=== PATIENT | female | born 1945 | race Caucasian/White ===

== ENCOUNTER 2020-04-08 09:17 | Inpatient (IN) | payer OTHER ==
[2020-04-08] MEDS ORDERED: SODIUM CHLORIDE 1,000 ML IV STA ×2 (09:29→12:26)
--- NOTE | 2020-04-08 09:40 | PDOC ---
History of Present Illness - General Chief Complaint: Altered Mental Status Stated Complaint: UNRESPONSIVE Time Seen by Provider: 04/08/20 09:33 - History of Present Illness Initial Comments: Limited 2/2 patient clinical condition. Slime Mcadams is a 74 y/o female with PMH significant for ESRD on dialysis (), a-fib, COPD, hypothyroidism, ?bipolar, ?schizoaffective, BIBEMS today [facility]. Unsure of when she was last seen well. She went to dialysis on and was at her baseline. Seen at this facility night s/p fall. CT head/neck/pelvis was wnl. Past History - Medical History Allergies/Adverse Reactions: Allergies Allergy/AdvReac Type Severity Reaction Status Date / Time ciprofloxacin Allergy Verified 04/08/20 09:39 denosumab Allergy Verified 04/08/20 09:39 gabapentin Allergy Verified 04/08/20 09:39 levofloxacin Allergy Verified 04/08/20 09:39 NSAIDS (Non-Steroidal Allergy Verified 04/08/20 09:39 Anti-Inflamma sulfamethoxazole Allergy Verified 04/08/20 09:39 trimethoprim Allergy Verified 04/08/20 09:39 tape AdvReac Uncoded 04/08/20 09:39 Home Medications: Ambulatory Orders Acetaminophen [Non-Aspirin Extra Strength] 1,000 mg PO BID 04/08/20 Amlodipine Besylate [Norvasc -] 10 mg PO DAILY 04/08/20 Aripiprazole 30 mg PO DAILY 04/08/20 Calcium Acetate 2 tab PO DAILY 04/08/20 Carbamazepine [Carbamazepine ER] 300 mg PO BID 04/08/20 Cyclobenzaprine HCl 2 tab PO DAILY 04/08/20 Febuxostat [Uloric -] 80 mg PO DAILY 04/08/20 Furosemide 80 mg PO DAILY 04/08/20 Multivitamin 1 each PO DAILY 04/08/20 Pantoprazole Sodium [Protonix] 40 mg PO DAILY 04/08/20 Pramipexole Di-HCl [Mirapex] 0.5 mg PO TID 04/08/20 Pravastatin Sodium [Pravachol (Nf)] 40 mg PO HS 04/08/20 Quetiapine Fumarate [Quetiapine Fumarate ER] 200 mg PO DAILY 04/08/20 Quetiapine Fumarate [Seroquel -] 100 mg PO DAILY 04/08/20 Quetiapine Fumarate [Seroquel -] 400 mg PO HS 04/08/20 Sevelamer Carbonate 800 mg PO DAILY 04/08/20 hydrOXYzine PAMOATE [Vistaril -] 50 mg PO TID 04/08/20 propRANOLol HCL [Propranolol HCl ER] 120 mg PO BID 04/08/20 Cancer: Yes Cardiac Disorders: Yes CVA: Yes COPD: Yes CHF: Yes HTN: Yes Hypercholesterolemia: Yes - Reproductive History Is Patient Now?: No - Immunization History Immunization Up to Date: No - Psycho-Social/Smoking History Smoking History: Unknown if ever smoked Have you smoked in the past 12 months: No - Substance Abuse Hx (Audit-C & DAST Scrn) In the last yr the pt used illegal drug/Rx for NonMed reason: No Score: Yes response is considered Positive: 0 Screen Result (Positive result requires Nsg. DAST-10): Negative Review of Systems - Review of Systems Able to Perform ROS?: No (AMS, clinical condition) *Physical Exam - Vital Signs Last Vital Signs Temp Pulse Resp BP Pulse Ox 95.8 F L 16 L 75 H 126/90 04/08/20 09:24 04/08/20 09:24 04/08/20 09:24 04/08/20 09:24 - Physical Exam GENERAL: Arousable to painful stimuli, in no obvious distress HEAD: No signs of trauma, normocephalic, atraumatic, no racoon's eyes or sky signs. EYES: PERRLA, sclera anicteric, conjunctiva clear_ ENT: nares patent, oropharynx clear without exudates. No uvular deviation. Moist mucosa_ NECK: Normal ROM, supple, no lymphadenopathy, JVD, or masses. No obvious neck trauma. LUNGS: No distress, diffuse wheezes in bilateral lung connell. HEART: Regular rate and rhythm, normal S1 and S2, no murmurs appreciated, peripheral pulses normal and equal bilaterally._ ABDOMEN: Soft, obese, nontender. No guarding, no rebound. No masses_ EXTREMITIES: Large ecchymosis overlying left hip. NEUROLOGICAL: Unable to assess SKIN: Warm, Dry ED Treatment Course - LABORATORY CBC & Chemistry Diagram: 04/09/20 02:42 04/08/20 09:30 Medical Decision Making - Medical Decision Making 04/08/20 09:40 74F on dialysis, hx of a-fib, BIBEMS today for altered mental status and lethargy. -cbc, cmp -ekg, trop, cxr -CT head/neck -CT chest/abd/pelv -lactic -tsh -coags -abg 04/08/20 10:11 EKG shows 71 bpm, a-fib, no axis deviation, QRS 96, QTc 497, no ST elevation/depression. Prior EKG 04/07/2020 reviewed, no significant interval change. 04/08/20 10:26 D/w [place] Pending sale to [facility]. Left arm is safe to use for access. Last seen well at 7am. Altered around 8:45am. [facility] ([phone]) 04/08/20 11:27 Labs reviewed. Will transfuse 1 u pRBC Laboratory Last Values WBC 6.4 K/mm3 (4.0-10.0) 04/08/20 09:30 RBC 1.69 M/mm3 (3.60-5.2) L 04/08/20 09:30 Hgb 5.6 GM/dL (10.7-15.3) L* 04/08/20 09:30 Hct 17.5 % (32.4-45.2) L 04/08/20 09:30 MCV 103.8 fl (80-96) H 04/08/20 09:30 MCH 33.1 pg (25.7-33.7) 04/08/20 09:30 MCHC 31.8 g/dl (32.0-36.0) L 04/08/20 09:30 RDW 17.9 % (11.6-15.6) H 04/08/20 09:30 Plt Count 92 K/MM3 (134-434) L 04/08/20 09:30 MPV 11.0 fl (7.5-11.1) 04/08/20 09:30 Absolute Neuts (auto) 5.0 K/mm3 (1.5-8.0) 04/08/20 09:30 Neutrophils % 77.7 % (42.8-82.8) 04/08/20 09:30 Lymphocytes % 10.2 % (8-40) 04/08/20 09:30 Monocytes % 9.4 % (3.8-10.2) 04/08/20 09:30 Eosinophils % 1.7 % (0-4.5) 04/08/20 09:30 Basophils % 1.0 % (0-2.0) 04/08/20 09:30 Nucleated RBC % 0 % (0-0) 04/08/20 09:30 PT with INR 14.50 SEC (9.7-13.0) H 04/08/20 09:30 INR 1.23 (0.83-1.09) H 04/08/20 09:30 PTT (Actin FS) 29.9 SECONDS (25.2-36.5) 04/08/20 09:30 Anticoagulation Therapy No Result Required. 04/08/20 09:30 Puncture Site No Result Required. 04/08/20 09:30 Patient Temperature No Result Required. 04/08/20 09:30 ABG pH 7.386 (7.350-7.450) 04/08/20 09:30 ABG pCO2 42.50 mmHg (35-45) 04/08/20 09:30 ABG pO2 87.0 mmHg (80-100) 04/08/20 09:30 ABG HCO3 24.9 mmol/L (22-27) 04/08/20 09:30 ABG O2 Sat (Measured) 96.5 mmHg (95-98) 04/08/20 09:30 ABG O2 Content No Result Required. 04/08/20 09:30 ABG Base Excess -0.1 mmol/L (-2-2) 04/08/20 09:30 Sean Test No Result Required. 04/08/20 09:30 Patient On Oxygen No Result Required. 04/08/20 09:30 O2 Delivery Device No Result Required. 04/08/20 09:30 Oxygen Flow Rate No Result Required. 04/08/20 09:30 Vent Mode No Result Required. 04/08/20 09:30 Vent Rate No Result Required. 04/08/20 09:30 Mechanical Rate No Result Required. 04/08/20 09:30 PEEP No Result Required. 04/08/20 09:30 Pressure Support Vent No Result Required. 04/08/20 09:30 Sodium 138 mmol/L (136-145) 04/08/20 09:30 Potassium 4.0 mmol/L (3.5-5.1) 04/08/20 09:30 Chloride 102 mmol/L (98-107) 04/08/20 09:30 Carbon Dioxide 29 mmol/L (21-32) 04/08/20 09:30 Anion Gap 8 MMOL/L (8-16) 04/08/20 09:30 BUN 42.9 mg/dL (7-18) H 04/08/20 09:30 Creatinine 6.7 mg/dL (0.55-1.3) H 04/08/20 09:30 Est GFR (CKD-EPI)AfAm 6.54 04/08/20 09:30 Est GFR (CKD-EPI)NonAf 5.64 04/08/20 09:30 Random Glucose 94 mg/dL (74-106) 04/08/20 09:30 Calcium 7.4 mg/dL (8.5-10.1) L 04/08/20 09:30 Total Bilirubin 1.0 mg/dL (0.2-1) 04/08/20 09:30 AST 14 U/L (15-37) L 04/08/20 09:30 ALT 11 U/L (13-61) L 04/08/20 09:30 Alkaline Phosphatase 64 U/L (45-117) 04/08/20 09:30 Creatine Kinase 45 U/L (26-192) 04/08/20 09:30 Troponin I 0.03 ng/ml (0.00-0.05) 04/08/20 09:30 Total Protein 4.8 g/dl (6.4-8.2) L 04/08/20 09:30 Albumin 2.3 g/dl (3.4-5.0) L 04/08/20 09:30 TSH 4.23 uIU/ml (0.358-3.74) H 04/08/20 09:30 CXR shows no acute intrathoracic pathology and no significant interval change compared to prior on 04/07/2020. 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 Lemus [phone] 04/08/20 13:00 Labs reviewed. Laboratory Last Values WBC 6.3 K/mm3 (4.0-10.0) 04/08/20 11:45 RBC 1.67 M/mm3 (3.60-5.2) L 04/08/20 11:45 Hgb 5.7 GM/dL (10.7-15.3) L* 04/08/20 11:45 Hct 17.6 % (32.4-45.2) L 04/08/20 11:45 MCV 105.5 fl (80-96) H 04/08/20 11:45 MCH 34.2 pg (25.7-33.7) H 04/08/20 11:45 MCHC 32.4 g/dl (32.0-36.0) 04/08/20 11:45 RDW 17.9 % (11.6-15.6) H 04/08/20 11:45 Plt Count 88 K/MM3 (134-434) L 04/08/20 11:45 MPV 11.4 fl (7.5-11.1) H 04/08/20 11:45 Absolute Neuts (auto) 4.6 K/mm3 (1.5-8.0) 04/08/20 11:45 Neutrophils % 72.2 % (42.8-82.8) 04/08/20 11:45 Lymphocytes % 13.1 % (8-40) D 04/08/20 11:45 Monocytes % 12.2 % (3.8-10.2) H 04/08/20 11:45 Eosinophils % 1.7 % (0-4.5) 04/08/20 11:45 Basophils % 0.8 % (0-2.0) 04/08/20 11:45 Nucleated RBC % 1 % (0-0) H 04/08/20 11:45 PT with INR 14.50 SEC (9.7-13.0) H 04/08/20 09:30 INR 1.23 (0.83-1.09) H 04/08/20 09:30 PTT (Actin FS) 29.9 SECONDS (25.2-36.5) 04/08/20 09:30 Anticoagulation Therapy No Result Required. 04/08/20 09:30 Puncture Site No Result Required. 04/08/20 09:30 Patient Temperature No Result Required. 04/08/20 09:30 ABG pH 7.386 (7.350-7.450) 04/08/20 09:30 ABG pCO2 42.50 mmHg (35-45) 04/08/20 09:30 ABG pO2 87.0 mmHg (80-100) 04/08/20 09:30 ABG HCO3 24.9 mmol/L (22-27) 04/08/20 09:30 ABG O2 Sat (Measured) 96.5 mmHg (95-98) 04/08/20 09:30 ABG O2 Content No Result Required. 04/08/20 09:30 ABG Base Excess -0.1 mmol/L (-2-2) 04/08/20 09:30 Sean Test No Result Required. 04/08/20 09:30 Patient On Oxygen No Result Required. 04/08/20 09:30 O2 Delivery Device No Result Required. 04/08/20 09:30 Oxygen Flow Rate No Result Required. 04/08/20 09:30 Vent Mode No Result Required. 04/08/20 09:30 Vent Rate No Result Required. 04/08/20 09:30 Mechanical Rate No Result Required. 04/08/20 09:30 PEEP No Result Required. 04/08/20 09:30 Pressure Support Vent No Result Required. 04/08/20 09:30 Sodium 138 mmol/L (136-145) 04/08/20 09:30 Potassium 4.0 mmol/L (3.5-5.1) 04/08/20 09:30 Chloride 102 mmol/L (98-107) 04/08/20 09:30 Carbon Dioxide 29 mmol/L (21-32) 04/08/20 09:30 Anion Gap 8 MMOL/L (8-16) 04/08/20 09:30 BUN 42.9 mg/dL (7-18) H 04/08/20 09:30 Creatinine 6.7 mg/dL (0.55-1.3) H 04/08/20 09:30 Est GFR (CKD-EPI)AfAm 6.54 04/08/20 09:30 Est GFR (CKD-EPI)NonAf 5.64 04/08/20 09:30 Random Glucose 94 mg/dL (74-106) 04/08/20 09:30 Calcium 7.4 mg/dL (8.5-10.1) L 04/08/20 09:30 Total Bilirubin 1.0 mg/dL (0.2-1) 04/08/20 09:30 AST 14 U/L (15-37) L 04/08/20 09:30 ALT 11 U/L (13-61) L 04/08/20 09:30 Alkaline Phosphatase 64 U/L (45-117) 04/08/20 09:30 Creatine Kinase 45 U/L (26-192) 04/08/20 09:30 Troponin I 0.03 ng/ml (0.00-0.05) 04/08/20 09:30 Total Protein 4.8 g/dl (6.4-8.2) L 04/08/20 09:30 Albumin 2.3 g/dl (3.4-5.0) L 04/08/20 09:30 TSH 4.23 uIU/ml (0.358-3.74) H 04/08/20 09:30 Blood Type O POSITIVE 04/08/20 11:45 Crossmatch See Detail 04/08/20 11:45 04/08/20 15:39 Conrad (brother) [phone] 04/08/20 15:47 D/w [employer] Cecil. Will repeat CBC after transfusion 04/08/20 17:00 Labs reviewed. Laboratory Last Values WBC 8.6 K/mm3 (4.0-10.0) 04/08/20 16:20 RBC 2.10 M/mm3 (3.60-5.2) L 04/08/20 16:20 Hgb 6.9 GM/dL (10.7-15.3) L* 04/08/20 16:20 Hct 20.9 % (32.4-45.2) L D 04/08/20 16:20 MCV 99.3 fl (80-96) H D 04/08/20 16:20 MCH 33.0 pg (25.7-33.7) 04/08/20 16:20 MCHC 33.3 g/dl (32.0-36.0) 04/08/20 16:20 RDW 18.9 % (11.6-15.6) H 04/08/20 16:20 Plt Count 92 K/MM3 (134-434) L 04/08/20 16:20 MPV 11.0 fl (7.5-11.1) 04/08/20 16:20 Absolute Neuts (auto) 6.7 K/mm3 (1.5-8.0) 04/08/20 16:20 Neutrophils % 78.1 % (42.8-82.8) 04/08/20 16:20 Lymphocytes % 9.7 % (8-40) D 04/08/20 16:20 Monocytes % 11.0 % (3.8-10.2) H 04/08/20 16:20 Eosinophils % 0.8 % (0-4.5) 04/08/20 16:20 Basophils % 0.4 % (0-2.0) 04/08/20 16:20 Nucleated RBC % 0 % (0-0) 04/08/20 16:20 Hypochromia 0 04/08/20 11:45 Platelet Estimate Decreased 04/08/20 11:45 Polychromasia 1+ 04/08/20 11:45 Poikilocytosis 1+ 04/08/20 11:45 Anisocytosis 2+ 04/08/20 11:45 Microcytosis 2+ 04/08/20 11:45 Macrocytosis 0 04/08/20 11:45 PT with INR 14.50 SEC (9.7-13.0) H 04/08/20 09:30 INR 1.23 (0.83-1.09) H 04/08/20 09:30 PTT (Actin FS) 29.9 SECONDS (25.2-36.5) 04/08/20 09:30 Anticoagulation Therapy No Result Required. 04/08/20 09:30 Puncture Site No Result Required. 04/08/20 09:30 Patient Temperature No Result Required. 04/08/20 09:30 ABG pH 7.386 (7.350-7.450) 04/08/20 09:30 ABG pCO2 42.50 mmHg (35-45) 04/08/20 09:30 ABG pO2 87.0 mmHg (80-100) 04/08/20 09:30 ABG HCO3 24.9 mmol/L (22-27) 04/08/20 09:30 ABG O2 Sat (Measured) 96.5 mmHg (95-98) 04/08/20 09:30 ABG O2 Content No Result Required. 04/08/20 09:30 ABG Base Excess -0.1 mmol/L (-2-2) 04/08/20 09:30 Sean Test No Result Required. 04/08/20 09:30 Patient On Oxygen No Result Required. 04/08/20 09:30 O2 Delivery Device No Result Required. 04/08/20 09:30 Oxygen Flow Rate No Result Required. 04/08/20 09:30 Vent Mode No Result Required. 04/08/20 09:30 Vent Rate No Result Required. 04/08/20 09:30 Mechanical Rate No Result Required. 04/08/20 09:30 PEEP No Result Required. 04/08/20 09:30 Pressure Support Vent No Result Required. 04/08/20 09:30 Sodium 138 mmol/L (136-145) 04/08/20 09:30 Potassium 4.0 mmol/L (3.5-5.1) 04/08/20 09:30 Chloride 102 mmol/L (98-107) 04/08/20 09:30 Carbon Dioxide 29 mmol/L (21-32) 04/08/20 09:30 Anion Gap 8 MMOL/L (8-16) 04/08/20 09:30 BUN 42.9 mg/dL (7-18) H 04/08/20 09:30 Creatinine 6.7 mg/dL (0.55-1.3) H 04/08/20 09:30 Est GFR (CKD-EPI)AfAm 6.54 04/08/20 09:30 Est GFR (CKD-EPI)NonAf 5.64 04/08/20 09:30 Random Glucose 94 mg/dL (74-106) 04/08/20 09:30 Calcium 7.4 mg/dL (8.5-10.1) L 04/08/20 09:30 Total Bilirubin 1.0 mg/dL (0.2-1) 04/08/20 09:30 AST 14 U/L (15-37) L 04/08/20 09:30 ALT 11 U/L (13-61) L 04/08/20 09:30 Alkaline Phosphatase 64 U/L (45-117) 04/08/20 09:30 Creatine Kinase 45 U/L (26-192) 04/08/20 09:30 Troponin I 0.03 ng/ml (0.00-0.05) 04/08/20 09:30 Total Protein 4.8 g/dl (6.4-8.2) L 04/08/20 09:30 Albumin 2.3 g/dl (3.4-5.0) L 04/08/20 09:30 TSH 4.23 uIU/ml (0.358-3.74) H 04/08/20 09:30 Blood Type O POSITIVE 04/08/20 11:45 Antibody Screen Negative 04/08/20 11:45 Crossmatch See Detail 04/08/20 11:45 04/08/20 18:10 Case d/w [employer] Cecil White and Dr. Melara. Pt will go to ICU. 04/08/20 18:29 CT head negative for acute intracranial pathology. 04/08/20 18:47 CT chest: Scattered atelectasis and fibrotic changes throughout the lungs. No acute lung contusion or pneumothorax. No significant pleural effusions. Cardiomegaly without significant pericardial effusion. Right axillary stent. No acute fracture. Surgical changes in left breast. Moderate kyphosis. CT abdomen and pelvis: Prior gastric bypass surgery. Mild perihepatic fluid. Distended gallbladder with small layering gallstones. Pancreatic atrophy with steatosis. Adrenal glands and spleen are unremarkable. Bilateral renal atrophy with nonobstructing bilateral intrarenal calculi. No ureteral calculi or hydronephrosis. No AAA. Indwelling Tran catheter in the bladder. Rectal catheter. No obvious diverticulitis. No small bowel obstruction or free air. Moderate anasarca. *Moderate hematomas in the left gluteal subcutaneous fat. *9.5 cm x 4.8 cm well-circumscribed fluid collection in the right groin, incompletely visualized. It may represent a hematoma, seroma, or abscess. No acute fracture visualized. Discharge - Discharge Information Problems reviewed: Yes Clinical Impression/Diagnosis: Altered mental status, Anemia Condition: Guarded - Admission Yes - Follow up/Referral - Patient Discharge Instructions - Post Discharge Activity
--- NOTE | 2020-04-08 09:54 | PDOC ---
Documentation entered by Fozia Alvarez SCRIBE, acting as scribe for Lyric Cedillo MD. Lyric Cedillo MD: This documentation has been prepared by the scribe, Fozia Noble SCRIBE, under my direction and personally reviewed by me in its entirety. I confirm that the documentation accurately reflects all work, treatment, procedures, and medical decision making performed by me. Attending Attestation - Resident Resident Name: Bakari Keyes - ED Attending Attestation I have performed the following: I have examined & evaluated the patient, The case was reviewed & discussed with the resident, I agree w/resident's findings & plan, Exceptions are as noted - HPI HPI: 04/08/20 10:09 The patient is a 74 year old female with a significant PMH of ESRD (), afib, COPD, hypothyroidism and schizophrenia who presents to the ED [facility] from [facility] for evaluation of hypotension after found to be altered at [place]. Last known well is unknown. Patient was in the ED yesterday (came in night) for evaluation of "difficulty breathing" and a fall 3 days ago, all CT scans were negative. Patient was seen at baseline on at Dialysis. Patient is a poor historian due to clinial condition, unable to give history. Proxy (brother) - Conrad Mcadams Allergies:Per EMR PCP: Rose - Physicial Exam PE: GENERAL: Awake, appears uncomfortable. Answers some questions, limited responses, however. Appears pale HEAD: No signs of trauma EYES: PERRLA, EOMI, sclera anicteric, conjunctiva clear ENT: Auricles normal inspection, hearing grossly normal, nares patent, oropharynx clear without exudates. Dry mucosa NECK: Normal ROM, supple, no lymphadenopathy, JVD, or masses LUNGS: Breath sounds equal, clear to auscultation bilaterally. No wheezes, and no crackles HEART: Irregularly irregular, normal S1 and S2, no murmurs, rubs or gallops ABDOMEN: Soft, nontender, normoactive bowel sounds. No guarding, no rebound. No masses EXTREMITIES: Normal range of motion, no edema. No clubbing or cyanosis. No cords. +Large ecchymosis to the L thigh and buttock, firm to palpation. R upper arm with palpable firm AVF, no thrill. L upper arm with AVF, +palpable thrill. IV in place to L AC (placed prior to arrival by EMS) NEUROLOGICAL: Cranial nerves II through XII grossly intact. Limited speech. Motor and sensation intact SKIN: Warm, dry, normal turgor, no rashes. - Medical Decision Making 04/08/20 09:52 Pt noted to be hypothermic. Hypotensive on EMS arrival at the [facility]. Sepsis workup initiated. Will check CK due to large ecchymosis to the L thigh, r/o rhabdomyolysis. 04/08/20 16:25 Late entry. Patient with anemia, likely due to large hematoma to the L thigh. Pt has had multiple instances of hypotension. Will add CT chest and a/p in light of recent trauma. As the fall was 4 days ago, unlikely that it will be positive. The hematoma and sepsis are more likely causes of hypotension, however, must r/o free fluid in the chest and abdomen. Bedside FAST is negative. Discharge - Discharge Information Problems reviewed: Yes Clinical Impression/Diagnosis: Altered mental status Qualifiers: Altered mental status type: unspecified Qualified Code(s): R41.82 - Altered mental status, unspecified Anemia Qualifiers: Anemia type: unspecified type Qualified Code(s): D64.9 - Anemia, unspecified Condition: Guarded - Follow up/Referral - Patient Discharge Instructions - Post Discharge Activity
[2020-04-08 10:24] LABS: INR 1.23 (0.83-1.09); PROTHROMBIN TIME (PATIENT) 14.5 SEC (9.7-13.0)
[2020-04-08 10:27] LABS: ACTIVATED PTT 29.9 SECONDS (25.2-36.5)
[2020-04-08 10:44] LABS: ARTERIAL BLD GAS O2 SATURATION 96.5 mmHg (95-98); ARTERIAL BLOOD GAS BASE EXCESS -0.1 mmol/L (-2-2); ARTERIAL BLOOD GAS pH 7.386 (7.350-7.450)
[2020-04-08 10:46] LABS: ALBUMIN 2.3 g/dl (3.4-5.0); BLOOD UREA NITROGEN 42.9 mg/dL (7-18); CALCIUM 7.4 mg/dL (8.5-10.1); CREATININE 6.7 mg/dL (0.55-1.3); TOT PROT 4.8 g/dl (6.4-8.2)
[2020-04-08 11:02] LABS: EOS % 1.7 % (0-4.5); HEMATOCRIT 17.5 % (32.4-45.2); LYMPH % 10.2 % (8-40); MCH 33.1 pg (25.7-33.7); MCHC 31.8 g/dl (32.0-36.0); MEAN CELL VOLUME 103.8 fl (80-96); MONO % 9.4 % (3.8-10.2); NEUT % 77.7 % (42.8-82.8); PLATELET COUNT 92 K/MM3 (134-434); RBC 1.69 M/mm3 (3.60-5.2); RDW 17.9 % (11.6-15.6); WHITE BLOOD COUNT 6.4 K/mm3 (4.0-10.0)
[2020-04-08 11:15] LABS: HEMOGLOBIN 5.6 GM/dL (10.7-15.3)
[2020-04-08 12:09] LABS: BASO % 0.8 % (0-2.0); EOS % 1.7 % (0-4.5); HEMATOCRIT 17.6 % (32.4-45.2); LYMPH % 13.1 % (8-40); MCH 34.2 pg (25.7-33.7); MCHC 32.4 g/dl (32.0-36.0); MEAN CELL VOLUME 105.5 fl (80-96); MEAN PLT VOLUME 11.4 fl (7.5-11.1); MONO % 12.2 % (3.8-10.2); NEUT % 72.2 % (42.8-82.8); PLATELET COUNT 88 K/MM3 (134-434); RBC 1.67 M/mm3 (3.60-5.2); RDW 17.9 % (11.6-15.6); WHITE BLOOD COUNT 6.3 K/mm3 (4.0-10.0)
[2020-04-08 12:25] LABS: HEMOGLOBIN 5.7 GM/dL (10.7-15.3)
[2020-04-08 14:32] LABS: ANISOCYTOSIS 2+; MACROCYTOSIS 0; PLATELET ESTIMATE DECREASED
[2020-04-08 16:50] LABS: BASO % 0.4 % (0-2.0); EOS % 0.8 % (0-4.5); HEMATOCRIT 20.9 % (32.4-45.2); LYMPH % 9.7 % (8-40); MCHC 33.3 g/dl (32.0-36.0); MEAN CELL VOLUME 99.3 fl (80-96); NEUT % 78.1 % (42.8-82.8); PLATELET COUNT 92 K/MM3 (134-434); RDW 18.9 % (11.6-15.6); WHITE BLOOD COUNT 8.6 K/mm3 (4.0-10.0)
[2020-04-08 16:54] LABS: HEMOGLOBIN 6.9 GM/dL (10.7-15.3)
--- NOTE | 2020-04-08 17:19 | CONSULT ---
Consult - text type - Consultation Consultation Note: CCM consult for ICU request Request from Dr Keyes, ER Resident Reason for ICU consult: hypotension and anemia CC: L thigh/hip pain HPI: Briefly Ms Mcadams is a 74 y/o female with PMH significant for ESRD on dialysis (//), a-fib not on anticoagulation, COPD, hypothyroidism, psych hx who ambulates with walker today sent in from [facility] via ambulance for altered mentation. Apparently pt had a mechanical fall on this week, landing on her L side. CT head/neck and pelvis were wnl. She was able to tolerate dialysis on . Today she seemed more lethargic prompting [place] to send her to ER. In ED pt was afebrile, pale, noted to have large ecchymosis on L hip to mid thigh. BP was labile and difficult to determine accuracy (taken on legs due to AVF in both arms) but often in 70/30 range. IV access was obtained and pt given 1 L IVF with some improvement. Hgb was 5.6 (down from unk baseline but pt relates chronic anemia) and confirmed on repeat. There was no hx of melena, BRBPR, hematemesis or other hx for occult bleeding. PRBC ordered and transfused with appropriate bump to 6.9, another unit being ordered. BP cont to be labile but improved and pt mental status improved markedly. She is not in distress, not tachycardic, denies worsening pain, denies SOB or dizziness. Discussed plan with senior resident who agrees that patient can be admitted to floor with plan for another PRBC to be infused. [facility] medicine available for reconsultation if patient worsens, fails to respond to transfusion. Vital Signs Temp 98.3 F 04/08/20 16:45 Pulse 76 04/08/20 16:45 Resp 17 04/08/20 16:45 BP 65/48 L 04/08/20 16:45 Pulse Ox 98 04/08/20 14:11 Intake & Output 04/07/20 04/08/20 04/08/20 23:59 11:59 23:59 Intake Total 1200 1400 Balance 1200 1400 Weight 77.564 kg Intake: IV 1200 1000 Normal Saline - 1,000 ml 1200 @ 1000 mls/hr IV ASDIR STA Rx#:[id number] Normal Saline - 1,000 ml 1000 @ 1000 mls/hr IV ASDIR STA Rx#:[id number] IVPB 50 Packed Cells 350 Other: Height 5 ft 2 in Body Mass Index (BMI) 31.2 Allergies Allergy/AdvReac Type Severity Reaction Status Date / Time ciprofloxacin Allergy Verified 04/08/20 09:39 denosumab Allergy Verified 04/08/20 09:39 gabapentin Allergy Verified 04/08/20 09:39 levofloxacin Allergy Verified 04/08/20 09:39 NSAIDS (Non-Steroidal Allergy Verified 04/08/20 09:39 Anti-Inflamma sulfamethoxazole Allergy Verified 04/08/20 09:39 trimethoprim Allergy Verified 04/08/20 09:39 tape AdvReac Uncoded 04/08/20 09:39 Ambulatory Orders Acetaminophen [Non-Aspirin Extra Strength] 1,000 mg PO BID 04/08/20 Amlodipine Besylate [Norvasc -] 10 mg PO DAILY 04/08/20 Aripiprazole 30 mg PO DAILY 04/08/20 Calcium Acetate 2 tab PO DAILY 04/08/20 Carbamazepine [Carbamazepine ER] 300 mg PO BID 04/08/20 Cyclobenzaprine HCl 2 tab PO DAILY 04/08/20 Febuxostat [Uloric -] 80 mg PO DAILY 04/08/20 Furosemide 80 mg PO DAILY 04/08/20 Multivitamin 1 each PO DAILY 04/08/20 Pantoprazole Sodium [Protonix] 40 mg PO DAILY 04/08/20 Pramipexole Di-HCl [Mirapex] 0.5 mg PO TID 04/08/20 Pravastatin Sodium [Pravachol (Nf)] 40 mg PO HS 04/08/20 Quetiapine Fumarate [Quetiapine Fumarate ER] 200 mg PO DAILY 04/08/20 Quetiapine Fumarate [Seroquel -] 100 mg PO DAILY 04/08/20 Quetiapine Fumarate [Seroquel -] 400 mg PO DAILY 04/08/20 Quetiapine Fumarate [Seroquel -] 800 mg PO HS 04/08/20 Sevelamer Carbonate 800 mg PO DAILY 04/08/20 hydrOXYzine PAMOATE [Vistaril -] 50 mg PO TID 04/08/20 propRANOLol HCL [Propranolol HCl ER] 120 mg PO BID 04/08/20 CBC, BMP 04/08/20 16:20 04/08/20 09:30 ROS: -not fully able to participate but denies chest pain, shortness of breath, syncope. PE: Gen; pale but non toxic, non distressed woman HEENT: L conjunctival hemmorage (pt relates been since fall), grossly atraumatic, neck supple to baseline, PERRL PULM: clear anterior, diminished bases CV: irreg, no m/r/g appreciated ABD: obese, mild diffuse tender, no rebound or guarding Pelvis: ecchymosis at L mid thigh to illiac crest, no instablilty Ext: dependent edema, 1+ pulses Neuro: awake, slightly disoriented and argumentative but able to maintain conversation (unclear but seems likely her psych baseline) A/ 74 y/o woman erma acute on chronic anemia from mechanical fall on with ecchymosis at L hip. Pt has appropriate response to transfusion, is clinically improved and likely no longer actively bleeding -transfuse 1 more PRBC with repeat CBC -repeat imaging for fx/source of bleeding -pain management -restart psych meds - hold propranolol -rest of care per primary team CCM available for acute changes/deterioration
--- NOTE | 2020-04-08 19:42 | CONSULT ---
Consult Consult Specialty:: Pulm/CCM Reason for Consultation:: Anemia; HYpotension - History of Present Illness Chief Complaint: Left hip and thigh pain History of Present Illness: Briefly Ms Mcadams is a 74 y/o female with PMH significant for ESRD on dialysis (), a-fib not on anticoagulation, COPD, hypothyroidism, psych hx who ambulates with walker. Today sent in from [facility] via ambulance for altered mentation. Pt had a mechanical fall on this week, landing on her L side. CT head/neck and pelvis were wnl. She was able to tolerate dialysis on . Today she seemed more lethargic prompting NM to send her to ER. In ED pt was afebrile, pale, noted to have large ecchymosis on L hip to mid thigh. BP was labile and difficult to determine accuracy (taken on legs due to AVF in both arms) but often in 70/30 range. IV access was obtained and pt given 1 L IVF with some improvement. Hgb was 5.6 (down from unk baseline but pt r elates chronic anemia) and confirmed on repeat. There was no hx of melena, BRBPR, hematemesis or other hx for occult bleeding. PRBC ordered and transfused with appropriate bump to 6.9, another unit being ordered. BP cont to be labile but improved and pt mental status improved markedly. She is not in distress, not tachycardic, denies worsening pain, denies SOB or dizziness. Discussed plan with senior resident who initially agreed that patient can be admitted to floor with plan for another PRBC to be infused. Given persistent anemia and hypotension put was transferred to the ICU. - History Source History Provided By: Patient, Medical Record Limitations to Obtaining History: Poor Historian - Past Medical History Cardio/Vascular: Yes: AFIB, HTN, Hyperlipdemia Pulmonary: Yes: COPD Gastrointestinal: Yes: GERD, Peptic Ulcer Disease Renal/: Yes: Renal Failure, Hemodialysis ...LMP: 04/08/20 ...: No Heme/Onc: Yes: Anemia, Other (Breast Cancer s/p bilat lumpectomy) Psych: Yes: Bipolar, Other Musculoskeletal: Yes: Chronic low back pain Endocrine: Yes: Hypothyroidism - Smoking History Smoking history: Unknown if ever smoked Have you smoked in the past 12 months: No Home Medications - Allergies Allergies/Adverse Reactions: Allergies Allergy/AdvReac Type Severity Reaction Status Date / Time ciprofloxacin Allergy Verified 04/08/20 09:39 denosumab Allergy Verified 04/08/20 09:39 gabapentin Allergy Verified 04/08/20 09:39 levofloxacin Allergy Verified 04/08/20 09:39 NSAIDS (Non-Steroidal Allergy Verified 04/08/20 09:39 Anti-Inflamma sulfamethoxazole Allergy Verified 04/08/20 09:39 trimethoprim Allergy Verified 04/08/20 09:39 tape AdvReac Uncoded 04/08/20 09:39 - Home Medications Home Medications: Ambulatory Orders Acetaminophen [Non-Aspirin Extra Strength] 1,000 mg PO BID 04/08/20 Amlodipine Besylate [Norvasc -] 10 mg PO DAILY 04/08/20 Aripiprazole 30 mg PO DAILY 04/08/20 Calcium Acetate 2 tab PO DAILY 04/08/20 Carbamazepine [Carbamazepine ER] 300 mg PO BID 04/08/20 Cyclobenzaprine HCl 2 tab PO DAILY 04/08/20 Febuxostat [Uloric -] 80 mg PO DAILY 04/08/20 Furosemide 80 mg PO DAILY 04/08/20 Multivitamin 1 each PO DAILY 04/08/20 Pantoprazole Sodium [Protonix] 40 mg PO DAILY 04/08/20 Pramipexole Di-HCl [Mirapex] 0.5 mg PO TID 04/08/20 Pravastatin Sodium [Pravachol (Nf)] 40 mg PO HS 04/08/20 Quetiapine Fumarate [Quetiapine Fumarate ER] 200 mg PO DAILY 04/08/20 Quetiapine Fumarate [Seroquel -] 100 mg PO DAILY 04/08/20 Quetiapine Fumarate [Seroquel -] 400 mg PO HS 04/08/20 Sevelamer Carbonate 800 mg PO DAILY 04/08/20 hydrOXYzine PAMOATE [Vistaril -] 50 mg PO TID 04/08/20 propRANOLol HCL [Propranolol HCl ER] 120 mg PO BID 04/08/20 Family Medical History Family History: Unable to Obtain Review of Systems - Review of Systems Constitutional: reports: No Symptoms Eyes: reports: No Symptoms, Other (Left eye conjunctiva hemorrhage) Neck: reports: Stiffness Cardiovascular: reports: No Symptoms, Shortness of Breath (SOB with exertion) Respiratory: reports: No Symptoms, SOB on Exertion Gastrointestinal: reports: Abdominal Pain Genitourinary: reports: No Symptoms Breasts: reports: No Symptoms Reported Musculoskeletal: reports: Other (Restless legs with iHD) Integumentary: reports: Bruising (Lt hip and upper thigh bruising) Neurological: reports: No Symptoms Endocrine: reports: No Symptoms Hematology/Lymphatic: reports: Easily Bruised Psychiatric: reports: Altered Sleep Pattern, Hallucinations Pain Intensity: 7 Physical Exam Vital Signs: Vital Signs Temperature 98.1 F 04/08/20 18:53 Pulse Rate 80 04/08/20 18:53 Respiratory Rate 14 04/08/20 18:53 Blood Pressure 91/60 04/08/20 18:53 O2 Sat by Pulse Oximetry (%) 95 04/08/20 18:18 Intake & Output 04/05/20 04/06/20 04/07/20 04/08/20 23:59 23:59 23:59 23:59 Intake Total 2600 Balance 2600 Weight 77.564 kg Constitutional: Yes: No Distress, Calm, Pallor Eyes: Yes: Other (Lt eye sclera injected) HENT: Yes: Atraumatic, Normocephalic Neck: Yes: Trachea Midline, Other (stiff) Cardiovascular: Yes: Pulse Irregular, S1, S2 Respiratory: Yes: Regular, Diminished, On Nasal O2 Gastrointestinal: Yes: Soft, Abdomen, Obese ...Rectal Exam: Yes: Deferred Renal/: Yes: Tran Present Breast(s): Yes: Other (scars) Musculoskeletal: Yes: Back Pain, Joint Stiffness, Other (Lt hip pain Bilat A-V fistulas; right non-functioning) Extremities: Yes: Cool Edema: No Peripheral Pulses WNL: Yes Neurological: Yes: Alert, Oriented (Oriented x2; Rambling speech), Lethargy, Other Psychiatric: Yes: Other (Awakens easily) Labs: CBC, BMP 04/08/20 16:20 04/08/20 09:30 CBC,CMP WBC 8.6 K/mm3 (4.0-10.0) 04/08/20 16:20 RBC 2.10 M/mm3 (3.60-5.2) L 04/08/20 16:20 Hgb 6.9 GM/dL (10.7-15.3) L* 04/08/20 16:20 Hct 20.9 % (32.4-45.2) L D 04/08/20 16:20 MCV 99.3 fl (80-96) H D 04/08/20 16:20 MCH 33.0 pg (25.7-33.7) 04/08/20 16:20 MCHC 33.3 g/dl (32.0-36.0) 04/08/20 16:20 RDW 18.9 % (11.6-15.6) H 04/08/20 16:20 Plt Count 92 K/MM3 (134-434) L 04/08/20 16:20 MPV 11.0 fl (7.5-11.1) 04/08/20 16:20 Absolute Neuts (auto) 6.7 K/mm3 (1.5-8.0) 04/08/20 16:20 Neutrophils % 78.1 % (42.8-82.8) 04/08/20 16:20 Lymphocytes % 9.7 % (8-40) D 04/08/20 16:20 Monocytes % 11.0 % (3.8-10.2) H 04/08/20 16:20 Eosinophils % 0.8 % (0-4.5) 04/08/20 16:20 Basophils % 0.4 % (0-2.0) 04/08/20 16:20 Nucleated RBC % 0 % (0-0) 04/08/20 16:20 Hypochromia 0 04/08/20 11:45 Platelet Estimate Decreased 04/08/20 11:45 Polychromasia 1+ 04/08/20 11:45 Poikilocytosis 1+ 04/08/20 11:45 Anisocytosis 2+ 04/08/20 11:45 Microcytosis 2+ 04/08/20 11:45 Macrocytosis 0 04/08/20 11:45 Sodium 138 mmol/L (136-145) 04/08/20 09:30 Potassium 4.0 mmol/L (3.5-5.1) 04/08/20 09:30 Chloride 102 mmol/L (98-107) 04/08/20 09:30 Carbon Dioxide 29 mmol/L (21-32) 04/08/20 09:30 Anion Gap 8 MMOL/L (8-16) 04/08/20 09:30 BUN 42.9 mg/dL (7-18) H 04/08/20 09:30 Creatinine 6.7 mg/dL (0.55-1.3) H 04/08/20 09:30 Est GFR (CKD-EPI)AfAm 6.54 04/08/20 09:30 Est GFR (CKD-EPI)NonAf 5.64 04/08/20 09:30 Random Glucose 94 mg/dL (74-106) 04/08/20 09:30 Calcium 7.4 mg/dL (8.5-10.1) L 04/08/20 09:30 Total Bilirubin 1.0 mg/dL (0.2-1) 04/08/20 09:30 AST 14 U/L (15-37) L 04/08/20 09:30 ALT 11 U/L (13-61) L 04/08/20 09:30 Alkaline Phosphatase 64 U/L (45-117) 04/08/20 09:30 Creatine Kinase 45 U/L (26-192) 04/08/20 09:30 Troponin I 0.03 ng/ml (0.00-0.05) 04/08/20 09:30 Total Protein 4.8 g/dl (6.4-8.2) L 04/08/20 09:30 Albumin 2.3 g/dl (3.4-5.0) L 04/08/20 09:30 TSH 4.23 uIU/ml (0.358-3.74) H 04/08/20 09:30 Problem List - Problems (1) Anemia Code(s): D64.9 - ANEMIA, UNSPECIFIED (2) Pain in hip joint Code(s): M25.559 - PAIN IN UNSPECIFIED HIP (3) Fall Code(s): W19.XXXA - UNSPECIFIED FALL, INITIAL ENCOUNTER (4) Hematoma of thigh Code(s): S70.10XA - CONTUSION OF UNSPECIFIED THIGH, INITIAL ENCOUNTER Assessment/Plan A/ 74 y/o woman with m/l acute on chronic anemia from mechanical fall on with ecchymosis at L hip. Also with hypotension in setting of possible hemorrhage +/- inaccurate monitoring. -Phenylephrine drip prn for MAP>60 -Transfuse 1 more PRBC with repeat CBC -repeat imaging for fx/source of bleeding -Continue PPI and Carafate for peptic ulcers -Monitor for melena -pain management -restart psych meds -hold propranolol and amlodipine Neli Neumann, ACNP
[2020-04-08] MEDS ORDERED: ACETAMINOPHEN 1000 MG/100 ML VIAL (NON FORMULARY) IVPB PRN (21:05)
[2020-04-08] MEDS ORDERED: QUEtiapine FUMARATE 200 MG TABLET PO ONE (22:33)
[2020-04-09] MEDS: PHENYLEPHRINE NS PREMIX 25,000 MCG/250 ML BAG CVP SCH (03:00)
[2020-04-09 03:36] LABS: BASO % 0.4 % (0-2.0); EOS % 0.8 % (0-4.5); HEMATOCRIT 23.1 % (32.4-45.2); HEMOGLOBIN 7.7 GM/dL (10.7-15.3); LYMPH % 8.5 % (8-40); MCH 31.8 pg (25.7-33.7); MCHC 33.1 g/dl (32.0-36.0); MEAN CELL VOLUME 96.2 fl (80-96); MEAN PLT VOLUME 10.5 fl (7.5-11.1); MONO % 10.2 % (3.8-10.2); NEUT % 80.1 % (42.8-82.8); PLATELET COUNT 89 K/MM3 (134-434); RDW 20.1 % (11.6-15.6); WHITE BLOOD COUNT 8.4 K/mm3 (4.0-10.0)
[2020-04-09] MEDS ORDERED: QUEtiapine FUMARATE 200 MG TABLET PO ONE (06:00)
[2020-04-09] MEDS ORDERED: PHENYLEPHRINE HCL 10 MG/1 ML SINGLE DOSE VIAL ONE ×2 (07:19→19:15)
[2020-04-09] MEDS ORDERED: VASOPRESSIN 20 UNITS/ML VIAL IV ONE (08:31)
[2020-04-09] MEDS: VASOPRESSIN 40 UNITS in SODIUM CHLORIDE 98 ML IVPB SCH (09:07)
--- NOTE | 2020-04-09 09:33 | EKG ---
Test Reason : Blood Pressure : / mmHG Vent. Rate : 071 BPM Atrial Rate : 060 BPM P-R Int : 000 ms QRS Dur : 096 ms QT Int : 458 ms P-R-T Axes : 000 -01 192 degrees QTc Int : 497 ms ATRIAL FIBRILLATION CANNOT RULE OUT ANTERIOR INFARCT , AGE UNDETERMINED ABNORMAL ECG WHEN COMPARED WITH ECG OF 07-APR-2020 03:49, QT HAS LENGTHENED Confirmed by Dorita Botello ([id number]) on 04/09/2020 9:33:05 AM Referred By: Confirmed By:Dorita Botello
--- NOTE | 2020-04-09 10:21 | CON.ID ---
Consult Referred by:: instrument designer Reason for Consultation:: positive blood culture - History of Present Illness Chief Complaint: hypotension , weakness History of Present Illness: 74 yo female recently admitted to [place] 04/01 from [facility] after admission for suiciadl idation and refusing dialysis she had a fall and was seen in the ED on 04/07 now she has returned with weakness on low dose pressors no fever or chills notes pain left leg site of fall thinks weakness is form over medication of her psych meds imaging studies on 04/07 negative imaging 04/08 all pending (prelim in ED notes negative) have called radiology and asked to expedite - Past Medical History CHEMICAL PUMPER: Yes: Other (restless legs syndrome) Cardio/Vascular: Yes: AFIB, CAD (nonobstructuve), HTN, Hyperlipdemia Pulmonary: Yes: COPD Gastrointestinal: Yes: GERD, Peptic Ulcer Disease, Other (pud, pancreatic insufficiency) Renal/: Yes: Renal Failure, Hemodialysis ...LMP: 04/08/20 ...: No Heme/Onc: Yes: Cancer (breast) Psych: Yes: Bipolar, Other Musculoskeletal: Yes: Chronic low back pain Endocrine: Yes: Hypothyroidism - Past Surgical History Past Surgical History: Yes: Appendectomy, Tonsillectomy Additional Surgical History: left avg thrombectomy, left breast lumpectomy and node issection. RUE surgerics for vascular access, ORIF right wrist left roattor cuff surgery. cardiac cath 2011, right eye surgery. gastric bypass - Smoking History Smoking history: Unknown if ever smoked Have you smoked in the past 12 months: No - Social History Usual Living Arrangement: [facility]dc ADL: Support Services History of Recent Travel: No Home Medications - Allergies Allergies/Adverse Reactions: Allergies Allergy/AdvReac Type Severity Reaction Status Date / Time ciprofloxacin Allergy Verified 04/08/20 09:39 denosumab Allergy Verified 04/08/20 09:39 gabapentin Allergy Verified 04/08/20 09:39 levofloxacin Allergy Verified 04/08/20 09:39 NSAIDS (Non-Steroidal Allergy Verified 04/08/20 09:39 Anti-Inflamma sulfamethoxazole Allergy Verified 04/08/20 09:39 trimethoprim Allergy Verified 04/08/20 09:39 tape AdvReac Uncoded 04/08/20 09:39 - Home Medications Home Medications: Ambulatory Orders Acetaminophen [Non-Aspirin Extra Strength] 1,000 mg PO BID 04/08/20 Amlodipine Besylate [Norvasc -] 10 mg PO DAILY 04/08/20 Aripiprazole 30 mg PO DAILY 04/08/20 Calcium Acetate 2 tab PO DAILY 04/08/20 Carbamazepine [Carbamazepine ER] 300 mg PO BID 04/08/20 Cyclobenzaprine HCl 2 tab PO DAILY 04/08/20 Febuxostat [Uloric -] 80 mg PO DAILY 04/08/20 Furosemide 80 mg PO DAILY 04/08/20 Multivitamin 1 each PO DAILY 04/08/20 Pantoprazole Sodium [Protonix] 40 mg PO DAILY 04/08/20 Pramipexole Di-HCl [Mirapex] 0.5 mg PO TID 04/08/20 Pravastatin Sodium [Pravachol (Nf)] 40 mg PO HS 04/08/20 Quetiapine Fumarate [Quetiapine Fumarate ER] 200 mg PO DAILY 04/08/20 Quetiapine Fumarate [Seroquel -] 100 mg PO DAILY 04/08/20 Quetiapine Fumarate [Seroquel -] 400 mg PO HS 04/08/20 Sevelamer Carbonate 800 mg PO DAILY 04/08/20 hydrOXYzine PAMOATE [Vistaril -] 50 mg PO TID 04/08/20 propRANOLol HCL [Propranolol HCl ER] 120 mg PO BID 04/08/20 Family Medical History Family History: Unable to Obtain Family Hx Cancer: Father (lung) Family Hx Diabetes: Father Review of Systems - Review of Systems Constitutional: reports: Weakness. denies: Chills, Fever Eyes: reports: No Symptoms HENT: reports: No Symptoms Neck: reports: No Symptoms Cardiovascular: reports: No Symptoms Respiratory: reports: No Symptoms Gastrointestinal: reports: No Symptoms Genitourinary: reports: No Symptoms Breasts: reports: No Symptoms Reported Musculoskeletal: reports: Joint Pain, Muscle Pain Physical Exam Vital Signs: Vital Signs Temperature 97.1 F L 04/09/20 08:00 Pulse Rate 79 04/09/20 09:30 Respiratory Rate 14 04/09/20 09:30 Blood Pressure 113/54 L 04/09/20 09:30 O2 Sat by Pulse Oximetry (%) 98 04/08/20 21:00 Constitutional: Yes: Anxious, Obese Eyes: Yes: Other (conjunctival hemorrhage left eye) HENT: Yes: Atraumatic, Normocephalic Neck: Yes: Supple Cardiovascular: Yes: Regular Rate and Rhythm Respiratory: Yes: Regular, CTA Bilaterally Gastrointestinal: Yes: Normal Bowel Sounds ...Rectal Exam: Yes: Deferred Extremities: Yes: Other (avf in both arms- left with bruit - is being used) Edema: No Integumentary: Yes: Other (large ecchymoses left upper leg extending to back and buttock on the left) Neurological: Yes: Alert, Oriented Labs: CBC, BMP 04/09/20 02:42 04/08/20 09:30 Imaging - Results Chest X-ray: Report Reviewed, Image Reviewed Cat Scan: Pending Problem List - Problems (1) Bacteremia Code(s): R78.81 - BACTEREMIA (2) Fall Code(s): W19.XXXA - UNSPECIFIED FALL, INITIAL ENCOUNTER (3) ESRD (end stage renal disease) on dialysis Code(s): N18.6 - END STAGE RENAL DISEASE; Z99.2 - DEPENDENCE ON RENAL DIALYSIS Assessment/Plan start vancomycin check level in am repeat blood cultures f/u ID echo f/u imaging further reccd to follow
[2020-04-09] MEDS ORDERED: VANCOMYCIN 1 GRAM (PRE-DOCKED) 1,000 MG/250 ML BAG IVPB ONE (10:45)
--- NOTE | 2020-04-09 11:00 | PN ---
Progress Note (short form) - Note Progress Note: PULM/CCM Patient seen and examined in ICU. Patient awake, alert and oriented. Very anxious, c/o abdominal discomfort and b/l LE restless. Hgb stable after transfusion, remains hypertensive requiring pressors. Blood culktures Vital Signs Period Temp Pulse Resp BP Sys/Corbett Pulse Ox Last 24 Hr 96.9 F-98.3 F 68-87 12-25 54-133/27-61 93-98 Intake & Output 04/06/20 04/07/20 04/08/20 04/09/20 23:59 23:59 23:59 23:59 Intake Total 3100 440 Balance 3100 440 Weight 77.564 kg 84.5 kg Eyes: Other (Lt eye sclera injected) HENT: Atraumatic, Normocephalic Neck: Trachea Midline, Other (stiff) Cardiovascular: Pulse Irregular, S1, S2 Respiratory: Regular, Diminished, On Nasal O2 Gastrointestinal: Soft, Abdomen, Obese Renal/: Tran Present Musculoskeletal: Yes: Back Pain, Joint Stiffness, Other (Lt hip pain Bilat A-V fistulas; right non-functioning) Extremities: Cool Edema: No Peripheral Pulses; Yes CBC, BMP 04/09/20 02:42 04/08/20 09:30 A/ Sepsis Bacteremia (gram +cocci and clusters blood cultures 04/09) requiring pr essors s/p mechanical fall ESRD (on HD, T// ) Anemia COPD hypothyroidism a-fib not on anticoagulation -Phenylephrine switched to vasopressin to reduce fluid volume -Titrate pressors for MAP>60 -Keep Hgb >7, Plt>10 -Continue PPI and Carafate for peptic ulcers -Monitor for melena -pain management, Tylenol PRN -Continue psych meds -Hold antihypertensives due to hypotension -Vanco x1 -ID recs appreciated -Trend and replete lytes -For HD in am if able to tolerate due to low BP -Renal recs appreciated Leticia Vazquez, ACNP [id number]
[2020-04-09] MEDS: PANTOPRAZOLE 40 MG TABLET PO SCH (12:00)
--- NOTE | 2020-04-09 12:00 | CON.CARD ---
Consult Consult Specialty:: Cardiology Referred by:: Chester Reason for Consultation:: afib - History of Present Illness Chief Complaint: altered mental status History of Present Illness: Slime Mcadams is a 74 y/o female with PMH significant for ESRD on dialysis (), a-fib not on AC (unclear reason but does fall), COPD, hypothyroidism, biploar/schizoaffective disorder, admitted after she was found with altered mental status, hypotension at the [facility]. She was hypotensive and severely anemic and bacteremic with GPC. Afib rate controlled, troponin negative. - History Source History Provided By: Medical Record - Past Medical History Cardio/Vascular: Yes: AFIB, CAD (nonobstructuve), HTN, Hyperlipdemia Pulmonary: Yes: COPD Gastrointestinal: Yes: GERD, Peptic Ulcer Disease, Other (pud, pancreatic insufficiency) Renal/: Yes: Renal Failure, Hemodialysis ...LMP: 04/08/20 ...: No Psych: Yes: Bipolar, Other Musculoskeletal: Yes: Chronic low back pain Endocrine: Yes: Hypothyroidism - Past Surgical History Past Surgical History: Yes: Appendectomy, Tonsillectomy Additional Surgical History: left avg thrombectomy, left breast lumpectomy and node issection. RUE surgerics for vascular access, ORIF right wrist left roattor cuff surgery. cardiac cath 2011, right eye surgery. gastric bypass - Smoking History Smoking history: Unknown if ever smoked Have you smoked in the past 12 months: No Home Medications - Allergies Allergies/Adverse Reactions: Allergies Allergy/AdvReac Type Severity Reaction Status Date / Time ciprofloxacin Allergy Verified 04/08/20 09:39 denosumab Allergy Verified 04/08/20 09:39 gabapentin Allergy Verified 04/08/20 09:39 levofloxacin Allergy Verified 04/08/20 09:39 NSAIDS (Non-Steroidal Allergy Verified 04/08/20 09:39 Anti-Inflamma sulfamethoxazole Allergy Verified 04/08/20 09:39 trimethoprim Allergy Verified 04/08/20 09:39 tape AdvReac Uncoded 04/08/20 09:39 - Home Medications Home Medications: Ambulatory Orders Acetaminophen [Non-Aspirin Extra Strength] 1,000 mg PO BID 04/08/20 Amlodipine Besylate [Norvasc -] 10 mg PO DAILY 04/08/20 Aripiprazole 30 mg PO DAILY 04/08/20 Calcium Acetate 2 tab PO DAILY 04/08/20 Carbamazepine [Carbamazepine ER] 300 mg PO BID 04/08/20 Cyclobenzaprine HCl 2 tab PO DAILY 04/08/20 Febuxostat [Uloric -] 80 mg PO DAILY 04/08/20 Furosemide 80 mg PO DAILY 04/08/20 Multivitamin 1 each PO DAILY 04/08/20 Pantoprazole Sodium [Protonix] 40 mg PO DAILY 04/08/20 Pramipexole Di-HCl [Mirapex] 0.5 mg PO TID 04/08/20 Pravastatin Sodium [Pravachol (Nf)] 40 mg PO HS 04/08/20 Quetiapine Fumarate [Quetiapine Fumarate ER] 200 mg PO DAILY 04/08/20 Quetiapine Fumarate [Seroquel -] 100 mg PO DAILY 04/08/20 Quetiapine Fumarate [Seroquel -] 400 mg PO HS 04/08/20 Sevelamer Carbonate 800 mg PO DAILY 04/08/20 hydrOXYzine PAMOATE [Vistaril -] 50 mg PO TID 04/08/20 propRANOLol HCL [Propranolol HCl ER] 120 mg PO BID 04/08/20 Family Medical History Family History: Unable to Obtain Family Hx Cancer: Father (lung) Family Hx Diabetes: Father Vital Signs: Vital Signs Temperature 97.1 F L 04/09/20 08:00 Pulse Rate 78 04/09/20 11:15 Respiratory Rate 16 04/09/20 11:15 Blood Pressure 74/48 L 04/09/20 11:15 O2 Sat by Pulse Oximetry (%) 98 04/08/20 21:00 Constitutional: Yes: No Distress, Calm Eyes: Yes: Conjunctiva Clear, EOM Intact HENT: Yes: Atraumatic, Normocephalic Neck: Yes: Trachea Midline Respiratory: Yes: CTA Bilaterally Gastrointestinal: Yes: Normal Bowel Sounds, Soft Cardiovascular: Yes: Pulse Irregular JVD: No Carotid Bruit: No PMI: Non-Displaced Heart Sounds: Yes: S1, S2 Musculoskeletal: Yes: WNL Extremities: Yes: Other (bruise) Edema: No - Other Data Labs, Other Data: CBC, BMP 04/09/20 02:42 04/08/20 09:30 INR, PTT INR 1.23 (0.83-1.09) H 09/19/20 09:30 Imaging - Results Chest X-ray: Report Reviewed (cm, clarissa) Cat Scan: Report Reviewed (cm, atalectasis) EKG: Report Reviewed (afib old awmi) Assessment/Plan Slime Mcadams is a 74 y/o female with PMH significant for ESRD on dialysis (/), a-fib not on AC (unclear reason but does fall), COPD, hypothyroidism, biploar/schizoaffective disorder, admitted after she was found with altered mental status, hypotension at the [facility]. She was hypotensive and severely anemic and bacteremic with GPC. Afib rate controlled, troponin negative. afib -rates are controlled. -echo -would defer AC for now, history of recent falls and severe anemia. -abx per ID.
[2020-04-09] MEDS: QUEtiapine FUMARATE 100 MG TABLET (FP) PO SCH (13:24)
[2020-04-09] MEDS ORDERED: VANCOMYCIN 1,000 MG in SODIUM CHLORIDE 250 ML IVPB ONE (13:30)
[2020-04-09] MEDS ORDERED: PT OWN MED DRAWER 7, Y5N ONE ×2 (13:39→13:51)
[2020-04-09] MEDS: ACETAMINOPHEN 325 MG TABLET (FP) PO PRN (13:41)
--- NOTE | 2020-04-09 13:51 | CON.NEP ---
Consult Consult Specialty:: Nephrology Referred by:: dr tariq Reason for Consultation:: ESRD - History of Present Illness Chief Complaint: ams and low bp in [place] History of Present Illness: 74 y/o [place] resident admitted for eval of ams and low bp ahe is ESRD and is on - History Source History Provided By: Medical Record - Past Medical History Cardio/Vascular: Yes: AFIB, CAD (nonobstructuve), HTN, Hyperlipdemia Pulmonary: Yes: COPD Gastrointestinal: Yes: GERD, Peptic Ulcer Disease, Other (pud, pancreatic insufficiency) Renal/: Yes: Renal Failure, Hemodialysis ...LMP: 04/08/20 ...: No Psych: Yes: Bipolar, Other Musculoskeletal: Yes: Chronic low back pain Endocrine: Yes: Hypothyroidism - Past Surgical History Past Surgical History: Yes: Appendectomy, Tonsillectomy Additional Surgical History: left avg thrombectomy, left breast lumpectomy and node issection. RUE surgerics for vascular access, ORIF right wrist left roattor cuff surgery. cardiac cath 2011, right eye surgery. gastric bypass - Smoking History Smoking history: Unknown if ever smoked Have you smoked in the past 12 months: No Home Medications - Allergies Allergies/Adverse Reactions: Allergies Allergy/AdvReac Type Severity Reaction Status Date / Time ciprofloxacin Allergy Verified 04/08/20 09:39 denosumab Allergy Verified 04/08/20 09:39 gabapentin Allergy Verified 04/08/20 09:39 levofloxacin Allergy Verified 04/08/20 09:39 NSAIDS (Non-Steroidal Allergy Verified 04/08/20 09:39 Anti-Inflamma sulfamethoxazole Allergy Verified 04/08/20 09:39 trimethoprim Allergy Verified 04/08/20 09:39 tape AdvReac Uncoded 04/08/20 09:39 - Home Medications Home Medications: Ambulatory Orders Acetaminophen [Non-Aspirin Extra Strength] 1,000 mg PO BID 04/08/20 Amlodipine Besylate [Norvasc -] 10 mg PO DAILY 04/08/20 Aripiprazole 30 mg PO DAILY 04/08/20 Calcium Acetate 2 tab PO DAILY 04/08/20 Carbamazepine [Carbamazepine ER] 300 mg PO BID 04/08/20 Cyclobenzaprine HCl 2 tab PO DAILY 04/08/20 Febuxostat [Uloric -] 80 mg PO DAILY 04/08/20 Furosemide 80 mg PO DAILY 04/08/20 Multivitamin 1 each PO DAILY 04/08/20 Pantoprazole Sodium [Protonix] 40 mg PO DAILY 04/08/20 Pramipexole Di-HCl [Mirapex] 0.5 mg PO TID 04/08/20 Pravastatin Sodium [Pravachol (Nf)] 40 mg PO HS 04/08/20 Quetiapine Fumarate [Quetiapine Fumarate ER] 200 mg PO DAILY 04/08/20 Quetiapine Fumarate [Seroquel -] 100 mg PO DAILY 04/08/20 Quetiapine Fumarate [Seroquel -] 400 mg PO HS 04/08/20 Sevelamer Carbonate 800 mg PO DAILY 04/08/20 hydrOXYzine PAMOATE [Vistaril -] 50 mg PO TID 04/08/20 propRANOLol HCL [Propranolol HCl ER] 120 mg PO BID 04/08/20 Family Medical History Family History: Unable to Obtain Family Hx Cancer: Father (lung) Family Hx Diabetes: Father Nephrology Consult - Height Height: 5 ft 2 in - Weight Weight: 186 lb 4.65 oz - BMI Body Mass Index (BMI): 34.0 - Lab Results CBC,BMP: CBC, BMP 04/09/20 02:42 04/08/20 09:30 Anion Gap: Anion Gap Anion Gap 8 MMOL/L (8-16) 04/08/20 09:30 - Physical Examination Vital Signs: Vital Signs Temperature 97.1 F L 04/09/20 08:00 Pulse Rate 87 04/09/20 12:09 Respiratory Rate 16 04/09/20 11:15 Blood Pressure 109/46 L 04/09/20 12:09 O2 Sat by Pulse Oximetry (%) 98 04/09/20 09:00 Assessment/Plan 74 y/o female ESRD on HD TTS admitted with AMS and low BP at [place] s/p bacteremia GPC severe anemia a-fib not on AC COPD, hypothyroidism, biploar/schizoaffective disorder,
--- NOTE | 2020-04-09 13:52 | HP ---
Admitting History and Physical - Past Medical History Cardiovascular: Yes: AFIB, CAD (nonobstructuve), HTN, Hyperlipdemia Pulmonary: Yes: COPD Gastrointestinal: Yes: GERD, Peptic Ulcer Disease, Other (pud, pancreatic insufficiency) Renal/: Yes: Renal Failure, Hemodialysis ...LMP: 04/08/20 ...: No Heme/Onc: Yes: Cancer (breast) Psych: Yes: Bipolar, Other Musculoskeletal: Yes: Chronic low back pain Endocrine: Yes: Hypothyroidism - Past Surgical History Past Surgical History: Yes: Appendectomy, Tonsillectomy - Smoking History Smoking history: Unknown if ever smoked Have you smoked in the past 12 months: No Home Medications - Allergies Allergies/Adverse Reactions: Allergies Allergy/AdvReac Type Severity Reaction Status Date / Time ciprofloxacin Allergy Verified 04/08/20 09:39 denosumab Allergy Verified 04/08/20 09:39 gabapentin Allergy Verified 04/08/20 09:39 levofloxacin Allergy Verified 04/08/20 09:39 NSAIDS (Non-Steroidal Allergy Verified 04/08/20 09:39 Anti-Inflamma sulfamethoxazole Allergy Verified 04/08/20 09:39 trimethoprim Allergy Verified 04/08/20 09:39 tape AdvReac Uncoded 04/08/20 09:39 - Home Medications Home Medications: Ambulatory Orders Acetaminophen [Non-Aspirin Extra Strength] 1,000 mg PO BID 04/08/20 Amlodipine Besylate [Norvasc -] 10 mg PO DAILY 04/08/20 Aripiprazole 30 mg PO DAILY 04/08/20 Calcium Acetate 2 tab PO DAILY 04/08/20 Carbamazepine [Carbamazepine ER] 300 mg PO BID 04/08/20 Cyclobenzaprine HCl 2 tab PO DAILY 04/08/20 Febuxostat [Uloric -] 80 mg PO DAILY 04/08/20 Furosemide 80 mg PO DAILY 04/08/20 Multivitamin 1 each PO DAILY 04/08/20 Pantoprazole Sodium [Protonix] 40 mg PO DAILY 04/08/20 Pramipexole Di-HCl [Mirapex] 0.5 mg PO TID 04/08/20 Pravastatin Sodium [Pravachol (Nf)] 40 mg PO HS 04/08/20 Quetiapine Fumarate [Quetiapine Fumarate ER] 200 mg PO DAILY 04/08/20 Quetiapine Fumarate [Seroquel -] 100 mg PO DAILY 04/08/20 Quetiapine Fumarate [Seroquel -] 400 mg PO HS 04/08/20 Sevelamer Carbonate 800 mg PO DAILY 04/08/20 hydrOXYzine PAMOATE [Vistaril -] 50 mg PO TID 04/08/20 propRANOLol HCL [Propranolol HCl ER] 120 mg PO BID 04/08/20 Family Medical History Family History: Unable to Obtain Family Hx Cancer: Father (lung) Family Hx Diabetes: Father Physical Examination Vital Signs: Vital Signs Temperature 97.1 F L 04/09/20 08:00 Pulse Rate 87 04/09/20 12:09 Respiratory Rate 16 04/09/20 11:15 Blood Pressure 109/46 L 04/09/20 12:09 O2 Sat by Pulse Oximetry (%) 98 04/09/20 09:00 Cardiovascular: Yes: S1, S2 Respiratory: Yes: Regular, CTA Bilaterally Gastrointestinal: Yes: Normal Bowel Sounds, Soft Neurological: Yes: Alert, Oriented Labs: CBC, BMP 04/09/20 02:42 04/08/20 09:30 Problem List - Problems (1) ESRD (end stage renal disease) Assessment/Plan: per renal Code(s): N18.6 - END STAGE RENAL DISEASE (2) Bacteremia Assessment/Plan: iv abx id coonsult cultures Code(s): R78.81 - BACTEREMIA (3) Anemia Assessment/Plan: follow trends s/p prbc Code(s): D64.9 - ANEMIA, UNSPECIFIED Qualifiers: Anemia type: unspecified type Qualified Code(s): D64.9 - Anemia, unspecified (4) Fall Assessment/Plan: no evidence of fx Code(s): W19.XXXA - UNSPECIFIED FALL, INITIAL ENCOUNTER (5) Hematoma of thigh Assessment/Plan: monitor Code(s): S70.10XA - CONTUSION OF UNSPECIFIED THIGH, INITIAL ENCOUNTER (6) Sepsis Assessment/Plan: iv abx cultures pressers icu care Code(s): A41.9 - SEPSIS, UNSPECIFIED ORGANISM
[2020-04-09] MEDS ORDERED: LORazepam 2 MG/ML SDV VIAL IVPUSH ONE ×2 (17:12→17:41)
[2020-04-09] MEDS ORDERED: DEXMEDETOMIDINE HCL 200 MCG in SODIUM CHLORIDE 48 ML IVPB SCH (18:15)
[2020-04-09 18:52] LABS: HEMATOCRIT 22.6 % (32.4-45.2); HEMOGLOBIN 7.4 GM/dL (10.7-15.3); MCHC 32.9 g/dl (32.0-36.0); MEAN CELL VOLUME 97.4 fl (80-96); MEAN PLT VOLUME 10.5 fl (7.5-11.1); PLATELET COUNT 92 K/MM3 (134-434); RBC 2.32 M/mm3 (3.60-5.2); RDW 21.2 % (11.6-15.6); WHITE BLOOD COUNT 12.8 K/mm3 (4.0-10.0)
[2020-04-09] MEDS: DEXMEDETOMIDINE HCL 400 MCG in SODIUM CHLORIDE 96 ML IVPB SCH (19:10)
[2020-04-09] MEDS: QUEtiapine FUMARATE 200 MG TABLET PO SCH (22:37)
[2020-04-10] MEDS: PHENYLEPHRINE NS PREMIX 25,000 MCG/250 ML BAG CVP SCH (03:00)
[2020-04-10] MEDS ORDERED: SODIUM BICARBONATE 8.4% 50 MEQ/50 ML DISP.SYRIN IVPUSH ONE ×2 (04:00→07:20)
[2020-04-10] MEDS: QUEtiapine FUMARATE 200 MG TABLET PO SCH ×2 (06:56→21:03)
[2020-04-10] MEDS ORDERED: PT OWN MED DRAWER 7, Y5N ONE (08:57)
[2020-04-10 09:00] LABS: POTASSIUM 4.8 mmol/L (3.5-5.1)
[2020-04-10 09:10] LABS: ALBUMIN 2.6 g/dl (3.4-5.0); BILIRUBIN,TOTAL 1.3 mg/dL (0.2-1); CALCIUM 7.4 mg/dL (8.5-10.1); MAGNESIUM 2.4 mg/dL (1.8-2.4); TOT PROT 5.6 g/dl (6.4-8.2)
[2020-04-10 09:11] LABS: BASO % 0.5 % (0-2.0); EOS % 1.7 % (0-4.5); HEMATOCRIT 22.1 % (32.4-45.2); HEMOGLOBIN 7.2 GM/dL (10.7-15.3); LYMPH % 8.8 % (8-40); MCH 31.6 pg (25.7-33.7); MCHC 32.7 g/dl (32.0-36.0); MEAN CELL VOLUME 96.6 fl (80-96); MEAN PLT VOLUME 10.4 fl (7.5-11.1); MONO % 9.8 % (3.8-10.2); NEUT % 79.2 % (42.8-82.8); PLATELET COUNT 73 K/MM3 (134-434); RBC 2.29 M/mm3 (3.60-5.2); RDW 21.2 % (11.6-15.6); WHITE BLOOD COUNT 7.1 K/mm3 (4.0-10.0)
[2020-04-10] MEDS: PANTOPRAZOLE 40 MG TABLET PO SCH (09:17)
[2020-04-10 09:43] LABS: CREATININE 7.8 mg/dL (0.55-1.3)
--- NOTE | 2020-04-10 10:41 | PN ---
Progress Note (short form) - Note Progress Note: awake and alert no complaints other then pain at fall site Vital Signs Period Temp Pulse Resp BP Sys/Corbett Pulse Ox Last 24 Hr 97.6 F-99.0 F 62-93 14-20 66-124/41-74 95-100 cor-rrr lungs decreased bs at bases abd soft,nt ext +ecchymoses left thight/buttock CBC, BMP 04/10/20 06:30 04/10/20 06:30 Microbiology 04/08/20 09:35 Blood - Peripheral Venous Blood Culture - Preliminary Staphylococcus Coagulase Neg 04/08/20 09:30 Blood - Peripheral Venous Blood Culture - Preliminary Staphylococcus Coagulase Neg a/p coag neg staph bactermia- ?contaminant repeat blood culture today redose jose ramon after blood cultures are sent echo esrd/hd- ?dialysis s/p fall with large hematoma bipolar disorder Problem List - Problems (1) Bacteremia Code(s): R78.81 - BACTEREMIA (2) Fall Code(s): W19.XXXA - UNSPECIFIED FALL, INITIAL ENCOUNTER (3) ESRD (end stage renal disease) on dialysis Code(s): N18.6 - END STAGE RENAL DISEASE; Z99.2 - DEPENDENCE ON RENAL DIALYSIS
--- NOTE | 2020-04-10 10:44 | PN ---
Progress Note, Physician Chief Complaint: Cardiology FU Telem AF HR 80s No dyspnea - Current Medication List Current Medications: Active Medications Acetaminophen (Tylenol -) 650 mg PO Q6H PRN PRN Reason: MILD PAIN Last Admin: 04/09/20 13:41 Dose: 650 mg Documented by: Phenylephrine HCl (Joseluis-Synephrine) 25,000 mcg in 250 mls @ 30 mls/hr CVP [facility]; Protocol Last Admin: 04/10/20 03:00 Dose: Not Given Documented by: Vasopressin 40 units/ Sodium (Chloride) 100 mls @ 5 mls/hr IVPB [facility]; Protocol Last Titration: 04/09/20 21:40 Dose: 3 units/hr, 7.5 mls/hr Documented by: Dexmedetomidine HCl 400 mcg/ (Sodium Chloride) 100 mls @ 4.225 mls/hr IVPB [facility] Last Infusion: 04/10/20 06:10 Dose: 0.4 mcg/kg/hr, 8.45 mls/hr Documented by: Pantoprazole Sodium (Protonix -) 40 mg PO DAILY [facility] Last Admin: 04/10/20 09:17 Dose: 40 mg Documented by: Quetiapine Fumarate (Seroquel -) 100 mg PO DAILY@1400 [facility] Last Admin: 04/09/20 13:24 Dose: 100 mg Documented by: Quetiapine Fumarate (Seroquel -) 400 mg PO HS [facility] Last Admin: 04/09/20 22:37 Dose: 400 mg Documented by: Quetiapine Fumarate (Seroquel -) 200 mg PO DAILY@0600 [facility] Last Admin: 04/10/20 06:56 Dose: 200 mg Documented by: - Objective Vital Signs: Vital Signs Temperature 98.0 F 04/10/20 06:00 Pulse Rate 64 04/10/20 08:00 Respiratory Rate 20 04/10/20 08:00 Blood Pressure 98/57 L 04/10/20 08:00 O2 Sat by Pulse Oximetry (%) 95 04/10/20 08:38 Constitutional: Yes: Well Nourished, No Distress Eyes: Yes: Conjunctiva Clear HENT: Yes: Atraumatic, Normocephalic Neck: Yes: Supple, Trachea Midline Cardiovascular: Yes: Pulse Irregular, S1, S2. No: Murmur Respiratory: Yes: Regular, CTA Bilaterally Edema: No Labs: CBC, BMP 04/10/20 06:30 04/10/20 06:30 INR, PTT INR 1.23 (0.83-1.09) H 04/08/20 09:30 Problem List - Problems (1) Atrial fibrillation Code(s): I48.91 - UNSPECIFIED ATRIAL FIBRILLATION (2) Bacteremia Code(s): R78.81 - BACTEREMIA Assessment/Plan Slime Mcadams is a 74 y/o female with PMH significant for ESRD on dialysis (), a-fib not on AC (unclear reason but does fall), COPD, hypothyroidism, biploar/schizoaffective disorder, admitted after she was found with altered mental status, hypotension at the custodial. She was hypotensive and severely anemic and bacteremic with GPC. Afib rate controlled, troponin negative. afib -rates are controlled. -echo pending - defer AC, history of recent falls, ESRD-hjigh risk for AC use and severe anemia. -abx per ID.
--- NOTE | 2020-04-10 11:52 | PN ---
Progress Note, Physician Chief Complaint: AMS ESRD Anemia Bacteremia History of Present Illness: Slime Mcadams is a 74 y/o female with PMH significant for ESRD on dialysis (), a-fib not on AC (unclear reason but does fall), COPD, hypothyroidism, biploar/schizoaffective disorder, admitted after she was found with altered mental status, hypotension at the long term. She was hypotensive and severely anemic and bacteremic with GPC. Afib rate controlled, troponin negative. Pt walks with walker at [facility]. Pt had a fall 04/06/20 at [facility]- ER evaluation with CT head + cervical spine were normal. Pt was discharged back to [facility] Returned 04/08/20 with increased changed in mentation Repeat CT head shows chronic right lacunar infarct, otherwise no changes. BC + Staph coag neg Stared on IV abx Also found to be anemic- transfused 2 units of PRBC Currently also on pressors to maintain MAP >65 - Current Medication List Current Medications: Active Medications Acetaminophen (Tylenol -) 650 mg PO Q6H PRN PRN Reason: MILD PAIN Last Admin: 04/09/20 13:41 Dose: 650 mg Documented by: Phenylephrine HCl (Joseluis-Synephrine) 25,000 mcg in 250 mls @ 30 mls/hr CVP [facility]; Protocol Last Admin: 04/10/20 03:00 Dose: Not Given Documented by: Vasopressin 40 units/ Sodium (Chloride) 100 mls @ 5 mls/hr IVPB [facility]; Protocol Last Titration: 04/09/20 21:40 Dose: 3 units/hr, 7.5 mls/hr Documented by: Dexmedetomidine HCl 400 mcg/ (Sodium Chloride) 100 mls @ 4.225 mls/hr IVPB [facility] Last Infusion: 04/10/20 06:10 Dose: 0.4 mcg/kg/hr, 8.45 mls/hr Documented by: Pantoprazole Sodium (Protonix -) 40 mg PO DAILY [facility] Last Admin: 04/10/20 09:17 Dose: 40 mg Documented by: Quetiapine Fumarate (Seroquel -) 100 mg PO DAILY@1400 [facility] Last Admin: 04/09/20 13:24 Dose: 100 mg Documented by: Quetiapine Fumarate (Seroquel -) 400 mg PO HS [facility] Last Admin: 04/09/20 22:37 Dose: 400 mg Documented by: Quetiapine Fumarate (Seroquel -) 200 mg PO DAILY@0600 [facility] Last Admin: 04/10/20 06:56 Dose: 200 mg Documented by: - Objective Vital Signs: Vital Signs Temperature 98.0 F 04/10/20 06:00 Pulse Rate 64 04/10/20 08:00 Respiratory Rate 20 04/10/20 08:00 Blood Pressure 98/57 L 04/10/20 08:00 O2 Sat by Pulse Oximetry (%) 95 04/10/20 08:38 Constitutional: Yes: Well Nourished, No Distress, Anxious Cardiovascular: Yes: Pulse Irregular Respiratory: Yes: Regular, CTA Bilaterally Gastrointestinal: Yes: Normal Bowel Sounds, Soft Genitourinary: Yes: Oliguria Musculoskeletal: Yes: Muscle Weakness Extremities: Yes: WNL Edema: No Peripheral Pulses WNL: Yes Integumentary: Yes: Bruising (Left thigh) Neurological: Yes: Alert, Confusion Psychiatric: Yes: Alert Labs: CBC, BMP 04/10/20 06:30 04/10/20 06:30 INR, PTT INR 1.23 (0.83-1.09) H 04/08/20 09:30 Problem List - Problems (1) Altered mental status Assessment/Plan: -CT head chronic lacunar infarct, no acute pathology -2/2 to acute sepsis -BC + -IV abx Problems reviewed: Yes Code(s): R41.82 - ALTERED MENTAL STATUS, UNSPECIFIED Qualifiers: Altered mental status type: unspecified Qualified Code(s): R41.82 - Altered mental status, unspecified (2) Anemia Assessment/Plan: -multifactorial -Check Iron+ thyroid profile, B12, and stool OB -Transfuse only if Hg<7.0 to avoid fluid overload Problems reviewed: Yes Code(s): D64.9 - ANEMIA, UNSPECIFIED Qualifiers: Anemia type: unspecified type Qualified Code(s): D64.9 - Anemia, unspecified (3) Atrial fibrillation Assessment/Plan: -Not on AC due frequent falls, risks>benefits Problems reviewed: Yes Code(s): I48.91 - UNSPECIFIED ATRIAL FIBRILLATION (4) Bacteremia Assessment/Plan: -BC: Microbiology 04/08/20 09:35 Blood - Peripheral Venous Blood Culture - Preliminary Staphylococcus Coagulase Neg 09/19/20 09:30 Blood - Peripheral Venous Blood Culture - Preliminary Staphylococcus Coagulase Neg -ID consult -afebrile -IV abx as per ID Problems reviewed: Yes Code(s): R78.81 - BACTEREMIA (5) ESRD (end stage renal disease) on dialysis Assessment/Plan: -Nephrology on board -AVF clotted -Vascular consult -may need trialysis catheter until AVF thrombosis is resolved Problems reviewed: Yes Code(s): N18.6 - END STAGE RENAL DISEASE; Z99.2 - DEPENDENCE ON RENAL DIALYSIS (6) Sepsis Assessment/Plan: -as above -LA normal Problems reviewed: Yes Code(s): A41.9 - SEPSIS, UNSPECIFIED ORGANISM (7) Fall Assessment/Plan: -Safety precautions -Physical therapy when more stable Problems reviewed: Yes Code(s): W19.XXXA - UNSPECIFIED FALL, INITIAL ENCOUNTER (8) Acute metabolic encephalopathy Code(s): G93.41 - METABOLIC ENCEPHALOPATHY Assessment/Plan See problem list
--- NOTE | 2020-04-10 13:31 | PN ---
Physical Exam: SUBJECTIVE: Patient seen and examined at bedside. 74 yo female sitting comfortable at bedside. Pt denies fevers, chills, nvd, with normal bowel mo vements. PMH: - ESRD (T//Fri) - Chronic Anemia - A. Fib (not on AC) - COPD - Scizoaffective OBJECTIVE: Vital Signs Period Temp Pulse Resp BP Sys/Corbett Pulse Ox Last 24 Hr 97.6 F-99.0 F 62-90 14-20 66-124/41-70 95-100 GENERAL: The patient is awake, alert, and fully oriented, in no acute distress. HEAD: Normal with no signs of trauma. EYES: PERRL, extraocular movements intact, sclera anicteric, conjunctiva clear. No ptosis. ENT: Ears normal, nares patent, oropharynx clear without exudates, moist mucous membranes. NECK: Trachea midline, full range of motion, supple. LUNGS: Breath sounds equal, clear to auscultation bilaterally, no wheezes, no crackles, no accessory muscle use. HEART: Regular rate and rhythm, S1, S2 without murmur, rub or gallop. ABDOMEN: Soft, nontender, nondistended, normoactive bowel sounds, no guarding, no rebound, no hepatosplenomegaly, no masses. EXTREMITIES: 2+ pulses, warm, well-perfused, no edema, left hip/thigh ecchymosis NEUROLOGICAL: Cranial nerves II through XII grossly intact. Normal speech, gait not observed. PSYCH: Agitated, normal affect. SKIN: Warm, dry, normal turgor, Laboratory Results - last 24 hr 04/08/20 04/09/20 04/10/20 11:45 11:19 06:30 WBC 12.8 H RBC 2.32 L Hgb 7.4 L Hct 22.6 L MCV 97.4 H MCH 32.0 MCHC 32.9 RDW 21.2 H Plt Count 92 L MPV 10.5 Absolute Neuts (auto) Neutrophils % Lymphocytes % Monocytes % Eosinophils % Basophils % Nucleated RBC % Sodium Potassium Chloride Carbon Dioxide Anion Gap BUN Creatinine Est GFR (CKD-EPI)AfAm Est GFR (CKD-EPI)NonAf Random Glucose Calcium Phosphorus Magnesium Total Bilirubin AST ALT Alkaline Phosphatase Total Protein Albumin Random Vancomycin 13.2 Blood Type O POSITIVE Antibody Screen Negative Crossmatch See Detail 04/10/20 04/10/20 06:30 06:30 WBC 7.1 RBC 2.29 L Hgb 7.2 L Hct 22.1 L MCV 96.6 H MCH 31.6 MCHC 32.7 RDW 21.2 H Plt Count 73 L D MPV 10.4 Absolute Neuts (auto) 5.6 Neutrophils % 79.2 Lymphocytes % 8.8 Monocytes % 9.8 Eosinophils % 1.7 D Basophils % 0.5 Nucleated RBC % 1 H Sodium 137 Potassium 4.8 Chloride 101 Carbon Dioxide 22 Anion Gap 14 BUN 53.0 H Creatinine 7.8 H* Est GFR (CKD-EPI)AfAm 5.44 Est GFR (CKD-EPI)NonAf 4.69 Random Glucose 134 H Calcium 7.4 L Phosphorus 8.0 H Magnesium 2.4 Total Bilirubin 1.3 H AST 12 L ALT 11 L Alkaline Phosphatase 81 Total Protein 5.6 L Albumin 2.6 L Random Vancomycin Blood Type Antibody Screen Crossmatch Active Medications Generic Name Dose Route Start Last Admin Trade Name Freq PRN Reason Stop Dose Admin Acetaminophen 650 mg 04/09/20 13:32 04/09/20 13:41 Tylenol - PO 650 mg Q6H PRN Administration MILD PAIN Phenylephrine HCl 25,000 mcg in 250 mls @ 30 mls/hr 04/09/20 03:00 04/10/20 03:00 Joseluis-Synephrine CVP Not Given TITR [facility] Protocol 50 MCG/MIN Vasopressin 40 units/ Sodium 100 mls @ 5 mls/hr 04/09/20 09:00 04/09/20 21:40 Chloride IVPB 3 units/hr [facility] 7.5 mls/hr Titration Protocol 2 UNITS/HR Dexmedetomidine HCl 400 mcg/ 100 mls @ 4.225 mls/hr 04/09/20 18:15 04/10/20 06:10 Sodium Chloride IVPB 0.4 mcg/kg/hr TITR [facility] 8.45 mls/hr Infusion 0.2 MCG/KG/HR Pantoprazole Sodium 40 mg 04/09/20 10:00 04/10/20 09:17 Protonix - PO 40 mg DAILY [facility] Administration Quetiapine Fumarate 100 mg 04/09/20 14:00 04/09/20 13:24 Seroquel - PO 100 mg DAILY@1400 [facility] Administration Quetiapine Fumarate 400 mg 04/09/20 22:00 04/09/20 22:37 Seroquel - PO 400 mg HS [facility] Administration Quetiapine Fumarate 200 mg 04/10/20 06:00 04/10/20 06:56 Seroquel - PO 200 mg DAILY@0600 [facility] Administration ASSESSMENT/PLAN: #Sepsis - Blood culture grew gram positive in clusters - WBC 12.8 - BP improving, plan to discontinue vasopressin (3) - Echo to r/o endocarditis - Vanco #ESRD - Bruising along left thigh, likely source of bleed - Hb downtreading to 7.2 - Transfusing 1 L blood - Start dialysis #Schizoaffective - Continue Ativan - Continue Seroquel - Removed restraints Problem List - Problems (1) Sepsis Problems reviewed: Yes Code(s): A41.9 - SEPSIS, UNSPECIFIED ORGANISM (2) ESRD (end stage renal disease) on dialysis Problems reviewed: Yes Code(s): N18.6 - END STAGE RENAL DISEASE; Z99.2 - DEPENDENCE ON RENAL DIALYSIS (3) Bacteremia Problems reviewed: Yes Code(s): R78.81 - BACTEREMIA Visit type - Emergency Visit Emergency Visit: Yes ED Registration Date: 04/08/20 Care time: The patient presented to the Emergency Department on the above date and was hospitalized for further evaluation of their emergent condition. - New Patient This patient is new to me today: Yes Date on this admission: 04/10/20 - Critical Care Critical Care patient: No - Medication Review Med list reviewed for High Risk Meds patients 65 and older: Yes ATTENDING PHYSICIAN STATEMENT I saw and evaluated the patient. I reviewed the resident's note and discussed the case with the resident. I agree with the resident's findings and plan as documented. SUBJECTIVE: OBJECTIVE: ASSESSMENT AND PLAN:
--- NOTE | 2020-04-10 13:48 | PN ---
Teaching Attending Note Name of Resident: Basil Scottarvindestela ATTENDING PHYSICIAN STATEMENT I saw and evaluated the patient. I reviewed the resident's note and discussed the case with the resident. I agree with the resident's findings and plan as documented. SUBJECTIVE: Patient seen and examined in ICU. Patient awake, alert and oriented. Remains on Vasopressin for hemodynamic support via a left IJ peripheral catheter. Denies CP or SOB. Reports back discomfort and some mild left hip pain (where she fell). Large hematoma noted. Slow downtrend of H & H. Intake & Output 04/07/20 04/08/20 04/09/20 04/10/20 23:59 23:59 23:59 23:59 Intake Total 3100 1717 130 Output Total 200 Balance 3100 1517 130 Weight 171 lb 186 lb 4.65 oz 187 lb Last Vital Signs Temp Pulse Resp BP Pulse Ox 98.0 F 76 20 87/42 L 95 04/10/20 06:00 04/10/20 13:39 04/10/20 08:00 04/10/20 13:39 04/10/20 08:38 Active Medications Acetaminophen (Tylenol -) 650 mg PO Q6H PRN PRN Reason: MILD PAIN Last Admin: 04/09/20 13:41 Dose: 650 mg Documented by: Phenylephrine HCl (Joseluis-Synephrine) 25,000 mcg in 250 mls @ 30 mls/hr CVP TITR [facility]; Protocol Last Admin: 04/10/20 03:00 Dose: Not Given Documented by: Vasopressin 40 units/ Sodium (Chloride) 100 mls @ 5 mls/hr IVPB [facility]; Protocol Last Titration: 04/10/20 13:39 Dose: 2 units/hr, 5 mls/hr Documented by: Dexmedetomidine HCl 400 mcg/ (Sodium Chloride) 100 mls @ 4.225 mls/hr IVPB [facility]IT[facility] Last Infusion: 04/10/20 06:10 Dose: 0.4 mcg/kg/hr, 8.45 mls/hr Documented by: Pantoprazole Sodium (Protonix -) 40 mg PO DAILY [facility] Last Admin: 04/10/20 09:17 Dose: 40 mg Documented by: Quetiapine Fumarate (Seroquel -) 100 mg PO DAILY@1400 [facility] Last Admin: 04/09/20 13:24 Dose: 100 mg Documented by: Quetiapine Fumarate (Seroquel -) 400 mg PO HS [facility] Last Admin: 04/09/20 22:37 Dose: 400 mg Documented by: Quetiapine Fumarate (Seroquel -) 200 mg PO DAILY@0600 [facility] Last Admin: 04/10/20 06:56 Dose: 200 mg Documented by: Eyes: Other (-) Jaundice HENT: Atraumatic, Normocephalic Neck: Trachea Midline, Other (stiff) Cardiovascular: Pulse Irregular, S1, S2 Respiratory: Regular, Diminished, On Nasal O2 Gastrointestinal: Soft, Abdomen, Obese Renal/: Tran Present Musculoskeletal: Yes: Back Pain, Joint Stiffness, Other (Lt hip pain Bilat A-V fistulas; right non-functioning) Extremities: Cool Edema: No Peripheral Pulses; Yes Laboratory Results - last 24 hr 04/08/20 04/09/20 04/10/20 11:45 11:19 06:30 WBC 12.8 H RBC 2.32 L Hgb 7.4 L Hct 22.6 L MCV 97.4 H MCH 32.0 MCHC 32.9 RDW 21.2 H Plt Count 92 L MPV 10.5 Absolute Neuts (auto) Neutrophils % Lymphocytes % Monocytes % Eosinophils % Basophils % Nucleated RBC % Sodium Potassium Chloride Carbon Dioxide Anion Gap BUN Creatinine Est GFR (CKD-EPI)AfAm Est GFR (CKD-EPI)NonAf Random Glucose Calcium Phosphorus Magnesium Total Bilirubin AST ALT Alkaline Phosphatase Total Protein Albumin Random Vancomycin 13.2 Blood Type O POSITIVE Antibody Screen Negative Crossmatch See Detail 04/10/20 04/10/20 06:30 06:30 WBC 7.1 RBC 2.29 L Hgb 7.2 L Hct 22.1 L MCV 96.6 H MCH 31.6 MCHC 32.7 RDW 21.2 H Plt Count 73 L D MPV 10.4 Absolute Neuts (auto) 5.6 Neutrophils % 79.2 Lymphocytes % 8.8 Monocytes % 9.8 Eosinophils % 1.7 D Basophils % 0.5 Nucleated RBC % 1 H Sodium 137 Potassium 4.8 Chloride 101 Carbon Dioxide 22 Anion Gap 14 BUN 53.0 H Creatinine 7.8 H* Est GFR (CKD-EPI)AfAm 5.44 Est GFR (CKD-EPI)NonAf 4.69 Random Glucose 134 H Calcium 7.4 L Phosphorus 8.0 H Magnesium 2.4 Total Bilirubin 1.3 H AST 12 L ALT 11 L Alkaline Phosphatase 81 Total Protein 5.6 L Albumin 2.6 L Random Vancomycin Blood Type Antibody Screen Crossmatch IMP: Septic Shock due to Sepsis Bacteremia (gram +cocci and clusters blood cultures 04/09) S/P mechanical fall ESRD (on HD, T// ) Anemia COPD hypothyroidism a-fib not on anticoagulation -Pressors to maintain MAP > 65 -Keep Hgb >7, Plt>10 - pRBCs transfusion -Continue PPI -pain management, Tylenol PRN -Continue psych meds -Hold antihypertensives due to hypotension -ABX per ID -ECHO to R/O endocarditis -HD per renal with transfusion and possible volume resuscitation -Requires ICU as long as she is on pressor agents Dr Park Critical care time spent in reviewing chart, evaluating patient and formulating plan - 36 minutes.
[2020-04-10] MEDS: QUEtiapine FUMARATE 100 MG TABLET (FP) PO SCH (15:00)
--- NOTE | 2020-04-10 15:02 | PN ---
Progress Note, Physician History of Present Illness: Pt seen and examined at bedside. She is awake but is agitated this morning. She denies shortness of breath. - Current Medication List Current Medications: Active Medications Acetaminophen (Tylenol -) 650 mg PO Q6H PRN PRN Reason: MILD PAIN Last Admin: 04/09/20 13:41 Dose: 650 mg Documented by: Phenylephrine HCl (Joseluis-Synephrine) 25,000 mcg in 250 mls @ 30 mls/hr CVP TITR [facility]; Protocol Last Admin: 04/10/20 03:00 Dose: Not Given Documented by: Vasopressin 40 units/ Sodium (Chloride) 100 mls @ 5 mls/hr IVPB [facility]; Protocol Last Titration: 04/10/20 13:39 Dose: 2 units/hr, 5 mls/hr Documented by: Dexmedetomidine HCl 400 mcg/ (Sodium Chloride) 100 mls @ 4.225 mls/hr IVPB [facility]ITR [facility] Last Infusion: 04/10/20 06:10 Dose: 0.4 mcg/kg/hr, 8.45 mls/hr Documented by: Pantoprazole Sodium (Protonix -) 40 mg PO DAILY [facility] Last Admin: 04/10/20 09:17 Dose: 40 mg Documented by: Quetiapine Fumarate (Seroquel -) 100 mg PO DAILY@1400 [facility] Last Admin: 04/09/20 13:24 Dose: 100 mg Documented by: Quetiapine Fumarate (Seroquel -) 400 mg PO HS [facility] Last Admin: 04/09/20 22:37 Dose: 400 mg Documented by: Quetiapine Fumarate (Seroquel -) 200 mg PO DAILY@0600 [facility] Last Admin: 04/10/20 06:56 Dose: 200 mg Documented by: - Objective Vital Signs: Vital Signs Temperature 98.0 F 04/10/20 06:00 Pulse Rate 76 04/10/20 13:39 Respiratory Rate 20 04/10/20 08:00 Blood Pressure 87/42 L 04/10/20 13:39 O2 Sat by Pulse Oximetry (%) 95 04/10/20 08:38 Constitutional: Yes: Anxious Eyes: Yes: Conjunctiva Clear HENT: Yes: Atraumatic Cardiovascular: Yes: S1, S2 Respiratory: Yes: CTA Bilaterally Gastrointestinal: Yes: Soft Genitourinary: Yes: Incontinence Edema: No Integumentary: Yes: WNL Neurological: Yes: Oriented Psychiatric: Yes: Agitated Labs: CBC, BMP 04/10/20 06:30 04/10/20 06:30 INR, PTT INR 1.23 (0.83-1.09) H 04/08/20 09:30 - ....Imaging Cat Scan: Report Reviewed Problem List - Problems (1) Altered mental status Code(s): R41.82 - ALTERED MENTAL STATUS, UNSPECIFIED Qualifiers: Altered mental status type: unspecified Qualified Code(s): R41.82 - Altered mental status, unspecified (2) Atrial fibrillation Code(s): I48.91 - UNSPECIFIED ATRIAL FIBRILLATION (3) ESRD (end stage renal disease) Code(s): N18.6 - END STAGE RENAL DISEASE Assessment/Plan Current Medications Generic Name Dose Route Start Last Admin Trade Name Freq PRN Reason Stop Dose Admin Acetaminophen 650 mg 04/09/20 13:32 04/09/20 13:41 Tylenol - PO 650 mg Q6H PRN Administration MILD PAIN Phenylephrine HCl 25,000 mcg in 250 mls @ 30 mls/hr 04/09/20 03:00 04/10/20 03:00 Joseluis-Synephrine CVP Not Given [facility]ITR [facility] Protocol 50 MCG/MIN Vasopressin 40 units/ Sodium 100 mls @ 5 mls/hr 04/09/20 09:00 04/10/20 13:39 Chloride IVPB 2 units/hr [facility] 5 mls/hr Titration Protocol 2 UNITS/HR Dexmedetomidine HCl 400 mcg/ 100 mls @ 4.225 mls/hr 04/09/20 18:15 04/10/20 06:10 Sodium Chloride IVPB 0.4 mcg/kg/hr [facility]ITR [facility] 8.45 mls/hr Infusion 0.2 MCG/KG/HR Pantoprazole Sodium 40 mg 04/09/20 10:00 04/10/20 09:17 Protonix - PO 40 mg DAILY [facility] Administration Quetiapine Fumarate 100 mg 04/09/20 14:00 04/09/20 13:24 Seroquel - PO 100 mg DAILY@1400 [facility] Administration Quetiapine Fumarate 400 mg 04/09/20 22:00 04/09/20 22:37 Seroquel - PO 400 mg HS [facility] Administration Quetiapine Fumarate 200 mg 04/10/20 06:00 04/10/20 06:56 Seroquel - PO 200 mg DAILY@0600 [facility] Administration Microbiology 04/08/20 09:35 Blood - Peripheral Venous Blood Culture - Preliminary Staphylococcus Coagulase Neg 04/08/20 09:30 Blood - Peripheral Venous Blood Culture - Preliminary Staphylococcus Coagulase Neg Impression 1. ESRD (TTS) 2. sepsis 3. left buttock hematoma 4. bactermia 5. S/P mechanical fall 6. Anemia 7. COPD 8. hypothyroidism 9. a-fib Plan - will arrange for HD today - pt last went to HD on - called Rehab and she has history of non compliance with hd treatments - can get the prbc with hd - cont pressors to map 65 - repeat cultures with HD - cont abx - discussed with ICU team
[2020-04-10] MEDS ORDERED: SODIUM CHLORIDE 250 ML IV PRN ×2 (15:03→15:04)
[2020-04-10] MEDS: VASOPRESSIN 40 UNITS in SODIUM CHLORIDE 98 ML IVPB SCH (15:20)
[2020-04-10] MEDS: DEXMEDETOMIDINE HCL 400 MCG in SODIUM CHLORIDE 96 ML IVPB SCH ×2 (15:21→19:00)
[2020-04-10] MEDS ORDERED: oxyCODONE HCL 5 MG TABLET PO ONE (15:28)
[2020-04-10] MEDS ORDERED: VANCOMYCIN 1 GRAM (PRE-DOCKED) 1,000 MG/250 ML BAG IVPB ONE (16:00)
[2020-04-10] MEDS ORDERED: EPOETIN ALFA-EPBX 10,000 UNIT/ML VIAL IVPUSH ONE (16:00)
--- NOTE | 2020-04-10 18:57 | PN ---
Progress Note (short form) - Note Progress Note: Vascular Surgery Pt seen and examined. Left avg is thrombosed. Pt on vasopressin. Pt also needs blood tranfusion. Pt might need trialysis cath yusuf and receive blood transfusion with HD. Pt can get declot on fri or th once stable and off pressors. Adelfo Huffman DO
--- NOTE | 2020-04-10 21:10 | ECHO ---
Version: 1 Name: LILO SCHMITZ Exam: Adult Echocardiogram Study Date: 04/10/2020, 2:18 PM Age: 74 Years MMode/2D Measurements & Calculations IVSd: 0.92 cm LVIDs: 2.37 cm LVIDd: 4.1 cm LVPWd: 0.95 cm LAV (MOD-bp): 131.0 ml ACS: 1.53 cm Ao root diam: 2.9 cm LVOT diam: 1.81 cm LA dimension: 5.2 cm Doppler Measurements & Calculations MV E max kennedy: 135.7 cm/sec MVA(VTI): 1.77 cm MV mean P.20 mmHg MV V2 max: 146.7 cm/sec Lat E/e': 11.9 MV max P.6 mmHg Lat Peak E' Kennedy: 11.4 cm/sec Med E/e': 20.8 Med Peak E' Kennedy: 6.5 cm/sec MR max P.0 mmHg Ao max P.3 mmHg GARRETT(I,D): 1.96 cm Ao mean P.9 mmHg LV V1 mean: 62.1 cm/sec Ao V2 max: 114.6 cm/sec LV V1 mean P.70 mmHg TR max kennedy: 305.0 cm/sec TR max P.4 mmHg Procedure A complete two-dimensional transthoracic echocardiogram was performed (2D, M-mode, Doppler and color flow Doppler). Technically limited study. Left Ventricle The left ventricle is grossly normal size. Left ventricular systolic function is normal. Ejection Fr action = >70%. No regional wall motion abnormalities noted. Right Ventricle The right ventricle is not well visualized. Atria The left atrium is moderately dilated. The right atrium is mildly dilated. Mitral Valve There is moderate to severe mitral annular calcification. There is moderate mitral regurgitation. Tricuspid Valve The tricuspid valve is not well visualized, but is grossly normal. There is moderate tricuspid regur gitation. PASP is at least 47 mmHg if RA pressure is assumed 3 mmHg. Aortic Valve There is mild aortic sclerosis.;. Trace to mild aortic regurgitation. Pulmonic Valve The pulmonic valve is not well seen, but is grossly normal. Mild pulmonic valvular regurgitation. Great Vessels The aortic root is normal size. Pericardium/Pleura There is no pericardial effusion. Tech Comments TDS. Patient agitated, in neck pain, scanned slightly sitting up. No subcostal or suprasternal views . Summary Statements The left ventricle is grossly normal size. Left ventricular systolic function is normal. No regional wall motion abnormalities noted. Ejection Fraction = >70%. The left atrium is moderately dilated. The right atrium is mildly dilated. There is moderate to severe mitral annular calcification. There is moderate mitral regurgitation. There is moderate tricuspid regurgitation. PASP is at least 47 mmHg if RA pressure is assumed 3 mmHg There is mild aortic sclerosis. Trace to mild aortic regurgitation. Mild pulmonic valvular regurgitation. There is no pericardial effusion. Dandre Ireland MD 04/10/2020, 9:09 PM Ordering Physician: Tammie Gamez Referring Physician: TAMMIE GAMEZ Performed By: Helen Roman
[2020-04-11] MEDS: PHENYLEPHRINE NS PREMIX 25,000 MCG/250 ML BAG CVP SCH (05:33)
[2020-04-11] MEDS: QUEtiapine FUMARATE 200 MG TABLET PO SCH ×2 (06:16→21:30)
[2020-04-11 07:23] LABS: BASO % 0.5 % (0-2.0); EOS % 3.7 % (0-4.5); HEMATOCRIT 20.6 % (32.4-45.2); LYMPH % 9.9 % (8-40); MCH 32.7 pg (25.7-33.7); MCHC 33.1 g/dl (32.0-36.0); MEAN CELL VOLUME 98.9 fl (80-96); MEAN PLT VOLUME 11.1 fl (7.5-11.1); MONO % 8.5 % (3.8-10.2); NEUT % 77.4 % (42.8-82.8); PLATELET COUNT 67 K/MM3 (134-434); RBC 2.09 M/mm3 (3.60-5.2); RDW 20.9 % (11.6-15.6); WHITE BLOOD COUNT 7.2 K/mm3 (4.0-10.0)
[2020-04-11 08:00] LABS: ALBUMIN 2.5 g/dl (3.4-5.0); BILIRUBIN,TOTAL 1.3 mg/dL (0.2-1); BLOOD UREA NITROGEN 61.4 mg/dL (7-18); CALCIUM 7.1 mg/dL (8.5-10.1); POTASSIUM 4.7 mmol/L (3.5-5.1); TOT PROT 5.4 g/dl (6.4-8.2)
[2020-04-11 08:17] LABS: HEMOGLOBIN 6.8 GM/dL (10.7-15.3)
[2020-04-11 09:08] LABS: CREATININE 8.5 mg/dL (0.55-1.3)
[2020-04-11] MEDS: VASOPRESSIN 40 UNITS in SODIUM CHLORIDE 98 ML IVPB SCH (10:22)
[2020-04-11] MEDS: POTASSIUM CHLORIDE 10 MEQ PREMIX IVPB (POTASSIUM RIDER) IVPB SCH (10:22)
[2020-04-11] MEDS: PANTOPRAZOLE 40 MG TABLET PO SCH (10:31)
[2020-04-11] MEDS: DEXMEDETOMIDINE HCL 400 MCG in SODIUM CHLORIDE 96 ML IVPB SCH (12:00)
[2020-04-11] MEDS ORDERED: MIDAZOLAM HCL 2 MG/2 ML SINGLE DOSE VIAL IVPUSH ONE (12:12)
[2020-04-11] MEDS ORDERED: PRAMIPEXOLE DIHYDROCHLORIDE 0.5 MG TABLET PO ONE (12:40)
--- NOTE | 2020-04-11 13:59 | PN ---
Teaching Attending Note Name of Resident: Basil Scottarvindestela ATTENDING PHYSICIAN STATEMENT I saw and evaluated the patient. I reviewed the resident's note and discussed the case with the resident. I agree with the resident's findings and plan as documented. SUBJECTIVE: Patient seen and examined in ICU. Patient awake, alert and oriented. Remains on Vasopressin for hemodynamic support via a left IJ peripheral catheter. Denies CP or SOB. Still reports back discomfort and some mild left hip pain (where she fell). Large hematoma noted. Slow downtrend of H & H. Intake & Output 04/08/20 04/09/20 04/10/20 04/11/20 23:59 23:59 23:59 23:59 Intake Total 3100 1717 782.5 424.8 Output Total 200 0 Balance 3100 1517 782.5 424.8 Weight 171 lb 186 lb 4.65 oz 186 lb 187 lb 1.6 oz Last Vital Signs Temp Pulse Resp BP Pulse Ox 97.9 F 80 20 112/65 95 04/11/20 10:00 04/11/20 10:22 04/11/20 10:00 04/11/20 10:22 04/11/20 09:00 Active Medications Acetaminophen (Tylenol -) 650 mg PO Q6H PRN PRN Reason: MILD PAIN Last Admin: 04/09/20 13:41 Dose: 650 mg Documented by: Phenylephrine HCl (Joseluis-Synephrine) 25,000 mcg in 250 mls @ 30 mls/hr CVP [facility]; Protocol Last Admin: 04/11/20 05:33 Dose: Not Given Documented by: Vasopressin 40 units/ Sodium (Chloride) 100 mls @ 5 mls/hr IVPB [facility]; Protocol Last Admin: 04/11/20 10:22 Dose: 2 units/hr, 5 mls/hr Documented by: Dexmedetomidine HCl 400 mcg/ (Sodium Chloride) 100 mls @ 4.225 mls/hr IVPB [facility] Last Admin: 04/10/20 19:00 Dose: Not Given Documented by: Sodium Chloride (Normal Saline -) 250 mls @ 3,000 mls/hr IV PRN PRN PRN Reason: Hypotension during Dialysis Stop: 04/11/20 15:03 Sodium Chloride (Normal Saline -) 250 mls @ 3,000 mls/hr IV PRN PRN PRN Reason: Hypotension during Dialysis Stop: 04/11/20 15:04 Pantoprazole Sodium (Protonix -) 40 mg PO DAILY [facility] Last Admin: 04/11/20 10:31 Dose: 40 mg Documented by: Quetiapine Fumarate (Seroquel -) 100 mg PO DAILY@1400 [facility] Last Admin: 04/10/20 15:00 Dose: 100 mg Documented by: Quetiapine Fumarate (Seroquel -) 400 mg PO HS [facility] Last Admin: 04/10/20 21:03 Dose: 400 mg Documented by: Quetiapine Fumarate (Seroquel -) 200 mg PO DAILY@0600 [facility] Last Admin: 04/11/20 06:16 Dose: 200 mg Documented by: Eyes: Other (-) Jaundice HENT: Atraumatic, Normocephalic Neck: Trachea Midline, Other (stiff) Cardiovascular: Pulse Irregular, S1, S2 Respiratory: Regular, Diminished, On Nasal O2 Gastrointestinal: Soft, Abdomen, Obese Renal/: Tran Present Musculoskeletal: Yes: Back Pain, Joint Stiffness, Other (Lt hip pain Bilat A-V fistulas; right non-functioning) Extremities: Cool Edema: No Peripheral Pulses; Yes Laboratory Results - last 24 hr 04/08/20 04/10/20 04/11/20 11:45 18:40 05:45 WBC 7.2 RBC 2.09 L Hgb 6.8 L* Hct 20.6 L MCV 98.9 H MCH 32.7 MCHC 33.1 RDW 20.9 H Plt Count 67 L MPV 11.1 Absolute Neuts (auto) 5.6 Neutrophils % 77.4 Lymphocytes % 9.9 Monocytes % 8.5 Eosinophils % 3.7 D Basophils % 0.5 Nucleated RBC % 1 H Sodium Potassium Chloride Carbon Dioxide Anion Gap BUN Creatinine Est GFR (CKD-EPI)AfAm Est GFR (CKD-EPI)NonAf Random Glucose Lactic Acid 1.0 Calcium Iron TIBC Iron Saturation Unsaturated IBC Ferritin Total Bilirubin AST ALT Alkaline Phosphatase Total Protein Albumin Vitamin B12 TSH Free T4 Blood Type O POSITIVE Antibody Screen Negative Crossmatch See Detail 04/11/20 05:45 WBC RBC Hgb Hct MCV MCH MCHC RDW Plt Count MPV Absolute Neuts (auto) Neutrophils % Lymphocytes % Monocytes % Eosinophils % Basophils % Nucleated RBC % Sodium 139 Potassium 4.7 Chloride 103 Carbon Dioxide 26 Anion Gap 10 BUN 61.4 H Creatinine 8.5 H* Est GFR (CKD-EPI)AfAm 4.90 Est GFR (CKD-EPI)NonAf 4.23 Random Glucose 130 H Lactic Acid Calcium 7.1 L Iron 53 TIBC 124 L Iron Saturation 42 H Unsaturated IBC 71 L Ferritin 604.2 H Total Bilirubin 1.3 H AST 8 L ALT 11 L Alkaline Phosphatase 80 Total Protein 5.4 L Albumin 2.5 L Vitamin B12 1886 H TSH 6.04 H Free T4 0.31 L Blood Type Antibody Screen Crossmatch IMP: Septic Shock due to Sepsis Bacteremia (gram +cocci and clusters blood cultures 04/09) S/P mechanical fall ESRD (on HD, // ) Anemia COPD hypothyroidism AFib not on anticoagulation -Will need access for HD : Femoral as very limited mobility of her neck -Pressors to maintain MAP > 65 -Keep Hgb >7, Plt>10 -pRBCs transfusion -Continue PPI -pain management, Tylenol PRN -Continue psych meds -Hold antihypertensives due to hypotension -ABX per ID -ECHO to R/O endocarditis -HD per renal with transfusion and possible volume resuscitation -Requires ICU for pressor agents Dr Park Critical care time spent in reviewing chart, evaluating patient and formulating plan - 36 minutes.
--- NOTE | 2020-04-11 14:32 | PN ---
Progress Note, Physician History of Present Illness: Pt seen and examined at bedside. She is awake and appears comfortable. - Current Medication List Current Medications: Active Medications Acetaminophen (Tylenol -) 650 mg PO Q6H PRN PRN Reason: MILD PAIN Last Admin: 04/09/20 13:41 Dose: 650 mg Documented by: Phenylephrine HCl (Joseluis-Synephrine) 25,000 mcg in 250 mls @ 30 mls/hr CVP TITR [facility]; Protocol Last Admin: 04/11/20 05:33 Dose: Not Given Documented by: Vasopressin 40 units/ Sodium (Chloride) 100 mls @ 5 mls/hr IVPB [facility]; Protocol Last Admin: 04/11/20 10:22 Dose: 2 units/hr, 5 mls/hr Documented by: Dexmedetomidine HCl 400 mcg/ (Sodium Chloride) 100 mls @ 4.225 mls/hr IVPB [facility] Last Admin: 04/10/20 19:00 Dose: Not Given Documented by: Sodium Chloride (Normal Saline -) 250 mls @ 3,000 mls/hr IV PRN PRN PRN Reason: Hypotension during Dialysis Stop: 04/11/20 15:03 Sodium Chloride (Normal Saline -) 250 mls @ 3,000 mls/hr IV PRN PRN PRN Reason: Hypotension during Dialysis Stop: 04/11/20 15:04 Pantoprazole Sodium (Protonix -) 40 mg PO DAILY [facility] Last Admin: 04/11/20 10:31 Dose: 40 mg Documented by: Quetiapine Fumarate (Seroquel -) 100 mg PO DAILY@1400 [facility] Last Admin: 04/10/20 15:00 Dose: 100 mg Documented by: Quetiapine Fumarate (Seroquel -) 400 mg PO HS [facility] Last Admin: 04/10/20 21:03 Dose: 400 mg Documented by: Quetiapine Fumarate (Seroquel -) 200 mg PO DAILY@0600 [facility] Last Admin: 04/11/20 06:16 Dose: 200 mg Documented by: - Objective Vital Signs: Vital Signs Temperature 97.9 F 04/11/20 10:00 Pulse Rate 80 04/11/20 10:22 Respiratory Rate 20 04/11/20 10:00 Blood Pressure 112/65 04/11/20 10:22 O2 Sat by Pulse Oximetry (%) 95 04/11/20 09:00 Constitutional: Yes: Calm Eyes: Yes: Conjunctiva Clear HENT: Yes: Atraumatic Neck: Yes: Supple Cardiovascular: Yes: S1, S2 Respiratory: Yes: CTA Bilaterally Gastrointestinal: Yes: Soft Genitourinary: Yes: WNL Musculoskeletal: Yes: Other (graft without thrill or bruit) Edema: No Neurological: Yes: Oriented Labs: CBC, BMP 04/11/20 05:45 04/11/20 05:45 INR, PTT INR 1.23 (0.83-1.09) H 04/08/20 09:30 Problem List - Problems (1) Altered mental status Code(s): R41.82 - ALTERED MENTAL STATUS, UNSPECIFIED Qualifiers: Altered mental status type: unspecified Qualified Code(s): R41.82 - Altered mental status, unspecified (2) Atrial fibrillation Code(s): I48.91 - UNSPECIFIED ATRIAL FIBRILLATION (3) ESRD (end stage renal disease) Code(s): N18.6 - END STAGE RENAL DISEASE Assessment/Plan Current Medications Generic Name Dose Route Start Last Admin Trade Name Freq PRN Reason Stop Dose Admin Acetaminophen 650 mg 04/09/20 13:32 04/09/20 13:41 Tylenol - PO 650 mg Q6H PRN Administration MILD PAIN Phenylephrine HCl 25,000 mcg in 250 mls @ 30 mls/hr 04/09/20 03:00 04/11/20 05:33 Joseluis-Synephrine CVP Not Given [facility] Protocol 50 MCG/MIN Vasopressin 40 units/ Sodium 100 mls @ 5 mls/hr 04/09/20 09:00 04/11/20 10:22 Chloride IVPB 2 units/hr [facility] 5 mls/hr Administration Protocol 2 UNITS/HR Dexmedetomidine HCl 400 mcg/ 100 mls @ 4.225 mls/hr 04/09/20 18:15 04/10/20 19:00 Sodium Chloride IVPB Not Given TITR [facility] 0.2 MCG/KG/HR Sodium Chloride 250 mls @ 3,000 mls/hr 04/10/20 15:03 Normal Saline - IV 04/11/20 15:03 PRN PRN Hypotension during Dialysis Sodium Chloride 250 mls @ 3,000 mls/hr 04/10/20 15:04 Normal Saline - IV 04/11/20 15:04 PRN PRN Hypotension during Dialysis Pantoprazole Sodium 40 mg 04/09/20 10:00 04/11/20 10:31 Protonix - PO 40 mg DAILY [facility] Administration Quetiapine Fumarate 100 mg 04/09/20 14:00 04/10/20 15:00 Seroquel - PO 100 mg DAILY@1400 [facility] Administration Quetiapine Fumarate 400 mg 04/09/20 22:00 04/10/20 21:03 Seroquel - PO 400 mg HS [facility] Administration Quetiapine Fumarate 200 mg 04/10/20 06:00 04/11/20 06:16 Seroquel - PO 200 mg DAILY@0600 [facility] Administration Impression 1. ESRD (TTS) 2. sepsis 3. left buttock hematoma 4. bactermia 5. S/P mechanical fall 6. Anemia 7. COPD 8. hypothyroidism 9. a-fib Plan - graft was clotted - shiley placed today - HD today - pt did not get HD yesterday - cont pressors to map 65 - cont abx - discussed with ICU team
--- NOTE | 2020-04-11 14:58 | PN ---
Progress Note, Physician History of Present Illness: Pt resting comfortable. No new complaints. No acute events overnight. - Current Medication List Current Medications: Active Medications Acetaminophen (Tylenol -) 650 mg PO Q6H PRN PRN Reason: MILD PAIN Last Admin: 04/09/20 13:41 Dose: 650 mg Documented by: Phenylephrine HCl (Joseluis-Synephrine) 25,000 mcg in 250 mls @ 30 mls/hr CVP TITR [facility]; Protocol Last Admin: 04/11/20 05:33 Dose: Not Given Documented by: Vasopressin 40 units/ Sodium (Chloride) 100 mls @ 5 mls/hr IVPB [facility]; Protocol Last Admin: 04/11/20 10:22 Dose: 2 units/hr, 5 mls/hr Documented by: Dexmedetomidine HCl 400 mcg/ (Sodium Chloride) 100 mls @ 4.225 mls/hr IVPB [facility] Last Admin: 04/10/20 19:00 Dose: Not Given Documented by: Sodium Chloride (Normal Saline -) 250 mls @ 3,000 mls/hr IV PRN PRN PRN Reason: Hypotension during Dialysis Stop: 04/11/20 15:03 Sodium Chloride (Normal Saline -) 250 mls @ 3,000 mls/hr IV PRN PRN PRN Reason: Hypotension during Dialysis Stop: 04/11/20 15:04 Pantoprazole Sodium (Protonix -) 40 mg PO DAILY [facility] Last Admin: 04/11/20 10:31 Dose: 40 mg Documented by: Quetiapine Fumarate (Seroquel -) 100 mg PO DAILY@1400 [facility] Last Admin: 04/10/20 15:00 Dose: 100 mg Documented by: Quetiapine Fumarate (Seroquel -) 400 mg PO HS [facility] Last Admin: 04/10/20 21:03 Dose: 400 mg Documented by: Quetiapine Fumarate (Seroquel -) 200 mg PO DAILY@0600 [facility] Last Admin: 04/11/20 06:16 Dose: 200 mg Documented by: - Objective Vital Signs: Vital Signs Temperature 97.6 F 04/11/20 14:00 Pulse Rate 88 04/11/20 14:00 Respiratory Rate 21 H 04/11/20 14:00 Blood Pressure 104/61 04/11/20 14:00 O2 Sat by Pulse Oximetry (%) 95 04/11/20 09:00 Constitutional: Yes: Well Nourished, Anxious. No: No Distress Eyes: Yes: WNL, Conjunctiva Clear, EOM Intact HENT: Yes: WNL, Atraumatic, Normocephalic Neck: Yes: WNL, Supple. No: Trachea Midline Cardiovascular: Yes: WNL, Regular Rate and Rhythm Respiratory: Yes: WNL, Regular, CTA Bilaterally Gastrointestinal: Yes: WNL, Normal Bowel Sounds, Soft Musculoskeletal: Yes: Other (eccyhmosis on left thigh) Labs: CBC, BMP 04/11/20 05:45 04/11/20 05:45 INR, PTT INR 1.23 (0.83-1.09) H 04/08/20 09:30 Problem List - Problems (1) Sepsis Problems reviewed: Yes Code(s): A41.9 - SEPSIS, UNSPECIFIED ORGANISM (2) ESRD (end stage renal disease) on dialysis Problems reviewed: Yes Code(s): N18.6 - END STAGE RENAL DISEASE; Z99.2 - DEPENDENCE ON RENAL DIALYSIS (3) Bacteremia Problems reviewed: Yes Code(s): R78.81 - BACTEREMIA Impression/Plan Impression/Plan: ASSESSMENT/PLAN: #Sepsis - Blood culture grew gram positive in clusters - WBC 12.8 - BP improving, plan to discontinue vasopressin (3) - Echo negative for endocarditis, moderate valvular regurgitaiton - Vanco #ESRD - Left AV fistula occluded - Placed left femoral trialysis catheter under sterile procedure with good blood flow (used versed due to agitation) - Start dialysis #Anemia - Bruising along left thigh, likely source of bleed - Hb measured at 6.8 - Transfuse 1 unit #Schizoaffective - Continue Ativan - Continue Seroquel - Removed restraints Visit type - Emergency Visit Emergency Visit: Yes ED Registration Date: 04/08/20 Care time: The patient presented to the Emergency Department on the above date and was hospitalized for further evaluation of their emergent condition. - New Patient This patient is new to me today: No - Critical Care Critical Care patient: Yes Total Critical Care Time (in minutes): 36 Critical Care Statement: The care of this patient involved high complexity decision making to prevent further life threatening deterioration of the patient's condition and/or to evaluate & treat vital organ system(s) failure or risk of failure. - Medication Review Med list reviewed for High Risk Meds patients 65 and older: Yes ATTENDING PHYSICIAN STATEMENT I saw and evaluated the patient. I reviewed the resident's note and discussed the case with the resident. I agree with the resident's findings and plan as documented. SUBJECTIVE: OBJECTIVE: ASSESSMENT AND PLAN: Procedures - Central Line Central Line Lumen: Trialysis Central Line Position: femoral (L) Anesthesia: 1% Lidocaine w/ epi Amount of anesthesia (ccs): 3 Complications: none Post Central Line Insertion: sutured, good blood return, position confirmed w/ CXR
[2020-04-11] MEDS: QUEtiapine FUMARATE 100 MG TABLET (FP) PO SCH (15:20)
--- NOTE | 2020-04-11 16:03 | PN ---
Progress Note, Physician Chief Complaint: AMS ESRD Anemia Bacteremia History of Present Illness: Slime Mcadams is a 74 y/o female with PMH significant for ESRD on dialysis (), a-fib not on AC (unclear reason but does fall), COPD, hypothyroidism, biploar/schizoaffective disorder, admitted after she was found with altered mental status[facility]. She was hypotensive and severely anemic and bacteremic with GPC. Afib rate controlled, troponin negative. Pt walks with walker at OR. Pt had a fall 04/06/20 at OR- ER evaluation with CT head + cervical spine were normal. Pt was discharged back to OR Returned 04/08/20 with increased changed in mentation Repeat CT head shows chronic right lacunar infarct, otherwise no changes. BC + Staph coag neg Stared on IV abx Also found to be anemic- transfused 2 units of PRBC upon admission Currently also on pressors to maintaining MAP >65 04/11/20:NAD, anxious, Still confused Hg 6.8, PRBC 1 unit ordered HD today Awaiting repeat BC - Current Medication List Current Medications: Active Medications Acetaminophen (Tylenol -) 650 mg PO Q6H PRN PRN Reason: MILD PAIN Last Admin: 04/09/20 13:41 Dose: 650 mg Documented by: Phenylephrine HCl (Joseluis-Synephrine) 25,000 mcg in 250 mls @ 30 mls/hr CVP TITR [facility]; Protocol Last Admin: 04/11/20 05:33 Dose: Not Given Documented by: Vasopressin 40 units/ Sodium (Chloride) 100 mls @ 5 mls/hr IVPB [facility]; Protocol Last Admin: 04/11/20 10:22 Dose: 2 units/hr, 5 mls/hr Documented by: Dexmedetomidine HCl 400 mcg/ (Sodium Chloride) 100 mls @ 4.225 mls/hr IVPB TITR [facility] Last Admin: 04/10/20 19:00 Dose: Not Given Documented by: Sodium Chloride (Normal Saline -) 250 mls @ 3,000 mls/hr IV PRN PRN PRN Reason: Hypotension during Dialysis Stop: 04/11/20 15:03 Sodium Chloride (Normal Saline -) 250 mls @ 3,000 mls/hr IV PRN PRN PRN Reason: Hypotension during Dialysis Stop: 09/22/20 15:04 Pantoprazole Sodium (Protonix -) 40 mg PO DAILY [facility] Last Admin: 04/11/20 10:31 Dose: 40 mg Documented by: Quetiapine Fumarate (Seroquel -) 100 mg PO DAILY@1400 [facility] Last Admin: 04/11/20 15:20 Dose: 100 mg Documented by: Quetiapine Fumarate (Seroquel -) 400 mg PO HS [facility] Last Admin: 04/10/20 21:03 Dose: 400 mg Documented by: Quetiapine Fumarate (Seroquel -) 200 mg PO DAILY@0600 [facility] Last Admin: 04/11/20 06:16 Dose: 200 mg Documented by: - Objective Vital Signs: Vital Signs Temperature 97.6 F 04/11/20 14:00 Pulse Rate 88 04/11/20 14:00 Respiratory Rate 21 H 04/11/20 14:00 Blood Pressure 104/61 04/11/20 14:00 O2 Sat by Pulse Oximetry (%) 95 04/11/20 09:00 Constitutional: Yes: Well Nourished, No Distress, Calm Cardiovascular: Yes: Regular Rate and Rhythm Respiratory: Yes: Regular, CTA Bilaterally Gastrointestinal: Yes: Normal Bowel Sounds, Soft Genitourinary: Yes: WNL Musculoskeletal: Yes: Muscle Weakness Extremities: Yes: WNL Edema: No Peripheral Pulses WNL: Yes Integumentary: Yes: Bruising (left thight) Neurological: Yes: Alert, Confusion Psychiatric: Yes: Alert Labs: CBC, BMP 04/11/20 05:45 04/11/20 05:45 INR, PTT INR 1.23 (0.83-1.09) H 04/08/20 09:30 Problem List - Problems (1) Altered mental status Assessment/Plan: -CT head chronic lacunar infarct, no acute pathology -2/2 to acute sepsis -BC: Microbiology 04/08/20 09:35 Blood - Peripheral Venous Blood Culture - Final Staphylococcus Epidermidis 04/08/20 09:30 Blood - Peripheral Venous Blood Culture - Preliminary Staphylococcus Coagulase Neg -Repeat BC done yesterday pending -IV abx Problems reviewed: Yes Code(s): R41.82 - ALTERED MENTAL STATUS, UNSPECIFIED Qualifiers: Altered mental status type: unspecified Qualified Code(s): R41.82 - Altered mental status, unspecified (2) Anemia Assessment/Plan: -multifactorial -Iron+ B12 normal -stool OB pending -TSH elvated, FT4 low -Transfuse only if Hg<7.0 to avoid fluid overload Problems reviewed: Yes Code(s): D64.9 - ANEMIA, UNSPECIFIED Qualifiers: Anemia type: unspecified type Qualified Code(s): D64.9 - Anemia, unspecified (3) Atrial fibrillation Assessment/Plan: -Not on AC due frequent falls, risks>benefits Problems reviewed: Yes Code(s): I48.91 - UNSPECIFIED ATRIAL FIBRILLATION (4) Bacteremia Assessment/Plan: -BC: Microbiology 04/08/20 09:35 Blood - Peripheral Venous Blood Culture - Preliminary Staphylococcus Coagulase Neg 04/08/20 09:30 Blood - Peripheral Venous Blood Culture - Preliminary Staphylococcus Coagulase Neg -ID consult -afebrile -IV abx as per ID -Repeat BC pending Problems reviewed: Yes Code(s): R78.81 - BACTEREMIA (5) ESRD (end stage renal disease) on dialysis Assessment/Plan: -Nephrology on board -AVF clotted -Vascular consult -HD today Problems reviewed: Yes Code(s): N18.6 - END STAGE RENAL DISEASE; Z99.2 - DEPENDENCE ON RENAL DIALYSIS (6) Sepsis Assessment/Plan: -as above -LA normal Problems reviewed: Yes Code(s): A41.9 - SEPSIS, UNSPECIFIED ORGANISM (7) Fall Assessment/Plan: -Safety precautions -Physical therapy when more stable Problems reviewed: Yes Code(s): W19.XXXA - UNSPECIFIED FALL, INITIAL ENCOUNTER (8) Acute metabolic encephalopathy Problems reviewed: Yes Code(s): G93.41 - METABOLIC ENCEPHALOPATHY (9) Hypothyroidism Assessment/Plan: -Start Levothyroxine 25 mcg po daily -Recheck TSH,FT4 in 6 weeks on 05/23/20 Problems reviewed: Yes Code(s): E03.9 - HYPOTHYROIDISM, UNSPECIFIED Assessment/Plan See problem list
[2020-04-11] MEDS ORDERED: ACETAMINOPHEN 1000 MG/100 ML VIAL (NON FORMULARY) IVPB ONE (17:45)
[2020-04-11] MEDS ORDERED: EPOETIN ALFA-EPBX 10,000 UNIT/ML VIAL SQ ONE (18:30)
[2020-04-11] MEDS ORDERED: VASOPRESSIN 20 UNITS/ML VIAL IV ONE (19:24)
[2020-04-11] MEDS ORDERED: TRIMETHOBENZAMIDE HCL 300 MG CAPSULE PO ONE (19:38)
[2020-04-11] MEDS: EPOETIN ALFA-EPBX 10,000 UNIT/ML VIAL IVPUSH ONE ×2 (19:46→23:49)
--- NOTE | 2020-04-11 19:57 | PN ---
Progress Note (short form) - Note Progress Note: EPO SQ was NOT given. IV EPO WAS given.
[2020-04-11] MEDS ORDERED: PT OWN MED DRAWER 7, Y5N ONE (21:29)
[2020-04-11] MEDS: ACETAMINOPHEN 325 MG TABLET (FP) PO PRN (21:30)
[2020-04-11] MEDS ORDERED: METOCLOPRAMIDE HCL INJECTION 10 MG/2 ML VIAL IVPUSH ONE (21:39)
[2020-04-11] MEDS ORDERED: LOPERAMIDE HCL 1 MG/5 ML UNIT DOSE CUP PO ONE (21:49)
[2020-04-11] MEDS ORDERED: oxyCODONE HCL 5 MG TABLET PO ONE (22:20)
[2020-04-11 23:00] LABS: HEMATOCRIT 24.5 % (32.4-45.2); HEMOGLOBIN 8.1 GM/dL (10.7-15.3); MCH 32.2 pg (25.7-33.7); MCHC 33.1 g/dl (32.0-36.0); MEAN CELL VOLUME 97.3 fl (80-96); MEAN PLT VOLUME 10.5 fl (7.5-11.1); PLATELET COUNT 64 K/MM3 (134-434); RBC 2.52 M/mm3 (3.60-5.2); WHITE BLOOD COUNT 6.9 K/mm3 (4.0-10.0)
[2020-04-11 23:27] LABS: CALCIUM 7.3 mg/dL (8.5-10.1); CREATININE 5.4 mg/dL (0.55-1.3); PHOSPHOROUS 4.8 mg/dL (2.5-4.9); POTASSIUM 3.8 mmol/L (3.5-5.1)
[2020-04-12] MEDS: PHENYLEPHRINE NS PREMIX 25,000 MCG/250 ML BAG CVP SCH (05:38)
[2020-04-12] MEDS ORDERED: PT OWN MED DRAWER 7, Y5N ONE ×6 (05:58→21:41)
[2020-04-12] MEDS: QUEtiapine FUMARATE 200 MG TABLET PO SCH ×2 (06:01→22:09)
[2020-04-12] MEDS: LEVOTHYROXINE NA 25 MCG TABLET (FP) PO SCH (06:20)
[2020-04-12 06:51] LABS: BASO % 0.5 % (0-2.0); EOS % 2.5 % (0-4.5); HEMATOCRIT 21.7 % (32.4-45.2); HEMOGLOBIN 7.3 GM/dL (10.7-15.3); LYMPH % 7.5 % (8-40); MCH 32.6 pg (25.7-33.7); MCHC 33.6 g/dl (32.0-36.0); MONO % 8.8 % (3.8-10.2); NEUT % 80.7 % (42.8-82.8); PLATELET COUNT 55 K/MM3 (134-434); RBC 2.24 M/mm3 (3.60-5.2); RDW 19.7 % (11.6-15.6); WHITE BLOOD COUNT 5.6 K/mm3 (4.0-10.0)
[2020-04-12 07:19] LABS: ALBUMIN 2.6 g/dl (3.4-5.0); BILIRUBIN,TOTAL 1.5 mg/dL (0.2-1); CALCIUM 7.3 mg/dL (8.5-10.1); CREATININE 5.8 mg/dL (0.55-1.3); PHOSPHOROUS 5.4 mg/dL (2.5-4.9); POTASSIUM 3.8 mmol/L (3.5-5.1); TOT PROT 5.5 g/dl (6.4-8.2)
[2020-04-12] MEDS: VASOPRESSIN 40 UNITS in SODIUM CHLORIDE 98 ML IVPB SCH (09:00)
--- NOTE | 2020-04-12 09:33 | PN ---
Progress Note (short form) - Note Progress Note: VASCULAR SURGERY 74 y/o female with clotted AVF. ESRD on dialysis (//). Admitted after she was found AMS and hypotensive at [facility]. Severely anemic and bacteremic with GPC. BC + Staph coag neg. Stared on IV abx. Currently on pressor to maintaining MAP >65. Getting HD via femoral shiley. Will need AVF declot once stable/off pressor. Cont medical optimization. Surgery to cont following. Above discussed with Dr. Huffman and agrees.
[2020-04-12] MEDS: PANTOPRAZOLE 40 MG TABLET PO SCH (09:39)
--- NOTE | 2020-04-12 11:15 | PN ---
Progress Note, Physician Chief Complaint: AMS ESRD Anemia Bacteremia History of Present Illness: Slime Mcadams is a 74 y/o female with PMH significant for ESRD on dialysis (), a-fib not on AC (unclear reason but does fall), COPD, hypothyroidism, biploar/schizoaffective disorder, admitted after she was found with altered mental status, hypotension at the [place] [facility]. She was hypotensive and severely anemic and bacteremic with GPC. Afib rate controlled, troponin negative. Pt [facility] with walk[facility] at [facility]. Pt had a fall 04/06/20 at [facility]- ER evaluation with CT head + cervical spine were normal. Pt was discharged back to [facility] Returned 04/08/20 with increased changed in mentation Repeat CT head shows chronic right lacunar infarct, otherwise no changes. BC + Staph coag neg Stared on IV abx Also found to be anemic- transfused 2 units of PRBC upon admission Currently also on pressors to maintaining MAP >65 04/11/20:NAD, anxious, Still confused Hg 6.8, PRBC 1 unit ordered HD today Awaiting repeat BC 04/12/20: Still on pressors Trialysis catheter Received HD yesterday Awaiting AVF thrombectomy once off pressors - Current Medication List Current Medications: Active Medications Acetaminophen (Tylenol -) 650 mg PO Q6H PRN PRN Reason: MILD PAIN Last Admin: 04/11/20 21:30 Dose: 650 mg Documented by: Phenylephrine HCl (Joseluis-Synephrine) 25,000 mcg in 250 mls @ 30 mls/hr CVP TITR [facility]; Protocol Last Admin: 04/12/20 05:38 Dose: Not Given Documented by: Vasopressin 40 units/ Sodium (Chloride) 100 mls @ 5 mls/hr IVPB [facility]; Protocol Last Titration: 04/12/20 05:38 Dose: 0 units/hr, 0 mls/hr Documented by: Dexmedetomidine HCl 400 mcg/ (Sodium Chloride) 100 mls @ 4.225 mls/hr IVPB TITR [facility] Last Infusion: 04/11/20 23:00 Dose: 0.7 mcg/kg/hr, 14.788 mls/hr Documented by: Sodium Chloride (Normal Saline -) 250 mls @ 3,000 mls/hr IV PRN PRN PRN Reason: Hypotension during Dialysis Stop: 04/11/20 15:03 Sodium Chloride (Normal Saline -) 250 mls @ 3,000 mls/hr IV PRN PRN PRN Reason: Hypotension during Dialysis Stop: 04/11/20 15:04 Levothyroxine Sodium (Synthroid -) 25 mcg PO DAILY@0700 [facility] Last Admin: 04/12/20 06:20 Dose: 25 mcg Documented by: Pantoprazole Sodium (Protonix -) 40 mg PO DAILY [facility] Last Admin: 04/12/20 09:39 Dose: 40 mg Documented by: Quetiapine Fumarate (Seroquel -) 100 mg PO DAILY@1400 [facility] Last Admin: 04/11/20 15:20 Dose: 100 mg Documented by: Quetiapine Fumarate (Seroquel -) 400 mg PO HS [facility] Last Admin: 04/11/20 21:30 Dose: 400 mg Documented by: Quetiapine Fumarate (Seroquel -) 200 mg PO DAILY@0600 [facility] Last Admin: 04/12/20 06:01 Dose: 200 mg Documented by: - Objective Vital Signs: Vital Signs Temperature 97.5 F L 04/12/20 09:00 Pulse Rate 101 H 04/12/20 09:00 Respiratory Rate 17 04/12/20 09:00 Blood Pressure 111/73 04/12/20 09:00 O2 Sat by Pulse Oximetry (%) 88 L 04/12/20 09:00 Constitutional: Yes: Well Nourished, No Distress, Calm Cardiovascular: Yes: Regular Rate and Rhythm Respiratory: Yes: Regular, CTA Bilaterally Gastrointestinal: Yes: Normal Bowel Sounds, Soft Genitourinary: Yes: Oliguria Musculoskeletal: Yes: Muscle Weakness Extremities: Yes: WNL Edema: No Peripheral Pulses WNL: Yes Neurological: Yes: Alert, Confusion Psychiatric: Yes: Alert Labs: CBC, BMP 04/12/20 05:30 04/12/20 05:30 INR, PTT INR 1.23 (0.83-1.09) H 04/08/20 09:30 Problem List - Problems (1) Altered mental status Assessment/Plan: -CT head chronic lacunar infarct, no acute pathology -2/2 to acute sepsis -BC: contaminated? Microbiology 04/08/20 09:35 Blood - Peripheral Venous Blood Culture - Final Staphylococcus Epidermidis 04/08/20 09:30 Blood - Peripheral Venous Blood Culture - Preliminary Staphylococcus Coagulase Neg -Repeat BC pending -Off IV abx Problems reviewed: Yes Code(s): R41.82 - ALTERED MENTAL STATUS, UNSPECIFIED Qualifiers: Altered mental status type: unspecified Qualified Code(s): R41.82 - Altered mental status, unspecified (2) Anemia Assessment/Plan: -multifactorial -Iron+ B12 normal -stool OB negative -TSH elvated, FT4 low -Transfuse only if Hg<7.0 to avoid fluid overload -Procrit as per nephrology Problems reviewed: Yes Code(s): D64.9 - ANEMIA, UNSPECIFIED Qualifiers: Anemia type: unspecified type Qualified Code(s): D64.9 - Anemia, unspecified (3) Atrial fibrillation Assessment/Plan: -Not on AC due frequent falls, risks>benefits Problems reviewed: Yes Code(s): I48.91 - UNSPECIFIED ATRIAL FIBRILLATION (4) Bacteremia Assessment/Plan: -BC: Microbiology 04/08/20 09:35 Blood - Peripheral Venous Blood Culture - Preliminary Staphylococcus Coagulase Neg 04/08/20 09:30 Blood - Peripheral Venous Blood Culture - Preliminary Staphylococcus Coagulase Neg -ID consult -afebrile -Off IV abx -Repeat BC pending Problems reviewed: Yes Code(s): R78.81 - BACTEREMIA (5) ESRD (end stage renal disease) on dialysis Assessment/Plan: -Nephrology on board -AVF clotted- needs thrombectomy once off pressors -Vascular consult appreciated -HD as per nephrology Problems reviewed: Yes Code(s): N18.6 - END STAGE RENAL DISEASE; Z99.2 - DEPENDENCE ON RENAL DIALYSIS (6) Sepsis Assessment/Plan: -as above -LA normal Problems reviewed: Yes Code(s): A41.9 - SEPSIS, UNSPECIFIED ORGANISM (7) Fall Assessment/Plan: -Safety precautions -Physical therapy when more stable Problems reviewed: Yes Code(s): W19.XXXA - UNSPECIFIED FALL, INITIAL ENCOUNTER (8) Acute metabolic encephalopathy Problems reviewed: Yes Code(s): G93.41 - METABOLIC ENCEPHALOPATHY (9) Hypothyroidism Assessment/Plan: -Start Levothyroxine 25 mcg po daily -Recheck TSH,FT4 in 6 weeks on 05/23/20 Problems reviewed: Yes Code(s): E03.9 - HYPOTHYROIDISM, UNSPECIFIED Assessment/Plan See problem list
--- NOTE | 2020-04-12 11:33 | PN ---
Progress Note (short form) - Note Progress Note: awake and alert moving legs comfortably had HD yesterday-avg thrombosed, shiley placed for HD no fevers Vital Signs Period Temp Pulse Resp BP Sys/Corbett Pulse Ox Last 24 Hr 97.5 F-98.2 F 77-102 14-24 89-133/52-86 88-100 cor-rrr lungs clear abd soft,nt +ecchymoses ext no edema CBC, BMP 04/12/20 05:30 04/12/20 05:30 Microbiology 04/10/20 18:40 Blood - Peripheral Venous Blood Culture - Preliminary NO GROWTH OBTAINED AFTER 24 HOURS, INCUBATION TO CONTINUE FOR 4 DAYS. 04/08/20 09:35 Blood - Peripheral Venous Blood Culture - Final Staphylococcus Epidermidis 04/08/20 09:30 Blood - Peripheral Venous Blood Culture - Preliminary Staphylococcus Coagulase Neg a/p coag neg staph bactermia- ?contaminant repeat blood culture today negative now off pressors continue vancomycin based on levels will check level in am esrd/hd- s/p dialysis, avg is thrombosed s/p fall with large hematoma bipolar disorder Problem List - Problems (1) Bacteremia Code(s): R78.81 - BACTEREMIA (2) Fall Code(s): W19.XXXA - UNSPECIFIED FALL, INITIAL ENCOUNTER (3) ESRD (end stage renal disease) on dialysis Code(s): N18.6 - END STAGE RENAL DISEASE; Z99.2 - DEPENDENCE ON RENAL DIALYSIS
--- NOTE | 2020-04-12 11:44 | PN ---
Progress Note, Physician Chief Complaint: Cardiology FU Telem AF HR 80s No dyspnea Cloted AVG now with irene. - Current Medication List Current Medications: Active Medications Acetaminophen (Tylenol -) 650 mg PO Q6H PRN PRN Reason: MILD PAIN Last Admin: 04/11/20 21:30 Dose: 650 mg Documented by: Phenylephrine HCl (Joseluis-Synephrine) 25,000 mcg in 250 mls @ 30 mls/hr CVP TITR [facility]; Protocol Last Admin: 04/12/20 05:38 Dose: Not Given Documented by: Vasopressin 40 units/ Sodium (Chloride) 100 mls @ 5 mls/hr IVPB [facility]; Protocol Last Titration: 04/12/20 05:38 Dose: 0 units/hr, 0 mls/hr Documented by: Dexmedetomidine HCl 400 mcg/ (Sodium Chloride) 100 mls @ 4.225 mls/hr IVPB TITR [facility] Last Infusion: 04/11/20 23:00 Dose: 0.7 mcg/kg/hr, 14.788 mls/hr Documented by: Sodium Chloride (Normal Saline -) 250 mls @ 3,000 mls/hr IV PRN PRN PRN Reason: Hypotension during Dialysis Stop: 04/11/20 15:03 Sodium Chloride (Normal Saline -) 250 mls @ 3,000 mls/hr IV PRN PRN PRN Reason: Hypotension during Dialysis Stop: 04/11/20 15:04 Levothyroxine Sodium (Synthroid -) 25 mcg PO DAILY@0700 [facility] Last Admin: 04/12/20 06:20 Dose: 25 mcg Documented by: Pantoprazole Sodium (Protonix -) 40 mg PO DAILY [facility] Last Admin: 04/12/20 09:39 Dose: 40 mg Documented by: Quetiapine Fumarate (Seroquel -) 100 mg PO DAILY@1400 [facility] Last Admin: 04/11/20 15:20 Dose: 100 mg Documented by: Quetiapine Fumarate (Seroquel -) 400 mg PO HS [facility] Last Admin: 04/11/20 21:30 Dose: 400 mg Documented by: Quetiapine Fumarate (Seroquel -) 200 mg PO DAILY@0600 [facility] Last Admin: 04/12/20 06:01 Dose: 200 mg Documented by: - Objective Vital Signs: Vital Signs Temperature 97.5 F L 04/12/20 09:00 Pulse Rate 101 H 04/12/20 09:00 Respiratory Rate 17 04/12/20 09:00 Blood Pressure 111/73 04/12/20 09:00 O2 Sat by Pulse Oximetry (%) 88 L 04/12/20 09:00 Constitutional: Yes: Well Nourished, No Distress Eyes: Yes: Conjunctiva Clear HENT: Yes: Atraumatic, Normocephalic Neck: Yes: Supple, Trachea Midline Cardiovascular: Yes: Pulse Irregular Respiratory: Yes: Regular, CTA Bilaterally Gastrointestinal: Yes: Normal Bowel Sounds Edema: No Labs: CBC, BMP 04/12/20 05:30 04/12/20 05:30 INR, PTT INR 1.23 (0.83-1.09) H 04/08/20 09:30 Problem List - Problems (1) Atrial fibrillation Code(s): I48.91 - UNSPECIFIED ATRIAL FIBRILLATION (2) Bacteremia Code(s): R78.81 - BACTEREMIA Assessment/Plan Slime Mcadams is a 74 y/o female with PMH significant for ESRD on dialysis (T/T h/Sa), a-fib not on AC (unclear reason but does fall), COPD, hypothyroidism, biploar/schizoaffective disorder, admitted after she [facility] with altered mental status[facility] She was hypotensive and severely anemic and bacteremic with GPC. Afib rate controlled, troponin negative. afib -rates are controlled despite being off AV cristóbal blockade. -normal LV function without valvulopathy. - She will be at high risk for AC use for Afib stroke prevention. -No cardiac contraindications to AVF declotting.
--- NOTE | 2020-04-12 11:58 | SPA.PREOP ---
- PRE-OP NOTE Dx: Clotted AVF Planned Procedure: AVF declot Surgeon: Last Vital Signs Temp Pulse Resp BP Pulse Ox 97.5 F L 101 H 17 111/73 88 L 04/12/20 09:00 04/12/20 09:00 04/12/20 09:00 04/12/20 09:00 04/12/20 09:00 CBC, BMP 04/12/20 05:30 04/12/20 05:30 Blood Type Blood Type O POSITIVE 04/11/20 15:00 INR, PTT INR 1.23 (0.83-1.09) H 04/08/20 09:30 Serology Test 04/08/20 17:08 COVID-19 (YAZMIN) Not detected - ASSESSMENT/PLAN 1. Make NPO after midnight except po meds 2. GI/DVT PPX 3. Medical optimization / clearance 4. Consent to be obtained by surgeon after risks, benefits and alternatives discussed with patient and or Health Care Proxy. Problem List - Problems (1) Clotted renal dialysis AV graft Code(s): T82.868A - THROMBOSIS DUE TO VASCULAR PROSTH DEV/GRFT, INIT (2) Altered mental status Code(s): R41.82 - ALTERED MENTAL STATUS, UNSPECIFIED Qualifiers: Altered mental status type: unspecified Qualified Code(s): R41.82 - Altered mental status, unspecified (3) Anemia Code(s): D64.9 - ANEMIA, UNSPECIFIED Qualifiers: Anemia type: unspecified type Qualified Code(s): D64.9 - Anemia, unspecified (4) ESRD (end stage renal disease) on dialysis Code(s): N18.6 - END STAGE RENAL DISEASE; Z99.2 - DEPENDENCE ON RENAL DIALYSIS (5) Hematoma of thigh Code(s): S70.10XA - CONTUSION OF UNSPECIFIED THIGH, INITIAL ENCOUNTER Visit type - Case Type Case Type: ED Admission - Emergency Emergency Visit: Yes ED Registration Date: 04/08/20 Care time: The patient presented to the Emergency Department on the above date and was hospitalized for further evaluation of their emergent condition.
[2020-04-12] MEDS ORDERED: ARTIFICIAL TEARS (POLYVINYL ALCOHOL) OPTH DROPS OU PRN (11:59)
--- NOTE | 2020-04-12 12:30 | PN ---
Teaching Attending Note Name of Resident: Basil Scottarvindestela ATTENDING PHYSICIAN STATEMENT I saw and evaluated the patient. I reviewed the resident's note and discussed the case with the resident. I agree with the resident's findings and plan as documented. SUBJECTIVE: Pt seen and examined in the ICU. Off vasopressin gtt. States gluteal pain imp roving. Agitated overnight. OBJECTIVE: Vital Signs Period Temp Pulse Resp BP Sys/Corbett Pulse Ox Last 24 Hr 97.5 F-98.2 F 77-102 14-24 89-133/52-86 88-100 Intake & Output 04/09/20 04/10/20 04/11/20 04/12/20 23:59 23:59 23:59 23:59 Intake Total 1717 782.5 1639.6 160 Output Total 200 0 3502 0 Balance 1517 782.5 -1862.4 160 Weight 84.5 kg 84.368 kg 84.867 kg 85.02 kg Gen: NAD at rest Heart: RRR Lung: decreased breath sounds at the bases Abd: soft, nontender Ext: no edema, left flank ecchymoses CBC, BMP 04/12/20 05:30 04/12/20 05:30 Active Medications Acetaminophen (Tylenol -) 650 mg PO Q6H PRN PRN Reason: MILD PAIN Last Admin: 04/11/20 21:30 Dose: 650 mg Documented by: Aripiprazole (Abilify) 30 mg PO DAILY [facility] Artificial Tears (Artificial Tears) 1 drop OU BID PRN PRN Reason: DRY EYES Carbamazepine (Tegretol Xr -) 300 mg PO BID [facility] Hydroxyzine Pamoate (Vistaril -) 50 mg PO TID [facility] Phenylephrine HCl (Joseluis-Synephrine) 25,000 mcg in 250 mls @ 30 mls/hr CVP TITR [facility]; Protocol Last Admin: 04/12/20 05:38 Dose: Not Given Documented by: Vasopressin 40 units/ Sodium (Chloride) 100 mls @ 5 mls/hr IVPB [facility]; P rotocol Last Admin: 04/12/20 09:00 Dose: Not Given Documented by: Sodium Chloride (Normal Saline -) 250 mls @ 3,000 mls/hr IV PRN PRN PRN Reason: Hypotension during Dialysis Stop: 04/11/20 15:03 Sodium Chloride (Normal Saline -) 250 mls @ 3,000 mls/hr IV PRN PRN PRN Reason: Hypotension during Dialysis Stop: 04/11/20 15:04 Levothyroxine Sodium (Synthroid -) 25 mcg PO DAILY@0700 [facility] Last Admin: 04/12/20 06:20 Dose: 25 mcg Documented by: Multivitamins/Minerals/Vitamin C (Tab-A-Vit -) 1 tab PO DAILY [facility] Pantoprazole Sodium (Protonix -) 40 mg PO DAILY [facility] Last Admin: 04/12/20 09:39 Dose: 40 mg Documented by: Pramipexole Dihydrochloride (Mirapex -) 0.5 mg PO TID [facility] Quetiapine Fumarate (Seroquel -) 100 mg PO DAILY@1400 [facility] Last Admin: 04/11/20 15:20 Dose: 100 mg Documented by: Quetiapine Fumarate (Seroquel -) 400 mg PO HS [facility] Last Admin: 04/11/20 21:30 Dose: 400 mg Documented by: Quetiapine Fumarate (Seroquel -) 200 mg PO DAILY@0600 [facility] Last Admin: 04/12/20 06:01 Dose: 200 mg Documented by: ASSESSMENT AND PLAN: Staph Bacteremia Septic Shock improving s/p Fall Large Left Gluteal Hematoma Acute Blood Loss Anemia Atrial Fibrillation ESRD on HD COPD Hypothyroidism Schizoaffective Disorder - antibiotics per ID - f/u pending cultures - monitor H/H - transfuse as needed - off pressors, maintain MAP >65 - HD per renal - will need AVF declotting - resume psych meds - can monitor on floor if H/H stable
[2020-04-12] MEDS ORDERED: hydrOXYzine PAMOATE 50 MG CAPSULE (FP) PO PRN (12:39)
[2020-04-12] MEDS: QUEtiapine FUMARATE 100 MG TABLET (FP) PO SCH (13:26)
[2020-04-12] MEDS: PRAMIPEXOLE DIHYDROCHLORIDE 0.5 MG TABLET PO SCH ×2 (13:26→22:08)
--- NOTE | 2020-04-12 13:51 | PN ---
Progress Note, Physician History of Present Illness: Pt seen and examined at bedside. She is awake and appears comfortable. - Current Medication List Current Medications: Active Medications Acetaminophen (Tylenol -) 650 mg PO Q6H PRN PRN Reason: MILD PAIN Last Admin: 04/11/20 21:30 Dose: 650 mg Documented by: Aripiprazole (Abilify) 30 mg PO DAILY [facility] Artificial Tears (Artificial Tears) 1 drop OU BID PRN PRN Reason: DRY EYES Last Admin: 04/12/20 13:26 Dose: 1 drop Documented by: Carbamazepine (Tegretol Xr -) 300 mg PO BID [facility] Hydroxyzine Pamoate (Vistaril -) 50 mg PO TID PRN PRN Reason: ANXIETY Phenylephrine HCl (Joseluis-Synephrine) 25,000 mcg in 250 mls @ 30 mls/hr CVP TITR [facility]; Protocol Last Admin: 04/12/20 05:38 Dose: Not Given Documented by: Sodium Chloride (Normal Saline -) 250 mls @ 3,000 mls/hr IV PRN PRN PRN Reason: Hypotension during Dialysis Stop: 04/11/20 15:03 Sodium Chloride (Normal Saline -) 250 mls @ 3,000 mls/hr IV PRN PRN PRN Reason: Hypotension during Dialysis Stop: 04/11/20 15:04 Levothyroxine Sodium (Synthroid -) 25 mcg PO DAILY@0700 [facility] Last Admin: 04/12/20 06:20 Dose: 25 mcg Documented by: Multivitamins/Minerals/Vitamin C (Tab-A-Vit -) 1 tab PO DAILY [facility] Pantoprazole Sodium (Protonix -) 40 mg PO DAILY [facility] Last Admin: 04/12/20 09:39 Dose: 40 mg Documented by: Pramipexole Dihydrochloride (Mirapex -) 0.5 mg PO TID [facility] Last Admin: 04/12/20 13:26 Dose: 0.5 mg Documented by: Quetiapine Fumarate (Seroquel -) 100 mg PO DAILY@1400 [facility] Last Admin: 04/12/20 13:26 Dose: 100 mg Documented by: Quetiapine Fumarate (Seroquel -) 400 mg PO HS [facility] Last Admin: 04/11/20 21:30 Dose: 400 mg Documented by: Quetiapine Fumarate (Seroquel -) 200 mg PO DAILY@0600 [facility] Last Admin: 04/12/20 06:01 Dose: 200 mg Documented by: - Objective Vital Signs: Vital Signs Temperature 97.5 F L 04/12/20 09:00 Pulse Rate 101 H 04/12/20 09:00 Respiratory Rate 17 04/12/20 09:00 Blood Pressure 111/73 04/12/20 09:00 O2 Sat by Pulse Oximetry (%) 88 L 04/12/20 09:00 Constitutional: Yes: Calm Eyes: Yes: Conjunctiva Clear HENT: Yes: Atraumatic Cardiovascular: Yes: S1, S2 Respiratory: Yes: CTA Bilaterally, Tachypnea Genitourinary: Yes: Incontinence Musculoskeletal: Yes: WNL Edema: No Psychiatric: Yes: Agitated Labs: CBC, BMP 04/12/20 05:30 INR, PTT INR 1.23 (0.83-1.09) H 04/08/20 09:30 Problem List - Problems (1) Altered mental status Code(s): R41.82 - ALTERED MENTAL STATUS, UNSPECIFIED Qualifiers: Altered mental status type: unspecified Qualified Code(s): R41.82 - Altered mental status, unspecified (2) Atrial fibrillation Code(s): I48.91 - UNSPECIFIED ATRIAL FIBRILLATION (3) ESRD (end stage renal disease) Code(s): N18.6 - END STAGE RENAL DISEASE Assessment/Plan Current Medications Generic Name Dose Route Start Last Admin Trade Name Freq PRN Reason Stop Dose Admin Acetaminophen 650 mg 04/09/20 13:32 04/11/20 21:30 Tylenol - PO 650 mg Q6H PRN Administration MILD PAIN Aripiprazole 30 mg 04/12/20 12:00 Abilify PO DAILY [facility] Artificial Tears 1 drop 04/12/20 11:59 04/12/20 13:26 Artificial Tears OU 1 drop BID PRN Administration DRY EYES Carbamazepine 300 mg 04/12/20 12:00 Tegretol Xr - PO BID [facility] Hydroxyzine Pamoate 50 mg 04/12/20 12:39 Vistaril - PO TID PRN ANXIETY Phenylephrine HCl 25,000 mcg in 250 mls @ 30 mls/hr 04/09/20 03:00 04/12/20 05:38 Joseluis-Synephrine CVP Not Given TITR [facility] Protocol 50 MCG/MIN Sodium Chloride 250 mls @ 3,000 mls/hr 04/10/20 15:03 Normal Saline - IV 04/11/20 15:03 PRN PRN Hypotension during Dialysis Sodium Chloride 250 mls @ 3,000 mls/hr 04/10/20 15:04 Normal Saline - IV 04/11/20 15:04 PRN PRN Hypotension during Dialysis Levothyroxine Sodium 25 mcg 04/12/20 07:00 04/12/20 06:20 Synthroid - PO 25 mcg DAILY@0700 [facility] Administration Multivitamins/Minerals/Vitamin C 1 tab 04/13/20 10:00 Tab-A-Vit - PO DAILY [facility] Pantoprazole Sodium 40 mg 04/09/20 10:00 04/12/20 09:39 Protonix - PO 40 mg DAILY [facility] Administration Pramipexole Dihydrochloride 0.5 mg 04/12/20 14:00 04/12/20 13:26 Mirapex - PO 0.5 mg TID [facility] Administration Quetiapine Fumarate 100 mg 04/09/20 14:00 04/12/20 13:26 Seroquel - PO 100 mg DAILY@1400 [facility] Administration Quetiapine Fumarate 400 mg 04/09/20 22:00 04/11/20 21:30 Seroquel - PO 400 mg HS [facility] Administration Quetiapine Fumarate 200 mg 04/10/20 06:00 04/12/20 06:01 Seroquel - PO 200 mg DAILY@0600 [facility] Administration Impression 1. ESRD (TTS) 2. sepsis 3. left buttock hematoma 4. bactermia 5. S/P mechanical fall 6. Anemia 7. COPD 8. hypothyroidism 9. a-fib Plan - s/p HD yesterday - vascular follow up - HD likely tomorrow - monitor lytes - renal diet - monitor hg - cont pressors to map 65 - cont abx - discussed with ICU team
[2020-04-12] MEDS ORDERED: hydrOXYzine PAMOATE 50 MG CAPSULE (FP) PO SCH (14:00)
[2020-04-12 14:04] LABS: HEMATOCRIT 24.2 % (32.4-45.2); HEMOGLOBIN 7.9 GM/dL (10.7-15.3); MCH 32.2 pg (25.7-33.7); MCHC 32.7 g/dl (32.0-36.0); MEAN CELL VOLUME 98.7 fl (80-96); MEAN PLT VOLUME 11.1 fl (7.5-11.1); PLATELET COUNT 70 K/MM3 (134-434); RBC 2.45 M/mm3 (3.60-5.2); RDW 19.8 % (11.6-15.6); WHITE BLOOD COUNT 5.9 K/mm3 (4.0-10.0)
--- NOTE | 2020-04-12 14:06 | PN ---
Progress Note, Physician History of Present Illness: Pt assessed at bedside. Resting comfortable without acute distress. No acute events overnight. - Current Medication List Current Medications: Active Medications Acetaminophen (Tylenol -) 650 mg PO Q6H PRN PRN Reason: MILD PAIN Last Admin: 04/11/20 21:30 Dose: 650 mg Documented by: Aripiprazole (Abilify) 30 mg PO DAILY [facility] Artificial Tears (Artificial Tears) 1 drop OU BID PRN PRN Reason: DRY EYES Last Admin: 04/12/20 13:26 Dose: 1 drop Documented by: Carbamazepine (Tegretol Xr -) 300 mg PO BID [facility] Hydroxyzine Pamoate (Vistaril -) 50 mg PO TID PRN PRN Reason: ANXIETY Phenylephrine HCl (Joseluis-Synephrine) 25,000 mcg in 250 mls @ 30 mls/hr CVP TITR [facility]; Protocol Last Admin: 04/12/20 05:38 Dose: Not Given Documented by: Sodium Chloride (Normal Saline -) 250 mls @ 3,000 mls/hr IV PRN PRN PRN Reason: Hypotension during Dialysis Stop: 04/11/20 15:03 Sodium Chloride (Normal Saline -) 250 mls @ 3,000 mls/hr IV PRN PRN PRN Reason: Hypotension during Dialysis Stop: 04/11/20 15:04 Levothyroxine Sodium (Synthroid -) 25 mcg PO DAILY@0700 [facility] Last Admin: 04/12/20 06:20 Dose: 25 mcg Documented by: Multivitamins/Minerals/Vitamin C (Tab-A-Vit -) 1 tab PO DAILY [facility] Pantoprazole Sodium (Protonix -) 40 mg PO DAILY [facility] Last Admin: 04/12/20 09:39 Dose: 40 mg Documented by: Pramipexole Dihydrochloride (Mirapex -) 0.5 mg PO TID [facility] Last Admin: 04/12/20 13:26 Dose: 0.5 mg Documented by: Quetiapine Fumarate (Seroquel -) 100 mg PO DAILY@1400 [facility] Last Admin: 04/12/20 13:26 Dose: 100 mg Documented by: Quetiapine Fumarate (Seroquel -) 400 mg PO HS [facility] Last Admin: 04/11/20 21:30 Dose: 400 mg Documented by: Quetiapine Fumarate (Seroquel -) 200 mg PO DAILY@0600 [facility] Last Admin: 04/12/20 06:01 Dose: 200 mg Documented by: - Objective Vital Signs: Vital Signs Temperature 97.5 F L 04/12/20 09:00 Pulse Rate 101 H 04/12/20 09:00 Respiratory Rate 17 04/12/20 09:00 Blood Pressure 111/73 04/12/20 09:00 O2 Sat by Pulse Oximetry (%) 88 L 04/12/20 09:00 Additional Findings/Remarks: Constitutional: Well Nourished, Anxious. No: No Distress Eyes: Conjunctiva Clear, EOM Intact HENT: Atraumatic, Normocephalic Neck: Supple. No: Trachea Midline Cardiovascular: Regular Rate and Rhythm Respiratory: Regular, CTA Bilaterally Gastrointestinal: Normal Bowel Sounds, Soft Musculoskeletal: Eccyhmosis on left thigh, trialysis catheter on right thigh Labs: CBC, BMP 04/12/20 05:30 INR, PTT INR 1.23 (0.83-1.09) H 04/08/20 09:30 Problem List - Problems (1) Sepsis Code(s): A41.9 - SEPSIS, UNSPECIFIED ORGANISM (2) ESRD (end stage renal disease) on dialysis Code(s): N18.6 - END STAGE RENAL DISEASE; Z99.2 - DEPENDENCE ON RENAL DIALYSIS (3) Bacteremia Code(s): R78.81 - BACTEREMIA Impression/Plan Impression/Plan: 74 yo female with PMH of ESRD on dialysis, Anemia 2/2 to ESRD, Hypothyroidism, A.Fib (not on AC), COPD, Schizoaffective Do BIBEMS (04/08) for AMS from [facility] and found to be Hypotensive after not receiving dialysis for 1 week. Patient admitted to ICU for sepsis with labile pressure and anemia. Pt found to have grow staph in blood and placed on vancomycin. Blood pressures were labile and required 3 units of vasopressin which was recently weaned today. Her right A V fisutla is non-usable and Her left AV fistula which was previously used is now occluded. We placed a trialysis in the left femoral vein that will allow for 2 rounds of dialysis (04/11). Plan to redo dialysis on 04/13. Pt will undergo de- occlusion of the left AV fistula on 04/14. Her hemoglobin on admission was 5.7, received 2 units pRBC, stabilized at 7.7, slowly downtrended to 6.8, received 1 more unite pRBC, stabilized at 7.9. Anemia suspected to be secondary to ESRD and the left leg hematoma. #Neuro - Hx of restless leg syndrome -Pramipexole (0.5, TID) #Psych - Hx of bipolar - Aripiprazole (30mg) - Quitiapine (300mg noon, 400mg hs) - Carbamazepine (300mg BID) #CV - Hx of Afib, not on AC due to high risk - BP stable, weaned off vasopressin #ID - Afebrile, WBC wnl - Blood culture negative #Renal - Hx of ESRD - Dialysis scheduled for 04/13 via trialysis catheter - Left AV fistula de-occlusion scheduled for 04/14 #Hem/Onc - Anemia 2/2 to ESRD & left thigh hematoma - Hb stable at 7.9 after 1 L transfusion Lines: - Trialysis (R. Fem) on 04/11 (remove 04/13 after dialysis) Dispo: Floors Visit type - Emergency Visit Emergency Visit: Yes ED Registration Date: 04/08/20 Care time: The patient presented to the Emergency Department on the above date and was hospitalized for further evaluation of their emergent condition. - New Patient This patient is new to me today: No - Critical Care Critical Care patient: No - Medication Review Med list reviewed for High Risk Meds patients 65 and older: Yes ATTENDING PHYSICIAN STATEMENT I saw and evaluated the patient. I reviewed the resident's note and discussed the case with the resident. I agree with the resident's findings and plan as documented. SUBJECTIVE: OBJECTIVE: ASSESSMENT AND PLAN:
--- NOTE | 2020-04-12 16:42 | PN ---
Progress Note (short form) - Note Progress Note: 74 yo female with PMH of ESRD on dialysis, Anemia 2/2 to ESRD, Hypothyroidism, A.Fib (not on AC), COPD, Schizoaffective who was admitted to the hospital for septic shock 2/2 staph bacteremia. Patient is off pressors and has been maintaining MAP. Patient also found to have a large gluteal hematoma which required transfusion. H/H has remained stable. Patient stable for the floor. Patient requesting to go home Vital Signs Period Temp Pulse Resp BP Sys/Corbett Pulse Ox Last 24 Hr 97.5 F-98.2 F 77-102 14-24 89-126/52-86 88-100 Physical Exam General: alert, and oriented Heart: irregularly irregular Lungs:CTAL MSK: large dark hematom over L thigh, movement of both extremities intact, no tenderness Skin: Left femoral line for dialysis CBC, BMP 04/12/20 13:28 04/12/20 05:30 Microbiology 04/11/20 22:30 Stool Clostridioides difficile Antigen - Preliminary 04/11/20 22:30 Stool Clostridioides difficile Toxin Assay - Preliminary 04/08/20 09:30 Blood - Peripheral Venous Blood Culture - Final Staph Capitis Subsp Ureolyticu 04/10/20 18:40 Blood - Peripheral Venous Blood Culture - Preliminary NO GROWTH OBTAINED AFTER 24 HOURS, INCUBATION TO CONTINUE FOR 4 DAYS. L femoral line for dialysis on day 2* reevaluate access tomorrow
[2020-04-12] MEDS: ARIPiprazole 15 MG TABLET PO SCH (18:32)
[2020-04-12] MEDS ORDERED: amLODIPine BESYLATE 5 MG TABLET (FP) PO ONE (21:24)
--- NOTE | 2020-04-12 21:42 | PN ---
Teaching Attending Note Name of Resident: Sherlyn Humphries ATTENDING PHYSICIAN STATEMENT I saw and evaluated the patient. I reviewed the resident's note and discussed the case with the resident. I agree with the resident's findings and plan as documented. SUBJECTIVE: Patient seen and examined at bedside, admitted for hyperkalemia, sepsis, Afib w/ RVR, stable for transfer out of ICU to telemetry, still Afib w/ HR 90-120s, denies complaints. OBJECTIVE: GA small, elderly, mildly agitated, OOB to chair HEENT NC, neck w/ contracture, dry MM Chest crackles at bases, poor inspiratory effort CVS Irregularly irregular, rate 90-120s Abd obese, Soft, NT, BS+ Ext 1+ LE edema, no calf tenderness Vital Signs (72 hours) 04/10/20 04/10/20 04/10/20 12:00 13:39 14:00 Temperature 98.7 F 98.0 F Pulse Rate 78 76 84 Respiratory 20 25 H Rate Blood Pressure 98/65 87/42 L 89/55 L O2 Sat by Pulse 95 94 L Oximetry (%) 04/10/20 04/10/20 04/10/20 15:20 16:00 18:30 Temperature Pulse Rate 86 86 81 Respiratory 25 H Rate Blood Pressure 89/55 L 104/59 L 109/66 O2 Sat by Pulse 95 Oximetry (%) 04/10/20 04/10/20 04/10/20 19:00 20:00 21:00 Temperature Pulse Rate 81 74 88 Respiratory 18 24 H 20 Rate Blood Pressure 118/67 104/84 118/62 O2 Sat by Pulse 92 L 95 94 L Oximetry (%) 04/10/20 04/10/20 04/11/20 22:00 23:00 00:00 Temperature 98.4 F 98.2 F Pulse Rate 78 74 84 Respiratory 24 H 19 18 Rate Blood Pressure 108/58 L 97/53 L 116/62 O2 Sat by Pulse 95 93 L 94 L Oximetry (%) 04/11/20 04/11/20 04/11/20 01:00 02:00 03:00 Temperature 98.2 F Pulse Rate 65 70 70 Respiratory 21 H 19 21 H Rate Blood Pressure 108/72 108/72 114/66 O2 Sat by Pulse 94 L 94 L Oximetry (%) 04/11/20 04/11/20 04/11/20 04:00 05:00 06:00 Temperature 98.7 F Pulse Rate 68 75 74 Respiratory 20 20 20 Rate Blood Pressure 107/58 L 115/66 115/66 O2 Sat by Pulse 94 L 94 L Oximetry (%) 04/11/20 04/11/20 04/11/20 08:00 09:00 10:00 Temperature 97.9 F Pulse Rate 80 79 Respiratory 18 20 Rate Blood Pressure 105/68 112/65 O2 Sat by Pulse 95 95 Oximetry (%) 04/11/20 04/11/20 04/11/20 10:22 14:00 16:00 Temperature 97.6 F Pulse Rate 80 88 87 Respiratory 21 H 20 Rate Blood Pressure 112/65 104/61 133/79 O2 Sat by Pulse 93 L Oximetry (%) 04/11/20 04/11/20 04/11/20 17:10 17:15 17:45 Temperature 98.2 F Pulse Rate 100 H 102 H 100 H Respiratory 20 18 18 Rate Blood Pressure 112/70 115/70 102/52 L O2 Sat by Pulse Oximetry (%) 04/11/20 04/11/20 04/11/20 18:00 18:15 18:45 Temperature Pulse Rate 95 H 98 H 86 Respiratory 24 H 18 20 Rate Blood Pressure 126/72 102/52 L 95/59 L O2 Sat by Pulse 95 Oximetry (%) 04/11/20 04/11/20 04/11/20 19:00 19:15 19:45 Temperature Pulse Rate 90 87 94 H Respiratory 18 18 Rate Blood Pressure 107/57 L 109/80 120/63 O2 Sat by Pulse Oximetry (%) 04/11/20 04/11/20 04/11/20 20:00 20:15 20:30 Temperature 97.8 F Pulse Rate 99 H 93 H 90 Respiratory 20 18 20 Rate Blood Pressure 108/72 90/60 110/62 O2 Sat by Pulse 98 Oximetry (%) 04/11/20 04/11/20 04/12/20 20:49 22:00 00:00 Temperature Pulse Rate 87 87 Respiratory 20 18 17 Rate Blood Pressure 117/75 119/56 L O2 Sat by Pulse 98 98 95 Oximetry (%) 04/12/20 04/12/20 04/12/20 02:00 04:00 05:37 Temperature 97.6 F Pulse Rate 77 92 H 92 H Respiratory 14 15 Rate Blood Pressure 102/69 100/86 100/86 O2 Sat by Pulse 100 100 Oximetry (%) 04/12/20 04/12/20 04/12/20 06:00 08:00 09:00 Temperature 98 F 97.5 F L Pulse Rate 91 H 90 101 H Respiratory 17 17 17 Rate Blood Pressure 107/73 89/67 L 111/73 O2 Sat by Pulse 100 88 L 88 L Oximetry (%) 04/12/20 04/12/20 04/12/20 11:00 13:00 15:00 Temperature 98 F Pulse Rate 82 82 100 H Respiratory 15 15 19 Rate Blood Pressure 109/77 130/74 O2 Sat by Pulse Oximetry (%) 04/12/20 04/12/20 04/12/20 17:00 19:00 21:00 Temperature 98.6 F 98.0 F 98.2 F Pulse Rate 107 H 87 126 H Respiratory 19 19 19 Rate Blood Pressure 124/71 124/63 130/70 O2 Sat by Pulse 107 H 85 L 80 L Oximetry (%) 04/12/20 04/13/20 04/13/20 23:00 01:00 03:00 Temperature 98.4 F Pulse Rate 131 H 133 H 115 H Respiratory 19 19 19 Rate Blood Pressure 149/81 119/70 107/70 O2 Sat by Pulse 92 L 93 L 93 L Oximetry (%) 04/13/20 04/13/20 05:00 06:54 Temperature 98.2 F Pulse Rate 132 H 128 H Respiratory 19 19 Rate Blood Pressure 103/73 105/65 O2 Sat by Pulse 92 L 93 L Oximetry (%) Microbiology 04/10/20 18:40 Blood - Peripheral Venous Blood Culture - Preliminary NO GROWTH OBTAINED AFTER 48 HOURS, INCUBATION TO CONTINUE FOR 3 DAYS. 04/11/20 22:30 Stool Clostridioides difficile Antigen - Preliminary 04/11/20 22:30 Stool Clostridioides difficile Toxin Assay - Preliminary 04/08/20 09:30 Blood - Peripheral Venous Blood Culture - Final Staph Capitis Subsp Ureolyticu 04/08/20 09:35 Blood - Peripheral Venous Blood Culture - Final Staphylococcus Epidermidis Laboratory Results - last 24 hr 04/11/20 04/12/20 04/13/20 20:00 13:28 05:40 WBC 5.9 RBC 2.45 L Hgb 7.9 L Hct 24.2 L MCV 98.7 H MCH 32.2 MCHC 32.7 RDW 19.8 H Plt Count 70 L D MPV 11.1 Absolute Neuts (auto) Neutrophils % Lymphocytes % Monocytes % Eosinophils % Basophils % Nucleated RBC % Sodium Potassium Chloride Carbon Dioxide Anion Gap BUN Creatinine Est GFR (CKD-EPI)AfAm Est GFR (CKD-EPI)NonAf Random Glucose Calcium Phosphorus Magnesium Total Bilirubin AST ALT Alkaline Phosphatase Total Protein Albumin Random Vancomycin 18.2 Hep C Ab Diagnostic <0.1 04/13/20 04/13/20 05:40 05:40 WBC 5.4 RBC 2.42 L Hgb 7.7 L Hct 23.6 L MCV 97.4 H MCH 31.7 MCHC 32.6 RDW 20.2 H Plt Count 67 L MPV 10.2 Absolute Neuts (auto) 4.3 Neutrophils % 78.5 Lymphocytes % 8.4 Monocytes % 9.7 Eosinophils % 2.9 Basophils % 0.5 Nucleated RBC % 1 H Sodium 140 Potassium 3.6 Chloride 103 Carbon Dioxide 28 Anion Gap 10 BUN 43.7 H Creatinine 6.7 H Est GFR (CKD-EPI)AfAm 6.54 Est GFR (CKD-EPI)NonAf 5.64 Random Glucose 61 L Calcium 7.7 L Phosphorus 5.0 H Magnesium 2.2 Total Bilirubin 1.6 H AST 10 L ALT 10 L Alkaline Phosphatase 86 Total Protein 5.7 L Albumin 2.6 L Random Vancomycin Hep C Ab Diagnostic Home Medications Medication Instructions Recorded Acetaminophen [Non-Aspirin Extra 1,000 mg PO BID 04/08/20 Strength] Amlodipine Besylate [Norvasc -] 10 mg PO DAILY 04/08/20 Aripiprazole 30 mg PO DAILY 04/08/20 Calcium Acetate 2 tab PO DAILY 04/08/20 Carbamazepine [Carbamazepine ER] 300 mg PO BID 04/08/20 Cyclobenzaprine HCl 2 tab PO DAILY 04/08/20 Febuxostat [Uloric -] 80 mg PO DAILY 04/08/20 Furosemide 80 mg PO DAILY 04/08/20 Multivitamin 1 each PO DAILY 04/08/20 Pantoprazole Sodium [Protonix] 40 mg PO DAILY 04/08/20 Pramipexole Di-HCl [Mirapex] 0.5 mg PO TID 04/08/20 Pravastatin Sodium [Pravachol (Nf)] 40 mg PO HS 04/08/20 Quetiapine Fumarate [Quetiapine 200 mg PO DAILY 04/08/20 Fumarate ER] Quetiapine Fumarate [Seroquel -] 100 mg PO DAILY 04/08/20 Quetiapine Fumarate [Seroquel -] 400 mg PO HS 04/08/20 Sevelamer Carbonate 800 mg PO DAILY 04/08/20 hydrOXYzine PAMOATE [Vistaril -] 50 mg PO TID 04/08/20 propRANOLol HCL [Propranolol HCl 120 mg PO BID 04/08/20 ER] Quetiapine Fumarate [Seroquel -] 200 mg PO DAILY 04/12/20 Current Medications Generic Name Dose Route Start Last Admin Trade Name Freq PRN Reason Stop Dose Admin Acetaminophen 650 mg 04/09/20 13:32 04/11/20 21:30 Tylenol - PO 650 mg Q6H PRN Administration MILD PAIN Amlodipine Besylate 10 mg 04/13/20 10:00 04/13/20 10:10 Norvasc - PO 10 mg DAILY [facility] Administration Aripiprazole 30 mg 04/12/20 12:00 04/13/20 09:35 Abilify PO 30 mg DAILY [facility] Administration Artificial Tears 1 drop 04/12/20 11:59 04/12/20 13:26 Artificial Tears OU 1 drop BID PRN Administration DRY EYES Carbamazepine 300 mg 04/12/20 12:00 04/13/20 10:10 Tegretol Xr - PO 300 mg BID [facility] Administration Hydroxyzine Pamoate 50 mg 04/12/20 12:39 Vistaril - PO TID PRN ANXIETY Phenylephrine HCl 25,000 mcg in 250 mls @ 30 mls/hr 04/09/20 03:00 04/13/20 09:36 Joseluis-Synephrine CVP Not Given TITR [facility] Protocol 50 MCG/MIN Levothyroxine Sodium 25 mcg 04/12/20 07:00 04/13/20 06:49 Synthroid - PO 25 mcg DAILY@0700 [facility] Administration Multivitamins/Minerals/Vitamin C 1 tab 04/13/20 10:00 04/13/20 09:34 Tab-A-Vit - PO 1 tab DAILY [facility] Administration Pantoprazole Sodium 40 mg 04/09/20 10:00 04/13/20 09:34 Protonix - PO 40 mg DAILY [facility] Administration Pramipexole Dihydrochloride 0.5 mg 04/12/20 14:00 04/13/20 06:49 Mirapex - PO 0.5 mg TID [facility] Administration Quetiapine Fumarate 100 mg 04/09/20 14:00 04/12/20 13:26 Seroquel - PO 100 mg DAILY@1400 [facility] Administration Quetiapine Fumarate 400 mg 04/09/20 22:00 04/12/20 22:09 Seroquel - PO 400 mg HS [facility] Administration Quetiapine Fumarate 200 mg 04/10/20 06:00 04/13/20 06:49 Seroquel - PO 200 mg DAILY@0600 [facility] Administration ASSESSMENT AND PLAN: 74 F Staph Bacteremia Septic Shock (improved) s/p Fall Large Left Gluteal Hematoma Acute Blood Loss Anemia Atrial Fibrillation with RVR ESRD on HD COPD Hypothyroidism Schizoaffective Disorder Anxiety Plan: Finished abx regimen, off now per ID recs Cont. to follow cultures CBC monitoring, transfuse if <7.0, avoid fluid overload Renal following for HD Will need permanent HD access Monitor in tele due to Afib w/ RVR, start Metoprolol succinate 12.5mg and titrate up DVt ppx: SCD
--- NOTE | 2020-04-12 22:38 | PN ---
Progress Note (short form) - Note Progress Note: Due to patient's hx of Afib w/RVR and the fact that she'd been off rate control, the transfer from ICU was switched to Tele. Patient was given half her normal dose of amlodipine tonight @ 10:30 PM (5mg). She will continue with her usual 10 mg dose tomorrow morning.
[2020-04-12] MEDS ORDERED: MIDAZOLAM HCL 2 MG/2 ML SINGLE DOSE VIAL IVPUSH ONE ×2 (23:31)
[2020-04-13] MEDS ORDERED: PT OWN MED DRAWER 7, Y5N ONE ×4 (06:29→22:07)
[2020-04-13] MEDS: PRAMIPEXOLE DIHYDROCHLORIDE 0.5 MG TABLET PO SCH ×3 (06:49→21:14)
[2020-04-13] MEDS: QUEtiapine FUMARATE 200 MG TABLET PO SCH (06:49)
[2020-04-13] MEDS: LEVOTHYROXINE NA 25 MCG TABLET (FP) PO SCH (06:49)
[2020-04-13 07:07] LABS: BASO % 0.5 % (0-2.0); EOS % 2.9 % (0-4.5); HEMATOCRIT 23.6 % (32.4-45.2); HEMOGLOBIN 7.7 GM/dL (10.7-15.3); LYMPH % 8.4 % (8-40); MCH 31.7 pg (25.7-33.7); MCHC 32.6 g/dl (32.0-36.0); MEAN CELL VOLUME 97.4 fl (80-96); MEAN PLT VOLUME 10.2 fl (7.5-11.1); MONO % 9.7 % (3.8-10.2); NEUT % 78.5 % (42.8-82.8); PLATELET COUNT 67 K/MM3 (134-434); RBC 2.42 M/mm3 (3.60-5.2); RDW 20.2 % (11.6-15.6); WHITE BLOOD COUNT 5.4 K/mm3 (4.0-10.0)
[2020-04-13 07:32] LABS: ALBUMIN 2.6 g/dl (3.4-5.0); BILIRUBIN,TOTAL 1.6 mg/dL (0.2-1); BLOOD UREA NITROGEN 43.7 mg/dL (7-18); CALCIUM 7.7 mg/dL (8.5-10.1); CREATININE 6.7 mg/dL (0.55-1.3); MAGNESIUM 2.2 mg/dL (1.8-2.4); POTASSIUM 3.6 mmol/L (3.5-5.1); TOT PROT 5.7 g/dl (6.4-8.2)
--- NOTE | 2020-04-13 08:47 | PN ---
Progress Note (short form) - Note Progress Note: VASCULAR SURGERY Going for HD today via femoral shiley. Pre-op for LUE AVG declot 04/14/20 Medical optimization. Problem List - Problems (1) Clotted renal dialysis AV graft Code(s): T82.868A - THROMBOSIS DUE TO VASCULAR PROSTH DEV/GRFT, INIT (2) Altered mental status Code(s): R41.82 - ALTERED MENTAL STATUS, UNSPECIFIED Qualifiers: Altered mental status type: unspecified Qualified Code(s): R41.82 - Altered mental status, unspecified (3) Anemia Code(s): D64.9 - ANEMIA, UNSPECIFIED Qualifiers: Anemia type: unspecified type Qualified Code(s): D64.9 - Anemia, unspecified (4) ESRD (end stage renal disease) on dialysis Code(s): N18.6 - END STAGE RENAL DISEASE; Z99.2 - DEPENDENCE ON RENAL DIALYSIS (5) Hematoma of thigh Code(s): S70.10XA - CONTUSION OF UNSPECIFIED THIGH, INITIAL ENCOUNTER
[2020-04-13] MEDS: PANTOPRAZOLE 40 MG TABLET PO SCH (09:34)
[2020-04-13] MEDS: ARIPiprazole 15 MG TABLET PO SCH (09:35)
[2020-04-13] MEDS: PHENYLEPHRINE NS PREMIX 25,000 MCG/250 ML BAG CVP SCH (09:36)
[2020-04-13] MEDS ORDERED: MULTIVITAMINS (DAILY MVI) TABLET (FP) PO SCH (10:00)
[2020-04-13] MEDS: amLODIPine BESYLATE 10 MG TABLET (FP) PO SCH ×2 (10:10→11:29)
--- NOTE | 2020-04-13 11:07 | PN ---
Progress Note (short form) - Note Progress Note: Patient seen and examined in the ICU. Awake and alert. Denies CP or SOB. Remains off pressors. Intake & Output 04/10/20 04/11/20 04/12/20 04/13/20 23:59 23:59 23:59 23:59 Intake Total 782.5 1639.6 474 50 Output Total 0 3502 0 0 Balance 782.5 -1862.4 474 50 Weight 186 lb 187 lb 1.6 oz 187 lb 7 oz 187 lb 11.93 oz Last Vital Signs Temp Pulse Resp BP Pulse Ox 98.2 F 123 H 23 H 122/61 92 L 04/13/20 06:54 04/13/20 09:00 04/13/20 09:00 04/13/20 10:00 04/13/20 10:00 Active Medications Acetaminophen (Tylenol -) 650 mg PO Q6H PRN PRN Reason: MILD PAIN Last Admin: 04/11/20 21:30 Dose: 650 mg Documented by: Amlodipine Besylate (Norvasc -) 10 mg PO DAILY [facility] Last Admin: 04/13/20 10:10 Dose: 10 mg Documented by: Aripiprazole (Abilify) 30 mg PO DAILY [facility] Last Admin: 04/13/20 09:35 Dose: 30 mg Documented by: Artificial Tears (Artificial Tears) 1 drop OU BID PRN PRN Reason: DRY EYES Last Admin: 04/12/20 13:26 Dose: 1 drop Documented by: Carbamazepine (Tegretol Xr -) 300 mg PO BID [facility] Last Admin: 04/13/20 10:10 Dose: 300 mg Documented by: Hydroxyzine Pamoate (Vistaril -) 50 mg PO TID PRN PRN Reason: ANXIETY Phenylephrine HCl (Joseluis-Synephrine) 25,000 mcg in 250 mls @ 30 mls/hr CVP TITR [facility]; Protocol Last Admin: 04/13/20 09:36 Dose: Not Given Documented by: Levothyroxine Sodium (Synthroid -) 25 mcg PO DAILY@0700 [facility] Last Admin: 04/13/20 06:49 Dose: 25 mcg Documented by: Multivitamins/Minerals/Vitamin C (Tab-A-Vit -) 1 tab PO DAILY [facility] Last Admin: 04/13/20 09:34 Dose: 1 tab Documented by: Pantoprazole Sodium (Protonix -) 40 mg PO DAILY [facility] Last Admin: 04/13/20 09:34 Dose: 40 mg Documented by: Pramipexole Dihydrochloride (Mirapex -) 0.5 mg PO TID [facility] Last Admin: 04/13/20 06:49 Dose: 0.5 mg Documented by: Quetiapine Fumarate (Seroquel -) 100 mg PO DAILY@1400 [facility] Last Admin: 04/12/20 13:26 Dose: 100 mg Documented by: Quetiapine Fumarate (Seroquel -) 400 mg PO HS [facility] Last Admin: 04/12/20 22:09 Dose: 400 mg Documented by: Quetiapine Fumarate (Seroquel -) 200 mg PO DAILY@0600 [facility] Last Admin: 04/13/20 06:49 Dose: 200 mg Documented by: Gen: NAD at rest Heart: RRR Lung: decreased breath sounds at the bases Abd: soft, nontender Ext: no edema, left flank ecchymoses Laboratory Results - last 24 hr 04/11/20 04/12/20 04/13/20 20:00 13:28 05:40 WBC 5.9 RBC 2.45 L Hgb 7.9 L Hct 24.2 L MCV 98.7 H MCH 32.2 MCHC 32.7 RDW 19.8 H Plt Count 70 L D MPV 11.1 Absolute Neuts (auto) Neutrophils % Lymphocytes % Monocytes % Eosinophils % Basophils % Nucleated RBC % Sodium Potassium Chloride Carbon Dioxide Anion Gap BUN Creatinine Est GFR (CKD-EPI)AfAm Est GFR (CKD-EPI)NonAf Random Glucose Calcium Phosphorus Magnesium Total Bilirubin AST ALT Alkaline Phosphatase Total Protein Albumin Random Vancomycin 18.2 Hep C Ab Diagnostic <0.1 04/13/20 04/13/20 05:40 05:40 WBC 5.4 RBC 2.42 L Hgb 7.7 L Hct 23.6 L MCV 97.4 H MCH 31.7 MCHC 32.6 RDW 20.2 H Plt Count 67 L MPV 10.2 Absolute Neuts (auto) 4.3 Neutrophils % 78.5 Lymphocytes % 8.4 Monocytes % 9.7 Eosinophils % 2.9 Basophils % 0.5 Nucleated RBC % 1 H Sodium 140 Potassium 3.6 Chloride 103 Carbon Dioxide 28 Anion Gap 10 BUN 43.7 H Creatinine 6.7 H Est GFR (CKD-EPI)AfAm 6.54 Est GFR (CKD-EPI)NonAf 5.64 Random Glucose 61 L Calcium 7.7 L Phosphorus 5.0 H Magnesium 2.2 Total Bilirubin 1.6 H AST 10 L ALT 10 L Alkaline Phosphatase 86 Total Protein 5.7 L Albumin 2.6 L Random Vancomycin Hep C Ab Diagnostic ASSESSMENT AND PLAN: Staph Bacteremia Septic Shock improving s/p Fall Large Left Gluteal Hematoma Acute Blood Loss Anemia Atrial Fibrillation ESRD on HD COPD Hypothyroidism Schizoaffective Disorder - antibiotics per ID - f/u pending cultures - monitor H/H - transfuse as needed - off pressors, maintain MAP >65 - HD per renal - will need AVF declotting - psych meds - Cardiac Telemetry monitoring Dr Park
[2020-04-13] MEDS: METOPROLOL TARTRATE 25 MG TABLET (FP) PO SCH ×2 (11:38→21:14)
--- NOTE | 2020-04-13 11:48 | PN ---
Progress Note, Physician Chief Complaint: AMS ESRD Anemia Bacteremia History of Present Illness: Slime Mcadams is a 74 y/o female with PMH significant for ESRD on dialysis (), a-fib not on AC (unclear reason but does fall), COPD, hypothyroidism, biploar/schizoaffective disorder, admitted after she was [facility] with [facility]. She was hypotensive and severely anemic and bacteremic with GPC. Afib rate controlled, troponin negative. Pt walks with walker at [facility]. Pt had a fall 04/06/20 at [facility]- ER evaluation with CT head + cervical spine were normal. Pt was discharged back to [facility] Returned 04/08/20 with increased changed in mentation Repeat CT head shows chronic right lacunar infarct, otherwise no changes. BC + Staph coag neg Stared on IV abx Also found to be anemic- transfused 2 units of PRBC upon admission Currently also on pressors to maintaining MAP >65 04/11/20:NAD, anxious, Still confused Hg 6.8, PRBC 1 unit ordered HD today Awaiting repeat BC 04/12/20: Still on pressors Trialysis catheter Received HD yesterday Awaiting AVF thrombectomy once off pressors 04/13/20: Off pressors, maintaining MAP >65 mm Hg Going for HD today via femoral shiley. GAYLA AVG declot 04/14/20 - Current Medication List Current Medications: Active Medications Acetaminophen (Tylenol -) 650 mg PO Q6H PRN PRN Reason: MILD PAIN Last Admin: 04/11/20 21:30 Dose: 650 mg Documented by: Aripiprazole (Abilify) 30 mg PO DAILY [facility] Last Admin: 04/13/20 09:35 Dose: 30 mg Documented by: Artificial Tears (Artificial Tears) 1 drop OU BID PRN PRN Reason: DRY EYES Last Admin: 04/12/20 13:26 Dose: 1 drop Documented by: Carbamazepine (Tegretol Xr -) 300 mg PO BID [facility] Last Admin: 04/13/20 10:10 Dose: 300 mg Documented by: Hydroxyzine Pamoate (Vistaril -) 50 mg PO TID PRN PRN Reason: ANXIETY Phenylephrine HCl (Joseluis-Synephrine) 25,000 mcg in 250 mls @ 30 mls/hr CVP TITR [facility]; Protocol Last Admin: 04/13/20 09:36 Dose: Not Given Documented by: Levothyroxine Sodium (Synthroid -) 25 mcg PO DAILY@0700 [facility] Last Admin: 04/13/20 06:49 Dose: 25 mcg Documented by: Metoprolol Tartrate (Lopressor -) 12.5 mg PO BID [facility] Last Admin: 04/13/20 11:38 Dose: 12.5 mg Documented by: Multivitamins/Minerals/Vitamin C (Tab-A-Vit -) 1 tab PO DAILY [facility] Last Admin: 04/13/20 09:34 Dose: 1 tab Documented by: Pantoprazole Sodium (Protonix -) 40 mg PO DAILY [facility] Last Admin: 04/13/20 09:34 Dose: 40 mg Documented by: Pramipexole Dihydrochloride (Mirapex -) 0.5 mg PO TID [facility] Last Admin: 04/13/20 06:49 Dose: 0.5 mg Documented by: Quetiapine Fumarate (Seroquel -) 100 mg PO DAILY@1400 [facility] Last Admin: 04/12/20 13:26 Dose: 100 mg Documented by: Quetiapine Fumarate (Seroquel -) 400 mg PO HS [facility] Last Admin: 04/12/20 22:09 Dose: 400 mg Documented by: Quetiapine Fumarate (Seroquel -) 200 mg PO DAILY@0600 [facility] Last Admin: 04/13/20 06:49 Dose: 200 mg Documented by: - Objective Vital Signs: Vital Signs Temperature 98.2 F 04/13/20 06:54 Pulse Rate 123 H 04/13/20 09:00 Respiratory Rate 23 H 04/13/20 09:00 Blood Pressure 122/61 04/13/20 10:00 O2 Sat by Pulse Oximetry (%) 92 L 04/13/20 10:00 Constitutional: Yes: Well Nourished, No Distress Cardiovascular: Yes: Regular Rate and Rhythm Respiratory: Yes: Regular, CTA Bilaterally Gastrointestinal: Yes: Normal Bowel Sounds, Soft Genitourinary: Yes: Oliguria Musculoskeletal: Yes: WNL Extremities: Yes: WNL Edema: No Peripheral Pulses WNL: Yes Neurological: Yes: Alert, Oriented Psychiatric: Yes: Alert, Oriented Labs: CBC, BMP 04/13/20 05:40 04/13/20 05:40 INR, PTT INR 1.23 (0.83-1.09) H 04/08/20 09:30 Problem List - Problems (1) Altered mental status Assessment/Plan: -CT head chronic lacunar infarct, no acute pathology -2/2 to acute sepsis -BC: contaminated? Microbiology 04/08/20 09:35 Blood - Peripheral Venous Blood Culture - Final Staphylococcus Epidermidis 04/08/20 09:30 Blood - Peripheral Venous Blood Culture - Preliminary Staphylococcus Coagulase Neg -Repeat BC pending -Off IV abx Problems reviewed: Yes Code(s): R41.82 - ALTERED MENTAL STATUS, UNSPECIFIED Qualifiers: Altered mental status type: unspecified Qualified Code(s): R41.82 - Altered mental status, unspecified (2) Anemia Assessment/Plan: -multifactorial -Iron+ B12 normal -stool OB negative -TSH elvated, FT4 low -Transfuse only if Hg<7.0 to avoid fluid overload -Procrit as per nephrology Problems reviewed: Yes Code(s): D64.9 - ANEMIA, UNSPECIFIED Qualifiers: Anemia type: unspecified type Qualified Code(s): D64.9 - Anemia, unspecified (3) Atrial fibrillation Assessment/Plan: -Not on AC due frequent falls, risks>benefits Problems reviewed: Yes Code(s): I48.91 - UNSPECIFIED ATRIAL FIBRILLATION (4) Bacteremia Assessment/Plan: -BC: Microbiology 04/08/20 09:35 Blood - Peripheral Venous Blood Culture - Preliminary Staphylococcus Coagulase Neg 04/08/20 09:30 Blood - Peripheral Venous Blood Culture - Preliminary Staphylococcus Coagulase Neg -ID consult -afebrile -Off IV abx -Repeat BC pending Problems reviewed: Yes Code(s): R78.81 - BACTEREMIA (5) ESRD (end stage renal disease) on dialysis Assessment/Plan: -Nephrology on board -AVF clotted- needs thrombectomy once off pressors -Vascular consult appreciated -HD as per nephrology Problems reviewed: Yes Code(s): N18.6 - END STAGE RENAL DISEASE; Z99.2 - DEPENDENCE ON RENAL DIALYSIS (6) Sepsis Assessment/Plan: -as above -LA normal Problems reviewed: Yes Code(s): A41.9 - SEPSIS, UNSPECIFIED ORGANISM (7) Fall Assessment/Plan: -Safety precautions -Physical therapy when more stable Problems reviewed: Yes Code(s): W19.XXXA - UNSPECIFIED FALL, INITIAL ENCOUNTER (8) Acute metabolic encephalopathy Problems reviewed: Yes Code(s): G93.41 - METABOLIC ENCEPHALOPATHY (9) Hypothyroidism Assessment/Plan: -Start Levothyroxine 25 mcg po daily -Recheck TSH,FT4 in 6 weeks on 05/23/20 Problems reviewed: Yes Code(s): E03.9 - HYPOTHYROIDISM, UNSPECIFIED (10) Clotted renal dialysis AV graft Assessment/Plan: -Going for HD today via femoral shiley -LUE AVG declot 04/14/20 -Medically cleared for OR with acceptable OR risks for AM -NPO after midnight Problems reviewed: Yes Code(s): T82.868A - THROMBOSIS DUE TO VASCULAR PROSTH DEV/GRFT, INIT Assessment/Plan See problem list
--- NOTE | 2020-04-13 13:28 | PN ---
Progress Note (short form) - Note Progress Note: awake and alert no fevers being dialyzed Vital Signs Period Temp Pulse Resp BP Sys/Cor[place]ett Pulse Ox Last 24 Hr 98 F-98.6 F 87-133 19- 90-149/60-81 80-107 on HD via femoral line (for removal after HD today) CBC, BMP 04/13/20 05:40 04/13/20 05:40 Microbiology 04/11/20 22:30 Stool Clostridioides difficile Antigen - Final 04/11/20 22:30 Stool Clostridioides difficile Toxin Assay - Final 04/10/20 18:40 Blood - Peripheral Venous Blood Culture - Preliminary NO GROWTH OBTAINED AFTER 48 HOURS, INCUBATION TO C ONTINUE FOR 3 DAYS. 04/08/20 09:30 Blood - Peripheral Venous Blood Culture - Final Staph Capitis Subsp Ureolyticu 04/08/20 09:35 Blood - Peripheral Venous Blood Culture - Final Staphylococcus Epidermidis a/p 2 different coag negative staphs isolated in the blood cultures c/w contaminant repeat blood culture today negative now off pressors no need for further antiibotics esrd/hd- s/p dialysis, avg is thrombosed-management per renal and vascular s/p fall with large hematoma bipolar disorder please call back if needed Problem List - Problems (1) Bacteremia Code(s): R78.81 - BACTEREMIA (2) Fall Code(s): W19.XXXA - UNSPECIFIED FALL, INITIAL ENCOUNTER (3) ESRD (end stage renal disease) on dialysis Code(s): N18.6 - END STAGE RENAL DISEASE; Z99.2 - DEPENDENCE ON RENAL DIALYSIS
[2020-04-13] MEDS ORDERED: SODIUM CHLORIDE 250 ML IV PRN (13:30)
[2020-04-13] MEDS ORDERED: EPOETIN ALFA 10,000 UNIT/1 ML VIAL IVPUSH ONE (13:45)
[2020-04-13] MEDS: QUEtiapine FUMARATE 100 MG TABLET (FP) PO SCH (14:00)
[2020-04-13] MEDS ORDERED: METOPROLOL TARTRATE 5 MG/5 ML VIAL IVPUSH PRN (15:08)
--- NOTE | 2020-04-13 15:56 | PN ---
Progress Note, Physician History of Present Illness: Pt seen and examined at bedside. She is tolerating diet. - Current Medication List Current Medications: Active Medications Acetaminophen (Tylenol -) 650 mg PO Q6H PRN PRN Reason: MILD PAIN Last Admin: 04/11/20 21:30 Dose: 650 mg Documented by: Aripiprazole (Abilify) 30 mg PO DAILY [facility] Last Admin: 04/13/20 09:35 Dose: 30 mg Documented by: Artificial Tears (Artificial Tears) 1 drop OU BID PRN PRN Reason: DRY EYES Last Admin: 04/12/20 13:26 Dose: 1 drop Documented by: Carbamazepine (Tegretol Xr -) 300 mg PO BID [facility] Last Admin: 04/13/20 10:10 Dose: 300 mg Documented by: Hydroxyzine Pamoate (Vistaril -) 50 mg PO TID PRN PRN Reason: ANXIETY Phenylephrine HCl (Joseluis-Synephrine) 25,000 mcg in 250 mls @ 30 mls/hr CVP TITR [facility]; Protocol Last Admin: 04/13/20 09:36 Dose: Not Given Documented by: Sodium Chloride (Normal Saline -) 250 mls @ 3,000 mls/hr IV PRN PRN PRN Reason: Hypotension during Dialysis Stop: 04/14/20 13:29 Levothyroxine Sodium (Synthroid -) 25 mcg PO DAILY@0700 [facility] Last Admin: 04/13/20 06:49 Dose: 25 mcg Documented by: Metoprolol Tartrate (Lopressor -) 12.5 mg PO BID [facility] Last Admin: 04/13/20 11:38 Dose: 12.5 mg Documented by: Metoprolol Tartrate (Lopressor Injection -) 5 mg IVPUSH Q4H PRN PRN Reason: HYPERTENSION Multivitamins/Minerals/Vitamin C (Tab-A-Vit -) 1 tab PO DAILY [facility] Last Admin: 04/13/20 09:34 Dose: 1 tab Documented by: Pantoprazole Sodium (Protonix -) 40 mg PO DAILY [facility] Last Admin: 04/13/20 09:34 Dose: 40 mg Documented by: Pramipexole Dihydrochloride (Mirapex -) 0.5 mg PO TID [facility] Last Admin: 04/13/20 06:49 Dose: 0.5 mg Documented by: Quetiapine Fumarate (Seroquel -) 100 mg PO DAILY@1400 [facility] Last Admin: 04/12/20 13:26 Dose: 100 mg Documented by: Quetiapine Fumarate (Seroquel -) 400 mg PO HS [facility] Last Admin: 04/12/20 22:09 Dose: 400 mg Documented by: Quetiapine Fumarate (Seroquel -) 200 mg PO DAILY@0600 [facility] Last Admin: 04/13/20 06:49 Dose: 200 mg Documented by: - Objective Vital Signs: Vital Signs Temperature 98.0 F 04/13/20 13:10 Pulse Rate 121 H 04/13/20 15:00 Respiratory Rate 20 04/13/20 15:00 Blood Pressure 148/82 04/13/20 15:00 O2 Sat by Pulse Oximetry (%) 92 L 04/13/20 10:00 Constitutional: Yes: Calm Eyes: Yes: Conjunctiva Clear HENT: Yes: Atraumatic Neck: Yes: Supple Cardiovascular: Yes: S1, S2 Respiratory: Yes: CTA Bilaterally Gastrointestinal: Yes: Normal Bowel Sounds, Soft Musculoskeletal: Yes: WNL Edema: No Neurological: Yes: Confusion Labs: CBC, BMP 04/13/20 05:40 04/13/20 05:40 INR, PTT INR 1.23 (0.83-1.09) H 04/08/20 09:30 Problem List - Problems (1) Altered mental status Code(s): R41.82 - ALTERED MENTAL STATUS, UNSPECIFIED Qualifiers: Altered mental status type: unspecified Qualified Code(s): R41.82 - Altered mental status, unspecified (2) Atrial fibrillation Code(s): I48.91 - UNSPECIFIED ATRIAL FIBRILLATION (3) ESRD (end stage renal disease) Code(s): N18.6 - END STAGE RENAL DISEASE Assessment/Plan Current Medications Generic Name Dose Route Start Last Admin Trade Name Freq PRN Reason Stop Dose Admin Acetaminophen 650 mg 04/09/20 13:32 04/11/20 21:30 Tylenol - PO 650 mg Q6H PRN Administration MILD PAIN Aripiprazole 30 mg 04/12/20 12:00 04/13/20 09:35 Abilify PO 30 mg DAILY [facility] Administration Artificial Tears 1 drop 04/12/20 11:59 04/12/20 13:26 Artificial Tears OU 1 drop BID PRN Administration DRY EYES Carbamazepine 300 mg 04/12/20 12:00 04/13/20 10:10 Tegretol Xr - PO 300 mg BID [facility] Administration Hydroxyzine Pamoate 50 mg 04/12/20 12:39 Vistaril - PO TID PRN ANXIETY Phenylephrine HCl 25,000 mcg in 250 mls @ 30 mls/hr 04/09/20 03:00 04/13/20 09:36 Joseluis-Synephrine CVP Not Given TITR [facility] Protocol 50 MCG/MIN Sodium Chloride 250 mls @ 3,000 mls/hr 04/13/20 13:30 Normal Saline - IV 04/14/20 13:29 PRN PRN Hypotension during Dialysis Levothyroxine Sodium 25 mcg 04/12/20 07:00 04/13/20 06:49 Synthroid - PO 25 mcg DAILY@0700 [facility] Administration Metoprolol Tartrate 12.5 mg 04/13/20 11:30 04/13/20 11:38 Lopressor - PO 12.5 mg BID [facility] Administration Metoprolol Tartrate 5 mg 04/13/20 15:08 Lopressor Injection - IVPUSH Q4H PRN HYPERTENSION Multivitamins/Minerals/Vitamin C 1 tab 04/13/20 10:00 04/13/20 09:34 Tab-A-Vit - PO 1 tab DAILY [facility] Administration Pantoprazole Sodium 40 mg 04/09/20 10:00 04/13/20 09:34 Protonix - PO 40 mg DAILY [facility] Administration Pramipexole Dihydrochloride 0.5 mg 04/12/20 14:00 04/13/20 06:49 Mirapex - PO 0.5 mg TID [facility] Administration Quetiapine Fumarate 100 mg 04/09/20 14:00 04/12/20 13:26 Seroquel - PO 100 mg DAILY@1400 [facility] Administration Quetiapine Fumarate 400 mg 04/09/20 22:00 04/12/20 22:09 Seroquel - PO 400 mg HS [facility] Administration Quetiapine Fumarate 200 mg 04/10/20 06:00 04/13/20 06:49 Seroquel - PO 200 mg DAILY@0600 [facility] Administration Impression 1. ESRD (TTS) 2. sepsis 3. left buttock hematoma 4. bactermia 5. S/P mechanical fall 6. Anemia 7. COPD 8. hypothyroidism 9. a-fib Plan - pt getting HD today - vascular for thrombectomy tomorrow - monitor bp - renal diet - monitor hg - cont pressors to map 65 - cont abx - discussed with ICU team
[2020-04-13] MEDS ORDERED: ARTIFICIAL TEARS (POLYVINYL ALCOHOL) OPTH DROPS OU PRN (19:40)
[2020-04-13] MEDS: hydrOXYzine PAMOATE 50 MG CAPSULE (FP) PO PRN (21:20)
[2020-04-13] MEDS: ACETAMINOPHEN 325 MG TABLET (FP) PO PRN (21:22)
[2020-04-13] MEDS ORDERED: QUEtiapine FUMARATE 200 MG TABLET PO SCH (22:00)
[2020-04-14 02:31] LABS: HEP B CORE AB, TOT Negative (Negative)
[2020-04-14] MEDS: ACETAMINOPHEN 325 MG TABLET (FP) PO PRN (04:13)
[2020-04-14] MEDS ORDERED: QUEtiapine FUMARATE 200 MG TABLET PO SCH (06:00)
[2020-04-14] MEDS ORDERED: PT OWN MED DRAWER 7, Y5N ONE ×2 (06:21→21:17)
[2020-04-14] MEDS: PRAMIPEXOLE DIHYDROCHLORIDE 0.5 MG TABLET PO SCH ×3 (06:23→21:20)
[2020-04-14] MEDS: hydrOXYzine PAMOATE 50 MG CAPSULE (FP) PO PRN (06:24)
[2020-04-14] MEDS ORDERED: LEVOTHYROXINE NA 25 MCG TABLET (FP) PO SCH (07:00)
--- NOTE | 2020-04-14 08:40 | PN ---
Progress Note, Physician History of Present Illness: Slime Mcadams is a 74 y/o female with PMH significant for ESRD on dialysis (), a-fib not on AC (unclear reason but does fall), COPD, hypothyroidism, biploar/schizoaffective disorder, admitted after she was found with altered mental status[facility] She was hypotensive and severely anemic and bacteremic with GPC. Afib rate controlled, troponin negative. Pt walks with walker at [facility]. Pt had a fall 04/06/20 at [facility]- ER evaluation with CT head + cervical spine were normal. Pt was discharged back to [facility] Returned 04/08/20 with increased changed in mentation Repeat CT head shows chronic right lacunar infarct, otherwise no changes. BC + Staph coag neg Stared on IV abx Also found to be anemic- transfused 2 units of PRBC upon admission Currently also on pressors to maintaining MAP >65 04/11/20:NAD, anxious, Still confused Hg 6.8, PRBC 1 unit ordered HD today Awaiting repeat BC 04/12/20: Still on pressors Trialysis catheter Received HD yesterday Awaiting AVF thrombectomy once off pressors 04/13/20: Off pressors, maintaining MAP >65 mm Hg Going for HD today via femoral shiley. GAYLA AVG declot 04/14/20 - Current Medication List Current Medications: Active Medications Acetaminophen (Tylenol -) 650 mg PO Q6H PRN PRN Reason: MILD PAIN Last Admin: 04/14/20 04:13 Dose: 650 mg Documented by: Aripiprazole (Abilify) 30 mg PO DAILY [facility] Artificial Tears (Artificial Tears) 1 drop OU BID PRN PRN Reason: DRY EYES Carbamazepine (Tegretol Xr -) 300 mg PO BID [facility] Last Admin: 04/13/20 21:17 Dose: 300 mg Documented by: Hydroxyzine Pamoate (Vistaril -) 50 mg PO TID PRN PRN Reason: ANXIETY Last Admin: 04/14/20 06:24 Dose: 50 mg Documented by: Sodium Chloride (Normal Saline -) 250 mls @ 3,000 mls/hr IV PRN PRN PRN Reason: Hypotension during Dialysis Stop: 04/14/20 13:29 Levothyroxine Sodium (Synthroid -) 25 mcg PO DAILY@0700 [facility] Last Admin: 04/14/20 06:23 Dose: 25 mcg Documented by: Metoprolol Tartrate (Lopressor -) 12.5 mg PO BID [facility] Last Admin: 04/13/20 21:14 Dose: 12.5 mg Documented by: Metoprolol Tartrate (Lopressor Injection -) 5 mg IVPUSH Q4H PRN PRN Reason: TACHYCARDIA Multivitamins/Minerals/Vitamin C (Tab-A-Vit -) 1 tab PO DAILY [facility] Pantoprazole Sodium (Protonix -) 40 mg PO DAILY [facility] Pramipexole Dihydrochloride (Mirapex -) 0.5 mg PO TID [facility] Last Admin: 04/14/20 06:23 Dose: 0.5 mg Documented by: Quetiapine Fumarate (Seroquel -) 100 mg PO DAILY@1400 [facility] Quetiapine Fumarate (Seroquel -) 400 mg PO HS [facility] Last Admin: 04/13/20 21:16 Dose: 400 mg Documented by: Quetiapine Fumarate (Seroquel -) 200 mg PO DAILY@0600 [facility] Last Admin: 04/14/20 06:25 Dose: 200 mg Documented by: - Objective Vital Signs: Vital Signs Temperature 98.2 F 04/14/20 05:25 Pulse Rate 112 H 04/14/20 05:25 Respiratory Rate 20 04/14/20 05:25 Blood Pressure 157/74 04/14/20 05:25 O2 Sat by Pulse Oximetry (%) 96 04/14/20 05:25 Cardiovascular: Yes: S1, S2 Respiratory: Yes: Regular, CTA Bilaterally Gastrointestinal: Yes: Normal Bowel Sounds, Soft Labs: CBC, BMP 04/13/20 05:40 04/13/20 05:40 INR, PTT INR 1.23 (0.83-1.09) H 04/08/20 09:30 Problem List - Problems (1) ESRD (end stage renal disease) Code(s): N18.6 - END STAGE RENAL DISEASE (2) Bacteremia Code(s): R78.81 - BACTEREMIA (3) Anemia Code(s): D64.9 - ANEMIA, UNSPECIFIED Qualifiers: Anemia type: unspecified type Qualified Code(s): D64.9 - Anemia, unsp ecified (4) Fall Code(s): W19.XXXA - UNSPECIFIED FALL, INITIAL ENCOUNTER (5) Hematoma of thigh Code(s): S70.10XA - CONTUSION OF UNSPECIFIED THIGH, INITIAL ENCOUNTER (6) Sepsis Code(s): A41.9 - SEPSIS, UNSPECIFIED ORGANISM Assessment/Plan - Problems (1) Altered mental status Assessment/Plan: -CT head chronic lacunar infarct, no acute pathology -2/2 to acute sepsis -BC: contaminated? Microbiology 04/08/20 09:35 Blood - Peripheral Venous Blood Culture - Final Staphylococcus Epidermidis 04/08/20 09:30 Blood - Peripheral Venous Blood Culture - Preliminary Staphylococcus Coagulase Neg -Repeat BC pending -Off IV abx Problems reviewed: Yes Code(s): R41.82 - ALTERED MENTAL STATUS, UNSPECIFIED Qualifiers: Altered mental status type: unspecified Qualified Code(s): R41.82 - Altered mental status, unspecified (2) Anemia Assessment/Plan: -multifactorial -Iron+ B12 normal -stool OB negative -TSH elvated, FT4 low -Transfuse only if Hg<7.0 to avoid fluid overload -Procrit as per nephrology Problems reviewed: Yes Code(s): D64.9 - ANEMIA, UNSPECIFIED Qualifiers: Anemia type: unspecified type Qualified Code(s): D64.9 - Anemia, unsp ecified (3) Atrial fibrillation Assessment/Plan: -Not on AC due frequent falls, risks>benefits Problems reviewed: Yes Code(s): I48.91 - UNSPECIFIED ATRIAL FIBRILLATION (4) Bacteremia Assessment/Plan: -BC: Microbiology 04/08/20 09:35 Blood - Peripheral Venous Blood Culture - Preliminary Staphylococcus Coagulase Neg 04/08/20 09:30 Blood - Peripheral Venous Blood Culture - Preliminary Staphylococcus Coagulase Neg -ID consult -afebrile -Off IV abx -Repeat BC pending Problems reviewed: Yes Code(s): R78.81 - BACTEREMIA (5) ESRD (end stage renal disease) on dialysis Assessment/Plan: -Nephrology on board -AVF clotted- needs thrombectomy once off pressors -Vascular consult appreciated -HD as per nephrology Problems reviewed: Yes Code(s): N18.6 - END STAGE RENAL DISEASE; Z99.2 - DEPENDENCE ON RENAL DIALYSIS (6) Sepsis Assessment/Plan: -as above -LA normal Problems reviewed: Yes Code(s): A41.9 - SEPSIS, UNSPECIFIED ORGANISM (7) Fall Assessment/Plan: -Safety precautions -Physical therapy when more stable Problems reviewed: Yes Code(s): W19.XXXA - UNSPECIFIED FALL, INITIAL ENCOUNTER (8) Acute metabolic encephalopathy Problems reviewed: Yes Code(s): G93.41 - METABOLIC ENCEPHALOPATHY (9) Hypothyroidism Assessment/Plan: -Start Levothyroxine 25 mcg po daily -Recheck TSH,FT4 in 6 weeks on 05/23/20 Problems reviewed: Yes Code(s): E03.9 - HYPOTHYROIDISM, UNSPECIFIED (10) Clotted renal dialysis AV graft Assessment/Plan: -Going for HD today via femoral shiley -LUE AVG declot 04/14/20 -Medically cleared for OR with acceptable OR risks for AM -NPO after midnight Problems reviewed: Yes Code(s): T82.868A - THROMBOSIS DUE TO VASCULAR PROSTH DEV/GRFT, INIT
[2020-04-14] MEDS: METOPROLOL TARTRATE 25 MG TABLET (FP) PO SCH ×2 (09:36→21:20)
[2020-04-14] MEDS ORDERED: PANTOPRAZOLE 40 MG TABLET PO SCH (10:00)
[2020-04-14] MEDS ORDERED: MULTIVITAMINS (DAILY MVI) TABLET (FP) PO SCH (10:00)
[2020-04-14] MEDS ORDERED: ARIPiprazole 15 MG TABLET PO SCH (10:00)
[2020-04-14] MEDS ORDERED: SODIUM CHLORIDE 250 ML IV PRN (12:33)
--- NOTE | 2020-04-14 12:33 | PN ---
Progress Note, Physician History of Present Illness: Pt seen and examined at bedside. SHe is going for a thrombectomy today. - Current Medication List Current Medications: Active Medications Acetaminophen (Tylenol -) 650 mg PO Q6H PRN PRN Reason: MILD PAIN Last Admin: 04/14/20 04:13 Dose: 650 mg Documented by: Aripiprazole (Abilify) 30 mg PO DAILY [facility] Last Admin: 04/14/20 09:36 Dose: 30 mg Documented by: Artificial Tears (Artificial Tears) 1 drop OU BID PRN PRN Reason: DRY EYES Carbamazepine (Tegretol Xr -) 300 mg PO BID [facility] Last Admin: 04/14/20 09:38 Dose: 300 mg Documented by: Hydroxyzine Pamoate (Vistaril -) 50 mg PO TID PRN PRN Reason: ANXIETY Last Admin: 04/14/20 06:24 Dose: 50 mg Documented by: Sodium Chloride (Normal Saline -) 250 mls @ 3,000 mls/hr IV PRN PRN PRN Reason: Hypotension during Dialysis Stop: 04/14/20 13:29 Levothyroxine Sodium (Synthroid -) 25 mcg PO DAILY@0700 [facility] Last Admin: 04/14/20 06:23 Dose: 25 mcg Documented by: Metoprolol Tartrate (Lopressor -) 12.5 mg PO BID [facility] Last Admin: 04/14/20 09:36 Dose: 12.5 mg Documented by: Metoprolol Tartrate (Lopressor Injection -) 5 mg IVPUSH Q4H PRN PRN Reason: TACHYCARDIA Multivitamins/Minerals/Vitamin C (Tab-A-Vit -) 1 tab PO DAILY [facility] Last Admin: 04/14/20 09:39 Dose: 1 tab Documented by: Pantoprazole Sodium (Protonix -) 40 mg PO DAILY [facility] Last Admin: 04/14/20 09:39 Dose: 40 mg Documented by: Pramipexole Dihydrochloride (Mirapex -) 0.5 mg PO TID [facility] Last Admin: 04/14/20 06:23 Dose: 0.5 mg Documented by: Quetiapine Fumarate (Seroquel -) 100 mg PO DAILY@1400 [facility] Quetiapine Fumarate (Seroquel -) 400 mg PO HS [facility] Last Admin: 04/13/20 21:16 Dose: 400 mg Documented by: Quetiapine Fumarate (Seroquel -) 200 mg PO DAILY@0600 [facility] Last Admin: 04/14/20 06:25 Dose: 200 mg Documented by: - Objective Vital Signs: Vital Signs Temperature 97.9 F 04/14/20 09:00 Pulse Rate 117 H 04/14/20 09:00 Respiratory Rate 20 04/14/20 09:00 Blood Pressure 145/94 04/14/20 09:00 O2 Sat by Pulse Oximetry (%) 99 04/14/20 09:00 Constitutional: Yes: Calm Eyes: Yes: Conjunctiva Clear HENT: Yes: Atraumatic Neck: Yes: Supple Cardiovascular: Yes: S1, S2 Respiratory: Yes: CTA Bilaterally Gastrointestinal: Yes: Normal Bowel Sounds, Soft Genitourinary: Yes: WNL Musculoskeletal: Yes: WNL Edema: Yes Edema: LLE: Trace, RLE: Trace Neurological: Yes: Oriented Psychiatric: Yes: Oriented Labs: CBC, BMP 04/13/20 05:40 04/13/20 05:40 INR, PTT INR 1.23 (0.83-1.09) H 04/08/20 09:30 Problem List - Problems (1) Altered mental status Code(s): R41.82 - ALTERED MENTAL STATUS, UNSPECIFIED Qualifiers: Altered mental status type: unspecified Qualified Code(s): R41.82 - Altered mental status, unspecified (2) Atrial fibrillation Code(s): I48.91 - UNSPECIFIED ATRIAL FIBRILLATION (3) ESRD (end stage renal disease) Code(s): N18.6 - END STAGE RENAL DISEASE Assessment/Plan Current Medications Generic Name Dose Route Start Last Admin Trade Name Aldoq PRN Reason Stop Dose Admin Acetaminophen 650 mg 04/13/20 19:40 04/14/20 04:13 Tylenol - PO 650 mg Q6H PRN Administration MILD PAIN Aripiprazole 30 mg 04/14/20 10:00 04/14/20 09:36 Abilify PO 30 mg DAILY [facility] Administration Artificial Tears 1 drop 04/13/20 19:40 Artificial Tears OU BID PRN DRY EYES Carbamazepine 300 mg 04/13/20 22:00 04/14/20 09:38 Tegretol Xr - PO 300 mg BID [facility] Administration Hydroxyzine Pamoate 50 mg 04/13/20 19:40 04/14/20 06:24 Vistaril - PO 50 mg TID PRN Administration ANXIETY Sodium Chloride 250 mls @ 3,000 mls/hr 04/13/20 13:30 Normal Saline - IV 04/14/20 13:29 PRN PRN Hypotension during Dialysis Levothyroxine Sodium 25 mcg 04/14/20 07:00 04/14/20 06:23 Synthroid - PO 25 mcg DAILY@0700 [facility] Administration Metoprolol Tartrate 12.5 mg 04/13/20 11:30 04/14/20 09:36 Lopressor - PO 12.5 mg BID [facility] Administration Metoprolol Tartrate 5 mg 04/13/20 15:08 Lopressor Injection - IVPUSH Q4H PRN TACHYCARDIA Multivitamins/Minerals/Vitamin C 1 tab 04/14/20 10:00 04/14/20 09:39 Tab-A-Vit - PO 1 tab DAILY [facility] Administration Pantoprazole Sodium 40 mg 04/14/20 10:00 04/14/20 09:39 Protonix - PO 40 mg DAILY [facility] Administration Pramipexole Dihydrochloride 0.5 mg 04/13/20 22:00 04/14/20 06:23 Mirapex - PO 0.5 mg TID [facility] Administration Quetiapine Fumarate 100 mg 04/14/20 14:00 Seroquel - PO DAILY@1400 [facility] Quetiapine Fumarate 400 mg 04/13/20 22:00 04/13/20 21:16 Seroquel - PO 400 mg HS [facility] Administration Quetiapine Fumarate 200 mg 04/14/20 06:00 04/14/20 06:25 Seroquel - PO 200 mg DAILY@0600 [facility] Administration Impression 1. ESRD (TTS) 2. sepsis 3. left buttock hematoma 4. bactermia 5. S/P mechanical fall 6. Anemia 7. COPD 8. hypothyroidism 9. a-fib Plan - HD tomorrow - thrombectomy today - vascular following - cont epogen - monitor hg - transfuse as needed
--- NOTE | 2020-04-14 13:00 | PN ---
Progress Note (short form) - Note Progress Note: Resting in NAD. Awake and alert. Denies CP or SOB. Intake & Output 04/11/20 04/12/20 04/13/20 04/14/20 23:59 23:59 23:59 23:59 Intake Total 1639.6 474 590 Output Total 3502 0 3479 Balance -1862.4 474 -2889 Weight 187 lb 1.6 oz 187 lb 7 oz 187 lb 11.93 oz Last Vital Signs Temp Pulse Resp BP Pulse Ox 97.9 F 117 H 20 145/94 99 04/14/20 09:00 04/14/20 09:00 04/14/20 09:00 04/14/20 09:00 04/14/20 09:00 Active Medications Acetaminophen (Tylenol -) 650 mg PO Q6H PRN PRN Reason: MILD PAIN Last Admin: 04/14/20 04:13 Dose: 650 mg Documented by: Aripiprazole (Abilify) 30 mg PO DAILY [facility] Last Admin: 04/14/20 09:36 Dose: 30 mg Documented by: Artificial Tears (Artificial Tears) 1 drop OU BID PRN PRN Reason: DRY EYES Carbamazepine (Tegretol Xr -) 300 mg PO BID [facility] Last Admin: 04/14/20 09:38 Dose: 300 mg Documented by: Epoetin Sathya (Procrit -) 15,000 unit SQ ONCE ONE Stop: 04/15/20 12:34 Hydroxyzine Pamoate (Vistaril -) 50 mg PO TID PRN PRN Reason: ANXIETY Last Admin: 04/14/20 06:24 Dose: 50 mg Documented by: Sodium Chloride (Normal Saline -) 250 mls @ 3,000 mls/hr IV PRN PRN PRN Reason: Hypotension during Dialysis Stop: 04/14/20 13:29 Sodium Chloride (Normal Saline -) 250 mls @ 3,000 mls/hr IV PRN PRN PRN Reason: Hypotension during Dialysis Stop: 04/15/20 12:33 Levothyroxine Sodium (Synthroid -) 25 mcg PO DAILY@0700 [facility] Last Admin: 04/14/20 06:23 Dose: 25 mcg Documented by: Metoprolol Tartrate (Lopressor -) 12.5 mg PO BID [facility] Last Admin: 04/14/20 09:36 Dose: 12.5 mg Documented by: Metoprolol Tartrate (Lopressor Injection -) 5 mg IVPUSH Q4H PRN PRN Reason: TACHYCARDIA Multivitamins/Minerals/Vitamin C (Tab-A-Vit -) 1 tab PO DAILY [facility] Last Admin: 04/14/20 09:39 Dose: 1 tab Documented by: Pantoprazole Sodium (Protonix -) 40 mg PO DAILY [facility] Last Admin: 04/14/20 09:39 Dose: 40 mg Documented by: Pramipexole Dihydrochloride (Mirapex -) 0.5 mg PO TID [facility] Last Admin: 04/14/20 06:23 Dose: 0.5 mg Documented by: Quetiapine Fumarate (Seroquel -) 100 mg PO DAILY@1400 [facility] Quetiapine Fumarate (Seroquel -) 400 mg PO HS [facility] Last Admin: 04/13/20 21:16 Dose: 400 mg Documented by: Quetiapine Fumarate (Seroquel -) 200 mg PO DAILY@0600 [facility] Last Admin: 04/14/20 06:25 Dose: 200 mg Documented by: Gen: NAD at rest Heart: RRR Lung: decreased breath sounds at the bases Abd: soft, nontender Ext: no edema, left flank ecchymoses Laboratory Results - last 24 hr 04/11/20 20:00 Hep A IgM Ab Confirm Negative Hepatitis A Ab Total Positive H Hep Bs Antigen Negative Hep Bs Antibody Non reactive Hep B Core Total Ab Negative Hep B Core IgM Ab Negative Hepatitis Be Antibody Negative Hepatitis Be Antigen Negative ASSESSMENT AND PLAN: Staph Bacteremia Septic Shock improving s/p Fall Large Left Gluteal Hematoma Acute Blood Loss Anemia Atrial Fibrillation ESRD on HD COPD Hypothyroidism Schizoaffective Disorder - antibiotics per ID - monitor H/H - transfuse as needed - HD per renal - psych meds - Cardiac Telemetry monitoring Dr Park
--- NOTE | 2020-04-14 13:38 | PN ---
Progress Note, Physician Chief Complaint: Cardiology FU Telem AF HR 100-110 No dyspnea Cloted AVG now with irene. - Current Medication List Current Medications: Active Medications Acetaminophen (Tylenol -) 650 mg PO Q6H PRN PRN Reason: MILD PAIN Last Admin: 04/14/20 04:13 Dose: 650 mg Documented by: Aripiprazole (Abilify) 30 mg PO DAILY [facility] Last Admin: 04/14/20 09:36 Dose: 30 mg Documented by: Artificial Tears (Artificial Tears) 1 drop OU BID PRN PRN Reason: DRY EYES Carbamazepine (Tegretol Xr -) 300 mg PO BID [facility] Last Admin: 04/14/20 09:38 Dose: 300 mg Documented by: Epoetin Sathya (Procrit -) 15,000 unit SQ ONCE ONE Stop: 04/15/20 12:34 Hydroxyzine Pamoate (Vistaril -) 50 mg PO TID PRN PRN Reason: ANXIETY Last Admin: 04/14/20 06:24 Dose: 50 mg Documented by: Sodium Chloride (Normal Saline -) 250 mls @ 3,000 mls/hr IV PRN PRN PRN Reason: Hypotension during Dialysis Stop: 04/15/20 12:33 Levothyroxine Sodium (Synthroid -) 25 mcg PO DAILY@0700 [facility] Last Admin: 04/14/20 06:23 Dose: 25 mcg Documented by: Metoprolol Tartrate (Lopressor -) 12.5 mg PO BID [facility] Last Admin: 04/14/20 09:36 Dose: 12.5 mg Documented by: Metoprolol Tartrate (Lopressor Injection -) 5 mg IVPUSH Q4H PRN PRN Reason: TACHYCARDIA Multivitamins/Minerals/Vitamin C (Tab-A-Vit -) 1 tab PO DAILY [facility] Last Admin: 04/14/20 09:39 Dose: 1 tab Documented by: Pantoprazole Sodium (Protonix -) 40 mg PO DAILY [facility] Last Admin: 04/14/20 09:39 Dose: 40 mg Documented by: Pramipexole Dihydrochloride (Mirapex -) 0.5 mg PO TID [facility] Last Admin: 04/14/20 06:23 Dose: 0.5 mg Documented by: Quetiapine Fumarate (Seroquel -) 100 mg PO DAILY@1400 [facility] Quetiapine Fumarate (Seroquel -) 400 mg PO HS [facility] Last Admin: 04/13/20 21:16 Dose: 400 mg Documented by: Quetiapine Fumarate (Seroquel -) 200 mg PO DAILY@0600 [facility] Last Admin: 04/14/20 06:25 Dose: 200 mg Documented by: - Objective Vital Signs: Vital Signs Temperature 97.9 F 04/14/20 09:00 Pulse Rate 117 H 04/14/20 09:00 Respiratory Rate 20 04/14/20 09:00 Blood Pressure 145/94 04/14/20 09:00 O2 Sat by Pulse Oximetry (%) 99 04/14/20 09:00 Constitutional: Yes: Well Nourished, No Distress Eyes: Yes: Conjunctiva Clear, EOM Intact HENT: Yes: Atraumatic, Normocephalic Neck: Yes: Supple, Trachea Midline Cardiovascular: Yes: Pulse Irregular, S1, S2. No: Regular Rate and Rhythm, JVD Respiratory: Yes: CTA Bilaterally Gastrointestinal: Yes: Normal Bowel Sounds Edema: No Labs: CBC, BMP 04/13/20 05:40 04/13/20 05:40 INR, PTT INR 1.23 (0.83-1.09) H 04/08/20 09:30 Problem List - Problems (1) Atrial fibrillation Code(s): I48.91 - UNSPECIFIED ATRIAL FIBRILLATION (2) Bacteremia Code(s): R78.81 - BACTEREMIA Assessment/Plan Slime Mcadams is a 74 y/o female with PMH significant for ESRD on dialysis (//), a-fib not on AC (unclear reason but does fall), COPD, hypothyroidism, biploar/schizoaffective disorder, admitted after she was found with altered mental status, hypotension at the correction. She was hypotensive and severely anemic and bacteremic with GPC. Afib rate controlled, troponin negative. afib -Placed on low dose metoprolol. -HR mildly elevated. AF tolerated well Raise metoprolol 25mg bid. -normal LV function without valvulopathy. - She will be at high risk for AC use for Afib stroke prevention. -No cardiac contraindications to AVF declotting.
[2020-04-14] MEDS ORDERED: QUEtiapine FUMARATE 100 MG TABLET (FP) PO SCH (14:00)
[2020-04-14] MEDS ORDERED: LIDOCAINE HCL 1%, 10 MG/ML (20ML VIAL) ONE (14:41)
[2020-04-14] MEDS ORDERED: HEPARIN NA (PORCINE) 5,000 UNITS/ML 1ML VIAL ONE ×3 (14:41→16:35)
[2020-04-14] MEDS ORDERED: PROPOFOL 20 ML ONE ×2 (16:14→16:47)
[2020-04-14] MEDS ORDERED: LIDOCAINE HCL/PF 2% SDV 5ML VIAL ONE (16:16)
[2020-04-14] MEDS ORDERED: LIDOCAINE HCL 1%, 10 MG/ML (20ML VIAL) NR ONE (16:29)
[2020-04-14] MEDS ORDERED: HEPARIN NA (PORCINE) 5,000 UNITS/ML 1ML VIAL SQ ONE (16:29)
[2020-04-14] MEDS ORDERED: ceFAZolin SODIUM 1 GM VIAL ONE (16:48)
--- NOTE | 2020-04-14 17:25 | OP ---
Operative Note - Note: Operative Date: 04/14/20 Pre-Operative Diagnosis: Clotted left avg Operation: Venogram, thrombectomy, venoplasty left avg Post-Operative Diagnosis: Same as Pre-op Surgeon: Adelfo Huffman Anesthesia: MAC Estimated Blood Loss (mls): 50 Operative Report Dictated: Yes
[2020-04-14] MEDS ORDERED: HYDROmorphone HCl 2 MG/ML VIAL ONE (17:57)
[2020-04-14] MEDS ORDERED: HYDROmorphone HCl 2 MG/ML VIAL IVPUSH ONE ×2 (18:00→19:15)
[2020-04-14] MEDS ORDERED: ARTIFICIAL TEARS (POLYVINYL ALCOHOL) OPTH DROPS OU PRN (18:20)
[2020-04-14] MEDS ORDERED: METOPROLOL TARTRATE 5 MG/5 ML VIAL IVPUSH PRN (18:20)
[2020-04-14] MEDS ORDERED: ACETAMINOPHEN 325 MG TABLET (FP) PO PRN (18:20)
[2020-04-14] MEDS ORDERED: HYDROmorphone HCL CARPU-JECT 2 MG/1 ML DISP.SYRIN IVPUSH ONE (18:58)
[2020-04-14] MEDS: QUEtiapine FUMARATE 200 MG TABLET PO SCH (21:19)
[2020-04-15] MEDS ORDERED: PT OWN MED DRAWER 7, Y5N ONE ×5 (05:33→20:37)
[2020-04-15] MEDS: QUEtiapine FUMARATE 200 MG TABLET PO SCH ×2 (07:03→21:19)
[2020-04-15] MEDS: LEVOTHYROXINE NA 25 MCG TABLET (FP) PO SCH (07:03)
[2020-04-15] MEDS: PRAMIPEXOLE DIHYDROCHLORIDE 0.5 MG TABLET PO SCH ×3 (07:03→21:20)
--- NOTE | 2020-04-15 07:13 | PN ---
Progress Note, Physician History of Present Illness: PULMONARY AWAKE,NO DISTRESS,-CP - Current Medication List Current Medications: Active Medications Acetaminophen (Tylenol -) 650 mg PO Q6H PRN PRN Reason: MILD PAIN Last Admin: 04/15/20 04:10 Dose: 650 mg Documented by: Aripiprazole (Abilify) [address] [facility] Artificial Tears (Artificial Tears) 1 drop OU BID PRN PRN Reason: DRY EYES Carbamazepine (Tegretol Xr -) [address] [facility] Last Admin: 04/14/20 21:20 Dose: 300 mg Documented by: Epoetin Sathya (Procrit -) 15,000 unit SQ ONCE ONE Stop: 04/15/20 12:34 Fentanyl (Sublimaze Injection -) 50 mcg IVPUSH [id number] PRN PRN Reason: PAIN-PACU ORDER X 4 DOSES ONLY Hydroxyzine Pamoate (Vistaril -) 50 mg PO TID PRN PRN Reason: ANXIETY Sodium Chloride (Normal Saline -) 250 mls @ 3,000 mls/hr IV PRN PRN PRN Reason: Hypotension during Dialysis Stop: 04/15/20 12:33 Levothyroxine Sodium (Synthroid -) 25 mcg PO DAILY@0700 [facility] Last Admin: 04/15/20 07:03 Dose: 25 mcg Documented by: Metoprolol Tartrate (Lopressor Injection -) 5 mg IVPUSH Q4H PRN PRN Reason: TACHYCARDIA Metoprolol Tartrate (Lopressor -) 12.[address] [facility] Last Admin: 04/14/20 21:20 Dose: 12.5 mg Documented by: Multivitamins/Minerals/Vitamin C (Tab-A-Vit -) [address] [facility] Pantoprazole Sodium (Protonix -) [address] [facility] Pramipexole Dihydrochloride (Mirapex -) 0.[address] [facility] Last Admin: 04/15/20 07:03 Dose: 0.5 mg Documented by: Quetiapine Fumarate (Seroquel -) 100 mg PO DAILY@1400 [facility] Quetiapine Fumarate (Seroquel -) 200 mg PO DAILY@0600 [facility] Last Admin: 04/15/20 07:03 Dose: 200 mg Documented by: Quetiapine Fumarate (Seroquel -) [address] [facility] Last Admin: 04/14/20 21:19 Dose: 400 mg Documented by: - Objective Vital Signs: Vital Signs Temperature 97.8 F 04/15/20 00:55 Pulse Rate 115 H 04/15/20 00:55 Respiratory Rate 18 04/15/20 00:55 Blood Pressure 134/60 04/15/20 00:55 O2 Sat by Pulse Oximetry (%) 98 04/15/20 00:55 Constitutional: Yes: Well Nourished, Calm Eyes: Yes: WNL HENT: Yes: WNL Neck: Yes: WNL Cardiovascular: Yes: Regular Rate and Rhythm, S1, S2 Respiratory: Yes: Diminished Gastrointestinal: Yes: Normal Bowel Sounds, Soft Extremities: Yes: WNL Edema: No Labs: CBC, BMP 04/13/20 05:40 04/13/20 05:40 INR, PTT INR 1.23 (0.83-1.09) H 04/08/20 09:30 Assessment/Plan ASSESSMENT AND PLAN: Septic Shock improved s/p Fall Large Left Gluteal Hematoma Acute Blood Loss Anemia Atrial Fibrillation ESRD on HD COPD Hypothyroidism Schizoaffective Disorder - monitor H/H - transfuse as needed - HD per renal - psych meds DR RIVAS
[2020-04-15] MEDS ORDERED: SODIUM CHLORIDE 250 ML IV PRN (08:00)
[2020-04-15] MEDS ORDERED: EPOETIN ALFA-EPBX 10,000 UNIT, EPOETIN ALFA-EPBX 2,000 UNIT, EPOETIN ALFA-EPBX 3,000 UNIT IVPUSH ONE (08:00)
[2020-04-15 08:59] LABS: HEMATOCRIT 24.1 % (32.4-45.2); HEMOGLOBIN 7.7 GM/dL (10.7-15.3); MCH 32.8 pg (25.7-33.7); MCHC 32.1 g/dl (32.0-36.0); MEAN CELL VOLUME 102.4 fl (80-96); MEAN PLT VOLUME 10.5 fl (7.5-11.1); PLATELET COUNT 67 K/MM3 (134-434); RBC 2.35 M/mm3 (3.60-5.2); RDW 21.7 % (11.6-15.6)
[2020-04-15 09:24] LABS: ALBUMIN 2.6 g/dl (3.4-5.0); BILIRUBIN,TOTAL 1.5 mg/dL (0.2-1); BLOOD UREA NITROGEN 34.1 mg/dL (7-18); CREATININE 5.8 mg/dL (0.55-1.3); POTASSIUM 3.9 mmol/L (3.5-5.1)
[2020-04-15 10:02] VITALS: BMI 33.0
--- NOTE | 2020-04-15 10:47 | PN ---
Progress Note, Physician Chief Complaint: Anemia ESRD Bacteremia AMS History of Present Illness: Previous notes and events reviewed awake and alert NAD Had HD at bedside Hg 7.7-received Epoetin in HD denies chest pain or SOB - Current Medication List Current Medications: Active Medications Acetaminophen (Tylenol -) 650 mg PO Q6H PRN PRN Reason: MILD PAIN Last Admin: 04/15/20 04:10 Dose: 650 mg Documented by: Aripiprazole (Abilify) 30 mg PO DAILY [facility] Artificial Tears (Artificial Tears) 1 drop OU BID PRN PRN Reason: DRY EYES Carbamazepine (Tegretol Xr -) 300 mg PO BID [facility] Last Admin: 04/14/20 21:20 Dose: 300 mg Documented by: Fentanyl (Sublimaze Injection -) 50 mcg IVPUSH [id number] PRN PRN Reason: PAIN-PACU ORDER X 4 DOSES ONLY Hydroxyzine Pamoate (Vistaril -) 50 mg PO TID PRN PRN Reason: ANXIETY Levothyroxine Sodium (Synthroid -) 25 mcg PO DAILY@0700 [facility] Last Admin: 04/15/20 07:03 Dose: 25 mcg Documented by: Metoprolol Tartrate (Lopressor Injection -) 5 mg IVPUSH Q4H PRN PRN Reason: TACHYCARDIA Metoprolol Tartrate (Lopressor -) 12.5 mg PO BID [facility] Last Admin: 04/14/20 21:20 Dose: 12.5 mg Documented by: Multivitamins/Minerals/Vitamin C (Tab-A-Vit -) 1 tab PO DAILY [facility] Pantoprazole Sodium (Protonix -) 40 mg PO DAILY [facility] Pramipexole Dihydrochloride (Mirapex -) 0.5 mg PO TID [facility] Last Admin: 04/15/20 07:03 Dose: 0.5 mg Documented by: Quetiapine Fumarate (Seroquel -) 100 mg PO DAILY@1400 [facility] Quetiapine Fumarate (Seroquel -) 200 mg PO DAILY@0600 [facility] Last Admin: 04/15/20 07:03 Dose: 200 mg Documented by: Quetiapine Fumarate (Seroquel -) 400 mg PO HS [facility] Last Admin: 04/14/20 21:19 Dose: 400 mg Documented by: - Objective Vital Signs: Vital Signs Temperature 98.2 F 04/15/20 09:00 Pulse Rate 80 04/15/20 10:42 Respiratory Rate 18 04/15/20 10:42 Blood Pressure 126/63 04/15/20 10:42 O2 Sat by Pulse Oximetry (%) 100 04/15/20 09:00 Constitutional: Yes: No Distress, Calm Eyes: Yes: Conjunctiva Clear HENT: Yes: Atraumatic Cardiovascular: Yes: Regular Rate and Rhythm Respiratory: Yes: Regular, Diminished Gastrointestinal: Yes: Normal Bowel Sounds, Soft Genitourinary: Yes: Incontinence Musculoskeletal: Yes: Muscle Weakness Extremities: Yes: Other (L AVF) Edema: No Neurological: Yes: Alert Psychiatric: Yes: Alert Labs: CBC, BMP 04/15/20 07:00 04/15/20 07:00 INR, PTT INR 1.23 (0.83-1.09) H 04/08/20 09:30 Problem List - Problems (1) Acute metabolic encephalopathy Assessment/Plan: Head CT scan shows chronic lacunar infarct, no acute pathology Due to sepsis Code(s): G93.41 - METABOLIC ENCEPHALOPATHY (2) Anemia Assessment/Plan: Hg 7.7 received Epoetin in HD Monitor Hg daily Infuse with PRBC for Hg <7.0 to avoid fluid overload Stool OB neg Code(s): D64.9 - ANEMIA, UNSPECIFIED Qualifiers: Anemia type: unspecified type Qualified Code(s): D64.9 - Anemia, unspecified (3) Atrial fibrillation Assessment/Plan: not on AC due to high risk for falls, benefit outweigh risk Code(s): I48.91 - UNSPECIFIED ATRIAL FIBRILLATION (4) Bacteremia Assessment/Plan: 04/08/20 BC positive, 04/10/20 BC neg ID on board currently off IV ABX no leukocytosis afebrile Code(s): R78.81 - BACTEREMIA (5) ESRD (end stage renal disease) on dialysis Assessment/Plan: Nephrology on board continue with HD on scheduled days s/p thrombectomy of L AVF Code(s): N18.6 - END STAGE RENAL DISEASE; Z99.2 - DEPENDENCE ON RENAL DIALYSIS (6) Hypothyroidism Assessment/Plan: Levothyroxine Code(s): E03.9 - HYPOTHYROIDISM, UNSPECIFIED (7) Fall Assessment/Plan: Fall precaution PT Code(s): W19.XXXA - UNSPECIFIED FALL, INITIAL ENCOUNTER Assessment/Plan see problem list dvt ppx
[2020-04-15] MEDS: METOPROLOL TARTRATE 25 MG TABLET (FP) PO SCH ×2 (10:58→21:20)
[2020-04-15] MEDS: PANTOPRAZOLE 40 MG TABLET PO SCH (10:58)
[2020-04-15] MEDS: MULTIVITAMINS (DAILY MVI) TABLET (FP) PO SCH (10:59)
[2020-04-15] MEDS: ARIPiprazole 15 MG TABLET PO SCH (10:59)
--- NOTE | 2020-04-15 11:05 | PN ---
Progress Note (short form) - Note Progress Note: RENAL pt was seen at end of hd c/o restless leg syndrome Last Vital Signs Temp Pulse Resp BP Pulse Ox 98.2 F 80 18 126/63 100 04/15/20 09:00 04/15/20 10:42 04/15/20 10:42 04/15/20 10:42 04/15/20 09:00 lungs clear cvs s1s2 rr abd soft ext no edema neuro a+ox3 CBC, BMP 04/15/20 07:00 04/15/20 07:00 Current Medications Generic Name Dose Route Start Last Admin Trade Name Freq PRN Reason Stop Dose Admin Acetaminophen 650 mg 04/14/20 18:20 04/15/20 04:10 Tylenol - PO 650 mg Q6H PRN Administration MILD PAIN Aripiprazole 30 mg 04/15/20 10:00 04/15/20 10:59 Abilify PO 30 mg DAILY [facility] Administration Artificial Tears 1 drop 04/14/20 18:20 Artificial Tears OU BID PRN DRY EYES Carbamazepine 300 mg 04/14/20 22:00 04/15/20 10:59 Tegretol Xr - PO 300 mg BID [facility] Administration Fentanyl 50 mcg 04/14/20 18:58 Sublimaze Injection - IVPUSH [id number] PRN PAIN-PACU ORDER X 4 DOSES ONLY Hydroxyzine Pamoate 50 mg 04/14/20 18:20 Vistaril - PO TID PRN ANXIETY Levothyroxine Sodium 25 mcg 04/15/20 07:00 04/15/20 07:03 Synthroid - PO 25 mcg DAILY@0700 [facility] Administration Metoprolol Tartrate 5 mg 04/14/20 18:20 Lopressor Injection - IVPUSH Q4H PRN TACHYCARDIA Metoprolol Tartrate 12.5 mg 04/14/20 22:00 04/15/20 10:58 Lopressor - PO 12.5 mg BID [facility] Administration Multivitamins/Minerals/Vitamin C 1 tab 04/15/20 10:00 04/15/20 10:59 Tab-A-Vit - PO 1 tab DAILY [facility] Administration Pantoprazole Sodium 40 mg 04/15/20 10:00 04/15/20 10:58 Protonix - PO 40 mg DAILY [facility] Administration Pramipexole Dihydrochloride 0.5 mg 04/14/20 22:00 04/15/20 07:03 Mirapex - PO 0.5 mg TID [facility] Administration Quetiapine Fumarate 100 mg 04/15/20 14:00 Seroquel - PO DAILY@1400 [facility] Quetiapine Fumarate 200 mg 04/15/20 06:00 04/15/20 07:03 Seroquel - PO 200 mg DAILY@0600 [facility] Administration Quetiapine Fumarate 400 mg 04/14/20 22:00 04/14/20 21:19 Seroquel - PO 400 mg HS [facility] Administration Impression 1. ESRD (TTS) 2. sepsis 3. left buttock hematoma 4. bactermia 5. S/P mechanical fall 6. Anemia 7. COPD 8. hypothyroidism 9. a-fib 10. RLS- on mirapex Plan tolerated hd no other acute renal issues MV
[2020-04-15] MEDS ORDERED: EPOETIN ALFA 10,000 UNIT/1 ML VIAL SQ ONE ×2 (12:33)
[2020-04-15] MEDS: QUEtiapine FUMARATE 100 MG TABLET (FP) PO SCH (13:06)
[2020-04-15] MEDS: hydrOXYzine PAMOATE 50 MG CAPSULE (FP) PO PRN (17:47)
[2020-04-16] MEDS: LEVOTHYROXINE NA 25 MCG TABLET (FP) PO SCH (06:31)
[2020-04-16] MEDS: QUEtiapine FUMARATE 200 MG TABLET PO SCH ×2 (06:31→21:25)
[2020-04-16] MEDS ORDERED: SIMETHICONE 80 MG TAB.CHEW (FP) PO PRN (09:32)
--- NOTE | 2020-04-16 09:45 | PN ---
Progress Note, Physician Chief Complaint: Anemia ESRD Bacteremia AMS History of Present Illness: Previous notes and events reviewed awake and alert NAD Hg 8.5 Patient sts having 3 episodes of diarrhea during the night and one episode this morning, denies abdominal cramping with diarrhea. Complains of epigastric pain and bloating She wishes to transferred to [facility], called [phone] and left message to initiate transfer denies complaints of CP or palpitations edema LLE noted-Vascular US ordered - Current Medication List Current Medications: Active Medications Acetaminophen (Tylenol -) 650 mg PO Q6H PRN PRN Reason: MILD PAIN Last Admin: 04/15/20 04:10 Dose: 650 mg Documented by: Aripiprazole (Abilify) 30 mg PO DAILY [facility] Last Admin: 04/15/20 10:59 Dose: 30 mg Documented by: Artificial Tears (Artificial Tears) 1 drop OU BID PRN PRN Reason: DRY EYES Carbamazepine (Tegretol Xr -) 300 mg PO BID [facility] Last Admin: 04/15/20 21:20 Dose: 300 mg Documented by: Fentanyl (Sublimaze Injection -) 50 mcg IVPUSH [id number] PRN PRN Reason: PAIN-PACU ORDER X 4 DOSES ONLY Hydroxyzine Pamoate (Vistaril -) 50 mg PO TID PRN PRN Reason: ANXIETY Last Admin: 04/15/20 17:47 Dose: 50 mg Documented by: Levothyroxine Sodium (Synthroid -) 25 mcg PO DAILY@0700 [facility] Last Admin: 04/16/20 06:31 Dose: Not Given Documented by: Metoprolol Tartrate (Lopressor Injection -) 5 mg IVPUSH Q4H PRN PRN Reason: TACHYCARDIA Metoprolol Tartrate (Lopressor -) 12.5 mg PO BID [facility] Last Admin: 04/15/20 21:20 Dose: 12.5 mg Documented by: Multivitamins/Minerals/Vitamin C (Tab-A-Vit -) 1 tab PO DAILY [facility] Last Admin: 04/15/20 10:59 Dose: 1 tab Documented by: Pantoprazole Sodium (Protonix -) 40 mg PO DAILY [facility] Last Admin: 04/15/20 10:58 Dose: 40 mg Documented by: Pramipexole Dihydrochloride (Mirapex -) 0.5 mg PO TID [facility] Last Admin: 04/15/20 21:20 Dose: 0.5 mg Documented by: Quetiapine Fumarate (Seroquel -) 100 mg PO DAILY@1400 [facility] Last Admin: 04/15/20 13:06 Dose: 100 mg Documented by: Quetiapine Fumarate (Seroquel -) 200 mg PO DAILY@0600 [facility] Last Admin: 04/16/20 06:31 Dose: Not Given Documented by: Quetiapine Fumarate (Seroquel -) 400 mg PO HS [facility] Last Admin: 04/15/20 21:19 Dose: 400 mg Documented by: Simethicone (Mylicon -) 80 mg PO QID PRN PRN Reason: GAS - Objective Vital Signs: Vital Signs Temperature 98 F 04/16/20 06:00 Pulse Rate 99 H 04/16/20 06:00 Respiratory Rate 20 04/16/20 06:00 Blood Pressure 126/77 04/16/20 06:00 O2 Sat by Pulse Oximetry (%) 100 04/16/20 06:00 Constitutional: Yes: No Distress, Calm Eyes: Yes: Conjunctiva Clear HENT: Yes: Atraumatic Cardiovascular: Yes: Regular Rate and Rhythm Respiratory: Yes: Regular, Diminished Gastrointestinal: Yes: Normal Bowel Sounds, Soft Genitourinary: Yes: Incontinence Musculoskeletal: Yes: Muscle Weakness Extremities: Yes: Other (L AVF) Edema: No Integumentary: Yes: Bruising (LUE) Wound/Incision: Yes: Dressing Dry and Intact Neurological: Yes: Alert, Oriented Psychiatric: Yes: Alert, Oriented Labs: CBC, BMP 04/15/20 07:00 04/15/20 07:00 INR, PTT INR 1.23 (0.83-1.09) H 04/08/20 09:30 Microbiology 04/10/20 18:40 Blood - Peripheral Venous Blood Culture - Final NO GROWTH AFTER 5 DAYS INCUBATION 04/11/20 22:30 Stool Clostridioides difficile Antigen - Final 04/11/20 22:30 Stool Clostridioides difficile Toxin Assay - Final 04/08/20 09:30 Blood - Peripheral Venous Blood Culture - Final Staph Capitis Subsp Ureolyticu 04/08/20 09:35 Blood - Peripheral Venous Blood Culture - Final Staphylococcus Epidermidis Problem List - Problems (1) Acute metabolic encephalopathy Assessment/Plan: Head CT scan shows chronic lacunar infarct, no acute pathology 2/2 Sepsis Code(s): G93.41 - METABOLIC ENCEPHALOPATHY (2) Anemia Assessment/Plan: Hg 8.5 receives Epoetin in HD as needed Monitor Hg daily Infuse with PRBC for Hg <7.0 to avoid fluid overload Stool OB neg Multivitamin Code(s): D64.9 - ANEMIA, UNSPECIFIED Qualifiers: Anemia type: unspecified type Qualified Code(s): D64.9 - Anemia, unspecified (3) Atrial fibrillation Assessment/Plan: not on AC due to high risk for falls, benefit outweigh risk Code(s): I48.91 - UNSPECIFIED ATRIAL FIBRILLATION (4) Bacteremia Assessment/Plan: 04/08/20 BC positive, 04/10/20 BC neg ID on board currently off IV ABX no leukocytosis afebrile C-diff neg Code(s): R78.81 - BACTEREMIA (5) ESRD (end stage renal disease) on dialysis Assessment/Plan: Nephrology on board continue with HD on scheduled days s/p thrombectomy of L AVF BUN/Cr 22.3/4.4 Code(s): N18.6 - END STAGE RENAL DISEASE; Z99.2 - DEPENDENCE ON RENAL DIALYSIS (6) Hypothyroidism Assessment/Plan: Levothyroxine Code(s): E03.9 - HYPOTHYROIDISM, UNSPECIFIED (7) Fall Assessment/Plan: Fall precaution PT Code(s): W19.XXXA - UNSPECIFIED FALL, INITIAL ENCOUNTER (8) Diarrhea Assessment/Plan: Stool Culture and Stool Ova and Parasite ordered low residue diet if diarrhea does not resolve consider GI consult Code(s): R19.7 - DIARRHEA, UNSPECIFIED (9) Epigastric pain Assessment/Plan: Pantoprazole Simethicone prn for bloating Code(s): R10.13 - EPIGASTRIC PAIN
[2020-04-16] MEDS ORDERED: PT OWN MED DRAWER 7, Y5N ONE ×3 (09:49→21:07)
[2020-04-16 09:57] LABS: HEMATOCRIT 27.1 % (32.4-45.2); HEMOGLOBIN 8.5 GM/dL (10.7-15.3); MCH 32.6 pg (25.7-33.7); MCHC 31.5 g/dl (32.0-36.0); MEAN CELL VOLUME 103.3 fl (80-96); PLATELET COUNT 71 K/MM3 (134-434); RBC 2.62 M/mm3 (3.60-5.2); RDW 23.4 % (11.6-15.6); WHITE BLOOD COUNT 5.5 K/mm3 (4.0-10.0)
[2020-04-16 10:28] LABS: ALBUMIN 2.8 g/dl (3.4-5.0); BILIRUBIN,TOTAL 1.4 mg/dL (0.2-1); BLOOD UREA NITROGEN 22.3 mg/dL (7-18); CREATININE 4.4 mg/dL (0.55-1.3); POTASSIUM 3.6 mmol/L (3.5-5.1); TOT PROT 6.3 g/dl (6.4-8.2)
[2020-04-16] MEDS: METOPROLOL TARTRATE 25 MG TABLET (FP) PO SCH ×2 (10:49→21:25)
[2020-04-16] MEDS: PANTOPRAZOLE 40 MG TABLET PO SCH (10:49)
[2020-04-16] MEDS: MULTIVITAMINS (DAILY MVI) TABLET (FP) PO SCH (10:49)
[2020-04-16] MEDS: ARIPiprazole 15 MG TABLET PO SCH (10:50)
--- NOTE | 2020-04-16 11:20 | PN ---
Progress Note (short form) - Note Progress Note: PULMONARY Denies shortness of breath, chest pain. Vital Signs Period Temp Pulse Resp BP Sys/Corbett Pulse Ox Last 24 Hr 98 F-98.4 F 99-124 20-20 112-163/57-93 100-100 Gen: NAD at rest Heart: RRR Lung: decreased breath sounds at the bases Abd: soft, nontender Ext: no edema CBC, BMP 04/16/20 09:46 04/16/20 09:46 Active Medications Acetaminophen (Tylenol -) 650 mg PO Q6H PRN PRN Reason: MILD PAIN Last Admin: 04/15/20 04:10 Dose: 650 mg Documented by: Aripiprazole (Abilify) 30 mg PO DAILY [facility] Last Admin: 04/16/20 10:50 Dose: 30 mg Documented by: Artificial Tears (Artificial Tears) 1 drop OU BID PRN PRN Reason: DRY EYES Carbamazepine (Tegretol Xr -) 300 mg PO BID [facility] Last Admin: 04/16/20 10:50 Dose: 300 mg Documented by: Fentanyl (Sublimaze Injection -) 50 mcg IVPUSH [id number] PRN PRN Reason: PAIN-PACU ORDER X 4 DOSES ONLY Hydroxyzine Pamoate (Vistaril -) 50 mg PO TID PRN PRN Reason: ANXIETY Last Admin: 04/15/20 17:47 Dose: 50 mg Documented by: Levothyroxine Sodium (Synthroid -) 25 mcg PO DAILY@0700 [facility] Last Admin: 04/16/20 06:31 Dose: Not Given Documented by: Metoprolol Tartrate (Lopressor Injection -) 5 mg IVPUSH Q4H PRN PRN Reason: TACHYCARDIA Metoprolol Tartrate (Lopressor -) 12.5 mg PO BID [facility] Last Admin: 04/16/20 10:49 Dose: 12.5 mg Documented by: Multivitamins/Minerals/Vitamin C (Tab-A-Vit -) 1 tab PO DAILY [facility] Last Admin: 04/16/20 10:49 Dose: 1 tab Documented by: Pantoprazole Sodium (Protonix -) 40 mg PO DAILY [facility] Last Admin: 04/16/20 10:49 Dose: 40 mg Documented by: Pramipexole Dihydrochloride (Mirapex -) 0.5 mg PO TID [facility] Last Admin: 04/15/20 21:20 Dose: 0.5 mg Documented by: Quetiapine Fumarate (Seroquel -) 100 mg PO DAILY@1400 [facility] Last Admin: 04/15/20 13:06 Dose: 100 mg Documented by: Quetiapine Fumarate (Seroquel -) 200 mg PO DAILY@0600 [facility] Last Admin: 04/16/20 06:31 Dose: Not Given Documented by: Quetiapine Fumarate (Seroquel -) 400 mg PO HS [facility] Last Admin: 04/15/20 21:19 Dose: 400 mg Documented by: Simethicone (Mylicon -) 80 mg PO QID PRN PRN Reason: GAS Last Admin: 04/16/20 11:02 Dose: 80 mg Documented by: A/P Septic Shock improved s/p Fall Large Left Gluteal Hematoma Acute Blood Loss Anemia Atrial Fibrillation ESRD on HD COPD Hypothyroidism Schizoaffective Disorder - monitor H/H - transfuse as needed - HD per renal - psych meds - DVT prophylaxis
--- NOTE | 2020-04-16 14:16 | PN ---
Progress Note (short form) - Note Progress Note: RENAL pt denies complaints feels better says she has asked for a transfer so she can be with her primary doctors Last Vital Signs Temp Pulse Resp BP Pulse Ox 97.9 F 116 H 20 142/68 100 04/16/20 09:00 04/16/20 09:00 04/16/20 09:00 04/16/20 09:00 04/16/20 09:00 lungs clear cvs s1s2 rr abd soft ext no edema neuro a+ox3 CBC, BMP 04/16/20 09:46 04/16/20 09:46 Current Medications Generic Name Dose Route Start Last Admin Trade Name Freq PRN Reason Stop Dose Admin Acetaminophen 650 mg 04/14/20 18:20 04/15/20 04:10 Tylenol - PO 650 mg Q6H PRN Administration MILD PAIN Aripiprazole 30 mg 04/15/20 10:00 04/16/20 10:50 Abilify PO 30 mg DAILY [facility] Administration Artificial Tears 1 drop 04/14/20 18:20 Artificial Tears OU BID PRN DRY EYES Carbamazepine 300 mg 04/14/20 22:00 04/16/20 10:50 Tegretol Xr - PO 300 mg BID [facility] Administration Fentanyl 50 mcg 04/14/20 18:58 Sublimaze Injection - IVPUSH [id number] PRN PAIN-PACU ORDER X 4 DOSES ONLY Hydroxyzine Pamoate 50 mg 04/14/20 18:20 04/15/20 17:47 Vistaril - PO 50 mg TID PRN Administration ANXIETY Levothyroxine Sodium 25 mcg 04/15/20 07:00 04/16/20 06:31 Synthroid - PO Not Given DAILY@0700 [facility] Metoprolol Tartrate 5 mg 04/14/20 18:20 Lopressor Injection - IVPUSH Q4H PRN TACHYCARDIA Metoprolol Tartrate 12.5 mg 04/14/20 22:00 04/16/20 10:49 Lopressor - PO 12.5 mg BID [facility] Administration Multivitamins/Minerals/Vitamin C 1 tab 04/15/20 10:00 04/16/20 10:49 Tab-A-Vit - PO 1 tab DAILY [facility] Administration Pantoprazole Sodium 40 mg 04/15/20 10:00 04/16/20 10:49 Protonix - PO 40 mg DAILY [facility] Administration Pramipexole Dihydrochloride 0.5 mg 04/14/20 22:00 04/15/20 21:20 Mirapex - PO 0.5 mg TID [facility] Administration Quetiapine Fumarate 100 mg 04/15/20 14:00 04/15/20 13:06 Seroquel - PO 100 mg DAILY@1400 [facility] Administration Quetiapine Fumarate 200 mg 04/15/20 06:00 04/16/20 06:31 Seroquel - PO Not Given DAILY@0600 [facility] Quetiapine Fumarate 400 mg 04/14/20 22:00 04/15/20 21:19 Seroquel - PO 400 mg HS [facility] Administration Simethicone 80 mg 04/16/20 09:32 04/16/20 11:02 Mylicon - PO 80 mg QID PRN Administration GAS Impression 1. ESRD (TTS) 2. sepsis 3. left buttock hematoma 4. bactermia 5. S/P mechanical fall 6. Anemia- macrocytic 7. COPD 8. hypothyroidism 9. a-fib 10. RLS- on mirapex Plan tolerated hd no other acute renal issues MV
[2020-04-16] MEDS: QUEtiapine FUMARATE 100 MG TABLET (FP) PO SCH (15:20)
[2020-04-16] MEDS: PRAMIPEXOLE DIHYDROCHLORIDE 0.5 MG TABLET PO SCH ×2 (15:20→21:25)
[2020-04-16] MEDS: hydrOXYzine PAMOATE 50 MG CAPSULE (FP) PO PRN (23:03)
[2020-04-17] MEDS: PRAMIPEXOLE DIHYDROCHLORIDE 0.5 MG TABLET PO SCH ×2 (01:02→06:22)
[2020-04-17 05:59] VITALS: TEMP 97.7
[2020-04-17] MEDS: QUEtiapine FUMARATE 200 MG TABLET PO SCH (06:22)
[2020-04-17] MEDS: LEVOTHYROXINE NA 25 MCG TABLET (FP) PO SCH (06:22)
[2020-04-17 06:45] LABS: HEMATOCRIT 28.3 % (32.4-45.2); MCH 32.4 pg (25.7-33.7); MCHC 31.7 g/dl (32.0-36.0); MEAN CELL VOLUME 102.2 fl (80-96); MEAN PLT VOLUME 9.7 fl (7.5-11.1); PLATELET COUNT 70 K/MM3 (134-434); RBC 2.77 M/mm3 (3.60-5.2); RDW 23.4 % (11.6-15.6); WHITE BLOOD COUNT 5.5 K/mm3 (4.0-10.0)
[2020-04-17] MEDS ORDERED: PT OWN MED DRAWER 7, Y5N ONE ×2 (07:11→09:21)
[2020-04-17 07:23] LABS: ALBUMIN 2.7 g/dl (3.4-5.0); BLOOD UREA NITROGEN 26.8 mg/dL (7-18); POTASSIUM 3.5 mmol/L (3.5-5.1)
[2020-04-17 07:26] LABS: BILIRUBIN,TOTAL 1.4 mg/dL (0.2-1); CREATININE 5.2 mg/dL (0.55-1.3); TOT PROT 6.5 g/dl (6.4-8.2)
--- NOTE | 2020-04-17 08:15 | DS ---
Physical Examination Vital Signs: Vital Signs Temperature 97.7 F 04/17/20 05:58 Pulse Rate 106 H 04/17/20 05:58 Respiratory Rate 20 04/17/20 05:58 Blood Pressure 132/83 04/17/20 05:58 O2 Sat by Pulse Oximetry (%) 97 04/17/20 02:00 Constitutional: Yes: Mild Distress Cardiovascular: Yes: Pulse Irregular Respiratory: Yes: CTA Bilaterally Gastrointestinal: Yes: Soft Neurological: Yes: Confusion Psychiatric: Yes: Agitated Labs: CBC, BMP 04/17/20 06:15 04/17/20 06:15 Discharge Summary Problems reviewed: Yes Reason For Visit: ANEMIA, ALTERED MENTAL STATUS Current Active Problems Acute metabolic encephalopathy (Acute) Altered mental status (Acute) Anemia (Acute) Atrial fibrillation (Acute) Bacteremia (Acute) Clotted renal dialysis AV graft (Acute) Diarrhea (Acute) ESRD (end stage renal disease) (Acute) ESRD (end stage renal disease) on dialysis (Acute) Epigastric pain (Acute) Hypothyroidism (Acute) Pain in hip joint (Acute) Sepsis (Acute) Procedures: Principal: THROMBOSTOMY LEFT AVF Hospital Course: ADMITTED FOR THROMBLASTY LEFT AVF, WOUND CARE, MENTAL STATUS CHANGE WITH METABOLIC ENCEPHALOPATHY Plan of Treatment: [facility], [facility]F-WAY CARE Goals: RETURN TO RESIDENCE, HD ON SCHEDULED DAYS Condition: Improved - Instructions Diet, Activity, Other Instructions: ESRD ON RENAL DIET HD SCHEDULED DAYS Referrals: Laura Rose MD [Primary Care Provider] - Disposition: [facility] - Home Medications Comprehensive Discharge Medication List: Ambulatory Orders Acetaminophen [Non-Aspirin Extra Strength] 1,000 mg PO BID 04/08/20 Aripiprazole 30 mg PO DAILY 04/08/20 Calcium Acetate 2 tab PO DAILY 04/08/20 Carbamazepine [Carbamazepine ER] 300 mg PO BID 04/08/20 Cyclobenzaprine HCl 2 tab PO DAILY 04/08/20 Febuxostat [Uloric -] 80 mg PO DAILY 04/08/20 Furosemide 80 mg PO DAILY 04/08/20 Multivitamin 1 each PO DAILY 04/08/20 Pantoprazole Sodium [Protonix] 40 mg PO DAILY 04/08/20 Pramipexole Di-HCl [Mirapex] 0.5 mg PO TID 04/08/20 Pravastatin Sodium [Pravachol -] 40 mg PO HS 04/08/20 Quetiapine Fumarate [Quetiapine Fumarate ER] 200 mg PO DAILY 04/08/20 Quetiapine Fumarate [Seroquel -] 400 mg PO HS 04/08/20 Sevelamer Carbonate 800 mg PO DAILY 04/08/20 hydrOXYzine PAMOATE [Vistaril -] 50 mg PO TID 04/08/20 Quetiapine Fumarate [Seroquel -] 200 mg PO DAILY 04/12/20 Acetaminophen [Tylenol .Regular Strength -] 650 mg PO Q6H PRN tablet 04/17/20 Levothyroxine [Synthroid -] 25 mcg PO DAILY@0700 tablet 04/17/20 Metoprolol Tartrate [Lopressor -] 12.5 mg PO BID tablet 04/17/20 Multivitamins [Multivit ([facility] Formulary)] 1 tab PO DAILY tab 04/17/20 Pantoprazole Sodium [Protonix -] 40 mg PO DAILY tablet.ec 04/17/20 Polyvinyl Alcohol [Artificial Tears] 1 drop OU BID PRN drops 04/17/20 Quetiapine Fumarate [Seroquel -] 200 mg PO DAILY@0600 tablet 04/17/20 Quetiapine Fumarate [Seroquel -] 400 mg PO HS tablet 04/17/20 Simethicone [Mylicon -] 80 mg PO QID PRN tab.chew 04/17/20 Prescription Drug Monitoring Program (I-STOP) results: I-STOP not reviewed
[2020-04-17 09:37] VITALS: BP 136/69; PULSE 108
[2020-04-17] MEDS: PANTOPRAZOLE 40 MG TABLET PO SCH (09:54)
[2020-04-17] MEDS: METOPROLOL TARTRATE 25 MG TABLET (FP) PO SCH (09:54)
[2020-04-17] MEDS: MULTIVITAMINS (DAILY MVI) TABLET (FP) PO SCH (09:54)
[2020-04-17] MEDS: ARIPiprazole 15 MG TABLET PO SCH (09:54)
--- NOTE | 2020-04-17 11:49 | PN ---
Progress Note (short form) - Note Progress Note: PULMONARY Denies shortness of breath, chest pain. Vital Signs Period Temp Pulse Resp BP Sys/Corbett Pulse Ox Last 24 Hr 97.6 F-98.2 F 101-109 20-22 127-151/68-84 92-99 Gen: NAD at rest Heart: RRR Lung: decreased breath sounds at the bases Abd: soft, nontender Ext: no edema CBC, BMP 04/17/20 06:15 04/17/20 06:15 A/P Bacteremia Septic Shock improved s/p Fall Large Left Gluteal Hematoma Acute Blood Loss Anemia Atrial Fibrillation ESRD on HD COPD Hypothyroidism Schizoaffective Disorder - monitor H/H - HD per renal - psych meds - DVT prophylaxis - d/c planning in progress
--- NOTE | 2020-04-17 14:24 | PN ---
Progress Note, Physician History of Present Illness: Pt comfortable. - Objective Vital Signs: Vital Signs Temperature 97.7 F 04/17/20 09:36 Pulse Rate 108 H 04/17/20 09:36 Respiratory Rate 20 04/17/20 09:36 Blood Pressure 136/69 04/17/20 09:36 O2 Sat by Pulse Oximetry (%) 92 L 04/17/20 09:00 Constitutional: Yes: Calm Eyes: Yes: Conjunctiva Clear HENT: Yes: Atraumatic Neck: Yes: Supple Cardiovascular: Yes: S1, S2 Respiratory: Yes: CTA Bilaterally Gastrointestinal: Yes: Soft Musculoskeletal: Yes: WNL Edema: No Neurological: Yes: Oriented Labs: CBC, BMP 04/17/20 06:15 04/17/20 06:15 INR, PTT INR 1.23 (0.83-1.09) H 04/08/20 09:30 Problem List - Problems (1) Altered mental status Code(s): R41.82 - ALTERED MENTAL STATUS, UNSPECIFIED Qualifiers: Altered mental status type: unspecified Qualified Code(s): R41.82 - Altered mental status, unspecified (2) Atrial fibrillation Code(s): I48.91 - UNSPECIFIED ATRIAL FIBRILLATION (3) ESRD (end stage renal disease) Code(s): N18.6 - END STAGE RENAL DISEASE Assessment/Plan Current Medications Generic Name Dose Route Start Last Admin Trade Name Freq PRN Reason Stop Dose Admin Acetaminophen 650 mg 04/13/20 19:40 04/14/20 04:13 Tylenol - PO 650 mg Q6H PRN Administration MILD PAIN Aripiprazole 30 mg 04/14/20 10:00 04/14/20 09:36 Abilify PO 30 mg DAILY [facility] Administration Artificial Tears 1 drop 04/13/20 19:40 Artificial Tears OU BID PRN DRY EYES Carbamazepine 300 mg 04/13/20 22:00 04/14/20 09:38 Tegretol Xr - PO 300 mg BID [facility] Administration Hydroxyzine Pamoate 50 mg 04/13/20 19:40 04/14/20 06:24 Vistaril - PO 50 mg TID PRN Administration ANXIETY Sodium Chloride 250 mls @ 3,000 mls/hr 04/13/20 13:30 Normal Saline - IV 04/14/20 13:29 PRN PRN Hypotension during Dialysis Levothyroxine Sodium 25 mcg 04/14/20 07:00 04/14/20 06:23 Synthroid - PO 25 mcg DAILY@0700 [facility] Administration Metoprolol Tartrate 12.5 mg 04/13/20 11:30 04/14/20 09:36 Lopressor - PO 12.5 mg BID [facility] Administration Metoprolol Tartrate 5 mg 04/13/20 15:08 Lopressor Injection - IVPUSH Q4H PRN TACHYCARDIA Multivitamins/Minerals/Vitamin C 1 tab 04/14/20 10:00 04/14/20 09:39 Tab-A-Vit - PO 1 tab DAILY [facility] Administration Pantoprazole Sodium 40 mg 04/14/20 10:00 04/14/20 09:39 Protonix - PO 40 mg DAILY [facility] Administration Pramipexole Dihydrochloride 0.5 mg 04/13/20 22:00 04/14/20 06:23 Mirapex - PO 0.5 mg TID [facility] Administration Quetiapine Fumarate 100 mg 04/14/20 14:00 Seroquel - PO DAILY@1400 [facility] Quetiapine Fumarate 400 mg 04/13/20 22:00 04/13/20 21:16 Seroquel - PO 400 mg HS [facility] Administration Quetiapine Fumarate 200 mg 04/14/20 06:00 04/14/20 06:25 Seroquel - PO 200 mg DAILY@0600 [facility] Administration Impression 1. ESRD (TTS) 2. sepsis 3. left buttock hematoma 4. bactermia 5. S/P mechanical fall 6. Anemia 7. COPD 8. hypothyroidism 9. a-fib Plan - pt had hd set up as outpt - cont renal diet - avoid nsaids - monitor hg as outp as well
--- NOTE | 2020-04-26 09:04 | OP ---
DATE OF OPERATION: 04/14/2020 PREOPERATIVE DIAGNOSIS: Clotted left arteriovenous graft. POSTOPERATIVE DIAGNOSIS: Clotted left arteriovenous graft. PROCEDURE: Venogram, thrombectomy, venoplasty left arteriovenous graft. SURGEON: Adelfo Pagan DO ANESTHESIA: Fractional. BLOOD LOSS: 50 mL INDICATION: Patient is a 75-year-old female that that comes in with a left clotted AV graft. It was decided that she would need a thrombectomy. Patient kindly consented for the procedure understanding all risks, benefits and alternatives. DESCRIPTION OF PROCEDURE: The patient was brought into the operating room. Once in the operating room, she was laid on the operating table in the supine manner and the area of the left arm was prepped and draped in a sterile surgical manner. Under ultrasound guidance we visualized the proximal AV graft above the anastomosis and 10 mL of lidocaine 1% was injected there. We then went ahead and used our micropuncture needle, punctured the proximal AV graft. Micropuncture wire was inserted. Micropuncture sheath was inserted and a traditional short 6-[place] sheath was inserted. We then went ahead and shot our venogram showing that the graft was patent, but the distal venous anastomosis was severely stenosed about 80% to 90%. We then went ahead and placed a 0.035 floppy guidewire across the anastomosis. We then went ahead and used an 8 x 8 [place] balloon. Prior to performing venoplasty in the graft 5000 units of IV heparin were administered to the patient and we then performed venoplasty of the entire AV graft and the distal venous anastomosis. Completion venogram now showed that the distal AV graft was patent. We then went ahead and injected 5 mL of lidocaine 1% over the distal AV graft. We then used our micropuncture needle and punctured the AV graft. Micropuncture wire was inserted. Micropuncture sheath was inserted and a traditional short 6-[place] sheath was placed facing the arterial anastomosis. We then used a No. 4 Jan[place] and performed thrombectomy of the proximal AV graft. We then went ahead and used a 6 x 4 balloon and performed venoplasty of the proximal AV graft. Completion venogram now showed that the graft was patent. There was a good thrill in the graft. There was good flow going into the central veins. At this point we used a 4-0 Biosyn stitch and a [id number] stitch was placed around sheath and the sheaths were pulled. Areas were wet and dried and Dermabond was placed. Patient tolerated the procedure with no complications. Patient will be transferred to PACU and then to dialysis. ADELFO PAGAN DO NP/[id number]
== END 2020-04-17 11:44 | DRG 853 ==
LOC: JER 09:17 → JERBED 15:50 → JICU 19:33 → J4W 04-13 20:09
PROVIDERS: ADMIT Internal Medicine Pulmonary Disease; ATTEND Family Medicine
PROC: 30233N1 Transfusion of Nonautologous Red Blood Cells into Peripheral Vein, Percutaneous Approach (ICD-10-PCS; 2020-04-08)
PROC: 5A1D70Z Performance of Urinary Filtration, Intermittent, Less than 6 Hours Per Day (ICD-10-PCS; 2020-04-10)
PROC: B50NYZZ Plain Radiography of Left Upper Extremity Veins using Other Contrast (ICD-10-PCS; 2020-04-14)
PROC: 05CY3ZZ Extirpation of Matter from Upper Vein, Percutaneous Approach (ICD-10-PCS; principal; 2020-04-14 15:00)
DX: A41.2 Sepsis due to unspecified staphylococcus (principal); N18.6 End stage renal disease; G93.41 Metabolic encephalopathy; R65.21 Severe sepsis with septic shock; I12.0 Hypertensive chronic kidney disease with stage 5 chronic kidney disease or end stage renal disease; D62 Acute posthemorrhagic anemia; T82.868A Thrombosis due to vascular prosthetic devices, implants and grafts, initial encounter; J44.9 Chronic obstructive pulmonary disease, unspecified; E03.9 Hypothyroidism, unspecified; S70.12XA Contusion of left thigh, initial encounter; I48.91 Unspecified atrial fibrillation; Z99.2 Dependence on renal dialysis; F31.9 Bipolar disorder, unspecified; F25.9 Schizoaffective disorder, unspecified; D63.1 Anemia in chronic kidney disease; F41.9 Anxiety disorder, unspecified; Y83.8 Other surgical procedures as the cause of abnormal reaction of the patient, or of later complication, without mention of misadventure at the time of the procedure; R19.7 Diarrhea, unspecified; W19.XXXA Unspecified fall, initial encounter; Y93.89 Activity, other specified; Y92.89 Other specified places as the place of occurrence of the external cause; Y99.8 Other external cause status
CPT/HCPCS: 36415; 36430; 36511; 36600; 70450-TC; 71045-TC-FY; 71250-TC; 72125-TC; 72192-TC; 74176-TC; 76000-TC-FY; 80048; 80053; 82272; 82550; 82607; 82728; 82803; 83540; 83550; 83605; 83735; 84100; 84439; 84443; 84484; 85025; 85027; 85610; 85730; 86704; 86706; 86707; 86708; 86709; 86803; 86850; 86900; 86901; 86922; 87040; 87045; 87046; 87177; 87186; 87209; 87324; 87340; 87449; 93005; 93010; 93306-TC; 93971-TC; 94760; 97116-GP; 97161-GP; 99285-25; G0480; J0131; J0885; J1644; P9038; P9058; Q5106; U0003

== ENCOUNTER 2020-05-02 12:48 | Inpatient (IN) | payer OTHER ==
[2020-05-02 13:51] LABS: EOS % 3.7 % (0-4.5); HEMOGLOBIN 10.1 GM/dL (10.7-15.3); LYMPH % 9.5 % (8-40); MCH 34.5 pg (25.7-33.7); MCHC 32.7 g/dl (32.0-36.0); MEAN CELL VOLUME 105.5 fl (80-96); MEAN PLT VOLUME 12.3 fl (7.5-11.1); MONO % 12.2 % (3.8-10.2); NEUT % 73.6 % (42.8-82.8); PLATELET COUNT 101 K/MM3 (134-434); RBC 2.94 M/mm3 (3.60-5.2); RDW 23.5 % (11.6-15.6); WHITE BLOOD COUNT 5.3 K/mm3 (4.0-10.0)
--- OUTSIDE RECORDS SUMMARY | 2020-05-02 13:57 | XMS ---
:1945 Author Organization [facility] ER Care Team Providers Name Role Phone Martha Carrero MD Unavailable Unavailable Pedro Elder Unavailable Unavailable Joanne Kenyon PA-C Unavailable Unavailable DO Franc Unavailable Unavailable MD Doris Unavailable Unavailable Ayaka Unavailable Unavailable MD Atul Unavailable Unavailable MD Atul Unavailable Unavailable MD Maikel Unavailable Unavailable MD Shaq Unavailable Unavailable MD Kenney Unavailable Unavailable MD Rachel Unavailable Unavailable Álvaro DO Unavailable Unavailable MD Alexander Unavailable Unavailable MD Harlan Unavailable Unavailable MD Steven Unavailable Unavailable MD Aram Unavailable Unavailable MD Caesar Unavailable Unavailable MD Kenyon Unavailable Unavailable Julio DO Unavailable Unavailable Damon Guzman MD Unavailable Unavailable MD Mulu Unavailable Unavailable MD Mulu Unavailable Unavailable MD Mulu Unavailable Unavailable Jeremie Unavailable Unavailable MD Roque Unavailable Unavailable Brittni Alva MD Unavailable Unavailable MD Jarrett Unavailable Unavailable SERGIO TEJEDA Unavailable Unavailable MD José Antonio Unavailable Unavailable Jonah Unavailable Unavailable Jonah Unavailable Unavailable Jonah Unavailable Unavailable Jonah Unavailable Unavailable Jonah Unavailable Unavailable MD Jeet Unavailable Unavailable MD Crorie Unavailable Unavailable MD Mainor Unavailable Unavailable MD Allan Unavailable Unavailable MD Caryn Unavailable Unavailable Colantoni, DO Unavailable Unavailable WINSTON MCCRAY HABIB Unavailable Unavailable Zentko Unavailable Unavailable Keiko, DO Unavailable Unavailable ERICKSON PHILLIPS Unavailable Unavailable Rosmery DO Unavailable Unavailable MD Darrick Unavailable Unavailable MD Chandrakant Unavailable Unavailable MOOKIE KUHN Unavailable Unavailable MD Jayden Unavailable Unavailable Holly Arriaza MD Unavailable Unavailable MD oRss Unavailable Unavailable MD Beth Unavailable Unavailable Wilbert Patel MD Unavailable Unavailable MD Bhupinder Unavailable Unavailable Jagdeep Unavailable Unavailable MD Anders Unavailable Unavailable SANDY Morales Unavailable Unavailable MD Channing Unavailable Unavailable Alondra DO Unavailable Unavailable MD Gentry Unavailable Unavailable MD Alvino Unavailable Unavailable Deepa Keenan MD Unavailable Unavailable SERGIO Trimble Unavailable Unavailable Fransisco Ireland MD Unavailable Unavailable EMERGENCY SERVICE, X Unavailable Unavailable Cristofer Unavailable Unavailable MD Ender Unavailable Unavailable MD Carlos Unavailable Unavailable Mahendra, JESUS Unavailable Unavailable Re-disclosure Warning The records that you are about to access may contain information from federally- assisted alcohol or drug abuse programs. If such information is present, then the following federally mandated warning applies: This information has been disclosed to you from records protected by federal confidentiality rules (42 CFR part 2). The federal rules prohibit you from making any further disclosure of this information unless further disclosure is expressly permitted by the written consent of the person to whom it pertains or as otherwise permitted by 42 CFR part 2. A general authorization for the release of medical or other information is NOT sufficient for this purpose. The Federal rules restrict any use of the information to criminally investigate or prosecute any alcohol or drug abuse patient.The records that you are about to access may contain highly sensitive health information, the redisclosure of which is protected by Article 27-F of the [facility] Public Health law. If you continue you may haveaccess to information: Regarding HIV / AIDS; Provided by facilities licensed or operated by the [facility] Office of Mental Health; or Provided by the [facility] Office for People With Developmental Disabilities. If such information is present, then the following [facility] mandated warning applies: This information has been disclosed to you from confidential records which are protected by state law. State law prohibits you from making any further disclosure of this information without the specific written consent of the person to whom it pertains, or as otherwise permitted by law. Any unauthorized further disclosure in violation of state law may result in a fine or mcc sentence or both. A general authorization for the release of medical or other information is NOT sufficient authorization for further disclosure. Allergies and Adverse Reactions Type Description Substance Reaction Status Data Source(s) Miscellaneous TAPE TAPE RASH [place] [facility] Drug allergy denosumab denosumab ANAPHYLAXIS [facility] [place] [facility] Drug allergy levofloxacin levofloxacin ABD PAIN [place] [facility] Drug allergy gabapentin gabapentin NOT LISTED [facility] Drug allergy ciprofloxacin ciprofloxacin UNKNOWN [place] [facility] Drug allergy trimethoprim trimethoprim ABD PAIN [place] [facility] Drug allergy sulfamethoxazole sulfamethoxazole ABD PAIN MO [place] [facility] Drug allergy NSAIDS NSAIDS CANNOT HAVE [place] (Non-Steroidal (Non-Steroidal R/T [place] Hospit al Anti-Inflamma Anti-Inflamma Drug allergy No Known Drug No Known Drug [place] [facility] Allergies Allergies [facility] Drug allergy levofloxacin levofloxacin Unknown U [facility] Encounters Encounter Providers Location Date Indications Data Source(s ) Inpatient Attender: Stef 04/21/2020 CHEST PAIN, EKG [facility] Venancio 01:13:00 PM [facility] MDAttender: Walt Chiu 04/23/2020 MDAttender: Daren 04:49:00 PM ZentkoAdmitter: EDT Walt Chiu MDConsultant: Hal Hardwcik MDConsultant: Gil George MD CHEST PAIN, EKG CHANGES Patient discharged. Inpatient Attender: Chucho 03/25/2020 [facility]: 04/01/2020 Bakari Nevarez 02:58:00 PM EDT MDAttender: Ronald Aden DOAttender: Vadim Farias MDAdmitter: [facility] DOConsultant: Aditya Mccray NPConsultant: Hal Hardwick MDConsultant: Jonas New MDConsultant: Soni Campos MD PSYCH EVAL-SI EMS [facility] Patient discharged. Emergency Attender: Alfredito 02/23/2020 11:20:00 FALL W [facility] Franc DO AM EDT - 02/23/2020 [facility] 04:25:00 PM EDT FALL [facility] Patient discharged. 02/09/2020 11:45:00 [place] AM EDT Hospital Inpatient Attender: Chalo Kim 02/08/2020 08:56:00 FLUID O VERLOAD [place] DOAttender: Walt PM EDT - 02/10/2020 Hospital [facility] 01:00:00 AM EDT MDAttender: Guerrero Botello DOAdmitter: Walt Chiu MDConsultant: Desi Lemus MD FLUID OVERLOAD Patient discharged. P Attender: Guerrero 02/08/2020 08:34:00 PM SOB (A RR-[facility]) [facility] EDT [facility] SOB (ARR-[facility]) Emergency Attender: Sky 01/21/2020 NAUSEA [place] [facility] Anders FORRESTER 10:23:00 AM EDT - -[facility] 01/21/2020 05:06:00 PM EDT NAUSEA AM-[facility] Patient discharged. Inpatient Attender: Ernst 01/15/2020 ACUTE RESP [facility] Vad[place] MDAttender: 05:28:00 PM EDT - [facility]: 01/20/2020 HYPOXIA Waltange Chiu 03:28:00 PM EDT MDAttender: Alfredito Bruner DOAttender: Karl Hayward MDAdmitter: Walt Chiu MDConsultant: Hal Hardwick MD ACUTE RESP FAILURE WITH HYPOXIA Patient discharged. Emergency Attender: Pedro 01/14/2020 06:40:00 AM FELL AU TO [facility] EDT - 01/14/2020 [facility] 11:01:00 AM EDT FELL AUTO Patient discharged. Inpatient Attender: Isreal Munoz 12/07/2019 BRADYCARDIA [facility] MDAttender: Dany Stallings 04:42:00 PM EDT - Hospital MDAttender: Timbo Cantu 12/10/2019 DOAdmitter: Radha Barrera 04:53:00 PM EDT Fitta MDConsultant: Franc WashburncorelliConsultant: Desi Lemus MD BRADYCARDIA Patient discharged. Inpatient Attender: SHEHU 11/22/2019 11:37:00 SYNCOPE [facility] MERITAAttender: JACQUELINE, PM EDT - 11/26/2019 [facility] RANDYAttender: MAHENDRA 06:15:00 PM EDT [facility] AAQIB HABIBAdmitter: WINSTON MCCRAY HABIBReferrer: WINSTON MCCRAY SYNCOPE Patient admitted. Emergency Attender: ANJUM MCCRAYKAMARI 11/22/2019 LV 2 FEMALE 7 3 [facility] HABIBAttender: 08:57:00 PM EDT FALL [facility] EMERGENCY SERVICE, [facility] XAdmitter: WINSTON MCCRAYIB LV 2 FEMALE 73 FALL Inpatient Attender: Madhuri Snell 09/13/2019 GERD; ABD Wh ite [place] MDAttender: Indigo Ireland 05:40:00 PM EST - PAIN/AC S RULE Hospital MDAttender: Roxanna 09/15/2019 OUT SchmittAdmitter: Indigo 01:47:00 PM EST Shu MDConsultant: Desi Lemus MD GERD; ABD PAIN/ACS RULE OUT Patient discharged. Inpatient Attender: Isabelle Ramos 09/04/2019 12:34:00 G I BLEED [place] MDAttender: Adam MCKINNEY EST - [facility]2019 [facility]: 02:16:00 PM EST [facility] Hospital[facility]: Adam Hollingsworth MDConsultant: Hal Hardwick MD GI BLEED Patient discharged. Inpatient Attender: Mahnaz 08/24/2019 03:20:00 SUICIDAL [place] Niforos MDAttender: PM EST - 08/27/2019 [facility] 06:46:00 PM EST MDAttender: Damari Keenan MDAttender: Loretta Denton MDAdmitter: Walt Chiu MDConsultant: Jovany Alva MDConsultant: Soni Campos MD SUICIDAL IDEATION Patient discharged. Emergency Attender: Vadim 08/04/2019 04:55:00 PAIN EMPRE SS [place] Jarrett FORRESTER PM EST - 08/04/2019 [facility] 07:48:00 PM EST PAIN [facility] Patient discharged. Inpatient Attender: Debra Rinaldi 07/14/2019 11:24:00 PNEUMON [place] MDAttender: Jiwanjot PM EST - 07/23/2019 [facility] Shlomo MDAttender: 04:07:00 PM EST Yaneth Moulton MDAttender: Martha Carrero MDAttender: Bakari Nevarez MDAdmitter: Martha Pinonpy MDConsultant: Aditya Mccray NPConsultant: Debra Rinaldi MDConsultant: Jovany Alva MD PNEUMONIA Patient discharged. Emergency Attender: Chalo 07/02/2019 NAUSEA/WEAKNESS Jennifer Gonzalez 08:26:00 PM EST - [facility] MDAttender: Aliya 07/03/2019 Atilio 01:47:00 AM EST NAUSEA/WEAKNESS [facility] Patient discharged. Outpatient Attender: Franc 06/07/2019 DIALYSIS/HYPERKALEM [place] PiccorelliAttender: 08:32:00 AM Hosp ital Cj Rubin EST - MDAttender: Yaneth 06/08/2019 Bejinariu MDAttender: 03:09:00 PM Mirta Carpenter MDAttender: EST Guerrero Botello DOAdmitter: Mirta Carpenter MDConsultant: Dean ChaoConsultant: Jovany Alva MD DIALYSIS/HYPERKALEMIA Patient discharged. Inpatient Attender: Yaneth 05/22/2019 04:35:00 SYNCOPE [place] Tapansilvinodianeu MDAttender: AM EDT - 05/25/2019 [facility] 12:11:00 PM EST MDAttender: Lovin Pappy MDAttender: Avinash Eddy DOAdmitter: [facility] MDConsultant: Jovany Alva MD SYNCOPE Patient discharged. Emergency Attender: Joanne 05/19/2019 04:55:00 VISUAL DIS TURBANCE Yuniel Kenyon PM EDT - 05/19/2019 ARR- AUTO Hospital 08:20:00 PM EDT VISUAL DISTURBANCE ARR-AUT O Patient discharged. Emergency Attender: Avinash 05/07/2019 03:05:00 ARM PAIN Yuniel Eddy DO PM EDT - 05/07/2019 (AUTO) Hos pital 04:27:00 PM EDT ARM PAIN (AUTO) Patient discharged. Outpatient Attender: Merrick 04/21/2019 07:30:00 AM A-FIB [facility] EDT - 04/21/2019 07:21:00 AM EDT A-FIB Patient discharged. Inpatient Attender: Mahnaz Marcano 04/19/2019 03:52:00 CHF , SOB, [place] MDAttender: SABANA PM EDT - 04/20/2019 [facility] SUNARAAdmitter: Walt 03:08:00 PM EDT [facility] MDConsultant: Hal Hardwick MD CHF, SOB, ESRD Patient discharged. Inpatient Attender: Liborio 03/02/2019 DIZZINESS/LHNESS W tru [place] MDAttender: 08:02:00 PM EDT - [facility] Yaneth Floresbill 03/10/2019 MDAttender: Dawit 03:43:00 PM EDT Ray MDAttender: Gingermaritza Martinio MDAdmitter: Yaneth Floresbill MDConsultant: Jovany Alva MD DIZZINESS/LHNESS Patient discharged. Inpatient Attender: Pedro 02/18/2019 FISTULA [place] QuinteroAttender: Alejandra 04:09:00 [facility] Ami 02/21/2019 -DD Gadiraju MDAttender: 11:23:00 AM EDT Yary Handley MDAdmitter: Yary Handley MDConsultant: Desi Lemus MD FISTULA DYSFUNCTION ESRD -DD Patient discharged. P Attender: Satnam Guzman 02/10/2019 02:00:00 PM D YSPHAGIA R13.19 Yuniel West MD EDT Hospital DYSPHAGIA R13.19 Emergency Attender: Guille 03/28/2018 03:17:00 SWELLING FEET Yuniel Ko MD AM EDT - 03/28/2018 [place] [facility] 05:05:00 AM EDT SWELLING FEET [place] P 07/02/2017 05:40:00 PM EST NECK PAIN - EMS-[facility] NECK PAIN- [facility] P Attender: Matt Maynard 03/16/2013 12:00:00 AM SO 585.4 [facility] EDT SO 585.4 Functional Status Medications Medication Brand Start Product Dose Route Administrative Pharmacy [facility] Indications Reaction Description Data Name Date Form Instructions Instructions Source(s) bromfenac Bromfe 04/23/ DROP 1 OPHTHA active Wh ite 0.7 MG/ML nac 2020 {Each LMIC [place] [facility] Sodium 12:23: } [facility] Solution 00 PM [Prolensa] EDT Bromfenac Sodium carbamide Carbam 04/23/ SOLUTION 5 AURICU active White peroxide 65 dain 2020 [drp] LAR [place] MG/ML Otic Peroxi 12:23: (OTIC) Hos pital Solution de 00 PM [Debrox] EDT Carbamide Peroxide Carbamazepi Carbam 03/31/ TABLET, 300 ORAL complet White ne 100 MG azepin 2020 CHEWABLE mg ed Plai [facility] Chewable e 09:09: Hospital Tablet 00 AM EDT Carbamazepi Carbam 03/31/ TABLET, 300 ORAL active White ne 100 MG azepin 2020 CHEWABLE mg Plai ns Chewable e 09:09: Hospital Tablet 00 AM EDT Furosemide Furose 01/19/ TABLET 80 mg ORAL complet White 80 MG Oral mide 2020 ed [place] Tablet 08:02: Hospital 00 AM EDT Pramipexole Pramip 01/19/ TABLET 1.5 ORAL active [place] dihydrochlo exole 2020 mg [place] ride 1.5 MG Dihydr 08:02: Hosp ital Oral Tablet ochlor 00 AM [Mirapex] dain EDT Pramipexole Dihydrochlo ride Pramipexole Pramip 01/19/ TABLET 1.5 ORAL active [place] dihydrochlo exole 2020 mg [place] ride 1.5 MG Dihydr 08:02: Hosp ital Oral Tablet ochlor 00 AM [Mirapex] dain EDT Pramipexole Dihydrochlo ride 24 HR Quetia 01/19/ TABLET, 1 ORAL active [place] quetiapine pine 2020 EXTENDED {Caps Plai ns 400 MG Fumara 08:02: RELEASE ule} Hospit al Extended te 00 AM Release EDT Oral Tablet Quetiapine Fumarate Pramipexole Pramip 01/19/ TABLET 1.5 ORAL active [place] dihydrochlo exole 2020 mg [place] ride 1.5 MG Dihydr 08:02: Hosp ital Oral Tablet ochlor 00 AM [Mirapex] dain EDT Pramipexole Dihydrochlo ride Pramipexole Pramip 01/19/ TABLET 1.5 ORAL active [place] dihydrochlo exole 2020 mg [place] ride 1.5 MG Dihydr 08:02: Hosp ital Oral Tablet ochlor 00 AM [Mirapex] dain EDT Pramipexole Dihydrochlo ride Furosemide Furose 01/19/ TABLET 80 mg ORAL active White 80 MG Oral mide 2020 [place] Tablet 08:02: Hospital 00 AM EDT Furosemide Furose 01/19/ TABLET 80 mg ORAL active White 80 MG Oral mide 2020 [place] Tablet 08:02: Hospital 00 AM EDT Pramipexole Pramip 07// TABLET 1.5 ORAL complet [place] dihydrochlo exole 2020 mg ed [place] ride 1.5 MG Dihydr 08:02: Hosp ital Oral Tablet ochlor 00 AM [Mirapex] dain EDT Pramipexole Dihydrochlo ride 24 HR Quetia 01/19/ TABLET, 1 ORAL active White quetiapine pine 2020 EXTENDED {Caps Plai ns 400 MG Fumara 08:02: RELEASE ule} Hospit al Extended te 00 AM Release EDT Oral Tablet Quetiapine Fumarate 24 HR Quetia 01/19/ TABLET, 1 ORAL active White quetiapine pine 2020 EXTENDED {Caps Plai ns 400 MG Fumara 08:02: RELEASE ule} Hospit al Extended te 00 AM Release EDT Oral Tablet Quetiapine Fumarate Amylases Amylas 01/19/ CAPSULE, 3 [place]AL [place] 17672 UNT / e/Lipa 2020 DELAYED {Caps Pl ains Endopeptida se/Pro 08:02: RELEASE ule} [place] 70888 tease 00 AM UNT / EDT Lipase 6000 UNT Delayed Release Oral Capsule [Creon] Amylase/Lip ase/Proteas e Pramipexole Pramip 01/19/ TABLET 1.5 ORAL complet [place] dihydrochlo exole 2020 mg ed [place] ride 1.5 MG Dihydr 08:02: Hosp ital Oral Tablet ochlor 00 AM [Mirapex] dain EDT Pramipexole Dihydrochlo ride Furosemide Furose 07// TABLET 80 mg ORAL active White 80 MG Oral mide 2020 [place] Tablet 08:02: Hospital 00 AM EDT Furosemide Furose 07// TABLET 80 mg ORAL complet White 80 MG Oral mide 2020 ed [place] Tablet 08:02: Hospital 00 AM EDT 24 HR Quetia 01/19/ TABLET, 1 ORAL active White quetiapine pine 2020 EXTENDED {Caps Plai ns 400 MG Fumara 08:02: RELEASE ule} Hospit al Extended te 00 AM Release EDT Oral Tablet Quetiapine Fumarate Amylases Amylas 01/19/ CAPSULE, 3 ORAL [place] 47500 UNT / e/Lipa 2020 DELAYED {Caps Pl ains Endopeptida se/Pro 08:02: RELEASE ule} H [place]spital [place] 80115 tease 00 AM UNT / EDT Lipase 6000 UNT Delayed Release Oral Capsule [Creon] Amylase/Lip ase/Proteas e 24 HR Quetia 07// TABLET, 1 ORAL complet Whit e quetiapine 2019 EXTENDED {Caps ed Plai ns 400 MG Fumara 08:02: RELEASE ule} Hospit al Extended te 00 AM Release EDT Oral Tablet Quetiapine Fumarate Amylases Amylas 07// CAPSULE, 3 ORAL [place] tru 45606 UNT / e/Lipa 2020 DELAYED {Caps Pl ains Endopeptida se/Pro 08:02: RELEASE ule} [place] 89111 tease 00 AM UNT / EDT Lipase 6000 UNT Delayed Release Oral Capsule [Creon] Amylase/Lip ase/Proteas e Amylases Amylas 01/19/ CAPSULE, 3 ORAL complet [facility] 80821 UNT / e/Lipa 2020 DELAYED {Caps ed Pl ains Endopeptida se/Pro 08:02: RELEASE ule} [place]ital [place] 88173 tease 00 AM UNT / EDT Lipase 6000 UNT Delayed Release Oral Capsule [Creon] Amylase/Lip ase/Proteas e Amylases Amylas 07// CAPSULE, 3 ORAL complet [place] 64825 UNT / e/Lipa 2020 DELAYED {Caps ed Pl ains Endopeptida se/Pro 08:02: RELEASE ule} [place]ital [place] 13307 tease 00 AM UNT / EDT Lipase 6000 UNT Delayed Release Oral Capsule [Creon] Amylase/Lip ase/Proteas e Furosemide Furose 01/19/ TABLET 80 mg ORAL active White 80 MG Oral mide 2020 [place] Tablet 08:02: Hospital 00 AM EDT 24 HR Quetia 07// TABLET, 1 ORAL complet Whit e quetiapine 2019 EXTENDED {Caps ed Plai ns 400 MG Fumara 08:02: RELEASE ule} Hospit al Extended te 00 AM Release EDT Oral Tablet Quetiapine Fumarate Amylases Amylas 07/ CAPSULE, 3 ORAL [place] tru 77030 UNT / e/Lipa 2020 DELAYED {Caps Pl ains Endopeptida se/Pro 08:02: RELEASE ule} [place]ital [place] 77708 tease 00 AM UNT / EDT Lipase 6000 UNT Delayed Release Oral Capsule [Creon] Amylase/Lip ase/Proteas e SEROquel XR SEROqu UNK active SEROqu el XR [facility] (Quetiap el XR 2020 mg (Quetiapine) r [facility] (Queti 01:07: 400 mg PO Health ap 04 AM Care EDT Corporatio n Medication administered onsite Carafate Carafate 11/23/2019 1 gm UNK active Shannon fate [place] (Sucralfate (Sucralfate 01:06:54 AM (Sucralfate) [facility] EDT Tablet Oral 1 Health Care gm PO Corporation Medication administered onsite Protronix Protronix 11/23/2019 40 UNK active P rotronix [place] (Pantopraz (Pantopraz 01:06:27 AM mg ( Pantoprazole) [facility] EDT Oral 40 mg PO [employer] Medication administered onsite Vistaril Vistaril 11/23/2019 50 UNK active Vis taril [place] (Hydroxyzin (Hydroxyzin 01:06:13 AM mg (Hydroxyzine) [facility] EDT Oral 50 mg PO BTC [place] Medication administered onsite FENTANYL FENTANYL 11/23/2019 50 mcg UNK active F ENTANYL [place] Inj 100 mcq Inj 100 mcq 12:07:09 AM Inj 100 [facility] EDT mcq/2mL 50 Care mcgIVP [employer] Medication administered onsite Lidocaine 1% Lidocaine 11/22/2019 0 MG UNK active Lidocaine [place] w/Epi 1 1% w/Epi 1 10:26:34 PM 1% w /Epi [facility] EDT 1:100,000; Care 20 mL [employer] bottle; Give to provider to admin Medication administered onsite pantoprazole 40 Pantoprazole 09/15/2019 40 mg ORAL active White MG Oral Granules Sodium 08:33:00 AM [place] [Protonix] [facility] Pantoprazole Sodium Sucralfate 1000 Sucralfate 09/15/2019 TABL 1 g ORAL completed White MG Oral Tablet 08:33:00 AM ET [place] [Carafate] [facility] pantoprazole 40 Pantoprazole 09/15/2019 40 mg ORAL active White MG Oral Granules Sodium 08:33:00 AM [place] [Protonix] [facility] Pantoprazole Sodium Sucralfate 1000 Sucralfate 09/15/2019 TABL 1 g ORAL completed White MG Oral Tablet 08:33:00 AM ET [place] [Carafate] [facility] pantoprazole 40 Pantoprazole 09/15/2019 40 mg ORAL active White MG Oral Granules Sodium 08:33:00 AM [place] [Protonix] [facility] Pantoprazole Sodium pantoprazole 40 Pantoprazole 09/15/2019 40 mg ORAL active White MG Oral Granules Sodium 08:33:00 AM [place] [Protonix] [facility] Pantoprazole Sodium pantoprazole 40 Pantoprazole 09/15/2019 40 mg ORAL active [place] MG Oral Granules Sodium 08:33:00 AM [place] [Protonix] [facility] Pantoprazole Sodium Sucralfate 1000 Sucralfate 09/15/2019 TABL 1 g ORAL active White MG Oral Tablet 08:33:00 AM ET [place] [Carafate] [facility] Sucralfate 1000 Sucralfate 09/15/2019 TABL 1 g ORAL completed [place] MG Oral Tablet 08:33:00 AM ET [place] [Carafate] [facility] Sucralfate 1000 Sucralfate 09/15/2019 TABL 1 g ORAL completed [place] MG Oral Tablet 08:33:00 AM ET [place] [Carafate] [facility] pantoprazole 40 Pantoprazole 09/15/2019 40 mg ORAL completed [place] MG Oral Granules Sodium 08:33:00 AM [place] [Protonix] [facility] Pantoprazole Sodium pantoprazole 40 Pantoprazole 09/15/2019 40 mg ORAL active [place] MG Oral Granules Sodium 08:33:00 AM [place] [Protonix] [facility] Pantoprazole Sodium pantoprazole 40 Pantoprazole 09/15/2019 40 mg ORAL completed [place] MG Oral Granules Sodium 08:33:00 AM [place] [Protonix] [facility] Pantoprazole Sodium Sucralfate 1000 Sucralfate 09/15/2019 TABL 1 g ORAL active [place] MG Oral Tablet 08:33:00 AM ET [place] [Carafate] [facility] Sucralfate 1000 Sucralfate 09/15/2019 TABL 1 g ORAL completed [facility] MG Oral Tablet 08:33:00 AM ET [place] [Carafate] [facility] Sucralfate 1000 Sucralfate 09/15/2019 TABL 1 g ORAL completed [place] MG Oral Tablet 08:33:00 AM ET [place] [Carafate] [facility] pantoprazole 40 Pantoprazole 09/15/2019 40 mg ORAL active [place] MG Oral Granules Sodium 08:33:00 AM [place] [Protonix] [facility] Pantoprazole Sodium Sucralfate 1000 Sucralfate 09/15/2019 TABL 1 g ORAL active [facility] MG Oral Tablet 08:33:00 AM ET [place] [Carafate] [facility] sevelamer Sevelamer 07/23/2019 TABL 1600 ORAL completed [place] carbonate 800 MG Carbonate 04:12:00 PM ET mg [place] Oral Tablet [facility] [[facility]] Sevelamer Carbonate sevelamer Sevelamer 07/23/2019 TABL 1600 ORAL completed [place] carbonate 800 MG Carbonate 04:12:00 PM ET mg [place] Oral Tablet [facility] [[facility]] Sevelamer Carbonate sevelamer Sevelamer 07/23/2019 TABL 1600 ORAL completed [place] carbonate 800 MG Carbonate 04:12:00 PM ET mg [place] Oral Tablet [facility] [[facility]] Sevelamer Carbonate sevelamer Sevelamer 07/23/2019 TABL 1600 ORAL completed [place] carbonate 800 MG Carbonate 04:12:00 PM ET mg [place] Oral Tablet [facility] [[facility]] Sevelamer Carbonate sevelamer Sevelamer 07/23/2019 TABL 1600 ORAL completed [place] carbonate 800 MG Carbonate 04:12:00 PM ET mg [place] Oral Tablet [facility] [[facility]] Sevelamer Carbonate sevelamer Sevelamer 07/23/2019 TABL 1600 ORAL completed [place] carbonate 800 MG Carbonate 04:12:00 PM ET mg [place] Oral Tablet [facility] [[facility]] Sevelamer Carbonate sevelamer Sevelamer 07/23/2019 TABL 1600 ORAL completed [place] carbonate 800 MG Carbonate 04:12:00 PM ET mg [place] Oral Tablet [facility] [[facility]] Sevelamer Carbonate sevelamer Sevelamer 07/23/2019 TABL 1600 ORAL completed [place] carbonate 800 MG Carbonate 04:12:00 PM ET mg [place] Oral Tablet [facility] [place]] Sevelamer Carbonate sevelamer Sevelamer 07/23/2019 TABL 1600 ORAL active White carbonate 800 MG Carbonate 04:12:00 PM ET mg [place] Oral Tablet [facility] [[facility] [place]] Sevelamer Carbonate sevelamer Sevelamer 07/23/2019 TABL 1600 ORAL completed White carbonate 800 MG Carbonate 04:12:00 PM ET mg [place] Oral Tablet [facility] [[facility] [place]] Sevelamer Carbonate sevelamer Sevelamer 07/23/2019 TABL 1600 ORAL completed [place] carbonate 800 MG Carbonate 04:12:00 PM ET mg [place] Oral Tablet [facility] [[facility] [place]] Sevelamer Carbonate sevelamer Sevelamer 07/23/2019 TABL 1600 ORAL active [place] carbonate 800 MG Carbonate 04:12:00 PM ET mg [place] Oral Tablet [facility] [[facility] [place]] Sevelamer Carbonate sevelamer Sevelamer 07/23/2019 TABL 1600 ORAL completed [place] carbonate 800 MG Carbonate 04:12:00 PM ET mg [place] Oral Tablet [facility] [[facility] [place]] Sevelamer Carbonate Loperamide Loperamide Hcl 07/23/2019 CAPS 2 mg ORAL completed [facility] Hydrochloride 2 03:58:00 PM ULE [place] MG Oral Capsule EST Hosp ital Loperamide Hcl Loperamide Loperamide Hcl 07/23/2019 CAPS 2 mg ORAL completed [place] Hydrochloride 2 03:58:00 PM ULE [place] MG Oral Capsule EST Hosp [facility] Loperamide Hcl Loperamide Loperamide Hcl 07/23/2019 CAPS 2 mg ORAL completed [place] Hydrochloride 2 03:58:00 PM ULE [place] MG Oral Capsule EST Hosp [facility] Loperamide Hcl Loperamide Loperamide Hcl 07/23/2019 CAPS 2 mg ORAL active [place] Hydrochloride 2 03:58:00 PM ULE [place] MG Oral Capsule EST [facility]osp [facility] Loperamide Hcl Loperamide Loperamide Hcl 07/23/2019 CAPS 2 mg ORAL completed [place] Hydrochloride 2 03:58:00 PM ULE [place] MG Oral Capsule EST Hosp [facility] Loperamide Hcl Loperamide Loperamide Hcl 07/23/2019 CAPS 2 mg ORAL active [place] Hydrochloride 2 03:58:00 PM ULE [place] MG Oral Capsule EST Hosp [facility] Loperamide Hcl Loperamide Loperamide Hcl 07/23/2019 CAPS 2 mg ORAL completed [place] Hydrochloride 2 03:58:00 PM ULE [place] MG Oral Capsule EST Hosp [facility] Loperamide Hcl Loperamide Loperamide Hcl 07/23/2019 CAPS 2 mg ORAL completed [place] Hydrochloride 2 03:58:00 PM ULE [place] MG Oral Capsule EST Hosp [facility] Loperamide Hcl Loperamide Loperamide Hcl 07/23/2019 CAPS 2 mg ORAL completed [place] Hydrochloride 2 03:58:00 PM ULE [place] MG Oral Capsule EST Hosp [facility] Loperamide Hcl Loperamide Loperamide Hcl 07/23/2019 CAPS 2 mg ORAL completed [place] Hydrochloride 2 03:58:00 PM ULE [place] MG Oral Capsule EST Hosp [facility] Loperamide Hcl Loperamide Loperamide Hcl 07/23/2019 CAPS 2 mg ORAL active [place] Hydrochloride 2 03:58:00 PM ULE [place] MG Oral Capsule EST Hosp [facility] Loperamide Hcl Loperamide Loperamide Hcl 07/23/2019 CAPS 2 mg ORAL completed [place] Hydrochloride 2 03:58:00 PM ULE [place] MG Oral Capsule EST [facility]osp [facility] Loperamide Hcl Loperamide Loperamide Hcl 07/23/2019 CAPS 2 mg ORAL completed [place] Hydrochloride 2 03:58:00 PM ULE [place] MG Oral Capsule EST [facility]osp [facility] Loperamide Hcl Amoxicillin 500 Amoxicillin/Clav 07/23/2019 TABL 500 mg ORAL comp leted [facility] / Clavulanate ulanate 08:56:00 AM ET [place] 125 MG Oral Potassium EST Hos pital Tablet Amoxicillin/Clav ulanate Potassium Amoxicillin 500 Amoxicillin/Clav 07/23/2019 TABL 500 mg ORAL comp leted [facility] MG / Clavulanate ulanate 08:56:00 AM ET [place] 125 MG Oral Potassium EST Hos pital Tablet Amoxicillin/Clav ulanate Potassium Amoxicillin 500 Amoxicillin/Clav 07/23/2019 TABL 500 mg ORAL acti ve [facility] MG / Clavulanate ulanate 08:56:00 AM ET [place] 125 MG Oral Potassium EST Hos pital Tablet Amoxicillin/Clav ulanate Potassium Amoxicillin 500 Amoxicillin/Clav 07/23/2019 TABL 500 mg ORAL comp leted [facility] MG / Clavulanate ulanate 08:56:00 AM ET [place] 125 MG Oral Potassium EST Hos pital Tablet Amoxicillin/Clav ulanate Potassium Amoxicillin 500 Amoxicillin/Clav 07/23/2019 TABL 500 mg ORAL comp leted [facility] MG / Clavulanate ulanate 08:56:00 AM ET [place] 125 MG Oral Potassium EST Hos [facility]ital Tablet Amoxicillin/Clav ulanate Potassium Amoxicillin 500 Amoxicillin/Clav 07/23/2019 TABL 500 mg ORAL comp leted [facility] MG / Clavulanate ulanate 08:56:00 AM ET [place] 125 MG Oral Potassium EST Hos [facility]ital Tablet Amoxicillin/Clav ulanate Potassium Amoxicillin 500 Amoxicillin/Clav 07/23/2019 TABL 500 mg ORAL comp leted [facility] MG / Clavulanate ulanate 08:56:00 AM ET [place] 125 MG Oral Potassium EST Hos [facility]ital Tablet Amoxicillin/Clav ulanate Potassium Amoxicillin 500 Amoxicillin/Clav 07/23/2019 TABL 500 mg ORAL comp leted [facility] / Clavulanate ulanate 08:56:00 AM ET [place] 125 MG Oral Potassium EST Hos [facility]ital Tablet Amoxicillin/Clav ulanate Potassium Amoxicillin 500 Amoxicillin/Clav 07/23/2019 TABL 500 mg ORAL comp leted [facility] / Clavulanate ulanate 08:56:00 AM ET [place] 125 MG Oral Potassium EST Hos [facility]ital Tablet Amoxicillin/Clav ulanate Potassium Amoxicillin 500 Amoxicillin/Clav 07/23/2019 TABL 500 mg ORAL acti ve [facility] / Clavulanate ulanate 08:56:00 AM ET [place] 125 MG Oral Potassium EST Hos [facility]ital Tablet Amoxicillin/Clav ulanate Potassium Amoxicillin 500 Amoxicillin/Clav 07/23/2019 TABL 500 mg ORAL comp leted [facility] / Clavulanate ulanate 08:56:00 AM ET [place] 125 MG Oral Potassium EST Hos [facility]ital Tablet Amoxicillin/Clav ulanate Potassium Amoxicillin 500 Amoxicillin/Clav 07/23/2019 TABL 500 mg ORAL comp leted [facility] MG / Clavulanate ulanate 08:56:00 AM ET [place] 125 MG Oral Potassium EST Hos pital Tablet Amoxicillin/Clav ulanate Potassium Amoxicillin 500 Amoxicillin/Clav 07/23/2019 TABL 500 mg ORAL comp leted [facility] / Clavulanate ulanate 08:56:00 AM ET [place] 125 MG Oral Potassium EST Hos pital Tablet Amoxicillin/Clav ulanate Potassium Lorazepam 1 MG Lorazepam 07/22/2019 TABL 1 mg ORAL active [place] Oral Tablet 07:29:00 PM ET P [facility] Lorazepam 1 MG Lorazepam 07/22/2019 TABL 1 mg ORAL completed [place] Oral Tablet 07:29:00 PM ET P [facility] 12 HR Guaifenesin 07/22/2019 TABL 600 mg ORAL active [facility] Guaifenesin 600 07:29:00 PM ET, [place] MG Extended EST EXTE Hospital Release Oral NDED Tablet RELE ASE Lorazepam 1 MG Lorazepam 07/22/2019 TABL 1 mg ORAL completed [place] Oral Tablet 07:29:00 PM ET P [facility] Methocarbamol Methocarbamol 07/22/2019 TABL 500 mg ORAL completed [place] 500 MG Oral 07:29:00 PM ET P [facility] Methocarbamol Methocarbamol 07/22/2019 TABL 500 mg ORAL completed [place] 500 MG Oral 07:29:00 PM ET P [facility] Tablet [facility] Methocarbamol Methocarbamol 07/22/2019 TABL 500 mg ORAL completed [place] 500 MG Oral 07:29:00 PM ET P [facility] Tablet [facility] Lorazepam 1 MG Lorazepam 07/22/2019 TABL 1 mg ORAL completed [place] Oral Tablet 07:29:00 PM ET P [facility] 12 HR Guaifenesin 07/22/2019 TABL 600 mg ORAL completed [facility] Guaifenesin 600 07:29:00 PM ET, [place] MG Extended EST EXTE Hospital Release Oral NDED Tablet [facility] Methocarbamol Methocarbamol 07/22/2019 TABL 500 mg ORAL completed [place] 500 MG Oral 07:29:00 PM ET P [facility] Tablet [facility] 12 HR Guaifenesin 07/22/2019 TABL 600 mg ORAL completed [place] Guaifenesin 600 07:29:00 PM ET, [place] MG Extended EST EXTE Hospital Release Oral NDED Tablet RE[facility] 12 HR Guaifenesin 07/22/2019 TABL 600 mg ORAL active [facility] Guaifenesin 600 07:29:00 PM ET, [place] MG Extended EST EXTE Hospital Release Oral NDED Tablet RELE ASE Lorazepam 1 MG Lorazepam 07/22/2019 TABL 1 mg ORAL completed [place] Oral Tablet 07:29:00 PM ET P [facility] 12 HR Guaifenesin 07/22/2019 TABL 600 mg ORAL completed [place] Guaifenesin 600 07:29:00 PM ET, [place] MG Extended EST EXTE Hospital Release Oral NDED Tablet RELE ASE Lorazepam 1 MG Lorazepam 07/22/2019 TABL 1 mg ORAL completed [place] Oral Tablet 07:29:00 PM ET P [facility] Methocarbamol Methocarbamol 07/22/2019 TABL 500 mg ORAL completed [place] 500 MG Oral 07:29:00 PM ET P [facility] Tablet [facility] Lorazepam 1 MG Lorazepam 07/22/2019 TABL 1 mg ORAL active [place] Oral Tablet 07:29:00 PM ET P [facility] 12 HR Guaifenesin 07/22/2019 TABL 600 mg ORAL completed [place] Guaifenesin 600 07:29:00 PM ET, [place] MG Extended EST EXTE Hospital Release Oral NDED Tablet [facility] Methocarbamol Methocarbamol 07/22/2019 TABL 500 mg ORAL active [place] 500 MG Oral 07:29:00 PM ET P [facility] Tablet [facility] Lorazepam 1 MG Lorazepam 07/22/2019 TABL 1 mg ORAL completed [place] Oral Tablet 07:29:00 PM ET P lains [facility] 12 HR Guaifenesin 07/22/2019 TABL 600 mg ORAL completed [place] Guaifenesin 600 07:29:00 PM ET, [place] MG Extended EST EXTE Hospital Release Oral NDED Tablet RE[facility] Methocarbamol Methocarbamol 07/22/2019 TABL 500 mg ORAL completed [place] 500 MG Oral 07:29:00 PM ET P [facility] Tablet [facility] 12 HR Guaifenesin 07/22/2019 TABL 600 mg ORAL completed [place] Guaifenesin 600 07:29:00 PM ET, [place] MG Extended EST EXTE Hospital Release Oral NDED Tablet RELE ASE Lorazepam 1 MG Lorazepam 07/22/2019 TABL 1 mg ORAL active [place] Oral Tablet 07:29:00 PM ET P [facility] Methocarbamol Methocarbamol 07/22/2019 TABL 500 mg ORAL active [place] 500 MG Oral 07:29:00 PM ET P [facility] Tablet [facility] 12 HR Guaifenesin 07/22/2019 TABL 600 mg ORAL completed [place] Guaifenesin 600 07:29:00 PM ET, [place] MG Extended EST EXTE Hospital Release Oral NDED Tablet [facility] Methocarbamol Methocarbamol 07/22/2019 TABL 500 mg ORAL completed [place] 500 MG Oral 07:29:00 PM [facility] Tablet [facility] Lorazepam 1 MG Lorazepam 07/22/2019 TABL 1 mg ORAL completed [place] Oral Tablet 07:29:00 PM ET [facility] Methocarbamol Methocarbamol 07/22/2019 TABL 500 mg ORAL completed [place] 500 MG Oral 07:29:00 PM ET P [facility] Tablet [facility] Lorazepam 1 MG Lorazepam 07/22/2019 TABL 1 mg ORAL completed [place] Oral Tablet 07:29:00 PM [facility] Methocarbamol Methocarbamol 07/22/2019 TABL 500 mg ORAL completed [place] 500 MG Oral 07:29:00 PM ET P [facility] Tablet [facility] Lorazepam 1 MG Lorazepam 07/22/2019 TABL 1 mg ORAL completed [place] Oral Tablet 07:29:00 PM ET P [facility] Lorazepam 1 MG Lorazepam 07/22/2019 TABL 1 mg ORAL completed [place] Oral Tablet 07:29:00 PM ET P [facility] EST [facility] 12 HR Guaifenesin 07/22/2019 TABL 600 mg ORAL completed [place] Guaifenesin 600 07:29:00 PM ET, [place] MG Extended EST EXTE Hospital Release Oral NDED Tablet [facility] 12 HR Guaifenesin 07/22/2019 TABL 600 mg ORAL completed [place] Guaifenesin 600 07:29:00 PM ET, [place] MG Extended EST EXTE Hospital Release Oral NDED Tablet [facility] Methocarbamol Methocarbamol 07/22/2019 TABL 500 mg ORAL completed [place] 500 MG Oral 07:29:00 PM ET P [facility] Tablet EST Hospital 12 HR Guaifenesin 07/22/2019 TABL 600 mg ORAL completed [place] Guaifenesin 600 07:29:00 PM ET, [place] MG Extended EST EXTE Hospital Release Oral NDED Tablet RE[facility] A[facility] 12 HR Guaifenesin 07/22/2019 TABL 600 mg ORAL completed [place] Guaifenesin 600 07:29:00 PM ET, [place] MG Extended EST EXTE Hospital Release Oral NDED Tablet [facility] Methocarbamol Methocarbamol 07/22/2019 TABL 500 mg ORAL completed [place] 500 MG Oral 07:29:00 PM ET P [facility] Tablet EST Hospital Lidocaine Lidocaine 07/22/2019 [facility] 2 TOPICAL completed [place] Hydrochloride 07:28:00 PM H {Patch [place] 0.05 MG/MG EST } Hospital Transdermal Patch [Lidoderm] Lidocaine Lidocaine 07/22/2019 [facility] 2 TOPICAL active [place] Hydrochloride 07:28:00 PM H {Patch [place] 0.05 MG/MG EST } Hospital Transdermal Patch [Lidoderm] Lidocaine Lidocaine 07/22/2019 [facility] 2 TOPICAL completed [place] Hydrochloride 07:28:00 PM H {Patch [place] 0.05 MG/MG EST } Hospital Transdermal Patch [Lidoderm] Lidocaine Lidocaine 07/22/2019 [facility] 2 TOPICAL completed [place] Hydrochloride 07:28:00 PM H {Patch [place] 0.05 MG/MG EST } Hospital Transdermal Patch [Lidoderm] Lidocaine Lidocaine 07/22/2019 [facility] 2 TOPICAL completed [place] Hydrochloride 07:28:00 PM H {Patch [place] 0.05 MG/MG EST } Hospital Transdermal Patch [Lidoderm] Lidocaine Lidocaine 07/22/2019 [facility] 2 TOPICAL completed [place] Hydrochloride 07:28:00 PM H {Patch [place] 0.05 MG/MG EST } [facility] Transdermal Patch [Lidoderm] Lidocaine Lidocaine 07/22/2019 [facility] 2 TOPICAL completed [place] Hydrochloride 07:28:00 PM H {Patch [place] 0.05 MG/MG EST } [facility] Transdermal Patch [Lidoderm] Lidocaine Lidocaine 07/22/2019 [facility] 2 TOPICAL completed [place] Hydrochloride 07:28:00 PM H {Patch [place] 0.05 MG/MG EST } [facility] Transdermal Patch [Lidoderm] Lidocaine Lidocaine 07/22/2019 [facility] 2 TOPICAL completed [place] Hydrochloride 07:28:00 PM H {Patch [place] 0.05 MG/MG EST } [facility] Transdermal Patch [Lidoderm] Lidocaine Lidocaine 07/22/2019 [facility] 2 TOPICAL completed [place] Hydrochloride 07:28:00 PM H {Patch [place] 0.05 MG/MG EST } [facility] Transdermal Patch [Lidoderm] Lidocaine Lidocaine 07/22/2019 [facility] 2 TOPICAL completed [place] Hydrochloride 07:28:00 PM H {Patch [place] 0.05 MG/MG EST } [facility] Transdermal Patch [Lidoderm] Lidocaine Lidocaine 07/22/2019 [facility] 2 TOPICAL active [place] Hydrochloride 07:28:00 PM H {Patch [place] 0.05 MG/MG EST } [facility] Transdermal Patch [Lidoderm] Lidocaine Lidocaine 07/22/2019 [facility] 2 TOPICAL completed [place] Hydrochloride 07:28:00 PM H {Patch [place] 0.05 MG/MG EST } [facility] Transdermal Patch [Lidoderm] Aspirin 81 MG Aspirin 06/08/2019 TABL 81 mg ORAL completed [facility] Delayed Release 12:40:00 PM [facility] Oral Tablet EST [facility] [Aspir-Low] ABLE Aspirin 81 MG Aspirin 06/08/2019 TABL 81 mg ORAL completed [place] Delayed Release 12:40:00 PM [facility] Oral Tablet EST CHEW [facility] [Aspir-Low] ABLE Aspirin 81 MG Aspirin 06/08/2019 TABL 81 mg ORAL active [place] Delayed Release 12:40:00 PM [facility] Oral Tablet EST CHEW [facility] [Aspir-Low] ABLE Aspirin 81 MG Aspirin 06/08/2019 TABL 81 mg ORAL completed [place] Delayed Release 12:40:00 PM [facility] Oral Tablet EST CHEW [facility] [Aspir-Low] ABLE Aspirin 81 MG Aspirin 06/08/2019 TABL 81 mg ORAL active [place] Delayed Release 12:40:00 PM [facility] Oral Tablet EST [facility] [Aspir-Low] ABLE Aspirin 81 MG Aspirin 06/08/2019 TABL 81 mg ORAL completed [place] Delayed Release 12:40:00 PM ET, [place] Oral Tablet EST [facility] [Aspir-Low] ABLE Aspirin 81 MG Aspirin 06/08/2019 TABL 81 mg ORAL completed [place] Delayed Release 12:40:00 PM ET, [place] Oral Tablet EST [facility] [Aspir-Low] ABLE Aspirin 81 MG Aspirin 06/08/2019 TABL 81 mg ORAL completed [facility] Delayed Release 12:40:00 PM ET, [place] Oral Tablet EST [facility] [Aspir-Low] ABLE Aspirin 81 MG Aspirin 06/08/2019 TABL 81 mg ORAL completed [facility] Delayed Release 12:40:00 PM ET, [place] Oral Tablet EST [facility] [Aspir-Low] ABLE Aspirin 81 MG Aspirin 06/08/2019 TABL 81 mg ORAL completed [place] Delayed Release 12:40:00 PM ET, [place] Oral Tablet EST [facility] [Aspir-Low] ABLE Aspirin 81 MG Aspirin 06/08/2019 TABL 81 mg ORAL completed [facility] Delayed Release 12:40:00 PM ET, [place] Oral Tablet EST [facility] [Aspir-Low] ABLE Aspirin 81 MG Aspirin 06/08/2019 TABL 81 mg ORAL completed [place] Delayed Release 12:40:00 PM ET, [place] Oral Tablet EST [facility] [Aspir-Low] ABLE Aspirin 81 MG Aspirin 06/08/2019 TABL 81 mg ORAL completed [place] Delayed Release 12:40:00 PM ET, [place] Oral Tablet EST [facility] [Aspir-Low] ABLE Aspirin 81 MG Aspirin 06/08/2019 TABL 81 mg ORAL completed [place] Delayed Release 12:40:00 PM ET, [place] Oral Tablet EST [facility] [Aspir-Low] ABLE Aspirin 81 MG Aspirin 06/08/2019 TABL 81 mg ORAL completed [place] Delayed Release 12:40:00 PM ET, [place] Oral Tablet EST [facility] [Aspir-Low] ABLE Aspirin 81 MG Aspirin 06/08/2019 TABL 81 mg ORAL active [place] Delayed Release 12:40:00 PM ET, [place] Oral Tablet EST [facility] [Aspir-Low] ABLE Meclizine Hcl 05/24/2019 TABL 25 mg ORAL completed [facility] 01:24:00 PM ET [facility] Meclizine Hcl 05/24/2019 TABL 25 mg ORAL completed [place] 01:24:00 PM ET [facility] Meclizine Hcl 05/24/2019 TABL 25 mg ORAL active [facility] 01:24:00 PM ET [facility] Meclizine Hcl 05/24/2019 TABL 25 mg ORAL completed [place] 01:24:00 PM ET [facility] Meclizine Hcl 05/24/2019 TABL 25 mg ORAL active [place] 01:24:00 PM ET [facility] Meclizine Hcl 05/24/2019 TABL 25 mg ORAL completed [place] 01:24:00 PM ET [facility] Meclizine Hcl 05/24/2019 TABL 25 mg ORAL active [place] 01:24:00 PM ET [facility] Meclizine Hcl 05/24/2019 TABL 25 mg ORAL active [place] 01:24:00 PM ET [facility] Meclizine Hcl 05/24/2019 TABL 25 mg ORAL completed [place] 01:24:00 PM ET [facility] Meclizine Hcl 05/24/2019 TABL 25 mg ORAL completed [place] 01:24:00 PM ET [facility] Meclizine Hcl 05/24/2019 TABL 25 mg ORAL active [place] 01:24:00 PM ET [facility] Meclizine Hcl 05/24/2019 TABL 25 mg ORAL completed [place] 01:24:00 PM ET [facility] Meclizine Hcl 05/24/2019 TABL 25 mg ORAL completed [place] 01:24:00 PM ET [facility] Meclizine Hcl 05/24/2019 TABL 25 mg ORAL completed [place] 01:24:00 PM ET [facility] Meclizine Hcl 05/24/2019 TABL 25 mg ORAL completed [place] 01:24:00 PM ET [facility] Meclizine Hcl 05/24/2019 TABL 25 mg ORAL completed [place] 01:24:00 PM ET [facility] Meclizine Hcl 05/24/2019 TABL 25 mg ORAL completed [place] 01:24:00 PM ET [facility] Lorazepam 0.5 MG Lorazepam 05/24/2019 TABL 0.5 mg ORAL completed [place] Oral Tablet 01:21:00 PM ET [facility] Lorazepam 0.5 MG Lorazepam 05/24/2019 TABL 0.5 mg ORAL completed [place] Oral Tablet 01:21:00 PM ET [facility] Lorazepam 0.5 MG Lorazepam 05/24/2019 TABL 0.5 mg ORAL completed [place] Oral Tablet 01:21:00 PM ET [facility] Lorazepam 0.5 MG Lorazepam 05/24/2019 TABL 0.5 mg ORAL completed [place] Oral Tablet 01:21:00 PM ET [facility] Lorazepam 0.5 MG Lorazepam 05/24/2019 TABL 0.5 mg ORAL completed [place] Oral Tablet 01:21:00 PM ET [facility] Lorazepam 0.5 MG Lorazepam 05/24/2019 TABL 0.5 mg ORAL completed [place] Oral Tablet 01:21:00 PM ET [facility] Lorazepam 0.5 MG Lorazepam 05/24/2019 TABL 0.5 mg ORAL active [place] Oral Tablet 01:21:00 PM ET [facility] Lorazepam 0.5 MG Lorazepam 05/24/2019 TABL 0.5 mg ORAL completed [place] Oral Tablet 01:21:00 PM ET [facility] Lorazepam 0.5 MG Lorazepam 05/24/2019 TABL 0.5 mg ORAL completed [place] Oral Tablet 01:21:00 PM ET [facility] Lorazepam 0.5 MG Lorazepam 05/24/2019 TABL 0.5 mg ORAL completed [place] Oral Tablet 01:21:00 PM ET [facility] Lorazepam 0.5 MG Lorazepam 05/24/2019 TABL 0.5 mg ORAL completed [place] Oral Tablet 01:21:00 PM ET [facility] Lorazepam 0.5 MG Lorazepam 05/24/2019 TABL 0.5 mg ORAL completed [place] Oral Tablet 01:21:00 PM ET [facility] Lorazepam 0.5 MG Lorazepam 05/24/2019 TABL 0.5 mg ORAL completed [place] Oral Tablet 01:21:00 PM ET [facility] Lorazepam 0.5 MG Lorazepam 05/24/2019 TABL 0.5 mg ORAL completed [place] Oral Tablet 01:21:00 PM ET [facility] Lorazepam 0.5 MG Lorazepam 05/24/2019 TABL 0.5 mg ORAL completed [place] Oral Tablet 01:21:00 PM ET [facility] Lorazepam 0.5 MG Lorazepam 05/24/2019 TABL 0.5 mg ORAL completed [place] Oral Tablet 01:21:00 PM ET [facility] Lorazepam 0.5 MG Lorazepam 05/24/2019 TABL 0.5 mg ORAL completed [place] Oral Tablet 01:21:00 PM ET P [facility] Meclizine Meclizine Hcl 05/19/2019 TABL 25 mg ORAL completed [place] Hydrochloride 25 08:02:00 PM ET [place] [facility] Oral Tablet [facility] Meclizine Hcl Meclizine Meclizine Hcl 05/19/2019 TABL 25 mg ORAL completed [place] Hydrochloride 25 08:02:00 PM ET [place] [facility] Oral Tablet [facility] Meclizine Hcl Meclizine Meclizine Hcl 05/19/2019 TABL 25 mg ORAL completed [place] Hydrochloride 25 08:02:00 PM ET [place] [facility] Oral Tablet [facility] Meclizine Hcl Meclizine Meclizine Hcl 05/19/2019 TABL 25 mg ORAL completed [place] Hydrochloride 25 08:02:00 PM ET [place] MG Oral Tablet [facility] Meclizine Hcl Meclizine Meclizine Hcl 05/19/2019 TABL 25 mg ORAL completed [place] Hydrochloride 25 08:02:00 PM ET [place] MG Oral Tablet [facility] Meclizine Hcl Meclizine Meclizine Hcl 05/19/2019 TABL 25 mg ORAL completed [place] Hydrochloride 25 08:02:00 PM ET [place] MG Oral Tablet [facility] Meclizine Hcl Meclizine Meclizine Hcl 05/19/2019 TABL 25 mg ORAL completed [place] Hydrochloride 25 08:02:00 PM ET [place] MG Oral Tablet [facility] Meclizine Hcl Meclizine Meclizine Hcl 05/19/2019 TABL 25 mg ORAL completed [place] Hydrochloride 25 08:02:00 PM ET [place] MG Oral Tablet [facility] Meclizine Hcl Meclizine Meclizine Hcl 05/19/2019 TABL 25 mg ORAL completed [place] Hydrochloride 25 08:02:00 PM ET [place] MG Oral Tablet [facility] Meclizine Hcl Meclizine Meclizine Hcl 05/19/2019 TABL 25 mg ORAL completed [place] Hydrochloride 25 08:02:00 PM ET [place] MG Oral Tablet [facility] Meclizine Hcl Meclizine Meclizine Hcl 05/19/2019 TABL 25 mg ORAL completed [place] Hydrochloride 25 08:02:00 PM ET [place] MG Oral Tablet [facility] Meclizine Hcl Meclizine Meclizine Hcl 05/19/2019 TABL 25 mg ORAL completed [facility] Hydrochloride 25 08:02:00 PM ET [place] MG Oral Tablet [facility] Meclizine Hcl Meclizine Meclizine Hcl 05/19/2019 TABL 25 mg ORAL completed [place] Hydrochloride 25 08:02:00 PM ET [place] [facility] Oral Tablet [facility] Meclizine Hcl Meclizine Meclizine Hcl 05/19/2019 TABL 25 mg ORAL completed [facility] Hydrochloride 25 08:02:00 PM ET [place] [facility] Oral Tablet [facility] Meclizine Hcl Meclizine Meclizine Hcl 05/19/2019 TABL 25 mg ORAL completed [facility] Hydrochloride 25 08:02:00 PM ET [place] [facility] Oral Tablet [facility] Meclizine Hcl Meclizine Meclizine Hcl 05/19/2019 TABL 25 mg ORAL completed [facility] Hydrochloride 25 08:02:00 PM ET [place] [facility] Oral Tablet [facility] Meclizine Hcl Meclizine Meclizine Hcl 05/19/2019 TABL 25 mg ORAL completed [place] Hydrochloride 25 08:02:00 PM ET [place] [facility] Oral Tablet [facility] Meclizine Hcl Meclizine Meclizine Hcl 05/19/2019 TABL 25 mg ORAL completed [facility] Hydrochloride 25 08:02:00 PM ET [place] [facility] Oral Tablet [facility] Hcl Lorazepam 0.5 MG Lorazepam 03/10/2019 TABL 0.5 mg ORAL completed [facility] Oral Tablet 02:50:00 PM ET [facility] Lorazepam 0.5 MG Lorazepam 03/10/2019 TABL 0.5 mg ORAL completed [facility] Oral Tablet 02:50:00 PM ET [facility] Lorazepam 0.5 MG Lorazepam 03/10/2019 TABL 0.5 mg ORAL completed [facility] Oral Tablet 02:50:00 PM ET [facility] Lorazepam 0.5 MG Lorazepam 03/10/2019 TABL 0.5 mg ORAL completed [facility] Oral Tablet 02:50:00 PM ET [facility] Lorazepam 0.5 MG Lorazepam 03/10/2019 TABL 0.5 mg ORAL completed [facility] Oral Tablet 02:50:00 PM ET [facility] Lorazepam 0.5 MG Lorazepam 03/10/2019 TABL 0.5 mg ORAL completed [facility] Oral Tablet 02:50:00 PM ET [facility] Lorazepam 0.5 MG Lorazepam 03/10/2019 TABL 0.5 mg ORAL completed [facility] Oral Tablet 02:50:00 PM ET [facility] Lorazepam 0.5 MG Lorazepam 03/10/2019 TABL 0.5 mg ORAL completed [facility] Oral Tablet 02:50:00 PM ET [facility] Lorazepam 0.5 MG Lorazepam 03/10/2019 TABL 0.5 mg ORAL completed [facility] Oral Tablet 02:50:00 PM ET [facility] Lorazepam 0.5 MG Lorazepam 03/10/2019 TABL 0.5 mg ORAL completed [facility] Oral Tablet 02:50:00 PM ET [facility] Lorazepam 0.5 MG Lorazepam 03/10/2019 TABL 0.5 mg ORAL completed [facility] Oral Tablet 02:50:00 PM ET [facility] Lorazepam 0.5 MG Lorazepam 03/10/2019 TABL 0.5 mg ORAL completed [facility] Oral Tablet 02:50:00 PM ET [facility] Lorazepam 0.5 MG Lorazepam 03/10/2019 TABL 0.5 mg ORAL completed [place] Oral Tablet 02:50:00 PM ET [facility] Lorazepam 0.5 MG Lorazepam 03/10/2019 TABL 0.5 mg ORAL completed [facility] Oral Tablet 02:50:00 PM ET [facility] Lorazepam 0.5 MG Lorazepam 03/10/2019 TABL 0.5 mg ORAL completed [facility] Oral Tablet 02:50:00 PM ET [facility] Lorazepam 0.5 MG Lorazepam 03/10/2019 TABL 0.5 mg ORAL completed [place] Oral Tablet 02:50:00 PM ET [facility] Lorazepam 0.5 MG Lorazepam 03/10/2019 TABL 0.5 mg ORAL completed [facility] Oral Tablet 02:50:00 PM ET [facility] Lorazepam 0.5 MG Lorazepam 03/10/2019 TABL 0.5 mg ORAL completed [facility] Oral Tablet 02:50:00 PM ET [facility] Lorazepam 0.5 MG Lorazepam 03/10/2019 TABL 0.5 mg ORAL completed [facility] Oral Tablet 02:50:00 PM ET [facility] Lorazepam 0.5 MG Lorazepam 03/10/2019 TABL 0.5 mg ORAL completed [facility] Oral Tablet 02:50:00 PM ET [facility] Lorazepam 0.5 MG Lorazepam 03/10/2019 TABL 0.5 mg ORAL completed [facility] Oral Tablet 02:50:00 PM ET [facility] Bacitracin Zinc 03/10/2019 OINT 1 TOPICAL completed [facility] Oint. .35GM 09:37:00 AM [facility] Bacitracin Zinc 03/10/2019 OINT 1 TOPICAL completed [facility] Oint. 35GM 09:37:00 AM MENT {[facility] catnm} [facility] Bacitracin Zinc 03/10/2019 OINT 1 TOPICAL completed [facility] Oint. 35GM 09:37:00 AM MENT {[facility] catnm} [facility] Bacitracin Zinc 03/10/2019 OINT 1 TOPICAL completed [facility] Oint. .35GM 09:37:00 AM [facility] Bacitracin Zinc 03/10/2019 OINT 1 TOPICAL completed [facility] Oint. 35GM 09:37:00 AM MENT {[facility] catnm} [facility] Bacitracin Zinc 03/10/2019 OINT 1 TOPICAL completed [facility] Oint. 35GM 09:37:00 AM MENT {[facility] catnm} [facility] Bacitracin Zinc 03/10/2019 OINT 1 TOPICAL completed [facility] Oint. .35GM 09:37:00 AM [facility] Bacitracin Zinc 03/10/2019 OINT 1 TOPICAL completed [facility] Oint. 35GM 09:37:00 AM [facility] Bacitracin Zinc 03/10/2019 OINT 1 TOPICAL completed [facility] Oint. 35GM 09:37:00 AM [facility]ENT [facility] Bacitracin Zinc 03/10/2019 OINT 1 TOPICAL completed [facility] Oint. 35GM 09:37:00 AM [facility] Bacitracin Zinc 03/10/2019 OINT 1 TOPICAL completed [facility] Oint. 35GM 09:37:00 AM MENT {[facility] EDT cator} [facility] Bacitracin Zinc 03/10/2019 OINT 1 TOPICAL completed [facility] Oint. 35GM 09:37:00 AM [facility] Bacitracin Zinc 03/10/2019 OINT 1 TOPICAL completed [facility] Oint. 35GM 09:37:00 AM MENT {[facility] EDT cator} [facility] Bacitracin Zinc 03/10/2019 OINT 1 TOPICAL completed [facility] Oint. 35GM 09:37:00 AM [facility] Bacitracin Zinc 03/10/2019 OINT 1 TOPICAL completed [facility] Oint. 35GM 09:37:00 AM [facility] Bacitracin Zinc 03/10/2019 OINT 1 TOPICAL completed [facility] Oint. GM 09:37:00 AM [facility]ENT [facility] Bacitracin Zinc 03/10/2019 OINT 1 TOPICAL completed [facility] Oint. 35GM 09:37:00 AM [facility] Bacitracin Zinc 03/10/2019 OINT 1 TOPICAL completed [facility] Oint. 35GM 09:37:00 AM [facility]ENT [facility] Bacitracin Zinc 03/10/2019 OINT 1 TOPICAL completed [facility] Oint. 35GM 09:37:00 AM [facility] Bacitracin Zinc 03/10/2019 OINT 1 TOPICAL completed [facility] Oint. 35GM 09:37:00 AM MENT {[facility] EDT cator} [facility] Bacitracin Zinc 03/10/2019 OINT 1 TOPICAL completed [facility] Oint. GM 09:37:00 AM [facility]ENT [facility] Albuterol 1 Albuterol 03/03/2019 SOLU 5 mg RESPIRAT completed [facility] MG/ML Inhalant Sulfate Neb Soln 10:53:00 AM TION ORY [place] Solution 0.5% 20ML* EDT (INHALAT H ospital Albuterol ION) Sulfate Neb Soln 0.5% 20ML* Albuterol 1 Albuterol 03/03/2019 SOLU 5 mg RESPIRAT completed [place] MG/ML Inhalant Sulfate Neb Soln 10:53:00 AM TION ORY [place] Solution 0.5% 20ML* EDT (INHALAT H ospital Albuterol ION) Sulfate Neb Soln 0.5% 20ML* Albuterol 1 Albuterol 03/03/2019 SOLU 5 mg RESPIRAT completed [place] MG/ML Inhalant Sulfate Neb Soln 10:53:00 AM TION ORY [place] Solution 0.5% 20ML* EDT (INHALAT H ospital Albuterol ION) Sulfate Neb Soln 0.5% 20ML* Albuterol 1 Albuterol 03/03/2019 SOLU 5 mg RESPIRAT completed [place] MG/ML Inhalant Sulfate Neb Soln 10:53:00 AM TION ORY [place] Solution 0.5% 20ML* EDT (INHALAT H ospital Albuterol ION) Sulfate Neb Soln 0.5% 20ML* Albuterol 1 Albuterol 03/03/2019 SOLU 5 mg RESPIRAT completed [place] MG/ML Inhalant Sulfate Neb Soln 10:53:00 AM TION ORY [place] Solution 0.5% 20ML* EDT (INHALAT H ospital Albuterol ION) Sulfate Neb Soln 0.5% 20ML* Albuterol 1 Albuterol 03/03/2019 SOLU 5 mg RESPIRAT completed [place] MG/ML Inhalant Sulfate Neb Soln 10:53:00 AM TION ORY [place] Solution 0.5% 20ML* EDT (INHALAT H ospital Albuterol ION) Sulfate Neb Soln 0.5% 20ML* Albuterol 1 Albuterol 03/03/2019 SOLU 5 mg RESPIRAT completed [place] MG/ML Inhalant Sulfate Neb Soln 10:53:00 AM TION ORY [place] Solution 0.5% 20ML* EDT (INHALAT H ospital Albuterol ION) Sulfate Neb Soln 0.5% 20ML* Albuterol 1 Albuterol 03/03/2019 SOLU 5 mg RESPIRAT completed [place] MG/ML Inhalant Sulfate Neb Soln 10:53:00 AM TION ORY [place] Solution 0.5% 20ML* EDT (INHALAT H ospital Albuterol ION) Sulfate Neb Soln 0.5% 20ML* Albuterol 1 Albuterol 03/03/2019 SOLU 5 mg RESPIRAT completed [place] MG/ML Inhalant Sulfate Neb Soln 10:53:00 AM TION ORY [place] Solution 0.5% 20ML* EDT (INHALAT H ospital Albuterol ION) Sulfate Neb Soln 0.5% 20ML* quetiapine 100 Quetiapine 01/06/2019 TABL 100 mg ORAL completed [facility] MG Oral Tablet Fumarate 03:41:00 PM ET [place] [Seroquel] [facility] Quetiapine Fumarate quetiapine 100 Quetiapine 01/06/2019 TABL 100 mg ORAL completed [facility] MG Oral Tablet Fumarate 03:41:00 PM ET [place] [Seroquel] EDT Hospital Quetiapine Fumarate quetiapine 100 Quetiapine 01/06/2019 TABL 100 mg ORAL completed [facility] MG Oral Tablet Fumarate 03:41:00 PM ET [place] [Seroquel] EDT Hospital Quetiapine Fumarate quetiapine 100 Quetiapine 01/06/2019 TABL 100 mg ORAL completed [facility] MG Oral Tablet Fumarate 03:41:00 PM ET [place] [Seroquel] [facility] Quetiapine Fumarate quetiapine 100 Quetiapine 01/06/2019 TABL 100 mg ORAL completed [facility] MG Oral Tablet Fumarate 03:41:00 PM ET [place] [Seroquel] ED[facility] Quetiapine Fumarate quetiapine 100 Quetiapine 01/06/2019 TABL 100 mg ORAL completed [facility] MG Oral Tablet Fumarate 03:41:00 PM ET [place] [Seroquel] ED[facility] Hospital Quetiapine Fumarate quetiapine 100 Quetiapine 01/06/2019 TABL 100 mg ORAL completed [facility] MG Oral Tablet Fumarate 03:41:00 PM ET [place] [Seroquel] ED[facility] Hospital Quetiapine Fumarate quetiapine 100 Quetiapine 01/06/2019 TABL 100 mg ORAL completed [facility] MG Oral Tablet Fumarate 03:41:00 PM ET [place] [Seroquel] EDT Hospital Quetiapine Fumarate quetiapine 100 Quetiapine 01/06/2019 TABL 100 mg ORAL completed [facility] MG Oral Tablet Fumarate 03:41:00 PM ET [place] [Seroquel] EDT Hospital Quetiapine Fumarate quetiapine 100 Quetiapine 01/06/2019 TABL 100 mg ORAL completed [facility] MG Oral Tablet Fumarate 03:41:00 PM ET [place] [[facility] Quetiapine Fumarate quetiapine 100 Quetiapine 01/06/2019 TABL 100 mg ORAL completed [facility] MG Oral Tablet Fumarate 03:41:00 PM ET [place] [[facility]] [facility] Quetiapine Fumarate Lorazepam 0.5 MG Lorazepam 01/06/2019 TABL 0.5 mg ORAL completed [facility] Oral Tablet 03:14:00 PM ET [facility] Lorazepam 0.5 MG Lorazepam 01/06/2019 TABL 0.5 mg ORAL completed [facility] Oral Tablet 03:14:00 PM ET [facility] Lorazepam 0.5 MG Lorazepam 01/06/2019 TABL 0.5 mg ORAL completed [facility] Oral Tablet 03:14:00 PM ET [facility] Lorazepam 0.5 MG Lorazepam 01/06/2019 TABL 0.5 mg ORAL completed [facility] Oral Tablet 03:14:00 PM ET [facility] Lorazepam 0.5 MG Lorazepam 01/06/2019 TABL 0.5 mg ORAL completed [facility] Oral Tablet 03:14:00 PM ET [facility] Lorazepam 0.5 MG Lorazepam 01/06/2019 TABL 0.5 mg ORAL completed [facility] Oral Tablet 03:14:00 PM ET [facility] Lorazepam 0.5 MG Lorazepam 01/06/2019 TABL 0.5 mg ORAL completed [place] Oral Tablet 03:14:00 PM ET [facility] Lorazepam 0.5 MG Lorazepam 01/06/2019 TABL 0.5 mg ORAL completed [place] Oral Tablet 03:14:00 PM ET [facility] Lorazepam 0.5 MG Lorazepam 01/06/2019 TABL 0.5 mg ORAL completed [place] Oral Tablet 03:14:00 PM ET [facility] Lorazepam 0.5 MG Lorazepam 01/06/2019 TABL 0.5 mg ORAL completed [place] Oral Tablet 03:14:00 PM ET [facility] Lorazepam 0.5 MG Lorazepam 01/06/2019 TABL 0.5 mg ORAL completed [place] Oral Tablet 03:14:00 PM ET [facility] Lorazepam 0.5 MG Lorazepam 01/06/2019 TABL 0.5 mg ORAL completed [place] Oral Tablet 03:14:00 PM ET [facility] Lorazepam 0.5 MG Lorazepam 01/06/2019 TABL 0.5 mg ORAL completed [place] Oral Tablet 03:14:00 PM ET [facility] Lorazepam 0.5 MG Lorazepam 01/06/2019 TABL 0.5 mg ORAL completed [place] Oral Tablet 03:14:00 PM ET [facility] Lorazepam 0.5 MG Lorazepam 01/06/2019 TABL 0.5 mg ORAL completed [place] Oral Tablet 03:14:00 PM ET [facility] Lorazepam 0.5 MG Lorazepam 01/06/2019 TABL 0.5 mg ORAL completed [place] Oral Tablet 03:14:00 PM ET [facility] Lorazepam 0.5 MG Lorazepam 01/06/2019 TABL 0.5 mg ORAL completed [place] Oral Tablet 03:14:00 PM ET [facility] Calcium Calcium 12/15/2018 TABL 1250 ORAL completed [place] Carbonate 1250 Carbonate 02:00:00 PM ET mg [place] MG [facility] Calcium 12/15/2018 TABL 1250 ORAL completed [place] Carbonate 1250 Carbonate 02:00:00 PM ET mg [place] [facility] Cal[facility] Calcium 12/15/2018 TABL 1250 ORAL completed [place] Carbonate 1250 Carbonate 02:00:00 PM ET mg [place] MG [facility] Calcium Calcium 12/15/2018 TABL 1250 ORAL completed [place] Carbonate 1250 Carbonate 02:00:00 PM ET mg [place] MG Oral Tablet EDT [facility] Calcium Calcium 12/15/2018 TABL 1250 ORAL completed [place] Carbonate 1250 Carbonate 02:00:00 PM ET mg [place] MG Oral Tablet EDT [facility] Calcium Calcium 12/15/2018 TABL 1250 ORAL completed [place] Carbonate 1250 Carbonate 02:00:00 PM ET mg [place] MG Oral Tablet EDT [facility] Calcium Calcium 12/15/2018 TABL 1250 ORAL completed [place] Carbonate 1250 Carbonate 02:00:00 PM ET mg [place] MG Oral Tablet EDT [facility] Calcium Calcium 12/15/2018 TABL 1250 ORAL completed [place] Carbonate 1250 Carbonate 02:00:00 PM ET mg [place] MG Oral Tablet EDT [facility] Calcium Calcium 12/15/2018 TABL 1250 ORAL completed [place] Carbonate 1250 Carbonate 02:00:00 PM ET mg [place] MG Oral Tablet EDT [facility] Calcium Calcium 12/15/2018 TABL 1250 ORAL completed [place] Carbonate 1250 Carbonate 02:00:00 PM ET mg [place] MG Oral Tablet EDT [facility] Calcium Calcium 12/15/2018 TABL 1250 ORAL completed [place] Carbonate 1250 Carbonate 02:00:00 PM ET mg [place] MG Oral Tablet EDT [facility] Calcium Calcium 12/15/2018 TABL 1250 ORAL completed [place] Carbonate 1250 Carbonate 02:00:00 PM ET mg [place] MG Oral Tablet EDT [facility] Calcium Calcium 12/15/2018 TABL 1250 ORAL completed [place] Carbonate 1250 Carbonate 02:00:00 PM ET mg [place] MG Oral Tablet EDT [facility] Calcium Calcium 12/15/2018 TABL 1250 ORAL completed [place] Carbonate 1250 Carbonate 02:00:00 PM ET mg [place] MG Oral Tablet EDT [facility] Calcium Calcium 12/15/2018 TABL 1250 ORAL completed [place] Carbonate 1250 Carbonate 02:00:00 PM ET mg [place] MG Oral Tablet EDT [facility] Calcium Calcium 12/15/2018 TABL 1250 ORAL completed [place] Carbonate 1250 Carbonate 02:00:00 PM ET mg [place] MG Oral Tablet EDT [facility] Calcium Calcium 12/15/2018 TABL 1250 ORAL completed [place] Carbonate 1250 Carbonate 02:00:00 PM ET mg [place] MG Oral Tablet EDT [facility] Calcium Calcium 12/15/2018 TABL 1250 ORAL completed [place] Carbonate 1250 Carbonate 02:00:00 PM ET mg [place] MG Oral Tablet EDT [facility] Levothyroxine Levothyroxine 09/14/2018 TABL 150 ug ORAL completed [facility] Sodium 0.15 MG Sodium 12:22:00 PM ET [place] Oral Tablet [facility] [Synthroid] Amlodipine 10 MG Amlodipine 09/14/2018 TABL 10 mg ORAL completed [facility] Oral Tablet Besylate 12:22:00 PM ET [place] [Norvasc] [facility] Amlodipine Besylate Amlodipine 10 MG Amlodipine 09/14/2018 TABL 10 mg ORAL completed [facility] Oral Tablet Besylate 12:22:00 PM ET [place] [Norvas] [facility] Amlodipine Besylate Amlodipine 10 MG Amlodipine 09/14/2018 TABL 10 mg ORAL completed [facility] Oral Tablet Besylate 12:22:00 PM ET [place] [[facility]] [facility] Amlodipine Besylate Levothyroxine Levothyroxine 09/14/2018 TABL 150 ug ORAL completed [facility] Sodium 0.15 MG Sodium 12:22:00 PM ET [place] Oral Tablet [facility] [Synthroid] Levothyroxine Levothyroxine 09/14/2018 TABL 150 ug ORAL completed [facility] Sodium 0.15 MG Sodium 12:22:00 PM ET [place] Oral Tablet [facility] [Synthroid] Levothyroxine Levothyroxine 09/14/2018 TABL 150 ug ORAL completed [facility] Sodium 0.15 MG Sodium 12:22:00 PM ET [place] Oral Tablet [facility] [Synthroid] Levothyroxine Levothyroxine 09/14/2018 TABL 150 ug ORAL completed [facility] Sodium 0.15 MG Sodium 12:22:00 PM ET [place] Oral Tablet [facility] [Synthroid] Amlodipine 10 MG Amlodipine 09/14/2018 TABL 10 mg ORAL completed [place] Oral Tablet Besylate 12:22:00 PM ET [place] [[facility]] [facility] Amlodipine Besylate Levothyroxine Levothyroxine 09/14/2018 TABL 150 ug ORAL completed [facility] Sodium 0.15 MG Sodium 12:22:00 PM ET [place] Oral Tablet [facility] [Synthroid] Levothyroxine Levothyroxine 09/14/2018 TABL 150 ug ORAL completed [facility] Sodium 0.15 MG Sodium 12:22:00 PM ET [place] Oral Tablet [facility] [Synthroid] Amlodipine 10 MG Amlodipine 09/14/2018 TABL 10 mg ORAL completed [place] Oral Tablet Besylate 12:22:00 PM ET [facility]] [facility] Amlodipine Besylate Amlodipine 10 MG Amlodipine 09/14/2018 TABL 10 mg ORAL completed [place] Oral Tablet Besylate 12:22:00 PM ET [facility]] [facility] Amlodipine Besylate Levothyroxine Levothyroxine 09/14/2018 TABL 150 ug ORAL completed [place] Sodium 0.15 MG Sodium 12:22:00 PM ET [place] Oral Tablet [facility] [Synthroid] Amlodipine 10 MG Amlodipine 09/14/2018 TABL 10 mg ORAL completed [place] Oral Tablet Besylate 12:22:00 PM ET [place] [[facility]] [facility] Amlodipine Besylate Levothyroxine Levothyroxine 09/14/2018 TABL 150 ug ORAL completed [place] Sodium 0.15 MG Sodium 12:22:00 PM ET [place] Oral Tablet [facility] [Synthroid] Amlodipine 10 MG Amlodipine 09/14/2018 TABL 10 mg ORAL completed [place] Oral Tablet Besylate 12:22:00 PM ET [place] [[facility]] [facility] Amlodipine Besylate Levothyroxine Levothyroxine 09/14/2018 TABL 150 ug ORAL completed [place] Sodium 0.15 MG Sodium 12:22:00 PM ET [place] Oral Tablet [facility] [Synthroid] Amlodipine 10 MG Amlodipine 09/14/2018 TABL 10 mg ORAL completed [place] Oral Tablet Besylate 12:22:00 PM ET [place] [[facility]] [facility] Amlodipine Besylate Amlodipine 10 MG Amlodipine 09/14/2018 TABL 10 mg ORAL completed [place] Oral Tablet Besylate 12:22:00 PM ET [place] [[facility]] [facility] Amlodipine Besylate Amlodipine 10 MG Amlodipine 09/14/2018 TABL 10 mg ORAL completed [place] Oral Tablet Besylate 12:22:00 PM ET [place] [[facility]] [facility] Amlodipine Besylate Levothyroxine Levothyroxine 09/14/2018 TABL 150 ug ORAL completed [place] Sodium 0.15 MG Sodium 12:22:00 PM ET [place] Oral Tablet [facility] [Synthroid] Omeprazole 0.667 Omeprazole 40 mg ORAL completed [place] MG/ML Oral Magnesium Plai [facility] [Prilosec] Omeprazole Magnesium apixaban 2.5 MG Apixaban TABL 2.5 mg ORAL completed [place] Oral Tablet ET [place] [Eliquis] [facility] Apixaban Hydroxyzine Hydroxyzine CAPS 1 ORAL completed [facility] Pamoate 50 MG Pamoate ULE {Capsu [place] [facility] Oral Capsule [facility]} Hospita l [Vistaril] quetiapine 200 Quetiapine TABL 200 mg ORAL completed [facility] MG Oral Tablet Fumarate [facility] Fumarate Warfarin Sodium Warfarin Sodium TABL 2 mg ORAL completed [facility] 2 MG Oral Tablet ET [place] [facility] [Coumadin] [facility] quetiapine 200 Quetiapine TABL 200 mg ORAL completed [place] MG Oral Tablet Fumarate [facility] Fumarate Aspirin 325 MG Aspirin TABL 325 mg ORAL completed [place] Oral Tablet ET [place] [[place] Aspirin] Hosp ital Omeprazole 40 MG Omeprazole CAPS 40 mg ORAL completed [facility] Delayed Release ULE, Plai [facility] Oral Capsule DANTE Hospita l YED RELE ASE quetiapine 200 Quetiapine TABL 200 mg ORAL completed [place] MG Oral Tablet Fumarate [facility] Fumarate 24 HR Propranolol H[facility] CONT 160 mg ORAL completed [facility] Propranolol ROLL [place] Hydrochloride 80 ED Hos pital MG Extended RELE Release Oral ASE Capsule CAPS Propranolol Hcl ULE Multivitamin TABL 1 ORAL completed Wh ite ET {Each} [facility] Warfarin Sodium Warfarin Sodium TABL 2 mg ORAL completed [facility] 2 MG Oral Tablet ET [place] [Coumadin] [facility] aripiprazole 30 Aripiprazole TABL 30 mg ORAL completed [place] MG Oral Tablet ET [place] [[facility]] [facility] Aripiprazole 24 HR quetiapine Quetiapine TABL 1 ORAL completed [facility] 400 MG Extended Fumarate ET, {Capsu [place] Release Oral EXTE le} Hospita l Tablet NDED Quetiapine RELE Fumarate ASE Warfarin Sodium Warfarin Sodium TABL 2 mg ORAL completed [facility] 2 MG Oral Tablet ET [place] [Coumadin] [facility] Cyanocobalamin TABL 1 ORAL completed [facility] (Vitamin B-12) ET {Capsu [place] [facility] le} Hospital 24 HR quetiapine Quetiapine TABL 400 mg ORAL completed [facility] 400 MG Extended Fumarate ET, [place] Release Oral EXTE Hospita l Tablet NDED Quetiapine RELE Fumarate ASE montelukast 10 Montelukast TABL 10 mg ORAL completed [facility] MG Oral Tablet Sodium ET [place] [facility] Sodium sevelamer Sevelamer TABL 800 mg ORAL completed [place] carbonate 800 MG Carbonate ET [place] Oral Tablet [facility] [[facility]] Sevelamer Carbonate aripiprazole 30 Aripiprazole TABL 30 mg ORAL completed [place] MG Oral Tablet ET [place] [[facility]] [facility] Aripiprazole montelukast 10 Montelukast TABL 10 mg ORAL completed [facility] MG Oral Tablet Sodium ET [place] [Singula] [facility] Montelukast Sodium Quetiapine 200 mg ORAL completed Wh ite Fumarate [facility] Multivitamin TABL 1 ORAL completed Wh ite ET {Each} [facility] Hydromorphone Hydromorphone TABL 4 mg ORAL completed [facility] Hydrochloride 4 Hcl ET Plai ns MG Oral Tablet Hospi heaven Hydromorphone Hcl Quetiapine UNSP 200 mg ORAL completed ite [facility] Hyoscyamine Hyoscyamine TABL 1 ORAL completed [facility] Sulfate 0.125 MG Sulfate ET {Capsu [place] Oral Tablet le} Hospital [[facility]] Hydromorphone Hydromorphone TABL 4 mg ORAL completed [facility] Hydrochloride 4 Hcl ET Plai ns MG Oral Tablet Hos[facility] Hydromorphone Hcl Hyoscyamine Hyoscyamine TABL 1 ORAL completed [facility] Sulfate 0.125 MG Sulfate ET {Capsu [place] Oral Tablet le} Hospital [[facility]] apixaban 2.5 MG Apixaban TABL 2.5 mg ORAL completed [facility] Oral Tablet ET [place] [[facility] Apixaban Sucralfate 1000 Sucralfate TABL 1 ORAL completed [facility] MG Oral Tablet ET {Capsu [place] le} Hospital Colchicine 0.6 Colchicine TABL ORAL completed [place] MG Oral Tablet [facility] [place] [Colcrys] [facility] Colchicine 0.6 Colchicine TABL ORAL completed [facility] MG Oral Tablet ET [place] [Colcrys[facility] Furosemide 80 MG Furosemide TABL 80 mg ORAL completed [place] Oral Tablet ET [place] [Lasix] Hospital Sucralfate 1000 Sucralfate TABL 1 g ORAL completed [place] MG Oral Tablet ET [place] [Carafate] Hospital Sevelamer Sevelamer Hcl TABL 800 mg ORAL completed [facility] hydrochloride ET [place] 800 MG Oral Hospital Tablet [RenaGel] Sevelamer Hcl Quetiapine UNSP 200 mg ORAL completed [facility] Calcium Calcium TABL 1 ORAL completed Whit e Carbonate 1250 Carbonate ET {Capsu [place] MG Oral Tablet le} Hospi heaven Quetiapine 200 mg ORAL completed ite [facility] Folic Acid 0.8 Folic Acid TABL 0.8 mg ORAL completed [place] MG Oral Tablet ET [place] [facility] Hydroxyzine Hydroxyzine CAPS 50 mg ORAL completed [facility] Pamoate 50 MG Pamoate ULE [place] Oral Capsule [facility]ospita [facility] Aspirin 325 MG Aspirin TABL 325 mg ORAL completed [facility] Oral Tablet ET [place] [[place] Aspirin] Hosp ital sevelamer Sevelamer TABL 800 mg ORAL completed [facility] carbonate 800 MG Carbonate ET [place] Oral Tablet [facility] [Renvela] Sevelamer Carbonate 24 HR Propranolol Hcl CONT 160 mg ORAL completed [facility] Propranolol ROLL [place] Hydrochloride 80 ED Hos pital MG Extended RELE Release Oral ASE Capsule CAPS Propranolol Hcl ULE Pravastatin Pravastatin TABL 40 mg ORAL completed [facility] Sodium 20 MG Sodium ET [facility]t [facility] Omeprazole 0.667 Omeprazole 40 mg ORAL completed [facility] MG/ML Oral Magnesium [facility] [Prilosec] Omeprazole Magnesium sevelamer Sevelamer TABL 800 mg ORAL completed [place] carbonate 800 MG Carbonate ET [place] Oral Tablet [facility] [Renvela] Sevelamer Carbonate Omeprazole 40 MG Omeprazole CAPS 40 mg ORAL completed [facility] Delayed Release ULE, Plai [facility] Oral Capsule DANTE Hospita l YED RELE ASE Quetiapine UNSP 200 mg ORAL completed Wh ite ECIF [place] [facility] Folic Acid 0.8 Folic Acid TABL 0.8 mg ORAL completed [place] MG Oral Tablet [facility] Furosemide 80 MG Furosemide TABL 80 mg ORAL completed [place] Oral Tablet ET [place] [Lasix] Hospital Calcium Calcium TABL 1 ORAL completed Whit e Carbonate 1250 Carbonate ET {Capsu [place] MG Oral Tablet le} Hospi heaven Folic Acid 0.8 Folic Acid TABL 0.8 mg ORAL completed [facility] MG Oral Tablet [facility] Omeprazole 40 MG Omeprazole CAPS 40 mg ORAL completed [place] Delayed Release ULE, Plai ns Oral Capsule DANTE Hospita l YED RELE ASE Amylases [id number] Amylase/Lipase/P CAPS 2 ORAL completed White UNT / rotease ULE, {Capsu [place] Endopeptidases DANTE le} [facility] [address] UNT / YED Lipase 62428 UNT RELE Delayed Release ASE Oral Capsule [Creon] Amylase/Lipase/P rotease Warfarin Sodium Warfarin Sodium TABL 4 mg ORAL completed [facility] 4 MG Oral Tablet [facility] Hydromorphone Hydromorphone TABL 4 mg ORAL completed [facility] Hydrochloride 4 Hcl ET [facility] MG Oral Tablet [facility] Hydromorphone Hcl Hydromorphone Hydromorphone TABL 4 mg ORAL completed [facility] Hydrochloride 4 Hcl ET [facility] [place] MG Oral Tablet [facility] Hydromorphone Hcl Pramipexole Pramipexole TABL 0.5 mg ORAL completed White dihydrochloride Dihydrochloride ET [place] 0.25 MG Oral Hospita l Tablet [Mirapex] Pramipexole Dihydrochloride 24 HR Propranolol Hcl CONT 160 mg ORAL completed White Propranolol ROLL [place] Hydrochloride 80 ED [facility] MG Extended RELE Release Oral ASE Capsule CAPS Propranolol Hcl ULE Omeprazole 40 MG Omeprazole CAPS 40 mg ORAL completed White Delayed Release ULE, [facility] Oral Capsule DANTE Hospita [facility] YED RELE ASE Amylases 996274 Amylase/Lipase/P CAPS 993824 ORAL completed White UNT / rotease ULE, [place] Endopeptidases DANTE [facility] [address] UNT / YED Lipase 54030 UNT RELE Delayed Release ASE Oral Capsule [Creon] Amylase/Lipase/P rotease Omeprazole 0.667 Omeprazole 40 mg ORAL completed White MG/ML Oral Magnesium [facility] [Prilosec] Omeprazole Magnesium quetiapine 100 Quetiapine TABL 100 mg ORAL completed White MG Oral Tablet Fumarate ET [facility] Fumarate Hydromorphone Hydromorphone TABL 4 mg ORAL completed [facility] Hydrochloride 4 Hcl ET [facility] MG Oral Tablet [facility] Hydromorphone Hcl febuxostat 40 MG Febuxostat TABL 40 mg ORAL completed White Oral Tablet ET [place] [Uloric] [facility] Febuxostat 24 HR Propranolol Hcl CAPS 160 mg ORAL completed White Propranolol ULE, [place] Hydrochloride EXTE Hospit [facility] 160 MG Extended NDED Release Oral RELE Capsule ASE Propranolol Hcl Hydromorphone Hydromorphone TABL 4 mg ORAL completed White Hydrochloride 4 Hcl ET [facility] MG Oral Tablet [facility] Hydromorphone Hcl Multivitamin TABL 1 ORAL completed Wh ite ET {Each} [facility] Amylases 908228 Amylase/Lipase/P CAPS 1 ORAL completed White UNT / rotease ULE, {Capsu [place] Endopeptidases DANTE le} [facility] 39012 UNT / YED Lipase 51529 UNT RELE Delayed Release ASE Oral Capsule [Creon] Amylase/Lipase/P rotease Quetiapine UNSP 200 mg ORAL completed Wh ite [facility] Levothyroxine Levothyroxine TABL 150 ug ORAL completed White Sodium 0.15 MG Sodium ET [facility] Prochlorperazine Prochlorperazine TABL 10 mg ORAL completed White 5 MG Oral Tablet Maleate ET [place] Prochlorperazine [facility]ital Maleate Folic Acid 0.8 Folic Acid TABL 0.8 mg ORAL completed White MG Oral Tablet ET [facility] Folic Acid 0.8 Folic Acid TABL 0.8 mg ORAL completed White MG Oral Tablet ET [facility] aripiprazole 30 Aripiprazole TABL 30 mg ORAL completed White MG Oral Tablet ET [facility] [Abili] [facility] Aripiprazole Folic Acid TABL 1 mg ORAL completed Whit e ET [facility] Warfarin Sodium Warfarin Sodium TABL 4 mg ORAL completed White 4 MG Oral Tablet ET [facility] Quetiapine UNSP 200 mg ORAL completed Wh ite [facility] Amylases 660498 Amylase/Lipase/P CAPS 556203 ORAL completed White UNT / rotease ULE, [place] [facility] 88681 UNT / YED Lipase 91792 UNT RELE Delayed Release ASE Oral Capsule [Creon] Amylase/Lipase/P rotease quetiapine 200 Quetiapine TABL 200 mg ORAL completed White MG Oral Tablet Fumarate ET [facility] Quetiapine [facility] Fumarate 24 HR Propranolol Hcl CAPS 160 mg ORAL completed White Propranolol ULE, [place] Hydrochloride EXTE Hospit [facility] 160 MG Extended NDED Release Oral RELE Capsule ASE Propranolol Hcl Aspirin 325 MG Aspirin TABL 325 mg ORAL completed White Oral Tablet ET [place] [[place] Aspirin] Hosp ital Amylases 476868 Amylase/Lipase/P CAPS 621696 ORAL completed White UNT / rotease E, [place] [facility]id[facility] D[facility]TE [facility] 12489 UNT / YED Lipase 01135 UNT RELE Delayed Release ASE Oral Capsule [Creon] Amylase/Lipase/P rotease Pramipexole Pramipexole TABL 0.5 mg ORAL completed White dihydrochloride Dihydrochloride ET [place] 0.25 MG Oral Hospita l Tablet [Mirapex] Pramipexole Dihydrochloride Colchicine 0.6 Colchicine TABL ORAL completed White MG Oral Tablet ET [facility] [Colcrys] [facility] Pramipexole Pramipexole TABL 0.5 mg ORAL completed White dihydrochloride Dihydrochloride ET [place] 0.25 MG Oral Hospita [facility] Tablet [Mirapex] Pramipexole Dihydrochloride apixaban 2.5 MG Apixaban TABL 2.5 mg ORAL completed White Oral Tablet ET [place] [Eliqu] [facility] Apixaban 24 HR Propranolol Hcl CAPS 160 mg ORAL completed White Propranolol ULE, [place] Hydrochloride EXTE Hospit [facility] 160 MG Extended NDED Release Oral RELE Capsule ASE Propranolol Hcl Furosemide 80 MG Furosemide TABL 80 mg ORAL completed White Oral Tablet ET [place] [Lasix] [facility] Quetiapine UNSP 200 mg ORAL completed Wh ite [facility] [place] [facility] Amylases 945434 Amylase/Lipase/P CAPS 192019 ORAL completed White UNT / rotease ULE, [place] [facility] D[facility]TE [facility] 84005 UNT / YED Lipase 72231 UNT RELE Delayed Release ASE Oral Capsule [Creon] Amylase/Lipase/P rotease Vitamin B 12 1 Cyanocobalamin TABL 1000 ORAL completed White MG Oral Tablet ET [facility] Cyanocobalamin [facility] quetiapine 100 Quetiapine TABL 100 mg ORAL completed White MG Oral Tablet Fumarate ET P [facility] [Seroquel] [facility] Quetiapine Fumarate Hydromorphone Hydromorphone TABL 4 mg ORAL completed [facility] Hydrochloride 4 Hcl ET [facility] MG Oral Tablet [facility] Hydromorphone Hcl Warfarin Sodium Warfarin Sodium TABL 2 mg ORAL completed [facility] 2 MG Oral Tablet ET [facility] [Coumadin] [facility] 10 Montelukast TABL 10 mg ORAL completed White MG Oral Tablet Sodium ET [facility] Sodium Pramipexole Pramipexole TABL 0.5 mg ORAL completed White dihydrochloride Di-Hcl ET Pl [facility] 0.5 MG Oral Hospital Tablet Pramipexole Di-Hcl 24 HR quetiapine Quetiapine TABL 400 mg ORAL completed White 400 MG Extended Fumarate ET, [place] Release Oral EXTE Hospita [facility] Tablet NDED Quetiapine RELE Fumarate ASE Omeprazole 0.667 Omeprazole 40 mg ORAL completed White MG/ML Oral Magnesium [facility] [Prilosec] Omeprazole Magnesium Omeprazole 0.667 Omeprazole 40 mg ORAL completed White MG/ML Oral Magnesium [facility] [Prilosec] Omeprazole Magnesium Furosemide 80 MG Furosemide TABL 80 mg ORAL completed White Oral Tablet ET [place] [Lasix] [facility] Levothyroxine Levothyroxine TABL 150 ug ORAL completed White Sodium 0.15 MG Sodium ET [facility] Warfarin Sodium Warfarin Sodium TABL 4 mg ORAL completed White 4 MG Oral Tablet ET [facility] Pramipexole Pramipexole TABL 0.5 mg ORAL completed White dihydrochloride Di-Hcl ET Pl [facility] 0.5 MG Oral Hospital Tablet Pramipexole Di-Hcl Amylases 735409 Amylase/Lipase/P CAPS 1 ORAL completed White UNT / rotease ULE, {Capsu [place] Endopeptidases DANTE le} [facility] 98563 UNT / YED Lipase 95974 UNT RELE Delayed Release ASE Oral Capsule [Creon] Amylase/Lipase/P rotease 12 HR Carbamazepine SUST 300 mg ORAL completed White Carbamazepine TAMEKA [place] 200 MG Extended D Hosp ital Release Oral RELE Tablet ASE [Tegretol] TABL ET Hyoscyamine Hyoscyamine TABL 1 ORAL completed White Sulfate 0.125 MG Sulfate ET {Capsu [place] Oral Tablet le} Hospital [Levsin] Pramipexole Pramipexole TABL 0.5 mg ORAL completed White dihydrochloride Di-Hcl ET Pl [facility] 0.5 MG Oral Hospital Tablet Pramipexole Di-Hcl Quetiapine completed Whit e [facility] 24 HR Propranolol Hcl CAPS 160 mg ORAL completed White Propranolol ULE, [place] Hydrochloride EXTE Hospit al 160 MG Extended NDED Release Oral RELE Capsule ASE Propranolol Hcl Amylases 629103 Amylase/Lipase/P CAPS 1 ORAL completed White UNT / rotease ULE, {Capsu [place] Endopeptidases DANTE le} [facility] 53260 UNT / YED Lipase 82686 UNT RELE Delayed Release ASE Oral Capsule [Creon] Amylase/Lipase/P rotease 24 HR Propranolol Hcl CONT 160 mg ORAL completed White Propranolol ROLL [place] Hydrochloride 80 ED Hos [facility] MG Extended RELE Release Oral ASE Capsule CAPS Propranolol Hcl ULE Quetiapine 200 mg ORAL completed ite [facility] Omeprazole TABL 40 mg ORAL completed [facility] te Magnesium ET, [facility] YED RELE ASE quetiapine 200 Quetiapine TABL 200 mg ORAL completed White MG Oral Tablet Fumarate ET [facility] Fumarate Warfarin Sodium Warfarin Sodium TABL 2 mg ORAL completed [facility] 2 MG Oral Tablet ET [facility] [Coumadin] [facility] Warfarin Sodium Warfarin Sodium TABL 4 mg ORAL completed White 4 MG Oral Tablet ET [facility] montelukast 10 Montelukast TABL 10 mg ORAL completed White MG Oral Tablet Sodium ET [facility] [Singulair] [facility] Montelukast Sodium Amylases 132204 Amylase/Lipase/P CAPS 2 ORAL completed White UNT / rotease ULE, {Capsu [place] Endopeptidases DANTE le} [facility] 00691 UNT / YED Lipase 12934 UNT RELE Delayed Release ASE Oral Capsule [Creon] Amylase/Lipase/P rotease Aspirin 325 MG Aspirin TABL 325 mg ORAL completed White Oral Tablet ET [place] [[place] Aspirin] Hosp ital Hydroxyzine Hydroxyzine CAPS 1 ORAL completed White Pamoate 50 MG Pamoate ULE {Capsu [facility] Oral Capsule le} Hospita l [Vistaril] Omeprazole 0.667 Omeprazole 40 mg ORAL completed White MG/ML Oral Magnesium [facility] [[facility]] Omeprazole Magnesium 24 HR quetiapine Quetiapine TABL 400 mg ORAL completed White 400 MG Extended Fumarate ET, [place] Release Oral EXTE Hospita [facility] Tablet NDED Quetiapine RELE Fumarate ASE Beclomethasone 2 RESPIRAT completed White Dipropionate ORY [place] ([facility] ION) Hydroxyzine Hydroxyzine CAPS 50 mg ORAL completed White Pamoate 50 MG Pamoate ULE [facility] Oral Capsule Hospita [facility] Quetiapine completed Whit e [facility] aripiprazole Aripiprazole 30 mg ORAL completed White Aripiprazole [place] [facility] 24 HR quetiapine Quetiapine TABL 400 mg ORAL completed White 400 MG Extended Fumarate ET, [place] Release Oral EXTE Hospita [facility] Tablet NDED Quetiapine RELE Fumarate ASE 24 HR quetiapine Quetiapine TABL 1 ORAL completed White 400 MG Extended Fumarate ET, {Capsu [place] Release Oral EXTE le} Hospita l Tablet NDED Quetiapine RELE Fumarate ASE aripiprazole 30 Aripiprazole TABL 30 mg ORAL completed White MG Oral Tablet ET [facility]Abili[facility] Aripiprazole Pramipexole Pramipexole TABL 0.5 mg ORAL completed White dihydrochloride Dihydrochloride ET [place] 0.25 MG Oral Hospita l Tablet [Mirapex] Pramipexole Dihydrochloride Multivitamin TABL 1 ORAL completed Wh ite ET {Each} [facility] Omeprazole 0.667 Omeprazole 40 mg ORAL completed White MG/ML Oral Magnesium [facility] Omeprazole Magnesium 24 HR quetiapine Quetiapine TABL 1 ORAL completed White 400 MG Extended Fumarate ET, {Capsu [place] Release Oral EXTE le} Hospita l Tablet NDED Quetiapine RELE Fumarate ASE Folic Acid 0.8 Folic Acid TABL 0.8 mg ORAL completed [facility] MG Oral Tablet [facility] 12 HR Carbamazepine TABL 300 mg ORAL completed White Carbamazepine ET, [place] 100 MG Extended EXTE Hosp ital Release Oral NDED Tablet RELE ASE Multivitamin TABL 1 ORAL completed Wh ite ET {Each} [facility] sevelamer Sevelamer TABL 800 mg ORAL completed White carbonate 800 MG Carbonate ET [place] Oral Tablet [facility] [[facility]] Sevelamer Carbonate sevelamer Sevelamer TABL 800 mg ORAL completed White carbonate 800 MG Carbonate ET [place] Oral Tablet [facility] [[facility]] Sevelamer Carbonate Carbamazepine Carbamazepine TABL 300 completed White 200 MG Oral ET [place] [facility] Meclizine Meclizine Hcl TABL 25 mg ORAL completed [facility] Hydrochloride 25 ET [facility] MG Oral Tablet [facility] Meclizine Hcl Carbamazepine Carbamazepine TABL 300 completed White 200 MG Oral ET [place] [facility] quetiapine 100 Quetiapine TABL 100 mg ORAL completed White MG Oral Tablet Fumarate ET [facility] [Seroquel] [facility] Quetiapine Fumarate Amylases [id number] Amylase/Lipase/P CAPS 1 ORAL completed White UNT / rotease ULE, {Capsu [place] Endopeptidases DANTE le} [facility] 47951 UNT / YED Lipase 77843 UNT RELE Delayed Release ASE Oral Capsule [Creon] Amylase/Lipase/P rotease Warfarin Sodium Warfarin Sodium TABL 2 mg ORAL completed White 2 MG Oral Tablet ET [facility] [Coumadin] [facility] quetiapine 100 Quetiapine TABL 100 mg ORAL completed White MG Oral Tablet Fumarate ET [facility] [Seroquel] [facility] Quetiapine Fumarate Quetiapine UNSP 200 mg [facility]AL [facility] Vitamin B 12 1 Cyanocobalamin TABL 1000 ORAL completed White MG Oral Tablet ET [facility] Cyanocobalamin [facility] 24 HR Propranolol Hcl CONT 160 mg ORAL completed White Propranolol ROLL [place] Hydrochloride 80 ED Hos [facility]ital MG Extended RELE Release Oral ASE Capsule CAPS Propranolol Hcl ULE Pramipexole Pramipexole TABL 0.5 mg ORAL completed White dihydrochloride Dihydrochloride ET [place] 0.25 MG Oral Hospita l Tablet [Mirapex] Pramipexole Dihydrochloride Aspirin 325 MG Aspirin TABL 325 mg ORAL completed White Oral Tablet ET [place] [[place] Aspirin] Hosp [facility] 24 HR Propranolol Hcl CONT 160 mg ORAL completed White Propranolol ROLL [place] Hydrochloride 80 ED Hos [facility] MG Extended RELE Release Oral ASE Capsule CAPS Propranolol Hcl ULE Omeprazole TABL 40 mg ORAL completed Whi te Magnesium ET, [facility] YED RELE ASE quetiapine 200 Quetiapine TABL 200 completed White MG Oral Tablet [facility]ate [facility] F[facility] Hydroxyzine Hydroxyzine CAPS 50 mg ORAL completed White Pamoate 50 MG Pamoate ULE [facility] Oral Capsule Hospita [facility] [Vistaril] Furosemide 80 MG Furosemide TABL 80 mg ORAL completed White Oral Tablet ET [place] [Lasix] [facility] Hydromorphone Hydromorphone TABL 4 mg ORAL completed White Hydrochloride 4 Hcl ET [facility] MG Oral Tablet [facility] Hydromorphone Hcl Multivitamin TABL 1 ORAL completed Wh ite ET {Each} [facility] Calcium Calcium TABL 1 ORAL completed Whit e Carbonate 1250 Carbonate ET {Capsu [place] MG Oral Tablet le} [facility] Prochlorperazine Prochlorperazine TABL 10 mg ORAL completed White 5 MG Oral Tablet Maleate ET [place] Prochlorperazine Hos [facility]ital Maleate Sucralfate 1000 Sucralfate TABL 1 ORAL completed White MG Oral Tablet ET {Capsu [facility] le} [facility] Pramipexole Pramipexole TABL 0.5 mg ORAL completed White dihydrochloride Dihydrochloride ET [place] 0.25 MG Oral Hospita l Tablet [Mirapex] Pramipexole Dihydrochloride Levothyroxine Levothyroxine TABL 150 ug ORAL completed White Sodium 0.15 MG Sodium ET [facility] Quetiapine UNSP 200 mg ORAL completed Wh ite [facility] Prochlorperazine Prochlorperazine TABL 10 mg ORAL completed White 5 MG Oral Tablet Maleate ET [place] Prochlorperazine Hos [facility] Maleate Aspirin 325 MG Aspirin TABL 325 mg ORAL completed White Oral Tablet ET [place] [[place] Aspirin] Hosp ital Furosemide 80 MG Furosemide TABL 80 mg ORAL completed White Oral Tablet ET [place] [Lasix] [facility] Pramipexole Pramipexole TABL 0.5 mg ORAL completed White dihydrochloride Dihydrochloride ET [place] 0.25 MG Oral Hospita l Tablet [Mirapex] Pramipexole Dihydrochloride Hydroxyzine Hydroxyzine CAPS 50 mg ORAL completed White Pamoate 50 MG Pamoate ULE [facility] Oral Capsule [facility]ospita [facility] Warfarin Sodium Warfarin Sodium TABL 4 mg ORAL completed White 4 MG Oral Tablet ET [facility] 24 HR Propranolol Hcl CONT 160 mg ORAL completed White Propranolol ROLL [place] Hydrochloride 80 ED Hos pital MG Extended RELE Release Oral ASE Capsule CAPS Propranolol Hcl ULE Pramipexole Pramipexole TABL 0.5 mg ORAL completed White dihydrochloride Di-Hcl ET Pl [facility] 0.5 MG Oral Hospital Tablet Pramipexole Di-Hcl Warfarin Sodium Warfarin Sodium TABL 4 mg ORAL completed White 4 MG Oral Tablet ET [facility] Folic Acid 0.8 Folic Acid TABL 0.8 mg ORAL completed White MG Oral Tablet ET [facility] Hydroxyzine Hydroxyzine CAPS 50 mg ORAL completed White Pamoate 50 MG Pamoate ULE [facility] Oral Capsule Hospita [facility] [Vistaril] Omeprazole 40 MG Omeprazole CAPS 40 mg ORAL completed White Delayed Release ULE, [facility] Oral Capsule DANTE Hospita l YED RELE ASE apixaban 2.5 MG Apixaban TABL 2.5 mg ORAL completed White Oral Tablet ET [place] [Eliqu] [facility] Apixaban apixaban 2.5 MG Apixaban TABL 2.5 mg ORAL completed White Oral Tablet ET [place] [[facility]] [facility] Apixaban Aspirin 325 MG Aspirin TABL 325 mg ORAL completed White Oral Tablet ET [place] [[place] Aspirin] Hosp ital febuxostat 40 MG Febuxostat TABL 40 mg ORAL completed White Oral Tablet ET [place] [oric] [facility] Febuxostat 24 HR quetiapine Quetiapine TABL 200 mg ORAL completed White 400 MG Extended Fumarate ET, [place] Release Oral EXTE Hospita l Tablet NDED Quetiapine RELE Fumarate ASE Sevelamer Sevelamer Hcl TABL 800 mg ORAL completed White hydrochloride ET [place] 800 MG Oral Hospital Tablet [RenaGel] Sevelamer Hcl Pramipexole Pramipexole TABL 0.5 mg ORAL completed White dihydrochloride Dihydrochloride ET [place] 0.25 MG Oral Hospita [facility] Tablet [Mirapex] Pramipexole Dihydrochloride Folic Acid 0.8 Folic Acid TABL 0.8 mg ORAL completed White MG Oral Tablet ET [facility] Hydromorphone Hydromorphone TABL 4 mg ORAL completed White Hydrochloride 4 Hcl ET [facility]ai [facility] MG Oral Tablet [facility] Hydromorphone Hcl Quetiapine UNSP 200 mg ORAL completed Wh ite ECIF [place] [facility] Hydroxyzine Hydroxyzine CAPS 50 mg ORAL completed White Pamoate 50 MG Pamoate ULE [facility] [facility] Oral Capsule Hospita l [Vistaril] febuxostat 40 MG Febuxostat TABL 40 mg ORAL completed White Oral Tablet ET [place] [Uloric] [facility] Febuxostat Pramipexole Pramipexole TABL 0.5 mg ORAL completed White dihydrochloride Dihydrochloride ET [place] 0.25 MG Oral Hospita l Tablet [Mirapex] Pramipexole Dihydrochloride Hyoscyamine Hyoscyamine TABL ORAL completed White Sulfate 0.125 MG Sulfate ET [place] [facility] Oral Tablet [Symax] Amylases 023166 Amylase/Lipase/P CAPS 2 ORAL completed White UNT / rotease ULE, {Capsu [place] Endopeptidases DANTE le} [facility] 67301 UNT / YED Lipase 87630 UNT RELE Delayed Release ASE Oral Capsule [Creon] Amylase/Lipase/P rotease Ranitidine 150 Ranitidine Hcl TABL 300 mg ORAL completed [facility] MG Oral Tablet ET [facility] Ranitidine Hcl [facility] 24 HR quetiapine Quetiapine TABL 1 ORAL completed White 400 MG Extended Fumarate ET, {Capsu [place] Release Oral EXTE le} Hospita l Tablet NDED Quetiapine RELE Fumarate ASE Amylases [id number] Amylase/Lipase/P CAPS 2 ORAL completed White UNT / rotease ULE, {Capsu [place] Endopeptidases DANTE le} [facility] 51928 UNT / YED Lipase 12682 UNT RELE Delayed Release ASE Oral Capsule [Creon] Amylase/Lipase/P rotease Furosemide 80 MG Furosemide TABL 80 mg ORAL completed White Oral Tablet ET [place] [Lasix] [facility] Hyoscyamine Hyoscyamine TABL 1 ORAL completed White Sulfate 0.125 MG Sulfate ET {Capsu [place] Oral Tablet le} Hospital [Levsin] 24 HR quetiapine Quetiapine TABL 200 mg ORAL completed White 400 MG Extended Fumarate ET, [place] Release Oral EXTE Hospita [facility] Tablet NDED Quetiapine RELE Fumarate ASE apixaban 2.5 MG Apixaban TABL 2.5 mg ORAL completed White Oral Tablet ET [place] [Eliqu] [facility] Apixaban Ranitidine Hcl TABL 300 mg ORAL completed [facility] Folic Acid 0.8 Folic Acid TABL 0.8 mg ORAL completed White MG Oral Tablet ET [facility] 12 HR Carbamazepine SUST 300 mg ORAL completed White Carbamazepine TAMEKA [place] 200 MG Extended D Hosp ital Release Oral RELE Tablet ASE [Tegretol] TABL ET 24 HR quetiapine Quetiapine TABL 200 mg ORAL completed White 400 MG Extended Fumarate ET, [place] Release Oral EXTE Hospita [facility] Tablet NDED Quetiapine RELE Fumarate ASE 24 HR Propranolol Hcl CAPS 160 mg ORAL completed White Propranolol ULE, [place] Hydrochloride EXTE Hospit al 160 MG Extended NDED Release Oral RELE Capsule ASE Propranolol Hcl Ranitidine Hcl TABL 300 mg ORAL completed [facility] Warfarin Sodium Warfarin Sodium TABL 2 mg ORAL completed White 2 MG Oral Tablet ET [facility] ins [Coumadin] [facility] Vitamin B 12 1 Cyanocobalamin TABL 1000 ORAL completed White MG Oral Tablet ET [facility] Cyanocobalamin [facility] 24 HR Propranolol Hcl CAPS completed White Propranolol ULE, [place] Hydrochloride EXTE Hospit al 120 MG Extended NDED Release Oral RELE Capsule ASE Propranolol Hcl Vitamin B 12 1 Cyanocobalamin TABL 1000 ORAL completed White MG Oral Tablet ET [facility] Cyanocobalamin [facility] Omeprazole TABL 40 mg ORAL [facility] sevelamer Sevelamer TABL 800 mg ORAL completed [facility] carbonate 800 MG Carbonate ET [place] Oral Tablet [facility] [Renvela] Sevelamer Carbonate Warfarin Sodium Warfarin Sodium TABL 2 mg ORAL completed White 2 MG Oral Tablet ET [facility] [Coumadin] [facility] Pramipexole Pramipexole TABL 0.5 mg ORAL completed White dihydrochloride Dihydrochloride ET [place] 0.25 MG Oral Hospita l Tablet [Mirapex] Pramipexole Dihydrochloride Furosemide 80 MG Furosemide TABL 80 mg ORAL completed White Oral Tablet ET [place] [Lasix] [facility] 24 HR Propranolol Hcl CAPS 160 mg ORAL completed White Propranolol ULE, [place] Hydrochloride EXTE Hospit al 160 MG Extended NDED Release Oral RELE Capsule ASE Propranolol Hcl 24 HR quetiapine Quetiapine TABL 400 mg ORAL completed White 400 MG Extended Fumarate ET, [place] Release Oral EXTE Hospita l Tablet NDED Quetiapine RELE Fumarate ASE Hydromorphone Hydromorphone TABL 4 mg ORAL completed White Hydrochloride 4 Hcl ET [facility] MG Oral Tablet [facility] Hydromorphone Hcl Hydroxyzine Hydroxyzine CAPS 50 mg ORAL completed White Pamoate 50 MG Pamoate ULE [facility] [facility] Oral Capsule [facility]ospita [facility] Quetiapine 200 mg ORAL completed Wh ite [facility] Aspirin 325 MG Aspirin TABL 325 mg ORAL completed White Oral Tablet ET [place] [[place] Aspirin] Hosp ital 24 HR Propranolol Hcl CONT 160 mg ORAL completed White Propranolol ROLL [place] Hydrochloride 80 ED Hos pital MG Extended RELE Release Oral ASE Capsule CAPS Propranolol Hcl ULE Pramipexole Pramipexole TABL 0.5 mg ORAL completed White dihydrochloride Dihydrochloride ET [place] 0.25 MG Oral Hospita l Tablet [Mirapex] Pramipexole Dihydrochloride Folic Acid 0.8 Folic Acid TABL 0.8 mg ORAL completed White MG Oral Tablet ET [facility] 24 HR Propranolol Hcl CAPS 160 mg ORAL completed White Propranolol ULE, [place] Hydrochloride EXTE Hospit al 160 MG Extended NDED Release Oral RELE Capsule ASE Propranolol Hcl Pramipexole Pramipexole TABL 0.5 mg ORAL completed [facility] dihydrochloride Dihydrochloride ET [place] 0.25 MG Oral Hospita l Tablet [Mirapex] Pramipexole Dihydrochloride Prochlorperazine Prochlorperazine TABL 10 mg ORAL completed White 5 MG Oral Tablet Maleate ET [place] Prochlorperazine [facility]ital Maleate Hydromorphone Hydromorphone TABL 4 mg ORAL completed [facility] Hydrochloride 4 Hcl ET [facility] MG Oral Tablet Hospi [facility] Hydromorphone Hcl sevelamer Sevelamer TABL 800 mg ORAL completed [facility] carbonate 800 MG Carbonate ET [place] [facility] Sevelamer Carbonate 24 HR Propranolol Hcl CONT 160 mg ORAL completed [facility] Propranolol ROLL [place] [facility] MG Extended RELE Release Oral ASE Capsule CAPS Propranolol Hcl ULE sevelamer Sevelamer TABL 800 mg ORAL completed [facility] carbonate 800 MG Carbonate ET [place] [facility] Sevelamer Carbonate Meclizine Meclizine Hcl TABL 25 mg ORAL completed [facility] Hydrochloride 25 ET [place] [facility] Oral Tablet [facility] Meclizine Hcl Hydroxyzine Hydroxyzine CAPS 50 mg ORAL completed [facility] Pamoate 50 MG Pamoate ULE [place] [facility] Oral Capsule [facility]ospita [facility] Omeprazole TABL 40 mg ORAL completed i te Magnesium ET, [facility] YED RELE ASE Hyoscyamine Hyoscyamine TABL 1 ORAL completed [facility] Sulfate 0.125 MG Sulfate ET {Capsu [place] Oral Tablet le} [facility] [Levsin] febuxostat 40 MG Febuxostat TABL 40 mg ORAL completed [facility] Oral Tablet ET [place] [Uloric] [facility] Febuxostat Warfarin Sodium Warfarin Sodium TABL 2 mg ORAL completed [facility] 2 MG Oral Tablet ET [place] [facility] [Coumadin] [facility] Pravastatin Pravastatin TABL 40 mg ORAL completed [facility] Sodium 20 MG Sodium ET [facility] Oral Tablet [facility] Pramipexole Pramipexole TABL 0.5 mg ORAL completed [facility] dihydrochloride Di-Hcl ET Pl [facility] 0.5 MG Oral Hospital Tablet Pramipexole Di-Hcl Hyoscyamine Hyoscyamine TABL ORAL completed [facility] Sulfate 0.125 MG Sulfate ET [place] [facility] Oral Tablet [Symax] Quetiapine UNSP 200 mg ORAL completed [facility] 24 HR Propranolol Hcl CONT 160 mg ORAL completed [facility] Propranolol ROLL [place] Hydrochloride 80 [facility] MG Extended RELE Release Oral ASE Capsule CAPS Propranolol Hcl ULE quetiapine 100 Quetiapine TABL 100 mg ORAL completed [facility] MG Oral Tablet Fumarate ET [facility] [Seroquel] [facility] Quetiapine Fumarate 24 HR Propranolol Hcl CAPS 160 mg ORAL completed [facility] Propranolol ULE, [place] [facility]chlor[facility] EXTE [facility] 160 MG Extended NDED Release Oral RELE Capsule ASE Propranolol Hcl Folic Acid 0.8 Folic Acid TABL 0.8 mg ORAL completed [facility] MG Oral Tablet ET [facility] Ranitidine Hcl TABL 300 mg ORAL completed [facility] ET [facility] Hyoscyamine Hyoscyamine TABL 1 ORAL completed [facility] Sulfate 0.125 MG Sulfate ET {Capsu [place] Oral Tablet le} [facility] [Levsin] Hydroxyzine Hydroxyzine CAPS 50 mg ORAL completed [facility] Pamoate 50 MG Pamoate ULE [place] [facility] Capsule [facility]ita [facility] Pravastatin Pravastatin TABL 40 mg ORAL completed [facility] Sodium 20 MG Sodium ET [facility] Quetiapine UNSP 200 mg ORAL completed [facility] Warfarin Sodium Warfarin Sodium TABL 4 mg ORAL completed [facility] 4 MG Oral Tablet ET [facility] apixaban 2.5 MG Apixaban TABL 2.5 mg ORAL completed [facility] Oral Tablet ET [place] [Eliquis] [facility] Apixaban aripiprazole Aripiprazole 30 mg ORAL completed [facility] Aripiprazole [facility] Quetiapine 200 mg ORAL completed Wh ite Fumarate [facility] Meclizine Meclizine Hcl TABL 25 mg ORAL completed [facility] Hydrochloride 25 ET [place] [facility] Oral Tablet [facility] Meclizine Hcl quetiapine 100 Quetiapine TABL 100 mg ORAL completed [facility] MG Oral Tablet Fumarate ET [facility] [Seroquel] [facility] Quetiapine Fumarate 12 HR Carbamazepine SUST 300 mg ORAL completed [facility] Carbamazepine TAMEKA [place] 200 MG Extended D Hosp ital Release Oral RELE Tablet ASE [Tegretol] TABL ET Pramipexole Pramipexole TABL 0.5 mg ORAL completed [facility] dihydrochloride Dihydrochloride ET [place] 0.25 MG Oral Hospita l Tablet [Mirapex] Pramipexole Dihydrochloride Multivitamin TABL 1 ORAL completed ite ET {Each} [facility] quetiapine 100 Quetiapine TABL 100 mg ORAL completed [facility] MG Oral Tablet [facility]ate [facility] F[facility] Quetiapine UNSP 200 mg ORAL completed ite ECIF [facility] Aspirin 325 MG Aspirin TABL 325 mg ORAL completed [facility] Oral Tablet ET [place] [[place] Aspirin] Hosp ital sevelamer Sevelamer TABL 800 mg ORAL completed [facility] carbonate 800 MG Carbonate ET [place] [facility] [Renvela] Sevelamer Carbonate Folic Acid 0.8 Folic Acid TABL 0.8 mg ORAL completed [facility] MG Oral Tablet ET [facility] montelukast 10 Montelukast TABL 10 mg ORAL completed [facility] MG Oral Tablet Sodium ET [place] [facility] [Singulair] [facility] Montelukast Sodium febuxostat 40 MG Febuxostat TABL 40 mg ORAL completed [facility] Oral Tablet ET [place] [Uloric] [facility] Febuxostat Hydromorphone Hydromorphone TABL 4 mg ORAL completed [facility] Hydrochloride 4 Hcl ET [facility] MG Oral Tablet [facility] Hydromorphone Hcl febuxostat 40 MG Febuxostat TABL 40 mg ORAL completed [facility] Oral Tablet ET [place] [Uloric] [facility] Febuxostat 24 HR Propranolol Hcl CONT 160 mg ORAL completed [facility] Propranolol ROLL [place] Hydrochloride [facility] MG Extended RELE Release Oral ASE Capsule CAPS Propranolol Hcl ULE Furosemide 80 MG Furosemide TABL 80 mg ORAL completed [facility] Oral Tablet ET [place] [Lasix] [facility] Multivitamin TABL 1 ORAL completed Wh ite ET {Each} [place] [facility] Hydroxyzine Hydroxyzine CAPS 50 mg ORAL completed [facility] Pamoate 50 MG Pamoate ULE [place] [facility] Oral Capsule [facility]ospita [facility] Meclizine Meclizine Hcl TABL 25 mg ORAL completed [facility] Hydrochloride 25 ET [place] [facility] Oral Tablet [facility] Meclizine Hcl Pramipexole Pramipexole TABL 0.5 mg ORAL completed [facility] dihydrochloride Dihydrochloride ET [place] 0.25 MG Oral Hospita l Tablet [Mirapex] Pramipexole Dihydrochloride Pramipexole Pramipexole TABL 0.5 mg ORAL completed [facility] dihydrochloride Di-Hcl ET Pl [facility] 0.5 MG Oral Hospital Tablet Pramipexole Di-Hcl quetiapine 200 Quetiapine TABL 200 mg ORAL completed [facility] MG Oral Tablet Fumarate [facility] Fumarate Ranitidine 150 Ranitidine Hcl TABL 300 mg ORAL completed [facility] MG Oral Tablet ET [facility] Ranitidine Hcl [facility] Hydroxyzine Hydroxyzine CAPS 1 ORAL completed [facility] Pamoate 50 MG Pamoate ULE {Capsu [place] [facility] Oral Capsule le} Hospita l [Vistaril] 24 HR Propranolol Hcl CONT 160 mg ORAL completed [facility] Propranolol ROLL [place] Hydrochloride 80 [facility] MG Extended RELE Release Oral ASE Capsule CAPS Propranolol Hcl ULE Hydromorphone Hydromorphone TABL 4 mg ORAL completed [facility] Hydrochloride 4 Hcl ET [facility] MG Oral Tablet [facility] Hydromorphone Hcl 24 HR quetiapine Quetiapine TABL 400 mg ORAL completed [facility] 400 MG Extended Fumarate ET, [place] Release Oral EXTE Hospita l Tablet NDED Quetiapine RELE Fumarate ASE Hyoscyamine Hyoscyamine TABL ORAL completed [facility] Sulfate 0.125 MG Sulfate ET [place] [facility] Oral Tablet [Symax] quetiapine 100 Quetiapine TABL 2 ORAL completed [facility] MG Oral Tablet Fumarate ET {Capsu [place] [Seroquel] le} Hospital Quetiapine Fumarate Sevelamer Sevelamer Hcl TABL 800 mg ORAL completed [facility] hydrochloride ET [place] 800 MG Oral Hospital Tablet [RenaGel] Sevelamer Hcl Warfarin Sodium Warfarin Sodium TABL 4 mg ORAL completed [facility] 4 MG Oral Tablet ET [facility] febuxostat 40 MG Febuxostat TABL 40 mg ORAL completed [facility] Oral Tablet ET [place] [Uloric] [facility] Febuxostat apixaban 2.5 MG Apixaban TABL 2.5 mg ORAL completed [facility] Oral Tablet ET [place] [Eliquis] [facility] Apixaban Pramipexole Pramipexole TABL 0.5 mg ORAL completed [facility] dihydrochloride Dihydrochloride ET [place] 0.25 MG Oral Hospita l Tablet [Mirapex] Pramipexole Dihydrochloride febuxostat 40 MG Febuxostat TABL 40 mg ORAL completed [facility] Oral Tablet ET [place] [Uloric] [facility] Febuxostat Warfarin Sodium Warfarin Sodium TABL 4 mg ORAL completed [facility] 4 MG Oral Tablet ET [facility] Pramipexole Pramipexole TABL 0.5 mg ORAL completed [facility] dihydrochloride Dihydrochloride ET [place] 0.25 MG Oral Hospita l Tablet [Mirapex] Pramipexole Dihydrochloride Hydroxyzine Hydroxyzine CAPS 1 ORAL completed [facility] Pamoate 50 MG Pamoate ULE {Capsu [place] [facility] Oral Capsule le} Hospita l [Vistaril] Amylases 955171 Amylase/Lipase/P CAPS [id number] ORAL completed [facility] UNT / rotease ULE, [place] [facility]TE [facility] 34077 UNT / YED Lipase 76852 UNT RELE Delayed Release ASE Oral Capsule [Creon] Amylase/Lipase/P rotease 24 HR Propranolol Hcl CAPS 160 mg ORAL completed [facility] Propranolol ULE, [place] Hydrochlor[facility] EXTE Hospit al 160 MG Extended NDED Release Oral RELE Capsule ASE Propranolol Hcl Hydroxyzine Hydroxyzine CAPS 50 mg ORAL completed [facility] Pamoate 50 MG Pamoate ULE [place] Oral Capsule [facility]ospita [facility] [Vistaril] Quetiapine UNSP 200 mg ORAL completed Wh ite ECIF [place] [facility] Hydroxyzine Hydroxyzine CAPS 50 mg ORAL completed [facility] Pamoate 50 MG Pamoate ULE [place] [facility] Oral Capsule [facility]ospita [facility] Hydromorphone Hydromorphone TABL 4 mg ORAL completed [facility] Hydrochloride 4 Hcl ET [facility] MG Oral Tablet [facility] Hydromorphone Hcl Furosemide 80 MG Furosemide TABL 80 mg ORAL completed [facility] Oral Tablet ET [place] [Lasix] [facility] Prochlorperazine Prochlorperazine TABL 10 mg ORAL completed [facility] 5 MG Oral Tablet Maleate ET [place] Prochlorperazine [facility] Maleate 24 HR quetiapine Quetiapine TABL 200 mg ORAL completed [facility] 400 MG Extended Fumarate ET, [place] Release Oral EXTE Hospita l Tablet NDED Quetiapine RELE Fumarate ASE quetiapine 200 Quetiapine TABL 200 mg ORAL completed [facility] MG Oral Tablet Fumarate ET [facility] Fumarate 24 HR Propranolol Hcl CONT 160 mg ORAL completed [facility] Propranolol ROLL [place] Hydrochloride 80 ED [facility] MG Extended RELE Release Oral ASE Capsule CAPS Propranolol Hcl ULE Ranitidine Hcl TABL 300 mg ORAL completed [facility] ET [facility] Sevelamer Sevelamer Hcl TABL 800 mg ORAL completed [facility] hydrochloride ET [place] 800 MG Oral Hospital Tablet [RenaGel] Sevelamer Hcl Hydromorphone Hydromorphone TABL 4 mg ORAL completed [facility] Hydrochloride 4 Hcl ET [facility] MG Oral Tablet [facility] Hydromorphone Hcl 24 HR Propranolol Hcl CONT 160 mg ORAL completed [facility] Propranolol ROLL [place] Hydrochloride 80 ED [facility] MG Extended RELE Release Oral ASE Capsule CAPS Propranolol Hcl ULE Amylases [id number] Amylase/Lipase/P CAPS 1 ORAL completed [facility] UNT / rotease ULE, {Capsu [place] Endopeptid[facility] DANTE le} Hospi [facility] 16969 UNT / YED Lipase 96514 UNT RELE Delayed Release ASE Oral Capsule [Creon] Amylase/Lipase/P rotease Hydromorphone Hydromorphone TABL 4 mg ORAL completed [facility] Hydrochloride 4 Hcl ET [facility] MG Oral Tablet Hos[facility] Hydromorphone Hcl aripiprazole 30 Aripiprazole TABL 30 mg ORAL completed [facility] MG Oral Tablet ET [place] [facility] [[facility] Aripiprazole quetiapine 100 Quetiapine TABL 100 mg ORAL completed [facility] MG Oral Tablet Fumarate ET [facility] Fumarate aripiprazole 30 Aripiprazole TABL 30 mg ORAL completed [facility] MG Oral Tablet ET [facility] [Abilif] [facility] Aripiprazole Prochlorperazine Prochlorperazine TABL 10 mg ORAL completed [facility] 5 MG Oral Tablet Maleate ET [place] [facility] Maleate Furosemide 80 MG Furosemide TABL 80 mg ORAL completed [facility] Oral Tablet ET [place] [Lasix] [facility] Amlodipine 10 MG Amlodipine TABL 10 mg ORAL completed [facility] Oral Tablet Besylate ET [facility] ns [facility]mlodipine Hospital Besylate Cyanocobalamin TABL 1 ORAL completed [facility] (Vitamin B-12) ET {Capsu [place] [facility]} [facility] montelukast 10 Montelukast TABL 10 mg ORAL completed [facility] MG Oral Tablet Sodium ET [facility] ins [Singulair] [facility] Montelukast Sodium Warfarin Sodium Warfarin Sodium TABL 4 mg ORAL completed [facility] 4 MG Oral Tablet ET [facility] apixaban 2.5 MG Apixaban TABL 2.5 mg ORAL completed [facility] Oral Tablet ET [place] [Eliquis] [facility] Apixaban Calcium Calcium TABL 1 ORAL completed Whit e Carbonate 1250 Carbonate ET {Capsu [place] MG Oral Tablet le} Hospi heaven Sevelamer Sevelamer Hcl TABL 800 mg ORAL completed [facility] hydrochloride ET [place] 800 MG Oral Hospital Tablet [RenaGel] Sevelamer Hcl Warfarin Sodium Warfarin Sodium TABL 4 mg ORAL completed [facility] 4 MG Oral Tablet ET [facility] Pramipexole Pramipexole TABL 0.5 mg ORAL completed [facility] dihydrochloride Dihydrochloride ET [place] 0.25 MG Oral Hospita l Tablet [Mirapex] Pramipexole Dihydrochloride Sevelamer Sevelamer Hcl TABL 800 mg ORAL completed [facility] hydrochloride ET [place] 800 MG Oral Hospital Tablet [RenaGel] Sevelamer Hcl Amylases [id number] Amylase/Lipase/P CAPS 905735 ORAL completed [facility] UNT / rotease ULE, [place] [facility] 56091 UNT / YED Lipase 16581 UNT RELE Delayed Release ASE Oral Capsule [Creon] Amylase/Lipase/P rotease Warfarin Sodium Warfarin Sodium TABL 2 mg ORAL completed [facility] 2 MG Oral Tablet ET [facility] ins [Coumadin] [facility] Warfarin Sodium Warfarin Sodium TABL 2 mg ORAL completed [facility] 2 MG Oral Tablet ET [facility] [Coumadin] [facility] Amylases [id number] Amylase/Lipase/P CAPS 600567 ORAL completed [facility] UNT / rotease ULE, [place] [facility]opeptid[facility] 97597 UNT / YED Lipase 93529 UNT RELE Delayed Release ASE Oral Capsule [Creon] Amylase/Lipase/P rotease Hydromorphone Hydromorphone TABL 4 mg ORAL completed [facility] Hydrochloride 4 Hcl ET [facility] MG Oral Tablet [facility] Hydromorphone Hcl Pramipexole Pramipexole TABL 0.5 mg ORAL completed [facility] dihydrochloride Dihydrochloride ET [place] 0.25 MG Oral Hospita l Tablet [Mirapex] Pramipexole Dihydrochloride Hydromorphone Hydromorphone TABL 4 mg ORAL completed [facility] Hydrochloride 4 Hcl ET [facility] MG Oral Tablet [facility] Hydromorphone Hcl Quetiapine UNSP 200 mg ORAL completed Wh ite ECIF [facility] Amylases 421986 Amylase/Lipase/P CAPS 668853 ORAL completed [facility] UNT / rotease ULE, [place] [facility] 42337 UNT / YED Lipase 22726 UNT RELE Delayed Release ASE Oral Capsule [Creon] Amylase/Lipase/P rotease montelukast 10 Montelukast TABL 10 mg ORAL completed [facility] MG Oral Tablet Sodium ET [place] [facility] [Singulair] [facility] Montelukast Sodium Folic Acid 1 Mg completed [facility] Amylases 538502 Amylase/Lipase/P CAPS 374128 ORAL completed [facility] UNT / rotease E, [place] [facility]opeptid[facility] 73519 UNT / YED Lipase 49428 UNT RELE Delayed Release ASE Oral Capsule [Creon] Amylase/Lipase/P rotease Warfarin Sodium Warfarin Sodium TABL 4 mg ORAL completed [facility] 4 MG Oral Tablet ET [facility] Lorazepam 1 MG Lorazepam TABL 1 mg ORAL completed [facility] Oral Tablet ET [facility] Omeprazole 40 MG Omeprazole CAPS 40 mg ORAL completed [facility] Delayed Release ULE, [facility] Oral Capsule [facility] YED RELE ASE Pravastatin Pravastatin TABL 40 mg ORAL completed [facility] Sodium 20 MG Sodium ET [facility] Oral Tablet [facility] Meclizine Meclizine Hcl TABL 25 mg ORAL completed [facility] Hydrochloride 25 ET [place] [facility] MG Oral Tablet Hos[facility] Meclizine Hcl apixaban 2.5 MG Apixaban TABL 2.5 mg ORAL completed [facility] Oral Tablet ET [place] [Eliquis] [facility] Apixaban Pramipexole Pramipexole TABL 0.5 mg ORAL completed [facility] dihydrochloride Dihydrochloride ET [place] 0.25 MG Oral Hospita l Tablet [Mirapex] Pramipexole Dihydrochloride montelukast 10 Montelukast TABL 10 mg ORAL completed [facility] MG Oral Tablet Sodium ET [place] [facility] [[facility] Montelukast Sodium Folic Acid 0.8 Folic Acid TABL 0.8 mg ORAL completed [facility] MG Oral Tablet [facility] Prochlorperazine Prochlorperazine TABL 10 mg ORAL completed [facility] 5 MG Oral Tablet Maleate ET [place] [facility] Maleate 24 HR Propranolol Hcl CONT 160 mg ORAL completed [facility] Propranolol ROLL [place] Hydrochloride 80 ED [facility] MG Extended RELE Release Oral ASE Capsule CAPS Propranolol Hcl ULE 24 HR Propranolol Hcl CAPS 160 mg ORAL completed [facility] Propranolol ULE, [place] Hydrochloride EXTE Hospit al 160 MG Extended NDED Release Oral RELE Capsule ASE Propranolol Hcl montelukast 10 Montelukast TABL 10 mg ORAL completed [facility] MG Oral Tablet Sodium ET [place] [facility] [[facility]] [facility] Montelukast Sodium Ranitidine Hcl TABL 300 mg ORAL completed [facility] ET [place] [facility] 24 HR quetiapine Quetiapine TABL 400 mg ORAL completed [facility] 400 MG Extended Fumarate ET, [place] Release Oral EXTE Hospita l Tablet NDED Quetiapine RELE Fumarate ASE Hydroxyzine Hydroxyzine CAPS 1 ORAL completed [facility] Pamoate 50 MG Pamoate ULE {Capsu [place] Oral Capsule le} Hospita l [Vistaril] Hydromorphone Hydromorphone TABL 4 mg ORAL completed [facility] Hydrochloride 4 Hcl ET [facility] MG Oral Tablet [facility] heaven Hydromorphone Hcl 24 HR Propranolol Hcl CONT 160 mg ORAL completed [facility] Propranolol ROLL [place] Hydrochloride 80 ED [facility] MG Extended RELE Release Oral ASE Capsule CAPS Propranolol Hcl ULE Beclomethasone 2 RESPIRAT completed [facility] Dipropionate ORY [place] ([facility] ION) Omeprazole 0.667 Omeprazole 40 mg ORAL completed [facility] MG/ML Oral Magnesium [facility] [Prilosec] Omeprazole Magnesium quetiapine 100 Quetiapine TABL 100 mg ORAL completed [facility] MG Oral Tablet Fumarate ET [facility] Fumarate apixaban 2.5 MG Apixaban TABL 2.5 mg ORAL completed [facility] Oral Tablet ET [place] [Eliquis] [facility] Apixaban 12 HR Carbamazepine SUST 300 mg ORAL completed [facility] Carbamazepine TAMEKA [place] 200 MG Extended D Hosp ital Release Oral RELE Tablet ASE [Tegretol] TABL ET 12 HR Carbamazepine SUST 300 mg ORAL completed [facility] Carbamazepine TAMEKA [place] 200 MG Extended D Hosp ital Release Oral RELE Tablet ASE [Tegretol] TABL ET febuxostat 40 MG Febuxostat TABL 1 ORAL completed [facility] Oral Tablet ET {[facility] Febuxostat } [facility] Multivitamin TABL 1 ORAL completed Wh ite ET {Each} [facility] Hydroxyzine Hydroxyzine CAPS 50 mg ORAL completed [facility] Pamoate 50 MG Pamoate ULE [place] [facility] Oral Capsule [facility]ospita [facility] quetiapine 100 Quetiapine TABL 2 ORAL completed [facility] MG Oral Tablet Fumarate ET {[facility] [Seroquel] } [facility] Quetiapine Fumarate 24 HR quetiapine Quetiapine TABL 400 mg ORAL completed [facility] 400 MG Extended Fumarate ET, [place] Release Oral EXTE Hospita l Tablet NDED Quetiapine RELE Fumarate ASE Hydromorphone Hydromorphone TABL 4 mg ORAL completed [facility] Hydrochloride 4 Hcl ET [facility] MG Oral Tablet [facility] Hydromorphone Hcl Pravastatin Pravastatin TABL 40 mg ORAL completed [facility] Sodium 20 MG Sodium ET [facility] Pramipexole Pramipexole TABL 0.5 mg ORAL completed [facility] dihydrochloride Dihydrochloride ET [place] 0.25 MG Oral Hospita l Tablet [Mirapex] Pramipexole Dihydrochloride Pramipexole Pramipexole TABL 0.5 mg ORAL completed [facility] dihydrochloride Dihydrochloride ET [place] 0.25 MG Oral Hospita l Tablet [Mirapex] Pramipexole Dihydrochloride Pravastatin Pravastatin TABL 40 mg ORAL completed [facility] Sodium 20 MG Sodium ET [facility] Vitamin B 12 1 Cyanocobalamin TABL 1000 ORAL completed [facility] MG Oral Tablet ET [facility] [place] [facility] Cyanocobalamin [facility] Folic Acid 0.8 Folic Acid TABL 0.8 mg ORAL completed [facility] MG Oral Tablet ET [facility] Pramipexole Pramipexole TABL 0.5 mg ORAL completed [facility] dihydrochloride Dihydrochloride ET [place] 0.25 MG Oral Hospita l Tablet [Mirapex] Pramipexole Dihydrochloride apixaban 2.5 MG Apixaban TABL 2.5 mg ORAL completed [facility] Oral Tablet ET [place] [Eliquis] [facility] Apixaban Pravastatin Pravastatin TABL 40 mg ORAL completed [facility] Sodium 20 MG Sodium ET [facility] Hydromorphone Hydromorphone TABL 4 mg ORAL completed [facility] Hydrochloride 4 Hcl ET [facility] MG Oral Tablet [facility] heaven Hydromorphone Hcl Lorazepam 1 MG Lorazepam TABL 1 mg ORAL completed [facility] Oral Tablet ET [place] [facility] 24 HR Propranolol Hcl CONT 160 mg ORAL completed [facility] Propranolol ROLL [place] Hydrochloride 80 ED [facility]ital MG Extended RELE Release Oral ASE Capsule CAPS Propranolol Hcl ULE Warfarin Sodium Warfarin Sodium TABL 4 mg ORAL completed [facility] 4 MG Oral Tablet ET [facility] 24 HR quetiapine Quetiapine TABL 1 ORAL completed [facility] 400 MG Extended Fumarate ET, {Capsu [place] Release Oral EXTE le} Hospita l Tablet NDED Quetiapine RELE Fumarate ASE febuxostat 40 MG Febuxostat TABL 40 mg ORAL completed [facility] Oral Tablet ET [place] [Uloric] [facility] Febuxostat 12 HR Carbamazepine SUST 300 mg ORAL completed [facility] Carbamazepine TAMEKA [place] 200 MG Extended D Hosp ital Release Oral RELE Tablet ASE [Tegretol] TABL ET Hydroxyzine Hydroxyzine CAPS 1 ORAL completed [facility] Pamoate 50 MG Pamoate ULE {Capsu [place] Oral Capsule le} Hospita l [Vistaril] Omeprazole TABL 40 mg ORAL completed Whi te Magnesium ET, [facility] YED RELE ASE Pramipexole Pramipexole TABL 0.5 mg ORAL completed [facility] dihydrochloride Dihydrochloride ET [place] 0.25 MG Oral Hospita l Tablet [Mirapex] Pramipexole Dihydrochloride apixaban 2.5 MG Apixaban TABL 2.5 mg ORAL completed [facility] Oral Tablet ET [place] [[facility]] [facility] Apixaban aripiprazole 30 Aripiprazole TABL 30 mg ORAL completed [facility] MG Oral Tablet ET [place] [facility] [Abili] [facility] Aripiprazole apixaban 2.5 MG Apixaban TABL 2.5 mg ORAL completed [facility] Oral Tablet ET [place] [[facility]] [facility] Apixaban 24 HR Propranolol Hcl CONT 160 mg ORAL completed [facility] Propranolol ROLL [place] Hydrochloride 80 ED [facility]ital MG Extended RELE Release Oral ASE Capsule CAPS Propranolol Hcl ULE 24 HR quetiapine Quetiapine TABL 400 mg ORAL completed [facility] 400 MG Extended Fumarate ET, [place] Release Oral EXTE Hospita l Tablet NDED Quetiapine RELE Fumarate ASE 24 HR quetiapine Quetiapine TABL 200 mg ORAL completed [facility] 400 MG Extended Fumarate ET, [place] Release Oral EXTE Hospita l Tablet NDED Quetiapine RELE Fumarate ASE 24 HR Propranolol Hcl CONT 160 mg ORAL completed [facility] Propranolol ROLL [place] Hydrochloride 80 ED Hos [facility]ital MG Extended RELE Release Oral ASE Capsule CAPS Propranolol Hcl ULE Hydroxyzine Hydroxyzine CAPS 50 mg ORAL completed [facility] Pamoate 50 MG Pamoate ULE [place] Oral Capsule [facility]ospita l Pramipexole Pramipexole TABL 0.5 mg ORAL completed [facility] dihydrochloride Dihydrochloride ET [place] 0.25 MG Oral Hospita l Tablet [Mirapex] Pramipexole Dihydrochloride Prochlorperazine Prochlorperazine TABL 10 mg ORAL completed [facility] 5 MG Oral Tablet Maleate ET [place] Prochlor[facility] Maleate Quetiapine UNSP 200 mg ORAL completed ite ECIF [place] [facility] Amlodipine 10 MG Amlodipine TABL 10 mg ORAL completed [facility] Oral Tablet Besylate ET [facility] Besylate Pramipexole Pramipexole TABL 0.5 mg ORAL completed [facility] dihydrochloride Dihydrochloride ET [place] 0.25 MG Oral Hospita l Tablet [Mirapex] Pramipexole Dihydrochloride Ranitidine Hcl TABL 300 mg ORAL completed [facility] ET [place] [facility] Omeprazole 0.667 Omeprazole 40 mg ORAL completed [facility] MG/ML Oral Magnesium [facility] [Prilosec] Omeprazole Magnesium 24 HR Propranolol Hcl CAPS 160 mg ORAL completed [facility] Propranolol ULE, [place] Hydrochloride EXTE Hospit al 160 MG Extended NDED Release Oral RELE Capsule ASE Propranolol Hcl Hyoscyamine Hyoscyamine TABL 1 ORAL completed [facility] Sulfate 0.125 MG Sulfate ET {Capsu [place] Oral Tablet le} Hospital [Levsin] Quetiapine 200 mg ORAL completed ite Fumarate [facility] Prochlorperazine Prochlorperazine TABL 10 mg ORAL completed [facility] 5 MG Oral Tablet Maleate ET [place] Prochlorperazine [facility] Maleate Hydromorphone Hydromorphone TABL 4 mg ORAL completed [facility] Hydrochloride 4 Hcl ET [facility] MG Oral Tablet Hos[facility] heaven Hydromorphone Hcl Omeprazole 0.667 Omeprazole 40 mg ORAL completed [facility] MG/ML Oral Magnesium [facility] [Prilosec] Omeprazole Magnesium quetiapine 200 Quetiapine TABL 200 mg ORAL completed [facility] MG Oral Tablet F[facility]ate [facility] Fumarate 12 HR Carbamazepine SUST 300 mg ORAL completed [facility] Carbamazepine TAMEKA [place] 200 MG Extended D Hosp ital Release Oral RELE Tablet ASE [Tegretol] TABL ET Warfarin Sodium Warfarin Sodium TABL 2 mg ORAL completed [facility] 2 MG Oral Tablet ET [place] [facility]Coumadin] [facility] Quetiapine UNSP 200 mg ORAL completed Wh ite [facility] Prochlorperazine Prochlorperazine TABL 10 mg ORAL completed White 5 MG Oral Tablet Maleate ET [place] [facility] Maleate 12 HR Carbamazepine SUST 300 mg ORAL completed [facility] Carbamazepine TAMEKA [place] 200 MG Extended D Hosp ital Release Oral RELE Tablet ASE [Tegretol] TABL ET Levothyroxine Levothyroxine TABL 150 ug ORAL completed [facility] Sodium 0.15 MG Sodium ET [facility] Oral Tablet [facility] 24 HR Propranolol Hcl CAPS 160 mg ORAL completed [facility] Propranolol ULE, [place] [facility] 160 MG Extended NDED Release Oral RELE Capsule ASE Propranolol Hcl Hydroxyzine Hydroxyzine CAPS 50 mg ORAL completed White Pamoate 50 MG Pamoate ULE [place] [facility] Oral Capsule [facility]osp[facility] Hyoscyamine Hyoscyamine TABL ORAL completed [facility] Sulfate 0.125 MG Sulfate ET [place] [facility] Oral Tablet [Symax] Omeprazole TABL 40 mg ORAL completed Whi te Magnesium ET, [facility] YED RELE ASE Amylases [id number] Amylase/Lipase/P CAPS 1 ORAL completed White UNT / rotease ULE, {Capsu [place] Endopeptidases DANTE le} Hospi heaven [address]22 UNT / YED Lipase 85960 UNT RELE Delayed Release ASE Oral Capsule [Creon] Amylase/Lipase/P rotease Hyoscyamine Hyoscyamine TABL 1 ORAL completed [facility] Sulfate 0.125 MG Sulfate ET {Capsu [place] Oral Tablet le} Hospital [Levsin] aripiprazole 30 Aripiprazole TABL 30 mg ORAL completed [facility] MG Oral Tablet [facility] [Abilif[facility] Aripiprazole Amylases [id number] Amylase/Lipase/P CAPS 2 ORAL completed White UNT / rotease ULE, {Capsu [place] Endopeptidases DANTE le} [facility] 9[address]11 UNT / YED Lipase 51098 UNT RELE Delayed Release ASE Oral Capsule [Creon] Amylase/Lipase/P rotease febuxostat 40 MG Febuxostat TABL 40 mg ORAL completed White Oral Tablet ET [place] [Uloric] [facility] Febuxostat Prochlorperazine Prochlorperazine TABL 10 mg ORAL completed White 5 MG Oral Tablet Maleate ET [place] [facility] Maleate quetiapine 200 Quetiapine TABL 200 mg ORAL completed [facility] MG Oral Tablet Fumarate [facility] Fumarate Hyoscyamine Hyoscyamine TABL ORAL completed [facility] Sulfate 0.125 MG Sulfate ET [place] [facility] Oral Tablet [Symax] 24 HR Propranolol Hcl CONT 160 mg ORAL completed White Propranolol ROLL [place] Hydrochloride 80 ED Hos pital MG Extended RELE Release Oral ASE Capsule CAPS Propranolol Hcl ULE Hydromorphone Hydromorphone TABL 4 mg ORAL completed [facility] Hydrochloride 4 Hcl ET [facility] MG Oral Tablet [facility] Hydromorphone Hcl 24 HR Propranolol Hcl CONT 160 mg ORAL completed White Propranolol ROLL [place] Hydrochloride 80 ED Hos pital MG Extended RELE Release Oral ASE Capsule CAPS Propranolol Hcl ULE Warfarin Sodium Warfarin Sodium TABL 4 mg ORAL completed White 4 MG Oral Tablet ET [facility] Hydromorphone Hydromorphone TABL 4 mg ORAL completed [facility] Hydrochloride 4 Hcl ET [facility] MG Oral Tablet [facility] Hydromorphone Hcl Warfarin Sodium Warfarin Sodium TABL 2 mg ORAL completed White 2 MG Oral Tablet ET [facility] [Coumadin] [facility] Quetiapine UNSP 200 mg ORAL completed Wh ite EC[facility] [place] [facility] febuxostat 40 MG Febuxostat TABL 40 mg ORAL completed White Oral Tablet ET [place] [Uloric] [facility] Febuxostat Omeprazole 40 MG Omeprazole CAPS 40 mg ORAL completed [facility] Delayed Release ULE, [facility] Oral Capsule D[facility]TE [facility]ospita [facility] YED RELE ASE 24 HR quetiapine Quetiapine TABL 400 mg ORAL completed [facility] 400 MG Extended Fumarate ET, [place] Release Oral EXTE Hospita l Tablet NDED Quetiapine RELE Fumarate ASE Calcium Calcium TABL 1 ORAL completed Whit e Carbonate 1250 Carbonate ET {Capsu [place] MG Oral Tablet le} Hospi heaven Omeprazole 0.667 Omeprazole 40 mg ORAL completed [facility] MG/ML Oral Magnesium [facility] [Prilose] Omeprazole Magnesium Calcium Calcium TABL 1 ORAL completed Whit e Carbonate 1250 Carbonate ET {Capsu [place] MG Oral Tablet le} Hos[facility] Lorazepam 1 MG Lorazepam TABL 1 mg ORAL completed White Oral Tablet ET [facility] Hydromorphone Hydromorphone TABL 4 mg ORAL completed [facility] Hydrochloride 4 Hcl ET [facility]ai [facility] MG Oral Tablet [facility] Hydromorphone Hcl Furosemide 80 MG Furosemide TABL 80 mg ORAL completed White Oral Tablet ET [place] [[facility] Warfarin Sodium Warfarin Sodium TABL 4 mg ORAL completed White 4 MG Oral Tablet ET [facility] Furosemide 80 MG Furosemide TABL 80 mg ORAL completed [facility] Oral Tablet ET [place] [[facility]] [facility] quetiapine 100 Quetiapine TABL 100 mg ORAL completed [facility] MG Oral Tablet Fumarate ET [facility] Quetiapine Fumarate 12 HR Carbamazepine SUST 300 mg ORAL completed [facility] Carbamazepine TAMEKA [place] 200 MG Extended D Hosp ital Release Oral RELE Tablet ASE [Tegretol] TABL ET Prochlorperazine Prochlorperazine TABL 10 mg ORAL completed White 5 MG Oral Tablet Maleate ET [place] [facility] Maleate Hydromorphone Hydromorphone TABL 4 mg ORAL completed [facility] Hydrochloride 4 Hcl ET [facility] MG Oral Tablet [facility] Hydromorphone Hcl Omeprazole 40 MG Omeprazole CAPS 40 mg ORAL completed [facility] Delayed Release ULE, [facility] RELE ASE sevelamer Sevelamer TABL 800 mg ORAL completed White carbonate 800 MG Carbonate ET [place] Oral Tablet [facility] Sevelamer Carbonate Omeprazole 0.667 Omeprazole 40 mg ORAL completed [facility] MG/ML Oral Magnesium [facility] [Prilose] Omeprazole Magnesium Omeprazole TABL 40 mg ORAL completed Whi te Magnesium ET, [place] [facility] YED RELE ASE Pramipexole Pramipexole TABL 0.5 mg ORAL completed [facility] dihydrochloride Di-Hcl ET Pl ains 0.5 MG Oral Hospital Tablet Pramipexole Di-Hcl Amylases [id number] Amylase/Lipase/P CAPS 2 ORAL completed White UNT / rotease ULE, {Capsu [place] Endopeptidases DANTE le} Hospi [facility] 49917 UNT / YED Lipase 93562 UNT RELE Delayed Release ASE Oral Capsule [Creon] Amylase/Lipase/P rotease Colchicine 0.6 Colchicine TABL ORAL completed White MG Oral Tablet ET [facility] [Colcrys] [facility] Quetiapine UNSP 200 mg ORAL completed ite [facility] Quetiapine UNSP 200 mg ORAL completed [facility] Folic Acid 0.8 Folic Acid TABL 0.8 mg ORAL completed White MG Oral Tablet ET [facility] Pramipexole Pramipexole TABL 0.5 mg ORAL completed [facility] dihydrochloride Di-Hcl ET Pl ains 0.5 MG Oral Hospital Tablet Pramipexole Di-Hcl Amylases [id number] Amylase/Lipase/P CAPS 2 ORAL completed White UNT / rotease ULE, {[facility] Endopeptidases DANTE le} Hospi [facility] 19409 UNT / YED Lipase 01124 UNT RELE Delayed Release ASE Oral Capsule [Creon] Amylase/Lipase/P rotease Vitamin B 12 1 Cyanocobalamin TABL 1000 ORAL completed [facility] MG Oral Tablet ET [facility] [place] [facility] Cyanocobalamin [facility] Hydromorphone Hydromorphone TABL 4 mg ORAL completed [facility] Hydrochloride 4 Hcl ET [facility] MG Oral Tablet [facility] Hydromorphone Hcl Hydroxyzine Hydroxyzine CAPS 50 mg ORAL completed White Pamoate 50 MG Pamoate ULE [place] [facility]apsule [facility] [Vistaril] Prochlorperazine Prochlorperazine TABL 10 mg ORAL completed White 5 MG Oral Tablet Maleate ET [place] [facility] Maleate Pramipexole Pramipexole TABL 0.5 mg ORAL completed [facility] dihydrochloride Di-Hcl ET Pl ains 0.5 MG Oral Hospital Tablet Pramipexole Di-Hcl Warfarin Sodium Warfarin Sodium TABL 2 mg ORAL completed [facility] 2 MG Oral Tablet ET [place] [facility]oumadin] [facility] Quetiapine completed Whit e [facility] Lorazepam 1 MG Lorazepam TABL 1 mg ORAL completed White Oral Tablet ET [facility] Omeprazole TABL 40 mg ORAL completed i te Magnesium ET, [facility] YED RELE ASE Pramipexole Pramipexole TABL 0.5 mg ORAL completed [facility] dihydrochloride Dihydrochloride ET [place] 0.25 MG Oral Hospita l Tablet [Mirapex] Pramipexole Dihydrochloride Quetiapine completed Whit e [facility] 24 HR Propranolol Hcl CONT 160 mg ORAL completed White Propranolol ROLL [place] Hydrochloride 80 ED Hos pital MG Extended RELE Release Oral ASE Capsule CAPS Propranolol Hcl ULE 24 HR Propranolol Hcl CONT 160 mg ORAL completed [facility] Propranolol ROLL [place] Hydrochloride 80 ED Hos pital MG Extended RELE Release Oral ASE Capsule CAPS Propranolol Hcl ULE 24 HR Propranolol Hcl CONT 160 mg ORAL completed White Propranolol ROLL [place] Hydrochloride 80 ED Hos [facility]ital MG Extended RELE Release Oral ASE Capsule CAPS Propranolol Hcl ULE quetiapine 100 Quetiapine TABL 100 mg ORAL completed [facility] MG Oral Tablet Fumarate ET [facility] Quetiapine Fumarate Folic Acid 0.8 Folic Acid TABL 0.8 mg ORAL completed White MG Oral Tablet ET [facility] Pramipexole Pramipexole TABL 0.5 mg ORAL completed [facility] dihydrochloride Dihydrochloride ET [place] 0.25 MG Oral Hospita l Tablet [Mirapex] Pramipexole Dihydrochloride Omeprazole 0.667 Omeprazole 40 mg ORAL completed [facility] MG/ML Oral Magnesium Plai ns [facility] [[facility]] Omeprazole Magnesium Hydromorphone Hydromorphone TABL 4 mg ORAL completed [facility] Hydrochloride 4 Hcl ET Plai ns MG Oral Tablet [facility] Hydromorphone Hcl Hydroxyzine Hydroxyzine CAPS 1 ORAL completed White Pamoate 50 MG Pamoate ULE {Capsu [place] Oral Capsule [facility] [Vistaril] Hydromorphone Hydromorphone TABL 4 mg ORAL completed [facility] Hydrochloride 4 Hcl ET Plai ns MG Oral Tablet Hos[facility] Hydromorphone Hcl Pravastatin Pravastatin TABL 40 mg ORAL completed [facility] Sodium 20 MG Sodium ET [facility] Hydroxyzine Hydroxyzine CAPS 1 ORAL completed White Pamoate 50 MG Pamoate ULE {Capsu [place] Oral Capsule le[facility] [Vistaril] Omeprazole TABL 40 mg ORAL completed Whi te Magnesium ET, [facility] YED RELE ASE Hydromorphone Hydromorphone TABL 4 mg ORAL completed [facility] Hydrochloride 4 Hcl ET Plai ns MG Oral Tablet [facility] Hydromorphone Hcl Warfarin Sodium Warfarin Sodium TABL 2 mg ORAL completed [facility] 2 MG Oral Tablet ET [facility] [facility]Coumadin] [facility] Folic Acid 0.8 Folic Acid TABL 0.8 mg ORAL completed White MG Oral Tablet ET [facility] quetiapine 200 Quetiapine TABL 200 mg ORAL completed White MG Oral Tablet Fumarate ET [facility] Fumarate 24 HR Propranolol Hcl CONT 160 mg ORAL completed White Propranolol ROLL [place] Hydrochloride 80 ED Hos [facility]ital MG Extended RELE Release Oral ASE Capsule CAPS Propranolol Hcl ULE febuxostat 40 MG Febuxostat TABL 1 ORAL completed White Oral Tablet ET {[facility] Febuxostat le} [facility] Folic Acid 0.8 Folic Acid TABL 0.8 mg ORAL completed White MG Oral Tablet ET [facility] Colchicine 0.6 Colchicine TABL ORAL completed White MG Oral Tablet ET [facility] [Colcrys] [facility] 24 HR quetiapine Quetiapine TABL 400 mg ORAL completed [facility] 400 MG Extended Fumarate ET, [place] Release Oral EXTE Hospita l Tablet NDED Quetiapine RELE Fumarate ASE Colchicine 0.6 Colchicine TABL ORAL completed White MG Oral Tablet ET [facility] [Colcrys] Hospital Pravastatin Pravastatin TABL 40 mg ORAL completed [facility] Sodium 20 MG Sodium ET [place] [facility] Quetiapine 200 mg ORAL completed Wh ite [facility] 24 HR Propranolol Hcl CONT 160 mg ORAL completed White Propranolol ROLL [place] Hydrochloride 80 ED Hos pital MG Extended RELE Release Oral ASE Capsule CAPS Propranolol Hcl ULE Amylases [id number] Amylase/Lipase/P CAPS 1 ORAL completed [facility] UNT / rotease ULE, [facility] [place] Endopeptidases D[facility]TE le} [facility]pi [facility] 69719 UNT / YED Lipase 41204 UNT RELE Delayed Release ASE Oral Capsule [Creon] Amylase/Lipase/P rotease Prochlorperazine Prochlorperazine TABL 10 mg ORAL completed White 5 MG Oral Tablet Maleate ET [place] [facility] Maleate Quetiapine UNSP 200 mg ORAL [facility] Omeprazole 0.667 Omeprazole 40 mg ORAL completed [facility] MG/ML Oral Magnesium [facility] [Prilosec] Omeprazole Magnesium 12 HR Carbamazepine SUST 300 mg ORAL completed White Carbamazepine TAMEKA [place] 200 MG Extended D Hosp ital Release Oral RELE Tablet ASE [Tegretol] TABL ET 24 HR quetiapine Quetiapine TABL 400 mg ORAL completed [facility] 400 MG Extended Fumarate ET, [place] Release Oral EXTE Hospita l Tablet NDED Quetiapine RELE Fumarate ASE 24 HR quetiapine Quetiapine TABL 200 mg ORAL completed [facility] 400 MG Extended Fumarate ET, [place] Release Oral EXTE Hospita l Tablet NDED Quetiapine RELE Fumarate ASE Warfarin Sodium Warfarin Sodium TABL 2 mg ORAL completed [facility] 2 MG Oral Tablet ET [facility] [Coumadin] [facility] Furosemide 80 MG Furosemide TABL 80 mg ORAL completed White Oral Tablet ET [place] [Lasix] [facility] Folic Acid 0.8 Folic Acid TABL 0.8 mg ORAL completed White MG Oral Tablet ET [facility] Furosemide 80 MG Furosemide TABL 80 mg ORAL completed White Oral Tablet ET [place] [[facility]] [facility] Vitamin B 12 1 Cyanocobalamin TABL 1000 ORAL completed White MG Oral Tablet ET [facility] Cyanocobalamin [facility] Vitamin B 12 1 Cyanocobalamin TABL 1000 ORAL completed White MG Oral Tablet ET [facility] Cyanocobalamin Hospi [facility] 24 HR Propranolol Hcl CAPS 160 mg ORAL completed [facility] Propranolol ULE, [place] Hydrochloride EXTE Hospit al 160 MG Extended NDED Release Oral RELE Capsule ASE Propranolol Hcl quetiapine 100 Quetiapine TABL 100 mg ORAL completed [facility] MG Oral Tablet Fumarate ET [facility] Fumarate Warfarin Sodium Warfarin Sodium TABL 4 mg ORAL completed [facility] 4 MG Oral Tablet ET [facility] 12 HR Carbamazepine SUST 300 mg ORAL completed White Carbamazepine TAMEKA [place] 200 MG Extended D Hosp ital Release Oral RELE Tablet ASE [Tegretol] TABL ET Hydromorphone Hydromorphone TABL 4 mg ORAL completed [facility] Hydrochloride 4 Hcl ET Plai ns MG Oral Tablet Hospi [facility] Hydromorphone Hcl Quetiapine completed Whit e Fumarate [place] [facility] 12 HR Carbamazepine SUST 300 mg ORAL completed White Carbamazepine TAMEKA [place] 200 MG Extended D Hosp ital Release Oral RELE Tablet ASE [Tegretol] TABL ET Warfarin Sodium Warfarin Sodium TABL 4 mg ORAL completed [facility] 4 MG Oral Tablet ET [facility] Sucralfate 1000 Sucralfate TABL 1 g ORAL completed White MG Oral Tablet ET [facility] [Carafate] [facility] quetiapine 200 Quetiapine TABL 200 mg ORAL completed [facility] MG Oral Tablet Fumarate [facility] Fumarate Warfarin Sodium Warfarin Sodium TABL 2 mg ORAL completed [facility] 2 MG Oral Tablet ET [place] [facility] [Coumadin] [facility] Pramipexole Pramipexole TABL 0.5 mg ORAL completed [facility] dihydrochloride Dihydrochloride ET [place] 0.25 MG Oral Hospita l Tablet [Mirapex] Pramipexole Dihydrochloride Amylases [id number] Amylase/Lipase/P CAPS 2 ORAL completed White UNT / rotease ULE, {Capsu [place] Endopeptidases DANTE le} Hospi [facility] 77767 UNT / YED Lipase 73658 UNT RELE Delayed Release ASE Oral Capsule [Creon] Amylase/Lipase/P rotease febuxostat 40 MG Febuxostat TABL 40 mg ORAL completed White Oral Tablet ET [place] [Uloric] [facility] Febuxostat 12 HR Carbamazepine SUST 300 mg ORAL completed White Carbamazepine TAMEKA [place] 200 MG Extended D Hosp ital Release Oral RELE Tablet ASE [Tegretol] TABL ET 12 HR Carbamazepine SUST 300 mg ORAL completed White Carbamazepine TAMEKA [place] 200 MG Extended D Hosp ital Release Oral RELE Tablet ASE [Tegretol] TABL ET Prochlorperazine Prochlorperazine TABL 10 mg ORAL completed White 5 MG Oral Tablet Maleate ET [place] Prochlorperazine Hos [facility]ital Maleate quetiapine 200 Quetiapine TABL 200 mg ORAL completed [facility] MG Oral Tablet Fumarate ET [facility] Fumarate Pravastatin Pravastatin TABL 40 mg ORAL completed [facility] Sodium 20 MG Sodium [facility] Warfarin Sodium Warfarin Sodium TABL 2 mg ORAL completed [facility] 2 MG Oral Tablet ET [place] [facility] [Coumadin] [facility] Vitamin B 12 1 Cyanocobalamin TABL 1000 ORAL completed [facility] MG Oral Tablet ET [facility] [place] [facility] Cyanocobalamin [facility] Hydroxyzine Hydroxyzine CAPS 50 mg ORAL completed White Pamoate 50 MG Pamoate ULE [place] [facility] Oral Capsule [facility] Hydroxyzine Hydroxyzine CAPS 50 mg ORAL completed White Pamoate 50 MG Pamoate ULE [place] [facility] Oral Capsule [facility]ospita [facility] Pramipexole Pramipexole TABL 0.5 mg ORAL completed [facility] dihydrochloride Dihydrochloride ET [place] 0.25 MG Oral Hospita l Tablet [Mirapex] Pramipexole Dihydrochloride Pramipexole Pramipexole TABL 0.5 mg ORAL completed [facility] dihydrochloride Di-Hcl ET Pl ains 0.5 MG Oral Hospital Tablet Pramipexole Di-Hcl Quetiapine completed Health system Ranitidine Hcl TABL 300 mg ORAL completed [facility] 24 HR Propranolol Hcl CONT 160 mg ORAL completed White Propranolol ROLL [place] Hydrochloride 80 ED Hos pital MG Extended RELE Release Oral ASE Capsule CAPS Propranolol Hcl ULE Pramipexole Pramipexole TABL 0.5 mg ORAL completed [facility] dihydrochloride Di-Hcl ET Pl ains 0.5 MG Oral Hospital Tablet Pramipexole Di-Hcl 24 HR quetiapine Quetiapine TABL 1 ORAL completed [facility] 400 MG Extended Fumarate ET, {Capsu [place] Release Oral EXTE le} Hospita l Tablet NDED Quetiapine RELE Fumarate ASE Lorazepam 1 MG Lorazepam TABL 1 mg ORAL completed White Oral Tablet ET [facility] Hyoscyamine Hyoscyamine TABL 1 ORAL completed [facility] Sulfate 0.125 MG Sulfate ET {Capsu [place] Oral Tablet le} [facility] [Levsin] quetiapine 100 Quetiapine TABL 100 mg ORAL completed [facility] MG Oral Tablet Fumarate ET [facility] Quetiapine Fumarate Calcium Calcium TABL 1 ORAL completed [facility] Carbonate 1250 Carbonate ET {Capsu [place] MG Oral Tablet le} Hospi heaven apixaban 2.5 MG Apixaban TABL 2.5 mg ORAL completed White Oral Tablet ET [place] [[facility]] [facility] Apiban febuxostat 40 MG Febuxostat TABL 40 mg ORAL completed White Oral Tablet ET [place] [Uloric] [facility] Febuxostat aripiprazole 30 Aripiprazole TABL 30 mg ORAL completed White MG Oral Tablet ET [facility] [Abilif] [facility] Aripiprazole Aspirin 325 MG Aspirin TABL 325 mg ORAL completed [facility] Oral Tablet ET [place] [[place] Aspir[facility]] Hosp ital Lorazepam 1 MG Lorazepam TABL 1 mg ORAL completed White Oral Tablet ET [facility] Folic Acid TABL 1 mg ORAL completed [facility] quetiapine 200 Quetiapine TABL 200 mg ORAL completed [facility] MG Oral Tablet Fumarate ET [facility] Fumarate Quetiapine 200 mg ORAL completed Wh ite [facility] apixaban 2.5 MG Apixaban TABL 2.5 mg ORAL completed White Oral Tablet ET [place] [[facility]] [facility] Apixaban 24 HR quetiapine Quetiapine TABL 400 mg ORAL completed [facility] 400 MG Extended Fumarate ET, [place] Release Oral EXTE Hospita l Tablet NDED Quetiapine RELE Fumarate ASE 24 HR quetiapine Quetiapine TABL 200 mg ORAL completed [facility] 400 MG Extended Fumarate ET, [place] Release Oral EXTE Hospita l Tablet NDED Quetiapine RELE Fumarate ASE Hydroxyzine Hydroxyzine CAPS 50 mg ORAL completed White Pamoate 50 MG Pamoate ULE [place] [facility] Oral Capsule [facility]ospita [facility] Omeprazole 0.667 Omeprazole 40 mg ORAL completed [facility] MG/ML Oral Magnesium [facility] [Prilosec] Omeprazole Magnesium Amylases [id number] Amylase/Lipase/P CAPS [id number] ORAL completed White UNT / rotease ULE, [place] Endopeptidases DANTE [facility] 22179 UNT / YED Lipase 31419 UNT RELE Delayed Release ASE Oral Capsule [Creon] Amylase/Lipase/P rotease Warfarin Sodium Warfarin Sodium TABL 4 mg ORAL completed [facility] 4 MG Oral Tablet ET [facility] Omeprazole 0.667 Omeprazole 40 mg ORAL completed [facility] MG/ML Oral Magnesium [facility] [Prilosec] Omeprazole Magnesium Warfarin Sodium Warfarin Sodium TABL 4 mg ORAL completed [facility] 4 MG Oral Tablet ET [facility] Omeprazole 40 MG Omeprazole CAPS 40 mg ORAL completed White Delayed Release ULE, [facility] Oral Capsule DANTE Hospita l YED RELE ASE apixaban 2.5 MG Apixaban TABL 2.5 mg ORAL completed [facility] Oral Table[facility] [place] [facility] Apixaban 24 HR quetiapine Quetiapine TABL 400 mg ORAL completed [facility] 400 MG Extended Fumarate ET, [place] Release Oral EXTE Hospita l Tablet NDED Quetiapine RELE Fumarate ASE Calcium Calcium TABL 1 ORAL completed Whit e Carbonate 1250 Carbonate ET {Capsu [place] MG Oral Tablet le} [facility] quetiapine 100 Quetiapine TABL 100 mg ORAL completed [facility] MG Oral Tablet Fumarate ET [facility] Fumarate Vitamin B 12 1 Cyanocobalamin TABL 1000 ORAL completed [facility] MG Oral Tablet ET [facility] [place] [facility] Cyanocobalamin [facility] Pravastatin Pravastatin TABL 40 mg ORAL completed [facility] Sodium 20 MG Sodium ET [facility] Hydromorphone Hydromorphone TABL 4 mg ORAL completed [facility] Hydrochloride 4 Hcl ET Plai ns MG Oral Tablet Hospi [facility] Hydromorphone Hcl Pramipexole Pramipexole TABL 0.5 mg ORAL completed [facility] dihydrochloride Dihydrochloride ET [place] 0.25 MG Oral Hospita l Tablet [Mirapex] Pramipexole Dihydrochloride 24 HR quetiapine Quetiapine TABL 400 mg ORAL completed [facility] 400 MG Extended Fumarate ET, [place] Release Oral EXTE Hospita l Tablet NDED Quetiapine RELE Fumarate ASE Omeprazole 0.667 Omeprazole 40 mg ORAL completed [facility] MG/ML Oral Magnesium [facility] [Prilose] Omeprazole Magnesium 12 HR Carbamazepine SUST 300 mg ORAL completed White Carbamazepine TAMEKA [place] 200 MG Extended D Hosp ital Release Oral RELE Tablet ASE [Tegretol] TABL ET Pramipexole Pramipexole TABL 0.5 mg ORAL completed [facility] dihydrochloride Dihydrochloride ET [place] 0.25 MG Oral Hospita l Tablet [Mirapex] Pramipexole Dihydrochloride Folic Acid 0.8 Folic Acid TABL 0.8 mg ORAL completed [facility] MG Oral Tablet ET [facility] Amylases [id number] Amylase/Lipase/P CAPS 2 ORAL completed White UNT / rotease ULE, {Capsu [place] Endopeptidases DANTE le} Hospi [facility] 03099 UNT / YED Lipase 03436 UNT RELE Delayed Release ASE Oral Capsule [Creon] Amylase/Lipase/P rotease Warfarin Sodium Warfarin Sodium TABL 2 mg ORAL completed [facility] 2 MG Oral Tablet ET [place] [facility] [Coumadin] [facility] Levothyroxine Levothyroxine TABL 150 ug ORAL completed [facility] Sodium 0.15 MG Sodium ET [place] [facility]t [facility] Warfarin Sodium Warfarin Sodium TABL 4 mg ORAL completed [facility] 4 MG Oral Tablet ET [facility] Pravastatin Pravastatin TABL 40 mg ORAL completed [facility] Sodium 20 MG Sodium ET [facility] Amylases [id number] Amylase/Lipase/P CAPS 2 ORAL completed White UNT / rotease ULE, {Capsu [place] Endopeptidases DANTE le} Hospi [facility] 41679 UNT / YED Lipase 91389 UNT RELE Delayed Release ASE Oral Capsule [Creon] Amylase/Lipase/P rotease Pramipexole Pramipexole TABL 0.5 mg ORAL completed [facility] dihydrochloride Di-Hcl ET Pl ains 0.5 MG Oral Hospital Tablet Pramipexole Di-Hcl 24 HR Propranolol Hcl CONT 160 mg ORAL completed [facility] Propranolol ROLL [place] Hydrochloride 80 ED [facility] MG Extended RELE Release Oral ASE Capsule CAPS Propranolol Hcl ULE Omeprazole 0.667 Omeprazole 40 mg ORAL completed [facility] MG/ML Oral Magnesium [facility] Omeprazole Magnesium Hyoscyamine Hyoscyamine TABL ORAL completed [facility] Sulfate 0.125 MG Sulfate ET [place] [facility] Oral Tablet [Symax] Furosemide 80 MG Furosemide TABL 80 mg ORAL completed [facility] Oral Tablet ET [place] [facility] 24 HR quetiapine Quetiapine TABL 400 completed [facility] 400 MG Extended Fumarate ET, [place] Release Oral EXTE Hospita l Tablet NDED Quetiapine RELE Fumarate ASE Meclizine Meclizine Hcl TABL 25 mg ORAL completed [facility] Hydrochloride 25 ET [place] MG Oral Tablet [facility] Meclizine Hcl Hydromorphone Hydromorphone TABL 4 mg ORAL completed [facility] Hydrochloride 4 Hcl ET [facility] MG Oral Tablet [facility] Hydromorphone Hcl Amylases 928852 Amylase/Lipase/P CAPS 2 ORAL completed [facility] UNT / rotease ULE, {Capsu [place] Endopeptidases DANTE le} [facility]pi [facility] 40183 UNT / YED Lipase 19878 UNT RELE Delayed Release ASE Oral Capsule [Creon] Amylase/Lipase/P rotease 24 HR quetiapine Quetiapine TABL 400 mg ORAL completed [facility] 400 MG Extended Fumarate ET, [place] Release Oral EXTE Hospita [facility] Tablet NDED Quetiapine RELE Fumarate ASE 24 HR Propranolol Hcl CONT 160 mg ORAL completed [facility] Propranolol ROLL [place] Hydrochloride 80 ED [facility] MG Extended RELE Release Oral ASE Capsule CAPS Propranolol Hcl ULE Omeprazole 0.667 Omeprazole 40 mg ORAL completed [facility] MG/ML Oral Magnesium [facility] [Prilose] Omeprazole Magnesium Quetiapine 200 mg ORAL completed Wh ite Fumarate [place] [facility] Hydroxyzine Hydroxyzine CAPS 50 mg ORAL completed [facility] Pamoate 50 MG Pamoate ULE [place] Oral Capsule Hospita [facility] [Vistaril] Pravastatin Pravastatin TABL 40 mg ORAL completed [facility] Sodium 20 MG Sodium [facility] Warfarin Sodium Warfarin Sodium TABL 2 mg ORAL completed [facility] 2 MG Oral Tablet ET [place] [facility] [Coumadin] [facility] febuxostat 40 MG Febuxostat TABL 40 mg ORAL completed [facility] Oral Tablet ET [place] [Ulor[facility] Febuxostat febuxostat 40 MG Febuxostat TABL 40 mg ORAL completed [facility] Oral Tablet ET [place] [[facility] Febuxostat Levothyroxine Levothyroxine TABL 150 ug ORAL completed [facility] Sodium 0.15 MG Sodium ET [place] [facility] Oral Tablet [facility] sevelamer Sevelamer TABL 800 mg ORAL completed [facility] carbonate 800 MG Carbonate ET [place] [facility] [Renvela] Sevelamer Carbonate Omeprazole 0.667 Omeprazole 40 mg ORAL completed [facility] MG/ML Oral Magnesium [facility] [Prilosec] Omeprazole Magnesium montelukast 10 Montelukast TABL 10 mg ORAL completed [facility] MG Oral Tablet Sodium ET [place] [facility] [Singulair] Hospital Montelukast Sodium montelukast 10 Montelukast TABL 10 mg ORAL completed [facility] MG Oral Tablet Sodium ET [place] [facility] [Singulair] [facility] Montelukast Sodium 12 HR Carbamazepine TABL 300 mg ORAL completed [facility] Carbamazepine ET, [place] 100 MG Extended EXTE Hosp ital Release Oral NDED Tablet RELE ASE Pramipexole Pramipexole TABL 0.5 mg ORAL completed [facility] dihydrochloride Dihydrochloride ET [place] 0.25 MG Oral Hospita l Tablet [Mirapex] Pramipexole Dihydrochloride Insurance Providers Payer name Policy type Policy ID Covered Covered republican's Policy P jackie / Coverage republican ID relationship to [place] Inf ormation type [place] MEDICARE [id number] SP [id number] MEDICAID [id number] SP [id number] SP [id number] MEDICARE [id number] SP [id number] [employer]MR[employer] [id number] PT [id number] MEDICARE [id number] PT [id number] [id number] POMCO [id number] PT [id number] MEDICARE [id number] PT [id number] A POMCO [id number] PT [id number] [facility] [id number] PT [id number] [place] [id number] PT [id number] 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 [facility] [place] disease of [place] 08:02:00 PM Hospit al coronary artery EDT without angina pectoris 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 Diagnosis 04/21/2020 [place] dialysis 08:02:00 PM Hospital EDT I50.9 Heart failure, I50.9 Diagnosis 04/21/2020 [place] unspecified 08:02:00 PM Hospital EDT I13.2 Hypertensive heart and I13.2 Diagnosis 04/21/2020 Wh [facility] [place] chronic kidney disease 08:02:00 PM H ospital with heart failure and EDT with stage 5 chronic kidney disease, or end stage renal disease F25.9 Schizoaffective F25.9 Diagnosis 04/21/2020 [facility] [place] disorder, unspecified 08:02:00 PM Ho spital EDT F31.9 Bipolar disorder, F31.9 Diagnosis 04/21/2020 [place] unspecified 08:02:00 PM Hospital EDT K86.89 Other specified K86.89 Diagnosis 04/21/2020 [facility] [place] diseases of pancreas 08:02:00 PM Hos pital EDT N18.6 End stage renal N18.6 Diagnosis 04/21/2020 [facility] [place] disease 08:02:00 PM Hospital EDT I48.0 Paroxysmal atrial I48.0 Diagnosis 04/21/2020 [place] fibrillation 08:02:00 PM Hospital EDT G92 Toxic encephalopathy G92 Diagnosis 04/21/2020 [facility] [place] 08:02:00 PM Hospital EDT R41.82 Altered mental status, R41.82 Diagnosis 04/21/2020 Wh [facility] [place] unspecified 08:02:00 PM Hospital EDT R07.9 Chest pain, R07.9 Diagnosis 04/21/2020 [place] unspecified 08:02:00 PM Hospital EDT Z87.11 Personal history of Z87.11 Diagnosis 04/21/2020 [place] peptic ulcer disease 08:02:00 PM Hos pital EDT Z91.5 Personal history of Z91.5 Diagnosis 04/21/2020 [place] self-harm 08:02:00 PM Hospital EDT Z88.1 Allergy status to Z88.1 Diagnosis 04/21/2020 [place] other antibiotic 08:02:00 PM Hospita l agents status EDT Z87.891 Personal history of Z87.891 Diagnosis 04/21/2020 [place] nicotine dependence 08:02:00 PM Hosp ital EDT Z85.3 Personal history of Z85.3 Diagnosis 04/21/2020 [place] malignant neoplasm of 08:02:00 PM Ho spital breast EDT Z20.828 Contact with and Z20.828 Diagnosis 04/21/2020 [place] (suspected) exposure 08:02:00 PM Hos pital to other viral EDT communicable diseases Z79.891 jail (current) Z79.891 Diagnosis 04/21/2020 [place] use of opiate 08:02:00 PM Hospital analgesic EDT E03.9 Hypothyroidism, E03.9 Diagnosis 04/21/2020 [place] unspecified 08:02:00 PM Hospital EDT E78.5 Hyperlipidemia, E78.5 Diagnosis 04/21/2020 [place] unspecified 08:02:00 PM Hospital EDT J44.9 Chronic obstructive J44.9 Diagnosis 04/21/2020 [place] pulmonary disease, 08:02:00 PM [facility] unspecified EDT Z88.2 Allergy status to Z88.2 Diagnosis 03/26/2020 [place] sulfonamides status 10:52:00 AM Hosp ital EDT Z98.84 Bariatric surgery Z98.84 Diagnosis 03/26/2020 [place] status 10:52:00 AM Hospital EDT G25.81 Restless legs syndrome G25.81 Diagnosis 03/26/2020 [facility] [place] 10:52:00 AM Hospital EDT G89.29 Other chronic pain G89.29 Diagnosis 03/26/2020 [place] 10:52:00 AM Hospital EDT Z53.29 Procedure and Z53.29 Diagnosis 03/26/2020 [place] treatment not carried 10:52:00 AM Ho spital out because of EDT patient's decision for other reasons Z91.14 Patient's other Z91.14 Diagnosis 03/26/2020 [facility] [place] noncompliance with 10:52:00 AM [facility] medication regimen EDT F43.20 Adjustment disorder, F43.20 Diagnosis 03/26/2020 [facility] [place] unspecified 10:52:00 AM Hospital EDT M54.5 Low back pain M54.5 Diagnosis 03/26/2020 [place] 10:52:00 AM Hospital EDT M54.2 Cervicalgia M54.2 Diagnosis 03/26/2020 [place] 10:52:00 AM Hospital EDT E11.22 Type 2 diabetes E11.22 Diagnosis 03/26/2020 [place] mellitus with diabetic 10:52:00 AM H ospital chronic kidney disease EDT Z11.59 Encounter for Z11.59 Diagnosis 03/26/2020 [place] screening for other 10:52:00 AM Hosp ital viral diseases EDT I48.91 Unspecified atrial I48.91 Diagnosis 03/26/2020 [place] fibrillation 10:52:00 AM Hospital EDT 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 F60.3 Diagnosis 03/26/2020 [facility] [place] disorder 10:52:00 AM Hospital EDT R45.851 Suicidal ideations R45.851 Diagnosis 03/26/2020 [place] 10:52:00 AM Hospital EDT I12.0 Hypertensive chronic I12.0 Diagnosis 03/26/2020 [facility] [place] kidney disease with 10:52:00 AM Hosp ital stage 5 chronic kidney EDT disease or end stage renal disease R55 Syncope and collapse R55 Diagnosis 02/23/2020 [facility] [place] 11:43:00 AM Hospital EDT M25.569 Pain in unspecified M25.569 Diagnosis 02/23/2020 [place] knee 11:43:00 AM Hospital EDT R09.02 Hypoxemia R09.02 Diagnosis 02/08/2020 [place] 11:02:00 PM Hospital EDT E87.70 Fluid overload, E87.70 Diagnosis 02/08/2020 [place] unspecified 11:02:00 PM Hospital EDT M79.609 Pain in unspecified M79.609 Diagnosis 01/21/2020 [place] limb 11:27:00 AM Hospital EDT M54.9 Dorsalgia, unspecified M54.9 Diagnosis 01/21/2020 [facility]e [place] 11:27:00 AM Hospital EDT M48.10 Ankylosing M48.10 Diagnosis 01/17/2020 [place] hyperostosis 12:41:00 PM Hospital [[facility]], site EDT unspecified D63.1 Anemia in chronic D63.1 Diagnosis 01/17/2020 [place] kidney disease 12:41:00 PM Hospital EDT E87.5 Hyperkalemia E87.5 Diagnosis 01/17/2020 [place] 12:41:00 PM Hospital EDT E83.51 Hypocalcemia E83.51 Diagnosis 01/17/2020 [place] 12:41:00 PM Hospital EDT G89.4 Chronic pain syndrome G89.4 Diagnosis 01/17/2020 [facility] te [place] 12:41:00 PM Hospital EDT Z87.01 Personal history of Z87.01 Diagnosis 01/17/2020 [place] pneumonia (recurrent) 12:41:00 PM Ho spital EDT E87.79 Other fluid overload E87.79 Diagnosis 01/17/2020 [facility] [place] 12:41:00 PM Hospital EDT J96.01 Acute respiratory J96.01 Diagnosis 01/17/2020 [place] failure with hypoxia 12:41:00 PM Hos pital EDT Y99.9 Unspecified external Y99.9 Diagnosis 01/14/2020 [facility] [place] cause status 07:48:00 AM Hospital EDT Y93.9 Activity, unspecified Y93.9 Diagnosis 01/14/2020 i te [place] 07:48:00 AM Hospital EDT W19.XXXA Unspecified fall, W19.XXXA Diagnosis 01/14/2020 [place] initial encounter 07:48:00 AM Hospit al EDT Y92.000 Kitchen of unspecified Y92.000 Diagnosis 01/14/2020 [facility] [place] non-institutional 07:48:00 AM Hospit al (private) residence as EDT the place of occurrence of the external cause Z88.8 Allergy status to Z88.8 Diagnosis 01/14/2020 [place] other drugs, 07:48:00 AM Hospital medicaments and EDT biological substances status Z88.6 Allergy status to Z88.6 Diagnosis 01/14/2020 [place] analgesic agent status 07:48:00 AM H ospital EDT N25.0 Renal osteodystrophy N25.0 Diagnosis 01/14/2020 [facility] [place] 07:48:00 AM Hospital EDT S20.212A Contusion of left S20.212A Diagnosis 01/14/2020 [place] front wall of thorax, 07:48:00 AM Ho spital initial encounter EDT T41.3X5A Adverse effect of T41.3X5A Diagnosis 12/07/2019 [place] local anesthetics, 05:51:00 PM [facility] initial encounter EDT E87.2 Acidosis E87.2 Diagnosis 12/07/2019 [place] 05:51:00 PM Hospital EDT T82.868A Thrombosis due to T82.868A Diagnosis 12/07/2019 [place] vascular prosthetic 05:51:00 PM Hosp ital devices, implants and EDT grafts, initial encounter R00.1 Bradycardia, R00.1 Diagnosis 12/07/2019 [place] unspecified 05:51:00 PM Hospital EDT E83.39 Other disorders of OTHER DISORDERS Diagnosis 11/26/2019 [facility] phosphorus metabolism OF PHOSPHORUS 06:15:00 PM [facility] METABOLISM EDT Care [employer] [email or web address] Anemia in other ANEMIA IN OTHER Diagnosis 11/26/2019 [place] chronic diseases CHRONIC DISEASES 06:15:00 PM [facility] classified elsewhere CLASSIFIED EDT Care ELSEWHERE Corporation Z53.29 Procedure and PROC/TRTMT NOT Diagnosis 11/26/2019 [facility] treatment not carried CRD OUT BEC PT 06:15:00 P [facility] out because of DECISION FOR OTH EDT Care patient's decision for REASONS Co rporation other reasons Z95.818 Presence of other PRESENCE OF OTHER Diagnosis 11/26/2019 [place] cardiac implants and CARDIAC IMPLANTS 06:15:00 PM [facility] grafts AND GRAFTS EDT Care Corporation R40.1982 [place] coma scale CAROL COMA Diagnosis 11/26/2019 [place] score 13-15, at SCALE SCORE 06:15:00 PM [facility] arrival to emergency 13-15, EMR EDT Care department Corporation Z91.81 History of falling HISTORY OF Diagnosis 11/26/2019 [place] FALLING 06:15:00 PM [facility] EDT Care Corporation Z86.73 Personal history of PRSNL HX OF TIA Diagnosis 11/26/2019 [place] transient ischemic (TIA), AND CEREB 06:15:00 PM [facility] attack (TIA), and INFRC W/O RESID EDT Ca re cerebral infarction DEFICITS Corpo ration without residual deficits Z87.891 Personal history of PERSONAL HISTORY Diagnosis 11/26/2019 [place] nicotine dependence OF NICOTINE 06:15:00 PM Cou [facility] [employer] DEPENDENCE EDT Care Corporation Z98.84 Bariatric surgery BARIATRIC SURGERY Diagnosis 11/26/2019 [place] status STATUS 06:15:00 PM [facility] EDT Care Corporation Z92.21 Personal history of PERSONAL HISTORY Diagnosis 11/26/2019 [place] antineoplastic OF ANTINEOPLASTIC 06:15:00 PM Co [employer] chemotherapy CHEMOTHERAPY EDT Care [employer] [id number] Personal history of PERSONAL HISTORY Diagnosis 11/26/2019 [place] malignant neoplasm of OF MALIGNANT 06:15:00 PM [facility] breast NEOPLASM OF EDT [facility] BREAST Corporation 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 11/26/2019 [facility] dialysis RENAL DIALYSIS 06:15:00 PM [facility] EDT Care [employer] [id number] Exposure to other EXPOSURE TO OTHER Diagnosis 11/26/2019 [place] specified factors, SPECIFIED 06:15:00 PM [facility] initial encounter FACTORS, INITIAL EDT C are ENCOUNTER Corporation Y92.[address] in OTH PLACE IN Diagnosis 11/26/2019 [facility] apartment as the place APARTMENT 06:15:00 PM [facility] of occurrence of the PLACE EDT Care external cause Corporatio n W18.39XA Other fall on same OTHER FALL ON Diagnosis 11/26/2019 [place] level, initial SAME LEVEL, 06:15:00 PM [facility] ealth encounter INITIAL ENCOUNTER EDT Care [employer] [email or web address] Restless legs syndrome RESTLESS LEGS Diagnosis 11/26/2019 [place] SYNDROME 06:15:00 PM [facility] EDT Care Corporation E03.8 Other specified OTHER SPECIFIED Diagnosis 11/26/2019 [place] hypothyroidism HYPOTHYROIDISM 06:15:00 PM [facility] EDT Care Corporation 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 Diagnosis 11/26/2019 [place] hyperostosis HYPEROSTOSIS 06:15:00 PM [facility] alth [[place]], site ([facility]ESTIER), SITE EDT Care unspecified UNSPECIFIED Corporation F43.10 Post-traumatic stress POST-TRAUMATIC Diagnosis 11/26/2019 [place] disorder, unspecified STRESS DISORDER, 06:15:00 PM [facility] UNSPECIFIED EDT Care [employer] 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 BORDERLINE Diagnosis 11/26/2019 [place] disorder PERSONALITY 06:15:00 PM [facility] DISORDER EDT Care [facility] S01.01XA Laceration without LACERATION Diagnosis 11/26/2019 [place] foreign body of scalp, WITHOUT FOREIGN 06:15:00 PM [facility] initial encounter BODY OF SCALP, EDT Car e INITIAL ENCOUNTER Corpora tion G62.9 Polyneuropathy, POLYNEUROPATHY, Diagnosis 11/26/2019 [place] unspecified [facility]NSPECIFIED 06:15:00 [facility] KeyOwner M10.9 Gout, unspecified GOUT, UNSPECIFIED Diagnosis 11/26/2019 [place] 06:15:00 PM [facility] hospital[facility] KeyOwner [id number] Ventricular VENTRICULAR Diagnosis 11/26/2019 [place] tachycardia TACHYCARDIA 06:15:00 [facility] KeyOwner F31.89 Other bipolar disorder OTHER BIPOLAR Diagnosis 11/26/2019 [place] DISORDER 06:15:00 PM [facility] hospital[facility] KeyOwner I12.0 Hypertensive chronic HYP CHR KIDNEY Diagnosis 11/26/2019 [place] kidney disease with DISEASE W STAGE 5 06:15:00 PM [facility] stage 5 chronic kidney CHR KIDNEY EDT Ca re disease or end stage DISEASE OR ESRD Corporation renal disease N18.6 End stage renal END STAGE RENAL Diagnosis 11/26/2019 [place] disease DISEASE 06:15:00 PM [facility] access hospitalT [facility] KeyOwner [id number] Syncope and collapse SYNCOPE AND Diagnosis 11/22/2019 [place] COLLAPSE 11:37:00 PM [facility] access hospitalT [facility] KeyOwner [email or web address] Anemia, unspecified D64.9 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/13/2019 [place] 09:29:00 PM Hospital EST K29.00 Acute gastritis K29.00 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/13/2019 [place] without bleeding 09:29:00 PM Hospita l EST Z79.899 Other senior living Z79.899 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/13/2019 [place] (current) drug therapy 09:29:00 PM H ospital EST K82.8 Other specified K82.8 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/13/2019 [place] diseases of 09:29:00 PM Hospital gallbladder EST K44.9 Diaphragmatic hernia K44.9 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/13/2019 [place] without obstruction or 09:29:00 PM H ospital gangrene EST K21.0 Gastro-esophageal K21.0 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/13/2019 [place] reflux disease with 09:29:00 PM Hosp ital esophagitis EST F41.9 Anxiety disorder, F41.9 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/13/2019 [place] unspecified 09:29:00 PM Hospital EST I44.7 Left bundle-branch I44.7 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/13/2019 [place] block, unspecified 09:29:00 PM [facility]pi [facility] EST K22.10 Ulcer of esophagus K22.10 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/13/2019 [place] without bleeding 09:29:00 PM Hospita l EST B37.81 Candidal esophagitis B37.81 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/13/2019 [facility] [place] 09:29:00 PM Hospital EST K28.4 Chronic or unspecified K28.4 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/13/2019 [facility] gastrojejunal ulcer 09:29:00 PM Hosp ital with hemorrhage EST K58.9 Irritable bowel K58.9 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/04/2019 [place] syndrome without 05:02:00 AM Hospita l diarrhea EST K92.2 Gastrointestinal K92.2 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/04/2019 [place] hemorrhage, 05:02:00 AM Hospital unspecified EST M10.9 Gout, unspecified M10.9 Diagnosis 08/25/2019 [place] 01:02:00 PM Hospital EST F41.8 Other specified F41.8 Diagnosis 08/25/2019 [place] anxiety disorders 01:02:00 PM Hospit al EST Y92.230 Patient room in Y92.230 Diagnosis 07/15/2019 [facility] 02:27:00 AM Ho spital of occurrence of the EST external cause T38.0X5A Adverse effect of T38.0X5A Diagnosis 07/15/2019 [place] glucocorticoids and 02:27:00 AM Hosp ital synthetic analogues, EST initial encounter F29 Unspecified psychosis F29 Diagnosis 07/15/2019 [facility] [place] not due to a substance 02:27:00 AM H ospital or known physiological EST condition J44.1 Chronic obstructive J44.1 Diagnosis 07/15/2019 [place] pulmonary disease with 02:27:00 AM H ospital (acute) exacerbation EST 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/15/2019 [place] hyperparathyroidism of 02:27:00 AM H ospital renal origin EST 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 02:27:00 AM Hospit al EST J96.02 Acute respiratory J96.02 Diagnosis 07/15/2019 [place] failure with 02:27:00 AM Hospital hypercapnia EST J18.9 Pneumonia, unspecified J18.9 Diagnosis 07/15/2019 [facility] [place] organism 02:27:00 AM Hospital EST J44.0 Chronic obstructive J44.0 Diagnosis 07/15/2019 [place] pulmonary disease with 02:27:00 AM H ospital acute lower EST respiratory infection R45.1 Restlessness and R45.1 Diagnosis 07/15/[address] [place] agitation 02:27:00 AM Hospital EST Z79.82 jail (current) Z79.82 Diagnosis 07/15/2019 [place] use of aspirin 02:27:00 AM Hospital EST M41.9 Scoliosis, unspecified M41.9 Diagnosis 07/15/2019 [facility] [place] 02:27:00 AM Hospital EST K58.0 Irritable bowel K58.0 Diagnosis 07/15/2019 [place] syndrome with diarrhea 02:27:00 AM H ospital EST G20 Parkinson's disease G20 Diagnosis 07/15/2019 [place] 02:27:00 AM Hospital EST M81.0 Age-related M81.0 Diagnosis 07/15/2019 [place] osteoporosis without 02:27:00 AM Hos pital current pathological EST fracture F12.90 Cannabis use, F12.90 Diagnosis 07/15/2019 [place] unspecified, 02:27:00 AM Hospital uncomplicated EST E11.649 Type 2 diabetes E11.649 Diagnosis 07/15/2019 [place] mellitus with 02:27:00 AM Hospital hypoglycemia without EST coma D63.8 Anemia in other D63.8 Diagnosis 07/15/2019 [place] chronic diseases 02:27:00 AM Hospita l classified elsewhere EST G62.9 Polyneuropathy, G62.9 Diagnosis 07/15/2019 [place] unspecified 02:27:00 AM Hospital EST D69.6 Thrombocytopenia, D69.6 Diagnosis 07/15/2019 [place] unspecified 02:27:00 AM Hospital EST F40.240 Claustrophobia F40.240 Diagnosis 07/15/2019 [place] 02:27:00 AM Hospital EST R11.2 Nausea with vomiting, R11.2 Diagnosis 07/02/2019 [facility] [place] unspecified 09:30:00 PM Hospital EST Z95.818 Presence of other Z95.818 Diagnosis 05/22/2019 [place] cardiac implants and 11:22:00 AM Hos pital grafts EDT H53.8 Other visual H53.8 Diagnosis 05/19/2019 [place] disturbances 06:20:00 PM Hospital EDT R51 Headache R51 Diagnosis 05/19/2019 [place] 06:20:00 PM Hospital EDT M79.632 Pain in left forearm M79.632 Diagnosis 05/07/2019 [place] 03:37:00 PM Hospital EDT Z86.73 Personal history of Z86.73 Diagnosis 04/21/2019 [place] transient ischemic 07:20:00 AM [facility] attack (TIA), 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 Z91.81 History of falling Z91.81 Diagnosis 04/21/2019 [place] 07:20:00 AM Hospital EDT I73.9 Peripheral vascular I73.9 Diagnosis 04/21/2019 [place] disease, unspecified 07:20:00 AM Hos pital EDT R29.6 Repeated falls R29.6 Diagnosis 04/21/2019 [place] 07:20:00 AM Hospital EDT Z91.11 Patient's Z91.11 Diagnosis 04/19/2019 [place] noncompliance with 06:25:00 PM [facility] dietary regimen EDT Z79.02 jail (current) Z79.02 Diagnosis 04/19/2019 [place] use of 06:25:00 PM Hospital antithrombotics/antipl EDT atelets I48.20 I48.20 I48.20 Diagnosis 04/19/2019 [place] 06:25:00 PM Hospital EDT I50.33 Acute on chronic I50.33 Diagnosis 04/19/[address] [place] diastolic (congestive) 06:25:00 PM H ospital heart failure EDT Surgeries/Procedures Procedure Description Date Indications Data Source(s) Physical therapy procedure 04/23/2020 [facility] [place] (regime/therapy) 12:00:00 AM Hospital EDT Plain chest X-ray (procedure) 04/22/2020 [place] 12:00:00 AM Hospital EDT Electrocardiographic procedure 04/22/2020 [place] (procedure) 12:00:00 AM Hospital EDT Computed tomography of head 04/22/2020 [place] without contrast 12:00:00 AM Hospital EDT Echocardiography (procedure) 04/22/2020 [place] 12:00:00 AM Hospital EDT Electrocardiographic procedure 04/21/2020 [place] (procedure) 12:00:00 AM Hospital EDT Computed tomography of abdomen 04/21/2020 [place] and pelvis without contrast 12:00:00 AM Hospital EDT Electrocardiographic procedure 04/21/2020 [place] (procedure) 12:00:00 AM Hospital EDT Computed tomography of head 03/31/2020 [place] without contrast 12:00:00 AM Hospital EDT Nebulizer therapy (procedure) 03/31/2020 [place] 12:00:00 AM Hospital EDT Pelvic echography (procedure) 03/31/2020 [place] 12:00:00 AM Hospital EDT Computed tomography of head 03/31/2020 [place] without contrast 12:00:00 AM Hospital EDT Nebulizer therapy (procedure) 03/31/2020 [place] 12:00:00 AM Hospital EDT Pelvic echography (procedure) 03/31/2020 [place] 12:00:00 AM Hospital EDT Physical therapy procedure 03/28/2020 [facility] [place] (regime/therapy) 12:00:00 AM Hospital EDT Physical therapy procedure 03/28/2020 [facility] [place] (regime/therapy) 12:00:00 AM Hospital EDT PERFORMANCE OF URINARY 03/27/2020 [place] FILTRATION, <6 HRS/DAY 12:00:00 [facility] Electrocardiographic procedure 03/25/2020 [place] (procedure) 12:[facility] EDT Electrocardiographic procedure 03/25/2020 [place] (procedure) 12:00:00 AM [facility] EDT X-ray of both knees 02/23/[address] [place] (procedure) 12:00:00 AM [facility] EDT Plain chest X-ray (procedure) 02/23/2020 [place] 12:00:00 AM [facility] EDT Electrocardiographic procedure 02/23/2020 [place] (procedure) 12:00:00 AM [facility] EDT Computed tomography of head 02/23/2020 [place] without contrast 12:00:00 AM Hospital EDT Plain chest X-ray (procedure) 02/08/2020 [place] 12:00:00 AM [facility] EDT Electrocardiographic procedure 02/08/2020 [place] (procedure) 12:00:00 AM Hospital EDT HOSPITAL OBSERVATION PER HR 02/08/2020 [place] 12:00:00 AM [facility] EDT X-ray exam chest 1 view 02/08/2020 [place] 12:00:00 AM [facility] EDT Electrocardiogram tracing 02/08/2020 [facility] [place] 12:00:00 AM [facility] EDT Assay of natriuretic peptide 02/08/2020 [place] 12:00:00 AM [facility] EDT Assay of troponin qual 02/08/2020 [place] 12:00:00 AM [facility] EDT Comprehen metabolic panel 02/08/2020 [facility] [place] 12:00:00 AM [facility] EDT Comprehen metabolic panel 02/08/2020 [facility] [place] 12:00:00 AM [facility] EDT Mr-staph dna amp probe 02/08/2020 [place] 12:00:00 AM [facility] EDT SARS-COV-2 COVID-19 AMP PRB 02/08/2020 [place] 12:00:00 AM [facility] EDT Complete cbc automated 02/08/2020 [place] 12:00:00 AM [facility] EDT Plain chest X-ray (procedure) 02/08/2020 [place] 12:00:00 AM [facility] EDT Electrocardiographic procedure 02/08/2020 [place] (procedure) 12:00:00 AM [facility] EDT Complete cbc w/auto diff wbc 02/08/2020 [place] 12:00:00 AM [facility] EDT Blood gases any combination 02/08/2020 [place] 12:00:00 AM [facility] EDT Emergency dept visit 02/08/2020 [place] 12:00:00 AM [facility] EDT Physical therapy procedure 01/21/2020 [facility] [place] (regime/therapy) 12:00:00 AM [facility] EDT Electrocardiographic procedure 01/21/2020 [place] (procedure) 12:00:00 AM [facility] EDT Diagnostic radiography of 01/21/2020 [facility] [place] abdomen (procedure) 12:00:00 AM Hospital EDT Plain chest X-ray (procedure) 01/21/2020 [place] 12:00:00 AM [facility] EDT Pt eval low complex 20 min 01/21/2020 [facility] [place] 12:00:00 AM [facility] EDT X-ray exam chest 1 view 01/21/2020 [place] [facility] [place] 12:00:00 AM [facility] EDT X-ray exam abdomen 2 views 01/21/2020 [facility] [place] 12:00:00 AM [facility] EDT Assay of troponin qual 01/21/2020 [place] 12:00:00 AM [facility] EDT Assay of lipase 01/21/2020 [place] 12:00:00 AM [facility] EDT Assay of lactic acid 01/21/2020 [place] 12:00:00 AM [facility] EDT Comprehen metabolic panel 01/21/2020 [facility] [place] 12:00:00 AM [facility] EDT Blood culture for bacteria 01/21/2020 [facility] [place] 12:00:00 AM [facility] EDT Mr-staph dna amp probe 01/21/2020 [place] 12:00:00 AM [facility] EDT SARS-COV-2 COVID-19 AMP PRB 01/21/2020 [place] 12:00:00 AM [facility] EDT Prothrombin time 01/21/2020 [place] 12:00:00 AM [facility] EDT Bl smear w/diff wbc count 01/21/2020 [facility] [place] 12:00:00 AM [facility] EDT Complete cbc automated 01/21/2020 [place] 12:00:00 AM [facility] EDT Thromboplastin time partial 01/21/2020 [place] 12:00:00 AM [facility] EDT Emergency dept visit 01/21/2020 [place] 12:00:00 AM [facility] EDT Plain chest X-ray (procedure) 01/21/2020 [place] 12:00:00 AM [facility] EDT Physical therapy procedure 01/21/2020 [facility] [place] (regime/therapy) 12:00:00 AM [facility] EDT Electrocardiographic procedure 01/21/2020 [place] (procedure) 12:00:00 AM [facility] EDT Diagnostic radiography of 01/21/2020 [facility] [place] abdomen (procedure) 12:00:00 AM Hospital EDT Physical therapy procedure 01/16/2020 [facility] [place] (regime/therapy) 12:00:00 AM Hospital EDT PERFORMANCE OF URINARY 01/16/2020 [place] FILTRATION, <6 HRS/DAY 12:00:00 [facility] Physical therapy procedure 01/16/2020 [facility] [place] (regime/therapy) 12:00:00 AM Hospital EDT Physical therapy procedure 01/16/2020 [facility] [place] (regime/therapy) 12:00:00 AM Hospital EDT Oxygen therapy (procedure) 01/15/2020 [facility] [place] 12:00:00 AM [facility] EDT Electrocardiographic procedure 01/15/2020 [place] (procedure) 12:00:00 AM [facility] EDT Plain chest X-ray (procedure) 01/15/2020 [place] 12:00:00 AM [facility] EDT Oxygen therapy (procedure) 01/15/2020 [facility] [place] 12:00:00 AM [facility] EDT Electrocardiographic procedure 01/15/2020 [place] (procedure) 12:00:00 AM [facility] EDT Plain chest X-ray (procedure) 01/15/2020 [place] 12:00:00 AM [facility] EDT Oxygen therapy (procedure) 01/15/2020 [facility] [place] 12:00:00 AM [facility] EDT Electrocardiographic procedure 01/15/2020 [place] (procedure) 12:00:00 AM Hospital EDT Plain chest X-ray (procedure) 01/15/2020 [place] 12:00:00 AM [facility] EDT Incentive spirometry 01/14/2020 [place] (regime/therapy) 12:00:00 AM Hospital EDT Computed tomography of head 01/14/2020 [place] without contrast 12:00:00 AM [facility] EDT Computed tomography of chest, 01/14/2020 [place] abdomen, and pelvis without 12:00:00 AM Hospital contrast EDT Electrocardiographic procedure 01/14/2020 [place] (procedure) 12:00:[address] abd & pelvis w/o contrast 01/14/2020 [place] 12:00:[address] head/brain w/o dye 01/14/2020 [place] 12:00:[address] thorax w/o dye 01/14/2020 [place] 12:00:00 AM [facility] EDT Electrocardiogram tracing 01/14/2020 [facility] [place] 12:00:00 AM [facility] EDT Assay of troponin qual 01/14/2020 [place] 12:00:00 AM [facility] EDT Reagent strip/blood glucose 01/14/2020 [place] 12:00:00 AM [facility] EDT Comprehen metabolic panel 01/14/2020 [facility] [place] 12:00:00 AM [facility] EDT Mr-staph dna amp probe 01/14/2020 [place] 12:00:00 AM [facility] EDT SARS-COV-2 COVID-19 AMP PRB 01/14/2020 [place] 12:00:00 AM [facility] EDT Prothrombin time 01/14/2020 [place] 12:00:00 AM [facility] EDT Bl smear w/diff wbc count 01/14/2020 [facility] [place] 12:00:00 AM [facility] EDT Complete cbc automated 01/14/2020 [place] 12:00:00 AM [facility] EDT Thromboplastin time partial 01/14/2020 [place] 12:00:00 AM [facility] EDT Emergency dept visit 01/14/2020 [place] 12:00:00 AM [facility] EDT Incentive spirometry 01/14/2020 [place] (regime/therapy) 12:00:00 AM Hospital EDT Computed tomography of head 01/14/2020 [place] without contrast 12:00:00 AM [facility] EDT Computed tomography of chest, 01/14/2020 [place] abdomen, and pelvis without 12:00:00 AM Hospital contrast EDT Electrocardiographic procedure 01/14/2020 [place] (procedure) 12:00:[address] abd & pelvis w/o contrast 01/14/2020 [place] 12:00:[address] head/brain w/o dye 01/14/2020 [place] 12:00:[address] thorax w/o dye 01/14/2020 [place] 12:00:00 AM [facility] EDT Electrocardiogram tracing 01/14/2020 [facility] [place] 12:00:00 AM [facility] EDT Assay of troponin qual 01/14/2020 [place] 12:00:00 AM [facility] EDT Reagent strip/blood glucose 01/14/2020 [place] 12:00:00 AM [facility] EDT Comprehen metabolic panel 01/14/2020 [facility] [place] 12:00:00 AM [facility] EDT Mr-staph dna amp probe 01/14/2020 [place] 12:00:00 AM [facility] EDT SARS-COV-2 COVID-19 AMP PRB 01/14/2020 [place] 12:00:00 AM [facility] EDT Prothrombin time 01/14/2020 [place] 12:00:00 AM [facility] EDT Bl smear w/diff wbc count 01/14/2020 [facility] [place] 12:00:00 AM [facility] EDT Complete cbc automated 01/14/2020 [place] 12:00:00 AM [facility] EDT Thromboplastin time partial 01/14/2020 [place] 12:00:00 AM [facility] EDT Emergency dept visit 01/14/2020 [place] 12:00:00 AM [facility] EDT Incentive spirometry 01/14/2020 [place] (regime/therapy) 12:00:00 AM [facility] EDT Computed tomography of head 01/14/2020 [place] without contrast 12:00:00 AM [facility] EDT Computed tomography of chest, 01/14/2020 [place] abdomen, and pelvis without 12:00:00 AM Hospital contrast EDT Electrocardiographic procedure 01/14/2020 [place] (procedure) 12:00:00 AM [facility] EDT Incentive spirometry 01/14/2020 [place] (regime/therapy) 12:00:00 AM Hospital EDT Computed tomography of head 01/14/2020 [place] without contrast 12:00:00 AM [facility] EDT Computed tomography of chest, 01/14/2020 [place] abdomen, and pelvis without 12:00:00 AM Hospital contrast EDT Electrocardiographic procedure 01/14/2020 [place] (procedure) 12:00:[address] abd & pelvis w/o contrast 01/14/2020 [place] 12:00:[address] head/brain w/o dye 01/14/2020 [place] 12:00:[address] thorax w/o dye 01/14/2020 [place] 12:00:00 AM [facility] EDT Electrocardiogram tracing 01/14/2020 [facility] [place] 12:00:00 AM [facility] EDT Assay of troponin qual 01/14/2020 [place] 12:00:00 AM [facility] EDT Reagent strip/blood glucose 01/14/2020 [place] 12:00:00 AM [facility] EDT Comprehen metabolic panel 01/14/2020 [facility] [place] 12:00:00 AM [facility] EDT Mr-staph dna amp probe 01/14/2020 [place] 12:00:00 AM [facility] EDT SARS-COV-2 COVID-19 AMP PRB 01/14/2020 [place] 12:00:00 AM [facility] EDT Prothrombin time 01/14/2020 [place] 12:00:00 AM [facility] EDT Bl smear w/diff wbc count 01/14/2020 [facility] [place] 12:00:00 AM [facility] EDT Complete cbc automated 01/14/2020 [place] 12:00:00 AM [facility] EDT Thromboplastin time partial 01/14/2020 [place] 12:00:00 AM [facility] EDT Emergency dept visit 01/14/2020 [place] 12:00:00 AM [facility] EDT Oxygen therapy (procedure) 12/09/2019 [facility] [place] 12:00:00 AM [facility] EDT Electrocardiographic procedure 12/07/2019 [place] (procedure) 12:00:00 AM [facility] EDT Incentive spirometry 12/07/2019 [place] (regime/therapy) 12:00:00 AM Hospital EDT Plain chest X-ray (procedure) 12/07/2019 [place] 12:00:00 AM [facility] EDT Oxygen therapy (procedure) 12/07/2019 [facility] [place] 12:00:00 AM [facility] EDT Electrocardiographic procedure 12/07/2019 [place] (procedure) 12:00:00 AM [facility] EDT Hepatobiliary iminodiacetic 09/14/2019 [place] acid (HIDA) scan 12:00:00 AM Hospital EST Electrocardiographic procedure 09/14/2019 [place] (procedure) 12:00:00 AM [facility] EST Ultrasonography of abdomen 09/13/2019 [facility] [place] (procedure) 12:00:00 AM [facility] EST Computed tomography 09/13/[address] [place] angiography of thorax 12:00:00 AM [facility] (procedure) EST Electrocardiographic procedure 09/13/2019 [place] (procedure) 12:00:00 AM [facility] EST Nebulizer therapy (procedure) 09/05/2019 [place] 12:00:00 AM [facility] EST Nebulizer therapy (procedure) 09/05/2019 [place] 12:00:00 AM [facility] EST Nebulizer therapy (procedure) 09/04/2019 [place] 12:00:00 AM [facility] EST Plain chest X-ray (procedure) 09/04/2019 [place] 12:00:00 AM [facility] EST Electrocardiographic procedure 09/04/2019 [place] (procedure) 12:00:00 AM [facility] EST Nebulizer therapy (procedure) 09/04/2019 [place] 12:00:00 AM [facility] EST Plain chest X-ray (procedure) 09/04/2019 [place] 12:00:00 AM [facility] EST Electrocardiographic procedure 09/04/2019 [place] (procedure) 12:00:00 AM [facility] EST PERFORMANCE OF URINARY 09/04/2019 [place] FILTRATION, <6 HRS/DAY 12:00:00 [facility] EST TRANSFUSE NONAUT RED BLOOD 09/04/2019 [facility] [place] CELLS IN PERIPH VEIN, PERC 12:00:00 [facility] EST PERFORMANCE OF URINARY 08/25/2019 [place] FILTRATION, <6 HRS/DAY 12:00:00 [facility] EST PERFORMANCE OF URINARY 08/25/2019 [place] FILTRATION, <6 HRS/DAY 12:00:00 [facility] EST Noninvasive positive pressure 08/24/2019 [place] ventilation (procedure) 12:00:00 [facility] EST Nebulizer therapy (procedure) 08/24/2019 [place] 12:00:00 AM [facility] EST Electrocardiographic procedure 08/24/2019 [place] (procedure) 12:00:00 AM [facility] EST Noninvasive positive pressure 08/24/2019 [place] ventilation (procedure) 12:00:00 [facility] EST Nebulizer therapy (procedure) 08/24/2019 [place] 12:00:00 AM [facility] EST Electrocardiographic procedure 08/24/2019 [place] (procedure) 12:00:00 AM [facility] EST Noninvasive positive pressure 08/24/2019 [place] ventilation (procedure) 12:00:00 [facility] Nebulizer therapy (procedure) 08/24/2019 [place] 12:00:00 AM [facility] EST Electrocardiographic procedure 08/24/2019 [place] (procedure) 12:00:00 AM [facility] EST Radiography of thoracic spine 08/04/2019 [place] (procedure) 12:00:00 AM [facility] EST Diagnostic radiography of 08/04/2019 [facility] [place] lumbar spine, combined 12:00:00 [facility] anteroposterior and lateral EST (procedure) X-ray exam l-s spine 2/3 vws 08/04/2019 [place] 12:00:00 AM [facility] EST X-ray exam thorac spine 2vws 08/04/2019 [place] 12:00:00 AM [facility] EST Emergency dept visit 08/04/2019 [place] 12:00:00 AM [facility] EST Radiography of thoracic spine 08/04/2019 [place] (procedure) 12:00:00 AM [facility] EST Diagnostic radiography of 08/04/2019 [facility] [place] lumbar spine, combined 12:00:00 [facility] anteroposterior and lateral EST (procedure) Plain chest X-ray (procedure) 07/22/2019 [place] 12:00:00 AM [facility] EST Plain chest X-ray (procedure) 07/22/2019 [place] 12:00:00 AM [facility] EST Chest percussion therapy 07/21/2019 [facility] [place] (regime/therapy) 12:00:00 AM [facility] EST Plain chest X-ray (procedure) 07/21/2019 [place] 12:00:00 AM [facility] EST Chest percussion therapy 07/21/2019 [facility] [place] (regime/therapy) 12:00:00 AM [facility] EST Plain chest X-ray (procedure) 07/21/2019 [place] 12:00:00 AM [facility] EST Electrocardiographic procedure 07/20/2019 [place] (procedure) 12:00:00 AM [facility] EST Plain chest X-ray (procedure) 07/20/2019 [place] 12:00:00 AM [facility] EST Electrocardiographic procedure 07/20/2019 [place] (procedure) 12:00:00 AM [facility] EST Plain chest X-ray (procedure) 07/20/2019 [place] 12:00:00 AM [facility] EST Plain chest X-ray (procedure) 07/19/2019 [place] 12:00:00 AM [facility] EST Plain chest X-ray (procedure) 07/19/2019 [place] 12:00:00 AM [facility] EST Physical therapy procedure 07/16/2019 [facility] [place] (regime/therapy) 12:00:00 AM [facility] EST Noninvasive positive pressure 07/16/2019 [place] ventilation (procedure) 12:00:00 [facility] Continuous pulse oximetry 07/16/2019 [facility] [place] (procedure) 12:00:00 AM [facility] EST Physical therapy procedure 07/16/2019 [facility] [place] (regime/therapy) 12:00:00 AM [facility] EST Noninvasive positive pressure 07/16/2019 [place] ventilation (procedure) 12:00:00 [facility] Continuous pulse oximetry 07/16/2019 [facility] [place] (procedure) 12:00:00 AM [facility] EST Oxygen therapy (procedure) 07/15/2019 [facility] [place] 12:00:00 AM [facility] EST Plain chest X-ray (procedure) 07/15/2019 [place] 12:00:00 AM [facility] EST Continuous pulse oximetry 07/15/2019 [facility] [place] (procedure) 12:00:00 AM [facility] EST Noninvasive positive pressure 07/15/2019 [place] ventilation (procedure) 12:00:00 [facility] Noninvasive positive pressure 07/15/2019 [place] ventilation (procedure) 12:00:00 [facility] EST Nebulizer therapy (procedure) 07/15/2019 [place] 12:00:00 AM [facility] EST Nebulizer therapy (procedure) 07/15/2019 [place] 12:00:00 AM [facility] EST Oxygen therapy (procedure) 07/15/2019 [facility] [place] 12:00:00 AM [facility] EST Electrocardiographic procedure 07/15/2019 [place] (procedure) 12:00:00 AM [facility] EST ASSISTANCE WITH RESPIRATORY 07/15/2019 [place] VENTILATION, <24 HRS, CPAP 12:00:00 [facility] EST PERFORMANCE OF URINARY 07/15/2019 [place] FILTRATION, <6 HRS/DAY 12:00:00 [facility] EST PERFORMANCE OF URINARY 07/15/2019 [place] FILTRATION, <6 HRS/DAY 12:00:00 [facility] EST Oxygen therapy (procedure) 07/15/2019 [facility] [place] 12:00:00 AM [facility] EST Plain chest X-ray (procedure) 07/15/2019 [place] 12:00:00 AM [facility] EST Continuous pulse oximetry 07/15/2019 [facility] [place] (procedure) 12:00:00 AM [facility] EST Noninvasive positive pressure 07/15/2019 [place] ventilation (procedure) 12:00:00 [facility] Noninvasive positive pressure 07/15/2019 [place] ventilation (procedure) 12:00:00 [facility] EST Nebulizer therapy (procedure) 07/15/2019 [place] 12:00:00 AM [facility] EST Nebulizer therapy (procedure) 07/15/2019 [place] 12:00:00 AM [facility] EST Oxygen therapy (procedure) 07/15/2019 [facility] [place] 12:00:00 AM [facility] EST Electrocardiographic procedure 07/15/2019 [place] (procedure) 12:00:00 AM [facility] EST Plain chest X-ray (procedure) 07/14/2019 [place] 12:00:00 AM [facility] EST Plain chest X-ray (procedure) 07/14/2019 [place] 12:00:00 AM [facility] EST Electrocardiographic procedure 07/03/2019 [place] (procedure) 12:00:00 AM [facility] EST Plain chest X-ray (procedure) 07/02/2019 [place] 12:00:00 AM [facility] EST Electrocardiographic procedure 07/02/2019 [place] (procedure) 12:00:00 AM [facility] EST INJECTION, ONDANSETRON 07/02/2019 [place] HYDROCHLORIDE, PER 1 MG 12:00:00 [facility] EST X-ray exam chest 1 view 07/02/2019 [place] 12:00:00 AM [facility] EST Electrocardiogram tracing 07/02/2019 [facility] [place] 12:00:00 AM [facility] EST Electrocardiogram tracing 07/02/2019 [facility] [place] 12:00:00 AM [facility] EST Assay of troponin qual 07/02/2019 [place] 12:00:00 AM [facility] EST Assay of lipase 07/02/2019 [place] 12:00:00 AM [facility] EST Reagent strip/blood glucose 07/02/2019 [place] 12:00:00 AM [facility] EST Comprehen metabolic panel 07/02/2019 [facility] [place] 12:00:00 AM [facility] EST Bl smear w/diff wbc count 07/02/2019 [facility] [place] 12:00:00 AM [facility] EST Complete cbc automated 07/02/2019 [place] 12:00:00 AM [facility] EST Hydrate iv infusion add-on 07/02/2019 [facility] [place] 12:00:00 AM [facility] EST Ther/proph/diag inj iv push 07/02/2019 [place] 12:00:00 AM [facility] EST Emergency dept visit 07/02/2019 [facility] [place] 12:00:00 AM [facility] EST Electrocardiographic procedure 07/02/2019 [place] (procedure) 12:00:00 AM [facility] EST Plain chest X-ray (procedure) 07/02/2019 [place] 12:00:00 AM [facility] EST Electrocardiographic procedure 07/02/2019 [place] (procedure) 12:00:00 AM [facility] EST XR humerus left 06/07/2019 [place] 12:00:00 AM [facility] EST Fluoroscopy (procedure) 06/07/2019 [place] 12:00:00 AM [facility] EST Oxygen therapy (procedure) 06/07/2019 [facility] [place] 12:00:00 AM [facility] EST Plain chest X-ray (procedure) 06/07/2019 [place] 12:00:00 AM [facility] EST Electrocardiographic procedure 06/07/2019 [place] (procedure) 12:00:00 AM Hospital EST INJECTION, HEPARIN SODIUM, PER 06/07/2019 [place] 1000 UNITS 12:00:00 AM Hospital EST INJECTION, HEPARIN SODIUM, PER 06/07/2019 [place] 1000 UNITS 12:00:00 AM Hospital EST INJECTION, HEPARIN SODIUM, PER 06/07/2019 [place] 1000 UNITS 12:00:00 AM Hospital EST INJECTION, LORAZEPAM, 2 MG 06/07/2019 [facility] [place] 12:00:00 AM [facility] EST RINGERS LACTATE INFUSION 06/07/2019 [facility] [place] 12:00:00 AM [facility] EST LOW OSMOLAR 300-399 mg/mi IOP 06/07/2019 [place] 12:00:00 AM [facility] EST INJECTION, HEPARIN SODIUM, PER 06/07/2019 [place] 1000 UNITS 12:00:00 AM Hospital EST INJECTION, HEPARIN SODIUM, PER 06/07/2019 [place] 1000 UNITS 12:00:00 AM Hospital EST INJECTION, FENTANYL CITRATE, 06/07/2019 [place] 0.1 MG 12:00:00 AM Hospital EST INJECTION, CEFAZOLIN SODIUM, 06/07/2019 [place] 500MG 12:00:00 AM Hospital EST PARICALCITOL 06/07/2019 [place] 12:00:00 AM [facility] EST ACETAMINOPHEN INJECTION 06/07/2019 [place] 12:00:00 AM [facility] EST DRUGS UNCLASSIFIED INJECTION 06/07/2019 [place] 12:00:00 AM [facility] EST DRUGS UNCLASSIFIED INJECTION 06/07/2019 [place] 12:00:00 AM [facility] EST HOSPITAL OBSERVATION PER HR 06/07/2019 [place] 12:00:00 AM [facility] EST X-ray exam of humerus 06/07/2019 [place] 12:00:00 AM [facility] EST Fluoroscopy <1 hr phys/qhp 06/07/2019 [facility] [place] 12:00:00 AM [facility] EST X-ray exam chest 1 view 06/07/2019 [place] [facility] [place] 12:00:00 AM [facility] EST Electrocardiogram tracing 06/07/2019 [facility] [place] 12:00:00 AM [facility] EST Tissue exam by pathologist 06/07/2019 [facility] [place] 12:00:00 AM [facility] EST Assay of troponin qual 06/07/2019 [place] 12:00:00 AM [facility] EST Reagent strip/blood glucose 06/07/2019 [place] 12:00:00 AM [facility] EST Comprehen metabolic panel 06/07/2019 [facility] [place] 12:00:00 AM [facility] EST Smear gram stain 06/07/2019 [place] 12:00:00 AM [facility] EST Fungus isolation culture 06/07/2019 [facility] [place] 12:00:00 AM [facility] EST Cultr bacteria except blood 06/07/2019 [place] 12:00:00 AM [facility] EST Culture othr specimn aerobic 06/07/2019 [place] 12:00:00 AM [facility] EST Mr-staph dna amp probe 06/07/2019 [place] 12:00:00 AM [facility] EST Alexandra test indirect qual 06/07/2019 [facility] [place] 12:00:00 AM [facility] EST Prothrombin time 06/07/2019 [place] 12:00:00 AM [facility] EST Bl smear w/diff wbc count 06/07/2019 [facility] [place] 12:00:00 AM [facility] EST Complete cbc automated 06/07/2019 [place] 12:00:00 AM [facility] EST Thromboplastin time partial 06/07/2019 [place] 12:00:00 AM [facility] EST Ther/proph/diag inj iv push 06/07/2019 [place] 12:00:00 AM [facility] EST Tx/pro/dx inj new drug addon 06/07/2019 [place] 12:00:00 AM [facility] EST Emergency dept visit 06/07/2019 [facility] [place] 12:00:00 AM [facility] EST Balo angiop ctr dialysis seg 06/07/2019 [place] 12:00:00 AM [facility] EST 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/07/2019 [facility] [place] 12:00:00 AM [facility] EST XR humerus left 06/07/2019 [place] 12:00:00 AM [facility] EST Fluoroscopy (procedure) 06/07/2019 [place] 12:00:00 AM [facility] EST Oxygen therapy (procedure) 06/07/2019 [facility] [place] 12:00:00 AM [facility] EST Plain chest X-ray (procedure) 06/07/2019 [place] 12:00:00 AM [facility] EST Electrocardiographic procedure 06/07/2019 [place] (procedure) 12:00:00 AM [facility] EST XR humerus left 06/07/2019 [place] 12:00:00 AM [facility] EST Fluoroscopy (procedure) 06/07/2019 [place] 12:00:00 AM [facility] EST Oxygen therapy (procedure) 06/07/2019 [facility] [place] 12:00:00 AM [facility] EST Plain chest X-ray (procedure) 06/07/2019 [place] 12:00:00 AM [facility] EST Electrocardiographic procedure 06/07/2019 [place] (procedure) 12:00:00 AM [facility] EST Physical therapy procedure 05/24/2019 [facility] [place] (regime/therapy) 12:00:00 AM [facility] EST Physical therapy procedure 05/24/2019 [facility] [place] (regime/therapy) 12:00:00 AM [facility] EST Physical therapy procedure 05/24/2019 [facility] [place] (regime/therapy) 12:00:00 AM Hospital EST Cerebr Seizure 16/>CH 24HRS 05/23/2019 [place] 12:00:00 AM [facility] EDT Physical therapy procedure 05/23/2019 [facility] [place] (regime/therapy) 12:00:00 AM Hospital EDT Computed tomography of head 05/23/2019 [place] without contrast 12:00:00 AM Hospital EDT Cerebr Seizure 16/>CH 24HRS 05/23/2019 [place] 12:00:00 AM [facility] EDT Physical therapy procedure 05/23/2019 [facility] [place] (regime/therapy) 12:00:00 AM Hospital EDT Computed tomography of head 05/23/2019 [place] without contrast 12:00:00 AM Hospital EDT Cerebr Seizure 16/>CH 24HRS 05/23/2019 [place] 12:00:00 AM Hospital EDT Physical therapy procedure 05/23/2019 [facility] [place] (regime/therapy) 12:00:00 AM Hospital EDT Computed tomography of head 05/23/2019 [place] without contrast 12:00:00 AM Hospital EDT Cerebr Seizure 16/>CH 24HRS 05/23/2019 [place] 12:00:00 AM Hospital EDT Physical therapy procedure 05/23/2019 [facility] [place] (regime/therapy) 12:00:00 AM Hospital EDT Computed tomography of head 05/23/2019 [place] without contrast 12:00:00 AM Hospital EDT PERFORMANCE OF URINARY 05/22/2019 [place] FILTRATION, <6 HRS/DAY 12:00:00 [facility]T Cerebr Seizure 16/>CH =/<12HRS 05/22/2019 [place] 12:00:00 AM [facility] EDT Respiratory Referral 05/22/2019 [place] 12:00:00 AM [facility] EDT Plain chest X-ray (procedure) 05/22/2019 [place] 12:00:00 AM Hospital EDT Electrocardiographic procedure 05/22/2019 [place] (procedure) 12:00:00 AM Hospital EDT Computed tomography of head 05/22/2019 [place] without contrast 12:00:00 AM Hospital EDT PERFORMANCE OF URINARY 05/22/2019 [place] FILTRATION, <6 HRS/DAY 12:00:00 [facility] EDT Cerebr Seizure 16/>CH =/<12HRS 05/22/2019 [place] 12:00:00 AM Hospital EDT Respiratory Referral 05/22/2019 [place] 12:00:00 AM Hospital EDT Plain chest X-ray (procedure) 05/22/2019 [place] 12:00:00 AM Hospital EDT Electrocardiographic procedure 05/22/2019 [place] (procedure) 12:00:00 AM Hospital EDT Computed tomography of head 05/22/2019 [place] without contrast 12:00:00 AM Hospital EDT Cerebr Seizure 16/>CH =/<12HRS 05/22/2019 [place] 12:00:00 AM Hospital EDT Respiratory Referral 05/22/2019 [place] 12:00:00 AM [facility] EDT Plain chest X-ray (procedure) 05/22/2019 [place] 12:00:00 AM [facility] EDT Electrocardiographic procedure 05/22/2019 [place] (procedure) 12:00:00 AM Hospital EDT Computed tomography of head 05/22/2019 [place] without contrast 12:00:00 AM Hospital EDT Cerebr Seizure 16/>CH =/<12HRS 05/22/2019 [place] 12:00:00 AM Hospital EDT Respiratory Referral 05/22/2019 [place] 12:00:00 AM Hospital EDT Plain chest X-ray (procedure) 05/22/2019 [place] 12:00:00 AM Hospital EDT Electrocardiographic procedure 05/22/2019 [place] (procedure) 12:00:00 AM Hospital EDT Computed tomography of head 05/22/2019 [place] without contrast 12:00:00 AM Hospital EDT Plain chest X-ray (procedure) 05/19/2019 [place] 12:00:00 AM Hospital EDT Computed tomography of head 05/19/2019 [place] without contrast 12:00:00 AM Hospital EDT Electrocardiographic procedure 05/19/2019 [place] (procedure) 12:00:[address] head/brain w/o dye 05/19/2019 [place] 12:00:00 AM Hospital EDT X-ray exam chest 1 view 05/19/2019 [facility] [place] 12:00:00 AM [facility] EDT Electrocardiogram tracing 05/19/2019 [facility] [place] 12:00:00 AM Hospital EDT Assay of troponin qual 05/19/2019 [place] 12:00:00 AM Hospital EDT Reagent strip/blood glucose 05/19/2019 [place] 12:00:00 AM Hospital EDT Metabolic panel total ca 05/19/2019 [facility] [place] 12:00:00 AM Hospital EDT Mr-staph dna amp probe 05/19/2019 [place] 12:00:00 AM Hospital EDT Prothrombin time 05/19/2019 [place] 12:00:00 AM Hospital EDT Bl smear w/diff wbc count 05/19/2019 [facility] [place] 12:00:00 AM Hospital EDT Complete cbc automated 05/19/2019 [place] 12:00:00 AM Hospital EDT Thromboplastin time partial 05/19/2019 [place] 12:00:00 AM Hospital EDT Emergency dept visit 05/19/2019 [place] 12:00:00 AM Hospital EDT Plain chest X-ray (procedure) 05/19/2019 [place] 12:00:00 AM Hospital EDT Computed tomography of head 05/19/2019 [place] without contrast 12:00:00 AM Hospital EDT Electrocardiographic procedure 05/19/2019 [place] (procedure) 12:00:[address] head/brain w/o dye 05/19/2019 [place] 12:00:00 AM Hospital EDT X-ray exam chest 1 view 05/19/2019 [place] 12:00:00 AM Hospital EDT Electrocardiogram tracing 05/19/2019 [facility] [place] 12:00:00 AM Hospital EDT Assay of troponin qual 05/19/2019 [place] 12:00:00 AM Hospital EDT Reagent strip/blood glucose 05/19/2019 [place] 12:00:00 AM Hospital EDT Metabolic panel total ca 05/19/2019 [facility] [place] 12:00:00 AM Hospital EDT Mr-staph dna amp probe 05/19/2019 [place] 12:00:00 AM Hospital EDT Prothrombin time 05/19/2019 [place] 12:00:00 AM Hospital EDT Bl smear w/diff wbc count 05/19/2019 [facility] [place] 12:00:00 AM Hospital EDT Complete cbc automated 05/19/2019 [place] 12:00:00 AM Hospital EDT Thromboplastin time partial 05/19/2019 [place] 12:00:00 AM Hospital EDT Emergency dept visit 05/19/2019 [place] 12:00:00 AM Hospital EDT Plain chest X-ray (procedure) 05/19/2019 [place] 12:00:00 AM Hospital EDT Computed tomography of head 05/19/2019 [place] without contrast 12:00:00 AM Hospital EDT Electrocardiographic procedure 05/19/2019 [place] (procedure) 12:00:00 AM Hospital EDT Plain chest X-ray (procedure) 05/19/2019 [place] 12:00:00 AM Hospital EDT Computed tomography of head 05/19/2019 [place] without contrast 12:00:00 AM Hospital EDT Electrocardiographic procedure 05/19/2019 [place] (procedure) 12:00:[address] head/brain w/o dye 05/19/2019 [place] 12:00:00 AM Hospital EDT X-ray exam chest 1 view 05/19/2019 [place] [facility] [place] 12:00:00 AM Hospital EDT Electrocardiogram tracing 05/19/2019 [facility] [place] 12:00:00 AM Hospital EDT Assay of troponin qual 05/19/2019 [place] 12:00:00 AM Hospital EDT Reagent strip/blood glucose 05/19/2019 [place] 12:00:00 AM Hospital EDT Metabolic panel total ca 05/19/2019 [facility] [place] 12:00:00 AM Hospital EDT Mr-staph dna amp probe 05/19/2019 [place] 12:00:00 AM Hospital EDT Prothrombin time 05/19/2019 [place] 12:00:00 AM Hospital EDT Bl smear w/diff wbc count 05/19/2019 [facility] [place] 12:00:00 AM Hospital EDT Complete cbc automated 05/19/2019 [place] 12:00:00 AM Hospital EDT Thromboplastin time partial 05/19/2019 [place] 12:00:00 AM Hospital EDT Emergency dept visit 05/19/2019 [place] 12:00:00 AM Hospital EDT Emergency dept visit 05/07/2019 [place] 12:00:00 AM Hospital EDT Emergency dept visit 05/07/2019 [place] 12:00:00 AM Hospital EDT Oxygen therapy (procedure) 04/19/2019 [facility] [place] 12:00:00 AM Hospital EDT Incentive spirometry 04/19/2019 [place] (regime/therapy) 12:00:00 AM Hospital EDT Electrocardiographic procedure 04/19/2019 [place] (procedure) 12:00:00 AM Hospital EDT Nebulizer therapy (procedure) 04/19/2019 [place] 12:00:00 AM Hospital EDT Electrocardiographic procedure 04/19/2019 [place] (procedure) 12:00:00 AM Hospital EDT Plain chest X-ray (procedure) 04/19/2019 [place] 12:00:00 AM Hospital EDT Oxygen therapy (procedure) 04/19/2019 [facility] [place] 12:00:00 AM Hospital EDT Incentive spirometry 04/19/2019 [place] (regime/therapy) 12:00:00 AM Hospital EDT Electrocardiographic procedure 04/19/2019 [place] (procedure) 12:00:00 AM Hospital EDT Nebulizer therapy (procedure) 04/19/2019 [place] 12:00:00 AM Hospital EDT Electrocardiographic procedure 04/19/2019 [place] (procedure) 12:00:00 AM Hospital EDT Plain chest X-ray (procedure) 04/19/2019 [place] 12:00:00 AM Hospital EDT Ultrasound scan of upper limb 03/09/2019 [place] vessels (procedure) 12:00:00 AM Hospital EDT Plain chest X-ray (procedure) 03/08/2019 [place] 12:00:00 AM Hospital EDT Oxygen therapy (procedure) 03/08/2019 [facility] [place] 12:00:00 AM Hospital EDT Radiography of shoulder 03/04/2019 [place] [facility] [place] (procedure) 12:00:00 AM Hospital EDT Results ID Date Data Source [id number] 04/27/2020 05:54:00 PM EDT [facility] Name Value Range Interpretation Description Data Sup porting Code Source(s) Document(s ) 2019 Novel [facility] Coronavirus RNA Interpretation Unspecified Specimen Qualitative YAZMIN Probe Detection This lab was ordered by [facility] and reported by [facility]. ID Date Data Source [id number] 04/23/2020 06:06:00 AM EDT [facility] Value Range Interpretation Description Data Sup porting Code Source(s) Document(s ) Basophils/100 0.7 % [place] leukocytes in Hospital Blood by Automated count ID Date Data Source [id number] 04/23/2020 06:06:00 AM EDT [facility] Value Range Interpretation Description Data Sup porting Code Source(s) Document(s ) Eosinophils/100 4.3 % [place] leukocytes in Hospital Blood by Automated count ID Date Data Source [id number] 04/23/2020 06:06:00 AM EDT [facility] Name Value Range Interpretation Description Data Sup porting Code Source(s) Document(s ) Monocytes/100 11.4 % [place] leukocytes in Hospital Blood by Automated count ID Date Data Source [id number] 04/23/2020 06:06:00 AM EDT [facility] Value Range Interpretation Description Data Sup porting Code Source(s) Document(s ) Lymphocytes/100 9.3 % [place] leukocytes in Hospital Blood by Automated count ID Date Data Source [id number] 04/23/2020 06:06:00 AM EDT [facility] Value Range Interpretation Description Data Sup porting Code Source(s) Document(s ) Neutrophils/10 73.9 % [place] 0 leukocytes Hospital in Blood by Automated count ID Date Data Source [id number] 04/23/2020 06:06:00 AM EDT [facility] Value Range Interpretation Description Data Sup porting Code Source(s) Document(s ) Platelet mean 13.[address] [place] [address] [facility] [Entitic volume] in Blood by Automated count ID Date Data Source [id number] 04/23/2020 06:06:00 AM EDT [facility] Value Range Interpretation Description Data Sup porting Code Source(s) Document(s ) Platelets 62 [place] [#/volume] in 10*3/uL Hospital Blood by Automated count ID Date Data Source [id number] 04/23/2020 06:06:00 AM EDT [facility] Value Range Interpretation Description Data Sup porting Code Source(s) Document(s ) Erythrocyte 21.2 % [place] distribution Hospital width [Ratio] by Automated count ID Date Data Source [id number] 04/23/2020 06:06:00 AM EDT [facility] Value Range Interpretation Description Data Sup porting Code Source(s) Document(s ) Erythrocyte mean 31.1 [place] corpuscular g/dL Hospital hemoglobin concentration [Mass/volume] by Automated count ID Date Data Source [id number] 04/23/2020 06:06:00 AM [facility] Value Range Interpretation Description Data Sup porting Code Source(s) Document(s ) Erythrocyte 32.3 pg [facility] Hospital corpuscular hemoglobin [Entitic mass] by Automated count ID Date Data Source [id number] 04/23/2020 06:06:00 AM EDT [facility] Value Range Interpretation Description Data Sup porting Code Source(s) Document(s ) Erythrocyte 104.1 fL [place] mean Hospital corpuscular volume [Entitic volume] by Automated count ID Date Data Source [id number] 04/23/2020 06:06:00 AM [facility] Value Range Interpretation Description Data Sup porting Code Source(s) Document(s ) Hematocrit 28.0 % [place] [Volume Hospital Fraction] of Blood by Automated count ID Date Data Source [id number] 04/23/2020 06:06:00 AM [facility] Value Range Interpretation Description Data Sup porting Code Source(s) Document(s ) Hemoglobin 8.7 g/dL [place] [Mass/volume] Hospital in Blood ID Date Data Source [id number] 04/23/2020 06:06:00 AM [facility] Value Range Interpretation Description Data Sup porting Code Source(s) Document(s ) Erythrocytes 2.69 [place] [#/volume] in 10*6/uL Hospital Blood by Automated count ID Date Data Source [id number] 04/23/2020 06:06:00 AM EDT [facility] Value Range Interpretation Description Data Sup porting Code Source(s) Document(s ) Leukocytes 5.4 [place] [#/volume] in 10*3/uL Hospital Blood by Automated count ID Date Data Source [id number] 04/23/2020 06:06:00 AM [facility] Name Value Range Interpretation Description Data Sup porting Code Source(s) Document(s ) Phosphate 3.9 mg/dL [place] [Mass/volume] Hospital in Serum or Plasma ID Date Data Source [id number] 04/23/2020 06:06:00 AM [facility] Name Value Range Interpretation Description Data Sup porting Code Source(s) Document(s ) Magnesium 2.0 mg/dL [place] [Mass/volume] Hospital in Serum or Plasma ID Date Data Source [id number] 04/23/2020 06:06:00 AM [facility] Value Range Interpretation Description Data Sup porting Code Source(s) Document(s ) Aspartate 17 U/L [facility] amin[facility] [place] [Enzymatic Hospital activity/volume] in Serum or Plasma ID Date Data Source [id number] 04/23/2020 06:06:00 AM [facility] Name Value Range Interpretation Description Data Sup porting Code Source(s) Document(s ) Alanine 9 U/L [place] aminotransferase Hospital [Enzymatic activity/volume] in Serum or Plasma ID Date Data Source [id number] 04/23/2020 06:06:00 AM [facility] Name Value Range Interpretation Description Data Sup porting Code Source(s) Document(s ) Alkaline 89 U/L [place] phosphatase Hospital [Enzymatic activity/volume ] in Serum or Plasma ID Date Data Source [id number] 04/23/2020 06:06:00 AM [facility] Name Value Range Interpretation Description Data Sup porting Code Source(s) Document(s ) Bilirubin.t 0.7 mg/dL [facility] [Mass/volum e] in Serum or Plasma ID Date Data Source [id number] 04/23/2020 06:06:00 AM EDT [place] [facility] Name Value Range Interpretation Code Description Data Sharon rce(s) Supporting Document(s ) Albumin/Glob 1.3 [place] ulin [Mass Hospital Ratio] in Serum or Plasma ID Date Data Source [id number] 04/23/2020 06:06:00 AM EDT [place] [facility] Name Value Range Interpretation Description Data Sup porting Code Source(s) Document(s ) Albumin 3.2 g/dL [place] [Mass/volume Hospital ] in Serum or Plasma ID Date Data Source [id number] 04/23/2020 06:06:00 AM EDT [facility] Name Value Range Interpretation Description Data Sup porting Code Source(s) Document(s ) Protein 5.6 g/dL [place] [Mass/volume Hospital ] in Serum or Plasma ID Date Data Source [id number] 04/23/2020 06:06:00 AM EDT [facility] [facility] Name Value Range Interpretation Description Data Sup porting Code Source(s) Document(s ) Calcium 7.8 mg/dL [place] [Mass/volume Hospital ] in Serum or Plasma ID Date Data Source [id number] 04/23/2020 06:06:00 AM EDT [facility] Name Value Range Interpretation Code Description Data Sharon rce(s) Supporting Document(s ) Urea 5.9 [place] nitrogen/Cre Hospital atinine [Mass Ratio] in Serum or Plasma ID Date Data Source [id number] 04/23/2020 06:06:00 AM EDT [facility] Name Value Range Interpretation Description Data Sup porting Code Source(s) Document(s ) Creatinine 3.9 mg/dL [place] [Mass/volume] Hospital in Serum or Plasma ID Date Data Source [id number] 04/23/2020 06:06:00 AM EDT [facility] Name Value Range Interpretation Description Data Sup porting Code Source(s) Document(s ) Urea 23 mg/dL [place] nitrogen Hospital [Mass/volume ] in Serum or Plasma ID Date Data Source [id number] 04/23/2020 06:06:00 AM EDT [facility] Name Value Range Interpretation Code Description Data Sharon rce(s) Supporting Document(s ) Anion gap in 12 [place] Serum or Hospital Plasma ID Date Data Source [id number] 04/23/2020 06:06:00 AM EDT [facility] Name Value Range Interpretation Description Data Sup porting Code Source(s) Document(s ) Carbon 31 mmol/L [place] dioxide, Hospital total [Moles/volu me] in Serum or Plasma ID Date Data Source [id number] 04/23/2020 06:06:00 AM EDT [facility] Name Value Range Interpretation Description Data Sup porting Code Source(s) Document(s ) Chloride 97 mmol/L [place] [Moles/volum Hospital e] in Serum or Plasma ID Date Data Source [id number] 04/23/2020 06:06:00 AM EDT [facility] Name Value Range Interpretation Description Data Sup porting Code Source(s) Document(s ) Potassium 3.8 [place] [Moles/volume mmol/L Hospital ] in Serum or Plasma ID Date Data Source [id number] 04/23/2020 06:06:00 AM EDT [place] [facility] Name Value Range Interpretation Description Data Sup porting Code Source(s) Document(s ) Sodium 136 mmol/L [place] [Moles/volu Hospital me] in Serum or Plasma ID Date Data Source [id number] 04/23/2020 06:06:00 AM EDT [facility] Name Value Range Interpretation Description Data Sup porting Code Source(s) Document(s ) Glucose 74 mg/dL [place] [Mass/volume Hospital ] in Serum or Plasma ID Date Data Source [id number] 04/23/2020 06:06:00 AM EDT [facility] Value Range Interpretation Code Description Data Supporting Source(s) Document(s ) NUCLEATED RBCS 0.0 % [place] (AUTO Hospital DIFF%)DIS ID Date Data Source [id number] 04/23/2020 06:06:00 AM EDT [facility] Value Range Interpretation Description Data Sup porting Code Source(s) Document(s ) Differential AUTOMATED [place] cell count [facility] method - Blood ID Date Data Source [id number] 04/23/2020 06:06:00 AM EDT [facility] Value Range Interpretation Description Data Sup porting Code Source(s) Document(s ) Immature 0.02 [place] granulocytes 10*3/uL Hospital [#/volume] in Blood by Automated count ID Date Data Source [id number] 04/23/2020 06:06:00 AM EDT [facility] Value Range Interpretation Description Data Sup porting Code Source(s) Document(s ) Basophils 0.04 [place] [#/volume] in 10*3/uL Hospital Blood by Automated count ID Date Data Source [id number] 04/23/2020 [facility] Range Interpretation Description Data Sup porting Code Source(s) Document(s ) Eosinophils 0.23 [place] [#/volume] in 10*3/uL Hospital Blood by Automated count ID Date Data Source [id number] 04/23/2020 06:06:00 AM EDT [facility] Name Value Range Interpretation Description Data Sup porting Code Source(s) Document(s ) Monocytes 0.61 [place] [#/volume] in 10*3/uL Hospital Blood by Automated count ID Date Data Source [id number] 04/23/2020 06:06:00 AM EDT [facility] Name Value Range Interpretation Description Data Sup porting Code Source(s) Document(s ) Lymphocytes 0.50 [place] [#/volume] in 10*3/uL Hospital Blood by Automated count ID Date Data Source [id number] 04/23/2020 06:06:00 AM EDT [facility] Name Value Range Interpretation Description Data Sup porting Code Source(s) Document(s ) Neutrophils 3.97 [place] [#/volume] in 10*3/uL [facility] Blood by Automated count ID Date Data Source [id number] 04/23/2020 06:06:00 AM EDT [facility] Name Value Range Interpretation Description Data Sup porting Code Source(s) Document(s ) Nucleated 0.0 % [place] erythrocytes/10 Hospital 0 leukocytes [Ratio] in Blood by Automated count ID Date Data Source [id number] 04/23/2020 06:06:00 AM EDT [facility] Name Value Range Interpretation Description Data Sup porting Code Source(s) Document(s ) Immature 0.4 % [place] granulocytes/10 Hospital 0 leukocytes in Blood by Automated count ID Date Data Source [id number] 04/23/2020 05:45:00 AM EDT [facility] Sludge Filtration Attendant:MIRIAM NAVARRO Name Value Range Interpretation Description Data Sup porting Code Source(s) Document(s ) Glucose 93 mg/dL [place] [Mass/volume] Hospital in Capillary blood by Glucometer ID Date Data Source [id number] 04/22/2020 10:45:00 AM EDT [facility] Name Value Range Interpretation Description Data Sup porting Code Source(s) Document(s ) Bacteria No growth [place] identified in Hospital Blood by Culture ID Date Data Source [id number] 04/22/2020 10:45:00 AM [facility] TEST PERFORMED BY [facility] SENSITIVE [facility] CHEMILUMINESCENCE METHOD. Name Value Range Interpretation Description Data Sup porting Code Source(s) Document(s ) Troponin 0.36 [place] I.cardiac ng/mL Hospital [Mass/volume ] in Serum or Plasma ID Date Data Source [id number] 04/22/2020 10:45:00 AM [facility] Name Value Range Interpretation Description Data Sup porting Code Source(s) Document(s ) Lactate 0.5 [place] [Moles/volum mmol/L Hospital e] in Serum or Plasma ID Date Data Source [id number] 04/22/2020 10:44:00 AM [facility] Name Value Range Interpretation Description Data Sup porting Code Source(s) Document(s ) Bacteria No growth [place] identified in Hospital Urine by Culture ID Date Data Source [id number] 04/22/2020 10:44:00 AM [facility] Name Value Range Interpretation Description Data Sup porting Code Source(s) Document(s ) Urate crystals 1+ [place] amorphous Hospital [Presence] in Urine sediment by Light microscopy ID Date Data Source [id number] 04/22/2020 10:44:00 AM [facility] Value Range Interpretation Description Data Sup porting Code Source(s) Document(s ) Bacteria OCCASIONAL [place] [#/area] in Hospital Urine sediment by Microscopy high power field ID Date Data Source [id number] 04/22/2020 10:44:00 AM [facility] Value Range Interpretation Description Data Sup porting Code Source(s) Document(s ) Erythrocytes 0-3 [place] [#/area] in /[HPF] Hospital Urine sediment by Microscopy high power field ID Date Data Source [id number] 04/22/2020 10:44:00 AM EDT [facility] Name Value Range Interpretation Description Data Sup porting Code Source(s) Document(s ) Leukocytes 5-10 [place] [#/area] in /[HPF] Hospital Urine sediment by Microscopy high power field ID Date Data Source [id number] 04/22/2020 10:44:00 AM EDT [facility] Name Value Range Interpretation Code Description Data Supporting Source(s) Document(s ) Leukocyte 3+ [place] esterase Hospital [Presence] in Urine by Test strip ID Date Data Source [id number] 04/22/2020 10:44:00 AM EDT [facility] Name Value Range Interpretation Description Data Sup porting Code Source(s) Document(s ) URINE NEGATIVE [place] NITRITES Hospital ID Date Data Source [id number] 04/22/2020 10:44:00 AM EDT [facility] Name Value Range Interpretation Description Data Sup porting Code Source(s) Document(s ) Erythrocytes 2+ [place] [#/volume] in Hospital Urine by Test strip ID Date Data Source [id number] 04/22/2020 10:44:00 AM EDT [facility] Name Value Range Interpretation Code Description Data Sharon rce(s) Supporting Document(s ) Bilirubin. NEGATIVE [place] total Hospital [Presence] in Urine by Test strip ID Date Data Source [id number] 04/[facility] Description Data Sup porting Code Source(s) Document(s ) Urobilinogen 0.2 [place] [Units/volume] mg/dL Hospital in Urine by Test strip ID Date Data Source [id number] 04/22/2020 10:44:00 AM EDT [facility] Name Value Range Interpretation Description Data Sup porting Code Source(s) Document(s ) Ketones NEGATIVE [place] [Mass/volume Hospital ] in Urine by Test strip ID Date Data Source [id number] 04/22/2020 10:44:00 AM EDT [facility] Name Value Range Interpretation Description Data Sup porting Code Source(s) Document(s ) Glucose NEGATIVE [place] [Mass/volume Hospital ] in Urine by Test strip ID Date Data Source [id number] 04/22/2020 [facility] Interpretation Code Description Data Sharon rce(s) Supporting Document(s ) Protein 3+ [place] [Presence] Hospital in Urine by Test strip ID Date Data Source [id number] 04/22/2020 10:44:00 AM [facility] Value Range Interpretation Code Description Data Sharon rce(s) Supporting Document(s ) pH of Urine 7.5 [place] by Test Hospital strip ID Date Data Source [id number] 04/22/2020 [facility] Interpretation Code Description Data Supporting Source(s) Document(s ) Specific 1.011 [place] gravity of Hospital Urine by Test strip ID Date Data Source [id number] 04/22/2020 10:44:00 AM EDT [facility] Name Value Range Interpretation Description Data Sup porting Code Source(s) Document(s ) Clarity in Urine CLOUDY [place] by Refractometry Hospital automated ID Date Data Source [id number] 04/22/2020 10:44:00 AM EDT [facility] Name Value Range Interpretation Code Description Data Sharon rce(s) Supporting Document(s ) Color of YELLOW [facility] ID Date Data Source [id number] 04/21/2020 06:19:00 PM EDT [facility] Name Value Range Interpretation Code Description Data Sharon rce(s) Supporting Document(s ) Lipase 14 U/L [place] [Enzymatic Hospital activity/vo lume] in Serum or Plasma ID Date Data Source [id number] 04/21/2020 06:19:00 PM EDT [facility] Name Value Range Interpretation Description Data Sup porting Code Source(s) Document(s ) Bilirubin.d 0.4 mg/dL [facility] [Mass/volum e] in Serum or Plasma ID Date Data Source [id number] 04/21/2020 06:19:00 PM EDT [facility] Name Value Range Interpretation Code Description Data Sharon rce(s) Supporting Document(s ) Cells 100 [facility] Total [#] in Blood ID Date Data Source [id number] 04/21/2020 06:19:00 PM EDT [facility] PLT ESTIMATE DECREASED Name Value Range Interpretation Description Data Sup porting Code Source(s) Document(s ) PLATELET PRESENT [facility] ID Date Data Source [id number] 04/21/2020 06:19:00 PM EDT [facility] Name Value Range Interpretation Code Description Data Sharon rce(s) Supporting Document(s ) OVALOCYTES OCC [facility] ID Date Data Source [id number] 04/21/2020 06:19:00 PM EDT [facility] Name Value Range Interpretation Code Description Data Supporting Source(s) Document(s ) POLYCHROMASIA [facility] ID Date Data Source [id number] 04/21/2020 06:19:00 PM EDT [facility] Name Value Range Interpretation Code Description Data Sharon rce(s) Supporting Document(s ) MACROCYTOSIS OCC [facility] ID Date Data Source [id number] 04/21/2020 06:19:00 PM EDT [facility] Value Range Interpretation Description Data Sup porting Code Source(s) Document(s ) POIKILOCYTOSIS [facility] ID Date Data Source [id number] 04/21/2020 06:19:00 PM EDT [facility] Value Range Interpretation Code Description Data Sharon rce(s) Supporting Document(s ) ANISOCYTOSIS 2+ [facility] ID Date Data Source [id number] 04/21/2020 06:19:00 PM EDT [facility] Value Range Interpretation Description Data Sup porting Code Source(s) Document(s ) Basophils 0.06 [place] [#/volume] in 10*3/uL Hospital Blood by Manual count ID Date Data Source [id number] 04/21/2020 06:19:00 PM EDT [facility] Value Range Interpretation Description Data Sup porting Code Source(s) Document(s ) Eosinophils 0.06 [place] [#/volume] in 10*3/uL Hospital Blood by Manual count ID Date Data Source [id number] 04/21/2020 06:19:00 PM EDT [facility] Value Range Interpretation Description Data Sup porting Code Source(s) Document(s ) Monocytes 0.70 [place] [#/volume] in 10*3/uL Hospital Blood by Manual count ID Date Data Source [id number] 04/21/2020 06:19:00 PM EDT [facility] Name Value Range Interpretation Description Data Sup porting Code Source(s) Document(s ) Lymphocytes 0.45 [place] [#/volume] in 10*3/uL Hospital Blood by Manual count ID Date Data Source [id number] 04/21/2020 06:19:00 PM EDT [facility] Value Range Interpretation Description Data Sup porting Code Source(s) Document(s ) Neutrophils 5.06 [place] [#/volume] in 10*3/uL Hospital Blood by Manual count ID Date Data Source [id number] 04/21/2020 06:19:00 PM EDT [facility] Value Range Interpretation Description Data Sup porting Code Source(s) Document(s ) Basophils/100 1 % [place] leukocytes in Hospital Blood by Manual count ID Date Data Source [id number] 04/21/2020 06:19:00 PM EDT [facility] Value Range Interpretation Description Data Sup porting Code Source(s) Document(s ) Eosinophils/100 1 % [place] leukocytes in Hospital Blood by Manual count ID Date Data Source [id number] 04/21/2020 06:19:00 PM EDT [facility] Value Range Interpretation Description Data Sup porting Code Source(s) Document(s ) Monocytes/100 11 % [place] leukocytes in Hospital Blood by Manual count ID Date Data Source [id number] 04/21/2020 06:19:00 PM EDT [facility] Value Range Interpretation Description Data Sup porting Code Source(s) Document(s ) Lymphocytes/100 7 % [place] leukocytes in Hospital Blood by Manual count ID Date Data Source [id number] 04/21/2020 06:19:00 PM EDT [facility] Value Range Interpretation Description Data Sup porting Code Source(s) Document(s ) Neutrophils/100 79 % [place] leukocytes in Hospital Blood by Manual count ID Date Data Source [id number] 04/17/2020 12:48:00 PM EDT [facility] Name Value Range Interpretation Description Data Sup porting Code Source(s) Document(s ) 2019 Novel [facility] Coronavirus RNA Interpretation Unspecified Specimen Qualitative YAZMIN Probe Detection This lab was ordered by [facility] and reported by [facility]. ID Date Data Source [id number] 04/08/2020 05:08:00 PM EDT [facility] Name Value Range Interpretation Description Data Sup porting Code Source(s) Document(s ) SARS [facility] coronavirus 2 RNA This lab was ordered by [facility] and reported by [facility]. ID Date Data Source [id number] 04/04/2020 02:01:00 PM EDT [facility] Name Value Range Interpretation Description Data Sup porting Code Source(s) Document(s ) 2019 Novel [facility] Coronavirus RNA Interpretation Unspecified Specimen Qualitative YAZMIN Probe Detection This lab was ordered by [facility] and reported by [facility]. ID Date Data Source [id number] 03/31/2020 10:01:00 PM EDT [facility] Name Value Range Interpretation Description Data Sup porting Code Source(s) Document(s ) Lactate 0.5 [place] [Moles/volum mmol/L Hospital e] in Serum or Plasma ID Date Data Source [id number] 03/31/2020 08:49:00 PM EDT [facility] Name Value Range Interpretation Description Data Sup porting Code Source(s) Document(s ) IONIZED 1.17 [place] CALCIUM mmol/L Hospital ID Date Data Source [id number] 03/31/2020 08:49:00 PM EDT [facility] Name Value Range Interpretation Description Data Sup porting Code Source(s) Document(s ) LACTIC ACID 0.6 mmol/L [place] (ABG) [facility] ID Date Data Source [id number] 03/31/2020 08:49:00 PM EDT [facility] Name Value Range Interpretation Code Description Data Supporting Source(s) Document(s ) METHEMOGLOBIN 0.3 % [facility] ID Date Data Source [id number] 03/31/2020 08:49:00 PM EDT [facility] Value Range Interpretation Description Data Sup porting Code Source(s) Document(s ) CARBOXYHEMOGLOBIN 1.4 % [facility] ID Date Data Source [id number] 03/31/2020 08:49:00 PM EDT [facility] Value Range Interpretation Code Description Data Sharon rce(s) Supporting Document(s ) ABG TEMP 98.0 [facility] ID Date Data Source [id number] 03/31/2020 08:49:00 PM EDT [facility] Value Range Interpretation Code Description Data Sharon rce(s) Supporting Document(s ) FIO2 28 % [facility] ID Date Data Source [id number] 03/31/2020 08:49:00 PM EDT [facility] Value Range Interpretation Code Description Data Sharon rce(s) Supporting Document(s ) ABG BE -0.4 mmol/L [facility] ID Date Data Source [id number] 03/31/2020 08:49:00 PM EDT [facility] Value Range Interpretation Code Description Data Sharon rce(s) Supporting Document(s ) ABG O2SAT 93 % [facility] ID Date Data Source [id number] 03/31/2020 08:49:00 PM EDT [facility] Value Range Interpretation Code Description Data Sharon rce(s) Supporting Document(s ) ABG HCO3 26 mmol/L [facility] ID Date Data Source [id number] 03/31/2020 08:49:00 PM EDT [facility] Value Range Interpretation Code Description Data Sharon rce(s) Supporting Document(s ) ABG PO2 76 mm[Hg] [facility] ID Date Data Source [id number] 03/31/2020 08:49:00 PM EDT [facility] Name Value Range Interpretation Code Description Data Sharon rce(s) Supporting Document(s ) ABG PCO2 50 mm[Hg] [facility] ID Date Data Source [id number] 03/31/2020 08:49:00 PM EDT [facility] Name Value Range Interpretation Code Description Data Sharon rce(s) Supporting Document(s ) ABG PH 7.33 [facility] ID Date Data Source [id number] 03/31/2020 08:49:00 PM EDT [facility] Value Range Interpretation Code Description Data Sharon rce(s) Supporting Document(s ) ABG MODE 2LPM/NC [place] 28% Hospital ID Date Data Source [id number] 03/31/2020 08:49:00 PM EDT [facility] Value Range Interpretation Code Description Data Supporting Source(s) Document(s ) ABG SOURCE ARTERIAL [facility] ID Date Data Source [id number] 03/31/2020 08:49:00 PM EDT [facility] Value Range Interpretation Code Description Data Sharon rce(s) Supporting Document(s ) XAVIER TEST POSITIVE [facility] ID Date Data Source [id number] 03/31/2020 08:49:00 PM EDT [facility] Value Range Interpretation Description Data Sup porting Code Source(s) Document(s ) IONIZED 1.17 [place] CALCIUM mmol/L Hospital ID Date Data Source [id number] 03/31/2020 08:49:00 PM EDT [facility] Value Range Interpretation Description Data Sup porting Code Source(s) Document(s ) LACTIC ACID 0.6 mmol/L [place] ([facility]) Hospital ID Date Data Source [id number] 03/31/2020 08:49:00 PM EDT [facility] Value Range Interpretation Code Description Data Supporting Source(s) Document(s ) METHEMOGLOBIN 0.3 % [facility] ID Date Data Source [id number] 03/31/2020 08:49:00 PM EDT [facility] Name Value Range Interpretation Description Data Sup porting Code Source(s) Document(s ) CARBOXYHEMOGLOBIN 1.4 % [facility] ID Date Data Source [id number] 03/31/2020 08:49:00 PM EDT [facility] Value Range Interpretation Code Description Data Sharon rce(s) Supporting Document(s ) ABG TEMP 98.0 [facility] ID Date Data Source [id number] 03/31/2020 08:49:00 PM EDT [facility] Value Range Interpretation Code Description Data Sharon rce(s) Supporting Document(s ) FIO2 28 % [facility] ID Date Data Source [id number] 03/31/2020 08:49:00 PM EDT [facility] Value Range Interpretation Code Description Data Sharon rce(s) Supporting Document(s ) ABG BE -0.4 mmol/L [facility] ID Date Data Source [id number] 03/31/2020 08:49:00 PM EDT [facility] Value Range Interpretation Code Description Data Sharon rce(s) Supporting Document(s ) ABG O2SAT 93 % [facility] ID Date Data Source [id number] 03/31/2020 08:49:00 PM EDT [facility] Name Value Range Interpretation Code Description Data Sharon rce(s) Supporting Document(s ) ABG HCO3 26 mmol/L [facility] ID Date Data Source [id number] 03/31/2020 08:49:00 PM EDT [facility] Value Range Interpretation Code Description Data Sharon rce(s) Supporting Document(s ) ABG PO2 76 mm[Hg] [facility] ID Date Data Source [id number] 03/31/2020 08:49:00 PM EDT [facility] Value Range Interpretation Code Description Data Sharon rce(s) Supporting Document(s ) ABG PCO2 50 mm[Hg] [facility] ID Date Data Source [id number] 03/31/2020 08:49:00 PM EDT [facility] Value Range Interpretation Code Description Data Sharon rce(s) Supporting Document(s ) ABG PH 7.33 [facility] ID Date Data Source [id number] 03/31/2020 08:49:00 PM EDT [facility] Value Range Interpretation Code Description Data Sharon rce(s) Supporting Document(s ) ABG MODE 2LPM/NC [facility] 28% Hospital ID Date Data Source [id number] 03/31/2020 08:49:00 PM EDT [facility] Value Range Interpretation Code Description Data Supporting Source(s) Document(s ) ABG SOURCE ARTERIAL [facility] ID Date Data Source [id number] 03/31/2020 08:49:00 PM EDT [facility] Value Range Interpretation Code Description Data Sharon rce(s) Supporting Document(s ) XAVIER TEST POSITIVE [facility] ID Date Data Source [id number] 03/31/2020 07:57:00 PM EDT [facility] Name Value Range Interpretation Description Data Sup porting Code Source(s) Document(s ) Ammonia 26 mmol/L [place] [Moles/volum Hospital e] in Plasma ID Date Data Source [id number] 03/31/2020 07:57:00 PM EDT [facility] Name Value Range Interpretation Description Data Sup porting Code Source(s) Document(s ) Ammonia 26 mmol/L [place] [Moles/volum Hospital e] in Plasma ID Date Data Source [id number] 03/28/2020 08:24:00 AM EDT [facility] Name Value Range Interpretation Description Data Sup porting Code Source(s) Document(s ) Phosphate 6.5 mg/dL [place] [Mass/volume] Hospital in Serum or Plasma ID Date Data Source [id number] 03/28/2020 08:24:00 AM EDT [facility] Name Value Range Interpretation Description Data Sup porting Code Source(s) Document(s ) Calcium 8.1 mg/dL [place] [Mass/volume Hospital ] in Serum or Plasma ID Date Data Source [id number] 03/28/2020 [facility] Interpretation Code Description Data Sharon rce(s) Supporting Document(s ) Urea 6.4 [place] nitrogen/Cre Hospital atinine [Mass Ratio] in Serum or Plasma ID Date Data Source [id number] 03/28/2020 08:24:00 AM EDT [facility] Name Value Range Interpretation Description Data Sup porting Code Source(s) Document(s ) Creatinine 4.4 mg/dL [place] [Mass/volume] Hospital in Serum or Plasma ID Date Data Source [id number] 03/28/2020 08:24:00 AM EDT [facility] Name Value Range Interpretation Description Data Sup porting Code Source(s) Document(s ) Urea 28 mg/dL [place] nitrogen Hospital [Mass/volume ] in Serum or Plasma ID Date Data Source [id number] 03/28/2020 08:24:00 AM EDT [facility] Name Value Range Interpretation Code Description Data Sharon rce(s) Supporting Document(s ) Anion gap in [address] [place] [address] [facility] Plasma ID Date Data Source [id number] 03/28/2020 08:24:00 AM EDT [facility] Name Value Range Interpretation Description Data Sup porting Code Source(s) Document(s ) Carbon 29 mmol/L [place] dioxide, Hospital total [Moles/volu me] in Serum or Plasma ID Date Data Source [id number] 03/28/2020 08:24:00 AM EDT [facility] Name Value Range Interpretation Description Data Sup porting Code Source(s) Document(s ) Chloride 98 mmol/L [place] [Moles/volum Hospital e] in Serum or Plasma ID Date Data Source [id number] 03/28/2020 08:24:00 AM EDT [facility] HEMOLYSIS Name Value Range Interpretation Description Data Sup porting Code Source(s) Document(s ) Potassium 4.2 [place] [Moles/volume mmol/L Hospital ] in Serum or Plasma ID Date Data Source [id number] 03/28/2020 08:24:00 AM EDT [facility] Name Value Range Interpretation Description Data Sup porting Code Source(s) Document(s ) Sodium 137 mmol/L [place] [Moles/volu Hospital me] in Serum or Plasma ID Date Data Source [id number] 03/28/2020 08:24:00 AM EDT [facility] Name Value Range Interpretation Description Data Sup porting Code Source(s) Document(s ) Glucose 81 mg/dL [place] [Mass/volume Hospital ] in Serum or Plasma ID Date Data Source [id number] 03/[facility] Description Data Sup porting Code Source(s) Document(s ) Platelet mean 12.2 fL [place] volume Hospital [Entitic volume] in Blood by Automated count ID Date Data Source [id number] 03/28/2020 08:24:00 AM EDT [facility] Value Range Interpretation Description Data Sup porting Code Source(s) Document(s ) Platelets 62 [place] [#/volume] in 10*3/uL Hospital Blood by Automated count ID Date Data Source [id number] 03/28/2020 [facility] Interpretation Description Data Sup porting Code Source(s) Document(s ) Erythrocyte 16.2 % [facility] Hospital width [Ratio] by Automated count ID Date Data Source [id number] 03/28/2020 08:24:00 AM [facility] Value Range Interpretation Description Data Sup porting Code Source(s) Document(s ) Erythrocyte mean 30.5 [place] corpuscular g/dL Hospital hemoglobin concentration [Mass/volume] by Automated count ID Date Data Source [id number] 03/28/2020 [facility] Interpretation Description Data Sup porting Code Source(s) Document(s ) Erythrocyte 32.4 pg [facility] corpuscular hemoglobin [Entitic mass] by Automated count ID Date Data Source [id number] 03/28/2020 08:24:00 AM [facility] Value Range Interpretation Description Data Sup porting Code Source(s) Document(s ) [facility] by Automated count ID Date Data Source [id number] 03/28/2020 08:24:00 AM EDT [facility] Name Value Range Interpretation Description Data Sup porting Code Source(s) Document(s ) Hematocrit 30.2 % [place] [Volume Hospital Fraction] of Blood by Automated count ID Date Data Source [id number] 03/28/2020 08:24:00 AM EDT [facility] Name Value Range Interpretation Description Data Sup porting Code Source(s) Document(s ) Hemoglobin 9.2 g/dL [place] [Mass/volume] Hospital in Blood ID Date Data Source [id number] 03/28/2020 08:24:00 AM EDT [facility] Value Range Interpretation Description Data Sup porting Code Source(s) Document(s ) Erythrocytes 2.84 [place] [#/volume] in 10*6/uL Hospital Blood by Automated count ID Date Data Source [id number] 03/28/2020 08:24:00 AM EDT [facility] Value Range Interpretation Description Data Sup porting Code Source(s) Document(s ) Leukocytes 3.6 [place] [#/volume] in 10*3/uL Hospital Blood by Automated count ID Date Data Source [id number] 03/27/2020 08:02:00 AM EDT [facility] Value Range Interpretation Code Description Data Sharon rce(s) Supporting Document(s ) Albumin/Glob 1.4 [place] ulin [Mass Hospital Ratio] in Serum or Plasma ID Date Data Source [id number] 03/27/2020 08:02:00 AM EDT [facility] Value Range Interpretation Description Data Sup porting Code Source(s) Document(s ) Albumin 3.6 g/dL [place] [Mass/volume Hospital ] in Serum or Plasma ID Date Data Source [id number] 03/27/2020 [facility] Range Interpretation Description Data Sup porting Code Source(s) Document(s ) Protein 6.2 g/dL [place] [Mass/volume Hospital ] in Serum or Plasma ID Date Data Source [id number] 03/27/2020 08:02:00 AM EDT [facility] Name Value Range Interpretation Description Data Sup porting Code Source(s) Document(s ) Aspartate 16 U/L White aminotransferase [place] [Enzymatic Hospital activity/volume] in Serum or Plasma ID Date Data Source [id number] 03/27/2020 08:02:00 AM [facility] Name Value Range Interpretation Description Data Sup porting Code Source(s) Document(s ) Alanine 12 U/L White aminotransferase [place] [Enzymatic Hospital activity/volume] in Serum or Plasma ID Date Data Source [id number] 03/27/2020 08:02:00 AM [facility] Name Value Range Interpretation Description Data Sup porting Code Source(s) Document(s ) Alkaline 76 U/L [place] phosphatase Hospital [Enzymatic activity/volume ] in Serum or Plasma ID Date Data Source [id number] 03/27/2020 08:02:00 AM [facility] Name Value Range Interpretation Description Data Sup porting Code Source(s) Document(s ) Bilirubin.t 0.4 mg/dL [facility] [Mass/volum e] in Serum or Plasma ID Date Data Source [id number] 03/26/2020 09:45:00 AM [facility] Sludge Filtration Attendant:HOSSEIN MICHAEL Name Value Range Interpretation Description Data Sup porting Code Source(s) Document(s ) Glucose 92 mg/dL [place] [Mass/volume] Hospital in Capillary blood by Glucometer ID Date Data Source [id number] 03/25/2020 07:47:00 PM [facility] REFERENCE RANGES: NONE DETECTED <20 MG/DL NONE TO MILD EUPHORIA 20-49 MG/DL MILD EUPHORIA 50-99 MG/DL MODERATE EUPHORIA 100-149 MG/DL INTOXICATION 150-300 MG/DL Name Value Range Interpretation Description Data Sup porting Code Source(s) Document(s ) Ethanol < 20 [place] [Mass/volume mg/dL Hospital ] in Serum or Plasma ID Date Data Source [id number] 03/25/2020 07:47:00 PM [facility] TEST RESULT IS A TOTAL TRICYCLIC VALUE.T RICYCLIC ANTIDEPRESSANT REFERENCE RANGE: AMITRIPTYLINE AND METABOLITE (NORTRIPTYL INE) TOTAL THERAPEUTIC: 75 - 225 NG/ML. TOTAL TOXIC: > 400 NG/ML. NORTRIPTYLINE ONLY TOTAL THERAPEUTIC: 50 - 150 NG/ML. TOTAL TOXIC: > 400 NG/ML. IMIPRAMINE AND METABOLITE (DESIPRAMINE) TOTAL THERAPEUTIC: 125 - 175 NG/ML. TOTAL TOXIC: > 400 NG/ML. Name Value Range Interpretation Description Data Sup porting Code Source(s) Document(s ) TRICYCLIC 140 [place] ANTIDEPRESSANT ng/mL Hospital ID Date Data Source [id number] 03/25/2020 07:47:00 PM [facility] REFERENCE RANGES: ANALGESIC: 0.0 - 10.0 MG/DL. ARTHRITIC THERAPY: 15.0 - 30.0 MG/DL. Name Value Range Interpretation Description Data Sup porting Code Source(s) Document(s ) Salicylates < 3.0 [place] [Mass/volume] mg/dL Hospital in Serum or Plasma ID Date Data Source [id number] 03/25/2020 07:47:00 PM [facility] THERAPEUTIC RANGE: 10.0-30.0 UG/MLTOXIC RANGE: 4 HRS AFTER INGESTION >150 UG/ML 12 HRS AFTER INGESTION >35 UG/ML Name Value Range Interpretation Description Data Sup porting Code Source(s) Document(s ) ACETAMINOPHEN < 10.0 [place] ug/mL Hospital ID Date Data Source [id number] 03/25/2020 07:47:00 PM [facility] REFERENCE RANGES: NONE DETECTED <20 MG/DL NONE TO MILD EUPHORIA 20-49 MG/DL MILD EUPHORIA 50-99 MG/DL MODERATE EUPHORIA 100-149 MG/DL INTOXICATION 150-300 MG/DL Name Value Range Interpretation Description Data Sup porting Code Source(s) Document(s ) Ethanol < 20 [place] [Mass/volume mg/dL Hospital ] in Serum or Plasma ID Date Data Source [id number] 03/25/2020 07:47:00 PM [facility] TEST RESULT IS A TOTAL TRICYCLIC VALUE.T RICYCLIC ANTIDEPRESSANT REFERENCE RANGE: AMITRIPTYLINE AND METABOLITE (NORTRIPTYL INE) TOTAL THERAPEUTIC: 75 - 225 NG/ML. TOTAL TOXIC: > 400 NG/ML. NORTRIPTYLINE ONLY TOTAL THERAPEUTIC: 50 - 150 NG/ML. TOTAL TOXIC: > 400 NG/ML. IMIPRAMINE AND METABOLITE (DESIPRAMINE) TOTAL THERAPEUTIC: 125 - 175 NG/ML. TOTAL TOXIC: > 400 NG/ML. Name Value Range Interpretation Description Data Sup porting Code Source(s) Document(s ) TRICYCLIC 140 [place] ANTIDEPRESSANT ng/mL Hospital ID Date Data Source [id number] 03/25/2020 07:47:00 PM [facility] REFERENCE RANGES: ANALGESIC: 0.0 - 10.0 MG/DL. ARTHRITIC THERAPY: 15.0 - 30.0 MG/DL. Name Value Range Interpretation Description Data Sup porting Code Source(s) Document(s ) Salicylates < 3.0 [place] [Mass/volume] mg/dL Hospital in Serum or Plasma ID Date Data Source [id number] 03/25/2020 07:47:00 PM [facility] THERAPEUTIC RANGE: 10.0-30.0 UG/MLTOXIC RANGE: 4 HRS AFTER INGESTION >150 UG/ML 12 HRS AFTER INGESTION >35 UG/ML Name Value Range Interpretation Description Data Sup porting Code Source(s) Document(s ) ACETAMINOPHEN < 10.0 [place] ug/mL Hospital ID Date Data Source [id number] 03/25/2020 07:47:00 PM EDT [facility] Name Value Range Interpretation Code Description Data Sharon rce(s) Supporting Document(s ) Lipase 15 U/L [place] [Enzymatic Hospital activity/vo lume] in Serum or Plasma ID Date Data Source [id number] 02/23/2020 01:13:00 PM EDT [facility] TEST PERFORMED BY [email or web address]ENSIT[employer] [facility] CHEMILUMINESCENCE METHOD. Name Value Range Interpretation Description Data Sup porting Code Source(s) Document(s ) Troponin 0.10 [place] I.cardiac ng/mL Hospital [Mass/volume ] in Serum or Plasma ID Date Data Source [id number] 02/23/2020 01:13:00 PM EDT [facility] Name Value Range Interpretation Description Data Sup porting Code Source(s) Document(s ) Calcium 8.0 mg/dL [place] [Mass/volume Hospital ] in Serum or Plasma ID Date Data Source [id number] 02/23/2020 01:13:00 PM EDT [facility] Name Value Range Interpretation Code Description Data Sharon rce(s) Supporting Document(s ) Urea 5.3 [place] nitrogen/Cre Hospital atinine [Mass Ratio] in Serum or Plasma ID Date Data Source [id number] 02/23/2020 01:13:00 PM EDT [facility] Name Value Range Interpretation Description Data Sup porting Code Source(s) Document(s ) Creatinine 4.5 mg/dL [place] [Mass/volume] Hospital in Serum or Plasma ID Date Data Source [id number] 02/23/2020 01:13:00 PM EDT [facility] Name Value Range Interpretation Description Data Sup porting Code Source(s) Document(s ) Urea 24 mg/dL [place] nitrogen Hospital [Mass/volume ] in Serum or Plasma ID Date Data Source [id number] 02/23/2020 01:13:00 PM EDT [facility] Name Value Range Interpretation Code Description Data Sharon rce(s) Supporting Document(s ) Anion gap in [address] [place] [address] [facility] Plasma ID Date Data Source [id number] 02/23/2020 01:13:00 PM EDT [facility] Name Value Range Interpretation Description Data Sup porting Code Source(s) Document(s ) Carbon 26 mmol/L [place] dioxide, Hospital total [Moles/volu me] in Serum or Plasma ID Date Data Source [id number] 02/23/2020 01:13:00 PM EDT [facility] Name Value Range Interpretation Description Data Sup porting Code Source(s) Document(s ) Chloride 103 [place] [Moles/volum mmol/L Hospital e] in Serum or Plasma ID Date Data Source [id number] 02/23/2020 01:13:00 PM EDT [facility] SLIGHT HEMOLYSIS Name Value Range Interpretation Description Data Sup porting Code Source(s) Document(s ) Potassium 5.1 [place] [Moles/volume mmol/L Hospital ] in Serum or Plasma ID Date Data Source [id number] 02/23/2020 01:13:00 PM EDT [facility] Name Value Range Interpretation Description Data Sup porting Code Source(s) Document(s ) Sodium 139 mmol/L [place] [Moles/volu Hospital me] in Serum or Plasma ID Date Data Source [id number] 02/23/2020 01:13:00 PM EDT [facility] Name Value Range Interpretation Description Data Sup porting Code Source(s) Document(s ) Glucose 102 mg/dL [place] [Mass/volume Hospital ] in Serum or Plasma ID Date Data Source [id number] 02/23/2020 01:13:00 PM EDT [facility] Name Value Range Interpretation Code Description Data Supporting Source(s) Document(s ) NUCLEATED RBCS 0.0 % [place] (AUTO Hospital DIFF%)DIS ID Date Data Source [id number] 02/23/2020 01:13:00 PM EDT [facility] Name Value Range Interpretation Description Data Sup porting Code Source(s) Document(s ) Differential MANUAL [place] cell count Hospital method - Blood ID Date Data Source [id number] 02/23/2020 01:13:00 PM EDT [facility] Name Value Range Interpretation Code Description Data Sharon rce(s) Supporting Document(s ) Cells 100 [facility] Hospital Total [#] in Blood ID Date Data Source [id number] 02/23/2020 01:13:00 PM EDT [facility] PLT ESTIMATE DECREASED Name Value Range Interpretation Description Data Sup porting Code Source(s) Document(s ) PLATELET PRESENT [facility] Hospital ID Date Data Source [id number] 02/23/2020 01:13:00 PM EDT [facility] Name Value Range Interpretation Code Description Data Sharon rce(s) Supporting Document(s ) SCHISTOCYTES OCC [facility] ID Date Data Source [id number] 02/23/2020 01:13:00 PM EDT [facility] Name Value Range Interpretation Code Description Data Sharon rce(s) Supporting Document(s ) ARCHIE CELLS OCC [facility] ID Date Data Source [id number] 02/23/2020 01:13:00 PM EDT [facility] Name Value Range Interpretation Code Description Data Sharon rce(s) Supporting Document(s ) TARGET CELLS OCC [facility] ID Date Data Source [id number] 02/23/2020 01:13:00 PM EDT [facility] Name Value Range Interpretation Code Description Data Sharon rce(s) Supporting Document(s ) TEARDROP OCC [facility] Hospital ID Date Data Source [id number] 02/23/2020 01:13:00 PM EDT [facility] Name Value Range Interpretation Code Description Data Sharon rce(s) Supporting Document(s ) OVALOCYTES 1+ [facility] ID Date Data Source [id number] 02/23/2020 01:13:00 PM EDT [facility] Value Range Interpretation Code Description Data Supporting Source(s) Document(s ) POLYCHROMASIA 1+ [facility] ID Date Data Source [id number] 02/23/2020 01:13:00 PM EDT [facility] Name Value Range Interpretation Code Description Data Sharon rce(s) Supporting Document(s ) HYPOCHROMIA [facility] ID Date Data Source [id number] 02/23/2020 01:13:00 PM EDT [facility] Name Value Range Interpretation Code Description Data Sharon rce(s) Supporting Document(s ) MACROCYTOSIS 2+ [facility] ID Date Data Source [id number] 02/23/2020 01:13:00 PM EDT [facility] Value Range Interpretation Code Description Data Sharon rce(s) Supporting Document(s ) MICROCYTOSIS [facility] ID Date Data Source [id number] 02/23/2020 01:13:00 PM EDT [facility] Name Value Range Interpretation Description Data Sup porting Code Source(s) Document(s ) POIKILOCYTOSIS 1+ [facility] ID Date Data Source [id number] 02/23/2020 01:13:00 PM EDT [facility] Name Value Range Interpretation Code Description Data Sharon rce(s) Supporting Document(s ) ANISOCYTOSIS 1+ [facility] ID Date Data Source [id number] 02/23/2020 01:13:00 PM EDT [facility] Name Value Range Interpretation Description Data Sup porting Code Source(s) Document(s ) Basophils 0.04 [place] [#/volume] in 10*3/uL Hospital Blood by Manual count ID Date Data Source [id number] 02/23/2020 01:13:00 PM EDT [facility] Value Range Interpretation Description Data Sup porting Code Source(s) Document(s ) Eosinophils 0.29 [place] [#/volume] in 10*3/uL Hospital Blood by Manual count ID Date Data Source [id number] 02/23/2020 01:13:00 PM EDT [facility] Name Value Range Interpretation Description Data Sup porting Code Source(s) Document(s ) Monocytes 0.33 [place] [#/volume] in 10*3/uL Hospital Blood by Manual count ID Date Data Source [id number] 02/23/2020 01:13:00 PM EDT [facility] Name Value Range Interpretation Description Data Sup porting Code Source(s) Document(s ) Lymphocytes 0.74 [place] [#/volume] in 10*3/uL Hospital Blood by Manual count ID Date Data Source [id number] 02/23/2020 01:13:00 PM EDT [facility] Name Value Range Interpretation Description Data Sup porting Code Source(s) Document(s ) Neutrophils 2.67 [place] [#/volume] in 10*3/uL Hospital Blood by Manual count ID Date Data Source [id number] 02/23/2020 01:13:00 PM EDT [facility] Value Range Interpretation Description Data Sup porting Code Source(s) Document(s ) Basophils/100 1 % [place] leukocytes in Hospital Blood by Manual count ID Date Data Source [id number] 02/23/2020 01:13:00 PM EDT [facility] Value Range Interpretation Description Data Sup porting Code Source(s) Document(s ) Eosinophils/100 7 % [place] leukocytes in Hospital Blood by Manual count ID Date Data Source [id number] 02/23/2020 01:13:00 PM EDT [facility] Value Range Interpretation Description Data Sup porting Code Source(s) Document(s ) Monocytes/100 8 % [place] leukocytes in Hospital Blood by Manual count ID Date Data Source [id number] 02/23/2020 01:13:00 PM EDT [facility] Value Range Interpretation Description Data Sup porting Code Source(s) Document(s ) Lymphocytes/100 18 % [place] leukocytes in Hospital Blood by Manual count ID Date Data Source [id number] 02/23/2020 01:13:00 PM EDT [facility] Value Range Interpretation Description Data Sup porting Code Source(s) Document(s ) Neutrophils/100 65 % [place] leukocytes in Hospital Blood by Manual count ID Date Data Source [id number] 02/23/2020 01:13:00 PM EDT [facility] Value Range Interpretation Description Data Sup porting Code Source(s) Document(s ) Platelet mean 11.9 fL [place] volume Hospital [Entitic volume] in Blood by Automated count ID Date Data Source [id number] 02/23/2020 01:13:00 PM EDT [facility] Value Range Interpretation Description Data Sup porting Code Source(s) Document(s ) Platelets 70 [place] [#/volume] in 10*3/uL Hospital Blood by Automated count ID Date Data Source [id number] 02/[facility] Description Data Sup porting Code Source(s) Document(s ) Erythrocyte 15.0 % [facility] Hospital width [Ratio] by Automated count ID Date Data Source [id number] 02/23/2020 [facility] Interpretation Description Data Sup porting Code Source(s) Document(s ) Erythrocyte mean 29.8 [place] corpuscular g/dL Hospital hemoglobin concentration [Mass/volume] by Automated count ID Date Data Source [id number] 02/23/2020 [facility] Interpretation Description Data Sup porting Code Source(s) Document(s ) Erythrocyte 32.1 pg [facility] corpuscular hemoglobin [Entitic mass] by Automated count ID Date Data Source [id number] 02/23/2020 01:13:00 PM [facility] Value Range Interpretation Description Data Sup porting Code Source(s) Document(s ) Erythrocyte 107.7 fL [facility] corpuscular volume [Entitic volume] by Automated count ID Date Data Source [id number] 02/23/2020 01:13:00 PM [facility] Value Range Interpretation Description Data Sup porting Code Source(s) Document(s ) Hematocrit 29.5 % [place] [Volume Hospital Fraction] of Blood by Automated count ID Date Data Source [id number] 02/23/2020 01:13:00 PM EDT [facility] Name Value Range Interpretation Description Data Sup porting Code Source(s) Document(s ) Hemoglobin 8.8 g/dL [place] [Mass/volume] Hospital in Blood ID Date Data Source [id number] 02/23/2020 01:13:00 PM EDT [facility] Name Value Range Interpretation Description Data Sup porting Code Source(s) Document(s ) Erythrocytes 2.74 [place] [#/volume] in 10*6/uL Hospital Blood by Automated count ID Date Data Source [id number] 02/23/2020 01:13:00 PM EDT [facility] Value Range Interpretation Description Data Sup porting Code Source(s) Document(s ) Leukocytes 4.1 [place] [#/volume] in 10*3/uL Hospital Blood by Automated count ID Date Data Source [id number] 02/09/2020 10:46:00 AM EDT [facility] Value Range Interpretation Code Description Data Sharon rce(s) Supporting Document(s ) Anion gap in [address] [place] Serum [address] [facility] Plasma ID Date Data Source [id number] 02/09/2020 10:46:00 AM EDT [facility] Name Value Range Interpretation Description Data Sup porting Code Source(s) Document(s ) Carbon 28 mmol/L [place] dioxide, Hospital total [Moles/volu me] in Serum or Plasma ID Date Data Source [id number] 02/09/2020 10:46:00 AM EDT [facility] Name Value Range Interpretation Description Data Sup porting Code Source(s) Document(s ) Chloride 99 mmol/L [place] [Moles/volum Hospital e] in Serum or Plasma ID Date Data Source [id number] 02/09/2020 10:46:00 AM EDT [facility] Name Value Range Interpretation Description Data Sup porting Code Source(s) Document(s ) Potassium 4.2 [place] [Moles/volume mmol/L Hospital ] in Serum or Plasma ID Date Data Source [id number] 02/09/2020 10:46:00 AM EDT [facility] Value Range Interpretation Description Data Sup porting Code Source(s) Document(s ) Sodium 140 mmol/L [place] [Moles/volu Hospital fl] in Serum or Plasma ID Date Data Source [id number] 02/09/2020 10:46:00 AM EDT [facility] Value Range Interpretation Description Data Sup porting Code Source(s) Document(s ) Glucose 106 mg/dL [place] [Mass/volume Hospital ] in Serum or Plasma ID Date Data Source [id number] 02/09/2020 10:46:00 AM EDT [facility] Value Range Interpretation Description Data Sup porting Code Source(s) Document(s ) Platelet mean 12.1 fL [facility] [Entitic volume] in Blood by Automated count ID Date Data Source [id number] 02/09/2020 10:46:00 AM EDT [facility] Value Range Interpretation Description Data Sup porting Code Source(s) Document(s ) Platelets 88 [place] [#/volume] in 10*3/uL Hospital Blood by Automated count ID Date Data Source [id number] 02/09/2020 10:46:00 AM EDT [facility] Value Range Interpretation Description Data Sup porting Code Source(s) Document(s ) Erythrocyte 14.7 % [facility] width [Ratio] by Automated count ID Date Data Source [id number] 02/09/2020 10:46:00 AM EDT [facility] Value Range Interpretation Description Data Sup porting Code Source(s) Document(s ) Erythrocyte mean 29.7 [place] corpuscular g/dL Hospital hemoglobin concentration [Mass/volume] by Automated count ID Date Data Source [id number] 02/09/2020 10:46:00 AM EDT [facility] Value Range Interpretation Description Data Sup porting Code Source(s) Document(s ) Erythrocyte 31.8 pg [place] [facility] corpuscular hemoglobin [Entitic mass] by Automated count ID Date Data Source [id number] 02/09/2020 10:46:00 AM EDT [facility] Value Range Interpretation Description Data Sup porting Code Source(s) Document(s ) Erythrocyte 107.1 fL [facility] Hospital corpuscular volume [Entitic volume] by Automated count ID Date Data Source [id number] 02/09/2020 10:46:00 AM EDT [facility] Value Range Interpretation Description Data Sup porting Code Source(s) Document(s ) Hematocrit 30.3 % [place] [Volume Hospital Fraction] of Blood by Automated count ID Date Data Source [id number] 02/09/2020 [facility] Interpretation Description Data Sup porting Code Source(s) Document(s ) Hemoglobin 9.0 g/dL [place] [Mass/volume] Hospital in Blood ID Date Data Source [id number] 02/09/2020 10:46:00 AM EDT [facility] Value Range Interpretation Description Data Sup porting Code Source(s) Document(s ) Erythrocytes 2.83 [place] [#/volume] in 10*6/uL Hospital Blood by Automated count ID Date Data Source [id number] 02/09/2020 10:46:00 AM EDT [facility] Value Range Interpretation Description Data Sup porting Code Source(s) Document(s ) Leukocytes 4.7 [place] [#/volume] in 10*3/uL Hospital Blood by Automated count ID Date Data Source [id number] 02/09/2020 10:46:00 AM EDT [facility] Name Value Range Interpretation Description Data Sup porting Code Source(s) Document(s ) Aspartate 10 U/L [facility] aminotransferase [place] [Enzymatic Hospital activity/volume] in Serum or Plasma ID Date Data Source [id number] 02/09/2020 10:46:00 AM EDT [facility] Name Value Range Interpretation Description Data Sup porting Code Source(s) Document(s ) Alanine < 8 U/L [facility] aminotransferase [place] [Enzymatic Hospital activity/volume] in Serum or Plasma ID Date Data Source [id number] 02/09/2020 10:46:00 AM EDT [facility] Value Range Interpretation Description Data Sup porting Code Source(s) Document(s ) Alkaline 95 U/L [place] phosphatase Hospital [Enzymatic activity/volume ] in Serum or Plasma ID Date Data Source [id number] 02/09/2020 [facility] Interpretation Description Data Sup porting Code Source(s) Document(s ) Bilirubin.t 0.2 mg/dL [facility] [Mass/volum e] in Serum or Plasma ID Date Data Source [id number] 02/09/2020 10:46:[facility] Range Interpretation Code Description Data Sharon rce(s) Supporting Document(s ) [facility] in Serum or Plasma ID Date Data Source [id number] 02/09/2020 10:46:[facility] Range Interpretation Description Data Sup porting Code Source(s) Document(s ) Albumin 3.8 g/dL [place] [Mass/volume Hospital ] in Serum or Plasma ID Date Data Source [id number] 02/09/2020 10:46:00 AM [facility] Name Value Range Interpretation Description Data Sup porting Code Source(s) Document(s ) Protein 6.2 g/dL [place] [Mass/volume Hospital ] in Serum or Plasma ID Date Data Source [id number] 02/09/2020 10:46:00 AM [facility] Name Value Range Interpretation Description Data Sup porting Code Source(s) Document(s ) Calcium 7.5 mg/dL [place] [Mass/volume Hospital ] in Serum or Plasma ID Date Data Source [id number] 02/09/2020 10:46:00 AM [facility] Name Value Range Interpretation Code Description Data Sharon rce(s) Supporting Document(s ) Urea 7.2 [place] nitrogen/Cre Hospital atinine [Mass Ratio] in Serum or Plasma ID Date Data Source [id number] 02/09/2020 10:46:00 AM [facility] NOTIFICATION AND READ BACK OF CRITICAL R ESULTS TO ZEALLEM CARMONARN-4E AT 1252 ON 02/09/20 BY Fadi Ho.REPORTED CR ITICAL VALUES SHOULD BE INTERPRETED WITHIN CLINICAL CONTEXT. Name Value Range Interpretation Description Data Sup porting Code Source(s) Document(s ) Creatinine 7.2 mg/dL [place] [Mass/volume] Hospital in Serum or Plasma ID Date Data Source [id number] 02/09/2020 [facility] Range Interpretation Description Data Sup porting Code Source(s) Document(s ) Urea 52 mg/dL [place] nitrogen Hospital [Mass/volume ] in Serum or Plasma ID Date Data Source [id number] 02/09/2020 10:46:00 AM [facility] Name Value Range Interpretation Description Data Sup porting Code Source(s) Document(s ) Aspartate 10 U/L [facility] aminotransferase [place] [Enzymatic Hospital activity/volume] in Serum or Plasma ID Date Data Source [id number] 02/09/2020 10:46:00 AM EDT [facility] Name Value Range Interpretation Description Data Sup porting Code Source(s) Document(s ) Alanine < 8 U/L [facility] aminotransferase [place] [Enzymatic Hospital activity/volume] in Serum or Plasma ID Date Data Source [id number] 02/09/2020 10:46:00 AM EDT [facility] Value Range Interpretation Description Data Sup porting Code Source(s) Document(s ) Alkaline 95 U/L [facility] Hospital [Enzymatic activity/volume ] in Serum or Plasma ID Date Data Source [id number] 02/09/2020 10:46:00 AM EDT [facility] Name Value Range Interpretation Description Data Sup porting Code Source(s) Document(s ) Bilirubin.t 0.2 mg/dL [facility] [Mass/volum e] in Serum or Plasma ID Date Data Source [id number] 02/09/2020 10:46[facility] Range Interpretation Code Description Data Sharon rce(s) Supporting Document(s ) [facility] in Serum or Plasma ID Date Data Source [id number] 02/09/2020 10:46:00 AM EDT [facility] Value Range Interpretation Description Data Sup porting Code Source(s) Document(s ) Albumin 3.8 g/dL [place] [Mass/volume Hospital ] in Serum or Plasma ID Date Data Source [id number] 02/09/2020 10:46:00 AM EDT [facility] Name Value Range Interpretation Description Data Sup porting Code Source(s) Document(s ) Protein 6.2 g/dL [facility] [Mass/volume Hospital ] in Serum or Plasma ID Date Data Source [id number] 02/08/2020 10:20:00 PM EDT [facility] Name Value Range Interpretation Description Data Sup porting Code Source(s) Document(s ) Natriuretic 1694.5 [facility] peptide B pg/mL Hospital [Mass/volume] in Serum or Plasma ID Date Data Source [id number] 02/08/2020 10:20:00 PM EDT [facility] TEST PERFORMED BY [email or web address] [facility] CHEMILUMINESCENCE METHOD. Name Value Range Interpretation Description Data Sup porting Code Source(s) Document(s ) Troponin 0.11 [facility] I.cardiac ng/mL Hospital [Mass/volume ] in Serum or Plasma ID Date Data Source [id number] 02/08/2020 10:20:00 PM EDT [facility] Name Value Range Interpretation Code Description Data Supporting Source(s) Document(s ) NUCLEATED RBCS 0.0 % [facility] (AUTO Hospital DIFF%)DIS ID Date Data Source [id number] 02/08/2020 10:20:00 PM EDT [facility] Name Value Range Interpretation Description Data Sup porting Code Source(s) Document(s ) Differential AUTOMATED [facility] cell count Hospital method - Blood ID Date Data Source [id number] 02/08/2020 10:20:00 PM EDT [facility] Name Value Range Interpretation Description Data Sup porting Code Source(s) Document(s ) Immature 0.01 [facility] granulocytes 10*3/uL Hospital [#/volume] in Blood by Automated count ID Date Data Source [id number] 02/08/2020 10:20:00 PM EDT [facility] Name Value Range Interpretation Description Data Sup porting Code Source(s) Document(s ) Basophils 0.03 [facility] [#/volume] in 10*3/uL Hospital Blood by Automated count ID Date Data Source [id number] 02/08/2020 10:20:00 PM EDT [facility] Value Range Interpretation Description Data Sup porting Code Source(s) Document(s ) Eosinophils 0.35 [place] [#/volume] in 10*3/uL Hospital Blood by Automated count ID Date Data Source [id number] 02/08/2020 10:20:00 PM EDT [facility] Value Range Interpretation Description Data Sup porting Code Source(s) Document(s ) Monocytes 0.38 [place] [#/volume] in 10*3/uL Hospital Blood by Automated count ID Date Data Source [id number] 02/08/2020 10:20:00 PM EDT [facility] Value Range Interpretation Description Data Sup porting Code Source(s) Document(s ) Lymphocytes 1.00 [facility] [#/volume] in 10*3/uL Hospital Blood by Automated count ID Date Data Source [id number] 02/08/2020 10:20:00 PM EDT [facility] Value Range Interpretation Description Data Sup porting Code Source(s) Document(s ) Neutrophils 2.64 [facility] [#/volume] in 10*3/uL Hospital Blood by Automated count ID Date Data Source [id number] 02/08/2020 10:20:00 PM EDT [facility] Value Range Interpretation Description Data Sup porting Code Source(s) Document(s ) Nucleated 0.0 % [facility] erythrocytes/10 Hospital 0 leukocytes [Ratio] in Blood by Automated count ID Date Data Source [id number] 02/08/2020 10:20:00 PM EDT [facility] Name Value Range Interpretation Description Data Sup porting Code Source(s) Document(s ) Immature 0.2 % [facility] granulocytes/10 Hospital 0 leukocytes in Blood by Automated count ID Date Data Source [id number] 02/08/2020 10:20:00 PM EDT [facility] Value Range Interpretation Description Data Sup porting Code Source(s) Document(s ) Basophils/100 0.7 % [facility] leukocytes in Hospital Blood by Automated count ID Date Data Source [id number] 02/08/2020 10:20:00 PM EDT [facility] Value Range Interpretation Description Data Sup porting Code Source(s) Document(s ) Eosinophils/100 7.9 % [facility] leukocytes in Hospital Blood by Automated count ID Date Data Source [id number] 02/08/2020 10:20:00 PM EDT [facility] Value Range Interpretation Description Data Sup porting Code Source(s) Document(s ) Monocytes/100 8.6 % [facility] leukocytes in Hospital Blood by Automated count ID Date Data Source [id number] 02/08/2020 10:20:00 PM EDT [facility] Value Range Interpretation Description Data Sup porting Code Source(s) Document(s ) Lymphocytes/10 22.7 % [facility] 0 leukocytes Hospital in Blood by Automated count ID Date Data Source [id number] 02/08/2020 10:20:00 PM EDT [facility] Value Range Interpretation Description Data Sup porting Code Source(s) Document(s ) Neutrophils/10 59.9 % [facility] 0 leukocytes Hospital in Blood by Automated count ID Date Data Source [id number] 02/08/2020 10:20:00 PM EDT [facility] Value Range Interpretation Description Data Sup porting Code Source(s) Document(s ) Natriuretic 1694.5 [facility] peptide B pg/mL Hospital [Mass/volume] in Serum or Plasma ID Date Data Source [id number] 02/08/2020 10:20:00 PM EDT [facility] Value Range Interpretation Description Data Sup porting Code Source(s) Document(s ) Immature 0.01 [facility] granulocytes 10*3/uL Hospital [#/volume] in Blood by Automated count ID Date Data Source [id number] 02/08/2020 10:20:00 PM EDT [facility] Value Range Interpretation Description Data Sup porting Code Source(s) Document(s ) Basophils 0.03 [place] [#/volume] in 10*3/uL Hospital Blood by Automated count ID Date Data Source [id number] 02/08/2020 10:20:00 PM EDT [facility] Value Range Interpretation Description Data Sup porting Code Source(s) Document(s ) Eosinophils 0.35 [facility] [#/volume] in 10*3/uL Hospital Blood by Automated count ID Date Data Source [id number] 02/08/2020 10:20:00 PM EDT [facility] Value Range Interpretation Description Data Sup porting Code Source(s) Document(s ) Monocytes 0.38 [facility] [#/volume] in 10*3/uL Hospital Blood by Automated count ID Date Data Source [id number] 02/08/2020 10:20:00 PM EDT [facility] Name Value Range Interpretation Description Data Sup porting Code Source(s) Document(s ) Lymphocytes 1.00 [place] [#/volume] in 10*3/uL Hospital Blood by Automated count ID Date Data Source [id number] 02/08/2020 10:20:00 PM EDT [facility] Value Range Interpretation Description Data Sup porting Code Source(s) Document(s ) Neutrophils 2.64 [place] [#/volume] in 10*3/uL Hospital Blood by Automated count ID Date Data Source [id number] 02/08/2020 10:20:00 PM EDT [facility] Value Range Interpretation Description Data Sup porting Code Source(s) Document(s ) Nucleated 0.0 % [facility] erythrocytes/10 Hospital 0 leukocytes [Ratio] in Blood by Automated count ID Date Data Source [id number] 02/08/2020 10:20:00 PM EDT [facility] Value Range Interpretation Description Data Sup porting Code Source(s) Document(s ) Immature 0.2 % [facility] granulocytes/10 Hospital 0 leukocytes in Blood by Automated count ID Date Data Source [id number] 02/08/2020 10:20:00 PM EDT [facility] Value Range Interpretation Description Data Sup porting Code Source(s) Document(s ) Basophils/100 0.7 % [facility] leukocytes in Hospital Blood by Automated count ID Date Data Source [id number] 02/08/2020 10:20:00 PM EDT [facility] Value Range Interpretation Description Data Sup porting Code Source(s) Document(s ) Eosinophils/100 7.9 % [facility] leukocytes in Hospital Blood by Automated count ID Date Data Source [id number] 02/08/2020 10:20:00 PM EDT [facility] Value Range Interpretation Description Data Sup porting Code Source(s) Document(s ) Monocytes/100 8.6 % [facility] leukocytes in Hospital Blood by Automated count ID Date Data Source [id number] 02/08/2020 10:20:00 PM EDT [facility] Value Range Interpretation Description Data Sup porting Code Source(s) Document(s ) Lymphocytes/10 22.7 % [facility] 0 leukocytes Hospital in Blood by Automated count ID Date Data Source [id number] 02/08/2020 10:20:00 PM EDT [facility] Value Range Interpretation Description Data Sup porting Code Source(s) Document(s ) Neutrophils/10 59.9 % [facility] 0 leukocytes Hospital in Blood by Automated count ID Date Data Source [id number] 02/08/2020 09:30:00 PM EDT [facility] Value Range Interpretation Description Data Sup porting Code Source(s) Document(s ) IONIZED 1.03 [facility] CALCIUM mmol/L Hospital ID Date Data Source [id number] 02/08/2020 09:30:00 PM EDT [facility] Value Range Interpretation Code Description Data Supporting Source(s) Document(s ) METHEMOGLOBIN 0.3 % [facility] ID Date Data Source [id number] 02/08/2020 09:30:00 PM EDT [facility] Value Range Interpretation Description Data Sup porting Code Source(s) Document(s ) CARBOXYHEMOGLOBIN 0.6 % [facility] ID Date Data Source [id number] 02/08/2020 09:30:00 PM EDT [facility] Value Range Interpretation Code Description Data Sharon rce(s) Supporting Document(s ) ABG TEMP 98.0 [facility] ID Date Data Source [id number] 02/08/2020 09:30:00 PM EDT [facility] Value Range Interpretation Code Description Data Sharon rce(s) Supporting Document(s ) FIO2 28 % [facility] ID Date Data Source [id number] 02/08/2020 09:30:00 PM EDT [facility] Value Range Interpretation Code Description Data Sharon rce(s) Supporting Document(s ) ABG BE 2.3 mmol/L [facility] ID Date Data Source [id number] 02/08/2020 09:30:00 PM EDT [facility] Value Range Interpretation Code Description Data Sharon rce(s) Supporting Document(s ) ABG O2SAT 97 % [facility] ID Date Data Source [id number] 02/08/2020 09:30:00 PM EDT [facility] Name Value Range Interpretation Description Data Sup porting Code Source(s) Document(s ) IONIZED 1.03 [facility] CALCIUM mmol/L Hospital ID Date Data Source [id number] 02/08/2020 09:30:00 PM EDT [facility] Value Range Interpretation Code Description Data Supporting Source(s) Document(s ) METHEMOGLOBIN 0.3 % [facility] ID Date Data Source [id number] 02/08/2020 09:30:00 PM EDT [facility] Value Range Interpretation Description Data Sup porting Code Source(s) Document(s ) CARBOXYHEMOGLOBIN 0.6 % [facility] ID Date Data Source [id number] 02/08/2020 09:30:00 PM EDT [facility] Value Range Interpretation Code Description Data Sharon rce(s) Supporting Document(s ) ABG TEMP 98.0 [facility] ID Date Data Source [id number] 02/08/2020 09:30:00 PM EDT [facility] Value Range Interpretation Code Description Data Sharon rce(s) Supporting Document(s ) FIO2 28 % [facility] ID Date Data Source [id number] 02/08/2020 09:30:00 PM EDT [facility] Value Range Interpretation Code Description Data Sharon rce(s) Supporting Document(s ) ABG BE 2.3 mmol/L [facility] ID Date Data Source [id number] 02/08/2020 09:30:00 PM EDT [facility] Name Value Range Interpretation Code Description Data Sharon rce(s) Supporting Document(s ) ABG O2SAT 97 % [facility] ID Date Data Source [id number] 02/08/2020 09:30:00 PM EDT [facility] Value Range Interpretation Code Description Data Sharon rce(s) Supporting Document(s ) ABG HCO3 30 mmol/L [facility] ID Date Data Source [id number] 02/08/2020 09:30:00 PM EDT [facility] Value Range Interpretation Code Description Data Sharon rce(s) Supporting Document(s ) ABG PO2 116 mm[Hg] [facility] ID Date Data Source [id number] 02/08/2020 09:30:00 PM EDT [facility] Value Range Interpretation Code Description Data Sharon rce(s) Supporting Document(s ) ABG PCO2 63 mm[Hg] [facility] ID Date Data Source [id number] 02/08/2020 09:30:00 PM EDT [facility] Value Range Interpretation Code Description Data Sharon rce(s) Supporting Document(s ) ABG PH 7.29 [facility] ID Date Data Source [id number] 02/08/2020 09:30:00 PM EDT [facility] Value Range Interpretation Code Description Data Sharon rce(s) Supporting Document(s ) ABG MODE 2LPM/NC [facility] 28% Hospital ID Date Data Source [id number] 02/08/2020 09:30:00 PM EDT [facility] Value Range Interpretation Code Description Data Supporting Source(s) Document(s ) ABG SITE Right [facility] ID Date Data Source [id number] 02/08/2020 09:30:00 PM EDT [facility] Value Range Interpretation Code Description Data Supporting Source(s) Document(s ) ABG SOURCE ARTERIAL [facility] ID Date Data Source [id number] 02/08/2020 09:30:00 PM EDT [facility] Value Range Interpretation Code Description Data Sharon rce(s) Supporting Document(s ) XAVIER TEST POSITIVE [facility] ID Date Data Source [id number] 02/08/2020 09:30:00 PM EDT [facility] Value Range Interpretation Code Description Data Sharon rce(s) Supporting Document(s ) ABG HCO3 30 mmol/L [facility] ID Date Data Source [id number] 02/08/2020 09:30:00 PM EDT [facility] Value Range Interpretation Code Description Data Sharon rce(s) Supporting Document(s ) ABG PO2 116 mm[Hg] [facility] ID Date Data Source [id number] 02/08/2020 09:30:00 PM EDT [facility] Value Range Interpretation Code Description Data Sharon rce(s) Supporting Document(s ) ABG PCO2 63 mm[Hg] [facility] ID Date Data Source [id number] 02/08/2020 09:30:00 PM EDT [facility] Value Range Interpretation Code Description Data Sharon rce(s) Supporting Document(s ) ABG PH 7.29 [facility] ID Date Data Source [id number] 02/08/2020 09:30:00 PM EDT [facility] Value Range Interpretation Code Description Data Sharon rce(s) Supporting Document(s ) ABG MODE 2LPM/NC [facility] 28% Hospital ID Date Data Source [id number] 02/08/2020 09:30:00 PM EDT [facility] Name Value Range Interpretation Code Description Data Supporting Source(s) Document(s ) ABG SITE Right [facility] ID Date Data Source [id number] 02/08/2020 09:30:00 PM EDT [facility] Name Value Range Interpretation Code Description Data Supporting Source(s) Document(s ) ABG SOURCE ARTERIAL [facility] ID Date Data Source [id number] 02/08/2020 09:30:00 PM EDT [facility] Name Value Range Interpretation Code Description Data Sharon rce(s) Supporting Document(s ) XAVIER TEST POSITIVE [facility] ID Date Data Source [id number] 01/29/2020 05:01:00 PM EDT [facility] Name Value Range Interpretation Code Description Data Sharon rce(s) Supporting Document(s ) SARS-CoV-2 [facility] , RNA This lab was ordered by [facility] and reported by [facility]. ID Date Data Source [id number] 01/22/2020 12:35:00 PM EDT [facility] Name Value Range Interpretation Code Description Data Sharon rce(s) Supporting Document(s ) SARS-CoV-2 [facility] , RNA [facility] reported by [facility]. ID Date Data Source [id number] 01/21/2020 01:31:00 PM EDT [facility] Value Range Interpretation Description Data Sup porting Code Source(s) Document(s ) Bacteria No growth [facility] identified in Hospital Blood by Culture ID Date Data Source [id number] 01/21/2020 12:08:00 PM EDT [facility] Value Range Interpretation Description Data Sup porting Code Source(s) Document(s ) Lactate 0.6 [facility] [Moles/volum mmol/L Hospital e] in Serum or Plasma ID Date Data Source [id number] 01/21/2020 12:08:00 PM EDT [facility] Name Value Range Interpretation Description Data Sup porting Code Source(s) Document(s ) Lactate 0.6 [facility] [Moles/volum mmol/L Hospital e] in Serum or Plasma ID Date Data Source [id number] 01/21/2020 [facility] BY [facility] [employer] [facility] CHEMILUMINESCENCE METHOD. Name Value Range Interpretation Description Data Sup porting Code Source(s) Document(s ) Troponin 0.06 [facility] I.cardiac ng/mL Hospital [Mass/volume ] in Serum or Plasma ID Date Data Source [id number] 01/21/2020 12:03:00 PM EDT [facility] Name Value Range Interpretation Code Description Data Sharon rce(s) Supporting Document(s ) Lipase 20 U/L [facility] [Enzymatic Hospital activity/vo lume] in Serum or Plasma ID Date Data Source [id number] 01/21/2020 12:03:00 PM EDT [facility] Name Value Range Interpretation Description Data Sup porting Code Source(s) Document(s ) Aspartate 25 U/L White aminotransferase [place] [Enzymatic Hospital activity/volume] in Serum or Plasma ID Date Data Source [id number] 01/21/2020 12:03:00 PM EDT [facility] Name Value Range Interpretation Description Data Sup porting Code Source(s) Document(s ) Alanine < 8 U/L [facility] aminotransferase [place] [Enzymatic Hospital activity/volume] in Serum or Plasma ID Date Data Source [id number] 01/21/2020 12:03:00 PM EDT [facility] Name Value Range Interpretation Description Data Sup porting Code Source(s) Document(s ) Alkaline 94 U/L [facility] phosphatase Hospital [Enzymatic activity/volume ] in Serum or Plasma ID Date Data Source [id number] 01/21/2020 12:03:00 PM EDT [facility] Name Value Range Interpretation Description Data Sup porting Code Source(s) Document(s ) Bilirubin.t 0.4 mg/dL [facility] [Mass/volum e] in Serum or Plasma ID Date Data Source [id number] 01/21/2020 12:03:00 PM EDT [facility] Name Value Range Interpretation Code Description Data Sharon rce(s) Supporting Document(s ) [facility] Serum or Plasma ID Date Data Source [id number] 01/21/2020 12:03:00 PM EDT [facility] Name Value Range Interpretation Description Data Sup porting Code Source(s) Document(s ) Albumin 3.9 g/dL [facility] [Mass/volume Hospital ] in Serum or Plasma ID Date Data Source [id number] 01/21/2020 12:03:00 PM EDT [facility] Name Value Range Interpretation Description Data Sup porting Code Source(s) Document(s ) Protein 6.9 g/dL [facility] [Mass/volume Hospital ] in Serum or Plasma ID Date Data Source [id number] 01/21/2020 12:03:00 PM EDT [facility] Name Value Range Interpretation Description Data Sup porting Code Source(s) Document(s ) Calcium 8.7 mg/dL [facility] [Mass/volume Hospital ] in Serum or Plasma ID Date Data Source [id number] 01/21/2020 12:03:00 PM EDT [facility] Name Value Range Interpretation Code Description Data Sharon rce(s) Supporting Document(s ) Urea 6.0 [facility] nitrogen/[facility] atinine [Mass Ratio] in Serum or Plasma ID Date Data Source [id number] 01/21/2020 12:03:00 PM EDT [facility] Name Value Range Interpretation Description Data Sup porting Code Source(s) Document(s ) Creatinine 4.2 mg/dL [facility] [Mass/volume] Hospital in Serum or Plasma ID Date Data Source [id number] 01/21/2020 12:03:00 PM EDT [facility] Name Value Range Interpretation Description Data Sup porting Code Source(s) Document(s ) Urea 25 mg/dL [facility] nitrogen Hospital [Mass/volume ] in Serum or Plasma ID Date Data Source [id number] 01/21/2020 12:03:00 PM EDT [facility] Value Range Interpretation Code Description Data Sharon rce(s) Supporting Document(s ) Anion gap in [address] [place] [address] [facility] Plasma ID Date Data Source [id number] 01/21/2020 12:03:00 PM EDT [facility] Name Value Range Interpretation Description Data Sup porting Code Source(s) Document(s ) Carbon 31 mmol/L [place] dioxide, Hospital total [Moles/volu me] in Serum or Plasma ID Date Data Source [id number] 01/21/2020 12:03:00 PM EDT [facility] Name Value Range Interpretation Description Data Sup porting Code Source(s) Document(s ) Chloride 97 mmol/L [facility] [Moles/volum Hospital e] in Serum or Plasma ID Date Data Source [id number] 01/21/2020 12:03:00 PM EDT [facility] MODERATE HEMOLYSIS Name Value Range Interpretation Description Data Sup porting Code Source(s) Document(s ) Potassium 5.4 [facility] [Moles/volume mmol/L Hospital ] in Serum or Plasma ID Date Data Source [id number] 01/21/2020 [facility]03[facility] Value Range Interpretation Description Data Sup porting Code Source(s) Document(s ) Sodium 136 mmol/L [place] [facility] in Serum or Plasma ID Date Data Source [id number] 01/21/2020 [facility]:03[facility] [address] [facility] Name Value Range Interpretation Description Data Sup porting Code Source(s) Document(s ) Glucose 85 mg/dL [place] [Mass/[facility] ] in Serum or Plasma ID Date Data Source [id number] 01/21/2020 12:03:00 PM [facility] THERAPEUTIC RANGES:UNFRACTIONATED HEPARI N THERAPY: 60-90 SECONDSARGATROBAN THERAPY: 49-99 SECONDS Name Value Range Interpretation Description Data Sup porting Code Source(s) Document(s ) aPTT in 35.[address] [place] [address] [facility] plasma by Coagulation assay ID Date Data Source [id number] 01/21/2020 12:03:00 PM [facility] HEMOLYZED SPECIMEN- HEMOLYSIS CAUSES KAREN RTENING OF PT AND APTT RESULTSTHERAPEUTIC RANGE FOR STANDARD ORALANTICOAGULANT THE RAPY: 2.0-3.0THERAPEUTIC RANGE FOR HIGH DOSE ORALANTICOAGULANT THERAPY (MUSEUM SPECIALIST AL HEARTVALVE REPLACEMENT): 2.5-3.5 Name Value Range Interpretation Description Data Sup porting Code Source(s) Document(s ) INR in Platelet 1.0 [place] poor plasma by Hospital Coagulation assay ID Date Data Source [id number] 01/21/2020 12:03:00 PM [facility] Hospital Name Value Range Interpretation Description Data Sup porting Code Source(s) Document(s ) PT panel - 11.6 s [place] Platelet poor [facility] plasma by Coagulation assay ID Date Data Source [id number] 01/21/2020 12:03:00 PM EDT [facility] Value Range Interpretation Code Description Data Supporting Source(s) Document(s ) NUCLEATED RBCS 0.0 % [place] (AUTO Hospital DIFF%)DIS ID Date Data Source [id number] 01/21/2020 12:03:00 PM EDT [facility] Value Range Interpretation Description Data Sup porting Code Source(s) Document(s ) Differential MANUAL [place] cell count Hospital method - Blood ID Date Data Source [id number] 01/21/2020 12:03:00 PM EDT [facility] Value Range Interpretation Code Description Data Sharon rce(s) Supporting Document(s ) Cells 100 [facility] Hospital Total [#] in Blood ID Date Data Source [id number] 01/21/2020 12:03:00 PM EDT [facility] Value Range Interpretation Code Description Data Supporting Source(s) Document(s ) PLATELET NORMAL [facility] Hospital ID Date Data Source [id number] 01/21/2020 12:03:00 PM EDT [facility] Value Range Interpretation Code Description Data Sharon rce(s) Supporting Document(s ) OVALOCYTES 1+ [place] [facility] ID Date Data Source [id number] 01/21/2020 12:03:00 PM EDT [facility] Value Range Interpretation Code Description Data Sharon rce(s) Supporting Document(s ) HYPOCHROMIA 1+ [facility] ID Date Data Source [id number] 01/21/2020 12:03:00 PM EDT [facility] Value Range Interpretation Code Description Data Sharon rce(s) Supporting Document(s ) MACROCYTOSIS 1+ [place] Hospital ID Date Data Source [id number] 01/21/2020 12:03:00 PM EDT [facility] Name Value Range Interpretation Description Data Sup porting Code Source(s) Document(s ) Basophils 0.04 [place] [#/volume] in 10*3/uL Hospital Blood by Manual count ID Date Data Source [id number] 01/21/2020 12:03:00 PM EDT [facility] Name Value Range Interpretation Description Data Sup porting Code Source(s) Document(s ) Eosinophils 0.29 [place] [#/volume] in 10*3/uL Hospital Blood by Manual count ID Date Data Source [id number] 01/21/2020 12:03:00 PM EDT [facility] Value Range Interpretation Description Data Sup porting Code Source(s) Document(s ) Monocytes 0.18 [place] [#/volume] in 10*3/uL Hospital Blood by Manual count ID Date Data Source [id number] 01/21/2020 12:03:00 PM EDT [facility] Value Range Interpretation Description Data Sup porting Code Source(s) Document(s ) Lymphocytes 0.40 [place] [#/volume] in 10*3/uL Hospital Blood by Manual count ID Date Data Source [id number] 01/21/2020 12:03:00 PM EDT [facility] Value Range Interpretation Description Data Sup porting Code Source(s) Document(s ) Neutrophils 2.70 [place] [#/volume] in 10*3/uL Hospital Blood by Manual count ID Date Data Source [id number] 01/21/2020 12:03:00 PM EDT [facility] Value Range Interpretation Description Data Sup porting Code Source(s) Document(s ) Basophils/100 1 % [place] leukocytes in Hospital Blood by Manual count ID Date Data Source [id number] 01/21/2020 12:03:00 PM EDT [facility] Value Range Interpretation Description Data Sup porting Code Source(s) Document(s ) Eosinophils/100 8 % [place] leukocytes in Hospital Blood by Manual count ID Date Data Source [id number] 01/21/2020 12:03:00 PM EDT [facility] Value Range Interpretation Description Data Sup porting Code Source(s) Document(s ) Monocytes/100 5 % [place] leukocytes in Hospital Blood by Manual count ID Date Data Source [id number] 01/21/2020 12:03:00 PM EDT [facility] Value Range Interpretation Description Data Sup porting Code Source(s) Document(s ) Lymphocytes/100 11 % [place] leukocytes in Hospital Blood by Manual count ID Date Data Source [id number] 01/21/2020 12:03:00 PM EDT [facility] Value Range Interpretation Description Data Sup porting Code Source(s) Document(s ) Neutrophils/100 75 % [place] leukocytes in Hospital Blood by Manual count ID Date Data Source [id number] 01/21/2020 12:03:00 PM EDT [facility] Value Range Interpretation Description Data Sup porting Code Source(s) Document(s ) Platelet mean 12.3 fL [place] volume Hospital [Entitic volume] in Blood by Automated count ID Date Data Source [id number] 01/21/2020 12:03:00 PM EDT [facility] Value Range Interpretation Description Data Sup porting Code Source(s) Document(s ) Platelets 104 [place] [#/volume] in 10*3/uL Hospital Blood by Automated count ID Date Data Source [id number] 01/21/2020 12:03:00 PM EDT [facility] Value Range Interpretation Description Data Sup porting Code Source(s) Document(s ) Erythrocyte 13.7 % [facility] Hospital width [Ratio] by Automated count ID Date Data Source [id number] 01/21/2020 12:03:00 PM EDT [facility] Value Range Interpretation Description Data Sup porting Code Source(s) Document(s ) Erythrocyte mean 29.6 [place] corpuscular g/dL Hospital hemoglobin concentration [Mass/volume] by Automated count ID Date Data Source [id number] 01/21/2020 12:03:00 PM EDT [facility] Value Range Interpretation Description Data Sup porting Code Source(s) Document(s ) Erythrocyte 32.5 pg [facility] corpuscular hemoglobin [Entitic mass] by Automated count ID Date Data Source [id number] 01/21/2020 12:03:00 PM EDT [facility] Value Range Interpretation Description Data Sup porting Code Source(s) Document(s ) Erythrocyte 110.0 fL [facility] corpuscular volume [Entitic volume] by Automated count ID Date Data Source [id number] 01/21/2020 12:03:00 PM [facility] Value Range Interpretation Description Data Sup porting Code Source(s) Document(s ) Hematocrit 31.8 % [place] [Volume Hospital Fraction] of Blood by Automated count ID Date Data Source [id number] 01/21/2020 12:03:00 PM EDT [facility] Value Range Interpretation Description Data Sup porting Code Source(s) Document(s ) Hemoglobin 9.4 g/dL [place] [Mass/volume] Hospital in Blood ID Date Data Source [id number] 01/21/2020 12:03:00 PM EDT [facility] Value Range Interpretation Description Data Sup porting Code Source(s) Document(s ) Erythrocytes 2.89 [place] [#/volume] in 10*6/uL Hospital Blood by Automated count ID Date Data Source [id number] 01/21/2020 [facility] Interpretation Description Data Sup porting Code Source(s) Document(s ) Leukocytes 3.6 [place] [#/volume] in 10*3/uL Hospital Blood by Automated count ID Date Data Source [id number] 01/21/2020 [facility]03[facility] Name Value Range Interpretation Code Description Data Sharon rce(s) Supporting Document(s ) Lipase 20 U/L [place] [Enzymatic Hospital activity/vo lume] in Serum or Plasma ID Date Data Source [id number] 01/21/2020 12:03:00 PM [facility] THERAPEUTIC RANGES:UNFRACTIONATED HEPARI N THERAPY: 60-90 SECONDSARGATROBAN THERAPY: 49-99 SECONDS Name Value Range Interpretation Description Data Sup porting Code Source(s) Document(s ) aPTT in 35.[address] [place] [address] [facility] plasma by Coagulation assay ID Date Data Source [id number] 01/21/2020 12:03:00 PM [facility] HEMOLYZED SPECIMEN- HEMOLYSIS CAUSES KAREN RTENING OF PT AND APTT RESULTSTHERAPEUTIC RANGE FOR STANDARD ORALANTICOAGULANT THE RAPY: 2.0-3.0THERAPEUTIC RANGE FOR HIGH DOSE ORALANTICOAGULANT THERAPY (MUSEUM SPECIALIST AL HEARTVALVE REPLACEMENT): 2.5-3.5 Name Value Range Interpretation Description Data Sup porting Code Source(s) Document(s ) INR in Platelet 1.0 [place] poor plasma by Hospital Coagulation assay ID Date Data Source [id number] 01/21/2020 [facility]03[facility] Value Range Interpretation Description Data Sup porting Code Source(s) Document(s ) PT panel - 11.[address] [place] [address] [facility] plasma by Coagulation assay ID Date Data Source [id number] 01/21/2020 12:03:00 PM EDT [facility] Value Range Interpretation Code Description Data Sharon rce(s) Supporting Document(s ) Cells 100 [place] Counted Hospital Total [#] in Blood ID Date Data Source [id number] 01/21/2020 12:03:00 PM EDT [facility] Value Range Interpretation Code Description Data Supporting Source(s) Document(s ) PLATELET NORMAL [facility] Hospital ID Date Data Source [id number] 01/21/2020 12:03:00 PM EDT [facility] Value Range Interpretation Code Description Data Sharon rce(s) Supporting Document(s ) OVALOCYTES 1+ [facility] ID Date Data Source [id number] 01/21/2020 12:03:00 PM EDT [facility] Value Range Interpretation Code Description Data Sharon rce(s) Supporting Document(s ) HYPOCHROMIA 1+ [facility] ID Date Data Source [id number] 01/21/2020 12:03:00 PM EDT [facility] Value Range Interpretation Code Description Data Sharon rce(s) Supporting Document(s ) MACROCYTOSIS 1+ [facility] ID Date Data Source [id number] 01/21/2020 12:03:00 PM EDT [facility] Value Range Interpretation Description Data Sup porting Code Source(s) Document(s ) Basophils 0.04 [place] [#/volume] in 10*3/uL Hospital Blood by Manual count ID Date Data Source [id number] 01/21/2020 12:03:00 PM EDT [facility] Value Range Interpretation Description Data Sup porting Code Source(s) Document(s ) Eosinophils 0.29 [place] [#/volume] in 10*3/uL Hospital Blood by Manual count ID Date Data Source [id number] 01/21/2020 12:03:00 PM EDT [facility] Name Value Range Interpretation Description Data Sup porting Code Source(s) Document(s ) Monocytes 0.18 [place] [#/volume] in 10*3/uL Hospital Blood by Manual count ID Date Data Source [id number] 01/21/2020 12:03:00 PM EDT [facility] Name Value Range Interpretation Description Data Sup porting Code Source(s) Document(s ) Lymphocytes 0.40 [place] [#/volume] in 10*3/uL Hospital Blood by Manual count ID Date Data Source [id number] 01/21/2020 12:03:00 PM EDT [facility] Value Range Interpretation Description Data Sup porting Code Source(s) Document(s ) Neutrophils 2.70 [place] [#/volume] in 10*3/uL Hospital Blood by Manual count ID Date Data Source [id number] 01/21/2020 12:03:00 PM EDT [facility] Value Range Interpretation Description Data Sup porting Code Source(s) Document(s ) Basophils/100 1 % [place] leukocytes in Hospital Blood by Manual count ID Date Data Source [id number] 01/21/2020 12:03:00 PM EDT [facility] Value Range Interpretation Description Data Sup porting Code Source(s) Document(s ) Eosinophils/100 8 % [place] leukocytes in Hospital Blood by Manual count ID Date Data Source [id number] 01/21/2020 12:03:00 PM EDT [facility] Value Range Interpretation Description Data Sup porting Code Source(s) Document(s ) Monocytes/100 5 % [place] leukocytes in Hospital Blood by Manual count ID Date Data Source [id number] 01/21/2020 12:03:00 PM EDT [facility] Value Range Interpretation Description Data Sup porting Code Source(s) Document(s ) Lymphocytes/100 11 % [place] leukocytes in Hospital Blood by Manual count ID Date Data Source [id number] 01/21/2020 12:03:00 PM EDT [facility] Name Value Range Interpretation Description Data Sup porting Code Source(s) Document(s ) Neutrophils/100 75 % [place] leukocytes in Hospital Blood by Manual count ID Date Data Source [id number] 01/17/2020 06:01:00 AM EDT [facility] Value Range Interpretation Description Data Sup porting Code Source(s) Document(s ) Eosinophils 0.25 [place] [#/volume] in 10*3/uL Hospital Blood by Automated count ID Date Data Source [id number] 01/17/2020 06:01:00 AM EDT [facility] Value Range Interpretation Description Data Sup porting Code Source(s) Document(s ) Monocytes 0.48 [place] [#/volume] in 10*3/uL Hospital Blood by Automated count ID Date Data Source [id number] 01/17/2020 06:01:00 AM EDT [facility] Value Range Interpretation Description Data Sup porting Code Source(s) Document(s ) Lymphocytes 0.82 [place] [#/volume] in 10*3/uL Hospital Blood by Automated count ID Date Data Source [id number] 01/17/2020 06:01:00 AM EDT [facility] Value Range Interpretation Description Data Sup porting Code Source(s) Document(s ) Neutrophils 2.64 [place] [#/volume] in 10*3/uL Hospital Blood by Automated count ID Date Data Source [id number] 01/17/2020 06:01:00 AM EDT [facility] Name Value Range Interpretation Description Data Sup porting Code Source(s) Document(s ) Nucleated 0.0 % [place] erythrocytes/10 Hospital 0 leukocytes [Ratio] in Blood by Automated count ID Date Data Source [id number] 01/17/2020 06:01:00 AM EDT [facility] Name Value Range Interpretation Description Data Sup porting Code Source(s) Document(s ) Immature 0.2 % [place] granulocytes/10 Hospital 0 leukocytes in Blood by Automated count ID Date Data Source [id number] 01/17/2020 06:01:00 AM EDT [facility] Value Range Interpretation Description Data Sup porting Code Source(s) Document(s ) Basophils/100 0.9 % [place] leukocytes in Hospital Blood by Automated count ID Date Data Source [id number] 01/17/2020 06:01:00 AM EDT [facility] Value Range Interpretation Description Data Sup porting Code Source(s) Document(s ) Eosinophils/100 5.9 % [place] leukocytes in Hospital Blood by Automated count ID Date Data Source [id number] 01/17/2020 06:01:00 AM EDT [facility] Value Range Interpretation Description Data Sup porting Code Source(s) Document(s ) Monocytes/100 11.3 % [place] leukocytes in Hospital Blood by Automated count ID Date Data Source [id number] 01/17/2020 06:01:00 AM EDT [facility] Value Range Interpretation Description Data Sup porting Code Source(s) Document(s ) Lymphocytes/10 19.3 % [place] 0 leukocytes Hospital in Blood by Automated count ID Date Data Source [id number] 01/17/2020 06:01:00 AM EDT [facility] Name Value Range Interpretation Description Data Sup porting Code Source(s) Document(s ) Neutrophils/10 62.4 % [place] 0 leukocytes Hospital in Blood by Automated count ID Date Data Source [id number] 01/17/2020 06:01:00 AM EDT [facility] REVIEWED BY RICH RILEY MD Name Value Range Interpretation Description Data Sup porting Code Source(s) Document(s ) [facility] Data Source [id number] 01/17/2020 06:01:00 AM EDT [facility] Name Value Range Interpretation Description Data Sup porting Code Source(s) Document(s ) IgM 143 mg/dL [place] [Mass/volum Hospital e] in Serum or Plasma ID Date Data Source [id number] 01/17/2020 06:01:00 AM EDT [facility] Name Value Range Interpretation Description Data Sup porting Code Source(s) Document(s ) IgA 341 mg/dL [place] [Mass/volum Hospital e] in Serum or Plasma ID Date Data Source [id number] 01/17/2020 [facility] Interpretation Description Data Sup porting Code Source(s) Document(s ) IgG 1250 mg/dL [place] [Mass/volum Hospital e] in Serum or Plasma ID Date Data Source [id number] 01/17/2020 06:01:00 AM EDT [facility] Name Value Range Interpretation Description Data Sup porting Code Source(s) Document(s ) Ferritin 913.0 [place] [Mass/volume ng/mL Hospital ] in Serum or Plasma ID Date Data Source [id number] 01/17/2020 06:01:00 AM EDT [place] [facility] Name Value Range Interpretation Description Data Sup porting Code Source(s) Document(s ) Folate 9.5 ng/mL [place] [Mass/volum Hospital e] in Serum or Plasma ID Date Data Source [id number] 01/17/2020 06:01:00 AM EDT [facility] Name Value Range Interpretation Description Data Sup porting Code Source(s) Document(s ) Cobalamin 1554 [place] (Vitamin B12) pg/mL Hospital [Mass/volume] in Serum or Plasma ID Date Data Source [id number] 01/17/2020 06:01:00 AM EDT [facility] Name Value Range Interpretation Description Data Sup porting Code Source(s) Document(s ) Iron saturation 25 % [place] [Mass Fraction] Hospital in Serum or Plasma ID Date Data Source [id number] 01/17/2020 06:01:00 AM EDT [facility] Name Value Range Interpretation Description Data Sup porting Code Source(s) Document(s ) UNSAT IRON 135 ug/dL [place] BINDING Hospital CAPACITY ID Date Data Source [id number] 01/17/2020 06:01:00 AM EDT [facility] Value Range Interpretation Description Data Sup porting Code Source(s) Document(s ) Iron binding 180 ug/dL [place] capacity Hospital [Mass/volume ] in Serum or Plasma ID Date Data Source [id number] 01/17/2020 06:01:00 AM EDT [facility] Name Value Range Interpretation Code Description Data Supporting Source(s) Document(s ) Iron 45 ug/dL [place] [Mass/volum Hospital e] in Serum or Plasma ID Date Data Source [id number] 01/17/2020 06:01:00 AM EDT [facility] Name Value Range Interpretation Description Data Sup porting Code Source(s) Document(s ) Phosphate 8.8 mg/dL [place] [Mass/volume] Hospital in Serum or Plasma ID Date Data Source [id number] 01/17/2020 [facility] Value Range Interpretation Description Data Sup porting Code Source(s) Document(s ) Magnesium 2.2 mg/dL [place] [Mass/volume] Hospital in Serum or Plasma ID Date Data Source [id number] 01/17/2020 [facility] Value Range Interpretation Description Data Sup porting Code Source(s) Document(s ) Aspartate 10 U/L [place] aminotransferase [place] [Enzymatic Hospital activity/volume] in Serum or Plasma ID Date Data Source [id number] 01/17/2020 06:01:00 AM [facility] Name Value Range Interpretation Description Data Sup porting Code Source(s) Document(s ) Alanine < 8 U/L [place] aminotransferase [place] [Enzymatic Hospital activity/volume] in Serum or Plasma ID Date Data Source [id number] 01/17/2020 06:01:00 AM [facility] Name Value Range Interpretation Description Data Sup porting Code Source(s) Document(s ) Alkaline 87 U/L [place] phosphatase Hospital [Enzymatic activity/volume ] in Serum or Plasma ID Date Data Source [id number] 01/17/2020 06:01:00 AM [facility] Name Value Range Interpretation Description Data Sup porting Code Source(s) Document(s ) Bilirubin.t 0.2 mg/dL [facility] [Mass/volum e] in Serum or Plasma ID Date Data Source [id number] 01/17/2020 06:01:00 AM [facility] REVIEWED BY RICH RILEY MD Name Value Range Interpretation Description Data Sup porting Code Source(s) Document(s ) SPE NORMAL [place] INTP/ABN PATTERN Hospital REFLEX TO SIF ID Date Data Source [id number] 01/17/2020 06:01:00 AM EDT [facility] Name Value Range Interpretation Description Data Sup porting Code Source(s) Document(s ) GAMMA 1.2 g/dL [place] GLOBULIN Hospital ID Date Data Source [id number] 01/17/2020 06:01:00 AM EDT [place] [facility] Name Value Range Interpretation Description Data Sup porting Code Source(s) Document(s ) BETA 0.8 g/dL [place] GLOBULIN Hospital ID Date Data Source [id number] 01/17/2020 06:01:00 AM EDT [facility] Name Value Range Interpretation Description Data Sup porting Code Source(s) Document(s ) ALPHA-2 0.8 g/dL [place] GLOBULIN Hospital ID Date Data Source [id number] 01/17/2020 06:01:00 AM EDT [facility] [facility] Name Value Range Interpretation Description Data Sup porting Code Source(s) Document(s ) ALPHA-1 0.2 g/dL [place] GLOBULIN Hospital ID Date Data Source [id number] 01/17/2020 06:01:00 AM EDT [facility] Name Value Range Interpretation Description Data Sup porting Code Source(s) Document(s ) ALBUMIN 2.9 g/dL [place] (GM/DL) Hospital ID Date Data Source [id number] 01/17/2020 06:01:00 AM EDT [facility] Name Value Range Interpretation Code Description Data Supporting Source(s) Document(s ) A:G RATIO 1.0 [place] (ELECTROPH {ratio} Hospital ORESIS) ID Date Data Source [id number] 01/17/2020 06:01:00 AM EDT [facility] Name Value Range Interpretation Code Description Data Supporting Source(s) Document(s ) GAMMA 19.5 % [place] GLOBULIN % Hospital ID Date Data Source [id number] 01/17/2020 06:01:00 AM EDT [facility] Name Value Range Interpretation Code Description Data Supporting Source(s) Document(s ) BETA GLOBULIN 13.6 % [place] % Hospital ID Date Data Source [id number] 01/17/2020 06:01:00 AM EDT [facility] Name Value Range Interpretation Code Description Data Sharon rce(s) Supporting Document(s ) ALPHA-2 % 14.0 % [place] [facility] ID Date Data Source [id number] 01/17/2020 06:01:00 AM EDT [facility] Name Value Range Interpretation Code Description Data Sharon rce(s) Supporting Document(s ) ALPHA-1 % 4.1 % [place] [facility] ID Date Data Source [id number] 01/17/2020 06:01:00 AM EDT [facility] Name Value Range Interpretation Code Description Data Sharon rce(s) Supporting Document(s ) ALBUMIN 48.8 % [place] (SPE) % Hospital ID Date Data Source [id number] 01/17/2020 06:01:00 AM EDT [facility] Name Value Range Interpretation Description Data Sup porting Code Source(s) Document(s ) Ferritin 913.0 [place] [Mass/volume ng/mL Hospital ] in Serum or Plasma ID Date Data Source [id number] 01/17/2020 06:01:00 AM EDT [facility] Name Value Range Interpretation Description Data Sup porting Code Source(s) Document(s ) Folate 9.5 ng/mL [place] [[facility] e] in Serum or Plasma ID Date Data Source [id number] 01/17/2020 06:01:00 AM EDT [facility] Name Value Range Interpretation Description Data Sup porting Code Source(s) Document(s ) Cobalamin 1554 [place] (Vitamin B12) pg/mL Hospital [Mass/volume] in Serum or Plasma ID Date Data Source [id number] 01/17/2020 06:01:00 AM EDT [facility] Name Value Range Interpretation Description Data Sup porting Code Source(s) Document(s ) Iron saturation 25 % [place] [Mass Fraction] Hospital in Serum or Plasma ID Date Data Source [id number] 01/17/2020 06:01:00 AM EDT [facility] Name Value Range Interpretation Description Data Sup porting Code Source(s) Document(s ) UNSAT IRON 135 ug/dL [facility] BINDING [facility] CAPACITY ID Date Data Source [id number] 01/17/2020 06:01:00 AM EDT [facility] Name Value Range Interpretation Description Data Sup porting Code Source(s) Document(s ) Iron binding 180 ug/dL [facility] capacity Hospital [Mass/volume ] in Serum or Plasma ID Date Data Source [id number] 01/17/2020 06:01:00 AM EDT [facility] Name Value Range Interpretation Code Description Data Supporting Source(s) Document(s ) Iron 45 ug/dL [place] [[facility] e] in Serum or Plasma ID Date Data Source [id number] 01/17/2020 06:01:00 AM EDT [facility] Name Value Range Interpretation Description Data Sup porting Code Source(s) Document(s ) Phosphate 8.8 mg/dL [place] [Mass/volume] Hospital in Serum or Plasma ID Date Data Source [id number] 01/17/2020 06:01:00 AM [facility] Name Value Range Interpretation Description Data Sup porting Code Source(s) Document(s ) Magnesium 2.2 mg/dL [place] [Mass/volume] Hospital in Serum or Plasma ID Date Data Source [id number] 01/17/2020 06:01:00 AM [facility] UNITS ARE IN ml/min/1.73m2.IF PATIENT IS -COMORAN, MULTIPLY REPORTED RESULT BY 1.21. Name Value Range Interpretation Description Data Sup porting Code Source(s) Document(s ) Glomerular 7 mL/min [facility] filtration [facility] rate/1.73 sq M.predicted [Volume Rate/Area] in Serum or Plasma by Creatinine-bas ed formula (MDRD) ID Date Data Source [id number] 01/17/2020 06:01:00 AM [facility] Name Value Range Interpretation Code Description Data Sharon rce(s) Supporting Document(s ) Immature 5.4 % [place] reticulocytes Hospital /Reticulocyte s.total in Blood ID Date Data Source [id number] 01/17/2020 06:01:00 AM [facility] Name Value Range Interpretation Description Data Sup porting Code Source(s) Document(s ) Reticulocytes 0.06 [place] [#/volume] in 10*6/uL Hospital Blood by Automated count ID Date Data Source [id number] 01/17/2020 06:01:00 AM [facility] Name Value Range Interpretation Description Data Sup porting Code Source(s) Document(s ) Reticulocytes/10 2.08 % [facility] 0 erythrocytes Hospital in Blood by Automated count ID Date Data Source [id number] 01/17/2020 06:01:00 AM [facility] REVIEWED BY RICH RILEY MD Name Value Range Interpretation Description Data Sup porting Code Source(s) Document(s ) ENEDINA FORRESTER NO White INTERPRETATION MONOCLONAL [place] [facility] ID Date Data Source [id number] 01/17/2020 06:01:00 AM EDT [facility] Name Value Range Interpretation Description Data Sup porting Code Source(s) Document(s ) IgM 143 mg/dL [place] [[facility] e] in Serum or Plasma ID Date Data Source [id number] 01/17/2020 06:01:00 AM EDT [facility] Name Value Range Interpretation Description Data Sup porting Code Source(s) Document(s ) IgA 341 mg/dL [place] [[facility] e] in Serum or Plasma ID Date Data Source [id number] 01/17/2020 06:01:00 AM EDT [facility] Value Range Interpretation Description Data Sup porting Code Source(s) Document(s ) IgG 1250 mg/dL [place] [[facility] e] in Serum or Plasma ID Date Data Source [id number] 01/17/2020 06:01:00 AM EDT [facility] Name Value Range Interpretation Description Data Sup porting Code Source(s) Document(s ) Ferritin 913.0 [place] [Mass/volume ng/mL Hospital ] in Serum or Plasma ID Date Data Source [id number] 01/17/2020 06:01:00 AM EDT [facility] Name Value Range Interpretation Description Data Sup porting Code Source(s) Document(s ) Folate 9.5 ng/mL [place] [[facility] e] in Serum or Plasma ID Date Data Source [id number] 01/17/2020 06:01:00 AM EDT [facility] Name Value Range Interpretation Description Data Sup porting Code Source(s) Document(s ) Cobalamin 1554 [place] (Vitamin B12) pg/mL Hospital [Mass/volume] in Serum or Plasma ID Date Data Source [id number] 01/17/2020 06:01:00 AM EDT [facility] Name Value Range Interpretation Description Data Sup porting Code Source(s) Document(s ) Iron saturation 25 % [place] [Mass Fraction] Hospital in Serum or Plasma ID Date Data Source [id number] 01/17/2020 06:01:00 AM EDT [facility] Name Value Range Interpretation Description Data Sup porting Code Source(s) Document(s ) UNSAT IRON 135 ug/dL [facility] [facility] CAPACITY ID Date Data Source [id number] 01/17/2020 06:01:00 AM EDT [facility] Value Range Interpretation Description Data Sup porting Code Source(s) Document(s ) Iron binding 180 ug/dL [place] capacity Hospital [Mass/volume ] in Serum or Plasma ID Date Data Source [id number] 01/17/2020 06:01:00 AM EDT [facility] Value Range Interpretation Code Description Data Supporting Source(s) Document(s ) Iron 45 ug/dL [place] [[facility] e] in Serum or Plasma ID Date Data Source [id number] 01/17/2020 06:01:00 AM EDT [facility] Name Value Range Interpretation Description Data Sup porting Code Source(s) Document(s ) Phosphate 8.8 mg/dL [place] [Mass/volume] Hospital in Serum or Plasma ID Date Data Source [id number] 01/17/2020 06:01:00 AM EDT [facility] Name Value Range Interpretation Description Data Sup porting Code Source(s) Document(s ) Magnesium 2.2 mg/dL [place] [Mass/volume] Hospital in Serum or Plasma ID Date Data Source [id number] 01/17/2020 06:01:00 AM [facility] UNITS ARE IN ml/min/1.73m2.IF PATIENT IS -COMORAN, MULTIPLY REPORTED RESULT BY 1.21. Name Value Range Interpretation Description Data Sup porting Code Source(s) Document(s ) Glomerular 7 mL/min [facility] filtration Hospital rate/1.73 sq M.predicted [Volume Rate/Area] in Serum or Plasma by Creatinine-bas ed formula (MDRD) ID Date Data Source [id number] 01/17/2020 06:01:00 AM [facility] Name Value Range Interpretation Code Description Data Sharon rce(s) Supporting Document(s ) Immature 5.4 % [place] reticulocytes Hospital /Reticulocyte s.total in Blood ID Date Data Source [id number] 01/17/2020 06:01:00 AM [facility] Name Value Range Interpretation Description Data Sup porting Code Source(s) Document(s ) Reticulocytes 0.06 [place] [#/volume] in 10*6/uL Hospital Blood by Automated count ID Date Data Source [id number] 01/17/2020 06:01:00 AM [facility] Name Value Range Interpretation Description Data Sup porting Code Source(s) Document(s ) Reticulocytes/10 2.08 % [facility] 0 erythrocytes Hospital in Blood by Automated count ID Date Data Source [id number] 01/17/2020 06:01:00 AM [facility] Name Value Range Interpretation Description Data Sup porting Code Source(s) Document(s ) Immature 0.01 [place] granulocytes 10*3/uL Hospital [#/volume] in Blood by Automated count ID Date Data Source [id number] 01/17/2020 06:01:00 AM [facility] Name Value Range Interpretation Description Data Sup porting Code Source(s) Document(s ) Basophils 0.04 [place] [#/volume] in 10*3/uL Hospital Blood by Automated count ID Date Data Source [id number] 01/17/2020 06:01:00 AM [facility] REVIEWED BY RICH RILEY MD Name Value Range Interpretation Description Data Sup porting Code Source(s) Document(s ) ENEDINA FORRESTER NO White INTERPRETATION MONOCLONAL [place] [facility] Hospital ID Date Data Source [id number] 01/17/2020 06:01:00 AM EDT [facility] Name Value Range Interpretation Description Data Sup porting Code Source(s) Document(s ) IgM 143 mg/dL [place] [[facility] e] in Serum or Plasma ID Date Data Source [id number] 01/17/2020 06:01:00 AM [facility] Name Value Range Interpretation Description Data Sup porting Code Source(s) Document(s ) IgA 341 mg/dL [place] [[facility] e] in Serum or Plasma ID Date Data Source [id number] 01/17/2020 06:01:00 AM [facility] Value Range Interpretation Description Data Sup porting Code Source(s) Document(s ) IgG 1250 mg/dL [place] [[facility] e] in Serum or Plasma ID Date Data Source [id number] 01/17/2020 06:01:00 AM EDT [facility] Name Value Range Interpretation Code Description Data Sharon rce(s) Supporting Document(s ) Albumin/Glob 1.7 [place] ulin [Mass Hospital Ratio] in Serum or Plasma ID Date Data Source [id number] 01/17/2020 [facility] Value Range Interpretation Description Data Sup porting Code Source(s) Document(s ) Albumin 3.7 g/dL [place] [Mass[facility] ] in Serum or Plasma ID Date Data Source [id number] 01/17/2020 06:01:00 AM [facility] Name Value Range Interpretation Description Data Sup porting Code Source(s) Document(s ) Protein 5.9 g/dL [place] [Mass[facility] ] in Serum or Plasma ID Date Data Source [id number] 01/17/2020 06:01:00 AM [facility] Name Value Range Interpretation Description Data Sup porting Code Source(s) Document(s ) Calcium 7.6 mg/dL [place] [Mass[facility]volume Hospital ] in Serum or Plasma ID Date Data Source [id number] 01/17/2020 06:01:00 AM [facility] UNITS ARE IN ml/min/1.73m2.IF PATIENT IS -COMORAN, MULTIPLY REPORTED RESULT BY 1.21. Name Value Range Interpretation Description Data Sup porting Code Source(s) Document(s ) Glomerular 7 mL/min [facility] filtration Hospital rate/1.73 sq M.predicted [Volume Rate/Area] in Serum or Plasma by Creatinine-bas ed formula (MDRD) ID Date Data Source [id number] 01/17/2020 06:01:00 AM [facility] Name Value Range Interpretation Code Description Data Sharon rce(s) Supporting Document(s ) Urea 9.1 [place] nitrogen/Cre Hospital atinine [Mass Ratio] in Serum or Plasma ID Date Data Source [id number] 01/17/2020 06:01:00 AM [facility] NOTIFICATION AND READ BACK OF CRITICAL R ESULTS TO TERELL SMITH RN-5E AT 0808 ON 01/17/20 BY Yina Shah.REPORTED CRITICAL VALUES SHOULD BE INTERPRETED WITHIN CLINICAL CONTEXT. Name Value Range Interpretation Description Data Sup porting Code Source(s) Document(s ) Creatinine 6.3 mg/dL [place] [Mass/volume] Hospital in Serum or Plasma ID Date Data Source [id number] 01/17/2020 06:01:00 AM EDT [facility] Name Value Range Interpretation Description Data Sup porting Code Source(s) Document(s ) Urea 57 mg/dL [facility] Hospital [Mass/volume ] in Serum or Plasma ID Date Data Source [id number] 01/17/2020 06:01:00 AM EDT [facility] Name Value Range Interpretation Code Description Data Sharon rce(s) Supporting Document(s ) Anion gap in [address] [place] [address] [facility] Plasma ID Date Data Source [id number] 01/17/[facility] Description Data Sup porting Code Source(s) Document(s ) Carbon 28 mmol/L [place] dioxide, Hospital total [Moles/volu me] in Serum or Plasma ID Date Data Source [id number] 01/17/2020 06:01:00 AM EDT [facility] Name Value Range Interpretation Description Data Sup porting Code Source(s) Document(s ) Chloride 99 mmol/L [place] [Moles/volum Hospital e] in Serum or Plasma ID Date Data Source [id number] 01/17/2020 06:01:00 AM EDT [facility] Name Value Range Interpretation Description Data Sup porting Code Source(s) Document(s ) Potassium 4.4 [place] [Moles/volume mmol/L Hospital ] in Serum or Plasma ID Date Data Source [id number] 01/17/2020 06:01:00 AM EDT [facility] Name Value Range Interpretation Description Data Sup porting Code Source(s) Document(s ) Sodium 138 mmol/L [place] [Moles/volu Hospital me] in Serum or Plasma ID Date Data Source [id number] 01/17/2020 06:01:00 AM EDT [facility] Name Value Range Interpretation Description Data Sup porting Code Source(s) Document(s ) Glucose 87 mg/dL [place] [Mass/volume Hospital ] in Serum or Plasma ID Date Data Source [id number] 01/17/2020 06:01:00 AM EDT [facility] Name Value Range Interpretation Code Description Data Sharon rce(s) Supporting Document(s ) Immature 5.4 % [place] reticulocytes Hospital /Reticulocyte s.total in Blood ID Date Data Source [id number] 01/17/2020 06:01:00 AM EDT [facility] Name Value Range Interpretation Description Data Sup porting Code Source(s) Document(s ) Reticulocytes 0.06 [place] [#/volume] in 10*6/uL Hospital Blood by Automated count ID Date Data Source [id number] 01/17/2020 06:01:00 AM EDT [facility] Name Value Range Interpretation Description Data Sup porting Code Source(s) Document(s ) Reticulocytes/10 2.08 % [place] 0 erythrocytes Hospital in Blood by Automated count ID Date Data Source [id number] 01/17/2020 06:01:00 AM EDT [facility] Name Value Range Interpretation Description Data Sup porting Code Source(s) Document(s ) Differential AUTOMATED [facility] cell count [facility] method - Blood ID Date Data Source [id number] 01/17/2020 06:01:00 AM EDT [facility] Name Value Range Interpretation Description Data Sup porting Code Source(s) Document(s ) Immature 0.01 [place] granulocytes 10*3/uL Hospital [#/volume] in Blood by Automated count ID Date Data Source [id number] 01/17/2020 06:01:00 AM EDT [facility] Name Value Range Interpretation Description Data Sup porting Code Source(s) Document(s ) Basophils 0.04 [place] [#/volume] in 10*3/uL Hospital Blood by Automated count ID Date Data Source [id number] 01/17/2020 06:01:00 AM EDT [facility] Value Range Interpretation Description Data Sup porting Code Source(s) Document(s ) Eosinophils 0.25 [place] [#/volume] in 10*3/uL Hospital Blood by Automated count ID Date Data Source [id number] 01/17/2020 06:01:00 AM EDT [facility] Value Range Interpretation Description Data Sup porting Code Source(s) Document(s ) Monocytes 0.48 [place] [#/volume] in 10*3/uL Hospital Blood by Automated count ID Date Data Source [id number] 01/17/2020 06:01:00 AM EDT [facility] Value Range Interpretation Description Data Sup porting Code Source(s) Document(s ) Lymphocytes 0.82 [place] [#/volume] in 10*3/uL Hospital Blood by Automated count ID Date Data Source [id number] 01/17/2020 06:01:00 AM EDT [facility] Value Range Interpretation Description Data Sup porting Code Source(s) Document(s ) Neutrophils 2.64 [place] [#/volume] in 10*3/uL Hospital Blood by Automated count ID Date Data Source [id number] 01/17/2020 06:01:00 AM EDT [facility] Value Range Interpretation Description Data Sup porting Code Source(s) Document(s ) Nucleated 0.0 % [place] erythrocytes/10 Hospital 0 leukocytes [Ratio] in Blood by Automated count ID Date Data Source [id number] 01/17/2020 06:01:00 AM EDT [facility] Name Value Range Interpretation Description Data Sup porting Code Source(s) Document(s ) Immature 0.2 % [place] granulocytes/10 Hospital 0 leukocytes in Blood by Automated count ID Date Data Source [id number] 01/17/2020 06:01:00 AM EDT [facility] Name Value Range Interpretation Description Data Sup porting Code Source(s) Document(s ) Basophils/100 0.9 % [place] leukocytes in Hospital Blood by Automated count ID Date Data Source [id number] 01/17/2020 06:01:00 AM EDT [facility] Value Range Interpretation Description Data Sup porting Code Source(s) Document(s ) Eosinophils/100 5.9 % [place] leukocytes in Hospital Blood by Automated count ID Date Data Source [id number] 01/17/2020 06:01:00 AM EDT [facility] Value Range Interpretation Description Data Sup porting Code Source(s) Document(s ) Monocytes/100 11.3 % [place] leukocytes in Hospital Blood by Automated count ID Date Data Source [id number] 01/17/2020 06:01:00 AM EDT [facility] Value Range Interpretation Description Data Sup porting Code Source(s) Document(s ) Lymphocytes/10 19.3 % [place] 0 leukocytes Hospital in Blood by Automated count ID Date Data Source [id number] 01/17/2020 06:01:00 AM EDT [facility] Name Value Range Interpretation Description Data Sup porting Code Source(s) Document(s ) Neutrophils/10 62.4 % [place] 0 leukocytes Hospital in Blood by Automated count ID Date Data Source [id number] 01/17/2020 06:01:00 AM EDT [facility] Name Value Range Interpretation Description Data Sup porting Code Source(s) Document(s ) Platelet mean 11.9 fL [facility] Hospital [Entitic volume] in Blood by Automated count ID Date Data Source [id number] 01/17/2020 06:01:00 AM [facility] Value Range Interpretation Description Data Sup porting Code Source(s) Document(s ) Platelets 87 [place] [#/volume] in 10*3/uL Hospital Blood by Automated count ID Date Data Source [id number] 01/17/2020 06:01:00 AM [facility] Value Range Interpretation Description Data Sup porting Code Source(s) Document(s ) Erythrocyte 14.2 % [facility] width [Ratio] by Automated count ID Date Data Source [id number] 01/17/2020 06:01:00 AM [facility] Value Range Interpretation Description Data Sup porting Code Source(s) Document(s ) Erythrocyte mean 31.6 [place] corpuscular g/dL Hospital hemoglobin concentration [Mass/volume] by Automated count ID Date Data Source [id number] 01/17/2020 06:01:00 AM [facility] Value Range Interpretation Description Data Sup porting Code Source(s) Document(s ) Erythrocyte 33.0 pg [facility] corpuscular hemoglobin [Entitic mass] by Automated count ID Date Data Source [id number] 01/17/2020 06:01:00 AM [facility] Value Range Interpretation Description Data Sup porting Code Source(s) Document(s ) Erythrocyte 104.3 fL [facility] corpuscular volume [Entitic volume] by Automated count ID Date Data Source [id number] 01/17/2020 06:01:00 AM [facility] Value Range Interpretation Description Data Sup porting Code Source(s) Document(s ) Hematocrit 29.1 % [place] [Volume Hospital Fraction] of Blood by Automated count ID Date Data Source [id number] 01/17/2020 06:01:00 AM EDT [facility] Name Value Range Interpretation Description Data Sup porting Code Source(s) Document(s ) Hemoglobin 9.2 g/dL [place] [Mass/volume] Hospital in Blood ID Date Data Source [id number] 01/17/2020 06:01:00 AM EDT [facility] Name Value Range Interpretation Description Data Sup porting Code Source(s) Document(s ) Erythrocytes 2.79 [place] [#/volume] in 10*6/uL Hospital Blood by Automated count ID Date Data Source [id number] 01/17/2020 06:01:00 AM EDT [facility] Name Value Range Interpretation Description Data Sup porting Code Source(s) Document(s ) Leukocytes 4.2 [place] [#/volume] in 10*3/uL Hospital Blood by Automated count ID Date Data Source [id number] 01/16/2020 06:54:00 AM EDT [facility] Name Value Range Interpretation Description Data Sup porting Code Source(s) Document(s ) Hepatitis B NON-REACT [place] virus surface [facility] Ag [Presence] in Serum ID Date Data Source [id number] 01/16/2020 06:54:00 AM EDT [facility] Name Value Range Interpretation Code Description Data Supporting Source(s) Document(s ) NUCLEATED RBCS 0.0 % [place] (AUTO Hospital DIFF%)DIS ID Date Data Source [id number] 01/16/2020 06:54:00 AM EDT [facility] Name Value Range Interpretation Description Data Sup porting Code Source(s) Document(s ) Hepatitis B NON-REACT [place] virus surface [facility] Ag [Presence] in Serum ID Date Data Source [id number] 01/16/2020 06:54:00 AM EDT [facility] Name Value Range Interpretation Description Data Sup porting Code Source(s) Document(s ) Hepatitis B NON-REACT [place] virus surface [facility] Ag [Presence] in Serum ID Date Data Source [id number] 01/15/2020 06:16:00 PM EDT [facility] Name Value Range Interpretation Description Data Sup porting Code Source(s) Document(s ) Natriuretic 913.3 [place] peptide B pg/mL Hospital [Mass/volume] in Serum or Plasma ID Date Data Source [id number] 01/15/2020 06:16:00 PM [facility] TEST PERFORMED BY [employer] [facility] CHEMILUMINESCENCE METHOD. Name Value Range Interpretation Description Data Sup porting Code Source(s) Document(s ) Troponin 0.04 [place] I.cardiac ng/mL Hospital [Mass/volume ] in Serum or Plasma ID Date Data Source [id number] 01/15/2020 [facility] Value Range Interpretation Code Description Data Supporting Source(s) Document(s ) Creatine 78 U/L [place] kinase Hospital [Enzymatic activity/volu me] in Serum or Plasma ID Date Data Source [id number] 01/15/2020 [facility]16[facility] TH[facility]UTIC RANGES:UNFRACTIONATED HEPARI N THERAPY: 60-90 SECONDSARGATROBAN THERAPY: 49-99 SECONDS Name Value Range Interpretation Description Data Sup porting Code Source(s) Document(s ) aPTT in 35.1 s [place] Platelet poor Hospital plasma by Coagulation assay ID Date Data Source [id number] 01/15/2020 06:16:00 PM [facility] THERAPEUTIC RANGE FOR STANDARD ORALANTIC OAGULANT THERAPY: 2.0-3.0THERAPEUTIC RANGE FOR HIGH DOSE ORALANTICOAGULANT THERAPY (MECHANICAL HEARTVALVE REPLACEMENT): 2.5-3.5 Name Value Range Interpretation Description Data Sup porting Code Source(s) Document(s ) INR in Platelet 1.0 [place] poor plasma by Hospital Coagulation assay ID Date Data Source [id number] [facility]/15[facility]2020 [facility] Value Range Interpretation Description Data Sup porting Code Source(s) Document(s ) PT panel - 11.9 s [place] Platelet poor [facility] plasma by Coagulation assay ID Date Data Source [id number] 01/15/2020 06:16:00 PM [facility] Name Value Range Interpretation Description Data Sup porting Code Source(s) Document(s ) Natriuretic 913.3 [place] peptide B pg/mL Hospital [Mass/volume] in Serum or Plasma ID Date Data Source [id number] 01/15/2020 06:16:00 PM [facility] Name Value Range Interpretation Code Description Data Supporting Source(s) Document(s ) Creatine 78 U/L [facility] Hospital [Enzymatic activity/volu me] in Serum or Plasma ID Date Data Source [id number] 01/15/2020 06:16:00 PM [facility] Name Value Range Interpretation Code Description Data Supporting Source(s) Document(s ) Creatine 78 U/L [place] kinase Hospital [Enzymatic activity/volu me] in Serum or Plasma ID Date Data Source [id number] 01/14/2020 07:48:00 AM [facility] Value Range Interpretation Code Description Data Sharon rce(s) Supporting Document(s ) Cells 100 [facility] Total [#] in Blood ID Date Data Source [id number] 01/14/2020 07:48:00 AM EDT [facility] Name Value Range Interpretation Description Data Sup porting Code Source(s) Document(s ) Platelet PRESENT [facility] finding [Identifier] in Blood ID Date Data Source [id number] 01/14/2020 07:48:00 AM EDT [facility] Name Value Range Interpretation Code Description Data Sharon rce(s) Supporting Document(s ) TARGET CELLS [facility] ID Date Data Source [id number] 01/14/2020 07:48:00 AM EDT [facility] Value Range Interpretation Code Description Data Sharon rce(s) Supporting Document(s ) TEARDROP [facility] Hospital ID Date Data Source [id number] 01/14/2020 07:48:00 AM EDT [facility] Name Value Range Interpretation Code Description Data Sharon rce(s) Supporting Document(s ) OVALOCYTES [facility] ID Date Data Source [id number] 01/14/2020 07:48:00 AM EDT [facility] Value Range Interpretation Code Description Data Sharon rce(s) Supporting Document(s ) MACROCYTOSIS 1+ [facility] ID Date Data Source [id number] 01/14/2020 07:48:00 AM EDT [facility] Name Value Range Interpretation Description Data Sup porting Code Source(s) Document(s ) POIKILOCYTOSIS [facility] ID Date Data Source [id number] 01/14/2020 07:48:00 AM EDT [facility] Name Value Range Interpretation Code Description Data Sharon rce(s) Supporting Document(s ) ANISOCYTOSIS 1+ [facility] ID Date Data Source [id number] 01/14/2020 07:48:00 AM EDT [facility] Name Value Range Interpretation Description Data Sup porting Code Source(s) Document(s ) Eosinophils 0.38 [place] [#/volume] in 10*3/uL Hospital Blood by Manual count ID Date Data Source [id number] 01/14/2020 07:48:00 AM EDT [facility] Name Value Range Interpretation Description Data Sup porting Code Source(s) Document(s ) Monocytes 0.49 [place] [#/volume] in 10*3/uL Hospital Blood by Manual count ID Date Data Source [id number] 01/14/2020 07:48:00 AM EDT [facility] Value Range Interpretation Description Data Sup porting Code Source(s) Document(s ) Lymphocytes 0.92 [place] [#/volume] in 10*3/uL Hospital Blood by Manual count ID Date Data Source [id number] 01/14/2020 07:48:00 AM EDT [facility] Value Range Interpretation Description Data Sup porting Code Source(s) Document(s ) Neutrophils 3.62 [place] [#/volume] in 10*3/uL Hospital Blood by Manual count ID Date Data Source [id number] 01/14/2020 07:48:00 AM EDT [facility] Value Range Interpretation Description Data Sup porting Code Source(s) Document(s ) Eosinophils/100 7 % [place] leukocytes in Hospital Blood by Manual count ID Date Data Source [id number] 01/14/2020 07:48:00 AM EDT [facility] Name Value Range Interpretation Description Data Sup porting Code Source(s) Document(s ) Monocytes/100 9 % [place] leukocytes in Hospital Blood by Manual count ID Date Data Source [id number] 01/14/2020 [facility]48[facility] Value Range Interpretation Description Data Sup porting Code Source(s) Document(s ) Lymphocytes/100 17 % [place] leukocytes in Hospital Blood by Manual count ID Date Data Source [id number] 01/14/2020 [facility]:48:[facility] Value Range Interpretation Description Data Sup porting Code Source(s) Document(s ) Neutrophils/100 67 % [place] leukocytes in Hospital Blood by Manual count ID Date Data Source [id number] 01/14/2020 07:48:00 AM [facility] TEST PERFORMED BY [employer] SENSITIVE CENTAUR CHEMILUMINESCENCE METHOD. Name Value Range Interpretation Description Data Sup porting Code Source(s) Document(s ) Troponin 0.05 [place] I.cardiac ng/mL Hospital [Mass/volume ] in Serum or Plasma ID Date Data Source [id number] 01/14/2020 07:48:00 AM [facility] Name Value Range Interpretation Description Data Sup porting Code Source(s) Document(s ) Aspartate 25 U/L White aminotransferase [place] [Enzymatic Hospital activity/volume] in Serum or Plasma ID Date Data Source [id number] 01/14/2020 07:48:[facility] [address] [facility] Value Range Interpretation Description Data Sup porting Code Source(s) Document(s ) Alanine < 8 U/L White aminotransferase [place] [Enzymatic Hospital activity/volume] in Serum or Plasma ID Date Data Source [id number] 01/14/2020 07:48:[facility] [address] [facility] Value Range Interpretation Description Data Sup porting Code Source(s) Document(s ) Alkaline 78 U/L [place] phosphatase Hospital [Enzymatic activity/volume ] in Serum or Plasma ID Date Data Source [id number] 01/14/2020 07:48:00 AM EDT [facility] Name Value Range Interpretation Description Data Sup porting Code Source(s) Document(s ) Bilirubin.t 0.2 mg/dL [facility] [Mass/volum e] in Serum or Plasma ID Date Data Source [id number] 01/14/2020 07:48:00 AM EDT [facility] Name Value Range Interpretation Code Description Data Sharon rce(s) Supporting Document(s ) Albumin/Glob 1.4 [place] ulin [Mass Hospital Ratio] in Serum or Plasma ID Date Data Source [id number] 01/14/2020 07:48:00 AM EDT [facility] Name Value Range Interpretation Description Data Sup porting Code Source(s) Document(s ) Albumin 3.8 g/dL [place] [Mass/volume Hospital ] in Serum or Plasma ID Date Data Source [id number] 01/14/2020 07:48:00 AM EDT [facility] Name Value Range Interpretation Description Data Sup porting Code Source(s) Document(s ) Protein 6.5 g/dL [place] [Mass/volume Hospital ] in Serum or Plasma ID Date Data Source [id number] 01/14/2020 07:48:00 AM EDT [facility] Name Value Range Interpretation Description Data Sup porting Code Source(s) Document(s ) Calcium 7.7 mg/dL [place] [Mass/volume Hospital ] in Serum or Plasma ID Date Data Source [id number] 01/14/2020 07:48:00 AM EDT [facility] Name Value Range Interpretation Code Description Data Sharon rce(s) Supporting Document(s ) Urea 10.3 [place] nitrogen/Cre Hospital atinine [Mass Ratio] in Serum or Plasma ID Date Data Source [id number] 01/14/2020 07:48:00 AM [facility] NOTIFICATION AND READ BACK OF CRITICAL R ESULTS TO LACQUER SHADER JOJO CARRANZA AT 0836 ON 01/14/20 BY Guerrero Capone.REPORTED CRITICAL VALU ES SHOULD BE INTERPRETED WITHIN CLINICAL CONTEXT. Name Value Range Interpretation Description Data Sup porting Code Source(s) Document(s ) Creatinine 6.4 mg/dL [place] [Mass/volume] Hospital in Serum or Plasma ID Date Data Source [id number] 01/14/2020 07:48:[facility] Value Range Interpretation Description Data Sup porting Code Source(s) Document(s ) Urea 66 mg/dL [facility] Hospital [Mass/volume ] in Serum or Plasma ID Date Data Source [id number] 01/14/2020 07:48:00 AM [facility] Name Value Range Interpretation Code Description Data Sharon rce(s) Supporting Document(s ) Anion gap in [address] [place] [address] [facility] Plasma ID Date Data Source [id number] 01/14/2020 07:48:00 AM [facility] Name Value Range Interpretation Description Data Sup porting Code Source(s) Document(s ) Carbon 24 mmol/L [place] dioxide, Hospital total [Moles/volu me] in Serum or Plasma ID Date Data Source [id number] 01/14/2020 07:48:[facility] Value Range Interpretation Description Data Sup porting Code Source(s) Document(s ) Chloride 99 mmol/L [place] [Moles/volum Hospital e] in Serum or Plasma ID Date Data Source [id number] 01/14/2020 07:48:00 AM [facility] MODERATE HEMOLYSIS. NOTIFIED YRIS CARRANZA Name Value Range Interpretation Description Data Sup porting Code Source(s) Document(s ) Potassium 5.6 [place] [Moles/volume mmol/L Hospital ] in Serum or Plasma ID Date Data Source [id number] 01/14/2020 07:48:00 AM [facility] Name Value Range Interpretation Description Data Sup porting Code Source(s) Document(s ) Sodium 137 mmol/L [place] [[facility] in Serum or Plasma ID Date Data Source [id number] 01/14/2020 07:48:00 AM [facility] Name Value Range Interpretation Description Data Sup porting Code Source(s) Document(s ) Glucose 76 mg/dL [place] [Mass/volume [facility] ] in Serum or Plasma ID Date Data Source [id number] 01/14/2020 07:48:00 AM [facility] THERAPEUTIC RANGES:UNFRACTIONATED HEPARI N THERAPY: 60-90 SECONDSARGATROBAN THERAPY: 49-99 SECONDS Name Value Range Interpretation Description Data Sup porting Code Source(s) Document(s ) aPTT in 30.[address] [place] Platelet poor [facility] plasma by Coagulation assay ID Date Data Source [id number] 01/14/2020 07:48:00 AM [facility] HEMOLYZED SPECIMEN- HEMOLYSIS CAUSES KAREN RTENING OF PT AND APTT RESULTSTHERAPEUTIC RANGE FOR STANDARD ORALANTICOAGULANT THE RAPY: 2.0-3.0THERAPEUTIC RANGE FOR HIGH DOSE ORALANTICOAGULANT THERAPY (MUSEUM SPECIALIST AL HEARTVALVE REPLACEMENT): 2.5-3.5 Name Value Range Interpretation Description Data Sup porting Code Source(s) Document(s ) INR in Platelet 1.0 [place] poor plasma by Hospital Coagulation assay ID Date Data Source [id number] 01/14/2020 07:48:00 AM [facility] Name Value Range Interpretation Description Data Sup porting Code Source(s) Document(s ) PT panel - 12.2 s [place] Platelet poor [facility] plasma by Coagulation assay ID Date Data Source [id number] 01/14/2020 07:48:00 AM EDT [facility] Name Value Range Interpretation Code Description Data Supporting Source(s) Document(s ) NUCLEATED RBCS 0.0 % [place] (AUTO Hospital DIFF%)DIS ID Date Data Source [id number] 01/14/2020 07:48:00 AM EDT [facility] Name Value Range Interpretation Description Data Sup porting Code Source(s) Document(s ) Differential MANUAL [place] cell count Hospital method - Blood ID Date Data Source [id number] 01/14/2020 07:48:00 AM EDT [facility] Name Value Range Interpretation Code Description Data Sharon rce(s) Supporting Document(s ) Cells 100 [place] Counted Hospital Total [#] in Blood ID Date Data Source [id number] 01/14/2020 07:48:00 AM EDT [facility] Name Value Range Interpretation Description Data Sup porting Code Source(s) Document(s ) Platelet PRESENT [place] morphology Hospital finding [Identifier] in Blood ID Date Data Source [id number] 01/14/2020 07:48:00 AM EDT [facility] Name Value Range Interpretation Code Description Data Sharon rce(s) Supporting Document(s ) TARGET CELLS OCC [place] [facility] ID Date Data Source [id number] 01/14/2020 07:48:00 AM EDT [facility] Name Value Range Interpretation Code Description Data Sharon rce(s) Supporting Document(s ) TEARDROP OCC [place] CELLS Hospital ID Date Data Source [id number] 01/14/2020 07:48:00 AM EDT [facility] Name Value Range Interpretation Code Description Data Sharon rce(s) Supporting Document(s ) OVALOCYTES OCC [place] Hospital ID Date Data Source [id number] 01/14/2020 07:48:00 AM EDT [facility] Name Value Range Interpretation Description Data Sup porting Code Source(s) Document(s ) Platelet PRESENT [facility] finding [Identifier] in Blood ID Date Data Source [id number] 01/14/2020 07:48:00 AM EDT [facility] Value Range Interpretation Code Description Data Sharon rce(s) Supporting Document(s ) TARGET CELLS [facility] ID Date Data Source [id number] 01/14/2020 07:48:00 AM EDT [facility] Value Range Interpretation Code Description Data Sharon rce(s) Supporting Document(s ) TEARDROP [facility] Hospital ID Date Data Source [id number] 01/14/2020 07:48:00 AM EDT [facility] Value Range Interpretation Description Data Sup porting Code Source(s) Document(s ) POIKILOCYTOSIS [facility] ID Date Data Source [id number] 01/14/2020 07:48:00 AM EDT [facility] Value Range Interpretation Code Description Data Sharon rce(s) Supporting Document(s ) ANISOCYTOSIS 1+ [facility] ID Date Data Source [id number] 01/14/2020 07:48:00 AM EDT [facility] Name Value Range Interpretation Code Description Data Sharon rce(s) Supporting Document(s ) MACROCYTOSIS 1+ [facility] ID Date Data Source [id number] 01/14/2020 07:48:00 AM EDT [facility] Value Range Interpretation Description Data Sup porting Code Source(s) Document(s ) POIKILOCYTOSIS [facility] ID Date Data Source [id number] 01/14/2020 07:48:00 AM EDT [facility] Name Value Range Interpretation Code Description Data Sharon rce(s) Supporting Document(s ) ANISOCYTOSIS 1+ [facility] ID Date Data Source [id number] 01/14/2020 07:48:00 AM EDT [facility] Value Range Interpretation Description Data Sup porting Code Source(s) Document(s ) Eosinophils 0.38 [place] [#/volume] in 10*3/uL Hospital Blood by Manual count ID Date Data Source [id number] 01/14/2020 07:48:00 AM EDT [facility] Value Range Interpretation Description Data Sup porting Code Source(s) Document(s ) Monocytes 0.49 [place] [#/volume] in 10*3/uL Hospital Blood by Manual count ID Date Data Source [id number] 01/14/2020 07:48:00 AM EDT [facility] Name Value Range Interpretation Description Data Sup porting Code Source(s) Document(s ) Lymphocytes 0.92 [place] [#/volume] in 10*3/uL Hospital Blood by Manual count ID Date Data Source [id number] 01/14/2020 07:48:00 AM EDT [facility] Value Range Interpretation Description Data Sup porting Code Source(s) Document(s ) Neutrophils 3.62 [place] [#/volume] in 10*3/uL Hospital Blood by Manual count ID Date Data Source [id number] 01/14/2020 07:48:00 AM EDT [facility] Value Range Interpretation Description Data Sup porting Code Source(s) Document(s ) Eosinophils/100 7 % [place] leukocytes in Hospital Blood by Manual count ID Date Data Source [id number] 01/14/2020 07:48:00 AM EDT [facility] Value Range Interpretation Description Data Sup porting Code Source(s) Document(s ) Monocytes/100 9 % [place] leukocytes in Hospital Blood by Manual count ID Date Data Source [id number] 01/14/2020 07:48:00 AM EDT [facility] Value Range Interpretation Description Data Sup porting Code Source(s) Document(s ) Lymphocytes/100 17 % [place] leukocytes in Hospital Blood by Manual count ID Date Data Source [id number] 01/14/2020 07:48:00 AM EDT [facility] Value Range Interpretation Description Data Sup porting Code Source(s) Document(s ) Neutrophils/100 67 % [place] leukocytes in [facility] Blood by Manual count ID Date Data Source [id number] 01/14/2020 07:48:00 AM EDT [facility] Value Range Interpretation Description Data Sup porting Code Source(s) Document(s ) Platelet mean 11.6 fL [place] volume Hospital [Entitic volume] in Blood by Automated count ID Date Data Source [id number] 01/14/2020 07:48:00 AM EDT [facility] Value Range Interpretation Description Data Sup porting Code Source(s) Document(s ) Platelets 105 [place] [#/volume] in 10*3/uL Hospital Blood by Automated count ID Date Data Source [id number] 01/14/2020 07:48:00 AM EDT [facility] Value Range Interpretation Description Data Sup porting Code Source(s) Document(s ) Erythrocyte 15.2 % [place] distribution Hospital width [Ratio] by Automated count ID Date Data Source [id number] 01/14/2020 07:48:00 AM EDT [facility] Value Range Interpretation Description Data Sup porting Code Source(s) Document(s ) Erythrocyte mean 29.9 [place] corpuscular g/dL Hospital hemoglobin concentration [Mass/volume] by Automated count ID Date Data Source [id number] 01/14/2020 07:48:00 AM EDT [facility] Value Range Interpretation Description Data Sup porting Code Source(s) Document(s ) Erythrocyte 33.0 pg [facility] corpuscular hemoglobin [Entitic mass] by Automated count ID Date Data Source [id number] 01/14/2020 07:48:00 AM EDT [facility] Value Range Interpretation Description Data Sup porting Code Source(s) Document(s ) Erythrocyte 110.4 fL [facility] corpuscular volume [Entitic volume] by Automated count ID Date Data Source [id number] 01/14/2020 07:48:00 AM [facility] Value Range Interpretation Description Data Sup porting Code Source(s) Document(s ) Hematocrit 31.8 % [place] [Volume Hospital Fraction] of Blood by Automated count ID Date Data Source [id number] 01/14/2020 07:48:00 AM [facility] Value Range Interpretation Description Data Sup porting Code Source(s) Document(s ) Hemoglobin 9.5 g/dL [place] [Mass/volume] Hospital in Blood ID Date Data Source [id number] [facility] Description Data Sup porting Code Source(s) Document(s ) Erythrocytes 2.88 [place] [#/volume] in 10*6/uL Hospital Blood by Automated count ID Date Data Source [id number] 01/14/2020 [facility] Interpretation Description Data Sup porting Code Source(s) Document(s ) Leukocytes 5.4 [place] [#/volume] in 10*3/uL Hospital Blood by Automated count ID Date Data Source [id number] 01/14/2020 07:48:00 AM EDT [facility] Name Value Range Interpretation Description Data Sup porting Code Source(s) Document(s ) Platelet PRESENT [facility] finding [Identifier] in Blood ID Date Data Source [id number] 01/14/2020 07:48:00 AM EDT [facility] Name Value Range Interpretation Code Description Data Sharon rce(s) Supporting Document(s ) TARGET CELLS [facility] ID Date Data Source [id number] 01/14/2020 07:48:00 AM EDT [facility] Name Value Range Interpretation Code Description Data Sharon rce(s) Supporting Document(s ) TEARDROP [facility] Hospital ID Date Data Source [id number] 01/14/2020 07:48:00 AM EDT [facility] Name Value Range Interpretation Description Data Sup porting Code Source(s) Document(s ) POIKILOCYTOSIS [facility] ID Date Data Source [id number] 01/14/2020 [facility] Interpretation Code Description Data Sharon rce(s) Supporting Document(s ) ANISOCYTOSIS 1+ [facility] ID Date Data Source [id number] 01/14/2020 07:47[facility]:JOJO CARRANZA Name Value Range Interpretation Description Data Sup porting Code Source(s) Document(s ) Glucose 76 mg/dL [place] [Mass/volume] [facility] in Capillary blood by Glucometer ID Date Data Source [id number] 01/14/2020 07:47:00 AM [facility] Sludge Filtration Attendant:JOJO CARRANZA Name Value Range Interpretation Description Data Sup porting Code Source(s) Document(s ) Glucose 76 mg/dL [place] [Mass/volume] Hospital in Capillary blood by Glucometer ID Date Data Source [id number] 01/14/2020 07:47:00 AM [facility] Sludge Filtration Attendant:JOJO CARRANZA Name Value Range Interpretation Description Data Sup porting Code Source(s) Document(s ) Glucose 76 mg/dL [place] [Mass/volume] Hospital in Capillary blood by Glucometer ID Date Data Source [id number] 01/14/2020 07:47:00 AM [facility] Sludge Filtration Attendant:JOJO CARRANZA Name Value Range Interpretation Description Data Sup porting Code Source(s) Document(s ) Glucose 76 mg/dL [place] [Mass/volume] Hospital in Capillary blood by Glucometer ID Date Data Source [id number] 12/10/2019 02:11:00 PM [facility] Sludge Filtration Attendant:FRANKLIN SERGIO Name Value Range Interpretation Description Data Sup porting Code Source(s) Document(s ) Glucose 102 mg/dL [place] [Mass/volume] Hospital in Capillary blood by Glucometer ID Date Data Source [id number] 12/10/2019 12:05:00 PM [facility] Name Value Range Interpretation Description Data Sup porting Code Source(s) Document(s ) Platelets 53 [place] [#/volume] in 10*3/uL Hospital Blood by Automated count ID Date Data Source [id number] 12/10/2019 12:05:00 PM [facility] Name Value Range Interpretation Description Data Sup porting Code Source(s) Document(s ) Erythrocyte 13.4 % [place] distribution Hospital width [Ratio] by Automated count ID Date Data Source [id number] 12/10/2019 12:05:00 PM [facility] Value Range Interpretation Description Data Sup porting Code Source(s) Document(s ) Erythrocyte mean 32.2 [place] corpuscular g/dL Hospital hemoglobin concentration [Mass/volume] by Automated count ID Date Data Source [id number] 12/10/2019 12:05:00 PM [facility] Value Range Interpretation Description Data Sup porting Code Source(s) Document(s ) Erythrocyte 32.9 pg [facility] corpuscular hemoglobin [Entitic mass] by Automated count ID Date Data Source [id number] 12/10/2019 12:05:00 PM [facility] Value Range Interpretation Description Data Sup porting Code Source(s) Document(s ) Erythrocyte 102.0 fL [facility] corpuscular volume [Entitic volume] by Automated count ID Date Data Source [id number] 12/10/2019 12:05:00 PM [facility] Value Range Interpretation Description Data Sup porting Code Source(s) Document(s ) Hematocrit 30.4 % [place] [Volume Hospital Fraction] of Blood by Automated count ID Date Data Source [id number] 12/10/2019 12:05:00 PM [facility] Value Range Interpretation Description Data Sup porting Code Source(s) Document(s ) Hemoglobin 9.8 g/dL [place] [Mass/volume] Hospital in Blood ID Date Data Source [id number] 12/10/2019 12:05:00 PM [facility] Value Range Interpretation Description Data Sup porting Code Source(s) Document(s ) Erythrocytes 2.98 [place] [#/volume] in 10*6/uL Hospital Blood by Automated count ID Date Data Source [id number] 12/10/2019 12:05:00 PM EDT [facility] Name Value Range Interpretation Description Data Sup porting Code Source(s) Document(s ) Leukocytes 2.2 [place] [#/volume] in 10*3/uL Hospital Blood by Automated count ID Date Data Source [id number] 12/10/2019 12:05:00 PM EDT [facility] Name Value Range Interpretation Code Description Data Supporting Source(s) Document(s ) NUCLEATED RBCS 0.0 % [place] (AUTO Hospital DIFF%)DIS ID Date Data Source [id number] 12/10/2019 12:05:00 PM EDT [facility] Value Range Interpretation Description Data Sup porting Code Source(s) Document(s ) Differential AUTOMATED [place] cell count Hospital method - Blood ID Date Data Source [id number] 12/10/2019 12:05:00 PM EDT [facility] Name Value Range Interpretation Description Data Sup porting Code Source(s) Document(s ) Immature 0.01 [place] granulocytes 10*3/uL Hospital [#/volume] in Blood by Automated count ID Date Data Source [id number] 12/10/2019 12:05:00 PM EDT [facility] Name Value Range Interpretation Description Data Sup porting Code Source(s) Document(s ) Basophils 0.02 [place] [#/volume] in 10*3/uL Hospital Blood by Automated count ID Date Data Source [id number] 12/10/2019 12:05:00 PM EDT [facility] Name Value Range Interpretation Description Data Sup porting Code Source(s) Document(s ) Eosinophils 0.17 [place] [#/volume] in 10*3/uL Hospital Blood by Automated count ID Date Data Source [id number] 12/10/2019 12:05:00 PM EDT [facility] Value Range Interpretation Description Data Sup porting Code Source(s) Document(s ) Monocytes 0.06 [place] [#/volume] in 10*3/uL Hospital Blood by Automated count ID Date Data Source [id number] 12/10/2019 12:05:00 PM EDT [facility] Value Range Interpretation Description Data Sup porting Code Source(s) Document(s ) Lymphocytes 0.22 [place] [#/volume] in 10*3/uL Hospital Blood by Automated count ID Date Data Source [id number] 12/10/2019 12:05:00 PM EDT [facility] Value Range Interpretation Description Data Sup porting Code Source(s) Document(s ) Neutrophils 1.69 [place] [#/volume] in 10*3/uL [facility] Blood by Automated count ID Date Data Source [id number] 12/10/2019 12:05:00 PM EDT [facility] Value Range Interpretation Description Data Sup porting Code Source(s) Document(s ) Nucleated 0.0 % [place] erythrocytes/10 Hospital 0 leukocytes [Ratio] in Blood by Automated count ID Date Data Source [id number] 12/10/2019 12:05:00 PM EDT [facility] Value Range Interpretation Description Data Sup porting Code Source(s) Document(s ) Immature 0.5 % [place] granulocytes/10 Hospital 0 leukocytes in Blood by Automated count ID Date Data Source [id number] 12/10/2019 12:05:00 PM EDT [facility] Value Range Interpretation Description Data Sup porting Code Source(s) Document(s ) Basophils/100 0.9 % [place] leukocytes in Hospital Blood by Automated count ID Date Data Source [id number] 12/10/2019 12:05:00 PM EDT [facility] Value Range Interpretation Description Data Sup porting Code Source(s) Document(s ) Eosinophils/100 7.8 % [place] leukocytes in Hospital Blood by Automated count ID Date Data Source [id number] 12/10/2019 12:05:00 PM EDT [facility] Name Value Range Interpretation Description Data Sup porting Code Source(s) Document(s ) Monocytes/100 2.8 % [place] leukocytes in Hospital Blood by Automated count ID Date Data Source [id number] 12/10/2019 12:05:00 PM EDT [facility] Name Value Range Interpretation Description Data Sup porting Code Source(s) Document(s ) Lymphocytes/10 10.1 % [place] 0 leukocytes Hospital in Blood by Automated count ID Date Data Source [id number] 12/10/2019 12:05:00 PM EDT [facility] Name Value Range Interpretation Description Data Sup porting Code Source(s) Document(s ) Neutrophils/10 77.9 % [place] 0 leukocytes Hospital in Blood by Automated count ID Date Data Source [id number] 12/10/2019 12:05:00 PM EDT [facility] Value Range Interpretation Description Data Sup porting Code Source(s) Document(s ) Platelet mean 12.3 fL [place] volume Hospital [Entitic volume] in Blood by Automated count ID Date Data Source [id number] 12/09/2019 07:08:00 AM EDT [facility] Name Value Range Interpretation Description Data Sup porting Code Source(s) Document(s ) Phosphate 7.7 mg/dL [place] [Mass/volume] Hospital in Serum or Plasma ID Date Data Source [id number] 12/09/2019 07:08:00 AM EDT [facility] Value Range Interpretation Description Data Sup porting Code Source(s) Document(s ) Magnesium 2.0 mg/dL [place] [Mass/volume] Hospital in Serum or Plasma ID Date Data Source [id number] 12/09/2019 07:08:00 AM EDT [facility] Name Value Range Interpretation Description Data Sup porting Code Source(s) Document(s ) Aspartate 13 U/L [place] aminotransferase [place] [Enzymatic Hospital activity/volume] in Serum or Plasma ID Date Data Source [id number] 12/09/2019 07:08:00 AM EDT [facility] Name Value Range Interpretation Description Data Sup porting Code Source(s) Document(s ) Alanine < 8 U/L [place] aminotransferase [place] [Enzymatic Hospital activity/volume] in Serum or Plasma ID Date Data Source [id number] 12/09/2019 07:08:00 AM EDT [facility] Value Range Interpretation Description Data Sup porting Code Source(s) Document(s ) Alkaline 80 U/L [place] phosphatase Hospital [Enzymatic activity/volume ] in Serum or Plasma ID Date Data Source [id number] 12/09/2019 07:08:00 AM EDT [facility] Value Range Interpretation Description Data Sup porting Code Source(s) Document(s ) Bilirubin.t 0.3 mg/dL [facility] [Mass/volum e] in Serum or Plasma ID Date Data Source [id number] 12/09/2019 07:08:00 AM EDT [facility] Value Range Interpretation Code Description Data Sharon rce(s) Supporting Document(s ) Albumin/Glob 1.4 [place] ulin [Mass Hospital Ratio] in Serum or Plasma ID Date Data Source [id number] 12/09/2019 07:08:00 AM EDT [facility] Value Range Interpretation Description Data Sup porting Code Source(s) Document(s ) Albumin 3.2 g/dL [place] [Mass/volume Hospital ] in Serum or Plasma ID Date Data Source [id number] 12/09/2019 07:08:00 AM EDT [facility] Name Value Range Interpretation Description Data Sup porting Code Source(s) Document(s ) Protein 5.5 g/dL [place] [Mass/volume Hospital ] in Serum or Plasma ID Date Data Source [id number] 12/09/2019 07:08:00 AM EDT [facility] Name Value Range Interpretation Description Data Sup porting Code Source(s) Document(s ) Calcium 7.8 mg/dL [place] [Mass/volume Hospital ] in Serum or Plasma ID Date Data Source [id number] 12/09/2019 07:08:00 AM [facility] UNITS ARE IN ml/min/1.73m2.IF PATIENT IS -COMORAN, MULTIPLY REPORTED RESULT BY 1.21. Name Value Range Interpretation Description Data Sup porting Code Source(s) Document(s ) Glomerular 8 mL/min [place] filtration Hospital rate/1.73 sq M.predicted [Volume Rate/Area] in Serum or Plasma by Creatinine-bas ed formula (MDRD) ID Date Data Source [id number] 12/09/2019 07:08:00 AM [facility] Name Value Range Interpretation Code Description Data Sharon rce(s) Supporting Document(s ) Urea 5.0 [place] nitrogen/Cre Hospital atinine [Mass Ratio] in Serum or Plasma ID Date Data Source [id number] 12/09/2019 07:08:00 AM [facility] Name Value Range Interpretation Description Data Sup porting Code Source(s) Document(s ) Creatinine 5.4 mg/dL [place] [Mass/volume] Hospital in Serum or Plasma ID Date Data Source [id number] 12/09/2019 07:08:00 AM EDT [place] [facility] Name Value Range Interpretation Description Data Sup porting Code Source(s) Document(s ) Urea 27 mg/dL [place] nitrogen Hospital [Mass/volume ] in Serum or Plasma ID Date Data Source [id number] 12/09/2019 07:08:00 AM EDT [facility] Name Value Range Interpretation Code Description Data Sharon rce(s) Supporting Document(s ) Anion gap in [address] [place] [address] [facility] Plasma ID Date Data Source [id number] 12/09/2019 07:08:00 AM EDT [facility] Value Range Interpretation Description Data Sup porting Code Source(s) Document(s ) Carbon 28 mmol/L [place] dioxide, Hospital total [Moles/volu me] in Serum or Plasma ID Date Data Source [id number] 12/09/2019 07:08:00 AM EDT [facility] Name Value Range Interpretation Description Data Sup porting Code Source(s) Document(s ) Chloride 101 [place] [Moles/volum mmol/L Hospital e] in Serum or Plasma ID Date Data Source [id number] 12/09/2019 07:08:00 AM EDT [facility] Name Value Range Interpretation Description Data Sup porting Code Source(s) Document(s ) Potassium 5.1 [place] [Moles/volume mmol/L Hospital ] in Serum or Plasma ID Date Data Source [id number] 12/09/2019 07:08:00 AM EDT [facility] Name Value Range Interpretation Description Data Sup porting Code Source(s) Document(s ) Sodium 138 mmol/L [place] [Moles/volu Hospital me] in Serum or Plasma ID Date Data Source [id number] 12/09/2019 07:08:00 AM EDT [facility] Name Value Range Interpretation Description Data Sup porting Code Source(s) Document(s ) Glucose 123 mg/dL [place] [Mass/volume Hospital ] in Serum or Plasma ID Date Data Source [id number] 12/08/2019 05:18:00 AM EDT [facility] Name Value Range Interpretation Description Data Sup porting Code Source(s) Document(s ) Hepatitis C NON-REACT [place] virus Ab [facility] [Presence] in Serum ID Date Data Source [id number] 12/08/2019 05:18:00 AM EDT [facility] Name Value Range Interpretation Description Data Sup porting Code Source(s) Document(s ) Hepatitis B NON-REACT [place] virus core Ab [facility] [Presence] in Serum ID Date Data Source [id number] 12/08/2019 05:18:00 AM EDT [facility] Name Value Range Interpretation Description Data Sup porting Code Source(s) Document(s ) Hepatitis A NON-REACT [place] virus Ab [facility] [Presence] in Serum ID Date Data Source [id number] 12/08/2019 05:18:00 AM EDT [facility] Name Value Range Interpretation Description Data Sup porting Code Source(s) Document(s ) Hepatitis B NON-REACT [place] virus surface [facility] Ab [Presence] in Serum ID Date Data Source [id number] 12/08/2019 05:18:00 AM EDT [facility] Name Value Range Interpretation Description Data Sup porting Code Source(s) Document(s ) Hepatitis B NON-REACT [place] virus surface [facility] Ag [Presence] in Serum ID Date Data Source [id number] 12/08/2019 05:18:00 AM EDT [facility] Name Value Range Interpretation Code Description Data Sharon rce(s) Supporting Document(s ) Cells 100 [place] Counted Hospital Total [#] in Blood ID Date Data Source [id number] 12/08/2019 05:18:00 AM EDT [facility] Value Range Interpretation Code Description Data Supporting Source(s) Document(s ) PLATELET NORMAL [place] COMMENT Hospital ID Date Data Source [id number] 12/08/2019 05:18:00 AM EDT [facility] Value Range Interpretation Description Data Sup porting Code Source(s) Document(s ) Platelets DECREASED [place] [#/volume] in Hospital Blood by Estimate ID Date Data Source [id number] 12/08/2019 05:18:00 AM EDT [facility] Value Range Interpretation Code Description Data Sharon rce(s) Supporting Document(s ) MACROCYTOSIS 1+ [facility] ID Date Data Source [id number] 12/08/2019 05:18:00 AM EDT [facility] Value Range Interpretation Description Data Sup porting Code Source(s) Document(s ) Eosinophils 0.32 [place] [#/volume] in 10*3/uL Hospital Blood by Manual count ID Date Data Source [id number] 12/08/2019 05:18:00 AM EDT [facility] Value Range Interpretation Description Data Sup porting Code Source(s) Document(s ) Monocytes 0.25 [place] [#/volume] in 10*3/uL Hospital Blood by Manual count ID Date Data Source [id number] 12/08/2019 05:18:00 AM EDT [facility] Value Range Interpretation Description Data Sup porting Code Source(s) Document(s ) Lymphocytes 0.84 [place] [#/volume] in 10*3/uL Hospital Blood by Manual count ID Date Data Source [id number] 12/08/2019 05:18:00 AM EDT [facility] Value Range Interpretation Description Data Sup porting Code Source(s) Document(s ) Neutrophils 2.10 [place] [#/volume] in 10*3/uL Hospital Blood by Manual count ID Date Data Source [id number] 12/08/2019 05:18:00 AM EDT [facility] Value Range Interpretation Description Data Sup porting Code Source(s) Document(s ) Eosinophils/100 9 % [place] leukocytes in Hospital Blood by Manual count ID Date Data Source [id number] 12/08/2019 05:18:00 AM EDT [facility] Value Range Interpretation Description Data Sup porting Code Source(s) Document(s ) Monocytes/100 7 % [place] leukocytes in Hospital Blood by Manual count ID Date Data Source [id number] 12/08/2019 05:18:00 AM EDT [facility] Value Range Interpretation Description Data Sup porting Code Source(s) Document(s ) Lymphocytes/100 24 % [place] leukocytes in Hospital Blood by Manual count ID Date Data Source [id number] 12/08/2019 05:18:00 AM EDT [facility] Value Range Interpretation Description Data Sup porting Code Source(s) Document(s ) Neutrophils/100 60 % [place] leukocytes in Hospital Blood by Manual count ID Date Data Source [id number] 12/08/2019 04:29:00 AM EDT [facility] Value Range Interpretation Description Data Sup porting Code Source(s) Document(s ) GLUCOSE RN Notified [facility] ID Date Data Source [id number] 12/07/2019 05:33:00 PM EDT [facility] Value Range Interpretation Code Description Data Sharon rce(s) Supporting Document(s ) READ BACK Yes/ [place] [facility] ID Date Data Source [id number] 12/07/2019 05:33:00 PM EDT [facility] Value Range Interpretation Code Description Data Sharon rce(s) Supporting Document(s ) NOTE WHO [facility]. Alejo. [facility] Hospital ID Date Data Source [id number] 12/07/2019 05:33:00 PM EDT [facility] Name Value Range Interpretation Description Data Sup porting Code Source(s) Document(s ) IONIZED 1.22 [place] CALCIUM mmol/L Hospital ID Date Data Source [id number] 12/07/2019 05:33:00 PM EDT [facility] Value Range Interpretation Code Description Data Supporting Source(s) Document(s ) METHEMOGLOBIN 0.2 % [facility] ID Date Data Source [id number] 12/07/2019 05:33:00 PM EDT [facility] Value Range Interpretation Description Data Sup porting Code Source(s) Document(s ) CARBOXYHEMOGLOBIN 0.5 % [facility] ID Date Data Source [id number] 12/07/2019 05:33:00 PM EDT [facility] Value Range Interpretation Code Description Data Sharon rce(s) Supporting Document(s ) ABG TEMP 98.0 [facility] ID Date Data Source [id number] 12/07/2019 05:33:00 PM EDT [facility] Value Range Interpretation Code Description Data Sharon rce(s) Supporting Document(s ) FIO2 100 % [facility] ID Date Data Source [id number] 12/07/2019 05:33:00 PM EDT [facility] Value Range Interpretation Code Description Data Sharon rce(s) Supporting Document(s ) ABG BE -5.4 mmol/L [facility] ID Date Data Source [id number] 12/07/2019 05:33:00 PM EDT [facility] Value Range Interpretation Code Description Data Sharon rce(s) Supporting Document(s ) ABG O2SAT 95 % [facility] ID Date Data Source [id number] 12/07/2019 05:33:00 PM EDT [facility] Value Range Interpretation Code Description Data Sharon rce(s) Supporting Document(s ) ABG HCO3 22 mmol/L [facility] ID Date Data Source [id number] 12/07/2019 05:33:00 PM EDT [facility] Value Range Interpretation Code Description Data Sharon rce(s) Supporting Document(s ) ABG PO2 97 mm[Hg] [facility] ID Date Data Source [id number] 12/07/2019 05:33:00 PM EDT [facility] Value Range Interpretation Code Description Data Sharon rce(s) Supporting Document(s ) ABG PCO2 54 mm[Hg] [facility] ID Date Data Source [id number] 12/07/2019 05:33:00 PM EDT [facility] Value Range Interpretation Code Description Data Sharon rce(s) Supporting Document(s ) ABG PH 7.24 [facility] ID Date Data Source [id number] 12/07/2019 05:33:00 PM EDT [facility] Value Range Interpretation Code Description Data Sharon rce(s) Supporting Document(s ) ABG MODE NRM [facility] ID Date Data Source [id number] 12/07/2019 05:33:00 PM EDT [facility] Value Range Interpretation Code Description Data Supporting Source(s) Document(s ) ABG SITE Right [facility] ID Date Data Source [id number] 12/07/2019 05:33:00 PM EDT [facility] Name Value Range Interpretation Code Description Data Supporting Source(s) Document(s ) ABG SOURCE ARTERIAL [facility] ID Date Data Source [id number] 12/07/2019 05:33:00 PM EDT [facility] Name Value Range Interpretation Code Description Data Sharon rce(s) Supporting Document(s ) XAVIER TEST POSITIVE [facility] ID Date Data Source [id number] 12/07/2019 05:14:00 PM EDT [facility] Name Value Range Interpretation Description Data Sup porting Code Source(s) Document(s ) C reactive 15.4 mg/L [place] protein Hospital [Mass/volume ] in Serum or Plasma ID Date Data Source [id number] 12/07/2019 05:14:00 PM EDT [facility] Name Value Range Interpretation Description Data Sup porting Code Source(s) Document(s ) Ferritin 785.0 [place] [Mass/volume ng/mL Hospital ] in Serum or Plasma ID Date Data Source [id number] 12/07/2019 [facility]FOR[facility] BY [employer]ENSIT[facility] CHEMILUMINESCENCE METHOD. Name Value Range Interpretation Description Data Sup porting Code Source(s) Document(s ) Troponin 0.10 [place] I.cardiac ng/mL Hospital [Mass/volume ] in Serum or Plasma ID Date Data Source [id number] 12/07/2019 05:14:00 PM EDT [facility] Name Value Range Interpretation Description Data Sup porting Code Source(s) Document(s ) Procalcitonin 0.6 [place] [Mass/volume] in ng/mL Hospital Serum or Plasma ID Date Data Source [id number] 12/07/2019 [facility] Value Range Interpretation Code Description Data Supporting Source(s) Document(s ) Creatine 35 U/L [place] kinase [facility] [Enzymatic activity/volu me] in Serum or Plasma ID Date Data Source [id number] 12/07/2019 [facility]14[facility] Name Value Range Interpretation Description Data Sup porting Code Source(s) Document(s ) Lactate 144 U/L [place] dehydrogenase [facility] [Enzymatic activity/volume] in Serum or Plasma ID Date Data Source [id number] 12/07/2019 05:14:00 PM [facility] THERAPEUTIC RANGES:UNFRACTIONATED HEPARI N THERAPY: 60-90 SECONDSARGATROBAN THERAPY: 49-99 SECONDS Name Value Range Interpretation Description Data Sup porting Code Source(s) Document(s ) aPTT in 79.[address] [place] Platelet poor [facility] plasma by Coagulation assay ID Date Data Source [id number] 12/07/2019 05:14:00 PM [facility] THERAPEUTIC RANGE FOR STANDARD ORALANTIC OAGULANT THERAPY: 2.0-3.0THERAPEUTIC RANGE FOR HIGH DOSE ORALANTICOAGULANT THERAPY (MECHANICAL HEARTVALVE REPLACEMENT): 2.5-3.5 Name Value Range Interpretation Description Data Sup porting Code Source(s) Document(s ) INR in Platelet 1.2 [place] poor plasma by Hospital Coagulation assay ID Date Data Source [id number] 12/07/2019 05:14[facility] Value Range Interpretation Description Data Sup porting Code Source(s) Document(s ) PT panel - 13.[address] [place] [facility] plasma by Coagulation assay ID Date Data Source [id number] 12/07/2019 05:06:[address] [facility] Name Value Range Interpretation Description Data Sup porting Code Source(s) Document(s ) Bacteria No growth [place] identified in Hospital Blood by Culture ID Date Data Source [id number] 11/26/2019 06:39:00 AM EDT [facility] [id number] Corporation Name Value Range Interpretation Description Data Sup porting Code Source(s) Document(s ) Leukocytes 4.4 k/mm3 4.8-10 <td> 11/26/2019 [place] [#/volume] in .8 06:39</td><td> [facility] Blood by k/mm3 WBC [facility] Automated count </td><td><Cellerationat ion raph styleCode="Bold "> 4.4 L </paragraph>
(4.8-10.8) k/mm3 </td> Hematocrit 35.4 % 37.0-4 <td> 11/26/2019 [place] [Volume 7.0 % 06:39</td><td> [facility] Fraction] of HCT Health Care Blood by </td><td><CoPatient Automated count raph styleCode="Bold "> 35.4 L </paragraph>
(37.0-47.0) % </td> Erythrocytes 3.21 m/mm3 3.90-5 <td> 11/26/2019 [facility] r [#/volume] in .20 06:39</td><td> [facility] Blood m/mm3 RBC Health Care </td><td><CoPatient raph styleCode="Bold "> 3.21 L </paragraph>
(3.90-5.20) m/mm3 </td> Hemoglobin 10.5 g/dL 12.0-1 <td> 11/26/2019 [place] [Mass/volume] 6.0 06:39</td><td> [facility] in Blood g/dL HGB Health Care </td><td><CoPatient raph styleCode="Bold "> 10.5 L </paragraph>
(12.0-16.0) g/dL </td> Erythrocyte 110.3 fL 81.0-9 <td> 11/26/2019 [place] mean 9.0 fL 06:39</td><td> [facility] corpuscular MCV [facility] volume [Entitic </td><td><marta Corporat ion volume] by raph Automated count styleCode="Bold "> 110.3 H </paragraph>
(81.0-99.0) fL </td> Erythrocyte 32.7 pg 27.0-3 <td> 11/26/2019 [place] mean 1.5 pg 06:39</td><td> [facility] corpuscular [facility] Health Care hemoglobin </td><td><marta Corporation [Entitic mass] raph by Automated styleCode="Bold count "> 32.7 H </paragraph>
(27.0-31.5) pg </td> Erythrocyte 14.9 % 11.5-1 <td> 11/26/2019 [place] distribution 4.5 % 06:39</td><td> [facility] width [Entitic RDW Health Care volume] by </td><td><[employer]a [employer] Automated count raph styleCode="Bold "> 14.9 H </paragraph>
(11.5-14.5) % </td> Erythrocyte 29.7 % 32.0-3 <td> 11/26/2019 [place] mean 6.0 % 06:39</td><td> [facility] corpuscular [facility] hemoglobin </td><td><marta [employer] concentration raph [Mass/volume] styleCode="Bold in Blood from "> Fetus by 29.7 Automated count L </paragraph>
(32.0-36.0) % </td> Lymphocytes 23.8 % 17.0-5 <td> 11/26/2019 [place] [#/volume] in 0.0 % 06:39</td><td> [facility] Blood by Lymphocytes Health Care Automated count </td><td> Corporation 23.8
(17.0-50.0) % </td> Platelet mean 12.2 fL 9.8-12 <td> 11/26/2019 [facility] r volume [Entitic .8 fL 06:39</td><td> County volume] in MPV </td><td> Health Care Blood by Corporation Automated count 12.2
(9.8-12.8) fL </td> Platelets 71 k/mm3 160-41 <td> 11/26/2019 [place] [#/volume] in 0 06:39</td><td> [facility] Blood by k/mm3 Platelet Count Health Care Automated count </td><td><[employer] Corpor[employer] ion raph styleCode="Bold "> 71 L </paragraph>
(160-410) k/mm3 </td> Basophils+Eosin 9.1 % 0.0-5. <td> 11/26/2019 [facility] ophils+Monocyte 0 % 06:39</td><td> County s [#/volume] in Eosinophils Health Care Blood by </td><td><marta [employer] Automated count raph styleCode="Bold "> 9.1 H </paragraph>
(0.0-5.0) % </td> Basophils 1.1 % 0.0-2. <td> 11/26/2019 [place] [#/volume] in 0 % 06:39</td><td> [facility] Blood by Basophils Health Care Automated count </td><td> Corporation 1.1
(0.0-2.0) % </td> Monocytes/Leuko 13.2 % 0.0-11 <td> 11/26/2019 [facility] cytes [Pure .0 % 06:39</td><td> County number Monocytes. Health Care fraction] in </td><td><marta Corporation Blood by raph Automated count styleCode="Bold "> 13.2 H </paragraph>
(0.0-11.0) % </td> Immature 0.5 % 0.0-0. <td> 11/26/2019 [place] granulocytes/10 5 % 06:39</td><td> County 0 leukocytes in IG% </td><td> Health Ut re Blood by Corporation Automated count 0.5
(0.0-0.5) %
The IG fraction represents metamyelocytes, myelocytes and/or
promyelocytes and is only reported as part of the automated
differential when found at a percentage of less than 6.
If higher than 6%, a manual differential will be performed.

(0.0-0.5) % </td> Macrocytes Slight <td> 11/25/2019 [place] [Presence] in 06:58</td><td> [facility] Blood by Light Macrocytic Health Care microscopy </td><td> [employer] Slight
</td> Neutrophils [#] 52.3 % 40.0-7 <td> 11/26/2019 [facility] in Body fluid 6.0 % 06:39</td><td> [facility] by Manual count Neutrophils Health Care </td><td> [employer] 52.3
(40.0-76.0) % </td> Ovalocytes Few <td> 11/25/2019 [place] [Presence] in 11:10</td><td> [facility] Blood by Light Ovalocytes Health Care microscopy </td><td> [employer] Few
</td> Poikilocytosis Slight <td> 11/25/2019 [facility] [Presence] in 11:10</td><td> [facility] Blood by Light Poikilocytosis Health Car e microscopy </td><td> [employer] Slight
</td> Glucose 76 mg/dL 70-105 <td> 11/26/2019 [place] [Mass/volume] mg/dL 06:39</td><td> [facility] in Blood Glucose-Serum Health Care </td><td> [employer] 76
(70-105) mg/dL </td> Sodium 136 mEq/L 135-14 <td> 11/26/2019 [place] [Moles/volume] 5 06:39</td><td> [facility] in Serum or mEq/L Sodium-Serum Health Care Plasma </td><td> [employer] 136
(135-145) mEq/L </td> Dacrocytes RARE <td> 11/25/2019 [place] [Presence] in 11:10</td><td> [facility] Blood by Light Tear Drop Cells Health Ca re microscopy </td><td> [employer] RARE
</td> Potassium 4.3 mEq/L 3.5-5. <td> 11/26/2019 [place] [Moles/volume] 1 06:39</td><td> County in Serum or mEq/L Potassium-Serum Health Care Plasma </td><td> [employer] 4.3
(3.5-5.1) mEq/L </td> Carbon dioxide, 29 mEq/L 22-30 <td> 11/26/2019 [facility] total mEq/L 06:39</td><td> County [Moles/volume] CO2 </td><td> Health Car e in Serum or Corporation Plasma 29
(22-30) mEq/L </td> Chloride 98 mEq/L 98-107 <td> 11/26/2019 [place] [Moles/volume] mEq/L 06:39</td><td> County in Serum or Chloride Health Care Plasma </td><td> [employer] 98
(98-107) mEq/L </td> Urea nitrogen 24 mg/dL 6-22 <td> 11/26/2019 [facility] r [Mass/volume] mg/dL 06:39</td><td> County in Blood BUN Health Care </td><td><marta [facility] raph styleCode="Bold "> 24 H </paragraph>
(6-22) mg/dL </td> Bilirubin.total 0.4 mg/dL 0.2-1. <td> 11/22/2019 [facility] [Mass/volume] 3 21:03</td><td> County in Blood mg/dL Bilirubin - Health Care [employer] </td><td> 0.4
(0.2-1.3) mg/dL </td> Aspartate 22 U/L 4-35 <td> 11/22/2019 [place] aminotransferas U/L 21:03</td><td> County e [Enzymatic AST (SGOT) Health Care activity/volume </td><td> [employer] ] in Serum or Plasma 22
(4-35) U/L </td> Alanine 11 U/L 6-55 <td> 11/22/2019 [place] aminotransferas U/L 21:03</td><td> County e [Enzymatic ALT (SGPT) Health Care activity/volume </td><td> Corporation ] in Serum or Plasma 11
(6-55) U/L </td> Creatinine 3.97 mg/dL 0.57-1 <td> 11/26/2019 [place] [Moles/volume] .11 06:39</td><td> County in Serum or mg/dL Creatinine. Health Care Plasma </td><td><CoPatient raph styleCode="Bold "> 3.97 H </paragraph>
(0.57-1.11) mg/dL </td> Proteins - 7.2 g/dL 6.4-8. <td> 11/22/2019 [place] Total 3 g/dL 21:03</td><td> [facility] Proteins - Health Care [employer] </td><td> 7.2
(6.4-8.3) g/dL </td> Calcium 7.8 mg/dL 8.6-10 <td> 11/26/2019 [place] [Mass/volume] .2 06:39</td><td> County in Blood mg/dL Calcium Health Care </td><td><CoPatient raph styleCode="Bold "> 7.8 L </paragraph>
(8.6-10.2) mg/dL </td> Albumin 3.6 g/dL 3.4-4. <td> 11/22/2019 [place] [Mass/volume] 8 g/dL 21:03</td><td> County in Serum or Albumin Health Care Plasma </td><td> [employer] 3.6
(3.4-4.8) g/dL </td> Anion gap in 9 mEq/L 7-13 <td> 11/26/2019 [place] Serum or Plasma mEq/L 06:39</td><td> County Anion Gap Health Care </td><td> [employer] 9
(7-13) mEq/L </td> Globulin 3.6 gm/dL 2.9-4. <td> 11/22/2019 [place] [Mass/volume] 0 21:03</td><td> [facility] in Serum gm/dL Globulin Health Care </td><td> [facility] 3.6
(2.9-4.0) gm/dL </td> Hemolysis index No <td> 11/26/2019 [facility] of Serum or Hemolysis 06:39</td><td> [facility] Plasma Hemolysis Index Health [facility] </td><td> [facility] No Hemolysis
</td> Lipemic index No Lipemia <td> 11/26/2019 [facility] of Serum or 06:39</td><td> [facility] Plasma Lipemia Index [facility] </td><td> [facility] No Lipemia
</td> Icteric index Not <td> 11/26/2019 [facility] r of Serum or Icteric 06:39</td><td> [facility] Plasma Icteric Index [facility] </td><td> [facility] Not Icteric
</td> Phosphate 6.1 mg/dL 2.3-4. <td> 11/26/2019 [place] [Mass/volume] 7 06:39</td><td> [facility] in Serum or mg/dL Inorganic Health Care Plasma Phosphorus [facility] </td><td><marta raph styleCode="Bold "> 6.1 H </paragraph>
(2.3-4.7) mg/dL </td> Prothrombin 10.4 secs 9.8-12 <td> 11/26/2019 [place] time (PT) .0 06:39</td><td> [facility] secs Prothrombin Health Care Time. [facility] </td><td> 10.4
(9.8-12.0) secs </td> aPTT panel - 31.0 secs 25.0-3 <td> 11/26/2019 [place] Platelet poor 2.0 06:39</td><td> [facility] plasma secs Partial Health Care Thromboplastin [facility] Time </td><td> 31.0
(25.0-32.0) secs </td> Amylase 52 U/L 22-100 <td> 11/22/2019 [place] [Enzymatic U/L 21:03</td><td> [facility] activity/volume Amylase Level Health Car e ] in Serum or </td><td> [employer] Plasma 52
(22-100) U/L </td> Hemoglobin A1C 4.9 % 4.0-5. <td> 11/24/2019 [facility] 6 % 08:59</td><td> [facility] Hemoglobin A1C [facility] </td><td> [employer] 4.9
(4.0-5.6) %
Increased risk for diabetes mellitus is seen in patients with HgA1C values
between 5.7-6.4%. Values > or = 6.5% are considered diagnostic of diabetes
mellitus.
Hemolytic anemias, hemoglobinopath ies, or recent transfusion may impact
HbA1c results. Clinical correlation is recommended.
===
ESTIMATED AVERAGE GLUCOSE (eAG)
---
RELATIONSHIP BETWEEN A1C AND eAG
===
A1C(%) eAG(mg/dL)
6 1 26
7 1 54
8 1 83
9 2 12
10 240
11 269
12 298
Source: Adapted from [employer]. Standards of medical
care in diabetes-2014. Diabetes Care.2014;37(Mcpherson pp 1):S14-S80, table 8.

(4.0-5.6) % </td> Magnesium 2.2 mg/dL 1.6-2. <td> 11/26/2019 [place] [Mass/volume] 6 06:39</td><td> County in Serum or mg/dL Magnesium Level Health Care Plasma </td><td> [employer] 2.2
(1.6-2.6) mg/dL </td> Cholesterol in 51 mg/dL >60 <td> 11/23/2019 [facility] HDL mg/dL 08:11</td><td> [facility] [Mass/volume] HDL Cholesterol Health Car e in Serum or </td><td> [employer] Plasma 51
(>60) mg/dL </td> Cholesterol in 79 mg/dL <150 <td> 11/23/2019 [facility] LDL mg/dL 08:11</td><td> [facility] [Mass/volume] LDL Cholesterol Health Car e in Serum or </td><td> [employer] Plasma 79
(<150) mg/dL </td> Cholesterol 146 mg/dL 125-24 <td> 11/23/2019 [place] [Moles/volume] 0 08:11</td><td> County in Serum or mg/dL Cholesterol Health Care Plasma </td><td> [employer] 146
(125-240) mg/dL </td> Glucose 362 mg/dL 70-105 <td> 11/25/2019 [place] [Mass/volume] mg/dL 21:28</td><td> County in Capillary Glucose - Health Care blood by [employer] Glucometer </td><td><marta raph styleCode="Bold "> 362 * CH </paragraph>
(70-105) mg/dL </td> Triglyceride 81 mg/dL 30-200 <td> 11/23/2019 [place] [Mass/volume] mg/dL 08:11</td><td> County in Serum or Triglyceride Health Care Plasma </td><td> Corporation 81
(30-200) mg/dL </td> ID Date Data Source [id number] 11/23/2019 12:27:00 PM EDT [facility] [id number] Corporation Name Value Range Interpretation Description Data Sup porting Code Source(s) Document(s ) Nuclear [id number] [facility] <td> 11/26/2019 [facility] Stress [id number] 09:54</td><td> [facility] Test,Racheal [id number] Nuclear Stress Health Care scan Non-Invasive Test,[facility] </td><td> Laboratory [id number] Advanced
[facility] Physician
Services, [id number] [address] [place] [address]
[place], [place] [phone] Phone [phone]

[phone] Fax Non-Invasive
Myocardial Cardiology Perfusion
Imaging Laboratory Regadenoson
(Lexiscan) Advanced Name: AINSLEY
LILO Physician
Study Date: Services, 11/26/2019
09:54 AM MRN: [id number] [facility] [id number]
[place], [place] BP: 163/76
mmHg : [address]18[address] 1945
Phone [phone] Gender:
Female Age: [phone] Fax 74 yrs
Height: 62 in Account

Number: Myocardial [id number] Perfusion Weight: Imaging 165 lb HR: 65
Regadenoson (Lexiscan) BSA: 1.8 m2
Patient Name: LILO SCHMITZ Location: 5SE Reason For Study Date: Study: SYNCOPE, 11/26/2019 09:54 VTACH, AM SUBCLAVIAN SHON
MRN: History: [id number] ESRD-HD, Bipolar BP: 163/76 mmHg disorder,
Breast cancer, : S/P Chemo, Gout 1945 and Neuropathy, Gender: Female Left shoulder
fracture, Right Age: 74 yrs wrist fracture, Bariatric sx, Height: Cardiac cath 62 in Medications:
Abilify, Account Number: Amlodipine, [id number] Carbamazepine, Weight: Folic Acid, 165 lb Multivitamin,
HR: Pravastatin, 65 propranolol, Protonix, BSA: 1.8 m2 Seroquel,
Uloric , Patient Listerol, Location: 5SE Synthroid
Ordering Reason For Physician: Study: SYNCOPE, Von Plaza VTACH, Referring SUBCLAVIAN SHON Physician: Von Plaza

Performed By: History: James, ESRD-HD, Bipolar MD Donovan disorder, Breast cancer, S/P Interpretation Chemo, Gout and Summary
Normal study Neuropathy, Normal Left shoulder pharmacological fracture, Right stress and rest wrist fracture, perfusion Bariatric sx, imaging.
Normal global Cardiac cath and regional
wall motion in Medications: all Abilify, territories. Amlodipine, Performed Carbamazepine, by: Folic Acid, Lyric Multivitamin, Jacqui, RN
Stress Pravastatin, Results propranolol, Protocol: Protonix, Lexiscan Seroquel, Uloric Maximum , Listerol, Predicted HR: Synthroid 148 bpm
Target HR: 126 Ordering bpm % Physician: Von Rubio Predicted HR:
51 % Referring Duration Heart Physician: Von Vazquez (mm:ss) Rate
BP Dose Performed By: Andrew Ramirez, (bpm) NSR. MD Donovan No arrhythmias. T wave

Baseline Interpretation 65 Summary 163/76
inversions in Normal child care group leader III. No
symptoms. Normal Lexiscan pharmacological / stress and rest 30.80mCi(Sestam perfusion ibi) bolus imaging. 0.4mg
Lexiscan 1 Normal global 1:00 71 and regional / NSR. wall motion in No arrhythmias. all territories. ST-T same as Minute

Performed by: baseline. SOB. Lexiscan

2 Lyric Osman RN NSR. No arrhythmias. No

ST-T wave Stress Results Minutes
1:00 77 Protocol: 132/68 Lexiscan changes. Head Maximum pressure. SOB. Predicted HR: Nausea. 148 bpm Lexiscan 3
1:00 76 Target HR: 126 139/67 NSR. bpm % No arrhythmias. Maximum No ST-T wave Predicted HR: 51 Minutes %

changes. Duration Heart Headache, SOB.
Recovery 2 Stage 76 (mm:ss) Rate 146/72 NSR. BP Dose No arrhythmias. Comment No ST-T wave
Minutes (bpm)
NSR. changes. No arrhythmias. Headache T wave improving. SOB.
Recovery 4 Baseline 75 65 163/76 148/73 NSR. inversions in No arrhythmias. lead III. No No ST-T wave
Minutes symptoms.
changes. Lexiscan Symptoms / improving. 30.80mCi(Sestami Late Recovery bi) 77
bolus / NSR. 0.4mg No arrhythmias.
No ST-T wave Lexiscan 1 5 Minutes 1:00 71 / NSR. No changes. arrhythmias. Symptoms ST-T same as resolved.
Stress Minute Duration: 3:00 mm:ss * baseline. SOB. Maximum Stress
HR: 76 bpm * Lexiscan 2 METS: 1 ICD-10 NSR. No R55 Syncope. arrhythmias. No History ST-T wave ESRD-HD,
Bipolar Minutes disorder, 1:00 77 Breast cancer, 132/68 S/P Chemo, Gout changes. Head and Neuropathy, pressure. SOB. Left shoulder
fracture, Right Nausea. wrist fracture,
Bariatric sx, Lexiscan 3 Cardiac cath. 1:00 76 Risk Factors 139/67 NSR. The patient No arrhythmias. has a previous No ST-T wave history of
family history Minutes of CAD. The patient has a changes. previous Headache, SOB. history of
Dyslipidemia. Recovery 2 The patient has 76 a previous 146/72 NSR. history of No arrhythmias. Hypertension. No ST-T wave The patient has
a previous Minutes history of smoking. changes. Medications/Al Headache lergies improving. SOB. Medications:
Abilify, Recovery 4 Amlodipine, 75 Carbamazepine, 148/73 NSR. Folic Acid, No arrhythmias. Multivitamin, No ST-T wave Pravastatin,
propranolol, Minutes Protonix, Seroquel, changes. Uloric , Symptoms Listerol, improving. Synthroid
Allergies: Late Recovery Levaquin, 77 / Cipro, NSR. No Steroids, arrhythmias. No Neurontin. ST-T wave Consent This
5 patient has Minutes been consented for this changes. procedure. Symptoms Procedure The resolved. patient was injected with

10.70mCi Tc99m Stress Sestamibi IV at Duration: 3:00 rest. Injected mm:ss * by .
Injection site: Maximum Stress Right shoulder. HR: 76 bpm * Stress METS: 1 Protocol: Lexiscan. The

patient was ICD-10 injected with
R55 30.80mCi Tc99m Syncope. Sestamibi IV at

stress. History Injected at:
0:35 at start ESRD-HD, Bipolar of stage. disorder, Breast Injected by . cancer, S/P The Lexiscan Chemo, Gout and protocol was Neuropathy, completed.
Injection site: Left shoulder Right shoulder. fracture, Right Lexiscan stress wrist fracture, with isotope. Bariatric sx, Lexiscan 0.4 mg Cardiac cath. was given iv over 10 seconds

followed by Risk Factors saline flush.
Stress dose of The patient has radiotracer was a previous injected iv 30 history of seconds later. family history Rest ECG of CAD. The Normal sinus patient rhythm 65 bpm.
has T wave a previous inversions in history of lead III. Dyslipidemia. Stress ECG At The patient has peak stress ECG a previous showed No ST-T history wave changes
of from baseline. Hypertension. At peak The patient has stress the a previous rhythm showedNo history of significant smoking. changes from baseline.

Rest Perfusion Medications/[place] This is a rgies normal rest
perfusion Medications: study. Abilify, Stress Amlodipine, Perfusion Carbamazepine, This is a Folic Acid, normal stress Multivitamin, perfusion
study. Pravastatin, Wall Motion propranolol, The patient's Protonix, ejection Seroquel, Uloric fraction was , Listerol, calculated at Synthroid 78%. Normal
global and Allergies: regional wall Levaquin, Cipro, motion in all Steroids, territories. Neurontin. LV/RV Size

The left Consent ventricle size
is normal. The This patient has right ventricle been consented size is normal. for this Study procedure. Quality

Overall image Procedure quality for
this study is The patient was Good. Rest injected with images are of 10.70mCi Tc99m Good quality. Sestamibi IV at Stress images rest. Injected are of Good
quality. by . Injection site: Right shoulder. Stress Protocol: Lexiscan. The
__ patient was [place] injected with Physician: 30.80mCi Tc99m Rodolfo Kothari IV at 11/26/2019 stress. Injected 04:39 PM
Ordering at: 0:35 at Physician: start of stage. Von Plaza Injected by . Referring The Lemuel Physician: protocol was Von Plaza
Performed By: completed. Ramirez, Injection site: MD Donovan Right shoulder. Lexiscan stress with isotope.
Lexiscan 0.4 mg was given iv over 10 seconds followed by saline flush.
Stress dose of radiotracer was injected iv 30 seconds later.

Rest ECG
Normal sinus rhythm 65 bpm. T wave inversions in lead III.

Stress ECG
At peak stress ECG showed No ST-T wave changes from baseline. At peak
stress the rhythm showedNo significant changes from baseline.

Rest Perfusion
This is a normal rest perfusion study.

Stress Perfusion
This is a normal stress perfusion study.

Wall Motion
The patient's ejection fraction was calculated at 78%. Normal global and
regional wall motion in all territories.

LV/RV Size
The left ventricle size is normal. The right ventricle size is normal.

Study Quality
Overall image quality for this study is Good. Rest images are of Good
quality. Stress images are of Good quality.

< br/>
[place] Physician:
Bernie Acosta MD 11/26/2019 04:39 PM
Ordering Physician: Von Plaza
Referring Physician: Von Plaza
Performed By: Donovan Ramirez MD

</td> Echo 2D [id number] [facility] <td> 11/23/2019 [facility] M[facility]Mode [id number] 12:27</td><td> [facility] [id number] Echo 2D M-[facility] Health Care (TTE) Non-Invasive Complete (TTE) [facility] Cardiology </td><td> Laboratory [id number] Advanced
[facility] Physician
Services, [id number] [address]
BETTY Snowden [phone] Phone [phone]

[phone] Fax Non-Invasive
Adult Cardiology Echocardiogram
Report Name: Laboratory LILO SCHMITZE
Advanced Study Date:
11/23/2019 Physician 12:27 PM : Services, 1945
[address] Gender:
Female Age: [place], [place] 74 yrs
[id number] Height: 62
in Account Phone [phone] Number:
[phone] Fax
Weight: 152 lb BSA: 1.7 m2
Patient Adult Location: 5SE Echocardiogram Reason For Report Study: SYNCOPE
Name: & COLLAPSE OSIEL SCHMITZEN AH Ordering Physician: SANDRA Study Date: BRYANNA-IN 11/23/2019 12:27 Performed By: Leydi Henriquez
Interpretation
: Summary Study 1945 was technical limited due to Gender: patient Female refusing the
Age: test. The 74 yrs left ventricle is normal in Height: 62 in size. There
is normal left Account ventricular Number: [id number] wall thickness. The overall Weight: 152 lb left
ventricular BSA: 1.7 m2 ejection
fraction Patient appears normal. Location: 5SE Regional wall
motion Reason For abnormalities Study: SYNCOPE & cannot be COLLAPSE excluded due to

limited Ordering visualization. Physician: Roque FLORES mitral BRYANNA-IN valve
regurgitation. Performed By: Pulmonary Dago, Leydi artery systolic pressure is

unable to be Interpretation estimated based Summary on the
acquired Study was images. technical ICD-10 limited due to Syncope and patient refusing collapse - R55. the test. Procedure
Limited 2D The left transthoracic ventricle is echo was normal in size. performed with
color flow. There is Study quality normal left is fair. ventricular wall Limited views thickness. were obtained.
Study was The overall left technical ventricular limited due to ejection patient fraction appears refusing the normal. test. No apical
windows. No Regional wall subcostal motion windows. abnormalities Left Ventricle cannot be The left excluded due to ventricle is limited normal in size.
There is normal visualization. left
ventricular Trivial mitral wall valve thickness. The regurgitation. overall left
ventricular Pulmonary ejection artery systolic fraction pressure is appears normal. unable to be Regional wall estimated based motion on the abnormalities
cannot be acquired images. excluded due to limited

visualization. ICD-10 Right
Ventricle The Syncope and right ventricle collapse - R55. is not well visualized.

Left Atrium Procedure Normal left
atrial size. Limited 2D Right Atrium transthoracic The right echo was atrium is not performed with visualized. color flow. Aortic Valve Study quality There is mild
aortic valve is fair. calcification. Limited views Spectral were obtained. Doppler not Study was performed. No technical significant limited due to aortic
regurgitation. patient Mitral refusing the Valve test. No apical Moderate mitral windows. No annular subcostal calcification. windows. Spectral

Doppler not Left Ventricle performed.
Trivial mitral The left valve ventricle is regurgitation. normal in size. Tricuspid There is normal Valve The left ventricular tricuspid valve wall is not
visualized. thickness. The Pulmonic overall left Valve The ventricular pulmonic valve ejection is not fraction appears visualized. normal. Aorta The
aortic root is Regional wall normal in size. motion Pulmonary abnormalities Artery cannot be Pulmonary excluded due to artery systolic limited pressure is
unable to be visualization. estimated based on the

acquired Right images. Ventricle Venous The
inferior vena The right cava is not ventricle is not visualized. well visualized. Pericardium There is no

obvious Left Atrium pericardial
effusion. Normal left MMode/2D atrial size. Measurements & Calculations

IVSd: 1.0 cm Right Atrium LVIDd:
4.8 cm LV The right atrium mass(C)d: 171.4 is not grams LVIDs: visualized. 2.8 cm LV

mass(C)dI: Aortic Valve 101.0 grams/m2
LVPWd: 1.00 cm There is mild aortic valve calcification. Spectral Doppler not performed. _ Ao root
diam: 2.6 cm No significant LA dimension: aortic 3.9 cm regurgitation.

Mitral Valve
Moderate mitral _ annular Reading calcification. Physician: Spectral Doppler Clive Chance, not performed. 11/23/2019
01:04 PM Trivial mitral valve regurgitation.

Tricuspid Valve
The tricuspid valve is not visualized.

Pulmonic Valve
The pulmonic valve is not visualized.

Aorta
The aortic root is normal in size.

Pulmonary Artery
Pulmonary artery systolic pressure is unable to be estimated based on the
acquired images.

Venous
The inferior vena cava is not visualized.

Pericardium
There is no obvious pericardial effusion.

MMode/2D Measurements & Calculations
IVSd: 1.0 cm LVIDd: 4.8 cm LV mass(C)d: 171.4 grams
LVIDs: 2.8 cm LV mass(C)dI: 101.0 grams/m2
LVPWd: 1.00 cm

Ao root diam: 2.6 cm
LA dimension: 3.9 cm

< br/>
Reading Physician:
Clive Chance MD 11/23/2019 01:04 PM

</td> ID Date Data Source [id number] 11/22/2019 09:44:00 PM EDT [facility] [id number] KeyOwner Name Value Range Interpretation Description Data Sup porting Code Source(s) Document(s ) Chest (PACSIMAGE <td> 11/22/2019 [place] Portable 21:06</td><td> [facility] ) Final Chest Portable Health Care Result </td><td><SpecialtyCare Name: jailene NúñezCode="Italic TRAUMA MRN: s">(PACSIMAGE [id number] Sex: F : )</paragraph><br/ 09/26/1965 >
Final Location: F Result Admitting

Physician: Name: BESS, EMERGENCY TRAUMA SERVICE
MRN: Requesting [id number] Sex: F Physician:
TEDDY MERAZ : 09/26/1965 Exam: Location: F CHEST PORTABLE
11/22/2019 Admitting 21:17 Physician: HISTORY: Fall EMERGENCY SERVICE
COMPARISON: Requesting None Physician: available.0 TEDDY MERAZ PROCEDURE: Portable AP

radiograph Exam: CHEST FINDINGS: PORTABLE LIFE SUPPORT 11/22/2019 21:17 and MONITORING DEVICES: There

is an HISTORY: Fall implanted cardiac loop

recorder over COMPARISON: None the lung base. available.0 Vascular stent

overlies the PROCEDURE: right axilla. Portable AP Left axillary radiograph surgical

clips. LUNGS FINDINGS: and PLEURA:

Pulmonary LIFE SUPPORT and edema pattern. MONITORING No DEVICES: There is pneumothorax. an implanted The cardiac costophrenic
loop angles are recorder over the sharp. HEART lung base. and Vascular stent MEDIASTINUM: overlies the Cardiomegaly.
Midline right axilla. abdominal Left axillary surgical surgical clips. yury.
IMPRESSION: LUNGS and Cardiomegaly PLEURA: Pulmonary with pulmonary edema pattern. No edema pattern. pneumothorax. The
Resident costophrenic Radiologist: angles are sharp. Mart Petersen MD
Resident HEART and Radiologist MEDIASTINUM: Attending Cardiomegaly. Radiologist:

Satnam Wayne MD abdominal Finalizing surgical yury. Radiologist: Satnam Acevedo

IMPRESSION: Transcribed
Date: Cardiomegaly with 11/22/2019 pulmonary edema 21:27 pattern. Finalized Date:

<b 11/22/2019 r/> Resident 21:54 Radiologist: Mart Petersen MD Resident Radiologist
Attending Radiologist: Satnam Acevedo MD
Finalizing Radiologist: Satnam Acevedo MD
Transcribed Date: 11/22/2019 21:27
Finalized Date: 11/22/2019 21:54

</td> Chest/Abd (PACSIMAGE <td> 11/22/2019 [place] /Pelvis 21:44</td><td> [place] W/Out ) Final Chest/Abd/Pelvis Health Ut re Cont-CT Result W/Out Cont-CT Corporation Name: NOVEMBER, </td><td><nabeel BONNER styleCode="Italic Sex: F : s">(PACSIMAGE 1945 Location: F )</paragraph><br/ Admitting >
Final Physician: Result EMERGENCY

SERVICE Name: NOVEMBERLALITHA Requesting HA Physician:
MRN: SONA JORDAN [id number] Sex: F Exam: CT
THORAX/ABD/PEL : 1945 C- 11/22/2019 Location: F 21:46
INDICATION: Admitting Trauma. Physician: TECHNIQUE: EMERGENCY SERVICE Noncontrast CT
of the chest, Requesting abdomen and Physician: SONA pelvis was NIKKI performed.

Oral contrast Exam: CT was not THORAX/ABD/PEL C- administered. 11/22/2019 21:46 COMPARISON:

None.. INDICATION: FINDINGS: Trauma. Evaluation for

acute TECHNIQUE: thoracoabdomin Noncontrast CT of al injury is the chest, limited abdomen and without pelvis was intravenous
contrast. performed. Oral TUBES AND contrast was not LINES: administered. Vascular stent in the right

axilla, COMPARISON: incompletely None.. assessed

without FINDINGS: intravenous
contrast. Left Evaluation for upper acute extremity thoracoabdominal bypass injury is limited graft, also without incompletely
assessed. intravenous AIRWAYS, contrast. LUNGS, and

PLEURA: Mosaic TUBES AND LINES: attenuation Vascular stent in the lung the right axilla, parenchyma incompletely and septal
thickening assessed without which may be intravenous related to contrast. Left pulmonary upper extremity edema. bypass Scattered
graft, atelectasis. also incompletely Patchy opacity assessed. at the left

lung base AIRWAYS, LUNGS, concerning and PLEURA: for Mosaic superimposed attenuation the pneumonia. lung parenchyma Bilateral
segmental/subs and septal egmental thickening which bronchial may be related to effacement. No pulmonary edema. pneumothorax
or pleural Scattered effusion. atelectasis. HEART, Patchy opacity at VESSELS, and the left lung MEDIASTINUM: base concerning Cardiomegaly.
Severe for superimposed coronary pneumonia. artery Bilateral atheroscleroti segmental/subsegm c ental calcifications
. There is bronchial extensive effacement. No mitral pneumothorax or annular pleural effusion. calcification. LIVER:

Within normal HEART, VESSELS, limits. and MEDIASTINUM: BILIARY Cardiomegaly. SYSTEM: Poorly Severe coronary evaluated.
GALLBLADDER: artery Trace atherosclerotic hyperdense calcifications. material There is dependently extensive mitral within the
gallbladder, annular likely calcification. layering sludge.

Gallbladder is LIVER: Within distended.. normal limits. PANCREAS:
There is BILIARY SYSTEM: extensive Poorly evaluated. fatty atrophy
of the GALLBLADDER: pancreas. Trace hyperdense SPLEEN: Within material normal limits. dependently ADRENALS: within the Within normal
limits. gallbladder, KIDNEYS/URETER likely layering S: The kidneys sludge. are atrophic, Gallbladder is with medullary distended.. versus

vascular PANCREAS: There calcifications is extensive . fatty atrophy of BOWEL/MESENTER the pancreas. Y: Status post
gastric SPLEEN: Within bypass. No normal limits. evidence of
bowel ADRENALS: Within obstruction. normal limits. Colonic diverticulosis

, without KIDNEYS/URETERS: evidence of The kidneys are acute atrophic, with diverticulitis medullary versus . URINARY
BLADDER: vascular Urinary calcifications. bladder is under

distended, BOWEL/MESENTERY: limiting Status post evaluation. gastric bypass. REPRODUCTIVE No evidence of ORGANS: Poorly bowel evaluated.
PERITONEUM/RE obstruction. TROPERITONEUM: Colonic No free air. diverticulosis, No free or without evidence loculated of acute fluid. LYMPH
NODES: No diverticulitis. bulky abdominal or

pelvic URINARY BLADDER: lymphadenopath Urinary bladder y. VESSELS: is under Extensive distended, calcified limiting atheroscleroti
c disease. evaluation. There is a
focus of REPRODUCTIVE calcification ORGANS: Poorly within the evaluated. abdominal

aorta that is PERITONEUM/RETRO medially PERITONEUM: No displaced, free air. No free series 201 or loculated image is 157
through 170. fluid. While this may
LYMPH be related NODES: No bulky to mural abdominal or plaque with pelvic surface lymphadenopathy. calcification,
a small VESSELS: focal Extensive dissection/int calcified ramural atherosclerotic hematoma disease. There is cannot be
excluded. A a focus of similar calcification appearance is within the seen within abdominal aorta the right that is medially common iliac
artery. displaced, Incidental series 201 image retroaortic is 157 through left renal 170. While this vein. may BONES:
be Degenerative related to mural changes of the plaque with spine, please surface see dedicated calcification, a reconstructio small ns of the
focal thoracic dissection/intram lumbar spine ural hematoma for additional cannot be findings.. excluded. A SOFT TISSUES: similar Anasarca.
Bilateral appearance is breast soft seen within the tissue right common densities iliac artery. with Incidental calcification.
retroaortic left IMPRESSION: renal vein. 1. Limited

evaluation for BONES: trauma due to Degenerative lack of changes of the intravenous spine, please see and oral dedicated contrast. 2.
Focus of reconstructions calcification of the thoracic within the lumbar spine for abdominal additional aorta that is findings.. medially

displaced. SOFT TISSUES: While this may Anasarca. be related to Bilateral breast mural plaque soft tissue with surface densities calcification,
with a small focal calcification. dissection/int ramural

hematoma IMPRESSION: cannot be
1. excluded. A Limited similar evaluation for appearance is trauma due to seen within lack of the right intravenous and common iliac
artery. 3. oral contrast. Cardiomegaly.
Mosaic 2. Focus of attenuation of calcification the lung within the parenchyma and abdominal aorta septal that is thickening
which may be medially related to displaced. While pulmonary this may be edema. Body related to mural wall edema. plaque 4. Patchy left
with lower lobe surface opacities, calcification, a which may small focal represent dissection/intram pneumonia. ural Bilateral
segmental/subs hematoma cannot egmental be excluded. A bronchial similar effacement. appearance is Follow-up to seen within resolution 4-6
weeks after the right common treatment is iliac artery. recommended.
5. Mitral 3. Cardiomegaly. valve annular Mosaic calcifications attenuation of . 6. Fatty the lung atrophy of the parenchyma and pancreas. 7.
Atrophic septal thickening kidneys. 8. which may be Right axillary related to vascular pulmonary edema. stent, Body incompletely
wall assessed edema. without
4. intravenous Patchy left lower contrast. 9. lobe opacities, Bilateral which may breast soft represent tissue pneumonia. densities with
calcifications Bilateral . Clinical segmental/subsegm correlation is ental bronchial suggested. effacement. Additionally Follow-up relation with
to any available resolution 4-6 prior weeks after mammograms may treatment is be helpful. recommended. Case
discussed with 5. Mitral valve Dr. Ag annular at 11:37 PM on calcifications. 11/22/2019.
6. Fatty atrophy Resident of the pancreas. Radiologist:
Mart Petersen MD 7. Atrophic Resident kidneys. Radiologist
8. Attending Right axillary Radiologist: vascular stentSatnam MD assessed without Finalizing
Radiologist: intravenous Satnam Acevedo contrast.
9. Transcribed Bilateral breast Date: soft tissue 11/22/2019 densities with 22:51 calcifications. Finalized
Date: Clinical 11/22/2019 correlation is 23:37 suggested. Additionally relation with
any available prior mammograms may be helpful.

Case discussed with Dr. Ag at 11:37 PM on 11/22/2019.

<b r/>

Resident Radiologist: Mart Petersen MD Resident Radiologist
Attending Radiologist: Satnam Acevedo MD
Finalizing Radiologist: Satnam Acevedo MD
Transcribed Date: 11/22/2019 22:51
Finalized Date: 11/22/2019 23:37

</td> Cervical (PACSIMAGE <td> 11/22/2019 [place] Spine 21:44</td><td> [facility] W/Out ) Final Cervical Spine Health Care Contrast- Result W/Out Contrast-[employer] CT Name: </td><td><paragr OVERBROOK, aph TRAUMA MRN: styleCode="Italic [id number] Sex: F s">(PACSIMAGE : 09/26/1965 )</paragraph><br/ Location: F >
Final Admitting Result Physician:

EMERGENCY Name: [place], SERVICE TRAUMA Requesting
MRN: Physician: [id number] Sex: F SONA JORDAN
Exam: CT : 09/26/1965 C SPINE C- Location: F 11/22/2019
21:40 Admitting HISTORY: Physician: HISTORY: EMERGENCY SERVICE Trauma
TECHNIQUE: A Requesting noncontrast Physician: SONA multidetector NIKKI spiral CT

examination Exam: CT C SPINE of the C- 11/22/2019 cervical spine 21:40 was performed,

followed by HISTORY: multiple 2D HISTORY: Trauma sagittal and coronal

reconstruction TECHNIQUE: A s. noncontrast COMPARISON: multidetector None. spiral CT FINDINGS: examination Alignment of
of the cervical the cervical spine is spine was preserved. performed, There is followed by straightening multiple 2D of the
expected sagittal and cervical coronal lordosis with reconstructions. increased flexion at the

COMPARISON: None. cervicothoraci c junction and

extension at FINDINGS: the

craniocervical Alignment of the junction, cervical spine is which may be preserved. There positional. is straightening There is no
evidence of of the expected acute cervical lordosis fracture or with increased subluxation to flexion at the the visualized
cervical cervicothoracic spine. junction and Multilevel extension at the degenerative craniocervical changes. There
is no evidence junction, which of significant may be bony spinal positional. There canal or is no evidence of foraminal acute stenosis. The
prevertebral fracture or soft tissues subluxation to are the visualized unremarkable. cervical spine. Within the Multilevel visualized
lung apices, degenerative there is changes. There is groundglass no evidence of opacity and significant bony intralobular
septal spinal canal or thickening. foraminal stenosis. The IMPRESSION: prevertebral soft No evidence of tissues acute fracture
are or traumatic unremarkable. subluxation to Within the the visualized lung visualized apices, there is cervical
spine. groundglass Resident opacity and Radiologist: intralobular Mart Petersen MD septal Resident thickening. Radiologist Attending

Radiologist: IMPRESSION: Papi Foster
No evidence of Finalizing acute fracture or Radiologist: traumatic Papi Foster subluxation to MD the Transcribed
Date: visualized 11/22/2019 cervical spine. 21:40 Finalized

<b Date: r/>
11/22/2019 Resident 22:14 Radiologist: Mart Petersen MD Resident Radiologist
Attending Radiologist: Papi Foster MD
Finalizing Radiologist: Papi Foster MD
Transcribed Date: 11/22/2019 21:40
Finalized Date: 11/22/2019 22:14

</td> CT T (PACSIMAGE <td> 11/22/2019 [place] Spine 2D 21:44</td><td> CT [facility] ) Final T Spine 2D [facility] Health Ut re Result </td><td><[facility] Name: BESS, styleCode="Italic TRAUMA MRN: s">(PACSIMAGE [id number] Sex: F : )</paragraph><br/ 09/26/1965 >
Final Location: F Result Admitting

Physician: Name: BESS EMERGENCY TRAUMA SERVICE
MRN: Requesting [id number] Sex: F Physician:
SONA JORDAN : 09/26/1965 Exam: CT Location: F T SPINE 2D
RECON Admitting 11/22/2019 Physician: 21:50 EMERGENCY SERVICE CLINICAL
INDICATION: Requesting Trauma Physician: SONA TECHNIQUE: ELZANITanya Axial,

sagittal and Exam: CT T SPINE coronal 2D RECON reconstruction 11/22/2019 21:50 images of the thoracic

spine were CLINICAL generated from INDICATION: source images Trauma of a CT

thorax/abdomen TECHNIQUE: Axial, /pelvis. These sagittal and reconstruction coronal images are reconstruction submitted images for
of the interpretation thoracic spine . were generated COMPARISON: from source None. images of a FINDINGS:
CT Alignment of thorax/abdomen/pe the thoracic lvis. These spine is reconstruction preserved. images are There is submitted exaggeration
for of the interpretation. thoracic kyphosis.

Multilevel COMPARISON: None. degenerative changes are

present, FINDINGS: incompletely

assessed on Alignment of the current thoracic spine is examination. preserved. There There is is exaggeration extensive
anterior of the thoracic bridging kyphosis. osteophytosis, Multilevel spanning the degenerative entirety of changes are the thoracic
spine, present, particularly incompletely along the assessed on right anterior current aspect. examination. There a small There lucent lesion
is is noted in extensive T7, anterior bridging nonspecific. osteophytosis, Is no spanning the significant entirety bony spinal
of canal or the thoracic neural spine, foraminal particularly stenosis. along the right Please see anterior dedicated CT
scan of the aspect. There a chest for small lucent intrathoracic lesion is noted findings.. in T7, IMPRESSION: nonspecific. 1. No
evidence of Is no significant acute fracture bony spinal canal or traumatic or neural malalignment foraminal to the stenosis. visualized
thoracic Please see spine. 2. dedicated CT scan Multilevel of the chest for degenerative intrathoracic changes. findings.. Resident

Radiologist: IMPRESSION: Mart Petersen MD

Resident 1. No evidence Radiologist of acute fracture Attending or traumatic Radiologist: malalignment to Papi Foster
the visualized Finalizing thoracic spine. Radiologist:
Papi Foster 2. Multilevel MD degenerative Transcribed changes. Date: 11/22/2019

<b 22:22 r/> Resident Finalized Radiologist: Date: Mart Petersen MD 11/22/2019 Resident 22:32 Radiologist
Attending Radiologist: Papi Foster MD
Finalizing Radiologist: Papi Foster MD
Transcribed Date: 11/22/2019 22:22
Finalized Date: 11/22/2019 22:32

</td> CT LS (PACSIMAGE <td> 11/22/2019 [place] Spine 2D 21:44</td><td> CT [facility] ) Final LS Spine 2D [facility] are Result </td><td>[employer] Name: sherin BESSjaileneCode="Italic TRAUMA MRN: s">(PACSIMAGE [id number] Sex: F : )</paragraph><br/ 09/26/1965 >
Final Location: F Result Admitting

Physician: Name: BESS EMERGENCY TRAUMA SERVICE
MRN: Requesting [id number] Sex: F Physician:
SONA JORDAN : 09/26/1965 Exam: CT Location: F LS SPINE 2D
RECON Admitting 11/22/2019 Physician: 21:55 EMERGENCY SERVICE CLINICAL
INDICATION: Requesting Trauma Physician: SONA TECHNIQUE: NIKKI Axial,

sagittal and Exam: CT LS SPINE coronal 2D RECON reconstruction 11/22/2019 21:55 images of the lumbar

spine were CLINICAL generated from INDICATION: source images Trauma of a CT

thorax/abdomen TECHNIQUE: Axial, /pelvis. These sagittal and reconstruction coronal images are reconstruction submitted images for
of the interpretation lumbar spine were . generated from COMPARISON: source images of None. a CT FINDINGS:
Alignment and thorax/abdomen/pe curvature of lvis. These the reconstruction lumbosacral images are spine is submitted unremarkable.
for There is no interpretation. evidence of acute fracture

or subluxation COMPARISON: None. to the visualized

lumbosacral FINDINGS: spine. A

Schmorl's node Alignment and is noted in curvature of the the superior lumbosacral spine endplate of is unremarkable. L1. Multilevel
degenerative There is no changes are evidence of acute present, fracture or incompletely subluxation to assessed on the current exam.
There is no visualized significant lumbosacral bony spinal spine. A canal . Please Schmorl's node is see dedicated noted in the CT scan of the
abdomen and superior endplate pelvis for of L1. Multilevel soft tissue degenerative findings. changes are IMPRESSION:
1. No present, evidence of incompletely acute fracture assessed on or traumatic current exam. malalignment There is no to the significant visualized
lumbosacral bony spinal canal spine. 2. . Please see Please see dedicated CT scan dedicated CT of the abdomen scan of the
abdomen and and pelvis for pelvis for soft tissue soft tissue findings. findings.

IMPRESSION: Resident

Radiologist: 1. No evidence Mart Petersen MD of acute fracture Resident or traumatic Radiologist malalignment to Attending
Radiologist: the visualized Papi Foster lumbosacral spine. Finalizing
2. Radiologist: Please see Papi Foster dedicated CT scan MD of the abdomen Transcribed and pelvis for Date:
11/22/2019 soft tissue 22:31 findings. Finalized Date:

<b 11/22/2019 r/>
22:33 Resident Radiologist: Mart Petersen MD Resident Radiologist
Attending Radiologist: Papi Foster MD
Finalizing Radiologist: Papi Foster MD
Transcribed Date: 11/22/2019 22:31
Finalized Date: 11/22/2019 22:33

</td> Head (PACSIMAGE <td> 11/22/2019 [facility] 21:41</td><td> [place] Contrast- ) Final Head Without Health Care CT Result Contrast-CT [employer] Name: </td><td><paragra OVERJEROMY, ph TRAUMA MRN: styleCode="Italic [id number] Sex: F s">(PACSIMAGE : 09/26/1965 )</paragraph><br/ Location: F >
Final Admitting Result Physician:

EMERGENCY Name: [place], [facility] TRAUMA Requesting
MRN: Physician: [id number] Sex: F SONA JORDAN
Exam: CT : 09/26/1965 HEAD C- Location: F 11/22/2019
21:41 Admitting CLINICAL Physician: INDICATION: EMERGENCY SERVICE Trauma
TECHNIQUE: CT Requesting images of the Physician: SONA head were NIKKI obtained

without the Exam: CT HEAD C- administration 11/22/2019 21:41 of contrast.

COMPARISON: CLINICAL None. INDICATION: FINDINGS: Trauma Ventricular

caliber is TECHNIQUE: CT within normal images of the limits for the head were patients obtained without age. There the is no administration intracranial
mass or mass of contrast. effect.

Density of the COMPARISON: cerebral white None. matter is

decreased FINDINGS: compatible

with mild Ventricular microangiopath caliber is within ic change. normal limits for Encephalomalac the patients ia and gliosis
involving age. the right
There paramedian is no parieto-occipi intracranial mass heaven lobes, in or mass effect. a right
posterior Density of the cerebral cerebral white artery matter is territory decreased distribution, compatible compatible
with prior with mild infarction. microangiopathic No acute change. intraparenchym Encephalomalacia al or and gliosis subarachnoid
hemorrhage is involving the present. right paramedian There is no parieto-occipital extraaxial lobes, in a collection.
The right posterior visualized cerebral artery paranasal territory sinuses are distribution, well aerated. compatible Right-sided
mastoid air with prior cell effusion infarction. is present.
No Status post acute right orbital intraparenchymal vitrectomy or subarachnoid with hemorrhage is intraorbital present. silicone
There augmentation. is no extraaxial There is no collection. calvarial

fracture. The visualized IMPRESSION: paranasal sinuses 1. No acute are well aerated. intracranial
hemorrhage, Right-sided mass effect or mastoid air cell shift of the effusion is midline present. structures.
2. 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
Radiologist: augmentation. Mart Petersen MD
Resident There is no Radiologist calvarial Attending fracture. Radiologist: Papi Foster

IMPRESSION: Finalizing
Radiologist: 1. No acute Papi Foster intracranial hemorrhage, mass Transcribed effect or shift Date: of 11/22/2019
the 21:59 midline Finalized structures. Date:
2. 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

<b r/>
Resident Radiologist: Mart Petersen MD Resident Radiologist
Attending Radiologist: Papi Foster MD
Finalizing Radiologist: Papi Foster MD
Transcribed Date: 11/22/2019 21:59
Finalized Date: 11/22/2019 22:11

</td> Hand Left (PACSIMAGE <td> 11/24/2019 [place] 2Vw 12:03</td><td> [facility] ) Final Hand Left 2Vw Health Care Result </td><td>[employer] Name: November, LILO MRN: styleCode="Italic [id number] Sex: F s">(PACSIMAGE : 1945 )</paragraph><br/ Location: F >
Final Admitting Result Physician:

MOOKIE Name: LILO CSHMITZ Requesting
Physician: VON PLAZA Sex: F Exam: HAND
: LEFT 2VW 1945 11/24/2019 Location: F 12:22
CLINICAL Admitting INDICATION: Physician: MOOKIE Syncope. Pain BAM left pinky.
COMPARISON: Requesting None. Physician: VON TECHNIQUE: BAMSHAD Frontal and

lateral Exam: HAND LEFT portable views 2VW 11/24/2019 of the left 12:22 handd

INTERPRETATION CLINICAL : There is INDICATION: diffuse Syncope. Pain osteopenia. left pinky. There is joint

space COMPARISON: narrowing and None. small

periarticular TECHNIQUE: osteophytes at Frontal and the first lateral portable carpometacarpa views of the left l joint as handd well as the

proximal and INTERPRETATION: distal There is diffuse interphalangea osteopenia. There l joints is joint space there is no
fracture or narrowing and dislocation. small IMPRESSION: periarticular No fracture. osteophytes at Osteoarthritis the first . carpometacarpal
Resident joint as well as Radiologist: the proximal and Attending distal Radiologist: interphalangeal Farnaz stewart MD
there Finalizing is no fracture or Radiologist: dislocation. Farnaz Ascencio

IMPRESSION: No Transcribed fracture. Date: Osteoarthritis. 11/24/2019 12:35

<b Finalized r/>

<br/ Date: > Resident 11/24/2019 Radiologist: 12:36
Attending Radiologist: Farnaz Ascencio MD
Finalizing Radiologist: Farnaz Ascencio MD
Transcribed Date: 11/24/2019 12:35
Finalized Date: 11/24/2019 12:36

</td> ID Date Data Source [id number] 11/22/2019 09:03:00 PM EDT [facility] [id number] [employer] Name Value Range Interpretation Description Data Sup porting Code Source(s) Document(s ) Antibody NEG <td> [place] Screen 11/22/2019 [facility] 21:03</td><td> Care Antibody [employer] Screen </td><td> NEG
</td> ABO O POS <td> [place] Verification 11/23/2019 [facility] 07:53</td><td> Care ABO [employer] Verification </td><td> O POS
</td> ABO-Rh Type O POS <td> [place] 11/22/2019 [facility] 21:03</td><td> Care ABO-Rh Type Corporation </td><td> O POS
</td> Specimen 11/25/19 <td> [place] expiration date 20 23:59 11/22/2019 [facility] of Blood 21:03</td><td> Care Specimen [employer] Expiration Date </td><td> 11/25/2019 23:59
</td> ID Date Data Source [id number] 09/14/2019 06:58:[address] [facility] TEST PERFORMED BY [employer]ENS[facility] CHEMILUMINESCENCE METHOD. Name Value Range Interpretation Description Data Sup porting Code Source(s) Document(s ) Troponin 0.12 [place] I.cardiac ng/mL Hospital [Mass/volume ] in Serum or Plasma ID Date Data Source [id number] 09/14/2019 06:58:[address] [facility] Name Value Range Interpretation Description Data Sup porting Code Source(s) Document(s ) Phosphate 9.0 mg/dL [place] [Mass/volume] Hospital in Serum or Plasma ID Date Data Source [id number] 09/14/2019 06:58:00 AM EST [facility] Name Value Range Interpretation Description Data Sup porting Code Source(s) Document(s ) Monocytes 0.49 [place] [#/volume] in 10*3/uL Hospital Blood by Automated count ID Date Data Source [id number] 09/14/2019 06:58:00 AM EST [facility] Value Range Interpretation Description Data Sup porting Code Source(s) Document(s ) Lymphocytes 1.10 [place] [#/volume] in 10*3/uL [facility] Blood by Automated count ID Date Data Source [id number] 09/14/2019 06:58:00 AM EST [facility] Value Range Interpretation Description Data Sup porting Code Source(s) Document(s ) Neutrophils 2.24 [place] [#/volume] in 10*3/uL [facility] Blood by Automated count ID Date Data Source [id number] 09/14/2019 06:58:00 AM [facility] Value Range Interpretation Description Data Sup porting Code Source(s) Document(s ) Nucleated 0.5 % [place] erythrocytes/10 Hospital 0 leukocytes [Ratio] in Blood by Automated count ID Date Data Source [id number] 09/14/2019 06:58:00 AM [facility] Value Range Interpretation Description Data Sup porting Code Source(s) Document(s ) Immature 0.2 % [place] granulocytes/10 Hospital 0 leukocytes in Blood by Automated count ID Date Data Source [id number] 09/14/2019 06:58:00 AM [facility] Value Range Interpretation Description Data Sup porting Code Source(s) Document(s ) Basophils/100 0.7 % [place] leukocytes in Hospital Blood by Automated count ID Date Data Source [id number] 09/14/2019 06:58:[address] [facility] Name Value Range Interpretation Description Data Sup porting Code Source(s) Document(s ) Eosinophils/100 7.6 % [place] leukocytes in Hospital Blood by Automated count ID Date Data Source [id number] 09/14/2019 06:58:[address] [facility] Name Value Range Interpretation Description Data Sup porting Code Source(s) Document(s ) Monocytes/100 11.7 % [place] leukocytes in Hospital Blood by Automated count ID Date Data Source [id number] 09/14/2019 06:58:[address] [facility] Name Value Range Interpretation Description Data Sup porting Code Source(s) Document(s ) Lymphocytes/10 26.3 % [place] 0 leukocytes Hospital in Blood by Automated count ID Date Data Source [id number] 09/14/2019 06:58:[address] [facility] Name Value Range Interpretation Description Data Sup porting Code Source(s) Document(s ) Neutrophils/10 53.5 % [place] 0 leukocytes Hospital in Blood by Automated count ID Date Data Source [id number] 09/14/2019 06:58:[address] [facility] PLATELET COUNT INVALID DUE TO FIBRIN AND PLATELET CLUMPS NOTED ON SMEAR. Name Value Range Interpretation Description Data Sup porting Code Source(s) Document(s ) Platelets 10*3/uL [place] [#/volume] in Hospital Blood by Automated count ID Date Data Source [id number] 09/14/2019 06:58:[address] [facility] Name Value Range Interpretation Description Data Sup porting Code Source(s) Document(s ) Erythrocyte 15.7 % [place] distribution Hospital width [Ratio] by Automated count ID Date Data Source [id number] 09/14/2019 06:58:[address] [facility] Name Value Range Interpretation Description Data Sup porting Code Source(s) Document(s ) Erythrocyte mean 31.1 [place] corpuscular g/dL Hospital hemoglobin concentration [Mass/volume] by Automated count ID Date Data Source [id number] 09/14/2019 06:58:00 AM [facility] Value Range Interpretation Description Data Sup porting Code Source(s) Document(s ) [facility] [Entitic mass] by Automated count ID Date Data Source [id number] 09/14/2019 06:58:00 AM [facility] Value Range Interpretation Description Data Sup porting Code Source(s) Document(s ) Erythrocyte 104.6 fL [facility] Hospital corpuscular volume [Entitic volume] by Automated count ID Date Data Source [id number] 09/14/2019 06:58:00 AM [facility] Value Range Interpretation Description Data Sup porting Code Source(s) Document(s ) Hematocrit 29.3 % [place] [Volume Hospital Fraction] of Blood by Automated count ID Date Data Source [id number] 09/14/2019 06:58:00 AM [facility] Value Range Interpretation Description Data Sup porting Code Source(s) Document(s ) Hemoglobin 9.1 g/dL [place] [Mass/volume] Hospital in Blood ID Date Data Source [id number] 09/14/2019 06:58:00 AM [facility] Value Range Interpretation Description Data Sup porting Code Source(s) Document(s ) Erythrocytes 2.80 [place] [#/volume] in 10*6/uL Hospital Blood by Automated count ID Date Data Source [id number] 09/14/2019 06:58:00 AM [facility] Value Range Interpretation Description Data Sup porting Code Source(s) Document(s ) Leukocytes 4.2 [place] [#/volume] in 10*3/uL Hospital Blood by Automated count ID Date Data Source [id number] 09/14/2019 06:58:00 AM EST [facility] Name Value Range Interpretation Description Data Sup porting Code Source(s) Document(s ) Magnesium 2.1 mg/dL [place] [Mass/volume] Hospital in Serum or Plasma ID Date Data Source [id number] 09/14/2019 06:58:00 AM EST [facility] Name Value Range Interpretation Description Data Sup porting Code Source(s) Document(s ) Calcium 6.9 mg/dL [place] [Mass/volume Hospital ] in Serum or Plasma ID Date Data Source [id number] 09/14/2019 06:58:00 AM [facility] Value Range Interpretation Code Description Data Sharon rce(s) Supporting Document(s ) Urea 8.9 [place] nitrogen/Cre Hospital atinine [Mass Ratio] in Serum or Plasma ID Date Data Source [id number] 09/14/2019 06:58:[address] [facility] Name Value Range Interpretation Description Data Sup porting Code Source(s) Document(s ) Creatinine 5.5 mg/dL [place] [Mass/volume] Hospital in Serum or Plasma ID Date Data Source [id number] 09/14/2019 06:58:[address] [facility] Name Value Range Interpretation Description Data Sup porting Code Source(s) Document(s ) Urea 49 mg/dL [place] nitrogen Hospital [Mass/volume ] in Serum or Plasma ID Date Data Source [id number] 09/14/2019 06:58:[address] [facility] Name Value Range Interpretation Code Description Data Sharon rce(s) Supporting Document(s ) Anion gap in 19 [place] Serum or Hospital Plasma ID Date Data Source [id number] 09/14/2019 06:58:00 AM EST [facility] [facility] Name Value Range Interpretation Description Data Sup porting Code Source(s) Document(s ) Carbon 21 mmol/L [place] dioxide, Hospital total [Moles/volu me] in Serum or Plasma ID Date Data Source [id number] 09/14/2019 06:58:00 AM EST [facility] Name Value Range Interpretation Description Data Sup porting Code Source(s) Document(s ) Chloride 104 [place] [Moles/volum mmol/L Hospital e] in Serum or Plasma ID Date Data Source [id number] 09/14/2019 06:58:00 AM EST [facility] [facility] MODERATE HEMOLYSIS Name Value Range Interpretation Description Data Sup porting Code Source(s) Document(s ) Potassium 5.2 [place] [Moles/volume mmol/L Hospital ] in Serum or Plasma ID Date Data Source [id number] 09/14/2019 06:58:00 AM EST [facility] [facility] Name Value Range Interpretation Description Data Sup porting Code Source(s) Document(s ) Sodium 139 mmol/L [place] [Moles/volu Hospital me] in Serum or Plasma ID Date Data Source [id number] 09/14/2019 06:58:00 AM EST [facility] Name Value Range Interpretation Description Data Sup porting Code Source(s) Document(s ) Glucose 94 mg/dL [place] [Mass/volume Hospital ] in Serum or Plasma ID Date Data Source [id number] 09/14/2019 06:58:00 AM EST [facility] Name Value Range Interpretation Code Description Data Supporting Source(s) Document(s ) NUCLEATED RBCS 0.5 % [place] (AUTO Hospital DIFF%)DIS ID Date Data Source [id number] 09/14/2019 06:58:00 AM [facility] Value Range Interpretation Description Data Sup porting Code Source(s) Document(s ) Differential AUTOMATED [place] cell count [facility] method - Blood ID Date Data Source [id number] 09/14/2019 06:58:00 AM [facility] Value Range Interpretation Description Data Sup porting Code Source(s) Document(s ) Immature 0.01 [place] granulocytes 10*3/uL Hospital [#/volume] in Blood by Automated count ID Date Data Source [id number] 09/14/2019 06:58:00 AM [facility] Value Range Interpretation Description Data Sup porting Code Source(s) Document(s ) Basophils 0.03 [place] [#/volume] in 10*3/uL [facility] Blood by Automated count ID Date Data Source [id number] 09/14/2019 06:58:00 AM [facility] Value Range Interpretation Description Data Sup porting Code Source(s) Document(s ) Eosinophils 0.32 [place] [#/volume] in 10*3/uL [facility] Blood by Automated count ID Date Data Source [id number] 09/14/2019 12:06:00 AM [facility] Value Range Interpretation Description Data Sup porting Code Source(s) Document(s ) Lactate 0.8 [place] [Moles/volum mmol/L Hospital e] in Serum or Plasma ID Date Data Source [id number] 09/13/2019 06:56:00 PM [facility] Value Range Interpretation Description Data Sup porting Code Source(s) Document(s ) Procalcitonin 3.1 [place] [Mass/volume] in ng/mL [facility] Serum or Plasma ID Date Data Source [id number] 09/13/2019 06:56:00 PM [facility] Value Range Interpretation Code Description Data Sharon rce(s) Supporting Document(s ) Lipase 16 U/L [place] [Enzymatic Hospital activity/vo lume] in Serum or Plasma ID Date Data Source [id number] 09/13/2019 06:56:00 PM EST [facility] Name Value Range Interpretation Description Data Sup porting Code Source(s) Document(s ) Aspartate 18 U/L [place] aminotransferase [place] [Enzymatic Hospital activity/volume] in Serum or Plasma ID Date Data Source [id number] 09/13/2019 06:56:00 PM EST [facility] Name Value Range Interpretation Description Data Sup porting Code Source(s) Document(s ) Alanine 11 U/L [place] aminotransferase [place] [Enzymatic Hospital activity/volume] in Serum or Plasma ID Date Data Source [id number] 09/13/2019 06:56:00 PM EST [facility] Name Value Range Interpretation Description Data Sup porting Code Source(s) Document(s ) Alkaline 116 U/L [place] phosphatase Hospital [Enzymatic activity/volume ] in Serum or Plasma ID Date Data Source [id number] 09/13/2019 06:56:00 PM EST [facility] Name Value Range Interpretation Description Data Sup porting Code Source(s) Document(s ) Bilirubin.t 0.2 mg/dL [facility] [Mass/volum e] in Serum or Plasma ID Date Data Source [id number] 09/13/2019 06:56:00 PM EST [facility] Name Value Range Interpretation Code Description Data Sharon rce(s) Supporting Document(s ) Albumin/Glob 1.3 [place] ulin [Mass Hospital Ratio] in Serum or Plasma ID Date Data Source [id number] 09/13/2019 06:56:00 PM EST [facility] Name Value Range Interpretation Description Data Sup porting Code Source(s) Document(s ) Albumin 4.0 g/dL [place] [Mass/volume Hospital ] in Serum or Plasma ID Date Data Source [id number] 09/13/2019 06:56:[address] [facility] Name Value Range Interpretation Description Data Sup porting Code Source(s) Document(s ) Protein 7.2 g/dL [place] [Mass/volume Hospital ] in Serum or Plasma ID Date Data Source [id number] 09/13/2019 06:56:[address] [facility] THERAPEUTIC RANGES:UNFRACTIONATED HEPARI N THERAPY: 60-90 SECONDSARGATROBAN THERAPY: 49-99 SECONDS Name Value Range Interpretation Description Data Sup porting Code Source(s) Document(s ) aPTT in 33.[address] [place] Platelet poor [facility] plasma by Coagulation assay ID Date Data Source [id number] 09/13/2019 06:56:[address] [facility] THERAPEUTIC RANGE FOR STANDARD ORALANTIC OAGULANT THERAPY: 2.0-3.0THERAPEUTIC RANGE FOR HIGH DOSE ORALANTICOAGULANT THERAPY (MECHANICAL HEARTVALVE REPLACEMENT): 2.5-3.5 Name Value Range Interpretation Description Data Sup porting Code Source(s) Document(s ) INR in Platelet 1.0 [place] poor plasma by Hospital Coagulation assay ID Date Data Source [id number] 09/13/2019 06:56:[address] [facility] Name Value Range Interpretation Description Data Sup porting Code Source(s) Document(s ) PT panel - 10.9 s [place] Platelet poor [facility] plasma by Coagulation assay ID Date Data Source [id number] 09/13/2019 06:56:[address] [facility] Name Value Range Interpretation Description Data Sup porting Code Source(s) Document(s ) Manual MANUAL [place] differential Hospital performed [Presence] in Blood ID Date Data Source [id number] 09/13/2019 06:56:00 PM EST [facility] [facility] Name Value Range Interpretation Code Description Data Sharon rce(s) Supporting Document(s ) Cells 100 [place] Counted Hospital Total [#] in Blood ID Date Data Source [id number] 09/13/2019 06:56:00 PM EST [facility] [facility] PLT ESTIMATE DECREASED Name Value Range Interpretation Description Data Sup porting Code Source(s) Document(s ) PLATELET PRESENT [place] COMMENT Hospital ID Date Data Source [id number] 09/13/2019 06:56:00 PM EST [facility] Name Value Range Interpretation Description Data Sup porting Code Source(s) Document(s ) Platelets DECREASED [place] [#/volume] in Hospital Blood by Estimate ID Date Data Source [id number] 09/13/2019 06:56:[address] [facility] Name Value Range Interpretation Code Description Data Sharon rce(s) Supporting Document(s ) ACANTHOCYTES [facility] Hospital ID Date Data Source [id number] 09/13/2019 06:56:[address] [facility] Name Value Range Interpretation Code Description Data Sharon rce(s) Supporting Document(s ) TEARDROP OCC [place] CELLS Hospital ID Date Data Source [id number] 09/13/2019 06:56:00 PM EST [place] [facility] Name Value Range Interpretation Code Description Data Sharon rce(s) Supporting Document(s ) OVALOCYTES [facility] Hospital ID Date Data Source [id number] 09/13/2019 06:56:[address] [facility] Name Value Range Interpretation Code Description Data Supporting Source(s) Document(s ) POLYCHROMASIA [facility] Hospital ID Date Data Source [id number] 09/13/2019 06:56:00 PM EST [facility] Name Value Range Interpretation Code Description Data Sharon rce(s) Supporting Document(s ) HYPOCHROMIA 1+ [facility] ID Date Data Source [id number] 09/13/2019 06:56:00 PM EST [facility] Name Value Range Interpretation Code Description Data Sharon rce(s) Supporting Document(s ) MACROCYTOSIS 1+ [facility] ID Date Data Source [id number] 09/13/2019 06:56:00 PM EST [facility] Name Value Range Interpretation Code Description Data Sharon rce(s) Supporting Document(s ) ANISOCYTOSIS 1+ [facility] ID Date Data Source [id number] 09/13/2019 06:56:00 PM EST [facility] Value Range Interpretation Description Data Sup porting Code Source(s) Document(s ) Basophils 0.12 [place] [#/volume] in 10*3/uL Hospital Blood by Manual count ID Date Data Source [id number] 09/13/2019 06:56:00 PM EST [facility] Name Value Range Interpretation Description Data Sup porting Code Source(s) Document(s ) Eosinophils 0.29 [place] [#/volume] in 10*3/uL Hospital Blood by Manual count ID Date Data Source [id number] 09/13/2019 06:56:00 PM EST [facility] Name Value Range Interpretation Description Data Sup porting Code Source(s) Document(s ) Monocytes 0.35 [place] [#/volume] in 10*3/uL Hospital Blood by Manual count ID Date Data Source [id number] 09/13/2019 06:56:00 PM EST [facility] Value Range Interpretation Description Data Sup porting Code Source(s) Document(s ) Lymphocytes 1.74 [place] [#/volume] in 10*3/uL Hospital Blood by Manual count ID Date Data Source [id number] 09/13/2019 06:56:00 PM EST [facility] [facility] Name Value Range Interpretation Description Data Sup porting Code Source(s) Document(s ) Neutrophils 3.31 [place] [#/volume] in 10*3/uL Hospital Blood by Manual count ID Date Data Source [id number] 09/13/2019 06:56:00 PM EST [facility] Name Value Range Interpretation Description Data Sup porting Code Source(s) Document(s ) Basophils/100 2 % [place] leukocytes in Hospital Blood by Manual count ID Date Data Source [id number] 09/13/2019 06:56:00 PM EST [facility] Value Range Interpretation Description Data Sup porting Code Source(s) Document(s ) Eosinophils/100 5 % [place] leukocytes in Hospital Blood by Manual count ID Date Data Source [id number] 09/13/2019 06:56:00 PM EST [facility] Name Value Range Interpretation Description Data Sup porting Code Source(s) Document(s ) Monocytes/100 6 % [place] leukocytes in Hospital Blood by Manual count ID Date Data Source [id number] 09/13/2019 06:56:00 PM EST [facility] Name Value Range Interpretation Description Data Sup porting Code Source(s) Document(s ) Lymphocytes/100 30 % [place] leukocytes in Hospital Blood by Manual count ID Date Data Source [id number] 09/13/2019 06:56:00 PM EST [facility] Name Value Range Interpretation Description Data Sup porting Code Source(s) Document(s ) Band form 1 % [place] neutrophils/100 Hospital leukocytes in Blood ID Date Data Source [id number] 09/13/2019 06:56:00 PM EST [facility] [facility] Name Value Range Interpretation Description Data Sup porting Code Source(s) Document(s ) Neutrophils/100 56 % [place] leukocytes in Hospital Blood by Manual count ID Date Data Source [id number] 09/13/2019 06:56:[address] [facility] Name Value Range Interpretation Description Data Sup porting Code Source(s) Document(s ) Platelet mean 11.8 fL [facility] Hospital [Entitic volume] in Blood by Automated count ID Date Data Source [id number] 09/13/2019 06:29:[address] [facility] Name Value Range Interpretation Description Data Sup porting Code Source(s) Document(s ) Bacteria No growth [place] identified in Hospital Blood by Culture ID Date Data Source [id number] 09/13/2019 06:24:[address] [facility] Name Value Range Interpretation Description Data Sup porting Code Source(s) Document(s ) GLUCOSE RN Notified [facility] ID Date Data Source [id number] 09/13/2019 06:24:[address] [facility] Sludge Filtration Attendant:CYRUS PIEDRA Name Value Range Interpretation Description Data Sup porting Code Source(s) Document(s ) Glucose 89 mg/dL [place] [Mass/volume] Hospital in Capillary blood by Glucometer ID Date Data Source [id number] 09/06/2019 12:02:[address] [facility] Sludge Filtration Attendant:MABEL GRIJALVA Name Value Range Interpretation Description Data Sup porting Code Source(s) Document(s ) Glucose 76 mg/dL [facility]Mass[facility] in Capillary blood by Glucometer ID Date Data Source [id number] 09/06/2019 07:54:[address] [facility] Name Value Range Interpretation Description Data Sup porting Code Source(s) Document(s ) Phosphate 6.0 mg/dL [facility] in Serum or Plasma ID Date Data Source [id number] 09/06/2019 07:54:00 AM EST [facility] Name Value Range Interpretation Description Data Sup porting Code Source(s) Document(s ) Magnesium 2.2 mg/dL [facility] in Serum or Plasma ID Date Data Source [id number] 09/06/2019 07:54:00 AM EST [facility] Name Value Range Interpretation Description Data Sup porting Code Source(s) Document(s ) Calcium 7.9 mg/dL [facility] [Mass[facility]volume [facility] ] in Serum or Plasma ID Date Data Source [id number] 09/06/2019 07:54:00 AM EST [facility] Name Value Range Interpretation Code Description Data Sharon rce(s) Supporting Document(s ) Urea 6.4 [facility] nitrogen/Cre Hospital atinine [Mass Ratio] in Serum or Plasma ID Date Data Source [id number] 09/06/2019 07:54:00 AM EST [facility] Name Value Range Interpretation Description Data Sup porting Code Source(s) Document(s ) Creatinine 4.5 mg/dL [facility] in Serum or Plasma ID Date Data Source [id number] 09/06/2019 07:54:00 AM EST [facility] Name Value Range Interpretation Description Data Sup porting Code Source(s) Document(s ) Urea 29 mg/dL [facility] nitrogen Hospital [Mass/volume ] in Serum or Plasma ID Date Data Source [id number] 09/06/2019 07:54:00 AM EST [facility] Name Value Range Interpretation Code Description Data Sharon rce(s) Supporting Document(s ) Anion gap in 13 [facility] Serum or Hospital Plasma ID Date Data Source [id number] 09/06/2019 07:54:00 AM EST [facility] Name Value Range Interpretation Description Data Sup porting Code Source(s) Document(s ) Carbon 28 mmol/L [facility] dioxide, Hospital total [Moles/volu me] in Serum or Plasma ID Date Data Source [id number] 09/06/2019 07:54:00 AM EST [facility] Name Value Range Interpretation Description Data Sup porting Code Source(s) Document(s ) Chloride 102 [facility] [Moles/volum mmol/L Hospital e] in Serum or Plasma ID Date Data Source [id number] 09/06/2019 07:54:00 AM EST [facility] MODERATE HEMOLYSIS Name Value Range Interpretation Description Data Sup porting Code Source(s) Document(s ) Potassium 4.7 [facility] [Moles/volume mmol/L Hospital ] in Serum or Plasma ID Date Data Source [id number] 09/06/2019 07:54:00 AM EST [facility] Name Value Range Interpretation Description Data Sup porting Code Source(s) Document(s ) Sodium 138 mmol/L [facility] [Moles/volu Hospital me] in Serum or Plasma ID Date Data Source [id number] 09/06/2019 07:54:00 AM EST [facility] Name Value Range Interpretation Description Data Sup porting Code Source(s) Document(s ) Glucose 83 mg/dL [facility] [[facility] ] in Serum or Plasma ID Date Data Source [id number] 09/06/2019 07:54:00 AM EST [facility] Name Value Range Interpretation Description Data Sup porting Code Source(s) Document(s ) Differential AUTOMATED [facility] cell count Hospital method - Blood ID Date Data Source [id number] 09/06/2019 07:54:00 AM EST [facility] Name Value Range Interpretation Description Data Sup porting Code Source(s) Document(s ) Immature 0.02 [facility] granulocytes 10*3/uL Hospital [#/volume] in Blood by Automated count ID Date Data Source [id number] 09/06/2019 07:54:00 AM EST [facility] Name Value Range Interpretation Description Data Sup porting Code Source(s) Document(s ) Basophils 0.03 [facility] [#/volume] in 10*3/uL Hospital Blood by Automated count ID Date Data Source [id number] 09/06/2019 07:54:00 AM EST [facility] Name Value Range Interpretation Description Data Sup porting Code Source(s) Document(s ) Eosinophils 0.59 [facility] [#/volume] in 10*3/uL Hospital Blood by Automated count ID Date Data Source [id number] 09/06/2019 07:54:00 AM EST [facility] Name Value Range Interpretation Description Data Sup porting Code Source(s) Document(s ) Monocytes 0.53 [facility] [#/volume] in 10*3/uL Hospital Blood by Automated count ID Date Data Source [id number] 09/06/2019 07:54:00 AM EST [facility] Name Value Range Interpretation Description Data Sup porting Code Source(s) Document(s ) Lymphocytes 1.51 [facility] [#/volume] in 10*3/uL Hospital Blood by Automated count ID Date Data Source [id number] 09/06/2019 07:54:00 AM EST [facility] Name Value Range Interpretation Description Data Sup porting Code Source(s) Document(s ) Neutrophils 2.83 [facility] [#/volume] in 10*3/uL Hospital Blood by Automated count ID Date Data Source [id number] 09/06/2019 07:54:00 AM EST [facility] Name Value Range Interpretation Description Data Sup porting Code Source(s) Document(s ) Nucleated 0.0 % [facility] erythrocytes/10 Hospital 0 leukocytes [Ratio] in Blood by Automated count ID Date Data Source [id number] 09/06/2019 07:54:00 AM EST [facility] Name Value Range Interpretation Description Data Sup porting Code Source(s) Document(s ) Immature 0.4 % [facility] granulocytes/10 Hospital 0 leukocytes in Blood by Automated count ID Date Data Source [id number] 09/06/2019 07:54:00 AM EST [facility] Name Value Range Interpretation Description Data Sup porting Code Source(s) Document(s ) Basophils/100 0.5 % [facility] leukocytes in Hospital Blood by Automated count ID Date Data Source [id number] 09/06/2019 07:54:00 AM EST [facility] Name Value Range Interpretation Description Data Sup porting Code Source(s) Document(s ) Eosinophils/10 10.7 % [facility] 0 leukocytes Hospital in Blood by Automated count ID Date Data Source [id number] 09/06/2019 07:54:00 AM EST [facility] Name Value Range Interpretation Description Data Sup porting Code Source(s) Document(s ) Monocytes/100 9.6 % [facility] leukocytes in Hospital Blood by Automated count ID Date Data Source [id number] 09/06/2019 07:54:00 AM EST [facility] Name Value Range Interpretation Description Data Sup porting Code Source(s) Document(s ) Lymphocytes/10 27.4 % [facility] 0 leukocytes Hospital in Blood by Automated count ID Date Data Source [id number] 09/06/2019 07:54:00 AM EST [facility] Name Value Range Interpretation Description Data Sup porting Code Source(s) Document(s ) Neutrophils/10 51.4 % [facility] 0 leukocytes Hospital in Blood by Automated count ID Date Data Source [id number] 09/06/2019 07:54:[address] [facility] Name Value Range Interpretation Description Data Sup porting Code Source(s) Document(s ) Platelet mean 11.3 fL [facility] volume Hospital [Entitic volume] in Blood by Automated count ID Date Data Source [id number] 09/06/2019 07:54:[address] [facility] Name Value Range Interpretation Description Data Sup porting Code Source(s) Document(s ) Platelets 117 [facility] [#/volume] in 10*3/uL Hospital Blood by Automated count ID Date Data Source [id number] 09/06/2019 07:54:00 AM [facility] Value Range Interpretation Description Data Sup porting Code Source(s) Document(s ) Erythrocyte 19.2 % [facility] width [Ratio] by Automated count ID Date Data Source [id number] 09/06/2019 07:54:00 AM [facility] Value Range Interpretation Description Data Sup porting Code Source(s) Document(s ) Erythrocyte mean 30.2 [facility] corpuscular g/dL Hospital hemoglobin concentration [Mass/volume] by Automated count ID Date Data Source [id number] 09/06/2019 07:54:00 AM [facility] Value Range Interpretation Description Data Sup porting Code Source(s) Document(s ) Erythrocyte 32.2 pg [facility] corpuscular hemoglobin [Entitic mass] by Automated count ID Date Data Source [id number] 09/06/2019 07:54:00 AM [facility] Value Range Interpretation Description Data Sup porting Code Source(s) Document(s ) Erythrocyte 106.6 fL [facility] mean Hospital corpuscular volume [Entitic volume] by Automated count ID Date Data Source [id number] 09/06/2019 07:54:[address] [facility] Name Value Range Interpretation Description Data Sup porting Code Source(s) Document(s ) Hematocrit 32.4 % [facility] [Volume Hospital Fraction] of Blood by Automated count ID Date Data Source [id number] 09/06/2019 07:54:[address] [facility] Name Value Range Interpretation Description Data Sup porting Code Source(s) Document(s ) Hemoglobin 9.8 g/dL [facility]Mass[facility] in Blood ID Date Data Source [id number] 09/06/2019 07:54:[address] [facility] Name Value Range Interpretation Description Data Sup porting Code Source(s) Document(s ) Erythrocytes 3.04 [facility] [#/volume] in 10*6/uL Hospital Blood by Automated count ID Date Data Source [id number] 09/06/2019 07:54:[address] [facility] Name Value Range Interpretation Description Data Sup porting Code Source(s) Document(s ) Leukocytes 5.5 [facility] [#/volume] in 10*3/uL Hospital Blood by Automated count ID Date Data Source [id number] 09/05/2019 09:09:[address] [facility] THERAPEUTIC RANGES:UNFRACTIONATED HEPARI N THERAPY: 60-90 SECONDSARGATROBAN THERAPY: 49-99 SECONDS Name Value Range Interpretation Description Data Sup porting Code Source(s) Document(s ) aPTT in 31.[address] [facility] [address] [facility] plasma by Coagulation assay ID Date Data Source [id number] 09/05/2019 09:09:[address] [facility] THERAPEUTIC RANGE FOR STANDARD ORALANTIC OAGULANT THERAPY: 2.0-3.0THERAPEUTIC RANGE FOR HIGH DOSE ORALANTICOAGULANT THERAPY (MECHANICAL HEARTVALVE REPLACEMENT): 2.5-3.5 Name Value Range Interpretation Description Data Sup porting Code Source(s) Document(s ) INR in Platelet 1.0 [facility] poor plasma by Hospital Coagulation assay ID Date Data Source [id number] 09/05/2019 09:09:00 AM EST [facility] Name Value Range Interpretation Description Data Sup porting Code Source(s) Document(s ) PT panel - 10.7 s [facility] Platelet poor Hospital plasma by Coagulation assay ID Date Data Source [id number] 09/04/2019 02:38:00 AM EST [facility] Name Value Range Interpretation Description Data Sup porting Code Source(s) Document(s ) Ferritin 811.0 [facility] [Mass/volume ng/mL Hospital ] in Serum or Plasma ID Date Data Source [id number] 09/04/2019 02:38:00 AM EST [facility] Name Value Range Interpretation Description Data Sup porting Code Source(s) Document(s ) Folate > 24.0 [facility] [Mass/volum ng/mL Hospital e] in Serum or Plasma ID Date Data Source [id number] 09/04/2019 02:38:00 AM EST [facility] Name Value Range Interpretation Description Data Sup porting Code Source(s) Document(s ) Cobalamin 1387 [facility] (Vitamin B12) pg/mL Hospital [Mass/volume] in Serum or Plasma ID Date Data Source [id number] 09/04/2019 02:38:00 AM EST [facility] Name Value Range Interpretation Description Data Sup porting Code Source(s) Document(s ) Iron saturation 25 % [facility] [Mass Fraction] Hospital in Serum or Plasma ID Date Data Source [id number] 09/04/2019 02:38:00 AM EST [facility] Name Value Range Interpretation Description Data Sup porting Code Source(s) Document(s ) UNSAT IRON 134 ug/dL [facility] Hospital CAPACITY ID Date Data Source [id number] 09/04/2019 02:38:[address] [facility] Name Value Range Interpretation Description Data Sup porting Code Source(s) Document(s ) Iron binding 180 ug/dL [facility] capacity Hospital [Mass/volume ] in Serum or Plasma ID Date Data Source [id number] 09/04/2019 02:38:00 AM [facility] Value Range Interpretation Code Description Data Supporting Source(s) Document(s ) Iron 46 ug/dL [facility] [Mass/volum Hospital e] in Serum or Plasma ID Date Data Source [id number] 09/04/2019 02:38:00 AM [facility] Value Range Interpretation Code Description Data Supporting Source(s) Document(s ) Immature 17.9 % [facility] reticulocytes Hospital /Reticulocyte s.total in Blood ID Date Data Source [id number] 09/04/2019 02:38:00 AM [facility] Value Range Interpretation Description Data Sup porting Code Source(s) Document(s ) Reticulocytes 0.07 [facility] [#/volume] in 10*6/uL Hospital Blood by Automated count ID Date Data Source [id number] 09/04/2019 02:38:00 AM [facility] Value Range Interpretation Description Data Sup porting Code Source(s) Document(s ) Reticulocytes/10 3.58 % [facility] 0 erythrocytes Hospital in Blood by Automated count ID Date Data Source [id number] 09/04/2019 02:38:00 AM [facility] Value Range Interpretation Code Description Data Sharon rce(s) Supporting Document(s ) ELLIPTOCYTES OCC [facility] ID Date Data Source [id number] 09/04/2019 02:38:[address] [facility] Name Value Range Interpretation Code Description Data Sharon rce(s) Supporting Document(s ) MICROCYTOSIS [facility] ID Date Data Source [id number] 09/04/2019 02:38:00 AM [facility] Value Range Interpretation Description Data Sup porting Code Source(s) Document(s ) POIKILOCYTOSIS [facility] ID Date Data Source [id number] 09/04/2019 02:38:00 AM [facility] Value Range Interpretation Description Data Sup porting Code Source(s) Document(s ) Myelocytes/100 0 % [facility] leukocytes in Hospital Blood by Manual count ID Date Data Source [id number] 09/04/2019 02:38:00 AM [facility] Value Range Interpretation Description Data Sup porting Code Source(s) Document(s ) Ferritin 811.0 [facility] [Mass/volume ng/mL Hospital ] in Serum or Plasma ID Date Data Source [id number] 09/04/2019 02:38:00 AM [facility] Value Range Interpretation Description Data Sup porting Code Source(s) Document(s ) Folate > 24.0 [facility] [Mass/volum ng/mL Hospital e] in Serum or Plasma ID Date Data Source [id number] 09/04/2019 02:38:00 AM [facility] Value Range Interpretation Description Data Sup porting Code Source(s) Document(s ) Cobalamin 1387 [facility] (Vitamin B12) pg/mL Hospital [Mass/volume] in Serum or Plasma ID Date Data Source [id number] 09/04/2019 02:38:00 AM [facility] Value Range Interpretation Description Data Sup porting Code Source(s) Document(s ) Iron saturation 25 % [facility] [Mass Fraction] Hospital in Serum or Plasma ID Date Data Source [id number] 09/04/2019 02:38:00 AM EST [facility] Name Value Range Interpretation Description Data Sup porting Code Source(s) Document(s ) UNSAT IRON 134 ug/dL [facility] CAPACITY ID Date Data Source [id number] 09/04/2019 02:38:00 AM EST [facility] Name Value Range Interpretation Description Data Sup porting Code Source(s) Document(s ) Iron binding 180 ug/dL [facility] capacity [facility] [Mass/volume ] in Serum or Plasma ID Date Data Source [id number] 09/04/2019 02:38:[address] [facility] Name Value Range Interpretation Code Description Data Supporting Source(s) Document(s ) Iron 46 ug/dL [facility] [Mass/volum Hospital e] in Serum or Plasma ID Date Data Source [id number] 09/04/2019 02:38:[address] [facility] TEST PERFORMED BY [employer] [facility] [facility]ENSIT[facility] CHEMILUMINESCENCE METHOD. Name Value Range Interpretation Description Data Sup porting Code Source(s) Document(s ) Troponin 0.16 [facility] I.cardiac ng/mL Hospital [Mass/volume ] in Serum or Plasma ID Date Data Source [id number] 09/04/2019 02:38:[address] [facility] Name Value Range Interpretation Code Description Data Sharon rce(s) Supporting Document(s ) Lipase 17 U/L [facility] [Enzymatic Hospital activity/vo lume] in Serum or Plasma ID Date Data Source [id number] 09/04/2019 02:38:[address] [facility] Name Value Range Interpretation Description Data Sup porting Code Source(s) Document(s ) Aspartate 21 U/L [facility] aminotransferase [place] [Enzymatic Hospital activity/volume] in Serum or Plasma ID Date Data Source [id number] 09/04/2019 02:38:[address] [facility] Name Value Range Interpretation Description Data Sup porting Code Source(s) Document(s ) Alanine 9 U/L [facility] aminotransferase Hospital [Enzymatic activity/volume] in Serum or Plasma ID Date Data Source [id number] 09/04/2019 02:38:[address] [facility] Name Value Range Interpretation Description Data Sup porting Code Source(s) Document(s ) Alkaline 89 U/L [facility] phosphatase Hospital [Enzymatic activity/volume ] in Serum or Plasma ID Date Data Source [id number] 09/04/2019 02:38:00 AM [facility] Value Range Interpretation Description Data Sup porting Code Source(s) Document(s ) Bilirubin.t 0.2 mg/dL [facility] [Mass/volum e] in Serum or Plasma ID Date Data Source [id number] 09/04/2019 02:38:[address] [facility] Name Value Range Interpretation Code Description Data Sharon rce(s) Supporting Document(s ) Albumin/Glob 1.5 [facility] ulin [Mass Hospital Ratio] in Serum or Plasma ID Date Data Source [id number] 09/04/2019 02:38:[address] [facility] Name Value Range Interpretation Description Data Sup porting Code Source(s) Document(s ) Albumin 3.5 g/dL [facility] [Mass/volume Hospital ] in Serum or Plasma ID Date Data Source [id number] 09/04/2019 02:38:[address] [facility] Name Value Range Interpretation Description Data Sup porting Code Source(s) Document(s ) Protein 5.8 g/dL [facility] [Mass/volume Hospital ] in Serum or Plasma ID Date Data Source [id number] 09/04/2019 02:38:00 AM EST [facility] Name Value Range Interpretation Code Description Data Supporting Source(s) Document(s ) Immature 17.9 % [facility] reticulocytes Hospital /Reticulocyte s.total in Blood ID Date Data Source [id number] 09/04/2019 02:38:00 AM EST [facility] Name Value Range Interpretation Description Data Sup porting Code Source(s) Document(s ) Reticulocytes 0.07 [facility] [#/volume] in 10*6/uL Hospital Blood by Automated count ID Date Data Source [id number] 09/04/2019 02:38:00 AM EST [facility] Name Value Range Interpretation Description Data Sup porting Code Source(s) Document(s ) Reticulocytes/10 3.58 % [facility] 0 erythrocytes Hospital in Blood by Automated count ID Date Data Source [id number] 09/04/2019 02:38:00 AM EST [facility] Name Value Range Interpretation Code Description Data Supporting Source(s) Document(s ) NUCLEATED RBCS 0.0 % [facility] (AUTO Hospital DIFF%)DIS ID Date Data Source [id number] 09/04/2019 02:38:00 AM EST [facility] Name Value Range Interpretation Code Description Data Sharon rce(s) Supporting Document(s ) Cells 100 [facility] Counted Hospital Total [#] in Blood ID Date Data Source [id number] 09/04/2019 02:38:00 AM EST [facility] Name Value Range Interpretation Code Description Data Supporting Source(s) Document(s ) PLATELET NORMAL [facility] COMMENT Hospital ID Date Data Source [id number] 09/04/2019 02:38:00 AM EST [facility] Name Value Range Interpretation Code Description Data Sharon rce(s) Supporting Document(s ) ELLIPTOCYTES [facility] ID Date Data Source [id number] 09/04/2019 02:38:00 AM EST [facility] Name Value Range Interpretation Code Description Data Sharon rce(s) Supporting Document(s ) TEARDROP OCC [facility] CELLS Hospital ID Date Data Source [id number] 09/04/2019 02:38:00 AM EST [facility] Name Value Range Interpretation Code Description Data Sharon rce(s) Supporting Document(s ) OVALOCYTES [facility] ID Date Data Source [id number] 09/04/2019 02:38:[address] [facility] Name Value Range Interpretation Code Description Data [facility] rce(s) Supporting Document(s ) MACROCYTOSIS [facility] ID Date Data Source [id number] 09/04/2019 02:38:[address] [facility] Name Value Range Interpretation Code Description Data [facility] rce(s) Supporting Document(s ) MICROCYTOSIS [facility] ID Date Data Source [id number] 09/04/2019 02:38:[address] [facility] Name Value Range Interpretation Description Data Sup porting Code Source(s) Document(s ) POIKILOCYTOSIS [facility] ID Date Data Source [id number] 09/04/2019 02:38:[address] [facility] Name Value Range Interpretation Code Description Data Sharon rce(s) Supporting Document(s ) ANISOCYTOSIS [facility] ID Date Data Source [id number] 09/04/2019 02:38:[address] [facility] Name Value Range Interpretation Description Data Sup porting Code Source(s) Document(s ) Basophils 0.05 [facility] [#/volume] in 10*3/uL Hospital Blood by Manual count ID Date Data Source [id number] 09/04/2019 02:38:00 AM EST [facility] Name Value Range Interpretation Description Data Sup porting Code Source(s) Document(s ) Eosinophils 0.29 [facility] [#/volume] in 10*3/uL Hospital Blood by Manual count ID Date Data Source [id number] 09/04/2019 02:38:00 AM EST [facility] Name Value Range Interpretation Description Data Sup porting Code Source(s) Document(s ) Monocytes 0.34 [facility] [#/volume] in 10*3/uL Hospital Blood by Manual count ID Date Data Source [id number] 09/04/2019 02:38:00 AM EST [facility] Value Range Interpretation Description Data Sup porting Code Source(s) Document(s ) Lymphocytes 0.93 [facility] [#/volume] in 10*3/uL Hospital Blood by Manual count ID Date Data Source [id number] 09/04/2019 02:38:00 AM [facility] Value Range Interpretation Description Data Sup porting Code Source(s) Document(s ) Neutrophils 3.28 [place] [#/volume] in 10*3/uL Hospital Blood by Manual count ID Date Data Source [id number] 09/04/2019 02:38:00 AM [facility] Value Range Interpretation Description Data Sup porting Code Source(s) Document(s ) Myelocytes/100 0 % [place] [facility] in [facility] Blood by Manual count ID Date Data Source [id number] 09/04/2019 02:38:00 AM EST [facility] Value Range Interpretation Description Data Sup porting Code Source(s) Document(s ) Basophils/100 1 % [place] [facility] in [facility] Blood by Manual count ID Date Data Source [id number] 09/04/2019 02:38:00 AM EST [facility] Name Value Range Interpretation Description Data Sup porting Code Source(s) Document(s ) Eosinophils/100 6 % [place] [facility] in [facility] Blood by Manual count ID Date Data Source [id number] 09/04/2019 02:38:00 AM EST [facility] Name Value Range Interpretation Description Data Sup porting Code Source(s) Document(s ) Monocytes/100 7 % [place] [facility] in [facility] Blood by Manual count ID Date Data Source [id number] 09/04/2019 02:38:00 AM EST [facility] Value Range Interpretation Description Data Sup porting Code Source(s) Document(s ) Lymphocytes/100 19 % [place] [facility] in [facility] Blood by Manual count ID Date Data Source [id number] 09/04/2019 02:38:[address] [facility] Name Value Range Interpretation Description Data Sup porting Code Source(s) Document(s ) Band form 0 % [place] neutrophils/100 Hospital leukocytes in Blood ID Date Data Source [id number] 09/04/2019 02:38:00 AM [facility] Value Range Interpretation Description Data Sup porting Code Source(s) Document(s ) Neutrophils/100 67 % [place] [facility] in [facility] Blood by Manual count ID Date Data Source [id number] 08/24/2019 04:46:00 PM EST [facility] Name Value Range Interpretation Description Data Sup porting Code Source(s) Document(s ) Hepatitis B NON-REACT [place] virus core Ab [facility] [Presence] in Serum ID Date Data Source [id number] 08/24/2019 04:46:00 PM EST [facility] Value Range Interpretation Description Data Sup porting Code Source(s) Document(s ) Hepatitis B NON-REACT [place] virus surface [facility] [Presence] in Serum ID Date Data Source [id number] 08/24/2019 04:46:00 PM EST [facility] Name Value Range Interpretation Description Data Sup porting Code Source(s) Document(s ) Hepatitis B NON-REACT [place] virus surface [facility] Ag [Presence] in Serum ID Date Data Source [id number] 08/24/2019 04:46:00 PM EST [facility] Name Value Range Interpretation Description Data Sup porting Code Source(s) Document(s ) Hepatitis B NON-REACT [place] virus core Ab [facility] [Presence] in Serum ID Date Data Source [id number] 08/24/2019 04:46:00 PM EST [facility] Name Value Range Interpretation Description Data Sup porting Code Source(s) Document(s ) Hepatitis B NON-REACT [place] virus surface [facility] [Presence] in Serum ID Date Data Source [id number] 08/24/2019 04:46:00 PM EST [facility] Name Value Range Interpretation Description Data Sup porting Code Source(s) Document(s ) Hepatitis B NON-REACT [place] virus surface [facility] Ag [Presence] in Serum ID Date Data Source [id number] 08/24/2019 04:46:00 PM EST [facility] Name Value Range Interpretation Description Data Sup porting Code Source(s) Document(s ) Hepatitis B NON-REACT [place] virus core Ab [facility] [Presence] in Serum ID Date Data Source [id number] 08/24/2019 04:46:00 PM EST [facility] Name Value Range Interpretation Description Data Sup porting Code Source(s) Document(s ) Hepatitis B NON-REACT [place] virus surface [facility] Ab [Presence] in Serum ID Date Data Source [id number] 08/24/2019 04:46:00 PM EST [facility] Name Value Range Interpretation Description Data Sup porting Code Source(s) Document(s ) Hepatitis B NON-REACT [place] virus surface [facility] Ag [Presence] in Serum ID Date Data Source [id number] 08/24/2019 04:46:00 PM EST [facility] Name Value Range Interpretation Description Data Sup porting Code Source(s) Document(s ) Calcium 7.9 mg/dL [place] [Mass/volume Hospital ] in Serum or Plasma ID Date Data Source [id number] 08/24/2019 04:46:00 PM EST [facility] Name Value Range Interpretation Code Description Data Sharon rce(s) Supporting Document(s ) Urea 5.2 [place] nitrogen/Cre Hospital atinine [Mass Ratio] in Serum or Plasma ID Date Data Source [id number] 08/24/2019 04:46:00 PM EST [facility] Name Value Range Interpretation Description Data Sup porting Code Source(s) Document(s ) Creatinine 2.7 mg/dL [place] [Mass/volume] Hospital in Serum or Plasma ID Date Data Source [id number] 08/24/2019 04:46:00 PM EST [facility] Name Value Range Interpretation Description Data Sup porting Code Source(s) Document(s ) Urea 14 mg/dL [place] nitrogen [facility] [Mass/volume ] in Serum or Plasma ID Date Data Source [id number] 08/24/2019 04:46:00 PM EST [facility] Name Value Range Interpretation Code Description Data Sharon rce(s) Supporting Document(s ) Anion gap in 14 [place] Serum or Hospital Plasma ID Date Data Source [id number] 08/24/2019 04:46:00 PM EST [facility] Name Value Range Interpretation Description Data Sup porting Code Source(s) Document(s ) Carbon 30 mmol/L [place] dioxide, Hospital total [Moles/volu me] in Serum or Plasma ID Date Data Source [id number] 08/24/2019 04:46:00 PM EST [facility] Name Value Range Interpretation Description Data Sup porting Code Source(s) Document(s ) Chloride 101 [place] [Moles/volum mmol/L Hospital e] in Serum or Plasma ID Date Data Source [id number] 08/24/2019 04:46:00 PM EST [facility] Name Value Range Interpretation Description Data Sup porting Code Source(s) Document(s ) Potassium 3.6 [place] [Moles/volume mmol/L Hospital ] in Serum or Plasma ID Date Data Source [id number] 08/24/2019 04:46:00 PM EST [facility] Name Value Range Interpretation Description Data Sup porting Code Source(s) Document(s ) Sodium 141 mmol/L [place] [Moles/volu Hospital me] in Serum or Plasma ID Date Data Source [id number] 08/24/2019 04:46:00 PM EST [facility] Name Value Range Interpretation Description Data Sup porting Code Source(s) Document(s ) Glucose 101 mg/dL [place] [Mass/volume Hospital ] in Serum or Plasma ID Date Data Source [id number] 08/24/2019 04:46:00 PM EST [facility] Name Value Range Interpretation Description Data Sup porting Code Source(s) Document(s ) Platelet mean 11.9 fL [place] volume Hospital [Entitic volume] in Blood by Automated count ID Date Data Source [id number] 08/24/2019 04:46:[address] [facility] Name Value Range Interpretation Description Data Sup porting Code Source(s) Document(s ) Platelets 68 [place] [#/volume] in 10*3/uL Hospital Blood by Automated count ID Date Data Source [id number] 08/24/2019 04:46:00 PM [facility] Value Range Interpretation Description Data Sup porting Code Source(s) Document(s ) Erythrocyte 108.2 fL [place] mean Hospital corpuscular volume [Entitic volume] by Automated count ID Date Data Source [id number] 08/24/2019 04:46:00 PM [facility] Value Range Interpretation Description Data Sup porting Code Source(s) Document(s ) Hematocrit 32.9 % [place] [Volume Hospital Fraction] of Blood by Automated count ID Date Data Source [id number] 08/24/2019 04:46:00 PM [facility] Value Range Interpretation Description Data Sup porting Code Source(s) Document(s ) Hemoglobin 10.2 g/dL [place] [Mass/volume] Hospital in Blood ID Date Data Source [id number] 08/24/2019 04:46:00 PM [facility] Value Range Interpretation Description Data Sup porting Code Source(s) Document(s ) Erythrocytes 3.04 [place] [#/volume] in 10*6/uL Hospital Blood by Automated count ID Date Data Source [id number] 08/24/2019 04:46:00 PM [facility] Value Range Interpretation Description Data Sup porting Code Source(s) Document(s ) Leukocytes 4.8 [place] [#/volume] in 10*3/uL Hospital Blood by Automated count ID Date Data Source [id number] 08/24/2019 04:46:00 PM EST [facility] Name Value Range Interpretation Description Data Sup porting Code Source(s) Document(s ) Erythrocyte 14.6 % [facility] width [Ratio] by Automated count ID Date Data Source [id number] 08/24/2019 04:46:[address] [facility] Name Value Range Interpretation Description Data Sup porting Code Source(s) Document(s ) Erythrocyte mean 31.0 [place] corpuscular g/dL Hospital hemoglobin concentration [Mass/volume] by Automated count ID Date Data Source [id number] 08/24/2019 04:46:[address] [facility] Name Value Range Interpretation Description Data Sup porting Code Source(s) Document(s ) Erythrocyte 33.6 pg [facility] corpuscular hemoglobin [Entitic mass] by Automated count ID Date Data Source [id number] 07/22/2019 08:14:[address] [facility] Name Value Range Interpretation Description Data Sup porting Code Source(s) Document(s ) Protein 6.9 g/dL [place] [Mass/volume Hospital ] in Serum or Plasma ID Date Data Source [id number] 07/22/2019 08:14:[address] [facility] Name Value Range Interpretation Description Data Sup porting Code Source(s) Document(s ) Calcium 8.3 mg/dL [place] [Mass/volume Hospital ] in Serum or Plasma ID Date Data Source [id number] 07/22/2019 08:14:[address] [facility] Name Value Range Interpretation Code Description Data Sharon rce(s) Supporting Document(s ) Urea 7.9 [place] nitrogen/Cre Hospital atinine [Mass Ratio] in Serum or Plasma ID Date Data Source [id number] 07/22/2019 08:14:[address] [facility] NOTIFICATION AND READ BACK OF CRITICAL R ESULTS TO TAJ Avila AT 0929 ON 07/22/19 BY Larry Burton.REPORTED CR ITICAL VALUES SHOULD BE INTERPRETED WITHIN CLINICAL CONTEXT. Name Value Range Interpretation Description Data Sup porting Code Source(s) Document(s ) Creatinine 6.8 mg/dL [place] [Mass/volume] Hospital in Serum or Plasma ID Date Data Source [id number] 07/22/2019 08:14:[address] [facility] Name Value Range Interpretation Description Data Sup porting Code Source(s) Document(s ) Urea 54 mg/dL [place] nitrogen Hospital [Mass/volume ] in Serum or Plasma ID Date Data Source [id number] 07/22/2019 08:14:[address] [facility] Name Value Range Interpretation Code Description Data Sharon rce(s) Supporting Document(s ) Anion gap in 16 [place] Serum or Hospital Plasma ID Date Data Source [id number] 07/22/2019 08:14:[address] [facility] Name Value Range Interpretation Description Data Sup porting Code Source(s) Document(s ) Carbon 30 mmol/L [place] dioxide, Hospital total [Moles/volu me] in Serum or Plasma ID Date Data Source [id number] 07/22/2019 08:14:[address] [facility] Name Value Range Interpretation Description Data Sup porting Code Source(s) Document(s ) Chloride 95 mmol/L [place] [Moles/volum Hospital e] in Serum or Plasma ID Date Data Source [id number] 07/22/2019 08:14:[address] [facility] Name Value Range Interpretation Description Data Sup porting Code Source(s) Document(s ) Potassium 3.6 [place] [Moles/volume mmol/L Hospital ] in Serum or Plasma ID Date Data Source [id number] 07/22/2019 08:14:[address] [facility] Name Value Range Interpretation Description Data Sup porting Code Source(s) Document(s ) Sodium 137 mmol/L [place] [Moles/volu Hospital fl] in Serum or Plasma ID Date Data Source [id number] 07/22/2019 08:14:[address] [facility] Name Value Range Interpretation Description Data Sup porting Code Source(s) Document(s ) Glucose 96 mg/dL [place] [Mass/volume Hospital ] in Serum or Plasma ID Date Data Source [id number] 07/22/2019 08:14:[address] [facility] Name Value Range Interpretation Description Data Sup porting Code Source(s) Document(s ) Manual MANUAL [place] differential [facility] performed [Presence] in Blood ID Date Data Source [id number] 07/22/2019 08:14:[address] [facility] Name Value Range Interpretation Code Description Data Sharon rce(s) Supporting Document(s ) Cells 100 [facility] Hospital Total [#] in Blood ID Date Data Source [id number] 07/22/2019 08:14:00 AM [facility] Value Range Interpretation Code Description Data Supporting Source(s) Document(s ) PLATELET NORMAL [facility] Hospital ID Date Data Source [id number] 07/22/2019 08:14:[address] [facility] SLIGHTLY DECREASED. Name Value Range Interpretation Code Description Data Supporting Source(s) Document(s ) Platelets [place] [#/volume] in Hospital Blood by Estimate ID Date Data Source [id number] 07/22/2019 08:14:[address] [facility] Name Value Range Interpretation Code Description Data Sharon rce(s) Supporting Document(s ) HYPOCHROMIA OCC [facility] ID Date Data Source [id number] 07/22/2019 08:14:00 AM EST [facility] Name Value Range Interpretation Code Description Data Sharon rce(s) Supporting Document(s ) MACROCYTOSIS 1+ [facility] [facility] ID Date Data Source [id number] 07/22/2019 08:14:[address] [facility] Name Value Range Interpretation Description Data Sup porting Code Source(s) Document(s ) Basophils 0.08 [place] [#/volume] in 10*3/uL Hospital Blood by Manual count ID Date Data Source [id number] 07/22/2019 08:14:[address] [facility] Name Value Range Interpretation Description Data Sup porting Code Source(s) Document(s ) Eosinophils 0.08 [place] [#/volume] in 10*3/uL Hospital Blood by Manual count ID Date Data Source [id number] 07/22/2019 08:14:[address] [facility] Name Value Range Interpretation Description Data Sup porting Code Source(s) Document(s ) Monocytes 0.83 [place] [#/volume] in 10*3/uL Hospital Blood by Manual count ID Date Data Source [id number] 07/22/2019 08:14:[address] [facility] Name Value Range Interpretation Description Data Sup porting Code Source(s) Document(s ) Lymphocytes 1.20 [place] [#/volume] in 10*3/uL Hospital Blood by Manual count ID Date Data Source [id number] 07/22/2019 08:14:00 AM EST [facility] Name Value Range Interpretation Description Data Sup porting Code Source(s) Document(s ) Neutrophils 5.33 [place] [#/volume] in 10*3/uL Hospital Blood by Manual count ID Date Data Source [id number] 07/22/2019 08:14:00 AM EST [facility] Name Value Range Interpretation Description Data Sup porting Code Source(s) Document(s ) Basophils/100 1 % [place] leukocytes in [facility] Blood by Manual count ID Date Data Source [id number] 07/22/2019 08:14:00 AM EST [facility] Value Range Interpretation Description Data Sup porting Code Source(s) Document(s ) Eosinophils/100 1 % [place] leukocytes in [facility] Blood by Manual count ID Date Data Source [id number] 07/22/2019 08:14:00 AM EST [facility] Name Value Range Interpretation Description Data Sup porting Code Source(s) Document(s ) Monocytes/100 11 % [place] leukocytes in [facility] Blood by Manual count ID Date Data Source [id number] 07/22/2019 08:14:00 AM EST [facility] Value Range Interpretation Description Data Sup porting Code Source(s) Document(s ) Lymphocytes/100 16 % [place] [facility] in [facility] Blood by Manual count ID Date Data Source [id number] 07/22/2019 08:14:00 AM [facility] Value Range Interpretation Description Data Sup porting Code Source(s) Document(s ) Neutrophils/100 71 % [place] leukocytes in [facility] Blood by Manual count ID Date Data Source [id number] 07/22/2019 08:14:00 AM [facility] Value Range Interpretation Description Data Sup porting Code Source(s) Document(s ) Platelet mean 12.5 fL [place] volume [facility] [Entitic volume] in Blood by Automated count ID Date Data Source [id number] 07/22/2019 08:14:00 AM [facility] Value Range Interpretation Description Data Sup porting Code Source(s) Document(s ) Platelets 95 [place] [#/volume] in 10*3/uL Hospital Blood by Automated count ID Date Data Source [id number] 07/22/2019 08:14:[address] [facility] Name Value Range Interpretation Description Data Sup porting Code Source(s) Document(s ) Erythrocyte 13.4 % [facility] Hospital width [Ratio] by Automated count ID Date Data Source [id number] 07/22/2019 08:14:00 AM [facility] Value Range Interpretation Description Data Sup porting Code Source(s) Document(s ) Erythrocyte mean 30.6 [place] corpuscular g/dL Hospital hemoglobin concentration [Mass/volume] by Automated count ID Date Data Source [id number] 07/22/2019 08:14:00 AM [facility] Value Range Interpretation Description Data Sup porting Code Source(s) Document(s ) Erythrocyte 32.8 pg [facility] corpuscular hemoglobin [Entitic mass] by Automated count ID Date Data Source [id number] 07/22/2019 08:14:00 AM [facility] Value Range Interpretation Description Data Sup porting Code Source(s) Document(s ) Erythrocyte 107.3 fL [facility] corpuscular volume [Entitic volume] by Automated count ID Date Data Source [id number] 07/22/2019 08:14:00 AM [facility] Value Range Interpretation Description Data Sup porting Code Source(s) Document(s ) Hematocrit 35.3 % [place] [Volume Hospital Fraction] of Blood by Automated count ID Date Data Source [id number] 07/22/2019 08:14:00 AM [facility] Value Range Interpretation Description Data Sup porting Code Source(s) Document(s ) Hemoglobin 10.8 g/dL [place] [Mass/volume] Hospital in Blood ID Date Data Source [id number] 07/22/2019 08:14:[address] [facility] Name Value Range Interpretation Description Data Sup porting Code Source(s) Document(s ) Erythrocytes 3.29 [place] [#/volume] in 10*6/uL Hospital Blood by Automated count ID Date Data Source [id number] 07/22/2019 08:14:[address] [facility] Name Value Range Interpretation Description Data Sup porting Code Source(s) Document(s ) Leukocytes 7.5 [place] [#/volume] in 10*3/uL Hospital Blood by Automated count ID Date Data Source [id number] 07/22/2019 08:14:[address] [facility] Name Value Range Interpretation Description Data Sup porting Code Source(s) Document(s ) Aspartate 12 U/L [facility] aminotransferase [place] [Enzymatic Hospital activity/volume] in Serum or Plasma ID Date Data Source [id number] 07/22/2019 08:14:[address] [facility] Name Value Range Interpretation Description Data Sup porting Code Source(s) Document(s ) Alanine < 8 U/L [facility] aminotransferase [place] [Enzymatic Hospital activity/volume] in Serum or Plasma ID Date Data Source [id number] 07/22/2019 08:14:[address] [facility] Name Value Range Interpretation Description Data Sup porting Code Source(s) Document(s ) Alkaline 83 U/L [place] phosphatase Hospital [Enzymatic activity/volume ] in Serum or Plasma ID Date Data Source [id number] 07/22/2019 08:14:[address] [facility] Name Value Range Interpretation Description Data Sup porting Code Source(s) Document(s ) Bilirubin.t 0.2 mg/dL [facility] [Mass/volum e] in Serum or Plasma ID Date Data Source [id number] 07/22/2019 08:14:[address] [facility] Name Value Range Interpretation Code Description Data Sharon rce(s) Supporting Document(s ) Albumin/Glob 1.0 [place] ulin [Mass Hospital Ratio] in Serum or Plasma ID Date Data Source [id number] 07/22/2019 08:14:[address] [facility] Name Value Range Interpretation Description Data Sup porting Code Source(s) Document(s ) Albumin 3.4 g/dL [place] [Mass/volume Hospital ] in Serum or Plasma ID Date Data Source [id number] 07/22/2019 08:14:[address] [facility] Name Value Range Interpretation Description Data Sup porting Code Source(s) Document(s ) Protein 6.9 g/dL [place] [Mass/volume Hospital ] in Serum or Plasma ID Date Data Source [id number] 07/22/2019 08:14:[address] [facility] Name Value Range Interpretation Description Data Sup porting Code Source(s) Document(s ) Calcium 8.3 mg/dL [place] [Mass/volume Hospital ] in Serum or Plasma ID Date Data Source [id number] 07/22/2019 08:14:[address] [facility] Name Value Range Interpretation Code Description Data Sharon rce(s) Supporting Document(s ) Urea 7.9 [place] nitrogen/Cre Hospital atinine [Mass Ratio] in Serum or Plasma ID Date Data Source [id number] 07/22/2019 08:14:[address] [facility] NOTIFICATION AND READ BACK OF CRITICAL R ESULTS TO TAJ MELENDREZ R.N/Velvet AT 0929 ON 07/22/19 BY Larry Burton.REPORTED CR ITICAL VALUES SHOULD BE INTERPRETED WITHIN CLINICAL CONTEXT. Name Value Range Interpretation Description Data Sup porting Code Source(s) Document(s ) Creatinine 6.8 mg/dL [place] [Mass/volume] Hospital in Serum or Plasma ID Date Data Source [id number] 07/22/2019 08:14:[address] [facility] Name Value Range Interpretation Description Data Sup porting Code Source(s) Document(s ) Urea 54 mg/dL [facility] Hospital [Mass/volume ] in Serum or Plasma ID Date Data Source [id number] 07/22/2019 08:14:[address] [facility] Name Value Range Interpretation Code Description Data Sharon rce(s) Supporting Document(s ) Anion gap in [address] [place] [address] [facility] Plasma ID Date Data Source [id number] 07/22/2019 08:14:[address] [facility] Name Value Range Interpretation Description Data Sup porting Code Source(s) Document(s ) Carbon 30 mmol/L [place] dioxide, Hospital total [Moles/volu me] in Serum or Plasma ID Date Data Source [id number] 07/22/2019 08:14:[address] [facility] Name Value Range Interpretation Description Data Sup porting Code Source(s) Document(s ) Chloride 95 mmol/L [place] [Moles/volum Hospital e] in Serum or Plasma ID Date Data Source [id number] 07/22/2019 08:14:00 AM EST [facility] Name Value Range Interpretation Description Data Sup porting Code Source(s) Document(s ) Potassium 3.6 [place] [Moles/volume mmol/L Hospital ] in Serum or Plasma ID Date Data Source [id number] 07/22/2019 08:14:00 AM EST [facility] [facility] Name Value Range Interpretation Description Data Sup porting Code Source(s) Document(s ) Sodium 137 mmol/L [place] [facility]u [facility] me] in Serum or Plasma ID Date Data Source [id number] 07/22/2019 08:14:[address] [facility] Name Value Range Interpretation Description Data Sup porting Code Source(s) Document(s ) Glucose 96 mg/dL [place] [Mass/volume [facility] ] in Serum or Plasma ID Date Data Source [id number] 07/22/2019 08:14:[address] [facility] Name Value Range Interpretation Description Data Sup porting Code Source(s) Document(s ) Manual MANUAL [place] differential [facility] performed [Presence] in Blood ID Date Data Source [id number] 07/22/2019 08:14:[address] [facility] Name Value Range Interpretation Code Description Data Sharon rce(s) Supporting Document(s ) Cells 100 [facility] Hospital Total [#] in Blood ID Date Data Source [id number] 07/22/2019 08:14:[address] [facility] Name Value Range Interpretation Code Description Data Supporting Source(s) Document(s ) PLATELET NORMAL [facility] Hospital ID Date Data Source [id number] 07/22/2019 08:14:[address] [facility] SLIGHTLY DECREASED. Name Value Range Interpretation Code Description Data Supporting Source(s) Document(s ) Platelets [place] [#/volume] in Hospital Blood by Estimate ID Date Data Source [id number] 07/22/2019 08:14:[address] [facility] Name Value Range Interpretation Code Description Data Sharon rce(s) Supporting Document(s ) HYPOCHROMIA OCC [facility] ID Date Data Source [id number] 07/22/2019 08:14:[address] [facility] Name Value Range Interpretation Code Description Data Sharon rce(s) Supporting Document(s ) MACROCYTOSIS 1+ [facility] ID Date Data Source [id number] 07/22/2019 08:14:00 AM EST [facility] Name Value Range Interpretation Description Data Sup porting Code Source(s) Document(s ) Basophils 0.08 [place] [#/volume] in 10*3/uL Hospital Blood by Manual count ID Date Data Source [id number] 07/22/2019 08:14:00 AM EST [facility] Name Value Range Interpretation Description Data Sup porting Code Source(s) Document(s ) Eosinophils 0.08 [place] [#/volume] in 10*3/uL Hospital Blood by Manual count ID Date Data Source [id number] 07/22/2019 08:14:00 AM [facility] Value Range Interpretation Description Data Sup porting Code Source(s) Document(s ) Monocytes 0.83 [place] [#/volume] in 10*3/uL Hospital Blood by Manual count ID Date Data Source [id number] 07/22/2019 08:14:[address] [facility] Name Value Range Interpretation Description Data Sup porting Code Source(s) Document(s ) Lymphocytes 1.20 [place] [#/volume] in 10*3/uL Hospital Blood by Manual count ID Date Data Source [id number] 07/22/2019 08:14:[address] [facility] Name Value Range Interpretation Description Data Sup porting Code Source(s) Document(s ) Neutrophils 5.33 [place] [#/volume] in 10*3/uL Hospital Blood by Manual count ID Date Data Source [id number] 07/22/2019 08:14:00 AM EST [facility] Name Value Range Interpretation Description Data Sup porting Code Source(s) Document(s ) Basophils/100 1 % [place] leukocytes in Hospital Blood by Manual count ID Date Data Source [id number] 07/22/2019 08:14:00 AM EST [facility] Name Value Range Interpretation Description Data Sup porting Code Source(s) Document(s ) Eosinophils/100 1 % [place] leukocytes in Hospital Blood by Manual count ID Date Data Source [id number] 07/22/2019 08:14:00 AM EST [facility] Name Value Range Interpretation Description Data Sup porting Code Source(s) Document(s ) Monocytes/100 11 % [place] leukocytes in Hospital Blood by Manual count ID Date Data Source [id number] 07/22/2019 08:14:00 AM EST [facility] Name Value Range Interpretation Description Data Sup porting Code Source(s) Document(s ) Lymphocytes/100 16 % [place] leukocytes in Hospital Blood by Manual count ID Date Data Source [id number] 07/22/2019 08:14:00 AM EST [facility] Name Value Range Interpretation Description Data Sup porting Code Source(s) Document(s ) Neutrophils/100 71 % [place] leukocytes in Hospital Blood by Manual count ID Date Data Source [id number] 07/22/2019 08:14:[address] [facility] Name Value Range Interpretation Description Data Sup porting Code Source(s) Document(s ) Platelet mean 12.5 fL [place] volume Hospital [Entitic volume] in Blood by Automated count ID Date Data Source [id number] 07/22/2019 08:14:00 AM EST [facility] Name Value Range Interpretation Description Data Sup porting Code Source(s) Document(s ) Platelets 95 [place] [#/volume] in 10*3/uL Hospital Blood by Automated count ID Date Data Source [id number] 07/22/2019 08:14:00 AM EST [facility] Name Value Range Interpretation Description Data Sup porting Code Source(s) Document(s ) Erythrocyte 13.4 % [place] distribution Hospital width [Ratio] by Automated count ID Date Data Source [id number] 07/22/2019 08:14:00 AM [facility] Value Range Interpretation Description Data Sup porting Code Source(s) Document(s ) Erythrocyte mean 30.6 [place] corpuscular g/dL Hospital hemoglobin concentration [Mass/volume] by Automated count ID Date Data Source [id number] 07/22/2019 08:14:00 AM [facility] Value Range Interpretation Description Data Sup porting Code Source(s) Document(s ) Erythrocyte 32.8 pg [facility] corpuscular hemoglobin [Entitic mass] by Automated count ID Date Data Source [id number] 07/22/2019 08:14:00 AM [facility] Value Range Interpretation Description Data Sup porting Code Source(s) Document(s ) Erythrocyte 107.3 fL [facility] corpuscular volume [Entitic volume] by Automated count ID Date Data Source [id number] 07/22/2019 08:14:00 AM [facility] Value Range Interpretation Description Data Sup porting Code Source(s) Document(s ) Hematocrit 35.3 % [place] [Volume Hospital Fraction] of Blood by Automated count ID Date Data Source [id number] 07/22/2019 08:14:00 AM [facility] Value Range Interpretation Description Data Sup porting Code Source(s) Document(s ) Hemoglobin 10.8 g/dL [place] [Mass/volume] Hospital in Blood ID Date Data Source [id number] 07/22/2019 08:14:00 AM [facility] Value Range Interpretation Description Data Sup porting Code Source(s) Document(s ) Erythrocytes 3.29 [place] [#/volume] in 10*6/uL Hospital Blood by Automated count ID Date Data Source [id number] 07/22/2019 08:14:00 AM EST [facility] Name Value Range Interpretation Description Data Sup porting Code Source(s) Document(s ) Leukocytes 7.5 [place] [#/volume] in 10*3/uL Hospital Blood by Automated count ID Date Data Source [id number] 07/22/2019 08:14:00 AM EST [facility] Name Value Range Interpretation Description Data Sup porting Code Source(s) Document(s ) Phosphate 6.3 mg/dL [place] [Mass/volume] Hospital in Serum or Plasma ID Date Data Source [id number] 07/22/2019 08:14:[address] [facility] Name Value Range Interpretation Description Data Sup porting Code Source(s) Document(s ) Aspartate 12 U/L White aminotransferase [place] [Enzymatic Hospital activity/volume] in Serum or Plasma ID Date Data Source [id number] 07/22/2019 08:14:[address] [facility] Name Value Range Interpretation Description Data Sup porting Code Source(s) Document(s ) Alanine < 8 U/L White aminotransferase [place] [Enzymatic Hospital activity/volume] in Serum or Plasma ID Date Data Source [id number] 07/22/2019 08:14:00 AM EST [facility] Name Value Range Interpretation Description Data Sup porting Code Source(s) Document(s ) Alkaline 83 U/L [place] phosphatase Hospital [Enzymatic activity/volume ] in Serum or Plasma ID Date Data Source [id number] 07/22/2019 08:14:[address] [facility] Name Value Range Interpretation Description Data Sup porting Code Source(s) Document(s ) Bilirubin.t 0.2 mg/dL [facility] [Mass/volum e] in Serum or Plasma ID Date Data Source [id number] 07/22/2019 08:14:[address] [facility] Name Value Range Interpretation Code Description Data Sharon rce(s) Supporting Document(s ) Albumin/Glob 1.0 [place] ulin [Mass Hospital Ratio] in Serum or Plasma ID Date Data Source [id number] 07/22/2019 08:14:[address] [facility] Name Value Range Interpretation Description Data Sup porting Code Source(s) Document(s ) Albumin 3.4 g/dL [place] [Mass/volume Hospital ] in Serum or Plasma ID Date Data Source [id number] 07/21/2019 06:45:[address] [facility] NEUT VACUOLES PRESENT Name Value Range Interpretation Code Description Data Supporting Source(s) Document(s ) WBC COMMENT PRESENT [facility] ID Date Data Source [id number] 07/21/2019 06:45:00 AM [facility] Value Range Interpretation Code Description Data Sharon rce(s) Supporting Document(s ) ANISOCYTOSIS OCC [facility] ID Date Data Source [id number] 07/21/2019 06:45:[address] [facility] Name Value Range Interpretation Description Data Sup porting Code Source(s) Document(s ) Myelocytes/100 1 % [place] leukocytes in Hospital Blood by Manual count ID Date Data Source [id number] 07/21/2019 06:45:[address] [facility] NEUT VACUOLES PRESENT Name Value Range Interpretation Code Description Data Supporting Source(s) Document(s ) WBC COMMENT PRESENT [facility] ID Date Data Source [id number] 07/21/2019 06:45:00 AM [facility] Value Range Interpretation Code Description Data Sharon rce(s) Supporting Document(s ) ANISOCYTOSIS [facility] ID Date Data Source [id number] 07/21/2019 06:45:00 AM [facility] Value Range Interpretation Description Data Sup porting Code Source(s) Document(s ) Myelocytes/100 1 % [place] leukocytes in Hospital Blood by Manual count ID Date Data Source [id number] 07/20/2019 07:19:00 AM [facility] Value Range Interpretation Description Data Sup porting Code Source(s) Document(s ) Fibrin strands PRESENT [place] [Presence] in Hospital Blood by Light microscopy ID Date Data Source [id number] 07/20/2019 07:19:00 AM [facility] Value Range Interpretation Description Data Sup porting Code Source(s) Document(s ) Fibrin strands PRESENT [place] [Presence] in Hospital Blood by Light microscopy ID Date Data Source [id number] 07/19/2019 01:20:00 PM [facility] Value Range Interpretation Code Description Data Sharon rce(s) Supporting Document(s ) READ BACK Yes/ [facility] ID Date Data Source [id number] 07/19/2019 01:20:00 PM [facility] Value Range Interpretation Code Description Data Sharon rce(s) Supporting Document(s ) NOTE WHO DR[facility] RINALDI [facility] ID Date Data Source [id number] 07/19/2019 01:20:00 PM [facility] Value Range Interpretation Code Description Data Supporting Source(s) Document(s ) METHEMOGLOBIN 0.3 % [facility] ID Date Data Source [id number] 07/19/2019 01:20:00 PM [facility] Value Range Interpretation Description Data Sup porting Code Source(s) Document(s ) CARBOXYHEMOGLOBIN 1.1 % [facility] ID Date Data Source [id number] 07/19/2019 01:20:00 PM EST [facility] Name Value Range Interpretation Description Data Sup porting Code Source(s) Document(s ) INSPIRATORY 16 [facility] ID Date Data Source [id number] 07/19/2019 01:20:00 PM EST [facility] Name Value Range Interpretation Description Data Sup porting Code Source(s) Document(s ) EXPIRATORY 5 [facility] ID Date Data Source [id number] 07/19/2019 01:20:00 PM EST [facility] Value Range Interpretation Code Description Data Sharon rce(s) Supporting Document(s ) READ BACK Yes/MD [facility] ID Date Data Source [id number] 07/19/2019 01:20:00 PM EST [facility] Value Range Interpretation Code Description Data Sharon rce(s) Supporting Document(s ) NOTE WHO DR[facility] RINALDI [facility] ID Date Data Source [id number] 07/19/2019 01:20:00 PM EST [facility] Value Range Interpretation Code Description Data Supporting Source(s) Document(s ) METHEMOGLOBIN 0.3 % [facility] ID Date Data Source [id number] 07/19/2019 01:20:00 PM EST [facility] Value Range Interpretation Description Data Sup porting Code Source(s) Document(s ) CARBOXYHEMOGLOBIN 1.1 % [facility] ID Date Data Source [id number] 07/19/2019 01:20:00 PM EST [facility] Value Range Interpretation Code Description Data Sharon rce(s) Supporting Document(s ) ABG TEMP 97.0 [facility] ID Date Data Source [id number] 07/19/2019 01:20:00 PM EST [facility] Name Value Range Interpretation Code Description Data Sharon rce(s) Supporting Document(s ) FIO2 30 % [facility] ID Date Data Source [id number] 07/19/2019 01:20:00 PM EST [facility] Name Value Range Interpretation Code Description Data Sharon rce(s) Supporting Document(s ) ABG BE 1.4 mmol/L [facility] ID Date Data Source [id number] 07/19/2019 01:20:00 PM [facility] Value Range Interpretation Code Description Data Sharon rce(s) Supporting Document(s ) ABG O2SAT 89 % [facility] ID Date Data Source [id number] 07/19/2019 01:20:00 PM EST [facility] Value Range Interpretation Code Description Data Sharon rce(s) Supporting Document(s ) ABG HCO3 29 mmol/L [facility] ID Date Data Source [id number] 07/19/2019 01:20:00 PM [facility] Value Range Interpretation Code Description Data Sharon rce(s) Supporting Document(s ) ABG PO2 58 mm[Hg] [facility] ID Date Data Source [id number] 07/19/2019 01:20:00 PM [facility] Value Range Interpretation Code Description Data Sharon rce(s) Supporting Document(s ) ABG PCO2 57 mm[Hg] [facility] ID Date Data Source [id number] 07/19/2019 01:20:00 PM [facility] Value Range Interpretation Code Description Data Sharon rce(s) Supporting Document(s ) ABG PH 7.32 [facility] ID Date Data Source [id number] 07/19/2019 01:20:00 PM EST [facility] Name Value Range Interpretation Code Description Data Sharon rce(s) Supporting Document(s ) ABG MODE BiPaP [facility] ID Date Data Source [id number] 07/19/2019 01:20:00 PM EST [facility] Name Value Range Interpretation Code Description Data Supporting Source(s) Document(s ) ABG SITE Right [facility] ID Date Data Source [id number] 07/19/2019 01:20:00 PM EST [facility] Name Value Range Interpretation Code Description Data Supporting Source(s) Document(s ) ABG SOURCE ARTERIAL [facility] ID Date Data Source [id number] 07/19/2019 01:20:00 PM EST [facility] Name Value Range Interpretation Code Description Data Sharon rce(s) Supporting Document(s ) XAVIER TEST POSITIVE [facility] ID Date Data Source [id number] 07/19/2019 01:20:00 PM EST [facility] Name Value Range Interpretation Description Data Sup porting Code Source(s) Document(s ) INSPIRATORY 16 [facility] ID Date Data Source [id number] 07/19/2019 01:20:00 PM EST [facility] Name Value Range Interpretation Description Data Sup porting Code Source(s) Document(s ) EXPIRATORY 5 [facility] ID Date Data Source [id number] 07/19/2019 01:20:00 PM EST [facility] Name Value Range Interpretation Code Description Data Sharon rce(s) Supporting Document(s ) ABG TEMP 97.0 [facility] ID Date Data Source [id number] 07/19/2019 01:20:[address] [facility] Name Value Range Interpretation Code Description Data Sharon rce(s) Supporting Document(s ) FIO2 30 % [facility] ID Date Data Source [id number] 07/19/2019 01:20:[address] [facility] Name Value Range Interpretation Code Description Data Sharon rce(s) Supporting Document(s ) ABG BE 1.4 mmol/L [facility] ID Date Data Source [id number] 07/19/2019 01:20:00 PM [facility] Value Range Interpretation Code Description Data Sharon rce(s) Supporting Document(s ) ABG O2SAT 89 % [facility] ID Date Data Source [id number] 07/19/2019 01:20:00 PM [facility] Value Range Interpretation Code Description Data Sharon rce(s) Supporting Document(s ) ABG HCO3 29 mmol/L [facility] ID Date Data Source [id number] 07/19/2019 01:20:00 PM [facility] Value Range Interpretation Code Description Data Sharon rce(s) Supporting Document(s ) ABG PO2 58 mm[Hg] [facility] ID Date Data Source [id number] 07/19/2019 01:20:[address] [facility] Name Value Range Interpretation Code Description Data Sharon rce(s) Supporting Document(s ) ABG PCO2 57 mm[Hg] [facility] ID Date Data Source [id number] 07/19/2019 01:20:00 PM [facility] Value Range Interpretation Code Description Data Sharon rce(s) Supporting Document(s ) ABG PH 7.32 [facility] ID Date Data Source [id number] 07/19/2019 01:20:[address] [facility] Name Value Range Interpretation Code Description Data Sharon rce(s) Supporting Document(s ) ABG MODE BiPaP [facility] ID Date Data Source [id number] 07/19/2019 01:20:[address] [facility] Name Value Range Interpretation Code Description Data Supporting Source(s) Document(s ) ABG SITE Right [place] Radial [facility] ID Date Data Source [id number] 07/19/2019 01:20:[address] [facility] Name Value Range Interpretation Code Description Data Supporting Source(s) Document(s ) ABG SOURCE ARTERIAL [facility] ID Date Data Source [id number] 07/19/2019 01:20:[address] [facility] Name Value Range Interpretation Code Description Data Sharon rce(s) Supporting Document(s ) XAVIER TEST POSITIVE [facility] ID Date Data Source [id number] 07/19/2019 11:11:[address] [facility] Sludge Filtration Attendant:HEATH REID Name Value Range Interpretation Description Data Sup porting Code Source(s) Document(s ) Glucose 124 mg/dL [place] [Mass/volume] Hospital in Capillary blood by Glucometer ID Date Data Source [id number] 07/19/2019 11:11:[address] [facility] Sludge Filtration Attendant:HEATH REID Name Value Range Interpretation Description Data Sup porting Code Source(s) Document(s ) Glucose 124 mg/dL [place] [Mass/volume] Hospital in Capillary blood by Glucometer ID Date Data Source [id number] 07/19/2019 07:05:[address] [facility] Name Value Range Interpretation Description Data Sup porting Code Source(s) Document(s ) Magnesium 2.1 mg/dL [place] [Mass/volume] Hospital in Serum or Plasma ID Date Data Source [id number] 07/19/2019 07:05:[address] [facility] Name Value Range Interpretation Code Description Data Supporting Source(s) Document(s ) NUCLEATED RBCS 0.0 % [place] (AUTO Hospital DIFF%)DIS ID Date Data Source [id number] 07/19/2019 07:05:[address] [facility] Name Value Range Interpretation Description Data Sup porting Code Source(s) Document(s ) Differential MANUAL [place] cell count [facility] method - Blood ID Date Data Source [id number] 07/19/2019 07:05:[address] [facility] Name Value Range Interpretation Description Data Sup porting Code Source(s) Document(s ) Magnesium 2.1 mg/dL [place] [Mass/volume] Hospital in Serum or Plasma ID Date Data Source [id number] 07/19/2019 07:05:[address] [facility] Name Value Range Interpretation Code Description Data Supporting Source(s) Document(s ) NUCLEATED RBCS 0.0 % [place] (AUTO Hospital DIFF%)DIS ID Date Data Source [id number] 07/19/2019 07:05:00 AM [facility] Value Range Interpretation Description Data Sup porting Code Source(s) Document(s ) Differential MANUAL [place] cell count [facility] method - Blood ID Date Data Source [id number] 07/17/2019 03:11:[address] [facility] Name Value Range Interpretation Description Data Sup porting Code Source(s) Document(s ) Thyrotropin 0.358 [place] [Units/volume] u[IU]/mL Hospital in Serum or Plasma by Detection limit <= 0.005 mIU/L ID Date Data Source [id number] 07/17/2019 03:11:[address] [facility] Name Value Range Interpretation Description Data Sup porting Code Source(s) Document(s ) Phosphate 9.3 mg/dL [place] [Mass/volume] Hospital in Serum or Plasma ID Date Data Source [id number] 07/17/2019 03:11:[address] [facility] THERAPEUTIC RANGES:UNFRACTIONATED HEPARI N THERAPY: 60-90 SECONDSARGATROBAN THERAPY: 49-99 SECONDS Name Value Range Interpretation Description Data Sup porting Code Source(s) Document(s ) aPTT in 30.0 s [place] Plate[address] [facility] plasma by Coagulation assay ID Date Data Source [id number] 07/17/2019 03:11:[address] [facility] THERAPEUTIC RANGE FOR STANDARD ORALANTIC OAGULANT THERAPY: 2.0-3.0THERAPEUTIC RANGE FOR HIGH DOSE ORALANTICOAGULANT THERAPY (MECHANICAL HEARTVALVE REPLACEMENT): 2.5-3.5 Name Value Range Interpretation Description Data Sup porting Code Source(s) Document(s ) INR in Platelet 1.0 [facility] plasma by Hospital Coagulation assay ID Date Data Source [id number] 07/17/2019 03:11:[address] [facility] Name Value Range Interpretation Description Data Sup porting Code Source(s) Document(s ) PT panel - 11.0 s [place] Platelet poor [facility] plasma by Coagulation assay ID Date Data Source [id number] 07/17/2019 03:11:[address] [facility] Name Value Range Interpretation Description Data Sup porting Code Source(s) Document(s ) Immature 0.03 [place] granulocytes 10*3/uL Hospital [#/volume] in Blood by Automated count ID Date Data Source [id number] 07/17/2019 03:11:[address] [facility] Name Value Range Interpretation Description Data Sup porting Code Source(s) Document(s ) Basophils 0.00 [place] [#/volume] in 10*3/uL Hospital Blood by Automated count ID Date Data Source [id number] 07/17/2019 03:11:00 PM EST [facility] Name Value Range Interpretation Description Data Sup porting Code Source(s) Document(s ) Eosinophils 0.00 [place] [#/volume] in 10*3/uL [facility] Blood by Automated count ID Date Data Source [id number] 07/17/2019 03:11:00 PM EST [facility] Value Range Interpretation Description Data Sup porting Code Source(s) Document(s ) Monocytes 0.29 [place] [#/volume] in 10*3/uL Hospital Blood by Automated count ID Date Data Source [id number] 07/17/2019 03:11:00 PM [facility] Value Range Interpretation Description Data Sup porting Code Source(s) Document(s ) Lymphocytes 0.32 [place] [#/volume] in 10*3/uL Hospital Blood by Automated count ID Date Data Source [id number] 07/17/2019 03:11:00 PM [facility] Value Range Interpretation Description Data Sup porting Code Source(s) Document(s ) Neutrophils 6.72 [place] [#/volume] in 10*3/uL [facility] Blood by Automated count ID Date Data Source [id number] 07/17/2019 03:11:00 PM [facility] Value Range Interpretation Description Data Sup porting Code Source(s) Document(s ) Nucleated 0.0 % [place] erythrocytes/10 Hospital 0 leukocytes [Ratio] in Blood by Automated count ID Date Data Source [id number] 07/17/2019 03:11:00 PM [facility] Value Range Interpretation Description Data Sup porting Code Source(s) Document(s ) Immature 0.4 % [place] granulocytes/10 Hospital 0 leukocytes in Blood by Automated count ID Date Data Source [id number] 07/17/2019 03:11:00 PM EST [facility] Name Value Range Interpretation Description Data Sup porting Code Source(s) Document(s ) Basophils/100 0.0 % [place] leukocytes in Hospital Blood by Automated count ID Date Data Source [id number] 07/17/2019 03:11:00 PM EST [facility] Name Value Range Interpretation Description Data Sup porting Code Source(s) Document(s ) Eosinophils/100 0.0 % [place] leukocytes in Hospital Blood by Automated count ID Date Data Source [id number] 07/17/2019 03:11:00 PM EST [facility] Value Range Interpretation Description Data Sup porting Code Source(s) Document(s ) Monocytes/100 3.9 % [place] leukocytes in Hospital Blood by Automated count ID Date Data Source [id number] 07/17/2019 03:11:00 PM EST [facility] Value Range Interpretation Description Data Sup porting Code Source(s) Document(s ) Lymphocytes/100 4.3 % [place] leukocytes in Hospital Blood by Automated count ID Date Data Source [id number] 07/17/2019 03:11:00 PM EST [facility] Value Range Interpretation Description Data Sup porting Code Source(s) Document(s ) Neutrophils/10 91.4 % [place] 0 leukocytes Hospital in Blood by Automated count ID Date Data Source [id number] 07/17/2019 03:11:00 PM EST [facility] Name Value Range Interpretation Description Data Sup porting Code Source(s) Document(s ) Thyrotropin 0.358 [place] [Units/volume] u[IU]/mL Hospital in Serum or Plasma by Detection limit <= 0.005 mIU/L ID Date Data Source [id number] 07/17/2019 03:11:[address] [facility] THERAPEUTIC RANGES:UNFRACTIONATED HEPARI N THERAPY: 60-90 SECONDSARGATROBAN THERAPY: 49-99 SECONDS Name Value Range Interpretation Description Data Sup porting Code Source(s) Document(s ) aPTT in 30.[address] [place] Platelet [address] [facility] plasma by Coagulation assay ID Date Data Source [id number] 07/17/2019 03:11:[address] [facility] THERAPEUTIC RANGE FOR STANDARD ORALANTIC OAGULANT THERAPY: 2.0-3.0THERAPEUTIC RANGE FOR HIGH DOSE ORALANTICOAGULANT THERAPY (MECHANICAL HEARTVALVE REPLACEMENT): 2.5-3.5 Name Value Range Interpretation Description Data Sup porting Code Source(s) Document(s ) INR in Platelet 1.0 [place] poor plasma by [facility] Coagulation assay ID Date Data Source [id number] 07/17/2019 03:11:[address] [facility] Name Value Range Interpretation Description Data Sup porting Code Source(s) Document(s ) PT panel - 11.0 s [place] Platelet poor [facility] plasma by Coagulation assay ID Date Data Source [id number] 07/17/2019 03:11:[address] [facility] Name Value Range Interpretation Description Data Sup porting Code Source(s) Document(s ) Immature 0.03 [place] granulocytes 10*3/uL Hospital [#/volume] in Blood by Automated count ID Date Data Source [id number] 07/17/2019 03:11:[address] [facility] Name Value Range Interpretation Description Data Sup porting Code Source(s) Document(s ) Basophils 0.00 [place] [#/volume] in 10*3/uL Hospital Blood by Automated count ID Date Data Source [id number] 07/17/2019 03:11:[address] [facility] Name Value Range Interpretation Description Data Sup porting Code Source(s) Document(s ) Eosinophils 0.00 [place] [#/volume] in 10*3/uL Hospital Blood by Automated count ID Date Data Source [id number] 07/17/2019 03:11:[address] [facility] Name Value Range Interpretation Description Data Sup porting Code Source(s) Document(s ) Monocytes 0.29 [place] [#/volume] in 10*3/uL Hospital Blood by Automated count ID Date Data Source [id number] 07/17/2019 03:11:00 PM [facility] Value Range Interpretation Description Data Sup porting Code Source(s) Document(s ) Lymphocytes 0.32 [place] [#/volume] in 10*3/uL Hospital Blood by Automated count ID Date Data Source [id number] 07/17/2019 03:11:00 PM [facility] Value Range Interpretation Description Data Sup porting Code Source(s) Document(s ) Neutrophils 6.72 [place] [#/volume] in 10*3/uL [facility] Blood by Automated count ID Date Data Source [id number] 07/17/2019 03:11:00 PM [facility] Value Range Interpretation Description Data Sup porting Code Source(s) Document(s ) Nucleated 0.0 % [place] erythrocytes/10 Hospital 0 leukocytes [Ratio] in Blood by Automated count ID Date Data Source [id number] 07/17/2019 03:11:[address] [facility] Name Value Range Interpretation Description Data Sup porting Code Source(s) Document(s ) Immature 0.4 % [place] granulocytes/10 Hospital 0 leukocytes in Blood by Automated count ID Date Data Source [id number] 07/17/2019 03:11:00 PM [facility] Value Range Interpretation Description Data Sup porting Code Source(s) Document(s ) Basophils/100 0.0 % [place] leukocytes in Hospital Blood by Automated count ID Date Data Source [id number] 07/17/2019 03:11:00 PM EST [place] [facility] Name Value Range Interpretation Description Data Sup porting Code Source(s) Document(s ) Eosinophils/100 0.0 % [place] leukocytes in Hospital Blood by Automated count ID Date Data Source [id number] 07/17/2019 03:11:00 PM EST [place] [facility] Name Value Range Interpretation Description Data Sup porting Code Source(s) Document(s ) Monocytes/100 3.9 % [place] leukocytes in Hospital Blood by Automated count ID Date Data Source [id number] 07/17/2019 03:11:00 PM EST [place] [facility] Name Value Range Interpretation Description Data Sup porting Code Source(s) Document(s ) Lymphocytes/100 4.3 % [place] leukocytes in Hospital Blood by Automated count ID Date Data Source [id number] 07/17/2019 03:11:00 PM EST [place] [facility] Name Value Range Interpretation Description Data Sup porting Code Source(s) Document(s ) Neutrophils/10 91.4 % [place] 0 leukocytes Hospital in Blood by Automated count ID Date Data Source [id number] 07/16/2019 03:33:00 AM EST [facility] Name Value Range Interpretation Code Description Data Supporting Source(s) Document(s ) HEP B SURF 8.74 [place] AB QUANT m[IU]/mL Hospital ID Date Data Source [id number] 07/16/2019 03:33:00 AM EST [facility] Value Range Interpretation Description Data Sup porting Code Source(s) Document(s ) Hepatitis B NON-REACT [place] virus surface [facility] Ag [Presence] in Serum ID Date Data Source [id number] 07/16/2019 03:33:00 AM [facility] Value Range Interpretation Code Description Data Supporting Source(s) Document(s ) HEP B SURF 8.74 [place] AB QUANT m[IU]/mL Hospital ID Date Data Source [id number] 07/16/2019 03:33:00 AM [facility] Value Range Interpretation Description Data Sup porting Code Source(s) Document(s ) Hepatitis B NON-REACT [place] virus surface [facility] Ag [Presence] in Serum ID Date Data Source [id number] 07/15/2019 11:32:00 AM [facility] Value Range Interpretation Description Data Sup porting Code Source(s) Document(s ) Lactate < 0.5 [place] [Moles/volum mmol/L Hospital e] in Serum or Plasma ID Date Data Source [id number] 07/15/2019 11:32:00 AM [facility] Value Range Interpretation Description Data Sup porting Code Source(s) Document(s ) Lactate < 0.5 [place] [Moles/volum mmol/L Hospital e] in Serum or Plasma ID Date Data Source [id number] 07/15/2019 01:36:00 AM [facility] Value Range Interpretation Description Data Sup porting Code Source(s) Document(s ) Bacteria No growth [place] identified in [facility] Blood by Culture ID Date Data Source [id number] 07/15/2019 01:36:00 AM [facility] Value Range Interpretation Description Data Sup porting Code Source(s) Document(s ) Bacteria No growth [place] identified in [facility] Blood by Culture ID Date Data Source [id number] 07/15/2019 12:18:00 AM [facility] Value Range Interpretation Description Data Sup porting Code Source(s) Document(s ) Natriuretic 818.8 [place] peptide B pg/mL Hospital [Mass/volume] in Serum or Plasma ID Date Data Source [id number] 07/15/2019 12:18:[address] [facility] TEST PERFORMED BY [employer] [facility] CHEMILUMINESCENCE METHOD. Name Value Range Interpretation Description Data Sup porting Code Source(s) Document(s ) Troponin 0.06 [place] I.cardiac ng/mL Hospital [Mass/volume ] in Serum or Plasma ID Date Data Source [id number] 07/15/2019 12:18:[address] [facility] Name Value Range Interpretation Description Data Sup porting Code Source(s) Document(s ) Procalcitonin 4.7 [place] [Mass/volume] in ng/mL Hospital Serum or Plasma ID Date Data Source [id number] 07/15/2019 12:18:00 AM [facility] Value Range Interpretation Code Description Data Sharon rce(s) Supporting Document(s ) Lipase 15 U/L [place] [Enzymatic Hospital activity/vo lume] in Serum or Plasma ID Date Data Source [id number] 07/15/2019 12:18:00 AM [facility] Value Range Interpretation Code Description Data Sharon rce(s) Supporting Document(s ) OVALOCYTES [facility] ID Date Data Source [id number] 07/15/2019 12:18:[address] [facility] Name Value Range Interpretation Code Description Data Supporting Source(s) Document(s ) POLYCHROMASIA [facility] ID Date Data Source [id number] 07/15/2019 12:18:[address] [facility] Name Value Range Interpretation Description Data Sup porting Code Source(s) Document(s ) POIKILOCYTOSIS [facility] ID Date Data Source [id number] 07/15/2019 12:18:[address] [facility] Name Value Range Interpretation Description Data Sup porting Code Source(s) Document(s ) Band form 1 % [place] neutrophils/100 Hospital leukocytes in Blood ID Date Data Source [id number] 07/15/2019 12:18:[address] [facility] Name Value Range Interpretation Description Data Sup porting Code Source(s) Document(s ) Natriuretic 818.8 [place] peptide B pg/mL Hospital [Mass/volume] in Serum or Plasma ID Date Data Source [id number] 07/15/2019 12:18:[address] [facility] TEST PERFORMED BY [employer] [facility] [facility] [facility] CHEMILUMINESCENCE METHOD. Name Value Range Interpretation Description Data Sup porting Code Source(s) Document(s ) Troponin 0.06 [place] I.cardiac ng/mL Hospital [Mass/volume ] in Serum or Plasma ID Date Data Source [id number] 07/15/2019 12:18:[address] [facility] Name Value Range Interpretation Description Data Sup porting Code Source(s) Document(s ) Procalcitonin 4.7 [place] [Mass/volume] in ng/mL Hospital Serum or Plasma ID Date Data Source [id number] 07/15/2019 12:18:[address] [facility] Name Value Range Interpretation Code Description Data Sharon rce(s) Supporting Document(s ) Lipase 15 U/L [place] [Enzymatic Hospital activity/vo lume] in Serum or Plasma ID Date Data Source [id number] 07/15/2019 12:18:[address] [facility] Name Value Range Interpretation Code Description Data Sharon rce(s) Supporting Document(s ) OVALOCYTES OCC [facility] ID Date Data Source [id number] 07/15/2019 12:18:[address] [facility] Name Value Range Interpretation Code Description Data Supporting Source(s) Document(s ) POLYCHROMASIA [facility] ID Date Data Source [id number] 07/15/2019 12:18:00 AM [facility] Value Range Interpretation Description Data Sup porting Code Source(s) Document(s ) POIKILOCYTOSIS [facility] ID Date Data Source [id number] 07/15/2019 12:18:00 AM [facility] Value Range Interpretation Description Data Sup porting Code Source(s) Document(s ) Band form 1 % [place] neutrophils/100 Hospital leukocytes in Blood ID Date Data Source [id number] 07/14/2019 11:49:00 PM [facility] Value Range Interpretation Description Data Sup porting Code Source(s) Document(s ) Methicillin PATIENT IS White resistant PRESUMED [place] [facility] POSITIVE FOR Hospital aureus (MRSA) MRSA DNA [Presence] COLONIZATION in Unspecified specimen by Probe and target amplification method Methicillin MRSA TARGET White resistant DNA DETECTED [place] [facility] aureus (MRSA) DNA [Presence] in Unspecified specimen by Probe and target amplification method ID Date Data Source [id number] 07/14/2019 11:49:00 PM [facility] Value Range Interpretation Description Data Sup porting Code Source(s) Document(s ) Methicillin MRSA TARGET White resistant DNA DETECTED [place] [facility] aureus (MRSA) DNA [Presence] in Unspecified specimen by Probe and target amplification method Methicillin PATIENT IS White resistant PRESUMED [place] [facility] POSITIVE FOR Hospital aureus (MRSA) MRSA DNA [Presence] COLONIZATION in Unspecified specimen by Probe and target amplification method ID Date Data Source [id number] 07/03/2019 01:54:00 AM [facility] Value Range Interpretation Description Data Sup porting Code Source(s) Document(s ) Fungus NO FUNGUS [place] identified in ISOLATED Hospital Unspecified AFTER 21 specimen by DAYS Culture ID Date Data Source [id number] 07/03/2019 12:38:[address] [facility] TEST PERFORMED BY [employer] [facility] CHEMILUMINESCENCE METHOD. Name Value Range Interpretation Description Data Sup porting Code Source(s) Document(s ) Troponin 0.04 [place] I.cardiac ng/mL Hospital [Mass/volume ] in Serum or Plasma ID Date Data Source [id number] 07/03/2019 12:12:[address] [facility] Sludge Filtration Attendant:KAZ TERAN Name Value Range Interpretation Description Data Sup porting Code Source(s) Document(s ) Glucose 248 mg/dL [place] [Mass/volume] Hospital in Capillary blood by Glucometer ID Date Data Source [id number] 07/02/2019 09:38:[address] [facility] Name Value Range Interpretation Code Description Data Sharon rce(s) Supporting Document(s ) SMUDGE CELLS OCC [facility] ID Date Data Source [id number] 07/02/2019 09:38:[address] [facility] Name Value Range Interpretation Code Description Data Sharon rce(s) Supporting Document(s ) Lipase 23 U/L [place] [Enzymatic Hospital activity/vo lume] in Serum or Plasma ID Date Data Source [id number] 07/02/2019 09:38:[address] [facility] Name Value Range Interpretation Description Data Sup porting Code Source(s) Document(s ) Aspartate 26 U/L [place] aminotransferase [place] [Enzymatic Hospital activity/volume] in Serum or Plasma ID Date Data Source [id number] 07/02/2019 09:38:[address] [facility] Name Value Range Interpretation Description Data Sup porting Code Source(s) Document(s ) Alanine < 8 U/L [place] aminotransferase [place] [Enzymatic Hospital activity/volume] in Serum or Plasma ID Date Data Source [id number] 07/02/2019 09:38:[address] [facility] Name Value Range Interpretation Description Data Sup porting Code Source(s) Document(s ) Alkaline 97 U/L [place] phosphatase [facility] [Enzymatic activity/volume ] in Serum or Plasma ID Date Data Source [id number] 07/02/2019 09:38:[address] [facility] Name Value Range Interpretation Description Data Sup porting Code Source(s) Document(s ) Bilirubin.t 0.2 mg/dL [facility] [Mass/volum e] in Serum or Plasma ID Date Data Source [id number] 07/02/2019 09:38:[address] [facility] Name Value Range Interpretation Code Description Data Sharon rce(s) Supporting Document(s ) Albumin/Glob 1.3 [facility] [Mass Hospital Ratio] in Serum or Plasma ID Date Data Source [id number] 07/02/2019 09:38:[address] [facility] Name Value Range Interpretation Description Data Sup porting Code Source(s) Document(s ) Albumin 3.6 g/dL [place] [Mass/volume Hospital ] in Serum or Plasma ID Date Data Source [id number] 07/02/2019 09:38:[address] [facility] Name Value Range Interpretation Description Data Sup porting Code Source(s) Document(s ) Protein 6.3 g/dL [place] [Mass/volume Hospital ] in Serum or Plasma ID Date Data Source [id number] 07/02/2019 09:38:[address] [facility] Name Value Range Interpretation Description Data Sup porting Code Source(s) Document(s ) Calcium 7.4 mg/dL [place] [Mass/volume Hospital ] in Serum or Plasma ID Date Data Source [id number] 07/02/2019 09:38:00 PM EST [facility] Name Value Range Interpretation Code Description Data Sharon rce(s) Supporting Document(s ) Urea 8.6 [place] nitrogen/Cre Hospital atinine [Mass Ratio] in Serum or Plasma ID Date Data Source [id number] 07/02/2019 09:38:00 PM EST [facility] Name Value Range Interpretation Description Data Sup porting Code Source(s) Document(s ) Creatinine 4.2 mg/dL [place] [Mass/volume] Hospital in Serum or Plasma ID Date Data Source [id number] 07/02/2019 09:38:[address] [facility] Name Value Range Interpretation Description Data Sup porting Code Source(s) Document(s ) Urea 36 mg/dL [place] nitrogen Hospital [Mass/volume ] in Serum or Plasma ID Date Data Source [id number] 07/02/2019 09:38:[address] [facility] Name Value Range Interpretation Code Description Data Sharon rce(s) Supporting Document(s ) Anion gap in [address] [place] [address] [facility] Plasma ID Date Data Source [id number] 07/02/2019 09:38:[address] [facility] Name Value Range Interpretation Description Data Sup porting Code Source(s) Document(s ) Carbon 26 mmol/L [place] dioxide, Hospital total [Moles/volu me] in Serum or Plasma ID Date Data Source [id number] 07/02/2019 09:38:[address] [facility] Name Value Range Interpretation Description Data Sup porting Code Source(s) Document(s ) Chloride 99 mmol/L [place] [Moles/volum Hospital e] in Serum or Plasma ID Date Data Source [id number] 07/02/2019 09:38:[address] [facility] MODERATE HEMOLYSIS Name Value Range Interpretation Description Data Sup porting Code Source(s) Document(s ) Potassium 4.9 [place] [Moles/volume mmol/L Hospital ] in Serum or Plasma ID Date Data Source [id number] 07/02/2019 09:38:00 PM EST [facility] Name Value Range Interpretation Description Data Sup porting Code Source(s) Document(s ) Sodium 139 mmol/L [place] [Moles/volu Hospital fl] in Serum or Plasma ID Date Data Source [id number] 07/02/2019 09:38:[address] [facility] Name Value Range Interpretation Description Data Sup porting Code Source(s) Document(s ) Glucose 73 mg/dL [place] [Mass/volume Hospital ] in Serum or Plasma ID Date Data Source [id number] 07/02/2019 09:38:[address] [facility] Name Value Range Interpretation Code Description Data Supporting Source(s) Document(s ) NUCLEATED RBCS 0.0 % [place] (AUTO Hospital DIFF%)DIS ID Date Data Source [id number] 07/02/2019 09:38:00 PM [facility] Value Range Interpretation Description Data Sup porting Code Source(s) Document(s ) Differential MANUAL [place] cell count [facility] method - Blood ID Date Data Source [id number] 07/02/2019 09:38:00 PM [facility] Value Range Interpretation Code Description Data Sharon rce(s) Supporting Document(s ) MACROCYTOSIS OCC [facility] ID Date Data Source [id number] 07/02/2019 09:38:[address] [facility] Name Value Range Interpretation Code Description Data Sharon rce(s) Supporting Document(s ) ANISOCYTOSIS OCC [facility] ID Date Data Source [id number] 07/02/2019 09:38:00 PM EST [facility] Name Value Range Interpretation Description Data Sup porting Code Source(s) Document(s ) Eosinophils 0.25 [place] [#/volume] in 10*3/uL Hospital Blood by Manual count ID Date Data Source [id number] 07/02/2019 09:38:00 PM EST [facility] Name Value Range Interpretation Description Data Sup porting Code Source(s) Document(s ) Monocytes 0.22 [place] [#/volume] in 10*3/uL Hospital Blood by Manual count ID Date Data Source [id number] 07/02/2019 09:38:00 PM [facility] Value Range Interpretation Description Data Sup porting Code Source(s) Document(s ) Lymphocytes 1.01 [place] [#/volume] in 10*3/uL Hospital Blood by Manual count ID Date Data Source [id number] 07/02/2019 09:38:00 PM [facility] Value Range Interpretation Description Data Sup porting Code Source(s) Document(s ) Neutrophils 2.12 [place] [#/volume] in 10*3/uL Hospital Blood by Manual count ID Date Data Source [id number] 07/02/2019 09:38:[address] [facility] Name Value Range Interpretation Description Data Sup porting Code Source(s) Document(s ) Eosinophils/100 7 % [place] leukocytes in Hospital Blood by Manual count ID Date Data Source [id number] 07/02/2019 09:38:00 PM EST [facility] Name Value Range Interpretation Description Data Sup porting Code Source(s) Document(s ) Monocytes/100 6 % [place] leukocytes in Hospital Blood by Manual count ID Date Data Source [id number] 07/02/2019 09:38:00 PM EST [facility] Name Value Range Interpretation Description Data Sup porting Code Source(s) Document(s ) Lymphocytes/100 28 % [place] leukocytes in Hospital Blood by Manual count ID Date Data Source [id number] 07/02/2019 09:38:00 PM EST [facility] Name Value Range Interpretation Description Data Sup porting Code Source(s) Document(s ) Neutrophils/100 59 % [place] leukocytes in Hospital Blood by Manual count ID Date Data Source [id number] 07/02/2019 09:38:00 PM [facility] Value Range Interpretation Description Data Sup porting Code Source(s) Document(s ) Platelet mean 12.1 fL [place] volume Hospital [Entitic volume] in Blood by Automated count ID Date Data Source [id number] 07/02/2019 09:38:00 PM [facility] Value Range Interpretation Description Data Sup porting Code Source(s) Document(s ) Platelets 94 [place] [#/volume] in 10*3/uL Hospital Blood by Automated count ID Date Data Source [id number] 07/02/2019 09:38:00 PM [facility] Value Range Interpretation Description Data Sup porting Code Source(s) Document(s ) Erythrocyte 14.2 % [place] distribution Hospital width [Ratio] by Automated count ID Date Data Source [id number] 07/02/2019 09:38:[address] [facility] Name Value Range Interpretation Description Data Sup porting Code Source(s) Document(s ) Erythrocyte mean 31.5 [place] corpuscular g/dL Hospital hemoglobin concentration [Mass/volume] by Automated count ID Date Data Source [id number] 07/02/2019 09:38:00 PM EST [facility] Value Range Interpretation Description Data Sup porting Code Source(s) Document(s ) Erythrocyte 33.1 pg [place] mean Hospital corpuscular hemoglobin [Entitic mass] by Automated count ID Date Data Source [id number] 07/02/2019 09:38:[address] [facility] Name Value Range Interpretation Description Data Sup porting Code Source(s) Document(s ) Erythrocyte 105.2 fL [place] mean Hospital corpuscular volume [Entitic volume] by Automated count ID Date Data Source [id number] 07/02/2019 09:38:[address] [facility] Name Value Range Interpretation Description Data Sup porting Code Source(s) Document(s ) Hematocrit 30.2 % [place] [Volume Hospital Fraction] of Blood by Automated count ID Date Data Source [id number] 07/02/2019 09:38:[address] [facility] Name Value Range Interpretation Description Data Sup porting Code Source(s) Document(s ) Hemoglobin 9.5 g/dL [place] [Mass/volume] Hospital in Blood ID Date Data Source [id number] 07/02/2019 09:38:[address] [facility] Name Value Range Interpretation Description Data Sup porting Code Source(s) Document(s ) Erythrocytes 2.87 [place] [#/volume] in 10*6/uL Hospital Blood by Automated count ID Date Data Source [id number] 07/02/2019 09:38:[address] [facility] Name Value Range Interpretation Description Data Sup porting Code Source(s) Document(s ) Leukocytes 3.6 [place] [#/volume] in 10*3/uL Hospital Blood by Automated count ID Date Data Source [id number] 07/02/2019 09:38:[address] [facility] Name Value Range Interpretation Code Description Data Sharon rce(s) Supporting Document(s ) Cells 100 [place] Counted Hospital Total [#] in Blood ID Date Data Source [id number] 07/02/2019 09:38:[address] [facility] GIANT PLATELETS PRESENT Name Value Range Interpretation Description Data Sup porting Code Source(s) Document(s ) PLATELET PRESENT [facility] Hospital ID Date Data Source [id number] 07/02/2019 09:38:[address] [facility] Name Value Range Interpretation Description Data Sup porting Code Source(s) Document(s ) Platelets DECREASED [place] [#/volume] in Hospital Blood by Estimate ID Date Data Source [id number] 07/02/2019 09:38:[address] [facility] Name Value Range Interpretation Code Description Data Sahron rce(s) Supporting Document(s ) SMUDGE CELLS [facility] ID Date Data Source [id number] 07/02/2019 09:38:[address] [facility] Name Value Range Interpretation Code Description Data Supporting Source(s) Document(s ) POLYCHROMASIA [facility] ID Date Data Source [id number] 06/07/2019 06:27:[address] [facility] Sludge Filtration Attendant:NIDHI GUEVARA Name Value Range Interpretation Description Data Sup porting Code Source(s) Document(s ) Glucose 97 mg/dL [place] [Mass/volume] Hospital in Capillary blood by Glucometer ID Date Data Source [id number] 06/07/2019 06:27:[address] [facility] Sludge Filtration Attendant:PAOLA NIDHI Name Value Range Interpretation Description Data Sup porting Code Source(s) Document(s ) Glucose 97 mg/dL [place] [Mass/volume] Hospital in Capillary blood by Glucometer ID Date Data Source [id number] 06/07/2019 09:17:[address] [facility] THERAPEUTIC RANGES:UNFRACTIONATED HEPARI N THERAPY: 60-90 SECONDSARGATROBAN THERAPY: 49-99 SECONDS Name Value Range Interpretation Description Data Sup porting Code Source(s) Document(s ) aPTT in 33.[address] [place] Platelet poor [facility] plasma by Coagulation assay ID Date Data Source [id number] 06/07/2019 09:17:[address] [facility] THERAPEUTIC RANGE FOR STANDARD ORALANTIC OAGULANT THERAPY: 2.0-3.0THERAPEUTIC RANGE FOR HIGH DOSE ORALANTICOAGULANT THERAPY (MECHANICAL HEARTVALVE REPLACEMENT): 2.5-3.5 Name Value Range Interpretation Description Data Sup porting Code Source(s) Document(s ) INR in Platelet 1.0 [place] poor plasma by [facility] Coagulation assay ID Date Data Source [id number] 06/07/2019 09:17:[address] [facility] Name Value Range Interpretation Description Data Sup porting Code Source(s) Document(s ) PT panel - 11.6 s [place] Platelet poor [facility] plasma by Coagulation assay ID Date Data Source [id number] 06/07/2019 09:17:[address] [facility] NEUT VACUOLES PRESENT Name Value Range Interpretation Code Description Data Supporting Source(s) Document(s ) WBC COMMENT PRESENT [facility] ID Date Data Source [id number] 06/07/2019 09:17:[address] [facility] Name Value Range Interpretation Code Description Data Sharon rce(s) Supporting Document(s ) HYPOCHROMIA OCC [facility] ID Date Data Source [id number] 06/07/2019 09:17:[address] [facility] Name Value Range Interpretation Description Data Sup porting Code Source(s) Document(s ) Basophils 0.10 [place] [#/volume] in 10*3/uL Hospital Blood by Manual count ID Date Data Source [id number] 06/07/2019 09:17:[address] [facility] Name Value Range Interpretation Description Data Sup porting Code Source(s) Document(s ) Metamyelocytes/ 1 % [place] 100 leukocytes Hospital in Blood by Manual count ID Date Data Source [id number] 06/07/2019 09:17:[address] [facility] Name Value Range Interpretation Description Data Sup porting Code Source(s) Document(s ) Basophils/100 2 % [place] leukocytes in Hospital Blood by Manual count ID Date Data Source [id number] 06/07/2019 09:17:[address] [facility] TEST PERFORMED BY [email or web address] [facility]ENS[facility] CHEMILUMINESCENCE METHOD. Name Value Range Interpretation Description Data Sup porting Code Source(s) Document(s ) Troponin 0.06 [place] I.cardiac ng/mL Hospital [Mass/volume ] in Serum or Plasma ID Date Data Source [id number] 06/07/2019 09:17:[address] [facility] Name Value Range Interpretation Description Data Sup porting Code Source(s) Document(s ) Aspartate 12 U/L White aminotransferase [place] [Enzymatic Hospital activity/volume] in Serum or Plasma ID Date Data Source [id number] 06/07/2019 09:17:[address] [facility] Name Value Range Interpretation Description Data Sup porting Code Source(s) Document(s ) Alanine < 8 U/L White aminotransferase [place] [Enzymatic Hospital activity/volume] in Serum or Plasma ID Date Data Source [id number] 06/07/2019 09:17:[address] [facility] Name Value Range Interpretation Description Data Sup porting Code Source(s) Document(s ) Alkaline 118 U/L [place] phosphatase Hospital [Enzymatic activity/volume ] in Serum or Plasma ID Date Data Source [id number] 06/07/2019 09:17:[address] [facility] Name Value Range Interpretation Description Data Sup porting Code Source(s) Document(s ) Bilirubin.t 0.2 mg/dL [facility] [Mass/volum e] in Serum or Plasma ID Date Data Source [id number] 06/07/2019 09:17:[address] [facility] Name Value Range Interpretation Code Description Data Sharon rce(s) Supporting Document(s ) Albumin/Glob 1.3 [facility] [Mass Hospital Ratio] in Serum or Plasma ID Date Data Source [id number] 06/07/2019 09:17:[address] [facility] Name Value Range Interpretation Description Data Sup porting Code Source(s) Document(s ) Albumin 3.6 g/dL [place] [Mass/volume Hospital ] in Serum or Plasma ID Date Data Source [id number] 06/07/2019 09:17:[address] [facility] Name Value Range Interpretation Description Data Sup porting Code Source(s) Document(s ) Protein 6.3 g/dL [place] [Mass/volume Hospital ] in Serum or Plasma ID Date Data Source [id number] 06/07/2019 09:17:[address] [facility] NOTIFICATION AND READ BACK OF CRITICAL R ESULTS TO THOMAS MAYFIELD RN @ [facility] AT 0956 ON 06/07/19 BY Ruma Manley.REPORTED CRITI MARCI VALUES SHOULD BE INTERPRETED WITHIN CLINICAL CONTEXT. Name Value Range Interpretation Description Data Sup porting Code Source(s) Document(s ) Calcium 6.4 mg/dL [place] [Mass/volume Hospital ] in Serum or Plasma ID Date Data Source [id number] 06/07/2019 09:17:[address] [facility] Name Value Range Interpretation Description Data Sup porting Code Source(s) Document(s ) Platelets 85 [place] [#/volume] in 10*3/uL Hospital Blood by Automated count ID Date Data Source [id number] 06/07/2019 09:17:00 AM [facility] Value Range Interpretation Description Data Sup porting Code Source(s) Document(s ) Erythrocyte 14.6 % [facility] Hospital width [Ratio] by Automated count ID Date Data Source [id number] 06/07/2019 09:17:00 AM [facility] Value Range Interpretation Description Data Sup porting Code Source(s) Document(s ) Erythrocyte mean 32.1 [place] corpuscular g/dL Hospital hemoglobin concentration [Mass/volume] by Automated count ID Date Data Source [id number] 06/07/2019 09:17:00 AM [facility] Value Range Interpretation Description Data Sup porting Code Source(s) Document(s ) Erythrocyte 33.5 pg [facility] corpuscular hemoglobin [Entitic mass] by Automated count ID Date Data Source [id number] 06/07/2019 09:17:00 AM [facility] Value Range Interpretation Description Data Sup porting Code Source(s) Document(s ) Erythrocyte 104.3 fL [facility] corpuscular volume [Entitic volume] by Automated count ID Date Data Source [id number] 06/07/2019 09:17:00 AM [facility] Value Range Interpretation Description Data Sup porting Code Source(s) Document(s ) Hematocrit 29.3 % [place] [Volume Hospital Fraction] of Blood by Automated count ID Date Data Source [id number] 06/07/2019 09:17:00 AM [facility] Value Range Interpretation Description Data Sup porting Code Source(s) Document(s ) Hemoglobin 9.4 g/dL [place] [Mass/volume] Hospital in Blood ID Date Data Source [id number] 06/07/2019 09:17:[address] [facility] Name Value Range Interpretation Description Data Sup porting Code Source(s) Document(s ) Erythrocytes 2.81 [place] [#/volume] in 10*6/uL Hospital Blood by Automated count ID Date Data Source [id number] 06/07/2019 09:17:[address] [facility] Name Value Range Interpretation Description Data Sup porting Code Source(s) Document(s ) Leukocytes 5.0 [place] [#/volume] in 10*3/uL Hospital Blood by Automated count ID Date Data Source [id number] 06/07/2019 09:17:[address] [facility] TEST PERFORMED BY [employer] UL[employer] SENSIT[employer] [facility]ENTA[facility] CHEMILUMINESCENCE METHOD. Name Value Range Interpretation Description Data Sup porting Code Source(s) Document(s ) Troponin 0.06 [place] I.cardiac ng/mL Hospital [Mass/volume ] in Serum or Plasma ID Date Data Source [id number] 06/07/2019 09:17:[address] [facility] Name Value Range Interpretation Description Data Sup porting Code Source(s) Document(s ) Aspartate 12 U/L White aminotransferase [place] [Enzymatic Hospital activity/volume] in Serum or Plasma ID Date Data Source [id number] 06/07/2019 09:17:[address] [facility] Name Value Range Interpretation Description Data Sup porting Code Source(s) Document(s ) Alanine < 8 U/L White aminotransferase [place] [Enzymatic Hospital activity/volume] in Serum or Plasma ID Date Data Source [id number] 06/07/2019 09:17:[address] [facility] Name Value Range Interpretation Description Data Sup porting Code Source(s) Document(s ) Alkaline 118 U/L [place] phosphatase Hospital [Enzymatic activity/volume ] in Serum or Plasma ID Date Data Source [id number] 06/07/2019 09:17:[address] [facility] Name Value Range Interpretation Description Data Sup porting Code Source(s) Document(s ) Bilirubin.t 0.2 mg/dL [facility] [Mass/volum e] in Serum or Plasma ID Date Data Source [id number] 06/07/2019 09:17:[address] [facility] Name Value Range Interpretation Code Description Data Sharon rce(s) Supporting Document(s ) Albumin/Glob 1.3 [facility] [Mass Hospital Ratio] in Serum or Plasma ID Date Data Source [id number] 06/07/2019 09:17:[address] [facility] Name Value Range Interpretation Description Data Sup porting Code Source(s) Document(s ) Albumin 3.6 g/dL [place] [Mass/volume Hospital ] in Serum or Plasma ID Date Data Source [id number] 06/07/2019 09:17:[address] [facility] Name Value Range Interpretation Description Data Sup porting Code Source(s) Document(s ) Protein 6.3 g/dL [place] [Mass/volume Hospital ] in Serum or Plasma ID Date Data Source [id number] 06/07/2019 09:17:[address] [facility] NOTIFICATION AND READ BACK OF CRITICAL R ESULTS TO THOMAS MAYFIELD, YRIS @ [facility] AT 0956 ON 06/07/19 BY Ruma Manley.REPORTED CRITI MARCI VALUES SHOULD BE INTERPRETED WITHIN CLINICAL CONTEXT. Name Value Range Interpretation Description Data Sup porting Code Source(s) Document(s ) Calcium 6.4 mg/dL [place] [Mass/volume Hospital ] in Serum or Plasma ID Date Data Source [id number] 06/07/2019 09:17:[address] [facility] Name Value Range Interpretation Code Description Data Sharon rce(s) Supporting Document(s ) Urea 8.7 [place] nitrogen/Cre Hospital atinine [Mass Ratio] in Serum or Plasma ID Date Data Source [id number] 06/07/2019 09:17:[address] [facility] NOTIFICATION AND READ BACK OF CRITICAL R ESULTS TO THOMAS MAYFIELD RN @ [facility] AT 0956 ON 06/07/19 BY Ruma Manley.REPORTED CRITI MARCI VALUES SHOULD BE INTERPRETED WITHIN CLINICAL CONTEXT. Name Value Range Interpretation Description Data Sup porting Code Source(s) Document(s ) Creatinine 7.5 mg/dL [place] [Mass/volume] Hospital in Serum or Plasma ID Date Data Source [id number] 06/07/2019 09:17:[address] [facility] Name Value Range Interpretation Description Data Sup porting Code Source(s) Document(s ) Urea 65 mg/dL [place] nitrogen Hospital [Mass/volume ] in Serum or Plasma ID Date Data Source [id number] 06/07/2019 09:17:[address] [facility] Name Value Range Interpretation Code Description Data Sharon rce(s) Supporting Document(s ) Anion gap in 21 [place] Serum or Hospital Plasma ID Date Data Source [id number] 06/07/2019 09:17:[address] [facility] Name Value Range Interpretation Description Data Sup porting Code Source(s) Document(s ) Carbon 25 mmol/L [place] dioxide, Hospital total [Moles/volu me] in Serum or Plasma ID Date Data Source [id number] 06/07/2019 09:17:[address] [facility] Name Value Range Interpretation Description Data Sup porting Code Source(s) Document(s ) Chloride 100 [place] [Moles/volum mmol/L Hospital e] in Serum or Plasma ID Date Data Source [id number] 06/07/2019 09:17:[address] [facility] Name Value Range Interpretation Description Data Sup porting Code Source(s) Document(s ) Potassium 5.1 [place] [Moles/volume mmol/L Hospital ] in Serum or Plasma ID Date Data Source [id number] 06/07/2019 09:17:[address] [facility] Name Value Range Interpretation Description Data Sup porting Code Source(s) Document(s ) Sodium 141 mmol/L [place] [Moles/volu Hospital fl] in Serum or Plasma ID Date Data Source [id number] 06/07/2019 09:17:[address] [facility] Name Value Range Interpretation Description Data Sup porting Code Source(s) Document(s ) Glucose 75 mg/dL [place] [Mass/volume [facility] ] in Serum or Plasma ID Date Data Source [id number] 06/07/2019 09:17:[address] [facility] THERAPEUTIC RANGES:UNFRACTIONATED HEPARI N THERAPY: 60-90 SECONDSARGATROBAN THERAPY: 49-99 SECONDS Name Value Range Interpretation Description Data Sup porting Code Source(s) Document(s ) aPTT in 33.[address] [place] Platelet poor [facility] plasma by Coagulation assay ID Date Data Source [id number] 06/07/2019 09:17:[address] [facility] THERAPEUTIC RANGE FOR STANDARD ORALANTIC OAGULANT THERAPY: 2.0-3.0THERAPEUTIC RANGE FOR HIGH DOSE ORALANTICOAGULANT THERAPY (MECHANICAL HEARTVALVE REPLACEMENT): 2.5-3.5 Name Value Range Interpretation Description Data Sup porting Code Source(s) Document(s ) INR in Platelet 1.0 [place] poor plasma by Hospital Coagulation assay ID Date Data Source [id number] 06/07/2019 09:17:[address] [facility] Name Value Range Interpretation Description Data Sup porting Code Source(s) Document(s ) PT panel - 11.6 s [place] Platelet poor Hospital plasma by Coagulation assay ID Date Data Source [id number] 06/07/2019 09:17:[address] [facility] Name Value Range Interpretation Code Description Data Supporting Source(s) Document(s ) NUCLEATED RBCS 0.0 % [place] (AUTO Hospital DIFF%)DIS ID Date Data Source [id number] 06/07/2019 09:17:[address] [facility] Name Value Range Interpretation Description Data Sup porting Code Source(s) Document(s ) Differential MANUAL [place] cell count Hospital method - Blood ID Date Data Source [id number] 06/07/2019 09:17:00 AM EST [facility] Name Value Range Interpretation Code Description Data Sharon rce(s) Supporting Document(s ) Cells 100 [facility] Hospital Total [#] in Blood ID Date Data Source [id number] 06/07/2019 09:17:[address] [facility] PLT ESTIMATE SLIGHTLY DECREASED Name Value Range Interpretation Description Data Sup porting Code Source(s) Document(s ) PLATELET PRESENT [place] COMMENT Hospital ID Date Data Source [id number] 06/07/2019 09:17:[address] [facility] NEUT VACUOLES PRESENT Name Value Range Interpretation Code Description Data Supporting Source(s) Document(s ) WBC COMMENT PRESENT [facility] ID Date Data Source [id number] 06/07/2019 09:17:[address] [facility] Name Value Range Interpretation Code Description Data Supporting Source(s) Document(s ) POLYCHROMASIA OCC [facility] ID Date Data Source [id number] 06/07/2019 09:17:[address] [facility] Name Value Range Interpretation Code Description Data Sharon rce(s) Supporting Document(s ) HYPOCHROMIA OCC [facility] ID Date Data Source [id number] 06/07/2019 09:17:[address] [facility] Name Value Range Interpretation Code Description Data Sharon rce(s) Supporting Document(s ) MACROCYTOSIS 1+ [facility] ID Date Data Source [id number] 06/07/2019 09:17:[address] [facility] Name Value Range Interpretation Code Description Data Sharon rce(s) Supporting Document(s ) ANISOCYTOSIS [facility] ID Date Data Source [id number] 06/07/2019 09:17:00 AM [facility] Value Range Interpretation Description Data Sup porting Code Source(s) Document(s ) Basophils 0.10 [place] [#/volume] in 10*3/uL Hospital Blood by Manual count ID Date Data Source [id number] 06/07/2019 09:17:[address] [facility] Name Value Range Interpretation Description Data Sup porting Code Source(s) Document(s ) Eosinophils 0.10 [place] [#/volume] in 10*3/uL Hospital Blood by Manual count ID Date Data Source [id number] 06/07/2019 09:17:[address] [facility] Name Value Range Interpretation Description Data Sup porting Code Source(s) Document(s ) Monocytes 0.30 [place] [#/volume] in 10*3/uL Hospital Blood by Manual count ID Date Data Source [id number] 06/07/2019 09:17:[address] [facility] Name Value Range Interpretation Description Data Sup porting Code Source(s) Document(s ) Lymphocytes 0.90 [place] [#/volume] in 10*3/uL Hospital Blood by Manual count ID Date Data Source [id number] 06/07/2019 09:17:00 AM EST [facility] [facility] Name Value Range Interpretation Description Data Sup porting Code Source(s) Document(s ) Neutrophils 3.55 [place] [#/volume] in 10*3/uL Hospital Blood by Manual count ID Date Data Source [id number] 06/07/2019 09:17:00 AM EST [facility] Name Value Range Interpretation Description Data Sup porting Code Source(s) Document(s ) Metamyelocytes/ 1 % [place] 100 leukocytes Hospital in Blood by Manual count ID Date Data Source [id number] 06/07/2019 09:17:00 AM EST [facility] [facility] Value Range Interpretation Description Data Sup porting Code Source(s) Document(s ) Basophils/100 2 % [place] leukocytes in Hospital Blood by Manual count ID Date Data Source [id number] 06/07/2019 09:17:00 AM EST [facility] Name Value Range Interpretation Description Data Sup porting Code Source(s) Document(s ) Eosinophils/100 2 % [place] leukocytes in Hospital Blood by Manual count ID Date Data Source [id number] 06/07/2019 09:17:00 AM EST [facility] Name Value Range Interpretation Description Data Sup porting Code Source(s) Document(s ) Monocytes/100 6 % [place] leukocytes in Hospital Blood by Manual count ID Date Data Source [id number] 06/07/2019 09:17:00 AM EST [facility] Name Value Range Interpretation Description Data Sup porting Code Source(s) Document(s ) Lymphocytes/100 18 % [place] leukocytes in Hospital Blood by Manual count ID Date Data Source [id number] 06/07/2019 09:17:00 AM EST [facility] Name Value Range Interpretation Description Data Sup porting Code Source(s) Document(s ) Neutrophils/100 70 % [place] leukocytes in Hospital Blood by Manual count ID Date Data Source [id number] 06/07/2019 09:17:00 AM [facility] Value Range Interpretation Description Data Sup porting Code Source(s) Document(s ) Platelet mean 12.2 fL [place] volume Hospital [Entitic volume] in Blood by Automated count ID Date Data Source [id number] 06/07/2019 09:17:00 AM [facility] Value Range Interpretation Description Data Sup porting Code Source(s) Document(s ) Platelets 85 [place] [#/volume] in 10*3/uL Hospital Blood by Automated count ID Date Data Source [id number] 06/07/2019 09:17:00 AM [facility] Value Range Interpretation Description Data Sup porting Code Source(s) Document(s ) Erythrocyte 14.6 % [place] distribution Hospital width [Ratio] by Automated count ID Date Data Source [id number] 06/07/2019 09:17:00 AM [facility] Value Range Interpretation Description Data Sup porting Code Source(s) Document(s ) Erythrocyte mean 32.1 [place] corpuscular g/dL Hospital hemoglobin concentration [Mass/volume] by Automated count ID Date Data Source [id number] 06/07/2019 09:17:00 AM [facility] Value Range Interpretation Description Data Sup porting Code Source(s) Document(s ) [facility] [Entitic mass] by Automated count ID Date Data Source [id number] 06/07/2019 09:17:00 AM [facility] Value Range Interpretation Description Data Sup porting Code Source(s) Document(s ) Erythrocyte 104.3 fL [place] mean Hospital corpuscular volume [Entitic volume] by Automated count ID Date Data Source [id number] 06/07/2019 09:17:[address] [facility] Name Value Range Interpretation Description Data Sup porting Code Source(s) Document(s ) Hematocrit 29.3 % [place] [Volume Hospital Fraction] of Blood by Automated count ID Date Data Source [id number] 06/07/2019 09:17:[address] [facility] Name Value Range Interpretation Description Data Sup porting Code Source(s) Document(s ) Hemoglobin 9.4 g/dL [place] [Mass/volume] Hospital in Blood ID Date Data Source [id number] 06/07/2019 09:17:[address] [facility] Name Value Range Interpretation Description Data Sup porting Code Source(s) Document(s ) Erythrocytes 2.81 [place] [#/volume] in 10*6/uL Hospital Blood by Automated count ID Date Data Source [id number] 06/07/2019 09:17:[address] [facility] Name Value Range Interpretation Description Data Sup porting Code Source(s) Document(s ) Leukocytes 5.0 [place] [#/volume] in 10*3/uL Hospital Blood by Automated count ID Date Data Source [id number] 06/07/2019 09:17:[address] [facility] Name Value Range Interpretation Code Description Data Sharon rce(s) Supporting Document(s ) Urea 8.7 [place] nitrogen/Cre Hospital atinine [Mass Ratio] in Serum or Plasma ID Date Data Source [id number] 06/07/2019 09:17:[address] [facility] NOTIFICATION AND READ BACK OF CRITICAL R ESULTS TO THOMAS MAYFIELD RN @ [facility] AT 0956 ON 06/07/19 BY Ruma Manley.REPORTED CRITI MARCI VALUES SHOULD BE INTERPRETED WITHIN CLINICAL CONTEXT. Name Value Range Interpretation Description Data Sup porting Code Source(s) Document(s ) Creatinine 7.5 mg/dL [place] [Mass/volume] Hospital in Serum or Plasma ID Date Data Source [id number] 06/07/2019 09:17:[address] [facility] Name Value Range Interpretation Description Data Sup porting Code Source(s) Document(s ) Urea 65 mg/dL [place] nitrogen Hospital [Mass/volume ] in Serum or Plasma ID Date Data Source [id number] 06/07/2019 09:17:[address] [facility] Name Value Range Interpretation Code Description Data Sharon rce(s) Supporting Document(s ) Anion gap in 21 [place] Serum or Hospital Plasma ID Date Data Source [id number] 06/07/2019 09:17:00 AM [facility] Value Range Interpretation Description Data Sup porting Code Source(s) Document(s ) Carbon 25 mmol/L [place] dioxide, Hospital total [Moles/volu me] in Serum or Plasma ID Date Data Source [id number] 06/07/2019 09:17:[address] [facility] Name Value Range Interpretation Description Data Sup porting Code Source(s) Document(s ) Chloride 100 [place] [Moles/volum mmol/L Hospital e] in Serum or Plasma ID Date Data Source [id number] 06/07/2019 09:17:[address] [facility] Name Value Range Interpretation Description Data Sup porting Code Source(s) Document(s ) Potassium 5.1 [place] [Moles/volume mmol/L Hospital ] in Serum or Plasma ID Date Data Source [id number] 06/07/2019 09:17:[address] [facility] Name Value Range Interpretation Description Data Sup porting Code Source(s) Document(s ) Sodium 141 mmol/L [place] [Moles/volu Hospital me] in Serum or Plasma ID Date Data Source [id number] 06/07/2019 09:17:[address] [facility] Name Value Range Interpretation Description Data Sup porting Code Source(s) Document(s ) Glucose 75 mg/dL [place] [Mass/volume [facility] ] in Serum or Plasma ID Date Data Source [id number] 06/07/2019 09:17:[address] [facility] THERAPEUTIC RANGES:UNFRACTIONATED HEPARI N THERAPY: 60-90 SECONDSARGATROBAN THERAPY: 49-99 SECONDS Name Value Range Interpretation Description Data Sup porting Code Source(s) Document(s ) aPTT in 33.[address] [place] [address] [facility] plasma by Coagulation assay ID Date Data Source [id number] 06/07/2019 09:17:[address] [facility] THERAPEUTIC RANGE FOR STANDARD ORALANTIC OAGULANT THERAPY: 2.0-3.0THERAPEUTIC RANGE FOR HIGH DOSE ORALANTICOAGULANT THERAPY (MECHANICAL HEARTVALVE REPLACEMENT): 2.5-3.5 Name Value Range Interpretation Description Data Sup porting Code Source(s) Document(s ) INR in Platelet 1.0 [place] poor plasma by Hospital Coagulation assay ID Date Data Source [id number] 06/07/2019 09:17:[address] [facility] Name Value Range Interpretation Description Data Sup porting Code Source(s) Document(s ) PT panel - 11.6 s [place] Platelet poor [facility] plasma by Coagulation assay ID Date Data Source [id number] 06/07/2019 09:17:[address] [facility] Name Value Range Interpretation Code Description Data Supporting Source(s) Document(s ) NUCLEATED RBCS 0.0 % [place] (AUTO Hospital DIFF%)DIS ID Date Data Source [id number] 06/07/2019 09:17:[address] [facility] Name Value Range Interpretation Description Data Sup porting Code Source(s) Document(s ) Differential MANUAL [place] cell count Hospital method - Blood ID Date Data Source [id number] 06/07/2019 09:17:[address] [facility] Name Value Range Interpretation Code Description Data Sharon rce(s) Supporting Document(s ) Cells 100 [facility] Hospital Total [#] in Blood ID Date Data Source [id number] 06/07/2019 09:17:[address] [facility] PLT ESTIMATE SLIGHTLY DECREASED Name Value Range Interpretation Description Data Sup porting Code Source(s) Document(s ) PLATELET PRESENT [place] COMMENT Hospital ID Date Data Source [id number] 06/07/2019 09:17:[address] [facility] NEUT VACUOLES PRESENT Name Value Range Interpretation Code Description Data Supporting Source(s) Document(s ) WBC COMMENT PRESENT [facility] ID Date Data Source [id number] 06/07/2019 09:17:[address] [facility] Name Value Range Interpretation Code Description Data Supporting Source(s) Document(s ) POLYCHROMASIA [facility] ID Date Data Source [id number] 06/07/2019 09:17:[address] [facility] Name Value Range Interpretation Code Description Data Sharon rce(s) Supporting Document(s ) HYPOCHROMIA [facility] ID Date Data Source [id number] 06/07/2019 09:17:[address] [facility] Name Value Range Interpretation Code Description Data Sharon rce(s) Supporting Document(s ) MACROCYTOSIS 1+ [facility] ID Date Data Source [id number] 06/07/2019 09:17:[address] [facility] Name Value Range Interpretation Code Description Data Sharon rce(s) Supporting Document(s ) ANISOCYTOSIS OCC [facility] ID Date Data Source [id number] 06/07/2019 09:17:00 AM EST [facility] Name Value Range Interpretation Description Data Sup porting Code Source(s) Document(s ) Basophils 0.10 [place] [#/volume] in 10*3/uL Hospital Blood by Manual count ID Date Data Source [id number] 06/07/2019 09:17:00 AM EST [facility] Name Value Range Interpretation Description Data Sup porting Code Source(s) Document(s ) Eosinophils 0.10 [place] [#/volume] in 10*3/uL Hospital Blood by Manual count ID Date Data Source [id number] 06/07/2019 09:17:00 AM EST [facility] Name Value Range Interpretation Description Data Sup porting Code Source(s) Document(s ) Monocytes 0.30 [place] [#/volume] in 10*3/uL Hospital Blood by Manual count ID Date Data Source [id number] 06/07/2019 09:17:[address] [facility] Name Value Range Interpretation Description Data Sup porting Code Source(s) Document(s ) Lymphocytes 0.90 [place] [#/volume] in 10*3/uL Hospital Blood by Manual count ID Date Data Source [id number] 06/07/2019 09:17:[address] [facility] Name Value Range Interpretation Description Data Sup porting Code Source(s) Document(s ) Neutrophils 3.55 [place] [#/volume] in 10*3/uL Hospital Blood by Manual count ID Date Data Source [id number] 06/07/2019 09:17:[address] [facility] Name Value Range Interpretation Description Data Sup porting Code Source(s) Document(s ) Metamyelocytes/ 1 % [place] 100 leukocytes Hospital in Blood by Manual count ID Date Data Source [id number] 06/07/2019 09:17:00 AM EST [facility] Name Value Range Interpretation Description Data Sup porting Code Source(s) Document(s ) Basophils/100 2 % [place] leukocytes in Hospital Blood by Manual count ID Date Data Source [id number] 06/07/2019 09:17:00 AM EST [facility] Name Value Range Interpretation Description Data Sup porting Code Source(s) Document(s ) Eosinophils/100 2 % [place] leukocytes in Hospital Blood by Manual count ID Date Data Source [id number] 06/07/2019 09:17:00 AM EST [facility] Value Range Interpretation Description Data Sup porting Code Source(s) Document(s ) Monocytes/100 6 % [place] leukocytes in Hospital Blood by Manual count ID Date Data Source [id number] 06/07/2019 09:17:00 AM EST [facility] Name Value Range Interpretation Description Data Sup porting Code Source(s) Document(s ) Lymphocytes/100 18 % [place] leukocytes in Hospital Blood by Manual count ID Date Data Source [id number] 06/07/2019 09:17:00 AM [facility] Value Range Interpretation Description Data Sup porting Code Source(s) Document(s ) Neutrophils/100 70 % [place] leukocytes in Hospital Blood by Manual count ID Date Data Source [id number] 06/07/2019 09:17:00 AM [facility] Value Range Interpretation Description Data Sup porting Code Source(s) Document(s ) Platelet mean 12.2 fL [place] volume [facility] [Entitic volume] in Blood by Automated count ID Date Data Source [id number] 05/23/2019 06:27:[address] [facility] Name Value Range Interpretation Description Data Sup porting Code Source(s) Document(s ) Magnesium 2.5 mg/dL [place] [Mass/volume] Hospital in Serum or Plasma ID Date Data Source [id number] 05/23/2019 06:27:[address] [facility] Name Value Range Interpretation Code Description Data Sharon rce(s) Supporting Document(s ) TEARDROP OCC [facility] Hospital ID Date Data Source [id number] 05/23/2019 06:27:[address] [facility] Name Value Range Interpretation Code Description Data Sharon rce(s) Supporting Document(s ) OVALOCYTES 1+ [place] [facility] ID Date Data Source [id number] 05/23/2019 06:27:[address] [facility] Name Value Range Interpretation Description Data Sup porting Code Source(s) Document(s ) Magnesium 2.5 mg/dL [place] [Mass/volume] Hospital in Serum or Plasma ID Date Data Source [id number] 05/23/2019 06:27:[address] [facility] Name Value Range Interpretation Code Description Data Sharon rce(s) Supporting Document(s ) TEARDROP [facility] Hospital ID Date Data Source [id number] 05/23/2019 06:27:[address] [facility] Name Value Range Interpretation Code Description Data Sharon rce(s) Supporting Document(s ) OVALOCYTES 1+ [place] Hospital ID Date Data Source [id number] 05/23/2019 06:27:[address] [facility] Name Value Range Interpretation Description Data Sup porting Code Source(s) Document(s ) Magnesium 2.5 mg/dL [place] [Mass/volume] Hospital in Serum or Plasma ID Date Data Source [id number] 05/23/2019 06:27:[address] [facility] Name Value Range Interpretation Description Data Sup porting Code Source(s) Document(s ) Aspartate 12 U/L [place] aminotransferase [place] [Enzymatic Hospital activity/volume] in Serum or Plasma ID Date Data Source [id number] 05/23/2019 06:27:[address] [facility] Name Value Range Interpretation Description Data Sup porting Code Source(s) Document(s ) Alanine 8 U/L [place] aminotransferase Hospital [Enzymatic activity/volume] in Serum or Plasma ID Date Data Source [id number] 05/23/2019 06:27:00 AM [facility] Value Range Interpretation Description Data Sup porting Code Source(s) Document(s ) Alkaline 113 U/L [place] phosphatase Hospital [Enzymatic activity/volume ] in Serum or Plasma ID Date Data Source [id number] 05/23/2019 06:27:[address] [facility] Name Value Range Interpretation Description Data Sup porting Code Source(s) Document(s ) Bilirubin.t 0.2 mg/dL [facility] [Mass/volum e] in Serum or Plasma ID Date Data Source [id number] 05/23/2019 06:27:[address] [facility] Name Value Range Interpretation Code Description Data Sharon rce(s) Supporting Document(s ) Albumin/Glob 1.3 [place] ulin [Mass Hospital Ratio] in Serum or Plasma ID Date Data Source [id number] 05/23/2019 06:27:[address] [facility] Name Value Range Interpretation Description Data Sup porting Code Source(s) Document(s ) Albumin 3.1 g/dL [place] [Mass/volume Hospital ] in Serum or Plasma ID Date Data Source [id number] 05/23/2019 06:27:[address] [facility] Name Value Range Interpretation Description Data Sup porting Code Source(s) Document(s ) Protein 5.5 g/dL [place] [Mass/volume Hospital ] in Serum or Plasma ID Date Data Source [id number] 05/23/2019 06:27:[address] [facility] Name Value Range Interpretation Description Data Sup porting Code Source(s) Document(s ) Calcium 7.3 mg/dL [place] [Mass/volume Hospital ] in Serum or Plasma ID Date Data Source [id number] 05/23/2019 06:27:[address] [facility] Name Value Range Interpretation Code Description Data Sharon rce(s) Supporting Document(s ) Urea 5.3 [place] nitrogen/Cre Hospital atinine [Mass Ratio] in Serum or Plasma ID Date Data Source [id number] 05/23/2019 06:27:[address] [facility] Name Value Range Interpretation Description Data Sup porting Code Source(s) Document(s ) Creatinine 3.8 mg/dL [place] [Mass/volume] Hospital in Serum or Plasma ID Date Data Source [id number] 05/23/2019 06:27:[address] [facility] Name Value Range Interpretation Description Data Sup porting Code Source(s) Document(s ) Urea 20 mg/dL [place] nitrogen Hospital [Mass/volume ] in Serum or Plasma ID Date Data Source [id number] 05/23/2019 06:27:[address] [facility] Name Value Range Interpretation Code Description Data Sharon rce(s) Supporting Document(s ) Anion gap in 10 [place] Serum or Hospital Plasma ID Date Data Source [id number] 05/23/2019 06:27:00 AM EST [place] [facility] Name Value Range Interpretation Description Data Sup porting Code Source(s) Document(s ) Carbon 32 mmol/L [place] dioxide, Hospital total [Moles/volu me] in Serum or Plasma ID Date Data Source [id number] 05/23/2019 06:27:00 AM EST [place] [facility] Name Value Range Interpretation Description Data Sup porting Code Source(s) Document(s ) Chloride 99 mmol/L [place] [Moles/volum Hospital e] in Serum or Plasma ID Date Data Source [id number] 05/23/2019 06:27:00 AM EST [place] [facility] Name Value Range Interpretation Description Data Sup porting Code Source(s) Document(s ) Potassium 3.8 [place] [Moles/volume mmol/L Hospital ] in Serum or Plasma ID Date Data Source [id number] 05/23/2019 06:27:00 AM EST [place] [facility] Name Value Range Interpretation Description Data Sup porting Code Source(s) Document(s ) Sodium 137 mmol/L [place] [Moles/volu Hospital me] in Serum or Plasma ID Date Data Source [id number] 05/23/2019 06:27:00 AM EST [place] [facility] Name Value Range Interpretation Description Data Sup porting Code Source(s) Document(s ) Glucose 77 mg/dL [place] [Mass/volume Hospital ] in Serum or Plasma ID Date Data Source [id number] 05/23/2019 06:27:00 AM EST [place] [facility] Name Value Range Interpretation Code Description Data Supporting Source(s) Document(s ) NUCLEATED RBCS 0.0 % [place] (AUTO Hospital DIFF%)DIS ID Date Data Source [id number] 05/23/2019 06:27:00 AM EST [place] [facility] Name Value Range Interpretation Description Data Sup porting Code Source(s) Document(s ) Differential MANUAL [place] cell count Hospital method - Blood ID Date Data Source [id number] 05/23/2019 06:27:00 AM EST [facility] Name Value Range Interpretation Code Description Data Sharon rce(s) Supporting Document(s ) Cells [address] [place] [address] [facility] Total [#] in Blood ID Date Data Source [id number] 05/23/2019 06:27:00 AM EST [facility] Name Value Range Interpretation Code Description Data Supporting Source(s) Document(s ) PLATELET NORMAL [place] COMMENT Hospital ID Date Data Source [id number] 05/23/2019 06:27:00 AM EST [facility] Name Value Range Interpretation Code Description Data Sharon rce(s) Supporting Document(s ) TEARDROP OCC [place] CELLS Hospital ID Date Data Source [id number] 05/23/2019 06:27:00 AM EST [facility] Value Range Interpretation Code Description Data Sharon rce(s) Supporting Document(s ) OVALOCYTES 1+ [place] Hospital ID Date Data Source [id number] 05/23/2019 06:27:00 AM EST [facility] Name Value Range Interpretation Code Description Data Supporting Source(s) Document(s ) POLYCHROMASIA 1+ [facility] ID Date Data Source [id number] 05/23/2019 06:27:00 AM [facility] Value Range Interpretation Code Description Data Sharon rce(s) Supporting Document(s ) MACROCYTOSIS 1+ [facility] ID Date Data Source [id number] 05/23/2019 06:27:00 AM EST [facility] Value Range Interpretation Description Data Sup porting Code Source(s) Document(s ) Eosinophils 0.23 [place] [#/volume] in 10*3/uL Hospital Blood by Manual count ID Date Data Source [id number] 05/23/2019 06:27:00 AM EST [facility] Name Value Range Interpretation Description Data Sup porting Code Source(s) Document(s ) Monocytes 0.35 [place] [#/volume] in 10*3/uL Hospital Blood by Manual count ID Date Data Source [id number] 05/23/2019 06:27:00 AM EST [facility] Name Value Range Interpretation Description Data Sup porting Code Source(s) Document(s ) Lymphocytes 0.82 [place] [#/volume] in 10*3/uL Hospital Blood by Manual count ID Date Data Source [id number] 05/23/2019 06:27:00 AM [facility] Value Range Interpretation Description Data Sup porting Code Source(s) Document(s ) Neutrophils 2.50 [place] [#/volume] in 10*3/uL Hospital Blood by Manual count ID Date Data Source [id number] 05/23/2019 06:27:00 AM [facility] Value Range Interpretation Description Data Sup porting Code Source(s) Document(s ) Eosinophils/100 6 % [place] leukocytes in Hospital Blood by Manual count ID Date Data Source [id number] 05/23/2019 06:27:[address] [facility] Name Value Range Interpretation Description Data Sup porting Code Source(s) Document(s ) Monocytes/100 9 % [place] leukocytes in Hospital Blood by Manual count ID Date Data Source [id number] 05/23/2019 06:27:[address] [facility] Name Value Range Interpretation Description Data Sup porting Code Source(s) Document(s ) Lymphocytes/100 21 % [place] leukocytes in Hospital Blood by Manual count ID Date Data Source [id number] 05/23/2019 06:27:00 AM [facility] Value Range Interpretation Description Data Sup porting Code Source(s) Document(s ) Neutrophils/100 64 % [place] leukocytes in Hospital Blood by Manual count ID Date Data Source [id number] 05/23/2019 06:27:00 AM [facility] Value Range Interpretation Description Data Sup porting Code Source(s) Document(s ) Platelet mean 11.5 fL [place] volume Hospital [Entitic volume] in Blood by Automated count ID Date Data Source [id number] 05/23/2019 06:27:00 AM [facility] Value Range Interpretation Description Data Sup porting Code Source(s) Document(s ) Platelets 85 [place] [#/volume] in 10*3/uL [facility] Blood by Automated count ID Date Data Source [id number] 05/23/2019 06:27:00 AM [facility] Value Range Interpretation Description Data Sup porting Code Source(s) Document(s ) Erythrocyte 13.5 % [facility] width [Ratio] by Automated count ID Date Data Source [id number] 05/23/2019 06:27:00 AM [facility] Value Range Interpretation Description Data Sup porting Code Source(s) Document(s ) Erythrocyte mean 31.5 [place] corpuscular g/dL Hospital hemoglobin concentration [Mass/volume] by Automated count ID Date Data Source [id number] 05/23/2019 06:27:00 AM [facility] Value Range Interpretation Description Data Sup porting Code Source(s) Document(s ) [facility] [Entitic mass] by Automated count ID Date Data Source [id number] 05/23/2019 06:27:00 AM EST [place] [facility] Name Value Range Interpretation Description Data Sup porting Code Source(s) Document(s ) Erythrocyte 105.7 fL [place] mean Hospital corpuscular volume [Entitic volume] by Automated count ID Date Data Source [id number] 05/23/2019 06:27:00 AM [facility] Value Range Interpretation Description Data Sup porting Code Source(s) Document(s ) Hematocrit 31.7 % [place] [Volume Hospital Fraction] of Blood by Automated count ID Date Data Source [id number] 05/23/2019 06:27:00 AM [facility] Value Range Interpretation Description Data Sup porting Code Source(s) Document(s ) Hemoglobin 10.0 g/dL [place] [Mass/volume] Hospital in Blood ID Date Data Source [id number] 05/23/2019 06:27:00 AM [facility] Value Range Interpretation Description Data Sup porting Code Source(s) Document(s ) Erythrocytes 3.00 [place] [#/volume] in 10*6/uL Hospital Blood by Automated count ID Date Data Source [id number] 05/23/2019 06:27:00 AM [facility] Value Range Interpretation Description Data Sup porting Code Source(s) Document(s ) Leukocytes 3.9 [place] [#/volume] in 10*3/uL Hospital Blood by Automated count ID Date Data Source [id number] 05/23/2019 06:27:[address] [facility] Name Value Range Interpretation Description Data Sup porting Code Source(s) Document(s ) Magnesium 2.5 mg/dL [place] [Mass/volume] Hospital in Serum or Plasma ID Date Data Source [id number] 05/23/2019 06:27:[address] [facility] Name Value Range Interpretation Description Data Sup porting Code Source(s) Document(s ) Aspartate 12 U/L [facility] [Enzymatic Hospital activity/volume] in Serum or Plasma ID Date Data Source [id number] 05/23/2019 06:27:[address] [facility] Name Value Range Interpretation Description Data Sup porting Code Source(s) Document(s ) Alanine 8 U/L [place] aminotransferase Hospital [Enzymatic activity/volume] in Serum or Plasma ID Date Data Source [id number] 05/23/2019 06:27:[address] [facility] Name Value Range Interpretation Description Data Sup porting Code Source(s) Document(s ) Alkaline 113 U/L [place] phosphatase Hospital [Enzymatic activity/volume ] in Serum or Plasma ID Date Data Source [id number] 05/23/2019 06:27:[address] [facility] Name Value Range Interpretation Description Data Sup porting Code Source(s) Document(s ) Bilirubin.t 0.2 mg/dL [facility] [Mass/volum e] in Serum or Plasma ID Date Data Source [id number] 05/23/2019 06:27:[address] [facility] Name Value Range Interpretation Code Description Data Sharon rce(s) Supporting Document(s ) [facility] in Serum or Plasma ID Date Data Source [id number] 05/23/2019 06:27:[address] [facility] Name Value Range Interpretation Description Data Sup porting Code Source(s) Document(s ) Albumin 3.1 g/dL [place] [Mass/volume Hospital ] in Serum or Plasma ID Date Data Source [id number] 05/23/2019 06:27:[address] [facility] Name Value Range Interpretation Description Data Sup porting Code Source(s) Document(s ) Protein 5.5 g/dL [place] [Mass/volume Hospital ] in Serum or Plasma ID Date Data Source [id number] 05/23/2019 06:27:00 AM EST [place] [facility] Name Value Range Interpretation Description Data Sup porting Code Source(s) Document(s ) Calcium 7.3 mg/dL [place] [Mass/volume Hospital ] in Serum or Plasma ID Date Data Source [id number] 05/23/2019 06:27:00 AM EST [place] [facility] Name Value Range Interpretation Code Description Data Sharon rce(s) Supporting Document(s ) Urea 5.3 [place] nitrogen/Cre Hospital atinine [Mass Ratio] in Serum or Plasma ID Date Data Source [id number] 05/23/2019 06:27:[address] [facility] Name Value Range Interpretation Description Data Sup porting Code Source(s) Document(s ) Creatinine 3.8 mg/dL [place] [Mass/volume] Hospital in Serum or Plasma ID Date Data Source [id number] 05/23/2019 06:27:00 AM EST [place] [facility] Name Value Range Interpretation Description Data Sup porting Code Source(s) Document(s ) Urea 20 mg/dL [place] nitrogen Hospital [Mass/volume ] in Serum or Plasma ID Date Data Source [id number] 05/23/2019 06:27:[address] [facility] Name Value Range Interpretation Code Description Data Sharon rce(s) Supporting Document(s ) Anion gap in 10 [place] Serum or Hospital Plasma ID Date Data Source [id number] 05/23/2019 06:27:[address] [facility] Name Value Range Interpretation Description Data Sup porting Code Source(s) Document(s ) Carbon 32 mmol/L [place] dioxide, Hospital total [Moles/volu me] in Serum or Plasma ID Date Data Source [id number] 05/23/2019 06:27:00 AM EST [place] [facility] Name Value Range Interpretation Description Data Sup porting Code Source(s) Document(s ) Chloride 99 mmol/L [place] [Moles/volum Hospital e] in Serum or Plasma ID Date Data Source [id number] 05/23/2019 06:27:00 AM EST [place] [facility] Name Value Range Interpretation Description Data Sup porting Code Source(s) Document(s ) Potassium 3.8 [place] [Moles/volume mmol/L Hospital ] in Serum or Plasma ID Date Data Source [id number] 05/23/2019 06:27:00 AM EST [facility] Name Value Range Interpretation Description Data Sup porting Code Source(s) Document(s ) Sodium 137 mmol/L [place] [Moles/volu Hospital me] in Serum or Plasma ID Date Data Source [id number] 05/23/2019 06:27:00 AM EST [facility] Name Value Range Interpretation Description Data Sup porting Code Source(s) Document(s ) Glucose 77 mg/dL [place] [Mass/volume Hospital ] in Serum or Plasma ID Date Data Source [id number] 05/23/2019 06:27:00 AM EST [facility] Name Value Range Interpretation Code Description Data Supporting Source(s) Document(s ) NUCLEATED RBCS 0.0 % [place] (AUTO Hospital DIFF%)DIS ID Date Data Source [id number] 05/23/2019 06:27:[address] [facility] Name Value Range Interpretation Description Data Sup porting Code Source(s) Document(s ) Differential MANUAL [place] cell count Hospital method - Blood ID Date Data Source [id number] 05/23/2019 06:27:[address] [facility] Name Value Range Interpretation Code Description Data Sharon rce(s) Supporting Document(s ) Cells 100 [facility] Hospital Total [#] in Blood ID Date Data Source [id number] 05/23/2019 06:27:00 AM EST [facility] Value Range Interpretation Code Description Data Supporting Source(s) Document(s ) PLATELET NORMAL [place] COMMENT Hospital ID Date Data Source [id number] 05/23/2019 06:27:00 AM EST [facility] Name Value Range Interpretation Code Description Data Sharon rce(s) Supporting Document(s ) TEARDROP OCC [place] CELLS Hospital ID Date Data Source [id number] 05/23/2019 06:27:00 AM EST [facility] Value Range Interpretation Code Description Data Sharon rce(s) Supporting Document(s ) OVALOCYTES 1+ [place] [facility] ID Date Data Source [id number] 05/23/2019 06:27:00 AM EST [facility] Value Range Interpretation Code Description Data Supporting Source(s) Document(s ) POLYCHROMASIA 1+ [facility] ID Date Data Source [id number] 05/23/2019 06:27:00 AM EST [facility] Value Range Interpretation Code Description Data Sharon rce(s) Supporting Document(s ) MACROCYTOSIS 1+ [place] [facility] ID Date Data Source [id number] 05/23/2019 06:27:00 AM EST [facility] Value Range Interpretation Description Data Sup porting Code Source(s) Document(s ) Eosinophils 0.23 [place] [#/volume] in 10*3/uL Hospital Blood by Manual count ID Date Data Source [id number] 05/23/2019 06:27:00 AM EST [place] [facility] Name Value Range Interpretation Description Data Sup porting Code Source(s) Document(s ) Monocytes 0.35 [place] [#/volume] in 10*3/uL Hospital Blood by Manual count ID Date Data Source [id number] 05/23/2019 06:27:00 AM EST [facility] Name Value Range Interpretation Description Data Sup porting Code Source(s) Document(s ) Lymphocytes 0.82 [place] [#/volume] in 10*3/uL Hospital Blood by Manual count ID Date Data Source [id number] 05/23/2019 06:27:00 AM EST [facility] Name Value Range Interpretation Description Data Sup porting Code Source(s) Document(s ) Neutrophils 2.50 [place] [#/volume] in 10*3/uL Hospital Blood by Manual count ID Date Data Source [id number] 05/23/2019 06:27:[address] [facility] Name Value Range Interpretation Description Data Sup porting Code Source(s) Document(s ) Eosinophils/100 6 % [place] leukocytes in Hospital Blood by Manual count ID Date Data Source [id number] 05/23/2019 06:27:[address] [facility] Name Value Range Interpretation Description Data Sup porting Code Source(s) Document(s ) Monocytes/100 9 % [place] leukocytes in Hospital Blood by Manual count ID Date Data Source [id number] 05/23/2019 06:27:[address] [facility] Name Value Range Interpretation Description Data Sup porting Code Source(s) Document(s ) Lymphocytes/100 21 % [place] leukocytes in Hospital Blood by Manual count ID Date Data Source [id number] 05/23/2019 06:27:[address] [facility] Name Value Range Interpretation Description Data Sup porting Code Source(s) Document(s ) Neutrophils/100 64 % [place] leukocytes in Hospital Blood by Manual count ID Date Data Source [id number] 05/23/2019 06:27:00 AM [facility] Value Range Interpretation Description Data Sup porting Code Source(s) Document(s ) Platelet mean 11.5 fL [place] volume Hospital [Entitic volume] in Blood by Automated count ID Date Data Source [id number] 05/23/2019 06:27:00 AM [facility] Value Range Interpretation Description Data Sup porting Code Source(s) Document(s ) Platelets 85 [place] [#/volume] in 10*3/uL Hospital Blood by Automated count ID Date Data Source [id number] 05/23/2019 06:27:00 AM [facility] Value Range Interpretation Description Data Sup porting Code Source(s) Document(s ) Erythrocyte 13.5 % [place] distribution Hospital width [Ratio] by Automated count ID Date Data Source [id number] 05/23/2019 06:27:00 AM [facility] Value Range Interpretation Description Data Sup porting Code Source(s) Document(s ) Erythrocyte mean 31.5 [place] corpuscular g/dL Hospital hemoglobin concentration [Mass/volume] by Automated count ID Date Data Source [id number] 05/23/2019 06:27:00 AM [facility] Value Range Interpretation Description Data Sup porting Code Source(s) Document(s ) [facility] [Entitic mass] by Automated count ID Date Data Source [id number] 05/23/2019 06:27:00 AM [facility] Value Range Interpretation Description Data Sup porting Code Source(s) Document(s ) Erythrocyte 105.7 fL [place] mean Hospital corpuscular volume [Entitic volume] by Automated count ID Date Data Source [id number] 05/23/2019 06:27:00 AM [facility] Value Range Interpretation Description Data Sup porting Code Source(s) Document(s ) Hematocrit 31.7 % [place] [Volume Hospital Fraction] of Blood by Automated count ID Date Data Source [id number] 05/23/2019 06:27:00 AM [facility] Value Range Interpretation Description Data Sup porting Code Source(s) Document(s ) Hemoglobin 10.0 g/dL [place] [Mass/volume] Hospital in Blood ID Date Data Source [id number] 05/23/2019 06:27:00 AM [facility] Value Range Interpretation Description Data Sup porting Code Source(s) Document(s ) Erythrocytes 3.00 [place] [#/volume] in 10*6/uL Hospital Blood by Automated count ID Date Data Source [id number] 05/23/2019 06:27:00 AM [facility] Value Range Interpretation Description Data Sup porting Code Source(s) Document(s ) Leukocytes 3.9 [place] [#/volume] in 10*3/uL Hospital Blood by Automated count ID Date Data Source [id number] 05/22/2019 06:44:00 PM EDT [facility] Value Range Interpretation Description Data Sup porting Code Source(s) Document(s ) Methicillin MRSA TARGET White resistant DNA DETECTED [facility] aureus (MRSA) DNA [Presence] in Unspecified specimen by Probe and target amplification method Methicillin PATIENT IS White resistant PRESUMED [facility] [facility] aureus (MRSA) MRSA DNA [Presence] COLONIZATION in Unspecified specimen by Probe and target amplification method ID Date Data Source [id number] 05/22/2019 06:44:00 PM EDT [place] [facility] Name Value Range Interpretation Description Data Sup porting Code Source(s) Document(s ) Methicillin PATIENT IS White resistant PRESUMED [facility] [facility] aureus (MRSA) MRSA DNA [Presence] COLONIZATION in Unspecified specimen by Probe and target amplification method Methicillin MRSA TARGET White resistant DNA DETECTED [facility] aureus (MRSA) DNA [Presence] in Unspecified specimen by Probe and target amplification method ID Date Data Source [id number] 05/22/2019 06:44:00 PM EDT [facility] Name Value Range Interpretation Description Data Sup porting Code Source(s) Document(s ) Methicillin MRSA TARGET White resistant DNA DETECTED [facility] aureus (MRSA) DNA [Presence] in Unspecified specimen by Probe and target amplification method Methicillin PATIENT IS White resistant PRESUMED [place] [facility] aureus (MRSA) MRSA DNA [Presence] COLONIZATION in Unspecified specimen by Probe and target amplification method ID Date Data Source [id number] 05/22/2019 06:44:00 PM EDT [facility] Name Value Range Interpretation Description Data Sup porting Code Source(s) Document(s ) Methicillin MRSA TARGET White resistant DNA DETECTED [facility] aureus (MRSA) DNA [Presence] in Unspecified specimen by Probe and target amplification method Methicillin PATIENT IS White resistant PRESUMED [facility] [facility] aureus (MRSA) MRSA DNA [Presence] COLONIZATION in Unspecified specimen by Probe and target amplification method ID Date Data Source [id number] 05/22/2019 12:02:00 PM EDT [facility] TEST PERFORMED BY [employer] [facility] CHEMILUMIN[employer]CENCE METHOD. Name Value Range Interpretation Description Data Sup porting Code Source(s) Document(s ) Troponin 0.15 [place] I.cardiac ng/mL Hospital [Mass/volume ] in Serum or Plasma ID Date Data Source [id number] 05/22/2019 12:02:00 PM EDT [facility] TEST PERFORMED BY [employer] [facility] CHEMILUMINESCENCE METHOD. Name Value Range Interpretation Description Data Sup porting Code Source(s) Document(s ) Troponin 0.15 [place] I.cardiac ng/mL Hospital [Mass/volume ] in Serum or Plasma ID Date Data Source [id number] 05/22/2019 05:47:00 AM EDT [facility] Value Range Interpretation Description Data Sup porting Code Source(s) Document(s ) Immature 0.02 [place] granulocytes 10*3/uL Hospital [#/volume] in Blood by Automated count ID Date Data Source [id number] 05/22/2019 05:47:00 AM EDT [facility] Value Range Interpretation Description Data Sup porting Code Source(s) Document(s ) Basophils 0.03 [place] [#/volume] in 10*3/uL Hospital Blood by Automated count ID Date Data Source [id number] 05/22/2019 05:47:00 AM EDT [facility] Value Range Interpretation Description Data Sup porting Code Source(s) Document(s ) Eosinophils 0.25 [place] [#/volume] in 10*3/uL Hospital Blood by Automated count ID Date Data Source [id number] 05/22/2019 05:47:00 AM EDT [facility] Value Range Interpretation Description Data Sup porting Code Source(s) Document(s ) Monocytes 0.52 [place] [#/volume] in 10*3/uL Hospital Blood by Automated count ID Date Data Source [id number] 05/22/2019 05:47:00 AM EDT [facility] Name Value Range Interpretation Description Data Sup porting Code Source(s) Document(s ) Lymphocytes 0.71 [place] [#/volume] in 10*3/uL Hospital Blood by Automated count ID Date Data Source [id number] 05/22/2019 05:47:00 AM EDT [facility] Name Value Range Interpretation Description Data Sup porting Code Source(s) Document(s ) Neutrophils 3.72 [place] [#/volume] in 10*3/uL Hospital Blood by Automated count ID Date Data Source [id number] 05/22/2019 05:47:00 AM EDT [facility] Value Range Interpretation Description Data Sup porting Code Source(s) Document(s ) Nucleated 0.0 % [place] erythrocytes/10 Hospital 0 leukocytes [Ratio] in Blood by Automated count ID Date Data Source [id number] 05/22/2019 05:47:00 AM EDT [facility] Value Range Interpretation Description Data Sup porting Code Source(s) Document(s ) Immature 0.4 % [place] granulocytes/10 Hospital 0 leukocytes in Blood by Automated count ID Date Data Source [id number] 05/22/2019 05:47:00 AM EDT [facility] Value Range Interpretation Description Data Sup porting Code Source(s) Document(s ) Basophils/100 0.6 % [place] leukocytes in [facility] Blood by Automated count ID Date Data Source [id number] 05/22/2019 05:47:00 AM EDT [facility] Value Range Interpretation Description Data Sup porting Code Source(s) Document(s ) Eosinophils/100 4.8 % [place] leukocytes in Hospital Blood by Automated count ID Date Data Source [id number] 05/22/2019 05:47:00 AM EDT [facility] Value Range Interpretation Description Data Sup porting Code Source(s) Document(s ) Monocytes/100 9.9 % [place] leukocytes in Hospital Blood by Automated count ID Date Data Source [id number] 05/22/2019 05:47:00 AM EDT [facility] Value Range Interpretation Description Data Sup porting Code Source(s) Document(s ) Lymphocytes/10 13.5 % [place] 0 leukocytes Hospital in Blood by Automated count ID Date Data Source [id number] 05/22/2019 05:47:00 AM EDT [facility] Name Value Range Interpretation Description Data Sup porting Code Source(s) Document(s ) Neutrophils/10 70.8 % [place] 0 leukocytes Hospital in Blood by Automated count ID Date Data Source [id number] 05/22/2019 05:47:00 AM EDT [facility] Name Value Range Interpretation Description Data Sup porting Code Source(s) Document(s ) Immature 0.02 [place] granulocytes 10*3/uL Hospital [#/volume] in Blood by Automated count ID Date Data Source [id number] 05/22/2019 05:47:00 AM EDT [facility] Value Range Interpretation Description Data Sup porting Code Source(s) Document(s ) Basophils 0.03 [place] [#/volume] in 10*3/uL Hospital Blood by Automated count ID Date Data Source [id number] 05/22/2019 05:47:00 AM EDT [facility] Value Range Interpretation Description Data Sup porting Code Source(s) Document(s ) Eosinophils 0.25 [place] [#/volume] in 10*3/uL Hospital Blood by Automated count ID Date Data Source [id number] 05/22/2019 05:47:00 AM EDT [facility] Value Range Interpretation Description Data Sup porting Code Source(s) Document(s ) Monocytes 0.52 [place] [#/volume] in 10*3/uL Hospital Blood by Automated count ID Date Data Source [id number] 05/22/2019 05:47:00 AM EDT [facility] Value Range Interpretation Description Data Sup porting Code Source(s) Document(s ) Lymphocytes 0.71 [place] [#/volume] in 10*3/uL Hospital Blood by Automated count ID Date Data Source [id number] 05/22/2019 05:47:00 AM EDT [facility] Value Range Interpretation Description Data Sup porting Code Source(s) Document(s ) Neutrophils 3.72 [place] [#/volume] in 10*3/uL [facility] Blood by Automated count ID Date Data Source [id number] 05/22/2019 05:47:00 AM EDT [facility] Value Range Interpretation Description Data Sup porting Code Source(s) Document(s ) Nucleated 0.0 % [place] erythrocytes/10 Hospital 0 leukocytes [Ratio] in Blood by Automated count ID Date Data Source [id number] 05/22/2019 05:47:00 AM EDT [facility] Value Range Interpretation Description Data Sup porting Code Source(s) Document(s ) Immature 0.4 % [place] granulocytes/10 Hospital 0 leukocytes in Blood by Automated count ID Date Data Source [id number] 05/22/2019 05:47:00 AM EDT [facility] Value Range Interpretation Description Data Sup porting Code Source(s) Document(s ) Basophils/100 0.6 % [place] leukocytes in Hospital Blood by Automated count ID Date Data Source [id number] 05/22/2019 05:47:00 AM EDT [facility] Value Range Interpretation Description Data Sup porting Code Source(s) Document(s ) Eosinophils/100 4.8 % [place] leukocytes in Hospital Blood by Automated count ID Date Data Source [id number] 05/22/2019 05:47:00 AM EDT [facility] Value Range Interpretation Description Data Sup porting Code Source(s) Document(s ) Monocytes/100 9.9 % [place] leukocytes in Hospital Blood by Automated count ID Date Data Source [id number] 05/22/2019 05:47:00 AM [facility] Name Value Range Interpretation Description Data Sup porting Code Source(s) Document(s ) Lymphocytes/10 13.5 % [place] 0 leukocytes Hospital in Blood by Automated count ID Date Data Source [id number] 05/22/2019 05:47:00 AM EDT [facility] Name Value Range Interpretation Description Data Sup porting Code Source(s) Document(s ) Neutrophils/10 70.8 % [place] 0 leukocytes Hospital in Blood by Automated count ID Date Data Source [id number] 05/22/2019 05:47:00 AM [facility] THERAPEUTIC RANGES:UNFRACTIONATED HEPARI N THERAPY: 60-90 SECONDSARGATROBAN THERAPY: 49-99 SECONDS Name Value Range Interpretation Description Data Sup porting Code Source(s) Document(s ) aPTT in 34.[address] [place] [address] [facility] plasma by Coagulation assay ID Date Data Source [id number] 05/22/2019 05:47:00 AM [facility] THERAPEUTIC RANGE FOR STANDARD ORALANTIC OAGULANT THERAPY: 2.0-3.0THERAPEUTIC RANGE FOR HIGH DOSE ORALANTICOAGULANT THERAPY (MECHANICAL HEARTVALVE REPLACEMENT): 2.5-3.5 Name Value Range Interpretation Description Data Sup porting Code Source(s) Document(s ) INR in Platelet 1.0 [place] poor plasma by Hospital Coagulation assay ID Date Data Source [id number] 05/22/2019 05:47:00 AM [facility] Name Value Range Interpretation Description Data Sup porting Code Source(s) Document(s ) PT panel - 11.4 s [place] [address] [facility] plasma by Coagulation assay ID Date Data Source [id number] 05/22/2019 05:47:00 AM EDT [facility] Name Value Range Interpretation Description Data Sup porting Code Source(s) Document(s ) Immature 0.02 [place] granulocytes 10*3/uL Hospital [#/volume] in Blood by Automated count ID Date Data Source [id number] 05/22/2019 05:47:00 AM EDT [facility] Name Value Range Interpretation Description Data Sup porting Code Source(s) Document(s ) Basophils 0.03 [place] [#/volume] in 10*3/uL Hospital Blood by Automated count ID Date Data Source [id number] 05/22/2019 05:47:00 AM EDT [facility] Name Value Range Interpretation Description Data Sup porting Code Source(s) Document(s ) Eosinophils 0.25 [place] [#/volume] in 10*3/uL Hospital Blood by Automated count ID Date Data Source [id number] 05/22/2019 05:47:00 AM EDT [facility] Name Value Range Interpretation Description Data Sup porting Code Source(s) Document(s ) Monocytes 0.52 [place] [#/volume] in 10*3/uL Hospital Blood by Automated count ID Date Data Source [id number] 05/22/2019 05:47:00 AM EDT [facility] Value Range Interpretation Description Data Sup porting Code Source(s) Document(s ) Lymphocytes 0.71 [place] [#/volume] in 10*3/uL Hospital Blood by Automated count ID Date Data Source [id number] 05/22/2019 05:47:00 AM EDT [facility] Name Value Range Interpretation Description Data Sup porting Code Source(s) Document(s ) Neutrophils 3.72 [place] [#/volume] in 10*3/uL Hospital Blood by Automated count ID Date Data Source [id number] 05/22/2019 05:47:00 AM EDT [facility] Name Value Range Interpretation Description Data Sup porting Code Source(s) Document(s ) Nucleated 0.0 % [place] erythrocytes/10 Hospital 0 leukocytes [Ratio] in Blood by Automated count ID Date Data Source [id number] 05/22/2019 05:47:00 AM EDT [facility] Value Range Interpretation Description Data Sup porting Code Source(s) Document(s ) Immature 0.4 % [place] granulocytes/10 Hospital 0 leukocytes in Blood by Automated count ID Date Data Source [id number] 05/22/2019 05:47:00 AM EDT [facility] Value Range Interpretation Description Data Sup porting Code Source(s) Document(s ) Basophils/100 0.6 % [place] leukocytes in Hospital Blood by Automated count ID Date Data Source [id number] 05/22/2019 05:47:00 AM EDT [facility] Value Range Interpretation Description Data Sup porting Code Source(s) Document(s ) Eosinophils/100 4.8 % [place] leukocytes in Hospital Blood by Automated count ID Date Data Source [id number] 05/22/2019 05:47:00 AM EDT [facility] Value Range Interpretation Description Data Sup porting Code Source(s) Document(s ) Monocytes/100 9.9 % [place] leukocytes in Hospital Blood by Automated count ID Date Data Source [id number] 05/22/2019 05:47:00 AM EDT [facility] Name Value Range Interpretation Description Data Sup porting Code Source(s) Document(s ) Lymphocytes/10 13.5 % [place] 0 leukocytes Hospital in Blood by Automated count ID Date Data Source [id number] 05/22/2019 05:47:00 AM EDT [facility] Name Value Range Interpretation Description Data Sup porting Code Source(s) Document(s ) Neutrophils/10 70.8 % [place] 0 leukocytes Hospital in Blood by Automated count ID Date Data Source [id number] 05/22/2019 05:47:00 AM [facility] THERAPEUTIC RANGES:UNFRACTIONATED HEPARI N THERAPY: 60-90 SECONDSARGATROBAN THERAPY: 49-99 SECONDS Name Value Range Interpretation Description Data Sup porting Code Source(s) Document(s ) aPTT in 34.[address] [place] [address] [facility] plasma by Coagulation assay ID Date Data Source [id number] 05/22/2019 05:47:00 AM [facility] THERAPEUTIC RANGE FOR STANDARD ORALANTIC OAGULANT THERAPY: 2.0-3.0THERAPEUTIC RANGE FOR HIGH DOSE ORALANTICOAGULANT THERAPY (MECHANICAL HEARTVALVE REPLACEMENT): 2.5-3.5 Name Value Range Interpretation Description Data Sup porting Code Source(s) Document(s ) INR in Platelet 1.0 [place] poor plasma by Hospital Coagulation assay ID Date Data Source [id number] 05/22/2019 05:47:00 AM [facility] Name Value Range Interpretation Description Data Sup porting Code Source(s) Document(s ) PT panel - 11.[address] [place] [address] [facility] plasma by Coagulation assay ID Date Data Source [id number] 05/22/2019 [facility] Value Range Interpretation Description Data Sup porting Code Source(s) Document(s ) Immature 0.02 [place] granulocytes 10*3/uL Hospital [#/volume] in Blood by Automated count ID Date Data Source [id number] 05/22/2019 05:47:00 AM [facility] Name Value Range Interpretation Description Data Sup porting Code Source(s) Document(s ) Basophils 0.03 [place] [#/volume] in 10*3/uL Hospital Blood by Automated count ID Date Data Source [id number] 05/22/2019 05:47:00 AM EDT [facility] Value Range Interpretation Description Data Sup porting Code Source(s) Document(s ) Eosinophils 0.25 [place] [#/volume] in 10*3/uL Hospital Blood by Automated count ID Date Data Source [id number] 05/22/2019 05:47:00 AM EDT [facility] Value Range Interpretation Description Data Sup porting Code Source(s) Document(s ) Monocytes 0.52 [place] [#/volume] in 10*3/uL Hospital Blood by Automated count ID Date Data Source [id number] 05/22/2019 05:47:00 AM EDT [facility] Value Range Interpretation Description Data Sup porting Code Source(s) Document(s ) Lymphocytes 0.71 [place] [#/volume] in 10*3/uL Hospital Blood by Automated count ID Date Data Source [id number] 05/22/2019 05:47:00 AM EDT [facility] Value Range Interpretation Description Data Sup porting Code Source(s) Document(s ) Neutrophils 3.72 [place] [#/volume] in 10*3/uL Hospital Blood by Automated count ID Date Data Source [id number] 05/22/2019 05:47:00 AM EDT [facility] Value Range Interpretation Description Data Sup porting Code Source(s) Document(s ) Nucleated 0.0 % [place] erythrocytes/10 Hospital 0 leukocytes [Ratio] in Blood by Automated count ID Date Data Source [id number] 05/22/2019 05:47:00 AM EDT [facility] Value Range Interpretation Description Data Sup porting Code Source(s) Document(s ) Immature 0.4 % [place] granulocytes/10 Hospital 0 leukocytes in Blood by Automated count ID Date Data Source [id number] 05/22/2019 05:47:00 AM EDT [facility] Name Value Range Interpretation Description Data Sup porting Code Source(s) Document(s ) Basophils/100 0.6 % [place] leukocytes in [facility] Blood by Automated count ID Date Data Source [id number] 05/22/2019 05:47:00 AM EDT [facility] Value Range Interpretation Description Data Sup porting Code Source(s) Document(s ) Eosinophils/100 4.8 % [place] leukocytes in Hospital Blood by Automated count ID Date Data Source [id number] 05/22/2019 05:47:00 AM EDT [facility] Value Range Interpretation Description Data Sup porting Code Source(s) Document(s ) Monocytes/100 9.9 % [place] leukocytes in Hospital Blood by Automated count ID Date Data Source [id number] 05/22/2019 05:47:00 AM EDT [facility] Name Value Range Interpretation Description Data Sup porting Code Source(s) Document(s ) Lymphocytes/10 13.5 % [place] 0 leukocytes Hospital in Blood by Automated count ID Date Data Source [id number] 05/22/2019 05:47:00 AM EDT [facility] Value Range Interpretation Description Data Sup porting Code Source(s) Document(s ) Neutrophils/10 70.8 % [place] 0 leukocytes Hospital in Blood by Automated count ID Date Data Source [id number] 05/19/2019 06:07:00 PM EDT [facility] Value Range Interpretation Description Data Sup porting Code Source(s) Document(s ) Platelets DECREASED [place] [#/volume] in Hospital Blood by Estimate ID Date Data Source [id number] 05/19/2019 06:07:00 PM EDT [place] [facility] Name Value Range Interpretation Description Data Sup porting Code Source(s) Document(s ) Platelets DECREASED [place] [#/volume] in Hospital Blood by Estimate ID Date Data Source [id number] 05/19/2019 06:07:00 PM EDT [facility] Value Range Interpretation Description Data Sup porting Code Source(s) Document(s ) Platelets DECREASED [place] [#/volume] in Hospital Blood by Estimate ID Date Data Source [id number] 05/19/2019 06:07:00 PM EDT [facility] Value Range Interpretation Code Description Data Sharon rce(s) Supporting Document(s ) ANISOCYTOSIS 1+ [facility] ID Date Data Source [id number] 05/19/2019 06:07:00 PM EDT [facility] Value Range Interpretation Description Data Sup porting Code Source(s) Document(s ) Basophils 0.04 [place] [#/volume] in 10*3/uL Hospital Blood by Manual count ID Date Data Source [id number] 05/19/2019 06:07:00 PM EDT [facility] Value Range Interpretation Description Data Sup porting Code Source(s) Document(s ) Basophils/100 1 % [place] leukocytes in Hospital Blood by Manual count ID Date Data Source [id number] 05/19/2019 06:07:00 PM EDT [facility] Value Range Interpretation Description Data Sup porting Code Source(s) Document(s ) Platelets DECREASED [place] [#/volume] in Hospital Blood by Estimate ID Date Data Source [id number] 05/19/2019 06:07:00 PM EDT [facility] Value Range Interpretation Code Description Data Sharon rce(s) Supporting Document(s ) ANISOCYTOSIS 1+ [facility] ID Date Data Source [id number] 05/19/2019 06:07:00 PM [facility] Name Value Range Interpretation Description Data Sup porting Code Source(s) Document(s ) Basophils 0.04 [place] [#/volume] in 10*3/uL Hospital Blood by Manual count ID Date Data Source [id number] 05/19/2019 06:07:00 PM [facility] Value Range Interpretation Description Data Sup porting Code Source(s) Document(s ) Basophils/100 1 % [place] leukocytes in Hospital Blood by Manual count ID Date Data Source [id number] 05/19/2019 04:59:00 PM [facility] Sludge Filtration Attendant:LEODAN MONAE Name Value Range Interpretation Description Data Sup porting Code Source(s) Document(s ) Glucose 72 mg/dL [place] [Mass/volume] Hospital in Capillary blood by Glucometer ID Date Data Source [id number] 05/19/2019 04:59:00 PM [facility] Sludge Filtration Attendant:LEODAN MONAE Name Value Range Interpretation Description Data Sup porting Code Source(s) Document(s ) Glucose 72 mg/dL [place] [Mass/volume] [facility] in Capillary blood by Glucometer ID Date Data Source [id number] 04/20/2019 07:01:00 AM [facility] Value Range Interpretation Code Description Data Supporting Source(s) Document(s ) HEP B SURF 15.68 [place] AB QUANT m[IU]/mL Hospital ID Date Data Source [id number] 04/20/2019 07:01:00 AM [facility] Value Range Interpretation Description Data Sup porting Code Source(s) Document(s ) Sodium 141 mmol/L [place] [Moles/volu Hospital fl] in Serum or Plasma ID Date Data Source [id number] 04/20/2019 07:01:00 AM EDT [facility] Name Value Range Interpretation Description Data Sup porting Code Source(s) Document(s ) Glucose 74 mg/dL [place] [Mass/volume Hospital ] in Serum or Plasma ID Date Data Source [id number] [facility] Code Description Data Supporting Source(s) Document(s ) NUCLEATED RBCS 0.0 % [place] (AUTO Hospital DIFF%)DIS ID Date Data Source [id number] 04/20/2019 [facility] Interpretation Description Data Sup porting Code Source(s) Document(s ) Differential AUTOMATED [place] cell count Hospital method - Blood ID Date Data Source [id number] 04/20/2019 [facility] Interpretation Description Data Sup porting Code Source(s) Document(s ) Immature 0.01 [place] granulocytes 10*3/uL Hospital [#/volume] in Blood by Automated count ID Date Data Source [id number] 04/20/2019 [facility] Interpretation Description Data Sup porting Code Source(s) Document(s ) Basophils 0.03 [place] [#/volume] in 10*3/uL Hospital Blood by Automated count ID Date Data Source [id number] 04/20/[facility] Range Interpretation Description Data Sup porting Code Source(s) Document(s ) Eosinophils 0.32 [place] [#/volume] in 10*3/uL Hospital Blood by Automated count ID Date Data Source [id number] 04/20/2019 07:01:00 AM EDT [facility] Value Range Interpretation Description Data Sup porting Code Source(s) Document(s ) Monocytes 0.41 [place] [#/volume] in 10*3/uL Hospital Blood by Automated count ID Date Data Source [id number] 04/20/2019 07:01:00 AM EDT [facility] Value Range Interpretation Description Data Sup porting Code Source(s) Document(s ) Lymphocytes 1.14 [place] [#/volume] in 10*3/uL Hospital Blood by Automated count ID Date Data Source [id number] 04/20/2019 07:01:00 AM EDT [facility] Value Range Interpretation Description Data Sup porting Code Source(s) Document(s ) Neutrophils 2.30 [place] [#/volume] in 10*3/uL [facility] Blood by Automated count ID Date Data Source [id number] 04/20/2019 07:01:00 AM EDT [facility] Value Range Interpretation Description Data Sup porting Code Source(s) Document(s ) Nucleated 0.0 % [place] erythrocytes/10 Hospital 0 leukocytes [Ratio] in Blood by Automated count ID Date Data Source [id number] 04/20/2019 07:01:00 AM EDT [facility] Value Range Interpretation Description Data Sup porting Code Source(s) Document(s ) Immature 0.2 % [place] granulocytes/10 Hospital 0 leukocytes in Blood by Automated count ID Date Data Source [id number] 04/20/2019 07:01:00 AM EDT [facility] Value Range Interpretation Description Data Sup porting Code Source(s) Document(s ) Basophils/100 0.7 % [place] leukocytes in Hospital Blood by Automated count ID Date Data Source [id number] 04/20/2019 07:01:00 AM EDT [place] [facility] Name Value Range Interpretation Description Data Sup porting Code Source(s) Document(s ) Eosinophils/100 7.6 % [place] leukocytes in Hospital Blood by Automated count ID Date Data Source [id number] 04/20/2019 07:01:00 AM EDT [facility] Value Range Interpretation Description Data Sup porting Code Source(s) Document(s ) Monocytes/100 9.7 % [place] leukocytes in Hospital Blood by Automated count ID Date Data Source [id number] 04/20/2019 07:01:00 AM EDT [facility] Value Range Interpretation Description Data Sup porting Code Source(s) Document(s ) Lymphocytes/10 27.1 % [place] 0 leukocytes Hospital in Blood by Automated count ID Date Data Source [id number] 04/20/2019 07:01:00 AM EDT [facility] Name Value Range Interpretation Description Data Sup porting Code Source(s) Document(s ) Neutrophils/10 54.7 % [place] 0 leukocytes Hospital in Blood by Automated count ID Date Data Source [id number] 04/20/2019 07:01:00 AM EDT [facility] Value Range Interpretation Description Data Sup porting Code Source(s) Document(s ) Platelet mean 11.2 fL [place] volume Hospital [Entitic volume] in Blood by Automated count ID Date Data Source [id number] 04/20/2019 07:01:00 AM EDT [facility] Name Value Range Interpretation Description Data Sup porting Code Source(s) Document(s ) Platelets 78 [place] [#/volume] in 10*3/uL Hospital Blood by Automated count ID Date Data Source [id number] 04/20/2019 07:01:00 AM EDT [facility] Value Range Interpretation Description Data Sup porting Code Source(s) Document(s ) Erythrocyte 15.3 % [place] distribution Hospital width [Ratio] by Automated count ID Date Data Source [id number] 04/20/2019 07:01:00 AM [facility] Value Range Interpretation Description Data Sup porting Code Source(s) Document(s ) Erythrocyte mean 29.6 [place] corpuscular g/dL Hospital hemoglobin concentration [Mass/volume] by Automated count ID Date Data Source [id number] 04/20/2019 07:01:00 AM [facility] Value Range Interpretation Description Data Sup porting Code Source(s) Document(s ) Erythrocyte 33.3 pg [facility] corpuscular hemoglobin [Entitic mass] by Automated count ID Date Data Source [id number] 04/20/2019 07:01:00 AM [facility] Value Range Interpretation Description Data Sup porting Code Source(s) Document(s ) Erythrocyte 112.8 fL [facility] corpuscular volume [Entitic volume] by Automated count ID Date Data Source [id number] 04/20/2019 07:01:00 AM [facility] Value Range Interpretation Description Data Sup porting Code Source(s) Document(s ) Hematocrit 31.8 % [place] [Volume Hospital Fraction] of Blood by Automated count ID Date Data Source [id number] 04/20/2019 07:01:00 AM [facility] Value Range Interpretation Description Data Sup porting Code Source(s) Document(s ) Hemoglobin 9.4 g/dL [place] [Mass/volume] Hospital in Blood ID Date Data Source [id number] 04/20/2019 07:01:00 AM [facility] Value Range Interpretation Description Data Sup porting Code Source(s) Document(s ) Erythrocytes 2.82 [place] [#/volume] in 10*6/uL Hospital Blood by Automated count ID Date Data Source [id number] 04/20/2019 07:01:00 AM [facility] Name Value Range Interpretation Description Data Sup porting Code Source(s) Document(s ) Leukocytes 4.2 [place] [#/volume] in 10*3/uL Hospital Blood by Automated count ID Date Data Source [id number] 04/20/2019 [facility] Value Range Interpretation Code Description Data Supporting Source(s) Document(s ) HEP B SURF 15.68 [place] AB QUANT m[IU]/mL Hospital ID Date Data Source [id number] 04/20/2019 07:01:00 AM [facility] Name Value Range Interpretation Description Data Sup porting Code Source(s) Document(s ) Hepatitis B NON-REACT [place] virus surface [facility] Ag [Presence] in Serum ID Date Data Source [id number] 04/20/2019 07:01:00 AM [facility] Name Value Range Interpretation Description Data Sup porting Code Source(s) Document(s ) Folate 10.0 ng/mL [place] [Mass/volum Hospital e] in Serum or Plasma ID Date Data Source [id number] 04/20/2019 [facility] Value Range Interpretation Description Data Sup porting Code Source(s) Document(s ) Cobalamin 580 pg/mL [place] (Vitamin B12) Hospital [Mass/volume] in Serum or Plasma ID Date Data Source [id number] 04/20/2019 07:01:00 AM [facility] TEST PERFORMED BY [facility] [facility] [employer] [facility]ENS[facility] CHEMILUMINESCENCE METHOD. Name Value Range Interpretation Description Data Sup porting Code Source(s) Document(s ) Troponin 0.05 [place] I.cardiac ng/mL Hospital [Mass/volume ] in Serum or Plasma ID Date Data Source [id number] 04/20/2019 07:01:00 AM [facility] Name Value Range Interpretation Description Data Sup porting Code Source(s) Document(s ) Phosphate 8.8 mg/dL [place] [Mass/volume] Hospital in Serum or Plasma ID Date Data Source [id number] 04/20/2019 07:01:00 AM [facility] Name Value Range Interpretation Description Data Sup porting Code Source(s) Document(s ) Magnesium 2.4 mg/dL [place] [Mass/volume] Hospital in Serum or Plasma ID Date Data Source [id number] 04/20/2019 07:01:00 AM [facility] Name Value Range Interpretation Description Data Sup porting Code Source(s) Document(s ) Calcium 7.5 mg/dL [place] [Mass/volume Hospital ] in Serum or Plasma ID Date Data Source [id number] 04/20/2019 07:01:00 AM [facility] Name Value Range Interpretation Code Description Data Sharon rce(s) Supporting Document(s ) Urea 6.4 [place] nitrogen/Cre Hospital atinine [Mass Ratio] in Serum or Plasma ID Date Data Source [id number] 04/20/2019 07:01:00 AM [facility] NOTIFICATION AND READ BACK OF CRITICAL R ESULTS TO NATALIE TIWARI RN W4F AT 0827 ON 04/20/19 BY Janel Barrera.REPORTED CRITI MARCI VALUES SHOULD BE INTERPRETED WITHIN CLINICAL CONTEXT. Name Value Range Interpretation Description Data Sup porting Code Source(s) Document(s ) Creatinine 6.9 mg/dL [place] [Mass/volume] Hospital in Serum or Plasma ID Date Data Source [id number] 04/20/2019 07:01:00 AM EDT [facility] Name Value Range Interpretation Description Data Sup porting Code Source(s) Document(s ) Urea 44 mg/dL [place] nitrogen Hospital [Mass/volume ] in Serum or Plasma ID Date Data Source [id number] 04/20/2019 07:01:00 AM EDT [facility] Name Value Range Interpretation Code Description Data Sharon rce(s) Supporting Document(s ) Anion gap in [address] [place] [address] [facility] Plasma ID Date Data Source [id number] 04/20/2019 07:01:00 AM EDT [facility] Name Value Range Interpretation Description Data Sup porting Code Source(s) Document(s ) Carbon 24 mmol/L [place] dioxide, Hospital total [Moles/volu me] in Serum or Plasma ID Date Data Source [id number] 04/20/2019 07:01:00 AM EDT [facility] Name Value Range Interpretation Description Data Sup porting Code Source(s) Document(s ) Chloride 103 [place] [Moles/volum mmol/L Hospital e] in Serum or Plasma ID Date Data Source [id number] 04/20/2019 07:01:00 AM EDT [facility] Name Value Range Interpretation Description Data Sup porting Code Source(s) Document(s ) Potassium 4.9 [place] [Moles/volume mmol/L Hospital ] in Serum or Plasma ID Date Data Source [id number] 04/20/2019 07:01:00 AM EDT [facility] Name Value Range Interpretation Description Data Sup porting Code Source(s) Document(s ) Sodium 141 mmol/L [place] [Moles/volu Hospital me] in Serum or Plasma ID Date Data Source [id number] 04/20/2019 07:01:00 AM EDT [facility] Name Value Range Interpretation Description Data Sup porting Code Source(s) Document(s ) Glucose 74 mg/dL [place] [Mass/volume Hospital ] in Serum or Plasma ID Date Data Source [id number] 04/20/2019 07:01:00 AM EDT [facility] Value Range Interpretation Code Description Data Supporting Source(s) Document(s ) NUCLEATED RBCS 0.0 % [place] (AUTO Hospital DIFF%)DIS ID Date Data Source [id number] 04/20/2019 07:01:00 AM EDT [facility] Value Range Interpretation Description Data Sup porting Code Source(s) Document(s ) Differential AUTOMATED [place] cell count [facility] method - Blood ID Date Data Source [id number] 04/20/2019 07:01:00 AM EDT [facility] Value Range Interpretation Description Data Sup porting Code Source(s) Document(s ) Immature 0.01 [place] granulocytes 10*3/uL Hospital [#/volume] in Blood by Automated count ID Date Data Source [id number] 04/20/2019 07:01:00 AM EDT [facility] Value Range Interpretation Description Data Sup porting Code Source(s) Document(s ) Basophils 0.03 [place] [#/volume] in 10*3/uL Hospital Blood by Automated count ID Date Data Source [id number] 04/[facility] Description Data Sup porting Code Source(s) Document(s ) Eosinophils 0.32 [place] [#/volume] in 10*3/uL Hospital Blood by Automated count ID Date Data Source [id number] 04/20/2019 07:01:00 AM EDT [facility] Name Value Range Interpretation Description Data Sup porting Code Source(s) Document(s ) Monocytes 0.41 [place] [#/volume] in 10*3/uL Hospital Blood by Automated count ID Date Data Source [id number] 04/20/2019 07:01:00 AM EDT [facility] Value Range Interpretation Description Data Sup porting Code Source(s) Document(s ) Lymphocytes 1.14 [place] [#/volume] in 10*3/uL Hospital Blood by Automated count ID Date Data Source [id number] 04/20/2019 07:01:00 AM EDT [facility] Value Range Interpretation Description Data Sup porting Code Source(s) Document(s ) Neutrophils 2.30 [place] [#/volume] in 10*3/uL Hospital Blood by Automated count ID Date Data Source [id number] 04/20/2019 07:01:00 AM EDT [facility] Value Range Interpretation Description Data Sup porting Code Source(s) Document(s ) Nucleated 0.0 % [place] erythrocytes/10 Hospital 0 leukocytes [Ratio] in Blood by Automated count ID Date Data Source [id number] 04/20/2019 07:01:00 AM EDT [facility] Value Range Interpretation Description Data Sup porting Code Source(s) Document(s ) Immature 0.2 % [place] granulocytes/10 Hospital 0 leukocytes in Blood by Automated count ID Date Data Source [id number] 04/20/2019 07:01:00 AM EDT [facility] Value Range Interpretation Description Data Sup porting Code Source(s) Document(s ) Basophils/100 0.7 % [place] leukocytes in Hospital Blood by Automated count ID Date Data Source [id number] 04/20/2019 07:01:00 AM EDT [facility] Value Range Interpretation Description Data Sup porting Code Source(s) Document(s ) Eosinophils/100 7.6 % [place] leukocytes in Hospital Blood by Automated count ID Date Data Source [id number] 04/20/2019 07:01:00 AM EDT [facility] Name Value Range Interpretation Description Data Sup porting Code Source(s) Document(s ) Monocytes/100 9.7 % [place] leukocytes in Hospital Blood by Automated count ID Date Data Source [id number] 04/20/2019 07:01:00 AM EDT [facility] Name Value Range Interpretation Description Data Sup porting Code Source(s) Document(s ) Lymphocytes/10 27.1 % [place] 0 leukocytes Hospital in Blood by Automated count ID Date Data Source [id number] 04/20/2019 07:01:00 AM EDT [facility] Name Value Range Interpretation Description Data Sup porting Code Source(s) Document(s ) Neutrophils/10 54.7 % [place] 0 leukocytes Hospital in Blood by Automated count ID Date Data Source [id number] 04/20/2019 07:01:00 AM EDT [facility] Name Value Range Interpretation Description Data Sup porting Code Source(s) Document(s ) Platelet mean 11.2 fL [place] volume Hospital [Entitic volume] in Blood by Automated count ID Date Data Source [id number] 04/20/2019 07:01:00 AM EDT [facility] Value Range Interpretation Description Data Sup porting Code Source(s) Document(s ) Platelets 78 [place] [#/volume] in 10*3/uL Hospital Blood by Automated count ID Date Data Source [id number] 04/20/2019 07:01:00 AM EDT [facility] Value Range Interpretation Description Data Sup porting Code Source(s) Document(s ) Erythrocyte 15.3 % [place] distribution Hospital width [Ratio] by Automated count ID Date Data Source [id number] 04/20/2019 07:01:00 AM [facility] Value Range Interpretation Description Data Sup porting Code Source(s) Document(s ) Erythrocyte mean 29.6 [place] corpuscular g/dL Hospital hemoglobin concentration [Mass/volume] by Automated count ID Date Data Source [id number] 04/20/2019 07:01:00 AM [facility] Value Range Interpretation Description Data Sup porting Code Source(s) Document(s ) Erythrocyte 33.3 pg [facility] corpuscular hemoglobin [Entitic mass] by Automated count ID Date Data Source [id number] 04/20/2019 07:01:00 AM [facility] Value Range Interpretation Description Data Sup porting Code Source(s) Document(s ) Erythrocyte 112.8 fL [facility] corpuscular volume [Entitic volume] by Automated count ID Date Data Source [id number] 04/20/2019 07:01:00 AM [facility] Value Range Interpretation Description Data Sup porting Code Source(s) Document(s ) Hematocrit 31.8 % [place] [Volume Hospital Fraction] of Blood by Automated count ID Date Data Source [id number] 04/20/2019 07:01:00 AM [facility] Value Range Interpretation Description Data Sup porting Code Source(s) Document(s ) Hemoglobin 9.4 g/dL [place] [Mass/volume] Hospital in Blood ID Date Data Source [id number] 04/20/2019 07:01:00 AM [facility] Value Range Interpretation Description Data Sup porting Code Source(s) Document(s ) Erythrocytes 2.82 [place] [#/volume] in 10*6/uL Hospital Blood by Automated count ID Date Data Source [id number] 04/20/2019 07:01:00 AM EDT [facility] Name Value Range Interpretation Description Data Sup porting Code Source(s) Document(s ) Leukocytes 4.2 [place] [#/volume] in 10*3/uL Hospital Blood by Automated count ID Date Data Source [id number] 04/20/2019 07:01:00 AM EDT [facility] Name Value Range Interpretation Description Data Sup porting Code Source(s) Document(s ) Hepatitis B NON-REACT [place] virus surface [facility] Ag [Presence] in Serum ID Date Data Source [id number] 04/20/2019 07:01:00 AM EDT [facility] Name Value Range Interpretation Description Data Sup porting Code Source(s) Document(s ) Folate 10.0 ng/mL [place] [Mass/volum Hospital e] in Serum or Plasma ID Date Data Source [id number] 04/20/2019 [facility] Value Range Interpretation Description Data Sup porting Code Source(s) Document(s ) Cobalamin 580 pg/mL [place] (Vitamin B12) Hospital [Mass/volume] in Serum or Plasma ID Date Data Source [id number] 04/20/2019 07:01:00 AM [facility] TEST PERFORMED BY [facility] UL[facility] SENSIT[facility] CHEMILUMINESCENCE METHOD. Name Value Range Interpretation Description Data Sup porting Code Source(s) Document(s ) Troponin 0.05 [place] I.cardiac ng/mL Hospital [Mass/volume ] in Serum or Plasma ID Date Data Source [id number] 04/20/2019 [facility]01[facility] Value Range Interpretation Description Data Sup porting Code Source(s) Document(s ) Phosphate 8.8 mg/dL [place] [Mass/volume] Hospital in Serum or Plasma ID Date Data Source [id number] 04/20/2019 07:01:00 AM [facility] Name Value Range Interpretation Description Data Sup porting Code Source(s) Document(s ) Magnesium 2.4 mg/dL [place] [Mass/volume] Hospital in Serum or Plasma ID Date Data Source [id number] 04/20/2019 07:01:00 AM [facility] Name Value Range Interpretation Description Data Sup porting Code Source(s) Document(s ) Calcium 7.5 mg/dL [place] [Mass/volume Hospital ] in Serum or Plasma ID Date Data Source [id number] 04/20/2019 07:01:00 AM [facility] Name Value Range Interpretation Code Description Data Sharon rce(s) Supporting Document(s ) Urea 6.4 [place] nitrogen/Cre Hospital atinine [Mass Ratio] in Serum or Plasma ID Date Data Source [id number] 04/20/2019 07:01:00 AM [facility] NOTIFICATION AND READ BACK OF CRITICAL R ESULTS TO NATALIE TIWARI RN W4F AT 0827 ON 04/20/19 BY Janel Barrera.REPORTED CRITI MARCI VALUES SHOULD BE INTERPRETED WITHIN CLINICAL CONTEXT. Name Value Range Interpretation Description Data Sup porting Code Source(s) Document(s ) Creatinine 6.9 mg/dL [place] [Mass/volume] Hospital in Serum or Plasma ID Date Data Source [id number] 04/20/2019 [facility] Value Range Interpretation Description Data Sup porting Code Source(s) Document(s ) Urea 44 mg/dL [place] nitrogen Hospital [Mass/volume ] in Serum or Plasma ID Date Data Source [id number] 04/20/2019 07:01:00 AM [facility] Name Value Range Interpretation Code Description Data Sharon rce(s) Supporting Document(s ) Anion gap in [address] [place] [address] [facility] Plasma ID Date Data Source [id number] 04/20/2019 07:01:00 AM [facility] Name Value Range Interpretation Description Data Sup porting Code Source(s) Document(s ) Carbon 24 mmol/L [place] dioxide, Hospital total [Moles/volu me] in Serum or Plasma ID Date Data Source [id number] 04/20/2019 07:01:[facility] Value Range Interpretation Description Data Sup porting Code Source(s) Document(s ) Chloride 103 [place] [Moles/volum mmol/L Hospital e] in Serum or Plasma ID Date Data Source [id number] 04/20/2019 07:01:00 AM [facility] Name Value Range Interpretation Description Data Sup porting Code Source(s) Document(s ) Potassium 4.9 [place] [Moles/volume mmol/L Hospital ] in Serum or Plasma ID Date Data Source [id number] 04/19/2019 07:27:00 PM [facility] THERAPEUTIC RANGE FOR STANDARD ORALANTIC OAGULANT THERAPY: 2.0-3.0THERAPEUTIC RANGE FOR HIGH DOSE ORALANTICOAGULANT THERAPY (MECHANICAL HEARTVALVE REPLACEMENT): 2.5-3.5 Name Value Range Interpretation Description Data Sup porting Code Source(s) Document(s ) INR in Platelet 1.0 [place] poor plasma by Hospital Coagulation assay ID Date Data Source [id number] 04/19/2019 07:27[facility] [address] [facility] Value Range Interpretation Description Data Sup porting Code Source(s) Document(s ) PT panel - 11.1 s [place] Platelet poor [facility] plasma by Coagulation assay ID Date Data Source [id number] 04/19/2019 07:27:00 PM [facility] THERAPEUTIC RANGE FOR STANDARD ORALANTIC OAGULANT THERAPY: 2.0-3.0THERAPEUTIC RANGE FOR HIGH DOSE ORALANTICOAGULANT THERAPY (MECHANICAL HEARTVALVE REPLACEMENT): 2.5-3.5 Name Value Range Interpretation Description Data Sup porting Code Source(s) Document(s ) INR in Platelet 1.0 [place] poor plasma by Hospital Coagulation assay ID Date Data Source [id number] 04/19/2019 07:27:00 PM EDT [facility] Name Value Range Interpretation Description Data Sup porting Code Source(s) Document(s ) PT panel - 11.1 s [place] Platelet poor Hospital plasma by Coagulation assay ID Date Data Source [id number] 04/19/2019 04:53:00 PM EDT [facility] Name Value Range Interpretation Description Data Sup porting Code Source(s) Document(s ) Natriuretic 1422.7 [place] peptide B pg/mL Hospital [Mass/volume] in Serum or Plasma ID Date Data Source [id number] 04/19/2019 04:53:00 PM EDT [facility] Name Value Range Interpretation Description Data Sup porting Code Source(s) Document(s ) Aspartate 12 U/L [facility] aminotransferase [place] [Enzymatic Hospital activity/volume] in Serum or Plasma ID Date Data Source [id number] 04/19/2019 04:53:00 PM EDT [facility] Name Value Range Interpretation Description Data Sup porting Code Source(s) Document(s ) Alanine < 8 U/L [facility] aminotransferase [place] [Enzymatic Hospital activity/volume] in Serum or Plasma ID Date Data Source [id number] 04/19/2019 04:53:00 PM EDT [facility] Name Value Range Interpretation Description Data Sup porting Code Source(s) Document(s ) Alkaline 119 U/L [place] phosphatase Hospital [Enzymatic activity/volume ] in Serum or Plasma ID Date Data Source [id number] 04/19/2019 04:53:00 PM EDT [facility] Name Value Range Interpretation Description Data Sup porting Code Source(s) Document(s ) Bilirubin.t 0.2 mg/dL [facility] [Mass/volum e] in Serum or Plasma ID Date Data Source [id number] 04/19/2019 04:53:00 PM EDT [facility] Name Value Range Interpretation Code Description Data Sharon rce(s) Supporting Document(s ) Albumin/Glob 1.2 [place] ulin [Mass Hospital Ratio] in Serum or Plasma ID Date Data Source [id number] 04/19/2019 04:53:00 PM EDT [facility] Name Value Range Interpretation Description Data Sup porting Code Source(s) Document(s ) Albumin 3.5 g/dL [place] [Mass/volume Hospital ] in Serum or Plasma ID Date Data Source [id number] 04/19/2019 04:53:00 PM EDT [facility] Name Value Range Interpretation Description Data Sup porting Code Source(s) Document(s ) Protein 6.5 g/dL [place] [Mass/volume Hospital ] in Serum or Plasma ID Date Data Source [id number] 04/19/2019 04:53:00 PM EDT [facility] Name Value Range Interpretation Description Data Sup porting Code Source(s) Document(s ) Natriuretic 1422.7 [place] peptide B pg/mL Hospital [Mass/volume] in Serum or Plasma ID Date Data Source [id number] 04/19/2019 04:53:00 PM EDT [facility] Name Value Range Interpretation Description Data Sup porting Code Source(s) Document(s ) Aspartate 12 U/L [place] aminotransferase [place] [Enzymatic Hospital activity/volume] in Serum or Plasma ID Date Data Source [id number] 04/19/2019 04:53:00 PM EDT [facility] Name Value Range Interpretation Description Data Sup porting Code Source(s) Document(s ) Alanine < 8 U/L [facility] [Enzymatic Hospital activity/volume] in Serum or Plasma ID Date Data Source [id number] 04/19/2019 [facility]53[facility] Value Range Interpretation Description Data Sup porting Code Source(s) Document(s ) Alkaline 119 U/L [place] phosphatase Hospital [Enzymatic activity/volume ] in Serum or Plasma ID Date Data Source [id number] 04/19/2019 [facility]53[facility] [address] [facility] Value Range Interpretation Description Data Sup porting Code Source(s) Document(s ) Bilirubin.t 0.2 mg/dL [facility] [Mass/volum e] in Serum or Plasma ID Date Data Source [id number] 04/19/2019 04:53:00 PM [facility] Value Range Interpretation Code Description Data Sharon rce(s) Supporting Document(s ) Albumin/Glob 1.2 [facility] [Mass Hospital Ratio] in Serum or Plasma ID Date Data Source [id number] 04/19/2019 04:53[facility] [address] [facility] Value Range Interpretation Description Data Sup porting Code Source(s) Document(s ) Albumin 3.5 g/dL [place] [Mass/volume Hospital ] in Serum or Plasma ID Date Data Source [id number] 04/19/2019 04:53[facility] [address] [facility] Value Range Interpretation Description Data Sup porting Code Source(s) Document(s ) Protein 6.5 g/dL [place] [Mass/volume Hospital ] in Serum or Plasma ID Date Data Source [id number] 03/10/2019 07:31:[facility] Value Range Interpretation Description Data Sup porting Code Source(s) Document(s ) Calcium 7.6 mg/dL [place] [Mass/volume Hospital ] in Serum or Plasma ID Date Data Source [id number] 03/10/2019 07:31:00 AM EDT [facility] Name Value Range Interpretation Code Description Data Sharon rce(s) Supporting Document(s ) Urea 7.7 [place] nitrogen/Cre Hospital atinine [Mass Ratio] in Serum or Plasma ID Date Data Source [id number] 03/10/2019 07:31:00 AM EDT [facility] Name Value Range Interpretation Description Data Sup porting Code Source(s) Document(s ) Creatinine 4.4 mg/dL [place] [Mass/volume] Hospital in Serum or Plasma ID Date Data Source [id number] 03/10/2019 07:31:00 AM EDT [facility] Name Value Range Interpretation Description Data Sup porting Code Source(s) Document(s ) Urea 34 mg/dL [place] nitrogen Hospital [Mass/volume ] in Serum or Plasma ID Date Data Source [id number] 03/10/2019 07:31:00 AM EDT [facility] Name Value Range Interpretation Code Description Data Sharon rce(s) Supporting Document(s ) Anion gap in [address] [place] [address] [facility] Plasma ID Date Data Source [id number] 03/10/2019 07:31:00 AM EDT [facility] Name Value Range Interpretation Description Data Sup porting Code Source(s) Document(s ) Carbon 31 mmol/L [facility] total [Moles/volu me] in Serum or Plasma ID Date Data Source [id number] 03/10/2019 07:31:00 AM EDT [facility] Name Value Range Interpretation Description Data Sup porting Code Source(s) Document(s ) Chloride 99 mmol/L [place] [Moles/volum Hospital e] in Serum or Plasma ID Date Data Source [id number] 03/10/2019 07[facility]31:[facility] Value Range Interpretation Description Data Sup porting Code Source(s) Document(s ) Potassium 4.3 [place] [Moles/volume mmol/L Hospital ] in Serum or Plasma ID Date Data Source [id number] 03/10/2019 07:31:[facility] Value Range Interpretation Description Data Sup porting Code Source(s) Document(s ) Sodium 138 mmol/L [place] [Moles/volu Hospital me] in Serum or Plasma ID Date Data Source [id number] 03/10/2019 07:31:[facility] Value Range Interpretation Description Data Sup porting Code Source(s) Document(s ) Glucose 84 mg/dL [place] [Mass/volume Hospital ] in Serum or Plasma ID Date Data Source [id number] 03/10/2019 07:31:00 AM [facility] THERAPEUTIC RANGE FOR STANDARD ORALANTIC OAGULANT THERAPY: 2.0-3.0THERAPEUTIC RANGE FOR HIGH DOSE ORALANTICOAGULANT THERAPY (MECHANICAL HEARTVALVE REPLACEMENT): 2.5-3.5 Name Value Range Interpretation Description Data Sup porting Code Source(s) Document(s ) INR in Platelet 2.3 [place] poor plasma by Hospital Coagulation assay ID Date Data Source [id number] 03/10/2019 07:31:00 AM [facility] Name Value Range Interpretation Description Data Sup porting Code Source(s) Document(s ) PT panel - 26.[address] [place] Platelet poor [facility] plasma by Coagulation assay ID Date Data Source [id number] 03/10/2019 07:31:00 AM [facility] Name Value Range Interpretation Description Data Sup porting Code Source(s) Document(s ) Differential AUTOMATED [place] cell count Hospital method - Blood ID Date Data Source [id number] 03/10/2019 07[facility]31[facility] Value Range Interpretation Description Data Sup porting Code Source(s) Document(s ) Immature 0.02 [place] granulocytes 10*3/uL Hospital [#/volume] in Blood by Automated count ID Date Data Source [id number] 03/10/2019 [facility] Description Data Sup porting Code Source(s) Document(s ) Basophils 0.03 [place] [#/volume] in 10*3/uL Hospital Blood by Automated count ID Date Data Source [id number] 03/10/2019 07:31:00 AM [facility] Name Value Range Interpretation Description Data Sup porting Code Source(s) Document(s ) Eosinophils 0.30 [place] [#/volume] in 10*3/uL Hospital Blood by Automated count ID Date Data Source [id number] 03/10/2019 07:31:00 AM [facility] Name Value Range Interpretation Description Data Sup porting Code Source(s) Document(s ) Monocytes 0.34 [place] [#/volume] in 10*3/uL Hospital Blood by Automated count ID Date Data Source [id number] 03/10[facility] Value Range Interpretation Description Data Sup porting Code Source(s) Document(s ) Lymphocytes 0.88 [place] [#/volume] in 10*3/uL Hospital Blood by Automated count ID Date Data Source [id number] 03/10/2019 [facility] Value Range Interpretation Description Data Sup porting Code Source(s) Document(s ) Neutrophils 1.55 [place] [#/volume] in 10*3/uL Hospital Blood by Automated count ID Date Data Source [id number] 03/10/2019 07:31:00 AM EDT [facility] Value Range Interpretation Description Data Sup porting Code Source(s) Document(s ) Nucleated 0.0 % [place] erythrocytes/10 Hospital 0 leukocytes [Ratio] in Blood by Automated count ID Date Data Source [id number] 03/10/2019 07:31:00 AM EDT [facility] Value Range Interpretation Description Data Sup porting Code Source(s) Document(s ) Immature 0.6 % [place] granulocytes/10 Hospital 0 leukocytes in Blood by Automated count ID Date Data Source [id number] 03/10/2019 07:31:00 AM EDT [facility] Value Range Interpretation Description Data Sup porting Code Source(s) Document(s ) Basophils/100 1.0 % [place] leukocytes in [facility] Blood by Automated count ID Date Data Source [id number] 03/10/2019 07:31:00 AM EDT [facility] Value Range Interpretation Description Data Sup porting Code Source(s) Document(s ) Eosinophils/100 9.6 % [place] leukocytes in Hospital Blood by Automated count ID Date Data Source [id number] 03/10/2019 07:31:00 AM EDT [facility] Value Range Interpretation Description Data Sup porting Code Source(s) Document(s ) Monocytes/100 10.9 % [place] leukocytes in [facility] Blood by Automated count ID Date Data Source [id number] 03/10/2019 07:31:00 AM EDT [facility] Value Range Interpretation Description Data Sup porting Code Source(s) Document(s ) Lymphocytes/10 28.2 % [place] 0 leukocytes Hospital in Blood by Automated count ID Date Data Source [id number] 03/10/2019 07:31:00 AM EDT [facility] Value Range Interpretation Description Data Sup porting Code Source(s) Document(s ) Neutrophils/10 49.7 % [place] 0 leukocytes Hospital in Blood by Automated count ID Date Data Source [id number] 03/10/2019 07:31:00 AM EDT [facility] Value Range Interpretation Description Data Sup porting Code Source(s) Document(s ) Platelet mean 12.5 fL [place] volume Hospital [Entitic volume] in Blood by Automated count ID Date Data Source [id number] 03/10/2019 07:31:00 AM EDT [facility] Value Range Interpretation Description Data Sup porting Code Source(s) Document(s ) Platelets 96 [place] [#/volume] in 10*3/uL Hospital Blood by Automated count ID Date Data Source [id number] 03/10/2019 07:31:00 AM [facility] Value Range Interpretation Description Data Sup porting Code Source(s) Document(s ) Erythrocyte 15.5 % [place] distribution Hospital width [Ratio] by Automated count ID Date Data Source [id number] 03/[facility] Description Data Sup porting Code Source(s) Document(s ) Erythrocyte mean 31.2 [place] corpuscular g/dL Hospital hemoglobin concentration [Mass/volume] by Automated count ID Date Data Source [id number] 03/10/2019 [facility] Interpretation Description Data Sup porting Code Source(s) Document(s ) Erythrocyte 33.6 pg [place] mean Hospital corpuscular hemoglobin [Entitic mass] by Automated count ID Date Data Source [id number] 03/10/2019 07:31:00 AM [facility] Value Range Interpretation Description Data Sup porting Code Source(s) Document(s ) Erythrocyte 107.9 fL [facility] Hospital corpuscular volume [Entitic volume] by Automated count ID Date Data Source [id number] 03/10/2019 07:31:00 AM EDT [facility] Value Range Interpretation Description Data Sup porting Code Source(s) Document(s ) Hematocrit 26.0 % [place] [Volume Hospital Fraction] of Blood by Automated count ID Date Data Source [id number] 03/10/2019 07:31:00 AM [facility] Value Range Interpretation Description Data Sup porting Code Source(s) Document(s ) Hemoglobin 8.1 g/dL [place] [Mass/volume] Hospital in Blood ID Date Data Source [id number] 03/10/2019 [facility] Interpretation Description Data Sup porting Code Source(s) Document(s ) Erythrocytes 2.41 [place] [#/volume] in 10*6/uL Hospital Blood by Automated count ID Date Data Source [id number] 03/10/2019 [facility] Interpretation Description Data Sup porting Code Source(s) Document(s ) Leukocytes 3.1 [place] [#/volume] in 10*3/uL Hospital Blood by Automated count ID Date Data Source [id number] 03/09/2019 10:41:00 AM [facility] Value Range Interpretation Code Description Data Supporting Source(s) Document(s ) NUCLEATED RBCS 0.0 % [place] (AUTO Hospital DIFF%)DIS ID Date Data Source [id number] 03/09/2019 10:41:00 AM EDT [facility] Name Value Range Interpretation Code Description Data Sharon rce(s) Supporting Document(s ) Cells 100 [facility] Total [#] in Blood ID Date Data Source [id number] 03/09/2019 10:41:00 AM EDT [facility] GIANT PLATELETS PRESENT Name Value Range Interpretation Description Data Sup porting Code Source(s) Document(s ) PLATELET PRESENT [facility] Hospital ID Date Data Source [id number] 03/09/2019 10:41:00 AM EDT [facility] Name Value Range Interpretation Code Description Data Sharon rce(s) Supporting Document(s ) TEARDROP [facility] Hospital ID Date Data Source [id number] 03/09/2019 10:41:00 AM EDT [facility] Name Value Range Interpretation Code Description Data Sharon rce(s) Supporting Document(s ) OVALOCYTES [facility] ID Date Data Source [id number] 03/09/2019 10:41:00 AM EDT [facility] Name Value Range Interpretation Code Description Data Supporting Source(s) Document(s ) POLYCHROMASIA 1+ [facility] ID Date Data Source [id number] 03/09/2019 10:41:00 AM EDT [facility] Name Value Range Interpretation Code Description Data Sharon rce(s) Supporting Document(s ) MACROCYTOSIS 1+ [facility] ID Date Data Source [id number] 03/09/2019 10:41:00 AM EDT [facility] Name Value Range Interpretation Code Description Data Sharon rce(s) Supporting Document(s ) ANISOCYTOSIS OCC [facility] ID Date Data Source [id number] 03/09/2019 10:41:00 AM EDT [facility] Name Value Range Interpretation Description Data Sup porting Code Source(s) Document(s ) Basophils 0.07 [place] [#/volume] in 10*3/uL Hospital Blood by Manual count ID Date Data Source [id number] 03/09/2019 10:41:00 AM EDT [facility] Name Value Range Interpretation Description Data Sup porting Code Source(s) Document(s ) Eosinophils 0.07 [place] [#/volume] in 10*3/uL Hospital Blood by Manual count ID Date Data Source [id number] 03/09/2019 10:41:00 AM EDT [facility] Value Range Interpretation Description Data Sup porting Code Source(s) Document(s ) Monocytes 0.36 [place] [#/volume] in 10*3/uL Hospital Blood by Manual count ID Date Data Source [id number] 03/09/2019 10:41:00 AM EDT [facility] Value Range Interpretation Description Data Sup porting Code Source(s) Document(s ) Lymphocytes 1.01 [place] [#/volume] in 10*3/uL Hospital Blood by Manual count ID Date Data Source [id number] 03/09/2019 10:41:00 AM EDT [facility] Value Range Interpretation Description Data Sup porting Code Source(s) Document(s ) Neutrophils 2.09 [place] [#/volume] in 10*3/uL Hospital Blood by Manual count ID Date Data Source [id number] 03/09/2019 10:41:00 AM EDT [facility] Name Value Range Interpretation Description Data Sup porting Code Source(s) Document(s ) Basophils/100 2 % [place] leukocytes in Hospital Blood by Manual count ID Date Data Source [id number] 03/09/2019 10:41:00 AM EDT [facility] Name Value Range Interpretation Description Data Sup porting Code Source(s) Document(s ) Eosinophils/100 2 % [place] leukocytes in Hospital Blood by Manual count ID Date Data Source [id number] 03/09/2019 10:41:00 AM EDT [facility] Value Range Interpretation Description Data Sup porting Code Source(s) Document(s ) Monocytes/100 10 % [place] leukocytes in Hospital Blood by Manual count ID Date Data Source [id number] 03/09/2019 10:41:00 AM EDT [facility] Name Value Range Interpretation Description Data Sup porting Code Source(s) Document(s ) Lymphocytes/100 28 % [place] leukocytes in Hospital Blood by Manual count ID Date Data Source [id number] 03/09/2019 10:41:00 AM EDT [facility] Value Range Interpretation Description Data Sup porting Code Source(s) Document(s ) Neutrophils/100 58 % [place] leukocytes in Hospital Blood by Manual count ID Date Data Source [id number] 03/08/2019 07:42:00 AM EDT [facility] Value Range Interpretation Description Data Sup porting Code Source(s) Document(s ) Phosphate 6.3 mg/dL [place] [Mass/volume] Hospital in Serum or Plasma ID Date Data Source [id number] 03/08/2019 07:42:00 AM EDT [facility] Name Value Range Interpretation Description Data Sup porting Code Source(s) Document(s ) Aspartate 20 U/L [facility] amin[facility] [place] [Enzymatic Hospital activity/volume] in Serum or Plasma ID Date Data Source [id number] 03/08/2019 07:42:00 AM EDT [facility] Value Range Interpretation Description Data Sup porting Code Source(s) Document(s ) Alanine 8 U/L [place] aminotransferase Hospital [Enzymatic activity/volume] in Serum or Plasma ID Date Data Source [id number] 03/08/2019 07:42:00 AM [facility] Name Value Range Interpretation Description Data Sup porting Code Source(s) Document(s ) Alkaline 114 U/L [place] phosphatase Hospital [Enzymatic activity/volume ] in Serum or Plasma ID Date Data Source [id number] 03/08/2019 07:42:00 AM [facility] Name Value Range Interpretation Description Data Sup porting Code Source(s) Document(s ) Bilirubin.t 0.2 mg/dL [facility] [Mass/volum e] in Serum or Plasma ID Date Data Source [id number] 03/08/2019 07:42:00 AM [facility] Name Value Range Interpretation Code Description Data Sharon rce(s) Supporting Document(s ) [facility] in Serum or Plasma ID Date Data Source [id number] 03/08/2019 07:42:00 AM [facility] Name Value Range Interpretation Description Data Sup porting Code Source(s) Document(s ) Albumin 3.2 g/dL [place] [Mass/volume Hospital ] in Serum or Plasma ID Date Data Source [id number] 03/08/2019 07:42:00 AM [facility] Name Value Range Interpretation Description Data Sup porting Code Source(s) Document(s ) Protein 6.1 g/dL [place] [Mass/volume Hospital ] in Serum or Plasma ID Date Data Source [id number] 03/06/2019 02:36:00 PM [facility] UNITS ARE IN ml/min/1.73m2.IF PATIENT IS -COMORAN, MULTIPLY REPORTED RESULT BY 1.21. Name Value Range Interpretation Description Data Sup porting Code Source(s) Document(s ) Glomerular 8 mL/min [place] filtration Hospital rate/1.73 sq M.predicted [Volume Rate/Area] in Serum or Plasma by Creatinine-bas ed formula (MDRD) Procedure Social History Code Duration Value Status Description Data Source(s ) Smoking 03/26/2020 Tobacco smoking completed Tobacco smoking [facility] [place] 03:11:00 PM EDT consumption consumption Hospita l unknown (finding) unknown (finding) Smoking 01/19/2020 Ex-smoker completed Ex-smoker [place] 08:26:00 AM EDT (finding) (finding) Hospital Smoking 12/08/2019 Tobacco smoking completed Tobacco smoking [facility] [place] 04:42:00 AM EDT consumption consumption Hospita l unknown (finding) unknown (finding) 09/14/2019 Y - marijuana completed Y - marijuana [facility] 12:[facility]:00 AM EST Hospital Smoking 09/14/2019 Ex-smoker completed Ex-smoker [place] 12:02:00 AM EST (finding) (finding) Hospital Smoking 09/04/2019 Ex-smoker completed Ex-smoker [place] 08:00:00 AM EST (finding) (finding) Hospital 08/26/2019 Y - marijuana completed [facility] 07:[facility]:00 PM EST Hospital 08/26/2019 Y - marijuana completed Y [facility] marijuana [facility] 07:38:00 PM EST Hospital Smoking 08/26/2019 Never smoked completed Never smoked [facility] 07:38:00 PM EST tobacco (finding) tobacco (find ing) Hospital 07/15/2019 Y - marijuana completed Y - marijuana [facility] 04:[facility]:00 AM EST Hospital 07/15/2019 Y - marijuana completed Y - marijuana [facility] 04:47:00 AM EST Hospital Smoking 07/15/2019 Ex-smoker completed Ex-smoker [place] 04:47:00 AM EST (finding) (finding) Hospital Smoking 06/07/2019 Ex-smoker completed Ex-smoker [place] 09:01:00 AM EST (finding) (finding) Hospital Smoking 06/07/2019 Ex-smoker completed Ex-smoker [place] 09:01:00 AM EST (finding) (finding) Hospital Smoking 05/22/2019 Ex-smoker completed Ex-smoker [place] 12:42:00 PM EDT (finding) (finding) Hospital Smoking 05/22/2019 Ex-smoker completed Ex-smoker [place] 12:42:00 PM EDT (finding) (finding) Hospital Smoking 04/19/2019 Ex-smoker completed Ex-smoker [place] 08:58:00 PM EDT (finding) (finding) Hospital Smoking 03/03/2019 Never smoked completed Never smoked [facility] 05:54:00 PM EDT tobacco (finding) tobacco (find ing) Hospital Vital Signs ID Date Data Source UNK Name Value Range Interpretation Code Description Data Source(s) Body temperature 36.98[address] 36.[address] [facility] [place] Body temperature 97.9 [degF] 97.9 [degF] [facility] Body mass index 31.0 kg/m2 31.0 kg/m2 [facility] [place] [facility] (BMI) [Ratio] Hospital Body weight 173.06 173.06 [lb_av] [facility] [lb_av] Hospital Body temperature 36.51954 36.[address] [facility] [place] Body temperature 97.5 [degF] 97.5 [degF] [facility] Body mass index 30.0 kg/m2 30.0 kg/m2 [facility] [place] [facility] (BMI) [Ratio] Hospital Body weight 165.35 165.35 [lb_av] [facility] [lb_av] Hospital Body temperature 37.47951 37.57418 [facility] Body temperature 98.8 [degF] 98.8 [degF] [facility] Body mass index 29.0 kg/m2 29.0 kg/m2 [facility] [facility] (BMI) [Ratio] Hospital Body weight 159.33 159.33 [lb_av] [facility] [place] [facility] [lb_av] Hospital Body temperature 36.11055 36.80939 [facility] Body temperature 98.0 [degF] 98.0 [degF] [facility] Body mass index 31.0 kg/m2 31.0 kg/m2 [facility] [facility] (BMI) [Ratio] Hospital Body weight 169.98 169.98 [lb_av] [facility] [lb_av] Hospital Body temperature 36.34495 36.61970 [facility] Body temperature 98.0 [degF] 98.0 [degF] [facility] Body mass index 266.0 kg/m2 266.0 kg/m2 [facility] (BMI) [Ratio] Hospital Body weight 346.13 346.13 [lb_av] [facility] [lb_av] Hospital Body temperature 36.18750 36.37420 [facility] Body temperature 98.1 [degF] 98.1 [degF] [facility] Body mass index 30.0 kg/m2 30.0 kg/m2 [facility] [facility] (BMI) [Ratio] Hospital Body weight 168.87 168.87 [lb_av] [facility] [lb_av] Hospital Body temperature 37.38[address] 37[address] [facility] [place] Body temperature 99.0 [degF] 99.0 [degF] [facility] Body mass index 30.0 kg/m2 30.0 kg/m2 [facility] [facility] (BMI) [Ratio] Hospital Body weight 165.35 165.35 [lb_av] [facility] [facility] [lb_av] Hospital Diastolic blood 57 mm[Hg] 57 mm[Hg] [facility] pressure [facility] Systolic blood 104 mm[Hg] 104 mm[Hg] [facility] Heart rate 85 /min 85 /min [facility] Body temperature 36.61993 36.[address] [facility] [place] Body temperature 98.0 [degF] 98.0 [degF] [facility] Body mass index 29.0 kg/m2 29.0 kg/m2 [facility] [place] [facility] (BMI) [Ratio] Hospital Body weight 163.58 163.58 [lb_av] [facility] [place] [facility] [lb_av] Hospital Systolic blood 151 mm[Hg] 151 mm[Hg] [facility] Diastolic blood 72 mm[Hg] 72 mm[Hg] [facility] [place] [facility] pressure [facility] Heart rate 91 /min 91 /min [facility] Diastolic blood 97 {} Normal (applies to 97 {} [place] pressure non-numeric results) [facility] Systolic blood 124 {} Normal (applies to 124 {} [place] pressure non-numeric results) [facility] First Respiration 18.0000 {} Normal (applies to 18.0000 {} [place] rate Set non-numeric results) [facility] Heart rate 74.0000 {} Normal (applies to 74.0000 {} [place] non-numeric results) [facility] Body temperature 97.0000 {} Normal (applies to 97.0000 {} [place] non-numeric results) [facility] wt - obtain Normal (applies to {} [facility] [place] non-numeric results) [facility] weight - kg 73.3000 {} Normal (applies to 73.3000 {} [facility] [place] non-numeric results) [facility] height - cm Normal (applies to {} [facility] [place] non-numeric results) [facility] Body temperature [address] [facility] [place] Body temperature 98.1 [degF] 98.1 [degF] [facility] Body mass index 26.0 kg/m2 26.0 kg/m2 [facility] [facility] (BMI) [Ratio] Hospital Body weight 145.31 145.31 [lb_av] [facility] [lb_av] Hospital Body temperature 36.[address] [facility] [place] Body temperature 97.3 [degF] 97.3 [degF] [facility] Body mass index 27.0 kg/m2 27.0 kg/m2 [facility] [facility] (BMI) [Ratio] Hospital Body weight 156.31 156.31 [lb_av] [facility] [place] [facility] [lb_av] Hospital Body temperature 36.[address] [facility] [place] Body temperature 97.8 [degF] 97.8 [degF] [facility] Body mass index 28.0 kg/m2 28.0 kg/m2 [facility] [place] [facility] (BMI) [Ratio] Hospital Body weight 153 [lb_av] 153 [lb_av] [facility] Diastolic blood 66 mm[Hg] 66 mm[Hg] [facility] [place] [facility] pressure [facility] Systolic blood 133 mm[Hg] 133 mm[Hg] [facility] Respiratory rate 18 /min 18 /min [facility] Heart rate 78 /min 78 /min [facility] Body temperature 36.[address] [facility] [place] Body temperature 97.6 [degF] 97.6 [degF] [facility] Body mass index 11.0 kg/m2 11.0 kg/m2 [facility] [facility] (BMI) [Ratio] Hospital Body weight 61.49 61.49 [lb_av] [facility] [lb_av] [facility] Diastolic blood 67 mm[Hg] 67 mm[Hg] [facility] [place] [facility] pressure [facility] Systolic blood 102 mm[Hg] 102 mm[Hg] [facility] Respiratory rate 20 /min 20 /min [facility] Heart rate 64 /min 64 /min [facility] Body temperature [address] [facility] [place] Body temperature 98.2 [degF] 98.2 [degF] [facility] Respiratory rate 22 /min 22 /min [facility] Respiratory rate 22 /min 22 /min [facility] Body mass index 28.0 kg/m2 28.0 kg/m2 [facility] [facility] (BMI) [Ratio] Hospital Body weight 155.87 155.87 [lb_av] [facility] [place] [facility] [lb_av] Hospital Systolic blood 113 mm[Hg] 113 mm[Hg] [facility] Diastolic blood 56 mm[Hg] 56 mm[Hg] [facility] [facility] pressure [facility] Respiratory rate 18 /min 18 /min [facility] Heart rate 73 /min 73 /min [facility] Systolic blood 113 mm[Hg] 113 mm[Hg] [facility] Diastolic blood 56 mm[Hg] 56 mm[Hg] [place] [facility] pressure Hospital Respiratory rate 18 /min 18 /min [facility] Heart rate 73 /min 73 /min [facility] Body temperature 36.[address] [facility] [place] Body temperature 98.1 [degF] 98.1 [degF] [facility] Body mass index 30.0 kg/m2 30.0 kg/m2 [facility] (BMI) [Ratio] Hospital Body weight 160.34 160.34 [lb_av] [facility] [lb_av] Hospital Diastolic blood 78 mm[Hg] 78 mm[Hg] [facility] [place] [facility] pressure [facility] Systolic blood 164 mm[Hg] 164 mm[Hg] [facility] Respiratory rate 16 /min 16 /min [facility] Heart rate 66 /min 66 /min [facility] Body temperature 36.[address] [facility] [place] Body temperature 97.4 [degF] 97.4 [degF] [facility] Diastolic blood 78 mm[Hg] 78 mm[Hg] [facility] [facility] Hospital Systolic blood 164 mm[Hg] 164 mm[Hg] [facility] Respiratory rate 16 /min 16 /min [facility] Heart rate 66 /min 66 /min [facility] Body temperature 36.[address] [facility] [place] Body temperature 97.4 [degF] 97.4 [degF] [facility] Body mass index 33.0 kg/m2 33.0 kg/m2 [facility] (BMI) [Ratio] Hospital Body weight 170.20 170.20 [lb_av] [facility] [facility] [lb_av] Hospital Body mass index 33.0 kg/m2 33.0 kg/m2 [facility] [facility] (BMI) [Ratio] Hospital Body weight 170.20 170.20 [lb_av] [facility] [facility] [lb_av] Hospital Diastolic blood 77 mm[Hg] 77 mm[Hg] [facility] [place] [facility] pressure [facility] Systolic blood 133 mm[Hg] 133 mm[Hg] [facility] Respiratory rate 18 /min 18 /min [facility] Heart rate 62 /min 62 /min [facility] Body temperature [address] [facility] [place] Body temperature 97.9 [degF] 97.9 [degF] [facility] Diastolic blood 77 mm[Hg] 77 mm[Hg] [facility] [place] [facility] Systolic blood 131 mm[Hg] 131 mm[Hg] [facility] Respiratory rate 20 /min 20 /min [facility] Heart rate 65 /min 65 /min [facility] Body temperature 36.11[address] 36.[address] [facility] [place] Body temperature 98.0 [degF] 98.0 [degF] [facility] Body mass index 31.0 kg/m2 31.0 kg/m2 [facility] [facility] (BMI) [Ratio] Hospital Body weight 162.26 162.26 [lb_av] [facility] [facility] Body mass index 31.0 kg/m2 31.0 kg/m2 [facility] (BMI) [Ratio] [facility] Body weight 162.26 162.26 [lb_av] [facility] Systolic blood 116 mm[Hg] 116 mm[Hg] [facility] Diastolic blood 58 mm[Hg] 58 mm[Hg] [facility] Respiratory rate 20 /min 20 /min [facility] Heart rate 79 /min 79 /min [facility] Body mass index 28.0 kg/m2 28.0 kg/m2 [facility] (BMI) [Ratio] [facility] Body weight 169.76 169.76 [lb_av] [facility] [lb_av] Hospital Body temperature 36.385[address] [id number] [facility] [place] Body temperature 98.0 [degF] 98.0 [degF] [facility] Diastolic blood 70 mm[Hg] 70 mm[Hg] [facility] Systolic blood 171 mm[Hg] 171 mm[Hg] [facility] Heart rate 78 /min 78 /min [facility] Diastolic blood 70 mm[Hg] 70 mm[Hg] [facility] pressure Hospital Systolic blood 171 mm[Hg] 171 mm[Hg] [facility] Heart rate 78 /min 78 /min [facility] Respiratory rate 18 /min 18 /min [facility] Respiratory rate 18 /min 18 /min [facility] Body temperature 36.[id number] [facility] [place] Body temperature 97.7 [degF] 97.7 [degF] [facility] Body mass index 28.0 kg/m2 28.0 kg/m2 [facility] (BMI) [Ratio] [facility] Body weight 169.76 169.76 [lb_av] [facility] Diastolic blood 65 mm[Hg] 65 mm[Hg] [facility] pressure Hospital Systolic blood 131 mm[Hg] 131 mm[Hg] [facility] pressure Hospital Respiratory rate 16 /min 16 /min [facility] Heart rate 71 /min 71 /min [facility] Body temperature 36.10[address] [facility] [place] Body temperature 98.3 [degF] 98.3 [degF] [facility] Body mass index 30.0 kg/m2 30.0 kg/m2 [facility] (BMI) [Ratio] [facility] Body weight 168.87 168.87 [lb_av] [facility] [lb_av] Hospital Patient Treatment Plan of Care Planned Activity Planned Date Details Description Data Source (s) Hair Damian 11/23/2019 01:07:04 [facility] Carafate (Sucralfate 11/23/2019 01:06:54 [facility] Protronix (Pantopraz 11/23/2019 01:06:27 [facility] Vistaril (Hydroxyzin 11/23/2019 01:06:13 [facility] FENTANYL Inj 100 mcq 11/23/2019 12:07:09 [facility] Lidocaine 1% w/Epi 1 11/22/2019 10:26:34 [facility]
[2020-05-02 13:58] LABS: INR 1.08 (0.83-1.09); PROTHROMBIN TIME (PATIENT) 12.7 SEC (9.7-13.0)
[2020-05-02 14:00] LABS: ACTIVATED PTT 34.7 SECONDS (25.2-36.5)
--- NOTE | 2020-05-02 14:14 | PDOC ---
History of Present Illness - General Chief Complaint: Shortness of Breath Stated Complaint: DIFFICULTY BREATHING Time Seen by Provider: 05/02/20 13:53 - History of Present Illness Initial Comments: 05/02/20 16:54 75yo F with PMHx ESRD and heart failure on dialysis presents w/ acute SOB today. She was scheduled for her dialysis today but did not go due to coming to the ED. 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 She denies CP but endor ses orthopnea. no hemoptysis but endorses b/l calf pain but in different spots.. denies fevers, cough, rashes, sore throat, travel. endorses hx of cancer 05/02/20 17:07 Past History - Medical History Allergies/Adverse Reactions: Allergies Allergy/AdvReac Type Severity Reaction Status Date / Time ciprofloxacin Allergy Verified 04/08/20 09:39 denosumab Allergy Verified 04/08/20 09:39 gabapentin Allergy Verified 04/08/20 09:39 levofloxacin Allergy Verified 04/08/20 09:39 NSAIDS (Non-Steroidal Allergy Verified 04/08/20 09:39 Anti-Inflamma sulfamethoxazole Allergy Verified 04/08/20 09:39 trimethoprim Allergy Verified 04/08/20 09:39 tape AdvReac Uncoded 04/08/20 09:39 Home Medications: Ambulatory Orders Acetaminophen [Non-Aspirin Extra Strength] 1,000 mg PO BID 04/08/20 Aripiprazole 30 mg PO DAILY 04/08/20 Febuxostat [Uloric -] 40 mg PO DAILY 04/08/20 Furosemide 80 mg PO DAILY 04/08/20 Multivitamin 1 each PO DAILY 04/08/20 Pravastatin Sodium [Pravachol -] 40 mg PO HS 04/08/20 Quetiapine Fumarate [Seroquel -] 100 mg PO HS 04/08/20 Sevelamer Carbonate 800 mg PO DAILY 04/08/20 Acetaminophen [Tylenol .Regular Strength -] 650 mg PO Q6H PRN tablet 04/17/20 Pantoprazole Sodium [Protonix -] 40 mg PO DAILY tablet.ec 04/17/20 Simethicone [Mylicon -] 80 mg PO QID PRN tab.chew 04/17/20 Albuterol 2.5/Ipratropium 0.5 [Duoneb -] 1 neb IH QID 05/02/20 Amlodipine Besylate [Norvasc -] 10 mg PO DAILY 05/02/20 Bromfenac Sodium [Prolensa] 1 drop OU BID 05/02/20 Folic Acid 0.8 mg PO DAILY 05/02/20 Propranolol HCl [Propranolol HCl ER] 160 mg PO DAILY 05/02/20 Sucralfate [Carafate -] 1 gm PO QID 05/02/20 Cancer: Yes (breast) Cardiac Disorders: Yes (AF, CAD) CVA: Yes COPD: Yes CHF: Yes Dialysis: Yes (T/Th/Fri) GI Disorders: Yes (PUD, GERD) HTN: Yes Hypercholesterolemia: Yes Thyroid Disease: Yes (hypo) - Surgical History Abdominal Surgery: Yes (bariatric) Cardiac Surgery: Yes (cardiac cath 2011) Cholecystectomy: Yes Orthopedic Surgery: Yes (RT wrist ORIF; left rotator cuff) - Immunization History Immunization Up to Date: No - Psycho-Social/Smoking History Smoking History: Unknown if ever smoked Have you smoked in the past 12 months: No - Substance Abuse Hx (Audit-C & DAST Scrn) How often the patient has a drink containing alcohol: Never Score: In Men: 4 or > Positive; In Women: 3 or > Positive: 0 Screen Result (Pos requires Nsg. Audit-10AR): Negative Review of Systems - Review of Systems Able to Perform ROS?: Yes Is the patient limited [place]alan proficient: No Constitutional: Yes: Weakness. No: Chills, Fever HEENTM: No: Blurred Vision, Recent change in vision, Nose Congestion Respiratory: Yes: Orthopnea, Shortness of Breath, SOB with Exertion, SOB at Rest. No: Cough Cardiac (ROS): Yes: Edema, Lightheadedness. No: Chest Pain, Palpitations, Syncope ABD/GI: No: Constipated, Diarrhea, Nausea, Vomiting : No: Burning, Dysuria, Discharge Musculoskeletal: No: Back Pain, Joint Pain Integumentary: No: Bruising, Rash Neurological: No: Headache, Numbness, Paresthesia Endocrine: No: Symptoms Reported Hematologic/Lymphatic: No: Symptoms Reported All Other Systems: Reviewed and Negative *Physical Exam - Vital Signs Last Vital Signs Temp Pulse Resp BP Pulse Ox 97.7 F 88 28 H 134/89 100 05/02/20 12:49 05/02/20 13:26 05/02/20 12:49 05/02/20 12:49 05/02/20 13:26 - Physical Exam General Appearance: Yes: Nourished, Appropriately Dressed, Apparent Distress, Disheveled HEENT: positive: EOMI, Hearing Grossly Normal Neck: positive: Trachea midline, Supple Respiratory/Chest: positive: Labored Respiration, Decreased Breath Sounds, Crackles, Rhonchi. negative: Lungs Clear, Normal Breath Sounds Cardiovascular: positive: Regular Rate, Gallop/S3 Gastrointestinal/Abdominal: positive: Normal Bowel Sounds, Soft Musculoskeletal: positive: Normal Inspection. negative: CVA Tenderness Extremity: positive: Normal Capillary Refill, Normal Inspection Integumentary: positive: Dry, Warm, Pale Neurologic: positive: Alert, Normal Response ED Treatment Course - LABORATORY CBC & Chemistry Diagram: 05/03/20 08:00 05/03/20 14:45 - ADDITIONAL ORDERS Additional order review: Laboratory Results 05/02/20 12:50 PT with INR 12.70 INR 1.08 PTT (Actin FS) 34.7 05/02/20 12:50 RBC 2.94 L MCV 105.5 H MCHC 32.7 RDW 23.5 H MPV 12.3 H D Neutrophils % 73.6 Lymphocytes % 9.5 Monocytes % 12.2 H Eosinophils % 3.7 Basophils % 1.0 Medical Decision Making - Medical Decision Making 05/02/20 17:10 75yo F w/ hx ESRD and CHF p/w SOB and leg edema. wet lungs + leg swelling + elevated BNP + hx of CHF -> likely CHF exacerbation on top of missed dialysis. pt has been receiving extra dialysis tx recently; today's presentation is possibly due to fluid overload. Discharge - Discharge Information Problems reviewed: Yes Clinical Impression/Diagnosis: ESRD (end stage renal disease) on dialysis Pulmonary edema Qualifiers: Chronicity: acute Qualified Code(s): J81.0 - Acute pulmonary edema Fluid overload Qualifiers: Hypervolemia type: unspecified Qualified Code(s): E87.70 - Fluid overload, unspecified - Admission Yes - Follow up/Referral - Patient Discharge Instructions - Post Discharge Activity
[2020-05-02 14:22] LABS: ALBUMIN 2.8 g/dl (3.4-5.0); BILIRUBIN,TOTAL 0.6 mg/dL (0.2-1); BLOOD UREA NITROGEN 41.6 mg/dL (7-18); CALCIUM 8.4 mg/dL (8.5-10.1); MAGNESIUM 2.7 mg/dL (1.8-2.4); PHOSPHOROUS 4.6 mg/dL (2.5-4.9); TOT PROT 7.6 g/dl (6.4-8.2)
[2020-05-02 14:40] LABS: POTASSIUM 8.7 mmol/L (3.5-5.1)
[2020-05-02] MEDS ORDERED: SODIUM CHLORIDE 250 ML IV PRN (15:00)
[2020-05-02 15:24] LABS: N-TERMINAL BNP > 35000.0 pg/ml (5-125)
[2020-05-02] MEDS: ALBUMIN HUMAN 25% 12.5 GM/50 ML VIAL IVPB SCH ×4 (15:30→19:07)
--- NOTE | 2020-05-02 16:21 | PDOC ---
Attending Attestation - Resident Resident Name: Quinn Hodge - ED Attending Attestation I have performed the following: I have examined & evaluated the patient, The case was reviewed & discussed with the resident, I agree w/resident's findings & plan - HPI HPI: 05/02/20 16:18 75y/o F ESRD t//s dialysis last dialyzed friday but had 4 sessions last week, today feeling sob/generally unwell, so presents to ED instead of HD. no cp. - Physicial Exam PE: 05/02/20 16:18 vitals as noted, tachypneic heart irreg, bibasilar crackles abd benign - Critical Care Time Total Critical Care Time: 30 Critical Care Statement: The care of this patient involved high complexity decision making to prevent further life threatening deterioration of the patient's condition and/or to evaluate & treat vital organ system(s) failure or risk of failure. - Medical Decision Making 05/02/20 16:19 75y/o F esrd with volume overload/pulmonary edema, maintaining o2 sats here. check labs, ekg, cxr needs dialysis, discussed with Dr. Romero and arranged doppler given asymmetry in edema admission Heart Score/ECG Review #1 ECG reviewed & interpreted by me at: 14:54 General ECG Interpretation: Normal Rate (91), Normal Intervals (qtc 447), No acute ischemic changes (TWI I/AVL/V4-6) Compared to previous ECG there are: No significant change (c/w 03/2020) Discharge - Discharge Information Problems reviewed: Yes Clinical Impression/Diagnosis: ESRD (end stage renal disease) on dialysis Pulmonary edema Qualifiers: Chronicity: acute Qualified Code(s): J81.0 - Acute pulmonary edema - Follow up/Referral Referrals: Cj Rubin [Primary Care Provider] - - Patient Discharge Instructions - Post Discharge Activity
[2020-05-02 16:46] LABS: ANION GAP 9 MMOL/L (8-16); BLOOD UREA NITROGEN 40.1 mg/dL (7-18); CALCIUM 8.6 mg/dL (8.5-10.1); CHLORIDE 105 mmol/L (98-107); CO2 26 mmol/L (21-32); CREATININE 6.1 mg/dL (0.55-1.3); GLUCOSE,RANDOM 75 mg/dL (74-106); MAGNESIUM 2.5 mg/dL (1.8-2.4); POTASSIUM 4.9 mmol/L (3.5-5.1); SODIUM 140 mmol/L (136-145)
[2020-05-02 18:48] LABS: ANISOCYTOSIS 3+; MACROCYTOSIS 2+; OVALOCYTE 1+; PLATELET ESTIMATE DECREASED
--- OUTSIDE RECORDS SUMMARY | 2020-05-02 18:52 | XMS ---
:1945 Author Organization [facility] RHIO Care Team Providers Name Role Phone Martha [...] Unavailable Unavailable MD Jeet Unavailable Unavailable MD Corrie Unavailable Unavailable MD Mainor Unavailable Unavailable MD Allan Unavailable Unavailable MD Caryn Unavailable Unavailable Colantoni, DO Unavailable Unavailable WINSTON MCCRAY HABIB Unavailable Unavailable Zentko Unavailable Unavailable Guhennak, DO Unavailable Unavailable ERICKSON PHILLIPS Unavailable Unavailable Rosmery DO Unavailable Unavailable MD Darrick Unavailable Unavailable MD Chandrakant Unavailable Unavailable MOOKIE KUHN Unavailable Unavailable MD Jayden Unavailable Unavailable Holly Arriaza MD Unavailable Unavailable Ross, MD Unavailable Unavailable MD Beth Unavailable Unavailable Wilbert [...] Ender Unavailable Unavailable MD Carlos Unavailable Unavailable JESUS Mccray Unavailable Unavailable Re-disclosure Warning The records that [...] is protected by Article 27-F of the [facility] Public Health law. If you continue you may haveaccess to information: Regarding HIV / AIDS; Provided by facilities licensed or operated by the [facility] Office of Mental Health; or Provided by the [facility] Office for People With Developmental Disabilities. If such information is present, then the following [facility] mandated warning applies: This information [...] law may result in a fine or half-way sentence or both. A general authorization for the release of medical or other information is NOT sufficient authorization for further disclosure. Allergies and Adverse Reactions Type Description Substance Reaction Status Data Source(s) Miscellaneous TAPE TAPE RASH [place] allergy blistering [facility] Drug allergy denosumab denosumab ANAPHYLAXIS [facility] Drug allergy levofloxacin levofloxacin ABD PAIN [place] [facility] Drug allergy gabapentin gabapentin NOT LISTED [facility] Drug allergy ciprofloxacin ciprofloxacin UNKNOWN [facility] Drug allergy trimethoprim trimethoprim ABD PAIN [place] Drug allergy sulfamethoxazole sulfamethoxazole ABD PAIN MO [facility] Drug allergy NSAIDS NSAIDS CANNOT HAVE [place] (Non-Steroidal (Non-Steroidal R/T [place] Hospit al Anti-Inflamma Anti-Inflamma Drug allergy No Known Drug No Known Drug [place] Allergies Allergies [facility] Drug allergy levofloxacin levofloxacin Unknown U [facility] Encounters Encounter Providers Location Date Indications Data Source(s ) Inpatient Attender: Stef 04/21/2020 CHEST PAIN, EKG [facility] 01:13:00 PM [facility] MDAttender: Walt Chiu 04/23/2020 MDAttender: Daren 04:49:00 PM ZentkoAdmitter: EDT Walt hCiu MDConsultant: Hal Hardwick MDConsultant: Gil George MD CHEST PAIN, EKG CHANGES Patient discharged. Inpatient Attender: Chucho 03/25/2020 [facility] PM [facility] - [facility] DOAttender: 04/01/2020 Bakari Nevarez 02:58:00 PM EDT MDAttender: Ronald Aden DOAttender: Vadim Farias MDAdmitter: [facility] DOConsultant: Aditya Mccray NPConsultant: Hal Hardwick MDConsultant: Jonas New MDConsultant: Soni Campos MD PSYCH EVAL-SI EMS [facility] Patient discharged. Emergency Attender: Alfredito 02/23/2020 11:20:00 FALL [facility] DO AM EDT - 02/23/2020 [facility] 04:25:00 PM EDT FALL [facility] Patient discharged. 02/09/2020 11:45:00 [facility] EDT Hospital Inpatient Attender: Chalo Kim 02/08/2020 08:56:00 [facility] - 02/10/2020 Hospital [facility] 01:00:00 AM EDT MDAttender: Guerrero Botello DOAdmitter: Walt Chiu MDConsultant: Desi Lemus MD FLUID OVERLOAD Patient discharged. P Attender: Guerrero 02/08/2020 08:34:00 PM SOB (A RR-[facility]) [facility] EDT [facility] SOB (ARR-[facility]) Emergency Attender: Sky 01/21/2020 NAUSEA [facility] FORRESTER 10:23:00 AM EDT - [facility] pital 01/21/2020 05:06:00 PM EDT NAUSEA [facility] Patient discharged. Inpatient Attender: Ernst 01/15/2020 ACUTE RESP [facility] [place] MDAttender: 05:28:00 PM EDT - [facility]: 01/20/2020 HYPOXIA Walt Chiu 03:28:00 PM EDT MDAttender: Alfredito Bruner DOAttender: Karl Hayward MDAdmitter: Walt Chiu MDConsultant: Hal Hardwick MD ACUTE RESP FAILURE WITH HYPOXIA Patient discharged. Emergency Attender: Pedro 01/14/2020 06:40:00 AM FELL AU TO [facility] EDT - 01/14/2020 [facility] 11:01:00 AM EDT FELL AUTO Patient discharged. Inpatient Attender: Isreal Munoz 12/07/[address] [facility] MDAttender: Dany Stallings 04:42:00 PM EDT - Hospital MDAttender: Timbo Cantu 12/10/2019 DOAdmitter: Radha Barrera 04:53:00 PM EDT Fitta MDConsultant: Franc PeterslliConsultant: Desi Lemus MD BRADYCARDIA Patient discharged. Inpatient Attender: SHEHU 11/22/2019 11:37:00 SYNCOPE [facility] MERITAAttender: JACQUELINE EDT - 11/26/2019 [facility] RANDYAttender: MAHENDRA 06:15:00 PM EDT [facility] AAQIB HABIBAdmitter: WINSTON MCCRAY HABIBReferrer: MAHENDRA, AAQIB HABIB SYNCOPE Patient admitted. Emergency Attender: WINSTON MCCRAY 11/22/2019 LV 2 FEMALE 7 3 [facility] HABIBAttender: 08:57:00 PM EDT FALL [facility] EMERGENCY SERVICE, [facility] ation XAdmitter: WINSTON MCCRAY HABIB LV 2 FEMALE 73 FALL Inpatient Attender: Madhuri Snell 09/13/2019 GERD; ABD Wh ite [place] MDAttender: Indigo Ireland 05:40:00 PM EST - PAIN/AC S RULE Hospital MDAttender: Roxanna 09/15/2019 OUT SchmittAdmitter: Indigo 01:47:00 PM EST Shu MDConsultant: Desi Lemus MD GERD; ABD PAIN/ACS RULE OUT Patient discharged. Inpatient Attender: Isabelle Ramos 09/04/2019 12:34:00 G I BLEED [facility] MDAttender: Adam AM EST - 09/06/2019 [facility] MDAttender: 02:16:00 PM EST Roxanna [facility] Hospital[facility]Admitter: Adam Hollingsworth MDConsultant: Hal Hardwick MD GI BLEED Patient discharged. Inpatient Attender: Mahnaz 08/24/2019 03:20:00 SUICIDAL [facility] Niforos MDAttender: PM EST - 08/27/2019 [facility] 06:46:00 PM EST MDAttender: Damari Shlomo MDAttender: Yoojin Na MDAdmitter: Walt Chiu MDConsultant: Jovany Alva MDConsultant: Soni Campos MD SUICIDAL IDEATION Patient discharged. Emergency Attender: Vadim 08/04/2019 04:55:00 PAIN EMPRE SS [facility] Jarrett FORRESTER PM EST - 08/04/2019 [facility] 07:48:00 PM EST PAIN [facility] Patient discharged. Inpatient Attender: Debra Rinaldi 07/14/2019 11:24:00 PNEUMON [place] [facility] MDAttender: Jiwanjot PM EST - 07/23/2019 [facility] Shlomo MDAttender: 04:07:00 PM EST Yaneth Moulton MDAttender: Martha Carrero MDAttender: Bakari Nevarez MDAdmitter: Martha Carrero MDConsultant: Aditya Mccray NPConsultant: Debra Rinaldi MDConsultant: Jovany Alva MD PNEUMONIA Patient discharged. Emergency Attender: Chalo 07/02/2019 NAUSEA/WEAKNESS Jennifer Gonzalez 08:26:00 PM EST - [facility] MDAttender: Aliya 07/03/2019 [place] 01:47:00 AM EST NAUSEA/WEAKNESS [facility] Patient discharged. Outpatient Attender: Franc 06/07/2019 DIALYSIS/HYPERKALEM IA [facility] PiccorelliAttender: 08:32:00 AM Hosp ital Cj Rubin EST - MDAttender: Yaneth 06/08/2019 Bejinariu MDAttender: 03:09:00 PM Mirta Carpenter MDAttender: EST Guerrero Botello DOAdmitter: Mirta Carpenter MDConsultant: Dean ChaoConsultant: Jovany Alva MD DIALYSIS/HYPERKALEMIA Patient discharged. Inpatient Attender: Yaneth 05/22/2019 04:35:[address] [facility] MDAttender: AM EDT - 05/25/2019 [facility] 12:11:00 PM EST MDAttender: Lovin Pappy MDAttender: Avinash Eddy DOAdmitter: [facility] MDConsultant: Jovany Alva MD SYNCOPE Patient discharged. Emergency Attender: Joanne 05/19/2019 04:55:00 VISUAL DIS TURBANCE Yuniel Kenyon EDT - 05/19/2019 [facility]- [facility] Hospital 08:20:00 PM EDT VISUAL DISTURBANCE ARR-AUT O Patient discharged. Emergency Attender: Avinash 05/07/2019 03:05:00 ARM PAIN [facility] Colantoni DO PM EDT - 05/07/2019 (AUTO) Hos pital 04:27:00 PM EDT ARM PAIN (AUTO) Patient discharged. Outpatient Attender: Merrick 04/21/2019 07:30:00 AM A-FIB [facility] EDT - 04/21/2019 07:21:00 AM EDT A-FIB Patient discharged. Inpatient Attender: Mahnaz Marcano 04/19/2019 03:52:00 CHF , SOB, [facility] MDAttender: SABANA PM EDT - 04/20/2019 [facility]AA[facility]: Walt 03:08:00 PM EDT Aram MDConsultant: Hal Hardwick MD CHF, SOB, ESRD Patient discharged. Inpatient Attender: Liborio 03/02/2019 DIZZINESS/LHNESS W tru Kapooram MDAttender: 08:02:00 PM EDT - [facility] 03/10/2019 MDAttender: Dawit 03:43:00 PM EDT Ray MDAttender: Ginger Prescott MDAdmitter: Yaneth Floresbill MDConsultant: Jovany Alva MD DIZZINESS/LHNESS Patient discharged. Inpatient Attender: Pedro 02/18/2019 FISTULA [facility] QuinteroAttender: Alejandra 04:09:00 PM EDT - DYSFUN CTION ESRD [facility] MDAttender: Ami 02/21/2019 -DD Gadiraju MDAttender: 11:23:00 [...] 05:40:00 PM EST NECK PAIN - [facility] NECK PAIN- [facility] P Attender: Matt Maynard 03/16/2013 12:00:00 AM SO 585.4 [facility] EDT SO 585.4 Functional Status Medications Medication Brand Start Product Dose Route Administrative Pharmacy [facility] Indications Reaction Description Data Name Date Form Instructions Instructions Source(s) bromfenac Bromfe 04/23/ DROP 1 OPHTHA active Wh ite 0.7 MG/ML nac 2020 {Each LMIC [place] [facility]mic Sodium 12:23: } [facility] Solution 00 PM [Prolensa] EDT Bromfenac Sodium carbamide Carbam 04/23/ SOLUTION 5 AURICU active [facility] peroxide 65 dain 2020 [drp] LAR [place] MG/ML Otic Peroxi 12:23: (OTIC) Hos pital [...] White 80 MG Oral mide 2020 ed [place] Tablet 08:02: Hospital 00 AM EDT Pramipexole Pramip 01/19/ TABLET 1.5 ORAL active [facility] dihydrochlo exole 2020 mg [place] ride 1.5 MG Dihydr 08:02: Hosp [facility] Oral Tablet ochlor 00 AM [Mirapex] dain EDT Pramipexole Dihydrochlo ride Pramipexole Pramip 01/19/ TABLET 1.5 ORAL active [facility] dihydrochlo exole 2020 mg [place] ride 1.5 MG Dihydr 08:02: Hosp ital [...] ORAL active [facility] dihydrochlo exole 2020 mg [place] ride 1.5 MG Dihydr 08:02: Hosp [facility] Oral Tablet ochlor 00 AM [Mirapex] dain EDT Pramipexole Dihydrochlo ride Pramipexole Pramip 01/19/ TABLET 1.5 ORAL active [facility] dihydrochlo exole 2020 mg [place] ride 1.5 MG Dihydr 08:02: Hosp [facility] Oral Tablet ochlor 00 AM [Mirapex] dain EDT Pramipexole Dihydrochlo ride Furosemide Furose 01/19/ TABLET 80 mg ORAL active White 80 MG Oral mide 2020 [place] Tablet 08:02: Hospital 00 AM EDT Furosemide Furose 01/19/ TABLET 80 mg ORAL active [facility] 80 MG Oral mide 2020 [place] Tablet 08:02: Hospital 00 AM EDT Pramipexole Pramip // TABLET 1.5 ORAL complet [facility] dihydrochlo exole 2020 mg ed [place] ride 1.5 MG Dihydr 08:02: Hosp ital [...] 01/19/ CAPSULE, 3 [place] [id number] UNT / e/Lipa 2020 DELAYED {Caps Pl ains Endopeptida se/Pro 08:02: RELEASE ule} [place]ital [place] 95493 tease 00 AM UNT / EDT Lipase 6000 UNT Delayed Release Oral Capsule [Creon] Amylase/Lip ase/Proteas e Pramipexole Pramip 01/19/ TABLET 1.5 ORAL complet [facility] dihydrochlo exole 2020 mg ed [place] ride 1.5 MG Dihydr 08:02: Hosp ital Oral Tablet ochlor 00 AM [Mirapex] dain EDT Pramipexole Dihydrochlo ride Furosemide Furose 07// TABLET 80 mg ORAL active [facility] 80 MG Oral mide 2020 [place] Tablet 08:02: Hospital 00 AM EDT Furosemide Furose // TABLET 80 mg ORAL complet [facility] 80 MG Oral mide 2020 ed [place] Tablet 08:02: Hospital 00 AM EDT 24 HR Quetia 01/19/ TABLET, 1 ORAL active White quetiapine pine 2020 EXTENDED {Caps Plai ns 400 MG Fumara 08:02: RELEASE ule} Hospit al Extended te 00 AM Release EDT Oral Tablet Quetiapine Fumarate Amylases Amylas 01/19/ CAPSULE, 3 ORAL [place] W tru 51877 UNT / e/Lipa 2020 DELAYED {Caps Pl ains Endopeptida se/Pro 08:02: RELEASE ule} [place] 28048 tease 00 AM UNT / EDT Lipase 6000 UNT Delayed Release Oral Capsule [Creon] Amylase/Lip ase/Proteas e 24 HR Quetia 07/ TABLET, 1 ORAL complet Whit e quetiapine 2019 EXTENDED {Caps ed Plai ns 400 MG Fumara 08:02: RELEASE ule} Hospit al Extended te 00 AM Release EDT Oral Tablet Quetiapine Fumarate Amylases Amylas 07// CAPSULE, 3 ORAL [place] [id number] UNT / e/Lipa 2020 DELAYED {Caps Pl ains Endopeptida se/Pro 08:02: RELEASE ule} [place]ital [place] 26962 tease 00 AM UNT / EDT Lipase 6000 UNT Delayed Release Oral Capsule [Creon] Amylase/Lip ase/Proteas e Amylases Amylas 07/ CAPSULE, 3 ORAL complet [facility] 27284 UNT / e/Lipa 2020 DELAYED {Caps ed Pl ains Endopeptida se/Pro 08:02: RELEASE ule} [place]ital [place] 10635 tease 00 AM UNT / EDT Lipase 6000 UNT Delayed Release Oral Capsule [Creon] Amylase/Lip ase/Proteas e Amylases Amylas 07/ CAPSULE, 3 ORAL complet White 12415 UNT / e/Lipa 2020 DELAYED {Caps ed Pl ains Endopeptida se/Pro 08:02: RELEASE ule} H [place]spital [place] 38436 tease 00 AM UNT / EDT Lipase 6000 UNT Delayed Release Oral Capsule [Creon] Amylase/Lip ase/Proteas e Furosemide Furose 01/19/ TABLET 80 mg ORAL active White 80 MG Oral mide 2020 [place] Tablet 08:02: Hospital 00 AM EDT 24 HR Quetia 07// TABLET, 1 ORAL complet Whit e quetiapine 2019 EXTENDED {Caps ed Plai ns 400 MG Fumara 08:02: RELEASE ule} Hospit al Extended te 00 AM Release EDT Oral Tablet Quetiapine Fumarate Amylases Amylas 07/ CAPSULE, 3 ORAL [place] tru 46568 UNT / e/Lipa 2020 DELAYED {Caps Pl ains Endopeptida se/Pro 08:02: RELEASE ule} [place]ital [place] 75381 tease 00 AM UNT / EDT Lipase 6000 UNT Delayed Release Oral Capsule [Creon] Amylase/Lip ase/Proteas e SEROquel XR SEROqu 11/22/ 400 UNK active SEROqu el XR [place] (Quetiap el XR 2020 mg (Quetiapine) r [facility] (Queti 01:07: 400 mg PO Health ap 04 AM Care EDT Corporatio n Medication administered onsite Carafate Carafate 11/23/2019 1 gm UNK active Shannon fate [place] (Sucralfate (Sucralfate 01:06:54 AM (Sucralfate) [facility] EDT Tablet Oral 1 Health Care gm PO Corporation Medication administered onsite Protronix Protronix 11/23/2019 40 UNK active P rotronix [place] (Pantopraz (Pantopraz 01:06:27 AM mg ( Pantoprazole) [facility] EDT Oral 40 mg PO [employer] Care ice Medication administered onsite Vistaril Vistaril 11/23/2019 50 UNK active Vis taril Kane (Hydroxyzin (Hydroxyzin 01:06:13 AM mg (Hydroxyzine) [facility] EDT Oral 50 mg PO [employer] Medication administered onsite FENTANYL FENTANYL 11/23/2019 50 mcg UNK active F ENTANYL [place] Inj 100 mcq Inj 100 mcq 12:07:09 AM Inj 100 [facility] EDT mcq/2mL 50 Care mcgIVP ice Medication administered onsite Lidocaine 1% Lidocaine 11/22/2019 0 MG UNK active Lidocaine [place] w/Epi 1 1% w/Epi 1 10:26:34 PM 1% w /Epi [facility] EDT 1:100,000; Care 20 mL ice bottle; Give to provider to admin Medication administered onsite pantoprazole 40 Pantoprazole 09/15/2019 40 mg ORAL active White MG Oral Granules Sodium 08:33:00 AM [place] [Protonix] [facility] Pantoprazole Sodium Sucralfate 1000 Sucralfate 09/15/2019 TABL 1 g ORAL completed White MG Oral Tablet 08:33:00 AM ET [place] [Carafate] [facility] pantoprazole 40 Pantoprazole 09/15/2019 40 mg ORAL active [facility] MG Oral Granules Sodium 08:33:00 AM [place] [Protonix] [facility] Pantoprazole Sodium Sucralfate 1000 Sucralfate 09/15/2019 TABL 1 g ORAL completed White MG Oral Tablet 08:33:00 AM ET [place] [Carafate] [facility] pantoprazole 40 Pantoprazole 09/15/2019 40 mg ORAL active [facility] MG Oral Granules Sodium 08:33:00 AM [place] [Protonix] [facility] Pantoprazole Sodium pantoprazole 40 Pantoprazole 09/15/2019 40 mg ORAL active [facility] MG Oral Granules Sodium 08:33:00 AM [place] [Protonix] [facility] Pantoprazole Sodium pantoprazole 40 Pantoprazole 09/15/2019 40 mg ORAL active White MG Oral Granules Sodium 08:33:00 AM [place] [Protonix] [facility] Pantoprazole Sodium Sucralfate 1000 Sucralfate 09/15/2019 TABL 1 g ORAL active White MG Oral Tablet 08:33:00 AM ET [place] [Carafate] [facility] Sucralfate 1000 Sucralfate 09/15/2019 TABL 1 g ORAL completed [facility] MG Oral Tablet 08:33:00 AM ET [place] [Carafate] [facility] Sucralfate 1000 Sucralfate 09/15/2019 TABL 1 g ORAL completed [facility] MG Oral Tablet 08:33:00 AM ET [place] [Carafate] [facility] pantoprazole 40 Pantoprazole 09/15/2019 40 mg ORAL completed [facility] MG Oral Granules Sodium 08:33:00 AM [place] [Protonix] [facility] Pantoprazole Sodium pantoprazole 40 Pantoprazole 09/15/2019 40 mg ORAL active [facility] MG Oral Granules Sodium 08:33:00 AM [place] [Protonix] [facility] Pantoprazole Sodium pantoprazole 40 Pantoprazole 09/15/2019 40 mg ORAL completed [facility] MG Oral Granules Sodium 08:33:00 AM [place] [Protonix] [facility] Pantoprazole Sodium Sucralfate 1000 Sucralfate 09/15/2019 TABL 1 g ORAL active [facility] MG Oral Tablet 08:33:00 AM ET [place] [Carafate] [facility] Sucralfate 1000 Sucralfate 09/15/2019 TABL 1 g ORAL completed [facility] MG Oral Tablet 08:33:00 AM ET [place] [Carafate] [facility] Sucralfate 1000 Sucralfate 09/15/2019 TABL 1 g ORAL completed [facility] MG Oral Tablet 08:33:00 AM ET [place] [Carafate] [facility] pantoprazole 40 Pantoprazole 09/15/2019 40 mg ORAL active [facility] MG Oral Granules Sodium 08:33:00 AM [place] [Protonix] [facility] Pantoprazole Sodium Sucralfate 1000 Sucralfate 09/15/2019 TABL 1 g ORAL active [facility] MG Oral Tablet 08:33:00 AM ET [place] [Carafate] [facility] sevelamer Sevelamer 07/23/2019 TABL 1600 ORAL completed [place] carbonate 800 MG Carbonate 04:12:00 PM ET mg [place] Oral Tablet [facility] [[facility]] Sevelamer Carbonate sevelamer Sevelamer 07/23/2019 TABL 1600 ORAL completed [place] carbonate 800 MG Carbonate 04:12:00 PM ET mg [place] Oral Tablet [facility] [[facility]] Sevelamer Carbonate sevelamer Sevelamer 07/23/2019 TABL 1600 ORAL completed [place] carbonate 800 MG Carbonate 04:12:00 PM ET mg [place] Oral Tablet [facility] [[facility]] Sevelamer Carbonate sevelamer Sevelamer 07/23/2019 TABL 1600 ORAL completed [place] carbonate 800 MG Carbonate 04:12:00 PM ET mg [place] Oral Tablet [facility] [[facility]] Sevelamer Carbonate sevelamer Sevelamer 07/23/2019 TABL 1600 ORAL completed [place] carbonate 800 MG Carbonate 04:12:00 PM ET mg [place] Oral Tablet [facility] [[facility]] Sevelamer Carbonate sevelamer Sevelamer 07/23/2019 TABL 1600 ORAL completed [place] carbonate 800 MG Carbonate 04:12:00 PM ET mg [place] Oral Tablet [facility] [[facility]] Sevelamer Carbonate sevelamer Sevelamer 07/23/2019 TABL 1600 ORAL completed [place] carbonate 800 MG Carbonate 04:12:00 PM ET mg [place] Oral Tablet [facility] [[facility]] Sevelamer Carbonate sevelamer Sevelamer 07/23/2019 TABL 1600 ORAL completed [place] carbonate 800 MG Carbonate 04:12:00 PM ET mg [place] Oral Tablet [facility] [[facility]] Sevelamer Carbonate sevelamer Sevelamer 07/23/2019 TABL 1600 ORAL active [place] carbonate 800 MG Carbonate 04:12:00 PM ET mg [place] Oral Tablet [facility] [[facility]] Sevelamer Carbonate sevelamer Sevelamer 07/23/2019 TABL 1600 ORAL completed [place] carbonate 800 MG Carbonate 04:12:00 PM ET mg [place] Oral Tablet [facility] [[facility]] Sevelamer Carbonate sevelamer Sevelamer 07/23/2019 TABL 1600 ORAL completed [place] carbonate 800 MG Carbonate 04:12:00 PM ET mg [place] Oral Tablet [facility] [[facility]] Sevelamer Carbonate sevelamer Sevelamer 07/23/2019 TABL 1600 ORAL active [place] carbonate 800 MG Carbonate 04:12:00 PM ET mg [place] Oral Tablet [facility] [[facility]] Sevelamer Carbonate sevelamer Sevelamer 07/23/2019 TABL 1600 ORAL completed [place] carbonate 800 MG Carbonate 04:12:00 PM ET mg [place] Oral Tablet [facility] [[facility]] Sevelamer Carbonate Loperamide Loperamide Hcl 07/23/2019 CAPS 2 mg ORAL completed [facility] Hydrochloride 2 03:58:00 PM ULE [place] MG Oral Capsule EST Hosp ital Loperamide Hcl Loperamide Loperamide Hcl 07/23/2019 CAPS 2 mg ORAL completed [place] Hydrochloride 2 03:58:00 PM ULE [place] MG Oral Capsule EST Hosp ital Loperamide Hcl Loperamide Loperamide Hcl 07/23/2019 CAPS 2 mg ORAL completed [place] Hydrochloride 2 03:58:00 PM ULE [place] MG Oral Capsule EST Hosp [facility] Loperamide Hcl Loperamide Loperamide Hcl 07/23/2019 CAPS 2 mg ORAL active [place] Hydrochloride 2 03:58:00 PM ULE [place] MG Oral Capsule EST Hosp ital Loperamide Hcl Loperamide Loperamide Hcl 07/23/2019 CAPS 2 mg ORAL completed [place] Hydrochloride 2 03:58:00 PM ULE [place] MG Oral Capsule EST Hosp ital Loperamide Hcl Loperamide Loperamide Hcl 07/23/2019 CAPS 2 mg ORAL active [place] Hydrochloride 2 03:58:00 PM ULE [place] MG Oral Capsule EST Hosp [facility] Loperamide Hcl Loperamide Loperamide Hcl 07/23/2019 CAPS 2 mg ORAL completed [place] Hydrochloride 2 03:58:00 PM ULE [place] MG Oral Capsule EST Hosp ital Loperamide Hcl Loperamide Loperamide Hcl 07/23/2019 CAPS 2 mg ORAL completed [place] Hydrochloride 2 03:58:00 PM ULE [place] MG Oral Capsule EST Hosp ital Loperamide Hcl Loperamide Loperamide Hcl 07/23/2019 CAPS 2 mg ORAL completed [place] Hydrochloride 2 03:58:00 PM ULE [place] MG Oral Capsule EST Hosp ital Loperamide Hcl Loperamide Loperamide Hcl 07/23/2019 CAPS 2 mg ORAL completed [place] Hydrochloride 2 03:58:00 PM ULE [place] MG Oral Capsule EST Hosp ital Loperamide Hcl Loperamide Loperamide Hcl 07/23/2019 CAPS 2 mg ORAL active [place] Hydrochloride 2 03:58:00 PM ULE [place] MG Oral Capsule EST Hosp ital Loperamide Hcl Loperamide Loperamide Hcl 07/23/2019 CAPS 2 mg ORAL completed [place] Hydrochloride 2 03:58:00 PM ULE [place] MG Oral Capsule EST Hosp ital Loperamide Hcl Loperamide Loperamide Hcl 07/23/2019 CAPS 2 mg ORAL completed [facility] Hydrochloride 2 03:58:00 PM ULE [place] MG Oral Capsule EST Hosp ital Loperamide Hcl Amoxicillin 500 Amoxicillin/Clav 07/23/2019 TABL 500 mg ORAL comp leted [facility] MG / Clavulanate ulanate 08:56:00 AM ET [place] 125 MG Oral Potassium EST Hos pital Tablet Amoxicillin/Clav ulanate Potassium Amoxicillin 500 Amoxicillin/Clav 07/23/2019 TABL 500 mg ORAL comp leted [facility] MG / Clavulanate ulanate 08:56:00 AM ET [place] 125 MG Oral Potassium EST Hos pital Tablet Amoxicillin/Clav ulanate Potassium Amoxicillin 500 Amoxicillin/Clav 07/23/2019 TABL 500 mg ORAL acti ve [facility] MG / Clavulanate ulanate 08:56:00 AM ET [place] 125 MG Oral Potassium EST Hos pital Tablet Amoxicillin/Clav ulanate Potassium Amoxicillin 500 Amoxicillin/Clav 07/23/2019 TABL 500 mg ORAL comp leted [facility] MG / Clavulanate ulanate 08:56:00 AM ET [place] 125 MG Oral Potassium EST Hos pital Tablet Amoxicillin/Clav ulanate Potassium Amoxicillin 500 Amoxicillin/Clav 07/23/2019 TABL 500 mg ORAL comp leted [place] MG / Clavulanate ulanate 08:56:00 AM ET [place] 125 MG Oral Potassium EST Hos pital Tablet Amoxicillin/Clav ulanate Potassium Amoxicillin 500 Amoxicillin/Clav 07/23/2019 TABL 500 mg ORAL comp leted [facility] MG / Clavulanate ulanate 08:56:00 AM ET [place] 125 MG Oral Potassium EST Hos pital Tablet Amoxicillin/Clav ulanate Potassium Amoxicillin 500 Amoxicillin/Clav 07/23/2019 TABL 500 mg ORAL comp leted [place] MG / Clavulanate ulanate 08:56:00 AM ET [place] 125 MG Oral Potassium EST Hos pital Tablet Amoxicillin/Clav ulanate Potassium Amoxicillin 500 Amoxicillin/Clav 07/23/2019 TABL 500 mg ORAL comp leted [facility] MG / Clavulanate ulanate 08:56:00 AM ET [place] 125 MG Oral Potassium EST [facility] Tablet Amoxicillin/Clav ulanate Potassium Amoxicillin 500 Amoxicillin/Clav 07/23/2019 TABL 500 mg ORAL comp leted [facility] / Clavulanate ulanate 08:56:00 AM ET [place] 125 MG Oral Potassium EST [facility] Tablet Amoxicillin/Clav ulanate Potassium Amoxicillin 500 Amoxicillin/Clav 07/23/2019 TABL 500 mg ORAL acti ve [facility] / Clavulanate ulanate 08:56:00 AM ET [place] 125 MG Oral Potassium EST Hos [facility] Tablet Amoxicillin/Clav ulanate Potassium Amoxicillin 500 Amoxicillin/Clav 07/23/2019 TABL 500 mg ORAL comp leted [facility] / Clavulanate ulanate 08:56:00 AM ET [place] 125 MG Oral Potassium EST [facility] Tablet Amoxicillin/Clav ulanate Potassium Amoxicillin 500 Amoxicillin/Clav 07/23/2019 TABL 500 mg ORAL comp leted [facility] / Clavulanate ulanate 08:56:00 AM ET [place] 125 MG Oral Potassium EST Hos [facility] Tablet Amoxicillin/Clav ulanate Potassium Amoxicillin 500 Amoxicillin/Clav 07/23/2019 TABL 500 mg ORAL comp leted [facility] / Clavulanate ulanate 08:56:00 AM ET [place] 125 MG Oral Potassium EST Hos [facility]ital Tablet Amoxicillin/Clav ulanate Potassium Lorazepam 1 MG Lorazepam 07/22/2019 TABL 1 mg ORAL active [facility] Oral Tablet 07:29:00 PM ET P [facility] Lorazepam 1 MG Lorazepam 07/22/2019 TABL 1 mg ORAL completed [facility] Oral Tablet 07:29:00 PM ET P [facility] 12 HR Guaifenesin 07/22/2019 TABL 600 mg ORAL active [facility] Guaifenesin 600 07:29:00 PM ET, [place] MG Extended EST EXTE Hospital Release Oral NDED Tablet RELE ASE Lorazepam 1 MG Lorazepam 07/22/2019 TABL 1 mg ORAL completed [facility] Oral Tablet 07:29:00 PM ET P [facility] Methocarbamol Methocarbamol 07/22/2019 TABL 500 mg ORAL completed [facility] 500 MG Oral 07:29:00 PM ET P [facility] Methocarbamol Methocarbamol 07/22/2019 TABL 500 mg ORAL completed [facility] 500 MG Oral 07:29:00 PM ET [facility] Tablet [facility] Methocarbamol Methocarbamol 07/22/2019 TABL 500 mg ORAL completed [facility] 500 MG Oral 07:29:00 PM ET [facility] Tablet [facility] Lorazepam 1 MG Lorazepam 07/22/2019 TABL 1 mg ORAL completed [facility] Oral Tablet 07:29:00 PM ET P [facility] 12 HR Guaifenesin 07/22/2019 TABL 600 mg ORAL completed [facility] Guaifenesin 600 07:29:00 PM ET, [place] MG Extended EST EXTE Hospital Release Oral NDED Tablet RELE [facility] Methocarbamol Methocarbamol 07/22/2019 TABL 500 mg ORAL completed [facility] 500 MG Oral 07:29:00 PM ET P [facility] Tablet [facility] 12 HR Guaifenesin 07/22/2019 TABL 600 mg ORAL completed [facility] Guaifenesin 600 07:29:00 PM ET, [place] MG Extended EST EXTE Hospital Release Oral NDED Tablet RELE ASE 12 HR Guaifenesin 07/22/2019 TABL 600 mg ORAL active [facility] Guaifenesin 600 07:29:00 PM ET, [place] MG Extended EST EXTE Hospital Release Oral NDED Tablet RELE ASE Lorazepam 1 MG Lorazepam 07/22/2019 TABL 1 mg ORAL completed [facility] Oral Tablet 07:29:00 PM ET P [facility] 12 HR Guaifenesin 07/22/2019 TABL 600 mg ORAL completed [facility] Guaifenesin 600 07:29:00 PM ET, [place] MG Extended EST EXTE Hospital Release Oral NDED Tablet RELE ASE Lorazepam 1 MG Lorazepam 07/22/2019 TABL 1 mg ORAL completed [facility] Oral Tablet 07:29:00 PM ET P [facility] Methocarbamol Methocarbamol 07/22/2019 TABL 500 mg ORAL completed [facility] 500 MG Oral 07:29:00 PM ET P [facility] Tablet [facility] Lorazepam 1 MG Lorazepam 07/22/2019 TABL 1 mg ORAL active [facility] Oral Tablet 07:29:00 PM ET P [facility] 12 HR Guaifenesin 07/22/2019 TABL 600 mg ORAL completed [facility] Guaifenesin 600 07:29:00 PM ET, [place] MG Extended EST EXTE Hospital Release Oral NDED Tablet RELE [facility] Methocarbamol Methocarbamol 07/22/2019 TABL 500 mg ORAL active [place] 500 MG Oral 07:29:00 PM ET P [facility] Tablet [facility] Lorazepam 1 MG Lorazepam 07/22/2019 TABL 1 mg ORAL completed [facility] Oral Tablet 07:29:00 PM ET P [facility]ains [facility] 12 HR Guaifenesin 07/22/2019 TABL 600 mg ORAL completed [facility] Guaifenesin 600 07:29:00 PM ET, [place] MG Extended EST EXTE Hospital Release Oral NDED Tablet RELE A[facility] Methocarbamol Methocarbamol 07/22/2019 TABL 500 mg ORAL completed [place] 500 MG Oral 07:29:00 PM ET P [facility] Tablet [facility] 12 HR Guaifenesin 07/22/2019 TABL 600 mg ORAL completed [facility] Guaifenesin 600 07:29:00 PM ET, [place] MG Extended EST EXTE Hospital Release Oral NDED Tablet RELE ASE Lorazepam 1 MG Lorazepam 07/22/2019 TABL 1 mg ORAL active [place] Oral Tablet 07:29:00 PM ET P [facility] Methocarbamol Methocarbamol 07/22/2019 TABL 500 mg ORAL active [place] 500 MG Oral 07:29:00 PM ET P [facility] Tablet [facility] 12 HR Guaifenesin 07/22/2019 TABL 600 mg ORAL completed [facility] Guaifenesin 600 07:29:00 PM ET, [place] MG Extended EST EXTE Hospital Release Oral NDED Tablet [facility] Methocarbamol Methocarbamol 07/22/2019 TABL 500 mg ORAL completed [place] 500 MG Oral 07:29:00 PM [facility] Lorazepam 1 MG Lorazepam 07/22/2019 TABL 1 mg ORAL completed [facility] Oral Tablet 07:29:00 PM ET P [facility] Methocarbamol Methocarbamol 07/22/2019 TABL 500 mg ORAL completed [place] 500 MG Oral 07:29:00 PM ET P [facility] Tablet [facility] Lorazepam 1 MG Lorazepam 07/22/2019 TABL 1 mg ORAL completed [facility] Oral Tablet 07:29:00 PM [facility] Meth[facility] Methocarbamol 07/22/2019 TABL 500 mg ORAL completed [place] 500 MG Oral 07:29:00 PM ET [facility] Tablet [facility] Lorazepam 1 MG Lorazepam 07/22/2019 TABL 1 mg ORAL completed [facility] Oral Tablet 07:29:00 PM ET P [facility] Lorazepam 1 MG Lorazepam 07/22/2019 TABL 1 mg ORAL completed [facility] Oral Tablet 07:29:00 PM ET P [facility] EST Hospital 12 HR Guaifenesin 07/22/2019 TABL 600 mg ORAL completed [facility] Guaifenesin 600 07:29:00 PM ET, [place] MG Extended EST EXTE Hospital Release Oral NDED Tablet RELE ASE 12 HR Guaifenesin 07/22/2019 TABL 600 mg ORAL completed [facility] Guaifenesin 600 07:29:00 PM ET, [place] MG Extended EST EXTE Hospital Release Oral NDED Tablet RE[facility] Methocarbamol Methocarbamol 07/22/2019 TABL 500 mg ORAL completed [place] 500 MG Oral 07:29:00 PM ET [facility] Tablet EST Hospital 12 HR Guaifenesin 07/22/2019 TABL 600 mg ORAL completed [facility] Guaifenesin 600 07:29:00 PM ET, [place] MG Extended EST EXTE Hospital Release Oral NDED Tablet RELE ASE 12 HR Guaifenesin 07/22/2019 TABL 600 mg ORAL completed [facility] Guaifenesin 600 07:29:00 PM ET, [place] MG Extended EST EXTE Hospital Release Oral NDED Tablet [facility] Methocarbamol Methocarbamol 07/22/2019 TABL 500 mg ORAL completed [facility] 500 MG Oral 07:29:00 PM ET [facility] Tablet EST Hospital Lidocaine Lidocaine 07/22/2019 PAT 2 TOPICAL completed [facility] Hydrochloride 07:28:00 PM H {Patch [place] 0.05 MG/MG EST } Hospital Transdermal Patch [Lidoderm] Lidocaine Lidocaine 07/22/2019 PAT 2 TOPICAL active [facility] Hydrochloride 07:28:00 PM H {Patch [place] 0.05 MG/MG EST } Hospital Transdermal Patch [Lidoderm] Lidocaine Lidocaine 07/22/2019 PAT 2 TOPICAL completed [facility] Hydrochloride 07:28:00 PM H {Patch [place] 0.05 MG/MG EST } Hospital Transdermal Patch [Lidoderm] Lidocaine Lidocaine 07/22/2019 PAT 2 TOPICAL completed [facility] Hydrochloride 07:28:00 PM H {Patch [place] 0.05 MG/MG EST } Hospital Transdermal Patch [Lidoderm] Lidocaine Lidocaine 07/22/2019 PAT 2 TOPICAL completed [facility] Hydrochloride 07:28:00 PM H {Patch [place] 0.05 MG/MG EST } Hospital Transdermal Patch [Lidoderm] Lidocaine Lidocaine 07/22/2019 PAT 2 TOPICAL completed [facility] Hydrochloride 07:28:00 PM H {Patch [place] 0.05 MG/MG EST } [facility] Transdermal Patch [Lidoderm] Lidocaine Lidocaine 07/22/2019 [facility] 2 TOPICAL completed [place] Hydrochloride 07:28:00 PM H {Patch [place] 0.05 MG/MG EST } [facility] Transdermal Patch [Lidoderm] Lidocaine Lidocaine 07/22/2019 [facility] 2 TOPICAL completed [place] Hydrochloride 07:28:00 PM H {Patch [place] 0.05 MG/MG EST } [facility] Transdermal Patch [Lidoderm] Lidocaine Lidocaine 07/22/2019 [facility] 2 TOPICAL completed [facility] Hydrochloride 07:28:00 PM H {Patch [place] 0.05 MG/MG EST } [facility] Transdermal Patch [Lidoderm] Lidocaine Lidocaine 07/22/2019 [facility] 2 TOPICAL completed [place] Hydrochloride 07:28:00 PM H {Patch [place] 0.05 MG/MG EST } [facility] Transdermal Patch [Lidoderm] Lidocaine Lidocaine 07/22/2019 [facility] 2 TOPICAL completed [place] Hydrochloride 07:28:00 PM H {Patch [place] 0.05 MG/MG EST } [facility] Transdermal Patch [Lidoderm] Lidocaine Lidocaine 07/22/2019 [facility] 2 TOPICAL active [facility] Hydrochloride 07:28:00 PM H {Patch [place] 0.05 MG/MG EST } [facility] Transdermal Patch [Lidoderm] Lidocaine Lidocaine 07/22/2019 [facility] 2 TOPICAL completed [facility] Hydrochloride 07:28:00 PM H {Patch [place] 0.05 MG/MG EST } [facility] Transdermal Patch [Lidoderm] Aspirin 81 MG Aspirin 06/08/2019 TABL 81 mg ORAL completed [facility] Delayed Release 12:40:[address] [facility] Oral Tablet EST [facility] [Aspir-Low] ABLE Aspirin 81 MG Aspirin 06/08/2019 TABL 81 mg ORAL completed [facility] [Aspir-Low] ABLE Aspirin 81 MG Aspirin 06/08/2019 TABL 81 mg ORAL active [facility] [Aspir-Low] ABLE Aspirin 81 MG Aspirin 06/08/2019 TABL 81 mg ORAL completed [facility] Delayed Release 12:40:[address] [facility] Oral Tablet EST [facility] [Aspir-Low] ABLE Aspirin 81 MG Aspirin 06/08/2019 TABL 81 mg ORAL active [facility] Delayed Release 12:40:[address] [facility] Oral Tablet EST [facility] [Aspir-Low] ABLE Aspirin 81 MG Aspirin 06/08/2019 TABL 81 mg ORAL completed [facility] Delayed Release 12:40:00 PM ET, [place] Oral Tablet EST [facility] [Aspir-Low] ABLE Aspirin 81 MG Aspirin 06/08/2019 TABL 81 mg ORAL completed [facility] Delayed Release 12:40:00 PM ET, [place] Oral Tablet EST [facility]W Hospital [Aspir-Low] ABLE Aspirin 81 MG Aspirin 06/08/2019 TABL 81 mg ORAL completed [facility] Delayed Release 12:40:00 PM ET, [place] Oral Tablet EST [facility] Hospital [Aspir-Low] ABLE Aspirin 81 MG Aspirin 06/08/2019 TABL 81 mg ORAL completed [place] Delayed Release 12:40:00 PM ET, [place] Oral Tablet EST [facility] [Aspir-Low] ABLE Aspirin 81 MG Aspirin 06/08/2019 TABL 81 mg ORAL completed [place] Delayed Release 12:40:00 PM ET, [place] Oral Tablet EST [facility] Hospital [Aspir-Low] ABLE Aspirin 81 MG Aspirin 06/08/2019 TABL 81 mg ORAL completed [place] Delayed Release 12:40:00 PM ET, [place] Oral Tablet EST CHEW [facility] [Aspir-Low] ABLE Aspirin 81 MG Aspirin 06/08/2019 TABL 81 mg ORAL completed [place] Delayed Release 12:40:00 PM ET, [place] Oral Tablet EST [facility] Hospital [Aspir-Low] ABLE Aspirin 81 MG Aspirin 06/08/2019 TABL 81 mg ORAL completed [place] Delayed Release 12:40:00 PM ET, [place] Oral Tablet EST [facility]W Hospital [Aspir-Low] ABLE Aspirin 81 MG Aspirin 06/08/2019 TABL 81 mg ORAL completed [place] Delayed Release 12:40:00 PM ET, [place] Oral Tablet EST [facility]W Hospital [Aspir-Low] ABLE Aspirin 81 MG Aspirin 06/08/2019 TABL 81 mg ORAL completed [place] Delayed Release 12:40:00 PM ET, [place] Oral Tablet EST [facility]W Hospital [Aspir-Low] ABLE Aspirin 81 MG Aspirin 06/08/2019 TABL 81 mg ORAL active [facility] Delayed Release 12:40:00 PM ET, [place] Oral Tablet EST [facility]W Hospital [Aspir-Low] ABLE Meclizine Hcl 05/24/2019 TABL 25 mg ORAL completed [facility] 01:24:00 PM ET [facility] Meclizine Hcl 05/24/2019 TABL 25 mg ORAL completed [facility] 01:24:00 PM ET [facility] Meclizine Hcl 05/24/2019 TABL 25 mg ORAL active [place] 01:24:00 PM ET [facility] Meclizine Hcl 05/24/2019 TABL 25 mg ORAL completed [place] 01:24:00 PM ET [facility] Meclizine Hcl 05/24/2019 TABL 25 mg ORAL active [place] 01:24:00 PM ET [facility] Meclizine Hcl 05/24/2019 TABL 25 mg ORAL completed [place] 01:24:00 PM ET [facility] Meclizine Hcl 05/24/2019 TABL 25 mg ORAL active [place] 01:24:00 PM ET [facility] Meclizine Hcl 05/24/2019 TABL 25 mg ORAL active [place] 01:24:00 PM ET [facility] Meclizine Hcl 05/24/2019 TABL 25 mg ORAL completed [place] 01:24:00 PM ET [facility] Meclizine Hcl 05/24/2019 TABL 25 mg ORAL completed [place] 01:24:00 PM ET [facility] Meclizine Hcl 05/24/2019 TABL 25 mg ORAL active [place] 01:24:00 PM ET [facility] Meclizine Hcl 05/24/2019 TABL 25 mg ORAL completed [place] 01:24:00 PM ET [facility] Meclizine Hcl 05/24/2019 TABL 25 mg ORAL completed [place] 01:24:00 PM ET [facility] Meclizine Hcl 05/24/2019 TABL 25 mg ORAL completed [place] 01:24:00 PM ET [facility] Meclizine Hcl 05/24/2019 TABL 25 mg ORAL completed [place] 01:24:00 PM ET [facility] Meclizine Hcl 05/24/2019 TABL 25 mg ORAL completed [place] 01:24:00 PM ET [facility] Meclizine Hcl 05/24/2019 TABL 25 mg ORAL completed [place] 01:24:00 PM ET [facility] Lorazepam 0.5 MG Lorazepam 05/24/2019 TABL 0.5 mg ORAL completed [facility] Oral Tablet 01:21:00 PM ET [facility] Lorazepam 0.5 MG Lorazepam 05/24/2019 TABL 0.5 mg ORAL completed [facility] Oral Tablet 01:21:00 PM ET [facility] Lorazepam 0.5 MG Lorazepam 05/24/2019 TABL 0.5 mg ORAL completed [facility] Oral Tablet 01:21:00 PM ET [facility] Lorazepam 0.5 MG Lorazepam 05/24/2019 TABL 0.5 mg ORAL completed [place] Oral Tablet 01:21:00 PM ET [facility] Lorazepam 0.5 MG Lorazepam 05/24/2019 TABL 0.5 mg ORAL completed [place] Oral Tablet 01:21:00 PM ET [facility] Lorazepam 0.5 MG Lorazepam 05/24/2019 TABL 0.5 mg ORAL completed [place] Oral Tablet 01:21:00 PM ET [facility] Lorazepam 0.5 MG Lorazepam 05/24/2019 TABL 0.5 mg ORAL active [facility] Oral Tablet 01:21:00 PM ET [facility] Lorazepam 0.5 MG Lorazepam 05/24/2019 TABL 0.5 mg ORAL completed [place] Oral Tablet 01:21:00 PM ET [facility] Lorazepam 0.5 MG Lorazepam 05/24/2019 TABL 0.5 mg ORAL completed [place] Oral Tablet 01:21:00 PM ET [facility] Lorazepam 0.5 MG Lorazepam 05/24/2019 TABL 0.5 mg ORAL completed [place] Oral Tablet 01:21:00 PM ET [facility] Lorazepam 0.5 MG Lorazepam 05/24/2019 TABL 0.5 mg ORAL completed [place] Oral Tablet 01:21:00 PM ET [facility] Lorazepam 0.5 MG Lorazepam 05/24/2019 TABL 0.5 mg ORAL completed [place] Oral Tablet 01:21:00 PM ET [facility] Lorazepam 0.5 MG Lorazepam 05/24/2019 TABL 0.5 mg ORAL completed [place] Oral Tablet 01:21:00 PM ET [facility] Lorazepam 0.5 MG Lorazepam 05/24/2019 TABL 0.5 mg ORAL completed [place] Oral Tablet 01:21:00 PM ET [facility] Lorazepam 0.5 MG Lorazepam 05/24/2019 TABL 0.5 mg ORAL completed [place] Oral Tablet 01:21:00 PM ET [facility] Lorazepam 0.5 MG Lorazepam 05/24/2019 TABL 0.5 mg ORAL completed [place] Oral Tablet 01:21:00 PM ET [facility] Lorazepam 0.5 MG Lorazepam 05/24/2019 TABL 0.5 mg ORAL completed [place] Oral Tablet 01:21:00 PM ET [facility] Meclizine Meclizine Hcl 05/19/2019 TABL 25 mg ORAL completed [place] Hydrochloride 25 08:02:00 PM ET [place] [facility] Meclizine Hcl Meclizine Meclizine Hcl 05/19/2019 TABL 25 mg ORAL completed [place] Hydrochloride 25 08:02:00 PM ET [place] [facility] Oral Tablet [facility] Meclizine Hcl Meclizine Meclizine Hcl 05/19/2019 TABL 25 mg ORAL completed [place] Hydrochloride 25 08:02:00 PM ET [place] [facility] Oral Tablet [facility] Meclizine Hcl Meclizine Meclizine Hcl 05/19/2019 TABL 25 mg ORAL completed [place] Hydrochloride 25 08:02:00 PM ET [place] [facility] Oral Tablet [facility] Meclizine Hcl Meclizine Meclizine Hcl 05/19/2019 TABL 25 mg ORAL completed [place] Hydrochloride 25 08:02:00 PM ET [place] [facility] Oral Tablet [facility] Meclizine Hcl Meclizine Meclizine Hcl 05/19/2019 TABL 25 mg ORAL completed [place] Hydrochloride 25 08:02:00 PM ET [place] [facility] Oral Tablet [facility] Meclizine Hcl Meclizine Meclizine Hcl 05/19/2019 TABL 25 mg ORAL completed [place] Hydrochloride 25 08:02:00 PM ET [place] [facility] Oral Tablet [facility] Meclizine Hcl Meclizine Meclizine Hcl 05/19/2019 TABL 25 mg ORAL completed [place] Hydrochloride 25 08:02:00 PM ET [place] [facility] Oral Tablet [facility] Meclizine Hcl Meclizine Meclizine Hcl 05/19/2019 TABL 25 mg ORAL completed [place] Hydrochloride 25 08:02:00 PM ET [place] [facility] Oral Tablet [facility] Meclizine Hcl Meclizine Meclizine Hcl 05/19/2019 TABL 25 mg ORAL completed [place] Hydrochloride 25 08:02:00 PM ET [place] [facility] Oral Tablet [facility] Meclizine Hcl Meclizine Meclizine Hcl 05/19/2019 TABL 25 mg ORAL completed [place] Hydrochloride 25 08:02:00 PM ET [place] [facility] Oral Tablet [facility] Meclizine Hcl Meclizine Meclizine Hcl 05/19/2019 TABL 25 mg ORAL completed [place] Hydrochloride 25 08:02:00 PM ET [place] [facility] Oral Tablet [facility] Meclizine Hcl Meclizine Meclizine Hcl 05/19/2019 TABL 25 mg ORAL completed [place] Hydrochloride 25 08:02:00 PM ET [place] [facility] Oral Tablet [facility] Meclizine Hcl Meclizine Meclizine Hcl 05/19/2019 TABL 25 mg ORAL completed [place] Hydrochloride 25 08:02:00 PM ET [place] [facility] Oral Tablet [facility] Meclizine Hcl Meclizine Meclizine Hcl 05/19/2019 TABL 25 mg ORAL completed [place] Hydrochloride 25 08:02:00 PM ET [place] [facility] Oral Tablet [facility] Meclizine Hcl Meclizine Meclizine Hcl 05/19/2019 TABL 25 mg ORAL completed [place] Hydrochloride 25 08:02:00 PM ET [place] [facility] Oral Tablet [facility] Meclizine Hcl Meclizine Meclizine Hcl 05/19/2019 TABL 25 mg ORAL completed [place] Hydrochloride 25 08:02:00 PM ET [place] [facility] Oral Tablet [facility] Meclizine Hcl Meclizine Meclizine Hcl 05/19/2019 TABL 25 mg ORAL completed [place] Hydrochloride 25 08:02:00 PM ET [place] [facility] Tablet [facility] Meclizine Hcl Lorazepam 0.5 MG Lorazepam 03/10/2019 TABL 0.5 mg ORAL completed [facility] Oral Tablet 02:50:00 PM ET [facility] Lorazepam 0.5 MG Lorazepam 03/10/2019 TABL 0.5 mg ORAL completed [facility] Oral Tablet 02:50:00 PM ET [facility] Lorazepam 0.5 MG Lorazepam 03/10/2019 TABL 0.5 mg ORAL completed [facility] Oral Tablet 02:50:00 PM ET [facility] Lorazepam 0.5 MG Lorazepam 03/10/2019 TABL 0.5 mg ORAL completed [facility] Oral Tablet 02:50:00 PM ET [facility] Lorazepam 0.5 MG Lorazepam 03/10/2019 TABL 0.5 mg ORAL completed [facility] Oral Tablet 02:50:00 PM ET [facility] Lorazepam 0.5 MG Lorazepam 03/10/2019 TABL 0.5 mg ORAL completed [place] Oral Tablet 02:50:00 PM ET P [facility] Lorazepam 0.5 MG Lorazepam 03/10/2019 TABL 0.5 mg ORAL completed [place] Oral Tablet 02:50:00 PM ET P [facility] Lorazepam 0.5 MG Lorazepam 03/10/2019 TABL 0.5 mg ORAL completed [place] Oral Tablet 02:50:00 PM ET P [facility] Lorazepam 0.5 MG Lorazepam 03/10/2019 TABL 0.5 mg ORAL completed [place] Oral Tablet 02:50:00 PM ET P [facility] Lorazepam 0.5 MG Lorazepam 03/10/2019 TABL 0.5 mg ORAL completed [place] Oral Tablet 02:50:00 PM ET P [facility] Lorazepam 0.5 MG Lorazepam 03/10/2019 TABL 0.5 mg ORAL completed [place] Oral Tablet 02:50:00 PM ET P [facility] Lorazepam 0.5 MG Lorazepam 03/10/2019 TABL 0.5 mg ORAL completed [place] Oral Tablet 02:50:00 PM ET P [facility] Lorazepam 0.5 MG Lorazepam 03/10/2019 TABL 0.5 mg ORAL completed [place] Oral Tablet 02:50:00 PM ET [facility] Lorazepam 0.5 MG Lorazepam 03/10/2019 TABL 0.5 mg ORAL completed [place] Oral Tablet 02:50:00 PM ET [facility] Lorazepam 0.5 MG Lorazepam 03/10/2019 TABL 0.5 mg ORAL completed [place] Oral Tablet 02:50:00 PM ET P [facility] Lorazepam 0.5 MG Lorazepam 03/10/2019 TABL 0.5 mg ORAL completed [place] Oral Tablet 02:50:00 PM ET [facility] Lorazepam 0.5 MG Lorazepam 03/10/2019 TABL 0.5 mg ORAL completed [place] Oral Tablet 02:50:00 PM ET [facility] Lorazepam 0.5 MG Lorazepam 03/10/2019 TABL 0.5 mg ORAL completed [place] Oral Tablet 02:50:00 PM ET [facility] Lorazepam 0.5 MG Lorazepam 03/10/2019 TABL 0.5 mg ORAL completed [place] Oral Tablet 02:50:00 PM [facility] Lorazepam 0.5 MG Lorazepam 03/10/2019 TABL 0.5 mg ORAL completed [place] Oral Tablet 02:50:00 PM [facility] Lorazepam 0.5 MG Lorazepam 03/10/2019 TABL 0.5 mg ORAL completed [facility] Oral Tablet 02:50:00 PM [facility] Bacitracin Zinc 03/10/2019 OINT 1 TOPICAL completed [facility] Oint. .35GM 09:37:00 AM MENT {[facility] catwv} [facility] Bacitracin Zinc 03/10/2019 OINT 1 TOPICAL completed [facility] Oint. 35GM 09:37:00 AM MENT {[facility]} [facility] Bacitracin Zinc 03/10/2019 OINT 1 TOPICAL completed [facility] Oint. 35GM 09:37:00 AM MENT {[facility]} [facility] Bacitracin Zinc 03/10/2019 OINT 1 TOPICAL completed [facility] Oint. 35GM 09:37:00 AM MENT {[facility] catwv} [facility] Bacitracin Zinc 03/10/2019 OINT 1 TOPICAL completed [facility] Oint. 35GM 09:37:00 AM MENT {[facility]} [facility] Bacitracin Zinc 03/10/2019 OINT 1 TOPICAL completed [facility] Oint. 35GM 09:37:00 AM MENT {[facility] catwv} [facility] Bacitracin Zinc 03/10/2019 OINT 1 TOPICAL completed [facility] Oint. 35GM 09:37:00 [facility] Bacitracin Zinc 03/10/2019 OINT 1 TOPICAL completed [facility] Oint. 35GM 09:37:00 AM [facility] Bacitracin Zinc 03/10/2019 OINT 1 TOPICAL completed [facility] Oint. 35GM 09:37:00 AM MENT {[facility] catwv} [facility] Bacitracin Zinc 03/10/2019 OINT 1 TOPICAL completed [facility] Oint. 35GM 09:37:00 AM MENT {[facility] catwv} [facility] Bacitracin Zinc 03/10/2019 OINT 1 TOPICAL completed [facility] Oint. .35GM 09:37:00 AM MENT {[facility] EDT cator} [facility] Bacitracin Zinc 03/10/2019 OINT 1 TOPICAL completed [facility] Oint. 35GM 09:37:00 AM [facility] Bacitracin Zinc 03/10/2019 OINT 1 TOPICAL completed [facility] Oint. 35GM 09:37:00 AM MENT {[facility] EDT cator} [facility] Bacitracin Zinc 03/10/2019 OINT 1 TOPICAL completed [facility] Oint. .35GM 09:37:00 AM [facility] Bacitracin Zinc 03/10/2019 OINT 1 TOPICAL completed [facility] Oint. 35GM 09:37:00 AM [facility] Bacitracin Zinc 03/10/2019 OINT 1 TOPICAL completed [facility] Oint. 35GM 09:37:00 AM [facility] Bacitracin Zinc 03/10/2019 OINT 1 TOPICAL completed [facility] Oint. 35GM 09:37:00 AM [facility] Bacitracin Zinc 03/10/2019 OINT 1 TOPICAL completed [facility] Oint. 35GM 09:37:00 AM [facility] Bacitracin Zinc 03/10/2019 OINT 1 TOPICAL completed [facility] Oint. 35GM 09:37:00 AM [facility] Bacitracin Zinc 03/10/2019 OINT 1 TOPICAL completed [facility] Oint. 35GM 09:37:00 AM MENT {[facility] EDT cator} [facility] Bacitracin Zinc 03/10/2019 OINT 1 TOPICAL completed [facility] Oint. 35GM 09:37:00 AM MENT {[facility] EDT cator} [facility] Albuterol 1 Albuterol 03/03/2019 SOLU 5 mg RESPIRAT completed [facility] MG/ML Inhalant Sulfate Neb Soln 10:53:00 AM TION ORY [place] Solution 0.5% 20ML* EDT ([facility] Albuterol ION) Sulfate Neb Soln 0.5% 20ML* Albuterol 1 Albuterol 03/03/2019 SOLU 5 mg RESPIRAT completed [facility] MG/ML Inhalant Sulfate Neb Soln 10:53:00 AM TION ORY [place] Solution 0.5% 20ML* EDT ([facility] H [facility]spital Albuterol ION) Sulfate Neb Soln 0.5% 20ML* Albuterol 1 Albuterol 03/03/2019 SOLU 5 mg RESPIRAT completed [facility] MG/ML Inhalant Sulfate Neb Soln 10:53:00 AM TION ORY [place] Solution 0.5% 20ML* EDT ([facility]spital Albuterol ION) Sulfate Neb Soln 0.5% 20ML* Albuterol 1 Albuterol 03/03/2019 SOLU 5 mg RESPIRAT completed [place] MG/ML Inhalant Sulfate Neb Soln 10:53:00 AM TION ORY [place] Solution 0.5% 20ML* EDT ([facility]sp[facility] Albuterol ION) Sulfate Neb Soln 0.5% 20ML* Albuterol 1 Albuterol 03/03/2019 SOLU 5 mg RESPIRAT completed [place] MG/ML Inhalant Sulfate Neb Soln 10:53:00 AM TION ORY [place] Solution 0.5% 20ML* EDT ([facility] Albuterol ION) Sulfate Neb Soln 0.5% 20ML* Albuterol 1 Albuterol 03/03/2019 SOLU 5 mg RESPIRAT completed [place] MG/ML Inhalant Sulfate Neb Soln 10:53:00 AM TION ORY [place] Solution 0.5% 20ML* EDT ([facility] Albuterol ION) Sulfate Neb Soln 0.5% 20ML* Albuterol 1 Albuterol 03/03/2019 SOLU 5 mg RESPIRAT completed [place] MG/ML Inhalant Sulfate Neb Soln 10:53:00 AM TION ORY [place] Solution 0.5% 20ML* EDT ([facility]ital Albuterol ION) Sulfate Neb Soln 0.5% 20ML* Albuterol 1 Albuterol 03/03/2019 SOLU 5 mg RESPIRAT completed [place] MG/ML Inhalant Sulfate Neb Soln 10:53:00 AM TION ORY [place] Solution 0.5% 20ML* EDT ([facility] Albuterol ION) Sulfate Neb Soln 0.5% 20ML* Albuterol 1 Albuterol 03/03/2019 SOLU 5 mg RESPIRAT completed [place] MG/ML Inhalant Sulfate Neb Soln 10:53:00 AM TION ORY [place] Solution 0.5% 20ML* EDT ([facility]spital Albuterol ION) Sulfate Neb Soln 0.5% 20ML* quetiapine 100 Quetiapine 01/06/2019 TABL 100 mg ORAL completed [facility] MG Oral Tablet Fumarate 03:41:00 PM ET [place] [Seroquel] EDT Hospital Quetiapine Fumarate quetiapine 100 Quetiapine 01/06/2019 TABL 100 mg ORAL completed [facility] MG Oral Tablet Fumarate 03:41:00 PM ET [place] [Seroquel] EDT Hospital Quetiapine Fumarate quetiapine 100 Quetiapine 01/06/2019 TABL 100 mg ORAL completed [facility] MG Oral Tablet Fumarate 03:41:00 PM ET [place] [Seroquel] EDT Hospital Quetiapine Fumarate quetiapine 100 Quetiapine 01/06/2019 TABL 100 mg ORAL completed [facility] MG Oral Tablet Fumarate 03:41:00 PM ET [place] [Seroquel] EDT Hospital Quetiapine Fumarate quetiapine 100 Quetiapine 01/06/2019 TABL 100 mg ORAL completed [facility] MG Oral Tablet Fumarate 03:41:00 PM ET [place] [Seroquel] EDT Hospital Quetiapine Fumarate quetiapine 100 Quetiapine 01/06/2019 TABL 100 mg ORAL completed [facility] MG Oral Tablet Fumarate 03:41:00 PM ET [place] [Seroquel] EDT Hospital Quetiapine Fumarate quetiapine 100 Quetiapine 01/06/2019 TABL 100 mg ORAL completed [facility] MG Oral Tablet Fumarate 03:41:00 PM ET [place] [Seroquel] EDT Hospital Quetiapine Fumarate quetiapine 100 Quetiapine 01/06/2019 TABL 100 mg ORAL completed [facility] MG Oral Tablet Fumarate 03:41:00 PM ET [place] [Seroquel] EDT Hospital Quetiapine Fumarate quetiapine 100 Quetiapine 01/06/2019 TABL 100 mg ORAL completed [facility] MG Oral Tablet Fumarate 03:41:00 PM ET [place] [Seroquel] EDT Hospital Quetiapine Fumarate quetiapine 100 Quetiapine 01/06/2019 TABL 100 mg ORAL completed [facility] MG Oral Tablet Fumarate 03:41:00 PM [facility] [place] [facility] Quetiapine Fumarate quetiapine 100 Quetiapine 01/06/2019 TABL 100 mg ORAL completed [facility] MG Oral Tablet Fumarate 03:41:00 PM ET [place] [facility] Quetiapine Fumarate Lorazepam 0.5 MG Lorazepam 01/06/2019 TABL 0.5 mg ORAL completed [place] Oral Tablet 03:14:00 PM ET [facility] Lorazepam 0.5 MG Lorazepam 01/06/2019 TABL 0.5 mg ORAL completed [facility] Oral Tablet 03:14:00 PM ET [facility] Lorazepam 0.5 MG Lorazepam 01/06/2019 TABL 0.5 mg ORAL completed [place] Oral Tablet 03:14:00 PM ET [facility] Lorazepam 0.5 MG Lorazepam 01/06/2019 TABL 0.5 mg ORAL completed [facility] Oral Tablet 03:14:00 PM ET [facility] Lorazepam 0.5 MG Lorazepam 01/06/2019 TABL 0.5 mg ORAL completed [place] Oral Tablet 03:14:00 PM ET [facility] Lorazepam 0.5 MG Lorazepam 01/06/2019 TABL 0.5 mg ORAL completed [place] Oral Tablet 03:14:00 PM ET [facility] Lorazepam 0.5 MG Lorazepam 01/06/2019 TABL 0.5 mg ORAL completed [place] Oral Tablet 03:14:00 PM ET [facility] Lorazepam 0.5 MG Lorazepam 01/06/2019 TABL 0.5 mg ORAL completed [place] Oral Tablet 03:14:00 PM ET [facility] Lorazepam 0.5 MG Lorazepam 01/06/2019 TABL 0.5 mg ORAL completed [place] Oral Tablet 03:14:00 PM ET [facility] Lorazepam 0.5 MG Lorazepam 01/06/2019 TABL 0.5 mg ORAL completed [place] Oral Tablet 03:14:00 PM ET [facility] Lorazepam 0.5 MG Lorazepam 01/06/2019 TABL 0.5 mg ORAL completed [place] Oral Tablet 03:14:00 PM ET [facility] Lorazepam 0.5 MG Lorazepam 01/06/2019 TABL 0.5 mg ORAL completed [place] Oral Tablet 03:14:00 PM ET [facility] Lorazepam 0.5 MG Lorazepam 01/06/2019 TABL 0.5 mg ORAL completed [place] Oral Tablet 03:14:00 PM ET [facility] Lorazepam 0.5 MG Lorazepam 01/06/2019 TABL 0.5 mg ORAL completed [place] Oral Tablet 03:14:00 PM ET [facility] Lorazepam 0.5 MG Lorazepam 01/06/2019 TABL 0.5 mg ORAL completed [place] Oral Tablet 03:14:00 PM ET [facility] Lorazepam 0.5 MG Lorazepam 01/06/2019 TABL 0.5 mg ORAL completed [place] Oral Tablet 03:14:00 PM ET [facility] Lorazepam 0.5 MG Lorazepam 01/06/2019 TABL 0.5 mg ORAL completed [place] Oral Tablet 03:14:00 PM ET [facility] Calcium Calcium 12/15/2018 TABL 1250 ORAL completed [place] Carbonate 1250 Carbonate 02:00:00 PM ET mg [place] MG Oral Tablet EDT [facility] Calcium Calcium 12/15/2018 TABL 1250 ORAL completed [place] Carbonate 1250 Carbonate 02:00:00 PM ET mg [place] MG Oral Tablet EDT [facility] Calcium Calcium 12/15/2018 TABL 1250 ORAL completed [place] Carbonate 1250 Carbonate 02:00:00 PM ET mg [place] MG Oral Tablet EDT [facility] Calcium Calcium 12/15/2018 TABL 1250 ORAL completed [place] Carbonate 1250 Carbonate 02:00:00 PM ET mg [place] MG [facility] Calcium Calcium 12/15/2018 TABL 1250 ORAL completed [place] Carbonate 1250 Carbonate 02:00:00 PM ET mg [place] MG [facility] Cal[facility] Calcium 12/15/2018 TABL 1250 ORAL completed [place] Carbonate 1250 Carbonate 02:00:00 PM ET mg [place] MG Oral Tablet EDT [facility] heaven Calcium Calcium 12/15/2018 TABL 1250 ORAL completed [place] Carbonate 1250 Carbonate 02:00:00 PM ET mg [place] MG Oral Tablet EDT [facility] Calcium Calcium 12/15/2018 TABL 1250 ORAL completed [place] Carbonate 1250 Carbonate 02:00:00 PM ET mg [place] MG Oral Tablet EDT [facility] Calcium Calcium 12/15/2018 TABL 1250 ORAL completed [place] Carbonate 1250 Carbonate 02:00:00 PM ET mg [place] MG Oral Tablet EDT [facility] Calcium Calcium 12/15/2018 TABL 1250 ORAL completed [place] Carbonate 1250 Carbonate 02:00:00 PM ET mg [place] MG Oral Tablet EDT [facility] Calcium Calcium 12/15/2018 TABL 1250 ORAL completed [place] Carbonate 1250 Carbonate 02:00:00 PM ET mg [place] MG Oral Tablet EDT [facility] Calcium Calcium 12/15/2018 TABL 1250 ORAL completed [place] Carbonate 1250 Carbonate 02:00:00 PM ET mg [place] MG Oral Tablet EDT [facility] Calcium Calcium 12/15/2018 TABL 1250 ORAL completed [place] Carbonate 1250 Carbonate 02:00:00 PM ET mg [place] MG Oral Tablet EDT [facility] Calcium Calcium 12/15/2018 TABL 1250 ORAL completed [place] Carbonate 1250 Carbonate 02:00:00 PM ET mg [place] MG Oral Tablet EDT [facility] Calcium Calcium 12/15/2018 TABL 1250 ORAL completed [place] Carbonate 1250 Carbonate 02:00:00 PM ET mg [place] MG Oral Tablet EDT [facility] Calcium Calcium 12/15/2018 TABL 1250 ORAL completed [place] Carbonate 1250 Carbonate 02:00:00 PM ET mg [place] MG Oral Tablet [facility] Calcium Calcium 12/15/2018 TABL 1250 ORAL completed [place] Carbonate 1250 Carbonate 02:00:00 PM ET mg [place] MG Oral Tablet EDT [facility] Calcium Calcium 12/15/2018 TABL 1250 ORAL completed [place] Carbonate 1250 Carbonate 02:00:00 PM ET mg [place] MG Oral Tablet EDT [facility] Levothyroxine Levothyroxine 09/14/2018 TABL 150 ug ORAL completed [facility] Sodium 0.15 MG Sodium 12:22:00 PM ET [place] Oral Tablet [facility] [Synthroid] Amlodipine 10 MG Amlodipine 09/14/2018 TABL 10 mg ORAL completed [facility] Oral Tablet Besylate 12:22:00 PM ET [place] [Norvasc] [facility] Amlodipine Besylate Amlodipine 10 MG Amlodipine 09/14/2018 TABL 10 mg ORAL completed [facility] Oral Tablet Besylate 12:22:00 PM ET [place] [Norvas] [facility] Amlodipine Besylate Amlodipine 10 MG Amlodipine 09/14/2018 TABL 10 mg ORAL completed [facility] Oral Tablet Besylate 12:22:00 PM ET [place] [[facility]] [facility] Amlodipine Besylate Levothyroxine Levothyroxine 09/14/2018 TABL 150 ug ORAL completed [facility] Sodium 0.15 MG Sodium 12:22:00 PM ET [place] Oral Tablet [facility] [Synthroid] Levothyroxine Levothyroxine 09/14/2018 TABL 150 ug ORAL completed [facility] Sodium 0.15 MG Sodium 12:22:00 PM ET [place] Oral Tablet [facility] [Synthroid] Levothyroxine Levothyroxine 09/14/2018 TABL 150 ug ORAL completed [facility] Sodium 0.15 MG Sodium 12:22:00 PM ET [place] Oral Tablet [facility] [Synthroid] Levothyroxine Levothyroxine 09/14/2018 TABL 150 ug ORAL completed [place] Sodium 0.15 MG Sodium 12:22:00 PM ET [place] Oral Tablet [facility] [Synthroid] Amlodipine 10 MG Amlodipine 09/14/2018 TABL 10 mg ORAL completed [place] Oral Tablet Besylate 12:22:00 PM ET [place] [[facility]] [facility] Amlodipine Besylate Levothyroxine Levothyroxine 09/14/2018 TABL 150 ug ORAL completed [place] Sodium 0.15 MG Sodium 12:22:00 PM ET [place] Oral Tablet [facility] [Synthroid] Levothyroxine Levothyroxine 09/14/2018 TABL 150 ug ORAL completed [place] Sodium 0.15 MG Sodium 12:22:00 PM ET [place] Oral Tablet [facility] [Synthroid] Amlodipine 10 MG Amlodipine 09/14/2018 TABL 10 mg ORAL completed [place] Oral Tablet Besylate 12:22:00 PM ET [place] [[facility]] [facility] Amlodipine Besylate Amlodipine 10 MG Amlodipine 09/14/2018 TABL 10 mg ORAL completed [place] Oral Tablet Besylate 12:22:00 PM ET [place] [[facility]] [facility] Amlodipine Besylate Levothyroxine Levothyroxine 09/14/2018 TABL 150 ug ORAL completed [place] Sodium 0.15 MG Sodium 12:22:00 PM ET [place] Oral Tablet [facility] [Synthroid] Amlodipine 10 MG Amlodipine 09/14/2018 TABL 10 mg ORAL completed [place] Oral Tablet Besylate 12:22:00 PM ET [place] [[facility]] [facility] Amlodipine Besylate Levothyroxine Levothyroxine 09/14/2018 TABL 150 ug ORAL completed [place] Sodium 0.15 MG Sodium 12:22:00 PM ET [place] Oral Tablet [facility] [Synthroid] Amlodipine 10 MG Amlodipine 09/14/2018 TABL 10 mg ORAL completed [place] Oral Tablet Besylate 12:22:00 PM ET [place] [[facility]] [facility] Amlodipine Besylate Levothyroxine Levothyroxine 09/14/2018 TABL 150 ug ORAL completed [place] Sodium 0.15 MG Sodium 12:22:00 PM ET [place] Oral Tablet [facility] [Synthroid] Amlodipine 10 MG Amlodipine 09/14/2018 TABL 10 mg ORAL completed [place] Oral Tablet Besylate 12:22:00 PM ET [place] [[facility]] [facility] Amlodipine Besylate Amlodipine 10 MG Amlodipine 09/14/2018 TABL 10 mg ORAL completed [place] Oral Tablet Besylate 12:22:00 PM ET [place] [[facility]] [facility] Amlodipine Besylate Amlodipine 10 MG Amlodipine 09/14/2018 TABL 10 mg ORAL completed [place] Oral Tablet Besylate 12:22:00 PM ET [place] [[facility]] [facility] Amlodipine Besylate Levothyroxine Levothyroxine 09/14/2018 TABL 150 ug ORAL completed [place] Sodium 0.15 MG Sodium 12:22:00 PM ET [place] Oral Tablet [facility] [Synthroid] Omeprazole 0.667 Omeprazole 40 mg ORAL completed [place] MG/ML Oral Magnesium [facility] [Prilosec] Omeprazole Magnesium apixaban 2.5 MG Apixaban TABL 2.5 mg ORAL completed [place] Oral Tablet ET [place] [Eliquis] [facility] Apixaban Hydroxyzine Hydroxyzine CAPS 1 ORAL completed [facility] Pamoate 50 MG Pamoate ULE {Capsu [facility] Oral Capsule le} Hospita l [Vistaril] quetiapine 200 Quetiapine TABL 200 mg ORAL completed [place] MG Oral Tablet Fumarate [facility] Fumarate Warfarin Sodium Warfarin Sodium TABL 2 mg ORAL completed [facility] 2 MG Oral Tablet ET [place] [facility]Coumadin] [facility] quetiapine 200 Quetiapine TABL 200 mg ORAL completed [place] MG Oral Tablet Fumarate [facility] Fumarate Aspirin 325 MG Aspirin TABL 325 mg ORAL completed [place] Oral Tablet ET [place] [[place] Aspirin] Hosp ital Omeprazole 40 MG Omeprazole CAPS 40 mg ORAL completed [facility] Delayed Release ULE, Plai [facility] Oral Capsule DANTE Hospita l YED RELE ASE quetiapine 200 Quetiapine TABL 200 mg ORAL completed [place] MG Oral Tablet Fumarate [facility] Fumarate 24 HR Propranolol Hcl CONT 160 mg ORAL completed [facility] Propranolol ROLL [place] Hydrochloride 80 ED Hos pital MG Extended RELE Release Oral ASE Capsule CAPS Propranolol Hcl ULE Multivitamin TABL 1 ORAL completed Wh ite ET {Each} [facility] Warfarin Sodium Warfarin Sodium TABL 2 mg ORAL completed [facility] 2 MG Oral Tablet ET [place] [facility] [Coumadin] [facility] aripiprazole 30 Aripiprazole TABL 30 mg ORAL completed [place] MG Oral Tablet ET [facility] [[facility]] [facility] Aripiprazole 24 HR quetiapine Quetiapine TABL 1 ORAL completed [facility] 400 MG Extended Fumarate ET, {Capsu [place] Release Oral EXTE le} Hospita l Tablet NDED Quetiapine RELE Fumarate ASE Warfarin Sodium Warfarin Sodium TABL 2 mg ORAL completed [facility] 2 MG Oral Tablet ET [place] [facility] [Coumadin] [facility] Cyanocobalamin TABL 1 ORAL completed [facility] (Vitamin B-12) ET {Capsu [place] ins le} Hospital 24 HR quetiapine Quetiapine TABL 400 mg ORAL completed [facility] 400 MG Extended Fumarate ET, [place] Release Oral EXTE Hospita l Tablet NDED Quetiapine RELE Fumarate ASE montelukast 10 Montelukast TABL 10 mg ORAL completed [facility] MG Oral Tablet Sodium ET [place] ins [facility] Sodium sevelamer Sevelamer TABL 800 mg ORAL completed [facility] carbonate 800 MG Carbonate ET [place] Oral Tablet [facility] [[facility]] Sevelamer Carbonate aripiprazole 30 Aripiprazole TABL 30 mg ORAL completed [place] MG Oral Tablet ET [place] [facility] [[facility]] [facility] Aripiprazole montelukast 10 Montelukast TABL 10 mg ORAL completed [facility] MG Oral Tablet Sodium ET [place] [facility] [Singulair] [facility] Montelukast Sodium Quetiapine 200 mg ORAL completed Wh ite Fumarate [facility] Multivitamin TABL 1 ORAL completed ite ET {Each} [facility] Hydromorphone Hydromorphone TABL 4 mg ORAL completed [facility] Hydrochloride 4 Hcl ET Plai ns MG Oral Tablet Hospi heaven Hydromorphone Hcl Quetiapine UNSP 200 mg ORAL completed Wh ite ECIF [facility] [facility] Hyoscyamine Hyoscyamine TABL 1 ORAL completed [facility] Sulfate 0.125 MG Sulfate ET {Capsu [place] Oral Tablet le} Hospital [[facility]] Hydromorphone Hydromorphone TABL 4 mg ORAL completed [facility] Hydrochloride 4 Hcl ET Plai ns MG Oral Tablet Hospi [facility] Hydromorphone Hcl Hyoscyamine Hyoscyamine TABL 1 ORAL completed [facility] Sulfate 0.125 MG Sulfate ET {Capsu [place] Oral Tablet le} Hospital [[facility]] apixaban 2.5 MG Apixaban TABL 2.5 mg ORAL completed [place] Oral Tablet ET [place] [Eliqu] Hospital Apixaban Sucralfate 1000 Sucralfate TABL 1 ORAL completed [facility] MG Oral Tablet ET {Capsu [place] ins le} Hospital Colchicine 0.6 Colchicine TABL ORAL completed [place] MG Oral Tablet ET [place] [facility] [Colcrys] [facility] Colchicine 0.6 Colchicine TABL ORAL completed [place] MG Oral Tablet ET [place] [facility] [Colcrys] [facility] Furosemide 80 MG Furosemide TABL 80 mg ORAL completed [place] Oral Tablet ET [place] [Lasix] Hospital Sucralfate 1000 Sucralfate TABL 1 g ORAL completed [place] MG Oral Tablet ET [place] [facility] [Carafate] Hospital Sevelamer Sevelamer Hcl TABL 800 mg ORAL completed [facility] hydrochloride ET [place] 800 MG Oral Hospital Tablet [RenaGel] Se[facility]amer Hcl Quetiapine UNSP 200 mg ORAL completed ite [facility] Calcium Calcium TABL 1 ORAL completed Whit e Carbonate 1250 Carbonate ET {Capsu [place] MG Oral Tablet le} Hospi heaven Quetiapine 200 mg ORAL completed ite [facility] Folic Acid 0.8 Folic Acid TABL 0.8 mg ORAL completed [place] MG Oral Tablet ET [place] [facility] Hydroxyzine Hydroxyzine CAPS 50 mg ORAL completed [facility] Pamoate 50 MG Pamoate ULE [place] [facility] Oral Capsule Hospita l Aspirin 325 MG Aspirin TABL 325 mg ORAL completed [facility] Oral Tablet ET [place] [[place] Aspirin] Hosp ital sevelamer Sevelamer TABL 800 mg ORAL completed [facility] carbonate 800 MG Carbonate ET [place] Oral Tablet [facility] [Renvela] Se[facility]amer Carbonate 24 HR Propranolol Hcl CONT 160 mg ORAL completed [facility] Propranolol ROLL [place] Hydrochloride 80 ED Hos pital MG Extended RELE Release Oral ASE Capsule CAPS Propranolol Hcl ULE Pravastatin Pravastatin TABL 40 mg ORAL completed [facility] Sodium 20 MG Sodium ET [facility] Oral Tablet [facility] Omeprazole 0.667 Omeprazole 40 mg ORAL completed [facility] MG/ML Oral Magnesium [facility] Omeprazole Magnesium sevelamer Sevelamer TABL 800 mg ORAL completed [facility] carbonate 800 MG Carbonate ET [place] Oral Tablet [facility] [Renvela] Sevelamer Carbonate Omeprazole 40 MG Omeprazole CAPS 40 mg ORAL completed [facility] Delayed Release ULE, Plai ns Oral Capsule DANTE Hospita l YED RELE ASE Quetiapine UNSP 200 mg ORAL completed Wh ite ECIF [place] [facility] Folic Acid 0.8 Folic Acid TABL 0.8 mg ORAL completed [place] MG Oral Tablet [facility] Furosemide 80 MG Furosemide TABL 80 mg ORAL completed [place] Oral Tablet ET [place] [Lasix] [facility] Calcium Calcium TABL 1 ORAL completed Whit e Carbonate 1250 Carbonate ET {Capsu [place] MG Oral Tablet le} Hospi heaven Folic Acid 0.8 Folic Acid TABL 0.8 mg ORAL completed [place] MG Oral Tablet ET [facility] Omeprazole 40 MG Omeprazole CAPS 40 mg ORAL completed [place] Delayed Release ULE, Plai ns Oral Capsule DANTE Hospita l YED RELE ASE Amylases 917711 Amylase/Lipase/P CAPS 2 ORAL completed [facility] UNT / rotease ULE, {Capsu [place] Endopeptidases DANTE le} Hospi heaven 21546 UNT / YED Lipase 69378 UNT RELE Delayed Release ASE Oral Capsule [...] mg ORAL completed [facility] dihydrochloride Dihydrochloride ET [place] 0.25 MG Oral Hospita l Tablet [Mirapex] Pramipexole Dihydrochloride 24 HR Propranolol Hcl CONT 160 mg ORAL completed [facility] Propranolol ROLL [place] Hydrochloride 80 ED Hos pital MG Extended RELE Release Oral ASE Capsule CAPS Propranolol Hcl ULE Omeprazole 40 MG Omeprazole CAPS 40 mg ORAL completed [place] Delayed Release ULE, Plai ns Oral Capsule DANTE Hospita l YED RELE ASE Amylases 612525 Amylase/Lipase/P CAPS 631217 ORAL completed [facility] UNT / rotease ULE, [place] Endopeptidases DANTE Hospi [facility] 62288 UNT / YED Lipase 84785 UNT RELE Delayed Release ASE Oral Capsule [Creon] Amylase/Lipase/P rotease Omeprazole 0.667 Omeprazole 40 mg ORAL completed [place] MG/ML Oral Magnesium [facility] [Prilosec] Omeprazole Magnesium quetiapine 100 Quetiapine TABL 100 mg ORAL completed [facility] MG Oral Tablet Fumarate ET [facility] Fumarate Hydromorphone Hydromorphone TABL 4 mg ORAL completed [facility] Hydrochloride 4 Hcl ET Plai ns MG Oral Tablet Hospi heaven Hydromorphone Hcl febuxostat 40 MG Febuxostat TABL 40 mg ORAL completed [place] Oral Tablet ET [place] [Uloric] [facility] Febuxostat 24 HR Propranolol Hcl CAPS 160 mg ORAL completed [facility] Propranolol ULE, [place] Hydrochloride EXTE Hospit al 160 MG Extended NDED Release Oral RELE Capsule ASE Propranolol Hcl Hydromorphone Hydromorphone TABL 4 mg ORAL completed [facility] Hydrochloride 4 Hcl ET Plai ns MG Oral Tablet Hospi heaven Hydromorphone Hcl Multivitamin TABL 1 ORAL completed Wh ite ET {Each} [facility] Amylases 287663 Amylase/Lipase/P CAPS 1 ORAL completed White UNT / rotease ULE, {Capsu [place] Endopeptidases DANTE le} Hospi [facility] 45716 UNT / YED Lipase 31016 UNT RELE Delayed Release ASE Oral Capsule [Creon] Amylase/Lipase/P rotease Quetiapine UNSP 200 mg ORAL completed ite [facility] Levothyroxine Levothyroxine TABL 150 ug ORAL completed [facility] Sodium 0.15 MG Sodium ET [place] [facility] Oral Tablet [facility] Prochlorperazine Prochlorperazine TABL 10 mg ORAL completed [facility] 5 MG Oral Tablet Maleate ET [place] Prochlorperazine Hos pital Maleate Folic Acid 0.8 Folic Acid TABL 0.8 mg ORAL completed [facility] MG Oral Tablet ET [facility] Folic Acid 0.8 Folic Acid TABL 0.8 mg ORAL completed [place] MG Oral Tablet ET [facility] aripiprazole 30 Aripiprazole TABL 30 mg ORAL completed [facility] MG Oral Tablet ET [place] [facility] Aripiprazole Folic Acid TABL 1 mg ORAL completed Whit e ET [facility] Warfarin Sodium Warfarin Sodium TABL 4 mg ORAL completed [facility] 4 MG Oral Tablet ET [facility] Quetiapine UNSP 200 mg [facility]AL [facility] Am[facility] [id number] Amylase/Lipase/P CAPS 950338 ORAL completed [facility] UNT / rotease ULE, [place] Endopeptidases DANTE Hospi [facility] 10023 UNT / YED Lipase 77441 UNT RELE Delayed Release ASE Oral Capsule [Creon] Amylase/Lipase/P rotease quetiapine 200 Quetiapine TABL 200 mg ORAL completed [facility] MG Oral Tablet Fumarate ET [facility] Fumarate 24 HR Propranolol Hcl CAPS 160 mg ORAL completed [facility] Propranolol ULE, [place] Hydrochloride EXTE Hospit al 160 MG Extended NDED Release Oral RELE Capsule ASE Propranolol Hcl Aspirin 325 MG Aspirin TABL 325 mg ORAL completed [facility] Oral Tablet ET [place] [[place] Aspirin] Hosp ital Amylases 122788 Amylase/Lipase/P CAPS 201591 ORAL completed [facility] UNT / rotease E, [place] Endopeptidases DANTE Hospi [facility] 54703 UNT / YED Lipase 54209 UNT RELE Delayed Release ASE Oral Capsule [Creon] Amylase/Lipase/P rotease Pramipexole Pramipexole TABL 0.5 mg ORAL completed [facility] dihydrochloride Dihydrochloride ET [place] 0.25 MG Oral Hospita l Tablet [Mirapex] Pramipexole Dihydrochloride Colchicine 0.6 Colchicine TABL ORAL completed [facility] MG Oral Tablet ET [place] [facility] [Colcrys] [facility] Pramipexole Pramipexole TABL 0.5 mg ORAL completed [facility] dihydrochloride Dihydrochloride ET [place] 0.25 MG Oral Hospita l Tablet [Mirapex] Pramipexole Dihydrochloride apixaban 2.5 MG Apixaban TABL 2.5 mg ORAL completed [place] Oral Tablet ET [place] [Eliqu] [facility] Apixaban 24 HR Propranolol Hcl CAPS 160 mg ORAL completed [facility] Propranolol ULE, [place] Hydrochloride EXTE Hospit al 160 MG Extended NDED Release Oral RELE Capsule ASE Propranolol Hcl Furosemide 80 MG Furosemide TABL 80 mg ORAL completed [facility] Oral Tablet ET [place] [Lasix] [facility] Quetiapine UNSP 200 mg ORAL completed Wh ite ECIF [place] [facility] Amylases 112578 Amylase/Lipase/P CAPS 196411 ORAL completed [facility] UNT / rotease ULE, [place] Endopeptidases DANTE Hospi [facility] 70470 UNT / YED Lipase 67143 UNT RELE Delayed Release ASE Oral Capsule [Creon] Amylase/Lipase/P rotease Vitamin B 12 1 Cyanocobalamin TABL 1000 ORAL completed [facility] MG Oral Tablet ET [facility] quetiapine 100 Quetiapine TABL 100 mg ORAL completed [facility] MG Oral Tablet Fumarate ET [facility]Seroquel[facility] Quetiapine Fumarate Hydromorphone Hydromorphone TABL 4 mg ORAL completed [facility] Hydrochloride 4 Hcl ET [facility] MG Oral Tablet [facility] Hydromorphone Hcl Warfarin Sodium Warfarin Sodium TABL 2 mg ORAL completed [facility] 2 MG Oral Tablet ET [place] [facility] [Coumadin] [facility] 10 Montelukast TABL 10 mg ORAL completed [facility] MG Oral Tablet Sodium ET [facility] Sodium Pramipexole Pramipexole TABL 0.5 mg ORAL completed [facility] dihydrochloride Di-Hcl ET Pl ains 0.5 MG Oral Hospital Tablet Pramipexole Di-Hcl 24 HR quetiapine Quetiapine TABL 400 mg ORAL completed [facility] 400 MG Extended Fumarate ET, [place] Release Oral EXTE [facility]ospita [facility] Tablet NDED Quetiapine RELE Fumarate ASE Omeprazole 0.667 Omeprazole 40 mg ORAL completed [facility] MG/ML Oral Magnesium [facility] [Prilosec] Omeprazole Magnesium Omeprazole 0.667 Omeprazole 40 mg ORAL completed [facility] MG/ML Oral Magnesium [facility] [Prilosec] Omeprazole Magnesium Furosemide 80 MG Furosemide TABL 80 mg ORAL completed [facility] Oral Tablet ET [place] [Lasix] [facility] Levothyroxine Levothyroxine TABL 150 ug ORAL completed [facility] Sodium 0.15 MG Sodium ET [facility] Oral Tablet [facility] Warfarin Sodium Warfarin Sodium TABL 4 mg ORAL completed [facility] 4 MG Oral Tablet ET [place] [facility] Pramipexole Pramipexole TABL 0.5 mg ORAL completed [facility] dihydrochloride Di-Hcl ET Pl ains 0.5 MG Oral Hospital Tablet Pramipexole Di-Hcl Amylases [id number] Amylase/Lipase/P CAPS 1 ORAL completed [facility] UNT / rotease ULE, {Capsu [place] Endopeptidases DANTE le} [facility] 47018 UNT / YED Lipase 73245 UNT RELE Delayed Release ASE Oral Capsule [Creon] Amylase/Lipase/P rotease 12 HR Carbamazepine SUST 300 mg ORAL completed [facility] Carbamazepine TAMEKA [place] 200 MG Extended D [facility]osp [facility] Release Oral RELE Tablet ASE [Tegretol] TABL ET Hyoscyamine Hyoscyamine TABL 1 ORAL completed [facility] Sulfate 0.125 MG Sulfate ET {Capsu [place] Oral Tablet le} Hospital [Levsin] Pramipexole Pramipexole TABL 0.5 mg ORAL completed [facility] dihydrochloride Di-Hcl ET Pl ains 0.5 MG Oral Hospital Tablet Pramipexole Di-Hcl Quetiapine completed [facility] e [facility] 24 HR Propranolol Hcl CAPS 160 mg ORAL completed [facility] Propranolol ULE, [place] Hydrochloride EXTE Hospit al 160 MG Extended NDED Release Oral RELE Capsule ASE Propranolol Hcl Amylases [id number] Amylase/Lipase/P CAPS 1 ORAL completed [facility] UNT / rotease ULE, {Capsu [place] Endopeptidases DANTE le} [facility] 36129 UNT / YED Lipase 19581 UNT RELE Delayed Release ASE Oral Capsule [Creon] Amylase/Lipase/P rotease 24 HR Propranolol Hcl CONT 160 mg ORAL completed [facility] Propranolol ROLL [place] Hydrochloride 80 ED [facility] MG Extended RELE Release Oral ASE Capsule CAPS Propranolol Hcl ULE Quetiapine 200 mg ORAL completed ite [facility] Omeprazole TABL 40 mg ORAL completed i te Magnesium ET, [facility] YED RELE ASE quetiapine 200 Quetiapine TABL 200 mg ORAL completed [facility] MG Oral Tablet Fumarate ET [facility] Fumarate Warfarin Sodium Warfarin Sodium TABL 2 mg ORAL completed [facility] 2 MG Oral Tablet ET [place] [facility] [Coumadin] [facility] Warfarin Sodium Warfarin Sodium TABL 4 mg ORAL completed [facility] 4 MG Oral Tablet ET [place] [facility] montelukast 10 Montelukast TABL 10 mg ORAL completed [facility] MG Oral Tablet Sodium ET [place] [facility] [Singulair] [facility] Montelukast Sodium Amylases [id number] Amylase/Lipase/P CAPS 2 ORAL completed [facility] UNT / rotease ULE, {Capsu [place] Endopeptidases DANTE le} [facility] 69544 UNT / YED Lipase 46643 UNT RELE Delayed Release ASE Oral Capsule [Creon] Amylase/Lipase/P rotease Aspirin 325 MG Aspirin TABL 325 mg ORAL completed [facility] Oral Tablet ET [place] [[place] Aspirin] [facility]osp [facility] Hydroxyzine Hydroxyzine CAPS 1 ORAL completed [facility] Pamoate 50 MG Pamoate ULE {Capsu [facility] Oral Capsule le} Hospita [facility] [Vistaril] Omeprazole 0.667 Omeprazole 40 mg ORAL completed [facility] MG/ML Oral Magnesium [facility] Omeprazole Magnesium 24 HR quetiapine Quetiapine TABL 400 mg ORAL completed [facility] 400 MG Extended Fumarate ET, [place] Release Oral EXTE [facility]ospita [facility] Tablet NDED Quetiapine RELE Fumarate ASE Beclomethasone 2 RESPIRAT completed [facility] Dipropionate ORY [place] ([facility]) Hydroxyzine Hydroxyzine CAPS 50 mg ORAL completed [facility] Pamoate 50 MG Pamoate ULE [place] [facility] Oral Capsule [facility]ospita [facility] Quetiapine completed Whit e [facility] aripiprazole Aripiprazole 30 mg ORAL completed [facility] Aripiprazole [facility] 24 HR quetiapine Quetiapine TABL 400 mg ORAL completed [facility] 400 MG Extended Fumarate ET, [place] Release Oral EXTE [facility]ospita [facility] Tablet NDED Quetiapine RELE Fumarate ASE 24 HR quetiapine Quetiapine TABL 1 ORAL completed [facility] 400 MG Extended Fumarate ET, {Capsu [place] Release Oral EXTE le} Hospita l Tablet NDED Quetiapine RELE Fumarate ASE aripiprazole 30 Aripiprazole TABL 30 mg ORAL completed [facility] MG Oral Tablet ET [facility] Aripiprazole Pramipexole Pramipexole TABL 0.5 mg ORAL completed [facility] dihydrochloride Dihydrochloride ET [place] 0.25 MG Oral Hospita [facility] Tablet [Mirapex] Pramipexole Dihydrochloride Multivitamin TABL 1 ORAL completed Wh ite ET {Each} [facility] Omeprazole 0.667 Omeprazole 40 mg ORAL completed [facility] MG/ML Oral Magnesium [facility] Omeprazole Magnesium 24 HR quetiapine Quetiapine TABL 1 ORAL completed [facility] 400 MG Extended Fumarate ET, {Capsu [place] Release Oral EXTE le} Hospita [facility] Tablet NDED Quetiapine RELE Fumarate ASE Folic Acid 0.8 Folic Acid TABL 0.8 mg ORAL completed [facility] MG Oral Tablet ET [facility] 12 HR Carbamazepine TABL 300 mg ORAL completed [facility] Carbamazepine ET, [place] 100 MG Extended EXTE Hosp [facility] Release Oral NDED Tablet RELE ASE Multivitamin TABL 1 ORAL completed Wh ite ET {Each} [facility] sevelamer Sevelamer TABL 800 mg ORAL completed [facility] carbonate 800 MG Carbonate ET [place] [facility] [[facility]] Sevelamer Carbonate sevelamer Sevelamer TABL 800 mg ORAL completed [facility] carbonate 800 MG Carbonate ET [place] Oral Tablet [facility] [[facility]] Sevelamer Carbonate Carbamazepine Carbamazepine TABL 300 completed [facility] 200 MG Oral ET [place] [facility] Meclizine Meclizine Hcl TABL 25 mg ORAL completed [facility] Hydrochloride 25 ET [place] MG Oral Tablet [facility] Meclizine Hcl Carbamazepine Carbamazepine TABL 300 completed [facility] 200 MG Oral ET [place] [facility] quetiapine 100 Quetiapine TABL 100 mg ORAL completed [facility] MG Oral Tablet Fumarate ET [facility] [Seroquel] [facility] Quetiapine Fumarate Amylases [id number] Amylase/Lipase/P CAPS 1 ORAL completed [facility] UNT / rotease ULE, {Capsu [place] Endopeptidases DANTE le} [facility] 98631 UNT / YED Lipase 37976 UNT RELE Delayed Release ASE Oral Capsule [Creon] Amylase/Lipase/P rotease Warfarin Sodium Warfarin Sodium TABL 2 mg ORAL completed [facility] 2 MG Oral Tablet ET [place] [facility] [Coumadin] [facility] quetiapine 100 Quetiapine TABL 100 mg ORAL completed [facility] MG Oral Tablet Fumarate ET [place] [facility] [Seroquel] [facility] Quetiapine Fumarate Quetiapine UNSP 200 mg ORAL completed Wh ite ECIF [place] IED [facility] Vitamin B 12 1 Cyanocobalamin TABL 1000 ORAL completed [facility] MG Oral Tablet ET [facility] [place] Cyanocobalamin [facility] 24 HR Propranolol Hcl CONT 160 mg ORAL completed [facility] Propranolol ROLL [place] Hydrochloride 80 ED Hos [facility] MG Extended RELE Release Oral ASE Capsule CAPS Propranolol Hcl ULE Pramipexole Pramipexole TABL 0.5 mg ORAL completed [facility] dihydrochloride Dihydrochloride ET [place] 0.25 MG Oral Hospita [facility] Tablet [Mirapex] Pramipexole Dihydrochloride Aspirin 325 MG Aspirin TABL 325 mg ORAL completed [facility] Oral Tablet ET [place] [[place] Aspirin] [facility] 24 HR Propranolol Hcl CONT 160 mg ORAL completed [facility] Propranolol ROLL [place] Hydrochloride 80 ED Hos [facility] MG Extended RELE Release Oral ASE Capsule CAPS Propranolol Hcl ULE Omeprazole TABL 40 mg ORAL completed [facility]i [facility] quetiapine 200 Quetiapine TABL 200 completed [facility] MG Oral Tablet Fumarate ET [facility] Fumarate Hydroxyzine Hydroxyzine CAPS 50 mg ORAL completed [facility] Pamoate 50 MG Pamoate ULE [place] [facility] Oral Capsule [facility]ospita [facility] [Vistaril] Furosemide 80 MG Furosemide TABL 80 mg ORAL completed [facility] Oral Tablet ET [place] [Lasix] [facility] Hydromorphone Hydromorphone TABL 4 mg ORAL completed [facility] Hydrochloride 4 Hcl ET [facility] MG Oral Tablet [facility] Hydromorphone Hcl Multivitamin TABL 1 ORAL completed Wh ite ET {Each} [facility] Calcium Calcium TABL 1 ORAL completed Whit e Carbonate 1250 Carbonate ET {Capsu [place] MG Oral Tablet le} [facility] Prochlorperazine Prochlorperazine TABL 10 mg ORAL completed [facility] 5 MG Oral Tablet Maleate ET [place] Prochlorperazine [facility] Maleate Sucralfate 1000 Sucralfate TABL 1 ORAL completed [facility] MG Oral Tablet ET {Capsu [place] ins le} Hospital Pramipexole Pramipexole TABL 0.5 mg ORAL completed [facility] dihydrochloride Dihydrochloride ET [place] 0.25 MG Oral Hospita [facility] Tablet [Mirapex] Pramipexole Dihydrochloride Levothyroxine Levothyroxine TABL 150 ug ORAL completed [facility] Sodium 0.15 MG Sodium ET [place] [facility]t [facility] Quetiapine UNSP 200 mg ORAL completed Wh ite ECIF [facility] Prochlorperazine Prochlorperazine TABL 10 mg ORAL completed [facility] 5 MG Oral Tablet Maleate ET [place] Prochlorperazine [facility] Maleate Aspirin 325 MG Aspirin TABL 325 mg ORAL completed [facility] Oral Tablet ET [place] [[place] Aspirin] [facility]osp [facility] Furosemide 80 MG Furosemide TABL 80 mg ORAL completed [facility] Oral Tablet ET [place] [Lasix] [facility] Pramipexole Pramipexole TABL 0.5 mg ORAL completed [facility] dihydrochloride Dihydrochloride ET [place] 0.25 MG Oral Hospita [facility] Tablet [Mirapex] Pramipexole Dihydrochloride Hydroxyzine Hydroxyzine CAPS 50 mg ORAL completed [facility] Pamoate 50 MG Pamoate ULE [place] Oral Capsule [facility]ospita [facility] Warfarin Sodium Warfarin Sodium TABL 4 mg ORAL completed [facility] 4 MG Oral Tablet ET [facility] 24 HR Propranolol Hcl CONT 160 mg ORAL completed [facility] Propranolol ROLL [place] Hydrochloride 80 ED Hos [facility] MG Extended RELE Release Oral ASE Capsule CAPS Propranolol Hcl ULE Pramipexole Pramipexole TABL 0.5 mg ORAL completed [facility] dihydrochloride Di-Hcl ET Pl ains 0.5 MG Oral Hospital Tablet Pramipexole Di-Hcl Warfarin Sodium Warfarin Sodium TABL 4 mg ORAL completed [facility] 4 MG Oral Tablet ET [facility] Folic Acid 0.8 Folic Acid TABL 0.8 mg ORAL completed White MG Oral Tablet ET [facility] Hydroxyzine Hydroxyzine CAPS 50 mg ORAL completed [facility] Pamoate 50 MG Pamoate ULE [place] Oral Capsule Hospita [facility] [Vistaril] Omeprazole 40 MG Omeprazole CAPS 40 mg ORAL completed [facility] Delayed Release ULE, [facility] [facility] Oral Capsule DANTE Hospita l YED RELE ASE apixaban 2.5 MG Apixaban TABL 2.5 mg ORAL completed [facility] Oral Tablet ET [place] [facility] Apixaban apixaban 2.5 MG Apixaban TABL 2.5 mg ORAL completed [facility] Oral Tablet ET [place] [[facility]] [facility] Apixaban Aspirin 325 MG Aspirin TABL 325 mg ORAL completed [facility] Oral Tablet ET [place] [[place] Aspirin] Hosp [facility] febuxostat 40 MG Febuxostat TABL 40 mg ORAL completed [facility] Oral Tablet ET [place] [oric] [facility] Febuxostat 24 HR quetiapine Quetiapine TABL 200 mg ORAL completed [facility] 400 MG Extended Fumarate ET, [place] Release Oral EXTE Hospita [facility] Tablet NDED Quetiapine RELE Fumarate ASE Sevelamer Sevelamer Hcl TABL 800 mg ORAL completed [facility] hydrochloride ET [place] 800 MG Oral Hospital Tablet [RenaGel] Sevelamer Hcl Pramipexole Pramipexole TABL 0.5 mg ORAL completed [facility] dihydrochloride Dihydrochloride ET [place] 0.25 MG Oral Hospita [facility] Tablet [Mirapex] Pramipexole Dihydrochloride Folic Acid 0.8 Folic Acid TABL 0.8 mg ORAL completed White MG Oral Tablet ET [facility] Hydromorphone Hydromorphone TABL 4 mg ORAL completed [facility] Hydrochloride 4 Hcl ET [facility] MG Oral Tablet [facility] Hydromorphone Hcl Quetiapine UNSP 200 mg ORAL completed Wh ite ECIF [place] IED [facility] Hydroxyzine Hydroxyzine CAPS 50 mg ORAL completed White Pamoate 50 MG Pamoate ULE [place] Oral Capsule Hospita [facility] [Vistaril] febuxostat 40 MG Febuxostat TABL 40 mg ORAL completed [facility] Oral Tablet ET [place] [Uloric] Hospital Febuxostat Pramipexole Pramipexole TABL 0.5 mg ORAL completed [facility] dihydrochloride Dihydrochloride ET [place] 0.25 MG Oral Hospita [facility] Tablet [Mirapex] Pramipexole Dihydrochloride Hyoscyamine Hyoscyamine TABL ORAL completed [facility] Sulfate 0.125 MG Sulfate ET [place] [facility] Oral Tablet [Symax] Amylases [id number] Amylase/Lipase/P CAPS 2 ORAL completed [facility] UNT / rotease ULE, {Capsu [place] Endopeptidases DANTE le} [facility] 38130 UNT / YED Lipase 08126 UNT RELE Delayed Release ASE Oral Capsule [Creon] Amylase/Lipase/P rotease Ranitidine 150 Ranitidine Hcl TABL 300 mg ORAL completed [facility] MG Oral Tablet ET [place] Ranitidine Hcl [facility] 24 HR quetiapine Quetiapine TABL 1 ORAL completed [facility] 400 MG Extended Fumarate ET, {Capsu [place] Release Oral EXTE le} Hospita l Tablet NDED Quetiapine RELE Fumarate ASE Amylases [id number] Amylase/Lipase/P CAPS 2 ORAL completed [facility] UNT / rotease ULE, {Capsu [place] Endopeptidases DANTE le} [facility] 04518 UNT / YED Lipase 05767 UNT RELE Delayed Release ASE Oral Capsule [Creon] Amylase/Lipase/P rotease Furosemide 80 MG Furosemide TABL 80 mg ORAL completed [facility] Oral Tablet ET [place] [Lasix] [facility] Hyoscyamine Hyoscyamine TABL 1 ORAL completed [facility] Sulfate 0.125 MG Sulfate ET {Capsu [place] Oral Tablet le} Hospital [Levsin] 24 HR quetiapine Quetiapine TABL 200 mg ORAL completed [facility] 400 MG Extended Fumarate ET, [place] Release Oral EXTE [facility]ospita [facility] Tablet NDED Quetiapine RELE Fumarate ASE apixaban 2.5 MG Apixaban TABL 2.5 mg ORAL completed [facility] Oral Tablet ET [place] [Eliquis] [facility] Apixaban Ranitidine Hcl TABL 300 mg ORAL completed [place] ET [facility] Folic Acid 0.8 Folic Acid TABL 0.8 mg ORAL completed [facility] MG Oral Tablet ET [facility] 12 HR Carbamazepine SUST 300 mg ORAL completed [facility] Carbamazepine TAMEKA [place] 200 MG Extended D Hosp [facility] Release Oral RELE Tablet ASE [Tegretol] TABL ET 24 HR quetiapine Quetiapine TABL 200 mg ORAL completed [facility] 400 MG Extended Fumarate ET, [place] Release Oral EXTE [facility]ospita [facility] Tablet NDED Quetiapine RELE Fumarate ASE 24 HR Propranolol Hcl CAPS 160 mg ORAL completed [facility] Propranolol ULE, [place] Hydrochloride EXTE Hospit al 160 MG Extended NDED Release Oral RELE Capsule ASE Propranolol Hcl Ranitidine Hcl TABL 300 mg ORAL completed [place] ET [facility] Warfarin Sodium Warfarin Sodium TABL 2 mg ORAL completed [facility] 2 MG Oral Tablet ET [place] [facility] [Coumadin] [facility] Vitamin B 12 1 Cyanocobalamin TABL 1000 ORAL completed [facility] MG Oral Tablet ET [facility] [place] Cyanocobalamin [facility] 24 HR Propranolol Hcl CAPS completed [facility] Propranolol ULE, [place] Hydrochloride EXTE Hospit [facility] 120 MG Extended NDED Release Oral RELE Capsule ASE Propranolol Hcl Vitamin B 12 1 Cyanocobalamin TABL 1000 ORAL completed [facility] MG Oral Tablet ET ug [place] Cyanocobalamin [facility] Omeprazole TABL 40 mg ORAL [facility] sevelamer Sevelamer TABL 800 mg ORAL completed [facility] carbonate 800 MG Carbonate ET [place] [facility] [Renvela] Sevelamer Carbonate Warfarin Sodium Warfarin Sodium TABL 2 mg ORAL completed [facility] 2 MG Oral Tablet ET [facility] ins [Coumadin] [facility] Pramipexole Pramipexole TABL 0.5 mg ORAL completed [facility] dihydrochloride Dihydrochloride ET [place] 0.25 MG Oral Hospita [facility] Tablet [Mirapex] Pramipexole Dihydrochloride Furosemide 80 MG Furosemide TABL 80 mg ORAL completed [facility] Oral Tablet ET [place] [Lasix] [facility] 24 HR Propranolol Hcl CAPS 160 mg ORAL completed [facility] Propranolol ULE, [place] Hydrochloride EXTE Hospit al 160 MG Extended NDED Release Oral RELE Capsule ASE Propranolol Hcl 24 HR quetiapine Quetiapine TABL 400 mg ORAL completed [facility] 400 MG Extended Fumarate ET, [place] Release Oral EXTE Hospita [facility] Tablet NDED Quetiapine RELE Fumarate ASE Hydromorphone Hydromorphone TABL 4 mg ORAL completed [facility] Hydrochloride 4 Hcl ET [facility] MG Oral Tablet [facility] Hydromorphone Hcl Hydroxyzine Hydroxyzine CAPS 50 mg ORAL completed [facility] Pamoate 50 MG Pamoate ULE [place] [facility] Oral Capsule [facility]ospita [facility] Quetiapine 200 mg ORAL completed Wh ite [facility] Aspirin 325 MG Aspirin TABL 325 mg ORAL completed [facility] Oral Tablet ET [place] [[place] Aspirin] Hosp [facility] 24 HR Propranolol Hcl CONT 160 mg ORAL completed [facility] Propranolol ROLL [place] Hydrochloride 80 ED Hos [facility]ital MG Extended RELE Release Oral ASE Capsule CAPS Propranolol Hcl ULE Pramipexole Pramipexole TABL 0.5 mg ORAL completed [facility] dihydrochloride Dihydrochloride ET [place] 0.25 MG Oral Hospita [facility] Tablet [Mirapex] Pramipexole Dihydrochloride Folic Acid 0.8 Folic Acid TABL 0.8 mg ORAL completed White MG Oral Tablet ET [facility] 24 HR Propranolol Hcl CAPS 160 mg ORAL completed [facility] Propranolol ULE, [place] Hydrochloride EXTE Hospit al 160 MG Extended NDED Release Oral RELE Capsule ASE Propranolol Hcl Pramipexole Pramipexole TABL 0.5 mg ORAL completed [facility] dihydrochloride Dihydrochloride ET [place] 0.25 MG Oral Hospita [facility] Tablet [Mirapex] Pramipexole Dihydrochloride Prochlorperazine Prochlorperazine TABL 10 mg ORAL completed [facility] 5 MG Oral Tablet Maleate ET [place] Prochlorperazine Hos [facility]ital Maleate Hydromorphone Hydromorphone TABL 4 mg ORAL completed [facility] Hydrochloride 4 Hcl ET [facility] [facility] MG Oral Tablet [facility] Hydromorphone Hcl sevelamer Sevelamer TABL 800 mg ORAL completed [facility] carbonate 800 MG Carbonate ET [place] [facility] [[facility]] Sevelamer Carbonate 24 HR Propranolol Hcl CONT 160 mg ORAL completed [facility] Propranolol ROLL [place] Hydrochloride 80 ED Hos [facility] MG Extended RELE Release Oral ASE Capsule CAPS Propranolol Hcl ULE sevelamer Sevelamer TABL 800 mg ORAL completed [place] carbonate 800 MG Carbonate ET [place] [facility]] Sevelamer Carbonate Meclizine Meclizine Hcl TABL 25 mg ORAL completed [facility] Hydrochloride 25 ET [place] MG Oral Tablet [facility] Meclizine Hcl Hydroxyzine Hydroxyzine CAPS 50 mg ORAL completed [facility] Pamoate 50 MG Pamoate ULE [place] [facility] Oral Capsule [facility]ospita [facility] Omeprazole TABL 40 mg ORAL completed i te Magnesium ET, [facility] YED RELE ASE Hyoscyamine Hyoscyamine TABL 1 ORAL completed [facility] Sulfate 0.125 MG Sulfate ET {Capsu [place] Oral Tablet le} Hospital [Levsin] febuxostat 40 MG Febuxostat TABL 40 mg ORAL completed [facility] Oral Tablet ET [place] [Uloric] [facility] Febuxostat Warfarin Sodium Warfarin Sodium TABL [...] completed [facility] Sulfate 0.125 MG Sulfate ET [place] [facility] Oral Tablet [Symax] Quetiapine UNSP 200 mg ORAL completed [facility] 24 HR Propranolol Hcl CONT 160 mg ORAL completed [facility] Propranolol ROLL [place] Hydrochloride 80 ED Hos [facility] MG Extended RELE Release Oral ASE Capsule CAPS Propranolol Hcl ULE quetiapine 100 Quetiapine TABL 100 mg ORAL completed [facility] MG Oral Tablet Fumarate ET [facility] [Seroquel] [facility] Quetiapine Fumarate 24 HR Propranolol Hcl CAPS 160 mg ORAL completed [facility] Propranolol ULE, [place] Hydrochloride EXTE Hospit al 160 MG Extended NDED Release Oral RELE Capsule ASE Propranolol Hcl Folic Acid 0.8 Folic Acid TABL 0.8 mg ORAL completed White MG Oral Tablet ET [place] [facility] Ranitidine Hcl TABL 300 mg ORAL completed [place] ET [facility] Hyoscyamine Hyoscyamine TABL 1 ORAL completed [facility] Sulfate 0.125 MG Sulfate ET {Capsu [place] Oral Tablet le} [facility] [Levsin] Hydroxyzine Hydroxyzine CAPS 50 mg ORAL completed [facility] Pamoate 50 MG Pamoate ULE [place] [facility] Oral Capsule [facility]ospita [facility] Pravastatin Pravastatin TABL 40 mg ORAL completed [facility] Sodium 20 MG Sodium ET [facility] Quetiapine UNSP 200 mg ORAL completed [facility] Warfarin Sodium Warfarin Sodium TABL 4 mg ORAL completed [facility] 4 MG Oral Tablet ET [facility] apixaban 2.5 MG Apixaban TABL 2.5 mg ORAL completed [facility] Oral Tablet ET [place] [Eliquis] [facility] Apixaban aripiprazole Aripiprazole 30 mg ORAL completed [facility] Aripiprazole [facility] Quetiapine 200 mg ORAL completed Wh ite Fumarate [facility] Meclizine Meclizine Hcl TABL 25 mg ORAL completed [facility] Hydrochloride 25 ET [place] MG Oral Tablet [facility] Meclizine Hcl quetiapine 100 Quetiapine TABL 100 mg ORAL completed [facility] MG Oral Tablet Fumarate ET [facility] [Seroquel] [facility] Quetiapine Fumarate 12 HR Carbamazepine SUST 300 mg ORAL completed [facility] Carbamazepine TAMEKA [place] 200 MG Extended D Hosp ital Release Oral RELE Tablet ASE [Tegretol] TABL ET Pramipexole Pramipexole TABL 0.5 mg ORAL completed [facility] dihydrochloride Dihydrochloride ET [place] 0.25 MG Oral Hospita [facility] Tablet [Mirapex] Pramipexole Dihydrochloride Multivitamin TABL 1 ORAL completed Wh ite ET {Each} [facility] quetiapine 100 Quetiapine TABL 100 mg ORAL completed [facility] MG Oral Tablet Fumarate ET [facility] Fumarate Quetiapine UNSP 200 mg ORAL completed ite ECIF [facility] Aspirin 325 MG Aspirin TABL 325 mg ORAL completed [facility] Oral Tablet ET [place] [[place] Aspirin] Hosp ital sevelamer Sevelamer TABL 800 mg ORAL completed [facility] carbonate 800 MG Carbonate ET [place] Oral Tablet [facility] [Renvela] Sevelamer Carbonate Folic Acid 0.8 Folic Acid TABL 0.8 mg ORAL completed [facility] MG Oral Tablet ET [facility] montelukast 10 Montelukast TABL 10 mg ORAL completed [facility] MG Oral Tablet Sodium ET [place] [facility] [Singulair] [facility] Montelukast Sodium febuxostat 40 MG Febuxostat TABL 40 mg ORAL completed [facility] Oral Tablet ET [place] [Uloric] [facility] Febuxostat Hydromorphone Hydromorphone TABL 4 mg ORAL completed [facility] Hydrochloride 4 Hcl ET [facility] MG Oral Tablet [facility] Hydromorphone Hcl febuxostat 40 MG Febuxostat TABL 40 mg ORAL completed [facility] Oral Tablet ET [place] [Uloric] [facility] Febuxostat 24 HR Propranolol Hcl CONT 160 mg ORAL completed [facility] Propranolol ROLL [place] Hydrochloride 80 ED [facility] MG Extended RELE Release Oral ASE Capsule CAPS Propranolol Hcl ULE Furosemide 80 MG Furosemide TABL 80 mg ORAL completed [facility] Oral Tablet ET [place] [Lasix] [facility] Multivitamin TABL 1 ORAL completed Wh ite ET {Each} [facility] Hydroxyzine Hydroxyzine CAPS 50 mg ORAL completed [facility] Pamoate 50 MG Pamoate ULE [place] [facility] Oral Capsule Hospita [facility] Meclizine Meclizine Hcl TABL 25 mg ORAL completed [facility] Hydrochloride 25 ET [place] MG Oral Tablet [facility] Meclizine Hcl Pramipexole Pramipexole TABL 0.5 mg ORAL completed [facility] dihydrochloride Dihydrochloride ET [place] 0.25 MG Oral Hospita l Tablet [Mirapex] [...] 160 mg ORAL completed [facility] Propranolol ROLL [place] Hydrochloride 80 ED [facility]ital MG Extended RELE Release Oral ASE Capsule CAPS Propranolol Hcl ULE Hydromorphone Hydromorphone TABL 4 mg ORAL completed [facility] Hydrochloride 4 Hcl ET [facility] MG Oral Tablet [facility] Hydromorphone Hcl 24 HR quetiapine Quetiapine TABL 400 mg ORAL completed [facility] 400 MG Extended Fumarate ET, [place] Release Oral EXTE [facility]ospita [facility] Tablet NDED Quetiapine RELE Fumarate ASE Hyoscyamine Hyoscyamine TABL ORAL completed [facility] Sulfate 0.125 MG Sulfate ET [place] Disintegrating [facility] Oral Tablet [Symax] quetiapine 100 Quetiapine TABL 2 ORAL completed [facility] MG Oral Tablet Fumarate ET {Capsu [place] [Seroquel] le} Hospital Quetiapine Fumarate Sevelamer Sevelamer Hcl TABL 800 mg ORAL completed [facility] hydrochloride ET [place] 800 MG Oral Hospital Tablet [RenaGel] Se[facility]amer Hcl Warfarin Sodium Warfarin Sodium TABL 4 mg ORAL completed [facility] 4 MG Oral Tablet ET [facility] febuxostat 40 MG Febuxostat TABL 40 mg ORAL completed [facility] Oral Tablet ET [place] [Uloric] [facility] Febuxostat apixaban 2.5 MG Apixaban TABL 2.5 mg ORAL completed [facility] Oral Tablet ET [place] [Eliquis] [facility] Apixaban Pramipexole Pramipexole TABL 0.5 mg ORAL completed [facility] dihydrochloride Dihydrochloride ET [place] 0.25 MG Oral Hospita l Tablet [Mirapex] Pramipexole Dihydrochloride febuxostat 40 MG Febuxostat TABL 40 mg ORAL completed [facility] Oral Tablet ET [place] [Uloric] [facility] Febuxostat Warfarin Sodium Warfarin Sodium TABL 4 mg ORAL completed [facility] 4 MG Oral Tablet ET [facility] Pramipexole Pramipexole TABL 0.5 mg ORAL completed [facility] dihydrochloride Dihydrochloride ET [place] 0.25 MG Oral Hospita [facility] Tablet [Mirapex] Pramipexole Dihydrochloride Hydroxyzine Hydroxyzine CAPS 1 ORAL completed [facility] Pamoate 50 MG Pamoate ULE {Capsu [facility] Oral Capsule le} Hospita l [Vistaril] Amylases [id number] Amylase/Lipase/P CAPS 349265 ORAL completed [facility] UNT / rotease ULE, [place] Endopeptidases DANTE [facility] 27553 UNT / YED Lipase 75719 UNT RELE Delayed Release ASE Oral Capsule [Creon] Amylase/Lipase/P rotease 24 HR Propranolol Hcl CAPS 160 mg ORAL completed [facility] Propranolol ULE, [place] Hydrochloride EXTE Hospit [facility] 160 MG Extended NDED Release Oral RELE Capsule ASE Propranolol Hcl Hydroxyzine Hydroxyzine CAPS 50 mg ORAL completed [facility] Pamoate 50 MG Pamoate ULE [place] [facility] Oral Capsule [facility]ospita [facility] [Vistaril] Quetiapine UNSP 200 mg ORAL completed Wh ite ECIF [place] [facility] Hydroxyzine Hydroxyzine CAPS 50 mg ORAL completed [facility] Pamoate 50 MG Pamoate ULE [place] [facility] Oral Capsule [facility]ospita [facility] Hydromorphone Hydromorphone TABL 4 mg ORAL completed [facility] Hydrochloride 4 Hcl ET [facility] MG Oral Tablet [facility] Hydromorphone Hcl Furosemide 80 MG Furosemide TABL 80 mg ORAL completed [facility] Oral Tablet ET [place] [Lasix] [facility] Prochlorperazine Prochlorperazine TABL 10 mg ORAL completed [facility] 5 MG Oral Tablet Maleate ET [place] Prochlorperazine [facility] Maleate 24 HR quetiapine Quetiapine TABL 200 mg ORAL completed [facility] 400 MG Extended Fumarate ET, [place] Release Oral EXTE [facility]ospita [facility] Tablet NDED Quetiapine RELE Fumarate ASE quetiapine 200 Quetiapine TABL 200 mg ORAL completed [facility] MG Oral Tablet Fumarate [facility] Fumarate 24 HR Propranolol Hcl CONT 160 mg ORAL completed [facility] Propranolol ROLL [place] Hydrochloride 80 ED Hos pital MG Extended RELE Release Oral ASE Capsule CAPS Propranolol Hcl ULE Ranitidine Hcl TABL 300 mg ORAL completed [facility] ET [facility] Sevelamer Sevelamer Hcl TABL 800 mg ORAL completed [facility] hydrochloride ET [place] 800 MG Oral Hospital Tablet [RenaGel] [facility] Hcl Hydromorphone Hydromorphone TABL 4 mg ORAL completed [facility] Hydrochloride 4 Hcl ET [facility] MG Oral Tablet [facility] Hydromorphone Hcl 24 HR Propranolol Hcl CONT 160 mg ORAL completed [facility] Propranolol ROLL [place] Hydrochloride 80 ED Hos pital MG Extended RELE Release Oral ASE Capsule CAPS Propranolol Hcl ULE Amylases [id number] Amylase/Lipase/P CAPS 1 ORAL completed [facility] UNT / rotease ULE, {Capsu [place] Endopeptidases DANTE le} [facility] 34782 UNT / YED Lipase 10992 UNT RELE Delayed Release ASE Oral Capsule [Creon] Amylase/Lipase/P rotease Hydromorphone Hydromorphone TABL 4 mg ORAL completed [facility] Hydrochloride 4 Hcl ET [facility] MG Oral Tablet [facility] Hydromorphone Hcl aripiprazole 30 Aripiprazole TABL 30 mg ORAL completed [facility] MG Oral Tablet ET [facility] Aripiprazole quetiapine 100 Quetiapine TABL 100 mg ORAL completed [facility] MG Oral Tablet Fumarate [facility] Fumarate aripiprazole 30 Aripiprazole TABL 30 mg ORAL completed [facility] MG Oral Tablet ET [facility] [[facility]] [facility] Aripiprazole Prochlorperazine Prochlorperazine TABL 10 mg ORAL completed [facility] 5 MG Oral Tablet Maleate ET [place] Prochlorperazine [facility] Maleate Furosemide 80 MG Furosemide TABL 80 mg ORAL completed [facility] Oral Tablet ET [place] [Lasix] [facility] Amlodipine 10 MG Amlodipine TABL 10 mg ORAL completed [facility] Oral Tablet Besylate ET [facility]ine [facility] Besylate Cyanocobalamin TABL 1 ORAL completed [facility] (Vitamin B-12) ET {Capsu [facility] [facility] le} Hospital montelukast 10 Montelukast TABL 10 mg ORAL completed [facility] MG Oral Tablet Sodium ET [facility] [facility] [Singulair] [facility] Montelukast Sodium Warfarin Sodium Warfarin Sodium TABL 4 mg ORAL completed [facility] 4 MG Oral Tablet ET [place] [facility] apixaban 2.5 MG Apixaban TABL 2.5 mg ORAL completed [facility] Oral Tablet ET [place] [Eliquis] [facility] Apixaban Calcium Calcium TABL 1 ORAL completed Whit e Carbonate 1250 Carbonate ET {Capsu [place] MG Oral Tablet le} [facility] Sevelamer Sevelamer Hcl TABL 800 mg ORAL completed [facility] hydrochloride ET [place] 800 MG Oral Hospital Tablet [RenaGel] Sevelamer Hcl Warfarin Sodium Warfarin Sodium TABL 4 mg ORAL completed [facility] 4 MG Oral Tablet ET [facility] ins [facility] Pramipexole Pramipexole TABL 0.5 mg ORAL completed [facility] dihydrochloride Dihydrochloride ET [place] 0.25 MG Oral Hospita [facility] Tablet [Mirapex] Pramipexole Dihydrochloride Sevelamer Sevelamer Hcl TABL 800 mg ORAL completed [facility] hydrochloride ET [place] 800 MG Oral Hospital Tablet [RenaGel] Sevelamer Hcl Amylases 170935 Amylase/Lipase/P CAPS 304127 ORAL completed [facility] UNT / rotease ULE, [place] Endopeptidases DANTE [facility] 52699 UNT / YED Lipase 32591 UNT RELE Delayed Release ASE Oral Capsule [Creon] Amylase/Lipase/P rotease Warfarin Sodium Warfarin Sodium TABL 2 mg ORAL completed [facility] 2 MG Oral Tablet ET [place] [facility] [Coumadin] [facility] Warfarin Sodium Warfarin Sodium TABL 2 mg ORAL completed [facility] 2 MG Oral Tablet ET [facility] ins [Coumadin] [facility] Amylases 500715 Amylase/Lipase/P CAPS 272867 ORAL completed [facility] UNT / rotease ULE, [place] Endopeptidases DANTE [facility] 27048 UNT / YED Lipase 92667 UNT RELE Delayed Release ASE Oral Capsule [Creon] Amylase/Lipase/P rotease Hydromorphone Hydromorphone TABL 4 mg ORAL completed [facility] Hydrochloride 4 Hcl ET [facility] MG Oral Tablet [facility] Hydromorphone Hcl Pramipexole Pramipexole TABL 0.5 mg ORAL completed [facility] dihydrochloride Dihydrochloride ET [place] 0.25 MG Oral Hospita [facility] Tablet [Mirapex] Pramipexole Dihydrochloride Hydromorphone Hydromorphone TABL 4 mg ORAL completed [facility] Hydrochloride 4 Hcl ET [facility] MG Oral Tablet [facility] Hydromorphone Hcl Quetiapine UNSP 200 mg ORAL completed Wh ite ECIF [facility] Amylases [id number] Amylase/Lipase/P CAPS 478565 ORAL completed [facility] UNT / rotease E, [place] Endopeptidases DANTE [facility] 02229 UNT / YED Lipase 12096 UNT RELE Delayed Release ASE Oral Capsule [Creon] Amylase/Lipase/P rotease montelukast 10 Montelukast TABL 10 mg ORAL completed [facility] MG Oral Tablet Sodium ET [place] [facility] [Singulair] [facility] Montelukast Sodium Folic Acid 1 Mg completed [facility] Amylases 376368 Amylase/Lipase/P CAPS 759836 ORAL completed [facility] UNT / rotease [facility], [place] Endopeptidases DANTE [facility] 75582 UNT / YED Lipase 15882 UNT RELE Delayed Release ASE Oral Capsule [Creon] Amylase/Lipase/P rotease Warfarin Sodium Warfarin Sodium TABL 4 mg ORAL completed [facility] 4 MG Oral Tablet ET [facility] ins Hospital Lorazepam 1 MG Lorazepam TABL 1 mg ORAL completed [facility] Oral Tablet ET [facility] Omeprazole 40 MG Omeprazole CAPS 40 mg ORAL completed [facility] Delayed Release ULE, [facility] Oral Capsule DANTE [facility] l YED RELE ASE Pravastatin Pravastatin TABL 40 mg ORAL completed [facility] Sodium 20 MG Sodium ET [facility] Oral Tablet [facility] Meclizine Meclizine Hcl TABL 25 mg ORAL completed [facility] Hydrochloride 25 ET [place] [facility] MG Oral Tablet [facility] Meclizine Hcl apixaban 2.5 MG Apixaban TABL 2.5 mg ORAL completed [facility] Oral Tablet ET [place] [Eliquis] [facility] Apixaban Pramipexole Pramipexole TABL 0.5 mg ORAL completed [facility] dihydrochloride Dihydrochloride ET [place] 0.25 MG Oral Hospita [facility] Tablet [Mirapex] Pramipexole Dihydrochloride montelukast 10 Montelukast TABL 10 mg ORAL completed [facility] MG Oral Tablet Sodium ET [facility] [facility] [[facility]] [facility] Montelukast Sodium Folic Acid 0.8 Folic Acid TABL 0.8 mg ORAL completed [facility] MG Oral Tablet ET [facility] Prochlorperazine Prochlorperazine TABL 10 mg ORAL completed [facility] 5 MG Oral Tablet Maleate ET [place] Prochlorperazine [facility] Maleate 24 HR Propranolol Hcl CONT 160 mg ORAL completed [facility] Propranolol ROLL [place] Hydrochloride 80 ED Hos [facility] MG Extended RELE Release Oral ASE Capsule CAPS Propranolol Hcl ULE 24 HR Propranolol Hcl CAPS 160 mg ORAL completed [facility] Propranolol ULE, [place] Hydrochloride EXTE Hospit [facility] 160 MG Extended NDED Release Oral RELE Capsule ASE Propranolol Hcl montelukast 10 Montelukast TABL 10 mg ORAL completed [facility] MG Oral Tablet Sodium ET [facility] [facility] Montelukast Sodium Ranitidine Hcl TABL 300 mg ORAL completed [facility] ET [facility] 24 HR quetiapine Quetiapine TABL 400 mg ORAL completed [facility] 400 MG Extended Fumarate ET, [place] Release Oral EXTE [facility]ospita [facility] Tablet NDED [...] 160 mg ORAL completed [facility] Propranolol ROLL [place] Hydrochloride 80 ED Hos [facility]ital MG Extended RELE Release Oral ASE Capsule CAPS Propranolol Hcl ULE Beclomethasone 2 RESPIRAT completed [facility] Dipropionate ORY [place] ([facility]) Omeprazole 0.667 Omeprazole 40 mg ORAL completed [facility] MG/ML Oral Magnesium [facility] [Prilosec] Omeprazole Magnesium quetiapine 100 Quetiapine TABL 100 mg ORAL completed [facility] MG Oral Tablet Fumarate ET [facility] Fumarate apixaban 2.5 MG Apixaban TABL 2.5 mg ORAL completed [facility] Oral Tablet ET [place] [Eliquis] [facility] Apixaban 12 HR Carbamazepine SUST 300 mg ORAL completed [facility] Carbamazepine TAMEKA [place] 200 MG Extended D Hosp ital Release Oral RELE Tablet ASE [Tegretol] TABL ET 12 HR Carbamazepine SUST 300 mg ORAL completed [facility] Carbamazepine TAMEKA [place] 200 MG Extended D Hosp [facility] Release Oral RELE Tablet ASE [Tegretol] TABL ET febuxostat 40 MG Febuxostat TABL 1 ORAL completed [facility] Oral Tablet ET {[facility] Febuxostat } [facility] Multivitamin TABL 1 ORAL completed Wh ite ET {Each} [facility] Hydroxyzine Hydroxyzine CAPS 50 mg ORAL completed [facility] Pamoate 50 MG Pamoate ULE [place] [facility] Oral Capsule Hospita [facility] quetiapine 100 Quetiapine TABL 2 ORAL completed [facility] MG Oral Tablet Fumarate ET {[facility] [Seroquel] } [facility] Quetiapine Fumarate 24 HR quetiapine Quetiapine TABL 400 mg ORAL completed [facility] 400 MG Extended Fumarate ET, [place] Release Oral EXTE [facility]ospita [facility] Tablet NDED Quetiapine RELE Fumarate ASE Hydromorphone Hydromorphone TABL 4 mg ORAL completed [facility] Hydrochloride 4 Hcl ET [facility] MG Oral Tablet [facility] Hydromorphone Hcl Pravastatin Pravastatin TABL 40 mg ORAL completed [facility] Sodium 20 MG Sodium ET [facility] Oral Tablet [facility] Pramipexole Pramipexole TABL 0.5 mg ORAL completed [facility] dihydrochloride Dihydrochloride ET [place] 0.25 MG Oral Hospita [facility] Tablet [Mirapex] Pramipexole Dihydrochloride Pramipexole Pramipexole TABL 0.5 mg ORAL completed [facility] dihydrochloride Dihydrochloride ET [place] 0.25 MG Oral Hospita [facility] Tablet [Mirapex] Pramipexole Dihydrochloride Pravastatin Pravastatin TABL 40 mg ORAL completed [facility] Sodium 20 MG Sodium ET [facility] Oral Tablet [facility] Vitamin B 12 1 Cyanocobalamin TABL 1000 ORAL completed [facility] MG Oral Tablet ET ug [place] [facility] Cyanocobalamin [facility] Folic Acid 0.8 Folic Acid TABL 0.8 mg ORAL completed [facility] MG Oral Tablet ET [facility] Pramipexole Pramipexole TABL 0.5 mg ORAL completed [facility] dihydrochloride Dihydrochloride ET [place] 0.25 MG Oral Hospita [facility] Tablet [Mirapex] Pramipexole Dihydrochloride apixaban 2.5 MG Apixaban TABL 2.5 mg ORAL completed [facility] Oral Tablet ET [place] [facility] Apixaban Pravastatin Pravastatin TABL 40 mg ORAL completed [facility] Sodium 20 MG Sodium ET [facility] Oral Tablet [facility] Hydromorphone Hydromorphone TABL 4 mg ORAL completed [facility] Hydrochloride 4 Hcl ET [facility] MG Oral Tablet [facility] Hydromorphone Hcl Lorazepam 1 MG Lorazepam TABL 1 mg ORAL completed [facility] Oral Tablet ET [facility] 24 HR Propranolol Hcl CONT 160 mg ORAL completed [facility] Propranolol ROLL [place] Hydrochloride 80 ED Hos [facility] MG Extended RELE Release Oral ASE Capsule CAPS Propranolol Hcl ULE Warfarin Sodium Warfarin Sodium TABL 4 mg ORAL completed [facility] 4 MG Oral Tablet ET [facility] ins Hospital 24 HR quetiapine Quetiapine TABL 1 ORAL completed [facility] 400 MG Extended Fumarate ET, {Capsu [place] Release Oral EXTE le} Hospita l Tablet NDED Quetiapine RELE Fumarate ASE febuxostat 40 MG Febuxostat TABL 40 mg ORAL completed [facility] Oral Tablet ET [place] [Uloric] [facility] Febuxostat 12 HR Carbamazepine SUST 300 mg ORAL completed [facility] Carbamazepine TAMEKA [place] 200 MG Extended D Hosp [facility] Release Oral RELE Tablet ASE [Tegretol] TABL ET Hydroxyzine Hydroxyzine CAPS 1 ORAL completed [facility] Pamoate 50 MG Pamoate ULE {Capsu [facility] Oral Capsule le} Hospita l [Vistaril] Omeprazole TABL 40 mg ORAL completed Whi te Magnesium ET, [facility] YED RELE ASE Pramipexole Pramipexole TABL 0.5 mg ORAL completed [facility] dihydrochloride Dihydrochloride ET [place] 0.25 MG Oral Hospita l Tablet [Mirapex] Pramipexole Dihydrochloride apixaban 2.5 MG Apixaban TABL 2.5 mg ORAL completed [facility] Oral Tablet ET [place] [[facility]] [facility] Apixaban aripiprazole 30 Aripiprazole TABL 30 mg ORAL completed [facility] MG Oral Tablet ET [facility] [Abilif] [facility] Aripiprazole apixaban 2.5 MG Apixaban TABL 2.5 mg ORAL completed [facility] Oral Tablet ET [place] [[facility]] [facility] Apixaban 24 HR Propranolol Hcl CONT 160 mg ORAL completed [facility] Propranolol ROLL [place] Hydrochloride 80 ED Hos [facility]ital MG Extended RELE Release Oral ASE Capsule CAPS Propranolol Hcl ULE 24 HR quetiapine Quetiapine TABL 400 mg ORAL completed [facility] 400 MG Extended Fumarate ET, [place] Release Oral EXTE [facility]ospita [facility] Tablet NDED Quetiapine RELE Fumarate ASE 24 HR quetiapine Quetiapine TABL 200 mg ORAL completed [facility] 400 MG Extended Fumarate ET, [place] Release Oral EXTE Hospita [facility] Tablet NDED Quetiapine RELE Fumarate ASE 24 HR Propranolol Hcl CONT 160 mg ORAL completed [facility] Propranolol ROLL [place] Hydrochloride 80 ED Hos pital MG Extended RELE Release Oral ASE Capsule CAPS Propranolol Hcl ULE Hydroxyzine Hydroxyzine CAPS 50 mg ORAL completed [facility] Pamoate 50 MG Pamoate ULE [place] [facility] Oral Capsule Hospita [facility] Pramipexole Pramipexole TABL 0.5 mg ORAL completed [facility] dihydrochloride Dihydrochloride ET [place] 0.25 MG Oral Hospita [facility] Tablet [Mirapex] Pramipexole Dihydrochloride Prochlorperazine Prochlorperazine TABL 10 mg ORAL completed [facility] 5 MG Oral Tablet Maleate ET [place] Prochlorperazine [facility] Maleate Quetiapine UNSP 200 mg ORAL completed Wh ite ECIF [place] [facility] Amlodipine 10 MG Amlodipine TABL 10 mg ORAL completed [facility] Oral Tablet Besylate ET [facility]ine [facility] Besylate Pramipexole Pramipexole TABL 0.5 mg ORAL completed [facility] dihydrochloride Dihydrochloride ET [place] 0.25 MG Oral Hospita l Tablet [Mirapex] Pramipexole Dihydrochloride Ranitidine Hcl TABL 300 mg ORAL completed [facility] ET [facility] Omeprazole 0.667 Omeprazole 40 mg ORAL completed [facility] MG/ML Oral Magnesium Plai ns [facility] [Prilosec] Omeprazole Magnesium 24 HR Propranolol Hcl CAPS 160 mg ORAL completed [facility] Propranolol ULE, [place] Hydrochloride EXTE Hospit al 160 MG Extended NDED Release Oral RELE Capsule ASE Propranolol Hcl Hyoscyamine Hyoscyamine TABL 1 ORAL completed [facility] Sulfate 0.125 MG Sulfate ET {Capsu [place] Oral Tablet le} Hospital [Levsin] Quetiapine 200 mg ORAL completed Wh ite Fumarate [facility] Prochlorperazine Prochlorperazine TABL 10 mg ORAL completed [facility] 5 MG Oral Tablet Maleate ET [place] Prochlorperazine Hos [facility]ital Maleate Hydromorphone Hydromorphone TABL [...] 300 mg ORAL completed [facility] Carbamazepine TAMEKA [place] 200 MG Extended D Hosp [facility] Release Oral RELE Tablet ASE [Tegretol] TABL ET Warfarin Sodium Warfarin Sodium TABL 2 mg ORAL completed [facility] 2 MG Oral Tablet ET [place] [facility] [Coumadin] Hospital Quetiapine UNSP 200 mg ORAL [facility] Prochlorper[facility] Prochlorperazine TABL 10 mg ORAL completed [facility] 5 MG Oral Tablet Maleate ET [place] Prochlorperazine [facility] Maleate 12 HR Carbamazepine SUST 300 mg ORAL completed [facility] Carbamazepine TAMEKA [place] 200 MG Extended D Hosp ital Release Oral RELE Tablet ASE [Tegretol] TABL ET Levothyroxine Levothyroxine TABL 150 ug ORAL completed [facility] Sodium 0.15 MG Sodium ET [place] [facility] Oral Tablet [facility] 24 HR Propranolol Hcl CAPS 160 mg ORAL completed [facility] Propranolol ULE, [place] Hydrochloride EXTE Hospit al 160 MG Extended NDED Release Oral RELE Capsule ASE Propranolol Hcl Hydroxyzine Hydroxyzine CAPS 50 mg ORAL completed [facility] Pamoate 50 MG Pamoate ULE [place] [facility] Oral Capsule Hospita l Hyoscyamine Hyoscyamine TABL ORAL completed [facility] Sulfate 0.125 MG Sulfate ET [place] [facility] Oral Tablet [Symax] Omeprazole TABL 40 mg ORAL completed Whi te Magnesium ET, [facility] YED RELE ASE Amylases [id number] Amylase/Lipase/P CAPS 1 ORAL completed White UNT / rotease ULE, {Capsu [place] Endopeptidases DANTE le} [facility] 91943 UNT / YED Lipase 52021 UNT RELE Delayed Release ASE Oral Capsule [Creon] Amylase/Lipase/P rotease Hyoscyamine Hyoscyamine TABL 1 ORAL completed [facility] Sulfate 0.125 MG Sulfate ET {Capsu [place] Oral Tablet le} Hospital [Levsin] aripiprazole 30 Aripiprazole TABL 30 mg ORAL completed [facility] MG Oral Tablet ET [facility] [Abilify] Hospital Aripiprazole Amylases [id number] Amylase/Lipase/P CAPS 2 ORAL completed [facility] UNT / rotease ULE, {Capsu [place] Endopeptidases DANTE le} [facility] 87699 UNT / YED Lipase 03166 UNT RELE Delayed Release ASE Oral Capsule [Creon] Amylase/Lipase/P rotease febuxostat 40 MG Febuxostat TABL 40 mg ORAL completed [facility] Oral Tablet ET [place] [Uloric] [facility] Febuxostat Prochlorperazine Prochlorperazine TABL 10 mg ORAL completed [facility] 5 MG Oral Tablet Maleate ET [place] Prochlorperazine Hos [facility]ital Maleate quetiapine 200 Quetiapine TABL 200 mg ORAL completed [facility] MG Oral Tablet [facility]ate [facility] F[facility] Hyoscyamine Hyoscyamine TABL ORAL completed [facility] Sulfate 0.125 MG Sulfate ET [place] Dis[facility] Oral Tablet [Symax] 24 HR Propranolol Hcl CONT 160 mg ORAL completed [facility] Propranolol ROLL [place] Hydrochloride 80 ED Hos pital MG Extended RELE Release Oral ASE Capsule CAPS Propranolol Hcl ULE Hydromorphone Hydromorphone TABL 4 mg ORAL completed [facility] Hydrochloride 4 Hcl ET [facility] MG Oral Tablet [facility] Hydromorphone Hcl 24 HR Propranolol Hcl CONT 160 mg ORAL completed [facility] Propranolol ROLL [place] Hydrochloride 80 ED Hos pital MG Extended RELE Release Oral ASE Capsule CAPS Propranolol Hcl ULE Warfarin Sodium Warfarin Sodium TABL 4 mg ORAL completed White 4 MG Oral Tablet ET [facility] Hydromorphone Hydromorphone TABL 4 mg ORAL completed [facility] Hydrochloride 4 Hcl ET [facility] MG Oral Tablet [facility] Hydromorphone Hcl Warfarin Sodium Warfarin Sodium TABL 2 mg ORAL completed [facility] 2 MG Oral Tablet ET [facility] [Coumadin] [facility] Quetiapine UNSP 200 mg ORAL completed Wh ite ECIF [place] IED [facility] febuxostat 40 MG Febuxostat TABL 40 mg ORAL completed [facility] Oral Tablet ET [place] [Uloric] [facility] Febuxostat Omeprazole 40 MG Omeprazole CAPS 40 mg ORAL completed [facility] Delayed Release ULE, [facility] Oral Capsule DANTE [facility]ospita [facility] YED RELE ASE 24 HR quetiapine Quetiapine TABL 400 mg ORAL completed [facility] 400 MG Extended Fumarate ET, [place] Release Oral EXTE Hospita [facility] Tablet NDED Quetiapine RELE Fumarate ASE Calcium Calcium TABL 1 ORAL completed Whit e Carbonate 1250 Carbonate ET {Capsu [place] MG Oral Tablet le} [facility] Omeprazole 0.667 Omeprazole 40 mg ORAL completed [facility] MG/ML Oral Magnesium [facility] [[facility]] Omeprazole Magnesium Calcium Calcium TABL 1 ORAL completed Whit e Carbonate 1250 Carbonate ET {Capsu [place] MG Oral Tablet le} [facility] Lorazepam 1 MG Lorazepam TABL 1 mg ORAL completed White Oral Tablet ET [facility] Hydromorphone Hydromorphone TABL 4 mg ORAL completed [facility] Hydrochloride 4 Hcl ET [facility] MG Oral Tablet [facility] Hydromorphone Hcl Furosemide 80 MG Furosemide TABL 80 mg ORAL completed [facility] Oral Tablet ET [place] [[facility]] [facility] Warfarin Sodium Warfarin Sodium TABL 4 mg ORAL completed [facility] 4 MG Oral Tablet ET [facility] Furosemide 80 MG Furosemide TABL 80 mg ORAL completed [facility] Oral Tablet ET [place] [[facility]] [facility] quetiapine 100 Quetiapine TABL 100 mg ORAL completed [facility] MG Oral Tablet F[facility]ate ET [facility] Quetiapine Fumarate 12 HR Carbamazepine SUST 300 mg ORAL completed [facility] Carbamazepine TAMEKA [place] 200 MG Extended D Hosp ital Release Oral RELE Tablet ASE [Tegretol] TABL ET Prochlorperazine Prochlorperazine TABL 10 mg ORAL completed [facility] 5 MG Oral Tablet Maleate ET [place] Prochlorperazine Hos [facility]ital Maleate Hydromorphone Hydromorphone TABL 4 mg ORAL completed [facility] Hydrochloride 4 Hcl ET [facility] MG Oral Tablet [facility] Hydromorphone Hcl Omeprazole 40 MG Omeprazole CAPS 40 mg ORAL completed [facility] Delayed Release ULE, [facility] Oral Capsule DANTE Hospita [facility] YED RELE ASE sevelamer Sevelamer TABL 800 mg ORAL completed White carbonate 800 MG Carbonate ET [place] Oral Tablet [facility] Sevelamer Carbonate Omeprazole 0.667 Omeprazole 40 mg ORAL completed [facility] MG/ML Oral Magnesium [facility] [[facility]] Omeprazole Magnesium Omeprazole TABL 40 mg ORAL completed Whi te Magnesium ET, [place] D[facility] YED RELE ASE Pramipexole Pramipexole TABL 0.5 mg ORAL completed [facility] dihydrochloride Di-Hcl ET Pl ains 0.5 MG Oral Hospital Tablet Pramipexole Di-Hcl Amylases [id number] Amylase/Lipase/P CAPS 2 ORAL completed [facility] UNT / rotease ULE, {Capsu [place] Endopeptidases DANTE le} Hospi heaven 01762 UNT / YED Lipase 37793 UNT RELE Delayed Release ASE Oral Capsule [Creon] Amylase/Lipase/P rotease Colchicine 0.6 Colchicine TABL ORAL completed White MG Oral Tablet ET [facility] [Colcrys] [facility] Quetiapine UNSP 200 mg ORAL completed ite [facility] Quetiapine UNSP [address] [facility] Folic Acid 0.8 Folic Acid TABL 0.8 mg ORAL completed [facility] MG Oral Tablet ET [facility] Pramipexole Pramipexole TABL 0.5 mg ORAL completed White dihydrochloride Di-Hcl ET Pl ains 0.5 MG [facility] Tablet Pramipexole Di-Hcl Amylases 750840 Amylase/Lipase/P CAPS 2 ORAL completed White UNT / rotease ULE, {Capsu [place] Endopeptidases DANTE le} [facility] 99595 UNT / YED Lipase 75982 UNT RELE Delayed Release ASE Oral Capsule [...] White 5 MG Oral Tablet Maleate ET [place] Prochlorperazine [facility]ital Maleate Pramipexole Pramipexole TABL 0.5 mg ORAL completed [facility] dihydrochloride Di-Hcl ET Pl [facility] 0.5 MG [facility] Tablet Pramipexole Di-Hcl Warfarin Sodium Warfarin Sodium TABL 2 mg ORAL completed [facility] 2 MG Oral Tablet ET [facility]oumadin[facility] Quetiapine completed Whit e Fumarate [facility] Lorazepam 1 MG Lorazepam TABL 1 mg ORAL completed White Oral Tablet ET [facility] Omeprazole TABL 40 mg ORAL completed i te Magnesium ET, [facility] YED RELE ASE Pramipexole Pramipexole TABL 0.5 mg ORAL completed [facility] dihydrochloride Dihydrochloride ET [place] 0.25 MG Oral Hospita l Tablet [Mirapex] Pramipexole Dihydrochloride Quetiapine completed Whit e [facility] 24 HR Propranolol Hcl CONT 160 mg ORAL completed [facility] Propranolol ROLL [place] Hydrochloride 80 ED Hos pital MG Extended RELE Release Oral ASE Capsule CAPS Propranolol Hcl ULE 24 HR Propranolol Hcl CONT 160 mg ORAL completed [facility] Propranolol ROLL [place] Hydrochloride 80 ED Hos pital MG Extended RELE Release Oral ASE Capsule CAPS Propranolol Hcl ULE 24 HR Propranolol Hcl CONT 160 mg ORAL completed [facility] Propranolol ROLL [place] Hydrochloride 80 ED Hos pital MG Extended RELE Release Oral ASE Capsule CAPS Propranolol Hcl ULE quetiapine 100 Quetiapine TABL 100 mg ORAL completed White MG Oral Tablet Fumarate ET [facility] Quetiapine Fumarate Folic Acid 0.8 Folic Acid TABL 0.8 mg ORAL completed White MG Oral Tablet ET [facility] Pramipexole Pramipexole TABL 0.5 mg ORAL completed [facility] dihydrochloride Dihydrochloride ET [place] 0.25 MG Oral Hospita l Tablet [Mirapex] Pramipexole Dihydrochloride Omeprazole 0.667 Omeprazole 40 mg ORAL completed [facility] MG/ML Oral Magnesium [facility] [Prilose] Omeprazole Magnesium Hydromorphone Hydromorphone TABL 4 mg ORAL completed [facility] Hydrochloride 4 Hcl ET Plai ns MG Oral Tablet [facility] Hydromorphone Hcl Hydroxyzine Hydroxyzine CAPS 1 ORAL completed White Pamoate 50 MG Pamoate ULE {[facility] Oral Capsule le} [facility] [Vistaril] Hydromorphone Hydromorphone TABL 4 mg [...] mg ORAL completed Whi te Magnesium ET, [facility] YED RELE ASE Hydromorphone Hydromorphone TABL 4 mg ORAL completed [facility] Hydrochloride 4 Hcl ET Plai ns MG Oral Tablet [facility] Hydromorphone Hcl Warfarin Sodium Warfarin Sodium TABL 2 mg ORAL completed [facility] 2 MG Oral Tablet ET [facility]in[facility] Folic Acid 0.8 Folic Acid TABL 0.8 mg ORAL completed [facility] MG Oral Tablet ET [facility] quetiapine 200 Quetiapine TABL 200 mg ORAL completed White MG Oral Tablet Fumarate [facility] F[facility]ate 24 HR Propranolol Hcl CONT 160 mg ORAL completed [facility] Propranolol ROLL [place] Hydrochloride 80 ED Hos pital MG Extended RELE Release Oral ASE Capsule CAPS Propranolol Hcl ULE febuxostat 40 MG Febuxostat TABL 1 ORAL completed White Oral Tablet ET {[facility] Febuxostat } [facility] Folic Acid 0.8 Folic Acid TABL 0.8 mg ORAL completed White MG Oral Tablet ET [facility] Colchicine 0.6 Colchicine TABL ORAL completed [facility] MG Oral Tablet ET [facility] 24 HR quetiapine Quetiapine TABL 400 mg ORAL completed [facility] 400 MG Extended Fumarate ET, [place] Release Oral EXTE Hospita l Tablet NDED Quetiapine RELE Fumarate ASE Colchicine 0.6 Colchicine TABL ORAL completed [facility] MG Oral Tablet ET [facility] Pravastatin Pravastatin TABL 40 mg ORAL completed White Sodium 20 MG Sodium ET [facility] Quetiapine 200 mg ORAL completed Wh ite [facility] 24 HR Propranolol Hcl CONT 160 mg ORAL completed [facility] Propranolol ROLL [place] Hydrochloride 80 ED Hos pital MG Extended RELE Release Oral ASE Capsule CAPS Propranolol Hcl ULE Amylases 302466 Amylase/Lipase/P CAPS 1 ORAL completed [facility] UNT / rotease ULE, {[facility] Endopeptidases DANTE le} [facility] 88905 UNT / YED Lipase 81759 UNT RELE Delayed Release ASE Oral Capsule [Creon] Amylase/Lipase/P rotease Prochlorperazine Prochlorperazine TABL 10 mg ORAL completed [facility] 5 MG Oral Tablet Maleate ET [place] Prochlorperazine Hos [facility]ital Maleate Quetiapine UNSP 200 mg ORAL [facility] Omeprazole 0.667 Omeprazole 40 mg ORAL completed [facility] MG/ML Oral Magnesium [facility] [Prilosec] Omeprazole Magnesium 12 HR Carbamazepine SUST 300 mg ORAL completed [facility] Carbamazepine TAMEKA [place] 200 MG Extended D Hosp ital Release Oral RELE Tablet ASE [Tegretol] TABL ET 24 HR quetiapine Quetiapine TABL 400 mg ORAL completed [facility] 400 MG Extended Fumarate ET, [place] Release Oral EXTE Hospita l Tablet NDED Quetiapine RELE Fumarate ASE 24 HR quetiapine Quetiapine TABL 200 mg ORAL completed [facility] 400 MG Extended Fumarate ET, [place] Release Oral EXTE Hospita l Tablet NDED Quetiapine RELE Fumarate ASE Warfarin Sodium Warfarin Sodium TABL 2 mg ORAL completed White 2 MG Oral Tablet ET [facility] [Coumadin] [facility] Furosemide 80 MG Furosemide TABL 80 mg ORAL completed [facility] Oral Tablet ET [place] [Lasix] [facility] Folic Acid 0.8 Folic Acid TABL 0.8 mg ORAL completed White MG Oral Tablet ET [facility] Furosemide 80 MG Furosemide TABL 80 mg ORAL completed [facility] Oral Tablet ET [place] [Las] [facility] Vitamin B 12 1 Cyanocobalamin TABL 1000 ORAL completed White MG Oral Tablet ET [facility] s Cyanocobalamin [facility]pi [facility] Vitamin B 12 1 Cyanocobalamin TABL 1000 ORAL completed White MG Oral Tablet ET [facility] Cyanocobalamin [facility] 24 HR Propranolol Hcl CAPS 160 mg ORAL completed [facility] Propranolol ULE, [place] Hydrochloride EXTE Hospit al 160 MG Extended NDED Release Oral RELE Capsule ASE Propranolol Hcl quetiapine 100 Quetiapine TABL 100 mg ORAL completed White MG Oral Tablet Fumarate ET P [facility] Quetiapine [facility] Fumarate Warfarin Sodium Warfarin Sodium TABL 4 mg ORAL completed White 4 MG Oral Tablet ET [facility] 12 HR Carbamazepine SUST 300 mg ORAL completed [facility] Carbamazepine TAMEKA [place] 200 MG Extended D Hosp ital Release Oral RELE Tablet ASE [Tegretol] TABL ET Hydromorphone Hydromorphone TABL 4 mg ORAL completed [facility] Hydrochloride 4 Hcl ET Plai ns MG Oral Tablet [facility] Hydromorphone Hcl Quetiapine completed Whit e Fumarate [facility] 12 HR Carbamazepine SUST 300 mg ORAL completed [facility] Carbamazepine TAMEKA [place] 200 MG Extended D Hosp ital Release Oral RELE Tablet ASE [Tegretol] TABL ET Warfarin Sodium Warfarin Sodium TABL 4 mg ORAL completed White 4 MG Oral Tablet ET [facility] Sucralfate 1000 Sucralfate TABL 1 g ORAL completed White MG Oral Tablet ET [facility] [Carafate] [facility] quetiapine 200 Quetiapine TABL 200 mg ORAL completed White MG Oral Tablet Fumarate [facility] Fumarate Warfarin Sodium Warfarin Sodium TABL 2 mg ORAL completed [facility] 2 MG Oral Tablet ET [facility]Coumadin] [facility] Pramipexole Pramipexole TABL 0.5 mg ORAL completed [facility] dihydrochloride Dihydrochloride ET [place] 0.25 MG Oral Hospita l Tablet [Mirapex] Pramipexole Dihydrochloride Amylases 686666 Amylase/Lipase/P CAPS 2 ORAL completed [facility] UNT / rotease ULE, {Capsu [place] Endopeptidases DANTE le} [facility] 94091 UNT / YED Lipase 52724 UNT RELE Delayed Release ASE Oral Capsule [Creon] Amylase/Lipase/P rotease febuxostat 40 MG Febuxostat TABL 40 mg ORAL completed [facility] Oral Tablet ET [place] [Uloric] [facility] Febuxostat 12 HR Carbamazepine SUST 300 mg ORAL completed [facility] Carbamazepine TAMEKA [place] 200 MG Extended D Hosp ital Release Oral RELE Tablet ASE [Tegretol] TABL ET 12 HR Carbamazepine SUST 300 mg ORAL completed White Carbamazepine TAMEKA [place] 200 MG Extended D Hosp ital Release Oral RELE Tablet ASE [Tegretol] TABL ET Prochlorperazine Prochlorperazine TABL 10 mg ORAL completed [facility] 5 MG Oral Tablet Maleate ET [place] Prochlorperazine Hos pital Maleate quetiapine 200 Quetiapine TABL 200 mg ORAL completed [facility] MG Oral Tablet Fumarate [facility] Fumarate Pravastatin Pravastatin TABL 40 mg ORAL completed [facility] Sodium 20 MG Sodium ET [facility] Warfarin Sodium Warfarin Sodium TABL 2 mg ORAL completed [facility] 2 MG Oral Tablet ET [facility]oumadin[facility] Vitamin B 12 1 Cyanocobalamin TABL [...] mg ORAL completed [facility] dihydrochloride Dihydrochloride ET [place] 0.25 MG Oral Hospita l Tablet [Mirapex] Pramipexole Dihydrochloride Pramipexole Pramipexole TABL 0.5 mg ORAL completed [facility] dihydrochloride Di-Hcl ET Pl ains 0.5 MG Oral Hospital Tablet Pramipexole Di-Hcl Quetiapine completed [facility] e [facility] Ranitidine Hcl TABL 300 mg ORAL completed [facility] ET [facility] 24 HR Propranolol Hcl CONT 160 mg ORAL completed [facility] Propranolol ROLL [place] Hydrochloride 80 ED Hos pital MG Extended RELE Release Oral ASE Capsule CAPS Propranolol Hcl ULE Pramipexole Pramipexole TABL 0.5 mg ORAL completed [facility] dihydrochloride Di-Hcl ET Pl a[facility] 0.5 MG Oral Hospital Tablet Pramipexole Di-Hcl 24 HR quetiapine Quetiapine TABL 1 ORAL completed [facility] 400 MG Extended Fumarate ET, {Capsu [place] Release Oral EXTE le} Hospita l Tablet NDED Quetiapine RELE Fumarate ASE Lorazepam 1 MG Lorazepam TABL 1 mg ORAL completed White Oral Tablet ET [facility] Hyoscyamine Hyoscyamine TABL 1 ORAL completed White Sulfate 0.125 MG Sulfate ET {Capsu [place] Oral Tablet le} [facility] [Levsin] quetiapine 100 Quetiapine TABL 100 mg ORAL completed White MG Oral Tablet F[facility]ate [facility]] [facility] Quetiapine Fumarate Calcium Calcium TABL 1 ORAL completed [facility] Carbonate 1250 Carbonate ET {Capsu [place] MG Oral Tablet le} [facility] apixaban 2.5 MG Apixaban TABL 2.5 mg ORAL completed [facility] Oral Tablet ET [place] [[facility]] [facility] Apiban febuxostat 40 MG Febuxostat TABL 40 mg ORAL completed [facility] Oral Tablet ET [place] [Uloric] [facility] Febuxostat aripiprazole 30 Aripiprazole TABL 30 mg ORAL completed White MG Oral Tablet ET [facility] [Abili] [facility] Aripiprazole Aspirin 325 MG Aspirin TABL 325 mg ORAL completed [facility] Oral Tablet ET [place] [[place] Aspirin] Hosp ital Lorazepam 1 MG Lorazepam TABL 1 mg ORAL completed White Oral Tablet ET [facility] Folic Acid TABL 1 mg ORAL completed [facility] e ET [facility] quetiapine 200 Quetiapine TABL 200 mg ORAL completed White MG Oral Tablet [facility]ate [facility] Fumarate Quetiapine 200 mg ORAL completed Wh ite [facility] apixaban 2.5 MG Apixaban TABL 2.5 mg ORAL completed [facility] Oral Tablet ET [place] [[facility]] [facility] Apixaban 24 HR quetiapine Quetiapine TABL 400 mg ORAL completed [facility] 400 MG Extended Fumarate ET, [place] Release Oral EXTE Hospita l Tablet NDED Quetiapine RELE Fumarate ASE 24 HR quetiapine Quetiapine TABL 200 mg ORAL completed [facility] 400 MG Extended Fumarate ET, [place] Release Oral EXTE Hospita l Tablet NDED Quetiapine RELE Fumarate ASE Hydroxyzine Hydroxyzine CAPS 50 mg ORAL completed White Pamoate 50 MG Pamoate ULE [facility] Oral Capsule Hospita l Omeprazole 0.667 Omeprazole 40 mg ORAL completed [facility] MG/ML Oral Magnesium [facility] [Prilosec] Omeprazole Magnesium Amylases 942003 Amylase/Lipase/P CAPS 507327 ORAL completed [facility] UNT / rotease ULE, [place] Endopeptidases DANTE [facility] 10006 UNT / YED Lipase 04557 UNT RELE Delayed Release ASE Oral Capsule [...] mg ORAL completed [facility] Oral Tablet ET [place] [[facility]] [facility] Apixaban 24 HR quetiapine Quetiapine TABL 400 mg ORAL completed [facility] 400 MG Extended Fumarate ET, [place] Release Oral EXTE Hospita l Tablet NDED Quetiapine RELE Fumarate ASE Calcium Calcium TABL 1 ORAL completed Whit e Carbonate 1250 Carbonate ET {Capsu [place] MG Oral Tablet le} [facility] quetiapine [...] mg ORAL completed [facility] dihydrochloride Dihydrochloride ET [place] 0.25 MG Oral Hospita l Tablet [Mirapex] Pramipexole Dihydrochloride 24 HR quetiapine Quetiapine TABL 400 mg ORAL completed [facility] 400 MG Extended Fumarate ET, [place] Release Oral EXTE Hospita l Tablet NDED Quetiapine RELE Fumarate ASE Omeprazole 0.667 Omeprazole 40 mg ORAL completed [facility] MG/ML Oral Magnesium [facility] [Prilosec] Omeprazole Magnesium 12 HR Carbamazepine SUST 300 mg ORAL completed [facility] Carbamazepine TAMEKA [place] 200 MG Extended D Hosp ital Release Oral RELE Tablet ASE [Tegretol] TABL ET Pramipexole Pramipexole TABL 0.5 mg ORAL completed [facility] dihydrochloride Dihydrochloride ET [place] 0.25 MG Oral Hospita l Tablet [Mirapex] Pramipexole Dihydrochloride Folic Acid 0.8 Folic Acid TABL 0.8 mg ORAL completed White MG Oral Tablet ET [facility] Amylases 479876 Amylase/Lipase/P CAPS 2 ORAL completed [facility] UNT / rotease ULE, {Capsu [place] Endopeptidases DANTE le} [facility] 34433 UNT / YED Lipase 09303 UNT RELE Delayed Release ASE Oral Capsule [...] 4 MG Oral Tablet ET [facility] Pravastatin Pravastatin TABL 40 mg ORAL completed [facility] Sodium 20 MG Sodium ET [facility] Oral [facility]t [facility] Amylases 509026 Amylase/Lipase/P CAPS 2 ORAL completed [facility] UNT / rotease ULE, {Capsu [place] Endopeptidases DANTE le} [facility] 86187 UNT / YED Lipase 42079 UNT RELE Delayed Release ASE Oral Capsule [Creon] Amylase/Lipase/P rotease Pramipexole Pramipexole TABL 0.5 mg ORAL completed [facility] dihydrochloride Di-Hcl ET Pl ains 0.5 MG Oral Hospital Tablet Pramipexole Di-Hcl 24 HR Propranolol Hcl CONT 160 mg ORAL completed [facility] Propranolol ROLL [place] Hydrochloride 80 ED Hos pital MG Extended RELE Release Oral ASE Capsule CAPS Propranolol Hcl ULE Omeprazole 0.667 Omeprazole 40 mg ORAL completed [facility] MG/ML Oral Magnesium [facility] [[facility]] Omeprazole Magnesium Hyoscyamine Hyoscyamine TABL ORAL completed [facility] Sulfate 0.125 MG Sulfate ET [place] Disintegrating [facility] Oral Tablet [Symax] Furosemide 80 MG Furosemide TABL 80 mg ORAL completed [facility] Oral Tablet ET [place] [Lasix] [facility] 24 HR quetiapine Quetiapine TABL 400 completed [facility] 400 MG Extended Fumarate ET, [place] Release Oral EXTE Hospita l Tablet NDED Quetiapine RELE Fumarate ASE Meclizine Meclizine Hcl TABL 25 mg ORAL completed [facility] Hydrochloride 25 ET [facility] MG Oral Tablet [facility] Meclizine Hcl Hydromorphone Hydromorphone TABL 4 mg ORAL completed [facility] Hydrochloride 4 Hcl ET Plai ns MG Oral Tablet [facility] Hydromorphone Hcl Amylases 554678 Amylase/Lipase/P CAPS 2 ORAL completed [facility] UNT / rotease ULE, {Capsu [place] Endopeptidases DANTE le} [facility] 85927 UNT / YED Lipase 71772 UNT RELE Delayed Release ASE Oral Capsule [Creon] Amylase/Lipase/P rotease 24 HR quetiapine Quetiapine TABL 400 mg ORAL completed [facility] 400 MG Extended Fumarate ET, [place] Release Oral EXTE Hospita l Tablet NDED Quetiapine RELE Fumarate ASE 24 HR Propranolol Hcl CONT 160 mg ORAL completed [facility] Propranolol ROLL [place] Hydrochloride 80 ED Hos pital MG Extended RELE Release Oral ASE Capsule CAPS Propranolol Hcl ULE Omeprazole 0.667 Omeprazole 40 mg ORAL completed [facility] MG/ML Oral Magnesium [facility] [Prilose] Omeprazole Magnesium Quetiapine 200 mg ORAL completed Wh ite Fumarate [facility] Hydroxyzine Hydroxyzine CAPS 50 mg ORAL [...] mg ORAL completed [facility] Oral Tablet ET [place] [U[facility]ic] [facility] Febuxostat febuxostat 40 MG Febuxostat TABL 40 mg ORAL completed [facility] Oral Tablet ET [place] [Uloric] [facility] Febuxostat Levothyroxine Levothyroxine TABL 150 ug ORAL completed [facility] Sodium 0.15 MG Sodium ET [facility] Oral Tablet Hospital sevelamer Sevelamer TABL 800 mg ORAL completed [facility] carbonate 800 MG Carbonate ET [place] Oral Tablet [facility] [Renvela] Sevelamer Carbonate Omeprazole 0.667 Omeprazole 40 mg ORAL completed [facility] MG/ML Oral Magnesium [facility] [Prilosec] Omeprazole Magnesium montelukast 10 Montelukast TABL 10 mg ORAL completed [facility] MG Oral Tablet Sodium ET [facility]Singulair] [facility] Montelukast Sodium montelukast 10 Montelukast TABL 10 mg ORAL completed White MG Oral Tablet Sodium ET [facility] [Singulair] [facility] Montelukast Sodium 12 HR Carbamazepine TABL 300 mg ORAL completed [facility] Carbamazepine ET, [place] 100 MG Extended EXTE Hosp ital Release Oral NDED Tablet RELE ASE Pramipexole Pramipexole TABL 0.5 mg ORAL completed [facility] dihydrochloride Dihydrochloride ET [place] 0.25 MG Oral Hospita l Tablet [Mirapex] Pramipexole Dihydrochloride Insurance Providers Payer name Policy type Policy ID Covered Covered democrat's Policy P jackie / Coverage democrat ID relationship to [place] Inf ormation type osborn R [id number] SP [id number] MEDICARE [id number] SP [id number] MEDICAID [id number] SP [id number] MEDICARE [id number] SP [id number] R85 UMR[employer] [id number] PT [id number] MEDICARE [id number] PT [id number] [id number] POM[employer] [id number] PT [id number] MEDICARE [id number] PT [id number] A POMCO [id number] PT [id number] UMR [id number] PT [id number] [place]AK[place] [id number] PT [id number] [facility] [id number] PT [id number] [facility] [id number] [facility] [id number] PT [id number] INC [employer]MR[employer] [id number] PT [id number] MEDICARE [id number] PT [id number] R85 [employer]MR[employer] [id number] PT [id number] OPTUM [id number] PT [id number] SECONDARY GOLD Problems, Conditions, and Diagnoses Code Display Name Description Problem Type Effective Data Sour ce(s) Dates F99 Mental disorder, not F99 Diagnosis 04/21/2020 [facility] [place] otherwise specified 08:02:00 PM Hosp ital EDT 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 04/21/2020 [facility] [place] disease of [place] 08:02:00 PM Hospit al coronary artery EDT without angina pectoris 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 Diagnosis 04/21/2020 [facility] 08:02:00 PM Hospital EDT I50.9 Heart failure, I50.9 Diagnosis 04/21/2020 [facility] unspecified 08:02:00 PM Hospital EDT I13.2 Hypertensive heart and I13.2 Diagnosis 04/21/2020 Wh ite [place] chronic kidney disease 08:02:00 PM H ospital [...] Toxic encephalopathy G92 Diagnosis 04/21/2020 [facility] [place] 08:02:00 PM Hospital EDT R41.82 Altered mental status, R41.82 Diagnosis 04/21/2020 Wh ite [place] unspecified 08:02:00 PM Hospital EDT R07.9 Chest pain, R07.9 Diagnosis 04/21/2020 [facility] unspecified 08:02:00 PM Hospital EDT Z87.11 Personal history of Z87.11 Diagnosis 04/21/2020 [facility] peptic ulcer disease 08:02:00 PM Hos pital EDT Z91.5 Personal history of Z91.5 Diagnosis 04/21/2020 [facility] self-harm 08:02:00 PM Hospital EDT Z88.1 Allergy status to Z88.1 Diagnosis 04/21/2020 [facility] [place] [facility] other antibiotic 08:02:00 PM Hospita l agents status EDT Z87.891 Personal history of Z87.891 Diagnosis 04/21/2020 [facility] nicotine dependence 08:02:00 PM Hosp ital EDT Z85.3 Personal history of Z85.3 Diagnosis 04/21/2020 [facility] malignant neoplasm of 08:02:00 PM Ho spital breast EDT Z20.828 Contact with and Z20.828 Diagnosis 04/21/[address] [facility] (suspected) exposure 08:02:00 PM Hos pital to other viral EDT communicable diseases Z79.891 penitentiary (current) Z79.891 Diagnosis 04/21/2020 [facility] use of opiate 08:02:00 PM Hospital analgesic EDT E03.9 Hypothyroidism, E03.9 Diagnosis 04/21/2020 [facility] unspecified 08:02:00 PM Hospital EDT E78.5 Hyperlipidemia, E78.5 Diagnosis 04/21/2020 [facility] unspecified 08:02:00 PM Hospital EDT J44.9 Chronic obstructive J44.9 Diagnosis 04/21/2020 [facility] pulmonary disease, 08:02:00 PM [facility] unspecified EDT Z88.2 Allergy status to Z88.2 Diagnosis 03/26/2020 [facility] sulfonamides status 10:52:00 AM Hosp ital EDT Z98.84 Bariatric surgery Z98.84 Diagnosis 03/26/2020 [facility] status 10:52:00 AM Hospital EDT G25.81 Restless legs syndrome G25.81 Diagnosis 03/26/2020 [facility] [place] 10:52:00 AM Hospital EDT G89.29 Other chronic pain G89.29 Diagnosis 03/26/2020 [facility] 10:52:00 AM Hospital EDT Z53.29 Procedure and Z53.29 Diagnosis 03/26/2020 [place] treatment not carried 10:52:00 AM Ho spital out because of EDT patient's decision for other reasons Z91.14 Patient's other Z91.14 Diagnosis 03/26/2020 [facility] noncompliance with 10:52:00 AM [facility] medication regimen EDT F43.20 Adjustment disorder, F43.20 Diagnosis 03/26/2020 [facility] [place] unspecified 10:52:00 AM Hospital EDT M54.5 Low back pain M54.5 Diagnosis 03/26/2020 [place] [facility] 10:52:00 AM Hospital EDT M54.2 Cervicalgia M54.2 Diagnosis 03/26/2020 [facility] 10:52:00 AM Hospital EDT E11.22 Type 2 diabetes E11.22 Diagnosis 03/26/2020 [facility] [facility] mellitus with diabetic 10:52:00 AM H ospital chronic kidney disease EDT Z11.59 Encounter for Z11.59 Diagnosis 03/26/2020 [place] screening for other 10:52:00 AM Hosp ital viral diseases EDT I48.91 Unspecified atrial I48.91 Diagnosis 03/26/2020 [facility] fibrillation 10:52:00 AM Hospital EDT 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 F60.3 Diagnosis 03/26/2020 [facility] [place] disorder 10:52:00 AM Hospital EDT R45.851 Suicidal ideations R45.851 Diagnosis 03/26/2020 [facility] 10:52:00 AM Hospital EDT I12.0 Hypertensive chronic I12.0 Diagnosis 03/26/2020 [facility] [place] kidney disease with 10:52:00 AM Hosp ital stage 5 chronic kidney EDT disease or end stage renal disease R55 Syncope and collapse R55 Diagnosis 02/23/2020 [facility] [place] 11:43:00 AM Hospital EDT M25.569 Pain in unspecified M25.569 Diagnosis 02/23/2020 [facility] knee 11:43:00 AM Hospital EDT R09.02 Hypoxemia R09.02 Diagnosis 02/08/2020 [facility] 11:02:00 PM Hospital EDT E87.70 Fluid overload, E87.70 Diagnosis 02/08/2020 [facility] [facility] unspecified 11:02:00 PM Hospital EDT M79.609 Pain in unspecified M79.609 Diagnosis 01/21/2020 [facility] limb 11:27:00 AM Hospital EDT M54.9 Dorsalgia, unspecified M54.9 Diagnosis 01/21/2020 [facility]e [place] 11:27:00 AM Hospital EDT M48.10 Ankylosing M48.10 Diagnosis 01/17/2020 [facility] hyperostosis 12:41:00 PM Hospital [[facility]], site EDT unspecified D63.1 Anemia in chronic D63.1 Diagnosis 01/17/2020 [place] kidney disease 12:41:00 PM Hospital EDT E87.5 Hyperkalemia E87.5 Diagnosis 01/17/2020 [facility] 12:41:00 PM Hospital EDT E83.51 Hypocalcemia E83.51 Diagnosis 01/17/2020 [facility] 12:41:00 PM Hospital EDT G89.4 Chronic pain syndrome G89.4 Diagnosis 01/17/2020 [facility] te [place] 12:41:00 PM Hospital EDT Z87.01 Personal history of Z87.01 Diagnosis 01/17/2020 [facility] pneumonia (recurrent) 12:41:00 PM Ho spital EDT E87.79 Other fluid overload E87.79 Diagnosis 01/17/2020 [facility] [place] 12:41:00 PM Hospital EDT J96.01 Acute respiratory J96.01 Diagnosis 01/17/2020 [place] failure with hypoxia 12:41:00 PM [facility] EDT Y99.9 Unspecified external Y99.9 Diagnosis 01/14/2020 [facility] [place] cause status 07:48:00 AM Hospital EDT Y93.9 Activity, unspecified Y93.9 Diagnosis 01/14/2020 [facility] te [place] 07:48:00 AM Hospital EDT W19.XXXA Unspecified fall, W19.XXXA Diagnosis 01/14/2020 [facility] [place] [facility] initial encounter 07:48:00 AM Hospit al EDT Y92.000 Kitchen of unspecified Y92.000 Diagnosis 01/14/2020 [facility] [place] non-institutional 07:48:00 AM Hospit al (private) residence [...] Renal osteodystrophy N25.0 Diagnosis 01/14/2020 [facility] 07:48:00 AM Hospital EDT S20.212A Contusion of left S20.212A Diagnosis 01/14/2020 [place] front wall of thorax, 07:48:00 AM Ho spital initial encounter EDT T41.3X5A Adverse effect of T41.3X5A Diagnosis 12/07/2019 [place] local anesthetics, 05:51:00 PM [facility] initial encounter EDT E87.2 Acidosis E87.2 Diagnosis 12/07/2019 [facility] 05:51:00 PM Hospital EDT T82.868A Thrombosis due to T82.868A Diagnosis 12/07/2019 [place] vascular prosthetic 05:51:00 PM [facility]osp [facility] devices, implants and EDT grafts, initial encounter R00.1 Bradycardia, R00.1 Diagnosis 12/07/2019 [facility] unspecified 05:51:00 PM Hospital EDT E83.39 Other disorders of OTHER DISORDERS Diagnosis 11/26/2019 [facility] phosphorus metabolism OF PHOSPHORUS 06:15:00 PM [facility] METABOLISM EDT Care ice D63.8 Anemia in other ANEMIA IN OTHER Diagnosis 11/26/2019 [place] chronic diseases CHRONIC DISEASES 06:15:00 PM [facility] classified elsewhere CLASSIFIED EDT Care [facility] Corporation Z53.29 Procedure and PROC/TRTMT NOT Diagnosis 11/26/2019 [facility] treatment not carried CRD OUT BEC PT 06:15:00 P [facility] out because of DECISION FOR OTH EDT Care patient's decision for REASONS Co rporation other reasons Z95.818 Presence of other PRESENCE OF OTHER Diagnosis 11/26/2019 [place] cardiac implants and CARDIAC IMPLANTS 06:15:00 PM [facility] grafts AND GRAFTS EDT Care [facility] R40.2412 Fiorella coma scale FIORELLA COMA Diagnosis 11/26/2019 [place] score 13-15, at SCALE SCORE 06:15:00 PM [facility] arrival to emergency 13-15, EMR EDT Care department ice Z91.81 History of falling HISTORY OF Diagnosis 11/26/2019 [facility] FALLING 06:15:00 PM [facility] EDT Care ice Z86.73 Personal history of PRSNL HX OF TIA Diagnosis 11/26/2019 [place] transient ischemic (TIA), AND CEREB 06:15:00 PM [facility] attack (TIA), and INFRC W/O RESID EDT Ca re cerebral infarction DEFICITS Corpo ration without residual deficits Z87.891 Personal history of PERSONAL HISTORY Diagnosis 11/26/2019 [place] nicotine dependence OF NICOTINE 06:15:00 PM [facility] [id number] DEPENDENCE EDT Care Corporation Z98.84 Bariatric surgery BARIATRIC SURGERY Diagnosis 11/26/2019 [place] status STATUS 06:15:00 PM [facility] EDT Care ice Z92.21 Personal history of PERSONAL HISTORY Diagnosis 11/26/2019 [place] antineoplastic OF ANTINEOPLASTIC 06:15:00 PM [employer] chemotherapy CHEMOTHERAPY EDT Care ice Z85.3 Personal history of PERSONAL HISTORY Diagnosis 11/26/2019 [place] malignant neoplasm of OF MALIGNANT 06:15:00 [facility] breast NEOPLASM OF EDT Care BREAST ice 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 11/26/2019 [facility] dialysis RENAL DIALYSIS 06:15:00 PM Counts include 234 beds at the [facility] EDT Care ice X58.XXXA Exposure to other EXPOSURE TO OTHER Diagnosis 11/26/2019 [place] specified factors, SPECIFIED 06:15:00 PM [facility] initial encounter FACTORS, INITIAL EDT C are ENCOUNTER Corporation Y92.[address] in OTH PLACE IN Diagnosis 11/26/2019 [facility] apartment as the place APARTMENT 06:15:00 PM [facility] of occurrence of the PLACE EDT Care external cause Corporatio n W18.39XA Other fall on same OTHER FALL ON Diagnosis 11/26/2019 [place] level, initial SAME LEVEL, 06:15:00 PM [facility] ealth encounter INITIAL ENCOUNTER EDT Care ice G25.81 Restless legs syndrome RESTLESS LEGS Diagnosis 11/26/2019 [place] SYNDROME 06:15:00 PM [facility] EDT [facility] Corporation E03.8 Other specified OTHER SPECIFIED Diagnosis 11/26/2019 [facility] hypothyroidism HYPOTHYROIDISM 06:15:00 PM [facility] EDT [facility] 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 Diagnosis 11/26/2019 [place] hyperostosis HYPEROSTOSIS 06:15:00 PM [facility] site ([facility]), SITE EDT Care unspecified UNSPECIFIED Corporation F43.10 Post-traumatic stress POST-TRAUMATIC Diagnosis 11/26/2019 [place] disorder, unspecified STRESS DISORDER, 06:15:00 PM [facility] UNSPECIFIED EDT Care ice 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 BORDERLINE Diagnosis 11/26/2019 [place] disorder PERSONALITY 06:15:00 PM [facility]T [facility] S01.01XA Laceration without LACERATION Diagnosis 11/26/2019 [facility] silke foreign body of scalp, WITHOUT FOREIGN 06:15:00 PM [facility] initial encounter BODY OF SCALP, EDT Car e INITIAL ENCOUNTER Corpora tion G62.9 Polyneuropathy, POLYNEUROPATHY, Diagnosis 11/26/2019 [place] unspecified UNSPECIFIED 06:15:00 PM [facility] M10.9 Gout, unspecified GOUT, UNSPECIFIED Diagnosis 11/26/2019 [place] 06:15:[facility] I47.2 Ventricular VENTRICULAR Diagnosis 11/26/2019 [place] tachycardia [facility]ARD[facility] F31.89 Other bipolar disorder OTHER BIPOLAR Diagnosis 11/26/2019 [place] DISORDER 06:15:00 [facility] I12.0 Hypertensive chronic HYP CHR KIDNEY Diagnosis 11/26/2019 [place] kidney disease with DISEASE W STAGE 5 06:15:00 PM [facility] stage 5 chronic kidney CHR KIDNEY EDT Ca re disease or end stage DISEASE OR ESRD [facility] renal disease N18.6 End stage renal END STAGE RENAL Diagnosis 11/26/2019 [place] disease DISEASE 06:15:00 [facility] R55 Syncope and collapse SYNCOPE AND Diagnosis 11/22/2019 [place] COLLAPSE 11:37:00 [facility] D64.9 Anemia, unspecified D64.9 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/13/2019 [facility] 09:29:00 PM Hospital EST K29.00 Acute gastritis K29.00 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/13/2019 [place] without bleeding 09:29:00 PM Hospita l EST Z79.899 Other alf Z79.899 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/13/2019 [place] [facility] (current) drug therapy 09:29:00 PM H ospital EST K82.8 Other specified K82.8 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/13/2019 [place] diseases of 09:29:00 PM Hospital gallbladder EST K44.9 Diaphragmatic hernia K44.9 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/13/2019 [facility] without obstruction or 09:29:00 PM H ospital gangrene EST K21.0 Gastro-esophageal K21.0 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/13/2019 [place] reflux disease with 09:29:00 PM Hosp [facility] esophagitis EST F41.9 Anxiety disorder, F41.9 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/13/2019 [place] unspecified 09:29:00 PM Hospital EST I44.7 Left bundle-branch I44.7 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/13/2019 [facility] block, unspecified 09:29:00 PM [facility] EST K22.10 Ulcer of esophagus K22.10 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/13/2019 [facility] without bleeding 09:29:00 PM Hospita l EST B37.81 Candidal esophagitis B37.81 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/13/2019 [facility] 09:29:00 PM Hospital EST 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 09:29:00 PM [facility]osp [facility] with hemorrhage EST K58.9 Irritable bowel K58.9 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/04/2019 [facility] ins syndrome without 05:02:00 AM Hospita l diarrhea EST K92.2 Gastrointestinal K92.2 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/04/2019 [place] hemorrhage, 05:02:00 AM Hospital unspecified EST M10.9 Gout, unspecified M10.9 Diagnosis 08/25/2019 [place] 01:02:00 PM Hospital EST F41.8 Other specified F41.8 Diagnosis 08/25/2019 [facility] ins anxiety disorders 01:02:00 PM Hospit al EST Y92.230 Patient room in Y92.230 Diagnosis 07/15/2019 [facility] as the [facility] 02:27:00 AM Ho spital of occurrence of the EST external cause T38.0X5A Adverse effect of T38.0X5A Diagnosis 07/15/2019 [place] glucocorticoids and 02:27:00 AM Hosp [facility] synthetic analogues, EST initial encounter F29 Unspecified psychosis F29 Diagnosis 07/15/2019 [facility] [place] not due to a substance 02:27:00 AM H ospital or known physiological EST condition J44.1 Chronic obstructive J44.1 Diagnosis 07/15/2019 [facility] pulmonary disease with 02:27:00 AM H ospital (acute) exacerbation EST 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/15/2019 [facility] hyperparathyroidism of 02:27:00 AM H ospital renal origin EST 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 02:27:00 AM Hospit al EST J96.02 Acute respiratory J96.02 Diagnosis 07/15/2019 [place] failure with 02:27:00 AM Hospital hypercapnia EST J18.9 Pneumonia, unspecified J18.9 Diagnosis 07/15/2019 [facility] organism 02:27:00 AM Hospital EST J44.0 Chronic obstructive J44.0 Diagnosis 07/15/2019 [facility] pulmonary disease with 02:27:00 AM H ospital acute lower EST respiratory infection R45.1 Restlessness and R45.1 Diagnosis 07/15/[address] [place] agitation 02:27:00 AM Hospital EST 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 07/15/2019 [facility] use of aspirin 02:27:00 AM Hospital EST M41.9 Scoliosis, unspecified M41.9 Diagnosis 07/15/2019 [facility] [place] 02:27:00 AM Hospital EST K58.0 Irritable bowel K58.0 Diagnosis 07/15/2019 [place] syndrome with diarrhea 02:27:00 AM H ospital EST G20 Parkinson's disease G20 Diagnosis 07/15/2019 [facility] 02:27:00 AM Hospital EST M81.0 Age-related M81.0 Diagnosis 07/15/2019 [facility] osteoporosis without 02:27:00 AM Hos pital current [...] with vomiting, R11.2 Diagnosis 07/02/2019 [place] unspecified 09:30:00 PM Hospital EST Z95.818 Presence of other Z95.818 Diagnosis 05/22/2019 [place] cardiac implants and 11:22:00 AM Hos pital grafts EDT H53.8 Other visual H53.8 Diagnosis 05/19/2019 [facility] disturbances 06:20:00 PM Hospital EDT R51 Headache R51 Diagnosis 05/19/2019 [facility] 06:20:00 PM Hospital EDT M79.632 Pain in left forearm M79.632 Diagnosis 05/07/2019 [facility] 03:37:00 PM Hospital EDT Z86.73 Personal history of Z86.73 Diagnosis 04/21/2019 [facility] transient ischemic 07:20:00 AM [facility] attack (TIA), 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 Z91.81 History of falling Z91.81 Diagnosis 04/21/2019 [facility] 07:20:00 AM Hospital EDT I73.9 Peripheral vascular I73.9 Diagnosis 04/21/2019 [place] disease, unspecified 07:20:00 AM Hos pital EDT R29.6 Repeated falls R29.6 Diagnosis 04/21/2019 [place] 07:[facility]:00 AM Hospital EDT Z91.11 Patient's Z91.11 Diagnosis 04/19/2019 [facility] noncompliance with 06:25:00 PM [facility] dietary regimen EDT 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) Z79.02 Diagnosis 04/19/2019 [facility] use of 06:25:00 PM Hospital antithrombotics/antipl EDT atelets I48.20 I48.20 I48.20 Diagnosis 04/19/2019 [facility] 06:25:00 PM Hospital EDT I50.33 Acute on chronic I50.33 Diagnosis 04/19/[address] [place] diastolic (congestive) 06:25:00 PM H ospital heart failure EDT Surgeries/Procedures Procedure Description Date Indications Data Source(s) Physical therapy procedure 04/23/2020 [facility] [place] (regime/therapy) 12:00:00 AM Hospital EDT Plain chest X-ray (procedure) 04/22/2020 [facility] 12:00:00 AM Hospital EDT Electrocardiographic procedure 04/22/2020 [facility] (procedure) 12:00:00 AM Hospital EDT Computed tomography of head 04/22/2020 [facility] without contrast 12:00:00 AM Hospital EDT Echocardiography (procedure) 04/22/2020 [facility] 12:00:00 AM Hospital EDT Electrocardiographic procedure 04/21/2020 [facility] (procedure) 12:00:00 AM Hospital EDT Computed tomography of abdomen 04/21/2020 [facility] and pelvis without contrast 12:00:00 AM Hospital EDT Electrocardiographic procedure 04/21/2020 [facility] (procedure) 12:00:00 AM Hospital EDT Computed tomography of head 03/31/2020 [facility] without contrast 12:00:00 AM Hospital EDT Nebulizer therapy (procedure) 03/31/2020 [facility] 12:00:00 AM Hospital EDT Pelvic echography (procedure) 03/31/2020 [facility] 12:00:00 AM Hospital EDT Computed tomography of head 03/31/2020 [facility] without contrast 12:00:00 AM Hospital EDT Nebulizer therapy (procedure) 03/31/2020 [facility] 12:00:00 AM Hospital EDT Pelvic echography (procedure) 03/31/2020 [facility] 12:00:00 AM Hospital EDT Physical therapy procedure 03/28/2020 [facility] [place] (regime/therapy) 12:00:00 AM Hospital EDT Physical therapy procedure 03/28/2020 [facility] [place] (regime/therapy) 12:00:00 AM Hospital EDT PERFORMANCE OF URINARY 03/27/2020 [facility] FILTRATION, <6 HRS/DAY 12:00:00 AM [facility] EDT Electrocardiographic procedure 03/25/2020 [facility] (procedure) 12:00:00 AM Hospital EDT Electrocardiographic procedure 03/25/2020 [facility] (procedure) 12:00:00 AM Hospital EDT X-ray of both knees 02/23/[address] [place] (procedure) 12:00:00 AM Hospital EDT Plain chest X-ray (procedure) 02/23/2020 [facility] 12:00:00 AM Hospital EDT Electrocardiographic procedure 02/23/2020 [facility] (procedure) 12:00:00 AM Hospital EDT Computed tomography of head 02/23/2020 [facility] without contrast 12:00:00 AM Hospital EDT Plain chest X-ray (procedure) 02/08/2020 [facility] 12:00:00 AM Hospital EDT Electrocardiographic procedure 02/08/2020 [facility] (procedure) 12:00:00 AM Hospital EDT HOSPITAL OBSERVATION PER HR 02/08/2020 [facility] 12:00:00 AM Hospital EDT X-ray exam chest 1 view 02/08/2020 [facility] [place] 12:00:00 AM Hospital EDT Electrocardiogram tracing 02/08/2020 [facility] [place] 12:00:00 AM Hospital EDT Assay of natriuretic peptide 02/08/2020 [facility] 12:00:00 AM Hospital EDT Assay of troponin qual 02/08/2020 [facility] 12:00:00 AM Hospital EDT Comprehen metabolic panel 02/08/2020 [facility] [place] 12:00:00 AM Hospital EDT Comprehen metabolic panel 02/08/2020 [facility] [place] 12:00:00 AM Hospital EDT Mr-staph dna amp probe 02/08/2020 [facility] 12:00:00 AM Hospital EDT SARS-COV-2 COVID-19 AMP PRB 02/08/2020 [facility] 12:00:00 AM Hospital EDT Complete cbc automated 02/08/2020 [facility] 12:00:00 AM Hospital EDT Plain chest X-ray (procedure) 02/08/2020 [facility] 12:00:00 AM Hospital EDT Electrocardiographic procedure 02/08/2020 [facility] (procedure) 12:00:00 AM Hospital EDT Complete cbc w/auto diff wbc 02/08/2020 [facility] 12:00:00 AM Hospital EDT Blood gases any combination 02/08/2020 [facility] 12:00:00 AM Hospital EDT Emergency dept visit 02/08/2020 [place] 12:00:00 AM Hospital EDT Physical therapy procedure 01/21/2020 [facility] [place] (regime/therapy) 12:00:00 AM Hospital EDT Electrocardiographic procedure 01/21/2020 [facility] (procedure) 12:00:00 AM Hospital EDT Diagnostic radiography of 01/21/2020 [facility] [place] abdomen (procedure) 12:00:00 AM Hospital EDT Plain chest X-ray (procedure) 01/21/2020 [facility] 12:00:00 AM Hospital EDT Pt eval low complex 20 min 01/21/2020 [facility] [place] 12:00:00 AM Hospital EDT X-ray exam chest 1 view 01/21/2020 [facility] [place] 12:00:00 AM Hospital EDT X-ray exam abdomen 2 views 01/21/2020 [facility] [place] 12:00:00 AM Hospital EDT Assay of troponin qual 01/21/2020 [facility] 12:00:00 AM Hospital EDT Assay of lipase 01/21/2020 [facility] 12:00:00 AM Hospital EDT Assay of lactic acid 01/21/2020 [place] 12:00:00 AM Hospital EDT Comprehen metabolic panel 01/21/2020 [facility] [place] 12:00:00 AM Hospital EDT Blood culture for bacteria 01/21/2020 [facility] [place] 12:00:00 AM Hospital EDT Mr-staph dna amp probe 01/21/2020 [facility] 12:00:00 AM Hospital EDT SARS-COV-2 COVID-19 AMP PRB 01/21/2020 [facility] 12:00:00 AM Hospital EDT Prothrombin time 01/21/2020 [place] 12:00:00 AM Hospital EDT Bl smear w/diff wbc count 01/21/2020 [facility] [place] 12:00:00 AM Hospital EDT Complete cbc automated 01/21/2020 [facility] 12:00:00 AM Hospital EDT Thromboplastin time partial 01/21/2020 [facility] 12:00:00 AM Hospital EDT Emergency dept visit 01/21/2020 [place] 12:00:00 AM Hospital EDT Plain chest X-ray (procedure) 01/21/2020 [facility] 12:00:00 AM Hospital EDT Physical therapy procedure 01/21/2020 [facility] [place] [place] (regime/therapy) 12:00:00 AM Hospital EDT Electrocardiographic procedure 01/21/2020 [facility] (procedure) 12:00:00 AM Hospital EDT Diagnostic radiography of 01/21/2020 [facility] [place] abdomen (procedure) 12:00:00 AM Hospital EDT Physical therapy procedure 01/16/2020 [facility] [place] (regime/therapy) 12:00:00 AM Hospital EDT PERFORMANCE OF URINARY 01/16/2020 [facility] FILTRATION, <6 HRS/DAY 12:00:00 AM [facility] EDT Physical therapy procedure 01/16/2020 [place] (regime/therapy) 12:00:00 AM Hospital EDT Physical therapy procedure 01/16/2020 [facility] [place] (regime/therapy) 12:00:00 AM Hospital EDT Oxygen therapy (procedure) 01/15/2020 [facility] [place] 12:00:00 AM Hospital EDT Electrocardiographic procedure 01/15/2020 [facility] (procedure) 12:00:00 AM Hospital EDT Plain chest X-ray (procedure) 01/15/2020 [facility] 12:00:00 AM Hospital EDT Oxygen therapy (procedure) 01/15/2020 [place] [place] 12:00:00 AM Hospital EDT Electrocardiographic procedure 01/15/2020 [facility] (procedure) 12:00:00 AM Hospital EDT Plain chest X-ray (procedure) 01/15/2020 [facility] 12:00:00 AM Hospital EDT Oxygen therapy (procedure) 01/15/2020 [facility] [place] 12:00:00 AM Hospital EDT Electrocardiographic procedure 01/15/2020 [facility] (procedure) 12:00:00 AM Hospital EDT Plain chest X-ray (procedure) 01/15/2020 [facility] 12:00:00 AM Hospital EDT Incentive spirometry 01/14/2020 [place] (regime/therapy) 12:00:00 AM Hospital EDT Computed tomography of head 01/14/2020 [facility] without contrast 12:00:00 AM Hospital EDT Computed tomography of chest, 01/14/2020 [facility] abdomen, and pelvis without 12:00:00 AM Hospital contrast EDT Electrocardiographic procedure 01/14/2020 [facility] (procedure) 12:00:[address] abd & pelvis w/o contrast 01/14/2020 [facility] 12:00:[address] head/brain w/o dye 01/14/2020 [facility] 12:00:[address] thorax w/o dye 01/14/2020 [place] 12:00:00 AM Hospital EDT Electrocardiogram tracing 01/14/2020 [facility] [place] 12:00:00 AM Hospital EDT Assay of troponin qual 01/14/2020 [facility] 12:00:00 AM Hospital EDT Reagent strip/blood glucose 01/14/2020 [facility] 12:00:00 AM Hospital EDT Comprehen metabolic panel 01/14/2020 [facility] [place] 12:00:00 AM Hospital EDT Mr-staph dna amp probe 01/14/2020 [facility] 12:00:00 AM Hospital EDT SARS-COV-2 COVID-19 AMP PRB 01/14/2020 [facility] 12:00:00 AM Hospital EDT Prothrombin time 01/14/2020 [place] 12:00:00 AM Hospital EDT Bl smear w/diff wbc count 01/14/2020 [facility] [place] 12:00:00 AM Hospital EDT Complete cbc automated 01/14/2020 [facility] 12:00:00 AM Hospital EDT Thromboplastin time partial 01/14/2020 [facility] 12:00:00 AM Hospital EDT Emergency dept visit 01/14/2020 [place] 12:00:00 AM Hospital EDT Incentive spirometry 01/14/2020 [place] (regime/therapy) 12:00:00 AM Hospital EDT Computed tomography of head 01/14/2020 [facility] without contrast 12:00:00 AM Hospital EDT Computed tomography of chest, 01/14/2020 [facility] abdomen, and pelvis without 12:00:00 AM Hospital contrast EDT Electrocardiographic procedure 01/14/2020 [facility] (procedure) 12:00:[address] abd & pelvis w/o contrast 01/14/2020 [facility] 12:00:[address] head/brain w/o dye 01/14/2020 [facility] 12:00:[address] thorax w/o dye 01/14/2020 [place] 12:00:00 AM Hospital EDT Electrocardiogram tracing 01/14/2020 [facility] 12:00:00 AM Hospital EDT Assay of troponin qual 01/14/2020 [facility] 12:00:00 AM Hospital EDT Reagent strip/blood glucose 01/14/2020 [facility] 12:00:00 AM Hospital EDT Comprehen metabolic panel 01/14/2020 [facility] [place] 12:00:00 AM Hospital EDT Mr-staph dna amp probe 01/14/2020 [facility] 12:00:00 AM Hospital EDT SARS-COV-2 COVID-19 AMP PRB 01/14/2020 [facility] 12:00:00 AM Hospital EDT Prothrombin time 01/14/2020 [place] 12:00:00 AM Hospital EDT Bl smear w/diff wbc count 01/14/2020 [facility] 12:00:00 AM Hospital EDT Complete cbc automated 01/14/2020 [facility] 12:00:00 AM Hospital EDT Thromboplastin time partial 01/14/2020 [facility] 12:00:00 AM Hospital EDT Emergency dept visit 01/14/2020 [place] 12:00:00 AM Hospital EDT Incentive spirometry 01/14/2020 [place] (regime/therapy) 12:00:00 AM Hospital EDT Computed tomography of head 01/14/2020 [facility] without contrast 12:00:00 AM Hospital EDT Computed tomography of chest, 01/14/2020 [facility] abdomen, and pelvis without 12:00:00 AM Hospital contrast EDT Electrocardiographic procedure 01/14/2020 [facility] (procedure) 12:00:00 AM Hospital EDT Incentive spirometry 01/14/2020 [place] (regime/therapy) 12:00:00 AM Hospital EDT Computed tomography of head 01/14/2020 [facility] without contrast 12:00:00 AM Hospital EDT Computed tomography of chest, 01/14/2020 [facility] abdomen, and pelvis without 12:00:00 AM Hospital contrast EDT Electrocardiographic procedure 01/14/2020 [facility] (procedure) 12:00:[address] abd & pelvis w/o contrast 01/14/2020 [facility] 12:00:[address] head/brain w/o dye 01/14/2020 [facility] 12:00:[address] thorax w/o dye 01/14/2020 [place] 12:00:00 AM Hospital EDT Electrocardiogram tracing 01/14/2020 [place] [facility] 12:00:00 AM Hospital EDT Assay of troponin qual 01/14/2020 [facility] 12:00:00 AM Hospital EDT Reagent strip/blood glucose 01/14/2020 [facility] 12:00:00 AM Hospital EDT Comprehen metabolic panel 01/14/2020 [facility] [place] 12:00:00 AM Hospital EDT Mr-staph dna amp probe 01/14/2020 [facility] 12:00:00 AM Hospital EDT SARS-COV-2 COVID-19 AMP PRB 01/14/2020 [facility] 12:00:00 AM Hospital EDT Prothrombin time 01/14/2020 [place] 12:00:00 AM Hospital EDT Bl smear w/diff wbc count 01/14/2020 [place] [facility] 12:00:00 AM Hospital EDT Complete cbc automated 01/14/2020 [facility] 12:00:00 AM Hospital EDT Thromboplastin time partial 01/14/2020 [facility] 12:00:00 AM Hospital EDT Emergency dept visit 01/14/2020 [place] 12:00:00 AM Hospital EDT Oxygen therapy (procedure) 12/09/2019 [facility] [place] 12:00:00 AM Hospital EDT Electrocardiographic procedure 12/07/2019 [facility] (procedure) 12:00:00 AM Hospital EDT Incentive spirometry 12/07/2019 [place] (regime/therapy) 12:00:00 AM Hospital EDT Plain chest X-ray (procedure) 12/07/2019 [facility] 12:00:00 AM Hospital EDT Oxygen therapy (procedure) 12/07/2019 [facility] [place] 12:00:00 AM Hospital EDT Electrocardiographic procedure 12/07/2019 [facility] (procedure) 12:00:00 AM Hospital EDT Hepatobiliary iminodiacetic 09/14/2019 [facility] acid (HIDA) scan 12:00:00 AM Hospital EST Electrocardiographic procedure 09/14/2019 [facility] (procedure) 12:00:00 AM Hospital EST Ultrasonography of abdomen 09/13/2019 [facility] [place] (procedure) 12:00:00 AM Hospital EST Computed tomography 09/13/[address] [place] angiography of thorax 12:00:00 AM Hospit al (procedure) EST Electrocardiographic procedure 09/13/2019 [facility] (procedure) 12:00:00 AM Hospital EST Nebulizer therapy (procedure) 09/05/2019 [facility] 12:00:00 AM Hospital EST Nebulizer therapy (procedure) 09/05/2019 [facility] 12:00:00 AM Hospital EST Nebulizer therapy (procedure) 09/04/2019 [facility] 12:00:00 AM Hospital EST Plain chest X-ray (procedure) 09/04/2019 [facility] 12:00:00 AM Hospital EST Electrocardiographic procedure 09/04/2019 [facility] (procedure) 12:00:00 AM Hospital EST Nebulizer therapy (procedure) 09/04/2019 [facility] 12:00:00 AM Hospital EST Plain chest X-ray (procedure) 09/04/2019 [facility] 12:00:00 AM Hospital EST Electrocardiographic procedure 09/04/2019 [facility] (procedure) 12:00:00 AM Hospital EST PERFORMANCE OF URINARY 09/04/2019 [facility] FILTRATION, <6 HRS/DAY 12:00:00 AM [facility] EST TRANSFUSE NONAUT RED BLOOD 09/04/2019 [facility] [place] CELLS IN PERIPH VEIN, PERC 12:00:00 AM H ospital EST PERFORMANCE OF URINARY 08/25/2019 [facility] FILTRATION, <6 HRS/DAY 12:00:00 AM [facility] EST PERFORMANCE OF URINARY 08/25/2019 [facility] FILTRATION, <6 HRS/DAY 12:00:00 AM [facility] EST Noninvasive positive pressure 08/24/2019 [facility] ventilation (procedure) 12:00:00 AM Hosp [facility] EST Nebulizer therapy (procedure) 08/24/2019 [facility] 12:00:00 AM Hospital EST Electrocardiographic procedure 08/24/2019 [facility] (procedure) 12:00:00 AM Hospital EST Noninvasive positive pressure 08/24/2019 [facility] ventilation (procedure) 12:00:00 AM [facility]osp [facility] EST Nebulizer therapy (procedure) 08/24/2019 [facility] 12:00:00 AM Hospital EST Electrocardiographic procedure 08/24/2019 [facility] (procedure) 12:00:00 AM Hospital EST Noninvasive positive pressure 08/24/2019 [facility] ventilation (procedure) 12:00:00 AM [facility] EST Nebulizer therapy (procedure) 08/24/2019 [facility] 12[facility]:00 [facility] EST Electrocardiographic procedure 08/24/2019 [facility] (procedure) 12:00:00 AM [facility] EST Radiography of thoracic spine 08/04/2019 [facility] (procedure) 12:00:00 AM [facility] EST Diagnostic radiography of 08/04/2019 [facility] lumbar spine, combined 12:00:00 [facility] anteroposterior and lateral EST (procedure) X-ray exam l-s spine 2/3 vws 08/04/2019 [facility] 12:00:00 AM [facility] EST X-ray exam thorac spine 2vws 08/04/2019 [facility] 12:00:00 AM [facility] EST Emergency dept visit 08/04/2019 [place] 12:00:00 AM [facility] EST Radiography of thoracic spine 08/04/2019 [facility] (procedure) 12:00:00 AM [facility] EST Diagnostic radiography of 08/04/2019 [facility] lumbar spine, combined 12:00:00 [facility] anteroposterior and lateral EST (procedure) Plain chest X-ray (procedure) 07/22/2019 [facility] 12:00:00 AM [facility] EST Plain chest X-ray (procedure) 07/22/2019 [facility] 12:00:00 AM [facility] EST Chest percussion therapy 07/21/2019 [facility] (regime/therapy) 12:00:00 AM [facility] EST Plain chest X-ray (procedure) 07/21/2019 [facility] 12:00:00 AM [facility] EST Chest percussion therapy 07/21/2019 [facility] (regime/therapy) 12:00:00 AM [facility] EST Plain chest X-ray (procedure) 07/21/2019 [facility] 12:00:00 AM [facility] EST Electrocardiographic procedure 07/20/2019 [facility] (procedure) 12:00:00 AM [facility] EST Plain chest X-ray (procedure) 07/20/2019 [facility] 12:00:00 AM [facility] EST Electrocardiographic procedure 07/20/2019 [facility] (procedure) 12:00:00 AM [facility] EST Plain chest X-ray (procedure) 07/20/2019 [facility] 12:00:00 AM [facility] EST Plain chest X-ray (procedure) 07/19/2019 [facility] 12:00:00 AM [facility] EST Plain chest X-ray (procedure) 07/19/2019 [facility] 12:00:00 AM [facility] EST Physical therapy procedure 07/16/2019 [facility] (regime/therapy) 12:00:00 AM [facility] EST Noninvasive positive pressure 07/16/2019 [facility] (procedure) 12:00:00 AM [facility] EST Continuous pulse oximetry 07/16/2019 [facility] (procedure) 12:00:00 AM [facility] EST Physical therapy procedure 07/16/2019 [facility] (regime/therapy) 12:00:00 AM [facility] EST Noninvasive positive pressure 07/16/2019 [facility] (procedure) 12:00:00 [facility] Continuous pulse oximetry 07/16/2019 [facility] (procedure) 12:00:00 AM [facility] EST Oxygen therapy (procedure) 07/15/2019 [facility] 12:00:00 AM [facility] EST Plain chest X-ray (procedure) 07/15/2019 [facility] 12:00:00 AM [facility] EST Continuous pulse oximetry 07/15/2019 [facility] (procedure) 12:00:00 AM [facility] EST Noninvasive positive pressure 07/15/2019 [facility] (procedure) 12:00:00 [facility] Noninvasive positive pressure 07/15/2019 [facility] (procedure) 12:00:00 [facility] EST Nebulizer therapy (procedure) 07/15/2019 [facility] 12:00:00 AM [facility] EST Nebulizer therapy (procedure) 07/15/2019 [facility] 12:00:00 AM [facility] EST Oxygen therapy (procedure) 07/15/2019 [facility] 12:00:00 AM [facility] EST Electrocardiographic procedure 07/15/2019 [facility] (procedure) 12:00:00 AM [facility] EST ASSISTANCE WITH RESPIRATORY 07/15/2019 [facility] VENTILATION, <24 HRS, CPAP 12:00:00 AM [facility] EST PERFORMANCE OF URINARY 07/15/2019 [facility] FILTRATION, <6 HRS/DAY 12:00:00 AM [facility] PERFORMANCE OF URINARY 07/15/2019 [facility] FILTRATION, <6 HRS/DAY 12:00:00 AM [facility] EST Oxygen therapy (procedure) 07/15/2019 [facility] 12:00:00 AM [facility] EST Plain chest X-ray (procedure) 07/15/2019 [facility] 12:00:00 AM [facility] EST Continuous pulse oximetry 07/15/2019 [facility] (procedure) 12:00:00 AM [facility] EST Noninvasive positive pressure 07/15/2019 [facility] (procedure) 12:00:00 [facility] Noninvasive positive pressure 07/15/2019 [facility] (procedure) 12:00:00 [facility] Nebulizer therapy (procedure) 07/15/2019 [facility] 12:00:00 AM [facility] EST Nebulizer therapy (procedure) 07/15/2019 [facility] 12:00:00 AM [facility] EST Oxygen therapy (procedure) 07/15/2019 [facility] 12:00:00 AM [facility] EST Electrocardiographic procedure 07/15/2019 [facility] (procedure) 12:00:00 AM [facility] EST Plain chest X-ray (procedure) 07/14/2019 [facility] 12:00:00 AM [facility] EST Plain chest X-ray (procedure) 07/14/2019 [facility] 12:00:00 AM [facility] EST Electrocardiographic procedure 07/03/2019 [facility] (procedure) 12:00:00 AM [facility] EST Plain chest X-ray (procedure) 07/02/2019 [facility] 12:00:00 AM [facility] EST Electrocardiographic procedure 07/02/2019 [facility] (procedure) 12:00:00 AM [facility] EST INJECTION, ONDANSETRON 07/02/2019 [facility] HYDROCHLORIDE, PER 1 MG 12:00:00 AM [facility] EST X-ray exam chest 1 view 07/02/2019 [facility] [place] 12:00:00 AM [facility] EST Electrocardiogram tracing 07/02/2019 [facility] [place] 12:00:00 AM [facility] EST Electrocardiogram tracing 07/02/2019 [facility] [place] 12:00:00 AM [facility] EST Assay of troponin qual 07/02/2019 [facility] 12:00:00 AM [facility] EST Assay of lipase 07/02/2019 [facility] 12:00:00 AM [facility] EST Reagent strip/blood glucose 07/02/2019 [facility] 12:00:00 AM [facility] EST Comprehen metabolic panel 07/02/2019 [facility] 12:00:00 AM [facility] EST Bl smear w/diff wbc count 07/02/2019 [facility] 12:00:00 AM [facility] EST Complete cbc automated 07/02/2019 [facility] 12:00:00 AM [facility] EST Hydrate iv infusion add-on 07/02/2019 [facility] 12:00:00 AM [facility] EST Ther/proph/diag inj iv push 07/02/2019 [facility] 12:00:00 AM [facility] EST Emergency dept visit 07/02/2019 [facility] 12:00:00 AM [facility] EST Electrocardiographic procedure 07/02/2019 [facility] (procedure) 12:00:00 AM [facility] EST Plain chest X-ray (procedure) 07/02/2019 [facility] 12:00:00 AM [facility] EST Electrocardiographic procedure 07/02/2019 [facility] (procedure) 12:00:00 AM [facility] EST XR humerus left 06/07/2019 [facility] 12:00:00 AM [facility] EST Fluoroscopy (procedure) 06/07/2019 [facility] 12:00:00 AM [facility] EST Oxygen therapy (procedure) 06/07/2019 [facility] 12:00:00 AM [facility] EST Plain chest X-ray (procedure) 06/07/2019 [facility] 12:00:00 AM [facility] EST Electrocardiographic procedure 06/07/2019 [facility] (procedure) 12:00:00 AM Hospital EST INJECTION, HEPARIN SODIUM, PER 06/07/2019 [facility] 1000 UNITS 12:00:00 AM Hospital EST INJECTION, HEPARIN SODIUM, PER 06/07/2019 [facility] 1000 UNITS 12:00:00 AM Hospital EST INJECTION, HEPARIN SODIUM, PER 06/07/2019 [facility] 1000 UNITS 12:00:00 AM Hospital EST INJECTION, LORAZEPAM, 2 MG 06/07/2019 [facility] 12:00:00 AM [facility] EST RINGERS LACTATE INFUSION 06/07/2019 [facility] 12:00:00 AM [facility] EST LOW OSMOLAR 300-399 mg/mi IOP 06/07/2019 [facility] 12:00:00 AM [facility] EST INJECTION, HEPARIN SODIUM, PER 06/07/2019 [facility] 1000 UNITS 12:00:00 AM Hospital EST INJECTION, HEPARIN SODIUM, PER 06/07/2019 [facility] 1000 UNITS 12:00:00 AM Hospital EST INJECTION, FENTANYL CITRATE, 06/07/2019 [facility] 0.1 MG 12:00:00 AM Hospital EST INJECTION, CEFAZOLIN SODIUM, 06/07/2019 [facility] 500MG 12:00:00 AM Hospital EST PARICALCITOL 06/07/2019 [facility] 12:00:00 AM [facility] EST ACETAMINOPHEN INJECTION 06/07/2019 [facility] 12:00:00 AM [facility] EST DRUGS UNCLASSIFIED INJECTION 06/07/2019 [facility] 12:00:00 AM [facility] EST DRUGS UNCLASSIFIED INJECTION 06/07/2019 [facility] 12:00:00 AM [facility] EST HOSPITAL OBSERVATION PER HR 06/07/2019 [facility] 12:00:00 AM [facility] EST X-ray exam of humerus 06/07/2019 [facility] 12:00:00 AM [facility] EST Fluoroscopy <1 hr phys/qhp 06/07/2019 [facility] 12:00:00 AM [facility] EST X-ray exam chest 1 view 06/07/2019 [facility] 12:00:00 AM [facility] EST Electrocardiogram tracing 06/07/2019 [facility] 12:00:00 AM [facility] EST Tissue exam by pathologist 06/07/2019 [facility] 12:00:00 AM [facility] EST Assay of troponin qual 06/07/2019 [facility] 12:00:00 AM [facility] EST Reagent strip/blood glucose 06/07/2019 [facility] 12:00:00 AM [facility] EST Comprehen metabolic panel 06/07/2019 [facility] 12:00:00 AM [facility] EST Smear gram stain 06/07/2019 [place] 12:00:00 AM [facility] EST Fungus isolation culture 06/07/2019 [facility] 12:00:00 AM [facility] EST Cultr bacteria except blood 06/07/2019 [facility] 12:00:00 AM [facility] EST Culture othr specimn aerobic 06/07/2019 [facility] 12:00:00 AM [facility] EST Mr-staph dna amp probe 06/07/2019 [facility] 12:00:00 AM [facility] EST Alexandra test indirect qual 06/07/2019 [facility] 12:00:00 AM [facility] EST Prothrombin time 06/07/2019 [place] 12:00:00 AM [facility] EST Bl smear w/diff wbc count 06/07/2019 [facility] 12:00:00 AM [facility] EST Complete cbc automated 06/07/2019 [facility] 12:00:00 AM [facility] EST Thromboplastin time partial 06/07/2019 [facility] 12:00:00 AM [facility] EST Ther/proph/diag inj iv push 06/07/2019 [facility] 12:00:00 AM [facility] EST Tx/pro/dx inj new drug addon 06/07/2019 [facility] 12:00:00 AM [facility] EST Emergency dept visit 06/07/2019 [facility] 12:00:00 AM [facility] EST Balo angiop ctr dialysis seg 06/07/2019 [facility] 12:00:00 AM [facility] EST 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/07/2019 [facility] 12:00:00 AM [facility] EST XR humerus left 06/07/2019 [facility] 12:00:00 AM [facility] EST Fluoroscopy (procedure) 06/07/2019 [facility] [place] 12:00:00 AM [facility] EST Oxygen therapy (procedure) 06/07/2019 [facility] 12:00:00 AM [facility] EST Plain chest X-ray (procedure) 06/07/2019 [facility] 12:00:00 AM [facility] EST Electrocardiographic procedure 06/07/2019 [facility] (procedure) 12:00:00 AM [facility] EST XR humerus left 06/07/2019 [facility] 12:00:00 AM [facility] EST Fluoroscopy (procedure) 06/07/2019 [facility] 12:00:00 AM [facility] EST Oxygen therapy (procedure) 06/07/2019 [facility] 12:00:00 AM [facility] EST Plain chest X-ray (procedure) 06/07/2019 [facility] 12:00:00 AM [facility] EST Electrocardiographic procedure 06/07/2019 [facility] (procedure) 12:00:00 AM [facility] EST Physical therapy procedure 05/24/2019 [facility] (regime/therapy) 12:00:00 AM [facility] EST Physical therapy procedure 05/24/2019 [facility] (regime/therapy) 12:00:00 AM [facility] EST Physical therapy procedure 05/24/2019 [facility] (regime/therapy) 12:00:00 AM Hospital EST Cerebr Seizure 16/>CH 24HRS 05/23/2019 [facility] 12:00:00 AM [facility] EDT Physical therapy procedure 05/23/2019 [facility] [place] (regime/therapy) 12:00:00 AM Hospital EDT Computed tomography of head 05/23/2019 [facility] without contrast 12:00:00 AM Hospital EDT Cerebr Seizure 16/>CH 24HRS 05/23/2019 [facility] 12:00:00 AM [facility] EDT Physical therapy procedure 05/23/2019 [facility] (regime/therapy) 12:00:00 AM Hospital EDT Computed tomography of head 05/23/2019 [facility] without contrast 12:00:00 AM Hospital EDT Cerebr Seizure 16/>CH 24HRS 05/23/2019 [facility] 12:00:00 AM [facility] EDT Physical therapy procedure 05/23/2019 [facility] (regime/therapy) 12:00:00 AM Hospital EDT Computed tomography of head 05/23/2019 [facility] without contrast 12:00:00 AM Hospital EDT Cerebr Seizure 16/>CH 24HRS 05/23/2019 [facility] 12:00:00 AM [facility] EDT Physical therapy procedure 05/23/2019 [facility] [place] (regime/therapy) 12:00:00 AM Hospital EDT Computed tomography of head 05/23/2019 [facility] without contrast 12:00:00 AM Hospital EDT PERFORMANCE OF URINARY 05/22/2019 [facility] FILTRATION, <6 HRS/DAY 12:00:00 AM [facility] EDT Cerebr Seizure 16/>CH =/<12HRS 05/22/2019 [facility] 12:00:00 AM [facility] EDT Respiratory Referral 05/22/2019 [place] 12:00:00 AM [facility] EDT Plain chest X-ray (procedure) 05/22/2019 [facility] 12:00:00 AM [facility] EDT Electrocardiographic procedure 05/22/2019 [facility] (procedure) 12:00:00 AM Hospital EDT Computed tomography of head 05/22/2019 [facility] without contrast 12:00:00 AM Hospital EDT PERFORMANCE OF URINARY 05/22/2019 [facility] FILTRATION, <6 HRS/DAY 12:00:00 AM [facility] EDT Cerebr Seizure 16/>CH =/<12HRS 05/22/2019 [facility] 12:00:00 AM [facility] EDT Respiratory Referral 05/22/2019 [place] 12:00:00 AM [facility] EDT Plain chest X-ray (procedure) 05/22/2019 [facility] 12:00:00 AM [facility] EDT Electrocardiographic procedure 05/22/2019 [facility] (procedure) 12:00:00 AM Hospital EDT Computed tomography of head 05/22/2019 [facility] without contrast 12:00:00 AM Hospital EDT Cerebr Seizure 16/>CH =/<12HRS 05/22/2019 [facility] 12:00:00 AM Hospital EDT Respiratory Referral 05/22/2019 [place] 12:00:00 AM [facility] EDT Plain chest X-ray (procedure) 05/22/2019 [facility] 12:00:00 AM [facility] EDT Electrocardiographic procedure 05/22/2019 [facility] (procedure) 12:00:00 AM Hospital EDT Computed tomography of head 05/22/2019 [facility] without contrast 12:00:00 AM Hospital EDT Cerebr Seizure 16/>CH =/<12HRS 05/22/2019 [facility] 12:00:00 AM [facility] EDT Respiratory Referral 05/22/2019 [place] [facility] [place] 12:00:00 AM [facility] EDT Plain chest X-ray (procedure) 05/22/2019 [facility] 12:00:00 AM [facility] EDT Electrocardiographic procedure 05/22/2019 [facility] (procedure) 12:00:00 AM Hospital EDT Computed tomography of head 05/22/2019 [facility] without contrast 12:00:00 AM Hospital EDT Plain chest X-ray (procedure) 05/19/2019 [facility] 12:00:00 AM [facility] EDT Computed tomography of head 05/19/2019 [facility] without contrast 12:00:00 AM Hospital EDT Electrocardiographic procedure 05/19/2019 [facility] (procedure) 12:00:[address] head/brain w/o dye 05/19/2019 [facility] 12:00:00 AM [facility] EDT X-ray exam chest 1 view 05/19/2019 [facility] [place] 12:00:00 AM [facility] EDT Electrocardiogram tracing 05/19/2019 [facility] 12:00:00 AM [facility] EDT Assay of troponin qual 05/19/2019 [facility] 12:00:00 AM [facility] EDT Reagent strip/blood glucose 05/19/2019 [facility] 12:00:00 AM [facility] EDT Metabolic panel total ca 05/19/2019 [facility] 12:00:00 AM [facility] EDT Mr-staph dna amp probe 05/19/2019 [facility] 12:00:00 AM [facility] EDT Prothrombin time 05/19/2019 [place] 12:00:00 AM [facility] EDT Bl smear w/diff wbc count 05/19/2019 [facility] 12:00:00 AM [facility] EDT Complete cbc automated 05/19/2019 [facility] 12:00:00 AM [facility] EDT Thromboplastin time partial 05/19/2019 [facility] 12:00:00 AM [facility] EDT Emergency dept visit 05/19/2019 [place] 12:00:00 AM [facility] EDT Plain chest X-ray (procedure) 05/19/2019 [facility] 12:00:00 AM [facility] EDT Computed tomography of head 05/19/2019 [facility] without contrast 12:00:00 AM Hospital EDT Electrocardiographic procedure 05/19/2019 [facility] (procedure) 12:00:[address] head/brain w/o dye 05/19/2019 [facility] 12:00:00 AM [facility] EDT X-ray exam chest 1 view 05/19/2019 [facility] [place] 12:00:00 AM [facility] EDT Electrocardiogram tracing 05/19/2019 [facility] [place] 12:00:00 AM [facility] EDT Assay of troponin qual 05/19/2019 [facility] 12:00:00 AM [facility] EDT Reagent strip/blood glucose 05/19/2019 [facility] 12:00:00 AM [facility] EDT Metabolic panel total ca 05/19/2019 [facility] [place] 12:00:00 AM [facility] EDT Mr-stap dna amp probe 05/19/2019 [facility] 12:00:00 AM Hospital EDT Prothrombin time 05/19/2019 [place] 12:00:00 AM [facility] EDT Bl smear w/diff wbc count 05/19/2019 [facility] 12:00:00 AM [facility] EDT Complete cbc automated 05/19/2019 [facility] 12:00:00 AM Hospital EDT Thromboplastin time partial 05/19/2019 [facility] 12:00:00 AM Hospital EDT Emergency dept visit 05/19/2019 [place] 12:00:00 AM [facility] EDT Plain chest X-ray (procedure) 05/19/2019 [facility] 12:00:00 AM Hospital EDT Computed tomography of head 05/19/2019 [facility] without contrast 12:00:00 AM Hospital EDT Electrocardiographic procedure 05/19/2019 [facility] (procedure) 12:00:00 AM Hospital EDT Plain chest X-ray (procedure) 05/19/2019 [facility] 12:00:00 AM Hospital EDT Computed tomography of head 05/19/2019 [facility] without contrast 12:00:00 AM Hospital EDT Electrocardiographic procedure 05/19/2019 [facility] (procedure) 12:00:[address] head/brain w/o dye 05/19/2019 [facility] 12:00:00 AM [facility] EDT X-ray exam chest 1 view 05/19/2019 [facility] [place] 12:00:00 AM [facility] EDT Electrocardiogram tracing 05/19/2019 [facility] [place] 12:00:00 AM [facility] EDT Assay of troponin qual 05/19/2019 [facility] 12:00:00 AM Hospital EDT Reagent strip/blood glucose 05/19/2019 [facility] 12:00:00 AM [facility] EDT Metabolic panel total ca 05/19/2019 [facility] [place] 12:00:00 AM [facility] EDT Mr-staph dna amp probe 05/19/2019 [facility] 12:00:00 AM Hospital EDT Prothrombin time 05/19/2019 [place] 12:00:00 AM [facility] EDT Bl smear w/diff wbc count 05/19/2019 [facility] 12:00:00 AM [facility] EDT Complete cbc automated 05/19/2019 [facility] 12:00:00 AM Hospital EDT Thromboplastin time partial 05/19/2019 [facility] 12:00:00 AM Hospital EDT Emergency dept visit 05/19/2019 [place] 12:00:00 AM [facility] EDT Emergency dept visit 05/07/2019 [place] 12:00:00 AM [facility] EDT Emergency dept visit 05/07/2019 [place] 12:00:00 AM [facility] EDT Oxygen therapy (procedure) 04/19/2019 [facility] 12:00:00 AM [facility] EDT Incentive spirometry 04/19/2019 [place] (regime/therapy) 12:00:00 AM Hospital EDT Electrocardiographic procedure 04/19/2019 [facility] (procedure) 12:00:00 AM Hospital EDT Nebulizer therapy (procedure) 04/19/2019 [facility] 12:00:00 AM [facility] EDT Electrocardiographic procedure 04/19/2019 [facility] (procedure) 12:00:00 AM Hospital EDT Plain chest X-ray (procedure) 04/19/2019 [facility] 12:00:00 AM [facility] EDT Oxygen therapy (procedure) 04/19/2019 [facility] 12:00:00 AM [facility] EDT Incentive spirometry 04/19/2019 [place] (regime/therapy) 12:00:00 AM Hospital EDT Electrocardiographic procedure 04/19/2019 [facility] (procedure) 12:00:00 AM Hospital EDT Nebulizer therapy (procedure) 04/19/2019 [facility] 12:00:00 AM Hospital EDT Electrocardiographic procedure 04/19/2019 [facility] (procedure) 12:00:00 AM Hospital EDT Plain chest X-ray (procedure) 04/19/2019 [facility] 12:00:00 AM Hospital EDT Ultrasound scan of upper limb 03/09/2019 [facility] vessels (procedure) 12:00:00 AM Hospital EDT Plain chest X-ray (procedure) 03/08/2019 [facility] 12:00:00 AM Hospital EDT Oxygen therapy (procedure) 03/08/2019 [facility] 12:00:00 AM [facility] EDT Radiography of shoulder 03/04/2019 [facility] [place] (procedure) 12:00:00 AM Hospital EDT Results ID Date Data Source [id number] 04/27/2020 05:54:00 PM EDT [facility] Name Value Range Interpretation Description Data Sup porting Code Source(s) Document(s ) 2018 Novel [facility] Coronavirus RNA Interpretation Unspecified Specimen Qualitative YAZMIN Probe Detection This lab was ordered by [facility] and reported by [facility]. ID Date Data Source [id number] 04/23/2020 06:06:00 AM EDT [facility] Value Range Interpretation Description Data Sup porting Code Source(s) Document(s ) Basophils/100 0.7 % [facility] leukocytes in Hospital Blood by Automated count ID Date Data Source [id number] 04/23/2020 06:06:00 AM EDT [facility] Value Range Interpretation Description Data Sup porting Code Source(s) Document(s ) Eosinophils/100 4.3 % [facility] leukocytes in [facility] Blood by Automated count ID Date Data Source [id number] 04/23/2020 06:06:00 AM EDT [facility] Value Range Interpretation Description Data Sup porting Code Source(s) Document(s ) Monocytes/100 11.4 % [facility] leukocytes in Hospital Blood by Automated count ID Date Data Source [id number] 04/23/2020 06:06:00 AM EDT [facility] Value Range Interpretation Description Data Sup porting Code Source(s) Document(s ) Lymphocytes/100 9.3 % [facility] leukocytes in Hospital Blood by Automated count ID Date Data Source [id number] 04/23/2020 06:06:00 AM EDT [facility] Value Range Interpretation Description Data Sup porting Code Source(s) Document(s ) Neutrophils/10 73.9 % [facility] 0 leukocytes Hospital in Blood by Automated count ID Date Data Source [id number] 04/23/2020 06:06:00 AM EDT [facility] Value Range Interpretation Description Data Sup porting Code Source(s) Document(s ) Platelet mean 13.2 fL [facility] volume [facility] [Entitic volume] in Blood by Automated count ID Date Data Source [id number] 04/23/2020 06:06:00 AM EDT [facility] Value Range Interpretation Description Data Sup porting Code Source(s) Document(s ) Platelets 62 [facility] [#/volume] in 10*3/uL Hospital Blood by Automated count ID Date Data Source [id number] 04/23/2020 06:06:00 AM EDT [facility] Value Range Interpretation Description Data Sup porting Code Source(s) Document(s ) Erythrocyte 21.2 % [facility] distribution Hospital width [Ratio] by Automated count ID Date Data Source [id number] 04/23/2020 06:06:00 AM EDT [facility] Value Range Interpretation Description Data Sup porting Code Source(s) Document(s ) Erythrocyte mean 31.1 [facility] corpuscular g/dL Hospital hemoglobin concentration [Mass/volume] by Automated count ID Date Data Source [id number] 04/23/2020 06:06:00 AM EDT [facility] Value Range Interpretation Description Data Sup porting Code Source(s) Document(s ) Erythrocyte 32.3 pg [facility] corpuscular hemoglobin [Entitic mass] by Automated count ID Date Data Source [id number] 04/23/2020 06:06:00 AM EDT [facility] Value Range Interpretation Description Data Sup porting Code Source(s) Document(s ) Erythrocyte 104.1 fL [facility] mean Hospital corpuscular volume [Entitic volume] by Automated count ID Date Data Source [id number] 04/23/2020 06:06:00 AM EDT [facility] Value Range Interpretation Description Data Sup porting Code Source(s) Document(s ) Hematocrit 28.0 % [facility] [Volume Hospital Fraction] of Blood by Automated count ID Date Data Source [id number] 04/23/2020 06:06:00 AM [facility] Value Range Interpretation Description Data Sup porting Code Source(s) Document(s ) Hemoglobin 8.7 g/dL [facility] [Mass/volume] Hospital in Blood ID Date Data Source [id number] 04/23/2020 06:06:00 AM EDT [facility] Value Range Interpretation Description Data Sup porting Code Source(s) Document(s ) Erythrocytes 2.69 [facility] [#/volume] in 10*6/uL Hospital Blood by Automated count ID Date Data Source [id number] 04/23/2020 06:06:00 AM EDT [facility] Value Range Interpretation Description Data Sup porting Code Source(s) Document(s ) Leukocytes 5.4 [facility] [#/volume] in 10*3/uL Hospital Blood by Automated count ID Date Data Source [id number] 04/23/2020 06:06:00 AM EDT [facility] Name Value Range Interpretation Description Data Sup porting Code Source(s) Document(s ) Phosphate 3.9 mg/dL [facility] [Mass/volume] Hospital in Serum or Plasma ID Date Data Source [id number] 04/23/2020 06:06:00 AM EDT [facility] Name Value Range Interpretation Description Data Sup porting Code Source(s) Document(s ) Magnesium 2.0 mg/dL [facility] [Mass/volume] Hospital in Serum or Plasma ID Date Data Source [id number] 04/23/2020 06:06:00 AM EDT [facility] Name Value Range Interpretation Description Data Sup porting Code Source(s) Document(s ) Aspartate 17 U/L [facility] amin[facility] [Enzymatic Hospital activity/volume] in Serum or Plasma ID Date Data Source [id number] 04/23/2020 06:06:00 AM EDT [facility] Name Value Range Interpretation Description Data Sup porting Code Source(s) Document(s ) Alanine 9 U/L [facility] aminotransferase [facility] [Enzymatic activity/volume] in Serum or Plasma ID Date Data Source [id number] 04/23/2020 06:06:00 AM EDT [facility] Name Value Range Interpretation Description Data Sup porting Code Source(s) Document(s ) Alkaline 89 U/L [facility] phosphatase [facility] [Enzymatic activity/volume ] in Serum or Plasma ID Date Data Source [id number] 04/23/2020 06:06:00 AM EDT [facility] Name Value Range Interpretation Description Data Sup porting Code Source(s) Document(s ) Bilirubin.t 0.7 mg/dL [facility] [Mass/volum e] in Serum or Plasma ID Date Data Source [id number] 04/23/2020 06:06:00 AM EDT [facility] Name Value Range Interpretation Code Description Data Sharon rce(s) Supporting Document(s ) Albumin/Glob 1.3 [facility] ulin [Mass [facility] Ratio] in Serum or Plasma ID Date Data Source [id number] 04/23/2020 06:06:00 AM EDT [facility] Name Value Range Interpretation Description Data Sup porting Code Source(s) Document(s ) Albumin 3.2 g/dL [facility] [Mass[facility]volume [facility] ] in Serum or Plasma ID Date Data Source [id number] 04/23/2020 06:06:00 AM EDT [facility] Name Value Range Interpretation Description Data Sup porting Code Source(s) Document(s ) Protein 5.6 g/dL [facility] [Mass[facility] ] in Serum or Plasma ID Date Data Source [id number] 04/23/2020 06:06:00 AM EDT [facility] Name Value Range Interpretation Description Data Sup porting Code Source(s) Document(s ) Calcium 7.8 mg/dL [facility] [Mass[facility] ] in Serum or Plasma ID Date Data Source [id number] 04/23/2020 06:06:00 AM EDT [facility] Name Value Range Interpretation Code Description Data Sharon rce(s) Supporting Document(s ) Urea 5.9 [facility] nitrogen/[facility] atinine [Mass Ratio] in Serum or Plasma ID Date Data Source [id number] 04/23/2020 06:06:00 AM EDT [facility] Name Value Range Interpretation Description Data Sup porting Code Source(s) Document(s ) Creatinine 3.9 mg/dL [facility] [Mass/volume] [facility] in Serum or Plasma ID Date Data Source [id number] 04/23/2020 06:06:00 AM EDT [facility] Name Value Range Interpretation Description Data Sup porting Code Source(s) Document(s ) Urea 23 mg/dL [facility] nitrogen [facility] [Mass/volume ] in Serum or Plasma ID Date Data Source [id number] 04/23/2020 06:06:00 AM EDT [facility] Name Value Range Interpretation Code Description Data Sharon rce(s) Supporting Document(s ) Anion gap in 12 [facility] Serum or [facility] Plasma ID Date Data Source [id number] 04/23/2020 06:06:00 AM EDT [facility] Name Value Range Interpretation Description Data Sup porting Code Source(s) Document(s ) Carbon 31 mmol/L [facility] dioxide, Hospital total [Moles/volu me] in Serum or Plasma ID Date Data Source [id number] 04/23/2020 06:06:00 AM EDT [facility] Name Value Range Interpretation Description Data Sup porting Code Source(s) Document(s ) Chloride 97 mmol/L [facility] [Moles/volum Hospital e] in Serum or Plasma ID Date Data Source [id number] 04/23/2020 06:06:00 AM EDT [facility] Name Value Range Interpretation Description Data Sup porting Code Source(s) Document(s ) Potassium 3.8 [facility] [Moles/volume mmol/L Hospital ] in Serum or Plasma ID Date Data Source [id number] 04/23/2020 06:06:00 AM EDT [facility] Name Value Range Interpretation Description Data Sup porting Code Source(s) Document(s ) Sodium 136 mmol/L [facility] [Moles/volu Hospital me] in Serum or Plasma ID Date Data Source [id number] 04/23/2020 06:06:00 AM EDT [facility] Name Value Range Interpretation Description Data Sup porting Code Source(s) Document(s ) Glucose 74 mg/dL [facility] [[facility] ] in Serum or Plasma ID Date Data Source [id number] 04/23/2020 06:06:00 AM EDT [facility] Name Value Range Interpretation Code Description Data Supporting Source(s) Document(s ) NUCLEATED RBCS 0.0 % [facility] (AUTO Hospital DIFF%)DIS ID Date Data Source [id number] 04/23/2020 06:06:00 AM EDT [facility] Value Range Interpretation Description Data Sup porting Code Source(s) Document(s ) Differential AUTOMATED [facility] cell count [facility] method - Blood ID Date Data Source [id number] 04/23/2020 06:06:00 AM EDT [facility] Name Value Range Interpretation Description Data Sup porting Code Source(s) Document(s ) Immature 0.02 [facility] granulocytes 10*3/uL Hospital [#/volume] in Blood by Automated count ID Date Data Source [id number] 04/23/2020 06:06:00 AM EDT [facility] Value Range Interpretation Description Data Sup porting Code Source(s) Document(s ) Basophils 0.04 [facility] [#/volume] in 10*3/uL Hospital Blood by Automated count ID Date Data Source [id number] 04/23/2020 06:06:00 AM EDT [facility] Name Value Range Interpretation Description Data Sup porting Code Source(s) Document(s ) Eosinophils 0.23 [facility] [#/volume] in 10*3/uL Hospital Blood by Automated count ID Date Data Source [id number] 04/23/2020 06:06:00 AM EDT [facility] Name Value Range Interpretation Description Data Sup porting Code Source(s) Document(s ) Monocytes 0.61 [facility] [#/volume] in 10*3/uL Hospital Blood by Automated count ID Date Data Source [id number] 04/23/2020 06:06:00 AM EDT [facility] Name Value Range Interpretation Description Data Sup porting Code Source(s) Document(s ) Lymphocytes 0.50 [facility] [#/volume] in 10*3/uL Hospital Blood by Automated count ID Date Data Source [id number] 04/23/2020 06:06:00 AM EDT [facility] Name Value Range Interpretation Description Data Sup porting Code Source(s) Document(s ) Neutrophils 3.97 [facility] [#/volume] in 10*3/uL [facility] Blood by Automated count ID Date Data Source [id number] 04/23/2020 06:06:00 AM EDT [facility] Name Value Range Interpretation Description Data Sup porting Code Source(s) Document(s ) Nucleated 0.0 % [facility] erythrocytes/10 [facility] 0 leukocytes [Ratio] in Blood by Automated count ID Date Data Source [id number] 04/23/2020 06:06:00 AM [facility] Value Range Interpretation Description Data Sup porting Code Source(s) Document(s ) Immature 0.4 % [facility] granulocytes/10 [facility] 0 leukocytes in Blood by Automated count ID Date Data Source [id number] 04/23/2020 05:45:00 AM [facility] [employer] Operator:MIRIAM NAVARRO Name Value Range Interpretation Description Data Sup porting Code Source(s) Document(s ) Glucose 93 mg/dL [facility] [Mass/volume] Hospital in Capillary blood by Glucometer ID Date Data Source [id number] 04/22/2020 10:45:00 AM [facility] Name Value Range Interpretation Description Data Sup porting Code Source(s) Document(s ) Bacteria No growth [facility] identified in Hospital Blood by Culture ID Date Data Source [id number] 04/22/2020 10:45:00 AM [facility] TEST PERFORMED BY [employer] SENSIT[employer] CHEMILUMINESCENCE METHOD. Name Value Range Interpretation Description Data Sup porting Code Source(s) Document(s ) Troponin 0.36 [facility] I.cardiac ng/mL Hospital [Mass/volume ] in Serum or Plasma ID Date Data Source [id number] 04/22/2020 10:45:00 AM [facility] Name Value Range Interpretation Description Data Sup porting Code Source(s) Document(s ) Lactate 0.5 [facility] [Moles/volum mmol/L Hospital e] in Serum or Plasma ID Date Data Source [id number] 04/22/2020 10:44:00 AM [facility] Name Value Range Interpretation Description Data Sup porting Code Source(s) Document(s ) Bacteria No growth [facility] identified in Hospital Urine by Culture ID Date Data Source [id number] 04/22/2020 10:44:00 AM [facility] Name Value Range Interpretation Description Data Sup porting Code Source(s) Document(s ) Urate crystals 1+ [facility] amorphous [facility] [Presence] in Urine sediment by Light microscopy ID Date Data Source [id number] 04/22/2020 10:44:00 AM [facility] Name Value Range Interpretation Description Data Sup porting Code Source(s) Document(s ) Bacteria OCCASIONAL [facility] [#/area] in Hospital Urine sediment by Microscopy high power field ID Date Data Source [id number] 04/22/2020 10:44:00 AM [facility] Value Range Interpretation Description Data Sup porting Code Source(s) Document(s ) Erythrocytes 0-3 [facility] [#/area] in /[HPF] Hospital Urine sediment by Microscopy high power field ID Date Data Source [id number] 04/22/2020 10:44:00 AM EDT [facility] Name Value Range Interpretation Description Data Sup porting Code Source(s) Document(s ) Leukocytes 5-10 [facility] [#/area] in /[HPF] Hospital Urine sediment by Microscopy high power field ID Date Data Source [id number] 04/22/2020 10:44:00 AM EDT [facility] Value Range Interpretation Code Description Data Supporting Source(s) Document(s ) Leukocyte 3+ [facility] esterase Hospital [Presence] in Urine by Test strip ID Date Data Source [id number] 04/[facility] Description Data Sup porting Code Source(s) Document(s ) URINE NEGATIVE [facility] Hospital ID Date Data Source [id number] 04/22/2020 10:44:00 AM EDT [facility] Value Range Interpretation Description Data Sup porting Code Source(s) Document(s ) Erythrocytes 2+ [facility] [#/volume] in Hospital Urine by Test strip ID Date Data Source [id number] 04/22/2020 10:44:00 AM EDT [facility] Name Value Range Interpretation Code Description Data Sharon rce(s) Supporting Document(s ) Bilirubin. NEGATIVE [facility] total [facility] [Presence] in Urine by Test strip ID Date Data Source [id number] 04/22/2020 [facility] Description Data Sup porting Code Source(s) Document(s ) Urobilinogen 0.2 [facility] [Units/volume] mg/dL Hospital in Urine by Test strip ID Date Data Source [id number] 04/22/2020 10:44:00 AM EDT [facility] Name Value Range Interpretation Description Data Sup porting Code Source(s) Document(s ) Ketones NEGATIVE [facility] [Mass/volume Hospital ] in Urine by Test strip ID Date Data Source [id number] 04/22/2020 10:44:00 AM EDT [facility] Name Value Range Interpretation Description Data Sup porting Code Source(s) Document(s ) Glucose NEGATIVE [facility] [Mass/volume Hospital ] in Urine by Test strip ID Date Data Source [id number] 04/22/2020 10:44:00 AM EDT [facility] Name Value Range Interpretation Code Description Data Sharon rce(s) Supporting Document(s ) Protein 3+ [facility] [Presence] [facility] in Urine by Test strip ID Date Data Source [id number] 04/22/2020 10:44:00 AM EDT [facility] Name Value Range Interpretation Code Description Data Sharon rce(s) Supporting Document(s ) pH of Urine 7.5 [facility] by Test Hospital strip ID Date Data Source [id number] 04/22/2020 10:44:00 AM EDT [facility] Value Range Interpretation Code Description Data Supporting Source(s) Document(s ) Specific 1.011 [facility] gravity of Hospital Urine by Test strip ID Date Data Source [id number] 04/22/2020 10:44:00 AM EDT [facility] Name Value Range Interpretation Description Data Sup porting Code Source(s) Document(s ) Clarity in Urine CLOUDY [facility] by Refractometry [facility] automated ID Date Data Source [id number] 04/22/2020 10:44:00 AM EDT [facility] Name Value Range Interpretation Code Description Data Sharon rce(s) Supporting Document(s ) Color of YELLOW [facility] Urine Hospital ID Date Data Source [id number] 04/21/2020 06:19:00 PM EDT [facility] Name Value Range Interpretation Code Description Data Sharon rce(s) Supporting Document(s ) Lipase 14 U/L [facility] [Enzymatic Hospital activity/vo lume] in Serum or Plasma ID Date Data Source [id number] 04/21/2020 06:19:00 PM EDT [facility] Name Value Range Interpretation Description Data Sup porting Code Source(s) Document(s ) Bilirubin.d 0.4 mg/dL [facility] [Mass/volum e] in Serum or Plasma ID Date Data Source [id number] 04/21/2020 06:19:00 PM EDT [facility] Name Value Range Interpretation Code Description Data Sharon rce(s) Supporting Document(s ) Cells 100 [facility] Hospital Total [#] in Blood ID Date Data Source [id number] 04/21/2020 06:19:00 PM EDT [facility] PLT ESTIMATE DECREASED Name Value Range Interpretation Description Data Sup porting Code Source(s) Document(s ) PLATELET PRESENT [facility] Hospital ID Date Data Source [id number] 04/21/2020 06:19:00 PM EDT [facility] Name Value Range Interpretation Code Description Data Sharon rce(s) Supporting Document(s ) OVALOCYTES OCC [facility] ID Date Data Source [id number] 04/21/2020 06:19:00 PM EDT [facility] Name Value Range Interpretation Code Description Data Supporting Source(s) Document(s ) POLYCHROMASIA [facility] ID Date Data Source [id number] 04/21/2020 06:19:00 PM EDT [facility] Name Value Range Interpretation Code Description Data Sharon rce(s) Supporting Document(s ) MACROCYTOSIS OCC [facility] ID Date Data Source [id number] 04/21/2020 06:19:00 PM EDT [facility] Value Range Interpretation Description Data Sup porting Code Source(s) Document(s ) POIKILOCYTOSIS OCC [facility] ID Date Data Source [id number] 04/21/2020 06:19:00 PM EDT [facility] Value Range Interpretation Code Description Data Sharon rce(s) Supporting Document(s ) ANISOCYTOSIS 2+ [facility] ID Date Data Source [id number] 04/21/2020 06:19:00 PM EDT [facility] Value Range Interpretation Description Data Sup porting Code Source(s) Document(s ) Basophils 0.06 [facility] [#/volume] in 10*3/uL Hospital Blood by Manual count ID Date Data Source [id number] 04/21/2020 06:19:00 PM EDT [facility] Value Range Interpretation Description Data Sup porting Code Source(s) Document(s ) Eosinophils 0.06 [facility] [#/volume] in 10*3/uL Hospital Blood by Manual count ID Date Data Source [id number] 04/21/2020 06:19:00 PM EDT [facility] Name Value Range Interpretation Description Data Sup porting Code Source(s) Document(s ) Monocytes 0.70 [facility] [#/volume] in 10*3/uL Hospital Blood by Manual count ID Date Data Source [id number] 04/21/2020 06:19:00 PM EDT [facility] Name Value Range Interpretation Description Data Sup porting Code Source(s) Document(s ) Lymphocytes 0.45 [facility] [#/volume] in 10*3/uL Hospital Blood by Manual count ID Date Data Source [id number] 04/21/2020 06:19:00 PM EDT [facility] Name Value Range Interpretation Description Data Sup porting Code Source(s) Document(s ) Neutrophils 5.06 [facility] [#/volume] in 10*3/uL Hospital Blood by Manual count ID Date Data Source [id number] 04/21/2020 06:19:00 PM EDT [facility] Value Range Interpretation Description Data Sup porting Code Source(s) Document(s ) Basophils/100 1 % [facility] leukocytes in Hospital Blood by Manual count ID Date Data Source [id number] 04/21/2020 06:19:00 PM EDT [facility] Value Range Interpretation Description Data Sup porting Code Source(s) Document(s ) Eosinophils/100 1 % [facility] leukocytes in Hospital Blood by Manual count ID Date Data Source [id number] 04/21/2020 06:19:00 PM EDT [facility] Value Range Interpretation Description Data Sup porting Code Source(s) Document(s ) Monocytes/100 11 % [facility] leukocytes in Hospital Blood by Manual count ID Date Data Source [id number] 04/21/2020 06:19:00 PM EDT [facility] Value Range Interpretation Description Data Sup porting Code Source(s) Document(s ) Lymphocytes/100 7 % [facility] leukocytes in Hospital Blood by Manual count ID Date Data Source [id number] 04/21/2020 06:19:00 PM EDT [facility] Value Range Interpretation Description Data Sup porting Code Source(s) Document(s ) Neutrophils/100 79 % [facility] leukocytes in Hospital Blood by Manual count ID Date Data Source [id number] 04/17/2020 12:48:00 PM EDT [facility] Name Value Range Interpretation Description Data Sup porting Code Source(s) Document(s ) 2019 Novel [facility] Coronavirus RNA Interpretation Unspecified Specimen Qualitative YAZMIN Probe Detection This lab was ordered by [facility] and reported by [facility]. ID Date Data Source [id number] 04/08/2020 05:08:00 PM EDT [facility] Name Value Range Interpretation Description Data Sup porting Code Source(s) Document(s ) SARS [facility] coronavirus 2 RNA This lab was ordered by [facility] and reported by [facility]. ID Date Data Source [id number] 04/04/2020 02:01:00 PM EDT [facility] Name Value Range Interpretation Description Data Sup porting Code Source(s) Document(s ) 2019 Novel [facility] Coronavirus RNA Interpretation Unspecified Specimen Qualitative YAZMIN Probe Detection This lab was ordered by [facility] and reported by [facility]. ID Date Data Source [id number] 03/31/2020 10:01:00 PM EDT [facility] Name Value Range Interpretation Description Data Sup porting Code Source(s) Document(s ) Lactate 0.5 [facility] [Moles/volum mmol/L Hospital e] in Serum or Plasma ID Date Data Source [id number] 03/31/2020 08:49:00 PM EDT [facility] Name Value Range Interpretation Description Data Sup porting Code Source(s) Document(s ) IONIZED 1.17 [facility] CALCIUM mmol/L Hospital ID Date Data Source [id number] 03/31/2020 08:49:00 PM EDT [facility] Name Value Range Interpretation Description Data Sup porting Code Source(s) Document(s ) LACTIC ACID 0.6 mmol/L [facility] (ABG) [facility] ID Date Data Source [id number] 03/31/2020 08:49:00 PM EDT [facility] Name Value Range Interpretation Code Description Data Supporting Source(s) Document(s ) METHEMOGLOBIN 0.3 % [facility] ID Date Data Source [id number] 03/31/2020 08:49:00 PM EDT [facility] Value Range Interpretation Description Data Sup porting Code Source(s) Document(s ) CARBOXYHEMOGLOBIN 1.4 % [facility] ID Date Data Source [id number] 03/31/2020 08:49:00 PM EDT [facility] Value Range Interpretation Code Description Data Sharon rce(s) Supporting Document(s ) ABG TEMP 98.0 [facility] ID Date Data Source [id number] 03/31/2020 08:49:00 PM EDT [facility] Value Range Interpretation Code Description Data Sharon rce(s) Supporting Document(s ) FIO2 28 % [facility] ID Date Data Source [id number] 03/31/2020 08:49:00 PM EDT [facility] Value Range Interpretation Code Description Data Sharon rce(s) Supporting Document(s ) ABG BE -0.4 mmol/L [facility] ID Date Data Source [id number] 03/31/2020 08:49:00 PM EDT [facility] Value Range Interpretation Code Description Data Sharon rce(s) Supporting Document(s ) ABG O2SAT 93 % [facility] ID Date Data Source [id number] 03/31/2020 08:49:00 PM EDT [facility] Value Range Interpretation Code Description Data Sharon rce(s) Supporting Document(s ) ABG HCO3 26 mmol/L [facility] ID Date Data Source [id number] 03/31/2020 08:49:00 PM EDT [facility] Value Range Interpretation Code Description Data Sharon rce(s) Supporting Document(s ) ABG PO2 76 mm[Hg] [facility] ID Date Data Source [id number] 03/31/2020 08:49:00 PM EDT [facility] Value Range Interpretation Code Description Data Sharon rce(s) Supporting Document(s ) ABG PCO2 50 mm[Hg] [facility] ID Date Data Source [id number] 03/31/2020 08:49:00 PM EDT [facility] Name Value Range Interpretation Code Description Data Sharon rce(s) Supporting Document(s ) ABG PH 7.33 [facility] ID Date Data Source [id number] 03/31/2020 08:49:00 PM EDT [facility] Value Range Interpretation Code Description Data Sharon rce(s) Supporting Document(s ) ABG MODE 2LPM/NC [facility] 28% Hospital ID Date Data Source [id number] 03/31/2020 08:49:00 PM EDT [facility] Value Range Interpretation Code Description Data Supporting Source(s) Document(s ) ABG SOURCE ARTERIAL [facility] ID Date Data Source [id number] 03/31/2020 08:49:00 PM EDT [facility] Value Range Interpretation Code Description Data Sharon rce(s) Supporting Document(s ) AXVIER TEST POSITIVE [facility] ID Date Data Source [id number] 03/31/2020 08:49:00 PM EDT [facility] Value Range Interpretation Description Data Sup porting Code Source(s) Document(s ) IONIZED 1.17 [facility] CALCIUM mmol/L Hospital ID Date Data Source [id number] 03/31/2020 08:49:00 PM EDT [facility] Value Range Interpretation Description Data Sup porting Code Source(s) Document(s ) LACTIC ACID 0.6 mmol/L [facility] ([facility] ID Date Data Source [id number] 03/31/2020 08:49:00 PM EDT [facility] Value Range Interpretation Code Description Data Supporting Source(s) Document(s ) METHEMOGLOBIN 0.3 % [facility] ID Date Data Source [id number] 03/31/2020 08:49:00 PM EDT [facility] Value Range Interpretation Description Data Sup porting Code Source(s) Document(s ) CARBOXYHEMOGLOBIN 1.4 % [facility] ID Date Data Source [id number] 03/31/2020 08:49:00 PM EDT [facility] Value Range Interpretation Code Description Data Sharon rce(s) Supporting Document(s ) ABG TEMP 98.0 [facility] ID Date Data Source [id number] 03/31/2020 08:49:00 PM EDT [facility] Value Range Interpretation Code Description Data Sharon rce(s) Supporting Document(s ) FIO2 28 % [facility] ID Date Data Source [id number] 03/31/2020 08:49:00 PM EDT [facility] Value Range Interpretation Code Description Data Sharon rce(s) Supporting Document(s ) ABG BE -0.4 mmol/L [facility] ID Date Data Source [id number] 03/31/2020 08:49:00 PM EDT [facility] Value Range Interpretation Code Description Data Sharon rce(s) Supporting Document(s ) ABG O2SAT 93 % [facility] ID Date Data Source [id number] 03/31/2020 08:49:00 PM EDT [facility] Value Range Interpretation Code Description Data Sharon rce(s) Supporting Document(s ) ABG HCO3 26 mmol/L [facility] ID Date Data Source [id number] 03/31/2020 08:49:00 PM EDT [facility] Value Range Interpretation Code Description Data Sharon rce(s) Supporting Document(s ) ABG PO2 76 mm[Hg] [facility] ID Date Data Source [id number] 03/31/2020 08:49:00 PM EDT [facility] Value Range Interpretation Code Description Data Sharon rce(s) Supporting Document(s ) ABG PCO2 50 mm[Hg] [facility] ID Date Data Source [id number] 03/31/2020 08:49:00 PM EDT [facility] Value Range Interpretation Code Description Data Sharon rce(s) Supporting Document(s ) ABG PH 7.33 [facility] ID Date Data Source [id number] 03/31/2020 08:49:00 PM EDT [facility] Value Range Interpretation Code Description Data Sharon rce(s) Supporting Document(s ) ABG MODE 2LPM/NC [facility] ID Date Data Source [id number] 03/31/2020 08:49:00 PM EDT [facility] Value Range Interpretation Code Description Data Supporting Source(s) Document(s ) ABG SOURCE ARTERIAL [facility] ID Date Data Source [id number] 03/31/2020 08:49:00 PM EDT [facility] Value Range Interpretation Code Description Data Sharon rce(s) Supporting Document(s ) XAVIER TEST POSITIVE [facility] ID Date Data Source [id number] 03/31/2020 07:57:00 PM EDT [facility] Value Range Interpretation Description Data Sup porting Code Source(s) Document(s ) Ammonia 26 mmol/L [facility]um [facility] e] in Plasma ID Date Data Source [id number] 03/31/2020 07:57:00 PM EDT [facility] Name Value Range Interpretation Description Data Sup porting Code Source(s) Document(s ) Ammonia 26 mmol/L [facility]oles[facility]um [facility] e] in Plasma ID Date Data Source [id number] 03/28/2020 08:24:00 AM EDT [facility] Name Value Range Interpretation Description Data Sup porting Code Source(s) Document(s ) Phosphate 6.5 mg/dL [facility] [Mass/volume[facility] Hospital in Serum or Plasma ID Date Data Source [id number] 03/28/2020 08:24:00 AM EDT [facility] Name Value Range Interpretation Description Data Sup porting Code Source(s) Document(s ) Calcium 8.1 mg/dL [facility] [Mass[facility]volume [facility] ] in Serum or Plasma ID Date Data Source [id number] 03/28/2020 08:24:00 AM EDT [facility] Name Value Range Interpretation Code Description Data Sharon rce(s) Supporting Document(s ) Urea 6.4 [facility] nitrogen/Cre [facility] atinine [Mass Ratio] in Serum or Plasma ID Date Data Source [id number] 03/28/2020 08:24:00 AM EDT [facility] Name Value Range Interpretation Description Data Sup porting Code Source(s) Document(s ) Creatinine 4.4 mg/dL [facility] [Mass/volume[facility] in Serum or Plasma ID Date Data Source [id number] 03/28/2020 08:24:00 AM EDT [facility] Name Value Range Interpretation Description Data Sup porting Code Source(s) Document(s ) Urea 28 mg/dL [facility] nitrogen [facility] [Mass/volume ] in Serum or Plasma ID Date Data Source [id number] 03/28/2020 08:24:00 AM EDT [facility] Name Value Range Interpretation Code Description Data Sharon rce(s) Supporting Document(s ) Anion gap in 14 [facility] Serum or [facility] Plasma ID Date Data Source [id number] 03/28/2020 08:24:00 AM EDT [facility] Name Value Range Interpretation Description Data Sup porting Code Source(s) Document(s ) Carbon 29 mmol/L [facility] dioxide, Hospital total [Moles/volu me] in Serum or Plasma ID Date Data Source [id number] 03/28/2020 08:24:00 AM EDT [facility] Name Value Range Interpretation Description Data Sup porting Code Source(s) Document(s ) Chloride 98 mmol/L [facility]um [facility] e] in Serum or Plasma ID Date Data Source [id number] 03/28/2020 08:24:00 AM EDT [facility] HEMOLYSIS Name Value Range Interpretation Description Data Sup porting Code Source(s) Document(s ) Potassium 4.2 [facility] [Moles/volume mmol/L Hospital ] in Serum or Plasma ID Date Data Source [id number] 03/28/2020 08:24:00 AM EDT [facility] Name Value Range Interpretation Description Data Sup porting Code Source(s) Document(s ) Sodium 137 mmol/L [facility] [[facility]oles[facility]u [facility] me] in Serum or Plasma ID Date Data Source [id number] 03/28/2020 08:24:00 AM EDT [facility] Name Value Range Interpretation Description Data Sup porting Code Source(s) Document(s ) Glucose 81 mg/dL [facility] [Mass[facility] ] in Serum or Plasma ID Date Data Source [id number] 03/28/2020 08:24:00 AM EDT [facility] Value Range Interpretation Description Data Sup porting Code Source(s) Document(s ) Platelet mean 12.2 fL [facility] volume [facility] [Entitic volume] in Blood by Automated count ID Date Data Source [id number] 03/28/2020 08:24:00 AM EDT [facility] Value Range Interpretation Description Data Sup porting Code Source(s) Document(s ) Platelets 62 [facility] [#/volume] in 10*3/uL Hospital Blood by Automated count ID Date Data Source [id number] 03/28/2020 08:24:00 AM [facility] Value Range Interpretation Description Data Sup porting Code Source(s) Document(s ) Erythrocyte 16.2 % [facility] distribution Hospital width [Ratio] by Automated count ID Date Data Source [id number] 03/28/2020 08:24:00 AM [facility] Value Range Interpretation Description Data Sup porting Code Source(s) Document(s ) Erythrocyte mean 30.5 [facility] corpuscular g/dL Hospital hemoglobin concentration [Mass/volume] by Automated count ID Date Data Source [id number] [facility] Description Data Sup porting Code Source(s) Document(s ) Erythrocyte 32.4 pg [facility] corpuscular hemoglobin [Entitic mass] by Automated count ID Date Data Source [id number] 03/28/2020 08:24:00 AM [facility] Value Range Interpretation Description Data Sup porting Code Source(s) Document(s ) Erythrocyte 106.3 fL [facility] mean Hospital corpuscular volume [Entitic volume] by Automated count ID Date Data Source [id number] 03/28/2020 08:24:00 AM EDT [facility] Name Value Range Interpretation Description Data Sup porting Code Source(s) Document(s ) Hematocrit 30.2 % [facility] [Volume Hospital Fraction] of Blood by Automated count ID Date Data Source [id number] 03/28/2020 08:24:00 AM EDT [facility] Value Range Interpretation Description Data Sup porting Code Source(s) Document(s ) Hemoglobin 9.2 g/dL [facility] [Mass/volume[facility] Hospital in Blood ID Date Data Source [id number] 03/28/2020 08:24:00 AM EDT [facility] Value Range Interpretation Description Data Sup porting Code Source(s) Document(s ) Erythrocytes 2.84 [facility] [#/volume] in 10*6/uL Hospital Blood by Automated count ID Date Data Source [id number] 03/28/2020 08:24:00 AM EDT [facility] Value Range Interpretation Description Data Sup porting Code Source(s) Document(s ) Leukocytes 3.6 [facility] [#/volume] in 10*3/uL Hospital Blood by Automated count ID Date Data Source [id number] 03/27/2020 08:02:00 AM EDT [facility] Value Range Interpretation Code Description Data Sharon rce(s) Supporting Document(s ) Albumin/Glob 1.4 [facility] ulin [Mass Hospital Ratio] in Serum or Plasma ID Date Data Source [id number] 03/27/2020 08:02:00 AM EDT [facility] Value Range Interpretation Description Data Sup porting Code Source(s) Document(s ) Albumin 3.6 g/dL [facility] [Mass/volume [facility] ] in Serum or Plasma ID Date Data Source [id number] 03/27/2020 08:02:00 AM [facility] Name Value Range Interpretation Description Data Sup porting Code Source(s) Document(s ) Protein 6.2 g/dL [facility] [[facility] ] in Serum or Plasma ID Date Data Source [id number] 03/27/2020 08:02:00 AM [facility] Name Value Range Interpretation Description Data Sup porting Code Source(s) Document(s ) Aspartate 16 U/L [place] aminotransferase [place] [Enzymatic Hospital activity/volume] in Serum or Plasma ID Date Data Source [id number] 03/27/2020 08:02:00 AM [facility] Name Value Range Interpretation Description Data Sup porting Code Source(s) Document(s ) Alanine 12 U/L [facility] aminotransferase [facility] [Enzymatic Hospital activity/volume] in Serum or Plasma ID Date Data Source [id number] 03/27/2020 08:02:00 AM [facility] Name Value Range Interpretation Description Data Sup porting Code Source(s) Document(s ) Alkaline 76 U/L [facility] phosphatase [facility] [Enzymatic activity/volume ] in Serum or Plasma ID Date Data Source [id number] 03/27/2020 08:02:00 AM [facility] Name Value Range Interpretation Description Data Sup porting Code Source(s) Document(s ) Bilirubin.t 0.4 mg/dL [facility] [Mass/volum e] in Serum or Plasma ID Date Data Source [id number] 03/26/2020 09:45:00 AM [facility] [employer]:HOSSEIN MICHAEL Name Value Range Interpretation Description Data Sup porting Code Source(s) Document(s ) Glucose 92 mg/dL [facility] [Mass/volume] Hospital in Capillary blood by Glucometer ID Date Data Source [id number] 03/25/2020 07:47:00 PM [facility] REFERENCE RANGES: NONE DETECTED <20 MG/DL NONE TO MILD EUPHORIA 20-49 MG/DL MILD EUPHORIA 50-99 MG/DL MODERATE EUPHORIA 100-149 MG/DL INTOXICATION 150-300 MG/DL Name Value Range Interpretation Description Data Sup porting Code Source(s) Document(s ) Ethanol < 20 [facility] [Mass/volume mg/dL Hospital ] in Serum or Plasma ID Date Data Source [id number] 03/25/2020 07:47:00 PM [facility] TEST RESULT IS A TOTAL TRICYCLIC [...] porting Code Source(s) Document(s ) TRICYCLIC 140 [facility] ANTIDEPRESSANT ng/mL Hospital ID Date Data Source [id number] 03/25/2020 07:47:00 PM [facility] REFERENCE RANGES: ANALGESIC: 0.0 - 10.0 MG/DL. ARTHRITIC THERAPY: 15.0 - 30.0 MG/DL. Name Value Range Interpretation Description Data Sup porting Code Source(s) Document(s ) Salicylates < 3.0 [facility] [Mass/volume] mg/dL Hospital in Serum or Plasma ID Date Data Source [id number] 03/25/2020 07:47:00 PM [facility] THERAPEUTIC RANGE: 10.0-30.0 UG/MLTOXIC RANGE: 4 HRS AFTER INGESTION >150 UG/ML 12 HRS AFTER INGESTION >35 UG/ML Name Value Range Interpretation Description Data Sup porting Code Source(s) Document(s ) ACETAMINOPHEN < 10.0 [facility] ug/mL Hospital ID Date Data Source [id number] 03/25/2020 07:47:00 PM [facility] REFERENCE RANGES: NONE DETECTED <20 MG/DL NONE TO MILD EUPHORIA 20-49 MG/DL MILD EUPHORIA 50-99 MG/DL MODERATE EUPHORIA 100-149 MG/DL INTOXICATION 150-300 MG/DL Name Value Range Interpretation Description Data Sup porting Code Source(s) Document(s ) Ethanol < 20 [facility] [Mass/volume mg/dL Hospital ] in Serum or Plasma ID Date Data Source [id number] 03/25/2020 07:47:00 PM [facility] TEST RESULT IS A TOTAL TRICYCLIC [...] porting Code Source(s) Document(s ) TRICYCLIC 140 [facility] ANTIDEPRESSANT ng/mL Hospital ID Date Data Source [id number] 03/25/2020 07:47:00 PM [facility] REFERENCE RANGES: ANALGESIC: 0.0 - 10.0 MG/DL. ARTHRITIC THERAPY: 15.0 - 30.0 MG/DL. Name Value Range Interpretation Description Data Sup porting Code Source(s) Document(s ) Salicylates < 3.0 [facility] [Mass/volume] mg/dL Hospital in Serum or Plasma ID Date Data Source [id number] 03/25/2020 07:47:00 PM [facility] THERAPEUTIC RANGE: 10.0-30.0 UG/MLTOXIC RANGE: 4 HRS AFTER INGESTION >150 UG/ML 12 HRS AFTER INGESTION >35 UG/ML Name Value Range Interpretation Description Data Sup porting Code Source(s) Document(s ) ACETAMINOPHEN < 10.0 [facility] ug/mL Hospital ID Date Data Source [id number] 03/25/2020 07:47:00 PM EDT [facility] Name Value Range Interpretation Code Description Data Sharon rce(s) Supporting Document(s ) Lipase 15 U/L [facility] [Enzymatic Hospital activity/vo lume] in Serum or Plasma ID Date Data Source [id number] 02/23/2020 01:13:00 PM EDT [facility] TEST PERFORMED BY [employer] CHEMILUMINESCENCE METHOD. Name Value Range Interpretation Description Data Sup porting Code Source(s) Document(s ) Troponin 0.10 [facility] I.cardiac ng/mL Hospital [Mass/volume ] in Serum or Plasma ID Date Data Source [id number] 02/23/2020 01:13:00 PM EDT [facility] Name Value Range Interpretation Description Data Sup porting Code Source(s) Document(s ) Calcium 8.0 mg/dL [facility] [Mass/volume [facility] ] in Serum or Plasma ID Date Data Source [id number] 02/23/2020 01:13:00 PM EDT [facility] Name Value Range Interpretation Code Description Data Sharon rce(s) Supporting Document(s ) Urea 5.3 [facility] nitrogen/Cre Hospital atinine [Mass Ratio] in Serum or Plasma ID Date Data Source [id number] 02/23/2020 01:13:00 PM EDT [facility] Name Value Range Interpretation Description Data Sup porting Code Source(s) Document(s ) Creatinine 4.5 mg/dL [facility] [Mass/volume] Hospital in Serum or Plasma ID Date Data Source [id number] 02/23/2020 01:13:00 PM EDT [facility] Name Value Range Interpretation Description Data Sup porting Code Source(s) Document(s ) Urea 24 mg/dL [facility] nitrogen [facility] [Mass/volume ] in Serum or Plasma ID Date Data Source [id number] 02/23/2020 01:13:00 PM EDT [facility] Name Value Range Interpretation Code Description Data Sharon rce(s) Supporting Document(s ) Anion gap in 15 [facility] Serum or [facility] Plasma ID Date Data Source [id number] 02/23/2020 01:13:00 PM EDT [facility] Name Value Range Interpretation Description Data Sup porting Code Source(s) Document(s ) Carbon 26 mmol/L [facility] dioxide, Hospital total [Moles/volu me] in Serum or Plasma ID Date Data Source [id number] 02/23/2020 01:13:00 PM EDT [facility] Name Value Range Interpretation Description Data Sup porting Code Source(s) Document(s ) Chloride 103 [facility] [Moles/volum mmol/L Hospital e] in Serum or Plasma ID Date Data Source [id number] 02/23/2020 01:13:00 PM EDT [facility] HEMOLYSIS Name Value Range Interpretation Description Data Sup porting Code Source(s) Document(s ) Potassium 5.1 [facility] [Moles/volume mmol/L Hospital ] in Serum or Plasma ID Date Data Source [id number] 02/23/2020 01:13:00 PM EDT [facility] Name Value Range Interpretation Description Data Sup porting Code Source(s) Document(s ) Sodium 139 mmol/L [facility] [Moles/volu Hospital me] in Serum or Plasma ID Date Data Source [id number] 02/23/2020 01:13:00 PM EDT [facility] Name Value Range Interpretation Description Data Sup porting Code Source(s) Document(s ) Glucose 102 mg/dL [facility] [Mass/volume Hospital ] in Serum or Plasma ID Date Data Source [id number] 02/23/2020 01:13:00 PM EDT [facility] Name Value Range Interpretation Code Description Data Supporting Source(s) Document(s ) NUCLEATED RBCS 0.0 % [facility] (AUTO Hospital DIFF%)DIS ID Date Data Source [id number] 02/23/2020 01:13:00 PM EDT [facility] Name Value Range Interpretation Description Data Sup porting Code Source(s) Document(s ) Differential MANUAL [facility] cell count Hospital method - Blood ID Date Data Source [id number] 02/23/2020 01:13:00 PM EDT [facility] Value Range Interpretation Code Description Data Sharon rce(s) Supporting Document(s ) Cells 100 [facility] Hospital Total [#] in Blood ID Date Data Source [id number] 02/23/2020 01:13:00 PM EDT [facility] PLT ESTIMATE DECREASED Name Value Range Interpretation Description Data Sup porting Code Source(s) Document(s ) PLATELET PRESENT [facility] Hospital ID Date Data Source [id number] 02/23/2020 01:13:00 PM EDT [facility] Name Value Range Interpretation Code Description Data Sharon rce(s) Supporting Document(s ) SCHISTOCYTES [facility] ID Date Data Source [id number] 02/[facility] Interpretation Code Description Data Sharon rce(s) Supporting Document(s ) ARCHIE CELLS OCC [facility] ID Date Data Source [id number] 02/23/2020 01:13:00 PM EDT [facility] Name Value Range Interpretation Code Description Data Sharon rce(s) Supporting Document(s ) TARGET CELLS [facility] ID Date Data Source [id number] 02/23/2020 01:13:00 PM EDT [facility] Name Value Range Interpretation Code Description Data Sharon rce(s) Supporting Document(s ) TEARDROP OCC [facility] CELL[facility] ID Date Data Source [id number] 02/23/2020 01:13:00 PM EDT [facility] Name Value Range Interpretation Code Description Data Sharon rce(s) Supporting Document(s ) OVALOCYTES 1+ [facility] ID Date Data Source [id number] 02/23/2020 01:13:00 PM EDT [facility] Name Value Range Interpretation Code Description Data Supporting Source(s) Document(s ) POLYCHROMASIA 1+ [facility] ID Date Data Source [id number] 02/23/2020 01:13:00 PM EDT [facility] Name Value Range Interpretation Code Description Data Sharon rce(s) Supporting Document(s ) HYPOCHROMIA [facility] ID Date Data Source [id number] 02/23/2020 01:13:00 PM EDT [facility] Name Value Range Interpretation Code Description Data Sharon rce(s) Supporting Document(s ) MACROCYTOSIS 2+ [facility] ID Date Data Source [id number] 02/23/2020 01:13:00 PM EDT [facility] Name Value Range Interpretation Code Description Data Sharon rce(s) Supporting Document(s ) MICROCYTOSIS [facility] ID Date Data Source [id number] 02/23/2020 01:13:00 PM EDT [facility] Name Value Range Interpretation Description Data Sup porting Code Source(s) Document(s ) POIKILOCYTOSIS 1+ [facility] ID Date Data Source [id number] 02/23/2020 01:13:00 PM EDT [facility] Name Value Range Interpretation Code Description Data Sharon rce(s) Supporting Document(s ) ANISOCYTOSIS 1+ [facility] ID Date Data Source [id number] 02/23/2020 01:13:00 PM EDT [facility] Value Range Interpretation Description Data Sup porting Code Source(s) Document(s ) Basophils 0.04 [facility] [#/volume] in 10*3/uL Hospital Blood by Manual count ID Date Data Source [id number] 02/23/2020 01:13:00 PM EDT [facility] Value Range Interpretation Description Data Sup porting Code Source(s) Document(s ) Eosinophils 0.29 [facility] [#/volume] in 10*3/uL Hospital Blood by Manual count ID Date Data Source [id number] 02/23/2020 01:13:00 PM EDT [facility] Value Range Interpretation Description Data Sup porting Code Source(s) Document(s ) Monocytes 0.33 [facility] [#/volume] in 10*3/uL Hospital Blood by Manual count ID Date Data Source [id number] 02/23/2020 01:13:00 PM EDT [facility] Value Range Interpretation Description Data Sup porting Code Source(s) Document(s ) Lymphocytes 0.74 [facility] [#/volume] in 10*3/uL Hospital Blood by Manual count ID Date Data Source [id number] 02/23/2020 01:13:00 PM EDT [facility] Value Range Interpretation Description Data Sup porting Code Source(s) Document(s ) Neutrophils 2.67 [facility] [#/volume] in 10*3/uL Hospital Blood by Manual count ID Date Data Source [id number] 02/23/2020 01:13:00 PM EDT [facility] Name Value Range Interpretation Description Data Sup porting Code Source(s) Document(s ) Basophils/100 1 % [facility] leukocytes in Hospital Blood by Manual count ID Date Data Source [id number] 02/23/2020 01:13:00 PM EDT [facility] Value Range Interpretation Description Data Sup porting Code Source(s) Document(s ) Eosinophils/100 7 % [facility] leukocytes in [facility] Blood by Manual count ID Date Data Source [id number] 02/23/2020 01:13:00 PM EDT [facility] Value Range Interpretation Description Data Sup porting Code Source(s) Document(s ) Monocytes/100 8 % [facility] leukocytes in [facility] Blood by Manual count ID Date Data Source [id number] 02/23/2020 01:13:00 PM EDT [facility] Value Range Interpretation Description Data Sup porting Code Source(s) Document(s ) Lymphocytes/100 18 % [facility] leukocytes in Hospital Blood by Manual count ID Date Data Source [id number] 02/23/2020 01:13:00 PM EDT [facility] Value Range Interpretation Description Data Sup porting Code Source(s) Document(s ) Neutrophils/100 65 % [facility] leukocytes in [facility] Blood by Manual count ID Date Data Source [id number] 02/23/2020 01:13:00 PM EDT [facility] Value Range Interpretation Description Data Sup porting Code Source(s) Document(s ) Platelet mean 11.9 fL [facility] volume Hospital [Entitic volume] in Blood by Automated count ID Date Data Source [id number] 02/23/2020 01:13:00 PM EDT [facility] Value Range Interpretation Description Data Sup porting Code Source(s) Document(s ) Platelets 70 [facility] [#/volume] in 10*3/uL Hospital Blood by Automated count ID Date Data Source [id number] 02/23/2020 01:13:00 PM [facility] Value Range Interpretation Description Data Sup porting Code Source(s) Document(s ) Erythrocyte 15.0 % [facility] Hospital width [Ratio] by Automated count ID Date Data Source [id number] 02/[facility] Description Data Sup porting Code Source(s) Document(s ) Erythrocyte mean 29.8 [facility] corpuscular g/dL Hospital hemoglobin concentration [Mass/volume] by Automated count ID Date Data Source [id number] 02/23/2020 01:13:00 PM [facility] Value Range Interpretation Description Data Sup porting Code Source(s) Document(s ) Erythrocyte 32.1 pg [facility] corpuscular hemoglobin [Entitic mass] by Automated count ID Date Data Source [id number] 02/23/2020 01:13:00 PM [facility] Value Range Interpretation Description Data Sup porting Code Source(s) Document(s ) Erythrocyte 107.7 fL [facility] corpuscular volume [Entitic volume] by Automated count ID Date Data Source [id number] 02/23/2020 01:13:00 PM [facility] Value Range Interpretation Description Data Sup porting Code Source(s) Document(s ) Hematocrit 29.5 % [facility] [Volume Hospital Fraction] of Blood by Automated count ID Date Data Source [id number] 02/23/2020 01:13:00 PM EDT [facility] Name Value Range Interpretation Description Data Sup porting Code Source(s) Document(s ) Hemoglobin 8.8 g/dL [facility] [Mass/volume] Hospital in Blood ID Date Data Source [id number] 02/23/2020 01:13:00 PM EDT [facility] Name Value Range Interpretation Description Data Sup porting Code Source(s) Document(s ) Erythrocytes 2.74 [facility] [#/volume] in 10*6/uL Hospital Blood by Automated count ID Date Data Source [id number] 02/23/2020 01:13:00 PM EDT [facility] Name Value Range Interpretation Description Data Sup porting Code Source(s) Document(s ) Leukocytes 4.1 [facility] [#/volume] in 10*3/uL Hospital Blood by Automated count ID Date Data Source [id number] 02/09/2020 10:46:00 AM EDT [facility] Value Range Interpretation Code Description Data Sharon rce(s) Supporting Document(s ) Anion gap in 17 [facility] Serum or [facility] Plasma ID Date Data Source [id number] 02/09/2020 10:46:00 AM EDT [facility] Name Value Range Interpretation Description Data Sup porting Code Source(s) Document(s ) Carbon 28 mmol/L [facility] dioxide, Hospital total [Moles/volu me] in Serum or Plasma ID Date Data Source [id number] 02/09/2020 10:46:00 AM EDT [facility] Name Value Range Interpretation Description Data Sup porting Code Source(s) Document(s ) Chloride 99 mmol/L [facility] [Moles/volum Hospital e] in Serum or Plasma ID Date Data Source [id number] 02/09/2020 10:46:00 AM EDT [facility] Name Value Range Interpretation Description Data Sup porting Code Source(s) Document(s ) Potassium 4.2 [facility] [Moles/volume mmol/L Hospital ] in Serum or Plasma ID Date Data Source [id number] 02/09/2020 10:46:00 AM EDT [facility] Value Range Interpretation Description Data Sup porting Code Source(s) Document(s ) Sodium 140 mmol/L [facility] [Moles/volu Hospital dc] in Serum or Plasma ID Date Data Source [id number] 02/09/2020 10:46:00 AM EDT [facility] Value Range Interpretation Description Data Sup porting Code Source(s) Document(s ) Glucose 106 mg/dL [facility] [Mass/volume Hospital ] in Serum or Plasma ID Date Data Source [id number] 02/09/2020 10:46:00 AM EDT [facility] Value Range Interpretation Description Data Sup porting Code Source(s) Document(s ) Platelet mean 12.[address] [facility] [Entitic volume] in Blood by Automated count ID Date Data Source [id number] 02/09[facility] Interpret[facility] Description Data Sup porting Code Source(s) Document(s ) Platelets 88 [facility] [#/volume] in 10*3/uL Hospital Blood by Automated count ID Date Data Source [id number] 02/09/2020 10:46:00 AM EDT [facility] Value Range Interpretation Description Data Sup porting Code Source(s) Document(s ) Erythrocyte 14.7 % [facility] distribution Hospital width [Ratio] by Automated count ID Date Data Source [id number] 02/09/2020 10:46:00 AM EDT [facility] Value Range Interpretation Description Data Sup porting Code Source(s) Document(s ) Erythrocyte mean 29.7 [facility] corpuscular g/dL Hospital hemoglobin concentration [Mass/volume] by Automated count ID Date Data Source [id number] 02/09/2020 10:46:00 AM EDT [facility] Value Range Interpretation Description Data Sup porting Code Source(s) Document(s ) Erythrocyte 31.8 pg [facility] corpuscular hemoglobin [Entitic mass] by Automated count ID Date Data Source [id number] 02/09/2020 10:46:00 AM EDT [facility] Value Range Interpretation Description Data Sup porting Code Source(s) Document(s ) Erythrocyte 107.1 fL [facility] corpuscular volume [Entitic volume] by Automated count ID Date Data Source [id number] 02/09/2020 [facility] Interpretation Description Data Sup porting Code Source(s) Document(s ) Hematocrit 30.3 % [facility] [Volume Hospital Fraction] of Blood by Automated count ID Date Data Source [id number] 02/09/2020 [facility] Interpretation Description Data Sup porting Code Source(s) Document(s ) Hemoglobin 9.0 g/dL [facility] [Mass/volume] Hospital in Blood ID Date Data Source [id number] 02/09/2020 [facility] Interpretation Description Data Sup porting Code Source(s) Document(s ) Erythrocytes 2.83 [facility] [#/volume] in 10*6/uL Hospital Blood by Automated count ID Date Data Source [id number] 02/09/2020 [facility] Interpretation Description Data Sup porting Code Source(s) Document(s ) Leukocytes 4.7 [facility] [#/volume] in 10*3/uL Hospital Blood by Automated count ID Date Data Source [id number] 02/09/2020 10:46:00 AM [facility] Value Range Interpretation Description Data Sup porting Code Source(s) Document(s ) Aspartate 10 U/L [facility] aminotransferase [facility] [Enzymatic Hospital activity/volume] in Serum or Plasma ID Date Data Source [id number] 02/09/2020 10:46:00 AM [facility] Value Range Interpretation Description Data Sup porting Code Source(s) Document(s ) Alanine < 8 U/L [facility] aminotransferase [facility] [Enzymatic Hospital activity/volume] in Serum or Plasma ID Date Data Source [id number] 02/09/2020 10:46:00 AM [facility] Value Range Interpretation Description Data Sup porting Code Source(s) Document(s ) Alkaline 95 U/L [facility] phosphatase [facility] [Enzymatic activity/volume ] in Serum or Plasma ID Date Data Source [id number] 02/09/2020 10:46:00 AM [facility] Value Range Interpretation Description Data Sup porting Code Source(s) Document(s ) Bilirubin.t 0.2 mg/dL [facility] [Mass/volum e] in Serum or Plasma ID Date Data Source [id number] 02/09/2020 10:46:00 AM [facility] Value Range Interpretation Code Description Data Sharon rce(s) Supporting Document(s ) Albumin/Glob 1.6 [facility] [Mass Hospital Ratio] in Serum or Plasma ID Date Data Source [id number] 02/09/2020 10:46:00 AM [facility] Value Range Interpretation Description Data Sup porting Code Source(s) Document(s ) Albumin 3.8 g/dL [facility] [Mass/volume Hospital ] in Serum or Plasma ID Date Data Source [id number] 02/09/2020 [facility] Interpretation Description Data Sup porting Code Source(s) Document(s ) Protein 6.2 g/dL [facility] [Mass/volume [facility] ] in Serum or Plasma ID Date Data Source [id number] 02/09/2020 10:46[facility] Value Range Interpretation Description Data Sup porting Code Source(s) Document(s ) Calcium 7.5 mg/dL [facility] [Mass/volume Hospital ] in Serum or Plasma ID Date Data Source [id number] 02/09/2020 10:46[facility] Value Range Interpretation Code Description Data Sharon rce(s) Supporting Document(s ) Urea 7.2 [facility] nitrogen/Cre Hospital atinine [Mass Ratio] in Serum or Plasma ID Date Data Source [id number] 02/09/2020 10:46:00 AM [facility] NOTIFICATION AND READ BACK OF CRITICAL R ESULTS TO ZELALEM CARMONARN-4E AT 1252 ON 02/09/20 BY Fadi Ho.REPORTED CR ITICAL VALUES SHOULD BE INTERPRETED WITHIN CLINICAL CONTEXT. Name Value Range Interpretation Description Data Sup porting Code Source(s) Document(s ) Creatinine 7.2 mg/dL [facility] [Mass/volume] Hospital in Serum or Plasma ID Date Data Source [id number] 02/09/2020 10:46:[facility] Value Range Interpretation Description Data Sup porting Code Source(s) Document(s ) Urea 52 mg/dL [facility] nitrogen [facility] [Mass/volume ] in Serum or Plasma ID Date Data Source [id number] 02/09/2020 10:46:00 AM [facility] Name Value Range Interpretation Description Data Sup porting Code Source(s) Document(s ) Aspartate 10 U/L [place] aminotransferase [facility] [Enzymatic Hospital activity/volume] in Serum or Plasma ID Date Data Source [id number] 02/09/2020 10:46:00 AM EDT [facility] Name Value Range Interpretation Description Data Sup porting Code Source(s) Document(s ) Alanine < 8 U/L [facility] aminotransferase [facility] [Enzymatic Hospital activity/volume] in Serum or Plasma ID Date Data Source [id number] 02/09/2020 10:46:00 AM EDT [facility] Name Value Range Interpretation Description Data Sup porting Code Source(s) Document(s ) Alkaline 95 U/L [facility] [Enzymatic activity/volume ] in Serum or Plasma ID Date Data Source [id number] 02/09/2020 10:46:00 AM EDT [facility] Name Value Range Interpretation Description Data Sup porting Code Source(s) Document(s ) Bilirubin.t 0.2 mg/dL [facility] [Mass/volum e] in Serum or Plasma ID Date Data Source [id number] 02/09/2020 10:46:00 AM EDT [facility] Name Value Range Interpretation Code Description Data Sharon rce(s) Supporting Document(s ) [facility]6 [facility] in Serum or Plasma ID Date Data Source [id number] 02/09/2020 10:46:00 AM EDT [facility] Name Value Range Interpretation Description Data Sup porting Code Source(s) Document(s ) Albumin 3.8 g/dL [facility] [Mass/volume Hospital ] in Serum or Plasma ID Date Data Source [id number] 02/09/2020 10:46:00 AM EDT [facility] Name Value Range Interpretation Description Data Sup porting Code Source(s) Document(s ) Protein 6.2 g/dL [facility] [Mass/volume Hospital ] in Serum or Plasma ID Date Data Source [id number] 02/08/2020 10:20:00 PM EDT [facility] Name Value Range Interpretation Description Data Sup porting Code Source(s) Document(s ) Natriuretic 1694.5 [facility] peptide B pg/mL Hospital [Mass/volume] in Serum or Plasma ID Date Data Source [id number] 02/08/2020 10:20:00 PM EDT [facility] TEST PERFORMED BY [employer] CHEMILUMINESCENCE METHOD. Name Value Range Interpretation Description Data Sup porting Code Source(s) Document(s ) Troponin 0.11 [facility] I.cardiac ng/mL Hospital [Mass/volume ] in Serum or Plasma ID Date Data Source [id number] 02/08/2020 10:20:00 PM EDT [facility] Name Value Range Interpretation Code Description Data Supporting Source(s) Document(s ) NUCLEATED RBCS 0.0 % [facility] (AUTO Hospital DIFF%)DIS ID Date Data Source [id number] 02/08/2020 10:20:00 PM EDT [facility] Name Value Range Interpretation Description Data Sup porting Code Source(s) Document(s ) Differential AUTOMATED [facility] cell count Hospital method - Blood ID Date Data Source [id number] 02/08/2020 10:20:00 PM EDT [facility] Name Value Range Interpretation Description Data Sup porting Code Source(s) Document(s ) Immature 0.01 [facility] granulocytes 10*3/uL Hospital [#/volume] in Blood by Automated count ID Date Data Source [id number] 02/08/2020 10:20:00 PM EDT [facility] Name Value Range Interpretation Description Data Sup porting Code Source(s) Document(s ) Basophils 0.03 [facility] [#/volume] in 10*3/uL Hospital Blood by Automated count ID Date Data Source [id number] 02/08/2020 10:20:00 PM EDT [facility] Name Value Range Interpretation Description Data Sup porting Code Source(s) Document(s ) Eosinophils 0.35 [facility] [#/volume] in 10*3/uL Hospital Blood by Automated count ID Date Data Source [id number] 02/08/2020 10:20:00 PM EDT [facility] Value Range Interpretation Description Data Sup porting Code Source(s) Document(s ) Monocytes 0.38 [facility] [#/volume] in 10*3/uL Hospital Blood by Automated count ID Date Data Source [id number] 02/08/2020 10:20:00 PM EDT [facility] Value Range Interpretation Description Data Sup porting Code Source(s) Document(s ) Lymphocytes 1.00 [facility] [#/volume] in 10*3/uL Hospital Blood by Automated count ID Date Data Source [id number] 02/08/2020 10:20:00 PM EDT [facility] Value Range Interpretation Description Data Sup porting Code Source(s) Document(s ) Neutrophils 2.64 [facility] [#/volume] in 10*3/uL Hospital Blood by Automated count ID Date Data Source [id number] 02/08/2020 10:20:00 PM EDT [facility] Value Range Interpretation Description Data Sup porting Code Source(s) Document(s ) Nucleated 0.0 % [facility] erythrocytes/10 Hospital 0 leukocytes [Ratio] in Blood by Automated count ID Date Data Source [id number] 02/08/2020 10:20:00 PM EDT [facility] Value Range Interpretation Description Data Sup porting Code Source(s) Document(s ) Immature 0.2 % [facility] granulocytes/10 Hospital 0 leukocytes in Blood by Automated count ID Date Data Source [id number] 02/08/2020 10:20:00 PM EDT [facility] Name Value Range Interpretation Description Data Sup porting Code Source(s) Document(s ) Basophils/100 0.7 % [facility] leukocytes in Hospital Blood by Automated count ID Date Data Source [id number] 02/08/2020 10:20:00 PM EDT [facility] Value Range Interpretation Description Data Sup porting Code Source(s) Document(s ) Eosinophils/100 7.9 % [facility] leukocytes in Hospital Blood by Automated count ID Date Data Source [id number] 02/08/2020 10:20:00 PM EDT [facility] Value Range Interpretation Description Data Sup porting Code Source(s) Document(s ) Monocytes/100 8.6 % [facility] leukocytes in Hospital Blood by Automated count ID Date Data Source [id number] 02/08/2020 10:20:00 PM EDT [facility] Value Range Interpretation Description Data Sup porting Code Source(s) Document(s ) Lymphocytes/10 22.7 % [facility] 0 leukocytes Hospital in Blood by Automated count ID Date Data Source [id number] 02/08/2020 10:20:00 PM EDT [facility] Value Range Interpretation Description Data Sup porting Code Source(s) Document(s ) Neutrophils/10 59.9 % [facility] 0 leukocytes Hospital in Blood by Automated count ID Date Data Source [id number] 02/08/2020 10:20:00 PM EDT [facility] Name Value Range Interpretation Description Data Sup porting Code Source(s) Document(s ) Natriuretic 1694.5 [facility] peptide B pg/mL Hospital [Mass/volume] in Serum or Plasma ID Date Data Source [id number] 02/08/2020 10:20:00 PM EDT [facility] Value Range Interpretation Description Data Sup porting Code Source(s) Document(s ) Immature 0.01 [facility] granulocytes 10*3/uL Hospital [#/volume] in Blood by Automated count ID Date Data Source [id number] 02/08/2020 10:20:00 PM EDT [facility] Value Range Interpretation Description Data Sup porting Code Source(s) Document(s ) Basophils 0.03 [facility] [#/volume] in 10*3/uL Hospital Blood by Automated count ID Date Data Source [id number] 02/08/2020 10:20:00 PM EDT [facility] Value Range Interpretation Description Data Sup porting Code Source(s) Document(s ) Eosinophils 0.35 [facility] [#/volume] in 10*3/uL Hospital Blood by Automated count ID Date Data Source [id number] 02/08/2020 10:20:00 PM EDT [facility] Value Range Interpretation Description Data Sup porting Code Source(s) Document(s ) Monocytes 0.38 [facility] [#/volume] in 10*3/uL Hospital Blood by Automated count ID Date Data Source [id number] 02/08/2020 10:20:00 PM EDT [facility] Value Range Interpretation Description Data Sup porting Code Source(s) Document(s ) Lymphocytes 1.00 [facility] [#/volume] in 10*3/uL Hospital Blood by Automated count ID Date Data Source [id number] 02/08/2020 10:20:00 PM EDT [facility] Value Range Interpretation Description Data Sup porting Code Source(s) Document(s ) Neutrophils 2.64 [facility] [#/volume] in 10*3/uL Hospital Blood by Automated count ID Date Data Source [id number] 02/08/2020 10:20:00 PM EDT [facility] Value Range Interpretation Description Data Sup porting Code Source(s) Document(s ) Nucleated 0.0 % [facility] erythrocytes/10 [facility] 0 leukocytes [Ratio] in Blood by Automated count ID Date Data Source [id number] 02/08/2020 10:20:00 PM EDT [facility] Value Range Interpretation Description Data Sup porting Code Source(s) Document(s ) Immature 0.2 % [facility] granulocytes/10 [facility] 0 leukocytes in Blood by Automated count ID Date Data Source [id number] 02/08/2020 10:20:00 PM EDT [facility] Value Range Interpretation Description Data Sup porting Code Source(s) Document(s ) Basophils/100 0.7 % [facility] leukocytes in Hospital Blood by Automated count ID Date Data Source [id number] 02/08/2020 10:20:00 PM EDT [facility] Value Range Interpretation Description Data Sup porting Code Source(s) Document(s ) Eosinophils/100 7.9 % [facility] leukocytes in [facility] Blood by Automated count ID Date Data Source [id number] 02/08/2020 10:20:00 PM EDT [facility] Value Range Interpretation Description Data Sup porting Code Source(s) Document(s ) Monocytes/100 8.6 % [facility] leukocytes in Hospital Blood by Automated count ID Date Data Source [id number] 02/08/2020 10:20:00 PM EDT [facility] Value Range Interpretation Description Data Sup porting Code Source(s) Document(s ) Lymphocytes/10 22.7 % [facility] 0 leukocytes Hospital in Blood by Automated count ID Date Data Source [id number] 02/08/2020 10:20:00 PM EDT [facility] Value Range Interpretation Description Data Sup porting Code Source(s) Document(s ) Neutrophils/10 59.9 % [facility] 0 leukocytes Hospital in Blood by Automated count ID Date Data Source [id number] 02/08/2020 09:30:00 PM EDT [facility] Value Range Interpretation Description Data Sup porting Code Source(s) Document(s ) IONIZED 1.03 [facility] CALCIUM mmol/L Hospital ID Date Data Source [id number] 02/08/2020 09:30:00 PM EDT [facility] Value Range Interpretation Code Description Data Supporting Source(s) Document(s ) METHEMOGLOBIN 0.3 % [facility] ID Date Data Source [id number] 02/08/2020 09:30:00 PM EDT [facility] Value Range Interpretation Description Data Sup porting Code Source(s) Document(s ) CARBOXYHEMOGLOBIN 0.6 % [facility] ID Date Data Source [id number] 02/08/2020 09:30:00 PM EDT [facility] Value Range Interpretation Code Description Data Sharon rce(s) Supporting Document(s ) ABG TEMP 98.0 [facility] ID Date Data Source [id number] 02/08/2020 09:30:00 PM EDT [facility] Value Range Interpretation Code Description Data Sharon rce(s) Supporting Document(s ) FIO2 28 % [facility] ID Date Data Source [id number] 02/08/2020 09:30:00 PM EDT [facility] Value Range Interpretation Code Description Data Sharon rce(s) Supporting Document(s ) ABG BE 2.3 mmol/L [facility] ID Date Data Source [id number] 02/08/2020 09:30:00 PM EDT [facility] Name Value Range Interpretation Code Description Data Sharon rce(s) Supporting Document(s ) ABG O2SAT 97 % [facility] ID Date Data Source [id number] 02/08/2020 09:30:00 PM EDT [facility] Name Value Range Interpretation Description Data Sup porting Code Source(s) Document(s ) IONIZED 1.03 [facility] CALCIUM mmol/L Hospital ID Date Data Source [id number] 02/08/2020 09:30:00 PM EDT [facility] Value Range Interpretation Code Description Data Supporting Source(s) Document(s ) METHEMOGLOBIN 0.3 % [facility] ID Date Data Source [id number] 02/08/2020 09:30:00 PM EDT [facility] Value Range Interpretation Description Data Sup porting Code Source(s) Document(s ) CARBOXYHEMOGLOBIN 0.6 % [facility] ID Date Data Source [id number] 02/08/2020 09:30:00 PM EDT [facility] Value Range Interpretation Code Description Data Sharon rce(s) Supporting Document(s ) ABG TEMP 98.0 [facility] ID Date Data Source [id number] 02/08/2020 09:30:00 PM EDT [facility] Value Range Interpretation Code Description Data Sharon rce(s) Supporting Document(s ) FIO2 28 % [facility] ID Date Data Source [id number] 02/08/2020 09:30:00 PM EDT [facility] Value Range Interpretation Code Description Data Sharon rce(s) Supporting Document(s ) ABG BE 2.3 mmol/L [facility] ID Date Data Source [id number] 02/08/2020 09:30:00 PM EDT [facility] Value Range Interpretation Code Description Data Sharon rce(s) Supporting Document(s ) ABG O2SAT 97 % [facility] ID Date Data Source [id number] 02/08/2020 09:30:00 PM EDT [facility] Name Value Range Interpretation Code Description Data Sharon rce(s) Supporting Document(s ) ABG HCO3 30 mmol/L [facility] ID Date Data Source [id number] 02/08/2020 09:30:00 PM EDT [facility] Value Range Interpretation Code Description Data Sharon rce(s) Supporting Document(s ) ABG PO2 116 mm[Hg] [facility] ID Date Data Source [id number] 02/08/2020 09:30:00 PM EDT [facility] Value Range Interpretation Code Description Data Sharon rce(s) Supporting Document(s ) ABG PCO2 63 mm[Hg] [facility] ID Date Data Source [id number] 02/08/2020 09:30:00 PM EDT [facility] Value Range Interpretation Code Description Data Sharon rce(s) Supporting Document(s ) ABG PH 7.29 [facility] ID Date Data Source [id number] 02/08/2020 09:30:00 PM EDT [facility] Value Range Interpretation Code Description Data Sharon rce(s) Supporting Document(s ) ABG MODE 2LPM/NC [facility] 28% Hospital ID Date Data Source [id number] 02/08/2020 09:30:00 PM EDT [facility] Value Range Interpretation Code Description Data Supporting Source(s) Document(s ) ABG SITE Right [facility] ID Date Data Source [id number] 02/08/2020 09:30:00 PM EDT [facility] Value Range Interpretation Code Description Data Supporting Source(s) Document(s ) ABG SOURCE ARTERIAL [facility] ID Date Data Source [id number] 02/08/2020 09:30:00 PM EDT [facility] Value Range Interpretation Code Description Data Sharon rce(s) Supporting Document(s ) XAVIER TEST POSITIVE [facility] ID Date Data Source [id number] 02/08/2020 09:30:00 PM EDT [facility] Value Range Interpretation Code Description Data Sharon rce(s) Supporting Document(s ) ABG HCO3 30 mmol/L [facility] ID Date Data Source [id number] 02/08/2020 09:30:00 PM EDT [facility] Value Range Interpretation Code Description Data [facility] rce(s) Supporting Document(s ) ABG PO2 116 mm[Hg] [facility] ID Date Data Source [id number] 02/08/2020 09:30:00 PM EDT [facility] Value Range Interpretation Code Description Data Sharon rce(s) Supporting Document(s ) ABG PCO2 63 mm[Hg] [facility] ID Date Data Source [id number] 02/08/2020 09:30:00 PM EDT [facility] Value Range Interpretation Code Description Data Sharon rce(s) Supporting Document(s ) ABG PH 7.29 [facility] ID Date Data Source [id number] 02/08/2020 09:30:00 PM EDT [facility] Value Range Interpretation Code Description Data Sharon rce(s) Supporting Document(s ) ABG MODE 2LPM/NC [facility] ID Date Data Source [id number] 02/08/2020 09:30:00 PM EDT [facility] Name Value Range Interpretation Code Description Data Supporting Source(s) Document(s ) ABG SITE Right [facility] ID Date Data Source [id number] 02/08/2020 09:30:00 PM EDT [facility] Name Value Range Interpretation Code Description Data Supporting Source(s) Document(s ) ABG SOURCE ARTERIAL [facility] ID Date Data Source [id number] 02/08/2020 09:30:00 PM EDT [facility] Name Value Range Interpretation Code Description Data Sharon rce(s) Supporting Document(s ) XAVIER TEST POSITIVE [facility] ID Date Data Source [id number] 01/29/2020 05:01:00 PM EDT [facility] Name Value Range Interpretation Code Description Data Sharon rce(s) Supporting Document(s ) SARS-CoV-2 [facility] , RNA This lab was ordered by [facility] and reported by [employer]. ID Date Data Source [id number] 01/22/2020 12:35:00 PM EDT [facility] Name Value Range Interpretation Code Description Data Sharon rce(s) Supporting Document(s ) SARS-CoV-2 [facility] , RNA This lab was ordered by [facility] and reported by [facility]. ID Date Data Source [id number] 01/21/2020 01:31:00 PM EDT [facility] Name Value Range Interpretation Description Data Sup porting Code Source(s) Document(s ) Bacteria No growth [facility] identified in Hospital Blood by Culture ID Date Data Source [id number] 01/21/2020 12:08:00 PM EDT [facility] Name Value Range Interpretation Description Data Sup porting Code Source(s) Document(s ) Lactate 0.6 [facility] [Moles/volum mmol/L Hospital e] in Serum or Plasma ID Date Data Source [id number] [facility] Interpretation Description Data Sup porting Code Source(s) Document(s ) Lactate 0.6 [facility] [Moles/volum mmol/L Hospital e] in Serum or Plasma ID Date Data Source [id number] 01/21/2020 12[facility]03[facility] TEST PERFORMED BY [employer]ENS[employer] CHEMILUMINESCENCE METHOD. Name Value Range Interpretation Description Data Sup porting Code Source(s) Document(s ) Troponin 0.06 [facility] I.cardiac ng/mL Hospital [Mass/volume ] in Serum or Plasma ID Date Data Source [id number] 01/21/2020 12:03[facility] Value Range Interpretation Code Description Data Sharon rce(s) Supporting Document(s ) Lipase 20 U/L [facility] [Enzymatic Hospital activity/vo lume] in Serum or Plasma ID Date Data Source [id number] 01/21/2020 12:03:[facility] Name Value Range Interpretation Description Data Sup porting Code Source(s) Document(s ) Aspartate 25 U/L [facility] aminotransferase [facility] [Enzymatic Hospital activity/volume] in Serum or Plasma ID Date Data Source [id number] 01/21/2020 12:03:[facility] Name Value Range Interpretation Description Data Sup porting Code Source(s) Document(s ) Alanine < 8 U/L [facility] aminotransferase [place] [Enzymatic Hospital activity/volume] in Serum or Plasma ID Date Data Source [id number] 01/21/2020 12:03:00 PM EDT [facility] Name Value Range Interpretation Description Data Sup porting Code Source(s) Document(s ) Alkaline 94 U/L [facility] phosphatase [facility] [Enzymatic activity/volume ] in Serum or Plasma ID Date Data Source [id number] 01/21/2020 12:03:00 PM EDT [facility] Name Value Range Interpretation Description Data Sup porting Code Source(s) Document(s ) Bilirubin.t 0.4 mg/dL [facility] [Mass/volum e] in Serum or Plasma ID Date Data Source [id number] 01/21/2020 12:03:00 PM EDT [facility] Name Value Range Interpretation Code Description Data Sharon rce(s) Supporting Document(s ) Albumin/Glob 1.3 [facility] ulin [Mass Hospital Ratio] in Serum or Plasma ID Date Data Source [id number] [facility] Description Data Sup porting Code Source(s) Document(s ) Albumin 3.9 g/dL [facility] [Mass/volume Hospital ] in Serum or Plasma ID Date Data Source [id number] 01/21/2020 12:03:00 PM EDT [facility] Name Value Range Interpretation Description Data Sup porting Code Source(s) Document(s ) Protein 6.9 g/dL [facility] [Mass/volume Hospital ] in Serum or Plasma ID Date Data Source [id number] 01/21/2020 12:03:00 PM EDT [facility] Name Value Range Interpretation Description Data Sup porting Code Source(s) Document(s ) Calcium 8.7 mg/dL [facility] [Mass/volume Hospital ] in Serum or Plasma ID Date Data Source [id number] 01/21/2020 [facility] Interpret[facility] Code Description Data Sharon rce(s) Supporting Document(s ) Urea 6.0 [facility] nitrogen/Cre Hospital atinine [Mass Ratio] in Serum or Plasma ID Date Data Source [id number] 01/21/2020 12:03:00 PM EDT [facility] Name Value Range Interpretation Description Data Sup porting Code Source(s) Document(s ) Creatinine 4.2 mg/dL [facility] [Mass/volume] Hospital in Serum or Plasma ID Date Data Source [id number] 01/21/2020 12:03:00 PM EDT [facility] Name Value Range Interpretation Description Data Sup porting Code Source(s) Document(s ) Urea 25 mg/dL [facility] nitrogen [facility] [Mass/volume ] in Serum or Plasma ID Date Data Source [id number] 01/21/2020 12:03:00 PM EDT [facility] Name Value Range Interpretation Code Description Data Sharon rce(s) Supporting Document(s ) Anion gap in 13 [facility] Serum or [facility] Plasma ID Date Data Source [id number] 01/21/2020 12:03:00 PM EDT [facility] Name Value Range Interpretation Description Data Sup porting Code Source(s) Document(s ) Carbon 31 mmol/L [facility] dioxide, Hospital total [Moles/volu me] in Serum or Plasma ID Date Data Source [id number] 01/21/2020 12:03:00 PM EDT [facility] Name Value Range Interpretation Description Data Sup porting Code Source(s) Document(s ) Chloride 97 mmol/L [facility] [Moles/volum Hospital e] in Serum or Plasma ID Date Data Source [id number] 01/21/2020 12:03:00 PM EDT [facility] MODERATE HEMOLYSIS Name Value Range Interpretation Description Data Sup porting Code Source(s) Document(s ) Potassium 5.4 [facility] [Moles/volume mmol/L Hospital ] in Serum or Plasma ID Date Data Source [id number] 01/21/2020 12:03:00 PM [facility] Name Value Range Interpretation Description Data Sup porting Code Source(s) Document(s ) Sodium 136 mmol/L [facility]] in Serum or Plasma ID Date Data Source [id number] 01/21/2020 12:03:00 PM [facility] Name Value Range Interpretation Description Data Sup porting Code Source(s) Document(s ) Glucose 85 mg/dL [facility] [Mass/volume [facility] ] in Serum or Plasma ID Date Data Source [id number] 01/21/2020 12:03:00 PM [facility] THERAPEUTIC RANGES:UNFRACTIONATED HEPARI N THERAPY: 60-90 SECONDSARGATROBAN THERAPY: 49-99 SECONDS Name Value Range Interpretation Description Data Sup porting Code Source(s) Document(s ) aPTT in 35.3 s [facility] Platelet poor [facility] plasma by Coagulation assay ID Date Data Source [id number] 01/21/2020 12:03:00 PM [facility] HEMOLYZED SPECIMEN- HEMOLYSIS CAUSES KAREN RTENING OF PT AND APTT RESULTSTHERAPEUTIC RANGE FOR STANDARD ORALANTICOAGULANT THE RAPY: 2.0-3.0THERAPEUTIC RANGE FOR HIGH DOSE ORALANTICOAGULANT THERAPY (AUTOMOTIVE SERVICE TECHNICIAN AL HEARTVALVE REPLACEMENT): 2.5-3.5 Name Value Range Interpretation Description Data Sup porting Code Source(s) Document(s ) INR in Platelet 1.0 [facility] poor plasma by Hospital Coagulation assay ID Date Data Source [id number] 01/21/2020 12:03:00 PM [facility] Name Value Range Interpretation Description Data Sup porting Code Source(s) Document(s ) PT panel - 11.6 s [facility] Platelet poor [facility] plasma by Coagulation assay ID Date Data Source [id number] 01/21/2020 12:03:00 PM EDT [facility] Name Value Range Interpretation Code Description Data Supporting Source(s) Document(s ) NUCLEATED RBCS 0.0 % [facility] (AUTO Hospital DIFF%)DIS ID Date Data Source [id number] 01/21/2020 12:03:00 PM EDT [facility] Value Range Interpretation Description Data Sup porting Code Source(s) Document(s ) Differential MANUAL [facility] cell count Hospital method - Blood ID Date Data Source [id number] 01/21/2020 12:03:00 PM EDT [facility] Value Range Interpretation Code Description Data Sharon rce(s) Supporting Document(s ) Cells 100 [facility] Hospital Total [#] in Blood ID Date Data Source [id number] 01/21/2020 12:03:00 PM EDT [facility] Value Range Interpretation Code Description Data Supporting Source(s) Document(s ) PLATELET NORMAL [facility] Hospital ID Date Data Source [id number] 01/21/2020 12:03:00 PM EDT [facility] Value Range Interpretation Code Description Data Sharon rce(s) Supporting Document(s ) OVALOCYTES 1+ [facility] ID Date Data Source [id number] 01/21/2020 12:03:00 PM EDT [facility] Value Range Interpretation Code Description Data Sharon rce(s) Supporting Document(s ) HYPOCHROMIA 1+ [facility] ID Date Data Source [id number] 01/21/2020 12:03:00 PM EDT [facility] Value Range Interpretation Code Description Data Sharon rce(s) Supporting Document(s ) MACROCYTOSIS 1+ [facility] ID Date Data Source [id number] 01/21/2020 12:03:00 PM EDT [facility] Name Value Range Interpretation Description Data Sup porting Code Source(s) Document(s ) Basophils 0.04 [facility] [#/volume] in 10*3/uL Hospital Blood by Manual count ID Date Data Source [id number] 01/21/2020 12:03:00 PM EDT [facility] Name Value Range Interpretation Description Data Sup porting Code Source(s) Document(s ) Eosinophils 0.29 [facility] [#/volume] in 10*3/uL Hospital Blood by Manual count ID Date Data Source [id number] 01/21/2020 12:03:00 PM EDT [facility] Name Value Range Interpretation Description Data Sup porting Code Source(s) Document(s ) Monocytes 0.18 [facility] [#/volume] in 10*3/uL Hospital Blood by Manual count ID Date Data Source [id number] 01/21/2020 12:03:00 PM EDT [facility] Name Value Range Interpretation Description Data Sup porting Code Source(s) Document(s ) Lymphocytes 0.40 [facility] [#/volume] in 10*3/uL Hospital Blood by Manual count ID Date Data Source [id number] 01/21/2020 12:03:00 PM EDT [facility] Name Value Range Interpretation Description Data Sup porting Code Source(s) Document(s ) Neutrophils 2.70 [facility] [#/volume] in 10*3/uL Hospital Blood by Manual count ID Date Data Source [id number] 01/21/2020 12:03:00 PM EDT [facility] Name Value Range Interpretation Description Data Sup porting Code Source(s) Document(s ) Basophils/100 1 % [facility] leukocytes in Hospital Blood by Manual count ID Date Data Source [id number] 01/21/2020 12:03:00 PM EDT [facility] Value Range Interpretation Description Data Sup porting Code Source(s) Document(s ) Eosinophils/100 8 % [facility] leukocytes in Hospital Blood by Manual count ID Date Data Source [id number] 01/21/2020 12:03:00 PM EDT [facility] Value Range Interpretation Description Data Sup porting Code Source(s) Document(s ) Monocytes/100 5 % [facility] leukocytes in Hospital Blood by Manual count ID Date Data Source [id number] 01/21/2020 12:03:00 PM EDT [facility] Value Range Interpretation Description Data Sup porting Code Source(s) Document(s ) Lymphocytes/100 11 % [facility] leukocytes in [facility] Blood by Manual count ID Date Data Source [id number] 01/21/2020 12:03:00 PM EDT [facility] Value Range Interpretation Description Data Sup porting Code Source(s) Document(s ) Neutrophils/100 75 % [facility] leukocytes in Hospital Blood by Manual count ID Date Data Source [id number] 01/21/2020 12:03:00 PM EDT [facility] Value Range Interpretation Description Data Sup porting Code Source(s) Document(s ) Platelet mean 12.3 fL [facility] volume Hospital [Entitic volume] in Blood by Automated count ID Date Data Source [id number] 01/21/2020 12:03:00 PM EDT [facility] Value Range Interpretation Description Data Sup porting Code Source(s) Document(s ) Platelets 104 [facility] [#/volume] in 10*3/uL Hospital Blood by Automated count ID Date Data Source [id number] 01/21/2020 12:03:00 PM EDT [facility] Value Range Interpretation Description Data Sup porting Code Source(s) Document(s ) Erythrocyte 13.7 % [facility] distribution Hospital width [Ratio] by Automated count ID Date Data Source [id number] 01/21/2020 12:03:00 PM [facility] Value Range Interpretation Description Data Sup porting Code Source(s) Document(s ) Erythrocyte mean 29.6 [facility] corpuscular g/dL Hospital hemoglobin concentration [Mass/volume] by Automated count ID Date Data Source [id number] 01/21/2020 12:03:00 PM EDT [facility] Value Range Interpretation Description Data Sup porting Code Source(s) Document(s ) Erythrocyte 32.5 pg [facility] corpuscular hemoglobin [Entitic mass] by Automated count ID Date Data Source [id number] 01/21/2020 12:03:00 PM [facility] Value Range Interpretation Description Data Sup porting Code Source(s) Document(s ) Erythrocyte 110.0 fL [facility] corpuscular volume [Entitic volume] by Automated count ID Date Data Source [id number] 01/21/2020 12:03:00 PM [facility] Value Range Interpretation Description Data Sup porting Code Source(s) Document(s ) Hematocrit 31.8 % [facility] [Volume Hospital Fraction] of Blood by Automated count ID Date Data Source [id number] 01/21/2020 12:03:00 PM T [facility] Value Range Interpretation Description Data Sup porting Code Source(s) Document(s ) Hemoglobin 9.4 g/dL [facility] [Mass/volume] Hospital in Blood ID Date Data Source [id number] 01/21/2020 [facility] Description Data Sup porting Code Source(s) Document(s ) Erythrocytes 2.89 [facility] [#/volume] in 10*6/uL Hospital Blood by Automated count ID Date Data Source [id number] 01/21/2020 12:03:00 PM EDT [facility] Name Value Range Interpretation Description Data Sup porting Code Source(s) Document(s ) Leukocytes 3.6 [facility] [#/volume] in 10*3/uL Hospital Blood by Automated count ID Date Data Source [id number] 01/21/2020 12:03:00 PM EDT [facility] Name Value Range Interpretation Code Description Data Sharon rce(s) Supporting Document(s ) Lipase 20 U/L [facility] [Enzymatic Hospital activity/vo lume] in Serum or Plasma ID Date Data Source [id number] 01/21/2020 12:03:00 PM [facility] THERAPEUTIC RANGES:UNFRACTIONATED HEPARI N THERAPY: 60-90 SECONDSARGATROBAN THERAPY: 49-99 SECONDS Name Value Range Interpretation Description Data Sup porting Code Source(s) Document(s ) aPTT in 35.3 s [facility] Platelet poor [facility] plasma by Coagulation assay ID Date Data Source [id number] 01/21/2020 [facility]:03[facility]EM[facility]ED [facility]CIMEN- HEMOLYSIS CAUSES KAREN RTENING OF PT AND APTT RESULTSTHERAPEUTIC RANGE FOR STANDARD ORALANTICOAGULANT THE RAPY: 2.0-3.0THERAPEUTIC RANGE FOR HIGH DOSE ORALANTICOAGULANT THERAPY (AUTOMOTIVE SERVICE TECHNICIAN AL HEARTVALVE REPLACEMENT): 2.5-3.5 Name Value Range Interpretation Description Data Sup porting Code Source(s) Document(s ) INR in Platelet 1.0 [facility] poor plasma by Hospital Coagulation assay ID Date Data Source [id number] 01/21/2020 [facility]:03[facility] Value Range Interpretation Description Data Sup porting Code Source(s) Document(s ) PT panel - 11.6 s [facility] Platelet poor [facility] plasma by Coagulation assay ID Date Data Source [id number] 01/21/2020 12:03:00 PM EDT [facility] Value Range Interpretation Code Description Data Sharon rce(s) Supporting Document(s ) Cells 100 [facility] Total [#] in Blood ID Date Data Source [id number] 01/21/2020 12:03:00 PM EDT [facility] Value Range Interpretation Code Description Data Supporting Source(s) Document(s ) PLATELET NORMAL [facility] Hospital ID Date Data Source [id number] 01/21/2020 12:03:00 PM EDT [facility] Value Range Interpretation Code Description Data Sharon rce(s) Supporting Document(s ) OVALOCYTES 1+ [facility] ID Date Data Source [id number] 01/21/2020 12:03:00 PM EDT [facility] Value Range Interpretation Code Description Data Sharon rce(s) Supporting Document(s ) HYPOCHROMIA 1+ [facility] ID Date Data Source [id number] 01/21/2020 12:03:00 PM EDT [facility] Value Range Interpretation Code Description Data Sharon rce(s) Supporting Document(s ) MACROCYTOSIS 1+ [facility] ID Date Data Source [id number] 01/21/2020 12:03:00 PM EDT [facility] Value Range Interpretation Description Data Sup porting Code Source(s) Document(s ) Basophils 0.04 [facility] [#/volume] in 10*3/uL Hospital Blood by Manual count ID Date Data Source [id number] 01/21/2020 12:03:00 PM EDT [facility] Value Range Interpretation Description Data Sup porting Code Source(s) Document(s ) Eosinophils 0.29 [facility] [#/volume] in 10*3/uL Hospital Blood by Manual count ID Date Data Source [id number] 01/21/2020 12:03:00 PM EDT [facility] Name Value Range Interpretation Description Data Sup porting Code Source(s) Document(s ) Monocytes 0.18 [facility] [#/volume] in 10*3/uL Hospital Blood by Manual count ID Date Data Source [id number] 01/21/2020 12:03:00 PM EDT [facility] Name Value Range Interpretation Description Data Sup porting Code Source(s) Document(s ) Lymphocytes 0.40 [facility] [#/volume] in 10*3/uL Hospital Blood by Manual count ID Date Data Source [id number] 01/21/2020 12:03:00 PM EDT [facility] Value Range Interpretation Description Data Sup porting Code Source(s) Document(s ) Neutrophils 2.70 [facility] [#/volume] in 10*3/uL Hospital Blood by Manual count ID Date Data Source [id number] 01/21/2020 12:03:00 PM EDT [facility] Value Range Interpretation Description Data Sup porting Code Source(s) Document(s ) Basophils/100 1 % [facility] leukocytes in Hospital Blood by Manual count ID Date Data Source [id number] 01/21/2020 12:03:00 PM EDT [facility] Name Value Range Interpretation Description Data Sup porting Code Source(s) Document(s ) Eosinophils/100 8 % [facility] leukocytes in Hospital Blood by Manual count ID Date Data Source [id number] 01/21/2020 12:03:00 PM EDT [facility] Value Range Interpretation Description Data Sup porting Code Source(s) Document(s ) Monocytes/100 5 % [facility] leukocytes in Hospital Blood by Manual count ID Date Data Source [id number] 01/21/2020 12:03:00 PM EDT [facility] Name Value Range Interpretation Description Data Sup porting Code Source(s) Document(s ) Lymphocytes/100 11 % [facility] leukocytes in Hospital Blood by Manual count ID Date Data Source [id number] 01/21/2020 12:03:00 PM EDT [facility] Name Value Range Interpretation Description Data Sup porting Code Source(s) Document(s ) Neutrophils/100 75 % [facility] leukocytes in Hospital Blood by Manual count ID Date Data Source [id number] 01/17/2020 06:01:00 AM EDT [facility] Value Range Interpretation Description Data Sup porting Code Source(s) Document(s ) Eosinophils 0.25 [facility] [#/volume] in 10*3/uL Hospital Blood by Automated count ID Date Data Source [id number] 01/17/2020 06:01:00 AM EDT [facility] Value Range Interpretation Description Data Sup porting Code Source(s) Document(s ) Monocytes 0.48 [facility] [#/volume] in 10*3/uL Hospital Blood by Automated count ID Date Data Source [id number] 01/17/2020 06:01:00 AM EDT [facility] Value Range Interpretation Description Data Sup porting Code Source(s) Document(s ) Lymphocytes 0.82 [facility] [#/volume] in 10*3/uL Hospital Blood by Automated count ID Date Data Source [id number] 01/17/2020 06:01:00 AM EDT [facility] Value Range Interpretation Description Data Sup porting Code Source(s) Document(s ) Neutrophils 2.64 [facility] [#/volume] in 10*3/uL Hospital Blood by Automated count ID Date Data Source [id number] 01/17/2020 06:01:00 AM EDT [facility] Name Value Range Interpretation Description Data Sup porting Code Source(s) Document(s ) Nucleated 0.0 % [facility] erythrocytes/10 Hospital 0 leukocytes [Ratio] in Blood by Automated count ID Date Data Source [id number] 01/17/2020 06:01:00 AM EDT [facility] Name Value Range Interpretation Description Data Sup porting Code Source(s) Document(s ) Immature 0.2 % [facility] granulocytes/10 Hospital 0 leukocytes in Blood by Automated count ID Date Data Source [id number] 01/17/2020 06:01:00 AM EDT [facility] Value Range Interpretation Description Data Sup porting Code Source(s) Document(s ) Basophils/100 0.9 % [facility] leukocytes in Hospital Blood by Automated count ID Date Data Source [id number] 01/17/2020 06:01:00 AM EDT [facility] Value Range Interpretation Description Data Sup porting Code Source(s) Document(s ) Eosinophils/100 5.9 % [facility] leukocytes in Hospital Blood by Automated count ID Date Data Source [id number] 01/17/2020 06:01:00 AM EDT [facility] Value Range Interpretation Description Data Sup porting Code Source(s) Document(s ) Monocytes/100 11.3 % [facility] leukocytes in Hospital Blood by Automated count ID Date Data Source [id number] 01/17/2020 06:01:00 AM EDT [facility] Value Range Interpretation Description Data Sup porting Code Source(s) Document(s ) Lymphocytes/10 19.3 % [facility] 0 leukocytes Hospital in Blood by Automated count ID Date Data Source [id number] 01/17/2020 06:01:00 AM EDT [facility] Name Value Range Interpretation Description Data Sup porting Code Source(s) Document(s ) Neutrophils/10 62.4 % [facility] 0 leukocytes Hospital in Blood by Automated count ID Date Data Source [id number] 01/17/2020 06:01:00 AM [facility] REVIEWED BY RICH RILEY MD Name Value Range Interpretation Description Data Sup porting Code Source(s) Document(s ) ENEDINA FORRESTER NO White INTERPRETATION MONOCLONAL [facility] IDENT [facility] ID Date Data Source [id number] [facility] Interpret[facility] Description Data Sup porting Code Source(s) Document(s ) IgM 143 mg/dL [facility] [[facility] e] in Serum or Plasma ID Date Data Source [id number] 01/17/2020 06:01:00 AM [facility] Name Value Range Interpretation Description Data Sup porting Code Source(s) Document(s ) IgA 341 mg/dL [facility] [[facility] e] in Serum or Plasma ID Date Data Source [id number] 01/17/2020 06:01:00 AM [facility] Name Value Range Interpretation Description Data Sup porting Code Source(s) Document(s ) IgG 1250 mg/dL [facility] [[facility] e] in Serum or Plasma ID Date Data Source [id number] 01/17/2020 06:01:00 AM [facility] Name Value Range Interpretation Description Data Sup porting Code Source(s) Document(s ) Ferritin 913.0 [facility] [Mass/volume ng/mL Hospital ] in Serum or Plasma ID Date Data Source [id number] [facility] Interpretation Description Data Sup porting Code Source(s) Document(s ) Folate 9.5 ng/mL [facility] [[facility] e] in Serum or Plasma ID Date Data Source [id number] 01/17/2020 06:01:00 AM EDT [facility] Name Value Range Interpretation Description Data Sup porting Code Source(s) Document(s ) Cobalamin 1554 [facility] (Vitamin B12) pg/mL Hospital [Mass/volume] in Serum or Plasma ID Date Data Source [id number] 01/17/2020 06:01:00 AM EDT [facility] Name Value Range Interpretation Description Data Sup porting Code Source(s) Document(s ) Iron saturation 25 % [facility] [[facility] Fraction] Hospital in Serum or Plasma ID Date Data Source [id number] 01/17/2020 06:01:00 AM EDT [facility] Name Value Range Interpretation Description Data Sup porting Code Source(s) Document(s ) UNSAT IRON 135 ug/dL [facility] B[facility]ING [facility] CAPACITY ID Date Data Source [id number] 01/17/2020 06:01:00 AM EDT [facility] Name Value Range Interpretation Description Data Sup porting Code Source(s) Document(s ) Iron binding 180 ug/dL [facility] capacity [facility] [Mass/volume ] in Serum or Plasma ID Date Data Source [id number] 01/17/2020 06:01:00 AM EDT [facility] Name Value Range Interpretation Code Description Data Supporting Source(s) Document(s ) Iron 45 ug/dL [facility] [[facility] e] in Serum or Plasma ID Date Data Source [id number] 01/17/2020 06:01:00 AM EDT [facility] Name Value Range Interpretation Description Data Sup porting Code Source(s) Document(s ) Phosphate 8.8 mg/dL [facility] [Mass[facility]volume] Hospital in Serum or Plasma ID Date Data Source [id number] 01/17[facility]2020 [facility] Range Interpretation Description Data Sup porting Code Source(s) Document(s ) Magnesium 2.2 mg/dL [facility] [Mass[facility]volume] Hospital in Serum or Plasma ID Date Data Source [id number] 01/17/2020 06:01:00 AM EDT [facility] Name Value Range Interpretation Description Data Sup porting Code Source(s) Document(s ) Aspartate 10 U/L [facility] aminotransferase [facility] [Enzymatic Hospital activity/volume] in Serum or Plasma ID Date Data Source [id number] 01/17/2020 06:01:00 AM [facility] Name Value Range Interpretation Description Data Sup porting Code Source(s) Document(s ) Alanine < 8 U/L [place] aminotransferase [facility] [Enzymatic Hospital activity/volume] in Serum or Plasma ID Date Data Source [id number] 01/17/2020 06:01:00 AM [facility] Name Value Range Interpretation Description Data Sup porting Code Source(s) Document(s ) Alkaline 87 U/L [facility] phosphatase Hospital [Enzymatic activity/volume ] in Serum or Plasma ID Date Data Source [id number] 01/17/2020 06:01:00 AM [facility] Name Value Range Interpretation Description Data Sup porting Code Source(s) Document(s ) Bilirubin.t 0.2 mg/dL [facility] [Mass/volum e] in Serum or Plasma ID Date Data Source [id number] 01/17/2020 06:01:00 AM [facility] REVIEWED BY RICH RILEY MD Name Value Range Interpretation Description Data Sup porting Code Source(s) Document(s ) SPE MD NORMAL [facility] INTP/ABN PATTERN Hospital REFLEX TO SIF ID Date Data Source [id number] 01/17/2020 06:01:00 AM EDT [facility] Name Value Range Interpretation Description Data Sup porting Code Source(s) Document(s ) GAMMA 1.2 g/dL [facility] GLOBULIN Hospital ID Date Data Source [id number] 01/17/2020 06:01:00 AM EDT [facility] Name Value Range Interpretation Description Data Sup porting Code Source(s) Document(s ) BETA 0.8 g/dL [facility] GLOBULIN Hospital ID Date Data Source [id number] 01/17/2020 06:01:00 AM EDT [facility] Name Value Range Interpretation Description Data Sup porting Code Source(s) Document(s ) ALPHA-2 0.8 g/dL [facility] GLOBULIN Hospital ID Date Data Source [id number] 01/17/2020 06:01:00 AM EDT [facility] Name Value Range Interpretation Description Data Sup porting Code Source(s) Document(s ) ALPHA-1 0.2 g/dL [facility] GLOBULIN Hospital ID Date Data Source [id number] 01/17/2020 06:01:00 AM EDT [facility] Name Value Range Interpretation Description Data Sup porting Code Source(s) Document(s ) ALBUMIN 2.9 g/dL [facility] (GM/DL) Hospital ID Date Data Source [id number] 01/17/2020 06:01:00 AM EDT [facility] Name Value Range Interpretation Code Description Data Supporting Source(s) Document(s ) A:G RATIO 1.0 [facility] (ELECTROPH {ratio} Hospital ORESIS) ID Date Data Source [id number] 01/17/2020 06:01:00 AM EDT [facility] Name Value Range Interpretation Code Description Data Supporting Source(s) Document(s ) GAMMA 19.5 % [facility] GLOBULIN % Hospital ID Date Data Source [id number] 01/17/2020 06:01:00 AM EDT [facility] Name Value Range Interpretation Code Description Data Supporting Source(s) Document(s ) BETA GLOBULIN 13.6 % [facility] % Hospital ID Date Data Source [id number] 01/17/2020 06:01:00 AM EDT [facility] Name Value Range Interpretation Code Description Data Sharon rce(s) Supporting Document(s ) ALPHA-2 % 14.0 % [facility] ID Date Data Source [id number] 01/17/2020 06:01:00 AM EDT [facility] Name Value Range Interpretation Code Description Data Sharon rce(s) Supporting Document(s ) ALPHA-1 % 4.1 % [facility] ID Date Data Source [id number] 01/17/2020 06:01:00 AM EDT [facility] Name Value Range Interpretation Code Description Data Sharon rce(s) Supporting Document(s ) ALBUMIN 48.8 % [facility] (SPE) % Hospital ID Date Data Source [id number] 01/17/2020 06:01:00 AM EDT [facility] Name Value Range Interpretation Description Data Sup porting Code Source(s) Document(s ) Ferritin 913.0 [facility] [Mass/volume ng/mL Hospital ] in Serum or Plasma ID Date Data Source [id number] 01/17/2020 06:01:00 AM EDT [facility] Name Value Range Interpretation Description Data Sup porting Code Source(s) Document(s ) Folate 9.5 ng/mL [facility] [[facility] e] in Serum or Plasma ID Date Data Source [id number] 01/17/2020 06:01:00 AM EDT [facility] Name Value Range Interpretation Description Data Sup porting Code Source(s) Document(s ) Cobalamin 1554 [facility] (Vitamin B12) pg/mL Hospital [Mass/volume] in Serum or Plasma ID Date Data Source [id number] 01/17/2020 06:01:00 AM EDT [facility] Name Value Range Interpretation Description Data Sup porting Code Source(s) Document(s ) Iron saturation 25 % [facility] [[facility] Fraction] [facility] in Serum or Plasma ID Date Data Source [id number] 01/17/2020 06:01:00 AM EDT [facility] Name Value Range Interpretation Description Data Sup porting Code Source(s) Document(s ) UNSAT IRON 135 ug/dL [facility] B[facility]ING [facility] CAPACITY ID Date Data Source [id number] 01/17/2020 06:01:00 AM EDT [facility] Name Value Range Interpretation Description Data Sup porting Code Source(s) Document(s ) Iron binding 180 ug/dL [facility] capacity [facility] [Mass/volume ] in Serum or Plasma ID Date Data Source [id number] 01/17/2020 06:01:00 AM EDT [facility] Name Value Range Interpretation Code Description Data Supporting Source(s) Document(s ) Iron 45 ug/dL [facility] [[facility] e] in Serum or Plasma ID Date Data Source [id number] 01/17/2020 06:01:00 AM EDT [facility] Name Value Range Interpretation Description Data Sup porting Code Source(s) Document(s ) Phosphate 8.8 mg/dL [facility] [Mass[facility]volume] Hospital in Serum or Plasma ID Date Data Source [id number] 01/17/2020 06:01:00 AM [facility] Name Value Range Interpretation Description Data Sup porting Code Source(s) Document(s ) Magnesium 2.2 mg/dL [facility] [Mass[facility]volume] Hospital in Serum or Plasma ID Date Data Source [id number] 01/17/2020 06:01:00 AM [facility] UNITS ARE IN ml/min/1.73m2.IF PATIENT IS -GUAMANIAN, MULTIPLY REPORTED RESULT BY 1.21. Name Value Range Interpretation Description Data Sup porting Code Source(s) Document(s ) Glomerular 7 mL/min [facility] filtration [facility] rate/1.73 sq M.predicted [Volume Rate/Area] in Serum or Plasma by Creatinine-bas ed formula (MDRD) ID Date Data Source [id number] 01/17/2020 06:01:00 AM [facility] Name Value Range Interpretation Code Description Data Sharon rce(s) Supporting Document(s ) Immature 5.4 % [facility] reticulocytes Hospital /Reticulocyte s.total in Blood ID Date Data Source [id number] 01/17/2020 06:01:00 AM [facility] Name Value Range Interpretation Description Data Sup porting Code Source(s) Document(s ) Reticulocytes 0.06 [facility] [#/volume] in 10*6/uL Hospital Blood by Automated count ID Date Data Source [id number] 01/17/2020 06:01:00 AM [facility] Name Value Range Interpretation Description Data Sup porting Code Source(s) Document(s ) Reticulocytes/10 2.08 % [facility] 0 erythrocytes Hospital in Blood by Automated count ID Date Data Source [id number] 01/17/2020 06:01:00 AM [facility] REVIEWED BY RICH RILEY MD Name Value Range Interpretation Description Data Sup porting Code Source(s) Document(s ) ENEDINA FORRESTER NO White INTERPRETATION MONOCLONAL [facility] IDENT [facility] ID Date Data Source [id number] 01/17/2020 06:01:00 AM EDT [facility] Name Value Range Interpretation Description Data Sup porting Code Source(s) Document(s ) IgM 143 mg/dL [facility] [[facility] e] in Serum or Plasma ID Date Data Source [id number] 01/17/2020 06:01:00 AM EDT [facility] Value Range Interpretation Description Data Sup porting Code Source(s) Document(s ) IgA 341 mg/dL [facility] [[facility] e] in Serum or Plasma ID Date Data Source [id number] 01/17/2020 06:01:00 AM EDT [facility] Value Range Interpretation Description Data Sup porting Code Source(s) Document(s ) IgG 1250 mg/dL [facility] [[facility] e] in Serum or Plasma ID Date Data Source [id number] 01/17/2020 06:01:00 AM EDT [facility] Name Value Range Interpretation Description Data Sup porting Code Source(s) Document(s ) Ferritin 913.0 [facility] [Mass/volume ng/mL Hospital ] in Serum or Plasma ID Date Data Source [id number] 01/17/2020 06:01:00 AM EDT [facility] Value Range Interpretation Description Data Sup porting Code Source(s) Document(s ) Folate 9.5 ng/mL [facility] [[facility] e] in Serum or Plasma ID Date Data Source [id number] 01/17/2020 06:01:00 AM EDT [facility] Value Range Interpretation Description Data Sup porting Code Source(s) Document(s ) Cobalamin 1554 [facility] (Vitamin B12) pg/mL Hospital [Mass/volume] in Serum or Plasma ID Date Data Source [id number] 01/17/2020 06:01:00 AM EDT [facility] Name Value Range Interpretation Description Data Sup porting Code Source(s) Document(s ) Iron saturation 25 % [facility] [[facility] Fraction] [facility] in Serum or Plasma ID Date Data Source [id number] 01/17/2020 06:01:00 AM EDT [facility] Name Value Range Interpretation Description Data Sup porting Code Source(s) Document(s ) UNSAT IRON 135 ug/dL [facility] B[facility]ING [facility] CAPACITY ID Date Data Source [id number] 01/17/2020 06:01:00 AM EDT [facility] Name Value Range Interpretation Description Data Sup porting Code Source(s) Document(s ) Iron binding 180 ug/dL [facility] capacity [facility] [Mass/volume ] in Serum or Plasma ID Date Data Source [id number] 01/17/2020 06:01:00 AM EDT [facility] Name Value Range Interpretation Code Description Data Supporting Source(s) Document(s ) Iron 45 ug/dL [facility] [[facility] e] in Serum or Plasma ID Date Data Source [id number] 01/17/2020 06:01:00 AM EDT [facility] Name Value Range Interpretation Description Data Sup porting Code Source(s) Document(s ) Phosphate 8.8 mg/dL [facility] [Mass[facility]] Hospital in Serum or Plasma ID Date Data Source [id number] 01/17/2020 06:01:00 AM EDT [facility] Name Value Range Interpretation Description Data Sup porting Code Source(s) Document(s ) Magnesium 2.2 mg/dL [facility] [Mass[facility]] Hospital in Serum or Plasma ID Date Data Source [id number] 01/17/2020 06:01:00 AM [facility] UNITS ARE IN ml/min/1.73m2.IF PATIENT IS -GUAMANIAN, MULTIPLY REPORTED RESULT BY 1.21. Name Value Range Interpretation Description Data Sup porting Code Source(s) Document(s ) Glomerular 7 mL/min [facility] filtration [facility] rate/1.73 sq M.predicted [Volume Rate/Area] in Serum or Plasma by Creatinine-bas ed formula (MDRD) ID Date Data Source [id number] 01/17/2020 06:01:00 AM [facility] Name Value Range Interpretation Code Description Data Sharon rce(s) Supporting Document(s ) Immature 5.4 % [facility] reticulocytes Hospital /Reticulocyte s.total in Blood ID Date Data Source [id number] 01/17/2020 06:01:00 AM [facility] Name Value Range Interpretation Description Data Sup porting Code Source(s) Document(s ) Reticulocytes 0.06 [facility] [#/volume] in 10*6/uL Hospital Blood by Automated count ID Date Data Source [id number] 01/17/2020 06:01:00 AM [facility] Name Value Range Interpretation Description Data Sup porting Code Source(s) Document(s ) Reticulocytes/10 2.08 % [facility] 0 erythrocytes Hospital in Blood by Automated count ID Date Data Source [id number] 01/17/2020 06:01:00 AM [facility] Name Value Range Interpretation Description Data Sup porting Code Source(s) Document(s ) Immature 0.01 [facility] granulocytes 10*3/uL Hospital [#/volume] in Blood by Automated count ID Date Data Source [id number] 01/17/2020 06:01:00 AM [facility] Name Value Range Interpretation Description Data Sup porting Code Source(s) Document(s ) Basophils 0.04 [facility] [#/volume] in 10*3/uL Hospital Blood by Automated count ID Date Data Source [id number] 01/17/2020 06:01:00 AM [facility] REVIEWED BY RICH RILEY MD Name Value Range Interpretation Description Data Sup porting Code Source(s) Document(s ) ENEDINA FORRESTER NO White INTERPRETATION [facility] ID Date Data Source [id number] 01/17/2020 06:01:00 AM EDT [facility] Value Range Interpretation Description Data Sup porting Code Source(s) Document(s ) IgM 143 mg/dL [facility] [[facility] e] in Serum or Plasma ID Date Data Source [id number] 01/17/2020 06:01:00 AM [facility] Value Range Interpretation Description Data Sup porting Code Source(s) Document(s ) IgA 341 mg/dL [facility] [[facility] e] in Serum or Plasma ID Date Data Source [id number] 01/17/2020 06:01:00 AM [facility] Value Range Interpretation Description Data Sup porting Code Source(s) Document(s ) IgG 1250 mg/dL [facility] [[facility] e] in Serum or Plasma ID Date Data Source [id number] 01/17/2020 06:01:00 AM EDT [facility] Name Value Range Interpretation Code Description Data Sharon rce(s) Supporting Document(s ) Albumin/Glob 1.7 [facility] ulin [Mass Hospital Ratio] in Serum or Plasma ID Date Data Source [id number] [facility] Description Data Sup porting Code Source(s) Document(s ) Albumin 3.7 g/dL [facility] [Mass[facility]volume [facility] ] in Serum or Plasma ID Date Data Source [id number] 01/17/2020 06:01:00 AM T [facility] Name Value Range Interpretation Description Data Sup porting Code Source(s) Document(s ) Protein 5.9 g/dL [facility] [[facility] ] in Serum or Plasma ID Date Data Source [id number] 01/17/2020 06:01:00 AM EDT [facility] Name Value Range Interpretation Description Data Sup porting Code Source(s) Document(s ) Calcium 7.6 mg/dL [facility] [[facility] ] in Serum or Plasma ID Date Data Source [id number] 01/17/2020 06:01:00 AM [facility] UNITS ARE IN ml/min/1.73m2.IF PATIENT IS -GUAMANIAN, MULTIPLY REPORTED RESULT BY 1.21. Name Value Range Interpretation Description Data Sup porting Code Source(s) Document(s ) Glomerular 7 mL/min [facility] filtration [facility] rate/1.73 sq M.predicted [Volume Rate/Area] in Serum or Plasma by Creatinine-bas ed formula (MDRD) ID Date Data Source [id number] 01/17/2020 06:01:00 AM [facility] Name Value Range Interpretation Code Description Data Sharon rce(s) Supporting Document(s ) Urea 9.1 [facility] nitrogen/Cre Hospital atinine [Mass Ratio] in Serum or Plasma ID Date Data Source [id number] 01/17/2020 06:01:00 AM [facility] NOTIFICATION AND READ BACK OF CRITICAL R ESULTS TO TERELL SMITH RN-5E AT 0808 ON 01/17/20 BY Yina Shah.REPORTED CRITICAL VALUES SHOULD BE INTERPRETED WITHIN CLINICAL CONTEXT. Name Value Range Interpretation Description Data Sup porting Code Source(s) Document(s ) Creatinine 6.3 mg/dL [facility] [Mass/volume] Hospital in Serum or Plasma ID Date Data Source [id number] 01/17/2020 06:01:00 AM EDT [facility] Name Value Range Interpretation Description Data Sup porting Code Source(s) Document(s ) Urea 57 mg/dL [facility] nitrogen [facility] [Mass/volume ] in Serum or Plasma ID Date Data Source [id number] 01/17/2020 06:01:00 AM EDT [facility] Name Value Range Interpretation Code Description Data Sharon rce(s) Supporting Document(s ) Anion gap in 15 [facility] Serum or Hospital Plasma ID Date Data Source [id number] 01/17/2020 06:01:00 AM EDT [facility] Name Value Range Interpretation Description Data Sup porting Code Source(s) Document(s ) Carbon 28 mmol/L [facility] dioxide, Hospital total [Moles/volu me] in Serum or Plasma ID Date Data Source [id number] 01/17/2020 06:01:00 AM EDT [facility] Name Value Range Interpretation Description Data Sup porting Code Source(s) Document(s ) Chloride 99 mmol/L [facility] [Moles/volum Hospital e] in Serum or Plasma ID Date Data Source [id number] 01/17/2020 06:01:00 AM EDT [facility] Name Value Range Interpretation Description Data Sup porting Code Source(s) Document(s ) Potassium 4.4 [facility] [Moles/volume mmol/L Hospital ] in Serum or Plasma ID Date Data Source [id number] 01/17/2020 06:01:00 AM EDT [facility] Name Value Range Interpretation Description Data Sup porting Code Source(s) Document(s ) Sodium 138 mmol/L [facility] [Moles/volu Hospital me] in Serum or Plasma ID Date Data Source [id number] 01/17/2020 06:01:00 AM EDT [facility] Name Value Range Interpretation Description Data Sup porting Code Source(s) Document(s ) Glucose 87 mg/dL [facility] [Mass/volume Hospital ] in Serum or Plasma ID Date Data Source [id number] 01/17/2020 06:01:00 AM EDT [facility] Value Range Interpretation Code Description Data Sharon rce(s) Supporting Document(s ) Immature 5.4 % [facility] reticulocytes Hospital /Reticulocyte s.total in Blood ID Date Data Source [id number] 01/17/2020 [facility] Interpret[facility] Description Data Sup porting Code Source(s) Document(s ) Reticulocytes 0.06 [facility] [#/volume] in 10*6/uL Hospital Blood by Automated count ID Date Data Source [id number] 01/17/2020 06:01:00 AM EDT [facility] Name Value Range Interpretation Description Data Sup porting Code Source(s) Document(s ) Reticulocytes/10 2.08 % [facility] 0 erythrocytes Hospital in Blood by Automated count ID Date Data Source [id number] 01/17/2020 06:01:00 AM EDT [facility] Value Range Interpretation Description Data Sup porting Code Source(s) Document(s ) Differential AUTOMATED [facility] cell count Hospital method - Blood ID Date Data Source [id number] 01/17/2020 06:01:00 AM EDT [facility] Name Value Range Interpretation Description Data Sup porting Code Source(s) Document(s ) Immature 0.01 [facility] granulocytes 10*3/uL Hospital [#/volume] in Blood by Automated count ID Date Data Source [id number] 01/17/2020 06:01:00 AM EDT [facility] Name Value Range Interpretation Description Data Sup porting Code Source(s) Document(s ) Basophils 0.04 [facility] [#/volume] in 10*3/uL Hospital Blood by Automated count ID Date Data Source [id number] 01/17/2020 06:01:00 AM EDT [facility] Name Value Range Interpretation Description Data Sup porting Code Source(s) Document(s ) Eosinophils 0.25 [facility] [#/volume] in 10*3/uL Hospital Blood by Automated count ID Date Data Source [id number] 01/17/2020 06:01:00 AM EDT [facility] Value Range Interpretation Description Data Sup porting Code Source(s) Document(s ) Monocytes 0.48 [facility] [#/volume] in 10*3/uL Hospital Blood by Automated count ID Date Data Source [id number] 01/17/2020 06:01:00 AM EDT [facility] Name Value Range Interpretation Description Data Sup porting Code Source(s) Document(s ) Lymphocytes 0.82 [facility] [#/volume] in 10*3/uL Hospital Blood by Automated count ID Date Data Source [id number] 01/17/2020 06:01:00 AM T [facility] Name Value Range Interpretation Description Data Sup porting Code Source(s) Document(s ) Neutrophils 2.64 [facility] [#/volume] in 10*3/uL Hospital Blood by Automated count ID Date Data Source [id number] [facility] Value Range Interpretation Description Data Sup porting Code Source(s) Document(s ) Nucleated 0.0 % [facility] erythrocytes/10 [facility] 0 leukocytes [Ratio] in Blood by Automated count ID Date Data Source [id number] 01/17/2020 06:01:00 AM EDT [facility] Name Value Range Interpretation Description Data Sup porting Code Source(s) Document(s ) Immature 0.2 % [facility] granulocytes/10 [facility] 0 leukocytes in Blood by Automated count ID Date Data Source [id number] 01/17/2020 06:01:00 AM EDT [facility] Name Value Range Interpretation Description Data Sup porting Code Source(s) Document(s ) Basophils/100 0.9 % [facility] leukocytes in Hospital Blood by Automated count ID Date Data Source [id number] 01/17/2020 06:01:00 AM EDT [facility] Value Range Interpretation Description Data Sup porting Code Source(s) Document(s ) Eosinophils/100 5.9 % [facility] leukocytes in Hospital Blood by Automated count ID Date Data Source [id number] 01/17/2020 06:01:00 AM EDT [facility] Value Range Interpretation Description Data Sup porting Code Source(s) Document(s ) Monocytes/100 11.3 % [facility] leukocytes in Hospital Blood by Automated count ID Date Data Source [id number] 01/17/2020 06:01:00 AM EDT [facility] Value Range Interpretation Description Data Sup porting Code Source(s) Document(s ) Lymphocytes/10 19.3 % [facility] 0 leukocytes Hospital in Blood by Automated count ID Date Data Source [id number] 01/17/2020 06:01:00 AM EDT [facility] Name Value Range Interpretation Description Data Sup porting Code Source(s) Document(s ) Neutrophils/10 62.4 % [facility] 0 leukocytes Hospital in Blood by Automated count ID Date Data Source [id number] 01/17/2020 06:01:00 AM EDT [facility] Name Value Range Interpretation Description Data Sup porting Code Source(s) Document(s ) Platelet mean 11.9 fL [facility] volume [facility] [Entitic volume] in Blood by Automated count ID Date Data Source [id number] 01/17/2020 06:01:00 AM [facility] Value Range Interpretation Description Data Sup porting Code Source(s) Document(s ) Platelets 87 [facility] [#/volume] in 10*3/uL Hospital Blood by Automated count ID Date Data Source [id number] [facility] Interpret[facility] Description Data Sup porting Code Source(s) Document(s ) Erythrocyte 14.2 % [facility] width [Ratio] by Automated count ID Date Data Source [id number] 01/17/2020 06:01:00 AM [facility] Value Range Interpretation Description Data Sup porting Code Source(s) Document(s ) Erythrocyte mean 31.6 [facility] corpuscular g/dL Hospital hemoglobin concentration [Mass/volume] by Automated count ID Date Data Source [id number] 01/17/2020 06:01:00 AM [facility] Value Range Interpretation Description Data Sup porting Code Source(s) Document(s ) Erythrocyte 33.0 pg [facility] corpuscular hemoglobin [Entitic mass] by Automated count ID Date Data Source [id number] 01/17/2020 06:01:00 AM [facility] Value Range Interpretation Description Data Sup porting Code Source(s) Document(s ) Erythrocyte 104.3 fL [facility] corpuscular volume [Entitic volume] by Automated count ID Date Data Source [id number] 01/17/2020 06:01:00 AM [facility] Value Range Interpretation Description Data Sup porting Code Source(s) Document(s ) Hematocrit 29.1 % [facility] [Volume Hospital Fraction] of Blood by Automated count ID Date Data Source [id number] 01/17/2020 06:01:00 AM EDT [facility] Name Value Range Interpretation Description Data Sup porting Code Source(s) Document(s ) Hemoglobin 9.2 g/dL [facility] [Mass/volume] Hospital in Blood ID Date Data Source [id number] 01/17/2020 06:01:00 AM EDT [facility] Name Value Range Interpretation Description Data Sup porting Code Source(s) Document(s ) Erythrocytes 2.79 [facility] [#/volume] in 10*6/uL Hospital Blood by Automated count ID Date Data Source [id number] 01/17/2020 06:01:00 AM EDT [facility] Name Value Range Interpretation Description Data Sup porting Code Source(s) Document(s ) Leukocytes 4.2 [facility] [#/volume] in 10*3/uL Hospital Blood by Automated count ID Date Data Source [id number] 01/16/2020 06:54:00 AM EDT [facility] Name Value Range Interpretation Description Data Sup porting Code Source(s) Document(s ) Hepatitis B NON-REACT [facility] virus surface [facility] [Presence] in Serum ID Date Data Source [id number] 01/16/2020 06:54:00 AM EDT [facility] Name Value Range Interpretation Code Description Data Supporting Source(s) Document(s ) NUCLEATED RBCS 0.0 % [facility] (AUTO Hospital DIFF%)DIS ID Date Data Source [id number] 01/16/2020 06:54:00 AM EDT [facility] Name Value Range Interpretation Description Data Sup porting Code Source(s) Document(s ) Hepatitis B NON-REACT [facility] virus surface [facility] Ag [Presence] in Serum ID Date Data Source [id number] 01/16/2020 06:54:00 AM EDT [facility] Name Value Range Interpretation Description Data Sup porting Code Source(s) Document(s ) Hepatitis B NON-REACT [facility] virus surface [facility] Ag [Presence] in Serum ID Date Data Source [id number] 01/15/2020 06:16:00 PM EDT [facility] Name Value Range Interpretation Description Data Sup porting Code Source(s) Document(s ) Natriuretic 913.3 [facility] peptide B pg/mL Hospital [Mass/volume] in Serum or Plasma ID Date Data Source [id number] 01/15/2020 06:16:00 PM [facility] TEST PERFORMED BY [employer] SENS[facility] [facility] CHEMILUMINESCENCE METHOD. Name Value Range Interpretation Description Data Sup porting Code Source(s) Document(s ) Troponin 0.04 [facility] I.cardiac ng/mL Hospital [Mass/volume ] in Serum or Plasma ID Date Data Source [id number] 01/15/2020 06:16:00 PM [facility] Name Value Range Interpretation Code Description Data Supporting Source(s) Document(s ) Creatine 78 U/L [facility] kinase Hospital [Enzymatic activity/volu me] in Serum or Plasma ID Date Data Source [id number] 01/15/2020 [facility] THERAPEUTIC RANGES:UNFRACTIONATED HEPARI N THERAPY: 60-90 SECONDSARGATROBAN THERAPY: 49-99 SECONDS Name Value Range Interpretation Description Data Sup porting Code Source(s) Document(s ) aPTT in 35.1 s [facility] Platelet poor [facility] plasma by Coagulation assay ID Date Data Source [id number] 01/15/2020 06:16:00 PM EDT [facility] THERAPEUTIC RANGE FOR STANDARD ORALANTIC OAGULANT THERAPY: 2.0-3.0THERAPEUTIC RANGE FOR HIGH DOSE ORALANTICOAGULANT THERAPY (MECHANICAL HEARTVALVE REPLACEMENT): 2.5-3.5 Name Value Range Interpretation Description Data Sup porting Code Source(s) Document(s ) INR in Platelet 1.0 [facility] poor plasma by Hospital Coagulation assay ID Date Data Source [id number] 01/15/2020 06:16:00 PM EDT [facility] Name Value Range Interpretation Description Data Sup porting Code Source(s) Document(s ) PT panel - 11.9 s [facility] Platelet poor [facility] plasma by Coagulation assay ID Date Data Source [id number] 01/15/2020 06:16:00 PM EDT [facility] Name Value Range Interpretation Description Data Sup porting Code Source(s) Document(s ) Natriuretic 913.3 [facility] peptide B pg/mL Hospital [Mass/volume] in Serum or Plasma ID Date Data Source [id number] 01/15/2020 06[facility]16:[facility] Name Value Range Interpretation Code Description Data Supporting Source(s) Document(s ) Creatine 78 U/L [facility] kinase [facility] [Enzymatic activity/volu me] in Serum or Plasma ID Date Data Source [id number] 01/15/2020 06:16:[facility] Name Value Range Interpretation Code Description Data Supporting Source(s) Document(s ) Creatine 78 U/L [facility] kinase [facility] [Enzymatic activity/volu me] in Serum or Plasma ID Date Data Source [id number] 01/14/2020 07:48:[facility] Name Value Range Interpretation Code Description Data Sharon rce(s) Supporting Document(s ) Cells 100 [facility] Total [#] in Blood ID Date Data Source [id number] 01/14/2020 07:48:00 AM EDT [facility] Name Value Range Interpretation Description Data Sup porting Code Source(s) Document(s ) Platelet PRESENT [facility] finding [Identifier] in Blood ID Date Data Source [id number] 01/14/2020 07:48:00 AM EDT [facility] Name Value Range Interpretation Code Description Data Sharon rce(s) Supporting Document(s ) TARGET CELLS [facility] ID Date Data Source [id number] 01/14/2020 07:48:00 AM EDT [facility] Name Value Range Interpretation Code Description Data Sharon rce(s) Supporting Document(s ) TEARDROP [facility] Hospital ID Date Data Source [id number] 01/14/2020 07:48:00 AM EDT [facility] Name Value Range Interpretation Code Description Data Sharon rce(s) Supporting Document(s ) OVALOCYTES [facility] ID Date Data Source [id number] 01/14/2020 07:48:00 AM EDT [facility] Value Range Interpretation Code Description Data Sharon rce(s) Supporting Document(s ) MACROCYTOSIS 1+ [facility] ID Date Data Source [id number] 01/14/2020 07:48:00 AM EDT [facility] Name Value Range Interpretation Description Data Sup porting Code Source(s) Document(s ) POIKILOCYTOSIS [facility] ID Date Data Source [id number] 01/14/2020 07:48:00 AM EDT [facility] Name Value Range Interpretation Code Description Data Sharon rce(s) Supporting Document(s ) ANISOCYTOSIS 1+ [facility] ID Date Data Source [id number] 01/14/2020 07:48:00 AM EDT [facility] Name Value Range Interpretation Description Data Sup porting Code Source(s) Document(s ) Eosinophils 0.38 [facility] [#/volume] in 10*3/uL Hospital Blood by Manual count ID Date Data Source [id number] 01/14/2020 07:48:00 AM EDT [facility] Name Value Range Interpretation Description Data Sup porting Code Source(s) Document(s ) Monocytes 0.49 [facility] [#/volume] in 10*3/uL Hospital Blood by Manual count ID Date Data Source [id number] 01/14/2020 07:48:00 AM EDT [facility] Value Range Interpretation Description Data Sup porting Code Source(s) Document(s ) Lymphocytes 0.92 [facility] [#/volume] in 10*3/uL Hospital Blood by Manual count ID Date Data Source [id number] 01/14/2020 07:48:00 AM EDT [facility] Name Value Range Interpretation Description Data Sup porting Code Source(s) Document(s ) Neutrophils 3.62 [facility] [#/volume] in 10*3/uL Hospital Blood by Manual count ID Date Data Source [id number] 01/14/2020 07:48:00 AM EDT [facility] Name Value Range Interpretation Description Data Sup porting Code Source(s) Document(s ) Eosinophils/100 7 % [facility] leukocytes in Hospital Blood by Manual count ID Date Data Source [id number] 01/14/2020 07:48:00 AM EDT [facility] Name Value Range Interpretation Description Data Sup porting Code Source(s) Document(s ) Monocytes/100 9 % [facility] leukocytes in Hospital Blood by Manual count ID Date Data Source [id number] 01/14/2020 07:48[facility] Name Value Range Interpretation Description Data Sup porting Code Source(s) Document(s ) Lymphocytes/100 17 % [facility] leukocytes in Hospital Blood by Manual count ID Date Data Source [id number] 01/14/2020 07:48:00 AM [facility] Name Value Range Interpretation Description Data Sup porting Code Source(s) Document(s ) Neutrophils/100 67 % [facility] leukocytes in Hospital Blood by Manual count ID Date Data Source [id number] 01/14/2020 07:48:00 AM [facility] TEST PERFORMED BY [employer] SENS[employer] [facility] CHEMILUMINESCENCE METHOD. Name Value Range Interpretation Description Data Sup porting Code Source(s) Document(s ) Troponin 0.05 [facility] I.cardiac ng/mL Hospital [Mass/volume ] in Serum or Plasma ID Date Data Source [id number] 01/14/2020 07:48:00 AM [facility] Name Value Range Interpretation Description Data Sup porting Code Source(s) Document(s ) Aspartate 25 U/L [facility] aminotransferase [facility] [Enzymatic Hospital activity/volume] in Serum or Plasma ID Date Data Source [id number] 01/14/2020 07:48:00 AM [facility] Name Value Range Interpretation Description Data Sup porting Code Source(s) Document(s ) Alanine < 8 U/L [facility] aminotransferase [facility] [Enzymatic Hospital activity/volume] in Serum or Plasma ID Date Data Source [id number] 01/14/2020 07:48:00 AM [facility] Name Value Range Interpretation Description Data Sup porting Code Source(s) Document(s ) Alkaline 78 U/L [facility] phosphatase [facility] [Enzymatic activity/volume ] in Serum or Plasma ID Date Data Source [id number] 01/14/2020 07[facility]48:[facility] Name Value Range Interpretation Description Data Sup porting Code Source(s) Document(s ) Bilirubin.t 0.2 mg/dL [facility] [Mass/volum e] in Serum or Plasma ID Date Data Source [id number] 01/14/2020 07:48:00 AM EDT [facility] Name Value Range Interpretation Code Description Data Sharon rce(s) Supporting Document(s ) Albumin/Glob 1.4 [facility] ulin [Mass Hospital Ratio] in Serum or Plasma ID Date Data Source [id number] 01/14/2020 07:48:00 AM EDT [facility] Name Value Range Interpretation Description Data Sup porting Code Source(s) Document(s ) Albumin 3.8 g/dL [facility] [Mass/volume Hospital ] in Serum or Plasma ID Date Data Source [id number] 01/14/2020 07:48:00 AM EDT [facility] Name Value Range Interpretation Description Data Sup porting Code Source(s) Document(s ) Protein 6.5 g/dL [facility] [Mass/volume Hospital ] in Serum or Plasma ID Date Data Source [id number] 01/14/2020 07:48:00 AM EDT [facility] Name Value Range Interpretation Description Data Sup porting Code Source(s) Document(s ) Calcium 7.7 mg/dL [facility] [Mass/volume Hospital ] in Serum or Plasma ID Date Data Source [id number] 01/14/2020 07:48:00 AM EDT [facility] Name Value Range Interpretation Code Description Data Sharon rce(s) Supporting Document(s ) Urea 10.3 [facility] nitrogen/Cre Hospital atinine [Mass Ratio] in Serum or Plasma ID Date Data Source [id number] 01/14/2020 07:48:00 AM [facility] NOTIFICATION AND READ BACK OF CRITICAL R ESULTS TO RN PARALEGAL JOJO CARRANZA AT 0836 ON 01/14/20 BY Guerrero Capone.REPORTED CRITICAL VALU ES SHOULD BE INTERPRETED WITHIN CLINICAL CONTEXT. Name Value Range Interpretation Description Data Sup porting Code Source(s) Document(s ) Creatinine 6.4 mg/dL [facility] [Mass/volume] Hospital in Serum or Plasma ID Date Data Source [id number] 01/14/2020 07:48:00 AM [facility] Name Value Range Interpretation Description Data Sup porting Code Source(s) Document(s ) Urea 66 mg/dL [facility] Hospital [Mass/volume ] in Serum or Plasma ID Date Data Source [id number] 01/14/2020 07:48:00 AM [facility] Name Value Range Interpretation Code Description Data Sharon rce(s) Supporting Document(s ) Anion gap in 20 [facility] Serum or [facility] Plasma ID Date Data Source [id number] 01/14/2020 07:48:00 AM [facility] Name Value Range Interpretation Description Data Sup porting Code Source(s) Document(s ) Carbon 24 mmol/L [facility] dioxide, Hospital total [Moles/volu me] in Serum or Plasma ID Date Data Source [id number] 01/14/2020 07:48:00 AM [facility] Name Value Range Interpretation Description Data Sup porting Code Source(s) Document(s ) Chloride 99 mmol/L [facility] [Moles/volum Hospital e] in Serum or Plasma ID Date Data Source [id number] 01/14/2020 07:48:00 AM [facility] MODERATE HEMOLYSIS. NOTIFIED YRIS CARRANZA Name Value Range Interpretation Description Data Sup porting Code Source(s) Document(s ) Potassium 5.6 [facility] [Moles/volume mmol/L Hospital ] in Serum or Plasma ID Date Data Source [id number] 01/14/2020 07:48:00 AM [facility] Name Value Range Interpretation Description Data Sup porting Code Source(s) Document(s ) Sodium 137 mmol/L [facility] [place]] in Serum or Plasma ID Date Data Source [id number] 01/14/2020 07:48:00 AM [facility] Name Value Range Interpretation Description Data Sup porting Code Source(s) Document(s ) Glucose 76 mg/dL [facility] [Mass/volume [facility] ] in Serum or Plasma ID Date Data Source [id number] 01/14/2020 07:48:00 AM [facility] THERAPEUTIC RANGES:UNFRACTIONATED HEPARI N THERAPY: 60-90 SECONDSARGATROBAN THERAPY: 49-99 SECONDS Name Value Range Interpretation Description Data Sup porting Code Source(s) Document(s ) aPTT in 30.7 s [facility] Platelet poor [facility] plasma by Coagulation assay ID Date Data Source [id number] 01/14/2020 07:48:00 AM [facility] HEMOLYZED SPECIMEN- HEMOLYSIS CAUSES KAREN RTENING OF PT AND APTT RESULTSTHERAPEUTIC RANGE FOR STANDARD ORALANTICOAGULANT THE RAPY: 2.0-3.0THERAPEUTIC RANGE FOR HIGH DOSE ORALANTICOAGULANT THERAPY (AUTOMOTIVE SERVICE TECHNICIAN AL HEARTVALVE REPLACEMENT): 2.5-3.5 Name Value Range Interpretation Description Data Sup porting Code Source(s) Document(s ) INR in Platelet 1.0 [facility] poor plasma by Hospital Coagulation assay ID Date Data Source [id number] 01/14/2020 07:48:00 AM [facility] Name Value Range Interpretation Description Data Sup porting Code Source(s) Document(s ) PT panel - 12.2 s [facility] Platelet poor [facility] plasma by Coagulation assay ID Date Data Source [id number] 01/14/2020 07:48:00 AM EDT [facility] Name Value Range Interpretation Code Description Data Supporting Source(s) Document(s ) NUCLEATED RBCS 0.0 % [facility] (AUTO Hospital DIFF%)DIS ID Date Data Source [id number] 01/14/2020 07:48:00 AM EDT [facility] Name Value Range Interpretation Description Data Sup porting Code Source(s) Document(s ) Differential MANUAL [facility] cell count Hospital method - Blood ID Date Data Source [id number] 01/14/2020 07:48:00 AM EDT [facility] Name Value Range Interpretation Code Description Data Sharon rce(s) Supporting Document(s ) Cells 100 [facility] Counted [facility] Total [#] in Blood ID Date Data Source [id number] 01/14/2020 07:48:00 AM EDT [facility] Name Value Range Interpretation Description Data Sup porting Code Source(s) Document(s ) Platelet PRESENT [facility] morphology Hospital finding [Identifier] in Blood ID Date Data Source [id number] 01/14/2020 07:48:00 AM EDT [facility] Name Value Range Interpretation Code Description Data Sharon rce(s) Supporting Document(s ) TARGET CELLS OCC [facility] ID Date Data Source [id number] 01/14/2020 07:48:00 AM EDT [facility] Name Value Range Interpretation Code Description Data Sharon rce(s) Supporting Document(s ) TEARDROP OCC [facility] CELLS Hospital ID Date Data Source [id number] 01/14/2020 07:48:00 AM EDT [facility] Name Value Range Interpretation Code Description Data Sharon rce(s) Supporting Document(s ) OVALOCYTES OCC [facility] ID Date Data Source [id number] 01/14/2020 07:48:00 AM EDT [facility] Name Value Range Interpretation Description Data Sup porting Code Source(s) Document(s ) Platelet PRESENT [facility] finding [Identifier] in Blood ID Date Data Source [id number] 01/14/2020 07:48:00 AM EDT [facility] Name Value Range Interpretation Code Description Data Sharon rce(s) Supporting Document(s ) TARGET CELLS [facility] ID Date Data Source [id number] 01/14/2020 07:48:00 AM EDT [facility] Name Value Range Interpretation Code Description Data Sharon rce(s) Supporting Document(s ) TEARDROP [facility] Hospital ID Date Data Source [id number] 01/14/2020 07:48:00 AM EDT [facility] Name Value Range Interpretation Description Data Sup porting Code Source(s) Document(s ) POIKILOCYTOSIS [facility] ID Date Data Source [id number] 01/14/2020 07:48:00 AM EDT [facility] Name Value Range Interpretation Code Description Data Sharon rce(s) Supporting Document(s ) ANISOCYTOSIS 1+ [facility] ID Date Data Source [id number] 01/14/2020 07:48:00 AM EDT [facility] Name Value Range Interpretation Code Description Data Sharon rce(s) Supporting Document(s ) MACROCYTOSIS 1+ [facility] ID Date Data Source [id number] 01/14/2020 07:48:00 AM EDT [facility] Name Value Range Interpretation Description Data Sup porting Code Source(s) Document(s ) POIKILOCYTOSIS [facility] ID Date Data Source [id number] 01/14/2020 07:48:00 AM EDT [facility] Name Value Range Interpretation Code Description Data Sharon rce(s) Supporting Document(s ) ANISOCYTOSIS 1+ [facility] ID Date Data Source [id number] 01/14/2020 07:48:00 AM EDT [facility] Name Value Range Interpretation Description Data Sup porting Code Source(s) Document(s ) Eosinophils 0.38 [facility] [#/volume] in 10*3/uL Hospital Blood by Manual count ID Date Data Source [id number] 01/14/2020 07:48:00 AM EDT [facility] Value Range Interpretation Description Data Sup porting Code Source(s) Document(s ) Monocytes 0.49 [facility] [#/volume] in 10*3/uL Hospital Blood by Manual count ID Date Data Source [id number] 01/14/2020 07:48:00 AM EDT [facility] Value Range Interpretation Description Data Sup porting Code Source(s) Document(s ) Lymphocytes 0.92 [facility] [#/volume] in 10*3/uL Hospital Blood by Manual count ID Date Data Source [id number] 01/14/2020 07:48:00 AM EDT [facility] Value Range Interpretation Description Data Sup porting Code Source(s) Document(s ) Neutrophils 3.62 [facility] [#/volume] in 10*3/uL Hospital Blood by Manual count ID Date Data Source [id number] 01/14/2020 07:48:00 AM EDT [facility] Value Range Interpretation Description Data Sup porting Code Source(s) Document(s ) Eosinophils/100 7 % [facility] leukocytes in Hospital Blood by Manual count ID Date Data Source [id number] 01/14/2020 07:48:00 AM EDT [facility] Name Value Range Interpretation Description Data Sup porting Code Source(s) Document(s ) Monocytes/100 9 % [facility] leukocytes in Hospital Blood by Manual count ID Date Data Source [id number] 01/14/2020 07:48:00 AM EDT [facility] Value Range Interpretation Description Data Sup porting Code Source(s) Document(s ) Lymphocytes/100 17 % [facility] leukocytes in Hospital Blood by Manual count ID Date Data Source [id number] 01/14/2020 07:48:00 AM EDT [facility] Value Range Interpretation Description Data Sup porting Code Source(s) Document(s ) Neutrophils/100 67 % [facility] leukocytes in [facility] Blood by Manual count ID Date Data Source [id number] 01/14/2020 07:48:00 AM EDT [facility] Value Range Interpretation Description Data Sup porting Code Source(s) Document(s ) Platelet mean 11.6 fL [facility] volume [facility] [Entitic volume] in Blood by Automated count ID Date Data Source [id number] 01/14/2020 07:48:00 AM EDT [facility] Value Range Interpretation Description Data Sup porting Code Source(s) Document(s ) Platelets 105 [facility] [#/volume] in 10*3/uL Hospital Blood by Automated count ID Date Data Source [id number] 01/14/2020 07:48:00 AM EDT [facility] Value Range Interpretation Description Data Sup porting Code Source(s) Document(s ) Erythrocyte 15.2 % [facility] distribution Hospital width [Ratio] by Automated count ID Date Data Source [id number] 01/14/2020 07:48:00 AM EDT [facility] Value Range Interpretation Description Data Sup porting Code Source(s) Document(s ) Erythrocyte mean 29.9 [facility] corpuscular g/dL Hospital hemoglobin concentration [Mass/volume] by Automated count ID Date Data Source [id number] 01/14/2020 07:48:00 AM EDT [facility] Value Range Interpretation Description Data Sup porting Code Source(s) Document(s ) Erythrocyte 33.0 pg [facility] corpuscular hemoglobin [Entitic mass] by Automated count ID Date Data Source [id number] 01/14/2020 07:48:00 AM EDT [facility] Value Range Interpretation Description Data Sup porting Code Source(s) Document(s ) Erythrocyte 110.4 fL [facility] corpuscular volume [Entitic volume] by Automated count ID Date Data Source [id number] 01/14/2020 07:48:00 AM EDT [facility] Value Range Interpretation Description Data Sup porting Code Source(s) Document(s ) Hematocrit 31.8 % [facility] [Volume Hospital Fraction] of Blood by Automated count ID Date Data Source [id number] [facility] Interpret[facility] Description Data Sup porting Code Source(s) Document(s ) Hemoglobin 9.5 g/dL [facility] [Mass/volume] [facility] in Blood ID Date Data Source [id number] 01/14[facility] Interpretation Description Data Sup porting Code Source(s) Document(s ) Erythrocytes 2.88 [facility] [#/volume] in 10*6/uL Hospital Blood by Automated count ID Date Data Source [id number] 01/14/2020 [facility] Interpretation Description Data Sup porting Code Source(s) Document(s ) Leukocytes 5.4 [facility] [#/volume] in 10*3/uL Hospital Blood by Automated count ID Date Data Source [id number] 01/14/2020 [facility] Interpretation Description Data Sup porting Code Source(s) Document(s ) Platelet PRESENT [facility] finding [Identifier] in Blood ID Date Data Source [id number] 01/14/2020 07:48:00 AM EDT [facility] Value Range Interpretation Code Description Data Sharon rce(s) Supporting Document(s ) TARGET CELLS [facility] ID Date Data Source [id number] 01/14/2020 [facility] Range Interpretation Code Description Data Sharon rce(s) Supporting Document(s ) TEARDROP [facility] Hospital ID Date Data Source [id number] 01/14/2020 07:48:00 AM EDT [facility] Value Range Interpretation Description Data Sup porting Code Source(s) Document(s ) POIKILOCYTOSIS 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 CARRANZA Name Value Range Interpretation Description Data Sup porting Code Source(s) Document(s ) Glucose 76 mg/dL [facility] [Mass/volume] [facility] in Capillary blood by Glucometer ID Date Data Source [id number] 01/14[facility]JOJO CARRANZA Name Value Range Interpretation Description Data Sup porting Code Source(s) Document(s ) Glucose 76 mg/dL [facility] [Mass/volume] Hospital in Capillary blood by Glucometer ID Date Data Source [id number] 01/14/2020 07:47:00 AM [facility] [employer] Kn[employer] Operator:JOJO CARRANZA Name Value Range Interpretation Description Data Sup porting Code Source(s) Document(s ) Glucose 76 mg/dL [facility] [Mass/volume] Hospital in Capillary blood by Glucometer ID Date Data Source [id number] 01/14/2020 07:47:00 AM [facility] [employer] Operator:JOJO CARRANZA Name Value Range Interpretation Description Data Sup porting Code Source(s) Document(s ) Glucose 76 mg/dL [facility] [Mass/volume] Hospital in Capillary blood by Glucometer ID Date Data Source [id number] 12/10/2019 02:11:00 PM [facility] [employer] Operator:FRANKLIN SERGIO Name Value Range Interpretation Description Data Sup porting Code Source(s) Document(s ) Glucose 102 mg/dL [facility] [Mass/volume] Hospital in Capillary blood by Glucometer ID Date Data Source [id number] 12/10/2019 [facility]05[facility] Range Interpretation Description Data Sup porting Code Source(s) Document(s ) Platelets 53 [facility] [#/volume] in 10*3/uL Hospital Blood by Automated count ID Date Data Source [id number] 12/10/2019 12:05:00 PM [facility] Name Value Range Interpretation Description Data Sup porting Code Source(s) Document(s ) Erythrocyte 13.4 % [facility] distribution Hospital width [Ratio] by Automated count ID Date Data Source [id number] 12/10/2019 12:05:00 PM EDT [facility] Value Range Interpretation Description Data Sup porting Code Source(s) Document(s ) Erythrocyte mean 32.2 [facility] corpuscular g/dL Hospital hemoglobin concentration [Mass/volume] by Automated count ID Date Data Source [id number] 12/10/2019 12:05:00 PM EDT [facility] Value Range Interpretation Description Data Sup porting Code Source(s) Document(s ) Erythrocyte 32.9 pg [facility] corpuscular hemoglobin [Entitic mass] by Automated count ID Date Data Source [id number] 12/10/2019 12:05:00 PM EDT [facility] Value Range Interpretation Description Data Sup porting Code Source(s) Document(s ) Erythrocyte 102.0 fL [facility] corpuscular volume [Entitic volume] by Automated count ID Date Data Source [id number] 12/10/2019 12:05:00 PM [facility] Value Range Interpretation Description Data Sup porting Code Source(s) Document(s ) Hematocrit 30.4 % [facility] [Volume Hospital Fraction] of Blood by Automated count ID Date Data Source [id number] 12/10/2019 [facility] Interpretation Description Data Sup porting Code Source(s) Document(s ) Hemoglobin 9.8 g/dL [facility] [Mass/volume] Hospital in Blood ID Date Data Source [id number] 12/10/2019 [facility] Interpretation Description Data Sup porting Code Source(s) Document(s ) Erythrocytes 2.98 [facility] [#/volume] in 10*6/uL Hospital Blood by Automated count ID Date Data Source [id number] 12/10/2019 12:05:00 PM EDT [facility] Name Value Range Interpretation Description Data Sup porting Code Source(s) Document(s ) Leukocytes 2.2 [facility] [#/volume] in 10*3/uL Hospital Blood by Automated count ID Date Data Source [id number] 12/10/2019 12:05:00 PM EDT [facility] Name Value Range Interpretation Code Description Data Supporting Source(s) Document(s ) NUCLEATED RBCS 0.0 % [facility] (AUTO Hospital DIFF%)DIS ID Date Data Source [id number] 12/10/2019 12:05:00 PM EDT [facility] Value Range Interpretation Description Data Sup porting Code Source(s) Document(s ) Differential AUTOMATED [facility] cell count Hospital method - Blood ID Date Data Source [id number] 12/10/2019 12:05:00 PM EDT [facility] Name Value Range Interpretation Description Data Sup porting Code Source(s) Document(s ) Immature 0.01 [facility] granulocytes 10*3/uL Hospital [#/volume] in Blood by Automated count ID Date Data Source [id number] 12/10/2019 12:05:00 PM EDT [facility] Name Value Range Interpretation Description Data Sup porting Code Source(s) Document(s ) Basophils 0.02 [facility] [#/volume] in 10*3/uL Hospital Blood by Automated count ID Date Data Source [id number] 12/10/2019 12:05:00 PM EDT [facility] Name Value Range Interpretation Description Data Sup porting Code Source(s) Document(s ) Eosinophils 0.17 [facility] [#/volume] in 10*3/uL Hospital Blood by Automated count ID Date Data Source [id number] 12/10/2019 12:05:00 PM EDT [facility] Name Value Range Interpretation Description Data Sup porting Code Source(s) Document(s ) Monocytes 0.06 [facility] [#/volume] in 10*3/uL Hospital Blood by Automated count ID Date Data Source [id number] 12/10/2019 12:05:00 PM EDT [facility] Value Range Interpretation Description Data Sup porting Code Source(s) Document(s ) Lymphocytes 0.22 [facility] [#/volume] in 10*3/uL Hospital Blood by Automated count ID Date Data Source [id number] 12/10/2019 12:05:00 PM EDT [facility] Value Range Interpretation Description Data Sup porting Code Source(s) Document(s ) Neutrophils 1.69 [facility] [#/volume] in 10*3/uL Hospital Blood by Automated count ID Date Data Source [id number] 12/10/2019 12:05:00 PM EDT [facility] Value Range Interpretation Description Data Sup porting Code Source(s) Document(s ) Nucleated 0.0 % [facility] erythrocytes/10 Hospital 0 leukocytes [Ratio] in Blood by Automated count ID Date Data Source [id number] 12/10/2019 12:05:00 PM EDT [facility] Value Range Interpretation Description Data Sup porting Code Source(s) Document(s ) Immature 0.5 % [facility] granulocytes/10 Hospital 0 leukocytes in Blood by Automated count ID Date Data Source [id number] 12/10/2019 12:05:00 PM EDT [facility] Value Range Interpretation Description Data Sup porting Code Source(s) Document(s ) Basophils/100 0.9 % [facility] leukocytes in Hospital Blood by Automated count ID Date Data Source [id number] 12/10/2019 12:05:00 PM EDT [facility] Value Range Interpretation Description Data Sup porting Code Source(s) Document(s ) Eosinophils/100 7.8 % [facility] leukocytes in Hospital Blood by Automated count ID Date Data Source [id number] 12/10/2019 12:05:00 PM EDT [facility] Name Value Range Interpretation Description Data Sup porting Code Source(s) Document(s ) Monocytes/100 2.8 % [facility] leukocytes in Hospital Blood by Automated count ID Date Data Source [id number] 12/10/2019 12:05:00 PM EDT [facility] Name Value Range Interpretation Description Data Sup porting Code Source(s) Document(s ) Lymphocytes/10 10.1 % [facility] 0 leukocytes Hospital in Blood by Automated count ID Date Data Source [id number] 12/10/2019 12:05:00 PM EDT [facility] Name Value Range Interpretation Description Data Sup porting Code Source(s) Document(s ) Neutrophils/10 77.9 % [facility] 0 leukocytes Hospital in Blood by Automated count ID Date Data Source [id number] 12/10/2019 12:05:00 PM EDT [facility] Name Value Range Interpretation Description Data Sup porting Code Source(s) Document(s ) Platelet mean 12.3 fL [facility] volume [facility] [Entitic volume] in Blood by Automated count ID Date Data Source [id number] 12/09/2019 07:08:00 AM EDT [facility] Name Value Range Interpretation Description Data Sup porting Code Source(s) Document(s ) Phosphate 7.7 mg/dL [facility] [Mass/volume] Hospital in Serum or Plasma ID Date Data Source [id number] 12/09/2019 07:08:00 AM EDT [facility] Name Value Range Interpretation Description Data Sup porting Code Source(s) Document(s ) Magnesium 2.0 mg/dL [facility] [Mass/volume] Hospital in Serum or Plasma ID Date Data Source [id number] 12/09/2019 07:08:00 AM EDT [facility] Name Value Range Interpretation Description Data Sup porting Code Source(s) Document(s ) Aspartate 13 U/L [facility] aminotransferase [facility] [Enzymatic Hospital activity/volume] in Serum or Plasma ID Date Data Source [id number] 12/09/2019 07:08:00 AM EDT [facility] Name Value Range Interpretation Description Data Sup porting Code Source(s) Document(s ) Alanine < 8 U/L [facility] aminotransferase [facility] [Enzymatic Hospital activity/volume] in Serum or Plasma ID Date Data Source [id number] 12/09/2019 07:08:00 AM EDT [facility] Value Range Interpretation Description Data Sup porting Code Source(s) Document(s ) Alkaline 80 U/L [facility] phosphatase [facility] [Enzymatic activity/volume ] in Serum or Plasma ID Date Data Source [id number] 12/09/2019 07:08:00 AM EDT [facility] Name Value Range Interpretation Description Data Sup porting Code Source(s) Document(s ) Bilirubin.t 0.3 mg/dL [facility] [Mass/volum e] in Serum or Plasma ID Date Data Source [id number] 12/09/2019 07:08:00 AM EDT [facility] Name Value Range Interpretation Code Description Data Sharon rce(s) Supporting Document(s ) Albumin/Glob 1.4 [facility] ulin [Mass Hospital Ratio] in Serum or Plasma ID Date Data Source [id number] 12/09/2019 07:08:00 AM EDT [facility] Value Range Interpretation Description Data Sup porting Code Source(s) Document(s ) Albumin 3.2 g/dL [facility] [Mass/volume Hospital ] in Serum or Plasma ID Date Data Source [id number] 12/09/2019 07:08:00 AM EDT [facility] Name Value Range Interpretation Description Data Sup porting Code Source(s) Document(s ) Protein 5.5 g/dL [facility] [Mass/volume Hospital ] in Serum or Plasma ID Date Data Source [id number] 12/09/2019 07:08:00 AM EDT [facility] Name Value Range Interpretation Description Data Sup porting Code Source(s) Document(s ) Calcium 7.8 mg/dL [facility] [Mass/volume Hospital ] in Serum or Plasma ID Date Data Source [id number] 12/09/2019 07:08:00 AM [facility] UNITS ARE IN ml/min/1.73m2.IF PATIENT IS -GUAMANIAN, MULTIPLY REPORTED RESULT BY 1.21. Name Value Range Interpretation Description Data Sup porting Code Source(s) Document(s ) Glomerular 8 mL/min [facility] filtration Hospital rate/1.73 sq M.predicted [Volume Rate/Area] in Serum or Plasma by Creatinine-bas ed formula (MDRD) ID Date Data Source [id number] 12/09/2019 07:08:00 AM [facility] Name Value Range Interpretation Code Description Data Sharon rce(s) Supporting Document(s ) Urea 5.0 [facility] nitrogen/Cre Hospital atinine [Mass Ratio] in Serum or Plasma ID Date Data Source [id number] 12/09/2019 07:08:00 AM [facility] Name Value Range Interpretation Description Data Sup porting Code Source(s) Document(s ) Creatinine 5.4 mg/dL [facility] [Mass/volume] Hospital in Serum or Plasma ID Date Data Source [id number] 12/09/2019 [facility] Value Range Interpretation Description Data Sup porting Code Source(s) Document(s ) Urea 27 mg/dL [facility] nitrogen Hospital [Mass/volume ] in Serum or Plasma ID Date Data Source [id number] 12/09/2019 07:08:00 AM EDT [facility] Name Value Range Interpretation Code Description Data Sharon rce(s) Supporting Document(s ) Anion gap in 14 [facility] Serum or [facility] Plasma ID Date Data Source [id number] 12/09/2019 07:08:00 AM EDT [facility] Value Range Interpretation Description Data Sup porting Code Source(s) Document(s ) Carbon 28 mmol/L [facility] dioxide, Hospital total [Moles/volu me] in Serum or Plasma ID Date Data Source [id number] 12/09/2019 07:08:00 AM EDT [facility] Name Value Range Interpretation Description Data Sup porting Code Source(s) Document(s ) Chloride 101 [facility] [Moles/volum mmol/L Hospital e] in Serum or Plasma ID Date Data Source [id number] 12/09/2019 07:08:00 AM EDT [facility] Value Range Interpretation Description Data Sup porting Code Source(s) Document(s ) Potassium 5.1 [facility] [Moles/volume mmol/L Hospital ] in Serum or Plasma ID Date Data Source [id number] 12/09/2019 07:08:00 AM EDT [facility] Name Value Range Interpretation Description Data Sup porting Code Source(s) Document(s ) Sodium 138 mmol/L [facility] [Moles/volu Hospital me] in Serum or Plasma ID Date Data Source [id number] 12/09/2019 07:08:00 AM EDT [facility] Value Range Interpretation Description Data Sup porting Code Source(s) Document(s ) Glucose 123 mg/dL [facility] [Mass/volume Hospital ] in Serum or Plasma ID Date Data Source [id number] 12/08/2019 05:18:00 AM EDT [facility] Name Value Range Interpretation Description Data Sup porting Code Source(s) Document(s ) Hepatitis C NON-REACT [facility] virus Ab [facility] [Presence] in Serum ID Date Data Source [id number] 12/08/2019 05:18:00 AM EDT [facility] Name Value Range Interpretation Description Data Sup porting Code Source(s) Document(s ) Hepatitis B NON-REACT [facility] virus core Ab [facility] [Presence] in Serum ID Date Data Source [id number] 12/08/2019 05:18:00 AM EDT [facility] Name Value Range Interpretation Description Data Sup porting Code Source(s) Document(s ) Hepatitis A NON-REACT [facility] virus Ab [facility] [Presence] in Serum ID Date Data Source [id number] 12/08/2019 05:18:00 AM EDT [facility] Name Value Range Interpretation Description Data Sup porting Code Source(s) Document(s ) Hepatitis B NON-REACT [facility] virus surface [facility] Ab [Presence] in Serum ID Date Data Source [id number] 12/08/2019 05:18:00 AM EDT [facility] Name Value Range Interpretation Description Data Sup porting Code Source(s) Document(s ) Hepatitis B NON-REACT [facility] virus surface [facility] Ag [Presence] in Serum ID Date Data Source [id number] 12/08/2019 05:18:00 AM EDT [facility] Name Value Range Interpretation Code Description Data Sharon rce(s) Supporting Document(s ) Cells 100 [facility] Total [#] in Blood ID Date Data Source [id number] 12/08/2019 05:18:00 AM EDT [facility] Value Range Interpretation Code Description Data Supporting Source(s) Document(s ) PLATELET NORMAL [facility] COMMENT Hospital ID Date Data Source [id number] 12/08/2019 05:18:00 AM EDT [facility] Value Range Interpretation Description Data Sup porting Code Source(s) Document(s ) Platelets DECREASED [facility] [#/volume] in Hospital Blood by Estimate ID Date Data Source [id number] 12/08/2019 05:18:00 AM EDT [facility] Value Range Interpretation Code Description Data Sharon rce(s) Supporting Document(s ) MACROCYTOSIS 1+ [facility] ID Date Data Source [id number] 12/08/2019 05:18:00 AM EDT [facility] Value Range Interpretation Description Data Sup porting Code Source(s) Document(s ) Eosinophils 0.32 [facility] [#/volume] in 10*3/uL Hospital Blood by Manual count ID Date Data Source [id number] 12/08/2019 05:18:00 AM EDT [facility] Value Range Interpretation Description Data Sup porting Code Source(s) Document(s ) Monocytes 0.25 [facility] [#/volume] in 10*3/uL Hospital Blood by Manual count ID Date Data Source [id number] 12/08/2019 05:18:00 AM EDT [facility] Value Range Interpretation Description Data Sup porting Code Source(s) Document(s ) Lymphocytes 0.84 [facility] [#/volume] in 10*3/uL Hospital Blood by Manual count ID Date Data Source [id number] 12/08/2019 05:18:00 AM EDT [facility] Value Range Interpretation Description Data Sup porting Code Source(s) Document(s ) Neutrophils 2.10 [facility] [#/volume] in 10*3/uL Hospital Blood by Manual count ID Date Data Source [id number] 12/08/2019 05:18:00 AM EDT [facility] Value Range Interpretation Description Data Sup porting Code Source(s) Document(s ) Eosinophils/100 9 % [facility] leukocytes in Hospital Blood by Manual count ID Date Data Source [id number] 12/08/2019 05:18:00 AM EDT [facility] Value Range Interpretation Description Data Sup porting Code Source(s) Document(s ) Monocytes/100 7 % [facility] leukocytes in Hospital Blood by Manual count ID Date Data Source [id number] 12/08/2019 05:18:00 AM EDT [facility] Value Range Interpretation Description Data Sup porting Code Source(s) Document(s ) Lymphocytes/100 24 % [facility] leukocytes in Hospital Blood by Manual count ID Date Data Source [id number] 12/08[facility]2019 [facility] Description Data Sup porting Code Source(s) Document(s ) Neutrophils/100 60 % [facility] leukocytes in Hospital Blood by Manual count ID Date Data Source [id number] 12/08/2019 04:29:00 AM EDT [facility] Value Range Interpretation Description Data Sup porting Code Source(s) Document(s ) GLUCOSE RN Notified [facility] ID Date Data Source [id number] 12/07/2019 05:33:00 PM EDT [facility] Value Range Interpretation Code Description Data Sharon rce(s) Supporting Document(s ) READ BACK Yes/ [facility] ID Date Data Source [id number] 12/07/2019 05:33:00 PM EDT [facility] Value Range Interpretation Code Description Data Sharon rce(s) Supporting Document(s ) NOTE WHO Dr. Alejo. [facility] Hospital ID Date Data Source [id number] 12/07/2019 05:33:00 PM EDT [facility] Value Range Interpretation Description Data Sup porting Code Source(s) Document(s ) IONIZED 1.22 [facility] CALCIUM mmol/L Hospital ID Date Data Source [id number] 12/07/2019 05:33:00 PM EDT [facility] Value Range Interpretation Code Description Data Supporting Source(s) Document(s ) METHEMOGLOBIN 0.2 % [facility] ID Date Data Source [id number] 12/07/2019 05:33:00 PM EDT [facility] Value Range Interpretation Description Data Sup porting Code Source(s) Document(s ) CARBOXYHEMOGLOBIN 0.5 % [facility] ID Date Data Source [id number] 12/07/2019 05:33:00 PM EDT [facility] Value Range Interpretation Code Description Data Sharon rce(s) Supporting Document(s ) ABG TEMP 98.0 [facility] ID Date Data Source [id number] 12/07/2019 05:33:00 PM EDT [facility] Value Range Interpretation Code Description Data Sharon rce(s) Supporting Document(s ) FIO2 100 % [facility] ID Date Data Source [id number] 12/07/2019 05:33:00 PM EDT [facility] Value Range Interpretation Code Description Data Sharon rce(s) Supporting Document(s ) ABG BE -5.4 mmol/L [facility] ID Date Data Source [id number] 12/07/2019 05:33:00 PM EDT [facility] Value Range Interpretation Code Description Data Sharon rce(s) Supporting Document(s ) ABG O2SAT 95 % [facility] ID Date Data Source [id number] 12/07/2019 05:33:00 PM EDT [facility] Value Range Interpretation Code Description Data Sharon rce(s) Supporting Document(s ) ABG HCO3 22 mmol/L [facility] ID Date Data Source [id number] 12/07/2019 05:33:00 PM EDT [facility] Value Range Interpretation Code Description Data Sharon rce(s) Supporting Document(s ) ABG PO2 97 mm[Hg] [facility] ID Date Data Source [id number] 12/07/2019 05:33:00 PM EDT [facility] Value Range Interpretation Code Description Data Sharon rce(s) Supporting Document(s ) ABG PCO2 54 mm[Hg] [facility] ID Date Data Source [id number] 12/07/2019 05:33:00 PM EDT [facility] Value Range Interpretation Code Description Data Sharon rce(s) Supporting Document(s ) ABG PH 7.24 [facility] ID Date Data Source [id number] 12/07/2019 05:33:00 PM EDT [facility] Value Range Interpretation Code Description Data Sharon rce(s) Supporting Document(s ) ABG MODE NRM [facility] ID Date Data Source [id number] 12/07/2019 05:33:00 PM EDT [facility] Value Range Interpretation Code Description Data Supporting Source(s) Document(s ) ABG SITE Right [facility] ID Date Data Source [id number] 12/07/2019 05:33:00 PM EDT [facility] Name Value Range Interpretation Code Description Data Supporting Source(s) Document(s ) ABG SOURCE ARTERIAL [facility] ID Date Data Source [id number] 12/07/2019 05:33:00 PM EDT [facility] Name Value Range Interpretation Code Description Data Sharon rce(s) Supporting Document(s ) XAVIER TEST POSITIVE [facility] ID Date Data Source [id number] 12/07/2019 05:14:00 PM EDT [facility] Name Value Range Interpretation Description Data Sup porting Code Source(s) Document(s ) C reactive 15.4 mg/L [facility] protein [facility] [Mass/volume ] in Serum or Plasma ID Date Data Source [id number] 12/07/2019 05:14:00 PM EDT [facility] Name Value Range Interpretation Description Data Sup porting Code Source(s) Document(s ) Ferritin 785.0 [facility] [Mass/volume ng/mL Hospital ] in Serum or Plasma ID Date Data Source [id number] 12/07[facility]2019 [facility] PERFORMED BY [employer] [employer] ULTRA SENSITIVE CENTAUR CHEMILUMINESCENCE METHOD. Name Value Range Interpretation Description Data Sup porting Code Source(s) Document(s ) Troponin 0.10 [facility] I.cardiac ng/mL Hospital [Mass/volume ] in Serum or Plasma ID Date Data Source [id number] 12/07/2019 05:14:00 PM EDT [facility] Name Value Range Interpretation Description Data Sup porting Code Source(s) Document(s ) Procalcitonin 0.6 [facility] [Mass/volume] in ng/mL Hospital Serum or Plasma ID Date Data Source [id number] 12/07/2019 [facility]14:[facility] Value Range Interpretation Code Description Data Supporting Source(s) Document(s ) Creatine 35 U/L [facility] kinase [facility] [Enzymatic activity/volu me] in Serum or Plasma ID Date Data Source [id number] 12/07/2019 05:14:00 PM EDT [facility] Name Value Range Interpretation Description Data Sup porting Code Source(s) Document(s ) Lactate 144 U/L [facility] [Enzymatic activity/volume] in Serum or Plasma ID Date Data Source [id number] 12/07/2019 05:14:00 PM [facility] THERAPEUTIC RANGES:UNFRACTIONATED HEPARI N THERAPY: 60-90 SECONDSARGATROBAN THERAPY: 49-99 SECONDS Name Value Range Interpretation Description Data Sup porting Code Source(s) Document(s ) aPTT in 79.8 s [facility] Platelet poor [facility] plasma by Coagulation assay ID Date Data Source [id number] 12/07/2019 05:14:00 PM [facility] THERAPEUTIC RANGE FOR STANDARD ORALANTIC OAGULANT THERAPY: 2.0-3.0THERAPEUTIC RANGE FOR HIGH DOSE ORALANTICOAGULANT THERAPY (MECHANICAL HEARTVALVE REPLACEMENT): 2.5-3.5 Name Value Range Interpretation Description Data Sup porting Code Source(s) Document(s ) INR in Platelet 1.2 [facility] poor plasma by Hospital Coagulation assay ID Date Data Source [id number] 12/07/2019 05:14:00 [facility] Name Value Range Interpretation Description Data Sup porting Code Source(s) Document(s ) PT panel - 13.1 s [facility] Platelet poor [facility] plasma by Coagulation assay ID Date Data Source [id number] 12/07/2019 05:06:00 [facility] Name Value Range Interpretation Description Data Sup porting Code Source(s) Document(s ) Bacteria No growth [facility] identified in Hospital Blood by Culture ID Date Data Source [id number] 11/26/2019 06:39:00 AM EDT [facility] [id number] Corporation Name Value Range Interpretation Description Data Sup porting Code Source(s) Document(s ) Leukocytes 4.4 k/mm3 4.8-10 <td> 11/26/2019 [facility] [#/volume] in .8 06:39</td><td> [facility] Blood by k/mm3 WBC [facility] Automated count </td><td><Bibuluat ion raph styleCode="Bold "> 4.4 L </paragraph>
(4.8-10.8) k/mm3 </td> Hematocrit 35.4 % 37.0-4 <td> 11/26/2019 [facility] [Volume 7.0 % 06:39</td><td> County Fraction] of [facility] Blood by </td><td><[employer] Automated count raph styleCode="Bold "> 35.4 L </paragraph>
(37.0-47.0) % </td> Erythrocytes 3.21 m/mm3 3.90-5 <td> 11/26/2019 [facility] r [#/volume] in .20 06:39</td><td> [facility] Blood m/mm3 RBC Health Care </td><td><[employer] raph styleCode="Bold "> 3.21 L </paragraph>
(3.90-5.20) m/mm3 </td> Hemoglobin 10.5 g/dL 12.0-1 <td> 11/26/2019 [facility] [Mass/volume] 6.0 06:39</td><td> [facility] in Blood g/dL HGB [facility] </td><td><[employer] raph styleCode="Bold "> 10.5 L </paragraph>
(12.0-16.0) g/dL </td> Erythrocyte 110.3 fL 81.0-9 <td> 11/26/2019 [facility] mean 9.0 fL 06:39</td><td> [facility] corpuscular [facility] volume [Entitic </td><td><[employer] Corpor[employer] ion volume] by raph Automated count styleCode="Bold "> 110.3 H </paragraph>
(81.0-99.0) fL </td> Erythrocyte 32.7 pg 27.0-3 <td> 11/26/2019 [facility] mean 1.5 pg 06:39</td><td> [facility] corpuscular [facility] Health Care hemoglobin </td><td><[employer] [Entitic mass] raph by Automated styleCode="Bold count "> 32.7 H </paragraph>
(27.0-31.5) pg </td> Erythrocyte 14.9 % 11.5-1 <td> 11/26/2019 [facility] distribution 4.5 % 06:39</td><td> [facility] width [Entitic RDW Health Care volume] by </td><td><[employer] Automated count raph styleCode="Bold "> 14.9 H </paragraph>
(11.5-14.5) % </td> Erythrocyte 29.7 % 32.0-3 <td> 11/26/2019 [facility] mean 6.0 % 06:39</td><td> [facility] corpuscular [facility] hemoglobin </td><td><[employer] concentration raph [Mass/volume] styleCode="Bold in Blood from "> Fetus by 29.7 Automated count L </paragraph>
(32.0-36.0) % </td> Lymphocytes 23.8 % 17.0-5 <td> 11/26/2019 [facility] [#/volume] in 0.0 % 06:39</td><td> [facility] Blood by Lymphocytes Health Care Automated count </td><td> Corporation 23.8
(17.0-50.0) % </td> Platelet mean 12.2 fL 9.8-12 <td> 11/26/2019 [facility] r volume [Entitic .8 fL 06:39</td><td> County volume] in MPV </td><td> Health Care Blood by Corporation Automated count 12.2
(9.8-12.8) fL </td> Platelets 71 k/mm3 160-41 <td> 11/26/2019 [facility] [#/volume] in 0 06:39</td><td> [facility] Blood by k/mm3 Platelet Count Health Care Automated count </td><td><[employer] ion raph styleCode="Bold "> 71 L </paragraph>
(160-410) k/mm3 </td> Basophils+Eosin 9.1 % 0.0-5. <td> 11/26/2019 [facility] ophils+Monocyte 0 % 06:39</td><td> County s [#/volume] in Eosinophils Health Care Blood by </td><td><[employer] Automated count raph styleCode="Bold "> 9.1 H </paragraph>
(0.0-5.0) % </td> Basophils 1.1 % 0.0-2. <td> 11/26/2019 [facility] [#/volume] in 0 % 06:39</td><td> [facility] Blood by Basophils Health Care Automated count </td><td> Corporation 1.1
(0.0-2.0) % </td> Monocytes/Leuko 13.2 % 0.0-11 <td> 11/26/2019 [facility] cytes [Pure .0 % 06:39</td><td> County number Monocytes. Health Care fraction] in </td><td><[employer] Blood by raph Automated count styleCode="Bold "> 13.2 H </paragraph>
(0.0-11.0) % </td> Immature 0.5 % 0.0-0. <td> 11/26/2019 [facility] granulocytes/10 5 % 06:39</td><td> County 0 leukocytes in IG% </td><td> [facility] Blood by Corporation Automated count 0.5
(0.0-0.5) %
The IG fraction represents metamyelocytes, myelocytes and/or
promyelocytes and is only reported as part of the automated
differential when found at a percentage of less than 6.
If higher than 6%, a manual differential will be performed.

(0.0-0.5) % </td> Macrocytes Slight <td> 11/25/2019 [facility] [Presence] in 06:58</td><td> [facility] Blood by Light Macrocytic Health Care microscopy </td><td> ice Slight
</td> Neutrophils [#] 52.3 % 40.0-7 <td> 11/26/2019 [facility] in Body fluid 6.0 % 06:39</td><td> [facility] by Manual count Neutrophils Health Care </td><td> ice 52.3
(40.0-76.0) % </td> Ovalocytes Few <td> 11/25/2019 [facility] [Presence] in 11:10</td><td> [facility] Blood by Light Ovalocytes Health Care microscopy </td><td> ice Few
</td> Poikilocytosis Slight <td> 11/25/2019 [facility] er [Presence] in 11:10</td><td> [facility] Blood by Light Poikilocytosis Health Car e microscopy </td><td> ice Slight
</td> Glucose 76 mg/dL 70-105 <td> 11/26/2019 [facility] [Mass/volume] mg/dL 06:39</td><td> [facility] in Blood Glucose-Serum Health Care </td><td> ice 76
(70-105) mg/dL </td> Sodium 136 mEq/L 135-14 <td> 11/26/2019 [facility] [Moles/volume] 5 06:39</td><td> [facility] in Serum or mEq/L Sodium-Serum Health Care Plasma </td><td> ice 136
(135-145) mEq/L </td> Dacrocytes RARE <td> 11/25/2019 [facility] [Presence] in 11:10</td><td> [facility] Blood by Light Tear Drop Cells Health Ca re microscopy </td><td> ice RARE
</td> Potassium 4.3 mEq/L 3.5-5. <td> 11/26/2019 [facility] [Moles/volume] 1 06:39</td><td> County in Serum or mEq/L Potassium-Serum Health Care Plasma </td><td> ice 4.3
(3.5-5.1) mEq/L </td> Carbon dioxide, 29 mEq/L 22-30 <td> 11/26/2019 [facility] total mEq/L 06:39</td><td> [facility] [Moles/volume] CO2 </td><td> Health Car e in Serum or Corporation Plasma 29
(22-30) mEq/L </td> Chloride 98 mEq/L 98-107 <td> 11/26/2019 [facility] [Moles/volume] mEq/L 06:39</td><td> County in Serum or Chloride Health Care Plasma </td><td> ice 98
(98-107) mEq/L </td> Urea nitrogen 24 mg/dL 6-22 <td> 11/26/2019 [facility] r [Mass/volume] mg/dL 06:39</td><td> County in Blood BUN Health Care </td><td><marta ice raph styleCode="Bold "> 24 H </paragraph>
(6-22) mg/dL </td> Bilirubin.total 0.4 mg/dL 0.2-1. <td> 11/22/2019 [facility] [Mass/volume] 3 21:03</td><td> County in Blood mg/dL Bilirubin - Health Care [employer] </td><td> 0.4
(0.2-1.3) mg/dL </td> Aspartate 22 U/L 4-35 <td> 11/22/2019 [facility] aminotransferas U/L 21:03</td><td> County e [Enzymatic AST (SGOT) Health Care activity/volume </td><td> ice ] in Serum or Plasma 22
(4-35) U/L </td> Alanine 11 U/L 6-55 <td> 11/22/2019 [facility] aminotransferas U/L 21:03</td><td> County e [Enzymatic ALT (SGPT) Health Care activity/volume </td><td> Corporation ] in Serum or Plasma 11
(6-55) U/L </td> Creatinine 3.97 mg/dL 0.57-1 <td> 11/26/2019 [facility] [Moles/volume] .11 06:39</td><td> County in Serum or mg/dL Creatinine. Health Care Plasma </td><td><[employer] raph styleCode="Bold "> 3.97 H </paragraph>
(0.57-1.11) mg/dL </td> Proteins - 7.2 g/dL 6.4-8. <td> 11/22/2019 [facility] Total 3 g/dL 21:03</td><td> County Proteins - Health Care [employer] </td><td> 7.2
(6.4-8.3) g/dL </td> Calcium 7.8 mg/dL 8.6-10 <td> 11/26/2019 [facility] [Mass/volume] .2 06:39</td><td> County in Blood mg/dL Calcium Health Care </td><td><[employer] raph styleCode="Bold "> 7.8 L </paragraph>
(8.6-10.2) mg/dL </td> Albumin 3.6 g/dL 3.4-4. <td> 11/22/2019 [facility] [Mass/volume] 8 g/dL 21:03</td><td> County in Serum or Albumin Health Care Plasma </td><td> ice 3.6
(3.4-4.8) g/dL </td> Anion gap in 9 mEq/L 7-13 <td> 11/26/2019 [facility] Serum or Plasma mEq/L 06:39</td><td> County Anion Gap Health Care </td><td> ice 9
(7-13) mEq/L </td> Globulin 3.6 gm/dL 2.9-4. <td> 11/22/2019 [facility] [Mass/volume] 0 21:03</td><td> County in Serum gm/dL Globulin Health Care </td><td> [facility] 3.6
(2.9-4.0) gm/dL </td> Hemolysis index No <td> 11/26/2019 [facility] of Serum or Hemolysis 06:39</td><td> [facility] Plasma Hemolysis Index Health [facility] </td><td> ice No Hemolysis
</td> Lipemic index No Lipemia <td> 11/26/2019 [facility] er of Serum or 06:39</td><td> [facility] Plasma Lipemia Index [facility] </td><td> ice No Lipemia
</td> Icteric index Not <td> 11/26/2019 [facility] r of Serum or Icteric 06:39</td><td> [facility] Plasma Icteric Index [facility] </td><td> ice Not Icteric
</td> Phosphate 6.1 mg/dL 2.3-4. <td> 11/26/2019 [facility] [Mass/volume] 7 06:39</td><td> [facility] in Serum or mg/dL Inorganic Health Care Plasma Phosphorus [facility] </td><td><marta raph styleCode="Bold "> 6.1 H </paragraph>
(2.3-4.7) mg/dL </td> Prothrombin 10.4 secs 9.8-12 <td> 11/26/2019 [facility] time (PT) .0 06:39</td><td> [facility] secs Prothrombin Health Care Time. [facility] </td><td> 10.4
(9.8-12.0) secs </td> aPTT panel - 31.0 secs 25.0-3 <td> 11/26/2019 [facility] Platelet poor 2.0 06:39</td><td> [facility] plasma secs Partial [facility] Care Thromboplastin [facility] Time </td><td> 31.0
(25.0-32.0) secs </td> Amylase 52 U/L 22-100 <td> 11/22/2019 [facility] [Enzymatic U/L 21:03</td><td> [facility] activity/volume Amylase Level Health Car e ] in Serum or </td><td> ice Plasma 52
(22-100) U/L </td> Hemoglobin A1C 4.9 % 4.0-5. <td> 11/24/2019 [facility] 6 % 08:59</td><td> [facility] Hemoglobin A1C [facility] </td><td> ice 4.9
(4.0-5.6) %
Increased risk for diabetes [...]
11 269
12 298
Source: Adapted from [place] [employer]. Standards of medical
care in diabetes-2014. Diabetes Care.2014;37([place]cpherson pp 1):S14-S80, table 8.

(4.0-5.6) % </td> Magnesium 2.2 mg/dL 1.6-2. <td> 11/26/2019 [facility] [Mass/volume] 6 06:39</td><td> County in Serum or mg/dL Magnesium Level Health Care Plasma </td><td> ice 2.2
(1.6-2.6) mg/dL </td> Cholesterol in 51 mg/dL >60 <td> 11/23/2019 [facility] HDL mg/dL 08:11</td><td> [facility] [Mass/volume] HDL Cholesterol Health Car e in Serum or </td><td> ice Plasma 51
(>60) mg/dL </td> Cholesterol in 79 mg/dL <150 <td> 11/23/2019 [facility] LDL mg/dL 08:11</td><td> [facility] [Mass/volume] LDL Cholesterol Health Car e in Serum or </td><td> ice Plasma 79
(<150) mg/dL </td> Cholesterol 146 mg/dL 125-24 <td> 11/23/2019 [facility] [Moles/volume] 0 08:11</td><td> County in Serum or mg/dL Cholesterol Health Care Plasma </td><td> ice 146
(125-240) mg/dL </td> Glucose 362 mg/dL 70-105 <td> 11/25/2019 [facility] [Mass/volume] mg/dL 21:28</td><td> County in Capillary Glucose - Health Care blood by Finger Stick ice Glucometer </td><td><marta raph styleCode="Bold "> 362 * CH </paragraph>
(70-105) mg/dL </td> Triglyceride 81 mg/dL 30-200 <td> 11/23/2019 [facility] [Mass/volume] mg/dL 08:11</td><td> County in Serum or Triglyceride Health Care Plasma </td><td> Corporation 81
(30-200) mg/dL </td> ID Date Data Source [id number] 11/23/2019 12:27:00 PM EDT [facility] [id number] Corporation Name Value Range Interpretation Description Data Sup porting Code Source(s) Document(s ) Nuclear [id number] [facility] <td> 11/26/2019 [facility] er Stress [id number] 09:54</td><td> [facility] Test,Racheal [id number] Nuclear Stress Health Care scan Non-Invasive Test,[facility] </td><td> Laboratory [id number] Advanced
[facility] Physician
Services, [id number] [address] [place] [address]
[place], [place] [id number] Phone [phone]

[phone] Fax Non-Invasive
Myocardial Cardiology Perfusion
Imaging Laboratory Regadenoson
(Lexiscan) Advanced Name: AINSLEY
LILO Physician
Study Date: Services, 11/26/2019
09:54 AM MRN: [address] [id number]
[place], [place] BP: 163/76
mmHg : 374[address] 1945
Phone [phone] Gender:
Female Age: [phone] Fax 74 yrs
Height: 62 in Account

Number: Myocardial [id number] Perfusion Weight: Imaging 165 lb HR: 65
Regadenoson (Lexiscan) BSA: 1.8 m2
Patient Name: LILO SCHMITZ Location: 5SE Reason For Study Date: Study: SYNCOPE, 11/26/2019 09:54 VTACH, AM SUBCLAVIAN SHON
MRN: History: [id number] ESRD-HD, Bipolar BP: 163/76 mmHg disorder,
Breast cancer, : S/P Chemo, Gout 1945 and Neuropathy, Gender: Female Left shoulder
fracture, Right Age: 74 yrs wrist fracture, Bariatric sx, Height: Cardiac cath 62 in Medications:
Abilify, Account Number: Amlodipine, [id number] Carbamazepine, Weight: Folic Acid, 165 lb Multivitamin,
[...] Performed Carbamazepine, by: Folic Acid, Lyric Multivitamin, [place], RN
Stress Pravastatin, Results propranolol, Protocol: Protonix, Lexiscan Seroquel, Uloric Maximum , Listerol, Predicted HR: Synthroid 148 bpm
Target HR: 126 Ordering bpm % Physician: Von Rubio Predicted HR:
51 % Referring Duration Heart Physician: Von Vazquez (mm:ss) Rate
BP Dose Performed By: Andrew Ramirez, (bpm) NSR. MD Donovan No arrhythmias. T wave

Baseline Interpretation 65 Summary 163/76
inversions in Normal line leader III. No
symptoms. Normal Lexiscan pharmacological [...] By: Donovan Ramirez MD

</td> Echo 2D [id number] [facility] <td> 11/23/2019 [facility] M-Mode [id number] 12:27</td><td> [facility] [id number] Echo 2D M-Mode Health Care (TTE) Non-Invasive Complete (TTE) [facility] Cardiology </td><td> Laboratory [id number] Advanced
[facility] Physician
Services, [id number] [address] [place] [address]
[place], [place] [id number] Phone [phone]

[phone] Fax Non-Invasive
Adult Cardiology Echocardiogram
Report Name: Laboratory AINSLEY LILO HA
Advanced Study Date:
11/23/2019 Physician 12:27 PM : Services, [address] [place] [address]s Road Gender:
Female Age: [place], [place] 74 yrs
[id number] Height: 62
in Account Phone [phone] Number:
[phone] Fax
Weight: 152 lb BSA: 1.7 m2
Patient Adult Location: 5SE Echocardiogram Reason For Report Study: SYNCOPE
Name: & COLLAPSE AINSLEY LILO HA Ordering Physician: SANDRA Study Date: BRYANNA-IN 11/23/2019 12:27 Performed By: Leydi Henriquez
Interpretation
: Summary Study 1945 was technical limited due to Gender: patient Female refusing the
Age: test. The 74 yrs left ventricle is normal in Height: 62 in size. There
is normal left Account ventricular Number: [id number] wall thickness. The overall Weight: 152 lb left
ventricular BSA: 1.7 m2 ejection
fraction Patient appears normal. Location: 5SE Regional wall
motion Reason For abnormalities Study: SYNCOPE & cannot be COLLAPSE excluded due to

limited Ordering visualization. Physician: Roque FLORES mitral BRYANNA-IN valve
regurgitation. Performed By: Pulmonary Leydi Loza artery systolic pressure is

unable to be [...] 01:04 PM

</td> ID Date Data Source [id number] 11/22/2019 09:44:00 PM EDT [facility] [id number] ice Name Value Range Interpretation Description Data Sup porting Code Source(s) Document(s ) Chest (PACSIMAGE <td> 11/22/2019 [facility] Portable 21:06</td><td> [facility] ) Final Chest Portable Health Care Result </td><td>Patient Conversation Media Name: jailene NúñezCochris="Italic TRAUMA MRN: s">(PACSIMAGE [id number] Sex: F : )</paragraph><br/ 09/26/1965 >
Final Location: F Result Admitting

Physician: Name: B[facility] EMERGENCY TRAUMA SERVICE
MRN: Requesting [id number] Sex: F Physician:
TEDDY MERAZ : 09/26/1965 [...] 11/22/2019 21:54

</td> Chest/Abd (PACSIMAGE <td> 11/22/2019 [facility] /Pelvis 21:44</td><td> County W/Out ) Final Chest/Abd/Pelvis Health Ca re Cont-CT Result W/Out Cont-CT Corporation Name: NOVEMBER, </td><td>denice BONNER styleCode="Italic Sex: F : s">(PACSIMAGE 1945 Location: F )</paragraph><br/ Admitting >
Final Physician: Result EMERGENCY

SERVICE Name: NOVEMBERLALITHA Requesting HA Physician:
MRN: SONA JORDAN [id number] Sex: F Exam: CT
THORAX/ABD/PEL : 1945 [...] 11/22/2019 23:37

</td> Cervical (PACSIMAGE <td> 11/22/2019 [facility] Spine 21:44</td><td> County W/Out ) Final Cervical Spine Health Care Contrast- Result W/Out Contrast-CT Corporation CT Name: </td><td><paragr OVERBROOK, aph TRAUMA MRN: styleCode="Italic [id number] Sex: F s">(PACSIMAGE : 09/26/1965 )</paragraph><br/ Location: F >
Final Admitting Result Physician:

EMERGENCY Name: BICKLETON, SERVICE TRAUMA Requesting
MRN: Physician: [id number] Sex: F SONA JORDAN
Exam: CT : 09/26/1965 C SPINE C- Location: F 11/22/2019
21:40 Admitting HISTORY: Physician: HISTORY: EMERGENCY SERVICE Trauma
TECHNIQUE: A Requesting noncontrast Physician: SONA kaiseretector NIKKI spiral CT

examination Exam: CT C [...] groundglass Resident opacity and Radiologist: intralobular Mart Petersne MD septal Resident thickening. Radiologist Attending

Radiologist: [...] 22:14

</td> CT T (PACSIMAGE <td> 11/22/2019 [facility] Spine 2D 21:44</td><td> [facility] ) Final T Spine 2D [facility] re Result </td><td><[employer] Name: jailene KELLOGGCode="Italic TRAUMA MRN: s">(PACSIMAGE [id number] Sex: F : )</paragraph><br/ 09/26/1965 >
Final Location: F Result Admitting

Physician: Name: BESS, EMERGENCY TRAUMA SERVICE
MRN: Requesting [id number] Sex: F Physician:
SONA JORDAN : 09/26/1965 Exam: CT Location: F T SPINE 2D
RECON Admitting 11/22/2019 Physician: 21:50 EMERGENCY SERVICE CLINICAL
INDICATION: Requesting Trauma Physician: SONA TECHNIQUE: JACQUIZANITanya Axial,

sagittal and Exam: CT T SPINE [...] 22:32

</td> CT LS (PACSIMAGE <td> 11/22/2019 [facility] Spine 2D 21:44</td><td> CT [facility] Recon ) Final LS Spine 2D [facility] C are Result </td><td>[employer] Name: sherin jailene KELLOGGCochris="Italic TRAUMA MRN: s">(PACSIMAGE [id number] Sex: F : )</paragraph><br/ 09/26/1965 >
Final Location: F Result Admitting

Physician: Name: BESS EMERGENCY TRAUMA SERVICE
MRN: Requesting [id number] Sex: F Physician:
SONA JORDAN : 09/26/1965 [...] Attending
Radiologist: the visualized Papi Foster lumbosacral MD spine. Finalizing
2. Radiologist: Please see Papi Foster dedicated CT scan MD of the abdomen Transcribed and pelvis for Date:
11/22/2019 soft tissue 22:31 findings. Finalized Date:

<b 11/22/2019 r/>
22:33 Resident Radiologist: Mart Petersen MD Resident Radiologist
Attending Radiologist: Papi Foster MD
Finalizing Radiologist: Papi Foster MD
Transcribed Date: 11/22/2019 22:31
Finalized Date: 11/22/2019 22:33

</td> Head (PACSIMAGE <td> 11/22/2019 [facility] 21:41</td><td> [facility] ) Final Head [facility] CT Result [employer] Name: </td><td><parawillard KELLOGG, ph TRAUMA MRN: styleCode="Italic [id number] Sex: F s">(PACSIMAGE : 09/26/1965 )</paragraph><br/ Location: F >
Final Admitting Result Physician:

EMERGENCY Name: BESS [facility] TRAUMA Requesting
MRN: Physician: [id number] Sex: F SONA JORDAN
Exam: CT : [...] structures.
2. 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 intraorbital silicone Resident
Radiologist: augmentation. Mart Petersen MD
Resident There is no Radiologist calvarial Attending fracture. Radiologist: Papi Foster

IMPRESSION: Finalizing
Radiologist: 1. No acute Papi Foster intracranial hemorrhage, mass Transcribed effect or shift Date: of 11/22/2019
the 21:59 midline Finalized structures. Date:
2. 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

<b r/>
Resident Radiologist: Mart Petersen MD Resident Radiologist
Attending Radiologist: Papi Foster MD
Finalizing Radiologist: Papi Foster MD
Transcribed Date: 11/22/2019 21:59
Finalized Date: 11/22/2019 22:11

</td> Hand Left (PACSIMAGE <td> 11/24/2019 [facility] 2Vw 12:03</td><td> [facility] ) Final Hand Left 2Vw Health [facility] Result </td><td>Patient Conversation Media Name: NOVEMBERkasandra MRN: styleCode="Ranjeetic [id number] Sex: F s">(PACSIMAGE : 1945 )</paragraph><br/ Location: F >
Final Admitting Result Physician:

MOOKIE Name: LILO SCHMITZ Requesting
Physician: VON PLAZA Sex: F Exam: [...] 11/24/2019 12:36

</td> ID Date Data Source [id number] 11/22/2019 09:03:00 PM EDT [facility] [place] [id number] Corporation Name Value Range Interpretation Description Data Sup porting Code Source(s) Document(s ) Antibody NEG <td> [facility] Screen 11/22/2019 [facility] 21:03</td><td> Care Antibody Corporation Screen </td><td> NEG
</td> ABO O POS <td> [facility] Verification 11/23/2019 [facility] 07:53</td><td> Care ABO Corporation Verification </td><td> O POS
</td> ABO-Rh Type O POS <td> [facility] 11/22/2019 [facility] 21:03</td><td> Care ABO-Rh Type Corporation </td><td> O POS
</td> Specimen 11/25/19 <td> [facility] expiration date 20 23:59 11/22/2019 [facility] of Blood 21:03</td><td> Care Specimen Corporation Expiration Date </td><td> 11/25/2019 23:59
</td> ID Date Data Source [id number] 09/14/2019 06:58:00 AM [facility] TEST PERFORMED BY [employer] ULTRA SENSITIVE CENTAUR CHEMILUMINESCENCE METHOD. Name Value Range Interpretation Description Data Sup porting Code Source(s) Document(s ) Troponin 0.12 [facility] I.cardiac ng/mL Hospital [Mass/volume ] in Serum or Plasma ID Date Data Source [id number] 09/14/2019 06:58:00 AM [facility] Name Value Range Interpretation Description Data Sup porting Code Source(s) Document(s ) Phosphate 9.0 mg/dL [facility] [Mass/volume] Hospital in Serum or Plasma ID Date Data Source [id number] 09/14/2019 06:58:00 AM [facility] Name Value Range Interpretation Description Data Sup porting Code Source(s) Document(s ) Monocytes 0.49 [facility] [#/volume] in 10*3/uL Hospital Blood by Automated count ID Date Data Source [id number] 09/14/2019 06:58:00 AM [facility] Value Range Interpretation Description Data Sup porting Code Source(s) Document(s ) Lymphocytes 1.10 [facility] [#/volume] in 10*3/uL [facility] Blood by Automated count ID Date Data Source [id number] 09/14/2019 06:58:00 AM [facility] Value Range Interpretation Description Data Sup porting Code Source(s) Document(s ) Neutrophils 2.24 [facility] [#/volume] in 10*3/uL [facility] Blood by Automated count ID Date Data Source [id number] 09/14/2019 06:58:00 AM [facility] Value Range Interpretation Description Data Sup porting Code Source(s) Document(s ) Nucleated 0.5 % [facility] erythrocytes/10 Hospital 0 leukocytes [Ratio] in Blood by Automated count ID Date Data Source [id number] 09/14/2019 06:58:00 AM [facility] Value Range Interpretation Description Data Sup porting Code Source(s) Document(s ) Immature 0.2 % [facility] granulocytes/10 Hospital 0 leukocytes in Blood by Automated count ID Date Data Source [id number] 09/14/2019 06:58:00 AM [facility] Value Range Interpretation Description Data Sup porting Code Source(s) Document(s ) Basophils/100 0.7 % [facility] leukocytes in Hospital Blood by Automated count ID Date Data Source [id number] 09/14/2019 06:58:00 AM EST [facility] Name Value Range Interpretation Description Data Sup porting Code Source(s) Document(s ) Eosinophils/100 7.6 % [facility] leukocytes in Hospital Blood by Automated count ID Date Data Source [id number] 09/14/2019 06:58:00 AM EST [facility] Name Value Range Interpretation Description Data Sup porting Code Source(s) Document(s ) Monocytes/100 11.7 % [facility] leukocytes in Hospital Blood by Automated count ID Date Data Source [id number] 09/14/2019 06:58:00 AM EST [facility] Name Value Range Interpretation Description Data Sup porting Code Source(s) Document(s ) Lymphocytes/10 26.3 % [facility] 0 leukocytes Hospital in Blood by Automated count ID Date Data Source [id number] 09/14/2019 06:58:00 AM [facility] Name Value Range Interpretation Description Data Sup porting Code Source(s) Document(s ) Neutrophils/10 53.5 % [facility] 0 leukocytes Hospital in Blood by Automated count ID Date Data Source [id number] 09/14/2019 06:58:00 AM [facility] PLATELET COUNT INVALID DUE TO FIBRIN AND PLATELET CLUMPS NOTED ON SMEAR. Name Value Range Interpretation Description Data Sup porting Code Source(s) Document(s ) Platelets 10*3/uL [facility] [#/volume] in Hospital Blood by Automated count ID Date Data Source [id number] 09/14/2019 06:58:00 AM [facility] Name Value Range Interpretation Description Data Sup porting Code Source(s) Document(s ) Erythrocyte 15.7 % [facility] Hospital width [Ratio] by Automated count ID Date Data Source [id number] 09/14/2019 06:58:00 AM [facility] Name Value Range Interpretation Description Data Sup porting Code Source(s) Document(s ) Erythrocyte mean 31.1 [facility] corpuscular g/dL Hospital hemoglobin concentration [Mass/volume] by Automated count ID Date Data Source [id number] 09/14/2019 06:58:00 AM [facility] Value Range Interpretation Description Data Sup porting Code Source(s) Document(s ) Erythrocyte 32.5 pg [facility] corpuscular hemoglobin [Entitic mass] by Automated count ID Date Data Source [id number] 09/14/2019 06:58:00 AM [facility] Value Range Interpretation Description Data Sup porting Code Source(s) Document(s ) Erythrocyte 104.6 fL [facility] corpuscular volume [Entitic volume] by Automated count ID Date Data Source [id number] 09/14/2019 06:58:00 AM [facility] Value Range Interpretation Description Data Sup porting Code Source(s) Document(s ) Hematocrit 29.3 % [facility] [Volume Hospital Fraction] of Blood by Automated count ID Date Data Source [id number] 09/14/2019 06:58:00 AM [facility] Value Range Interpretation Description Data Sup porting Code Source(s) Document(s ) Hemoglobin 9.1 g/dL [facility] [Mass/volume] Hospital in Blood ID Date Data Source [id number] 09/14/2019 06:58:00 AM [facility] Value Range Interpretation Description Data Sup porting Code Source(s) Document(s ) Erythrocytes 2.80 [facility] [#/volume] in 10*6/uL Hospital Blood by Automated count ID Date Data Source [id number] 09/14/2019 06:58:00 AM [facility] Value Range Interpretation Description Data Sup porting Code Source(s) Document(s ) Leukocytes 4.2 [facility] [#/volume] in 10*3/uL Hospital Blood by Automated count ID Date Data Source [id number] 09/14/2019 06:58:00 AM [facility] Name Value Range Interpretation Description Data Sup porting Code Source(s) Document(s ) Magnesium 2.1 mg/dL [facility] [Mass/volume] Hospital in Serum or Plasma ID Date Data Source [id number] 09/14/2019 06:58:00 AM [facility] Value Range Interpretation Description Data Sup porting Code Source(s) Document(s ) Calcium 6.9 mg/dL [facility] [Mass/volume Hospital ] in Serum or Plasma ID Date Data Source [id number] 09/14/2019 06:58:00 AM [facility] Value Range Interpretation Code Description Data Sharon rce(s) Supporting Document(s ) Urea 8.9 [facility] nitrogen/Cre Hospital atinine [Mass Ratio] in Serum or Plasma ID Date Data Source [id number] 09/14/2019 06:58:00 AM [facility] Value Range Interpretation Description Data Sup porting Code Source(s) Document(s ) Creatinine 5.5 mg/dL [facility] [Mass/volume] Hospital in Serum or Plasma ID Date Data Source [id number] 09/14/2019 06:58:00 AM [facility] Name Value Range Interpretation Description Data Sup porting Code Source(s) Document(s ) Urea 49 mg/dL [facility] nitrogen Hospital [Mass/volume ] in Serum or Plasma ID Date Data Source [id number] 09/14/2019 06:58:00 AM [facility] Value Range Interpretation Code Description Data Sharon rce(s) Supporting Document(s ) Anion gap in 19 [facility] Serum or [facility] Plasma ID Date Data Source [id number] 09/14/2019 06:58:00 AM EST [facility] Name Value Range Interpretation Description Data Sup porting Code Source(s) Document(s ) Carbon 21 mmol/L [facility] dioxide, Hospital total [Moles/volu me] in Serum or Plasma ID Date Data Source [id number] 09/14/2019 06:58:00 AM EST [facility] Name Value Range Interpretation Description Data Sup porting Code Source(s) Document(s ) Chloride 104 [facility] [Moles/volum mmol/L Hospital e] in Serum or Plasma ID Date Data Source [id number] 09/14/2019 06:58:00 AM EST [facility] MODERATE HEMOLYSIS Name Value Range Interpretation Description Data Sup porting Code Source(s) Document(s ) Potassium 5.2 [facility] [Moles/volume mmol/L Hospital ] in Serum or Plasma ID Date Data Source [id number] 09/14/2019 06:58:00 AM EST [facility] Name Value Range Interpretation Description Data Sup porting Code Source(s) Document(s ) Sodium 139 mmol/L [facility] [Moles/volu Hospital me] in Serum or Plasma ID Date Data Source [id number] 09/14/2019 06:58:00 AM EST [facility] Name Value Range Interpretation Description Data Sup porting Code Source(s) Document(s ) Glucose 94 mg/dL [facility] [Mass/volume Hospital ] in Serum or Plasma ID Date Data Source [id number] 09/14/2019 06:58:00 AM EST [facility] Name Value Range Interpretation Code Description Data Supporting Source(s) Document(s ) NUCLEATED RBCS 0.5 % [facility] (AUTO Hospital DIFF%)DIS ID Date Data Source [id number] 09/14/2019 06:58:00 AM [facility] Value Range Interpretation Description Data Sup porting Code Source(s) Document(s ) Differential AUTOMATED [facility] cell count [facility] method - Blood ID Date Data Source [id number] 09/14/2019 06:58:00 AM [facility] Value Range Interpretation Description Data Sup porting Code Source(s) Document(s ) Immature 0.01 [facility] granulocytes 10*3/uL Hospital [#/volume] in Blood by Automated count ID Date Data Source [id number] 09/14/2019 06:58:00 AM [facility] Value Range Interpretation Description Data Sup porting Code Source(s) Document(s ) Basophils 0.03 [facility] [#/volume] in 10*3/uL [facility] Blood by Automated count ID Date Data Source [id number] 09/14/2019 06:58:00 AM [facility] Value Range Interpretation Description Data Sup porting Code Source(s) Document(s ) Eosinophils 0.32 [facility] [#/volume] in 10*3/uL [facility] Blood by Automated count ID Date Data Source [id number] 09/14/2019 12:06:00 AM [facility] Value Range Interpretation Description Data Sup porting Code Source(s) Document(s ) Lactate 0.8 [facility] [Moles/volum mmol/L Hospital e] in Serum or Plasma ID Date Data Source [id number] 09/13/2019 06:56:00 PM [facility] Value Range Interpretation Description Data Sup porting Code Source(s) Document(s ) Procalcitonin 3.1 [facility] [Mass/volume] in ng/mL Hospital Serum or Plasma ID Date Data Source [id number] 09/13/2019 06:56:00 PM [facility] Value Range Interpretation Code Description Data Sharon rce(s) Supporting Document(s ) Lipase 16 U/L [facility] [Enzymatic Hospital activity/vo lume] in Serum or Plasma ID Date Data Source [id number] 09/13/2019 06:56:00 PM EST [facility] Name Value Range Interpretation Description Data Sup porting Code Source(s) Document(s ) Aspartate 18 U/L [facility] aminotransferase [place] [Enzymatic Hospital activity/volume] in Serum or Plasma ID Date Data Source [id number] 09/13/2019 06:56:00 PM EST [facility] Name Value Range Interpretation Description Data Sup porting Code Source(s) Document(s ) Alanine 11 U/L [facility] aminotransferase [place] [Enzymatic Hospital activity/volume] in Serum or Plasma ID Date Data Source [id number] 09/13/2019 06:56:00 PM [facility] Name Value Range Interpretation Description Data Sup porting Code Source(s) Document(s ) Alkaline 116 U/L [facility] phosphatase Hospital [Enzymatic activity/volume ] in Serum or Plasma ID Date Data Source [id number] 09/13/2019 06:56:00 PM [facility] Name Value Range Interpretation Description Data Sup porting Code Source(s) Document(s ) Bilirubin.t 0.2 mg/dL [facility] [Mass/volum e] in Serum or Plasma ID Date Data Source [id number] 09/13/2019 06:56:00 PM [facility] Name Value Range Interpretation Code Description Data Sharon rce(s) Supporting Document(s ) Albumin/Glob 1.3 [facility] ulin [Mass Hospital Ratio] in Serum or Plasma ID Date Data Source [id number] 09/13/2019 06:56:00 PM [facility] Name Value Range Interpretation Description Data Sup porting Code Source(s) Document(s ) Albumin 4.0 g/dL [facility] [Mass/volume Hospital ] in Serum or Plasma ID Date Data Source [id number] 09/13/2019 06:56:00 PM [facility] Name Value Range Interpretation Description Data Sup porting Code Source(s) Document(s ) Protein 7.2 g/dL [facility] [Mass/volume [facility] ] in Serum or Plasma ID Date Data Source [id number] 09/13/2019 06:56:00 PM [facility] THERAPEUTIC RANGES:UNFRACTIONATED HEPARI N THERAPY: 60-90 SECONDSARGATROBAN THERAPY: 49-99 SECONDS Name Value Range Interpretation Description Data Sup porting Code Source(s) Document(s ) aPTT in 33.3 s [facility] Platelet poor [facility] plasma by Coagulation assay ID Date Data Source [id number] 09/13/2019 06:56:00 PM [facility] THERAPEUTIC RANGE FOR STANDARD ORALANTIC OAGULANT THERAPY: 2.0-3.0THERAPEUTIC RANGE FOR HIGH DOSE ORALANTICOAGULANT THERAPY (MECHANICAL HEARTVALVE REPLACEMENT): 2.5-3.5 Name Value Range Interpretation Description Data Sup porting Code Source(s) Document(s ) INR in Platelet 1.0 [facility] poor plasma by Hospital Coagulation assay ID Date Data Source [id number] 09/13/2019 06:56:00 PM [facility] Name Value Range Interpretation Description Data Sup porting Code Source(s) Document(s ) PT panel - 10.9 s [facility] Platelet poor [facility] plasma by Coagulation assay ID Date Data Source [id number] 09/13/2019 06:56:00 PM [facility] Name Value Range Interpretation Description Data Sup porting Code Source(s) Document(s ) Manual MANUAL [facility] differential Hospital performed [Presence] in Blood ID Date Data Source [id number] 09/13/2019 06:56:00 PM [facility] Name Value Range Interpretation Code Description Data Sharon rce(s) Supporting Document(s ) Cells 100 [facility] Counted Hospital Total [#] in Blood ID Date Data Source [id number] 09/13/2019 06:56:00 PM [facility] PLT ESTIMATE DECREASED Name Value Range Interpretation Description Data Sup porting Code Source(s) Document(s ) PLATELET PRESENT [facility] COMMENT Hospital ID Date Data Source [id number] 09/13/2019 06:56:00 PM [facility] Name Value Range Interpretation Description Data Sup porting Code Source(s) Document(s ) Platelets DECREASED [facility] [#/volume] in Hospital Blood by Estimate ID Date Data Source [id number] 09/13/2019 06:56:00 PM [facility] Name Value Range Interpretation Code Description Data Sharon rce(s) Supporting Document(s ) ACANTHOCYTES [facility] ID Date Data Source [id number] 09/13/2019 06:56:00 PM [facility] Name Value Range Interpretation Code Description Data Sharon rce(s) Supporting Document(s ) TEARDROP OCC [facility] CELLS Hospital ID Date Data Source [id number] 09/13/2019 06:56:00 PM [facility] Name Value Range Interpretation Code Description Data Sharon rce(s) Supporting Document(s ) OVALOCYTES [facility] Hospital ID Date Data Source [id number] 09/13/2019 06:56:00 PM [facility] Name Value Range Interpretation Code Description Data Supporting Source(s) Document(s ) POLYCHROMASIA [facility] ID Date Data Source [id number] 09/13/2019 06:56:00 PM EST [facility] Name Value Range Interpretation Code Description Data Sharon rce(s) Supporting Document(s ) HYPOCHROMIA 1+ [facility] ID Date Data Source [id number] 09/13/2019 06:56:00 PM EST [facility] Name Value Range Interpretation Code Description Data Sharon rce(s) Supporting Document(s ) MACROCYTOSIS 1+ [facility] ID Date Data Source [id number] 09/13/2019 06:56:00 PM EST [facility] Name Value Range Interpretation Code Description Data Sharon rce(s) Supporting Document(s ) ANISOCYTOSIS 1+ [facility] ID Date Data Source [id number] 09/13/2019 06:56:00 PM EST [facility] Name Value Range Interpretation Description Data Sup porting Code Source(s) Document(s ) Basophils 0.12 [facility] [#/volume] in 10*3/uL Hospital Blood by Manual count ID Date Data Source [id number] 09/13/2019 06:56:00 PM EST [facility] Name Value Range Interpretation Description Data Sup porting Code Source(s) Document(s ) Eosinophils 0.29 [facility] [#/volume] in 10*3/uL Hospital Blood by Manual count ID Date Data Source [id number] 09/13/2019 06:56:00 PM EST [facility] Name Value Range Interpretation Description Data Sup porting Code Source(s) Document(s ) Monocytes 0.35 [facility] [#/volume] in 10*3/uL Hospital Blood by Manual count ID Date Data Source [id number] 09/13/2019 06:56:00 PM EST [facility] Name Value Range Interpretation Description Data Sup porting Code Source(s) Document(s ) Lymphocytes 1.74 [facility] [#/volume] in 10*3/uL Hospital Blood by Manual count ID Date Data Source [id number] 09/13/2019 06:56:00 PM EST [facility] Name Value Range Interpretation Description Data Sup porting Code Source(s) Document(s ) Neutrophils 3.31 [facility] [#/volume] in 10*3/uL Hospital Blood by Manual count ID Date Data Source [id number] 09/13/2019 06:56:00 PM EST [facility] Name Value Range Interpretation Description Data Sup porting Code Source(s) Document(s ) Basophils/100 2 % [facility] leukocytes in Hospital Blood by Manual count ID Date Data Source [id number] 09/13/2019 06:56:00 PM EST [facility] Value Range Interpretation Description Data Sup porting Code Source(s) Document(s ) Eosinophils/100 5 % [facility] leukocytes in Hospital Blood by Manual count ID Date Data Source [id number] 09/13/2019 06:56:00 PM EST [facility] Name Value Range Interpretation Description Data Sup porting Code Source(s) Document(s ) Monocytes/100 6 % [facility] leukocytes in Hospital Blood by Manual count ID Date Data Source [id number] 09/13/2019 06:56:00 PM EST [facility] Value Range Interpretation Description Data Sup porting Code Source(s) Document(s ) Lymphocytes/100 30 % [facility] leukocytes in Hospital Blood by Manual count ID Date Data Source [id number] 09/13/2019 06:56:00 PM EST [facility] Name Value Range Interpretation Description Data Sup porting Code Source(s) Document(s ) Band form 1 % [facility] neutrophils/100 [facility] leukocytes in Blood ID Date Data Source [id number] 09/13/2019 06:56:00 PM EST [facility] Name Value Range Interpretation Description Data Sup porting Code Source(s) Document(s ) Neutrophils/100 56 % [facility] leukocytes in Hospital Blood by Manual count ID Date Data Source [id number] 09/13/2019 06:56:00 PM [facility] Name Value Range Interpretation Description Data Sup porting Code Source(s) Document(s ) Platelet mean 11.8 fL [facility] Hospital [Entitic volume] in Blood by Automated count ID Date Data Source [id number] 09/13/2019 06:29:00 PM [facility] Name Value Range Interpretation Description Data Sup porting Code Source(s) Document(s ) Bacteria No growth [facility] identified in Hospital Blood by Culture ID Date Data Source [id number] 09/13/2019 06:24:00 PM [facility] Name Value Range Interpretation Description Data Sup porting Code Source(s) Document(s ) GLUCOSE RN Notified [facility] ID Date Data Source [id number] 09/13/2019 06:24:00 PM [facility] [employer] 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 PIEDRA Name Value Range Interpretation Description Data Sup porting Code Source(s) Document(s ) Glucose 89 mg/dL [facility] [Mass/volume] Hospital in Capillary blood by Glucometer ID Date Data Source [id number] 09/06/2019 12:02:00 PM [facility] [employer] Operator:MABEL GRIJALVA Name Value Range Interpretation Description Data Sup porting Code Source(s) Document(s ) Glucose 76 mg/dL [facility] [Mass/volume[facility] in Capillary blood by Glucometer ID Date Data Source [id number] 09/06/2019 07:54:00 AM [facility] Name Value Range Interpretation Description Data Sup porting Code Source(s) Document(s ) Phosphate 6.0 mg/dL [facility] [Mass/volume[facility] in Serum or Plasma ID Date Data Source [id number] 09/06/2019 07:54:00 AM EST [facility] Name Value Range Interpretation Description Data Sup porting Code Source(s) Document(s ) Magnesium 2.2 mg/dL [facility] [Mass/volume] Hospital in Serum or Plasma ID Date Data Source [id number] 09/06/2019 07:54:00 AM EST [facility] Name Value Range Interpretation Description Data Sup porting Code Source(s) Document(s ) Calcium 7.9 mg/dL [facility] [Mass/volume Hospital ] in Serum or Plasma ID Date Data Source [id number] 09/06/2019 07:54:00 AM EST [facility] Name Value Range Interpretation Code Description Data Sharon rce(s) Supporting Document(s ) Urea 6.4 [facility] nitrogen/Cre [facility] atinine [Mass Ratio] in Serum or Plasma ID Date Data Source [id number] 09/06/2019 07:54:00 AM EST [facility] Name Value Range Interpretation Description Data Sup porting Code Source(s) Document(s ) Creatinine 4.5 mg/dL [facility] [Mass/volume] Hospital in Serum or Plasma ID Date Data Source [id number] 09/06/2019 07:54:00 AM EST [facility] Name Value Range Interpretation Description Data Sup porting Code Source(s) Document(s ) Urea 29 mg/dL [facility] nitrogen [facility] [Mass/volume ] in Serum or Plasma ID Date Data Source [id number] 09/06/2019 07:54:00 AM EST [facility] Name Value Range Interpretation Code Description Data Sharon rce(s) Supporting Document(s ) Anion gap in 13 [facility] Serum or Hospital Plasma ID Date Data Source [id number] 09/06/2019 07:54:00 AM EST [facility] Name Value Range Interpretation Description Data Sup porting Code Source(s) Document(s ) Carbon 28 mmol/L [facility] dioxide, Hospital total [Moles/volu me] in Serum or Plasma ID Date Data Source [id number] 09/06/2019 07:54:00 AM EST [facility] Name Value Range Interpretation Description Data Sup porting Code Source(s) Document(s ) Chloride 102 [facility] [Moles/volum mmol/L Hospital e] in Serum or Plasma ID Date Data Source [id number] 09/06/2019 07:54:00 AM EST [facility] HEMOLYSIS Name Value Range Interpretation Description Data Sup porting Code Source(s) Document(s ) Potassium 4.7 [facility] [Moles/volume mmol/L Hospital ] in Serum or Plasma ID Date Data Source [id number] 09/06/2019 07:54:00 AM [facility] Name Value Range Interpretation Description Data Sup porting Code Source(s) Document(s ) Sodium 138 mmol/L [facility] [Moles/volu Hospital me] in Serum or Plasma ID Date Data Source [id number] 09/06/2019 07:54:00 AM EST [facility] Name Value Range Interpretation Description Data Sup porting Code Source(s) Document(s ) Glucose 83 mg/dL [facility] [Mass/volume Hospital ] in Serum or Plasma ID Date Data Source [id number] 09/06/2019 07:54:00 AM [facility] Hospital Name Value Range Interpretation Description Data Sup porting Code Source(s) Document(s ) Differential AUTOMATED [facility] cell count Hospital method - Blood ID Date Data Source [id number] 09/06/2019 07:54:00 AM [facility] Name Value Range Interpretation Description Data Sup porting Code Source(s) Document(s ) Immature 0.02 [facility] granulocytes 10*3/uL Hospital [#/volume] in Blood by Automated count ID Date Data Source [id number] 09/06/2019 07:54:00 AM EST [facility] Name Value Range Interpretation Description Data Sup porting Code Source(s) Document(s ) Basophils 0.03 [facility] [#/volume] in 10*3/uL Hospital Blood by Automated count ID Date Data Source [id number] 09/06/2019 07:54:00 AM EST [facility] Name Value Range Interpretation Description Data Sup porting Code Source(s) Document(s ) Eosinophils 0.59 [facility] [#/volume] in 10*3/uL Hospital Blood by Automated count ID Date Data Source [id number] 09/06/2019 07:54:00 AM EST [facility] Name Value Range Interpretation Description Data Sup porting Code Source(s) Document(s ) Monocytes 0.53 [facility] [#/volume] in 10*3/uL Hospital Blood by Automated count ID Date Data Source [id number] 09/06/2019 07:54:00 AM EST [facility] Name Value Range Interpretation Description Data Sup porting Code Source(s) Document(s ) Lymphocytes 1.51 [facility] [#/volume] in 10*3/uL Hospital Blood by Automated count ID Date Data Source [id number] 09/06/2019 07:54:00 AM EST [facility] Name Value Range Interpretation Description Data Sup porting Code Source(s) Document(s ) Neutrophils 2.83 [facility] [#/volume] in 10*3/uL Hospital Blood by Automated count ID Date Data Source [id number] 09/06/2019 07:54:00 AM EST [facility] Name Value Range Interpretation Description Data Sup porting Code Source(s) Document(s ) Nucleated 0.0 % [facility] erythrocytes/10 [facility] 0 leukocytes [Ratio] in Blood by Automated count ID Date Data Source [id number] 09/06/2019 07:54:00 AM EST [facility] Name Value Range Interpretation Description Data Sup porting Code Source(s) Document(s ) Immature 0.4 % [facility] granulocytes/10 [facility] 0 leukocytes in Blood by Automated count ID Date Data Source [id number] 09/06/2019 07:54:00 AM EST [facility] Name Value Range Interpretation Description Data Sup porting Code Source(s) Document(s ) Basophils/100 0.5 % [facility] leukocytes in Hospital Blood by Automated count ID Date Data Source [id number] 09/06/2019 07:54:00 AM EST [facility] Name Value Range Interpretation Description Data Sup porting Code Source(s) Document(s ) Eosinophils/10 10.7 % [facility] 0 leukocytes Hospital in Blood by Automated count ID Date Data Source [id number] 09/06/2019 07:54:00 AM EST [facility] Name Value Range Interpretation Description Data Sup porting Code Source(s) Document(s ) Monocytes/100 9.6 % [facility] leukocytes in Hospital Blood by Automated count ID Date Data Source [id number] 09/06/2019 07:54:00 AM EST [facility] Name Value Range Interpretation Description Data Sup porting Code Source(s) Document(s ) Lymphocytes/10 27.4 % [facility] 0 leukocytes Hospital in Blood by Automated count ID Date Data Source [id number] 09/06/2019 07:54:00 AM EST [facility] Name Value Range Interpretation Description Data Sup porting Code Source(s) Document(s ) Neutrophils/10 51.4 % [facility] 0 leukocytes Hospital in Blood by Automated count ID Date Data Source [id number] 09/06/2019 07:54:00 AM [facility] Name Value Range Interpretation Description Data Sup porting Code Source(s) Document(s ) Platelet mean 11.3 fL [facility] volume [facility] [Entitic volume] in Blood by Automated count ID Date Data Source [id number] 09/06/2019 07:54:00 AM [facility] Name Value Range Interpretation Description Data Sup porting Code Source(s) Document(s ) Platelets 117 [facility] [#/volume] in 10*3/uL Hospital Blood by Automated count ID Date Data Source [id number] 09/06/2019 07:54:00 AM [facility] Value Range Interpretation Description Data Sup porting Code Source(s) Document(s ) Erythrocyte 19.2 % [facility] Hospital width [Ratio] by Automated count ID Date Data Source [id number] 09/06/2019 07:54:00 AM [facility] Value Range Interpretation Description Data Sup porting Code Source(s) Document(s ) Erythrocyte mean 30.2 [facility] corpuscular g/dL Hospital hemoglobin concentration [Mass/volume] by Automated count ID Date Data Source [id number] 09/06/2019 07:54:00 AM [facility] Value Range Interpretation Description Data Sup porting Code Source(s) Document(s ) Erythrocyte 32.2 pg [facility] corpuscular hemoglobin [Entitic mass] by Automated count ID Date Data Source [id number] 09/06/2019 07:54:00 AM [facility] Value Range Interpretation Description Data Sup porting Code Source(s) Document(s ) Erythrocyte 106.6 fL [facility] corpuscular volume [Entitic volume] by Automated count ID Date Data Source [id number] 09/06/2019 07:54:00 AM [facility] Name Value Range Interpretation Description Data Sup porting Code Source(s) Document(s ) Hematocrit 32.4 % [facility] [Volume Hospital Fraction] of Blood by Automated count ID Date Data Source [id number] 09/06/2019 07:54:00 AM [facility] Name Value Range Interpretation Description Data Sup porting Code Source(s) Document(s ) Hemoglobin 9.8 g/dL [facility] [Mass/volume[facility] in Blood ID Date Data Source [id number] 09/06/2019 07:54:00 AM [facility] Name Value Range Interpretation Description Data Sup porting Code Source(s) Document(s ) Erythrocytes 3.04 [facility] [#/volume] in 10*6/uL Hospital Blood by Automated count ID Date Data Source [id number] 09/06/2019 07:54:00 AM [facility] Name Value Range Interpretation Description Data Sup porting Code Source(s) Document(s ) Leukocytes 5.5 [facility] [#/volume] in 10*3/uL Hospital Blood by Automated count ID Date Data Source [id number] 09/05/2019 09:09:00 AM [facility] THERAPEUTIC RANGES:UNFRACTIONATED HEPARI N THERAPY: 60-90 SECONDSARGATROBAN THERAPY: 49-99 SECONDS Name Value Range Interpretation Description Data Sup porting Code Source(s) Document(s ) aPTT in 31.9 s [facility] Platelet poor [facility] plasma by Coagulation assay ID Date Data Source [id number] 09/05/2019 09:09:00 AM [facility] THERAPEUTIC RANGE FOR STANDARD ORALANTIC OAGULANT THERAPY: 2.0-3.0THERAPEUTIC RANGE FOR HIGH DOSE ORALANTICOAGULANT THERAPY (MECHANICAL HEARTVALVE REPLACEMENT): 2.5-3.5 Name Value Range Interpretation Description Data Sup porting Code Source(s) Document(s ) INR in Platelet 1.0 [facility] poor plasma by Hospital Coagulation assay ID Date Data Source [id number] 09/05/2019 09:09:00 AM EST [facility] Name Value Range Interpretation Description Data Sup porting Code Source(s) Document(s ) PT panel - 10.7 s [facility] Platelet poor Hospital plasma by Coagulation assay ID Date Data Source [id number] 09/04/2019 02:38:00 AM [facility] Hospital Name Value Range Interpretation Description Data Sup porting Code Source(s) Document(s ) Ferritin 811.0 [facility] [Mass/volume ng/mL Hospital ] in Serum or Plasma ID Date Data Source [id number] 09/04/2019 02:38:00 AM [facility] Hospital Name Value Range Interpretation Description Data Sup porting Code Source(s) Document(s ) Folate > 24.0 [facility] [Mass/volum ng/mL Hospital e] in Serum or Plasma ID Date Data Source [id number] 09/04/2019 02:38:00 AM [facility] Name Value Range Interpretation Description Data Sup porting Code Source(s) Document(s ) Cobalamin 1387 [facility] (Vitamin B12) pg/mL Hospital [Mass/volume] in Serum or Plasma ID Date Data Source [id number] 09/04/2019 02:38:00 AM [facility] Hospital Name Value Range Interpretation Description Data Sup porting Code Source(s) Document(s ) Iron saturation 25 % [facility] [Mass Fraction] Hospital in Serum or Plasma ID Date Data Source [id number] 09/04/2019 02:38:00 AM EST [facility] Name Value Range Interpretation Description Data Sup porting Code Source(s) Document(s ) UNSAT IRON 134 ug/dL [facility] CAPACITY ID Date Data Source [id number] 09/04/2019 02:38:00 AM [facility] Value Range Interpretation Description Data Sup porting Code Source(s) Document(s ) Iron binding 180 ug/dL [facility] capacity [facility] [Mass/volume ] in Serum or Plasma ID Date Data Source [id number] 09/04/2019 02:38:00 AM [facility] Value Range Interpretation Code Description Data Supporting Source(s) Document(s ) Iron 46 ug/dL [facility] [Mass/volum Hospital e] in Serum or Plasma ID Date Data Source [id number] 09/04/2019 02:38:00 AM [facility] Value Range Interpretation Code Description Data Supporting Source(s) Document(s ) Immature 17.9 % [facility] reticulocytes Hospital /Reticulocyte s.total in Blood ID Date Data Source [id number] 09/04/2019 02:38:00 AM [facility] Value Range Interpretation Description Data Sup porting Code Source(s) Document(s ) Reticulocytes 0.07 [facility] [#/volume] in 10*6/uL Hospital Blood by Automated count ID Date Data Source [id number] 09/04/2019 02:38:00 AM [facility] Value Range Interpretation Description Data Sup porting Code Source(s) Document(s ) Reticulocytes/10 3.58 % [facility] 0 erythrocytes Hospital in Blood by Automated count ID Date Data Source [id number] 09/04/2019 02:38:00 AM [facility] Value Range Interpretation Code Description Data Sharon rce(s) Supporting Document(s ) ELLIPTOCYTES [facility] ID Date Data Source [id number] 09/04/2019 02:38:00 AM [facility] Name Value Range Interpretation Code Description Data Sharon rce(s) Supporting Document(s ) MICROCYTOSIS [facility] ID Date Data Source [id number] 09/04/2019 02:38:00 AM [facility] Value Range Interpretation Description Data Sup porting Code Source(s) Document(s ) POIKILOCYTOSIS [facility] ID Date Data Source [id number] 09/04/2019 02:38:00 AM [facility] Value Range Interpretation Description Data Sup porting Code Source(s) Document(s ) Myelocytes/100 0 % [facility] leukocytes in Hospital Blood by Manual count ID Date Data Source [id number] 09/04/2019 02:38:00 AM [facility] Value Range Interpretation Description Data Sup porting Code Source(s) Document(s ) Ferritin 811.0 [facility] [Mass/volume ng/mL Hospital ] in Serum or Plasma ID Date Data Source [id number] 09/04/2019 02:38:00 AM [facility] Value Range Interpretation Description Data Sup porting Code Source(s) Document(s ) Folate > 24.0 [facility] [Mass/volum ng/mL Hospital e] in Serum or Plasma ID Date Data Source [id number] 09/04/2019 02:38:00 AM [facility] Value Range Interpretation Description Data Sup porting Code Source(s) Document(s ) Cobalamin 1387 [facility] (Vitamin B12) pg/mL Hospital [Mass/volume] in Serum or Plasma ID Date Data Source [id number] 09/04/2019 02:38:00 AM [facility] Value Range Interpretation Description Data Sup porting Code Source(s) Document(s ) Iron saturation 25 % [facility] [Mass Fraction] Hospital in Serum or Plasma ID Date Data Source [id number] 09/04/2019 02:38:00 AM EST [facility] Name Value Range Interpretation Description Data Sup porting Code Source(s) Document(s ) UNSAT IRON 134 ug/dL [facility] CAPACITY ID Date Data Source [id number] 09/04/2019 02:38:00 AM EST [facility] Name Value Range Interpretation Description Data Sup porting Code Source(s) Document(s ) Iron binding 180 ug/dL [facility] capacity [facility] [Mass/volume ] in Serum or Plasma ID Date Data Source [id number] 09/04/2019 02:38:00 AM [facility] Hospital Name Value Range Interpretation Code Description Data Supporting Source(s) Document(s ) Iron 46 ug/dL [facility] [Mass/volum Hospital e] in Serum or Plasma ID Date Data Source [id number] 09/04/2019 02:38:00 AM [facility] Hospital TEST PERFORMED BY [employer]ENS[employer] [facility] CHEMILUMINESCENCE METHOD. Name Value Range Interpretation Description Data Sup porting Code Source(s) Document(s ) Troponin 0.16 [facility] I.cardiac ng/mL Hospital [Mass/volume ] in Serum or Plasma ID Date Data Source [id number] 09/04/2019 02:38:00 AM [facility] Hospital Name Value Range Interpretation Code Description Data Sharon rce(s) Supporting Document(s ) Lipase 17 U/L [facility] [Enzymatic Hospital activity/vo lume] in Serum or Plasma ID Date Data Source [id number] 09/04/2019 02:38:00 AM [facility] Hospital Name Value Range Interpretation Description Data Sup porting Code Source(s) Document(s ) Aspartate 21 U/L [facility] aminotransferase [facility] [Enzymatic Hospital activity/volume] in Serum or Plasma ID Date Data Source [id number] 09/04/2019 02:38:00 AM [facility] Hospital Name Value Range Interpretation Description Data Sup porting Code Source(s) Document(s ) Alanine 9 U/L [facility] aminotransferase Hospital [Enzymatic activity/volume] in Serum or Plasma ID Date Data Source [id number] 09/04/2019 02:38:00 AM [facility] Hospital Name Value Range Interpretation Description Data Sup porting Code Source(s) Document(s ) Alkaline 89 U/L [facility] phosphatase Hospital [Enzymatic activity/volume ] in Serum or Plasma ID Date Data Source [id number] 09/04/2019 02:38:00 AM [facility] Value Range Interpretation Description Data Sup porting Code Source(s) Document(s ) Bilirubin.t 0.2 mg/dL [facility] [Mass/volum e] in Serum or Plasma ID Date Data Source [id number] 09/04/2019 02:38:00 AM [facility] Name Value Range Interpretation Code Description Data Sharon rce(s) Supporting Document(s ) Albumin/Glob 1.5 [facility] ulin [Mass Hospital Ratio] in Serum or Plasma ID Date Data Source [id number] 09/04/2019 02:38:00 AM [facility] Hospital Name Value Range Interpretation Description Data Sup porting Code Source(s) Document(s ) Albumin 3.5 g/dL [facility] [Mass/volume Hospital ] in Serum or Plasma ID Date Data Source [id number] 09/04/2019 02:38:00 AM [facility] Name Value Range Interpretation Description Data Sup porting Code Source(s) Document(s ) Protein 5.8 g/dL [facility] [Mass/volume Hospital ] in Serum or Plasma ID Date Data Source [id number] 09/04/2019 02:38:00 AM EST [facility] Name Value Range Interpretation Code Description Data Supporting Source(s) Document(s ) Immature 17.9 % [facility] reticulocytes Hospital /Reticulocyte s.total in Blood ID Date Data Source [id number] 09/04/2019 02:38:00 AM EST [facility] Name Value Range Interpretation Description Data Sup porting Code Source(s) Document(s ) Reticulocytes 0.07 [facility] [#/volume] in 10*6/uL Hospital Blood by Automated count ID Date Data Source [id number] 09/04/2019 02:38:00 AM EST [facility] Name Value Range Interpretation Description Data Sup porting Code Source(s) Document(s ) Reticulocytes/10 3.58 % [facility] 0 erythrocytes Hospital in Blood by Automated count ID Date Data Source [id number] 09/04/2019 02:38:00 AM EST [facility] Name Value Range Interpretation Code Description Data Supporting Source(s) Document(s ) NUCLEATED RBCS 0.0 % [facility] (AUTO Hospital DIFF%)DIS ID Date Data Source [id number] 09/04/2019 02:38:00 AM EST [facility] Name Value Range Interpretation Code Description Data Sharon rce(s) Supporting Document(s ) Cells 100 [facility] Counted [facility] Total [#] in Blood ID Date Data Source [id number] 09/04/2019 02:38:00 AM EST [facility] Name Value Range Interpretation Code Description Data Supporting Source(s) Document(s ) PLATELET NORMAL [facility] COMMENT Hospital ID Date Data Source [id number] 09/04/2019 02:38:00 AM EST [facility] Name Value Range Interpretation Code Description Data Sharon rce(s) Supporting Document(s ) ELLIPTOCYTES [facility] ID Date Data Source [id number] 09/04/2019 02:38:00 AM [facility] Name Value Range Interpretation Code Description Data Sharon rce(s) Supporting Document(s ) TEARDROP OCC [facility] CELLS Hospital ID Date Data Source [id number] 09/04/2019 02:38:00 AM [facility] Hospital Name Value Range Interpretation Code Description Data Sharon rce(s) Supporting Document(s ) OVALOCYTES [facility] ID Date Data Source [id number] 09/04/2019 02:38:00 AM [facility] Name Value Range Interpretation Code Description Data Sharon rce(s) Supporting Document(s ) MACROCYTOSIS [facility] ID Date Data Source [id number] 09/04/2019 02:38:00 AM [facility] Value Range Interpretation Code Description Data Sharon rce(s) Supporting Document(s ) MICROCYTOSIS [facility] ID Date Data Source [id number] 09/04/2019 02:38:00 AM [facility] Name Value Range Interpretation Description Data Sup porting Code Source(s) Document(s ) POIKILOCYTOSIS [facility] ID Date Data Source [id number] 09/04/2019 02:38:00 AM [facility] Name Value Range Interpretation Code Description Data Sharon rce(s) Supporting Document(s ) ANISOCYTOSIS [facility] ID Date Data Source [id number] 09/04/2019 02:38:00 AM [facility] Name Value Range Interpretation Description Data Sup porting Code Source(s) Document(s ) Basophils 0.05 [facility] [#/volume] in 10*3/uL Hospital Blood by Manual count ID Date Data Source [id number] 09/04/2019 02:38:00 AM EST [facility] Name Value Range Interpretation Description Data Sup porting Code Source(s) Document(s ) Eosinophils 0.29 [facility] [#/volume] in 10*3/uL Hospital Blood by Manual count ID Date Data Source [id number] 09/04/2019 02:38:00 AM EST [facility] Name Value Range Interpretation Description Data Sup porting Code Source(s) Document(s ) Monocytes 0.34 [facility] [#/volume] in 10*3/uL Hospital Blood by Manual count ID Date Data Source [id number] 09/04/2019 02:38:00 AM EST [facility] Value Range Interpretation Description Data Sup porting Code Source(s) Document(s ) Lymphocytes 0.93 [facility] [#/volume] in 10*3/uL Hospital Blood by Manual count ID Date Data Source [id number] 09/04/2019 02:38:00 AM EST [facility] Name Value Range Interpretation Description Data Sup porting Code Source(s) Document(s ) Neutrophils 3.28 [facility] [#/volume] in 10*3/uL Hospital Blood by Manual count ID Date Data Source [id number] 09/04/2019 02:38:00 AM EST [facility] Name Value Range Interpretation Description Data Sup porting Code Source(s) Document(s ) Myelocytes/100 0 % [facility] leukocytes in Hospital Blood by Manual count ID Date Data Source [id number] 09/04/2019 02:38:00 AM EST [facility] Name Value Range Interpretation Description Data Sup porting Code Source(s) Document(s ) Basophils/100 1 % [facility] leukocytes in [facility] Blood by Manual count ID Date Data Source [id number] 09/04/2019 02:38:00 AM EST [facility] Name Value Range Interpretation Description Data Sup porting Code Source(s) Document(s ) Eosinophils/100 6 % [facility] leukocytes in [facility] Blood by Manual count ID Date Data Source [id number] 09/04/2019 02:38:00 AM [facility] Name Value Range Interpretation Description Data Sup porting Code Source(s) Document(s ) Monocytes/100 7 % [facility] leukocytes in [facility] Blood by Manual count ID Date Data Source [id number] 09/04/2019 02:38:00 AM [facility] Name Value Range Interpretation Description Data Sup porting Code Source(s) Document(s ) Lymphocytes/100 19 % [facility] leukocytes in Hospital Blood by Manual count ID Date Data Source [id number] 09/04/2019 02:38:00 AM [facility] Name Value Range Interpretation Description Data Sup porting Code Source(s) Document(s ) Band form 0 % [facility] neutrophils/100 [facility] leukocytes in Blood ID Date Data Source [id number] 09/04/2019 02:38:00 AM [facility] Name Value Range Interpretation Description Data Sup porting Code Source(s) Document(s ) Neutrophils/100 67 % [facility] leukocytes in Hospital Blood by Manual count ID Date Data Source [id number] 08/24/2019 04:46:00 PM [facility] Name Value Range Interpretation Description Data Sup porting Code Source(s) Document(s ) Hepatitis B NON-REACT [facility] virus [facility] [Presence] in Serum ID Date Data Source [id number] 08/24/2019 04:46:00 PM [facility] Name Value Range Interpretation Description Data Sup porting Code Source(s) Document(s ) Hepatitis B NON-REACT [facility] virus [facility] [Presence] in Serum ID Date Data Source [id number] 08/24/2019 04:46:00 PM EST [facility] Name Value Range Interpretation Description Data Sup porting Code Source(s) Document(s ) Hepatitis B NON-REACT [facility] virus [facility] [Presence] in Serum ID Date Data Source [id number] 08/24/2019 04:46:00 PM EST [facility] Name Value Range Interpretation Description Data Sup porting Code Source(s) Document(s ) Hepatitis B NON-REACT [facility] virus core Ab [facility] [Presence] in Serum ID Date Data Source [id number] 08/24/2019 04:46:00 PM EST [facility] Name Value Range Interpretation Description Data Sup porting Code Source(s) Document(s ) Hepatitis B NON-REACT [facility] virus [facility] [Presence] in Serum ID Date Data Source [id number] 08/24/2019 04:46:00 PM EST [facility] Name Value Range Interpretation Description Data Sup porting Code Source(s) Document(s ) Hepatitis B NON-REACT [facility] virus surface [facility] [Presence] in Serum ID Date Data Source [id number] 08/24/2019 04:46:00 PM EST [facility] Name Value Range Interpretation Description Data Sup porting Code Source(s) Document(s ) Hepatitis B NON-REACT [facility] virus core Ab [facility] [Presence] in Serum ID Date Data Source [id number] 08/24/2019 04:46:00 PM EST [facility] Name Value Range Interpretation Description Data Sup porting Code Source(s) Document(s ) Hepatitis B NON-REACT [facility] virus surface [facility] [Presence] in Serum ID Date Data Source [id number] 08/24/2019 04:46:00 PM EST [facility] Name Value Range Interpretation Description Data Sup porting Code Source(s) Document(s ) Hepatitis B NON-REACT [facility] virus surface [facility] Ag [Presence] in Serum ID Date Data Source [id number] 08/24/2019 04:46:00 PM EST [facility] Name Value Range Interpretation Description Data Sup porting Code Source(s) Document(s ) Calcium 7.9 mg/dL [facility] [Mass/volume Hospital ] in Serum or Plasma ID Date Data Source [id number] 08/24/2019 04:46:00 PM EST [facility] Name Value Range Interpretation Code Description Data Sharon rce(s) Supporting Document(s ) Urea 5.2 [facility] nitrogen/Cre [facility] atinine [Mass Ratio] in Serum or Plasma ID Date Data Source [id number] 08/24/2019 04:46:00 PM EST [facility] Name Value Range Interpretation Description Data Sup porting Code Source(s) Document(s ) Creatinine 2.7 mg/dL [facility] [Mass/volume] Hospital in Serum or Plasma ID Date Data Source [id number] 08/24/2019 04:46:00 PM EST [facility] Name Value Range Interpretation Description Data Sup porting Code Source(s) Document(s ) Urea 14 mg/dL [facility] nitrogen [facility] [Mass/volume ] in Serum or Plasma ID Date Data Source [id number] 08/24/2019 04:46:00 PM EST [facility] Name Value Range Interpretation Code Description Data Sharon rce(s) Supporting Document(s ) Anion gap in 14 [facility] Serum or Hospital Plasma ID Date Data Source [id number] 08/24/2019 04:46:00 PM EST [facility] Name Value Range Interpretation Description Data Sup porting Code Source(s) Document(s ) Carbon 30 mmol/L [facility] dioxide, Hospital total [Moles/volu me] in Serum or Plasma ID Date Data Source [id number] 08/24/2019 04:46:00 PM EST [facility] Name Value Range Interpretation Description Data Sup porting Code Source(s) Document(s ) Chloride 101 [facility] [Moles/volum mmol/L Hospital e] in Serum or Plasma ID Date Data Source [id number] 08/24/2019 04:46:00 PM EST [facility] Name Value Range Interpretation Description Data Sup porting Code Source(s) Document(s ) Potassium 3.6 [facility] [Moles/volume mmol/L Hospital ] in Serum or Plasma ID Date Data Source [id number] 08/24/2019 04:46:00 PM EST [facility] Name Value Range Interpretation Description Data Sup porting Code Source(s) Document(s ) Sodium 141 mmol/L [facility] [Moles/volu Hospital me] in Serum or Plasma ID Date Data Source [id number] 08/24/2019 04:46:00 PM EST [facility] Name Value Range Interpretation Description Data Sup porting Code Source(s) Document(s ) Glucose 101 mg/dL [facility] [Mass/volume Hospital ] in Serum or Plasma ID Date Data Source [id number] 08/24/2019 04:46:00 PM EST [facility] Name Value Range Interpretation Description Data Sup porting Code Source(s) Document(s ) Platelet mean 11.[address] [facility] [Entitic volume] in Blood by Automated count ID Date Data Source [id number] 08/24/2019 04:46:00 PM [facility] Name Value Range Interpretation Description Data Sup porting Code Source(s) Document(s ) Platelets 68 [facility] [#/volume] in 10*3/uL Hospital Blood by Automated count ID Date Data Source [id number] 08/24/2019 04:46:00 PM [facility] Value Range Interpretation Description Data Sup porting Code Source(s) Document(s ) Erythrocyte 108.2 fL [facility] mean Hospital corpuscular volume [Entitic volume] by Automated count ID Date Data Source [id number] 08/24/2019 04:46:00 PM [facility] Value Range Interpretation Description Data Sup porting Code Source(s) Document(s ) Hematocrit 32.9 % [facility] [Volume Hospital Fraction] of Blood by Automated count ID Date Data Source [id number] 08/24/2019 04:46:00 PM [facility] Value Range Interpretation Description Data Sup porting Code Source(s) Document(s ) Hemoglobin 10.2 g/dL [facility] [Mass/volume] Hospital in Blood ID Date Data Source [id number] 08/24/2019 04:46:00 PM [facility] Value Range Interpretation Description Data Sup porting Code Source(s) Document(s ) Erythrocytes 3.04 [facility] [#/volume] in 10*6/uL Hospital Blood by Automated count ID Date Data Source [id number] 08/24/2019 04:46:00 PM [facility] Name Value Range Interpretation Description Data Sup porting Code Source(s) Document(s ) Leukocytes 4.8 [facility] [#/volume] in 10*3/uL [facility] Blood by Automated count ID Date Data Source [id number] 08/24/2019 04:46:00 PM [facility] Value Range Interpretation Description Data Sup porting Code Source(s) Document(s ) Erythrocyte 14.6 % [facility] Hospital width [Ratio] by Automated count ID Date Data Source [id number] 08/24/2019 04:46:00 PM [facility] Name Value Range Interpretation Description Data Sup porting Code Source(s) Document(s ) Erythrocyte mean 31.0 [facility] corpuscular g/dL Hospital hemoglobin concentration [Mass/volume] by Automated count ID Date Data Source [id number] 08/24/2019 04:46:00 PM [facility] Name Value Range Interpretation Description Data Sup porting Code Source(s) Document(s ) Erythrocyte 33.6 pg [facility] corpuscular hemoglobin [Entitic mass] by Automated count ID Date Data Source [id number] 07/22/2019 08:14:00 AM [facility] Name Value Range Interpretation Description Data Sup porting Code Source(s) Document(s ) Protein 6.9 g/dL [facility] [Mass/volume Hospital ] in Serum or Plasma ID Date Data Source [id number] 07/22/2019 08:14:00 AM [facility] Name Value Range Interpretation Description Data Sup porting Code Source(s) Document(s ) Calcium 8.3 mg/dL [facility] [Mass/volume Hospital ] in Serum or Plasma ID Date Data Source [id number] 07/22/2019 08:14:00 AM [facility] Name Value Range Interpretation Code Description Data Sharon rce(s) Supporting Document(s ) Urea 7.9 [facility] nitrogen/Cre Hospital atinine [Mass Ratio] in Serum or Plasma ID Date Data Source [id number] 07/22/2019 08:14:00 AM [facility] NOTIFICATION AND READ BACK OF CRITICAL R ESULTS TO TAJ MELENDREZ R.N/Velvet AT 0929 ON 07/22/19 BY Larry Burton.REPORTED CR ITICAL VALUES SHOULD BE INTERPRETED WITHIN CLINICAL CONTEXT. Name Value Range Interpretation Description Data Sup porting Code Source(s) Document(s ) Creatinine 6.8 mg/dL [facility] [Mass/volume] Hospital in Serum or Plasma ID Date Data Source [id number] 07/22/2019 08:14:00 AM [facility] Name Value Range Interpretation Description Data Sup porting Code Source(s) Document(s ) Urea 54 mg/dL [facility] nitrogen [facility] [Mass/volume ] in Serum or Plasma ID Date Data Source [id number] 07/22/2019 08:14:00 AM [facility] Name Value Range Interpretation Code Description Data Sharon rce(s) Supporting Document(s ) Anion gap in 16 [facility] Serum or [facility] Plasma ID Date Data Source [id number] 07/22/2019 08:14:00 AM [facility] Name Value Range Interpretation Description Data Sup porting Code Source(s) Document(s ) Carbon 30 mmol/L [facility] dioxide, [facility] total [Moles/volu me] in Serum or Plasma ID Date Data Source [id number] 07/22/2019 08:14:00 AM [facility] Name Value Range Interpretation Description Data Sup porting Code Source(s) Document(s ) Chloride 95 mmol/L [facility] [Moles/volum Hospital e] in Serum or Plasma ID Date Data Source [id number] 07/22/2019 08:14:00 AM [facility] Name Value Range Interpretation Description Data Sup porting Code Source(s) Document(s ) Potassium 3.6 [facility] [Moles/volume mmol/L Hospital ] in Serum or Plasma ID Date Data Source [id number] 07/22/2019 08:14:00 AM EST [facility] Name Value Range Interpretation Description Data Sup porting Code Source(s) Document(s ) Sodium 137 mmol/L [facility] [Moles/volu Hospital dc] in Serum or Plasma ID Date Data Source [id number] 07/22/2019 08:14:00 AM [facility] Name Value Range Interpretation Description Data Sup porting Code Source(s) Document(s ) Glucose 96 mg/dL [facility] [Mass/volume Hospital ] in Serum or Plasma ID Date Data Source [id number] 07/22/2019 08:14:00 AM [facility] Name Value Range Interpretation Description Data Sup porting Code Source(s) Document(s ) Manual MANUAL [facility] differential [facility] performed [Presence] in Blood ID Date Data Source [id number] 07/22/2019 08:14:00 AM [facility] Name Value Range Interpretation Code Description Data Sharon rce(s) Supporting Document(s ) Cells 100 [facility] Hospital Total [#] in Blood ID Date Data Source [id number] 07/22/2019 08:14:00 AM [facility] Name Value Range Interpretation Code Description Data Supporting Source(s) Document(s ) PLATELET NORMAL [facility] Hospital ID Date Data Source [id number] 07/22/2019 08:14:00 AM [facility] SLIGHTLY DECREASED. Name Value Range Interpretation Code Description Data Supporting Source(s) Document(s ) Platelets [facility] [#/volume] in Hospital Blood by Estimate ID Date Data Source [id number] 07/22/2019 08:14:00 AM [facility] Name Value Range Interpretation Code Description Data Sharon rce(s) Supporting Document(s ) HYPOCHROMIA OCC [facility] ID Date Data Source [id number] 07/22/2019 08:14:00 AM [facility] Hospital Name Value Range Interpretation Code Description Data Sharon rce(s) Supporting Document(s ) MACROCYTOSIS 1+ [facility] ID Date Data Source [id number] 07/22/2019 08:14:00 AM [facility] Name Value Range Interpretation Description Data Sup porting Code Source(s) Document(s ) Basophils 0.08 [facility] [#/volume] in 10*3/uL Hospital Blood by Manual count ID Date Data Source [id number] 07/22/2019 08:14:00 AM [facility] Name Value Range Interpretation Description Data Sup porting Code Source(s) Document(s ) Eosinophils 0.08 [facility] [#/volume] in 10*3/uL Hospital Blood by Manual count ID Date Data Source [id number] 07/22/2019 08:14:00 AM [facility] Hospital Name Value Range Interpretation Description Data Sup porting Code Source(s) Document(s ) Monocytes 0.83 [facility] [#/volume] in 10*3/uL Hospital Blood by Manual count ID Date Data Source [id number] 07/22/2019 08:14:00 AM [facility] Name Value Range Interpretation Description Data Sup porting Code Source(s) Document(s ) Lymphocytes 1.20 [facility] [#/volume] in 10*3/uL Hospital Blood by Manual count ID Date Data Source [id number] 07/22/2019 08:14:00 AM [facility] Name Value Range Interpretation Description Data Sup porting Code Source(s) Document(s ) Neutrophils 5.33 [facility] [#/volume] in 10*3/uL Hospital Blood by Manual count ID Date Data Source [id number] 07/22/2019 08:14:00 AM [facility] Name Value Range Interpretation Description Data Sup porting Code Source(s) Document(s ) Basophils/100 1 % [facility] leukocytes in Hospital Blood by Manual count ID Date Data Source [id number] 07/22/2019 08:14:00 AM [facility] Name Value Range Interpretation Description Data Sup porting Code Source(s) Document(s ) Eosinophils/100 1 % [facility] leukocytes in Hospital Blood by Manual count ID Date Data Source [id number] 07/22/2019 08:14:00 AM [facility] Value Range Interpretation Description Data Sup porting Code Source(s) Document(s ) Monocytes/100 11 % [facility] leukocytes in Hospital Blood by Manual count ID Date Data Source [id number] 07/22/2019 08:14:00 AM [facility] Value Range Interpretation Description Data Sup porting Code Source(s) Document(s ) Lymphocytes/100 16 % [facility] leukocytes in Hospital Blood by Manual count ID Date Data Source [id number] 07/22/2019 08:14:00 AM [facility] Value Range Interpretation Description Data Sup porting Code Source(s) Document(s ) Neutrophils/100 71 % [facility] leukocytes in Hospital Blood by Manual count ID Date Data Source [id number] 07/22/2019 08:14:00 AM [facility] Value Range Interpretation Description Data Sup porting Code Source(s) Document(s ) Platelet mean 12.5 fL [facility] volume [facility] [Entitic volume] in Blood by Automated count ID Date Data Source [id number] 07/22/2019 08:14:00 AM [facility] Value Range Interpretation Description Data Sup porting Code Source(s) Document(s ) Platelets 95 [facility] [#/volume] in 10*3/uL Hospital Blood by Automated count ID Date Data Source [id number] 07/22/2019 08:14:00 AM [facility] Name Value Range Interpretation Description Data Sup porting Code Source(s) Document(s ) Erythrocyte 13.4 % [facility] Hospital width [Ratio] by Automated count ID Date Data Source [id number] 07/22/2019 08:14:00 AM [facility] Value Range Interpretation Description Data Sup porting Code Source(s) Document(s ) Erythrocyte mean 30.6 [facility] corpuscular g/dL Hospital hemoglobin concentration [Mass/volume] by Automated count ID Date Data Source [id number] 07/22/2019 08:14:00 AM [facility] Value Range Interpretation Description Data Sup porting Code Source(s) Document(s ) Erythrocyte 32.8 pg [facility] corpuscular hemoglobin [Entitic mass] by Automated count ID Date Data Source [id number] 07/22/2019 08:14:00 AM [facility] Value Range Interpretation Description Data Sup porting Code Source(s) Document(s ) Erythrocyte 107.3 fL [facility] corpuscular volume [Entitic volume] by Automated count ID Date Data Source [id number] 07/22/2019 08:14:00 AM [facility] Value Range Interpretation Description Data Sup porting Code Source(s) Document(s ) Hematocrit 35.3 % [facility] [Volume Hospital Fraction] of Blood by Automated count ID Date Data Source [id number] 07/22/2019 08:14:00 AM [facility] Value Range Interpretation Description Data Sup porting Code Source(s) Document(s ) Hemoglobin 10.8 g/dL [facility] [Mass/volume] Hospital in Blood ID Date Data Source [id number] 07/22/2019 08:14:00 AM [facility] Name Value Range Interpretation Description Data Sup porting Code Source(s) Document(s ) Erythrocytes 3.29 [facility] [#/volume] in 10*6/uL Hospital Blood by Automated count ID Date Data Source [id number] 07/22/2019 08:14:00 AM [facility] Name Value Range Interpretation Description Data Sup porting Code Source(s) Document(s ) Leukocytes 7.5 [facility] [#/volume] in 10*3/uL Hospital Blood by Automated count ID Date Data Source [id number] 07/22/2019 08:14:00 AM [facility] Name Value Range Interpretation Description Data Sup porting Code Source(s) Document(s ) Aspartate 12 U/L [facility] aminotransferase [facility] [Enzymatic Hospital activity/volume] in Serum or Plasma ID Date Data Source [id number] 07/22/2019 08:14:00 AM [facility] Name Value Range Interpretation Description Data Sup porting Code Source(s) Document(s ) Alanine < 8 U/L [facility] aminotransferase [facility] [Enzymatic Hospital activity/volume] in Serum or Plasma ID Date Data Source [id number] 07/22/2019 08:14:00 AM [facility] Hospital Name Value Range Interpretation Description Data Sup porting Code Source(s) Document(s ) Alkaline 83 U/L [facility] phosphatase [facility] [Enzymatic activity/volume ] in Serum or Plasma ID Date Data Source [id number] 07/22/2019 08:14:00 AM [facility] Name Value Range Interpretation Description Data Sup porting Code Source(s) Document(s ) Bilirubin.t 0.2 mg/dL [facility] [Mass/volum e] in Serum or Plasma ID Date Data Source [id number] 07/22/2019 08:14:00 AM [facility] Name Value Range Interpretation Code Description Data Sharon rce(s) Supporting Document(s ) Albumin/Glob 1.0 [facility] ulin [Mass Hospital Ratio] in Serum or Plasma ID Date Data Source [id number] 07/22/2019 08:14:00 AM [facility] Name Value Range Interpretation Description Data Sup porting Code Source(s) Document(s ) Albumin 3.4 g/dL [facility] [Mass/volume Hospital ] in Serum or Plasma ID Date Data Source [id number] 07/22/2019 08:14:00 AM [facility] Name Value Range Interpretation Description Data Sup porting Code Source(s) Document(s ) Protein 6.9 g/dL [facility] [Mass/volume Hospital ] in Serum or Plasma ID Date Data Source [id number] 07/22/2019 08:14:00 AM [facility] [facility] Name Value Range Interpretation Description Data Sup porting Code Source(s) Document(s ) Calcium 8.3 mg/dL [facility] ] in Serum or Plasma ID Date Data Source [id number] 07/22/2019 08:14:00 AM [facility] Name Value Range Interpretation Code Description Data Sharon rce(s) Supporting Document(s ) Urea 7.9 [facility] nitrogen/Cre [facility] atinine [Mass Ratio] in Serum or Plasma ID Date Data Source [id number] 07/22/2019 08:14:00 AM [facility] NOTIFICATION AND READ BACK OF CRITICAL R ESULTS TO TAJ MELENDREZ R.N/Velvet AT 0929 ON 07/22/19 BY Larry Burton.REPORTED CR ITICAL VALUES SHOULD BE INTERPRETED WITHIN CLINICAL CONTEXT. Name Value Range Interpretation Description Data Sup porting Code Source(s) Document(s ) Creatinine 6.8 mg/dL [facility] in Serum or Plasma ID Date Data Source [id number] 07/22/2019 08:14:00 AM EST [facility] Name Value Range Interpretation Description Data Sup porting Code Source(s) Document(s ) Urea 54 mg/dL [facility] nitrogen [facility] [Mass/volume ] in Serum or Plasma ID Date Data Source [id number] 07/22/2019 08:14:00 AM [facility] Name Value Range Interpretation Code Description Data Sharon rce(s) Supporting Document(s ) Anion gap in 16 [facility] Serum or [facility] Plasma ID Date Data Source [id number] 07/22/2019 08:14:00 AM [facility] Name Value Range Interpretation Description Data Sup porting Code Source(s) Document(s ) Carbon 30 mmol/L [facility] dioxide, Hospital total [Moles/volu me] in Serum or Plasma ID Date Data Source [id number] 07/22/2019 08:14:00 AM [facility] Name Value Range Interpretation Description Data Sup porting Code Source(s) Document(s ) Chloride 95 mmol/L [facility] [Moles[facility]volum [facility] e] in Serum or Plasma ID Date Data Source [id number] 07/22/2019 08:14:00 AM EST [facility] Name Value Range Interpretation Description Data Sup porting Code Source(s) Document(s ) Potassium 3.6 [facility] [Moles/volume mmol/L Hospital ] in Serum or Plasma ID Date Data Source [id number] 07/22/2019 08:14:00 AM EST [facility] Name Value Range Interpretation Description Data Sup porting Code Source(s) Document(s ) Sodium 137 mmol/L [facility]u [facility] me] in Serum or Plasma ID Date Data Source [id number] 07/22/2019 08:14:00 AM [facility] Name Value Range Interpretation Description Data Sup porting Code Source(s) Document(s ) Glucose 96 mg/dL [facility] ] in Serum or Plasma ID Date Data Source [id number] 07/22/2019 08:14:00 AM [facility] Name Value Range Interpretation Description Data Sup porting Code Source(s) Document(s ) Manual MANUAL [facility] differential [facility] performed [Presence] in Blood ID Date Data Source [id number] 07/22/2019 08:14:00 AM [facility] Name Value Range Interpretation Code Description Data Sharon rce(s) Supporting Document(s ) Cells 100 [facility] Hospital Total [#] in Blood ID Date Data Source [id number] 07/22/2019 08:14:00 AM [facility] Name Value Range Interpretation Code Description Data Supporting Source(s) Document(s ) PLATELET NORMAL [facility] Hospital ID Date Data Source [id number] 07/22/2019 08:14:00 AM [facility] SLIGHTLY DECREASED. Name Value Range Interpretation Code Description Data Supporting Source(s) Document(s ) Platelets [facility] [#/volume] in Hospital Blood by Estimate ID Date Data Source [id number] 07/22/2019 08:14:00 AM [facility] Name Value Range Interpretation Code Description Data Sharon rce(s) Supporting Document(s ) HYPOCHROMIA OCC [facility] ID Date Data Source [id number] 07/22/2019 08:14:00 AM [facility] Name Value Range Interpretation Code Description Data Sharon rce(s) Supporting Document(s ) MACROCYTOSIS 1+ [facility] ID Date Data Source [id number] 07/22/2019 08:14:00 AM EST [facility] Name Value Range Interpretation Description Data Sup porting Code Source(s) Document(s ) Basophils 0.08 [facility] [#/volume] in 10*3/uL Hospital Blood by Manual count ID Date Data Source [id number] 07/22/2019 08:14:00 AM EST [facility] Name Value Range Interpretation Description Data Sup porting Code Source(s) Document(s ) Eosinophils 0.08 [facility] [#/volume] in 10*3/uL Hospital Blood by Manual count ID Date Data Source [id number] 07/22/2019 08:14:00 AM EST [facility] Name Value Range Interpretation Description Data Sup porting Code Source(s) Document(s ) Monocytes 0.83 [facility] [#/volume] in 10*3/uL Hospital Blood by Manual count ID Date Data Source [id number] 07/22/2019 08:14:00 AM [facility] Name Value Range Interpretation Description Data Sup porting Code Source(s) Document(s ) Lymphocytes 1.20 [facility] [#/volume] in 10*3/uL Hospital Blood by Manual count ID Date Data Source [id number] 07/22/2019 08:14:00 AM EST [facility] Name Value Range Interpretation Description Data Sup porting Code Source(s) Document(s ) Neutrophils 5.33 [facility] [#/volume] in 10*3/uL Hospital Blood by Manual count ID Date Data Source [id number] 07/22/2019 08:14:00 AM EST [facility] Name Value Range Interpretation Description Data Sup porting Code Source(s) Document(s ) Basophils/100 1 % [facility] leukocytes in Hospital Blood by Manual count ID Date Data Source [id number] 07/22/2019 08:14:00 AM EST [facility] Name Value Range Interpretation Description Data Sup porting Code Source(s) Document(s ) Eosinophils/100 1 % [facility] leukocytes in Hospital Blood by Manual count ID Date Data Source [id number] 07/22/2019 08:14:00 AM EST [facility] Name Value Range Interpretation Description Data Sup porting Code Source(s) Document(s ) Monocytes/100 11 % [facility] leukocytes in Hospital Blood by Manual count ID Date Data Source [id number] 07/22/2019 08:14:00 AM EST [facility] Name Value Range Interpretation Description Data Sup porting Code Source(s) Document(s ) Lymphocytes/100 16 % [facility] leukocytes in Hospital Blood by Manual count ID Date Data Source [id number] 07/22/2019 08:14:00 AM EST [facility] Value Range Interpretation Description Data Sup porting Code Source(s) Document(s ) Neutrophils/100 71 % [facility] leukocytes in Hospital Blood by Manual count ID Date Data Source [id number] 07/22/2019 08:14:00 AM [facility] Name Value Range Interpretation Description Data Sup porting Code Source(s) Document(s ) Platelet mean 12.5 fL [facility] volume [facility] [Entitic volume] in Blood by Automated count ID Date Data Source [id number] 07/22/2019 08:14:00 AM EST [facility] Value Range Interpretation Description Data Sup porting Code Source(s) Document(s ) Platelets 95 [facility] [#/volume] in 10*3/uL Hospital Blood by Automated count ID Date Data Source [id number] 07/22/2019 08:14:00 AM [facility] Name Value Range Interpretation Description Data Sup porting Code Source(s) Document(s ) Erythrocyte 13.4 % [facility] distribution [facility] width [Ratio] by Automated count ID Date Data Source [id number] 07/22/2019 08:14:00 AM [facility] Value Range Interpretation Description Data Sup porting Code Source(s) Document(s ) Erythrocyte mean 30.6 [facility] corpuscular g/dL Hospital hemoglobin concentration [Mass/volume] by Automated count ID Date Data Source [id number] 07/22/2019 08:14:00 AM [facility] Value Range Interpretation Description Data Sup porting Code Source(s) Document(s ) Erythrocyte 32.8 pg [facility] corpuscular hemoglobin [Entitic mass] by Automated count ID Date Data Source [id number] 07/22/2019 08:14:00 AM [facility] Value Range Interpretation Description Data Sup porting Code Source(s) Document(s ) Erythrocyte 107.3 fL [facility] corpuscular volume [Entitic volume] by Automated count ID Date Data Source [id number] 07/22/2019 08:14:00 AM [facility] Value Range Interpretation Description Data Sup porting Code Source(s) Document(s ) Hematocrit 35.3 % [facility] [Volume Hospital Fraction] of Blood by Automated count ID Date Data Source [id number] 07/22/2019 08:14:00 AM [facility] Value Range Interpretation Description Data Sup porting Code Source(s) Document(s ) Hemoglobin 10.8 g/dL [facility] in Blood ID Date Data Source [id number] 07/22/2019 08:14:00 AM [facility] Value Range Interpretation Description Data Sup porting Code Source(s) Document(s ) Erythrocytes 3.29 [facility] [#/volume] in 10*6/uL Hospital Blood by Automated count ID Date Data Source [id number] 07/22/2019 08:14:00 AM [facility] Hospital Name Value Range Interpretation Description Data Sup porting Code Source(s) Document(s ) Leukocytes 7.5 [facility] [#/volume] in 10*3/uL Hospital Blood by Automated count ID Date Data Source [id number] 07/22/2019 08:14:00 AM [facility] Hospital Name Value Range Interpretation Description Data Sup porting Code Source(s) Document(s ) Phosphate 6.3 mg/dL [facility] in Serum or Plasma ID Date Data Source [id number] 07/22/2019 08:14:00 AM [facility] Hospital Name Value Range Interpretation Description Data Sup porting Code Source(s) Document(s ) Aspartate 12 U/L [facility] aminotransferase [facility] [Enzymatic Hospital activity/volume] in Serum or Plasma ID Date Data Source [id number] 07/22/2019 08:14:00 AM [facility] Hospital Name Value Range Interpretation Description Data Sup porting Code Source(s) Document(s ) Alanine < 8 U/L [facility] aminotransferase [facility] [Enzymatic Hospital activity/volume] in Serum or Plasma ID Date Data Source [id number] 07/22/2019 08:14:00 AM EST [facility] Name Value Range Interpretation Description Data Sup porting Code Source(s) Document(s ) Alkaline 83 U/L [facility] phosphatase [facility] [Enzymatic activity/volume ] in Serum or Plasma ID Date Data Source [id number] 07/22/2019 08:14:00 AM EST [facility] Name Value Range Interpretation Description Data Sup porting Code Source(s) Document(s ) Bilirubin.t 0.2 mg/dL [facility] Hospital [Mass/volum e] in Serum or Plasma ID Date Data Source [id number] 07/22/2019 08:14:00 AM [facility] Name Value Range Interpretation Code Description Data Sharon rce(s) Supporting Document(s ) Albumin/Glob 1.0 [facility] ulin [Mass Hospital Ratio] in Serum or Plasma ID Date Data Source [id number] 07/22/2019 08:14:00 AM [facility] Name Value Range Interpretation Description Data Sup porting Code Source(s) Document(s ) Albumin 3.4 g/dL [facility] ] in Serum or Plasma ID Date Data Source [id number] 07/21/2019 06:45:00 AM [facility] NEUT VACUOLES PRESENT Name Value Range Interpretation Code Description Data Supporting Source(s) Document(s ) WBC COMMENT PRESENT [facility] ID Date Data Source [id number] 07/21/2019 06:45:00 AM [facility] Name Value Range Interpretation Code Description Data Sharon rce(s) Supporting Document(s ) ANISOCYTOSIS [facility] ID Date Data Source [id number] 07/21/2019 06:45:00 AM [facility] Value Range Interpretation Description Data Sup porting Code Source(s) Document(s ) Myelocytes/100 1 % [facility] leukocytes in Hospital Blood by Manual count ID Date Data Source [id number] 07/21/2019 06:45:00 AM [facility] NEUT VACUOLES PRESENT Name Value Range Interpretation Code Description Data Supporting Source(s) Document(s ) WBC COMMENT PRESENT [facility] ID Date Data Source [id number] 07/21/2019 06:45:00 AM [facility] Value Range Interpretation Code Description Data Sharon rce(s) Supporting Document(s ) ANISOCYTOSIS [facility] ID Date Data Source [id number] 07/21/2019 06:45:00 AM [facility] Value Range Interpretation Description Data Sup porting Code Source(s) Document(s ) Myelocytes/100 1 % [facility] leukocytes in Hospital Blood by Manual count ID Date Data Source [id number] 07/20/2019 07:19:00 AM [facility] Value Range Interpretation Description Data Sup porting Code Source(s) Document(s ) Fibrin strands PRESENT [facility] [Presence] in Hospital Blood by Light microscopy ID Date Data Source [id number] 07/20/2019 07:19:00 AM [facility] Value Range Interpretation Description Data Sup porting Code Source(s) Document(s ) Fibrin strands PRESENT [facility] [Presence] in Hospital Blood by Light microscopy ID Date Data Source [id number] 07/19/2019 01:20:00 PM [facility] Value Range Interpretation Code Description Data Sharon rce(s) Supporting Document(s ) READ BACK Yes/ [facility] ID Date Data Source [id number] 07/19/2019 01:20:00 PM [facility] Value Range Interpretation Code Description Data Sharon rce(s) Supporting Document(s ) NOTE [facility] ID Date Data Source [id number] 07/19/2019 01:20:00 PM [facility] Value Range Interpretation Code Description Data Supporting Source(s) Document(s ) METHEMOGLOBIN 0.3 % [facility] ID Date Data Source [id number] 07/19/2019 01:20:00 PM [facility] Value Range Interpretation Description Data Sup porting Code Source(s) Document(s ) CARBOXYHEMOGLOBIN 1.1 % [facility] ID Date Data Source [id number] 07/19/2019 01:20:00 PM EST [facility] Name Value Range Interpretation Description Data Sup porting Code Source(s) Document(s ) INSPIRATORY 16 [facility] ID Date Data Source [id number] 07/19/2019 01:20:00 PM EST [facility] Name Value Range Interpretation Description Data Sup porting Code Source(s) Document(s ) EXPIRATORY 5 [facility] ID Date Data Source [id number] 07/19/2019 01:20:00 PM EST [facility] Name Value Range Interpretation Code Description Data Sharon rce(s) Supporting Document(s ) READ BACK Yes/MD [facility] ID Date Data Source [id number] 07/19/2019 01:20:00 PM EST [facility] Name Value Range Interpretation Code Description Data Sharon rce(s) Supporting Document(s ) NOTE [facility] ID Date Data Source [id number] 07/19/2019 01:20:00 PM EST [facility] Name Value Range Interpretation Code Description Data Supporting Source(s) Document(s ) METHEMOGLOBIN 0.3 % [facility] ID Date Data Source [id number] 07/19/2019 01:20:00 PM EST [facility] Name Value Range Interpretation Description Data Sup porting Code Source(s) Document(s ) CARBOXYHEMOGLOBIN 1.1 % [facility] ID Date Data Source [id number] 07/19/2019 01:20:00 PM [facility] Value Range Interpretation Code Description Data Sharon rce(s) Supporting Document(s ) ABG TEMP 97.0 [facility] ID Date Data Source [id number] 07/19/2019 01:20:00 PM [facility] Name Value Range Interpretation Code Description Data Sharon rce(s) Supporting Document(s ) FIO2 30 % [facility] ID Date Data Source [id number] 07/19/2019 01:20:00 PM [facility] Name Value Range Interpretation Code Description Data Sharon rce(s) Supporting Document(s ) ABG BE 1.4 mmol/L [facility] ID Date Data Source [id number] 07/19/2019 01:20:00 PM [facility] Value Range Interpretation Code Description Data Sharon rce(s) Supporting Document(s ) ABG O2SAT 89 % [facility] ID Date Data Source [id number] 07/19/2019 01:20:00 PM [facility] Value Range Interpretation Code Description Data Sharon rce(s) Supporting Document(s ) ABG HCO3 29 mmol/L [facility] ID Date Data Source [id number] 07/19/2019 01:20:00 PM [facility] Value Range Interpretation Code Description Data Sharon rce(s) Supporting Document(s ) ABG PO2 58 mm[Hg] [facility] ID Date Data Source [id number] 07/19/2019 01:20:00 PM [facility] Value Range Interpretation Code Description Data Sharon rce(s) Supporting Document(s ) ABG PCO2 57 mm[Hg] [facility] ID Date Data Source [id number] 07/19/2019 01:20:00 PM [facility] Value Range Interpretation Code Description Data Sharon rce(s) Supporting Document(s ) ABG PH 7.32 [facility] ID Date Data Source [id number] 07/19/2019 01:20:00 PM EST [facility] Name Value Range Interpretation Code Description Data Sharon rce(s) Supporting Document(s ) ABG MODE BiPaP [facility] ID Date Data Source [id number] 07/19/2019 01:20:00 PM EST [facility] Name Value Range Interpretation Code Description Data Supporting Source(s) Document(s ) ABG SITE Right [facility] ID Date Data Source [id number] 07/19/2019 01:20:00 PM EST [facility] Name Value Range Interpretation Code Description Data Supporting Source(s) Document(s ) ABG SOURCE ARTERIAL [facility] ID Date Data Source [id number] 07/19/2019 01:20:00 PM EST [facility] Name Value Range Interpretation Code Description Data Sharon rce(s) Supporting Document(s ) XAVIER TEST POSITIVE [facility] ID Date Data Source [id number] 07/19/2019 01:20:00 PM EST [facility] Name Value Range Interpretation Description Data Sup porting Code Source(s) Document(s ) INSPIRATORY 16 [facility] Hospital ID Date Data Source [id number] 07/19/2019 01:20:00 PM EST [facility] Name Value Range Interpretation Description Data Sup porting Code Source(s) Document(s ) EXPIRATORY 5 [facility] PRESSURE [facility] ID Date Data Source [id number] 07/19/2019 01:20:00 PM EST [facility] Name Value Range Interpretation Code Description Data Sharon rce(s) Supporting Document(s ) ABG TEMP 97.0 [facility] ID Date Data Source [id number] 07/19/2019 01:20:00 PM EST [facility] Name Value Range Interpretation Code Description Data Sharon rce(s) Supporting Document(s ) FIO2 30 % [facility] ID Date Data Source [id number] 07/19/2019 01:20:00 PM [facility] Value Range Interpretation Code Description Data Sharon rce(s) Supporting Document(s ) ABG BE 1.4 mmol/L [facility] ID Date Data Source [id number] 07/19/2019 01:20:00 PM [facility] Value Range Interpretation Code Description Data Sharon rce(s) Supporting Document(s ) ABG O2SAT 89 % [facility] ID Date Data Source [id number] 07/19/2019 01:20:00 PM [facility] Value Range Interpretation Code Description Data Sharon rce(s) Supporting Document(s ) ABG HCO3 29 mmol/L [facility] ID Date Data Source [id number] 07/19/2019 01:20:00 PM [facility] Value Range Interpretation Code Description Data Sharon rce(s) Supporting Document(s ) ABG PO2 58 mm[Hg] [facility] ID Date Data Source [id number] 07/19/2019 01:20:00 PM [facility] Value Range Interpretation Code Description Data Sharon rce(s) Supporting Document(s ) ABG PCO2 57 mm[Hg] [facility] ID Date Data Source [id number] 07/19/2019 01:20:00 PM [facility] Value Range Interpretation Code Description Data Sharon rce(s) Supporting Document(s ) ABG PH 7.32 [facility] ID Date Data Source [id number] 07/19/2019 01:20:00 PM [facility] Name Value Range Interpretation Code Description Data Sharon rce(s) Supporting Document(s ) ABG MODE BiPaP [facility] ID Date Data Source [id number] 07/19/2019 01:20:00 PM [facility] Name Value Range Interpretation Code Description Data Supporting Source(s) Document(s ) ABG SITE Right [facility] ID Date Data Source [id number] 07/19/2019 01:20:00 PM [facility] Name Value Range Interpretation Code Description Data Supporting Source(s) Document(s ) ABG SOURCE ARTERIAL [facility] ID Date Data Source [id number] 07/19/2019 01:20:00 PM [facility] Name Value Range Interpretation Code Description Data Sharon rce(s) Supporting Document(s ) XAVIER TEST POSITIVE [facility] ID Date Data Source [id number] 07/19/2019 11:11:00 AM [facility] [employer]:HEATH REID Name Value Range Interpretation Description Data Sup porting Code Source(s) Document(s ) Glucose 124 mg/dL [facility]Mass/[facility] in Capillary blood by Glucometer ID Date Data Source [id number] 07/19/2019 11:11:00 AM [facility] [employer] Operator:HEATH REID Name Value Range Interpretation Description Data Sup porting Code Source(s) Document(s ) Glucose 124 mg/dL [facility]Mass[facility] in Capillary blood by Glucometer ID Date Data Source [id number] 07/19/2019 07:05:00 AM [facility] Name Value Range Interpretation Description Data Sup porting Code Source(s) Document(s ) Magnesium 2.1 mg/dL [facility]Mass[facility] in Serum or Plasma ID Date Data Source [id number] 07/19/2019 07:05:00 AM [facility] Hospital Name Value Range Interpretation Code Description Data Supporting Source(s) Document(s ) NUCLEATED RBCS 0.0 % [facility] (AUTO Hospital DIFF%)DIS ID Date Data Source [id number] 07/19/2019 07:05:00 AM [facility] Hospital Name Value Range Interpretation Description Data Sup porting Code Source(s) Document(s ) Differential MANUAL [facility] cell count [facility] method - Blood ID Date Data Source [id number] 07/19/2019 07:05:00 AM [facility] Hospital Name Value Range Interpretation Description Data Sup porting Code Source(s) Document(s ) Magnesium 2.1 mg/dL [facility] in Serum or Plasma ID Date Data Source [id number] 07/19/2019 07:05:00 AM [facility] Hospital Name Value Range Interpretation Code Description Data Supporting Source(s) Document(s ) NUCLEATED RBCS 0.0 % [facility] (AUTO Hospital DIFF%)DIS ID Date Data Source [id number] 07/19/2019 07:05:00 AM [facility] Value Range Interpretation Description Data Sup porting Code Source(s) Document(s ) Differential MANUAL [facility] cell count [facility] method - Blood ID Date Data Source [id number] 07/17/2019 03:11:00 PM [facility] Hospital Name Value Range Interpretation Description Data Sup porting Code Source(s) Document(s ) Thyrotropin 0.358 [facility] [Units/volume] u[IU]/mL Hospital in Serum or Plasma by Detection limit <= 0.005 mIU/L ID Date Data Source [id number] 07/17/2019 03:11:00 PM [facility] Hospital Name Value Range Interpretation Description Data Sup porting Code Source(s) Document(s ) Phosphate 9.3 mg/dL [facility] in Serum or Plasma ID Date Data Source [id number] 07/17/2019 03:11:00 PM [facility] THERAPEUTIC RANGES:UNFRACTIONATED HEPARI N THERAPY: 60-90 SECONDSARGATROBAN THERAPY: 49-99 SECONDS Name Value Range Interpretation Description Data Sup porting Code Source(s) Document(s ) aPTT in 30.0 s [facility] Platelet poor [facility] plasma by Coagulation assay ID Date Data Source [id number] 07/17/2019 03:11:00 PM [facility] THERAPEUTIC RANGE FOR STANDARD ORALANTIC OAGULANT THERAPY: 2.0-3.0THERAPEUTIC RANGE FOR HIGH DOSE ORALANTICOAGULANT THERAPY (MECHANICAL HEARTVALVE REPLACEMENT): 2.5-3.5 Name Value Range Interpretation Description Data Sup porting Code Source(s) Document(s ) INR in Platelet 1.0 [facility] poor plasma by Hospital Coagulation assay ID Date Data Source [id number] 07/17/2019 03:11:00 PM [facility] Name Value Range Interpretation Description Data Sup porting Code Source(s) Document(s ) PT panel - 11.0 s [facility] Platelet poor [facility] plasma by Coagulation assay ID Date Data Source [id number] 07/17/2019 03:11:00 PM [facility] Name Value Range Interpretation Description Data Sup porting Code Source(s) Document(s ) Immature 0.03 [facility] granulocytes 10*3/uL Hospital [#/volume] in Blood by Automated count ID Date Data Source [id number] 07/17/2019 03:11:00 PM [facility] Name Value Range Interpretation Description Data Sup porting Code Source(s) Document(s ) Basophils 0.00 [facility] [#/volume] in 10*3/uL Hospital Blood by Automated count ID Date Data Source [id number] 07/17/2019 03:11:00 PM [facility] Name Value Range Interpretation Description Data Sup porting Code Source(s) Document(s ) Eosinophils 0.00 [facility] [#/volume] in 10*3/uL Hospital Blood by Automated count ID Date Data Source [id number] 07/17/2019 03:11:00 PM [facility] Value Range Interpretation Description Data Sup porting Code Source(s) Document(s ) Monocytes 0.29 [facility] [#/volume] in 10*3/uL Hospital Blood by Automated count ID Date Data Source [id number] 07/17/2019 03:11:00 PM [facility] Value Range Interpretation Description Data Sup porting Code Source(s) Document(s ) Lymphocytes 0.32 [facility] [#/volume] in 10*3/uL Hospital Blood by Automated count ID Date Data Source [id number] 07/17/2019 03:11:00 PM [facility] Value Range Interpretation Description Data Sup porting Code Source(s) Document(s ) Neutrophils 6.72 [facility] [#/volume] in 10*3/uL [facility] Blood by Automated count ID Date Data Source [id number] 07/17/2019 03:11:00 PM [facility] Value Range Interpretation Description Data Sup porting Code Source(s) Document(s ) Nucleated 0.0 % [facility] erythrocytes/10 Hospital 0 leukocytes [Ratio] in Blood by Automated count ID Date Data Source [id number] 07/17/2019 03:11:00 PM [facility] Value Range Interpretation Description Data Sup porting Code Source(s) Document(s ) Immature 0.4 % [facility] granulocytes/10 Hospital 0 leukocytes in Blood by Automated count ID Date Data Source [id number] 07/17/2019 03:11:00 PM [facility] Name Value Range Interpretation Description Data Sup porting Code Source(s) Document(s ) Basophils/100 0.0 % [facility] leukocytes in Hospital Blood by Automated count ID Date Data Source [id number] 07/17/2019 03:11:00 PM [facility] Name Value Range Interpretation Description Data Sup porting Code Source(s) Document(s ) Eosinophils/100 0.0 % [facility] leukocytes in Hospital Blood by Automated count ID Date Data Source [id number] 07/17/2019 03:11:00 PM [facility] Name Value Range Interpretation Description Data Sup porting Code Source(s) Document(s ) Monocytes/100 3.9 % [facility] leukocytes in [facility] Blood by Automated count ID Date Data Source [id number] 07/17/2019 03:11:00 PM [facility] Name Value Range Interpretation Description Data Sup porting Code Source(s) Document(s ) Lymphocytes/100 4.3 % [facility] leukocytes in Hospital Blood by Automated count ID Date Data Source [id number] 07/17/2019 03:11:00 PM [facility] Name Value Range Interpretation Description Data Sup porting Code Source(s) Document(s ) Neutrophils/10 91.4 % [facility] 0 leukocytes Hospital in Blood by Automated count ID Date Data Source [id number] 07/17/2019 03:11:00 PM [facility] Name Value Range Interpretation Description Data Sup porting Code Source(s) Document(s ) Thyrotropin 0.358 [facility] [Units/volume] u[IU]/mL Hospital in Serum or Plasma by Detection limit <= 0.005 mIU/L ID Date Data Source [id number] 07/17/2019 03:11:00 PM [facility] THERAPEUTIC RANGES:UNFRACTIONATED HEPARI N THERAPY: 60-90 SECONDSARGATROBAN THERAPY: 49-99 SECONDS Name Value Range Interpretation Description Data Sup porting Code Source(s) Document(s ) aPTT in 30.0 s [facility] Platelet poor [facility] plasma by Coagulation assay ID Date Data Source [id number] 07/17/2019 03:11:00 PM [facility] THERAPEUTIC RANGE FOR STANDARD ORALANTIC OAGULANT THERAPY: 2.0-3.0THERAPEUTIC RANGE FOR HIGH DOSE ORALANTICOAGULANT THERAPY (MECHANICAL HEARTVALVE REPLACEMENT): 2.5-3.5 Name Value Range Interpretation Description Data Sup porting Code Source(s) Document(s ) INR in Platelet 1.0 [facility] poor plasma by [facility] Coagulation assay ID Date Data Source [id number] 07/17/2019 03:11:00 PM [facility] Name Value Range Interpretation Description Data Sup porting Code Source(s) Document(s ) PT panel - 11.0 s [facility] Platelet poor [facility] plasma by Coagulation assay ID Date Data Source [id number] 07/17/2019 03:11:00 PM [facility] Name Value Range Interpretation Description Data Sup porting Code Source(s) Document(s ) Immature 0.03 [facility] granulocytes 10*3/uL Hospital [#/volume] in Blood by Automated count ID Date Data Source [id number] 07/17/2019 03:11:00 PM [facility] Name Value Range Interpretation Description Data Sup porting Code Source(s) Document(s ) Basophils 0.00 [facility] [#/volume] in 10*3/uL Hospital Blood by Automated count ID Date Data Source [id number] 07/17/2019 03:11:00 PM [facility] Name Value Range Interpretation Description Data Sup porting Code Source(s) Document(s ) Eosinophils 0.00 [facility] [#/volume] in 10*3/uL Hospital Blood by Automated count ID Date Data Source [id number] 07/17/2019 03:11:00 PM [facility] Name Value Range Interpretation Description Data Sup porting Code Source(s) Document(s ) Monocytes 0.29 [facility] [#/volume] in 10*3/uL Hospital Blood by Automated count ID Date Data Source [id number] 07/17/2019 03:11:00 PM [facility] Name Value Range Interpretation Description Data Sup porting Code Source(s) Document(s ) Lymphocytes 0.32 [facility] [#/volume] in 10*3/uL Hospital Blood by Automated count ID Date Data Source [id number] 07/17/2019 03:11:00 PM EST [facility] Value Range Interpretation Description Data Sup porting Code Source(s) Document(s ) Neutrophils 6.72 [facility] [#/volume] in 10*3/uL [facility] Blood by Automated count ID Date Data Source [id number] 07/17/2019 03:11:00 PM [facility] Value Range Interpretation Description Data Sup porting Code Source(s) Document(s ) Nucleated 0.0 % [facility] erythrocytes/10 [facility] 0 leukocytes [Ratio] in Blood by Automated count ID Date Data Source [id number] 07/17/2019 03:11:00 PM [facility] Value Range Interpretation Description Data Sup porting Code Source(s) Document(s ) Immature 0.4 % [facility] granulocytes/10 [facility] 0 leukocytes in Blood by Automated count ID Date Data Source [id number] 07/17/2019 03:11:00 PM [facility] Value Range Interpretation Description Data Sup porting Code Source(s) Document(s ) Basophils/100 0.0 % [facility] leukocytes in Hospital Blood by Automated count ID Date Data Source [id number] 07/17/2019 03:11:00 PM EST [facility] Name Value Range Interpretation Description Data Sup porting Code Source(s) Document(s ) Eosinophils/100 0.0 % [facility] leukocytes in Hospital Blood by Automated count ID Date Data Source [id number] 07/17/2019 03:11:00 PM EST [facility] Name Value Range Interpretation Description Data Sup porting Code Source(s) Document(s ) Monocytes/100 3.9 % [facility] leukocytes in Hospital Blood by Automated count ID Date Data Source [id number] 07/17/2019 03:11:00 PM EST [facility] Value Range Interpretation Description Data Sup porting Code Source(s) Document(s ) Lymphocytes/100 4.3 % [facility] leukocytes in Hospital Blood by Automated count ID Date Data Source [id number] 07/17/2019 03:11:00 PM [facility] Name Value Range Interpretation Description Data Sup porting Code Source(s) Document(s ) Neutrophils/10 91.4 % [facility] 0 leukocytes Hospital in Blood by Automated count ID Date Data Source [id number] 07/16/2019 03:33:00 AM EST [facility] Value Range Interpretation Code Description Data Supporting Source(s) Document(s ) HEP B SURF 8.74 [facility] AB QUANT m[IU]/mL Hospital ID Date Data Source [id number] 07/16/2019 03:33:00 AM [facility] Value Range Interpretation Description Data Sup porting Code Source(s) Document(s ) Hepatitis B NON-REACT [facility] virus surface BELLA [facility] Ag [Presence] in Serum ID Date Data Source [id number] 07/16/2019 03:33:00 AM EST [facility] Name Value Range Interpretation Code Description Data Supporting Source(s) Document(s ) HEP B SURF 8.74 [facility] AB QUANT m[IU]/mL Hospital ID Date Data Source [id number] 07/16/2019 03:33:00 AM [facility] Name Value Range Interpretation Description Data Sup porting Code Source(s) Document(s ) Hepatitis B NON-REACT [facility] virus surface BELLA [facility] Ag [Presence] in Serum ID Date Data Source [id number] 07/15/2019 11:32:00 AM [facility] Name Value Range Interpretation Description Data Sup porting Code Source(s) Document(s ) Lactate < 0.5 [facility] [Moles/volum mmol/L Hospital e] in Serum or Plasma ID Date Data Source [id number] 07/15/2019 11:32:00 AM [facility] Value Range Interpretation Description Data Sup porting Code Source(s) Document(s ) Lactate < 0.5 [facility] [Moles/volum mmol/L Hospital e] in Serum or Plasma ID Date Data Source [id number] 07/15/2019 01:36:00 AM [facility] Name Value Range Interpretation Description Data Sup porting Code Source(s) Document(s ) Bacteria No growth [facility] identified in Hospital Blood by Culture ID Date Data Source [id number] 07/15/2019 01:36:00 AM [facility] Name Value Range Interpretation Description Data Sup porting Code Source(s) Document(s ) Bacteria No growth [facility] identified in Hospital Blood by Culture ID Date Data Source [id number] 07/15/2019 12:18:00 AM [facility] Name Value Range Interpretation Description Data Sup porting Code Source(s) Document(s ) Natriuretic 818.8 [facility] peptide B pg/mL Hospital [Mass/volume] in Serum or Plasma ID Date Data Source [id number] 07/15/2019 12:18:00 AM [facility] TEST PERFORMED BY [employer] [facility] SENS[facility] CHEMILUMINESCENCE METHOD. Name Value Range Interpretation Description Data Sup porting Code Source(s) Document(s ) Troponin 0.06 [facility] I.cardiac ng/mL Hospital [Mass/volume ] in Serum or Plasma ID Date Data Source [id number] 07/15/2019 12:18:00 AM [facility] Name Value Range Interpretation Description Data Sup porting Code Source(s) Document(s ) Procalcitonin 4.7 [facility] [Mass/volume] in ng/mL Hospital Serum or Plasma ID Date Data Source [id number] 07/15/2019 12:18:00 AM [facility] Value Range Interpretation Code Description Data Sharon rce(s) Supporting Document(s ) Lipase 15 U/L [facility] [Enzymatic Hospital activity/vo lume] in Serum or Plasma ID Date Data Source [id number] 07/15/2019 12:18:00 AM [facility] Value Range Interpretation Code Description Data [facility] rce(s) Supporting Document(s ) OVALOCYTES [facility] ID Date Data Source [id number] 07/15/2019 12:18:00 AM [facility] Value Range Interpretation Code Description Data Supporting Source(s) Document(s ) POLYCHROMASIA [facility] ID Date Data Source [id number] 07/15/2019 12:18:00 AM [facility] Value Range Interpretation Description Data Sup porting Code Source(s) Document(s ) POIKILOCYTOSIS [facility] ID Date Data Source [id number] 07/15/2019 12:18:00 AM [facility] Name Value Range Interpretation Description Data Sup porting Code Source(s) Document(s ) Band form 1 % [facility] neutrophils/100 Hospital leukocytes in Blood ID Date Data Source [id number] 07/15/2019 12:18:00 AM [facility] Name Value Range Interpretation Description Data Sup porting Code Source(s) Document(s ) Natriuretic 818.8 [facility] peptide B pg/mL Hospital [Mass/volume] in Serum or Plasma ID Date Data Source [id number] 07/15/2019 12:18:00 AM [facility] TEST PERFORMED BY [employer] [facility] CHEMILUMINESCENCE METHOD. Name Value Range Interpretation Description Data Sup porting Code Source(s) Document(s ) Troponin 0.06 [facility] I.cardiac ng/mL Hospital [Mass/volume ] in Serum or Plasma ID Date Data Source [id number] 07/15/2019 12:18:00 AM [facility] Name Value Range Interpretation Description Data Sup porting Code Source(s) Document(s ) Procalcitonin 4.7 [facility] [Mass/volume] in ng/mL Hospital Serum or Plasma ID Date Data Source [id number] 07/15/2019 12:18:00 AM [facility] Name Value Range Interpretation Code Description Data Sharon rce(s) Supporting Document(s ) Lipase 15 U/L [facility] [Enzymatic Hospital activity/vo lume] in Serum or Plasma ID Date Data Source [id number] 07/15/2019 12:18:00 AM [facility] Name Value Range Interpretation Code Description Data [facility] rce(s) Supporting Document(s ) OVALOCYTES [facility] ID Date Data Source [id number] 07/15/2019 12:18:00 AM [facility] Name Value Range Interpretation Code Description Data Supporting Source(s) Document(s ) POLYCHROMASIA [facility] ID Date Data Source [id number] 07/15/2019 12:18:00 AM [facility] Value Range Interpretation Description Data Sup porting Code Source(s) Document(s ) POIKILOCYTOSIS [facility] ID Date Data Source [id number] 07/15/2019 12:18:00 AM [facility] Value Range Interpretation Description Data Sup porting Code Source(s) Document(s ) Band form 1 % [facility] neutrophils/100 Hospital leukocytes in Blood ID Date Data Source [id number] 07/14/2019 11:49:00 PM [facility] Value Range Interpretation Description Data Sup porting Code Source(s) Document(s ) Methicillin PATIENT IS White resistant PRESUMED [facility] POSITIVE FOR Hospital aureus (MRSA) MRSA DNA [Presence] COLONIZATION in Unspecified specimen by Probe and target amplification method Methicillin MRSA TARGET White resistant DNA DETECTED [facility] Hospital aureus (MRSA) DNA [Presence] in Unspecified specimen by Probe and target amplification method ID Date Data Source [id number] 07/14/2019 11:49:00 PM [facility] Value Range Interpretation Description Data Sup porting Code Source(s) Document(s ) Methicillin MRSA TARGET [facility] resistant DNA DETECTED [facility] aureus (MRSA) DNA [Presence] in Unspecified specimen by Probe and target amplification method Methicillin PATIENT IS [facility] resistant PRESUMED [facility] St[facility] POSITIVE FOR Hospital aureus (MRSA) MRSA DNA [Presence] COLONIZATION in Unspecified specimen by Probe and target amplification method ID Date Data Source [id number] 07/03/2019 01:54:00 AM [facility] Value Range Interpretation Description Data Sup porting Code Source(s) Document(s ) Fungus NO FUNGUS [facility] identified in ISOLATED Hospital Unspecified AFTER 21 specimen by DAYS Culture ID Date Data Source [id number] 07/03/2019 12:38:00 AM [facility] TEST PERFORMED BY [employer] [facility] SENS[facility] CHEMILUMINESCENCE METHOD. Name Value Range Interpretation Description Data Sup porting Code Source(s) Document(s ) Troponin 0.04 [facility] I.cardiac ng/mL Hospital [Mass/volume ] in Serum or Plasma ID Date Data Source [id number] 07/03/2019 12:12:00 AM [facility] [employer]:KAZ TERAN Name Value Range Interpretation Description Data Sup porting Code Source(s) Document(s ) Glucose 248 mg/dL [facility] [Mass/volume] Hospital in Capillary blood by Glucometer ID Date Data Source [id number] 07/02/2019 09:38:00 PM [facility] Name Value Range Interpretation Code Description Data Sharon rce(s) Supporting Document(s ) SMUDGE CELLS [facility]CC [facility] ID Date Data Source [id number] 07/02/2019 09:38:00 PM [facility] Name Value Range Interpretation Code Description Data [facility] rce(s) Supporting Document(s ) Lipase 23 U/L [facility] [Enzymatic Hospital activity/vo lume] in Serum or Plasma ID Date Data Source [id number] 07/02/2019 09:38:00 PM [facility] Name Value Range Interpretation Description Data Sup porting Code Source(s) Document(s ) Aspartate 26 U/L [facility] aminotransferase [facility] [Enzymatic Hospital activity/volume] in Serum or Plasma ID Date Data Source [id number] 07/02/2019 09:38:00 PM [facility] Name Value Range Interpretation Description Data Sup porting Code Source(s) Document(s ) Alanine < 8 U/L [facility] aminotransferase [facility] [Enzymatic Hospital activity/volume] in Serum or Plasma ID Date Data Source [id number] 07/02/2019 09:38:00 PM [facility] Name Value Range Interpretation Description Data Sup porting Code Source(s) Document(s ) Alkaline 97 U/L [facility] phosphatase Hospital [Enzymatic activity/volume ] in Serum or Plasma ID Date Data Source [id number] 07/02/2019 09:38:00 PM [facility] Name Value Range Interpretation Description Data Sup porting Code Source(s) Document(s ) Bilirubin.t 0.2 mg/dL [facility] [Mass/volum e] in Serum or Plasma ID Date Data Source [id number] 07/02/2019 09:38:00 PM [facility] Name Value Range Interpretation Code Description Data Sharon rce(s) Supporting Document(s ) Albumin/Glob 1.3 [facility] [Mass Hospital Ratio] in Serum or Plasma ID Date Data Source [id number] 07/02/2019 09:38:00 PM [facility] Name Value Range Interpretation Description Data Sup porting Code Source(s) Document(s ) Albumin 3.6 g/dL [facility] [Mass/volume Hospital ] in Serum or Plasma ID Date Data Source [id number] 07/02/2019 09:38:00 PM [facility] Name Value Range Interpretation Description Data Sup porting Code Source(s) Document(s ) Protein 6.3 g/dL [facility] [Mass/volume Hospital ] in Serum or Plasma ID Date Data Source [id number] 07/02/2019 09:38:00 PM [facility] Name Value Range Interpretation Description Data Sup porting Code Source(s) Document(s ) Calcium 7.4 mg/dL [facility] [Mass/volume Hospital ] in Serum or Plasma ID Date Data Source [id number] 07/02/2019 09:38:00 PM EST [facility] Name Value Range Interpretation Code Description Data Sharon rce(s) Supporting Document(s ) Urea 8.6 [facility] nitrogen/Cre Hospital atinine [Mass Ratio] in Serum or Plasma ID Date Data Source [id number] 07/02/2019 09:38:00 PM EST [facility] Name Value Range Interpretation Description Data Sup porting Code Source(s) Document(s ) Creatinine 4.2 mg/dL [facility] [Mass/volume] Hospital in Serum or Plasma ID Date Data Source [id number] 07/02/2019 09:38:00 PM [facility] Name Value Range Interpretation Description Data Sup porting Code Source(s) Document(s ) Urea 36 mg/dL [facility] nitrogen [facility] [Mass/volume ] in Serum or Plasma ID Date Data Source [id number] 07/02/2019 09:38:00 PM EST [facility] Name Value Range Interpretation Code Description Data Sharon rce(s) Supporting Document(s ) Anion gap in 19 [facility] Serum or [facility] Plasma ID Date Data Source [id number] 07/02/2019 09:38:00 PM EST [facility] Name Value Range Interpretation Description Data Sup porting Code Source(s) Document(s ) Carbon 26 mmol/L [facility] dioxide, Hospital total [Moles/volu me] in Serum or Plasma ID Date Data Source [id number] 07/02/2019 09:38:00 PM EST [facility] Name Value Range Interpretation Description Data Sup porting Code Source(s) Document(s ) Chloride 99 mmol/L [facility] [Moles/volum Hospital e] in Serum or Plasma ID Date Data Source [id number] 07/02/2019 09:38:00 PM EST [facility] MODERATE HEMOLYSIS Name Value Range Interpretation Description Data Sup porting Code Source(s) Document(s ) Potassium 4.9 [facility] [Moles/volume mmol/L Hospital ] in Serum or Plasma ID Date Data Source [id number] 07/02/2019 09:38:00 PM EST [facility] Name Value Range Interpretation Description Data Sup porting Code Source(s) Document(s ) Sodium 139 mmol/L [facility] [Moles/volu Hospital dc] in Serum or Plasma ID Date Data Source [id number] 07/02/2019 09:38:00 PM EST [facility] Name Value Range Interpretation Description Data Sup porting Code Source(s) Document(s ) Glucose 73 mg/dL [facility] [Mass/volume [facility] ] in Serum or Plasma ID Date Data Source [id number] 07/02/2019 09:38:00 PM [facility] Value Range Interpretation Code Description Data Supporting Source(s) Document(s ) NUCLEATED RBCS 0.0 % [facility] (AUTO Hospital DIFF%)DIS ID Date Data Source [id number] 07/02/2019 09:38:00 PM [facility] Value Range Interpretation Description Data Sup porting Code Source(s) Document(s ) Differential MANUAL [facility] cell count [facility] method - Blood ID Date Data Source [id number] 07/02/2019 09:38:00 PM [facility] Value Range Interpretation Code Description Data Sharon rce(s) Supporting Document(s ) MACROCYTOSIS OCC [facility] ID Date Data Source [id number] 07/02/2019 09:38:00 PM [facility] Value Range Interpretation Code Description Data Sharon rce(s) Supporting Document(s ) ANISOCYTOSIS OCC [facility] ID Date Data Source [id number] 07/02/2019 09:38:00 PM EST [facility] Name Value Range Interpretation Description Data Sup porting Code Source(s) Document(s ) Eosinophils 0.25 [facility] [#/volume] in 10*3/uL Hospital Blood by Manual count ID Date Data Source [id number] 07/02/2019 09:38:00 PM EST [facility] Name Value Range Interpretation Description Data Sup porting Code Source(s) Document(s ) Monocytes 0.22 [facility] [#/volume] in 10*3/uL Hospital Blood by Manual count ID Date Data Source [id number] 07/02/2019 09:38:00 PM EST [facility] Name Value Range Interpretation Description Data Sup porting Code Source(s) Document(s ) Lymphocytes 1.01 [facility] [#/volume] in 10*3/uL Hospital Blood by Manual count ID Date Data Source [id number] 07/02/2019 09:38:00 PM [facility] Name Value Range Interpretation Description Data Sup porting Code Source(s) Document(s ) Neutrophils 2.12 [facility] [#/volume] in 10*3/uL Hospital Blood by Manual count ID Date Data Source [id number] 07/02/2019 09:38:00 PM [facility] Name Value Range Interpretation Description Data Sup porting Code Source(s) Document(s ) Eosinophils/100 7 % [facility] leukocytes in Hospital Blood by Manual count ID Date Data Source [id number] 07/02/2019 09:38:00 PM EST [facility] Name Value Range Interpretation Description Data Sup porting Code Source(s) Document(s ) Monocytes/100 6 % [facility] leukocytes in Hospital Blood by Manual count ID Date Data Source [id number] 07/02/2019 09:38:00 PM [facility] Name Value Range Interpretation Description Data Sup porting Code Source(s) Document(s ) Lymphocytes/100 28 % [facility] leukocytes in Hospital Blood by Manual count ID Date Data Source [id number] 07/02/2019 09:38:00 PM [facility] Value Range Interpretation Description Data Sup porting Code Source(s) Document(s ) Neutrophils/100 59 % [facility] leukocytes in Hospital Blood by Manual count ID Date Data Source [id number] 07/02/2019 09:38:00 PM [facility] Value Range Interpretation Description Data Sup porting Code Source(s) Document(s ) Platelet mean 12.1 fL [facility] volume [facility] [Entitic volume] in Blood by Automated count ID Date Data Source [id number] 07/02/2019 09:38:00 PM [facility] Value Range Interpretation Description Data Sup porting Code Source(s) Document(s ) Platelets 94 [facility] [#/volume] in 10*3/uL Hospital Blood by Automated count ID Date Data Source [id number] 07/02/2019 09:38:00 PM [facility] Value Range Interpretation Description Data Sup porting Code Source(s) Document(s ) Erythrocyte 14.2 % [facility] distribution Hospital width [Ratio] by Automated count ID Date Data Source [id number] 07/02/2019 09:38:00 PM [facility] Value Range Interpretation Description Data Sup porting Code Source(s) Document(s ) Erythrocyte mean 31.5 [facility] corpuscular g/dL Hospital hemoglobin concentration [Mass/volume] by Automated count ID Date Data Source [id number] 07/02/2019 09:38:00 PM [facility] Value Range Interpretation Description Data Sup porting Code Source(s) Document(s ) Erythrocyte 33.1 pg [facility] mean Hospital corpuscular hemoglobin [Entitic mass] by Automated count ID Date Data Source [id number] 07/02/2019 09:38:00 PM EST [facility] Name Value Range Interpretation Description Data Sup porting Code Source(s) Document(s ) Erythrocyte 105.2 fL [facility] mean Hospital corpuscular volume [Entitic volume] by Automated count ID Date Data Source [id number] 07/02/2019 09:38:00 PM EST [facility] Name Value Range Interpretation Description Data Sup porting Code Source(s) Document(s ) Hematocrit 30.2 % [facility] [Volume Hospital Fraction] of Blood by Automated count ID Date Data Source [id number] 07/02/2019 09:38:00 PM [facility] Name Value Range Interpretation Description Data Sup porting Code Source(s) Document(s ) Hemoglobin 9.5 g/dL [facility] [Mass/volume] Hospital in Blood ID Date Data Source [id number] 07/02/2019 09:38:00 PM [facility] Name Value Range Interpretation Description Data Sup porting Code Source(s) Document(s ) Erythrocytes 2.87 [facility] [#/volume] in 10*6/uL Hospital Blood by Automated count ID Date Data Source [id number] 07/02/2019 09:38:00 PM [facility] Name Value Range Interpretation Description Data Sup porting Code Source(s) Document(s ) Leukocytes 3.6 [facility] [#/volume] in 10*3/uL Hospital Blood by Automated count ID Date Data Source [id number] 07/02/2019 09:38:00 PM [facility] Name Value Range Interpretation Code Description Data Sharon rce(s) Supporting Document(s ) Cells 100 [facility] Counted [facility] Total [#] in Blood ID Date Data Source [id number] 07/02/2019 09:38:00 PM [facility] GIANT PLATELETS PRESENT Name Value Range Interpretation Description Data Sup porting Code Source(s) Document(s ) PLATELET PRESENT [facility] Hospital ID Date Data Source [id number] 07/02/2019 09:38:00 PM [facility] Name Value Range Interpretation Description Data Sup porting Code Source(s) Document(s ) Platelets DECREASED [facility] [#/volume] in Hospital Blood by Estimate ID Date Data Source [id number] 07/02/2019 09:38:00 PM [facility] Name Value Range Interpretation Code Description Data Sharon rce(s) Supporting Document(s ) SMUDGE CELLS [facility] ID Date Data Source [id number] 07/02/2019 09:38:00 PM [facility] Name Value Range Interpretation Code Description Data Supporting Source(s) Document(s ) POLYCHROMASIA [facility] ID Date Data Source [id number] 06/07/2019 06:27:00 PM [facility] [employer] Knitting Machine Operator:NIDHI GUEVARA Name Value Range Interpretation Description Data Sup porting Code Source(s) Document(s ) Glucose 97 mg/dL [facility] [Mass/volume] Hospital in Capillary blood by Glucometer ID Date Data Source [id number] 06/07/2019 06:27:00 PM [facility] [employer] Knitting Machine Operator:PAOLA, NIDHI Name Value Range Interpretation Description Data Sup porting Code Source(s) Document(s ) Glucose 97 mg/dL [facility] [Mass/volume] [facility] in Capillary blood by Glucometer ID Date Data Source [id number] 06/07/2019 09:17:00 AM [facility] THERAPEUTIC RANGES:UNFRACTIONATED HEPARI N THERAPY: 60-90 SECONDSARGATROBAN THERAPY: 49-99 SECONDS Name Value Range Interpretation Description Data Sup porting Code Source(s) Document(s ) aPTT in 33.1 s [facility] Platelet poor [facility] plasma by Coagulation assay ID Date Data Source [id number] 06/07/2019 09:17:00 AM [facility] THERAPEUTIC RANGE FOR STANDARD ORALANTIC OAGULANT THERAPY: 2.0-3.0THERAPEUTIC RANGE FOR HIGH DOSE ORALANTICOAGULANT THERAPY (MECHANICAL HEARTVALVE REPLACEMENT): 2.5-3.5 Name Value Range Interpretation Description Data Sup porting Code Source(s) Document(s ) INR in Platelet 1.0 [facility] poor plasma by [facility] Coagulation assay ID Date Data Source [id number] 06/07/2019 09:17:00 AM [facility] Name Value Range Interpretation Description Data Sup porting Code Source(s) Document(s ) PT panel - 11.6 s [facility] Platelet poor [facility] plasma by Coagulation assay ID Date Data Source [id number] 06/07/2019 09:17:00 AM [facility] NEUT VACUOLES PRESENT Name Value Range Interpretation Code Description Data Supporting Source(s) Document(s ) WBC COMMENT PRESENT [facility] ID Date Data Source [id number] 06/07/2019 09:17:00 AM [facility] Name Value Range Interpretation Code Description Data Sharon rce(s) Supporting Document(s ) HYPOCHROMIA OCC [facility] ID Date Data Source [id number] 06/07/2019 09:17:00 AM [facility] Name Value Range Interpretation Description Data Sup porting Code Source(s) Document(s ) Basophils 0.10 [facility] [#/volume] in 10*3/uL Hospital Blood by Manual count ID Date Data Source [id number] 06/07/2019 09:17:00 AM [facility] Name Value Range Interpretation Description Data Sup porting Code Source(s) Document(s ) Metamyelocytes/ 1 % [facility] 100 leukocytes Hospital in Blood by Manual count ID Date Data Source [id number] 06/07/2019 09:17:00 AM [facility] Name Value Range Interpretation Description Data Sup porting Code Source(s) Document(s ) Basophils/100 2 % [facility] leukocytes in Hospital Blood by Manual count ID Date Data Source [id number] 06/07/2019 09:17:00 AM [facility] TEST PERFORMED BY [employer] [facility] [facility] CHEMILUMINESCENCE METHOD. Name Value Range Interpretation Description Data Sup porting Code Source(s) Document(s ) Troponin 0.06 [facility] I.cardiac ng/mL Hospital [Mass/volume ] in Serum or Plasma ID Date Data Source [id number] 06/07/2019 09:17:00 AM [facility] Hospital Name Value Range Interpretation Description Data Sup porting Code Source(s) Document(s ) Aspartate 12 U/L White aminotransferase [facility] [Enzymatic Hospital activity/volume] in Serum or Plasma ID Date Data Source [id number] 06/07/2019 09:17:00 AM [facility] Hospital Name Value Range Interpretation Description Data Sup porting Code Source(s) Document(s ) Alanine < 8 U/L White aminotransferase [facility] [Enzymatic Hospital activity/volume] in Serum or Plasma ID Date Data Source [id number] 06/07/2019 09:17:00 AM [facility] Hospital Name Value Range Interpretation Description Data Sup porting Code Source(s) Document(s ) Alkaline 118 U/L [facility] phosphatase [facility] [Enzymatic activity/volume ] in Serum or Plasma ID Date Data Source [id number] 06/07/2019 09:17:00 AM [facility] Name Value Range Interpretation Description Data Sup porting Code Source(s) Document(s ) Bilirubin.t 0.2 mg/dL [facility] [Mass/volum e] in Serum or Plasma ID Date Data Source [id number] 06/07/2019 09:17:00 AM [facility] Name Value Range Interpretation Code Description Data Sharon rce(s) Supporting Document(s ) Albumin/Glob 1.3 [facility] [Mass Hospital Ratio] in Serum or Plasma ID Date Data Source [id number] 06/07/2019 09:17:00 AM [facility] Name Value Range Interpretation Description Data Sup porting Code Source(s) Document(s ) Albumin 3.6 g/dL [facility] [Mass/volume Hospital ] in Serum or Plasma ID Date Data Source [id number] 06/07/2019 09:17:00 AM [facility] Name Value Range Interpretation Description Data Sup porting Code Source(s) Document(s ) Protein 6.3 g/dL [facility] [Mass/volume Hospital ] in Serum or Plasma ID Date Data Source [id number] 06/07/2019 09:17:00 AM [facility] NOTIFICATION AND READ BACK OF CRITICAL R ESULTS TO THOMAS MAYFIELD RN @ [facility] AT 0956 ON 06/07/19 BY Ruma Manley.REPORTED CRITI MARCI VALUES SHOULD BE INTERPRETED WITHIN CLINICAL CONTEXT. Name Value Range Interpretation Description Data Sup porting Code Source(s) Document(s ) Calcium 6.4 mg/dL [facility] [Mass/volume Hospital ] in Serum or Plasma ID Date Data Source [id number] 06/07/2019 09:17:00 AM [facility] Name Value Range Interpretation Description Data Sup porting Code Source(s) Document(s ) Platelets 85 [facility] [#/volume] in 10*3/uL Hospital Blood by Automated count ID Date Data Source [id number] 06/07/2019 09:17:00 AM [facility] Value Range Interpretation Description Data Sup porting Code Source(s) Document(s ) Erythrocyte 14.6 % [facility] width [Ratio] by Automated count ID Date Data Source [id number] 06/07/2019 09:17:00 AM [facility] Value Range Interpretation Description Data Sup porting Code Source(s) Document(s ) Erythrocyte mean 32.1 [facility] corpuscular g/dL [facility] hemoglobin concentration [Mass/volume] by Automated count ID Date Data Source [id number] 06/07/2019 09:17:00 AM [facility] Value Range Interpretation Description Data Sup porting Code Source(s) Document(s ) Erythrocyte 33.5 pg [facility] corpuscular hemoglobin [Entitic mass] by Automated count ID Date Data Source [id number] 06/07/2019 09:17:00 AM [facility] Value Range Interpretation Description Data Sup porting Code Source(s) Document(s ) Erythrocyte 104.3 fL [facility] corpuscular volume [Entitic volume] by Automated count ID Date Data Source [id number] 06/07/2019 09:17:00 AM [facility] Value Range Interpretation Description Data Sup porting Code Source(s) Document(s ) Hematocrit 29.3 % [facility] [Volume Hospital Fraction] of Blood by Automated count ID Date Data Source [id number] 06/07/2019 09:17:00 AM [facility] Value Range Interpretation Description Data Sup porting Code Source(s) Document(s ) Hemoglobin 9.4 g/dL [facility] [Mass/volume] Hospital in Blood ID Date Data Source [id number] 06/07/2019 09:17:00 AM [facility] Name Value Range Interpretation Description Data Sup porting Code Source(s) Document(s ) Erythrocytes 2.81 [facility] [#/volume] in 10*6/uL Hospital Blood by Automated count ID Date Data Source [id number] 06/07/2019 09:17:00 AM [facility] Name Value Range Interpretation Description Data Sup porting Code Source(s) Document(s ) Leukocytes 5.0 [facility] [#/volume] in 10*3/uL Hospital Blood by Automated count ID Date Data Source [id number] 06/07/2019 09:17:00 AM [facility] TEST PERFORMED BY [employer] [facility] [facility] [facility] CHEMILUMINESCENCE METHOD. Name Value Range Interpretation Description Data Sup porting Code Source(s) Document(s ) Troponin 0.06 [facility] I.cardiac ng/mL Hospital [Mass/volume ] in Serum or Plasma ID Date Data Source [id number] 06/07/2019 09:17:00 AM [facility] Name Value Range Interpretation Description Data Sup porting Code Source(s) Document(s ) Aspartate 12 U/L White aminotransferase [facility] [Enzymatic Hospital activity/volume] in Serum or Plasma ID Date Data Source [id number] 06/07/2019 09:17:00 AM [facility] Name Value Range Interpretation Description Data Sup porting Code Source(s) Document(s ) Alanine < 8 U/L White aminotransferase [facility] [Enzymatic Hospital activity/volume] in Serum or Plasma ID Date Data Source [id number] 06/07/2019 09:17:00 AM [facility] Name Value Range Interpretation Description Data Sup porting Code Source(s) Document(s ) Alkaline 118 U/L [facility] phosphatase [facility] [Enzymatic activity/volume ] in Serum or Plasma ID Date Data Source [id number] 06/07/2019 09:17:00 AM [facility] Name Value Range Interpretation Description Data Sup porting Code Source(s) Document(s ) Bilirubin.t 0.2 mg/dL [facility] [Mass/volum e] in Serum or Plasma ID Date Data Source [id number] 06/07/2019 09:17:00 AM [facility] Name Value Range Interpretation Code Description Data Sharon rce(s) Supporting Document(s ) [facility] in Serum or Plasma ID Date Data Source [id number] 06/07/2019 09:17:00 AM [facility] Name Value Range Interpretation Description Data Sup porting Code Source(s) Document(s ) Albumin 3.6 g/dL [facility] [Mass/volume Hospital ] in Serum or Plasma ID Date Data Source [id number] 06/07/2019 09:17:00 AM [facility] Name Value Range Interpretation Description Data Sup porting Code Source(s) Document(s ) Protein 6.3 g/dL [facility] [Mass/volume Hospital ] in Serum or Plasma ID Date Data Source [id number] 06/07/2019 09:17:00 AM [facility] NOTIFICATION AND READ BACK OF CRITICAL R ESULTS TO THOMAS MAYFIELD RN @ [facility] AT 0956 ON 06/07/19 BY Ruma Manley.REPORTED CRITI MARCI VALUES SHOULD BE INTERPRETED WITHIN CLINICAL CONTEXT. Name Value Range Interpretation Description Data Sup porting Code Source(s) Document(s ) Calcium 6.4 mg/dL [facility] [Mass/volume Hospital ] in Serum or Plasma ID Date Data Source [id number] 06/07/2019 09:17:00 AM [facility] Name Value Range Interpretation Code Description Data Sharon rce(s) Supporting Document(s ) Urea 8.7 [facility] nitrogen/Cre Hospital atinine [Mass Ratio] in Serum or Plasma ID Date Data Source [id number] 06/07/2019 09:17:00 AM [facility] NOTIFICATION AND READ BACK OF CRITICAL R ESULTS TO THOMAS MAYFIELD RN @ [facility] AT 0956 ON 06/07/19 BY Ruma Manley.REPORTED CRITI MARCI VALUES SHOULD BE INTERPRETED WITHIN CLINICAL CONTEXT. Name Value Range Interpretation Description Data Sup porting Code Source(s) Document(s ) Creatinine 7.5 mg/dL [facility] [Mass/volume] Hospital in Serum or Plasma ID Date Data Source [id number] 06/07/2019 09:17:00 AM [facility] Name Value Range Interpretation Description Data Sup porting Code Source(s) Document(s ) Urea 65 mg/dL [facility] nitrogen [facility] [Mass/volume ] in Serum or Plasma ID Date Data Source [id number] 06/07/2019 09:17:00 AM [facility] Name Value Range Interpretation Code Description Data Sharon rce(s) Supporting Document(s ) Anion gap in 21 [facility] Serum or Hospital Plasma ID Date Data Source [id number] 06/07/2019 09:17:00 AM [facility] Name Value Range Interpretation Description Data Sup porting Code Source(s) Document(s ) Carbon 25 mmol/L [facility] dioxide, Hospital total [Moles/volu me] in Serum or Plasma ID Date Data Source [id number] 06/07/2019 09:17:00 AM [facility] Name Value Range Interpretation Description Data Sup porting Code Source(s) Document(s ) Chloride 100 [facility] [Moles/volum mmol/L Hospital e] in Serum or Plasma ID Date Data Source [id number] 06/07/2019 09:17:00 AM [facility] Name Value Range Interpretation Description Data Sup porting Code Source(s) Document(s ) Potassium 5.1 [facility] [Moles/volume mmol/L [facility] ] in Serum or Plasma ID Date Data Source [id number] 06/07/2019 09:17:00 AM [facility] Name Value Range Interpretation Description Data Sup porting Code Source(s) Document(s ) Sodium 141 mmol/L [facility] [Moles/volu Hospital dc] in Serum or Plasma ID Date Data Source [id number] 06/07/2019 09:17:00 AM [facility] Value Range Interpretation Description Data Sup porting Code Source(s) Document(s ) Glucose 75 mg/dL [facility] [Mass/volume [facility] ] in Serum or Plasma ID Date Data Source [id number] 06/07/2019 09:17:00 AM [facility] THERAPEUTIC RANGES:UNFRACTIONATED HEPARI N THERAPY: 60-90 SECONDSARGATROBAN THERAPY: 49-99 SECONDS Name Value Range Interpretation Description Data Sup porting Code Source(s) Document(s ) aPTT in 33.1 s [facility] Platelet poor [facility] plasma by Coagulation assay ID Date Data Source [id number] 06/07/2019 09:17:00 AM [facility] THERAPEUTIC RANGE FOR STANDARD ORALANTIC OAGULANT THERAPY: 2.0-3.0THERAPEUTIC RANGE FOR HIGH DOSE ORALANTICOAGULANT THERAPY (MECHANICAL HEARTVALVE REPLACEMENT): 2.5-3.5 Name Value Range Interpretation Description Data Sup porting Code Source(s) Document(s ) INR in Platelet 1.0 [facility] poor plasma by [facility] Coagulation assay ID Date Data Source [id number] 06/07/2019 09:17:00 AM [facility] Name Value Range Interpretation Description Data Sup porting Code Source(s) Document(s ) PT panel - 11.6 s [facility] Platelet poor Hospital plasma by Coagulation assay ID Date Data Source [id number] 06/07/2019 09:17:00 AM [facility] Name Value Range Interpretation Code Description Data Supporting Source(s) Document(s ) NUCLEATED RBCS 0.0 % [facility] (AUTO Hospital DIFF%)DIS ID Date Data Source [id number] 06/07/2019 09:17:00 AM [facility] [facility] Name Value Range Interpretation Description Data Sup porting Code Source(s) Document(s ) Differential MANUAL [facility] method - Blood ID Date Data Source [id number] 06/07/2019 09:17:00 AM [facility] Name Value Range Interpretation Code Description Data Sharon rce(s) Supporting Document(s ) Cells 100 [facility] Total [#] in Blood ID Date Data Source [id number] 06/07/2019 09:17:00 AM [facility] PLT ESTIMATE SLIGHTLY DECREASED Name Value Range Interpretation Description Data Sup porting Code Source(s) Document(s ) PLATELET PRESENT [facility] Hospital ID Date Data Source [id number] 06/07/2019 09:17:00 AM [facility] NEUT VACUOLES PRESENT Name Value Range Interpretation Code Description Data Supporting Source(s) Document(s ) WBC COMMENT PRESENT [facility] ID Date Data Source [id number] 06/07/2019 09:17:00 AM [facility] Name Value Range Interpretation Code Description Data Supporting Source(s) Document(s ) POLYCHROMASIA OCC [facility] ID Date Data Source [id number] 06/07/2019 09:17:00 AM [facility] Name Value Range Interpretation Code Description Data Sharon rce(s) Supporting Document(s ) HYPOCHROMIA OCC [facility] ID Date Data Source [id number] 06/07/2019 09:17:00 AM [facility] Name Value Range Interpretation Code Description Data Sharon rce(s) Supporting Document(s ) MACROCYTOSIS 1+ [facility] ID Date Data Source [id number] 06/07/2019 09:17:00 AM [facility] Name Value Range Interpretation Code Description Data Sharon rce(s) Supporting Document(s ) ANISOCYTOSIS [facility] ID Date Data Source [id number] 06/07/2019 09:17:00 AM [facility] Value Range Interpretation Description Data Sup porting Code Source(s) Document(s ) Basophils 0.10 [facility] [#/volume] in 10*3/uL Hospital Blood by Manual count ID Date Data Source [id number] 06/07/2019 09:17:00 AM [facility] Name Value Range Interpretation Description Data Sup porting Code Source(s) Document(s ) Eosinophils 0.10 [facility] [#/volume] in 10*3/uL Hospital Blood by Manual count ID Date Data Source [id number] 06/07/2019 09:17:00 AM [facility] Name Value Range Interpretation Description Data Sup porting Code Source(s) Document(s ) Monocytes 0.30 [facility] [#/volume] in 10*3/uL Hospital Blood by Manual count ID Date Data Source [id number] 06/07/2019 09:17:00 AM [facility] Name Value Range Interpretation Description Data Sup porting Code Source(s) Document(s ) Lymphocytes 0.90 [facility] [#/volume] in 10*3/uL Hospital Blood by Manual count ID Date Data Source [id number] 06/07/2019 09:17:00 AM EST [facility] Name Value Range Interpretation Description Data Sup porting Code Source(s) Document(s ) Neutrophils 3.55 [facility] [#/volume] in 10*3/uL Hospital Blood by Manual count ID Date Data Source [id number] 06/07/2019 09:17:00 AM EST [facility] Value Range Interpretation Description Data Sup porting Code Source(s) Document(s ) Metamyelocytes/ 1 % [facility] 100 [facility] Hospital in Blood by Manual count ID Date Data Source [id number] 06/07/2019 09:17:00 AM EST [facility] Value Range Interpretation Description Data Sup porting Code Source(s) Document(s ) Basophils/100 2 % [facility] leukocytes in Hospital Blood by Manual count ID Date Data Source [id number] 06/07/2019 09:17:00 AM EST [facility] Value Range Interpretation Description Data Sup porting Code Source(s) Document(s ) Eosinophils/100 2 % [facility] leukocytes in Hospital Blood by Manual count ID Date Data Source [id number] 06/07/2019 09:17:00 AM EST [facility] Value Range Interpretation Description Data Sup porting Code Source(s) Document(s ) Monocytes/100 6 % [facility] leukocytes in Hospital Blood by Manual count ID Date Data Source [id number] 06/07/2019 09:17:00 AM EST [facility] Name Value Range Interpretation Description Data Sup porting Code Source(s) Document(s ) Lymphocytes/100 18 % [facility] leukocytes in [facility] Blood by Manual count ID Date Data Source [id number] 06/07/2019 09:17:00 AM EST [facility] Name Value Range Interpretation Description Data Sup porting Code Source(s) Document(s ) Neutrophils/100 70 % [facility] leukocytes in [facility] Blood by Manual count ID Date Data Source [id number] 06/07/2019 09:17:00 AM [facility] Value Range Interpretation Description Data Sup porting Code Source(s) Document(s ) Platelet mean 12.2 fL [facility] volume [facility] [Entitic volume] in Blood by Automated count ID Date Data Source [id number] 06/07/2019 09:17:00 AM [facility] Value Range Interpretation Description Data Sup porting Code Source(s) Document(s ) Platelets 85 [facility] [#/volume] in 10*3/uL Hospital Blood by Automated count ID Date Data Source [id number] 06/07/2019 09:17:00 AM [facility] Value Range Interpretation Description Data Sup porting Code Source(s) Document(s ) Erythrocyte 14.6 % [facility] Hospital width [Ratio] by Automated count ID Date Data Source [id number] 06/07/2019 09:17:00 AM [facility] Value Range Interpretation Description Data Sup porting Code Source(s) Document(s ) Erythrocyte mean 32.1 [facility] corpuscular g/dL Hospital hemoglobin concentration [Mass/volume] by Automated count ID Date Data Source [id number] 06/07/2019 09:17:00 AM [facility] Value Range Interpretation Description Data Sup porting Code Source(s) Document(s ) Erythrocyte 33.5 pg [facility] corpuscular hemoglobin [Entitic mass] by Automated count ID Date Data Source [id number] 06/07/2019 09:17:00 AM [facility] Value Range Interpretation Description Data Sup porting Code Source(s) Document(s ) Erythrocyte 104.3 fL [facility] corpuscular volume [Entitic volume] by Automated count ID Date Data Source [id number] 06/07/2019 09:17:00 AM [facility] Name Value Range Interpretation Description Data Sup porting Code Source(s) Document(s ) Hematocrit 29.3 % [facility] [Volume Hospital Fraction] of Blood by Automated count ID Date Data Source [id number] 06/07/2019 09:17:00 AM [facility] Name Value Range Interpretation Description Data Sup porting Code Source(s) Document(s ) Hemoglobin 9.4 g/dL [facility] [Mass/volume] Hospital in Blood ID Date Data Source [id number] 06/07/2019 09:17:00 AM [facility] Name Value Range Interpretation Description Data Sup porting Code Source(s) Document(s ) Erythrocytes 2.81 [facility] [#/volume] in 10*6/uL Hospital Blood by Automated count ID Date Data Source [id number] 06/07/2019 09:17:00 AM [facility] Name Value Range Interpretation Description Data Sup porting Code Source(s) Document(s ) Leukocytes 5.0 [facility] [#/volume] in 10*3/uL Hospital Blood by Automated count ID Date Data Source [id number] 06/07/2019 09:17:00 AM [facility] Name Value Range Interpretation Code Description Data Sharon rce(s) Supporting Document(s ) Urea 8.7 [facility] nitrogen/Cre Hospital atinine [Mass Ratio] in Serum or Plasma ID Date Data Source [id number] 06/07/2019 09:17:00 AM [facility] NOTIFICATION AND READ BACK OF CRITICAL R ESULTS TO THOMAS MAYFIELD RN @ [facility] AT 0956 ON 06/07/19 BY Ruma Manley.REPORTED CRITI AMRCI VALUES SHOULD BE INTERPRETED WITHIN CLINICAL CONTEXT. Name Value Range Interpretation Description Data Sup porting Code Source(s) Document(s ) Creatinine 7.5 mg/dL [facility] [Mass/volume] Hospital in Serum or Plasma ID Date Data Source [id number] 06/07/2019 09:17:00 AM [facility] Hospital Name Value Range Interpretation Description Data Sup porting Code Source(s) Document(s ) Urea 65 mg/dL [facility] nitrogen [facility] [Mass/volume ] in Serum or Plasma ID Date Data Source [id number] 06/07/2019 09:17:00 AM [facility] Name Value Range Interpretation Code Description Data Sharon rce(s) Supporting Document(s ) Anion gap in 21 [facility] Serum or [facility] Plasma ID Date Data Source [id number] 06/07/2019 09:17:00 AM [facility] Value Range Interpretation Description Data Sup porting Code Source(s) Document(s ) Carbon 25 mmol/L [facility] dioxide, Hospital total [Moles/volu me] in Serum or Plasma ID Date Data Source [id number] 06/07/2019 09:17:00 AM [facility] Name Value Range Interpretation Description Data Sup porting Code Source(s) Document(s ) Chloride 100 [facility] [Moles/volum mmol/L Hospital e] in Serum or Plasma ID Date Data Source [id number] 06/07/2019 09:17:00 AM [facility] Hospital Name Value Range Interpretation Description Data Sup porting Code Source(s) Document(s ) Potassium 5.1 [facility] [Moles/volume mmol/L Hospital ] in Serum or Plasma ID Date Data Source [id number] 06/07/2019 09:17:00 AM [facility] Name Value Range Interpretation Description Data Sup porting Code Source(s) Document(s ) Sodium 141 mmol/L [facility] [Moles/volu Hospital me] in Serum or Plasma ID Date Data Source [id number] 06/07/2019 09:17:00 AM [facility] Name Value Range Interpretation Description Data Sup porting Code Source(s) Document(s ) Glucose 75 mg/dL [facility] [Mass/volume Hospital ] in Serum or Plasma ID Date Data Source [id number] 06/07/2019 09:17:00 AM [facility] THERAPEUTIC RANGES:UNFRACTIONATED HEPARI N THERAPY: 60-90 SECONDSARGATROBAN THERAPY: 49-99 SECONDS Name Value Range Interpretation Description Data Sup porting Code Source(s) Document(s ) aPTT in 33.1 s [facility] Platelet poor [facility] plasma by Coagulation assay ID Date Data Source [id number] 06/07/2019 09:17:00 AM [facility] THERAPEUTIC RANGE FOR STANDARD ORALANTIC OAGULANT THERAPY: 2.0-3.0THERAPEUTIC RANGE FOR HIGH DOSE ORALANTICOAGULANT THERAPY (MECHANICAL HEARTVALVE REPLACEMENT): 2.5-3.5 Name Value Range Interpretation Description Data Sup porting Code Source(s) Document(s ) INR in Platelet 1.0 [facility] poor plasma by Hospital Coagulation assay ID Date Data Source [id number] 06/07/2019 09:17:00 AM [facility] Name Value Range Interpretation Description Data Sup porting Code Source(s) Document(s ) PT panel - 11.6 s [facility] Platelet poor [facility] plasma by Coagulation assay ID Date Data Source [id number] 06/07/2019 09:17:00 AM [facility] Name Value Range Interpretation Code Description Data Supporting Source(s) Document(s ) NUCLEATED RBCS 0.0 % [facility] (AUTO Hospital DIFF%)DIS ID Date Data Source [id number] 06/07/2019 09:17:00 AM [facility] Name Value Range Interpretation Description Data Sup porting Code Source(s) Document(s ) Differential MANUAL [facility] cell count [facility] method - Blood ID Date Data Source [id number] 06/07/2019 09:17:00 AM [facility] Name Value Range Interpretation Code Description Data Sharon rce(s) Supporting Document(s ) Cells 100 [facility] Hospital Total [#] in Blood ID Date Data Source [id number] 06/07/2019 09:17:00 AM [facility] PLT ESTIMATE SLIGHTLY DECREASED Name Value Range Interpretation Description Data Sup porting Code Source(s) Document(s ) PLATELET PRESENT [facility] COMMENT Hospital ID Date Data Source [id number] 06/07/2019 09:17:00 AM [facility] NEUT VACUOLES PRESENT Name Value Range Interpretation Code Description Data Supporting Source(s) Document(s ) WBC COMMENT PRESENT [facility] ID Date Data Source [id number] 06/07/2019 09:17:00 AM [facility] Name Value Range Interpretation Code Description Data Supporting Source(s) Document(s ) POLYCHROMASIA [facility] ID Date Data Source [id number] 06/07/2019 09:17:00 AM [facility] Name Value Range Interpretation Code Description Data Sharon rce(s) Supporting Document(s ) HYPOCHROMIA [facility] ID Date Data Source [id number] 06/07/2019 09:17:00 AM [facility] Name Value Range Interpretation Code Description Data Sharon rce(s) Supporting Document(s ) MACROCYTOSIS 1+ [facility] ID Date Data Source [id number] 06/07/2019 09:17:00 AM [facility] Name Value Range Interpretation Code Description Data Sharon rce(s) Supporting Document(s ) ANISOCYTOSIS OCC [facility] ID Date Data Source [id number] 06/07/2019 09:17:00 AM [facility] Name Value Range Interpretation Description Data Sup porting Code Source(s) Document(s ) Basophils 0.10 [facility] [#/volume] in 10*3/uL Hospital Blood by Manual count ID Date Data Source [id number] 06/07/2019 09:17:00 AM [facility] Name Value Range Interpretation Description Data Sup porting Code Source(s) Document(s ) Eosinophils 0.10 [facility] [#/volume] in 10*3/uL Hospital Blood by Manual count ID Date Data Source [id number] 06/07/2019 09:17:00 AM [facility] Value Range Interpretation Description Data Sup porting Code Source(s) Document(s ) Monocytes 0.30 [facility] [#/volume] in 10*3/uL Hospital Blood by Manual count ID Date Data Source [id number] 06/07/2019 09:17:00 AM [facility] Value Range Interpretation Description Data Sup porting Code Source(s) Document(s ) Lymphocytes 0.90 [facility] [#/volume] in 10*3/uL Hospital Blood by Manual count ID Date Data Source [id number] 06/07/2019 09:17:00 AM [facility] Name Value Range Interpretation Description Data Sup porting Code Source(s) Document(s ) Neutrophils 3.55 [facility] [#/volume] in 10*3/uL Hospital Blood by Manual count ID Date Data Source [id number] 06/07/2019 09:17:00 AM [facility] Value Range Interpretation Description Data Sup porting Code Source(s) Document(s ) Metamyelocytes/ 1 % [facility] 100 leukocytes Hospital in Blood by Manual count ID Date Data Source [id number] 06/07/2019 09:17:00 AM EST [facility] Name Value Range Interpretation Description Data Sup porting Code Source(s) Document(s ) Basophils/100 2 % [facility] leukocytes in Hospital Blood by Manual count ID Date Data Source [id number] 06/07/2019 09:17:00 AM EST [facility] Name Value Range Interpretation Description Data Sup porting Code Source(s) Document(s ) Eosinophils/100 2 % [facility] leukocytes in Hospital Blood by Manual count ID Date Data Source [id number] 06/07/2019 09:17:00 AM [facility] Value Range Interpretation Description Data Sup porting Code Source(s) Document(s ) Monocytes/100 6 % [facility] leukocytes in [facility] Blood by Manual count ID Date Data Source [id number] 06/07/2019 09:17:00 AM [facility] Name Value Range Interpretation Description Data Sup porting Code Source(s) Document(s ) Lymphocytes/100 18 % [facility] leukocytes in Hospital Blood by Manual count ID Date Data Source [id number] 06/07/2019 09:17:00 AM [facility] Value Range Interpretation Description Data Sup porting Code Source(s) Document(s ) Neutrophils/100 70 % [facility] leukocytes in Hospital Blood by Manual count ID Date Data Source [id number] 06/07/2019 09:17:00 AM [facility] Value Range Interpretation Description Data Sup porting Code Source(s) Document(s ) Platelet mean 12.2 fL [facility] volume [facility] [Entitic volume] in Blood by Automated count ID Date Data Source [id number] 05/23/2019 06:27:00 AM EST [facility] Name Value Range Interpretation Description Data Sup porting Code Source(s) Document(s ) Magnesium 2.5 mg/dL [facility] [Mass/volume] Hospital in Serum or Plasma ID Date Data Source [id number] 05/23/2019 06:27:00 AM [facility] Name Value Range Interpretation Code Description Data Sharon rce(s) Supporting Document(s ) TEARDROP OCC [facility] Hospital ID Date Data Source [id number] 05/23/2019 06:27:00 AM [facility] Hospital Name Value Range Interpretation Code Description Data Sharon rce(s) Supporting Document(s ) OVALOCYTES 1+ [facility] ID Date Data Source [id number] 05/23/2019 06:27:00 AM [facility] Name Value Range Interpretation Description Data Sup porting Code Source(s) Document(s ) Magnesium 2.5 mg/dL [facility] [Mass/volume] Hospital in Serum or Plasma ID Date Data Source [id number] 05/23/2019 06:27:00 AM [facility] Name Value Range Interpretation Code Description Data Sharon rce(s) Supporting Document(s ) TEARDROP [facility] Hospital ID Date Data Source [id number] 05/23/2019 06:27:00 AM [facility] Name Value Range Interpretation Code Description Data Sharon rce(s) Supporting Document(s ) OVALOCYTES 1+ [facility] ID Date Data Source [id number] 05/23/2019 06:27:00 AM [facility] Name Value Range Interpretation Description Data Sup porting Code Source(s) Document(s ) Magnesium 2.5 mg/dL [facility] [Mass/volume] Hospital in Serum or Plasma ID Date Data Source [id number] 05/23/2019 06:27:00 AM [facility] Name Value Range Interpretation Description Data Sup porting Code Source(s) Document(s ) Aspartate 12 U/L [facility] aminotransferase [facility] [Enzymatic Hospital activity/volume] in Serum or Plasma ID Date Data Source [id number] 05/23/2019 06:27:00 AM [facility] Name Value Range Interpretation Description Data Sup porting Code Source(s) Document(s ) Alanine 8 U/L [facility] aminotransferase Hospital [Enzymatic activity/volume] in Serum or Plasma ID Date Data Source [id number] 05/23/2019 06:27:00 AM [facility] Name Value Range Interpretation Description Data Sup porting Code Source(s) Document(s ) Alkaline 113 U/L [facility] phosphatase Hospital [Enzymatic activity/volume ] in Serum or Plasma ID Date Data Source [id number] 05/23/2019 06:27:00 AM [facility] Name Value Range Interpretation Description Data Sup porting Code Source(s) Document(s ) Bilirubin.t 0.2 mg/dL [facility] [Mass/volum e] in Serum or Plasma ID Date Data Source [id number] 05/23/2019 06:27:00 AM [facility] Name Value Range Interpretation Code Description Data Sharon rce(s) Supporting Document(s ) [facility] in Serum or Plasma ID Date Data Source [id number] 05/23/2019 06:27:00 AM [facility] Value Range Interpretation Description Data Sup porting Code Source(s) Document(s ) Albumin 3.1 g/dL [facility] [Mass/volume Hospital ] in Serum or Plasma ID Date Data Source [id number] 05/23/2019 06:27:00 AM [facility] Name Value Range Interpretation Description Data Sup porting Code Source(s) Document(s ) Protein 5.5 g/dL [facility] [Mass/volume Hospital ] in Serum or Plasma ID Date Data Source [id number] 05/23/2019 06:27:00 AM [facility] Name Value Range Interpretation Description Data Sup porting Code Source(s) Document(s ) Calcium 7.3 mg/dL [facility] [Mass/volume Hospital ] in Serum or Plasma ID Date Data Source [id number] 05/23/2019 06:27:00 AM [facility] Value Range Interpretation Code Description Data Sharon rce(s) Supporting Document(s ) Urea 5.3 [facility] nitrogen/Cre Hospital atinine [Mass Ratio] in Serum or Plasma ID Date Data Source [id number] 05/23/2019 06:27:00 AM [facility] Name Value Range Interpretation Description Data Sup porting Code Source(s) Document(s ) Creatinine 3.8 mg/dL [facility] [Mass/volume] Hospital in Serum or Plasma ID Date Data Source [id number] 05/23/2019 06:27:00 AM [facility] Name Value Range Interpretation Description Data Sup porting Code Source(s) Document(s ) Urea 20 mg/dL [facility] nitrogen [facility] [Mass/volume ] in Serum or Plasma ID Date Data Source [id number] 05/23/2019 06:27:00 AM [facility] Name Value Range Interpretation Code Description Data Sharon rce(s) Supporting Document(s ) Anion gap in 10 [facility] Serum or [facility] Plasma ID Date Data Source [id number] 05/23/2019 06:27:00 AM [facility] Name Value Range Interpretation Description Data Sup porting Code Source(s) Document(s ) Carbon 32 mmol/L [facility] dioxide, Hospital total [Moles/volu me] in Serum or Plasma ID Date Data Source [id number] 05/23/2019 06:27:00 AM EST [facility] Name Value Range Interpretation Description Data Sup porting Code Source(s) Document(s ) Chloride 99 mmol/L [facility] [Moles/volum Hospital e] in Serum or Plasma ID Date Data Source [id number] 05/23/2019 06:27:00 AM EST [facility] Name Value Range Interpretation Description Data Sup porting Code Source(s) Document(s ) Potassium 3.8 [facility] [Moles/volume mmol/L Hospital ] in Serum or Plasma ID Date Data Source [id number] 05/23/2019 06:27:00 AM EST [facility] Name Value Range Interpretation Description Data Sup porting Code Source(s) Document(s ) Sodium 137 mmol/L [facility] [Moles/volu Hospital me] in Serum or Plasma ID Date Data Source [id number] 05/23/2019 06:27:00 AM EST [facility] Name Value Range Interpretation Description Data Sup porting Code Source(s) Document(s ) Glucose 77 mg/dL [facility] [Mass/volume Hospital ] in Serum or Plasma ID Date Data Source [id number] 05/23/2019 06:27:00 AM EST [facility] Name Value Range Interpretation Code Description Data Supporting Source(s) Document(s ) NUCLEATED RBCS 0.0 % [facility] (AUTO Hospital DIFF%)DIS ID Date Data Source [id number] 05/23/2019 06:27:00 AM EST [facility] Name Value Range Interpretation Description Data Sup porting Code Source(s) Document(s ) Differential MANUAL [facility] cell count [facility] method - Blood ID Date Data Source [id number] 05/23/2019 06:27:00 AM EST [facility] Name Value Range Interpretation Code Description Data Sharon rce(s) Supporting Document(s ) Cells 100 [facility] Total [#] in Blood ID Date Data Source [id number] 05/23/2019 06:27:00 AM EST [facility] Name Value Range Interpretation Code Description Data Supporting Source(s) Document(s ) PLATELET NORMAL [facility] COMMENT [facility] ID Date Data Source [id number] 05/23/2019 06:27:00 AM EST [facility] Value Range Interpretation Code Description Data Sharon rce(s) Supporting Document(s ) TEARDROP OCC [facility] CELLS [facility] ID Date Data Source [id number] 05/23/2019 06:27:00 AM EST [facility] Name Value Range Interpretation Code Description Data Sharon rce(s) Supporting Document(s ) OVALOCYTES 1+ [facility] ID Date Data Source [id number] 05/23/2019 06:27:00 AM EST [facility] Value Range Interpretation Code Description Data Supporting Source(s) Document(s ) POLYCHROMASIA 1+ [facility] ID Date Data Source [id number] 05/23/2019 06:27:00 AM EST [facility] Value Range Interpretation Code Description Data Sharon rce(s) Supporting Document(s ) MACROCYTOSIS 1+ [facility] ID Date Data Source [id number] 05/23/2019 06:27:00 AM EST [facility] Value Range Interpretation Description Data Sup porting Code Source(s) Document(s ) Eosinophils 0.23 [facility] [#/volume] in 10*3/uL Hospital Blood by Manual count ID Date Data Source [id number] 05/23/2019 06:27:00 AM EST [facility] Name Value Range Interpretation Description Data Sup porting Code Source(s) Document(s ) Monocytes 0.35 [facility] [#/volume] in 10*3/uL Hospital Blood by Manual count ID Date Data Source [id number] 05/23/2019 06:27:00 AM EST [facility] Name Value Range Interpretation Description Data Sup porting Code Source(s) Document(s ) Lymphocytes 0.82 [facility] [#/volume] in 10*3/uL Hospital Blood by Manual count ID Date Data Source [id number] 05/23/2019 06:27:00 AM [facility] Name Value Range Interpretation Description Data Sup porting Code Source(s) Document(s ) Neutrophils 2.50 [facility] [#/volume] in 10*3/uL Hospital Blood by Manual count ID Date Data Source [id number] 05/23/2019 06:27:00 AM [facility] Name Value Range Interpretation Description Data Sup porting Code Source(s) Document(s ) Eosinophils/100 6 % [facility] leukocytes in [facility] Blood by Manual count ID Date Data Source [id number] 05/23/2019 06:27:00 AM [facility] Name Value Range Interpretation Description Data Sup porting Code Source(s) Document(s ) Monocytes/100 9 % [facility] leukocytes in [facility] Blood by Manual count ID Date Data Source [id number] 05/23/2019 06:27:00 AM [facility] Name Value Range Interpretation Description Data Sup porting Code Source(s) Document(s ) Lymphocytes/100 21 % [facility] leukocytes in [facility] Blood by Manual count ID Date Data Source [id number] 05/23/2019 06:27:00 AM [facility] Value Range Interpretation Description Data Sup porting Code Source(s) Document(s ) Neutrophils/100 64 % [facility] leukocytes in [facility] Blood by Manual count ID Date Data Source [id number] 05/23/2019 06:27:00 AM [facility] Value Range Interpretation Description Data Sup porting Code Source(s) Document(s ) Platelet mean 11.5 fL [facility] volume [facility] [Entitic volume] in Blood by Automated count ID Date Data Source [id number] 05/23/2019 06:27:00 AM [facility] Value Range Interpretation Description Data Sup porting Code Source(s) Document(s ) Platelets 85 [facility] [#/volume] in 10*3/uL [facility] Blood by Automated count ID Date Data Source [id number] 05/23/2019 06:27:00 AM [facility] Value Range Interpretation Description Data Sup porting Code Source(s) Document(s ) Erythrocyte 13.5 % [facility] Hospital width [Ratio] by Automated count ID Date Data Source [id number] 05/23/2019 06:27:00 AM [facility] Value Range Interpretation Description Data Sup porting Code Source(s) Document(s ) Erythrocyte mean 31.5 [facility] corpuscular g/dL Hospital hemoglobin concentration [Mass/volume] by Automated count ID Date Data Source [id number] 05/23/2019 06:27:00 AM [facility] Value Range Interpretation Description Data Sup porting Code Source(s) Document(s ) Erythrocyte 33.3 pg [facility] corpuscular hemoglobin [Entitic mass] by Automated count ID Date Data Source [id number] 05/23/2019 06:27:00 AM [facility] Value Range Interpretation Description Data Sup porting Code Source(s) Document(s ) Erythrocyte 105.7 fL [facility] mean [facility] corpuscular volume [Entitic volume] by Automated count ID Date Data Source [id number] 05/23/2019 06:27:00 AM [facility] Value Range Interpretation Description Data Sup porting Code Source(s) Document(s ) Hematocrit 31.7 % [facility] [Volume Hospital Fraction] of Blood by Automated count ID Date Data Source [id number] 05/23/2019 06:27:00 AM [facility] Value Range Interpretation Description Data Sup porting Code Source(s) Document(s ) Hemoglobin 10.0 g/dL [facility] [Mass/volume] Hospital in Blood ID Date Data Source [id number] 05/23/2019 06:27:00 AM [facility] Value Range Interpretation Description Data Sup porting Code Source(s) Document(s ) Erythrocytes 3.00 [facility] [#/volume] in 10*6/uL Hospital Blood by Automated count ID Date Data Source [id number] 05/23/2019 06:27:00 AM [facility] Value Range Interpretation Description Data Sup porting Code Source(s) Document(s ) Leukocytes 3.9 [facility] [#/volume] in 10*3/uL Hospital Blood by Automated count ID Date Data Source [id number] 05/23/2019 06:27:00 AM [facility] Name Value Range Interpretation Description Data Sup porting Code Source(s) Document(s ) Magnesium 2.5 mg/dL [facility] [Mass/volume] Hospital in Serum or Plasma ID Date Data Source [id number] 05/23/2019 06:27:00 AM [facility] Value Range Interpretation Description Data Sup porting Code Source(s) Document(s ) Aspartate 12 U/L [facility] aminotransferase [facility] [Enzymatic Hospital activity/volume] in Serum or Plasma ID Date Data Source [id number] 05/23/2019 06:27:00 AM [facility] Name Value Range Interpretation Description Data Sup porting Code Source(s) Document(s ) Alanine 8 U/L [facility] aminotransferase [facility] [Enzymatic activity/volume] in Serum or Plasma ID Date Data Source [id number] 05/23/2019 06:27:00 AM [facility] Name Value Range Interpretation Description Data Sup porting Code Source(s) Document(s ) Alkaline 113 U/L [facility] phosphatase [facility] [Enzymatic activity/volume ] in Serum or Plasma ID Date Data Source [id number] 05/23/2019 06:27:00 AM [facility] Value Range Interpretation Description Data Sup porting Code Source(s) Document(s ) Bilirubin.t 0.2 mg/dL [facility] [Mass/volum e] in Serum or Plasma ID Date Data Source [id number] 05/23/2019 06:27:00 AM [facility] Name Value Range Interpretation Code Description Data Sharon rce(s) Supporting Document(s ) Albumin/Glob 1.3 [facility] ulin [Mass Hospital Ratio] in Serum or Plasma ID Date Data Source [id number] 05/23/2019 06:27:00 AM [facility] Name Value Range Interpretation Description Data Sup porting Code Source(s) Document(s ) Albumin 3.1 g/dL [facility] [Mass/volume Hospital ] in Serum or Plasma ID Date Data Source [id number] 05/23/2019 06:27:00 AM [facility] Name Value Range Interpretation Description Data Sup porting Code Source(s) Document(s ) Protein 5.5 g/dL [facility] [Mass/volume Hospital ] in Serum or Plasma ID Date Data Source [id number] 05/23/2019 06:27:00 AM EST [facility] Name Value Range Interpretation Description Data Sup porting Code Source(s) Document(s ) Calcium 7.3 mg/dL [facility] [Mass/volume Hospital ] in Serum or Plasma ID Date Data Source [id number] 05/23/2019 06:27:00 AM EST [facility] Name Value Range Interpretation Code Description Data Sharon rce(s) Supporting Document(s ) Urea 5.3 [facility] nitrogen/Cre Hospital atinine [Mass Ratio] in Serum or Plasma ID Date Data Source [id number] 05/23/2019 06:27:00 AM [facility] Name Value Range Interpretation Description Data Sup porting Code Source(s) Document(s ) Creatinine 3.8 mg/dL [facility] [Mass/volume] [facility] in Serum or Plasma ID Date Data Source [id number] 05/23/2019 06:27:00 AM EST [facility] Name Value Range Interpretation Description Data Sup porting Code Source(s) Document(s ) Urea 20 mg/dL [facility] nitrogen [facility] [Mass/volume ] in Serum or Plasma ID Date Data Source [id number] 05/23/2019 06:27:00 AM EST [facility] Name Value Range Interpretation Code Description Data Sharon rce(s) Supporting Document(s ) Anion gap in 10 [facility] Serum or Hospital Plasma ID Date Data Source [id number] 05/23/2019 06:27:00 AM EST [facility] Name Value Range Interpretation Description Data Sup porting Code Source(s) Document(s ) Carbon 32 mmol/L [facility] dioxide, Hospital total [Moles/volu me] in Serum or Plasma ID Date Data Source [id number] 05/23/2019 06:27:00 AM EST [facility] Name Value Range Interpretation Description Data Sup porting Code Source(s) Document(s ) Chloride 99 mmol/L [facility] [Moles/volum Hospital e] in Serum or Plasma ID Date Data Source [id number] 05/23/2019 06:27:00 AM EST [facility] Name Value Range Interpretation Description Data Sup porting Code Source(s) Document(s ) Potassium 3.8 [facility] [Moles/volume mmol/L Hospital ] in Serum or Plasma ID Date Data Source [id number] 05/23/2019 06:27:00 AM [facility] Hospital Name Value Range Interpretation Description Data Sup porting Code Source(s) Document(s ) Sodium 137 mmol/L [facility] [Moles/volu Hospital me] in Serum or Plasma ID Date Data Source [id number] 05/23/2019 06:27:00 AM [facility] Name Value Range Interpretation Description Data Sup porting Code Source(s) Document(s ) Glucose 77 mg/dL [facility] [Mass/volume Hospital ] in Serum or Plasma ID Date Data Source [id number] 05/23/2019 06:27:00 AM [facility] Value Range Interpretation Code Description Data Supporting Source(s) Document(s ) NUCLEATED RBCS 0.0 % [facility] (AUTO Hospital DIFF%)DIS ID Date Data Source [id number] 05/23/2019 06:27:00 AM [facility] Hospital Name Value Range Interpretation Description Data Sup porting Code Source(s) Document(s ) Differential MANUAL [facility] cell count [facility] method - Blood ID Date Data Source [id number] 05/23/2019 06:27:00 AM [facility] Value Range Interpretation Code Description Data Sharon rce(s) Supporting Document(s ) Cells 100 [facility] Hospital Total [#] in Blood ID Date Data Source [id number] 05/23/2019 06:27:00 AM EST [facility] Name Value Range Interpretation Code Description Data Supporting Source(s) Document(s ) PLATELET NORMAL [facility] COMMENT [facility] ID Date Data Source [id number] 05/23/2019 06:27:00 AM EST [facility] Name Value Range Interpretation Code Description Data Sharon rce(s) Supporting Document(s ) TEARDROP OCC [facility] CELLS [facility] ID Date Data Source [id number] 05/23/2019 06:27:00 AM EST [facility] Value Range Interpretation Code Description Data Sharon rce(s) Supporting Document(s ) OVALOCYTES 1+ [facility] ID Date Data Source [id number] 05/23/2019 06:27:00 AM [facility] Value Range Interpretation Code Description Data Supporting Source(s) Document(s ) POLYCHROMASIA 1+ [facility] ID Date Data Source [id number] 05/23/2019 06:27:00 AM EST [facility] Value Range Interpretation Code Description Data Sharon rce(s) Supporting Document(s ) MACROCYTOSIS 1+ [facility] ID Date Data Source [id number] 05/23/2019 06:27:00 AM [facility] Value Range Interpretation Description Data Sup porting Code Source(s) Document(s ) Eosinophils 0.23 [facility] [#/volume] in 10*3/uL Hospital Blood by Manual count ID Date Data Source [id number] 05/23/2019 06:27:00 AM EST [facility] Value Range Interpretation Description Data Sup porting Code Source(s) Document(s ) Monocytes 0.35 [facility] [#/volume] in 10*3/uL Hospital Blood by Manual count ID Date Data Source [id number] 05/23/2019 06:27:00 AM EST [facility] Name Value Range Interpretation Description Data Sup porting Code Source(s) Document(s ) Lymphocytes 0.82 [facility] [#/volume] in 10*3/uL Hospital Blood by Manual count ID Date Data Source [id number] 05/23/2019 06:27:00 AM EST [facility] Name Value Range Interpretation Description Data Sup porting Code Source(s) Document(s ) Neutrophils 2.50 [facility] [#/volume] in 10*3/uL Hospital Blood by Manual count ID Date Data Source [id number] 05/23/2019 06:27:00 AM EST [facility] Name Value Range Interpretation Description Data Sup porting Code Source(s) Document(s ) Eosinophils/100 6 % [facility] leukocytes in [facility] Blood by Manual count ID Date Data Source [id number] 05/23/2019 06:27:00 AM [facility] Value Range Interpretation Description Data Sup porting Code Source(s) Document(s ) Monocytes/100 9 % [facility] leukocytes in [facility] Blood by Manual count ID Date Data Source [id number] 05/23/2019 06:27:00 AM EST [facility] Name Value Range Interpretation Description Data Sup porting Code Source(s) Document(s ) Lymphocytes/100 21 % [facility] leukocytes in [facility] Blood by Manual count ID Date Data Source [id number] 05/23/2019 06:27:00 AM [facility] Name Value Range Interpretation Description Data Sup porting Code Source(s) Document(s ) Neutrophils/100 64 % [facility] leukocytes in Hospital Blood by Manual count ID Date Data Source [id number] 05/23/2019 06:27:00 AM [facility] Value Range Interpretation Description Data Sup porting Code Source(s) Document(s ) Platelet mean 11.5 fL [facility] volume [facility] [Entitic volume] in Blood by Automated count ID Date Data Source [id number] 05/23/2019 06:27:00 AM [facility] Value Range Interpretation Description Data Sup porting Code Source(s) Document(s ) Platelets 85 [facility] [#/volume] in 10*3/uL Hospital Blood by Automated count ID Date Data Source [id number] 05/23/2019 06:27:00 AM [facility] Value Range Interpretation Description Data Sup porting Code Source(s) Document(s ) [facility] 13[facility] by Automated count ID Date Data Source [id number] 05/23/2019 06:27:00 AM [facility] Value Range Interpretation Description Data Sup porting Code Source(s) Document(s ) Erythrocyte mean 31.5 [facility] corpuscular g/dL Hospital hemoglobin concentration [Mass/volume] by Automated count ID Date Data Source [id number] 05/23/2019 06:27:00 AM [facility] Value Range Interpretation Description Data Sup porting Code Source(s) Document(s ) [facility] by Automated count ID Date Data Source [id number] 05/23/2019 06:27:00 AM [facility] Value Range Interpretation Description Data Sup porting Code Source(s) Document(s ) Erythrocyte 105.7 fL [facility] mean Hospital corpuscular volume [Entitic volume] by Automated count ID Date Data Source [id number] 05/23/2019 06:27:00 AM [facility] Value Range Interpretation Description Data Sup porting Code Source(s) Document(s ) Hematocrit 31.7 % [facility] [Volume Hospital Fraction] of Blood by Automated count ID Date Data Source [id number] 05/23/2019 06:27:00 AM [facility] Value Range Interpretation Description Data Sup porting Code Source(s) Document(s ) Hemoglobin 10.0 g/dL [facility] [Mass/volume[facility] Hospital in Blood ID Date Data Source [id number] 05/23/2019 06:27:00 AM EST [facility] Value Range Interpretation Description Data Sup porting Code Source(s) Document(s ) Erythrocytes 3.00 [facility] [#/volume] in 10*6/uL Hospital Blood by Automated count ID Date Data Source [id number] 05/23/2019 06:27:00 AM [facility] Value Range Interpretation Description Data Sup porting Code Source(s) Document(s ) Leukocytes 3.9 [facility] [#/volume] in 10*3/uL Hospital Blood by Automated count ID Date Data Source [id number] 05/22/2019 06:44:00 PM EDT [facility] Value Range Interpretation Description Data Sup porting Code Source(s) Document(s ) Methicillin MRSA TARGET [facility] resistant DNA DETECTED [facility] aureus (MRSA) DNA [Presence] in Unspecified specimen by Probe and target amplification method Methicillin PATIENT IS White resistant PRESUMED [facility] St[facility] POSITIVE FOR Hospital aureus (MRSA) MRSA DNA [Presence] COLONIZATION in Unspecified specimen by Probe and target amplification method ID Date Data Source [id number] 05/22/2019 06:44:00 PM EDT [facility] Value Range Interpretation Description Data Sup porting Code Source(s) Document(s ) Methicillin PATIENT IS White resistant PRESUMED [facility] POSIT[facility] FOR Hospital aureus (MRSA) MRSA DNA [Presence] COLONIZATION in Unspecified specimen by Probe and target amplification method Methicillin MRSA TARGET [facility] resistant DNA DETECTED [facility] aureus (MRSA) DNA [Presence] in Unspecified specimen by Probe and target amplification method ID Date Data Source [id number] 05/22/2019 06:44:00 PM EDT [facility] Name Value Range Interpretation Description Data Sup porting Code Source(s) Document(s ) Methicillin MRSA TARGET [facility] resistant DNA DETECTED [facility] aureus (MRSA) DNA [Presence] in Unspecified specimen by Probe and target amplification method Methicillin PATIENT IS White resistant PRESUMED [facility] POSITIVE FOR Hospital aureus (MRSA) MRSA DNA [Presence] COLONIZATION in Unspecified specimen by Probe and target amplification method ID Date Data Source [id number] 05/22/2019 06:44:00 PM EDT [facility] Name Value Range Interpretation Description Data Sup porting Code Source(s) Document(s ) Methicillin MRSA TARGET [facility] resistant DNA DETECTED [facility] aureus (MRSA) DNA [Presence] in Unspecified specimen by Probe and target amplification method Methicillin PATIENT IS White resistant PRESUMED [facility] POSITIVE FOR Hospital aureus (MRSA) MRSA DNA [Presence] COLONIZATION in Unspecified specimen by Probe and target amplification method ID Date Data Source [id number] 05/22/2019 12:02:00 PM EDT [facility] TEST PERFORMED BY [facility] [facility] CHEMILUMINESCENCE METHOD. Name Value Range Interpretation Description Data Sup porting Code Source(s) Document(s ) Troponin 0.15 [facility] I.cardiac ng/mL Hospital [Mass/volume ] in Serum or Plasma ID Date Data Source [id number] 05/22/2019 12:02:00 PM EDT [facility] TEST PERFORMED BY [facility] CHEMILUMINESCENCE METHOD. Name Value Range Interpretation Description Data Sup porting Code Source(s) Document(s ) Troponin 0.15 [facility] I.cardiac ng/mL [facility] [Mass/volume ] in Serum or Plasma ID Date Data Source [id number] 05/22/2019 05:47:00 AM EDT [facility] Value Range Interpretation Description Data Sup porting Code Source(s) Document(s ) Immature 0.02 [facility] granulocytes 10*3/uL Hospital [#/volume] in Blood by Automated count ID Date Data Source [id number] 05/22/2019 05:47:00 AM EDT [facility] Name Value Range Interpretation Description Data Sup porting Code Source(s) Document(s ) Basophils 0.03 [facility] [#/volume] in 10*3/uL Hospital Blood by Automated count ID Date Data Source [id number] 05/22/2019 05:47:00 AM EDT [facility] Value Range Interpretation Description Data Sup porting Code Source(s) Document(s ) Eosinophils 0.25 [facility] [#/volume] in 10*3/uL Hospital Blood by Automated count ID Date Data Source [id number] 05/22/2019 05:47:00 AM EDT [facility] Value Range Interpretation Description Data Sup porting Code Source(s) Document(s ) Monocytes 0.52 [facility] [#/volume] in 10*3/uL Hospital Blood by Automated count ID Date Data Source [id number] 05/22/2019 05:47:00 AM EDT [facility] Name Value Range Interpretation Description Data Sup porting Code Source(s) Document(s ) Lymphocytes 0.71 [facility] [#/volume] in 10*3/uL Hospital Blood by Automated count ID Date Data Source [id number] 05/22/2019 05:47:00 AM EDT [facility] Name Value Range Interpretation Description Data Sup porting Code Source(s) Document(s ) Neutrophils 3.72 [facility] [#/volume] in 10*3/uL Hospital Blood by Automated count ID Date Data Source [id number] 05/22/2019 05:47:00 AM EDT [facility] Value Range Interpretation Description Data Sup porting Code Source(s) Document(s ) Nucleated 0.0 % [facility] erythrocytes/10 [facility] 0 leukocytes [Ratio] in Blood by Automated count ID Date Data Source [id number] 05/22/2019 05:47:00 AM EDT [facility] Name Value Range Interpretation Description Data Sup porting Code Source(s) Document(s ) Immature 0.4 % [facility] granulocytes/10 [facility] 0 leukocytes in Blood by Automated count ID Date Data Source [id number] 05/22/2019 05:47:00 AM EDT [facility] Value Range Interpretation Description Data Sup porting Code Source(s) Document(s ) Basophils/100 0.6 % [facility] leukocytes in [facility] Blood by Automated count ID Date Data Source [id number] 05/22/2019 05:47:00 AM EDT [facility] Value Range Interpretation Description Data Sup porting Code Source(s) Document(s ) Eosinophils/100 4.8 % [facility] leukocytes in Hospital Blood by Automated count ID Date Data Source [id number] 05/22/2019 05:47:00 AM EDT [facility] Value Range Interpretation Description Data Sup porting Code Source(s) Document(s ) Monocytes/100 9.9 % [facility] leukocytes in [facility] Blood by Automated count ID Date Data Source [id number] 05/22/2019 05:47:00 AM EDT [facility] Value Range Interpretation Description Data Sup porting Code Source(s) Document(s ) Lymphocytes/10 13.5 % [facility] 0 leukocytes [facility] in Blood by Automated count ID Date Data Source [id number] 05/22/2019 05:47:00 AM EDT [facility] Name Value Range Interpretation Description Data Sup porting Code Source(s) Document(s ) Neutrophils/10 70.8 % [facility] 0 leukocytes [facility] in Blood by Automated count ID Date Data Source [id number] 05/22/2019 05:47:00 AM EDT [facility] Name Value Range Interpretation Description Data Sup porting Code Source(s) Document(s ) Immature 0.02 [facility] granulocytes 10*3/uL Hospital [#/volume] in Blood by Automated count ID Date Data Source [id number] 05/22/2019 05:47:00 AM EDT [facility] Name Value Range Interpretation Description Data Sup porting Code Source(s) Document(s ) Basophils 0.03 [facility] [#/volume] in 10*3/uL Hospital Blood by Automated count ID Date Data Source [id number] 05/22/2019 05:47:00 AM EDT [facility] Value Range Interpretation Description Data Sup porting Code Source(s) Document(s ) Eosinophils 0.25 [facility] [#/volume] in 10*3/uL Hospital Blood by Automated count ID Date Data Source [id number] 05/22/2019 05:47:00 AM EDT [facility] Name Value Range Interpretation Description Data Sup porting Code Source(s) Document(s ) Monocytes 0.52 [facility] [#/volume] in 10*3/uL Hospital Blood by Automated count ID Date Data Source [id number] 05/22/2019 05:47:00 AM EDT [facility] Name Value Range Interpretation Description Data Sup porting Code Source(s) Document(s ) Lymphocytes 0.71 [facility] [#/volume] in 10*3/uL Hospital Blood by Automated count ID Date Data Source [id number] 05/22/2019 05:47:00 AM EDT [facility] Value Range Interpretation Description Data Sup porting Code Source(s) Document(s ) Neutrophils 3.72 [facility] [#/volume] in 10*3/uL [facility] Blood by Automated count ID Date Data Source [id number] 05/22/2019 05:47:00 AM EDT [facility] Value Range Interpretation Description Data Sup porting Code Source(s) Document(s ) Nucleated 0.0 % [facility] erythrocytes/10 [facility] 0 leukocytes [Ratio] in Blood by Automated count ID Date Data Source [id number] 05/22/2019 05:47:00 AM EDT [facility] Value Range Interpretation Description Data Sup porting Code Source(s) Document(s ) Immature 0.4 % [facility] granulocytes/10 [facility] 0 leukocytes in Blood by Automated count ID Date Data Source [id number] 05/22/2019 05:47:00 AM EDT [facility] Value Range Interpretation Description Data Sup porting Code Source(s) Document(s ) Basophils/100 0.6 % [facility] leukocytes in [facility] Blood by Automated count ID Date Data Source [id number] 05/22/2019 05:47:00 AM EDT [facility] Value Range Interpretation Description Data Sup porting Code Source(s) Document(s ) Eosinophils/100 4.8 % [facility] leukocytes in [facility] Blood by Automated count ID Date Data Source [id number] 05/22/2019 05:47:00 AM EDT [facility] Value Range Interpretation Description Data Sup porting Code Source(s) Document(s ) Monocytes/100 9.9 % [facility] leukocytes in [facility] Blood by Automated count ID Date Data Source [id number] [facility] Interpretation Description Data Sup porting Code Source(s) Document(s ) Lymphocytes/10 13.5 % [facility] 0 leukocytes Hospital in Blood by Automated count ID Date Data Source [id number] 05/22/2019 05:47:00 AM EDT [facility] Name Value Range Interpretation Description Data Sup porting Code Source(s) Document(s ) Neutrophils/10 70.8 % [facility] 0 leukocytes Hospital in Blood by Automated count ID Date Data Source [id number] 05/22/2019 05:47:00 AM [facility] THERAPEUTIC RANGES:UNFRACTIONATED HEPARI N THERAPY: 60-90 SECONDSARGATROBAN THERAPY: 49-99 SECONDS Name Value Range Interpretation Description Data Sup porting Code Source(s) Document(s ) aPTT in 34.3 s [facility] Platelet poor [facility] plasma by Coagulation assay ID Date Data Source [id number] 05/22/2019 05:47:00 AM [facility] THERAPEUTIC RANGE FOR STANDARD ORALANTIC OAGULANT THERAPY: 2.0-3.0THERAPEUTIC RANGE FOR HIGH DOSE ORALANTICOAGULANT THERAPY (MECHANICAL HEARTVALVE REPLACEMENT): 2.5-3.5 Name Value Range Interpretation Description Data Sup porting Code Source(s) Document(s ) INR in Platelet 1.0 [facility] poor plasma by Hospital Coagulation assay ID Date Data Source [id number] 05/22/2019 05:47:00 AM [facility] Name Value Range Interpretation Description Data Sup porting Code Source(s) Document(s ) PT panel - 11.4 s [facility] Platelet poor [facility] plasma by Coagulation assay ID Date Data Source [id number] 05/22/2019 05:47:00 AM [facility] Name Value Range Interpretation Description Data Sup porting Code Source(s) Document(s ) Immature 0.02 [facility] granulocytes 10*3/uL Hospital [#/volume] in Blood by Automated count ID Date Data Source [id number] 05/22/2019 05:47:00 AM EDT [facility] Value Range Interpretation Description Data Sup porting Code Source(s) Document(s ) Basophils 0.03 [facility] [#/volume] in 10*3/uL Hospital Blood by Automated count ID Date Data Source [id number] 05/22/2019 05:47:00 AM EDT [facility] Value Range Interpretation Description Data Sup porting Code Source(s) Document(s ) Eosinophils 0.25 [facility] [#/volume] in 10*3/uL Hospital Blood by Automated count ID Date Data Source [id number] 05/22/2019 05:47:00 AM EDT [facility] Value Range Interpretation Description Data Sup porting Code Source(s) Document(s ) Monocytes 0.52 [facility] [#/volume] in 10*3/uL Hospital Blood by Automated count ID Date Data Source [id number] 05/22/2019 05:47:00 AM EDT [facility] Value Range Interpretation Description Data Sup porting Code Source(s) Document(s ) Lymphocytes 0.71 [facility] [#/volume] in 10*3/uL Hospital Blood by Automated count ID Date Data Source [id number] 05/22/2019 05:47:00 AM EDT [facility] Value Range Interpretation Description Data Sup porting Code Source(s) Document(s ) Neutrophils 3.72 [facility] [#/volume] in 10*3/uL Hospital Blood by Automated count ID Date Data Source [id number] 05/22/2019 05:47:00 AM EDT [facility] Name Value Range Interpretation Description Data Sup porting Code Source(s) Document(s ) Nucleated 0.0 % [facility] erythrocytes/10 [facility] 0 leukocytes [Ratio] in Blood by Automated count ID Date Data Source [id number] 05/22/2019 05:47:00 AM EDT [facility] Name Value Range Interpretation Description Data Sup porting Code Source(s) Document(s ) Immature 0.4 % [facility] granulocytes/10 [facility] 0 leukocytes in Blood by Automated count ID Date Data Source [id number] 05/22/2019 05:47:00 AM EDT [facility] Name Value Range Interpretation Description Data Sup porting Code Source(s) Document(s ) Basophils/100 0.6 % [facility] leukocytes in [facility] Blood by Automated count ID Date Data Source [id number] 05/22/2019 05:47:00 AM EDT [facility] Value Range Interpretation Description Data Sup porting Code Source(s) Document(s ) Eosinophils/100 4.8 % [facility] leukocytes in [facility] Blood by Automated count ID Date Data Source [id number] 05/22/2019 05:47:00 AM EDT [facility] Value Range Interpretation Description Data Sup porting Code Source(s) Document(s ) Monocytes/100 9.9 % [facility] leukocytes in [facility] Blood by Automated count ID Date Data Source [id number] 05/22/2019 05:47:00 AM EDT [facility] Name Value Range Interpretation Description Data Sup porting Code Source(s) Document(s ) Lymphocytes/10 13.5 % [facility] 0 leukocytes Hospital in Blood by Automated count ID Date Data Source [id number] 05/22/2019 05:47:00 AM EDT [facility] Value Range Interpretation Description Data Sup porting Code Source(s) Document(s ) Neutrophils/10 70.8 % [facility] 0 leukocytes Hospital in Blood by Automated count ID Date Data Source [id number] 05/22/2019 05:47:00 AM [facility] THERAPEUTIC RANGES:UNFRACTIONATED HEPARI N THERAPY: 60-90 SECONDSARGATROBAN THERAPY: 49-99 SECONDS Name Value Range Interpretation Description Data Sup porting Code Source(s) Document(s ) aPTT in 34.3 s [facility] Platelet poor [facility] plasma by Coagulation assay ID Date Data Source [id number] 05/22/2019 05:47:00 AM [facility] THERAPEUTIC RANGE FOR STANDARD ORALANTIC OAGULANT THERAPY: 2.0-3.0THERAPEUTIC RANGE FOR HIGH DOSE ORALANTICOAGULANT THERAPY (MECHANICAL HEARTVALVE REPLACEMENT): 2.5-3.5 Name Value Range Interpretation Description Data Sup porting Code Source(s) Document(s ) INR in Platelet 1.0 [facility] poor plasma by Hospital Coagulation assay ID Date Data Source [id number] 05/22[facility]2019 [facility] Value Range Interpretation Description Data Sup porting Code Source(s) Document(s ) PT panel - 11.4 s [facility] Platelet poor [facility] plasma by Coagulation assay ID Date Data Source [id number] 05/22/2019 [facility]:47[facility] Value Range Interpretation Description Data Sup porting Code Source(s) Document(s ) Immature 0.02 [facility] granulocytes 10*3/uL Hospital [#/volume] in Blood by Automated count ID Date Data Source [id number] 05/22/2019 05:47:00 AM [facility] Name Value Range Interpretation Description Data Sup porting Code Source(s) Document(s ) Basophils 0.03 [facility] [#/volume] in 10*3/uL Hospital Blood by Automated count ID Date Data Source [id number] 05/22/2019 05:47:00 AM EDT [facility] Name Value Range Interpretation Description Data Sup porting Code Source(s) Document(s ) Eosinophils 0.25 [facility] [#/volume] in 10*3/uL Hospital Blood by Automated count ID Date Data Source [id number] 05/22/2019 05:47:00 AM EDT [facility] Name Value Range Interpretation Description Data Sup porting Code Source(s) Document(s ) Monocytes 0.52 [facility] [#/volume] in 10*3/uL Hospital Blood by Automated count ID Date Data Source [id number] 05/22/2019 05:47:00 AM EDT [facility] Value Range Interpretation Description Data Sup porting Code Source(s) Document(s ) Lymphocytes 0.71 [facility] [#/volume] in 10*3/uL Hospital Blood by Automated count ID Date Data Source [id number] 05/22/2019 05:47:00 AM EDT [facility] Value Range Interpretation Description Data Sup porting Code Source(s) Document(s ) Neutrophils 3.72 [facility] [#/volume] in 10*3/uL Hospital Blood by Automated count ID Date Data Source [id number] 05/22/2019 05:47:00 AM EDT [facility] Name Value Range Interpretation Description Data Sup porting Code Source(s) Document(s ) Nucleated 0.0 % [facility] erythrocytes/10 [facility] 0 leukocytes [Ratio] in Blood by Automated count ID Date Data Source [id number] 05/[facility] Description Data Sup porting Code Source(s) Document(s ) Immature 0.4 % [facility] granulocytes/10 [facility] 0 leukocytes in Blood by Automated count ID Date Data Source [id number] 05/22/2019 05:47:00 AM EDT [facility] Value Range Interpretation Description Data Sup porting Code Source(s) Document(s ) Basophils/100 0.6 % [facility] leukocytes in [facility] Blood by Automated count ID Date Data Source [id number] 05/22/2019 05:47:00 AM EDT [facility] Value Range Interpretation Description Data Sup porting Code Source(s) Document(s ) Eosinophils/100 4.8 % [facility] leukocytes in [facility] Blood by Automated count ID Date Data Source [id number] 05/22/2019 05:47:00 AM EDT [facility] Value Range Interpretation Description Data Sup porting Code Source(s) Document(s ) Monocytes/100 9.9 % [facility] leukocytes in [facility] Blood by Automated count ID Date Data Source [id number] 05/22/2019 05:47:00 AM EDT [facility] Name Value Range Interpretation Description Data Sup porting Code Source(s) Document(s ) Lymphocytes/10 13.5 % [facility] 0 leukocytes Hospital in Blood by Automated count ID Date Data Source [id number] 05/22/2019 05:47:00 AM EDT [facility] Value Range Interpretation Description Data Sup porting Code Source(s) Document(s ) Neutrophils/10 70.8 % [facility] 0 leukocytes Hospital in Blood by Automated count ID Date Data Source [id number] 05/19/2019 06:07:00 PM EDT [facility] Value Range Interpretation Description Data Sup porting Code Source(s) Document(s ) Platelets DECREASED [facility] [#/volume] in Hospital Blood by Estimate ID Date Data Source [id number] 05/19/2019 06:07:00 PM EDT [facility] Name Value Range Interpretation Description Data Sup porting Code Source(s) Document(s ) Platelets DECREASED [facility] [#/volume] in Hospital Blood by Estimate ID Date Data Source [id number] 05/19/2019 06:07:00 PM EDT [facility] Value Range Interpretation Description Data Sup porting Code Source(s) Document(s ) Platelets DECREASED [facility] [#/volume] in Hospital Blood by Estimate ID Date Data Source [id number] 05/19/2019 06:07:00 PM EDT [facility] Value Range Interpretation Code Description Data Sharon rce(s) Supporting Document(s ) ANISOCYTOSIS 1+ [facility] ID Date Data Source [id number] 05/19/2019 06:07:00 PM EDT [facility] Value Range Interpretation Description Data Sup porting Code Source(s) Document(s ) Basophils 0.04 [facility] [#/volume] in 10*3/uL Hospital Blood by Manual count ID Date Data Source [id number] 05/19/2019 06:07:00 PM EDT [facility] Value Range Interpretation Description Data Sup porting Code Source(s) Document(s ) Basophils/100 1 % [facility] leukocytes in Hospital Blood by Manual count ID Date Data Source [id number] 05/19/2019 06:07:00 PM EDT [facility] Value Range Interpretation Description Data Sup porting Code Source(s) Document(s ) Platelets DECREASED [facility] [#/volume] in Hospital Blood by Estimate ID Date Data Source [id number] 05/19/2019 06:07:00 PM EDT [facility] Value Range Interpretation Code Description Data [facility] rce(s) Supporting Document(s ) ANISOCYTOSIS 1+ [facility] ID Date Data Source [id number] 05/19/2019 [facility] Value Range Interpretation Description Data Sup porting Code Source(s) Document(s ) Basophils 0.04 [facility] [#/volume] in 10*3/uL Hospital Blood by Manual count ID Date Data Source [id number] 05/19/2019 06:07:00 PM [facility] Name Value Range Interpretation Description Data Sup porting Code Source(s) Document(s ) Basophils/100 1 % [facility] leukocytes in Hospital Blood by Manual count ID Date Data Source [id number] 05/19/2019 04:59:00 PM [facility] [employer] Operator:LEODAN MONAE Name Value Range Interpretation Description Data Sup porting Code Source(s) Document(s ) Glucose 72 mg/dL [facility] [[facility] Hospital in Capillary blood by Glucometer ID Date Data Source [id number] 05/19/2019 04:59:00 PM [facility] [employer] Operator:LEODAN MONAE Name Value Range Interpretation Description Data Sup porting Code Source(s) Document(s ) Glucose 72 mg/dL [facility] [Mass/volume] [facility] in Capillary blood by Glucometer ID Date Data Source [id number] 04/20/2019 07:01:00 AM [facility] Value Range Interpretation Code Description Data Supporting Source(s) Document(s ) HEP B SURF 15.68 [facility] AB QUANT m[IU]/mL Hospital ID Date Data Source [id number] 04/20/2019 07:01:00 AM [facility] Value Range Interpretation Description Data Sup porting Code Source(s) Document(s ) Sodium 141 mmol/L [facility] [place] in Serum or Plasma ID Date Data Source [id number] 04/20/2019 07:01:00 AM EDT [facility] Name Value Range Interpretation Description Data Sup porting Code Source(s) Document(s ) Glucose 74 mg/dL [facility] [[facility] ] in Serum or Plasma ID Date Data Source [id number] 04/20/2019 07:01:00 AM EDT [facility] Value Range Interpretation Code Description Data Supporting Source(s) Document(s ) NUCLEATED RBCS 0.0 % [facility] (AUTO Hospital DIFF%)DIS ID Date Data Source [id number] 04/20/[facility] Description Data Sup porting Code Source(s) Document(s ) Differential AUTOMATED [facility] cell count Hospital method - Blood ID Date Data Source [id number] 04/20/2019 [facility] Interpretation Description Data Sup porting Code Source(s) Document(s ) Immature 0.01 [facility] granulocytes 10*3/uL Hospital [#/volume] in Blood by Automated count ID Date Data Source [id number] 04/20/2019 [facility] Interpretation Description Data Sup porting Code Source(s) Document(s ) Basophils 0.03 [facility] [#/volume] in 10*3/uL Hospital Blood by Automated count ID Date Data Source [id number] 04/20/2019 07:01:00 AM EDT [facility] Name Value Range Interpretation Description Data Sup porting Code Source(s) Document(s ) Eosinophils 0.32 [facility] [#/volume] in 10*3/uL Hospital Blood by Automated count ID Date Data Source [id number] 04/20/2019 07:01:00 AM EDT [facility] Name Value Range Interpretation Description Data Sup porting Code Source(s) Document(s ) Monocytes 0.41 [facility] [#/volume] in 10*3/uL Hospital Blood by Automated count ID Date Data Source [id number] 04/20/2019 07:01:00 AM EDT [facility] Value Range Interpretation Description Data Sup porting Code Source(s) Document(s ) Lymphocytes 1.14 [facility] [#/volume] in 10*3/uL Hospital Blood by Automated count ID Date Data Source [id number] 04/20/2019 07:01:00 AM EDT [facility] Value Range Interpretation Description Data Sup porting Code Source(s) Document(s ) Neutrophils 2.30 [facility] [#/volume] in 10*3/uL [facility] Blood by Automated count ID Date Data Source [id number] 04/20/2019 07:01:00 AM EDT [facility] Value Range Interpretation Description Data Sup porting Code Source(s) Document(s ) Nucleated 0.0 % [facility] erythrocytes/10 [facility] 0 leukocytes [Ratio] in Blood by Automated count ID Date Data Source [id number] 04/20/2019 07:01:00 AM EDT [facility] Value Range Interpretation Description Data Sup porting Code Source(s) Document(s ) Immature 0.2 % [facility] granulocytes/10 Hospital 0 leukocytes in Blood by Automated count ID Date Data Source [id number] 04/20/2019 07:01:00 AM EDT [facility] Value Range Interpretation Description Data Sup porting Code Source(s) Document(s ) Basophils/100 0.7 % [facility] leukocytes in Hospital Blood by Automated count ID Date Data Source [id number] 04/20/2019 07:01:00 AM EDT [facility] Value Range Interpretation Description Data Sup porting Code Source(s) Document(s ) Eosinophils/100 7.6 % [facility] leukocytes in Hospital Blood by Automated count ID Date Data Source [id number] 04/20/2019 07:01:00 AM EDT [facility] Name Value Range Interpretation Description Data Sup porting Code Source(s) Document(s ) Monocytes/100 9.7 % [facility] leukocytes in Hospital Blood by Automated count ID Date Data Source [id number] 04/20/2019 07:01:00 AM EDT [facility] Name Value Range Interpretation Description Data Sup porting Code Source(s) Document(s ) Lymphocytes/10 27.1 % [facility] 0 leukocytes Hospital in Blood by Automated count ID Date Data Source [id number] 04/20/2019 07:01:00 AM EDT [facility] Name Value Range Interpretation Description Data Sup porting Code Source(s) Document(s ) Neutrophils/10 54.7 % [facility] 0 leukocytes Hospital in Blood by Automated count ID Date Data Source [id number] 04/20/2019 07:01:00 AM EDT [facility] Name Value Range Interpretation Description Data Sup porting Code Source(s) Document(s ) Platelet mean 11.2 fL [facility] volume [facility] [Entitic volume] in Blood by Automated count ID Date Data Source [id number] 04/20/2019 07:01:00 AM EDT [facility] Name Value Range Interpretation Description Data Sup porting Code Source(s) Document(s ) Platelets 78 [facility] [#/volume] in 10*3/uL Hospital Blood by Automated count ID Date Data Source [id number] 04/20/2019 07:01:00 AM EDT [facility] Value Range Interpretation Description Data Sup porting Code Source(s) Document(s ) Erythrocyte 15.3 % [facility] distribution Hospital width [Ratio] by Automated count ID Date Data Source [id number] 04/20/2019 07:01:00 AM [facility] Value Range Interpretation Description Data Sup porting Code Source(s) Document(s ) Erythrocyte mean 29.6 [facility] corpuscular g/dL Hospital hemoglobin concentration [Mass/volume] by Automated count ID Date Data Source [id number] 04/20/2019 07:01:00 AM [facility] Value Range Interpretation Description Data Sup porting Code Source(s) Document(s ) Erythrocyte 33.3 pg [facility] corpuscular hemoglobin [Entitic mass] by Automated count ID Date Data Source [id number] 04/20/2019 07:01:00 AM [facility] Value Range Interpretation Description Data Sup porting Code Source(s) Document(s ) Erythrocyte 112.8 fL [facility] corpuscular volume [Entitic volume] by Automated count ID Date Data Source [id number] 04/20/2019 07:01:00 AM [facility] Value Range Interpretation Description Data Sup porting Code Source(s) Document(s ) Hematocrit 31.8 % [facility] [Volume [facility] Fraction] of Blood by Automated count ID Date Data Source [id number] 04/20/2019 07:01:00 AM [facility] Value Range Interpretation Description Data Sup porting Code Source(s) Document(s ) Hemoglobin 9.4 g/dL [facility] [[facility] in Blood ID Date Data Source [id number] 04/20/2019 07:01:00 AM [facility] Value Range Interpretation Description Data Sup porting Code Source(s) Document(s ) Erythrocytes 2.82 [facility] [#/volume] in 10*6/uL Hospital Blood by Automated count ID Date Data Source [id number] 04/20/2019 07:01:00 AM [facility] Name Value Range Interpretation Description Data Sup porting Code Source(s) Document(s ) Leukocytes 4.2 [facility] [#/volume] in 10*3/uL Hospital Blood by Automated count ID Date Data Source [id number] 04/20/2019 07:01:00 AM [facility] Name Value Range Interpretation Code Description Data Supporting Source(s) Document(s ) HEP B SURF 15.68 [facility] AB QUANT m[IU]/mL Hospital ID Date Data Source [id number] 04/20/2019 07:01:00 AM [facility] Name Value Range Interpretation Description Data Sup porting Code Source(s) Document(s ) Hepatitis B NON-REACT [facility] virus surface [facility] Ag [Presence] in Serum ID Date Data Source [id number] 04/20/2019 07:01:00 AM [facility] Name Value Range Interpretation Description Data Sup porting Code Source(s) Document(s ) Folate 10.0 ng/mL [facility] [Mass[facility]volum [facility] e] in Serum or Plasma ID Date Data Source [id number] 04/20/2019 07:01:00 AM [facility] Name Value Range Interpretation Description Data Sup porting Code Source(s) Document(s ) Cobalamin 580 pg/mL [facility] (Vitamin B12) Hospital [Mass/volume] in Serum or Plasma ID Date Data Source [id number] 04/20/2019 07:01:00 AM [facility] TEST PERFORMED BY [employer] [facility] CHEMILUMINESCENCE METHOD. Name Value Range Interpretation Description Data Sup porting Code Source(s) Document(s ) Troponin 0.05 [facility] I.cardiac ng/mL Hospital [Mass/volume ] in Serum or Plasma ID Date Data Source [id number] 04/20/2019 07:01:00 AM [facility] Name Value Range Interpretation Description Data Sup porting Code Source(s) Document(s ) Phosphate 8.8 mg/dL [facility] [[facility] in Serum or Plasma ID Date Data Source [id number] 04/20/2019 07:01:00 AM [facility] Name Value Range Interpretation Description Data Sup porting Code Source(s) Document(s ) Magnesium 2.4 mg/dL [facility] [[facility] in Serum or Plasma ID Date Data Source [id number] 04/20/2019 07:01:00 AM [facility] Name Value Range Interpretation Description Data Sup porting Code Source(s) Document(s ) Calcium 7.5 mg/dL [facility] [[facility] ] in Serum or Plasma ID Date Data Source [id number] 04/20/2019 07:01:00 AM [facility] Name Value Range Interpretation Code Description Data Sharon rce(s) Supporting Document(s ) Urea 6.4 [facility] nitrogen/Cre Hospital atinine [Mass Ratio] in Serum or Plasma ID Date Data Source [id number] 04/20/2019 07:01:00 AM [facility] NOTIFICATION AND READ BACK OF CRITICAL R ESULTS TO NATALIE TIWARI RN W4F AT 0827 ON 04/20/19 BY Janel Barrera.REPORTED CRITI MARCI VALUES SHOULD BE INTERPRETED WITHIN CLINICAL CONTEXT. Name Value Range Interpretation Description Data Sup porting Code Source(s) Document(s ) Creatinine 6.9 mg/dL [facility] in Serum or Plasma ID Date Data Source [id number] 04/20/2019 07:01:00 AM EDT [facility] Name Value Range Interpretation Description Data Sup porting Code Source(s) Document(s ) Urea 44 mg/dL [facility] nitrogen [facility] [Mass/volume ] in Serum or Plasma ID Date Data Source [id number] 04/20/2019 07:01:00 AM EDT [facility] Name Value Range Interpretation Code Description Data Sharon rce(s) Supporting Document(s ) Anion gap in 19 [facility] Serum or [facility] Plasma ID Date Data Source [id number] 04/20/2019 07:01:00 AM EDT [facility] Name Value Range Interpretation Description Data Sup porting Code Source(s) Document(s ) Carbon 24 mmol/L [facility] dioxide, Hospital total [Moles/volu me] in Serum or Plasma ID Date Data Source [id number] 04/20/2019 07:01:00 AM EDT [facility] Name Value Range Interpretation Description Data Sup porting Code Source(s) Document(s ) Chloride 103 [facility] [Moles/volum mmol/L Hospital e] in Serum or Plasma ID Date Data Source [id number] 04/20/2019 07:01:00 AM EDT [facility] Name Value Range Interpretation Description Data Sup porting Code Source(s) Document(s ) Potassium 4.9 [facility] [Moles/volume mmol/L Hospital ] in Serum or Plasma ID Date Data Source [id number] 04/20/2019 07:01:00 AM EDT [facility] Name Value Range Interpretation Description Data Sup porting Code Source(s) Document(s ) Sodium 141 mmol/L [facility] [Moles/volu Hospital me] in Serum or Plasma ID Date Data Source [id number] 04/20/2019 07:01:00 AM EDT [facility] Name Value Range Interpretation Description Data Sup porting Code Source(s) Document(s ) Glucose 74 mg/dL [facility] [[facility] ] in Serum or Plasma ID Date Data Source [id number] 04/20/2019 07:01:00 AM EDT [facility] Name Value Range Interpretation Code Description Data Supporting Source(s) Document(s ) NUCLEATED RBCS 0.0 % [facility] (AUTO Hospital DIFF%)DIS ID Date Data Source [id number] 04/20/2019 07:01:00 AM EDT [facility] Value Range Interpretation Description Data Sup porting Code Source(s) Document(s ) Differential AUTOMATED [facility] cell count [facility] method - Blood ID Date Data Source [id number] 04/20/2019 07:01:00 AM EDT [facility] Value Range Interpretation Description Data Sup porting Code Source(s) Document(s ) Immature 0.01 [facility] granulocytes 10*3/uL Hospital [#/volume] in Blood by Automated count ID Date Data Source [id number] 04/20/2019 07:01:00 AM EDT [facility] Value Range Interpretation Description Data Sup porting Code Source(s) Document(s ) Basophils 0.03 [facility] [#/volume] in 10*3/uL Hospital Blood by Automated count ID Date Data Source [id number] 04/20/2019 07:01:00 AM EDT [facility] Name Value Range Interpretation Description Data Sup porting Code Source(s) Document(s ) Eosinophils 0.32 [facility] [#/volume] in 10*3/uL Hospital Blood by Automated count ID Date Data Source [id number] 04/20/2019 07:01:00 AM EDT [facility] Name Value Range Interpretation Description Data Sup porting Code Source(s) Document(s ) Monocytes 0.41 [facility] [#/volume] in 10*3/uL Hospital Blood by Automated count ID Date Data Source [id number] 04/20/2019 07:01:00 AM EDT [facility] Name Value Range Interpretation Description Data Sup porting Code Source(s) Document(s ) Lymphocytes 1.14 [facility] [#/volume] in 10*3/uL Hospital Blood by Automated count ID Date Data Source [id number] 04/20/2019 07:01:00 AM EDT [facility] Value Range Interpretation Description Data Sup porting Code Source(s) Document(s ) Neutrophils 2.30 [facility] [#/volume] in 10*3/uL Hospital Blood by Automated count ID Date Data Source [id number] 04/20/2019 07:01:00 AM EDT [facility] Value Range Interpretation Description Data Sup porting Code Source(s) Document(s ) Nucleated 0.0 % [facility] erythrocytes/10 Hospital 0 leukocytes [Ratio] in Blood by Automated count ID Date Data Source [id number] 04/20/2019 07:01:00 AM EDT [facility] Value Range Interpretation Description Data Sup porting Code Source(s) Document(s ) Immature 0.2 % [facility] granulocytes/10 Hospital 0 leukocytes in Blood by Automated count ID Date Data Source [id number] 04/20/2019 07:01:00 AM EDT [facility] Value Range Interpretation Description Data Sup porting Code Source(s) Document(s ) Basophils/100 0.7 % [facility] leukocytes in Hospital Blood by Automated count ID Date Data Source [id number] 04/20/2019 07:01:00 AM EDT [facility] Value Range Interpretation Description Data Sup porting Code Source(s) Document(s ) Eosinophils/100 7.6 % [facility] leukocytes in Hospital Blood by Automated count ID Date Data Source [id number] 04/20/2019 07:01:00 AM EDT [facility] Name Value Range Interpretation Description Data Sup porting Code Source(s) Document(s ) Monocytes/100 9.7 % [facility] leukocytes in Hospital Blood by Automated count ID Date Data Source [id number] 04/20/2019 07:01:00 AM EDT [facility] Name Value Range Interpretation Description Data Sup porting Code Source(s) Document(s ) Lymphocytes/10 27.1 % [facility] 0 leukocytes Hospital in Blood by Automated count ID Date Data Source [id number] 04/20/2019 07:01:00 AM EDT [facility] Value Range Interpretation Description Data Sup porting Code Source(s) Document(s ) Neutrophils/10 54.7 % [facility] 0 leukocytes Hospital in Blood by Automated count ID Date Data Source [id number] 04/20/2019 07:01:00 AM EDT [facility] Name Value Range Interpretation Description Data Sup porting Code Source(s) Document(s ) Platelet mean 11.2 fL [facility] volume [facility] [Entitic volume] in Blood by Automated count ID Date Data Source [id number] 04/20/2019 07:01:00 AM EDT [facility] Name Value Range Interpretation Description Data Sup porting Code Source(s) Document(s ) Platelets 78 [facility] [#/volume] in 10*3/uL Hospital Blood by Automated count ID Date Data Source [id number] 04/20/2019 07:01:00 AM EDT [facility] Name Value Range Interpretation Description Data Sup porting Code Source(s) Document(s ) Erythrocyte 15.3 % [facility] distribution Hospital width [Ratio] by Automated count ID Date Data Source [id number] 04/20/2019 07:01:00 AM EDT [facility] Name Value Range Interpretation Description Data Sup porting Code Source(s) Document(s ) Erythrocyte mean 29.6 [facility] corpuscular g/dL Hospital hemoglobin concentration [Mass/volume] by Automated count ID Date Data Source [id number] 04/20/2019 07:01:00 AM [facility] Value Range Interpretation Description Data Sup porting Code Source(s) Document(s ) Erythrocyte 33.3 pg [facility] corpuscular hemoglobin [Entitic mass] by Automated count ID Date Data Source [id number] 04/20/2019 07:01:00 AM [facility] Value Range Interpretation Description Data Sup porting Code Source(s) Document(s ) Erythrocyte 112.8 fL [facility] corpuscular volume [Entitic volume] by Automated count ID Date Data Source [id number] 04/20/2019 07:01:00 AM [facility] Value Range Interpretation Description Data Sup porting Code Source(s) Document(s ) Hematocrit 31.8 % [facility] [Volume [facility] Fraction] of Blood by Automated count ID Date Data Source [id number] 04/20/2019 07:01:00 AM [facility] Value Range Interpretation Description Data Sup porting Code Source(s) Document(s ) Hemoglobin 9.4 g/dL [facility] [[facility] in Blood ID Date Data Source [id number] 04/20/2019 07:01:00 AM [facility] Value Range Interpretation Description Data Sup porting Code Source(s) Document(s ) Erythrocytes 2.82 [facility] [#/volume] in 10*6/uL Hospital Blood by Automated count ID Date Data Source [id number] 04/20/2019 07:01:00 AM [facility] Value Range Interpretation Description Data Sup porting Code Source(s) Document(s ) Leukocytes 4.2 [facility] [#/volume] in 10*3/uL Hospital Blood by Automated count ID Date Data Source [id number] 04/20/2019 [facility] Value Range Interpretation Description Data Sup porting Code Source(s) Document(s ) Hepatitis B NON-REACT [facility] virus surface [facility] Ag [Presence] in Serum ID Date Data Source [id number] 04/20/2019 07:01:00 AM [facility] Name Value Range Interpretation Description Data Sup porting Code Source(s) Document(s ) Folate 10.0 ng/mL [facility] [Mass[facility]volum [facility] e] in Serum or Plasma ID Date Data Source [id number] 04/20/2019 07:01:00 AM [facility] Name Value Range Interpretation Description Data Sup porting Code Source(s) Document(s ) Cobalamin 580 pg/mL [facility] (Vitamin B12) Hospital [Mass/volume] in Serum or Plasma ID Date Data Source [id number] 04/20/2019 07:01:00 AM [facility] TEST PERFORMED BY [employer] [facility] CHEMILUMINESCENCE METHOD. Name Value Range Interpretation Description Data Sup porting Code Source(s) Document(s ) Troponin 0.05 [facility] I.cardiac ng/mL Hospital [Mass/volume ] in Serum or Plasma ID Date Data Source [id number] 04/20/2019 07:01[facility] Name Value Range Interpretation Description Data Sup porting Code Source(s) Document(s ) Phosphate 8.8 mg/dL [facility] [[facility] in Serum or Plasma ID Date Data Source [id number] 04/20/2019 07:01[facility] Name Value Range Interpretation Description Data Sup porting Code Source(s) Document(s ) Magnesium 2.4 mg/dL [facility] [Mass[facility] in Serum or Plasma ID Date Data Source [id number] 04/20/2019 07:01:00 AM [facility] Name Value Range Interpretation Description Data Sup porting Code Source(s) Document(s ) Calcium 7.5 mg/dL [facility] [[facility] ] in Serum or Plasma ID Date Data Source [id number] 04/20/2019 07:01[facility] Name Value Range Interpretation Code Description Data Sharon rce(s) Supporting Document(s ) Urea 6.4 [facility] nitrogen/Cre Hospital atinine [Mass Ratio] in Serum or Plasma ID Date Data Source [id number] 04/20/2019 07:01:00 AM [facility] NOTIFICATION AND READ BACK OF CRITICAL R ESULTS TO NATALIE TIWARI RN W4F AT 0827 ON 04/20/19 BY Janel Barrera.REPORTED CRITI MARCI VALUES SHOULD BE INTERPRETED WITHIN CLINICAL CONTEXT. Name Value Range Interpretation Description Data Sup porting Code Source(s) Document(s ) Creatinine 6.9 mg/dL [facility] [[facility] in Serum or Plasma ID Date Data Source [id number] 04/20/2019 07:01[facility] Name Value Range Interpretation Description Data Sup porting Code Source(s) Document(s ) Urea 44 mg/dL [facility] nitrogen [facility] [Mass/volume ] in Serum or Plasma ID Date Data Source [id number] 04/20/2019 07:01:00 AM [facility] Name Value Range Interpretation Code Description Data Sharon rce(s) Supporting Document(s ) Anion gap in 19 [facility] Serum or [facility] Plasma ID Date Data Source [id number] 04/20/2019 07:01:00 AM [facility] Name Value Range Interpretation Description Data Sup porting Code Source(s) Document(s ) Carbon 24 mmol/L [facility] dioxide, Hospital total [Moles/volu me] in Serum or Plasma ID Date Data Source [id number] 04/20/2019 07:01:00 AM [facility] Name Value Range Interpretation Description Data Sup porting Code Source(s) Document(s ) Chloride 103 [facility] [Moles/volum mmol/L Hospital e] in Serum or Plasma ID Date Data Source [id number] 04/20/2019 07:01:00 AM [facility] Name Value Range Interpretation Description Data Sup porting Code Source(s) Document(s ) Potassium 4.9 [facility] [Moles/volume mmol/L Hospital ] in Serum or Plasma ID Date Data Source [id number] 04/19/2019 07:27:00 PM [facility] THERAPEUTIC RANGE FOR STANDARD ORALANTIC OAGULANT THERAPY: 2.0-3.0THERAPEUTIC RANGE FOR HIGH DOSE ORALANTICOAGULANT THERAPY (MECHANICAL HEARTVALVE REPLACEMENT): 2.5-3.5 Name Value Range Interpretation Description Data Sup porting Code Source(s) Document(s ) INR in Platelet 1.0 [facility] poor plasma by Hospital Coagulation assay ID Date Data Source [id number] 04/19/2019 07:27:00 PM [facility] Name Value Range Interpretation Description Data Sup porting Code Source(s) Document(s ) PT panel - 11.1 s [facility] Platelet poor [facility] plasma by Coagulation assay ID Date Data Source [id number] 04/19/2019 07:27:00 PM [facility] THERAPEUTIC RANGE FOR STANDARD ORALANTIC OAGULANT THERAPY: 2.0-3.0THERAPEUTIC RANGE FOR HIGH DOSE ORALANTICOAGULANT THERAPY (MECHANICAL HEARTVALVE REPLACEMENT): 2.5-3.5 Name Value Range Interpretation Description Data Sup porting Code Source(s) Document(s ) INR in Platelet 1.0 [facility] poor plasma by Hospital Coagulation assay ID Date Data Source [id number] 04/19/2019 07:27:00 PM EDT [facility] Name Value Range Interpretation Description Data Sup porting Code Source(s) Document(s ) PT panel - 11.1 s [facility] Platelet poor Hospital plasma by Coagulation assay ID Date Data Source [id number] 04/19/2019 04:53:00 PM EDT [facility] Name Value Range Interpretation Description Data Sup porting Code Source(s) Document(s ) Natriuretic 1422.7 [facility] peptide B pg/mL Hospital [Mass/volume] in Serum or Plasma ID Date Data Source [id number] 04/19/2019 04:53:00 PM EDT [facility] Name Value Range Interpretation Description Data Sup porting Code Source(s) Document(s ) Aspartate 12 U/L [facility] aminotransferase [facility] [Enzymatic Hospital activity/volume] in Serum or Plasma ID Date Data Source [id number] 04/19/2019 04:53:00 PM EDT [facility] Name Value Range Interpretation Description Data Sup porting Code Source(s) Document(s ) Alanine < 8 U/L [facility] aminotransferase [facility] [Enzymatic Hospital activity/volume] in Serum or Plasma ID Date Data Source [id number] 04/19/2019 04:53:00 PM EDT [facility] Name Value Range Interpretation Description Data Sup porting Code Source(s) Document(s ) Alkaline 119 U/L [facility] phosphatase Hospital [Enzymatic activity/volume ] in Serum or Plasma ID Date Data Source [id number] 04/19/2019 04:53:00 PM EDT [facility] Name Value Range Interpretation Description Data Sup porting Code Source(s) Document(s ) Bilirubin.t 0.2 mg/dL [facility] Hospital [Mass/volum e] in Serum or Plasma ID Date Data Source [id number] 04/19/2019 04:53:00 PM EDT [facility] Name Value Range Interpretation Code Description Data Sharon rce(s) Supporting Document(s ) Albumin/Glob 1.2 [facility] ulin [Mass Hospital Ratio] in Serum or Plasma ID Date Data Source [id number] 04/19/2019 04:53:00 PM EDT [facility] Value Range Interpretation Description Data Sup porting Code Source(s) Document(s ) Albumin 3.5 g/dL [facility] [Mass/volume Hospital ] in Serum or Plasma ID Date Data Source [id number] 04/19/2019 04:53:00 PM EDT [facility] Name Value Range Interpretation Description Data Sup porting Code Source(s) Document(s ) Protein 6.5 g/dL [facility] [Mass/[facility] Hospital ] in Serum or Plasma ID Date Data Source [id number] 04/19/2019 04:53:00 PM EDT [facility] Name Value Range Interpretation Description Data Sup porting Code Source(s) Document(s ) Natriuretic 1422.7 [facility] peptide B pg/mL Hospital [Mass/volume] in Serum or Plasma ID Date Data Source [id number] 04/19/2019 04:53:00 PM EDT [facility] Name Value Range Interpretation Description Data Sup porting Code Source(s) Document(s ) Aspartate 12 U/L White aminotransferase [facility] [Enzymatic Hospital activity/volume] in Serum or Plasma ID Date Data Source [id number] 04/19/2019 04:53:00 PM EDT [facility] Name Value Range Interpretation Description Data Sup porting Code Source(s) Document(s ) Alanine < 8 U/L [facility] [Enzymatic Hospital activity/volume] in Serum or Plasma ID Date Data Source [id number] 04/19/2019 04:53:00 PM EDT [facility] Name Value Range Interpretation Description Data Sup porting Code Source(s) Document(s ) Alkaline 119 U/L [facility] phosphatase Hospital [Enzymatic activity/volume ] in Serum or Plasma ID Date Data Source [id number] 04/19/2019 04:53:00 PM EDT [facility] Name Value Range Interpretation Description Data Sup porting Code Source(s) Document(s ) Bilirubin.t 0.2 mg/dL [facility] [Mass/volum e] in Serum or Plasma ID Date Data Source [id number] 04/19/2019 [facility]:53[facility] Name Value Range Interpretation Code Description Data Sharon rce(s) Supporting Document(s ) [facility] in Serum or Plasma ID Date Data Source [id number] 04/19/2019 04:53:[facility] Name Value Range Interpretation Description Data Sup porting Code Source(s) Document(s ) Albumin 3.5 g/dL [facility] [Mass/volume Hospital ] in Serum or Plasma ID Date Data Source [id number] 04/19/2019 04:53:[facility] Name Value Range Interpretation Description Data Sup porting Code Source(s) Document(s ) Protein 6.5 g/dL [facility] [Mass/volume Hospital ] in Serum or Plasma ID Date Data Source [id number] 03/10/2019 07:31:00 AM EDT [facility] Name Value Range Interpretation Description Data Sup porting Code Source(s) Document(s ) Calcium 7.6 mg/dL [facility] [Mass/volume Hospital ] in Serum or Plasma ID Date Data Source [id number] 03/10/2019 07:31:00 AM EDT [facility] Name Value Range Interpretation Code Description Data Sharon rce(s) Supporting Document(s ) Urea 7.7 [facility] nitrogen/Cre Hospital atinine [Mass Ratio] in Serum or Plasma ID Date Data Source [id number] 03/10/2019 07:31:00 AM EDT [facility] Name Value Range Interpretation Description Data Sup porting Code Source(s) Document(s ) Creatinine 4.4 mg/dL [facility] [Mass/volume] Hospital in Serum or Plasma ID Date Data Source [id number] 03/10/2019 07:31:00 AM EDT [facility] Name Value Range Interpretation Description Data Sup porting Code Source(s) Document(s ) Urea 34 mg/dL [facility] nitrogen [facility] [Mass/volume ] in Serum or Plasma ID Date Data Source [id number] 03/10/2019 07:31:00 AM EDT [facility] Value Range Interpretation Code Description Data Sharon rce(s) Supporting Document(s ) Anion gap in 12 [facility] Serum or [facility] Plasma ID Date Data Source [id number] 03/10/2019 07:31:00 AM EDT [facility] Name Value Range Interpretation Description Data Sup porting Code Source(s) Document(s ) Carbon 31 mmol/L [facility] dioxide, Hospital total [Moles/volu me] in Serum or Plasma ID Date Data Source [id number] 03/10/2019 07:31:00 AM EDT [facility] Name Value Range Interpretation Description Data Sup porting Code Source(s) Document(s ) Chloride 99 mmol/L [facility] e] in Serum or Plasma ID Date Data Source [id number] 03/10[facility]2019 [facility] Name Value Range Interpretation Description Data Sup porting Code Source(s) Document(s ) Potassium 4.3 [facility] [[facility]volume mmol/L Hospital ] in Serum or Plasma ID Date Data Source [id number] 03/10/2019 07:31:[facility] Name Value Range Interpretation Description Data Sup porting Code Source(s) Document(s ) Sodium 138 mmol/L [facility] me] in Serum or Plasma ID Date Data Source [id number] 03/10/2019 07:31:00 AM [facility] Value Range Interpretation Description Data Sup porting Code Source(s) Document(s ) Glucose 84 mg/dL [facility] [[facility] ] in Serum or Plasma ID Date Data Source [id number] 03/10/2019 07:31:00 AM [facility] THERAPEUTIC RANGE FOR STANDARD ORALANTIC OAGULANT THERAPY: 2.0-3.0THERAPEUTIC RANGE FOR HIGH DOSE ORALANTICOAGULANT THERAPY (MECHANICAL HEARTVALVE REPLACEMENT): 2.5-3.5 Name Value Range Interpretation Description Data Sup porting Code Source(s) Document(s ) INR in Platelet 2.3 [facility] poor plasma by Hospital Coagulation assay ID Date Data Source [id number] 03/10/2019 07:31:00 AM [facility] Name Value Range Interpretation Description Data Sup porting Code Source(s) Document(s ) PT panel - 26.5 s [facility] Platelet poor [facility] plasma by Coagulation assay ID Date Data Source [id number] 03/10/2019 07:31:00 AM [facility] Name Value Range Interpretation Description Data Sup porting Code Source(s) Document(s ) Differential AUTOMATED [facility] cell count [facility] method - Blood ID Date Data Source [id number] 03/10/2019 07:31:00 AM [facility] Value Range Interpretation Description Data Sup porting Code Source(s) Document(s ) Immature 0.02 [facility] granulocytes 10*3/uL Hospital [#/volume] in Blood by Automated count ID Date Data Source [id number] 03/10/2019 07:31:00 AM [facility] Value Range Interpretation Description Data Sup porting Code Source(s) Document(s ) Basophils 0.03 [facility] [#/volume] in 10*3/uL Hospital Blood by Automated count ID Date Data Source [id number] 03/10/2019 07:31:00 AM [facility] Name Value Range Interpretation Description Data Sup porting Code Source(s) Document(s ) Eosinophils 0.30 [facility] [#/volume] in 10*3/uL Hospital Blood by Automated count ID Date Data Source [id number] 03/10/2019 07:31:00 AM [facility] Name Value Range Interpretation Description Data Sup porting Code Source(s) Document(s ) Monocytes 0.34 [facility] [#/volume] in 10*3/uL Hospital Blood by Automated count ID Date Data Source [id number] 03/10[facility] Interpretation Description Data Sup porting Code Source(s) Document(s ) Lymphocytes 0.88 [facility] [#/volume] in 10*3/uL Hospital Blood by Automated count ID Date Data Source [id number] 03/10/2019 07[facility] Name Value Range Interpretation Description Data Sup porting Code Source(s) Document(s ) Neutrophils 1.55 [facility] [#/volume] in 10*3/uL Hospital Blood by Automated count ID Date Data Source [id number] 03/10/2019 07:31:00 AM EDT [facility] Value Range Interpretation Description Data Sup porting Code Source(s) Document(s ) Nucleated 0.0 % [facility] erythrocytes/10 [facility] 0 leukocytes [Ratio] in Blood by Automated count ID Date Data Source [id number] 03/10/2019 07:31:00 AM EDT [facility] Value Range Interpretation Description Data Sup porting Code Source(s) Document(s ) Immature 0.6 % [facility] granulocytes/10 [facility] 0 leukocytes in Blood by Automated count ID Date Data Source [id number] 03/10/2019 07:31:00 AM EDT [facility] Value Range Interpretation Description Data Sup porting Code Source(s) Document(s ) Basophils/100 1.0 % [facility] leukocytes in [facility] Blood by Automated count ID Date Data Source [id number] 03/10/2019 [facility] Value Range Interpretation Description Data Sup porting Code Source(s) Document(s ) Eosinophils/100 9.6 % [facility] leukocytes in Hospital Blood by Automated count ID Date Data Source [id number] 03/10/2019 07:31:00 AM EDT [facility] Value Range Interpretation Description Data Sup porting Code Source(s) Document(s ) Monocytes/100 10.9 % [facility] leukocytes in Hospital Blood by Automated count ID Date Data Source [id number] 03/10/2019 07:31:00 AM EDT [facility] Value Range Interpretation Description Data Sup porting Code Source(s) Document(s ) Lymphocytes/10 28.2 % [facility] 0 leukocytes Hospital in Blood by Automated count ID Date Data Source [id number] 03/10/2019 07:31:00 AM EDT [facility] Value Range Interpretation Description Data Sup porting Code Source(s) Document(s ) Neutrophils/10 49.7 % [facility] 0 leukocytes Hospital in Blood by Automated count ID Date Data Source [id number] 03/10/2019 07:31:00 AM EDT [facility] Value Range Interpretation Description Data Sup porting Code Source(s) Document(s ) Platelet mean 12.5 fL [facility] volume [facility] [Entitic volume] in Blood by Automated count ID Date Data Source [id number] 03/10/2019 07:31:00 AM EDT [facility] Value Range Interpretation Description Data Sup porting Code Source(s) Document(s ) Platelets 96 [facility] [#/volume] in 10*3/uL Hospital Blood by Automated count ID Date Data Source [id number] 03/10/2019 07:31:00 AM EDT [facility] Value Range Interpretation Description Data Sup porting Code Source(s) Document(s ) Erythrocyte 15.5 % [facility] distribution [facility] width [Ratio] by Automated count ID Date Data Source [id number] 03/10/2019 07:31:00 AM EDT [facility] Value Range Interpretation Description Data Sup porting Code Source(s) Document(s ) Erythrocyte mean 31.2 [facility] corpuscular g/dL Hospital hemoglobin concentration [Mass/volume] by Automated count ID Date Data Source [id number] 03/10/2019 07:31:00 AM EDT [facility] Value Range Interpretation Description Data Sup porting Code Source(s) Document(s ) Erythrocyte 33.6 pg [facility] mean Hospital corpuscular hemoglobin [Entitic mass] by Automated count ID Date Data Source [id number] 03/10/2019 07:31:00 AM EDT [facility] Value Range Interpretation Description Data Sup porting Code Source(s) Document(s ) Erythrocyte 107.9 fL [facility] mean [facility] corpuscular volume [Entitic volume] by Automated count ID Date Data Source [id number] 03/10/2019 07:31:00 AM EDT [facility] Value Range Interpretation Description Data Sup porting Code Source(s) Document(s ) Hematocrit 26.0 % [facility] [Volume Hospital Fraction] of Blood by Automated count ID Date Data Source [id number] 03/10/2019 07:31:00 AM EDT [facility] Value Range Interpretation Description Data Sup porting Code Source(s) Document(s ) Hemoglobin 8.1 g/dL [facility] [[facility] in Blood ID Date Data Source [id number] 03/10/2019 07:31:00 AM EDT [facility] Value Range Interpretation Description Data Sup porting Code Source(s) Document(s ) Erythrocytes 2.41 [facility] [#/volume] in 10*6/uL Hospital Blood by Automated count ID Date Data Source [id number] 03/10/2019 07:31:00 AM EDT [facility] Value Range Interpretation Description Data Sup porting Code Source(s) Document(s ) Leukocytes 3.1 [facility] [#/volume] in 10*3/uL Hospital Blood by Automated count ID Date Data Source [id number] 03/09/2019 [facility] Range Interpretation Code Description Data Supporting Source(s) Document(s ) NUCLEATED RBCS 0.0 % [facility] (AUTO Hospital DIFF%)DIS ID Date Data Source [id number] 03/09/2019 10:41:00 AM EDT [facility] Name Value Range Interpretation Code Description Data Sharon rce(s) Supporting Document(s ) Cells 100 [facility] Total [#] in Blood ID Date Data Source [id number] 03/09/2019 10:41:00 AM EDT [facility] GIANT PLATELETS PRESENT Name Value Range Interpretation Description Data Sup porting Code Source(s) Document(s ) PLATELET PRESENT [facility] Hospital ID Date Data Source [id number] 03/09/2019 10:41:00 AM EDT [facility] Name Value Range Interpretation Code Description Data Sharon rce(s) Supporting Document(s ) TEARDROP [facility] Hospital ID Date Data Source [id number] 03/09/2019 10:41:00 AM EDT [facility] Name Value Range Interpretation Code Description Data Sharon rce(s) Supporting Document(s ) OVALOCYTES [facility] ID Date Data Source [id number] 03/09/2019 10:41:00 AM EDT [facility] Name Value Range Interpretation Code Description Data Supporting Source(s) Document(s ) POLYCHROMASIA 1+ [facility] ID Date Data Source [id number] 03/09/2019 10:41:00 AM EDT [facility] Name Value Range Interpretation Code Description Data Sharon rce(s) Supporting Document(s ) MACROCYTOSIS 1+ [facility] ID Date Data Source [id number] 03/09/2019 [facility] Value Range Interpretation Code Description Data Sharon rce(s) Supporting Document(s ) ANISOCYTOSIS OCC [facility] ID Date Data Source [id number] 03/09/2019 10:41:00 AM EDT [facility] Name Value Range Interpretation Description Data Sup porting Code Source(s) Document(s ) Basophils 0.07 [facility] [#/volume] in 10*3/uL Hospital Blood by Manual count ID Date Data Source [id number] 03/09/2019 10:41:00 AM EDT [facility] Value Range Interpretation Description Data Sup porting Code Source(s) Document(s ) Eosinophils 0.07 [facility] [#/volume] in 10*3/uL Hospital Blood by Manual count ID Date Data Source [id number] 03/09/2019 10:41:00 AM EDT [facility] Value Range Interpretation Description Data Sup porting Code Source(s) Document(s ) Monocytes 0.36 [facility] [#/volume] in 10*3/uL Hospital Blood by Manual count ID Date Data Source [id number] 03/09/2019 10:41:00 AM EDT [facility] Value Range Interpretation Description Data Sup porting Code Source(s) Document(s ) Lymphocytes 1.01 [facility] [#/volume] in 10*3/uL Hospital Blood by Manual count ID Date Data Source [id number] 03/09/2019 10:41:00 AM EDT [facility] Value Range Interpretation Description Data Sup porting Code Source(s) Document(s ) Neutrophils 2.09 [facility] [#/volume] in 10*3/uL Hospital Blood by Manual count ID Date Data Source [id number] 03/09/2019 10:41:00 AM EDT [facility] Name Value Range Interpretation Description Data Sup porting Code Source(s) Document(s ) Basophils/100 2 % [facility] leukocytes in Hospital Blood by Manual count ID Date Data Source [id number] 03/09/2019 10:41:00 AM EDT [facility] Name Value Range Interpretation Description Data Sup porting Code Source(s) Document(s ) Eosinophils/100 2 % [facility] leukocytes in Hospital Blood by Manual count ID Date Data Source [id number] 03/09/2019 10:41:00 AM EDT [facility] Name Value Range Interpretation Description Data Sup porting Code Source(s) Document(s ) Monocytes/100 10 % [facility] leukocytes in Hospital Blood by Manual count ID Date Data Source [id number] 03/09/2019 10:41:00 AM EDT [facility] Name Value Range Interpretation Description Data Sup porting Code Source(s) Document(s ) Lymphocytes/100 28 % [facility] leukocytes in Hospital Blood by Manual count ID Date Data Source [id number] 03/09/2019 10:41:00 AM EDT [facility] Value Range Interpretation Description Data Sup porting Code Source(s) Document(s ) Neutrophils/100 58 % [facility] leukocytes in Hospital Blood by Manual count ID Date Data Source [id number] 03/08/2019 [facility] Interpretation Description Data Sup porting Code Source(s) Document(s ) Phosphate 6.3 mg/dL [facility] in Serum or Plasma ID Date Data Source [id number] 03/08/2019 07:42:00 AM EDT [facility] Name Value Range Interpretation Description Data Sup porting Code Source(s) Document(s ) Aspartate 20 U/L [facility] amin[facility] [place] [Enzymatic Hospital activity/volume] in Serum or Plasma ID Date Data Source [id number] 03/08/2019 07:42:00 AM EDT [facility] Value Range Interpretation Description Data Sup porting Code Source(s) Document(s ) Alanine 8 U/L [facility] aminotransferase Hospital [Enzymatic activity/volume] in Serum or Plasma ID Date Data Source [id number] 03/08/2019 07:42:00 AM [facility] Name Value Range Interpretation Description Data Sup porting Code Source(s) Document(s ) Alkaline 114 U/L [facility] phosphatase [facility] [Enzymatic activity/volume ] in Serum or Plasma ID Date Data Source [id number] 03/08/2019 07:42:00 AM [facility] Name Value Range Interpretation Description Data Sup porting Code Source(s) Document(s ) Bilirubin.t 0.2 mg/dL [facility] [Mass/volum e] in Serum or Plasma ID Date Data Source [id number] 03/08/2019 07:42:00 AM [facility] Name Value Range Interpretation Code Description Data Sharon rce(s) Supporting Document(s ) Albumin/Glob 1.1 [facility] [Mass Hospital Ratio] in Serum or Plasma ID Date Data Source [id number] 03/08/2019 07:42:00 AM [facility] Name Value Range Interpretation Description Data Sup porting Code Source(s) Document(s ) Albumin 3.2 g/dL [facility] [Mass[facility] ] in Serum or Plasma ID Date Data Source [id number] 03/08/2019 07:42:00 AM [facility] Name Value Range Interpretation Description Data Sup porting Code Source(s) Document(s ) Protein 6.1 g/dL [facility] [[facility] ] in Serum or Plasma ID Date Data Source [id number] 03/06/2019 02:36:00 PM [facility] UNITS ARE IN ml/min/1.73m2.IF PATIENT IS -GUAMANIAN, MULTIPLY REPORTED RESULT BY 1.21. Name Value Range Interpretation Description Data Sup porting Code Source(s) Document(s ) Glomerular 8 mL/min [facility] filtration [facility] rate/1.73 sq M.predicted [Volume Rate/Area] in Serum or Plasma by Creatinine-bas ed formula (MDRD) Procedure Social History Code Duration Value Status Description Data Source(s ) Smoking 03/26/2020 Tobacco smoking completed Tobacco smoking [facility] 03:11:00 PM EDT consumption consumption Hospita [facility] unknown (finding) unknown (finding) Smoking 01/19/2020 Ex-smoker completed Ex-smoker [facility] 08:26:00 AM EDT (finding) (finding) Hospital Smoking 12/08/2019 Tobacco smoking completed Tobacco smoking [facility] [place] 04:42:00 AM EDT consumption consumption Hospita [facility] unknown (finding) unknown (finding) 09/14/2019 Y - marijuana completed Y - marijuana [facility] 12:02:00 AM EST Hospital Smoking 09/14/2019 Ex-smoker completed Ex-smoker [facility] 12:02:00 AM EST (finding) (finding) Hospital Smoking 09/04/2019 Ex-smoker completed Ex-smoker [facility] 08:00:00 AM EST (finding) (finding) Hospital 08/26/2019 [...] EST Hospital Smoking 07/15/2019 Ex-smoker completed Ex-smoker [facility] 04:47:00 AM EST (finding) (finding) Hospital Smoking 06/07/2019 Ex-smoker completed Ex-smoker [facility] 09:01:00 AM EST (finding) (finding) Hospital Smoking 06/07/2019 Ex-smoker completed Ex-smoker [facility] 09:01:00 AM EST (finding) (finding) Hospital Smoking 05/22/2019 Ex-smoker completed Ex-smoker [facility] 12:42:00 PM EDT (finding) (finding) Hospital Smoking 05/22/2019 Ex-smoker completed Ex-smoker [facility] 12:42:00 PM EDT (finding) (finding) Hospital Smoking 04/19/2019 Ex-smoker completed Ex-smoker [facility] 08:58:00 PM EDT (finding) (finding) Hospital Vital Signs ID Date Data Source UNK Name Value Range Interpretation Code Description Data Source(s) Body temperature 36.39078 36.14518 [facility] Body temperature 97.9 [degF] 97.9 [degF] [facility] Body mass index 31.0 kg/m2 31.0 kg/m2 [facility] (BMI) [Ratio] Hospital Body weight 173.06 173.06 [lb_av] [place] [facility] [lb_av] [facility] Body temperature 36.[address] [facility] Hospital Body temperature 97.5 [degF] 97.5 [degF] [facility] Body mass index 30.0 kg/m2 30.0 kg/m2 [facility] (BMI) [Ratio] Hospital Body weight 165.35 165.35 [lb_av] [facility] [lb_av] [facility] Body temperature 37.075[address] 37.[address] [facility] Hospital Body temperature 98.8 [degF] 98.8 [degF] [facility] Body mass index 29.0 kg/m2 29.0 kg/m2 [facility] (BMI) [Ratio] [facility] Body weight 159.33 159.33 [lb_av] [facility] [lb_av] [facility] Body temperature 36.[address] [facility] Hospital Body temperature 98.0 [degF] 98.0 [degF] [facility] Body mass index 31.0 kg/m2 31.0 kg/m2 [facility] (BMI) [Ratio] Hospital Body weight 169.98 169.98 [lb_av] [facility] [lb_av] [facility] Body temperature 36.08[address] 36.[address] [facility] Hospital Body temperature 98.0 [degF] 98.0 [degF] [facility] Body mass index 266.0 kg/m2 266.0 kg/m2 [place] [facility] (BMI) [Ratio] Hospital Body weight 346.13 346.13 [lb_av] [facility] [lb_av] [facility] Body temperature 36.29996 36.03477 [facility] Body temperature 98.1 [degF] 98.1 [degF] [facility] Body mass index 30.0 kg/m2 30.0 kg/m2 [facility] (BMI) [Ratio] Hospital Body weight 168.87 168.87 [lb_av] [facility] [lb_av] [facility] Body temperature 37.42831 37.42461 [facility] Body temperature 99.0 [degF] 99.0 [degF] [facility] Body mass index 30.0 kg/m2 30.0 kg/m2 [facility] (BMI) [Ratio] Hospital Body weight 165.35 165.35 [lb_av] [facility] [lb_av] [facility] Diastolic blood 57 mm[Hg] 57 mm[Hg] [facility] Systolic blood 104 mm[Hg] 104 mm[Hg] [place] [facility] Heart rate 85 /min 85 /min [facility] Body temperature 36.29172 36.71970 [facility] Body temperature 98.0 [degF] 98.0 [degF] [facility] Body mass index 29.0 kg/m2 29.0 kg/m2 [facility] (BMI) [Ratio] Hospital Body weight 163.58 163.58 [lb_av] [facility] [lb_av] [facility] Systolic blood 151 mm[Hg] 151 mm[Hg] [facility] Diastolic blood 72 mm[Hg] 72 mm[Hg] [place] [facility] Heart rate 91 /min 91 /min [facility] Diastolic blood 97 {} Normal (applies to 97 {} [place] pressure non-numeric results) [facility] Systolic blood 124 {} Normal (applies to 124 {} [place] pressure non-numeric results) [facility] First Respiration 18.0000 {} Normal (applies to 18.0000 {} [place] rate Set non-numeric results) [facility] Heart rate 74.0000 {} Normal (applies to 74.0000 {} [facility] non-numeric results) [facility] Body temperature 97.0000 {} Normal (applies to 97.0000 {} [place] non-numeric results) [facility] wt - obtain Normal (applies to {} [facility] [place] non[facility]numeric results) [facility] weight - kg 73.3000 {} Normal (applies to 73.3000 {} [facility] non-numeric results) [facility] height - cm Normal (applies to {} [facility] [place] non-numeric results) [facility] Body temperature 36.23562 36.90816 [facility] Body temperature 98.1 [degF] 98.1 [degF] [facility] Body mass index 26.0 kg/m2 26.0 kg/m2 [facility] (BMI) [Ratio] Hospital Body weight 145.31 145.31 [lb_av] [place] [facility] [lb_av] [facility] Body temperature 36.61744 36.63060 [facility] Body temperature 97.3 [degF] 97.3 [degF] [facility] Body mass index 27.0 kg/m2 27.0 kg/m2 [facility] (BMI) [Ratio] Hospital Body weight 156.31 156.31 [lb_av] [facility] [lb_av] [facility] Body temperature 36.80819 36.49366 [facility] Body temperature 97.8 [degF] 97.8 [degF] [facility] Body mass index 28.0 kg/m2 28.0 kg/m2 [facility] (BMI) [Ratio] Hospital Body weight 153 [lb_av] 153 [lb_av] Health system Diastolic blood 66 mm[Hg] 66 mm[Hg] [facility] pressure [facility] Systolic blood 133 mm[Hg] 133 mm[Hg] [facility] Respiratory rate 18 /min 18 /min [facility] Heart rate 78 /min 78 /min [facility] Body temperature 36.[address] [facility] Hospital Body temperature 97.6 [degF] 97.6 [degF] [facility] Body mass index 11.0 kg/m2 11.0 kg/m2 [facility] (BMI) [Ratio] Hospital Body weight 61.49 61.49 [lb_av] [facility] [lb_[facility]] [facility] Diastolic blood 67 mm[Hg] 67 mm[Hg] [facility] pressure [facility] Systolic blood 102 mm[Hg] 102 mm[Hg] [facility] Respiratory rate 20 /min 20 /min [facility] Heart rate 64 /min 64 /min [facility] Body temperature 36.19894 36.29138 [facility] Body temperature 98.2 [degF] 98.2 [degF] [facility] Respiratory rate 22 /min 22 /min [facility] Respiratory rate 22 /min 22 /min [facility] Body mass index 28.0 kg/m2 28.0 kg/m2 [facility] (BMI) [Ratio] Hospital Body weight 155.87 155.87 [lb_av] [facility] ins [lb_av] Hospital Systolic blood 113 mm[Hg] 113 mm[Hg] [facility] Diastolic blood 56 mm[Hg] 56 mm[Hg] [facility] Respiratory rate 18 /min 18 /min [facility] Heart rate 73 /min 73 /min [facility] Systolic blood 113 mm[Hg] 113 mm[Hg] [facility] Diastolic blood 56 mm[Hg] 56 mm[Hg] [facility] Respiratory rate 18 /min 18 /min [facility] Heart rate 73 /min 73 /min [facility] Body temperature 36.12199 36.54902 [facility] Body temperature 98.1 [degF] 98.1 [degF] [facility] Body mass index 30.0 kg/m2 30.0 kg/m2 [facility] (BMI) [Ratio] Hospital Body weight 160.34 160.34 [lb_av] [facility] [lb_av] [facility] Diastolic blood 78 mm[Hg] 78 mm[Hg] [facility] Systolic blood 164 mm[Hg] 164 mm[Hg] [facility] Respiratory rate 16 /min 16 /min [facility] Heart rate 66 /min 66 /min [facility] Body temperature 36.06126 36.14202 [facility] Body temperature 97.4 [degF] 97.4 [degF] [facility] Diastolic blood 78 mm[Hg] 78 mm[Hg] [facility] Systolic blood 164 mm[Hg] 164 mm[Hg] [facility] Respiratory rate 16 /min 16 /min [facility] Heart rate 66 /min 66 /min [facility] Body temperature 36.86494 36.71998 [facility] Body temperature 97.4 [degF] 97.4 [degF] [facility] Body mass index 33.0 kg/m2 33.0 [...] Hospital Respiratory rate 18 /min 18 /min [facility] Heart rate 62 /min 62 /min [facility] Body temperature 36.10946 36.70078 [facility] Body temperature 97.9 [degF] 97.9 [degF] [facility] Diastolic blood 77 mm[Hg] 77 mm[Hg] [facility] Systolic blood 131 mm[Hg] 131 mm[Hg] [facility] Respiratory rate 20 /min 20 /min [facility] Heart rate 65 /min 65 /min [facility] Body temperature 36.98236 36.90906 [facility] Body temperature 98.0 [degF] 98.0 [degF] [facility] Body mass index 31.0 kg/m2 31.0 [...] Hospital Respiratory rate 20 /min 20 /min [facility] Heart rate 79 /min 79 /min [facility] Body mass index 28.0 kg/m2 28.0 kg/m2 [facility] (BMI) [Ratio] [facility] Body weight 169.76 169.76 [lb_av] [place] [facility] [lb_av] [facility] Body temperature 36.05536 36.17058 [facility] Body temperature 98.0 [degF] 98.0 [degF] [facility] Diastolic blood 70 mm[Hg] 70 mm[Hg] [facility] Systolic blood 171 mm[Hg] 171 mm[Hg] [facility] Heart rate 78 /min 78 /min [facility] Diastolic blood 70 mm[Hg] 70 mm[Hg] [place] [facility] Systolic blood 171 mm[Hg] 171 mm[Hg] [facility] pressure Hospital Heart rate 78 /min 78 /min [facility] Respiratory rate 18 /min 18 /min [facility] Respiratory rate 18 /min 18 /min [facility] Body temperature 36.23645 36.52945 [facility] Body temperature 97.7 [degF] 97.7 [degF] [facility] Body mass index 28.0 kg/m2 28.0 kg/m2 [facility] (BMI) [Ratio] [facility] Body weight 169.76 169.76 [lb_av] [place] [facility] [lb_av] [facility] Diastolic blood 65 mm[Hg] 65 mm[Hg] [place] [facility] Systolic blood 131 mm[Hg] 131 mm[Hg] [facility] pressure Hospital Respiratory rate 16 /min 16 /min [facility] Heart rate 71 /min 71 /min [facility] Body temperature 36.42369 36.24939 [facility] Body temperature 98.3 [degF] 98.3 [degF] [facility] Body mass index 30.0 kg/m2 30.0 kg/m2 [facility] (BMI) [Ratio] [facility] Body weight 168.87 168.87 [lb_av] [place] [facility] [lb_av] [facility] Patient Treatment Plan of Care Planned Activity Planned Date Details Description Data Source (s) Hair CROCKER (Quetiap 11/23/2019 01:07:04 [facility] Carafate (Sucralfate 11/23/2019 01:06:54 [facility] Protronix (Pantopraz 11/23/2019 01:06:27 [facility] Vistaril (Hydroxyzin 11/23/2019 01:06:13 [facility] FENTANYL Inj 100 mcq 11/23/2019 12:07:09 [facility] Lidocaine 1% w/Epi 1 11/22/2019 10:26:34 [facility]
--- NOTE | 2020-05-02 20:39 | HP ---
CHIEF COMPLAINT: SOB PCP: Rose HISTORY OF PRESENT ILLNESS: This is a 75 y/o female from [facility] with a PMHx of ESRD (,,), CHF, Afib, CAD, HTN, HLD, COPD, Hypothyroid, Breast Ca, CVA, GERD. Who presents to the ED for SOB, patient missed her dialysis session today. Patient denies CP, palpitations. Patient denies fever, chills, cough, TAM, dizziness, AP, N/V/D. ER course was notable for: (1) Chest Xray- cardiomegaly, congestive changes (2) BNP > 35,000 (3) K 8.7~ 4.9 (4) BUN/Cr 41.6/6.0 Recent Travel: None PAST MEDICAL HISTORY: See HPI PAST SURGICAL HISTORY: Gastric Bypass Cardiac Cath 2011 Cholecystectomy Right Wrist ORIF Left Rotator Cuff R- Eye sx L- AVG Thrombectomy L- Breast Lumpectomy Node Dissection RUE sx (for vascular access) Social History: Smoking: unknown Alcohol: unknown Drugs: unknown Resides in SNF Allergies ciprofloxacin Allergy (Verified 04/08/20 09:39) denosumab Allergy (Verified 04/08/20 09:39) gabapentin Allergy (Verified 04/08/20 09:39) levofloxacin Allergy (Verified 04/08/20 09:39) NSAIDS (Non-Steroidal Anti-Inflamma Allergy (Verified 04/08/20 09:39) sulfamethoxazole Allergy (Verified 04/08/20 09:39) trimethoprim Allergy (Verified 04/08/20 09:39) tape Adverse Reaction (Uncoded 04/08/20 09:39) HOME MEDICATIONS: Home Medications Medication Instructions Recorded Acetaminophen [Non-Aspirin Extra 1,000 mg PO BID 04/08/20 Strength] Aripiprazole 30 mg PO DAILY 04/08/20 Febuxostat [Uloric -] 40 mg PO DAILY 04/08/20 Furosemide 80 mg PO DAILY 04/08/20 Multivitamin 1 each PO DAILY 04/08/20 Pravastatin Sodium [Pravachol -] 40 mg PO HS 04/08/20 Quetiapine Fumarate [Seroquel -] 100 mg PO HS 04/08/20 Sevelamer Carbonate 800 mg PO DAILY 04/08/20 Acetaminophen [Tylenol .Regular 650 mg PO Q6H PRN tablet 04/17/20 Strength -] Pantoprazole Sodium [Protonix -] 40 mg PO DAILY tablet.ec 04/17/20 Simethicone [Mylicon -] 80 mg PO QID PRN tab.chew 04/17/20 Albuterol 2.5/Ipratropium 0.5 1 neb IH QID 05/02/20 [Duoneb -] Amlodipine Besylate [Norvasc -] 10 mg PO DAILY 05/02/20 Bromfenac Sodium [Prolensa] 1 drop OU BID 05/02/20 Folic Acid 0.8 mg PO DAILY 05/02/20 Propranolol HCl [Propranolol HCl 160 mg PO DAILY 05/02/20 ER] Sucralfate [Carafate -] 1 gm PO QID 05/02/20 REVIEW OF SYSTEM CONSTITUTIONAL: generalized weakness Absent: fever, chills, diaphoresis, generalized weakness, malaise, loss of appetite, weight change HEENT: Absent: rhinorrhea, nasal congestion, throat pain, throat swelling, difficulty swallowing, mouth swelling, ear pain, eye pain, visual changes CARDIOVASCULAR: lightheadedness, peripheral edema Absent: chest pain, syncope, palpitations, irregular heart rate RESPIRATORY: cough, shortness of breath, dyspnea with exertion, orthopnea, Absent: wheezing, stridor, hemoptysis GASTROINTESTINAL: Absent: abdominal pain, abdominal distension, nausea, vomiting, diarrhea, constipation, melena, hematochezia GENITOURINARY: Absent: dysuria, frequency, urgency, hesitancy, hematuria, flank pain, genital pain MUSCULOSKELETAL: Absent: myalgia, arthralgia, joint swelling, back pain, neck pain SKIN: Absent: rash, itching, pallor HEMATOLOGIC/IMMUNOLOGIC: Absent: easy bleeding, easy bruising, lymphadenopathy, frequent infections ENDOCRINE: Absent: unexplained weight gain, unexplained weight loss, heat intolerance, cold intolerance NEUROLOGIC: Absent: headache, focal weakness or paresthesias, dizziness, unsteady gait, seizure, mental status changes, bladder or bowel incontinence PSYCHIATRIC: Absent: anxiety, depression, suicidal or homicidal ideation, hallucinations. PHYSICAL EXAMINATION Vital Signs - 24 hr 05/02/20 05/02/20 05/02/20 12:49 13:26 16:30 Temperature 97.7 F 97.4 F L Pulse Rate 89 88 96 H Respiratory 28 H 18 Rate Blood Pressure 134/89 159/77 O2 Sat by Pulse 96 100 Oximetry (%) 05/02/20 05/02/20 05/02/20 16:35 17:05 17:35 Temperature Pulse Rate 101 H 91 H 88 Respiratory 18 18 18 Rate Blood Pressure 146/51 L 132/68 123/61 O2 Sat by Pulse Oximetry (%) 05/02/20 05/02/20 05/02/20 18:05 18:35 19:05 Temperature Pulse Rate 82 84 86 Respiratory 18 18 18 Rate Blood Pressure 118/55 L 112/57 L 121/81 O2 Sat by Pulse Oximetry (%) 05/02/20 05/02/20 05/02/20 19:35 20:05 20:24 Temperature Pulse Rate 92 H 86 87 Respiratory 18 18 18 Rate Blood Pressure 124/56 L 114/60 125/58 L O2 Sat by Pulse Oximetry (%) GENERAL: Awake, alert, and oriented x2, in no acute distress. HEAD: Normal with no signs of trauma. EYES: Pupils equal, round and reactive to light, extraocular movements intact, sclera anicteric, conjunctiva clear. No lid lag. EARS, NOSE, THROAT: Ears normal, nares patent, oropharynx clear without exudates. Moist mucous membranes. NECK: Normal range of motion, supple without lymphadenopathy, JVD, or masses. LUNGS: Scattered coarse rhonchi with rales. No wheezes. No accessory muscle use. HEART:+ Murmur. Regular rate and rhythm, normal S1 and S2. No rub or gallop. ABDOMEN: Soft, nontender, not distended, normoactive bowel sounds, no guarding, no rebound, no masses. No hepatomegaly or splenomegaly. MUSCULOSKELETAL: Normal range of motion at all joints. No bony deformities or tenderness. No CVA tenderness. UPPER EXTREMITIES: AV Fistula- LUE +thrill. 2+ pulses, warm, well-perfused. No cyanosis. No clubbing. No peripheral edema. LOWER EXTREMITIES: +2 RLE peripheral edema. 2+ pulses, warm, well-perfused. No calf tenderness. No LLE peripheral edema. NEUROLOGICAL: Cranial nerves II-XII intact. Normal speech. Gait not observed. PSYCHIATRIC: Cooperative. Limited eye contact. Appropriate mood and affect. SKIN: Warm, dry, normal turgor, no rashes or lesions noted, normal capillary refill. Laboratory Results - last 24 hr 05/02/20 05/02/20 05/02/20 12:50 12:50 12:50 WBC 5.3 RBC 2.94 L Hgb 10.1 L Hct 31.0 L MCV 105.5 H MCH 34.5 H MCHC 32.7 RDW 23.5 H Plt Count 101 L D MPV 12.3 H D Absolute Neuts (auto) 3.9 Neutrophils % 73.6 Lymphocytes % 9.5 Monocytes % 12.2 H Eosinophils % 3.7 Basophils % 1.0 Nucleated RBC % 0 Hypochromia 0 Platelet Estimate Decreased Platelet Comment Present Polychromasia 0 Poikilocytosis 1+ Anisocytosis 3+ Microcytosis 1+ Macrocytosis 2+ Ovalocytes 1+ PT with INR 12.70 INR 1.08 PTT (Actin FS) 34.7 Sodium 135 L Potassium 8.7 H* Chloride 102 Carbon Dioxide 28 Anion Gap 4 L BUN 41.6 H Creatinine 6.0 H Est GFR (CKD-EPI)AfAm 7.42 Est GFR (CKD-EPI)NonAf 6.40 Random Glucose 72 L Calcium 8.4 L Phosphorus 4.6 Magnesium 2.7 H Total Bilirubin 0.6 AST 204 H ALT 27 Alkaline Phosphatase 93 Troponin I 0.03 B-Natriuretic Peptide Total Protein 7.6 Albumin 2.8 L Blood Type Antibody Screen 05/02/20 05/02/20 12:50 14:30 WBC RBC Hgb Hct MCV MCH MCHC RDW Plt Count MPV Absolute Neuts (auto) Neutrophils % Lymphocytes % Monocytes % Eosinophils % Basophils % Nucleated RBC % Hypochromia Platelet Estimate Platelet Comment Polychromasia Poikilocytosis Anisocytosis Microcytosis Macrocytosis Ovalocytes PT with INR INR PTT (Actin FS) Sodium 140 Potassium 4.9 Chloride 105 Carbon Dioxide 26 Anion Gap 9 BUN 40.1 H Creatinine 6.1 H Est GFR (CKD-EPI)AfAm 7.27 Est GFR (CKD-EPI)NonAf 6.27 Random Glucose 75 Calcium 8.6 Phosphorus Magnesium 2.5 H Total Bilirubin AST ALT Alkaline Phosphatase Troponin I B-Natriuretic Peptide > 23114.0 H Total Protein Albumin Blood Type Cancelled Antibody Screen Cancelled ASSESSMENT/PLAN: This is a 75 y/o female with a PMHx of ESRD (,,), CHF, Afib, CAD, HTN, HLD, COPD, Hypothyroid, Breast ca, CVA, GERD. Admitted for Pulmonary Edema, ESRD, Hyperkalemia for further evaluation of their emergent condition. Plan: See Problem List FEN Fluid Restriction 1L Replete lytes prn Renal Diet DVT ppx OOB SCDs Heparin SQ Code Status: Full Code, HCP Dispo: Requires Inpatient Care Family Medical History Family History: Unable to Obtain Problem List - Problem (1) Pulmonary edema Assessment/Plan: Likely secondary to missed dialysis Chest Xray- cardiomegaly, vascular congestion Lasix given in ED Patient received dialysis this evening, respiratory status improved Appreciate Cardiology consult BNP > 35,000 O2 Monitor CBC, CMP Continue home med Code(s): J81.1 - CHRONIC PULMONARY EDEMA Qualifiers: Chronicity: acute Qualified Code(s): J81.0 - Acute pulmonary edema (2) Fluid overload Assessment/Plan: see above Code(s): E87.70 - FLUID OVERLOAD, UNSPECIFIED Qualifiers: Hypervolemia type: unspecified Qualified Code(s): E87.70 - Fluid overload, unspecified (3) ESRD (end stage renal disease) on dialysis Assessment/Plan: ESRD- ,, Appreciate Nephrology consult for HD Management Continue home meds Avoid Nephrotoxic drugs Monitor CBC, CMP Code(s): N18.6 - END STAGE RENAL DISEASE; Z99.2 - DEPENDENCE ON RENAL DIALYSIS (4) Hyperkalemia Assessment/Plan: Likely secondary to missed Dialysis Repeat 4.9, improved Monitor CMP Code(s): E87.5 - HYPERKALEMIA (5) Anemia Assessment/Plan: stable Likely secondary to ESRD 10.1 at baseline Will transfuse if Hgb < 7.0 Monitor CBC Monitor vitals Code(s): D64.9 - ANEMIA, UNSPECIFIED (6) Atrial fibrillation Assessment/Plan: stable EKG- NSR, no ST or TWI, QTc 447, no change compared to prior study [id number] Currently not on ACs ? Fall hx Chest Xray- reviewed Monitor CBC, CMP Continue home meds with parameters Code(s): I48.91 - UNSPECIFIED ATRIAL FIBRILLATION (7) HTN (hypertension) Assessment/Plan: stable Monitor BP Continue home meds with parameters Monitor renal function Code(s): I10 - ESSENTIAL (PRIMARY) HYPERTENSION (8) COPD (chronic obstructive pulmonary disease) Assessment/Plan: Chest Xray- reviewed Albuterol MDI Dudebbibs with filter- Covid PCR pending Consider Pulmonology consult- defer to PMD Monitor vitals O2 Code(s): J44.9 - CHRONIC OBSTRUCTIVE PULMONARY DISEASE, UNSPECIFIED (9) CAD (coronary artery disease) Assessment/Plan: stable Continue home meds EKG reviewed Code(s): I25.10 - ATHSCL HEART DISEASE OF [place] CORONARY ARTERY W/O ANG PCTRS (10) HLD (hyperlipidemia) Assessment/Plan: stable Continue home med Monitor LFTs Code(s): E78.5 - HYPERLIPIDEMIA, UNSPECIFIED (11) GERD (gastroesophageal reflux disease) Assessment/Plan: stable Continue Protonix Code(s): K21.9 - GASTRO-ESOPHAGEAL REFLUX DISEASE WITHOUT ESOPHAGITIS (12) Encounter for screening laboratory testing for COVID-19 virus Assessment/Plan: SM[employer]IC FI[employer] SERVICE- 2, low risk COVID PCR-pending Maintain Strict Isolation Precautions Code(s): Z20.828 - CONTACT W AND EXPOSURE TO OTH VIRAL COMMUNICABLE DISEASES Visit type - Medication Review Med list reviewed for High Risk Meds patients 65 and older: Yes - Emergency Visit Emergency Visit: Yes ED Registration Date: 05/02/20 Care time: The patient presented to the Emergency Department on the above date and was hospitalized for further evaluation of their emergent condition. - New Patient This patient is new to me today: Yes Date on this admission: 05/02/20 - Critical Care Critical Care patient: No
[2020-05-03] MEDS ORDERED: ALBUTEROL SO4 HFA INHALER IH PRN (01:09)
--- NOTE | 2020-05-03 05:31 | HOSP ---
Subjective - Review of Symptoms Events since last encounter: Hospitalist Encounter Notified by the RN to call the radiologist instructional design manager Dr Walton regarding the patient's US on the RLE report Spoke with Dr Walton who reports ? right groin mass. He suggested a Pelvic/R- leg CT without contrast (ESRD hx) r/o mass. Order placed. Informed RN via microblog Day team to f/u Physical Examination Vital Signs: Vital Signs Temperature 97.8 F 05/02/20 22:00 Pulse Rate 88 05/02/20 22:00 Respiratory Rate 20 05/02/20 22:00 Blood Pressure 130/69 05/02/20 22:00 O2 Sat by Pulse Oximetry (%) 100 05/02/20 22:00 Labs: CBC, BMP 05/02/20 12:50 05/02/20 14:30
[2020-05-03] MEDS ORDERED: PT OWN MED DRAWER 7, Y5N ONE ×4 (09:09→21:33)
[2020-05-03 09:10] LABS: BASO % 1.3 % (0-2.0); EOS % 4.1 % (0-4.5); HEMATOCRIT 28.6 % (32.4-45.2); LYMPH % 10.3 % (8-40); MCH 33.3 pg (25.7-33.7); MCHC 31.6 g/dl (32.0-36.0); MEAN CELL VOLUME 105.3 fl (80-96); MEAN PLT VOLUME 10.2 fl (7.5-11.1); MONO % 11.7 % (3.8-10.2); NEUT % 72.6 % (42.8-82.8); PLATELET COUNT 57 K/MM3 (134-434); RBC 2.71 M/mm3 (3.60-5.2); RDW 23.1 % (11.6-15.6); WHITE BLOOD COUNT 3.8 K/mm3 (4.0-10.0)
--- NOTE | 2020-05-03 09:52 | EKG ---
Test Reason : Blood Pressure : / mmHG Vent. Rate : 091 BPM Atrial Rate : 086 BPM P-R Int : 000 ms QRS Dur : 086 ms QT Int : 364 ms P-R-T Axes : 000 -14 178 degrees QTc Int : 447 ms ATRIAL FIBRILLATION NONSPECIFIC T WAVE ABNORMALITY ABNORMAL ECG WHEN COMPARED WITH ECG OF 08-APR-2020 09:41, QT HAS SHORTENED Confirmed by MD Belcher Daniel ([id number]) on 05/03/2020 9:51:49 AM Referred By: Confirmed By:Quinn Belcher MD
[2020-05-03 09:54] LABS: ALBUMIN 2.9 g/dl (3.4-5.0); BILIRUBIN,TOTAL 1.1 mg/dL (0.2-1); BLOOD UREA NITROGEN 16.9 mg/dL (7-18); CALCIUM 8.1 mg/dL (8.5-10.1); CREATININE 3.4 mg/dL (0.55-1.3); TOT PROT 6.6 g/dl (6.4-8.2)
[2020-05-03 10:00] LABS: POTASSIUM 2.9 mmol/L (3.5-5.1)
[2020-05-03] MEDS ORDERED: BROMFENAC SODIUM OU SCH (10:00)
--- NOTE | 2020-05-03 10:42 | PN ---
Progress Note, Physician Chief Complaint: SOB Right inguinal mass Hyperkalemia Hypokalemia History of Present Illness: This is a 75 y/o female from [facility] with a PMHx of ESRD (,,), CHF, Afib, CAD, HTN, HLD, COPD, Hypothyroid, Breast Ca, CVA, GERD. Who presents to the ED for SOB, patient missed her dialysis session today. Patient denies CP, palpitations. Patient denies fever, chills, cough, TAM, dizziness, AP, N/V/D. NAD Denies any SOB at this time - Current Medication List Current Medications: Active Medications Albuterol Sulfate (Ventolin Hfa Inhaler -) 2 puff IH Q4H PRN PRN Reason: SHORT OF BREATH/WHEEZING Last Admin: 05/03/20 06:04 Dose: 2 puff Documented by: Aripiprazole (Abilify) 30 mg PO DAILY ONEY[facility] Atorvastatin Calcium (Lipitor -) 10 mg PO HS ONEYDA Febuxostat (Uloric -) 40 mg PO DAILY [facility] Sodium Chloride (Normal Saline -) 250 mls @ 3,000 mls/hr IV PRN PRN PRN Reason: Hypotension during Dialysis Stop: 05/03/20 15:00 Potassium Chloride (Potassium Chloride 10 Meq Premix Ivpb -) 10 meq in 100 mls @ 100 mls/hr IVPB Q60M ONE[facility] Stop: 05/03/20 12:29 Influenza Virus Vaccine (Flulaval Quad 8986-3990 Syr) 60 mcg IM .ONCE ONE Stop: 05/03/20 09:30 Multivitamins/Minerals/Vitamin C (Tab-A-Vit -) 1 tab PO DAILY [facility] Non-Formulary Medication (Bromfenac Sodium [Prolensa]) 1 drop OU BID [facility] Pantoprazole Sodium (Protonix -) 40 mg PO DAILY [facility] Quetiapine Fumarate (Seroquel -) 100 mg PO HS [facility] Sevelamer Carbonate (Renvela -) 800 mg PO DAILY [facility] Sucralfate (Carafate -) 1 gm PO QID [facility] - Objective Vital Signs: Vital Signs Temperature 97.1 F L 05/03/20 09:28 Pulse Rate 105 H 05/03/20 09:28 Respiratory Rate 18 05/03/20 09:28 Blood Pressure 114/59 L 05/03/20 09:28 O2 Sat by Pulse Oximetry (%) 100 05/03/20 09:28 Constitutional: Yes: Well Nourished, No Distress, Calm Cardiovascular: Yes: Regular Rate and Rhythm Respiratory: Yes: Regular, CTA Bilaterally Gastrointestinal: Yes: Normal Bowel Sounds, Soft Genitourinary: Yes: Oliguria Musculoskeletal: Yes: Muscle Weakness Extremities: Yes: WNL Edema: No Peripheral Pulses WNL: Yes Integumentary: Yes: Other (Right inguinal cystic mass palpable) Neurological: Yes: Alert, Oriented Psychiatric: Yes: Alert, Oriented Labs: CBC, BMP 05/03/20 08:00 05/03/20 08:00 INR, PTT INR 1.08 (0.83-1.09) 05/02/20 12:50 Problem List - Problems (1) CHF exacerbation Assessment/Plan: -Dialysis as per nephrology -Nasal O2 PRN to keep SpO2>90% Problems reviewed: Yes Code(s): I50.9 - HEART FAILURE, UNSPECIFIED (2) Inguinal cyst Assessment/Plan: -Surgical consult Problems reviewed: Yes Code(s): [id number] - (3) Hypokalemia Assessment/Plan: -KCL IV 10 meq x 2 -Dialysis -Monitor labs Problems reviewed: Yes Code(s): E87.6 - HYPOKALEMIA (4) COPD (chronic obstructive pulmonary disease) Problems reviewed: Yes Code(s): J44.9 - CHRONIC OBSTRUCTIVE PULMONARY DISEASE, UNSPECIFIED (5) ESRD (end stage renal disease) on dialysis Problems reviewed: Yes Code(s): N18.6 - END STAGE RENAL DISEASE; Z99.2 - DEPENDENCE ON RENAL DIALYSIS (6) Hyperkalemia Assessment/Plan: -resolved Problems reviewed: Yes Code(s): E87.5 - HYPERKALEMIA Assessment/Plan See problem list
[2020-05-03] MEDS ORDERED: SODIUM CHLORIDE 250 ML IV PRN ×3 (11:09→11:50)
[2020-05-03] MEDS: SUCRALFATE 1 GM TABLET (FP) PO SCH ×4 (11:26→21:31)
[2020-05-03] MEDS: KCL 10 MEQ IVPB 10 MEQ/100 ML INFUS.BAG IVPB SCH ×2 (11:26→12:36)
[2020-05-03] MEDS: MULTIVITAMINS (DAILY MVI) TABLET (FP) PO SCH (11:27)
[2020-05-03] MEDS: PANTOPRAZOLE 40 MG TABLET PO SCH (11:27)
--- NOTE | 2020-05-03 11:47 | CON.NEP ---
Consult Consult Specialty:: Nephrology Referred by:: ED Reason for Consultation:: ESRD on HD with volume overload - History of Present Illness Chief Complaint: Shortness of breath History of Present Illness: This is a 75 year old woman with history of ESRD on HD (TTS), CHF, atrial fibrillation, CAD, hypertension, hyperlipidemia, Bipolar disorder, Breat Ca, CVA who presented from [place] with shortness of breath and found to have acute HF/volume overload. Seen and examined at the bedside. S/p urgent dialysis yesterday with 3L UF. PT reports feeling better but shortness of breath persists although it is improved. No chest pain, fever, chills, N/V/D. Las right leg swelling that is chronic. 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: Other (restless legs syndrome) Cardio/Vascular: Yes: AFIB, CAD (nonobstructuve), HTN, Hyperlipdemia Pulmonary: Yes: COPD Gastrointestinal: Yes: GERD, Peptic Ulcer Disease, Other (pud, pancreatic insufficiency) Renal/: Yes: Renal Failure, Hemodialysis ...LMP: 04/08/20 Psych: Yes: Bipolar, Other Musculoskeletal: Yes: Chronic low back pain Endocrine: Yes: Hypothyroidism - Past Surgical History Past Surgical History: Yes: Appendectomy, Tonsillectomy - Smoking History Smoking history: Unknown if ever smoked Have you smoked in the past 12 months: No - Social History Usual Living Arrangement: Halfway ADL: Support Services History of Recent Travel: No Home Medications - Allergies Allergies/Adverse Reactions: Allergies Allergy/AdvReac Type Severity Reaction Status Date / Time ciprofloxacin Allergy Verified 04/08/20 09:39 denosumab Allergy Verified 04/08/20 09:39 gabapentin Allergy Verified 04/08/20 09:39 levofloxacin Allergy Verified 04/08/20 09:39 NSAIDS (Non-Steroidal Allergy Verified 04/08/20 09:39 Anti-Inflamma sulfamethoxazole Allergy Verified 04/08/20 09:39 trimethoprim Allergy Verified 04/08/20 09:39 tape AdvReac Uncoded 04/08/20 09:39 - Home Medications Home Medications: Ambulatory Orders Acetaminophen [Non-Aspirin Extra Strength] 1,000 mg PO BID 04/08/20 Aripiprazole 30 mg PO DAILY 04/08/20 Febuxostat [Uloric -] 40 mg PO DAILY 04/08/20 Furosemide 80 mg PO DAILY 04/08/20 Multivitamin 1 each PO DAILY 04/08/20 Pravastatin Sodium [Pravachol -] 40 mg PO HS 04/08/20 Quetiapine Fumarate [Seroquel -] 100 mg PO HS 04/08/20 Sevelamer Carbonate 800 mg PO DAILY 04/08/20 Acetaminophen [Tylenol .Regular Strength -] 650 mg PO Q6H PRN tablet 04/17/20 Pantoprazole Sodium [Protonix -] 40 mg PO DAILY tablet.ec 04/17/20 Simethicone [Mylicon -] 80 mg PO QID PRN tab.chew 04/17/20 Albuterol 2.5/Ipratropium 0.5 [Duoneb -] 1 neb IH QID 05/02/20 Amlodipine Besylate [Norvasc -] 10 mg PO DAILY 05/02/20 Bromfenac Sodium [Prolensa] 1 drop OU BID 05/02/20 Folic Acid 0.8 mg PO DAILY 05/02/20 Propranolol HCl [Propranolol HCl ER] 160 mg PO DAILY 05/02/20 Sucralfate [Carafate -] 1 gm PO QID 05/02/20 Family Medical History Family History: Unremarkable Family Hx Cancer: Father (lung) Family Hx Diabetes: Father Review of Systems - Review of Systems Constitutional: reports: No Symptoms Eyes: reports: No Symptoms HENT: reports: No Symptoms Neck: reports: No Symptoms Cardiovascular: reports: Edema, Shortness of Breath. denies: Chest Pain, Palpitations Respiratory: reports: SOB, SOB on Exertion. denies: Hemoptysis, Orthopnea, Wheezing Gastrointestinal: reports: No Symptoms Genitourinary: reports: No Symptoms Musculoskeletal: reports: No Symptoms Integumentary: reports: No Symptoms Neurological: reports: No Symptoms Endocrine: reports: No Symptoms Nephrology Consult - Height Height: 5 ft 2 in - Weight Weight: 67.404 kg - BMI Body Mass Index (BMI): 27.1 - Lab Results CBC,BMP: CBC, BMP 05/03/20 08:00 05/03/20 08:00 Anion Gap: Anion Gap Anion Gap 7 MMOL/L (8-16) L 05/03/20 08:00 - Imaging Chest X-ray: Report Reviewed - Physical Examination Vital Signs: Vital Signs Temperature 97.1 F L 05/03/20 09:28 Pulse Rate 105 H 05/03/20 09:28 Respiratory Rate 18 05/03/20 09:28 Blood Pressure 114/59 L 05/03/20 09:28 O2 Sat by Pulse Oximetry (%) 100 05/03/20 09:28 Constitutional: Yes: No Distress, Calm HENT: Yes: Atraumatic Neck: Yes: Supple Cardiovascular: Yes: Regular Rate and Rhythm Respiratory: Yes: Regular, Diminished, On Nasal O2, Rales Gastrointestinal: Yes: Soft. No: Tenderness Extremities: No: Cyanosis Edema: Yes Edema: LLE: Trace, RLE: 2+ Neurological: Yes: Alert Assessment/Plan 75 year old woman with history of ESRD on HD (TTS), CHF, atrial fibrillation, CAD, hypertension, hyperlipidemia, Bipolar disorder, Breat Ca, CVA who presented from [place] with shortness of breath and found to have acute HF/volume overload. 1. ESRD on HD 2. Fluid overload 3. CHF 4. CAD 5. Hypertension 6. Hyperlipidemia 7. Bipolar disorder 8. Hypokalemia 9. Inguinal mass S/p urgent dialysis yesterday with improvement in respiratory symptoms. will plan for additional UF today and then resume TTS schedule tomorrow. Low sodium diet and 1.2L fluid restriction. Give IV potassium as K < 3. Repeat BMP before dialysis. Cardiology follow up. Inguinal mass/cystic lesion noted on US, ? etiology and need for work up. Thank you Ehsan Romero DO
[2020-05-03] MEDS ORDERED: FLU VACCINE (FLULAVAL) PF 60 MCG/0.5 ML SYRINGE 2020-2021 IM ONE (14:30)
[2020-05-03 16:09] LABS: BLOOD UREA NITROGEN 20.9 mg/dL (7-18); CALCIUM 7.9 mg/dL (8.5-10.1); CREATININE 3.9 mg/dL (0.55-1.3); POTASSIUM 3.2 mmol/L (3.5-5.1)
[2020-05-03] MEDS: ARIPiprazole 15 MG TABLET PO SCH (18:33)
[2020-05-03] MEDS: FEBUXOSTAT 40 MG TAB PO SCH (18:33)
[2020-05-03] MEDS: ATORVASTATIN CA 10 MG TABLET (FP) PO SCH (21:31)
[2020-05-03] MEDS: QUEtiapine FUMARATE 100 MG TABLET (FP) PO SCH (23:14)
--- NOTE | 2020-05-04 10:30 | CONSULT ---
- Consultation REQUESTING PROVIDER: Gosia Castle FIBERGLASSER CONSULT REQUEST: We have been asked to surgically evaluate this patient for evaluation and management of a soft tissue mass of the right groin. 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 She has never had any invasive procedures in that area. PMHx: HLD/ESRD on HD/HTN/COPD PSHx: dialysis access Home Medications Medication Instructions Recorded Acetaminophen [Non-Aspirin Extra 1,000 mg PO BID 04/08/20 Strength] Aripiprazole 30 mg PO DAILY 04/08/20 Febuxostat [Uloric -] 40 mg PO DAILY 04/08/20 Furosemide 80 mg PO DAILY 04/08/20 Multivitamin 1 each PO DAILY 04/08/20 Pravastatin Sodium [Pravachol -] 40 mg PO HS 04/08/20 Quetiapine Fumarate [Seroquel -] 100 mg PO HS 04/08/20 Sevelamer Carbonate 800 mg PO DAILY 04/08/20 Acetaminophen [Tylenol .Regular 650 mg PO Q6H PRN tablet 04/17/20 Strength -] Pantoprazole Sodium [Protonix -] 40 mg PO DAILY tablet.ec 04/17/20 Simethicone [Mylicon -] 80 mg PO QID PRN tab.chew 04/17/20 Albuterol 2.5/Ipratropium 0.5 1 neb IH QID 05/02/20 [Duoneb -] Amlodipine Besylate [Norvasc -] 10 mg PO DAILY 05/02/20 Bromfenac Sodium [Prolensa] 1 drop OU BID 05/02/20 Folic Acid 0.8 mg PO DAILY 05/02/20 Propranolol HCl [Propranolol HCl 160 mg PO DAILY 05/02/20 ER] Sucralfate [Carafate -] 1 gm PO QID 05/02/20 Allergies Allergy/AdvReac Type Severity Reaction Status Date / Time ciprofloxacin Allergy Verified 04/08/20 09:39 denosumab Allergy Verified 04/08/20 09:39 gabapentin Allergy Verified 04/08/20 09:39 levofloxacin Allergy Verified 04/08/20 09:39 NSAIDS (Non-Steroidal Allergy Verified 04/08/20 09:39 Anti-Inflamma sulfamethoxazole Allergy Verified 04/08/20 09:39 trimethoprim Allergy Verified 04/08/20 09:39 tape AdvReac Uncoded 04/08/20 09:39 REVIEW OF SYSTEMS: CONSTITUTIONAL: Absent: fever, chills, diaphoresis, generalized weakness, malaise, loss of appetite, weight change CARDIOVASCULAR: Absent: chest pain, syncope, palpitations, irregular heart rate, lightheadedness, peripheral edema RESPIRATORY: Absent: cough, shortness of breath, dyspnea with exertion, wheezing, stridor, hemoptysis GASTROINTESTINAL: Absent: abdominal pain, abdominal distension, nausea, vomiting, diarrhea, constipation, melena, hematochezia GENITOURINARY: Absent: dysuria, frequency, urgency, hesitancy, hematuria, flank pain, genital pain MUSCULOSKELETAL: Absent: myalgia, arthralgia, joint swelling, back pain, neck pain SKIN: Absent: rash, itching, pallor HEMATOLOGIC/IMMUNOLOGIC: Absent: easy bleeding, easy bruising, lymphadenopathy NEUROLOGIC: Absent: headache, focal weakness, paresthesias, dizziness, unsteady gait, seizure, mental status changes, bladder or bowel incontinence PSYCHIATRIC: Absent: anxiety, depression, suicidal or homicidal ideation, hallucinations. PHYSICAL EXAM: GENERAL: Awake, alert, and fully oriented, in no acute distress. HEAD: Normal with no signs of trauma. EYES: sclera anicteric, conjunctiva clear. NECK: Normal ROM, supple without lymphadenopathy, JVD, or masses. ABDOMEN: Soft, nontender, not distended, normoactive bowel sounds, no guarding, no rebound, no masses. No organomegaly. MUSCULOSKELETAL: Normal ROM at all joints. No bony deformities or tenderness. No CVA tenderness. UPPER EXTREMITIES: 2+ pulses, warm, well-perfused. No cyanosis. Cap refill <2 seconds. No peripheral edema. LOWER EXTREMITIES: 2+ pulses, warm, well-perfused. No calf tenderness. No per ipheral edema. NEUROLOGICAL: Normal speech, gait not observed. PSYCH: Cooperative. Good eye contact. Appropriate mood and affect. SKIN: Warm, dry, normal turgor, no rashes or lesions noted. There is a well delineated soft tissue mass below the right inguinal ligament; overlying skin is normal w/r/t/t/t/and color; it is ~ 15 cm. in greatest dimension and not ttp; it is not clinically c/w a femoral henia; it is ballotable and o/w negative.. Vital Signs Temperature 97.8 F 05/04/20 06:00 Pulse Rate 88 05/04/20 06:00 Respiratory Rate 18 05/04/20 06:00 Blood Pressure 120/61 05/04/20 06:00 O2 Sat by Pulse Oximetry (%) 99 05/04/20 06:00 Lab Results WBC 3.8 K/mm3 (4.0-10.0) L 05/03/20 08:00 RBC 2.71 M/mm3 (3.60-5.2) L 05/03/20 08:00 Hgb 9.0 GM/dL (10.7-15.3) L 05/03/20 08:00 Hct 28.6 % (32.4-45.2) L 05/03/20 08:00 MCV 105.3 fl (80-96) H 05/03/20 08:00 MCHC 31.6 g/dl (32.0-36.0) L 05/03/20 08:00 RDW 23.1 % (11.6-15.6) H 05/03/20 08:00 Plt Count 57 K/MM3 (134-434) L D 05/03/20 08:00 INR 1.08 (0.83-1.09) 05/02/20 12:50 Sodium 142 mmol/L (136-145) 05/03/20 14:45 Potassium 3.2 mmol/L (3.5-5.1) L 05/03/20 14:45 Chloride 103 mmol/L (98-107) 05/03/20 14:45 Carbon Dioxide 31 mmol/L (21-32) 05/03/20 14:45 Anion Gap 7 MMOL/L (8-16) L 05/03/20 14:45 BUN 20.9 mg/dL (7-18) H 05/03/20 14:45 Creatinine 3.9 mg/dL (0.55-1.3) H 05/03/20 14:45 Random Glucose 81 mg/dL (74-106) 05/03/20 14:45 Calcium 7.9 mg/dL (8.5-10.1) L 05/03/20 14:45 Blood Type Cancelled 05/02/20 12:50 Antibody Screen Cancelled 05/02/20 12:50 Imaging w/u reviewed IMP: right upper thigh/groin soft tissue mass; ? post traumatic in nature and ? resolving hematoma/seroma. PLAN: Would continue to observe and f/u w/imaging as an outpatient; no operative intervention is indicated at this time. Hal Drake MD FACS
[2020-05-04 10:33] LABS: MCH 33.8 pg (25.7-33.7); MCHC 32.2 g/dl (32.0-36.0); MEAN CELL VOLUME 105.2 fl (80-96); MEAN PLT VOLUME 10.5 fl (7.5-11.1); PLATELET COUNT 53 K/MM3 (134-434); RBC 2.66 M/mm3 (3.60-5.2); RDW 22.6 % (11.6-15.6); WHITE BLOOD COUNT 3.1 K/mm3 (4.0-10.0)
[2020-05-04 10:57] LABS: BLOOD UREA NITROGEN 30.5 mg/dL (7-18); CALCIUM 8.4 mg/dL (8.5-10.1); PHOSPHOROUS 3.2 mg/dL (2.5-4.9); POTASSIUM 3.1 mmol/L (3.5-5.1)
--- NOTE | 2020-05-04 11:15 | PN ---
Progress Note, Physician Chief Complaint: SOB Right inguinal mass Hyperkalemia Hypokalemia History of Present Illness: This is a 75 y/o female from [facility] with a PMHx of ESRD (,,), CHF, Afib, CAD, HTN, HLD, COPD, Hypothyroid, Breast Ca, CVA, GERD. Who presents to the ED for SOB, patient missed her dialysis session today. Patient denies CP, palpitations. Patient denies fever, chills, cough, TAM, dizziness, AP, N/V/D. NAD, seen in dialysis Denies any SOB at this time K at 3.1 hemolyzed - Current Medication List Current Medications: Active Medications Albuterol Sulfate (Ventolin Hfa Inhaler -) 2 puff IH Q4H PRN PRN Reason: SHORT OF BREATH/WHEEZING Last Admin: 05/03/20 06:04 Dose: 2 puff Documented by: Aripiprazole (Abilify) 30 mg PO DAILY [facility] Last Admin: 05/03/20 18:33 Dose: 30 mg Documented by: Atorvastatin Calcium (Lipitor -) 10 mg PO HS [facility] Last Admin: 05/03/20 21:31 Dose: 10 mg Documented by: Febuxostat (Uloric -) 40 mg PO DAILY [facility] Last Admin: 05/03/20 18:33 Dose: 40 mg Documented by: Sodium Chloride (Normal Saline -) 250 mls @ 3,000 mls/hr IV PRN PRN PRN Reason: Hypotension during Dialysis Stop: 05/04/20 11:09 Sodium Chloride (Normal Saline -) 250 mls @ 3,000 mls/hr IV PRN PRN PRN Reason: Hypotension during Dialysis Stop: 05/04/20 11:50 Sodium Chloride (Normal Saline -) 250 mls @ 3,000 mls/hr IV PRN PRN PRN Reason: Hypotension during Dialysis Stop: 05/04/20 11:51 Multivitamins/Minerals/Vitamin C (Tab-A-Vit -) 1 tab PO DAILY [facility] Last Admin: 05/03/20 11:27 Dose: 1 tab Documented by: Non-Formulary Medication (Bromfenac Sodium [Prolensa]) 1 drop OU BID [facility] Pantoprazole Sodium (Protonix -) 40 mg PO DAILY [facility] Last Admin: 05/03/20 11:27 Dose: 40 mg Documented by: Quetiapine Fumarate (Seroquel -) 100 mg PO HS [facility] Last Admin: 05/03/20 23:14 Dose: 100 mg Documented by: Sevelamer Carbonate (Renvela -) 800 mg PO DAILY [facility] Sucralfate (Carafate -) 1 gm PO QID [facility] Last Admin: 05/03/20 21:31 Dose: 1 gm Documented by: - Objective Vital Signs: Vital Signs Temperature 98.4 F 05/04/20 09:00 Pulse Rate 60 05/04/20 11:00 Respiratory Rate 18 05/04/20 11:00 Blood Pressure 120/62 05/04/20 11:00 O2 Sat by Pulse Oximetry (%) 99 05/04/20 06:00 Constitutional: Yes: Well Nourished, No Distress, Calm Cardiovascular: Yes: Regular Rate and Rhythm Respiratory: Yes: Regular, CTA Bilaterally Gastrointestinal: Yes: Normal Bowel Sounds, Soft Genitourinary: Yes: Oliguria Musculoskeletal: Yes: Muscle Weakness Extremities: Yes: WNL Edema: No Peripheral Pulses WNL: Yes Neurological: Yes: Alert, Oriented Psychiatric: Yes: Alert, Oriented Labs: CBC, BMP 05/04/20 10:00 05/04/20 10:00 INR, PTT INR 1.08 (0.83-1.09) 05/02/20 12:50 Problem List - Problems (1) CHF exacerbation Assessment/Plan: -Dialysis as per nephrology -Nasal O2 PRN to keep SpO2>90% -Cardiology consult Problems reviewed: Yes Code(s): I50.9 - HEART FAILURE, UNSPECIFIED (2) Inguinal cyst Assessment/Plan: -Surgical consult -No operative intervention needed at this time -F/U imaging outpatient Problems reviewed: Yes Code(s): ZPV0921 - (3) Hypokalemia Assessment/Plan: -Repeat labs in AM -Dialysis Problems reviewed: Yes Code(s): E87.6 - HYPOKALEMIA (4) COPD (chronic obstructive pulmonary disease) Assessment/Plan: -Pulmonary consult -COVID 19 PCR negative -Nasal O2 to keep SpO2>90% -Bronchodilators Problems reviewed: Yes Code(s): J44.9 - CHRONIC OBSTRUCTIVE PULMONARY DISEASE, UNSPECIFIED (5) ESRD (end stage renal disease) on dialysis Problems reviewed: Yes Code(s): N18.6 - END STAGE RENAL DISEASE; Z99.2 - DEPENDENCE ON RENAL DIALYSIS (6) Hyperkalemia Assessment/Plan: -resolved Problems reviewed: Yes Code(s): E87.5 - HYPERKALEMIA Assessment/Plan See problem list
--- NOTE | 2020-05-04 12:02 | CON.CARD ---
Consult Consult Specialty:: Cardiology Consult - History of Present Illness Chief Complaint: CHF History of Present Illness: This is a 75 year old female from the [facility] with a PMH of ESRD on dialysis, CHF, AFIB (not on AC secondary to falls), COPD, past and CVA's. She presents to the ED for SOB. Her usual dialysis days are Friday, , and Friday, however she missed her dialysis session today. BNP is >29650. S/p urgent dialysis yesterday with improvement in respiratory symptoms. Chronic right lower extremity edema. CXR with congestive changes. EKG AFIB at 91 BPM with normal QRS intervals, normal QRS axis, and NSSTTW changes. 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: Other (restless legs syndrome) Cardio/Vascular: Yes: AFIB, CAD (nonobstructuve), HTN, Hyperlipdemia Pulmonary: Yes: COPD Gastrointestinal: Yes: GERD, Peptic Ulcer Disease, Other (pud, pancreatic insufficiency) Renal/: Yes: Renal Failure, Hemodialysis ...LMP: 04/08/20 Psych: Yes: Bipolar, Other Musculoskeletal: Yes: Chronic low back pain Endocrine: Yes: Hypothyroidism - Past Surgical History Past Surgical History: Yes: Appendectomy, Tonsillectomy - Smoking History Smoking history: Unknown if ever smoked Have you smoked in the past 12 months: No - Social History Usual Living Arrangement: Custodial ADL: Support Services History of Recent Travel: No Home Medications - Allergies Allergies/Adverse Reactions: Allergies Allergy/AdvReac Type Severity Reaction Status Date / Time ciprofloxacin Allergy Verified 04/08/20 09:39 denosumab Allergy Verified 04/08/20 09:39 gabapentin Allergy Verified 04/08/20 09:39 levofloxacin Allergy Verified 04/08/20 09:39 NSAIDS (Non-Steroidal Allergy Verified 04/08/20 09:39 Anti-Inflamma sulfamethoxazole Allergy Verified 04/08/20 09:39 trimethoprim Allergy Verified 04/08/20 09:39 tape AdvReac Uncoded 04/08/20 09:39 - Home Medications Home Medications: Ambulatory Orders Acetaminophen [Non-Aspirin Extra Strength] 1,000 mg PO BID 04/08/20 Aripiprazole 30 mg PO DAILY 04/08/20 Febuxostat [Uloric -] 40 mg PO DAILY 04/08/20 Furosemide 80 mg PO DAILY 04/08/20 Multivitamin 1 each PO DAILY 04/08/20 Pravastatin Sodium [Pravachol -] 40 mg PO HS 04/08/20 Quetiapine Fumarate [Seroquel -] 100 mg PO HS 04/08/20 Sevelamer Carbonate 800 mg PO DAILY 04/08/20 Acetaminophen [Tylenol .Regular Strength -] 650 mg PO Q6H PRN tablet 04/17/20 Pantoprazole Sodium [Protonix -] 40 mg PO DAILY tablet.ec 04/17/20 Simethicone [Mylicon -] 80 mg PO QID PRN tab.chew 04/17/20 Albuterol 2.5/Ipratropium 0.5 [Duoneb -] 1 neb IH QID 05/02/20 Amlodipine Besylate [Norvasc -] 10 mg PO DAILY 05/02/20 Bromfenac Sodium [Prolensa] 1 drop OU BID 05/02/20 Folic Acid 0.8 mg PO DAILY 05/02/20 Propranolol HCl [Propranolol HCl ER] 160 mg PO DAILY 05/02/20 Sucralfate [Carafate -] 1 gm PO QID 05/02/20 Family Medical History Family History: Unremarkable Family Hx Cancer: Father (lung) Family Hx Diabetes: Father Vital Signs: Vital Signs Temperature 98.2 F 05/04/20 10:00 Pulse Rate 60 05/04/20 11:00 Respiratory Rate 18 05/04/20 11:00 Blood Pressure 120/62 05/04/20 11:00 O2 Sat by Pulse Oximetry (%) 92 L 05/04/20 10:00 Constitutional: Yes: No Distress HENT: Yes: WNL Neck: Yes: WNL Respiratory: Yes: Rales (basilar) Gastrointestinal: Yes: Soft Cardiovascular: Yes: Pulse Irregular Heart Sounds: Yes: S1, S2 Extremities: Yes: Other (Chronic right LE edema noted) - Other Data Labs, Other Data: CBC, BMP 05/04/20 10:00 05/04/20 10:00 INR, PTT INR 1.08 (0.83-1.09) 05/02/20 12:50 Assessment/Plan 75 year old female from the [facility] with a PMH of ESRD on dialysis, CHF, AFIB (not on AC secondary to falls), COPD, past and CVA's. She presents to the ED for SOB. Her usual dialysis days are Friday, , and Friday, however she missed her dialysis session today. BNP is >96205. S/p urgent dialysis yesterday with improvement in respiratory symptoms. Chronic right lower extremity edema. CXR with congestive changes. EKG AFIB at 91 BPM with normal QRS intervals, normal QRS axis, and NSSTTW changes. CHF Secondary to fluid overload and significantly improved after receiving dialysis. Additional UF is planned by renal and this should help as well. No recent Echocardiogram, would obtain an Echo. Presently her vitals are good, 120/62 mmHg, HR 60 BPM No AC secondary to frequent falling Continue statin for secondary prevention Trops negative x1
[2020-05-04] MEDS ORDERED: PT OWN MED DRAWER 7, Y5N ONE ×2 (13:22→22:30)
[2020-05-04] MEDS: PANTOPRAZOLE 40 MG TABLET PO SCH (13:25)
[2020-05-04] MEDS: SUCRALFATE 1 GM TABLET (FP) PO SCH ×3 (13:25→22:51)
[2020-05-04] MEDS: MULTIVITAMINS (DAILY MVI) TABLET (FP) PO SCH (13:25)
[2020-05-04] MEDS: FEBUXOSTAT 40 MG TAB PO SCH (13:26)
[2020-05-04] MEDS: ARIPiprazole 15 MG TABLET PO SCH (13:26)
--- NOTE | 2020-05-04 13:26 | PN ---
Progress Note, Physician History of Present Illness: Seen and examined at the bedside on dialysis currently BP 120/60, UF goal is 2L AVF functioning well no sob, cp, abdominal pain reports having some anxiety/disorientation last night - Current Medication List Current Medications: Active Medications Albuterol Sulfate (Ventolin Hfa Inhaler -) 2 puff IH Q4H PRN PRN Reason: SHORT OF BREATH/WHEEZING Last Admin: 05/03/20 06:04 Dose: 2 puff Documented by: Aripiprazole (Abilify) 30 mg PO DAILY [facility] Last Admin: 05/03/20 18:33 Dose: 30 mg Documented by: Atorvastatin Calcium (Lipitor -) 10 mg PO HS [facility] Last Admin: 05/03/20 21:31 Dose: 10 mg Documented by: Diphenhydramine HCl (Benadryl -) 25 mg PO HS PRN PRN Reason: INSOMNIA Febuxostat (Uloric -) 40 mg PO DAILY [facility] Last Admin: 05/03/20 18:33 Dose: 40 mg Documented by: Sodium Chloride (Normal Saline -) 250 mls @ 3,000 mls/hr IV PRN PRN PRN Reason: Hypotension during Dialysis Stop: 05/04/20 11:09 Sodium Chloride (Normal Saline -) 250 mls @ 3,000 mls/hr IV PRN PRN PRN Reason: Hypotension during Dialysis Stop: 05/04/20 11:50 Sodium Chloride (Normal Saline -) 250 mls @ 3,000 mls/hr IV PRN PRN PRN Reason: Hypotension during Dialysis Stop: 05/04/20 11:51 Multivitamins/Minerals/Vitamin C (Tab-A-Vit -) 1 tab PO DAILY [facility] Last Admin: 05/03/20 11:27 Dose: 1 tab Documented by: Non-Formulary Medication (Bromfenac Sodium [Prolensa]) 1 drop OU BID [facility] Pantoprazole Sodium (Protonix -) 40 mg PO DAILY [facility] Last Admin: 05/03/20 11:27 Dose: 40 mg Documented by: Quetiapine Fumarate (Seroquel -) 100 mg PO HS [facility] Last Admin: 05/03/20 23:14 Dose: 100 mg Documented by: Sevelamer Carbonate (Renvela -) 800 mg PO DAILY [facility] Sucralfate (Carafate -) 1 gm PO QID [facility] Last Admin: 05/03/20 21:31 Dose: 1 gm Documented by: - Objective Vital Signs: Vital Signs Temperature 98.2 F 05/04/20 10:00 Pulse Rate 60 05/04/20 13:15 Respiratory Rate 18 05/04/20 13:15 Blood Pressure 128/64 05/04/20 13:15 O2 Sat by Pulse Oximetry (%) 92 L 05/04/20 10:00 Constitutional: Yes: No Distress, Calm HENT: Yes: Atraumatic Neck: Yes: Supple Respiratory: Yes: Regular Gastrointestinal: Yes: Soft Extremities: No: Cold, Cool, Cyanosis Edema: No Neurological: Yes: Alert Labs: CBC, BMP 05/04/20 10:00 05/04/20 10:00 INR, PTT INR 1.08 (0.83-1.09) 05/02/20 12:50 Assessment/Plan 75 year old woman with history of ESRD on HD (TTS), CHF, atrial fibrillation, CAD, hypertension, hyperlipidemia, Bipolar disorder, Breat Ca, CVA who presented [place] with shortness of breath and found to have acute HF/volume overload. 1. ESRD on HD 2. Fluid overload 3. CHF 4. CAD 5. Hypertension 6. Hyperlipidemia 7. Bipolar disorder 8. Hypokalemia 9. Inguinal mass Tolerating dialysis well this AM had isolated ultrafiltration yesterday. Clinically improved as pt is no longer short of breath. next planned dialysis in Friday Low sodium diet and 1.2L fluid restriction. Can repeat K levels this afternoon ~2-3 hours after completion of dialysis Surgery noted appreciated, outpatient follow up of inguinal mass discharge planning as per primary team. Thank you Ehsan Romero DO
[2020-05-04] MEDS ORDERED: SIMETHICONE 80 MG TAB.CHEW (FP) PO PRN (14:30)
[2020-05-04] MEDS: SEVELAMER CARBONATE 800 MG TAB (FP) PO SCH ×3 (15:47→16:52)
[2020-05-04 16:07] VITALS: BMI 25.6
[2020-05-04] MEDS: amLODIPine BESYLATE 5 MG TABLET (FP) PO SCH (16:52)
[2020-05-04] MEDS: ALBUTEROL SO4 2.5/IPRATROPIUM 0.5 INH SOL 3 ML VIAL.NEB. NEB SCH ×2 (17:07→22:03)
[2020-05-04] MEDS ORDERED: diphenhydrAMINE HCL 25 MG CAPSULE (FP) PO PRN (22:00)
[2020-05-04] MEDS: ATORVASTATIN CA 10 MG TABLET (FP) PO SCH (22:51)
[2020-05-04] MEDS: QUEtiapine FUMARATE 100 MG TABLET (FP) PO SCH (22:51)
[2020-05-05] MEDS: SEVELAMER CARBONATE 800 MG TAB (FP) PO SCH ×2 (06:16→11:00)
[2020-05-05] MEDS ORDERED: ALBUTEROL SO4 2.5/IPRATROPIUM 0.5 INH SOL 3 ML VIAL.NEB. NEB SCH (08:29)
[2020-05-05 09:13] LABS: BLOOD UREA NITROGEN 16.1 mg/dL (7-18); CALCIUM 8.6 mg/dL (8.5-10.1); CREATININE 3.2 mg/dL (0.55-1.3)
--- NOTE | 2020-05-05 10:49 | DS ---
Physical Examination Vital Signs: Vital Signs Temperature 97.8 F 05/05/20 06:00 Pulse Rate 88 05/05/20 06:00 Respiratory Rate 18 05/05/20 06:00 Blood Pressure 131/57 L 05/05/20 06:00 O2 Sat by Pulse Oximetry (%) 99 05/05/20 06:00 Findings/Remarks: This is a 75 y/o female from [facility] with a PMHx of ESRD (,,), CHF, Afib, CAD, HTN, HLD, COPD, Hypothyroid, Breast Ca, CVA, GERD. Who presents to the ED for SOB, patient missed her dialysis session today. Patient denies CP, palpitations. Patient denies fever, chills, cough, TAM, dizziness, AP, N/V/D. (1) CHF exacerbation Assessment/Plan: -Dialysis as per nephrology -Nasal O2 PRN to keep SpO2>90% -Cardiology consult Problems reviewed: Yes Code(s): I50.9 - HEART FAILURE, UNSPECIFIED (2) Inguinal cyst Assessment/Plan: -Surgical consult -No operative intervention needed at this time -F/U imaging outpatient Problems reviewed: Yes Code(s): MMS0888 - (3) Hypokalemia Assessment/Plan: -Repeat labs in 2-3 days -Dialysis Problems reviewed: Yes Code(s): E87.6 - HYPOKALEMIA (4) COPD (chronic obstructive pulmonary disease) Assessment/Plan: -Pulmonary consult -COVID 19 PCR negative -Nasal O2 to keep SpO2>90% -Bronchodilators Problems reviewed: Yes Code(s): J44.9 - CHRONIC OBSTRUCTIVE PULMONARY DISEASE, UNSPECIFIED (5) ESRD (end stage renal disease) on dialysis Problems reviewed: Yes Code(s): N18.6 - END STAGE RENAL DISEASE; Z99.2 - DEPENDENCE ON RENAL DIALYSIS (6) Hyperkalemia Assessment/Plan: -resolved Problems reviewed: Yes Code(s): E87.5 - HYPERKALEMIA Assessment/Plan See problem list Constitutional: Yes: Well Nourished, No Distress, Calm Cardiovascular: Yes: Regular Rate and Rhythm Respiratory: Yes: Regular, CTA Bilaterally Gastrointestinal: Yes: Normal Bowel Sounds, Soft Renal/: Yes: Oliguria Musculoskeletal: Yes: Muscle Weakness Extremities: Yes: WNL Edema: No Peripheral Pulses WNL: Yes Neurological: Yes: Alert, Oriented Psychiatric: Yes: Alert, Oriented Labs: CBC, BMP 05/04/20 10:00 05/05/20 07:20 Discharge Summary Problems reviewed: Yes Reason For Visit: PULMONARY EDEMA END STAGE RENAL FAILURE ON DIALYSI Current Active Problems CAD (coronary artery disease) (Acute) CHF exacerbation (Acute) COPD (chronic obstructive pulmonary disease) (Acute) ESRD (end stage renal disease) on dialysis (Acute) Encounter for screening laboratory testing for COVID-19 virus (Acute) Fluid overload (Acute) GERD (gastroesophageal reflux disease) (Acute) HLD (hyperlipidemia) (Acute) HTN (hypertension) (Acute) Hyperkalemia (Acute) Hypokalemia (Acute) Inguinal cyst (Acute) Pulmonary edema (Acute) Condition: Stable - Instructions Referrals: Cj Rubin [Primary Care Provider] - - Home Medications Comprehensive Discharge Medication List: Ambulatory Orders Acetaminophen [Non-Aspirin Extra Strength] 1,000 mg PO BID 04/08/20 Aripiprazole 30 mg PO DAILY 04/08/20 Febuxostat [Uloric -] 40 mg PO DAILY 04/08/20 Furosemide 80 mg PO DAILY 04/08/20 Multivitamin 1 each PO DAILY 04/08/20 Pravastatin Sodium [Pravachol -] 40 mg PO HS 04/08/20 Quetiapine Fumarate [Seroquel -] 100 mg PO HS 04/08/20 Sevelamer Carbonate 800 mg PO DAILY 04/08/20 Acetaminophen [Tylenol .Regular Strength -] 650 mg PO Q6H PRN tablet 04/17/20 Pantoprazole Sodium [Protonix -] 40 mg PO DAILY tablet.ec 04/17/20 Simethicone [Mylicon -] 80 mg PO QID PRN tab.chew 04/17/20 Albuterol 2.5/Ipratropium 0.5 [Duoneb -] 1 neb IH QID 05/02/20 Amlodipine Besylate [Norvasc -] 10 mg PO DAILY 05/02/20 Bromfenac Sodium [Prolensa] 1 drop OU BID 05/02/20 Folic Acid 0.8 mg PO DAILY 05/02/20 Propranolol HCl [Propranolol HCl ER] 160 mg PO DAILY 05/02/20 Sucralfate [Carafate -] 1 gm PO QID 05/02/20 Prescription Drug Monitoring Program (I-STOP) results: I-STOP reviewed and no issues identified
[2020-05-05] MEDS: SUCRALFATE 1 GM TABLET (FP) PO SCH (10:58)
[2020-05-05] MEDS: MULTIVITAMINS (DAILY MVI) TABLET (FP) PO SCH (10:59)
[2020-05-05] MEDS: amLODIPine BESYLATE 5 MG TABLET (FP) PO SCH (10:59)
[2020-05-05] MEDS: PANTOPRAZOLE 40 MG TABLET PO SCH (10:59)
[2020-05-05] MEDS: ARIPiprazole 15 MG TABLET PO SCH (10:59)
[2020-05-05] MEDS: FEBUXOSTAT 40 MG TAB PO SCH (11:00)
[2020-05-05] MEDS ORDERED: POTASSIUM CHLORIDE TABS 20 MEQ TABLET.ER (FP) PO ONE (12:45)
[2020-05-05 13:08] VITALS: BP 131/63; PULSE 95; TEMP 98.1
== END 2020-05-05 14:08 | DRG 291 ==
LOC: JER 12:48 → JERBED 16:52 → J5S 20:13
PROVIDERS: ATTEND Family Medicine
PROC: 5A1D70Z Performance of Urinary Filtration, Intermittent, Less than 6 Hours Per Day (ICD-10-PCS; principal; 2020-05-02)
PROC: 5A1D70Z Performance of Urinary Filtration, Intermittent, Less than 6 Hours Per Day (ICD-10-PCS; 2020-05-03)
PROC: 5A1D70Z Performance of Urinary Filtration, Intermittent, Less than 6 Hours Per Day (ICD-10-PCS; 2020-05-04)
DX: I13.2 Hypertensive heart and chronic kidney disease with heart failure and with stage 5 chronic kidney disease, or end stage renal disease (principal); N18.6 End stage renal disease; J81.0 Acute pulmonary edema; I50.9 Heart failure, unspecified; Z99.2 Dependence on renal dialysis; I48.91 Unspecified atrial fibrillation; I25.10 Atherosclerotic heart disease of native coronary artery without angina pectoris; E78.5 Hyperlipidemia, unspecified; F31.9 Bipolar disorder, unspecified; G25.81 Restless legs syndrome; J44.9 Chronic obstructive pulmonary disease, unspecified; K21.9 Gastro-esophageal reflux disease without esophagitis; D64.9 Anemia, unspecified; E03.9 Hypothyroidism, unspecified; E87.5 Hyperkalemia; E87.6 Hypokalemia; M54.5 Low back pain; E87.70 Fluid overload, unspecified; Z85.3 Personal history of malignant neoplasm of breast; Z86.73 Personal history of transient ischemic attack (TIA), and cerebral infarction without residual deficits; Z98.84 Bariatric surgery status; Z95.5 Presence of coronary angioplasty implant and graft; Z87.11 Personal history of peptic ulcer disease
CPT/HCPCS: 36415; 71045-TC-FY; 80048; 80053; 83735; 83880; 84100; 84484; 85025; 85027; 85610; 85730; 93005; 93010; 93971-TC; 94640; 97116-GP; 97161-GP; 99291; C9803; P9047; Q2036; U0003